=== PATIENT | male | born 1965 | race Caucasian/White ===

== ENCOUNTER 2021-07-28 14:36 | Outpatient (REF) | payer MEDICARE, MEDICAID, SELFPAY ==
--- NOTE | ~2021-07-28 | US_ITS ---
EXAMINATION: US PELVIS LIMITED (BLADDER) CLINICAL INFORMATION: Frequent voiding. COMPARISON: CT abdomen and pelvis 01/30/2020 TECHNIQUE: Real-time imaging of the bladder. FINDINGS: BLADDER: There is mild diffuse bladder wall thickening. No stone or mass is seen. Bilateral ureteral jets are demonstrated. Prevoid bladder volume is 161 mL. Postvoid bladder volume is 17.5 mL. US/US bladder IMPRESSION: Mild diffuse bladder wall thickening.
== END 2021-07-28 14:37 | disposition home or self-care (01) ==
LOC: HO.HMGCX 14:36
PROVIDERS: PCP Internal Medicine; Visit Provider Internal Medicine
DX: R35.0 Frequency of micturition (principal)
CPT/HCPCS: 76857

== ENCOUNTER 2021-07-29 13:07 | Outpatient (REF) | payer MEDICARE, MEDICAID, SELFPAY ==
--- NOTE | ~2021-07-29 | XR_ITS ---
EXAMINATION: BILATERAL KNEE X-RAY CLINICAL INFORMATION: Pain COMPARISON: Previous left knee x-ray April 2018 TECHNIQUE: 4 views each knee FINDINGS: Bone alignment is normal. No fracture or dislocation is seen. There is arthritis at the medial femoral tibial and patellofemoral joints with joint space narrowing and osteophyte formation, right greater than left. There are osteophytes at the quadriceps tendon insertion and patellar tendon origins bilaterally. There is a moderate right joint effusion. There is evidence of atherosclerotic disease. XR/XR knee LT 4V IMPRESSION: Bilateral arthritis, right greater than left. Right joint effusion.
--- NOTE | ~2021-07-29 | XR_ITS ---
EXAMINATION: BILATERAL KNEE X-RAY CLINICAL INFORMATION: Pain COMPARISON: Previous left knee x-ray April 2018 TECHNIQUE: 4 views each knee FINDINGS: Bone alignment is normal. No fracture or dislocation is seen. There is arthritis at the medial femoral tibial and patellofemoral joints with joint space narrowing and osteophyte formation, right greater than left. There are osteophytes at the quadriceps tendon insertion and patellar tendon origins bilaterally. There is a moderate right joint effusion. There is evidence of atherosclerotic disease. XR/XR knee RT 4V IMPRESSION: Bilateral arthritis, right greater than left. Right joint effusion.
== END 2021-07-29 13:08 | disposition home or self-care (01) ==
LOC: HO.HMGCX 13:07
PROVIDERS: PCP Internal Medicine; Visit Provider Internal Medicine
DX: M25.562 Pain in left knee (principal); M25.561 Pain in right knee; M17.0 Bilateral primary osteoarthritis of knee; M25.461 Effusion, right knee
CPT/HCPCS: 73564

== ENCOUNTER 2021-08-31 10:05 | Outpatient (REF) | payer MEDICARE, MEDICAID, SELFPAY ==
[2021-08-31 18:42] LABS: Fentanyl, urine POSITIVE (Not Detect)
== END 2021-08-31 10:06 | disposition home or self-care (01) ==
LOC: HO.LNP 10:05
PROVIDERS: Visit Provider Internal Medicine
DX: F11.20 Opioid dependence, uncomplicated (principal); Z79.899 Other long term (current) drug therapy
CPT/HCPCS: 80305; 80307; 99202

== ENCOUNTER 2022-01-29 12:50 | Emergency (ER) | payer MEDICARE, MEDICAID, SELFPAY ==
--- NOTE | ~2022-01-29 | CT_ITS ---
EXAMINATION: CT ABDOMEN AND PELVIS WITHOUT CONTRAST CLINICAL INFORMATION: Abdominal pain COMPARISON: 01/30/2020 TECHNIQUE: Multidetector volumetric imaging was performed from the lung bases through the pubic symphysis. Sagittal and coronal reformatted images were obtained on the technologist workstation. This CT examination was performed using dose optimization techniques as appropriate, variously including the following: *Automated exposure control *Adjustment of mA and/or kV according to patient size (this includes techniques or standardized protocols for targeted exams where dose is matched to indication/reason for exam; i.e. extremities or head) *Use of iterative reconstruction technique DLP 954 FINDINGS: The lack of intravenous contrast limits evaluation of the solid visceral organs including the liver, spleen, pancreas, and kidneys. LUNG BASES: The visualized lung bases are unremarkable. LIVER, GALLBLADDER, AND BILIARY TREE: Limited non-contrast evaluation is normal. No gross focal hepatic lesion. Normal liver size and contour. No gross biliary ductal dilation. Dependent gallstones in an otherwise normal gallbladder. PANCREAS: Diffuse atrophy of the pancreas. No mass or peripancreatic inflammatory changes. SPLEEN: Limited non-contrast evaluation is normal. ADRENAL GLANDS: Normal; no adrenal mass. KIDNEYS AND URETERS: There is a 1.2 cm hyperdense lesion in the medial cortex of the upper pole the left kidney, density 45 Hounsfield units. No calculi or hydronephrosis. GASTROINTESTINAL TRACT: There is subtle fat stranding of the central mesentery. ABDOMINAL WALL: There is some stranding in the right lower quadrant subcutaneous fat typically seen in the setting of subcutaneous injections. LYMPH NODES: No pathologically enlarged lymph nodes in the abdomen or pelvis. VASCULAR: Normal caliber abdominal aorta. BLADDER: Unremarkable. PELVIC VISCERA: Metallic structures in the region of the perineum could represent brachytherapy seeds. Prostate not well seen either diminutive or surgically absent. OSSEOUS STRUCTURES: Severe degenerative arthrosis of the bilateral hips and sacroiliac joints. Prior posterior spinal decompression at L5-S1 with posterolateral bone graft material. CT/CT abdomen pelvis wo con IMPRESSION: There is subtle fat stranding in the central mesentery. Mesenteric adenitis could give this appearance. There is a 1.2 cm hyperdense lesion of the upper pole the left kidney. This is new/increased in conspicuity from the prior study 01/30/2020. Although it could represent a hyperdense cyst, density is indeterminate. Recommend nonemergent renal protocol CT or MRI for definitive evaluation. Cholelithiasis but no evidence of acute cholecystitis.
[2022-01-29 12:58] VITALS: BP 194/93; PULSE 113; RESP 18; TEMP 36.6; O2SAT 94; BMI 38.3
[2022-01-29 14:51] LABS: MANUAL DIFF FLAG NO
[2022-01-29 14:53] LABS: Basophils Percent Auto 0.3 % (0-2); Eosinophils Absolute Auto 0.1 X10*3/uL (0.0-0.4); Eosinophils Percent Auto 0.6 % (0-4); Hematocrit 39.8 % (42.0-52.0); Hemoglobin 12.4 g/dl (14.0-18.0); Imm Gran Abs Auto 0.05 X10*3/uL (0.00-0.03); Imm Gran Pct Auto 0.4 % (0.0-0.4); Lymphocytes Absolute Auto 1.5 X10*3/uL (1.2-4.9); Lymphocytes Percent Auto 12.2 % (20-40); Mean Corpuscular HGB Conc 31.2 g/dl (31.0-36.0); Mean Corpuscular Hemoglobin 25.9 pg (27.0-33.0); Mean Corpuscular Volume 83.1 fL (80.0-98.0); Mean Platelet Volume 11.9 fL (9.4-12.4); Monocytes Absolute Auto 0.7 X10*3/uL (0.1-1.2); Monocytes Percent Auto 5.6 % (2-11); Neutrophils Absolute Auto 9.6 x10*3/uL (2.0-8.3); Neutrophils Percent Auto 80.9 % (45-73); Platelet Count 188 X10*3/uL (160-400); Red Blood Count 4.79 X10*6/uL (4.60-5.80); Red Cell Distribution Width 14.5 % (11.0-16.0); White Blood Count 11.9 X10*3/uL (4.8-10.8)
[2022-01-29 14:56] LABS: Appearance Urine CLEAR; Color Urine YELLOW; Glucose Urine UA >=1000 MG/DL (NEG); Leukocyte Esterase Urine NEG (NEG); Nitrite Urine NEG (NEG); Specific Gravity - Urine <= 1.005 (1.005-1.025); UACC Culture Trigger NO; Urine Blood TRACE (NEG); Urine Ketones NEG (NEG); Urine Protein 1+ MG/DL (NEG-TRACE)
[2022-01-29 15:08] LABS: UACC CULT YES; WBC Urine 30-49 /HPF (0-4)
[2022-01-29 15:09] LABS: Bacteria Urine TRACE /LPF
[2022-01-29 15:14] LABS: Alanine Aminotransferase 13 U/L (0-40); Albumin Level 3.8 g/dL (3.5-5.0); Alkaline Phosphatase 110 U/L (39-117); Anion Gap 12 (12-20); Aspartate Amino Transferase 11 U/L (5-37); Bilirubin Direct 0.2 mg/dL (0.0-0.5); Bilirubin Total 0.4 mg/dL (0.0-1.0); Blood Urea Nitrogen 12 mg/dL (9-16); Calcium 9.1 mg/dL (8.4-10.2); Carbon Dioxide 30 mmol/L (22-29); Chloride 92 mmol/L (96-108); Creatinine Clr Calc Pharmacy 83.8; Estimated Glomerular Filt Rate > 60; Glucose Random 507 mg/dL (60-115); Lipase 5 U/L (8-78); Potassium 4.6 mmol/L (3.3-5.1); Sodium 129 mmol/L (135-145); Total Protein 7.5 g/dL (6.5-8.0)
--- NOTE | 2022-01-29 15:38 | ED.GENADULT ---
HPI - General Adult General Chief complaint: Abdominal Pain Stated complaint: abd pain Time Seen by Provider: 01/29/22 15:37 Source: patient Mode of arrival: ambulatory Limitations: no limitations History of Present Illness HPI narrative: 56-year-old male with a past medical history of insulin-dependent diabetes, hypertension, hyperlipidemia, prostate cancer, and opioid use disorder, presents for 3 days of abdominal pain. A 9 patient also states he has dysuria. Patient did not take his insulin today. No fevers. No back pain, no flank pain. States the pain in his lower abdomen is 10/10 pain. No penile discharge, penile lesions, testicular pain. Patient also reports a painful rash in his perineum. Patient is nauseous. Denies blurry vision, headache, increased hunger, endorses polydipsia at night Related Data Previous Rx's Medication Instructions Recorded buprenorphine 8 mg-naloxone 2 mg 3 film sublingual DAILY 7 days #21 08/31/21 sublingual film (Suboxone) ea clonidine HCl 0.1 mg tablet 0.1 mg PO TID 7 days #21 tabs 08/31/21 hydroxyzine pamoate 25 mg capsule 25 mg PO TID PRN itching #21 caps 08/31/21 (Vistaril) naloxone 4 mg/actuation nasal 4 mg intranasal Q3M PRN opioid 08/31/21 spray (Narcan) overdose 30 days #2 ea cephalexin 500 mg capsule 500 mg PO QID 7 days #28 caps 01/29/22 clotrimazole 1 % topical cream 1 appl topical BID apply to rash 01/29/22 in groin 2 weeks #45 grams ibuprofen 600 mg tablet 600 mg PO TID 30 days #90 tabs 01/29/22 Allergies Allergy/AdvReac Type Severity Reaction Status Date / Time No Known Allergies Allergy Unverified 04/24/20 16:07 [No Known Allergies*] Review of Systems Constitutional: Constitutional: Denies body ache(s), Denies chills, Reports fatigue, Denies fever(s), Denies headache(s), Denies malaise and Denies weakness Eyes: Eyes: Denies blurry vision and Denies diplopia ENT: Denies vertigo, Denies dizziness, Denies otalgia, Denies headache(s), Denies mouth pain, Denies post nasal drip, Denies sinus pain and Denies sore throat Cardiovascular: Cardiovascular: Denies chest pain, Denies syncope, Denies leg edema, Denies lightheadedness, Denies Loss of Consciousness, Denies palpitations and Denies dyspnea Respiratory: Respiratory: Denies chest congestion, Denies cough and Denies dyspnea Gastrointestinal: Gastrointestinal: Reports abdominal pain, Denies melena, Denies hematochezia, Denies change in stool character, Denies coffee ground emesis, Denies constipation, Denies diarrhea, Reports nausea and Denies vomiting Genitourinary: Genitourinary: Reports dysuria, Denies flank pain, Denies scrotal swelling, Denies testicular mass, Denies testicular pain, Reports urinary frequency and Reports urinary urgency Musculoskeletal: Musculoskeletal: Reports no additional musculoskeletal complaints and Denies back pain Neurologic: Denies confusion, Denies vertigo, Denies dizziness, Denies syncope, Denies headache(s) and Denies weakness Psychiatric: Psychiatric: Denies anxiety, Denies confusion and Denies depression Endocrine: Endocrine: Reports fatigue and Denies palpitations [facility] Past Medical History [facility] Narrative: Insulin-dependent diabetic Social History Social History Advance Directives: No Advance Directives Information Provided: No Physical Exam ED Vital Signs: Vital Signs - 24 hr 01/29/22 12:58 01/29/22 16:00 01/29/22 17:54 Temperature 98 F 98.7 F 98.7 F Pulse Rate 113 H 88 91 Respiratory Rate 18 16 16 Blood Pressure 194/93 H 175/85 H 128/82 Pulse Oximetry 94 98 98 Oxygen Delivery Method Room Air Room Air Room Air BMI result Body Mass Index 38.3 Const General: no acute distress, alert and awake; No confusion Nutritional Appearance: obese morbidly obese Orientation/consciousness: patient oriented x3 and No confusion Limitations: no limitations [facility] Head: Yes normal to inspection, Yes normocephalic and Yes atraumatic Ears: hearing grossly normal bilaterally, external ears normal, TM's normal bilaterally and EAC's normal General nose exam: Normal external nose present Face and sinus: Yes normal facial exam and Yes sinuses nontender Mouth: Normal oral and palatal mucosa present Throat: Yes posterior oropharynx normal Eyes Conjunctivae: conjunctivae normal Pupils: Equal, round and reactive pupils present EOM: EOMs intact bilaterally Neck Neck: Yes full ROM, Yes no lymphadenopathy and Yes supple Resp Effort & Inspection: normal respiratory effort and able to speak in complete sentences Auscultation: clear to auscultation bilaterally, no crackles, no rales, no rhonchi and no wheezes Cardio Rate: regular rate Rhythm: regular rhythm Heart sounds: S1 normal heart sound present and S2 normal heart sound present GI Inspection: Yes Abdominal panniculus present, Yes obesity and Yes striae Palpation (GI): Soft to palpation, Tenderness to palpation present (GI) (diffusely), no guarding and not rigid Percussion: Yes normal to percussion Auscultation: normal bowel sounds General: Yes no CVA tenderness Penis: normal penis and circumcised Meatus: meatus normal and no meatla discharge Scrotum: scrotum normal Testes: Testes normal Male genitals images: 1. Red rash with satellite lesions Back/Spine/Pelvis Back: no CVA tenderness Skin Other: Erythematous rash with satellite lesions and central clearing in patient's posterior scrotum and perineal area Rashes: rashes noted Neuro General: patient oriented x3 and No confusion Cranial nerves: Yes Equal, round and reactive pupils present Extrem General: Yes normal to inspection and Yes full ROM Psych Appearance: grossly normal Affect: normal affect Attitude: cooperative Thought process: Normal thought process present Course Course Course Narrative: 56-year-old male presents with 3 days of abdominal pain, dysuria and urinary frequency, and rash in his perineum. Patient did not take his insulin today On exam, patient has a erythematous rash in his perineal area with satellite lesions extending into his inguinal creases. Looks like candidiasis. Patient has tenderness and guarding across his entire abdomen. Afebrile. Patient intitially tachycardic, HR and BP normalized during his stay A will get urine, labs, lipase, will rule out DKA with VBG, acetone, will rule out STEMI with EKG, will get CT abdomen Reevaluation(s) Reevaluation #1: Llabs are remarkable for an elevated white blood cell count of 11.9, blood sugar of 507, a sodium of 129 that is most likely pseudohyponatremia. EKG is unremarkable No anion gap, acetone is negative, patient has no urine ketones, normal venous blood gas. This is not DKA 30-49 white blood cells in urine with trace blood and trace bacteria with glucosuria. CT shows possible mesenteric adenitis, which would explain patient's abdominal pain. Gave insulin, morphine, Zofran, fluids. On reexamination, patient is feeling better. Blood sugar is still high at 325. Will give another liter NS, repeat BMP shows sodium is now 131, patient's corrected sodium would be 135 Will have patient follow-up with his primary care provider, for his, mesenteric ischemia, and candidiasis UTI follow up with Urology Signed patient out to Michelle Christopher NP, pending 1 more liter fluid and repeat POC blood glucose., CT/CT abdomen pelvis wo con IMPRESSION: There is subtle fat stranding in the central mesentery. Mesenteric adenitis could give this appearance. There is a 1.2 cm hyperdense lesion of the upper pole the left kidney. This is new/increased in conspicuity from the prior study 01/30/2020. Although it could represent a hyperdense cyst, density is indeterminate. Recommend nonemergent renal protocol CT or MRI for definitive evaluation. ? ? Cholelithiasis but no evidence of acute cholecystitis. Medical Decision Making Lab Data Result diagrams: 01/29/22 14:31 01/29/22 16:37 Labs: Lab Results 01/29/22 01/29/22 01/29/22 Range/Units 14:31 14:31 14:31 WBC 11.9 H (4.8-10.8) X10*3/uL RBC 4.79 (4.60-5.80) X10*6/uL Hgb 12.4 L (14.0-18.0) g/dl Hct 39.8 L (42.0-52.0) % MCV 83.1 (80.0-98.0) fL MCH 25.9 L (27.0-33.0) pg MCHC 31.2 (31.0-36.0) g/dl RDW 14.5 (11.0-16.0) % Plt Count 188 (160-400) X10*3/uL MPV 11.9 (9.4-12.4) fL Immature Gran % (Auto) 0.4 (0.0-0.4) % Neut % (Auto) 80.9 H (45-73) % Lymph % (Auto) 12.2 L (20-40) % Summers % (Auto) 5.6 (2-11) % Eos % (Auto) 0.6 (0-4) % Baso % (Auto) 0.3 (0-2) % Lymph # (Auto) 1.5 (1.2-4.9) X10*3/uL Summers # (Auto) 0.7 (0.1-1.2) X10*3/uL Eos # (Auto) 0.1 (0.0-0.4) X10*3/uL Baso # (Auto) 0.0 (0.0-0.2) X10*3/uL Abs Immat Gran (auto) 0.05 H (0.00-0.03) X10*3/uL Absolute Neuts (auto) 9.6 H (2.0-8.3) x10*3/uL Absolute Nucleated RBC 0.000 (0.0-0.012) X10*3/uL Nucleated RBC % (auto) 0.0 (0.0-0.2) /100WBC VBG pH (7.32-7.43) VBG pCO2 mmHg VBG pO2 mmHg VBG HCO3 (22-26) mmol/L VBG O2 Saturation % VBG Base Excess mmol/L Sodium 129 L (135-145) mmol/L Potassium 4.6 (3.3-5.1) mmol/L Chloride 92 L (96-108) mmol/L Carbon Dioxide 30 H (22-29) mmol/L Anion Gap 12 (12-20) BUN 12 (9-16) mg/dL Creatinine 1.17 (0.5-1.4) mg/dL Estim Creat Clear Calc 83.8 Estimated GFR > 60 POC Glucose (60-115) mg/dL Random Glucose 507 H* (60-115) mg/dL Calcium 9.1 (8.4-10.2) mg/dL Total Bilirubin 0.4 (0.0-1.0) mg/dL Direct Bilirubin 0.2 (0.0-0.5) mg/dL AST 11 (5-37) U/L ALT 13 (0-40) U/L Alkaline Phosphatase 110 (39-117) U/L Total Protein 7.5 (6.5-8.0) g/dL Albumin 3.8 (3.5-5.0) g/dL Lipase 5 L (8-78) U/L Urine Color YELLOW Urine Appearance CLEAR Urine pH 7.0 (5.0-8.0) Ur Specific [place] <= 1.005 (1.005-1.025) Urine Protein 1+ H (NEG-TRACE) MG/DL Urine Glucose (UA) >=1000 H (NEG) MG/DL Urine Ketones NEG (NEG) MG/DL Urine Blood TRACE (NEG) Urine Nitrite NEG (NEG) Ur Leukocyte Esterase NEG (NEG) Urine RBC 1-4 (0) /HPF Urine WBC 30-49 H (0-4) /HPF Ur Squamous Epith Cells NONE /LPF Urine Bacteria TRACE /LPF Urine Yeast TRACE /HPF Acetone, Qual (Negative) 01/29/22 01/29/22 01/29/22 Range/Units 16:24 16:37 16:37 WBC (4.8-10.8) X10*3/uL RBC (4.60-5.80) X10*6/uL Hgb (14.0-18.0) g/dl Hct (42.0-52.0) % MCV (80.0-98.0) fL MCH (27.0-33.0) pg MCHC (31.0-36.0) g/dl RDW (11.0-16.0) % Plt Count (160-400) X10*3/uL MPV (9.4-12.4) fL Immature Gran % (Auto) (0.0-0.4) % Neut % (Auto) (45-73) % Lymph % (Auto) (20-40) % Summers % (Auto) (2-11) % Eos % (Auto) (0-4) % Baso % (Auto) (0-2) % Lymph # (Auto) (1.2-4.9) X10*3/uL Summers # (Auto) (0.1-1.2) X10*3/uL Eos # (Auto) (0.0-0.4) X10*3/uL Baso # (Auto) (0.0-0.2) X10*3/uL Abs Immat Gran (auto) (0.00-0.03) X10*3/uL Absolute Neuts (auto) (2.0-8.3) x10*3/uL Absolute Nucleated RBC (0.0-0.012) X10*3/uL Nucleated RBC % (auto) (0.0-0.2) /100WBC VBG pH 7.36 (7.32-7.43) VBG pCO2 55 mmHg VBG pO2 37 mmHg VBG HCO3 31 H (22-26) mmol/L VBG O2 Saturation 55.0 % VBG Base Excess 4.9 mmol/L Sodium 131 L (135-145) mmol/L Potassium 4.6 (3.3-5.1) mmol/L Chloride 92 L (96-108) mmol/L Carbon Dioxide 31 H (22-29) mmol/L Anion Gap 13 (12-20) BUN 11 (9-16) mg/dL Creatinine 1.28 (0.5-1.4) mg/dL Estim Creat Clear Calc 76.6 Estimated GFR 58 POC Glucose (60-115) mg/dL Random Glucose 494 H* (60-115) mg/dL Calcium 9.3 (8.4-10.2) mg/dL Total Bilirubin (0.0-1.0) mg/dL Direct Bilirubin (0.0-0.5) mg/dL AST (5-37) U/L ALT (0-40) U/L Alkaline Phosphatase (39-117) U/L Total Protein (6.5-8.0) g/dL Albumin (3.5-5.0) g/dL Lipase (8-78) U/L Urine Color Urine Appearance Urine pH (5.0-8.0) Ur Specific [place] (1.005-1.025) Urine Protein (NEG-TRACE) MG/DL Urine Glucose (UA) (NEG) MG/DL Urine Ketones (NEG) MG/DL Urine Blood (NEG) Urine Nitrite (NEG) Ur Leukocyte Esterase (NEG) Urine RBC (0) /HPF Urine WBC (0-4) /HPF Ur Squamous Epith Cells /LPF Urine Bacteria /LPF Urine Yeast /HPF Acetone, Qual Negative (Negative) 01/29/22 Range/Units 17:53 WBC (4.8-10.8) X10*3/uL RBC (4.60-5.80) X10*6/uL Hgb (14.0-18.0) g/dl Hct (42.0-52.0) % MCV (80.0-98.0) fL MCH (27.0-33.0) pg MCHC (31.0-36.0) g/dl RDW (11.0-16.0) % Plt Count (160-400) X10*3/uL MPV (9.4-12.4) fL Immature Gran % (Auto) (0.0-0.4) % Neut % (Auto) (45-73) % Lymph % (Auto) (20-40) % Summers % (Auto) (2-11) % Eos % (Auto) (0-4) % Baso % (Auto) (0-2) % Lymph # (Auto) (1.2-4.9) X10*3/uL Summers # (Auto) (0.1-1.2) X10*3/uL Eos # (Auto) (0.0-0.4) X10*3/uL Baso # (Auto) (0.0-0.2) X10*3/uL Abs Immat Gran (auto) (0.00-0.03) X10*3/uL Absolute Neuts (auto) (2.0-8.3) x10*3/uL Absolute Nucleated RBC (0.0-0.012) X10*3/uL Nucleated RBC % (auto) (0.0-0.2) /100WBC VBG pH (7.32-7.43) VBG pCO2 mmHg VBG pO2 mmHg VBG HCO3 (22-26) mmol/L VBG O2 Saturation % VBG Base Excess mmol/L Sodium (135-145) mmol/L Potassium (3.3-5.1) mmol/L Chloride (96-108) mmol/L Carbon Dioxide (22-29) mmol/L Anion Gap (12-20) BUN (9-16) mg/dL Creatinine (0.5-1.4) mg/dL Estim Creat Clear Calc Estimated GFR POC Glucose 325 H (60-115) mg/dL Random Glucose (60-115) mg/dL Calcium (8.4-10.2) mg/dL Total Bilirubin (0.0-1.0) mg/dL Direct Bilirubin (0.0-0.5) mg/dL AST (5-37) U/L ALT (0-40) U/L Alkaline Phosphatase (39-117) U/L Total Protein (6.5-8.0) g/dL Albumin (3.5-5.0) g/dL Lipase (8-78) U/L Urine Color Urine Appearance Urine pH (5.0-8.0) Ur Specific [place] (1.005-1.025) Urine Protein (NEG-TRACE) MG/DL Urine Glucose (UA) (NEG) MG/DL Urine Ketones (NEG) MG/DL Urine Blood (NEG) Urine Nitrite (NEG) Ur Leukocyte Esterase (NEG) Urine RBC (0) /HPF Urine WBC (0-4) /HPF Ur Squamous Epith Cells /LPF Urine Bacteria /LPF Urine Yeast /HPF Acetone, Qual (Negative) ECG Data Interpretation: Sinus at a rate of 87, [place] interval 150, QRS 82, QTC 476, normal axis, no ST depression or elevation, T-wave changes Discharge Plan Discharge Clinical Impression: Acute hyperglycemia, Loretta infection of genital region, Acute mesenteric ischemia, Acute UTI Patient Disposition: Home, Self-Care Instructions: Urinary Tract Infection in Men (ED), Mesenteric Adenitis (ED), Skin Yeast Infection (ED) Additional Instructions: Please call Urology, I have referred you to them, but I want you to call them if you do not hear from them by Tuesday afternoon at the following number: [phone] You have a urinary tract infection, I have prescribed antibiotics to your pharmacy. You also have inflamed lymph nodes in your abdomen, I have prescribed ibuprofen for this. Please call your primary care provider for follow-up appointment to evaluate the resolution of your symptoms In addition, I have prescribed a cream for the rash below your scrotum. Please apply it twice a day. Also follow-up with your primary care provider for this issue Please take your insulin daily as prescribed, please drink plenty of fluids, please return to emergency room if you have chest pain, shortness of breath, worsening abdominal pain, or any other new or concerning symptoms Prescriptions: New clotrimazole 1 % cream 1 appl topical BID 14 Days Qty: 45 0RF cephalexin 500 mg capsule 500 mg PO QID 7 Days Qty: 28 0RF ibuprofen 600 mg tablet 600 mg PO TID 30 Days Qty: 90 0RF No Action buprenorphine-naloxone [Suboxone] 8-2 mg film 3 film sublingual DAILY 7 Days Qty: 21 0RF Rx Instructions: place 1 strip/tab under (each) side of tongue naloxone [Narcan] 4 mg/actuation spray,non-aerosol 4 mg intranasal Q3M PRN (Reason: opioid overdose) 30 Days Qty: 2 0RF Rx Instructions: spray 1 dose into ONE nostril; alternate nostrils w each dose until help arrives hydroxyzine pamoate [Vistaril] 25 mg capsule 25 mg PO TID PRN (Reason: itching) Qty: 21 1RF clonidine HCl 0.1 mg tablet 0.1 mg PO TID 7 Days Qty: 21 1RF Referrals: Johnny Chung MD [Physician] -
[2022-01-29 16:00] VITALS: BP 175/85; PULSE 88; RESP 16; TEMP 37.1; O2SAT 98
--- NOTE | 2022-01-29 16:08 | ECG_ITS ---
Test Reason : abd pain Blood Pressure : / mmHG Vent. Rate : 087 BPM Atrial Rate : 087 BPM P-R Int : 158 ms QRS Dur : 082 ms QT Int : 396 ms P-R-T Axes : 042 075 039 degrees QTc Int : 476 ms Normal sinus rhythm Normal ECG When compared with ECG of 30-JAN-2020 02:43, No significant change was found Referred By: Lani Flowers Electronically Signed By:AYAN WAGNER MD
[2022-01-29] MEDS: Insulin Regular, Human 100 UNIT/ML 3 ML VIAL 10 UNIT IVPUSH (16:24)
[2022-01-29] MEDS: 0.9 % Sodium Chloride 1,000 ML 999 ML IV ×2 (16:25→18:27)
[2022-01-29] MEDS: Morphine Sulfate 4 MG/ML CARTRIDGE IVPUSH (16:27)
[2022-01-29] MEDS: ondansetron HCL 4 MG/2 ML VIAL IVPUSH (16:27)
[2022-01-29 16:40] LABS: Venous Blood Gas Refer to POC result
[2022-01-29 16:42] LABS: VBG Base Excess 4.9 mmol/L; VBG HCO3 31 mmol/L (22-26); VBG pCO2 55 mmHg; VBG pH 7.36 (7.32-7.43); VBG pO2 37 mmHg
[2022-01-29 16:50] LABS: Acetone, serum QL Negative (Negative)
[2022-01-29 17:54] VITALS: BP 128/82; PULSE 91; RESP 16; TEMP 37.1; O2SAT 98
[2022-01-29 18:01] LABS: Glucose, Whole Blood 325 mg/dL (60-115)
[2022-01-29 18:05] LABS: Anion Gap 13 (12-20); Blood Urea Nitrogen 11 mg/dL (9-16); Calcium 9.3 mg/dL (8.4-10.2); Carbon Dioxide 31 mmol/L (22-29); Chloride 92 mmol/L (96-108); Creatinine Clr Calc Pharmacy 76.6; Estimated Glomerular Filt Rate 58; Glucose Random 494 mg/dL (60-115); Potassium 4.6 mmol/L (3.3-5.1); Sodium 131 mmol/L (135-145)
== END 2022-01-29 20:05 | disposition home or self-care (01) ==
PROVIDERS: Physician Assistant; Emergency Provider Emergency Medicine Emergency Medical Services; PCP Internal Medicine
DX: E11.65 Type 2 diabetes mellitus with hyperglycemia (principal); N39.0 Urinary tract infection, site not specified; K55.059 Acute (reversible) ischemia of intestine, part and extent unspecified; R10.9 Unspecified abdominal pain; R11.0 Nausea; R21 Rash and other nonspecific skin eruption; I10 Essential (primary) hypertension; Z79.4 Long term (current) use of insulin; Z79.899 Other long term (current) drug therapy
CPT/HCPCS: 36415; 74176; 80048; 80076; 81001; 82009; 82803; 82947; 83690; 85025; 87086; 93005; 96361; 96374; 96375; 99284; J2270; J2405

== ENCOUNTER 2022-02-01 11:21 | Emergency (ER) | payer MEDICARE, MEDICAID, SELFPAY ==
--- NOTE | 2022-02-01 | ECG_ITS ---
Test Reason : dizzy Blood Pressure : / mmHG Vent. Rate : 092 BPM Atrial Rate : 092 BPM P-R Int : 152 ms QRS Dur : 074 ms QT Int : 358 ms P-R-T Axes : 019 064 033 degrees QTc Int : 442 ms Normal sinus rhythm Normal ECG When compared with ECG of 29-JAN-2022 16:21, No significant change was found Referred By: Generic ED Physician Electronically Signed By:MORA REESE
[2022-02-01 12:07] VITALS: BP 174/91; PULSE 94; RESP 18; TEMP 36.8; O2SAT 99; BMI 36.8
--- NOTE | 2022-02-01 12:23 | PC.NURSE ---
Pt approached this RN to report: I forgot to tell you before, but I go to the Methadone clinic in [place] .
[2022-02-01] MEDS: Ondansetron ODT 4 MG TAB.RAPDIS TRANSLINGU (19:32)
[2022-02-01 19:52] LABS: MANUAL DIFF FLAG NO
[2022-02-01 19:57] LABS: Basophils Percent Auto 0.2 % (0-2); Eosinophils Absolute Auto 0.1 X10*3/uL (0.0-0.4); Eosinophils Percent Auto 0.4 % (0-4); Hematocrit 44.6 % (42.0-52.0); Imm Gran Abs Auto 0.03 X10*3/uL (0.00-0.03); Imm Gran Pct Auto 0.2 % (0.0-0.4); Lymphocytes Absolute Auto 1.7 X10*3/uL (1.2-4.9); Lymphocytes Percent Auto 13.3 % (20-40); Mean Corpuscular HGB Conc 31.4 g/dl (31.0-36.0); Mean Corpuscular Volume 82.7 fL (80.0-98.0); Mean Platelet Volume 11.5 fL (9.4-12.4); Monocytes Absolute Auto 0.7 X10*3/uL (0.1-1.2); Monocytes Percent Auto 5.5 % (2-11); Neutrophils Percent Auto 80.4 % (45-73); Platelet Count 223 X10*3/uL (160-400); Red Blood Count 5.39 X10*6/uL (4.60-5.80); Red Cell Distribution Width 14.7 % (11.0-16.0); White Blood Count 12.5 X10*3/uL (4.8-10.8)
--- NOTE | 2022-02-01 19:59 | PC.NURSE ---
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 Pt reports that he takes Methadone 65mg at 11am daily. Pt vomiting, was given Zofran. Reports the pain and nausea and dizziness are worse! cnc lathe machine operator (Debra Strickland) aware.
[2022-02-01 20:12] LABS: Alanine Aminotransferase 11 U/L (0-40); Alkaline Phosphatase 105 U/L (39-117); Anion Gap 14 (12-20); Aspartate Amino Transferase 14 U/L (5-37); Bilirubin Total 0.4 mg/dL (0.0-1.0); Blood Urea Nitrogen 7 mg/dL (9-16); Calcium 9.3 mg/dL (8.4-10.2); Carbon Dioxide 28 mmol/L (22-29); Chloride 99 mmol/L (96-108); Creatinine Clr Calc Pharmacy 92.3; Estimated Glomerular Filt Rate > 60; Glucose Random 231 mg/dL (60-115); Potassium 4.3 mmol/L (3.3-5.1); Sodium 137 mmol/L (135-145); Total Protein 8.1 g/dL (6.5-8.0)
[2022-02-01 20:18] LABS: Troponin-I High Sensitivity < 3.5 ng/L (<3.5-35.0)
== END 2022-02-01 21:00 | disposition left against medical advice (07) ==
PROVIDERS: Emergency Provider Emergency Medicine; PCP Internal Medicine
DX: R42 Dizziness and giddiness (principal); R51.9 Headache, unspecified; Z79.899 Other long term (current) drug therapy
CPT/HCPCS: 36415; 80053; 84484; 85025; 93005; 99281; 99283

== ENCOUNTER 2022-02-03 12:43 | Emergency (ER) | payer MEDICARE, MEDICAID, SELFPAY ==
[2022-02-03 13:25] VITALS: BP 150/93; PULSE 89; RESP 20; TEMP 36.3; O2SAT 98; BMI 36.8
[2022-02-03 16:10] LABS: MANUAL DIFF FLAG NO
[2022-02-03 16:15] LABS: Basophils Percent Auto 0.2 % (0-2); Eosinophils Percent Auto 0.4 % (0-4); Hematocrit 39.6 % (42.0-52.0); Hemoglobin 12.6 g/dl (14.0-18.0); Imm Gran Abs Auto 0.03 X10*3/uL (0.00-0.03); Imm Gran Pct Auto 0.3 % (0.0-0.4); Lymphocytes Percent Auto 18.7 % (20-40); Mean Corpuscular HGB Conc 31.8 g/dl (31.0-36.0); Mean Corpuscular Hemoglobin 26.3 pg (27.0-33.0); Mean Corpuscular Volume 82.7 fL (80.0-98.0); Monocytes Absolute Auto 0.8 X10*3/uL (0.1-1.2); Monocytes Percent Auto 7.2 % (2-11); Neutrophils Absolute Auto 7.8 x10*3/uL (2.0-8.3); Neutrophils Percent Auto 73.2 % (45-73); Platelet Count 245 X10*3/uL (160-400); Red Blood Count 4.79 X10*6/uL (4.60-5.80); Red Cell Distribution Width 14.6 % (11.0-16.0); White Blood Count 10.6 X10*3/uL (4.8-10.8)
[2022-02-03 16:49] LABS: Alanine Aminotransferase 9 U/L (0-40); Albumin Level 3.9 g/dL (3.5-5.0); Alkaline Phosphatase 96 U/L (39-117); Anion Gap 12 (12-20); Aspartate Amino Transferase 13 U/L (5-37); Bilirubin Total 0.5 mg/dL (0.0-1.0); Blood Urea Nitrogen 13 mg/dL (9-16); Calcium 9.2 mg/dL (8.4-10.2); Carbon Dioxide 30 mmol/L (22-29); Chloride 96 mmol/L (96-108); Creatinine Clr Calc Pharmacy 86.4; Estimated Glomerular Filt Rate > 60; Glucose Random 298 mg/dL (60-115); Lipase < 4 U/L (8-78); Potassium 5.1 mmol/L (3.3-5.1); Sodium 133 mmol/L (135-145); Total Protein 7.5 g/dL (6.5-8.0)
[2022-02-03 22:00] VITALS: BP 142/89; PULSE 101; RESP 15; TEMP 36.9; O2SAT 98
--- NOTE | 2022-02-03 22:27 | ED_ITS ---
HPI - Abdominal Pain General Chief Complaint: Abdominal Pain Stated Complaint: catscan, abd pain Source: patient Mode of arrival: ambulatory Limitations: no limitations History of Present Illness HPI narrative: 56-year-old male presents with abdominal pain, states that he feels like he is a football in his abdomen. Has had this feeling for approximately 2 weeks. He is requesting a CT scan of his abdomen. He does not report any fevers, chills, chest pain or pressure, palpitations, shortness of breath, shortness breath on exertion, dizziness, lightheadedness, or weakness. MD elicited complaint: abdominal pain Pertinent past history: past UTI Onset (ago): week(s) (2) Pain Consistency: constant Location: diffuse Severity: moderate Quality: aching and fullness Radiation: none Migration to: no migration Exacerbating factors: eating and movement Relieving factors: nothing Associated symptoms: denies other symptoms Related Data Previous Rx's Medication Instructions Recorded buprenorphine 8 mg-naloxone 2 mg 3 film sublingual DAILY 7 days #21 08/31/21 sublingual film (Suboxone) ea clonidine HCl 0.1 mg tablet 0.1 mg PO TID 7 days #21 tabs 08/31/21 hydroxyzine pamoate 25 mg capsule 25 mg PO TID PRN itching #21 caps 08/31/21 (Vistaril) naloxone 4 mg/actuation nasal 4 mg intranasal Q3M PRN opioid 08/31/21 spray (Narcan) overdose 30 days #2 ea cephalexin 500 mg capsule 500 mg PO QID 7 days #28 caps 01/29/22 clotrimazole 1 % topical cream 1 appl topical BID apply to rash 01/29/22 in groin 2 weeks #45 grams ibuprofen 600 mg tablet 600 mg PO TID 30 days #90 tabs 01/29/22 cefuroxime axetil 500 mg tablet 500 mg PO Q12H 7 days #14 tabs 02/03/22 Allergies Allergy/AdvReac Type Severity Reaction Status Date / Time No Known Allergies Allergy Verified 02/01/22 12:12 [No Known Allergies*] Review of Systems Review of Systems Constitutional: No Fever, No Chills ENT/Mouth: No Ear Pain, No Hoarseness, No sore throat Eyes: No Eye Pain, No Swelling, No Redness, No Foreign Body Cardiovascular: No Chest Pain, No SOB Respiratory: No Cough, No Dyspnea Gastrointestinal: Positive Nausea, positive Vomiting, No Diarrhea, positive abdominal Pain Genitourinary: No Dysuria, No Hematuria Musculoskeletal: No joint pain, No Myalgias, No Joint Swelling Skin: No Skin lacerations, No rash Neuro: No Weakness, No Numbness, No Paresthesias, No Loss of Consciousness, No Dizziness, No Headache Psych: No Anxiety/Panic, No Depression Heme/Lymph: no easy bruising, no Lymphadenopathy Endocrine: No Polyuria, No Polydipsia Yes all other systems are reviewed and are negative [facility] Past Medical History Attestation statement: The following information was validated with the patient. Source: old records reviewed Medical History Opioid use disorder Social History Social History Advance Directives: No Physical Exam ED Vital Signs: Vital Signs - 24 hr 02/03/22 13:25 02/03/22 22:00 Temperature 97.3 F 98.4 F Pulse Rate 89 101 H Respiratory Rate 20 15 Blood Pressure 150/93 H 142/89 H Pulse Oximetry 98 98 Oxygen Delivery Method Room Air Room Air BMI result Body Mass Index 36.8 Appearance: Alert. Oriented X3. No acute distress. Eyes: Pupils equal, round and reactive to light. Sclera nonicteric. ENT: Pharynx normal. Neck: Normal inspection. Neck supple. CVS: Normal heart rate and rhythm. Pulses normal. Respiratory: No respiratory distress. Breath sounds normal. Abdomen: Soft , morbidly obese, diffusely tender without rigidity or distention or rebound. Skin: Skin warm and dry. Normal skin color. Normal skin turgor. Extremities: No lower extremity edema. Gait well-balanced well coordinated. Neuro: No motor deficit. No sensory deficit. Cranial nerves 2-12 intact. Course Course Course Narrative: 56-year-old male presents to the emergency department requesting a CT scan of his abdomen and pelvis. States that he has had abdominal pain for approximately 2 weeks, and was referred to the emergency department by his primary care physician. His primary care physician could not see him today. Upon investigation of medical records, it was noted that he was evaluated on 01/29 and 01/31, with a CT scan of abdomen pelvis that showed mesenteric adenitis and was treated for UTI. He states that he is not taking any of his medications. He is looking for pain management. He does have a history of opioid abuse and is on buprenorphine. His CT scan was reviewed from 01/31 with some mild stranding consistent with possible mesenteric adenitis. His lab values are unremarkable, his white count has improved since his last visit on 01/31. I did offer to repeat CT scan of abdomen and pelvis per patient request, however he said that he is not interested because he was not offered pain management. At this time I do not feel narcotics are reasonable solution for this problem, and patient respectfully declined CT scan. Will treat with cefuroxime as it is twice a day versus Keflex which is 4 times per day. I feel that cefuroxime may improve his medication compliance. He does understand that he must stop taking the Keflex while taking the cefuroxime. RN also had multiple discussions with this patient, patient did verbalize understanding and agrees with plan. CT scan and fluids discontinued. MDM - Abdominal Pain Differential Diagnosis Differential diagnosis: Likely abdominal pain, acute appendicitis, calculus of kidney and constipation Medical Records Attestation: I reviewed the patient's medical records. Lab Data Attestation: I reviewed the patient's lab results. Result diagrams: 02/03/22 16:07 02/03/22 16:07 Labs: Lab Results 02/03/22 02/03/22 02/03/22 Range/Units 16:07 16:07 22:31 WBC 10.6 (4.8-10.8) X10*3/uL RBC 4.79 (4.60-5.80) X10*6/uL Hgb 12.6 L (14.0-18.0) g/dl Hct 39.6 L (42.0-52.0) % MCV 82.7 (80.0-98.0) fL MCH 26.3 L (27.0-33.0) pg MCHC 31.8 (31.0-36.0) g/dl RDW 14.6 (11.0-16.0) % Plt Count 245 (160-400) X10*3/uL MPV 11.0 (9.4-12.4) fL Immature Gran % (Auto) 0.3 (0.0-0.4) % Neut % (Auto) 73.2 H (45-73) % Lymph % (Auto) 18.7 L (20-40) % [place] % (Auto) 7.2 (2-11) % Eos % (Auto) 0.4 (0-4) % Baso % (Auto) 0.2 (0-2) % Lymph # (Auto) 2.0 (1.2-4.9) X10*3/uL [place] # (Auto) 0.8 (0.1-1.2) X10*3/uL Eos # (Auto) 0.0 (0.0-0.4) X10*3/uL Baso # (Auto) 0.0 (0.0-0.2) X10*3/uL Abs Immat Gran (auto) 0.03 (0.00-0.03) X10*3/uL Absolute Neuts (auto) 7.8 (2.0-8.3) x10*3/uL Absolute Nucleated RBC 0.000 (0.0-0.012) X10*3/uL Nucleated RBC % (auto) 0.0 (0.0-0.2) /100WBC Sodium 133 L (135-145) mmol/L Potassium 5.1 (3.3-5.1) mmol/L Chloride 96 (96-108) mmol/L Carbon Dioxide 30 H (22-29) mmol/L Anion Gap 12 (12-20) BUN 13 D (9-16) mg/dL Creatinine 1.11 (0.5-1.4) mg/dL Estim Creat Clear Calc 86.4 Estimated GFR > 60 Random Glucose 298 H (60-115) mg/dL Calcium 9.2 (8.4-10.2) mg/dL Total Bilirubin 0.5 (0.0-1.0) mg/dL AST 13 (5-37) U/L ALT 9 (0-40) U/L Alkaline Phosphatase 96 (39-117) U/L Total Protein 7.5 (6.5-8.0) g/dL Albumin 3.9 (3.5-5.0) g/dL Lipase < 4 L (8-78) U/L Urine Color YELLOW Urine Appearance CLEAR Urine pH 5.5 (5.0-8.0) Ur Specific [place] >= 1.030 H (1.005-1.025) Urine Protein 2+ H (NEG-TRACE) MG/DL Urine Glucose (UA) 500 H (NEG) MG/DL Urine Ketones 15 (NEG) MG/DL Urine Blood TRACE (NEG) Urine Nitrite NEG (NEG) Ur Leukocyte Esterase NEG (NEG) Urine RBC 0-2 (0) /HPF Urine WBC 0-2 (0-4) /HPF Ur Squamous Epith Cells 2+ /LPF Calcium Phosphate Cryst 1+ /LPF Urine Bacteria TRACE /LPF Granular Casts 0-2 /LPF Urine Mucus 2+ /LPF Urine Sperm NOTED Discharge Plan Discharge Clinical Impression: Acute mesenteric adenitis, Abdominal pain Patient Disposition: Home, Self-Care Instructions: Abdominal Pain (ED), Mesenteric Adenitis (ED) Additional Instructions: You were evaluated for abdominal pain. CT scan that was completed on 01/31/2022 indicates mesenteric adenitis. Your lab values are unremarkable. We are treating you with cefuroxime 500 mg twice a day for the next 7 days. Please take this antibiotic as directed. Follow-up with primary care provider as needed. Drink plenty of fluids. Thank you for choosing this emergency department for evaluation. Please follow-up with primary care physician as needed. Return to the emergency department for any new, concerning, or worsening symptoms. Prescriptions: New cefuroxime axetil 500 mg tablet 500 mg PO Q12H 7 Days Qty: 14 0RF No Action clotrimazole 1 % cream 1 appl topical BID 14 Days Qty: 45 0RF cephalexin 500 mg capsule 500 mg PO QID 7 Days Qty: 28 0RF ibuprofen 600 mg tablet 600 mg PO TID 30 Days Qty: 90 0RF buprenorphine-naloxone [Suboxone] 8-2 mg film 3 film sublingual DAILY 7 Days Qty: 21 0RF Rx Instructions: place 1 strip/tab under (each) side of tongue naloxone [Narcan] 4 mg/actuation spray,non-aerosol 4 mg intranasal Q3M PRN (Reason: opioid overdose) 30 Days Qty: 2 0RF Rx Instructions: spray 1 dose into ONE nostril; alternate nostrils w each dose until help arrives hydroxyzine pamoate [Vistaril] 25 mg capsule 25 mg PO TID PRN (Reason: itching) Qty: 21 1RF clonidine HCl 0.1 mg tablet 0.1 mg PO TID 7 Days Qty: 21 1RF Interventions: ED Discharge Assessment Last Done: 02/03/22 23:15 Discharge Date/Time: 02/03/22 23:15
[2022-02-03 22:43] LABS: Appearance Urine CLEAR; Color Urine YELLOW; Glucose Urine UA 500 MG/DL (NEG); Leukocyte Esterase Urine NEG (NEG); Nitrite Urine NEG (NEG); PH 5.5 (5.0-8.0); Specific Gravity - Urine >= 1.030 (1.005-1.025); UACC Culture Trigger NO; Urine Blood TRACE (NEG); Urine Ketones 15 MG/DL (NEG); Urine Protein 2+ MG/DL (NEG-TRACE)
[2022-02-03 23:44] LABS: Bacteria Urine TRACE /LPF; Calcium Phosphate Crystals Ur 1+ /LPF; Granular Casts Urine 0-2 /LPF; Mucus Urine 2+ /LPF; RBC Urine 0-2 /HPF (0); Sperm Urine NOTED; Squamous Epithelial Cell Urine 2+ /LPF; WBC Urine 0-2 /HPF (0-4)
== END 2022-02-03 23:15 | disposition home or self-care (01) ==
PROVIDERS: Emergency Provider Internal Medicine; PCP Internal Medicine
DX: R10.9 Unspecified abdominal pain (principal); R59.0 Localized enlarged lymph nodes; F11.20 Opioid dependence, uncomplicated
CPT/HCPCS: 36415; 80053; 81001; 81003; 83690; 85025; 96360; 99284

== ENCOUNTER 2022-04-04 16:41 | Inpatient (IN) | payer MEDICARE, MEDICAID, SELFPAY ==
--- NOTE | ~2022-04-04 | US_ITS ---
EXAMINATION: US Arterial Duplex Le Bi CLINICAL INFORMATION: Bilateral low extremity swelling. Left toe necrosis. COMPARISON: None TECHNIQUE: Color and spectral Doppler assessment was obtained through the arteries of both lower extremities. FINDINGS: RIGHT Peak systolic velocities (centimeters per second): MORTGAGE PROCESSOR: 126.0 cm/s Proximal profunda femoral artery: 115 Proximal SFA: 120 Mid SFA: 112 Distal SFA: 111 Popliteal artery: 106 FRAME STYLIST: 165 Waveforms: MORTGAGE PROCESSOR: Triphasic Proximal profunda femoral artery: Biphasic Proximal SFA: Triphasic Mid SFA: Triphasic Distal SFA: Triphasic Popliteal artery: Triphasic FRAME STYLIST: Triphasic Above findings indicate mild stenoses at the common femoral artery and posterior tibial artery LEFT Peak systolic velocities (centimeters per second): MORTGAGE PROCESSOR: 148 cm/s Proximal profunda femoral artery: 77 Proximal SFA: 168 Mid SFA: 184 Distal SFA: 138 Popliteal artery: 104 FRAME STYLIST: 162 Waveforms: MORTGAGE PROCESSOR: Triphasic Proximal profunda femoral artery: Biphasic Proximal SFA: Triphasic Mid SFA: Triphasic Distal SFA: Monophasic Popliteal artery: Triphasic FRAME STYLIST: Monophasic Above findings demonstrate mild stenoses at the common femoral artery, proximal superficial femoral artery, mid superficial femoral artery, distal superficial femoral artery, and posterior tibial artery. US/US arterial duplex LE BI IMPRESSION: Patency of the bilateral lower extremity arterial systems from the level of the common femoral arteries through the posterior tibial arteries with mild multifocal stenoses, left side greater than right.
--- NOTE | ~2022-04-04 | US_ITS ---
EXAMINATION: US VENOUS ULTRASOUND WITH DOPPLER LOWER EXTREMITY, BILATERAL CLINICAL INFORMATION: Right left leg pain and swelling. Left toe necrosis. Question DVT. COMPARISON: Bilateral lower extremity venous ultrasound 12/22/2018 TECHNIQUE: Ultrasound of the deep veins is performed from the hip to the calf with compression sonography and color and pulse Doppler assessment. Spectral analysis with color-flow imaging is performed. FINDINGS: RIGHT: There is normal venous compression and respiratory variation and augmented flow. The visualized common femoral vein, superficial femoral vein, profunda femoral vein, popliteal vein, and the trifurcation region shows no evidence of deep venous thrombosis. Small 4.8 x 0.9 x 2.3 cm Bakers cyst. LEFT: There is normal venous compression and respiratory variation and augmented flow. The visualized common femoral vein, superficial femoral vein, profunda femoral vein, popliteal vein, and the trifurcation region shows no evidence of deep venous thrombosis. There is no significant popliteal fossa cyst. 3 prominent left inguinal lymph nodes are identified, measuring 2.9 x 1.2 x 1.5 cm, 3.4 x 1.4 x 2.8 cm, and 1 x 1.1 x 1.1 cm. Lymph nodes demonstrate normal fatty da and are presumably reactive. If the patient's symptoms persist, followup ultrasound in 5 days 7 days might be of value to exclude proximal propagation from a non-visualized calf vein. US/US venous duplex LE IMPRESSION: 1. No DVT demonstrated in the bilateral lower extremities. 2. Prominent presumably reactive left inguinal lymph nodes. 3. Small right Coates's cyst.
--- NOTE | ~2022-04-04 | XR_ITS ---
EXAMINATION: XR CHEST CLINICAL INFORMATION: Lower extremity swelling with fourth and fifth toe necrosis. Preop COMPARISON: Chest x-ray 03/20/2019 TECHNIQUE: 2 views of the chest were obtained. FINDINGS: The lungs are clear. No airspace consolidation, pleural effusion, or pneumothorax. The cardiomediastinal silhouette is within normal limits. No acute osseous injury. XR/XR chest 2V IMPRESSION: Unremarkable examination.
--- NOTE | ~2022-04-04 | IR_ITS ---
PROCEDURE: IR INSERTION OF TUNNEL CATHETER CLINICAL INFORMATION: Kim for IV antibiotics. Renal dysfunction. COMPARISON: None. TECHNIQUE: Following explaining fluoroscopy and ultrasound-guided placement of Kim catheter with a left-sided approach, procedure, benefits and risks, a written consent was obtained. Patient was placed supine on fluoroscopy table in angiography suite and preliminary ultrasound imaging of the right and left neck was obtained. An optimal site was selected along the left neck and marked. The marked site was cleaned and draped in the usual sterile manner. 1% lidocaine was injected at the puncture site. Under sterile ultrasound guidance, a single wall needle was advanced and the left internal jugular vein was punctured. After obtaining venous return, a thin guidewire was advanced and placed in the SVC and needle withdrawn. A 5 Czech dilator with sheath was advanced over the guidewire and anchored to the drape with hemostats. Approximately 1 gauze length away from the left neck incision and the anterior chest wall, 1% lidocaine was injected. Sensorcaine with epinephrine was then injected along the subcutaneous tract from the left neck incision to the left anterior chest wall incision. Permacath attached to a blind tunneler was advanced from the left anterior chest wall to the left neck incision. The tunneler was then pulled from the left neck incision with the catheter. The catheter was initially flushed with saline. The existent left neck wire and the dilator were removed and a longer 0.035 J-wire was advanced through the sheath into the IVC under fluoroscopy guidance. A 5 Czech peel-away sheath with dilator was advanced over the guidewire. The guidewire and the dilator were removed. The Kim catheter was then advanced through the peel-away sheath into the SVC under fluoroscopy. The peel-away sheath was removed as the catheter was advanced. The tip of the catheter lies at the atriocaval junction. The PICC catheter was flushed with heparinized saline. Simple dressing was placed over the left anterior neck and the anterior chest wall incision sites. Patient tolerated the procedure extremely well. All elements of maximal sterile barrier technique followed including use of cap, mask, sterile gown, sterile gloves, a sterile full body drape and hand hygiene. Also followed skin preparation with 2% chlorhexidine for cutaneous antisepsis, and sterile ultrasound preparation with sterile gel and probe cover when applicable. Conscious sedation was utilized during the exam and patient monitored by IR nursing and the radiologist for 25 minutes. FINDINGS: On preliminary ultrasound imaging, there is widely patent jugular veins with the left jugular vein appearing slightly larger. A 42 cm long single-lumen 5 Czech Kim catheter was placed under ultrasound fluoroscopy guidance without immediate complications. IR/IR cvc insert central tunnel IMPRESSION: Successful insertion of 5 Czech tunneled Kim catheter under fluoroscopy and ultrasound. Fluoroscopy time: 0.9 minutes. Dose area product: 616 cGy-cm2.
--- NOTE | ~2022-04-04 | CT_ITS ---
EXAMINATION: CT FOOT WITHOUT CONTRAST, LEFT CLINICAL INFORMATION: Left/5th toe necrosis. COMPARISON: None TECHNIQUE: Multidetector volumetric imaging was obtained through the left foot without contrast material. Multiplanar reformatted images in coronal and sagittal orientations were submitted. This CT examination was performed using dose optimization techniques as appropriate, variously including the following: *Automated exposure control. *Adjustment of mA and/or kV according to patient size (this includes techniques or standardized protocols for targeted exams where dose is matched to indication/reason for exam; i.e. extremities or head). *Use of iterative reconstruction technique. DLP: 187 mGy-cm FINDINGS: There is gas throughout the subacromial soft tissues at the 4th toe in addition to intraosseous gas occupying the medullary canal at the middle phalanx and the base of the proximal phalanx. There is a transverse fracture through the proximal phalangeal head at the PIP joints with intra-articular extension. The dorsal cortex of the proximal phalangeal head appears eroded in this region. There is overlying soft tissue swelling and attenuation which may correspond to a wound or phlegmon. The gas extends proximally in the soft tissues around the extensor tendons of the 4th toe and in the plantar soft tissues around the plantar interosseous muscles and lumbricals to the level of the midfoot (TMT joints). No subcutaneous gas within the ankle and hindfoot. No discrete fluid collections are identified. There is diffuse atrophy and fatty replacement of the intrinsic foot musculature. Soft tissues are diffusely swollen and edematous throughout the foot and ankle. Aside from the 4th toe, the phalanges are unremarkable. No additional fractures are identified. There is mild multifocal osteoarthritis in the midfoot with non-uniform joint space narrowing and marginal osteophytes. More [id number] osteoarthritis in the talonavicular joint with cortical irregularity. Additional moderate osteoarthritis at the subtalar joint and [id number] osteoarthritis in the talocrural joint. 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 Large enthesopathic spurs are present at the Achilles tendon insertion and plantar fascial origin on the calcaneus. Calcific atherosclerosis. CT/CT foot LT wo con IMPRESSION: 1. Gas within the soft tissues of the 4th toe and within the medullary spaces of the proximal and middle phalanges, concerning for infection and/or necrosis. There is a superimposed fracture of the proximal phalanx at its distal margin. Focal osseous erosion of the proximal phalanx along its dorsal margin near the PIP joint raises the possibility of osteomyelitis. 2. No appreciable fluid collections on these images. Gas extends proximally along the extensor tendon to the level of the mid metatarsals and the flexor musculature to the level of the tarsometatarsal joints.
[2022-04-04 16:54] VITALS: BP 147/60; BP 176/90; PULSE 96; RESP 20; TEMP 37.1; O2SAT 95; O2SAT 96; BMI 35.2
[2022-04-04 17:03] LABS: Glucose, Whole Blood 267 mg/dL (60-115)
[2022-04-04 18:01] LABS: Basophils Percent Auto 0.2 % (0-2); Eosinophils Percent Auto 0.1 % (0-4); Hematocrit 28.3 % (42.0-52.0); Imm Gran Pct Auto 0.5 % (0.0-0.4); Lymphocytes Absolute Auto 0.8 X10*3/uL (1.2-4.9); Lymphocytes Percent Auto 4.3 % (20-40); Mean Corpuscular HGB Conc 31.8 g/dl (31.0-36.0); Mean Corpuscular Hemoglobin 26.3 pg (27.0-33.0); Mean Corpuscular Volume 82.7 fL (80.0-98.0); Mean Platelet Volume 10.1 fL (9.4-12.4); Monocytes Absolute Auto 0.9 X10*3/uL (0.1-1.2); Monocytes Percent Auto 4.8 % (2-11); Neutrophils Absolute Auto 16.8 x10*3/uL (2.0-8.3); Neutrophils Percent Auto 90.1 % (45-73); Platelet Count 306 X10*3/uL (160-400); Red Blood Count 3.42 X10*6/uL (4.60-5.80); Red Cell Distribution Width 13.8 % (11.0-16.0); SCAN SMEAR FLAG 1; White Blood Count 18.6 X10*3/uL (4.8-10.8)
--- NOTE | 2022-04-04 18:06 | ED_ITS ---
HPI - Extremity Problem General Chief complaint: Wound/Laceration Stated complaint: necrotic toe Time Seen by Provider: 04/04/22 17:06 Source: patient Mode of arrival: ambulatory Limitations: no limitations History of Present Illness HPI Narrative: 56-year-old male with a past medical history of insulin-dependent diabetes, hypertension, hyperlipidemia, prostate cancer in opioid use disorder presenting to the ED with complaints of 3 days of left 4th toe necrotic with foul odor with purulent discharge and erythema surrounding the rest of the foot going up to the leg and bilateral lower extremity edema. He denies any fevers, chills, dizziness, headaches, neck pain/stiffness, trouble swallowing or breathing, c hest pain or shortness of breath, dyspnea on exertion, orthopnea, palpitations, paresthesias, recent falls or trauma, nausea/vomiting/diarrhea constipation, black or bloody stools, recent travel or sick contacts, calf tenderness or any other complaints concerns or injuries at this time. MD Complaint: other (left Fourth toe necrotic/foul odor with lower extremity swelling bilaterally) Onset (ago): day(s) (3) Pain Consistency: constant Location: left and toe (Fourth toe) Severity scale (1-10): >10 Quality: aching and constant Radiation: proximal Relieving factors: nothing Exacerbating factors: range of motion, weight bearing, walking and palpation Associated symptoms: denies other symptoms Related Data Previous Rx's Medication Instructions Recorded buprenorphine 8 mg-naloxone 2 mg 3 film sublingual DAILY 7 days #21 08/31/21 sublingual film (Suboxone) ea clonidine HCl 0.1 mg tablet 0.1 mg PO TID 7 days #21 tabs 08/31/21 hydroxyzine pamoate 25 mg capsule 25 mg PO TID PRN itching #21 caps 08/31/21 (Vistaril) naloxone 4 mg/actuation nasal 4 mg intranasal Q3M PRN opioid 08/31/21 spray (Narcan) overdose 30 days #2 ea cephalexin 500 mg capsule 500 mg PO QID 7 days #28 caps 01/29/22 clotrimazole 1 % topical cream 1 appl topical BID apply to rash 01/29/22 in groin 2 weeks #45 grams ibuprofen 600 mg tablet 600 mg PO TID 30 days #90 tabs 01/29/22 cefuroxime axetil 500 mg tablet 500 mg PO Q12H 7 days #14 tabs 02/03/22 Allergies Allergy/AdvReac Type Severity Reaction Status Date / Time No Known Allergies Allergy Verified 02/01/22 12:12 [No Known Allergies*] Review of Systems Review of Systems: Constitutional : No Weight loss, No Fever, No Chills, No Night Sweats, No Fatigue, No Malaise ENT/Mouth : No Hearing loss, No Ear Pain, No Nasal Congestion, No Sinus Pain, No Hoarseness, No sore throat, No Rhinorrhea, No Swallowing Difficulty Eyes: No Eye Pain, No Swelling, No Redness, No Foreign Body, No Discharge, No Vision Changes Cardiovascular : No Chest Pain, No SOB, No Dyspnea on Exertion, No Orthopnea, + bilateral lower extremity Edema, No Palpitations Respiratory : No Cough, No Sputum, No Wheezing, No Smoke Exposure, No Dyspnea Gastrointestinal : No Nausea, No Vomiting, No Diarrhea, No Constipation, No abdominal Pain, No Hematochezia, No Melena Genitourinary : no irregular bleeding, No Dysuria, No Urinary Frequency, No Hematuria, No Urinary Incontinence, No Urgency, No Flank Pain, No Urinary Flow Changes, No Hesitancy Musculoskeletal : + left foot/leg/toe pains, No Myalgias, No Joint Swelling Skin : + necrotic told to left 4th toe, erythema to left foot going up the left leg, no additional skin lesions/rashes/necrosis noted Neuro : No Weakness, No Numbness, No Paresthesias, No Loss of Consciousness, No Dizziness, No Headache Psych : No Anxiety/Panic, No Depression, No SI/HI/AH/VH, No Social Issues, Heme/Lymph: No Bruising, No Bleeding,No Lymphadenopathy Endocrine : No Polyuria, No Polydipsia, No Temperature Intolerance Yes all other systems are reviewed and are negative [facility] Past Medical History Attestation statement: The following information was validated with the patient. Source: old records reviewed and nursing notes reviewed Medical History Diabetes Opioid use disorder Social History Social History Patient Tobacco Use Status: Never used Tobacco Use of substances other than those prescribed or required for medical reasons: No Advance Directives: No Advance Directives Information Provided: Yes Physical Exam Vital Signs: Vital Signs: Last Vital Signs Temp 98.6 F 04/04/22 20:07 Pulse 80 04/04/22 20:07 Resp 18 04/04/22 20:07 BP 123/71 04/04/22 20:07 Pulse Ox 95 04/04/22 20:07 O2 Del Method 04/04/22 18:36 BMI result Body Mass Index 35.2 vital signs have been reviewed as normal and appeared to be correct. Blood pressure 147/60. Heart rate normal. Respiration rate normal. Temperature normal. Oxygen saturation normal. Appearance: Alert. Oriented X3. No acute distress. Head: Normal external exam. Normocephalic. Atraumatic. Eyes: PERRLA. EOMI. Conjunctiva and sclera normal. Eyelids normal. ENT: Pharynx normal. Uvula midline. Moist mucous membranes. No lesions/ulcerations or masses noted on the tongue. Normal voice. No trismus noted. No drooling noted. No muffled voice noted. Neck: Normal inspection. Neck supple. FROM. No adenopathy. Thyroid Normal. No meningeal signs. No neck mass noted. CVS: Normal heart rate and rhythm. Heart sound normal. Pulses normal throughout. No murmurs/rales/gallops. Respiratory: No respiratory distress. Painless inspiration. Breath sounds normal. No wheezes/rales/rhonchi noted. No accessory muscle usage noted or decreased air movement noted. Abdomen: Soft and nontender. Nondistended. No guarding. No rigidity. Bowel sounds normal in all 4 quadrants. No distention noted. No organomegaly noted. No visible injury noted. Back: Full range of motion noted. Nontender. Skin: Skin warm and dry. Normal skin color. Normal skin turgor. No rashes/l esions/lacerations noted. Extremities: Patient bilateral lower extremity edema. To left foot patient has moderate erythema and to the left 4th toe the toe is completely necrotic extending proximally up the foot. On the sole of the foot the 5th toe appears necrotic. The sole of the foot at the metatarsal aspect patient has purulent discharge/abscess underlying the 2nd/3rd/4th and 5th toes. No calf tenderness noted bilaterally. Otherwise all other extremities exhibit normal range of motion nontender. Neuro: Oriented X 3. No motor deficit. No sensory deficit. Reflexes normal. Normal steady gait. No focal neuro deficits noted. CN's II-XII intact bilaterally? Vascular: + radial pulses/+ 2 distal pedal pulses/+2 dorsalis pedis b/l. Normal cap refill. No cyanosis noted to upper extremity nails and lower extremity toes nails. Course Course Course Narrative: 17:15pm - 56-year-old male with a past medical history of insulin-dependent diabetes, hypertension, hyperlipidemia, prostate cancer in opioid use disorder presenting to the ED with complaints of 3 days of left 4th toe necrotic with foul odor with purulent discharge and erythema surrounding the rest of the foot going up to the leg and bilateral lower extremity edema. On exam patient has necrotic 4th left toe and on the sole of the foot it appears to be extending into the 5th toe with purulent drainage underlying the 2nd/3nd/4th and 5th metatarsals. Plan: Will obtain labs, blood cultures, lactic acid, CT scan of left foot, chest x-ray, EKG. Start IV fluids, IV Zosyn and vancomycin and re-evaluate. Reevaluation(s) Reevaluation #1: - labs reviewed patient an elevated white blood cell count 93244. - Anemia with an H&H of 9.0/28.3 this is new when compared to prior. Although patient denies any bleeding. - ESR 114. - chloride 94 - carbon dioxide 30 - calcium 7.9 - alkaline phosphate 184 - CRP 29.90 - albumin 2.9 - Random glucose 267. - Lactic acid 1.2. - otherwise all other labs are within normal limits - chest x-ray within normal limits no acute processes noted. - CT scan of left foot revealed Gas within the soft tissues of the 4th toe and within the medullary spaces of the proximal and middle phalanges, concerning for infection and/or necrosis. There is a superimposed fracture of the proximal phalanx at its distal margin. Focal osseous erosion of the proximal phalanx along its dorsal margin near the PIP joint raises the possibility of osteomyelitis. - venous duplex ultrasound of left lower extremity negative for DVT although revealed left inguinal lymph nodes that are prominent and all small right Coates cyst. - therefore at this time Dr. Simmons will be admitting for surgery tonight patient understands agrees with this plan. - arterial ultrasound of left lower extremity still pending Dr. Simmons to follow this ultrasound. ? Time: 21:04 [facility] - Extremity (Nontraumatic) Medical Records Attestation: I reviewed the patient's medical records. Lab Data Attestation: I reviewed the patient's lab results. Result diagrams: 04/04/22 17:52 04/04/22 17:53 Labs: Lab Results 04/04/22 04/04/22 04/04/22 Range/Units 16:59 17:51 17:52 WBC 18.6 H (4.8-10.8) X10*3/uL RBC 3.42 L D (4.60-5.80) X10*6/uL Hgb 9.0 L D (14.0-18.0) g/dl Hct 28.3 L D (42.0-52.0) % MCV 82.7 (80.0-98.0) fL MCH 26.3 L (27.0-33.0) pg MCHC 31.8 (31.0-36.0) g/dl RDW 13.8 (11.0-16.0) % Plt Count 306 (160-400) X10*3/uL MPV 10.1 (9.4-12.4) fL Immature Gran % (Auto) 0.5 H (0.0-0.4) % Neut % (Auto) 90.1 H (45-73) % Lymph % (Auto) 4.3 L (20-40) % [place] % (Auto) 4.8 (2-11) % Eos % (Auto) 0.1 (0-4) % Baso % (Auto) 0.2 (0-2) % Lymph # (Auto) 0.8 L (1.2-4.9) X10*3/uL [place] # (Auto) 0.9 (0.1-1.2) X10*3/uL Eos # (Auto) 0.0 (0.0-0.4) X10*3/uL Baso # (Auto) 0.0 (0.0-0.2) X10*3/uL Abs Immat Gran (auto) 0.10 H (0.00-0.03) X10*3/uL Absolute Neuts (auto) 16.8 H (2.0-8.3) x10*3/uL Absolute Nucleated RBC 0.000 (0.0-0.012) X10*3/uL Nucleated RBC % (auto) 0.0 (0.0-0.2) /100WBC Smear Tech's Comments VERIFIED ESR (0-15) MM/HR PT (10.0-13.1) SEC INR (0.9-1.1) APTT (26.0-36.4) SEC Sodium (135-145) mmol/L Potassium (3.3-5.1) mmol/L Chloride (96-108) mmol/L Carbon Dioxide (22-29) mmol/L Anion Gap (12-20) BUN (9-16) mg/dL Creatinine (0.5-1.4) mg/dL Estim Creat Clear Calc Estimated GFR POC Glucose 267 H (60-115) mg/dL Random Glucose (60-115) mg/dL Lactic Acid 1.2 (0.5-2.0) mmol/L Calcium (8.4-10.2) mg/dL Magnesium (1.6-2.6) mg/dL Total Bilirubin (0.0-1.0) mg/dL AST (5-37) U/L ALT (0-40) U/L Alkaline Phosphatase (39-117) U/L Troponin I High Sens (<3.5-35.0) ng/L C-Reactive Protein (< or = 0.50) mg/dL B-Natriuretic Peptide (<100) pg/mL Total Protein (6.5-8.0) g/dL Albumin (3.5-5.0) g/dL COVID-19 (JOSE DAVID) (Negative) COVID-19 Clin Com 04/04/22 04/04/22 04/04/22 Range/Units 17:52 17:53 17:53 WBC (4.8-10.8) X10*3/uL RBC (4.60-5.80) X10*6/uL Hgb (14.0-18.0) g/dl Hct (42.0-52.0) % MCV (80.0-98.0) fL MCH (27.0-33.0) pg MCHC (31.0-36.0) g/dl RDW (11.0-16.0) % Plt Count (160-400) X10*3/uL MPV (9.4-12.4) fL Immature Gran % (Auto) (0.0-0.4) % Neut % (Auto) (45-73) % Lymph % (Auto) (20-40) % [place] % (Auto) (2-11) % Eos % (Auto) (0-4) % Baso % (Auto) (0-2) % Lymph # (Auto) (1.2-4.9) X10*3/uL [place] # (Auto) (0.1-1.2) X10*3/uL Eos # (Auto) (0.0-0.4) X10*3/uL Baso # (Auto) (0.0-0.2) X10*3/uL Abs Immat Gran (auto) (0.00-0.03) X10*3/uL Absolute Neuts (auto) (2.0-8.3) x10*3/uL Absolute Nucleated RBC (0.0-0.012) X10*3/uL Nucleated RBC % (auto) (0.0-0.2) /100WBC Smear Tech's Comments ESR 114 H (0-15) MM/HR PT 15.6 H (10.0-13.1) SEC INR 1.3 H (0.9-1.1) APTT 29.8 (26.0-36.4) SEC Sodium 135 (135-145) mmol/L Potassium 3.7 D (3.3-5.1) mmol/L Chloride 94 L (96-108) mmol/L Carbon Dioxide 30 H (22-29) mmol/L Anion Gap 15 (12-20) BUN 11 (9-16) mg/dL Creatinine 0.96 (0.5-1.4) mg/dL Estim Creat Clear Calc 97.8 Estimated GFR > 60 POC Glucose (60-115) mg/dL Random Glucose 282 H (60-115) mg/dL Lactic Acid (0.5-2.0) mmol/L Calcium 7.9 L D (8.4-10.2) mg/dL Magnesium 1.9 (1.6-2.6) mg/dL Total Bilirubin 0.3 (0.0-1.0) mg/dL AST 24 D (5-37) U/L ALT 23 (0-40) U/L Alkaline Phosphatase 184 H D (39-117) U/L Troponin I High Sens (<3.5-35.0) ng/L C-Reactive Protein 29.90 H (< or = 0.50) mg/dL B-Natriuretic Peptide (<100) pg/mL Total Protein 6.5 (6.5-8.0) g/dL Albumin 2.9 L D (3.5-5.0) g/dL COVID-19 (JOSE DAVID) (Negative) COVID-19 Clin Com 04/04/22 04/04/22 Range/Units 17:53 17:53 WBC (4.8-10.8) X10*3/uL RBC (4.60-5.80) X10*6/uL Hgb (14.0-18.0) g/dl Hct (42.0-52.0) % MCV (80.0-98.0) fL MCH (27.0-33.0) pg MCHC (31.0-36.0) g/dl RDW (11.0-16.0) % Plt Count (160-400) X10*3/uL MPV (9.4-12.4) fL Immature Gran % (Auto) (0.0-0.4) % Neut % (Auto) (45-73) % Lymph % (Auto) (20-40) % [place] % (Auto) (2-11) % Eos % (Auto) (0-4) % Baso % (Auto) (0-2) % Lymph # (Auto) (1.2-4.9) X10*3/uL [place] # (Auto) (0.1-1.2) X10*3/uL Eos # (Auto) (0.0-0.4) X10*3/uL Baso # (Auto) (0.0-0.2) X10*3/uL Abs Immat Gran (auto) (0.00-0.03) X10*3/uL Absolute Neuts (auto) (2.0-8.3) x10*3/uL Absolute Nucleated RBC (0.0-0.012) X10*3/uL Nucleated RBC % (auto) (0.0-0.2) /100WBC Smear Tech's Comments ESR (0-15) MM/HR PT (10.0-13.1) SEC INR (0.9-1.1) APTT (26.0-36.4) SEC Sodium (135-145) mmol/L Potassium (3.3-5.1) mmol/L Chloride (96-108) mmol/L Carbon Dioxide (22-29) mmol/L Anion Gap (12-20) BUN (9-16) mg/dL Creatinine (0.5-1.4) mg/dL Estim Creat Clear Calc Estimated GFR POC Glucose (60-115) mg/dL Random Glucose (60-115) mg/dL Lactic Acid (0.5-2.0) mmol/L Calcium (8.4-10.2) mg/dL Magnesium (1.6-2.6) mg/dL Total Bilirubin (0.0-1.0) mg/dL AST (5-37) U/L ALT (0-40) U/L Alkaline Phosphatase (39-117) U/L Troponin I High Sens 11.9 D (<3.5-35.0) ng/L C-Reactive Protein (< or = 0.50) mg/dL B-Natriuretic Peptide 66 (<100) pg/mL Total Protein (6.5-8.0) g/dL Albumin (3.5-5.0) g/dL COVID-19 (JOSE DAVID) Negative (Negative) COVID-19 Clin Com See Note Imaging Data Chest x-ray: Attestation: I personally reviewed and interpreted this imaging study as follows: Radiologist's impression: FINDINGS: The lungs are clear. No airspace consolidation, pleural effusion, or pneumothorax. The cardiomediastinal silhouette is within normal limits. No acute osseous injury. XR/XR chest 2V IMPRESSION: Unremarkable examination. CT scan of left foot: Attestation: I personally reviewed and interpreted this imaging study as follows: Radiologist's impression: FINDINGS: There is gas throughout the subacromial soft tissues at the 4th toe in addition to intraosseous gas occupying the medullary canal at the middle phalanx and the base of the proximal phalanx. There is a transverse fracture through the proximal phalangeal head at the PIP joints with intra-articular extension. The dorsal cortex of the proximal phalangeal head appears eroded in this region. There is overlying soft tissue swelling and attenuation which may correspond to a wound or phlegmon. The gas extends proximally in the soft tissues around the extensor tendons of the 4th toe and in the plantar soft tissues around the plantar interosseous muscles and lumbricals to the level of the midfoot (TMT joints). No subcutaneous gas within the ankle and hindfoot. No discrete fluid collections are identified. There is diffuse atrophy and fatty replacement of the intrinsic foot musculature. Soft tissues are diffusely swollen and edematous throughout the foot and ankle. Aside from the 4th toe, the phalanges are unremarkable. No additional fractures are identified. There is mild multifocal osteoarthritis in the midfoot with non-uniform joint space narrowing and marginal osteophytes. More upyb-[id number] osteoarthritis in the talonavicular joint with cortical irregularity. Additional moderate osteoarthritis at the subtalar joint and dzzn-ss-[id number] osteoarthritis in the talocrural joint. 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 Large enthesopathic spurs are present at the Achilles tendon insertion and plantar fascial origin on the calcaneus. Calcific atherosclerosis. CT/CT foot LT wo con IMPRESSION: 1. Gas within the soft tissues of the 4th toe and within the medullary spaces of the proximal and middle phalanges, concerning for infection and/or necrosis. There is a superimposed fracture of the proximal phalanx at its distal margin. Focal osseous erosion of the proximal phalanx along its dorsal margin near the PIP joint raises the possibility of osteomyelitis. ? 2. No appreciable fluid collections on these images. Gas extends proximally along the extensor tendon to the level of the mid metatarsals and the flexor musculature to the level of the tarsometatarsal joints. Venous duplex ultrasound of bilateral lower extremity: Attestation: I personally reviewed and interpreted this imaging study as follows: Radiologist's impression: FINDINGS: RIGHT: There is normal venous compression and respiratory variation and augmented flow. The visualized common femoral vein, superficial femoral vein, profunda femoral vein, popliteal vein, and the trifurcation region shows no evidence of deep venous thrombosis. ? Small 4.8 x 0.9 x 2.3 cm Bakers cyst. LEFT: There is normal venous compression and respiratory variation and augmented flow. The visualized common femoral vein, superficial femoral vein, profunda femoral vein, popliteal vein, and the trifurcation region shows no evidence of deep venous thrombosis. ? There is no significant popliteal fossa cyst. 3 prominent left inguinal lymph nodes are identified, measuring 2.9 x 1.2 x 1.5 cm, 3.4 x 1.4 x 2.8 cm, and 1 x 1.1 x 1.1 cm. Lymph nodes demonstrate normal fatty da and are presumably reactive. If the patient's symptoms persist, followup ultrasound in 5 days 7 days might be of value to exclude proximal propagation from a non-visualized calf vein. US/US venous duplex LE IMPRESSION: 1.? No DVT demonstrated in the bilateral lower extremities. 2.? Prominent presumably reactive left inguinal lymph nodes. 3.? Small right Coates's cyst. Critical Care Time Critical Care Time Critical Care Time: Yes Total Critical Care Time: 60 Attestation: I personally attest to this time spent taking care of the patient Discharge Plan Discharge Clinical Impression: Toe necrosis, Osteomyelitis Patient Disposition: Admitted As Inpatient
[2022-04-04 18:09] LABS: INTERNATIONAL NORM RATIO 1.3 (0.9-1.1); Prothrombin Time 15.6 SEC (10.0-13.1)
[2022-04-04 18:12] LABS: Partial Thromboplastin Time 29.8 SEC (26.0-36.4)
[2022-04-04 18:12] LABS: MANUAL DIFF FLAG SCAN
[2022-04-04 18:15] LABS: Lactic Acid 1.2 mmol/L (0.5-2.0)
[2022-04-04 18:18] LABS: Alanine Aminotransferase 23 U/L (0-40); Albumin Level 2.9 g/dL (3.5-5.0); Alkaline Phosphatase 184 U/L (39-117); Anion Gap 15 (12-20); Aspartate Amino Transferase 24 U/L (5-37); Bilirubin Total 0.3 mg/dL (0.0-1.0); Blood Urea Nitrogen 11 mg/dL (9-16); Calcium 7.9 mg/dL (8.4-10.2); Carbon Dioxide 30 mmol/L (22-29); Chloride 94 mmol/L (96-108); Creatinine Clr Calc Pharmacy 97.8; Estimated Glomerular Filt Rate > 60; Glucose Random 282 mg/dL (60-115); Magnesium 1.9 mg/dL (1.6-2.6); Potassium 3.7 mmol/L (3.3-5.1); Sodium 135 mmol/L (135-145); Total Protein 6.5 g/dL (6.5-8.0)
[2022-04-04 18:22] LABS: COVID-19 Test Negative (Negative); IDNOW Serial# 16C4AD1C
[2022-04-04 18:25] LABS: B Type Natriuretic Peptide 66 pg/mL (<100); Troponin-I High Sensitivity 11.9 ng/L (<3.5-35.0)
[2022-04-04] MEDS: Piperacillin Sodium/Tazobactam 2.25 GM in 0.9 % Sodium Chloride 50 ML IV (18:29)
[2022-04-04] MEDS: 0.9 % Sodium Chloride 1,983 ML 1983 ML IV (18:30)
[2022-04-04 18:34] LABS: Erythrocyte Sedimentation Rate 114 MM/HR (0-15)
[2022-04-04 18:35] LABS: SLIDE REVIEW VERIFIED
[2022-04-04 18:36] VITALS: BP 148/67; PULSE 91; RESP 18; O2SAT 97
[2022-04-04 20:07] VITALS: BP 123/71; PULSE 80; RESP 18; TEMP 37; O2SAT 95
--- NOTE | 2022-04-04 20:53 | P.HPGS_ITS ---
History of Present Illness History of Present Illness Date of Service: 04/04/22 Chief complaint: infection Narrative: Ulysses Acevedo is a 56 year old male who is diabetic who noticed yesterday his left toe was sick and it was worse today so he came into the ER. He denies any trauma to the area but has no sensation in the foot. He says his diabetes is usually well controlled. he says he does have pain in the left foot and it feels better hanging off the bed. he does not work. he has not had a wound on his foot before. Review of Systems Review of Systems: Yes all other systems are reviewed and are negative Constitutional: Constitutional: Reports as per [facility] Past Medical History Medical History Diabetes Opioid use disorder Social History Social History Patient Tobacco Use Status: Never used Tobacco Use of substances other than those prescribed or required for medical reasons: No Advance Directives: No Advance Directives Information Provided: Yes Travel History Ebola Risk: Travel/Contact With Anyone From Affected Area/s: No Has Patient Experienced Ebola Symptoms: No I have personally reviewed the patient's Ebola risk: No Recent Travel in [facility] Within the Last 8 Weeks: No Meds Allergies Allergy/AdvReac Type Severity Reaction Status Date / Time No Known Allergies Allergy Verified 02/01/22 12:12 [No Known Allergies*] Active Medications: Current Medications Pharmacy Consult (Consult Rx Perform Med Rec) 1 each MISCELLANE ONCE PRN PRN Reason: Consult order Physical Exam Vital Signs: Vital Signs: Last Vital Signs Temp 98.6 F 04/04/22 20:07 Pulse 80 04/04/22 20:07 Resp 18 04/04/22 20:07 BP 123/71 04/04/22 20:07 Pulse Ox 95 04/04/22 20:07 O2 Del Method 04/04/22 18:36 BMI result Body Mass Index 35.2 Const: General: cooperative and acute distress mild Orientation/consciousness: oriented to person, oriented to place and oriented to time HEENT: Head: Yes normal to inspection Resp: Auscultation: clear to auscultation bilaterally Cardio: Rate: regular rate Rhythm: regular rhythm Neuro: General: oriented to person, oriented to place and oriented to time Extrem: Other: right foot within normal limits - stron palpable Dp pulse, no sig swelling left foot and lower leg with swelling nd erythema - the 4th toe is gangrenous and with black dry color, the dorsal aspect of the foot is edematous no palpable DP , the plantar aspect shows erythema and discoloration along the metatarsal heads of 3-5 and boggy tissue, nontender but he has no sensation, he has bad odor coming from the foot Psych: Appearance: grossly normal Affect: normal affect Attitude: cooperative Thought process: Normal thought process present Results Results Labs: Short CBC 04/04/22 Range/Units 17:52 WBC 18.6 H (4.8-10.8) X10*3/uL Hgb 9.0 L D (14.0-18.0) g/dl Hct 28.3 L D (42.0-52.0) % Plt Count 306 (160-400) X10*3/uL BMP 04/04/22 17:53 Sodium 135 Potassium 3.7 D Chloride 94 L Carbon Dioxide 30 H BUN 11 Creatinine 0.96 Calcium 7.9 L D Liver Function 04/04/22 Range/Units 17:53 Total Bilirubin 0.3 (0.0-1.0) mg/dL AST 24 D (5-37) U/L ALT 23 (0-40) U/L Alkaline Phosphatase 184 H D (39-117) U/L Albumin 2.9 L D (3.5-5.0) g/dL Assessment and Plan (1) Diabetic infection of left foot: Status: Acute Plan 56 year old male with diabetic foot infection with CT scan showing gangrenous tissue of 4th toe and gas in plantar midfoot, wbc elevated t 18 - plan to take to the OR and do toe amp nd foot debridement. culture, iv antibx, glucose control, will need to review his arterial study on the left side as there is concern for compromise here too tonight we are dealing with the emergent gas gangrene infection pt understands and agrees with the above plan and wishes to proceed with amputa tion Quality Stroke Does the patient have a stroke diagnosis?: No VTE Prior VTE?: No VTE Risk Level:: Surgical - moderate VTE Device Contraindication: Treatment Not Indicated VTE Drug Contraindication: N/A - Med Ordered Procedures Date of Service Date of Service: 04/04/22
--- NOTE | 2022-04-04 20:57 | HO.ANESPROP2 ---
HPI - Anesthesia Eval Consult details Narrative: 4th toe gangrene PMFSH Active Problems Active Problems: All Active Problems (Updated 04/04/22 @ 18:46 by STACY Ross) Toe necrosis (Acute) Osteomyelitis (Acute) Opioid use disorder (Acute) Past Medical History Medical History Diabetes Opioid use disorder Family History Family history of problems with anesthesia: No Surgical History History of Problems with Anesthesia: No Social History Social History Patient Tobacco Use Status: Never used Tobacco Use of substances other than those prescribed or required for medical reasons: No Advance Directives: No Advance Directives Information Provided: Yes Meds Allergies Allergy/AdvReac Type Severity Reaction Status Date / Time No Known Allergies Allergy Verified 02/01/22 12:12 [No Known Allergies*] Active Medications: Current Medications Pharmacy Consult (Consult Rx Perform Med Rec) 1 each MISCELLANE ONCE PRN PRN Reason: Consult order Exam Exam Date and Time: April 04, 20222056 Height,Weight and Vital Signs: Height 5 ft 7 in Weight 102.058 kg Last Vital Signs Temp 98.6 F 04/04/22 20:07 Pulse 80 04/04/22 20:07 Resp 18 04/04/22 20:07 BP 123/71 04/04/22 20:07 Pulse Ox 95 04/04/22 20:07 O2 Del Method 04/04/22 18:36 Pertinent Lab Results Pertinent Lab Results: Laboratory Tests 04/04/22 04/04/22 04/04/22 16:59 17:51 17:52 WBC 18.6 H RBC 3.42 L D Hgb 9.0 L D Hct 28.3 L D MCV 82.7 MCH 26.3 L MCHC 31.8 RDW 13.8 Plt Count 306 MPV 10.1 Immature Gran % (Auto) 0.5 H Neut % (Auto) 90.1 H Lymph % (Auto) 4.3 L [place] % (Auto) 4.8 Eos % (Auto) 0.1 Baso % (Auto) 0.2 Lymph # (Auto) 0.8 L [place] # (Auto) 0.9 Eos # (Auto) 0.0 Baso # (Auto) 0.0 Abs Immat Gran (auto) 0.10 H Absolute Neuts (auto) 16.8 H Absolute Nucleated RBC 0.000 Nucleated RBC % (auto) 0.0 Smear Tech's Comments VERIFIED ESR PT INR APTT Sodium Potassium Chloride Carbon Dioxide Anion Gap BUN Creatinine Estim Creat Clear Calc Estimated GFR POC Glucose 267 H Random Glucose Lactic Acid 1.2 Calcium Magnesium Total Bilirubin AST ALT Alkaline Phosphatase Troponin I High Sens C-Reactive Protein B-Natriuretic Peptide Total Protein Albumin COVID-19 (JOSE DAVID) COVID-19 Clin Com 04/04/22 04/04/22 04/04/22 17:52 17:53 17:53 WBC RBC Hgb Hct MCV MCH MCHC RDW Plt Count MPV Immature Gran % (Auto) Neut % (Auto) Lymph % (Auto) [place] % (Auto) Eos % (Auto) Baso % (Auto) Lymph # (Auto) [place] # (Auto) Eos # (Auto) Baso # (Auto) Abs Immat Gran (auto) Absolute Neuts (auto) Absolute Nucleated RBC Nucleated RBC % (auto) Smear Tech's Comments ESR 114 H PT 15.6 H INR 1.3 H APTT 29.8 Sodium 135 Potassium 3.7 D Chloride 94 L Carbon Dioxide 30 H Anion Gap 15 BUN 11 Creatinine 0.96 Estim Creat Clear Calc 97.8 Estimated GFR > 60 POC Glucose Random Glucose 282 H Lactic Acid Calcium 7.9 L D Magnesium 1.9 Total Bilirubin 0.3 AST 24 D ALT 23 Alkaline Phosphatase 184 H D Troponin I High Sens C-Reactive Protein 29.90 H B-Natriuretic Peptide Total Protein 6.5 Albumin 2.9 L D COVID-19 (JOSE DAVID) COVID-19 Clin Com 04/04/22 04/04/22 17:53 17:53 WBC RBC Hgb Hct MCV MCH MCHC RDW Plt Count MPV Immature Gran % (Auto) Neut % (Auto) Lymph % (Auto) [place] % (Auto) Eos % (Auto) Baso % (Auto) Lymph # (Auto) [place] # (Auto) Eos # (Auto) Baso # (Auto) Abs Immat Gran (auto) Absolute Neuts (auto) Absolute Nucleated RBC Nucleated RBC % (auto) Smear Tech's Comments ESR PT INR APTT Sodium Potassium Chloride Carbon Dioxide Anion Gap BUN Creatinine Estim Creat Clear Calc Estimated GFR POC Glucose Random Glucose Lactic Acid Calcium Magnesium Total Bilirubin AST ALT Alkaline Phosphatase Troponin I High Sens 11.9 D C-Reactive Protein B-Natriuretic Peptide 66 Total Protein Albumin COVID-19 (JOSE DAVID) Negative COVID-19 Clin Com See Note Airway Mallampati Class: II TM Dist: >3cm Neck ROM: Full Loose/Missing/Broken Teeth: No Heart: RRR Lungs: CTA Assessment and Plan Assessment Anesthesia Assessment: Anesthesia Plan Discussed and Chart Reviewed Final Anesthetic Review Family History of Problems with Anesthesia: No History of Problems with Anesthesia: No NPO: Yes ASA Class: III and Emergency Final Preanesthetic Review: No Changes in Pt Med Stat, Meds/Allgs Chart Reviewed, Consent Obtained/Reviewed and Anes Risks/Benef Reviewed Patient Risk: Intermediate Procedure Risk: Low Anesthetic Plan Anesthetic Plan: MAC: Disposition: Standard PACU
[2022-04-04 22:25] VITALS: BP 95/56; PULSE 82; RESP 15; TEMP 36.6; O2SAT 100
[2022-04-04 22:40] VITALS: BP 137/66; PULSE 80; RESP 16; TEMP 36.9; O2SAT 95
--- NOTE | 2022-04-04 22:41 | P.OP_ITS ---
Operative Note Operative Note Date of Service: 04/04/22 Narrative: pre op- left diabetic foot infection with 4th toe postop- same procedure - ampuation of left 4th toe and debridement of plantar foot infection surgeon- sarah [facility] pt presented with elevated wbc and foot smelling with 4th left toe and plantar foot infection. now to OR pt came to OR and was sedated. left foot prepped and draped in standard fashion - the left 4th toe was ampuated with scalpel down to metatarsal bone and bone cutter used to cut the bone. went to viable helathy tissue. an area adjacent did track to plantar area. the plantar area was discolored and swollen and purplish so an area here along the 4th metarsal was opened up - some murky fluid released but not much of anything. no further tracking. the area was irrigated and a marge drain left along the track from the toe to the plantar area. the open toe area packed with betadine saline gazue and kerlex roll and MOAN. cx was taken of the toe and plantar area and sent. toe sent for pathology. pt tolerated the procedure well and instrument count and sharps correct at the end of the case pt returned stable to PACU
[2022-04-04 23:55] VITALS: BP 142/71; PULSE 76; RESP 18; TEMP 36.6; O2SAT 95
[2022-04-05] VITALS (7 sets, daily range): BP systolic 136–188; BP diastolic 58–90; PULSE 82–101; RESP 17–18; TEMP 36.3–37.4; O2SAT 95–97
[2022-04-05] MEDS: Enoxaparin Sodium 40 MG/0.4 ML SYRINGE SUBCUT ×2 (00:08→22:16)
[2022-04-05] MEDS: Piperacillin Sodium/Tazobactam 3.375 GM in 0.9 % Sodium Chloride 50 ML IV ×5 (00:09→23:33)
[2022-04-05] MEDS: 0.9 % Sodium Chloride Flush 3 ML SYRINGE IVFLUSH ×3 (00:09→15:31)
[2022-04-05] MEDS: oxyCODONE HCl Immed Release 5 MG TABLET 10 MG PO (02:20)
[2022-04-05] MEDS: ondansetron HCL 4 MG/2 ML VIAL IVPUSH ×2 (04:59→19:13)
[2022-04-05 05:01] LABS: Glucose, Whole Blood 171 mg/dL (60-115)
[2022-04-05 05:51] LABS: MANUAL DIFF FLAG NO
[2022-04-05 06:02] LABS: Basophils Percent Auto 0.2 % (0-2); Eosinophils Percent Auto 0.1 % (0-4); Hematocrit 27.6 % (42.0-52.0); Hemoglobin 8.7 g/dl (14.0-18.0); Imm Gran Abs Auto 0.14 X10*3/uL (0.00-0.03); Imm Gran Pct Auto 0.7 % (0.0-0.4); Lymphocytes Absolute Auto 0.9 X10*3/uL (1.2-4.9); Lymphocytes Percent Auto 4.5 % (20-40); Mean Corpuscular HGB Conc 31.5 g/dl (31.0-36.0); Mean Corpuscular Hemoglobin 26.5 pg (27.0-33.0); Mean Corpuscular Volume 84.1 fL (80.0-98.0); Mean Platelet Volume 10.8 fL (9.4-12.4); Monocytes Absolute Auto 1.1 X10*3/uL (0.1-1.2); Monocytes Percent Auto 5.9 % (2-11); Neutrophils Absolute Auto 16.8 x10*3/uL (2.0-8.3); Neutrophils Percent Auto 88.6 % (45-73); Platelet Count 309 X10*3/uL (160-400); Red Blood Count 3.28 X10*6/uL (4.60-5.80); White Blood Count 18.9 X10*3/uL (4.8-10.8)
[2022-04-05 06:09] LABS: Estimated Average Glucose 338 mg/dL; Hemoglobin A1c % 13.4 %
[2022-04-05 06:22] LABS: Anion Gap 15 (12-20); Blood Urea Nitrogen 12 mg/dL (9-16); Calcium 7.8 mg/dL (8.4-10.2); Carbon Dioxide 28 mmol/L (22-29); Chloride 99 mmol/L (96-108); Creatinine Clr Calc Pharmacy 74.5; Estimated Glomerular Filt Rate 59; Glucose Random 176 mg/dL (60-115); Potassium 3.8 mmol/L (3.3-5.1); Sodium 138 mmol/L (135-145)
[2022-04-05 07:26] LABS: Glucose, Whole Blood 227 mg/dL (60-115)
--- NOTE | 2022-04-05 08:24 | PHA.MEDREC ---
Pharmacy Consult ? Medication Reconciliation Pharmacy has completed the medication reconciliation. Patient is a poor historian. Does not know the names of his medications. Utilized claim history to complete med rec. Patient seemed confused or is not adherent to his medications, reported he Lantus is a sliding scale and the Novolog is his long acting that is 20-30 units. I entered the medication list based on long acting and short acting instead of how he reported it. Corinne Ramírez, MartinezD
[2022-04-05] MEDS: Insulin Lispro 100 UNIT/ML 3 ML VIAL SUBCUT ×4 (08:25→22:16)
--- NOTE | 2022-04-05 08:47 | HE.PHANOTE ---
Methadone Verification Pharmacy has received patient's methadone verification form from Umm Byers. Patient last received methadone 65 mg on 04/04/22 at [facility]. Dose confirmed with ASHELY Marie. Corinne Ramírez, MartinezD
--- NOTE | 2022-04-05 09:12 | HO.POSTANES ---
Post Anesthesia Evaluation Post Anesthesia Evaluation Vital Signs: Vital Signs Temp Pulse Resp BP Pulse Ox O2 Del Method O2 Flow Rate 04/05/22 07:11 98.1 F 83 18 136/64 97 Room Air 04/05/22 05:09 159/81 H 04/05/22 03:43 98.4 F 98 18 188/90 H 95 Room Air 04/04/22 23:55 98 F 76 18 142/71 H 95 Room Air 04/04/22 22:40 98.4 F 80 16 137/66 95 Room Air 04/04/22 22:25 97.8 F 82 15 95/56 L 100 Simple Mask 8 Anesthesia: Monitored Mental Status: Awake Pain Control: Satisfactory Nausea/Vomiting: None Hydration: Adequate Anesthesia-Related Issues: No Anes. Related Issues
--- NOTE | 2022-04-05 09:12 | MHC.CM.PN ---
IMM ADDRESSED, ORIGINAL TO PATIENT/YELLOW TO CHART PATIENT LIVES WITH HIS SPOUSE. WHO IS NOW INPATIENT AT [facility] NO HCP/WILL COMPLETE ONE USES CPAP MACHINE, CANE, WALKER, AND HAS DM EQUIPMENT DENIES HOME SERVICES [employer];D [employer] AND [employer] PCP: SHYLA COLIN [facility]HB[facility] TO TRANSPORT D/C PLAN: HOME SELF-CARE vs HOME WITH NEW [facility]
[2022-04-05] MEDS: methADONE HCl 20 MG/2 ML ORAL.CONC 65 MG PO (09:30)
--- NOTE | 2022-04-05 10:22 | PHA.PROG ---
Addendum entered by Natacha Chavez RPh 04/05/22 10:25: creatinine entered with wrong date originally; new predicted AUC will be 528 mg/L per the 750mg Q12H order Original Note: Admission Date/Time: April 04, 2022 18:50 Indication:kins Weight in k.058 kg Adjusted body weight in Kg: [place] body weight in Kg: Obesity Dosing Indication % IBW: Serum Creatinine - Last 168 Hours 04/04/22 04/05/22 17:53 05:03 Creatinine 0.96 1.26 Estimated CrCl and GFR - Last 168 Hours 04/04/22 04/05/22 17:53 05:03 Estim Creat Clear Calc 97.8 74.5 Estimated GFR > 60 59 Vancomycin Loading Dose: 2000mg Current Vancomycin Dosing Regimen: 750mg Q12 Vancomycin Monitoring using AUC goal of 400 - 600 range with trough as surrogate marker 410mg/L Date and Time for next Vancomycin Level to be drawn: 04/06/22 @0900 Pharmacist Comments on Vancomycin Plan: Using obese model. Pt's creatinine jumped up from yesterday, putting in the 750mg Q12 with trough to be drawn before 4th dose. Will continue to monitor and reassess Vancomycin dosing will take advantage of [employer] as a clinical decision support tool that uses Bayesian modeling to calculate individual patient's pharmacokinetic parameters and forecast the patient's drug concentration time course with the target goal AUC 24 range of 400 - 600 mg/L/hr.
[2022-04-05] MEDS: Insulin Glargine,Hum.rec.anlog 100 UNIT/ML 10 ML VIAL 15 UNIT SUBCUT (10:26)
[2022-04-05] MEDS: Lactated Ringers 1,000 ML 100 ML IVCONT ×2 (10:26→22:18)
--- NOTE | 2022-04-05 10:45 | HO.PM.IMCN ---
History of Present Illness Data of Consult Service Date: 04/05/22 Primary Care Provider: Twan Nunez MD HPI Reason for consult: DM / Med mgmt This is a 56 year old male with a PMH of insulin dependant DM and diabetic nephropathy, HTN, HLD, chronic methadone therapy who presented to [facility] on the evening of 04/04 with complaints of L foot drainage a nd discoloration. He was diagnosed with gas ganerene and was taken to the operative room emergently where he had amputation of the L 4th toe and debridement of the plantar foot infection. He has been treatment with vancomcyin/zoysn. Medical consult requested for DM and med mgmt. Pt seen and examined. He reports feeling better this AM compared to the last several days. Review of Systems Review of Systems: Negative except HPI/interval history. [facility] Medical History Diabetes Opioid use disorder Social History Household Members: Unknown / Unable to assess Housing: Unknown / Unable to assess Patient Tobacco Use Status: Never used Tobacco service: No Current occupational status: disabled Ebola Risk: Travel/Contact With Anyone From Affected Area/s: No Has Patient Experienced Ebola Symptoms: No Meds Allergies Allergy/AdvReac Type Severity Reaction Status Date / Time No Known Allergies Allergy Verified 02/01/22 12:12 [No Known Allergies*] Active Medications: Current Medications Acetaminophen (Acetaminophen 325 Mg Tablet) 650 mg PO Q6H PRN PRN Reason: Pain, Moderate (Pain Scale 4-6 Atorvastatin Calcium (Atorvastatin Calcium 10 Mg Tablet) 10 mg PO DAILY [facility] Dextrose (Dextrose 50 % 25 Gm/50 Ml Syringe) 25 gm IVPUSH Q15M PRN; Protocol PRN Reason: per Hypoglycemia Standing Ord. Enoxaparin Sodium (Enoxaparin Sodium 40 Mg/0.4 Ml Syringe) 40 mg SUBCUT Q24H [facility] Last Admin: 04/05/22 00:08 Dose: 40 mg Fentanyl (Fentanyl Citrate/Pf 100 Mcg/2 Ml Vial) 50 mcg IVPUSH Q5M PRN; Protocol PRN Reason: Pain, Severe (Pain Scale 7-10) Glucose (Glucose Gel 15 Gm Gel..Gram.) 15 gm PO Q15M PRN; Protocol PRN Reason: per Hypoglycemia Standing Ord. Hydromorphone HCl (Hydromorphone Hcl 0.5 Mg/0.5 Ml Syringe) 0.5 mg IVPUSH Q5M PRN; Protocol PRN Reason: Pain, Severe (Pain Scale 7-10) Hydroxyzine HCl (Hydroxyzine Hcl 25 Mg Tablet) 25 mg PO TID PRN PRN Reason: itching Promethazine HCl 12.5 mg/ (Sodium Chloride) 50.5 mls @ 202 mls/hr IV ONCE PRN PRN Reason: Nausea and Vomiting Piperacillin Sod/Tazobactam (Sod 3.375 gm/ Sodium Chloride) 50 mls @ 100 mls/hr IV Q6H [facility] Last Infusion: 04/05/22 05:57 Dose: Infused Lactated Ringer's (Lr) 1,000 mls @ 100 mls/hr IVCONT .Q10H [facility] Stop: 04/06/22 06:14 Last Admin: 04/05/22 10:26 Dose: 100 mls/hr Vancomycin HCl 750 mg/ Sodium (Chloride) 265 mls @ 265 mls/hr IV Q12H [facility] Insulin Glargine (Insulin Glargine,Hum.Rec.Anlog 100 Unit/Ml 10 Ml Vial) 15 unit SUBCUT DAILY [facility] Last Admin: 04/05/22 10:26 Dose: 15 unit Insulin Human Lispro (Insulin Lispro 100 Unit/Ml 3 Ml Vial) 0 unit SUBCUT QIDACHS [facility]; Protocol Stop: 04/05/22 22:37 Last Admin: 04/05/22 08:25 Dose: 4 unit Methadone HCl (Methadone Hcl 20 Mg/2 Ml Oral.Conc) 65 mg PO DAILY [facility] Last Admin: 04/05/22 09:30 Dose: 65 mg Omeprazole (Omeprazole 20 Mg Capsule.Dr) 20 mg PO DAILY@0630 [facility] Ondansetron HCl (Ondansetron Hcl 4 Mg/2 Ml Vial) 4 mg IVPUSH Q8H PRN PRN Reason: Nausea and Vomiting Last Admin: 04/05/22 04:59 Dose: 4 mg Pharmacy Consult (Consult Rx Perform Med Rec) 1 each MISCELLANE ONCE PRN PRN Reason: Consult order Pharmacy Consult (Consult Rx Vancomycin Dosing) 1 each MISCELLANE DAILY PRN PRN Reason: Consult order Sodium Chloride (0.9 % Sodium Chloride Flush 3 Ml Syringe) 3 ml IVFLUSH QSHIFT [facility] Last Admin: 04/05/22 08:25 Dose: 3 ml Home Medications Medication Instructions Recorded Confirmed Last Taken Type atorvastatin 10 mg tablet 1 tab PO DAILY 04/05/22 04/05/22 Unknown History insulin aspart U-100 100 unit/mL 0 sliding scale dose subcut QIDACHS 04/05/22 04/05/22 Unknown History (3 mL) subcutaneous pen (Novolog Flexpen U-100 Insulin aspart) insulin glargine 100 unit/mL (3 20 - 30 unit subcut DAILY 04/05/22 04/05/22 Unknown History mL) subcutaneous pen (Lantus Solostar U-100 Insulin) lisinopril 20 mg tablet 20 mg PO DAILY 04/05/22 04/05/22 Unknown History metformin 1,000 mg tablet 1,000 mg PO BID 04/05/22 04/05/22 Unknown History methadone 10 mg/5 mL oral solution 65 mg PO DAILY 04/05/22 04/05/22 04/04/22 History omeprazole 20 mg capsule,delayed 20 mg PO DAILY 04/05/22 04/05/22 Unknown History release Physical Exam Vital Signs and Narrative: Vital Signs: Last Vital Signs Temp 98.1 F 04/05/22 07:11 Pulse 83 04/05/22 07:11 Resp 18 04/05/22 07:11 BP 136/64 04/05/22 07:11 Pulse Ox 97 04/05/22 07:11 O2 Del Method 04/05/22 07:11 O2 Flow Rate 8 04/04/22 22:25 BMI result Body Mass Index 35.2 Const: Other: General - no acute distress, appears comfortable Cardiovascular - regular rate and rhythm, S1-S2 Lungs - normal respiratory effort, clear to auscultation bilaterally, no wheezing Abdomen - soft, nontender, no rebound or guarding Extremities - LLE in dressing / mona wrap Neuro - awake and alert, no focal deficits Results Labs CBC and Chem 7: 04/05/22 05:03 04/05/22 05:03 Labs: Laboratory Results - last 24 hr 04/04/22 04/04/22 04/04/22 16:59 17:51 17:52 MCV 82.7 MCH 26.3 L MCHC 31.8 RDW 13.8 Plt Count 306 MPV 10.1 Immature Gran % (Auto) 0.5 H Neut % (Auto) 90.1 H Lymph % (Auto) 4.3 L Rankin % (Auto) 4.8 Eos % (Auto) 0.1 Baso % (Auto) 0.2 Lymph # (Auto) 0.8 L Rankin # (Auto) 0.9 Eos # (Auto) 0.0 Baso # (Auto) 0.0 Abs Immat Gran (auto) 0.10 H Absolute Neuts (auto) 16.8 H Absolute Nucleated RBC 0.000 Nucleated RBC % (auto) 0.0 Smear Tech's Comments VERIFIED ESR PT INR APTT Anion Gap Estim Creat Clear Calc Estimated GFR POC Glucose 267 H Random Glucose Estimat Average Glucose Hemoglobin A1c % Lactic Acid 1.2 Calcium Magnesium Total Bilirubin AST ALT Alkaline Phosphatase C-Reactive Protein B-Natriuretic Peptide Total Protein Albumin COVID-19 (JOSE DAVID) COVID-19 Stance 04/04/22 04/04/22 04/04/22 17:52 17:53 17:53 MCV MCH MCHC RDW Plt Count MPV Immature Gran % (Auto) Neut % (Auto) Lymph % (Auto) Rankin % (Auto) Eos % (Auto) Baso % (Auto) Lymph # (Auto) Rankin # (Auto) Eos # (Auto) Baso # (Auto) Abs Immat Gran (auto) Absolute Neuts (auto) Absolute Nucleated RBC Nucleated RBC % (auto) Smear Tech's Comments ESR 114 H PT 15.6 H INR 1.3 H APTT 29.8 Anion Gap 15 Estim Creat Clear Calc 97.8 Estimated GFR > 60 POC Glucose Random Glucose 282 H Estimat Average Glucose Hemoglobin A1c % Lactic Acid Calcium 7.9 L D Magnesium 1.9 Total Bilirubin 0.3 AST 24 D ALT 23 Alkaline Phosphatase 184 H D C-Reactive Protein 29.90 H B-Natriuretic Peptide Total Protein 6.5 Albumin 2.9 L D COVID-19 (JOSE DAVID) COVID-19 Stance 04/04/22 04/04/22 04/05/22 17:53 17:53 04:57 MCV MCH MCHC RDW Plt Count MPV Immature Gran % (Auto) Neut % (Auto) Lymph % (Auto) Rankin % (Auto) Eos % (Auto) Baso % (Auto) Lymph # (Auto) Rankin # (Auto) Eos # (Auto) Baso # (Auto) Abs Immat Gran (auto) Absolute Neuts (auto) Absolute Nucleated RBC Nucleated RBC % (auto) Smear Tech's Comments ESR PT INR APTT Anion Gap Estim Creat Clear Calc Estimated GFR POC Glucose 171 H Random Glucose Estimat Average Glucose Hemoglobin A1c % Lactic Acid Calcium Magnesium Total Bilirubin AST ALT Alkaline Phosphatase C-Reactive Protein B-Natriuretic Peptide 66 Total Protein Albumin COVID-19 (JOSE DAVID) Negative COVID-19 Clin Com See Note 04/05/22 04/05/22 04/05/22 05:03 05:03 05:03 MCV 84.1 MCH 26.5 L MCHC 31.5 RDW 14.0 Plt Count 309 MPV 10.8 Immature Gran % (Auto) 0.7 H Neut % (Auto) 88.6 H Lymph % (Auto) 4.5 L Rankin % (Auto) 5.9 Eos % (Auto) 0.1 Baso % (Auto) 0.2 Lymph # (Auto) 0.9 L Rankin # (Auto) 1.1 Eos # (Auto) 0.0 Baso # (Auto) 0.0 Abs Immat Gran (auto) 0.14 H Absolute Neuts (auto) 16.8 H Absolute Nucleated RBC 0.000 Nucleated RBC % (auto) 0.0 Smear Tech's Comments ESR PT INR APTT Anion Gap 15 Estim Creat Clear Calc 74.5 Estimated GFR 59 POC Glucose Random Glucose 176 H D Estimat Average Glucose 338 Hemoglobin A1c % 13.4 Lactic Acid Calcium 7.8 L Magnesium Total Bilirubin AST ALT Alkaline Phosphatase C-Reactive Protein B-Natriuretic Peptide Total Protein Albumin COVID-19 (JOSE DAVID) COVID-19 Clin Com 04/05/22 07:13 MCV MCH MCHC RDW Plt Count MPV Immature Gran % (Auto) Neut % (Auto) Lymph % (Auto) Rankin % (Auto) Eos % (Auto) Baso % (Auto) Lymph # (Auto) Rankin # (Auto) Eos # (Auto) Baso # (Auto) Abs Immat Gran (auto) Absolute Neuts (auto) Absolute Nucleated RBC Nucleated RBC % (auto) Smear Tech's Comments ESR PT INR APTT Anion Gap Estim Creat Clear Calc Estimated GFR POC Glucose 227 H Random Glucose Estimat Average Glucose Hemoglobin A1c % Lactic Acid Calcium Magnesium Total Bilirubin AST ALT Alkaline Phosphatase C-Reactive Protein B-Natriuretic Peptide Total Protein Albumin COVID-19 (JOSE DAVID) COVID-19 Clin Com Imaging Radiologist's Impressions: Impressions Chest X-Ray 04/04/22 17:21 IMPRESSION: Unremarkable examination. Foot CT 04/04/22 17:48 IMPRESSION: 1. Gas within the soft tissues of the 4th toe and within the medullary spaces of the proximal and middle phalanges, concerning for infection and/or necrosis. There is a superimposed fracture of the proximal phalanx at its distal margin. Focal osseous erosion of the proximal phalanx along its dorsal margin near the PIP joint raises the possibility of osteomyelitis. 2. No appreciable fluid collections on these images. Gas extends proximally along the extensor tendon to the level of the mid metatarsals and the flexor musculature to the level of the tarsometatarsal joints. Duplex Scan Lower Extremity Artery 04/04/22 18:30 IMPRESSION: Patency of the bilateral lower extremity arterial systems from the level of the common femoral arteries through the posterior tibial arteries with mild multifocal stenoses, left side greater than right. Venous Duplex 04/04/22 18:30 IMPRESSION: 1. No DVT demonstrated in the bilateral lower extremities. 2. Prominent presumably reactive left inguinal lymph nodes. 3. Small right Coates's cyst. Assessment and Plan (1) Diabetic infection of left foot: Status: Acute Plan 56 year old male with a PMH of insulin dependant DM who is admitted under to the general surgical services for diabetic foot infection. Medical consult requested for mgmt of DM + med mgmt. 1. Diabetic foot infection / gas gangrene - Left s/p amp 4th toe + debridement Now on zosyn; will add vancomcyin (pharmacy to guide dosing) follow culture data Will consult ID as he may need fdc IV antibiotics. 2. AMY, stage 1 SCr was 0.9 yesterday, 1.26 this AM likely due to #1 Hold MONA, renally dose meds will given 2L LR @ 100 cc/hr; repeat chem tomorrow 3. Acute anemia likely due to acute illness, no evidence of thao bleeding at this time check iron/folate/b12 monitor 4. DM basal+ bolus ADA diet 5. HTN normotensive off meds today, hold mona in light of #2 6. Chronic opiate dependence continue methadone Will follow with you.
[2022-04-05] MEDS: vancomycin HCL 750 MG in 0.9 % Sodium Chloride 250 ML 265 MG IV ×2 (11:05→22:17)
[2022-04-05 11:27] LABS: Glucose, Whole Blood 310 mg/dL (60-115)
[2022-04-05 12:08] LABS: Iron 12 mcg/dL (45-160); Percent Iron Saturation 8 % (15-50); Total Iron Binding Capacity 159 mcg/dL (228-428); Unsaturated Iron Binding 147 ug/dL
[2022-04-05 12:23] LABS: Ferritin 583 ng/mL (20-250)
[2022-04-05 12:39] LABS: Folate 18.4 ng/mL (> or = 4.0); Vitamin B12 780 pg/mL (200-900)
--- NOTE | 2022-04-05 13:09 | W.PM.IDCN ---
History of Present Illness Data of Consult Service Date: 04/05/22 Requesting physician: Loida Simmons Primary Care Provider: Twan Nunez MD [facility] Reason for consult: diabetic foot infection He presents to hospital with three days left foot discomfort and discoloration with foul odor which cam on suddenly. He had no injury He has erosion on scan mid proximal phalanges on presentation to ER and gas. He has no fever or chills. He has had amputation left fourth toe and plantar debridement per Dr Bloom. Review of Systems Review of Systems: Yes all other systems are reviewed and are negative [facility] Past Medical History Medical History Diabetes Opioid use disorder Family History Family history: reviewed and not pertinent Social History Social History Household Members: Unknown / Unable to assess Housing: Unknown / Unable to assess Patient Tobacco Use Status: Never used Tobacco service: No Current occupational status: disabled Travel History Ebola Risk: Travel/Contact With Anyone From Affected Area/s: No Has Patient Experienced Ebola Symptoms: No Meds Allergies Allergy/AdvReac Type Severity Reaction Status Date / Time No Known Allergies Allergy Verified 02/01/22 12:12 [No Known Allergies*] Active Medications: Current Medications Acetaminophen (Acetaminophen 325 Mg Tablet) 650 mg PO Q6H PRN PRN Reason: Pain, Moderate (Pain Scale 4-6 Atorvastatin Calcium (Atorvastatin Calcium 10 Mg Tablet) 10 mg PO DAILY [facility] Dextrose (Dextrose 50 % 25 Gm/50 Ml Syringe) 25 gm IVPUSH Q15M PRN; Protocol PRN Reason: per Hypoglycemia Standing Ord. Enoxaparin Sodium (Enoxaparin Sodium 40 Mg/0.4 Ml Syringe) 40 mg SUBCUT Q24H [facility] Last Admin: 04/05/22 00:08 Dose: 40 mg Fentanyl (Fentanyl Citrate/Pf 100 Mcg/2 Ml Vial) 50 mcg IVPUSH Q5M PRN; Protocol PRN Reason: Pain, Severe (Pain Scale 7-10) Glucose (Glucose Gel 15 Gm Gel..Gram.) 15 gm PO Q15M PRN; Protocol PRN Reason: per Hypoglycemia Standing Ord. Hydromorphone HCl (Hydromorphone Hcl 0.5 Mg/0.5 Ml Syringe) 0.5 mg IVPUSH Q5M PRN; Protocol PRN Reason: Pain, Severe (Pain Scale 7-10) Hydroxyzine HCl (Hydroxyzine Hcl 25 Mg Tablet) 25 mg PO TID PRN PRN Reason: itching Promethazine HCl 12.5 mg/ (Sodium Chloride) 50.5 mls @ 202 mls/hr IV ONCE PRN PRN Reason: Nausea and Vomiting Piperacillin Sod/Tazobactam (Sod 3.375 gm/ Sodium Chloride) 50 mls @ 100 mls/hr IV Q6H [facility] Last Infusion: 04/05/22 05:57 Dose: Infused Lactated Ringer's (Lr) 1,000 mls @ 100 mls/hr IVCONT .Q10H [facility] Stop: 04/06/22 06:14 Last Admin: 04/05/22 10:26 Dose: 100 mls/hr Vancomycin HCl 750 mg/ Sodium (Chloride) 265 mls @ 265 mls/hr IV Q12H [facility] Last Admin: 04/05/22 11:05 Dose: 265 mls/hr Insulin Glargine (Insulin Glargine,Hum.Rec.Anlog 100 Unit/Ml 10 Ml Vial) 15 unit SUBCUT DAILY [facility] Last Admin: 04/05/22 10:26 Dose: 15 unit Insulin Human Lispro (Insulin Lispro 100 Unit/Ml 3 Ml Vial) 0 unit SUBCUT QIDACHS [facility]; Protocol Stop: 04/05/22 22:37 Last Admin: 04/05/22 11:47 Dose: 8 unit Methadone HCl (Methadone Hcl 20 Mg/2 Ml Oral.Conc) 65 mg PO DAILY [facility] Last Admin: 04/05/22 09:30 Dose: 65 mg Omeprazole (Omeprazole 20 Mg Capsule.Dr) 20 mg PO DAILY@0630 [facility] Ondansetron HCl (Ondansetron Hcl 4 Mg/2 Ml Vial) 4 mg IVPUSH Q8H PRN PRN Reason: Nausea and Vomiting Last Admin: 04/05/22 04:59 Dose: 4 mg Pharmacy Consult (Consult Rx Perform Med Rec) 1 each MISCELLANE ONCE PRN PRN Reason: Consult order Pharmacy Consult (Consult Rx Vancomycin Dosing) 1 each MISCELLANE DAILY PRN PRN Reason: Consult order Sodium Chloride (0.9 % Sodium Chloride Flush 3 Ml Syringe) 3 ml IVFLUSH QSHIFT [facility] Last Admin: 04/05/22 08:25 Dose: 3 ml Home Medications Medication Instructions Recorded Confirmed Last Taken Type atorvastatin 10 mg tablet 1 tab PO DAILY 04/05/22 04/05/22 Unknown History insulin aspart U-100 100 unit/mL 0 sliding scale dose subcut QIDACHS 04/05/22 04/05/22 Unknown History (3 mL) subcutaneous pen (Novolog Flexpen U-100 Insulin aspart) insulin glargine 100 unit/mL (3 20 - 30 unit subcut DAILY 04/05/22 04/05/22 Unknown History mL) subcutaneous pen (Lantus Solostar U-100 Insulin) lisinopril 20 mg tablet 20 mg PO DAILY 04/05/22 04/05/22 Unknown History metformin 1,000 mg tablet 1,000 mg PO BID 04/05/22 04/05/22 Unknown History methadone 10 mg/5 mL oral solution 65 mg PO DAILY 04/05/22 04/05/22 04/04/22 History omeprazole 20 mg capsule,delayed 20 mg PO DAILY 04/05/22 04/05/22 Unknown History release Physical Exam Vital Signs: Vital Signs: Last Vital Signs Temp 97.9 F 04/05/22 11:12 Pulse 82 04/05/22 11:12 Resp 18 04/05/22 11:12 BP 157/74 H 04/05/22 11:12 Pulse Ox 96 04/05/22 11:12 O2 Del Method 04/05/22 11:12 O2 Flow Rate 8 04/04/22 22:25 BMI result Body Mass Index 35.2 Const: General: cooperative HEENT: Head: Yes normal to inspection Face and sinus: Yes normal facial exam Mouth: Normal oral and palatal mucosa present Teeth and gingiva: dentition normal Eyes: General: appearance normal, both eyes and all related structures Pupils: Equal, round and reactive pupils present Resp: Effort & Inspection: normal respiratory effort Cardio: Rate: regular rate Rhythm: regular rhythm GI: Palpation (GI): Soft to palpation and nontender : General: Yes no CVA tenderness Back/Spine/Pelvis: Back: no CVA tenderness Skin: General skin exam: no rashes or lesions noted Neuro: General: moves all extremities Cranial nerves: Yes Equal, round and reactive pupils present Extrem: Other: wrapped left foot Psych: Appearance: grossly normal Results Labs CBC & Chem 7: 04/05/22 05:03 04/05/22 05:03 Labs: Short CBC 04/04/22 04/05/22 Range/Units 17:52 05:03 WBC 18.6 H 18.9 H (4.8-10.8) X10*3/uL Hgb 9.0 L D 8.7 L (14.0-18.0) g/dl Hct 28.3 L D 27.6 L (42.0-52.0) % Plt Count 306 309 (160-400) X10*3/uL BMP 04/04/22 04/05/22 17:53 05:03 Sodium 135 138 Potassium 3.7 D 3.8 Chloride 94 L 99 Carbon Dioxide 30 H 28 BUN 11 12 Creatinine 0.96 1.26 Calcium 7.9 L D 7.8 L Liver Function 04/04/22 Range/Units 17:53 Total Bilirubin 0.3 (0.0-1.0) mg/dL AST 24 D (5-37) U/L ALT 23 (0-40) U/L Alkaline Phosphatase 184 H D (39-117) U/L Albumin 2.9 L D (3.5-5.0) g/dL Microbiology Microbiology Results: Microbiology 04/04/22 Unknown Foot Left Gram Stain - Final Assessment and Plan (1) Diabetic infection of left foot: Status: Acute He has had necrotic lef fourth toe with gas which was amputated. He has also likely areas on left foot which have active osteomyelitis but are not obvious. He has also had pathologic fracture on toe. He has possible gram negative and gram positive with some anerobes. He has no MRSA or VRE seen. (2) Toe necrosis: Status: Acute (3) Osteomyelitis: Status: Acute (4) Opioid use disorder: Status: Acute Plan Would treat with IV antibiotics (Ertapenem which covers gram negative,most gram positive and anerobes) for six weeks. Follow in office ,please make appt [phone] Infectious Disease office
--- NOTE | 2022-04-05 13:49 | P.CDIC_ITS ---
CDI Concurrent Query Documentation Clarification: PHYSICIAN'S DOCUMENTATION REQUEST Date of Query: 04/05/22 8039 Patient Name: Ulysses Acevedo Admit Date: 04/04/22 Dear Doctor, A review of the medical record indicates additional documentation may be needed. Please review below and update the documentation accordingly. Clinical Indicators: Documentation on 04/05/22 indicates Osteomyelitis. Risk Factors/Clinical Indicators/Treatments Per ID note 04/05/22: Diabetic infection of left foot: He has had necrotic left fourth toe with gas which was amputated. He has also likely areas on left foot which have active osteomyelitis but are not obvious. Based on the above, please clarify in the Progress Notes further specificity regarding the type of Osteomyelitis. Also include specific site with laterality and known or suspected infectious agent: * Acute osteomyelitis * Acute hematogenous osteomyelitis * Subacute osteomyelitis * Chronic osteomyelitis * Chronic hemotogenous osteomyelitis * Chronic multifocal osteomyelitis * Chronic osteomyelitis with draining sinus * Other (please specify) * Unable to determine Use of terms such as suspected, likely, concern for, or probable (associated with a specific diagnosis that is being evaluated, monitored, or treated as if it exists) are acceptable and can be coded in the inpatient setting, when documented at the time of discharge. Thank you, Deborah Lord RN Extension: [phone] Please use your independent medical judgment in providing your response. THIS QUERY IS PART OF THE PERMANENT MEDICAL RECORD
--- NOTE | 2022-04-05 14:30 | P.PNGS_ITS ---
Subjective Subjective Date of Service: 04/05/22 Interval history: Pod 1 following amputation of the 4th toe and drainage of an abscess left foot. He feels improved with less dizziness today. He denies any significant pain in the foot at this time. Physical Exam Vital Signs: Vital Signs: Last Vital Signs Temp 97.9 F 04/05/22 11:12 Pulse 82 04/05/22 11:12 Resp 18 04/05/22 11:12 BP 157/74 H 04/05/22 11:12 Pulse Ox 96 04/05/22 11:12 O2 Del Method 04/05/22 11:12 O2 Flow Rate 8 04/04/22 22:25 BMI result Body Mass Index 35.2 Const: General: comfortable and no acute distress Nutritional Appearance: well nourished Orientation/consciousness: patient oriented x3 HEENT: Head: Yes normocephalic and Yes atraumatic Ears: hearing grossly normal bilaterally Resp: Effort & Inspection: normal respiratory effort, no audible wheezes, no cough and no respiratory distress Skin: General skin exam: no rashes or lesions noted Neuro: General: patient oriented x3 Extrem: Other: Dressings changed to the left foot. Open wound noted with the drain in place. Swelling of the 2nd and 3rd toe is noted well as 5th toe. Erythema a extends to the dorsum of the foot. No purulence drainage or necrotic skin is identified. Sterile dressings Ankle/foot/toe images: 1. Fourth toe amputation, open wound Objective Data Active Medications Acetaminophen (Acetaminophen 325 Mg Tablet) 650 mg PO Q6H PRN PRN Reason: Pain, Moderate (Pain Scale 4-6 Atorvastatin Calcium (Atorvastatin Calcium 10 Mg Tablet) 10 mg PO DAILY [facility] Dextrose (Dextrose 50 % 25 Gm/50 Ml Syringe) 25 gm IVPUSH Q15M PRN; Protocol PRN Reason: per Hypoglycemia Standing Ord. Enoxaparin Sodium (Enoxaparin Sodium 40 Mg/0.4 Ml Syringe) 40 mg SUBCUT Q24H [facility] Last Admin: 04/05/22 00:08 Dose: 40 mg Documented By: RICHARD Comments: new admit Fentanyl (Fentanyl Citrate/Pf 100 Mcg/2 Ml Vial) 50 mcg IVPUSH Q5M PRN; Protocol PRN Reason: Pain, Severe (Pain Scale 7-10) Glucose (Glucose Gel 15 Gm Gel..Gram.) 15 gm PO Q15M PRN; Protocol PRN Reason: per Hypoglycemia Standing Ord. Hydromorphone HCl (Hydromorphone Hcl 0.5 Mg/0.5 Ml Syringe) 0.5 mg IVPUSH Q5M PRN; Protocol PRN Reason: Pain, Severe (Pain Scale 7-10) Hydroxyzine HCl (Hydroxyzine Hcl 25 Mg Tablet) 25 mg PO TID PRN PRN Reason: itching Promethazine HCl 12.5 mg/ (Sodium Chloride) 50.5 mls @ 202 mls/hr IV ONCE PRN PRN Reason: Nausea and Vomiting Piperacillin Sod/Tazobactam (Sod 3.375 gm/ Sodium Chloride) 50 mls @ 100 mls/hr IV Q6H [facility] Last Admin: 04/05/22 13:48 Dose: 100 mls/hr Documented By: ABHAY Lactated Ringer's (Lr) 1,000 mls @ 100 mls/hr IVCONT .Q10H [facility] Stop: 04/06/22 06:14 Last Admin: 04/05/22 10:26 Dose: 100 mls/hr Documented By: ABHAY Vancomycin HCl 750 mg/ Sodium (Chloride) 265 mls @ 265 mls/hr IV Q12H [facility] Last Infusion: 04/05/22 13:38 Dose: 0 mls/hr Documented By: ABHAY Insulin Glargine (Insulin Glargine,Hum.Rec.Anlog 100 Unit/Ml 10 Ml Vial) 15 unit SUBCUT DAILY [facility] Last Admin: 04/05/22 10:26 Dose: 15 unit Documented By: ABHAY Insulin Human Lispro (Insulin Lispro 100 Unit/Ml 3 Ml Vial) 0 unit SUBCUT QIDACHS [facility]; Protocol Stop: 04/05/22 22:37 Last Admin: 04/05/22 11:47 Dose: 8 unit Documented By: ABHAY Methadone HCl (Methadone Hcl 20 Mg/2 Ml Oral.Conc) 65 mg PO DAILY [facility] Last Admin: 04/05/22 09:30 Dose: 65 mg Documented By: ABHAY Omeprazole (Omeprazole 20 Mg Capsule.Dr) 20 mg PO DAILY@0630 [facility] Ondansetron HCl (Ondansetron Hcl 4 Mg/2 Ml Vial) 4 mg IVPUSH Q8H PRN PRN Reason: Nausea and Vomiting Last Admin: 04/05/22 04:59 Dose: 4 mg Documented By: RICHARD Pharmacy Consult (Consult Rx Perform Med Rec) 1 each MISCELLANE ONCE PRN PRN Reason: Consult order Pharmacy Consult (Consult Rx Vancomycin Dosing) 1 each MISCELLANE DAILY PRN PRN Reason: Consult order Sodium Chloride (0.9 % Sodium Chloride Flush 3 Ml Syringe) 3 ml IVFLUSH QSHIFT [facility] Last Admin: 04/05/22 08:25 Dose: 3 ml Documented By: ABHAY Labs CBC & Chem 7: 04/05/22 05:03 04/05/22 05:03 Labs: Laboratory Results - last 24 hr 04/04/22 04/04/22 04/04/22 16:59 17:51 17:52 MCV 82.7 MCH 26.3 L MCHC 31.8 RDW 13.8 Plt Count 306 MPV 10.1 Immature Gran % (Auto) 0.5 H Neut % (Auto) 90.1 H Lymph % (Auto) 4.3 L [place] % (Auto) 4.8 Eos % (Auto) 0.1 Baso % (Auto) 0.2 Lymph # (Auto) 0.8 L [place] # (Auto) 0.9 Eos # (Auto) 0.0 Baso # (Auto) 0.0 Abs Immat Gran (auto) 0.10 H Absolute Neuts (auto) 16.8 H Absolute Nucleated RBC 0.000 Nucleated RBC % (auto) 0.0 Smear Tech's Comments VERIFIED ESR PT INR APTT Anion Gap Estim Creat Clear Calc Estimated GFR POC Glucose 267 H Random Glucose Estimat Average Glucose Hemoglobin A1c % Lactic Acid 1.2 Calcium Magnesium Iron TIBC % Saturation Unsat Iron Binding Ferritin Total Bilirubin AST ALT Alkaline Phosphatase C-Reactive Protein B-Natriuretic Peptide Total Protein Albumin Vitamin B12 Folate COVID-19 (JOSE DAVID) COVID-19 Clin Com 04/04/22 04/04/22 04/04/22 17:52 17:53 17:53 MCV MCH MCHC RDW Plt Count MPV Immature Gran % (Auto) Neut % (Auto) Lymph % (Auto) [place] % (Auto) Eos % (Auto) Baso % (Auto) Lymph # (Auto) [place] # (Auto) Eos # (Auto) Baso # (Auto) Abs Immat Gran (auto) Absolute Neuts (auto) Absolute Nucleated RBC Nucleated RBC % (auto) Smear Tech's Comments ESR 114 H PT 15.6 H INR 1.3 H APTT 29.8 Anion Gap 15 Estim Creat Clear Calc 97.8 Estimated GFR > 60 POC Glucose Random Glucose 282 H Estimat Average Glucose Hemoglobin A1c % Lactic Acid Calcium 7.9 L D Magnesium 1.9 Iron TIBC % Saturation Unsat Iron Binding Ferritin Total Bilirubin 0.3 AST 24 D ALT 23 Alkaline Phosphatase 184 H D C-Reactive Protein 29.90 H B-Natriuretic Peptide Total Protein 6.5 Albumin 2.9 L D Vitamin B12 Folate COVID-19 (JOSE DAVID) COVID-19 Clin Com 04/04/22 04/04/22 04/05/22 17:53 17:53 04:57 MCV MCH MCHC RDW Plt Count MPV Immature Gran % (Auto) Neut % (Auto) Lymph % (Auto) [place] % (Auto) Eos % (Auto) Baso % (Auto) Lymph # (Auto) [place] # (Auto) Eos # (Auto) Baso # (Auto) Abs Immat Gran (auto) Absolute Neuts (auto) Absolute Nucleated RBC Nucleated RBC % (auto) Smear Tech's Comments ESR PT INR APTT Anion Gap Estim Creat Clear Calc Estimated GFR POC Glucose 171 H Random Glucose Estimat Average Glucose Hemoglobin A1c % Lactic Acid Calcium Magnesium Iron TIBC % Saturation Unsat Iron Binding Ferritin Total Bilirubin AST ALT Alkaline Phosphatase C-Reactive Protein B-Natriuretic Peptide 66 Total Protein Albumin Vitamin B12 Folate COVID-19 (JOSE DAVID) Negative COVID-19 Clin Com See Note 04/05/22 04/05/22 04/05/22 05:03 05:03 05:03 MCV 84.1 MCH 26.5 L MCHC 31.5 RDW 14.0 Plt Count 309 MPV 10.8 Immature Gran % (Auto) 0.7 H Neut % (Auto) 88.6 H Lymph % (Auto) 4.5 L [place] % (Auto) 5.9 Eos % (Auto) 0.1 Baso % (Auto) 0.2 Lymph # (Auto) 0.9 L [place] # (Auto) 1.1 Eos # (Auto) 0.0 Baso # (Auto) 0.0 Abs Immat Gran (auto) 0.14 H Absolute Neuts (auto) 16.8 H Absolute Nucleated RBC 0.000 Nucleated RBC % (auto) 0.0 Smear Tech's Comments ESR PT INR APTT Anion Gap 15 Estim Creat Clear Calc 74.5 Estimated GFR 59 POC Glucose Random Glucose 176 H D Estimat Average Glucose 338 Hemoglobin A1c % 13.4 Lactic Acid Calcium 7.8 L Magnesium Iron TIBC % Saturation Unsat Iron Binding Ferritin Total Bilirubin AST ALT Alkaline Phosphatase C-Reactive Protein B-Natriuretic Peptide Total Protein Albumin Vitamin B12 Folate COVID-19 (JOSE DAVID) COVID-19 Clin Com 04/05/22 04/05/22 04/05/22 07:13 11:14 11:14 MCV MCH MCHC RDW Plt Count MPV Immature Gran % (Auto) Neut % (Auto) Lymph % (Auto) [place] % (Auto) Eos % (Auto) Baso % (Auto) Lymph # (Auto) [place] # (Auto) Eos # (Auto) Baso # (Auto) Abs Immat Gran (auto) Absolute Neuts (auto) Absolute Nucleated RBC Nucleated RBC % (auto) Smear Tech's Comments ESR PT INR APTT Anion Gap Estim Creat Clear Calc Estimated GFR POC Glucose 227 H Random Glucose Estimat Average Glucose Hemoglobin A1c % Lactic Acid Calcium Magnesium Iron 12 L TIBC 159 L % Saturation 8 L Unsat Iron Binding 147 Ferritin 583 H Total Bilirubin AST ALT Alkaline Phosphatase C-Reactive Protein B-Natriuretic Peptide Total Protein Albumin Vitamin B12 780 Folate 18.4 COVID-19 (JOSE DAVID) COVID-19 Clin Com 04/05/22 11:23 MCV MCH MCHC RDW Plt Count MPV Immature Gran % (Auto) Neut % (Auto) Lymph % (Auto) [place] % (Auto) Eos % (Auto) Baso % (Auto) Lymph # (Auto) [place] # (Auto) Eos # (Auto) Baso # (Auto) Abs Immat Gran (auto) Absolute Neuts (auto) Absolute Nucleated RBC Nucleated RBC % (auto) Smear Tech's Comments ESR PT INR APTT Anion Gap Estim Creat Clear Calc Estimated GFR POC Glucose 310 H Random Glucose Estimat Average Glucose Hemoglobin A1c % Lactic Acid Calcium Magnesium Iron TIBC % Saturation Unsat Iron Binding Ferritin Total Bilirubin AST ALT Alkaline Phosphatase C-Reactive Protein B-Natriuretic Peptide Total Protein Albumin Vitamin B12 Folate COVID-19 (JOSE DAVID) COVID-19 Clin Com Microbiology Microbiology Results: Microbiology 04/04/22 Unknown Gram Stain - Final Foot Left Procedures Date of Service Date of Service: 04/05/22 Progress Note: A&P Assessment and plan (1) Diabetic infection of left foot: Status: Acute (2) Toe necrosis: Status: Acute (3) Osteomyelitis: Status: Acute Plan 56-year-old male patient with long history of diabetes presenting with a necrotic 4th toe and cellulitis of the left foot, S/P amputation of the 4th toe pod 1. Plan to continue IV antibiotics and local wound care. Will consult vascular surgery. Time Spent With Patient Time: Total time spent is greater than 50% in coordination of care (as documented) at patient's floor/unit and/or counseling patient: Quality Stroke Does the patient have a stroke diagnosis?: No VTE Prior VTE?: No VTE Risk Level:: Surgical - moderate VTE Device Contraindication: N/A - Device Ordered VTE Drug Contraindication: N/A - Med Ordered
[2022-04-05] MEDS: HYDROmorphone HCl 0.5 MG/0.5 ML SYRINGE IVPUSH (15:31)
[2022-04-05 16:40] LABS: Glucose, Whole Blood 316 mg/dL (60-115)
[2022-04-05 20:17] LABS: Glucose, Whole Blood 243 mg/dL (60-115)
[2022-04-05] MEDS: Metoclopramide HCl 10 MG/2 ML VIAL 5 MG IVPUSH (22:43)
[2022-04-06 04:00] VITALS: BP 132/68; PULSE 75; RESP 18; TEMP 36.4; O2SAT 97
[2022-04-06] MEDS: Piperacillin Sodium/Tazobactam 3.375 GM in 0.9 % Sodium Chloride 50 ML IV (05:56)
[2022-04-06] MEDS: Omeprazole 20 MG CAPSULE.DR PO (05:56)
--- NOTE | 2022-04-06 06:41 | PM.EVENT ---
Event Note Date of Service: 04/11/22 Event Note: Urine retention: Patient had 600 cc of urine on the bladder scan. Placed a Castano catheter Sent urinalysis urology consult
[2022-04-06 06:44] LABS: Creatinine Clr Calc Pharmacy 34.1; Estimated Glomerular Filt Rate 24
[2022-04-06 06:58] LABS: Appearance Urine Turbid; Color Urine Yellow; Glucose Urine UA 250 mg/dL (Negative); Leukocyte Esterase Urine Negative (Negative); Nitrite Urine Negative (Negative); PH 5.5 (5.0-8.0); Urine Blood Negative (Negative); Urine Ketones Negative (Negative); Urine Protein 30 (1+) mg/dL (Neg-Trace)
[2022-04-06 07:10] LABS: Bacteria Urine None Seen (None Seen); Hyaline Casts Urine 0-2 /LPF (0-2); RBC Urine 0-2 /HPF (0-2); Squamous Epithelial Cell Urine 0-2 /HPF (0-2); WBC Urine 0-5 /HPF (0-5)
[2022-04-06 07:34] VITALS: BP 160/80; PULSE 70; RESP 16; TEMP 36.3; O2SAT 99
[2022-04-06 07:36] LABS: Glucose, Whole Blood 240 mg/dL (60-115)
[2022-04-06] MEDS: Insulin Glargine,Hum.rec.anlog 100 UNIT/ML 10 ML VIAL 15 UNIT SUBCUT (08:12)
[2022-04-06] MEDS: methADONE HCl 20 MG/2 ML ORAL.CONC 65 MG PO (08:12)
[2022-04-06] MEDS: Atorvastatin Calcium 10 MG TABLET PO (08:12)
[2022-04-06] MEDS: 0.9 % Sodium Chloride Flush 3 ML SYRINGE IVFLUSH (08:13)
[2022-04-06 09:24] LABS: Vancomycin Trough 23.6 mcg/mL (10.0-20.0)
[2022-04-06] MEDS: 0.9 % Sodium Chloride 1,000 ML 80 ML IVCONT (11:15)
[2022-04-06 11:28] LABS: Glucose, Whole Blood 279 mg/dL (60-115)
[2022-04-06 11:29] VITALS: BP 157/80; PULSE 82; RESP 16; TEMP 36.2; O2SAT 98
--- NOTE | 2022-04-06 11:35 | PM.CNGS ---
History of Present Illness Consult details Consult date: 04/06/22 Reason for consult: wound care Narrative: Pleasant 56-year-old gentleman who presented to the hospital with a diabetic foot infection. Underwent subsequent toe amputation. He is actually well known to me as I have taken care of his in the past. He had been seen by General surgery and underwent surgery over the weekend. He reports he is doing fairly well from the toe amputation. He is concerned about the overall status of his leg. He now presents to us for follow-up. Review of Systems Review of Systems: Yes all other systems are reviewed and are negative Constitutional: Constitutional: Reports no additional constitutional complaints ENT: Reports Normal hearing present Cardiovascular: Cardiovascular: Denies chest pain, Denies chest pain at rest, Denies chest pain with activity and Denies pedal edema Respiratory: Respiratory: Denies cough Gastrointestinal: Gastrointestinal: Denies abdominal pain Musculoskeletal: Musculoskeletal: Denies abnormal gait, Denies muscle cramps and Denies radiating pain into limb Integumentary/Breasts: Skin/Breast: Denies skin ulcer and Denies wounds Neurologic: Reports Normal hearing present and Denies abnormal gait Psychiatric: Psychiatric: Reports no additional psychiatric complaints [facility] Past Medical History Medical History Diabetes Opioid use disorder Family History Family history: reviewed and not pertinent Social History Social History Household Members: Unknown / Unable to assess Housing: Unknown / Unable to assess Patient Tobacco Use Status: Never used Tobacco service: No Current occupational status: disabled Travel History Ebola Risk: Travel/Contact With Anyone From Affected Area/s: No Has Patient Experienced Ebola Symptoms: No Meds Allergies Allergy/AdvReac Type Severity Reaction Status Date / Time No Known Allergies Allergy Verified 02/01/22 12:12 [No Known Allergies*] Active Medications: Current Medications Acetaminophen (Acetaminophen 325 Mg Tablet) 650 mg PO Q6H PRN PRN Reason: Pain, Moderate (Pain Scale 4-6 Atorvastatin Calcium (Atorvastatin Calcium 10 Mg Tablet) 10 mg PO DAILY [facility] Last Admin: 04/06/22 08:12 Dose: 10 mg Dextrose (Dextrose 50 % 25 Gm/50 Ml Syringe) 25 gm IVPUSH Q15M PRN; Protocol PRN Reason: per Hypoglycemia Standing Ord. Enoxaparin Sodium (Enoxaparin Sodium 40 Mg/0.4 Ml Syringe) 40 mg SUBCUT Q24H [facility] Last Admin: 04/05/22 22:16 Dose: 40 mg Glucose (Glucose Gel 15 Gm Gel..Gram.) 15 gm PO Q15M PRN; Protocol PRN Reason: per Hypoglycemia Standing Ord. Hydromorphone HCl (Hydromorphone Hcl 0.5 Mg/0.5 Ml Syringe) 0.5 mg IVPUSH Q3H PRN; Protocol PRN Reason: Pain, Severe (Pain Scale 7-10) Last Admin: 04/05/22 15:31 Dose: 0.5 mg Hydroxyzine HCl (Hydroxyzine Hcl 25 Mg Tablet) 25 mg PO TID PRN PRN Reason: itching Meropenem 1 gm/ Sodium (Chloride) 100 mls @ 200 mls/hr IV Q12H [facility] Stop: 05/17/22 21:29 Last Infusion: 04/06/22 10:48 Dose: Infused Sodium Chloride (Ns) 1,000 mls @ 80 mls/hr IVCONT .[id number] [facility] Stop: 04/06/22 23:29 Last Admin: 04/06/22 11:15 Dose: 80 mls/hr Insulin Glargine (Insulin Glargine,Hum.Rec.Anlog 100 Unit/Ml 10 Ml Vial) 15 unit SUBCUT DAILY [facility] Last Admin: 04/06/22 08:12 Dose: 15 unit Methadone HCl (Methadone Hcl 20 Mg/2 Ml Oral.Conc) 65 mg PO DAILY [facility] Last Admin: 04/06/22 08:12 Dose: 65 mg Omeprazole (Omeprazole 20 Mg Capsule.Dr) 20 mg PO DAILY@0630 [facility] Last Admin: 04/06/22 05:56 Dose: 20 mg Ondansetron HCl (Ondansetron Hcl 4 Mg/2 Ml Vial) 4 mg IVPUSH Q8H PRN PRN Reason: Nausea and Vomiting Last Admin: 04/05/22 19:13 Dose: 4 mg Oxycodone HCl (Oxycodone Hcl Immed Release 5 Mg Tablet) 5 mg PO Q6H PRN PRN Reason: Pain, Moderate (Pain Scale 4-6 Pharmacy Consult (Consult Rx Perform Med Rec) 1 each MISCELLANE ONCE PRN PRN Reason: Consult order Pharmacy Consult (Consult Rx Vancomycin Dosing) 1 each MISCELLANE DAILY PRN PRN Reason: Consult order Sodium Chloride (0.9 % Sodium Chloride Flush 3 Ml Syringe) [facility] Last Admin: 04/06/22 08:13 Dose: 3 ml Home Medications Medication Instructions Recorded Confirmed Last Taken Type atorvastatin 10 mg tablet 1 tab PO DAILY 04/05/22 04/05/22 Unknown History insulin aspart U-100 100 unit/mL 0 sliding scale dose subcut QIDACHS 04/05/22 04/05/22 Unknown History (3 mL) subcutaneous pen (Novolog Flexpen U-100 Insulin aspart) insulin glargine 100 unit/mL (3 20 - 30 unit subcut DAILY 04/05/22 04/05/22 Unknown History mL) subcutaneous pen (Lantus Solostar U-100 Insulin) lisinopril 20 mg tablet 20 mg PO DAILY 04/05/22 04/05/22 Unknown History metformin 1,000 mg tablet 1,000 mg PO BID 04/05/22 04/05/22 Unknown History methadone 10 mg/5 mL oral solution 65 mg PO DAILY 04/05/22 04/05/22 04/04/22 History omeprazole 20 mg capsule,delayed 20 mg PO DAILY 04/05/22 04/05/22 Unknown History release Physical Exam Vital Signs: Vital Signs: Last Vital Signs Temp 97.1 F 04/06/22 11:29 Pulse 82 04/06/22 11:29 Resp 16 04/06/22 11:29 BP 157/80 H 04/06/22 11:29 Pulse Ox 98 04/06/22 11:29 O2 Del Method 04/06/22 11:29 O2 Flow Rate 8 04/04/22 22:25 BMI result Body Mass Index 35.2 Const: General: cooperative, healthy appearing and comfortable Orientation/consciousness: oriented to person, oriented to place and oriented to time HEENT: Head: Yes normal to inspection Neck: Neck: Yes normal visual inspection Carotids: no bruits Chest: Chest palpation & inspection: normal inspection of the chest Resp: Effort & Inspection: normal respiratory effort and able to speak in complete sentences Auscultation: clear to auscultation bilaterally, no crackles, no rales, no rhonchi and no wheezes Cardio: Rate: regular rate Rhythm: regular rhythm Heart sounds: S1 normal heart sound present and S2 normal heart sound present Bruits: no carotid bruits Peripheral pulses: dorsalis pedis present ( Bilateral DP signals) GI: Inspection: Yes normal to inspection Skin: Wounds: no wounds Hair: normal Neuro: General: oriented to person, oriented to place and oriented to time Cranial nerves: Yes CN's II-XII intact bilaterally and Yes Normal hearing present Cognition (Neuro): normal cognition Motor exam (neuro): 5/5 motor strength present throughout Extrem: Other: venous exam: No significant superficial varicosities or spider telangiectasias, minimal edema General: No clubbing, No cyanosis and No edema Psych: Appearance: grossly normal Mental Status: mental status grossly normal Speech and movement: Normal speech and movement present Results Labs Result diagrams: 04/05/22 05:03 04/06/22 05:22 Labs: Abnormal lab results 04/05/22 04/05/22 04/05/22 Range/Units 11:14 15:43 20:05 Creatinine (0.5-1.4) mg/dL POC Glucose 316 H 243 H (60-115) mg/dL Iron 12 L (45-160) mcg/dL TIBC 159 L (228-428) mcg/dL % Saturation 8 L (15-50) % Ferritin 583 H (20-250) ng/mL Urine Protein (Neg-Trace) mg/dL Urine Glucose (UA) (Negative) mg/dL Vancomycin Trough (10.0-20.0) mcg/mL 04/06/22 04/06/22 04/06/22 Range/Units 05:22 06:30 07:28 Creatinine 2.75 H (0.5-1.4) mg/dL POC Glucose 240 H (60-115) mg/dL Iron (45-160) mcg/dL TIBC (228-428) mcg/dL % Saturation (15-50) % Ferritin (20-250) ng/mL Urine Protein 30 (1+) H (Neg-Trace) mg/dL Urine Glucose (UA) 250 H (Negative) mg/dL Vancomycin Trough (10.0-20.0) mcg/mL 04/06/22 04/06/22 Range/Units 08:45 11:08 Creatinine (0.5-1.4) mg/dL POC Glucose 279 H (60-115) mg/dL Iron (45-160) mcg/dL TIBC (228-428) mcg/dL % Saturation (15-50) % Ferritin (20-250) ng/mL Urine Protein (Neg-Trace) mg/dL Urine Glucose (UA) (Negative) mg/dL Vancomycin Trough 23.6 H (10.0-20.0) mcg/mL BMP 04/06/22 05:22 Creatinine 2.75 H Urine 04/06/22 Range/Units 06:30 Urine Color Yellow Urine Appearance Turbid Urine pH 5.5 (5.0-8.0) Ur Specific [place] 1.010 (1.005-1.025) Urine Protein 30 (1+) H (Neg-Trace) mg/dL Urine Glucose (UA) 250 H (Negative) mg/dL All other labs normal. Assessment and Plan (1) PAD (peripheral artery disease): Status: Acute Plan in short patient has undergone left 4th toe amputation. He does have an element of peripheral vascular disease as he is a long-standing diabetic. I did review the noninvasive arterial testing which does demonstrate multifocal multilevel disease. We will continue to monitor the status of his foot. He may benefit from endovascular intervention to try to improve the blood flow. We will watch him over the next day or so in the hopes that his white count does decrease a little bit. We will continue to monitor his status with you. Thank you for allowing us to assist in his care. If there are any questions or concerns please do not hesitate to contact us. Procedures Date of Service Date of Service: 04/06/22
--- NOTE | 2022-04-06 11:37 | HO.PM.IMPN ---
Subjective Subjective Date of Service: 04/06/22 Interval History: Complaining of pain at site of Castano catheter, events from last night noted, patient had difficulty voiding a bladder scan showed 600 cc of urine therefore Castano catheter placed overnight has clear yellow urine in Castano bag, patient denies left foot pain, denies fever chills, has been tolerating diet no other acute issues. Review of Systems [employer] no headache no dizziness CVS no chest pain, no palpitation GI no nausea, no vomiting, no diarrhea Review of Systems: Yes all other systems are reviewed and are negative Physical Exam Vital Signs: Vital Signs: Last Vital Signs Temp 97.1 F 04/06/22 11:29 Pulse 82 04/06/22 11:29 Resp 16 04/06/22 11:29 BP 157/80 H 04/06/22 11:29 Pulse Ox 98 04/06/22 11:29 O2 Del Method 04/06/22 11:29 O2 Flow Rate 8 04/04/22 22:25 BMI result Body Mass Index 35.2 Const: Other: General -awake alert x3, no acute distress Neck no JVD Cardiovascular - regular rate and rhythm, S1-S2 Lungs - normal respiratory effort, clear to auscultation bilaterally, no wheezing Abdomen - soft, nontender, bowel sounds audible no rebound or guarding Extremities -bilateral nonpitting edema, LLE in dressing / jeramie wrap Neuro - awake and alert, decreased sensation lower extremities left greater than right Psych appropriate affect Castano clear urine Objective Data Active Medications Acetaminophen (Acetaminophen 325 Mg Tablet) 650 mg PO Q6H PRN PRN Reason: Pain, Moderate (Pain Scale 4-6 Atorvastatin Calcium (Atorvastatin Calcium 10 Mg Tablet) 10 mg PO DAILY [facility] Last Admin: 04/06/22 08:12 Dose: 10 mg Documented By: ARNULFO Dextrose (Dextrose 50 % 25 Gm/50 Ml Syringe) 25 gm IVPUSH Q15M PRN; Protocol PRN Reason: per Hypoglycemia Standing Ord. Enoxaparin Sodium (Enoxaparin Sodium 40 Mg/0.4 Ml Syringe) 40 mg SUBCUT Q24H [facility] Last Admin: 04/05/22 22:16 Dose: 40 mg Documented By: RICHARD Glucose (Glucose Gel 15 Gm Gel..Gram.) 15 gm PO Q15M PRN; Protocol PRN Reason: per Hypoglycemia Standing Ord. Hydromorphone HCl (Hydromorphone Hcl 0.5 Mg/0.5 Ml Syringe) 0.5 mg IVPUSH Q3H PRN; Protocol PRN Reason: Pain, Severe (Pain Scale 7-10) Last Admin: 04/05/22 15:31 Dose: 0.5 mg Documented By: ABHAY Hydroxyzine HCl (Hydroxyzine Hcl 25 Mg Tablet) 25 mg PO TID PRN PRN Reason: itching Meropenem 1 gm/ Sodium (Chloride) 100 mls @ 200 mls/hr IV Q12H [facility] Stop: 05/17/22 21:29 Last Infusion: 04/06/22 10:48 Dose: 0 mls/hr Documented By: ARNULFO Sodium Chloride (Ns) 1,000 mls @ 80 mls/hr IVCONT .[id number] [facility] Stop: 04/06/22 23:29 Last Admin: 04/06/22 11:15 Dose: 80 mls/hr Documented By: ARNULFO Insulin Glargine (Insulin Glargine,Hum.Rec.Anlog 100 Unit/Ml 10 Ml Vial) 15 unit SUBCUT DAILY [facility] Last Admin: 04/06/22 08:12 Dose: 15 unit Documented By: ARNULFO Methadone HCl (Methadone Hcl 20 Mg/2 Ml Oral.Conc) 65 mg PO DAILY [facility] Last Admin: 04/06/22 08:12 Dose: 65 mg Documented By: ARNULFO Omeprazole (Omeprazole 20 Mg Capsule.Dr) 20 mg PO DAILY@0630 [facility] Last Admin: 04/06/22 05:56 Dose: 20 mg Documented By: RICHARD Ondansetron HCl (Ondansetron Hcl 4 Mg/2 Ml Vial) 4 mg IVPUSH Q8H PRN PRN Reason: Nausea and Vomiting Last Admin: 04/05/22 19:13 Dose: 4 mg Documented By: RICHARD Oxycodone HCl (Oxycodone Hcl Immed Release 5 Mg Tablet) 5 mg PO Q6H PRN PRN Reason: Pain, Moderate (Pain Scale 4-6 Pharmacy Consult (Consult Rx Perform Med Rec) 1 each MISCELLANE ONCE PRN PRN Reason: Consult order Pharmacy Consult (Consult Rx Vancomycin Dosing) 1 each MISCELLANE DAILY PRN PRN Reason: Consult order Sodium Chloride (0.9 % Sodium Chloride Flush 3 Ml Syringe) 3 ml IVFLUSH QSHIFT [facility] Last Admin: 04/06/22 08:13 Dose: 3 ml Documented By: ARNULFO Labs CBC & Chem 7: 04/05/22 05:03 04/06/22 05:22 Labs: Laboratory Results - last 24 hr 04/05/22 04/05/22 04/05/22 11:14 11:14 15:43 Estim Creat Clear Calc Estimated GFR POC Glucose 316 H Iron 12 L TIBC 159 L % Saturation 8 L Unsat Iron Binding 147 Ferritin 583 H Vitamin B12 780 Folate 18.4 Urine Color Urine Appearance Urine pH Ur Specific [place] Urine Protein Urine Glucose (UA) Urine Ketones Urine Blood Urine Nitrite Ur Leukocyte Esterase Urine RBC Urine WBC Ur Squamous Epith Cells Urine Bacteria Hyaline Casts Vancomycin Trough 04/05/22 04/06/22 04/06/22 20:05 05:22 06:30 Estim Creat Clear Calc 34.1 Estimated GFR 24 POC Glucose 243 H Iron TIBC % Saturation Unsat Iron Binding Ferritin Vitamin B12 Folate Urine Color Yellow Urine Appearance Turbid Urine pH 5.5 Ur Specific [place] 1.010 Urine Protein 30 (1+) H Urine Glucose (UA) 250 H Urine Ketones Negative Urine Blood Negative Urine Nitrite Negative Ur Leukocyte Esterase Negative Urine RBC 0-2 Urine WBC 0-5 Ur Squamous Epith Cells 0-2 Urine Bacteria None Seen Hyaline Casts 0-2 Vancomycin Trough 04/06/22 04/06/22 04/06/22 07:28 08:45 11:08 Estim Creat Clear Calc Estimated GFR POC Glucose 240 H 279 H Iron TIBC % Saturation Unsat Iron Binding Ferritin Vitamin B12 Folate Urine Color Urine Appearance Urine pH Ur Specific [place] Urine Protein Urine Glucose (UA) Urine Ketones Urine Blood Urine Nitrite Ur Leukocyte Esterase Urine RBC Urine WBC Ur Squamous Epith Cells Urine Bacteria Hyaline Casts Vancomycin Trough 23.6 H Microbiology Microbiology Results: Microbiology 04/04/22 Unknown Gram Stain - Final Foot Left Routine Culture - Preliminary Strep agalactiae (Grp B) 04/04/22 18:15 Blood Culture - Preliminary Blood - Venous No growth after 24 hours. 04/04/22 17:53 Blood Culture - Preliminary Blood - Venous No growth after 24 hours. Assessment and Plan (1) PAD (peripheral artery disease): Status: Acute (2) Diabetic infection of left foot: Status: Acute (3) Toe necrosis: Status: Acute (4) Osteomyelitis: Status: Acute (5) Opioid use disorder: Status: Acute Plan 56 year old male with a PMH of insulin dependant DM who is admitted under to the general surgical services for diabetic foot infection. Medical consult requested for mgmt of DM + med mgmt. 1. Left foot Diabetic infection / gas gangrene No foot pain likely due to diabetic neuropathy s/p amp 4th toe + debridement On IV zosyn and vancomcyin blood cultures x2 negative, wound culture grew group B strep agalactiae Seen by ID she recommend IV ertapenem for 6 weeks Since renal function worsen will DC IV vancomycin transitioned to IV meropenem renally dose 2. AMY, SCr was 0.9 bumped to 1.26 and today further worsened to 2.7 likely due to urinary retention, history of prior urinary retention will add Flomax Continue Castano catheter, give all meds renally dose Hold JERAMIE, IV fluid x1 L and repeat labs if no improvement will consider Nephro consult 3. Acute anemia likely due to acute illness, no evidence of thao bleeding at this time Normal B12 folate and iron , monitor CBC 4. DM Elevated blood sugars continue basal+ bolus ADA diet 5. HTN Elevated blood pressure,off meds , Jeramie on hold due to AMY will place on Norvasc 6. Chronic opiate dependence continue methadone DVT prophylaxis with Lovenox Code status full code Disposition as per General surgery Quality Stroke Does the patient have a stroke diagnosis?: No VTE Prior VTE?: No VTE Risk Level:: Surgical - moderate VTE Device Contraindication: N/A - Device Ordered VTE Drug Contraindication: N/A - Med Ordered
[2022-04-06] MEDS: Tamsulosin HCL 0.4 MG CAPSULE PO (12:32)
[2022-04-06] MEDS: amLODIPine Besylate 5 MG TABLET PO (12:32)
[2022-04-06] MEDS: Lactulose 20 GM/30 ML SOLUTION PO (15:13)
--- NOTE | 2022-04-06 15:56 | P.PNGS_ITS ---
Subjective Subjective Date of Service: 04/06/22 Interval history: Patient feels tired today, has some soreness in the foot. Physical Exam 2 Vital Signs: Vital Signs: Last Vital Signs Temp 97.1 F 04/06/22 11:29 Pulse 82 04/06/22 11:29 Resp 16 04/06/22 11:29 BP 157/80 H 04/06/22 11:29 Pulse Ox 98 04/06/22 11:29 O2 Del Method 04/06/22 11:29 O2 Flow Rate 8 04/04/22 22:25 BMI result Body Mass Index 35.2 Const: General: no acute distress Nutritional Appearance: well nourished Orientation/consciousness: patient oriented x3 Limitations: no limitations Skin: General skin exam: no rashes or lesions noted Neuro: General: patient oriented x3 Extrem: Other: Dressing change to left foot. Dusky changes noted at the plantar surface. Drain remains intact in the draining some purulent discharge. Continued edema noted in the calf. Clean dressings applied. Objective Data Active Medications Acetaminophen (Acetaminophen 325 Mg Tablet) 650 mg PO Q6H PRN PRN Reason: Pain, Moderate (Pain Scale 4-6 Amlodipine Besylate (Amlodipine Besylate 5 Mg Tablet) 5 mg PO DAILY [facility]; Protocol Last Admin: 04/06/22 12:32 Dose: 5 mg Documented By: ARNULFO Atorvastatin Calcium (Atorvastatin Calcium 10 Mg Tablet) 10 mg PO DAILY [facility] Last Admin: 04/06/22 08:12 Dose: 10 mg Documented By: ARNULFO Dextrose (Dextrose 50 % 25 Gm/50 Ml Syringe) 25 gm IVPUSH Q15M PRN; Protocol PRN Reason: per Hypoglycemia Standing Ord. Dextrose (Dextrose 50 % 25 Gm/50 Ml Syringe) 25 gm IVPUSH Q15M PRN; Protocol PRN Reason: per Hypoglycemia Standing Ord. Enoxaparin Sodium (Enoxaparin Sodium 40 Mg/0.4 Ml Syringe) 40 mg SUBCUT Q24H [facility] Last Admin: 04/05/22 22:16 Dose: 40 mg Documented By: RICHARD Glucose (Glucose Gel 15 Gm Gel..Gram.) 15 gm PO Q15M PRN; Protocol PRN Reason: per Hypoglycemia Standing Ord. Glucose (Glucose Gel 15 Gm Gel..Gram.) 15 gm PO Q15M PRN; Protocol PRN Reason: per Hypoglycemia Standing Ord. Hydromorphone HCl (Hydromorphone Hcl 0.5 Mg/0.5 Ml Syringe) 0.5 mg IVPUSH Q3H PRN; Protocol PRN Reason: Pain, Severe (Pain Scale 7-10) Last Admin: 04/05/22 15:31 Dose: 0.5 mg Documented By: ABHAY Hydroxyzine HCl (Hydroxyzine Hcl 25 Mg Tablet) 25 mg PO TID PRN PRN Reason: itching Meropenem 1 gm/ Sodium (Chloride) 100 mls @ 200 mls/hr IV Q12H [facility] Stop: 05/17/22 21:29 Last Infusion: 04/06/22 10:48 Dose: 0 mls/hr Documented By: ARNULFO Sodium Chloride (Ns) 1,000 mls @ 80 mls/hr IVCONT .[id number] [facility] Stop: 04/06/22 23:29 Last Admin: 04/06/22 11:15 Dose: 80 mls/hr Documented By: ARNULFO Insulin Glargine (Insulin Glargine,Hum.Rec.Anlog 100 Unit/Ml 10 Ml Vial) 15 unit SUBCUT DAILY [facility] Last Admin: 04/06/22 08:12 Dose: 15 unit Documented By: ARNULFO Insulin Human Lispro (Insulin Lispro 100 Unit/Ml 3 Ml Vial) 0 unit SUBCUT QIDACHS [facility]; Protocol Methadone HCl (Methadone Hcl 20 Mg/2 Ml Oral.Conc) 65 mg PO DAILY [facility] Last Admin: 04/06/22 08:12 Dose: 65 mg Documented By: ARNULFO Omeprazole (Omeprazole 20 Mg Capsule.Dr) 20 mg PO DAILY@0630 [facility] Last Admin: 04/06/22 05:56 Dose: 20 mg Documented By: RICHARD Ondansetron HCl (Ondansetron Hcl 4 Mg/2 Ml Vial) 4 mg IVPUSH Q8H PRN PRN Reason: Nausea and Vomiting Last Admin: 04/05/22 19:13 Dose: 4 mg Documented By: RICHARD Oxycodone HCl (Oxycodone Hcl Immed Release 5 Mg Tablet) 5 mg PO Q6H PRN PRN Reason: Pain, Moderate (Pain Scale 4-6 Pharmacy Consult (Consult Rx Perform Med Rec) 1 each MISCELLANE ONCE PRN PRN Reason: Consult order Pharmacy Consult (Consult Rx Vancomycin Dosing) 1 each MISCELLANE DAILY PRN PRN Reason: Consult order Sodium Chloride (0.9 % Sodium Chloride Flush 3 Ml Syringe) 3 ml IVFLUSH QSHIFT [facility] Last Admin: 04/06/22 15:15 Dose: Not Given Documented By: ARNULFO Non-Admin Reason: IV Running Tamsulosin HCl (Tamsulosin Hcl 0.4 Mg Capsule) 0.4 mg PO DAILY [facility] Last Admin: 04/06/22 12:32 Dose: 0.4 mg Documented By: ARNULFO Labs CBC & Chem 7: 04/05/22 05:03 04/06/22 05:22 Labs: Laboratory Results - last 24 hr 04/05/22 04/05/22 04/06/22 15:43 20:05 05:22 Estim Creat Clear Calc 34.1 Estimated GFR 24 POC Glucose 316 H 243 H Urine Color Urine Appearance Urine pH Ur Specific [place] Urine Protein Urine Glucose (UA) Urine Ketones Urine Blood Urine Nitrite Ur Leukocyte Esterase Urine RBC Urine WBC Ur Squamous Epith Cells Urine Bacteria Hyaline Casts Vancomycin Trough 04/06/22 04/06/22 04/06/22 06:30 07:28 08:45 Estim Creat Clear Calc Estimated GFR POC Glucose 240 H Urine Color Yellow Urine Appearance Turbid Urine pH 5.5 Ur Specific [place] 1.010 Urine Protein 30 (1+) H Urine Glucose (UA) 250 H Urine Ketones Negative Urine Blood Negative Urine Nitrite Negative Ur Leukocyte Esterase Negative Urine RBC 0-2 Urine WBC 0-5 Ur Squamous Epith Cells 0-2 Urine Bacteria None Seen Hyaline Casts 0-2 Vancomycin Trough 23.6 H 04/06/22 11:08 Estim Creat Clear Calc Estimated GFR POC Glucose 279 H Urine Color Urine Appearance Urine pH Ur Specific [place] Urine Protein Urine Glucose (UA) Urine Ketones Urine Blood Urine Nitrite Ur Leukocyte Esterase Urine RBC Urine WBC Ur Squamous Epith Cells Urine Bacteria Hyaline Casts Vancomycin Trough Microbiology Microbiology Results: Microbiology 04/04/22 Unknown Gram Stain - Final Foot Left Routine Culture - Preliminary Strep agalactiae (Grp B) 04/04/22 18:15 Blood Culture - Preliminary Blood - Venous No growth after 24 hours. 04/04/22 17:53 Blood Culture - Preliminary Blood - Venous No growth after 24 hours. Procedures Date of Service Date of Service: 04/06/22 Progress Note: A&P Assessment and plan (1) Diabetic infection of left foot: Status: Acute (2) Toe necrosis: Status: Acute (3) Osteomyelitis: Status: Acute Plan 56-year-old male patient with associated acute osteomyelitis with gangrene of the left 4th toe. Patient evaluated by Infectious Disease and recommended Invanze for 6 weeks. Patient will need PICC line placement in preparation for this. Continue to monitor wounds for possible need for additional debridement. Time Spent With Patient Time: Total time spent is greater than 50% in coordination of care (as documented) at patient's floor/unit and/or counseling patient: Quality Stroke Does the patient have a stroke diagnosis?: No VTE Prior VTE?: No VTE Risk Level:: Surgical - moderate VTE Device Contraindication: N/A - Device Ordered VTE Drug Contraindication: N/A - Med Ordered
[2022-04-06 16:07] VITALS: BP 179/83; PULSE 80; RESP 19; TEMP 36.4; O2SAT 96
[2022-04-06 16:29] LABS: Glucose, Whole Blood 362 mg/dL (60-115)
[2022-04-06] MEDS: Insulin Lispro 100 UNIT/ML 3 ML VIAL SUBCUT ×2 (16:37→20:02)
[2022-04-06 19:16] VITALS: BP 137/75; PULSE 78; RESP 18; TEMP 37.1; O2SAT 95
[2022-04-06 19:53] LABS: Glucose, Whole Blood 336 mg/dL (60-115)
[2022-04-06] MEDS: oxyCODONE HCl Immed Release 5 MG TABLET PO (23:34)
[2022-04-06] MEDS: Enoxaparin Sodium 40 MG/0.4 ML SYRINGE SUBCUT (23:35)
[2022-04-07] VITALS: BP 128/69; PULSE 69; RESP 17; TEMP 36.3; O2SAT 96
[2022-04-07 04:00] VITALS: BP 187/82; PULSE 71; RESP 17; TEMP 36.1; O2SAT 95
[2022-04-07] MEDS: Omeprazole 20 MG CAPSULE.DR PO (04:49)
[2022-04-07 06:43] LABS: Hematocrit 25.9 % (42.0-52.0); Hemoglobin 8.3 g/dl (14.0-18.0); Mean Corpuscular Hemoglobin 26.5 pg (27.0-33.0); Mean Corpuscular Volume 82.7 fL (80.0-98.0); Mean Platelet Volume 10.7 fL (9.4-12.4); Platelet Count 371 X10*3/uL (160-400); Red Blood Count 3.13 X10*6/uL (4.60-5.80); Red Cell Distribution Width 14.3 % (11.0-16.0); White Blood Count 20.5 X10*3/uL (4.8-10.8)
[2022-04-07 06:48] LABS: Anion Gap 16 (12-20); Blood Urea Nitrogen 34 mg/dL (9-16); Calcium 7.5 mg/dL (8.4-10.2); Carbon Dioxide 25 mmol/L (22-29); Chloride 98 mmol/L (96-108); Creatinine Clr Calc Pharmacy 27.6; Estimated Glomerular Filt Rate 19; Glucose Random 293 mg/dL (60-115); Potassium 4.2 mmol/L (3.3-5.1); Sodium 135 mmol/L (135-145)
[2022-04-07 07:08] VITALS: BP 157/77; PULSE 71; RESP 16; TEMP 36.9; O2SAT 98
[2022-04-07 07:20] LABS: Glucose, Whole Blood 266 mg/dL (60-115)
[2022-04-07] MEDS: amLODIPine Besylate 5 MG TABLET PO (09:15)
[2022-04-07] MEDS: methADONE HCl 20 MG/2 ML ORAL.CONC 65 MG PO (09:15)
[2022-04-07] MEDS: Atorvastatin Calcium 10 MG TABLET PO (09:15)
[2022-04-07] MEDS: Tamsulosin HCL 0.4 MG CAPSULE PO (09:15)
[2022-04-07] MEDS: Insulin Lispro 100 UNIT/ML 3 ML VIAL SUBCUT ×4 (09:17→19:54)
[2022-04-07] MEDS: Insulin Glargine,Hum.rec.anlog 100 UNIT/ML 10 ML VIAL 15 UNIT SUBCUT (09:18)
[2022-04-07] MEDS: 0.9 % Sodium Chloride 1,000 ML 100 ML IVCONT ×2 (09:28→18:17)
--- NOTE | 2022-04-07 11:10 | P.CONNP_ITS ---
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 He was diagnosed with gas ganerene and was taken to the operative room emergently where he had amputation of the L 4th toe and debridement of the plantar foot infection. He was treated with vancomcyin/zoysn. His serum creatinine has been going up. Nephrology has been consulted to assist in his clinical care Review of Systems Review of Systems Yes all other systems are reviewed and are negative PMFSH Past Medical History Medical History Diabetes Opioid use disorder Family History Family history: reviewed and not pertinent Social History Social History Household Members: Unknown / Unable to assess Housing: Unknown / Unable to assess Patient Tobacco Use Status: Never used Tobacco service: No Current occupational status: disabled Travel History Ebola Risk: Travel/Contact With Anyone From Affected Area/s: No Has Patient Experienced Ebola Symptoms: No Meds Allergies Allergy/AdvReac Type Severity Reaction Status Date / Time No Known Allergies Allergy Verified 02/01/22 12:12 [No Known Allergies*] Active Medications: Current Medications Acetaminophen (Acetaminophen 325 Mg Tablet) 650 mg PO Q6H PRN PRN Reason: Pain, Moderate (Pain Scale 4-6 Amlodipine Besylate (Amlodipine Besylate 5 Mg Tablet) 5 mg PO DAILY [facility]; Protocol Last Admin: 04/07/22 09:15 Dose: 5 mg Atorvastatin Calcium (Atorvastatin Calcium 10 Mg Tablet) 10 mg PO DAILY [facility] Last Admin: 04/07/22 09:15 Dose: 10 mg Dextrose (Dextrose 50 % 25 Gm/50 Ml Syringe) 25 gm IVPUSH Q15M PRN; Protocol PRN Reason: per Hypoglycemia Standing Ord. Dextrose (Dextrose 50 % 25 Gm/50 Ml Syringe) 25 gm IVPUSH Q15M PRN; Protocol PRN Reason: per Hypoglycemia Standing Ord. Enoxaparin Sodium (Enoxaparin Sodium 40 Mg/0.4 Ml Syringe) 40 mg SUBCUT Q24H [facility] Last Admin: 04/06/22 23:35 Dose: 40 mg Glucose (Glucose Gel 15 Gm Gel..Gram.) 15 gm PO Q15M PRN; Protocol PRN Reason: per Hypoglycemia Standing Ord. Glucose (Glucose Gel 15 Gm Gel..Gram.) 15 gm PO Q15M PRN; Protocol PRN Reason: per Hypoglycemia Standing Ord. Hydromorphone HCl (Hydromorphone Hcl 0.5 Mg/0.5 Ml Syringe) 0.5 mg IVPUSH Q3H PRN; Protocol PRN Reason: Pain, Severe (Pain Scale 7-10) Last Admin: 04/05/22 15:31 Dose: 0.5 mg Hydroxyzine HCl (Hydroxyzine Hcl 25 Mg Tablet) 25 mg PO TID PRN PRN Reason: itching Meropenem 1 gm/ Sodium (Chloride) 100 mls @ 200 mls/hr IV Q12H [facility] Stop: 05/17/22 21:29 Last Infusion: 04/07/22 10:44 Dose: Infused Sodium Chloride (Ns) 1,000 mls @ 100 mls/hr IVCONT .Q10H [facility] Last Admin: 04/07/22 09:28 Dose: 100 mls/hr Insulin Glargine (Insulin Glargine,Hum.Rec.Anlog 100 Unit/Ml 10 Ml Vial) 15 unit SUBCUT DAILY [facility] Last Admin: 04/07/22 09:18 Dose: 15 unit Insulin Human Lispro (Insulin Lispro 100 Unit/Ml 3 Ml Vial) 0 unit SUBCUT QIDACHS [facility]; Protocol Last Admin: 04/07/22 09:17 Dose: 6 unit Methadone HCl (Methadone Hcl 20 Mg/2 Ml Oral.Conc) 65 mg PO DAILY [facility] Last Admin: 04/07/22 09:15 Dose: 65 mg Omeprazole (Omeprazole 20 Mg Capsule.Dr) 20 mg PO DAILY@0630 [facility] Last Admin: 04/07/22 04:49 Dose: 20 mg Ondansetron HCl (Ondansetron Hcl 4 Mg/2 Ml Vial) 4 mg IVPUSH Q8H PRN PRN Reason: Nausea and Vomiting Last Admin: 04/05/22 19:13 Dose: 4 mg Oxycodone HCl (Oxycodone Hcl Immed Release 5 Mg Tablet) 5 mg PO Q6H PRN PRN Reason: Pain, Moderate (Pain Scale 4-6 Last Admin: 04/06/22 23:34 Dose: 5 mg Pharmacy Consult (Consult Rx Perform Med Rec) 1 each MISCELLANE ONCE PRN PRN Reason: Consult order Pharmacy Consult (Consult Rx Vancomycin Dosing) 1 each MISCELLANE DAILY PRN PRN Reason: Consult order Sodium Chloride (0.9 % Sodium Chloride Flush 3 Ml Syringe) 3 ml IVFLUSH QSHIFT [facility] Last Admin: 04/07/22 09:18 Dose: Not Given Tamsulosin HCl (Tamsulosin Hcl 0.4 Mg Capsule) 0.4 mg PO DAILY [facility] Last Admin: 04/07/22 09:15 Dose: 0.4 mg Home Medications Medication Instructions Recorded Confirmed Last Taken Type atorvastatin 10 mg tablet 1 tab PO DAILY 04/05/22 04/05/22 Unknown History insulin aspart U-100 100 unit/mL 0 sliding scale dose subcut QIDACHS 04/05/22 04/05/22 Unknown History (3 mL) subcutaneous pen (Novolog Flexpen U-100 Insulin aspart) insulin glargine 100 unit/mL (3 20 - 30 unit subcut DAILY 04/05/22 04/05/22 Unknown History mL) subcutaneous pen (Lantus Solostar U-100 Insulin) lisinopril 20 mg tablet 20 mg PO DAILY 04/05/22 04/05/22 Unknown History metformin 1,000 mg tablet 1,000 mg PO BID 04/05/22 04/05/22 Unknown History methadone 10 mg/5 mL oral solution 65 mg PO DAILY 04/05/22 04/05/22 04/04/22 History omeprazole 20 mg capsule,delayed 20 mg PO DAILY 04/05/22 04/05/22 Unknown History release Physical Exam Vital Signs: Last Vital Signs Temp 98.4 F 04/07/22 07:08 Pulse 71 04/07/22 07:08 Resp 16 04/07/22 07:08 BP 157/77 H 04/07/22 07:08 Pulse Ox 98 04/07/22 07:08 O2 Del Method 04/07/22 07:08 O2 Flow Rate 8 04/04/22 22:25 BMI result Body Mass Index 35.2 Const General: no acute distress Orientation/consciousness: patient oriented x3 HEENT Head: Yes normocephalic Mouth: Normal oral and palatal mucosa present Eyes EOM: EOMs intact bilaterally Neck Neck: Yes supple Resp Auscultation: diminished lung sounds Cardio Rate: regular rate GI Palpation (GI): Soft to palpation Neuro General: patient oriented x3 and moves all extremities Results Lab Results Result Diagrams: 04/07/22 05:10 04/07/22 05:10 Lab results: Chemistry 04/04/22 04/05/22 04/06/22 17:53 05:03 05:22 Sodium 135 138 Potassium 3.7 D 3.8 Carbon Dioxide 30 H 28 BUN 11 12 Creatinine 0.96 1.26 2.75 H Calcium 7.9 L D 7.8 L 04/07/22 05:10 Sodium 135 Potassium 4.2 Carbon Dioxide 25 BUN 34 H D Creatinine 3.40 H Calcium 7.5 L Hematology 04/04/22 04/05/22 04/07/22 17:52 05:03 05:10 WBC 18.6 H 18.9 H 20.5 H Hgb 9.0 L D 8.7 L 8.3 L Plt Count 306 309 371 Urinalysis 04/06/22 06:30 Urine Color Yellow Urine Appearance Turbid Urine pH 5.5 Ur Specific [place] 1.010 Urine Protein 30 (1+) H Urine Glucose (UA) 250 H Urine Ketones Negative Urine Blood Negative Urine Nitrite Negative Ur Leukocyte Esterase Negative Urine RBC 0-2 Urine WBC 0-5 Ur Squamous Epith Cells 0-2 Hyaline Casts 0-2 Assessment and Plan (1) Acute kidney injury: Status: Acute Plan Acute Kidney Injury likely due to tubular injury (multifactorial- septic ATN & had been receiving Vanco) No significant RBC in the urine to suspect GN Had been on Vanco/Zosyn- already change to Meropenem Was on ACEI at home which is on hold Has a Castano catheter with good urine output No indication for renal replacement Labs AM. Shall closely follow up Procedures Date of Service Date of Service: 04/07/22
[2022-04-07 11:28] LABS: Glucose, Whole Blood 326 mg/dL (60-115)
--- NOTE | 2022-04-07 11:48 | HO.PM.IMPN ---
Subjective Subjective Date of Service: 04/08/22 Interval History: Patient offers no acute complaints, no headache, no dizziness, tolerating diet, no acute issues overnight, noted to have worsening WBC and renal function, patient denies fevers, denies pain. Review of Systems [employer] no headache no dizziness CVS no chest pain, no palpitation GI no nausea, no vomiting Review of Systems: Yes all other systems are reviewed and are negative Physical Exam Vital Signs: Vital Signs: Last Vital Signs Temp 98.4 F 04/07/22 07:08 Pulse 71 04/07/22 07:08 Resp 16 04/07/22 07:08 BP 157/77 H 04/07/22 07:08 Pulse Ox 98 04/07/22 07:08 O2 Del Method 04/07/22 07:08 O2 Flow Rate 8 04/04/22 22:25 BMI result Body Mass Index 35.2 Const: Other: General -awake gallito rt x3, no acute di stress Neck no JVD Cardiovascular - regular rate and r hythm, S1-S2 Lungs - normal respirat ory effort, clear to auscultation bi laterally, no whee zing Abdomen - sof t, nontender, wayne l sounds audible n o rebound or guard ing Extremities -b ilateral nonpittin g edema, LLE in dr fatima / jeramie wrap Neuro - awake and alert, decreased s ensation lower ext remities left grea ter than right Psy ch appropriate aff ect Castano clear ur ine Objective Data Active Medications Acetaminophen (Acetaminophen 325 Mg Tablet) 650 mg PO Q6H PRN PRN Reason: Pain, Moderate (Pain Scale 4-6 Amlodipine Besylate (Amlodipine Besylate 5 Mg Tablet) 5 mg PO DAILY [facility]; Protocol Last Admin: 04/07/22 09:15 Dose: 5 mg Documented By: ALICIA Atorvastatin Calcium (Atorvastatin Calcium 10 Mg Tablet) 10 mg PO DAILY [facility] Last Admin: 04/07/22 09:15 Dose: 10 mg Documented By: ALICIA Dextrose (Dextrose 50 % 25 Gm/50 Ml Syringe) 25 gm IVPUSH Q15M PRN; Protocol PRN Reason: per Hypoglycemia Standing Ord. Dextrose (Dextrose 50 % 25 Gm/50 Ml Syringe) 25 gm IVPUSH Q15M PRN; Protocol PRN Reason: per Hypoglycemia Standing Ord. Enoxaparin Sodium (Enoxaparin Sodium 40 Mg/0.4 Ml Syringe) 40 mg SUBCUT Q24H [facility] Last Admin: 04/06/22 23:35 Dose: 40 mg Documented By: TANO Glucose (Glucose Gel 15 Gm Gel..Gram.) 15 gm PO Q15M PRN; Protocol PRN Reason: per Hypoglycemia Standing Ord. Glucose (Glucose Gel 15 Gm Gel..Gram.) 15 gm PO Q15M PRN; Protocol PRN Reason: per Hypoglycemia Standing Ord. Hydromorphone HCl (Hydromorphone Hcl 0.5 Mg/0.5 Ml Syringe) 0.5 mg IVPUSH Q3H PRN; Protocol PRN Reason: Pain, Severe (Pain Scale 7-10) Last Admin: 04/05/22 15:31 Dose: 0.5 mg Documented By: ABHAY Hydroxyzine HCl (Hydroxyzine Hcl 25 Mg Tablet) 25 mg PO TID PRN PRN Reason: itching Meropenem 1 gm/ Sodium (Chloride) 100 mls @ 200 mls/hr IV Q12H [facility] Stop: 05/17/22 21:29 Last Infusion: 04/07/22 10:44 Dose: 0 mls/hr Documented By: ALICIA Sodium Chloride (Ns) 1,000 mls @ 100 mls/hr IVCONT .Q10H [facility] Last Admin: 04/07/22 09:28 Dose: 100 mls/hr Documented By: ALICIA Insulin Glargine (Insulin Glargine,Hum.Rec.Anlog 100 Unit/Ml 10 Ml Vial) 15 unit SUBCUT DAILY [facility] Last Admin: 04/07/22 09:18 Dose: 15 unit Documented By: ALICIA Insulin Human Lispro (Insulin Lispro 100 Unit/Ml 3 Ml Vial) 0 unit SUBCUT QIDACHS [facility]; Protocol Last Admin: 04/07/22 09:17 Dose: 6 unit Documented By: ALICIA Methadone HCl (Methadone Hcl 20 Mg/2 Ml Oral.Conc) 65 mg PO DAILY [facility] Last Admin: 04/07/22 09:15 Dose: 65 mg Documented By: ALICIA Omeprazole (Omeprazole 20 Mg Capsule.Dr) 20 mg PO DAILY@0630 [facility] Last Admin: 04/07/22 04:49 Dose: 20 mg Documented By: TANO Ondansetron HCl (Ondansetron Hcl 4 Mg/2 Ml Vial) 4 mg IVPUSH Q8H PRN PRN Reason: Nausea and Vomiting Last Admin: 04/05/22 19:13 Dose: 4 mg Documented By: RICHARD Oxycodone HCl (Oxycodone Hcl Immed Release 5 Mg Tablet) 5 mg PO Q6H PRN PRN Reason: Pain, Moderate (Pain Scale 4-6 Last Admin: 04/06/22 23:34 Dose: 5 mg Documented By: TANO Pharmacy Consult (Consult Rx Perform Med Rec) 1 each MISCELLANE ONCE PRN PRN Reason: Consult order Pharmacy Consult (Consult Rx Vancomycin Dosing) 1 each MISCELLANE DAILY PRN PRN Reason: Consult order Sodium Chloride (0.9 % Sodium Chloride Flush 3 Ml Sy[facility]) [facility] Admin: 04/07/22 09:18 Dose: Not Given Documented By: ALICIA Non-Admin Reason: IV Running Tamsulosin HCl (Tamsulosin Hcl 0.4 Mg Capsule) 0.4 mg PO DAILY [facility] Last Admin: 04/07/22 09:15 Dose: 0.4 mg Documented By: ALICIA Labs CBC & Chem 7: 04/08/22 06:12 04/08/22 06:12 Labs: Laboratory Results - last 24 hr 04/06/22 04/06/22 04/07/22 16:10 19:20 05:10 MCV MCH MCHC RDW Plt Count MPV Absolute Nucleated RBC Nucleated RBC % (auto) Anion Gap 16 Estim Creat Clear Calc 27.6 Estimated GFR 19 POC Glucose 362 H* 336 H Random Glucose 293 H D Calcium 7.5 L 04/07/22 04/07/22 04/07/22 05:10 07:07 11:13 MCV 82.7 MCH 26.5 L MCHC 32.0 RDW 14.3 Plt Count 371 MPV 10.7 Absolute Nucleated RBC 0.000 Nucleated RBC % (auto) 0.0 Anion Gap Estim Creat Clear Calc Estimated GFR POC Glucose 266 H 326 H Random Glucose Calcium Microbiology Microbiology Results: Microbiology 04/04/22 Unknown Gram Stain - Final Foot Left Routine Culture - Preliminary Strep agalactiae (Grp B) Staphylococcus species 04/04/22 18:15 Blood Culture - Preliminary Blood - Venous No growth after 48 hours. 04/04/22 17:53 Blood Culture - Preliminary Blood - Venous No growth after 48 hours. Assessment and Plan (1) PAD (peripheral artery disease): Status: Acute (2) Diabetic infection of left foot: Status: Acute (3) Toe necrosis: Status: Acute (4) Osteomyelitis: Status: Acute (5) Opioid use disorder: Status: Acute Plan 56 year old male with a PMH of insulin dependant DM who is admitted under to the general surgical services for diabetic foot infection. Medical consult requested for mgmt of DM + med mgmt. 1. Left foot Diabetic infection / gas gangrene No foot pain likely due to diabetic neuropathy s/p amp 4th toe + debridement pod #3 On IV meropenem, day 2 status post zosyn and vancomcyin x1 day , blood cultures x2 negative, wound culture grew group B strep agalactiae and Staph aureus Seen by ID she recommend IV ertapenem for 6 weeks,Patient noted to have worsening WBC, no fevers will discuss antibiotic management with ID Being followed closely by Dr. Edwards and Dr. Brown for peripheral vascular disease will need left leg endovascular peripheral angiogram with possible angioplasty, stent and or atherectomy, will wait for renal function to improve 2. AMY, SCr was 0.9 on admission gradually bumped to 3.4 today case discussed with Nephrology likely ATN urinary retention also playing a role, continue Castano catheter, flomax, all meds renally dose Hold JERAMIE, continue IV fluid Follow BMP 3. Acute anemia Hematocrit dropped likely dilutional and due to acute illness, no evidence of thao bleeding at this time Normal B12 folate and iron , monitor CBC, hold transfusion 4. DM Elevated blood sugars continue basal+ bolus ADA diet 5. HTN Elevated blood pressure,off meds , Jeramie on hold due to AMY will increase dose of Norvasc to 10 mg 6. Chronic opiate dependence continue methadone DVT prophylaxis with Lovenox Code status full code Disposition as per General surgery Quality Stroke Does the patient have a stroke diagnosis?: No VTE Prior VTE?: No VTE Risk Level:: Surgical - moderate VTE Device Contraindication: N/A - Device Ordered VTE Drug Contraindication: N/A - Med Ordered
[2022-04-07 12:00] VITALS: BP 143/67; PULSE 83; RESP 17; TEMP 36.4; O2SAT 98
--- NOTE | 2022-04-07 12:51 | P.PNVS_ITS ---
Subjective Subjective Date of Service: 04/07/22 Patient reports: no new complaints Interval history: Patient seen and examined. No significant events overnight. Appears to be doing relatively well. He continues to have this nonhealing ulcer of the left leg. I did review his noninvasive testing. Of note his white count continues to increase as well. Concerned about this left lower extremity. Physical Exam Vital Signs: Vital Signs: Last Vital Signs Temp 97.5 F 04/07/22 12:00 Pulse 83 04/07/22 12:00 Resp 17 04/07/22 12:00 BP 143/67 H 04/07/22 12:00 Pulse Ox 98 04/07/22 12:00 O2 Del Method 04/07/22 12:00 O2 Flow Rate 8 04/04/22 22:25 BMI result Body Mass Index 35.2 Const: General: cooperative, healthy appearing and no acute distress Orientation/consciousness: oriented to person, oriented to place and oriented to time HEENT: Head: Yes normal to inspection Neck: Carotids: no bruits Chest: Chest palpation & inspection: normal inspection of the chest Resp: Effort & Inspection: normal respiratory effort and able to speak in complete sentences Auscultation: clear to auscultation bilaterally Cardio: Rate: regular rate Heart sounds: S1 normal heart sound present and S2 normal heart sound present GI: Inspection: Yes normal to inspection Skin: Other: Nonhealing left leg ulcer General skin exam: no rashes or lesions noted W ounds: no wounds Neuro: General: oriented to person, oriented to place, oriented to time and CN's II-XI intact bilaterally Extrem: General: Yes normal to inspection, Yes full ROM and Yes no clubbing, cyanosis or edema Psych: Appearance: grossly normal and well kempt Speech and movement: Normal speech and movement present Affect: normal affect Progress Note: A&P Assessment and plan (1) PAD (peripheral artery disease): Status: Acute Assessment and Plan: Patient notes nonhealing left leg ulcer. I have discussed the pathophysiology of peripheral vascular disease with the patient. I have also discussed risk factor modification. I have reviewed the patient's arterial testing which reveals SFA disease. the patient would benefit from a left leg endovascular peripheral angiogram with possible angioplasty, stent, and/or atherectomy. This has been discussed in detail with the patient along with risks, benefits, and complications. This includes but is not limited to bleeding, infection, heart attack, need for emergent surgical repair, limb ischemia, blood vessel damage, bleeding, puncture, kidney injury, bruising, allergic reaction, and skin reaction. The patient demonstrates a clear under standing. We will schedule for the next appropriate time. Thank you for allowing us to assist in this patient's care. Time Spent With Patient Time: Total time spent is greater than 50% in coordination of care (as documented) at patient's floor/unit and/or counseling patient: Procedures Date of Service Date of Service: 04/07/22 Quality Stroke Does the patient have a stroke diagnosis?: No VTE Prior VTE?: No VTE Risk Level:: Surgical - moderate VTE Device Contraindication: N/A - Device Ordered VTE Drug Contraindication: N/A - Med Ordered
[2022-04-07 12:55] VITALS: BP 143/67; PULSE 83; RESP 17; TEMP 36.4; O2SAT 98
--- NOTE | 2022-04-07 13:06 | PM.IDPN ---
Subjective Subjective Date of Service: 04/07/22 Critical Care Time (minutes): 15 Comment: HE has no concerns,no diarrhea Objective Data Labs CBC & Chem 7: 04/07/22 05:10 04/07/22 05:10 Labs: Laboratory Results - last 24 hr 04/06/22 04/06/22 04/07/22 16:10 19:20 05:10 WBC RBC Hgb Hct MCV MCH MCHC RDW Plt Count MPV Absolute Nucleated RBC Nucleated RBC % (auto) Sodium 135 Potassium 4.2 Chloride 98 Carbon Dioxide 25 Anion Gap 16 BUN 34 H D Creatinine 3.40 H Estim Creat Clear Calc 27.6 Estimated GFR 19 POC Glucose 362 H* 336 H Random Glucose 293 H D Calcium 7.5 L 04/07/22 04/07/22 04/07/22 05:10 07:07 11:13 WBC 20.5 H RBC 3.13 L Hgb 8.3 L Hct 25.9 L MCV 82.7 MCH 26.5 L MCHC 32.0 RDW 14.3 Plt Count 371 MPV 10.7 Absolute Nucleated RBC 0.000 Nucleated RBC % (auto) 0.0 Sodium Potassium Chloride Carbon Dioxide Anion Gap BUN Creatinine Estim Creat Clear Calc Estimated GFR POC Glucose 266 H 326 H Random Glucose Calcium Microbiology Microbiology Results: Microbiology 04/04/22 Unknown Foot Left Gram Stain - Final 04/04/22 Unknown Foot Left Routine Culture - Preliminary Strep agalactiae (Grp B) Staphylococcus species 04/04/22 18:15 Blood - Venous Blood Culture - Preliminary No growth after 48 hours. 04/04/22 17:53 Blood - Venous Blood Culture - Preliminary No growth after 48 hours. Physical Exam Vital Signs: Vital Signs: Last Vital Signs Temp 97.5 F 04/07/22 12:00 Pulse 83 04/07/22 12:00 Resp 17 04/07/22 12:00 BP 143/67 H 04/07/22 12:00 Pulse Ox 98 04/07/22 12:00 O2 Del Method 04/07/22 12:00 O2 Flow Rate 8 04/04/22 22:25 BMI result Body Mass Index 35.2 Const: General: cooperative Resp: Effort & Inspection: normal respiratory effort Cardio: Rate: regular rate Rhythm: regular rhythm GI: Palpation (GI): Soft to palpation and nontender Extrem: Other: necrotic feet Assessment and Plan Assessment and plan (1) Diabetic infection of left foot: Problem details: There is increasing leukocytosis although patient not complaining There is concern over diabetic foot infection worsening especially since there is gas initially and I'm not sure what staph species are Status: Acute Assessment and Plan: Would change back to piperacillin/tazobactam and Daptomycin for now Would have Dr Ortiz recheck feet as may need further debridement or amputation Time Spent With Patient Time: Total time spent is greater than 50% in coordination of care (as documented) at patient's floor/unit and/or counseling patient:
--- NOTE | 2022-04-07 14:08 | P.PNGS_ITS ---
Subjective Subjective Date of Service: 04/07/22 Interval history: Patient with no new complaints. Denies any foot pain. Physical Exam Vital Signs: Vital Signs: Last Vital Signs Temp 97.5 F 04/07/22 12:00 Pulse 83 04/07/22 12:00 Resp 17 04/07/22 12:00 BP 143/67 H 04/07/22 12:00 Pulse Ox 98 04/07/22 12:00 O2 Del Method 04/07/22 12:00 O2 Flow Rate 8 04/04/22 22:25 BMI result Body Mass Index 35.2 Const: General: cooperative and no acute distress Nutritional Appearance: well nourished Orientation/consciousness: patient oriented x3 Limitations: no limitations HEENT: Head: Yes normocephalic and Yes atraumatic Resp: Effort & Inspection: normal respiratory effort, no audible wheezes, no cough and no respiratory distress Skin: Other: Warm, dry, no rash Neuro: General: patient oriented x3 Extrem: Other: Dressings changed to left foot. Overall appears much improved with decreased erythema in the forefoot. The wounds show evidence of new granulation tissue with no new necrotic tissue. Drain was removed and wounds packed with silver calcium alginate followed by fluffed gauze, Kerlix and Jeramie bandage. No palpable fluctuance appreciated. Erythema in the calf appears improved although edema remains. Objective Data Active Medications Acetaminophen (Acetaminophen 325 Mg Tablet) 650 mg PO Q6H PRN PRN Reason: Pain, Moderate (Pain Scale 4-6 Amlodipine Besylate (Amlodipine Besylate 10 Mg Tablet) 10 mg PO DAILY [facility]; Protocol Atorvastatin Calcium (Atorvastatin Calcium 10 Mg Tablet) 10 mg PO DAILY [facility] Last Admin: 04/07/22 09:15 Dose: 10 mg Documented By: ALICIA Dextrose (Dextrose 50 % 25 Gm/50 Ml Syringe) 25 gm IVPUSH Q15M PRN; Protocol PRN Reason: per Hypoglycemia Standing Ord. Dextrose (Dextrose 50 % 25 Gm/50 Ml Syringe) 25 gm IVPUSH Q15M PRN; Protocol PRN Reason: per Hypoglycemia Standing Ord. Enoxaparin Sodium (Enoxaparin Sodium 40 Mg/0.4 Ml Syringe) 40 mg SUBCUT Q24H [facility] Last Admin: 04/06/22 23:35 Dose: 40 mg Documented By: TANO Glucose (Glucose Gel 15 Gm Gel..Gram.) 15 gm PO Q15M PRN; Protocol PRN Reason: per Hypoglycemia Standing Ord. Glucose (Glucose Gel 15 Gm Gel..Gram.) 15 gm PO Q15M PRN; Protocol PRN Reason: per Hypoglycemia Standing Ord. Hydromorphone HCl (Hydromorphone Hcl 0.5 Mg/0.5 Ml Syringe) 0.5 mg IVPUSH Q3H PRN; Protocol PRN Reason: Pain, Severe (Pain Scale 7-10) Last Admin: 04/05/22 15:31 Dose: 0.5 mg Documented By: ABHAY Hydroxyzine HCl (Hydroxyzine Hcl 25 Mg Tablet) 25 mg PO TID PRN PRN Reason: itching Sodium Chloride (Ns) 1,000 mls @ 100 mls/hr IVCONT .Q10H [facility] Last Admin: 04/07/22 09:28 Dose: 100 mls/hr Documented By: ALICIA Sodium Chloride (Ns) 1,000 mls @ 100 mls/hr IVCONT .Q10H [facility] Piperacillin Sod/Tazobactam (Sod 2.25 gm/ Sodium Chloride) 50 mls @ 100 mls/hr IV Q6H [facility] Daptomycin 700 mg/ Sodium (Chloride) 64 mls @ 128 mls/hr IV Q48H [facility] Insulin Glargine (Insulin Glargine,Hum.Rec.Anlog 100 Unit/Ml 10 Ml Vial) 15 unit SUBCUT DAILY [facility] Last Admin: 04/07/22 09:18 Dose: 15 unit Documented By: ALICIA Insulin Human Lispro (Insulin Lispro 100 Unit/Ml 3 Ml Vial) 0 unit SUBCUT QIDACHS [facility]; Protocol Last Admin: 04/07/22 11:53 Dose: 8 unit Documented By: ALICIA Methadone HCl (Methadone Hcl 20 Mg/2 Ml Oral.Conc) 65 mg PO DAILY [facility] Last Admin: 04/07/22 09:15 Dose: 65 mg Documented By: ALICIA Omeprazole (Omeprazole 20 Mg Capsule.Dr) 20 mg PO DAILY@0630 [facility] Last Admin: 04/07/22 04:49 Dose: 20 mg Documented By: TANO Ondansetron HCl (Ondansetron Hcl 4 Mg/2 Ml Vial) 4 mg IVPUSH Q8H PRN PRN Reason: Nausea and Vomiting Last Admin: 04/05/22 19:13 Dose: 4 mg Documented By: RICHARD Oxycodone HCl (Oxycodone Hcl Immed Release 5 Mg Tablet) 5 mg PO Q6H PRN PRN Reason: Pain, Moderate (Pain Scale 4-6 Last Admin: 04/06/22 23:34 Dose: 5 mg Documented By: TANO Pharmacy Consult (Consult Rx Perform Med Rec) 1 each MISCELLANE ONCE PRN PRN Reason: Consult order Pharmacy Consult (Consult Rx Vancomycin Dosing) 1 each MISCELLANE DAILY PRN PRN Reason: Consult order Sodium Chloride (0.9 % Sodium Chloride Flush 3 Ml Syringe) 3 ml IVFLUSH QSHIFT [facility] Last Admin: 04/07/22 09:18 Dose: Not Given Documented By: ALICIA Non-Admin Reason: IV Running Tamsulosin HCl (Tamsulosin Hcl 0.4 Mg Capsule) 0.4 mg PO DAILY [facility] Last Admin: 04/07/22 09:15 Dose: 0.4 mg Documented By: ALICIA Labs CBC & Chem 7: 04/07/22 05:10 04/07/22 05:10 Labs: Laboratory Results - last 24 hr 04/06/22 04/06/22 04/07/22 16:10 19:20 05:10 MCV MCH MCHC RDW Plt Count MPV Absolute Nucleated RBC Nucleated RBC % (auto) Anion Gap 16 Estim Creat Clear Calc 27.6 Estimated GFR 19 POC Glucose 362 H* 336 H Random Glucose 293 H D Calcium 7.5 L 04/07/22 04/07/22 04/07/22 05:10 07:07 11:13 MCV 82.7 MCH 26.5 L MCHC 32.0 RDW 14.3 Plt Count 371 MPV 10.7 Absolute Nucleated RBC 0.000 Nucleated RBC % (auto) 0.0 Anion Gap Estim Creat Clear Calc Estimated GFR POC Glucose 266 H 326 H Random Glucose Calcium Microbiology Microbiology Results: Microbiology 04/04/22 Unknown Gram Stain - Final Foot Left Routine Culture - Preliminary Strep agalactiae (Grp B) Staphylococcus species 04/04/22 18:15 Blood Culture - Preliminary Blood - Venous No growth after 48 hours. 04/04/22 17:53 Blood Culture - Preliminary Blood - Venous No growth after 48 hours. Procedures Date of Service Date of Service: 04/07/22 Progress Note: A&P Assessment and plan (1) Diabetic infection of left foot: Status: Acute Plan Pod 3 following amputation of the necrotic 4th toe left foot. Dressings changed today and evidence of improvement with current management. The drain was removed and silver alginate applied. No evidence necrotic tissue or underlying abscess to explain the elevated WBC. Overall the foot appears much improved with decreased erythema throughout the foot. Antibiotics per Infectious Disease. Will continue to monitor for possible further debridement. Time Spent With Patient Time: Total time spent is greater than 50% in coordination of care (as documented) at patient's floor/unit and/or counseling patient: Quality Stroke Does the patient have a stroke diagnosis?: No VTE Prior VTE?: No VTE Risk Level:: Surgical - moderate VTE Device Contraindication: N/A - Device Ordered VTE Drug Contraindication: N/A - Med Ordered
--- NOTE | 2022-04-07 14:16 | MHC.CM.PN ---
PER ROUNDS DISCUSSION, PATIENT IS NOT YET MEDICALLY CLEARED FOR DISCHARGE TODAY R/T INCREASING LEUKOCYTOSIS; ? OF WORSENING DIABETIC FOOT INFECTION; POSSIBLE AMPUTATION. D/C PLAN HOME WITH NEW [facility] vs STR. CM WILL CONTINUE TO FOLLOW FOR DISCHARGE NEEDS.
[2022-04-07] MEDS: Piperacillin Sodium/Tazobactam 2.25 GM in 0.9 % Sodium Chloride 50 ML IV ×2 (14:23→19:54)
[2022-04-07] MEDS: DAPTOmycin 700 MG in 0.9 % Sodium Chloride 50 ML 128 MG IV (15:23)
[2022-04-07 16:11] LABS: Glucose, Whole Blood 345 mg/dL (60-115)
[2022-04-07 19:36] LABS: Glucose, Whole Blood 256 mg/dL (60-115)
[2022-04-07] MEDS: oxyCODONE HCl Immed Release 5 MG TABLET PO (19:58)
[2022-04-07] MEDS: HYDROmorphone HCl 0.5 MG/0.5 ML SYRINGE IVPUSH (21:12)
[2022-04-07] MEDS: Enoxaparin Sodium 40 MG/0.4 ML SYRINGE SUBCUT (21:12)
[2022-04-07 23:14] VITALS: BP 158/78; PULSE 77; RESP 18; TEMP 36.6; O2SAT 95
[2022-04-08] MEDS: Acetaminophen 325 MG TABLET 650 MG PO (01:15)
[2022-04-08] MEDS: Piperacillin Sodium/Tazobactam 2.25 GM in 0.9 % Sodium Chloride 50 ML IV (01:17)
[2022-04-08] MEDS: 0.9 % Sodium Chloride 1,000 ML 100 ML IVCONT ×2 (01:18→16:51)
[2022-04-08 03:51] VITALS: BP 179/83; PULSE 100; RESP 20; TEMP 36.2; O2SAT 95
[2022-04-08 06:56] LABS: Hematocrit 27.1 % (42.0-52.0); Hemoglobin 8.7 g/dl (14.0-18.0); Mean Corpuscular HGB Conc 32.1 g/dl (31.0-36.0); Mean Corpuscular Hemoglobin 26.4 pg (27.0-33.0); Mean Corpuscular Volume 82.1 fL (80.0-98.0); Mean Platelet Volume 10.3 fL (9.4-12.4); Platelet Count 419 X10*3/uL (160-400); Red Cell Distribution Width 14.2 % (11.0-16.0); White Blood Count 18.4 X10*3/uL (4.8-10.8)
[2022-04-08 07:14] VITALS: BP 170/78; PULSE 72; RESP 14; TEMP 36.4; O2SAT 97
[2022-04-08 07:17] LABS: Anion Gap 15 (12-20); Blood Urea Nitrogen 38 mg/dL (9-16); Calcium 7.4 mg/dL (8.4-10.2); Carbon Dioxide 25 mmol/L (22-29); Chloride 100 mmol/L (96-108); Creatinine Clr Calc Pharmacy 25.1; Estimated Glomerular Filt Rate 17; Glucose Random 260 mg/dL (60-115); Potassium 4.2 mmol/L (3.3-5.1); Sodium 136 mmol/L (135-145)
[2022-04-08 07:43] LABS: Glucose, Whole Blood 253 mg/dL (60-115)
[2022-04-08] MEDS: Insulin Lispro 100 UNIT/ML 3 ML VIAL SUBCUT ×4 (08:13→19:54)
[2022-04-08] MEDS: Insulin Glargine,Hum.rec.anlog 100 UNIT/ML 10 ML VIAL 15 UNIT SUBCUT (08:13)
[2022-04-08] MEDS: methADONE HCl 20 MG/2 ML ORAL.CONC 65 MG PO (08:14)
[2022-04-08] MEDS: amLODIPine Besylate 10 MG TABLET PO (08:17)
--- NOTE | 2022-04-08 08:27 | P.PNGS_ITS ---
Subjective Subjective Date of Service: 04/08/22 Interval history: patient is NPO awaiting vascular procedure. He reports being very hungry. Denies significant foot pain at this time. Physical Exam Vital Signs: Vital Signs: Last Vital Signs Temp 97.6 F 04/08/22 07:14 Pulse 72 04/08/22 07:14 Resp 14 04/08/22 07:14 BP 170/78 H 04/08/22 07:14 Pulse Ox 97 04/08/22 07:14 O2 Del Method 04/08/22 07:14 O2 Flow Rate 8 04/04/22 22:25 BMI result Body Mass Index 35.2 Const: General: cooperative and no acute distress Nutritional Appearance: well nourished Orientation/consciousness: patient oriented x3 Limitations: no limitations HEENT: Head: Yes normocephalic and Yes atraumatic Resp: Effort & Inspection: normal respiratory effort, no audible wheezes, no cough and no respiratory distress Skin: Other: Warm, dry, no rash Neuro: General: patient oriented x3 Extrem: Other: Dressings changed to left foot. Overall Wounds continue to improve with decreased erythema in the toes and decreased edema overall. The wounds show evidence of new granulation tissue with no new necrotic tissue. Wounds redress ed with silver alginate and dry sterile dressings. Objective Data Active Medications Acetaminophen (Acetaminophen 325 Mg Tablet) 650 mg PO Q6H PRN PRN Reason: Pain, Moderate (Pain Scale 4-6 Last Admin: 04/08/22 01:15 Dose: 650 mg Documented By: TANO Amlodipine Besylate (Amlodipine Besylate 10 Mg Tablet) 10 mg PO DAILY [facility]; Protocol Last Admin: 04/08/22 08:17 Dose: 10 mg Documented By: EMY Atorvastatin Calcium (Atorvastatin Calcium 10 Mg Tablet) 10 mg PO DAILY [facility] Last Admin: 04/07/22 09:15 Dose: 10 mg Documented By: ALICIA Dextrose (Dextrose 50 % 25 Gm/50 Ml Syringe) 25 gm IVPUSH Q15M PRN; Protocol PRN Reason: per Hypoglycemia Standing Ord. Dextrose (Dextrose 50 % 25 Gm/50 Ml Syringe) 25 gm IVPUSH Q15M PRN; Protocol PRN Reason: per Hypoglycemia Standing Ord. Enoxaparin Sodium (Enoxaparin Sodium 40 Mg/0.4 Ml Syringe) 40 mg SUBCUT Q24H [facility] Last Admin: 04/07/22 21:12 Dose: 40 mg Documented By: TANO Glucose (Glucose Gel 15 Gm Gel..Gram.) 15 gm PO Q15M PRN; Protocol PRN Reason: per Hypoglycemia Standing Ord. Glucose (Glucose Gel 15 Gm Gel..Gram.) 15 gm PO Q15M PRN; Protocol PRN Reason: per Hypoglycemia Standing Ord. Hydromorphone HCl (Hydromorphone Hcl 0.5 Mg/0.5 Ml Syringe) 0.5 mg IVPUSH Q3H PRN; Protocol PRN Reason: Pain, Severe (Pain Scale 7-10) Last Admin: 04/07/22 21:12 Dose: 0.5 mg Documented By: TANO Hydroxyzine HCl (Hydroxyzine Hcl 25 Mg Tablet) 25 mg PO TID PRN PRN Reason: itching Sodium Chloride (Ns) 1,000 mls @ 100 mls/hr IVCONT .Q10H [facility] Daptomycin 700 mg/ Sodium (Chloride) 64 mls @ 128 mls/hr IV Q48H [facility] Last Infusion: 04/07/22 16:30 Dose: 128 mls/hr Documented By: ALICIA Insulin Glargine (Insulin Glargine,Hum.Rec.Anlog 100 Unit/Ml 10 Ml Vial) 15 unit SUBCUT DAILY [facility] Last Admin: 04/08/22 08:13 Dose: 15 unit Documented By: EMY Insulin Human Lispro (Insulin Lispro 100 Unit/Ml 3 Ml Vial) 0 unit SUBCUT QIDACHS [facility]; Protocol Last Admin: 04/08/22 08:13 Dose: 6 unit Documented By: EMY Methadone HCl (Methadone Hcl 20 Mg/2 Ml Oral.Conc) 65 mg PO DAILY [facility] Last Admin: 04/08/22 08:14 Dose: 65 mg Documented By: EMY Omeprazole (Omeprazole 20 Mg Capsule.Dr) 20 mg PO DAILY@0630 [facility] Last Admin: 04/08/22 06:25 Dose: Not Given Documented By: TANO Non-Admin Reason: NPO Ondansetron HCl (Ondansetron Hcl 4 Mg/2 Ml Vial) 4 mg IVPUSH Q8H PRN PRN Reason: Nausea and Vomiting Last Admin: 04/05/22 19:13 Dose: 4 mg Documented By: RICHARD Oxycodone HCl (Oxycodone Hcl Immed Release 5 Mg Tablet) 5 mg PO Q6H PRN PRN Reason: Pain, Moderate (Pain Scale 4-6 Last Admin: 04/07/22 19:58 Dose: 5 mg Documented By: TANO Pharmacy Consult (Consult Rx Perform Med Rec) 1 each MISCELLANE ONCE PRN PRN Reason: Consult order Pharmacy Consult (Consult Rx Vancomycin Dosing) 1 each MISCELLANE DAILY PRN PRN Reason: Consult order Sodium Chloride (0.9 % Sodium Chloride Flush 3 Ml Syringe) 3 ml IVFLUSH QSHIFT [facility] Last Admin: 04/08/22 08:26 Dose: Not Given Documented By: EMY Non-Admin Reason: IV Running Tamsulosin HCl (Tamsulosin Hcl 0.4 Mg Capsule) 0.4 mg PO DAILY [facility] Last Admin: 04/07/22 09:15 Dose: 0.4 mg Documented By: ALICIA Labs CBC & Chem 7: 04/08/22 06:12 04/08/22 06:12 Labs: Laboratory Results - last 24 hr 04/07/22 04/07/22 04/07/22 11:13 15:21 19:30 MCV MCH MCHC RDW Plt Count MPV Absolute Nucleated RBC Nucleated RBC % (auto) Anion Gap Estim Creat Clear Calc Estimated GFR POC Glucose 326 H 345 H 256 H Random Glucose Calcium 04/08/22 04/08/22 04/08/22 06:12 06:12 07:34 MCV 82.1 MCH 26.4 L MCHC 32.1 RDW 14.2 Plt Count 419 H MPV 10.3 Absolute Nucleated RBC 0.000 Nucleated RBC % (auto) 0.0 Anion Gap 15 Estim Creat Clear Calc 25.1 Estimated GFR 17 POC Glucose 253 H Random Glucose 260 H Calcium 7.4 L Microbiology Microbiology Results: Microbiology 04/04/22 Unknown Gram Stain - Final Foot Left Routine Culture - Final Strep agalactiae (Grp B) Methicillin Res Staph Aureus Procedures Date of Service Date of Service: 04/08/22 Progress Note: A&P Assessment and plan (1) Acute kidney injury: Status: Acute (2) PAD (peripheral artery disease): Status: Acute (3) Toe necrosis: Status: Acute Plan 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 Overall the wounds appear much improved with decreased erythema and edema. Patient is awaiting arteriogram today. Antibiotics per Infectious Disease. Time Spent With Patient Time: Total time spent is greater than 50% in coordination of care (as documented) at patient's floor/unit and/or counseling patient: Quality Stroke Does the patient have a stroke diagnosis?: No VTE Prior VTE?: No VTE Risk Level:: Surgical - moderate VTE Device Contraindication: N/A - Device Ordered VTE Drug Contraindication: N/A - Med Ordered
--- NOTE | 2022-04-08 08:40 | PM.UROCN ---
History of Present Illness Consult details Consult date: 04/06/22 Narrative: Consulting complained urinary retention Ulysses is well known to Urology Presents to hospital with question of necrotic toe Poorly controlled diabetic Treated for prostate cancer with prior radiation and hormone therapy Found to have urinary retention with Castano catheter placement Presenting creatinine 0.9. Currently elevated to 3.8 suggestive of significant renal impingement Catheter draining well Recommend changing to catheter cap for ease of management to encourage ambulation Will start alpha-melissa and can perform voiding trial after 5-7 days Review of Systems Constitutional: Constitutional: Reports as per HPI and Reports no additional constitutional complaints Cardiovascular: Cardiovascular: Reports as per HPI and Reports no additional cardiovascular complaints Respiratory: Respiratory: Reports as per HPI and Reports no additional respiratory complaints Gastrointestinal: Gastrointestinal: Reports as per HPI and Reports no additional gastrointestinal complaints Genitourinary: Genitourinary: Reports as per HPI Musculoskeletal: Musculoskeletal: Reports no additional musculoskeletal complaints and Reports as per HPI Neurologic: Reports system reviewed and no additional complaints, except as documented and Reports as per HPI PMFSH Past Medical History Medical History Diabetes Opioid use disorder Family History Family history: reviewed and not pertinent Social History Social History Household Members: Unknown / Unable to assess Housing: Unknown / Unable to assess Patient Tobacco Use Status: Never used Tobacco service: No Current occupational status: disabled Travel History Ebola Risk: Travel/Contact With Anyone From Affected Area/s: No Has Patient Experienced Ebola Symptoms: No Meds Allergies Allergy/AdvReac Type Severity Reaction Status Date / Time No Known Allergies Allergy Verified 02/01/22 12:12 [No Known Allergies*] Active Medications: Current Medications Acetaminophen (Acetaminophen 325 Mg Tablet) 650 mg PO Q6H PRN PRN Reason: Pain, Moderate (Pain Scale 4-6 Last Admin: 04/08/22 01:15 Dose: 650 mg Amlodipine Besylate (Amlodipine Besylate 10 Mg Tablet) 10 mg PO DAILY [facility]; Protocol Last Admin: 04/08/22 08:17 Dose: 10 mg Atorvastatin Calcium (Atorvastatin Calcium 10 Mg Tablet) 10 mg PO DAILY [facility] Last Admin: 04/07/22 09:15 Dose: 10 mg Dextrose (Dextrose 50 % 25 Gm/50 Ml Syringe) 25 gm IVPUSH Q15M PRN; Protocol PRN Reason: per Hypoglycemia Standing Ord. Dextrose (Dextrose 50 % 25 Gm/50 Ml Syringe) 25 gm IVPUSH Q15M PRN; Protocol PRN Reason: per Hypoglycemia Standing Ord. Enoxaparin Sodium (Enoxaparin Sodium 40 Mg/0.4 Ml Syringe) 40 mg SUBCUT Q24H [facility] Last Admin: 04/07/22 21:12 Dose: 40 mg Glucose (Glucose Gel 15 Gm Gel..Gram.) 15 gm PO Q15M PRN; Protocol PRN Reason: per Hypoglycemia Standing Ord. Glucose (Glucose Gel 15 Gm Gel..Gram.) 15 gm PO Q15M PRN; Protocol PRN Reason: per Hypoglycemia Standing Ord. Hydromorphone HCl (Hydromorphone Hcl 0.5 Mg/0.5 Ml Syringe) 0.5 mg IVPUSH Q3H PRN; Protocol PRN Reason: Pain, Severe (Pain Scale 7-10) Last Admin: 04/07/22 21:12 Dose: 0.5 mg Hydroxyzine HCl (Hydroxyzine Hcl 25 Mg Tablet) 25 mg PO TID PRN PRN Reason: itching Sodium Chloride (Ns) 1,000 mls @ 100 mls/hr IVCONT .Q10H [facility] Daptomycin 700 mg/ Sodium (Chloride) 64 mls @ 128 mls/hr IV Q48H [facility] Last Infusion: 04/07/22 16:30 Dose: Infused Insulin Glargine (Insulin Glargine,Hum.Rec.Anlog 100 Unit/Ml 10 Ml Vial) 15 unit SUBCUT DAILY [facility] Last Admin: 04/08/22 08:13 Dose: 15 unit Insulin Human Lispro (Insulin Lispro 100 Unit/Ml 3 Ml Vial) 0 unit SUBCUT QIDACHS [facility]; Protocol Last Admin: 04/08/22 08:13 Dose: 6 unit Methadone HCl (Methadone Hcl 20 Mg/2 Ml Oral.Conc) 65 mg PO DAILY [facility] Last Admin: 04/08/22 08:14 Dose: 65 mg Omeprazole (Omeprazole 20 Mg Capsule.Dr) 20 mg PO DAILY@0630 [facility] Last Admin: 04/08/22 06:25 Dose: Not Given Ondansetron HCl (Ondansetron Hcl 4 Mg/2 Ml Vial) 4 mg IVPUSH Q8H PRN PRN Reason: Nausea and Vomiting Last Admin: 04/05/22 19:13 Dose: 4 mg Oxycodone HCl (Oxycodone Hcl Immed Release 5 Mg Tablet) 5 mg PO Q6H PRN PRN Reason: Pain, Moderate (Pain Scale 4-6 Last Admin: 04/07/22 19:58 Dose: 5 mg Pharmacy Consult (Consult Rx Perform Med Rec) 1 each MISCELLANE ONCE PRN PRN Reason: Consult order Pharmacy Consult (Consult Rx Vancomycin Dosing) 1 each MISCELLANE DAILY PRN PRN Reason: Consult order Sodium Chloride (0.9 % Sodium Chloride Flush 3 Ml Syringe) 3 ml IVFLUSH QSHIFT [facility] Last Admin: 04/08/22 08:26 Dose: Not Given Tamsulosin HCl (Tamsulosin Hcl 0.4 Mg Capsule) 0.4 mg PO DAILY [facility] Last Admin: 04/07/22 09:15 Dose: 0.4 mg Home Medications Medication Instructions Recorded Confirmed Last Taken Type atorvastatin 10 mg tablet 1 tab PO DAILY 04/05/22 04/05/22 Unknown History insulin aspart U-100 100 unit/mL 0 sliding scale dose subcut QIDACHS 04/05/22 04/05/22 Unknown History (3 mL) subcutaneous pen (Novolog Flexpen U-100 Insulin aspart) insulin glargine 100 unit/mL (3 20 - 30 unit subcut DAILY 04/05/22 04/05/22 Unknown History mL) subcutaneous pen (Lantus Solostar U-100 Insulin) lisinopril 20 mg tablet 20 mg PO DAILY 04/05/22 04/05/22 Unknown History metformin 1,000 mg tablet 1,000 mg PO BID 04/05/22 04/05/22 Unknown History methadone 10 mg/5 mL oral solution 65 mg PO DAILY 04/05/22 04/05/22 04/04/22 History omeprazole 20 mg capsule,delayed 20 mg PO DAILY 04/05/22 04/05/22 Unknown History release Physical Exam Vital Signs: Vital Signs: Last Vital Signs Temp 97.6 F 04/08/22 07:14 Pulse 72 04/08/22 07:14 Resp 14 04/08/22 07:14 BP 170/78 H 04/08/22 07:14 Pulse Ox 97 04/08/22 07:14 O2 Del Method 04/08/22 07:14 O2 Flow Rate 8 04/04/22 22:25 BMI result Body Mass Index 35.2 Const: General: cooperative, healthy appearing, comfortable and no acute distress Orientation/consciousness: patient oriented x3 HEENT: Face and sinus: Yes normal facial exam Mouth: moist mucous membranes Neck: Neck: Yes normal visual inspection, Yes full ROM and Yes trachea midline Chest: Chest palpation & inspection: normal inspection of the chest Resp: Effort & Inspection: normal respiratory effort, able to speak in complete sentences and no respiratory distress GI: Inspection: Yes normal to inspection Back/Spine/Pelvis: Cervical Spine: normal cervical lordosis Thoracic/Lumbar Spine: thoracic and lumbar spine normal to inspection Skin: General skin exam: no rashes or lesions noted Neuro: General: patient oriented x3, tone normal and moves all extremities Extrem: General: Yes normal to inspection and Yes capillary refill normal Results Labs Result diagrams: 04/08/22 06:12 04/08/22 06:12 Labs: Abnormal lab results 04/07/22 04/07/22 04/07/22 Range/Units 11:13 15:21 19:30 WBC (4.8-10.8) X10*3/uL RBC (4.60-5.80) X10*6/uL Hgb (14.0-18.0) g/dl Hct (42.0-52.0) % MCH (27.0-33.0) pg Plt Count (160-400) X10*3/uL BUN (9-16) mg/dL Creatinine (0.5-1.4) mg/dL POC Glucose 326 H 345 H 256 H (60-115) mg/dL Random Glucose (60-115) mg/dL Calcium (8.4-10.2) mg/dL 04/08/22 04/08/22 04/08/22 Range/Units 06:12 06:12 07:34 WBC 18.4 H (4.8-10.8) X10*3/uL RBC 3.30 L (4.60-5.80) X10*6/uL Hgb 8.7 L (14.0-18.0) g/dl Hct 27.1 L (42.0-52.0) % MCH 26.4 L (27.0-33.0) pg Plt Count 419 H (160-400) X10*3/uL BUN 38 H (9-16) mg/dL Creatinine 3.73 H (0.5-1.4) mg/dL POC Glucose 253 H (60-115) mg/dL Random Glucose 260 H (60-115) mg/dL Calcium 7.4 L (8.4-10.2) mg/dL Short CBC 04/08/22 Range/Units 06:12 WBC 18.4 H (4.8-10.8) X10*3/uL Hgb 8.7 L (14.0-18.0) g/dl Hct 27.1 L (42.0-52.0) % Plt Count 419 H (160-400) X10*3/uL BMP 04/08/22 06:12 Sodium 136 Potassium 4.2 Chloride 100 Carbon Dioxide 25 BUN 38 H Creatinine 3.73 H Calcium 7.4 L Urine 04/06/22 Range/Units 06:30 Urine Color Yellow Urine Appearance Turbid Urine pH 5.5 (5.0-8.0) Ur Specific Effort 1.010 (1.005-1.025) Urine Protein 30 (1+) H (Neg-Trace) mg/dL Urine Glucose (UA) 250 H (Negative) mg/dL All other labs normal. Assessment and Plan (1) Urinary retention with incomplete bladder emptying: Status: Acute Plan Alpha-melissa Castano cap Voiding trial next Tuesday if still in hospital Procedures Date of Service Date of Service: 04/06/22
[2022-04-08 11:07] VITALS: BP 164/77; PULSE 79; RESP 17; TEMP 36.5; O2SAT 96
--- NOTE | 2022-04-08 11:10 | HO.VASCPN ---
Subjective Subjective Date of Service: 04/08/22 Patient reports: no new complaints Interval history: Patient seen and examined. Events over the last 24 hours noted. He was actually scheduled for angiogram today. Renal function has continued to deteriorate. He has been doing well in terms his left lower extremity wound. Now for routine follow-up. Physical Exam Vital Signs: Vital Signs: Last Vital Signs Temp 97.6 F 04/08/22 07:14 Pulse 72 04/08/22 07:14 Resp 14 04/08/22 07:14 BP 170/78 H 04/08/22 07:14 Pulse Ox 97 04/08/22 07:14 O2 Del Method 04/08/22 07:14 O2 Flow Rate 8 04/04/22 22:25 BMI result Body Mass Index 35.2 Const: General: cooperative, healthy appearing and no acute distress Orientation/consciousness: oriented to person, oriented to place and oriented to time HEENT: Head: Yes normal to inspection Neck: Carotids: no bruits Chest: Chest palpation & inspection: normal inspection of the chest Resp: Effort & Inspection: normal respiratory effort and able to speak in complete sentences Auscultation: clear to auscultation bilaterally Cardio: Rate: regular rate Heart sounds: S1 normal heart sound present and S2 normal heart sound present GI: Inspection: Yes normal to inspection Skin: General skin exam: no rashes or lesions noted Wounds: wounds noted (Left leg dressing clean dry intact) Neuro: General: oriented to person, oriented to place, oriented to time and CN's II-XI intact bilaterally Extrem: General: Yes normal to inspection, Yes full ROM and Yes no clubbing, cyanosis or edema Psych: Appearance: grossly normal and well kempt Speech and movement: Normal speech and movement present Affect: normal affect Progress Note: A&P Assessment and plan (1) PAD (peripheral artery disease): Status: Acute Plan In short patient has a nonhealing left lower extremity ulcer. He does have an element of peripheral vascular disease and would benefit from left leg endovascular intervention. Would like his renal function to improve prior to any intervention. He was at a GFR of greater than 60 just 4 days ago. Would like that to recover back to baseline prior to any intervention. We will continue to follow along with you. Thank you for allowing us to assist in his care. Time Spent With Patient Time: Total time spent is greater than 50% in coordination of care (as documented) at patient's floor/unit and/or counseling patient: Procedures Date of Service Date of Service: 04/08/22 Quality Stroke Does the patient have a stroke diagnosis?: No VTE Prior VTE?: No VTE Risk Level:: Surgical - moderate VTE Device Contraindication: N/A - Device Ordered VTE Drug Contraindication: N/A - Med Ordered
[2022-04-08 11:12] LABS: Glucose, Whole Blood 237 mg/dL (60-115)
--- NOTE | 2022-04-08 11:22 | PM.PNNEP ---
Subjective Subjective Date of Service: 04/08/22 Interval history: Events noted. All recent data reviewed. Serum creatinine not plateaued. Urology seen patient Physical Exam Vital Signs: Vital Signs: Last Vital Signs Temp 97.7 F 04/08/22 11:07 Pulse 79 04/08/22 11:07 Resp 17 04/08/22 11:07 BP 164/77 H 04/08/22 11:07 Pulse Ox 96 04/08/22 11:07 O2 Del Method 04/08/22 11:07 O2 Flow Rate 8 04/04/22 22:25 BMI result Body Mass Index 35.2 Const: General: no acute distress Orientation/consciousness: patient oriented x3 Eyes: EOM: EOMs intact bilaterally Neck: Neck: Yes supple Resp: Auscultation: diminished lung sounds Cardio: Rate: regular rate GI: Palpation (GI): Soft to palpation Neuro: General: patient oriented x3 and moves all extremities Objective Data Labs CBC & Chem 7: 04/08/22 06:12 04/08/22 06:12 Labs: Laboratory Results - last 24 hr 04/07/22 04/07/22 04/07/22 11:13 15:21 19:30 WBC RBC Hgb Hct MCV MCH MCHC RDW Plt Count MPV Absolute Nucleated RBC Nucleated RBC % (auto) Sodium Potassium Chloride Carbon Dioxide Anion Gap BUN Creatinine Estim Creat Clear Calc Estimated GFR POC Glucose 326 H 345 H 256 H Random Glucose Calcium 04/08/22 04/08/22 04/08/22 06:12 06:12 07:34 WBC 18.4 H RBC 3.30 L Hgb 8.7 L Hct 27.1 L MCV 82.1 MCH 26.4 L MCHC 32.1 RDW 14.2 Plt Count 419 H MPV 10.3 Absolute Nucleated RBC 0.000 Nucleated RBC % (auto) 0.0 Sodium 136 Potassium 4.2 Chloride 100 Carbon Dioxide 25 Anion Gap 15 BUN 38 H Creatinine 3.73 H Estim Creat Clear Calc 25.1 Estimated GFR 17 POC Glucose 253 H Random Glucose 260 H Calcium 7.4 L 04/08/22 11:03 WBC RBC Hgb Hct MCV MCH MCHC RDW Plt Count MPV Absolute Nucleated RBC Nucleated RBC % (auto) Sodium Potassium Chloride Carbon Dioxide Anion Gap BUN Creatinine Estim Creat Clear Calc Estimated GFR POC Glucose 237 H Random Glucose Calcium Microbiology Microbiology Results: Microbiology 04/04/22 Unknown Foot Left Gram Stain - Final 04/04/22 Unknown Foot Left Routine Culture - Final Strep agalactiae (Grp B) Methicillin Res Staph Aureus 04/04/22 18:15 Blood - Venous Blood Culture - Preliminary No growth after 48 hours. 04/04/22 17:53 Blood - Venous Blood Culture - Preliminary No growth after 48 hours. Procedures Date of Service Date of Service: 04/08/22 Assessment & Plan Assessment and plan (1) Acute kidney injury: Status: Acute Assessment and Plan: Acute Kidney Injury likely due to tubular injury (multifactorial- septic ATN & had been receiving Vanco) No significant RBC in the urine to suspect GN Had been on Vanco/Zosyn- already changed to Meropenem Was on ACEI at home which is on hold Has a Castano catheter with good urine output No indication for renal replacement Labs AM. Shall closely follow up Time Spent With Patient Time: Total time spent is greater than 50% in coordination of care (as documented) at patient's floor/unit and/or counseling patient: Progress Note: Quality Stroke Does the patient have a stroke diagnosis?: No
[2022-04-08 15:51] VITALS: BP 176/79; PULSE 85; RESP 17; TEMP 37.2; O2SAT 97
--- NOTE | 2022-04-08 16:15 | P.PNIM_ITS ---
Subjective Subjective Date of Service: 04/09/22 Interval History: Patient npo for angiogram today however renal function worsened therefore procedure canceled, patient feeling hungry requesting for food, otherwise denies nausea vomiting no abdominal pain complain of some back discomfort, no fevers no chills. Review of Systems [employer] no headache no dizziness CVS no chest pain, no palpitation Respiratory no cough, no shortness of breath Review of Systems: Yes all other systems are reviewed and are negative Physical Exam Vital Signs: Vital Signs: Last Vital Signs Temp 99.0 F 04/08/22 15:51 Pulse 85 04/08/22 15:51 Resp 17 04/08/22 15:51 BP 176/79 H 04/08/22 15:51 Pulse Ox 97 04/08/22 15:51 O2 Del Method 04/08/22 15:51 O2 Flow Rate 8 04/04/22 22:25 BMI result Body Mass Index 35.2 Const: Other: General -awake alert x3, no acute distress Neck no JVD Cardiovascular - regular rate and rhythm, S1-S2 Lungs - normal respiratory effort, clear to auscultation bilaterally, no wheezing Abdomen - soft, nontender, bowel sounds audible no rebound or guarding Extremities -bilateral nonpitting edema, left greater than right, LLE in dressing / jeramie wrap Neuro - awake and alert, decreased sensation lower extremities left greater than right Psych appropriate affect Castano clear urine Objective Data Active Medications Acetaminophen (Acetaminophen 325 Mg Tablet) 650 mg PO Q6H PRN PRN Reason: Pain, Moderate (Pain Scale 4-6 Last Admin: 04/08/22 01:15 Dose: 650 mg Documented By: TANO Amlodipine Besylate (Amlodipine Besylate 10 Mg Tablet) 10 mg PO DAILY COUNTS INCLUDE 234 BEDS AT THE [facility]; Protocol Last Admin: 04/08/22 08:17 Dose: 10 mg Documented By: EMY Atorvastatin Calcium (Atorvastatin Calcium 10 Mg Tablet) 10 mg PO DAILY COUNTS INCLUDE 234 BEDS AT THE [facility] Last Admin: 04/08/22 09:37 Dose: Not Given Documented By: EMY Non-Admin Reason: NPO Dextrose (Dextrose 50 % 25 Gm/50 Ml Syringe) 25 gm IVPUSH Q15M PRN; Protocol PRN Reason: per Hypoglycemia Standing Ord. Dextrose (Dextrose 50 % 25 Gm/50 Ml Syringe) 25 gm IVPUSH Q15M PRN; Protocol PRN Reason: per Hypoglycemia Standing Ord. Enoxaparin Sodium (Enoxaparin Sodium 40 Mg/0.4 Ml Syringe) 40 mg SUBCUT Q24H COUNTS INCLUDE 234 BEDS AT THE [facility] Last Admin: 04/07/22 21:12 Dose: 40 mg Documented By: TANO Glucose (Glucose Gel 15 Gm Gel..Gram.) 15 gm PO Q15M PRN; Protocol PRN Reason: per Hypoglycemia Standing Ord. Glucose (Glucose Gel 15 Gm Gel..Gram.) 15 gm PO Q15M PRN; Protocol PRN Reason: per Hypoglycemia Standing Ord. Hydromorphone HCl (Hydromorphone Hcl 0.5 Mg/0.5 Ml Syringe) 0.5 mg IVPUSH Q3H PRN; Protocol PRN Reason: Pain, Severe (Pain Scale 7-10) Last Admin: 04/07/22 21:12 Dose: 0.5 mg Documented By: TANO Hydroxyzine HCl (Hydroxyzine Hcl 25 Mg Tablet) 25 mg PO TID PRN PRN Reason: itching Sodium Chloride (Ns) 1,000 mls @ 100 mls/hr IVCONT .Q10H COUNTS INCLUDE 234 BEDS AT THE [facility] Last Admin: 04/08/22 09:20 Dose: Not Given Documented By: EMY Non-Admin Reason: IV Running Daptomycin 700 mg/ Sodium (Chloride) 64 mls @ 128 mls/hr IV Q48H COUNTS INCLUDE 234 BEDS AT THE [facility] Last Infusion: 04/07/22 16:30 Dose: 128 mls/hr Documented By: ALICIA Insulin Glargine (Insulin Glargine,Hum.Rec.Anlog 100 Unit/Ml 10 Ml Vial) 15 unit SUBCUT DAILY COUNTS INCLUDE 234 BEDS AT THE [facility] Last Admin: 04/08/22 08:13 Dose: 15 unit Documented By: EMY Insulin Human Lispro (Insulin Lispro 100 Unit/Ml 3 Ml Vial) 0 unit SUBCUT QIDACHS COUNTS INCLUDE 234 BEDS AT THE [facility]; Protocol Last Admin: 04/08/22 11:43 Dose: 4 unit Documented By: EMY Methadone HCl (Methadone Hcl 20 Mg/2 Ml Oral.Conc) 65 mg PO DAILY COUNTS INCLUDE 234 BEDS AT THE [facility] Last Admin: 04/08/22 08:14 Dose: 65 mg Documented By: EMY Omeprazole (Omeprazole 20 Mg Capsule.Dr) 20 mg PO DAILY@0630 COUNTS INCLUDE 234 BEDS AT THE [facility] Last Admin: 04/08/22 06:25 Dose: Not Given Documented By: TANO Non-Admin Reason: NPO Ondansetron HCl (Ondansetron Hcl 4 Mg/2 Ml Vial) 4 mg IVPUSH Q8H PRN PRN Reason: Nausea and Vomiting Last Admin: 04/05/22 19:13 Dose: 4 mg Documented By: RICHARD Oxycodone HCl (Oxycodone Hcl Immed Release 5 Mg Tablet) 5 mg PO Q6H PRN PRN Reason: Pain, Moderate (Pain Scale 4-6 Last Admin: 04/07/22 19:58 Dose: 5 mg Documented By: TANO Pharmacy Consult (Consult Rx Perform Med Rec) 1 each MISCELLANE ONCE PRN PRN Reason: Consult order Pharmacy Consult (Consult Rx Vancomycin Dosing) 1 each MISCELLANE DAILY PRN PRN Reason: Consult order Sodium Chloride (0.9 % Sodium Chloride Flush 3 Ml Syringe) 3 ml IVFLUSH QSHIFT COUNTS INCLUDE 234 BEDS AT THE [facility] Last Admin: 04/08/22 08:26 Dose: Not Given Documented By: EMY Non-Admin Reason: IV Running Tamsulosin HCl (Tamsulosin Hcl 0.4 Mg Capsule) 0.4 mg PO DAILY COUNTS INCLUDE 234 BEDS AT THE [facility] Last Admin: 04/08/22 09:38 Dose: Not Given Documented By: EMY Non-Admin Reason: NPO Labs CBC & Chem 7: 04/09/22 05:11 04/09/22 05:11 Labs: Laboratory Results - last 24 hr 04/07/22 04/08/22 04/08/22 19:30 06:12 06:12 MCV 82.1 MCH 26.4 L MCHC 32.1 RDW 14.2 Plt Count 419 H MPV 10.3 Absolute Nucleated RBC 0.000 Nucleated RBC % (auto) 0.0 Anion Gap 15 Estim Creat Clear Calc 25.1 Estimated GFR 17 POC Glucose 256 H Random Glucose 260 H Calcium 7.4 L 04/08/22 04/08/22 07:34 11:03 MCV MCH MCHC RDW Plt Count MPV Absolute Nucleated RBC Nucleated RBC % (auto) Anion Gap Estim Creat Clear Calc Estimated GFR POC Glucose 253 H 237 H Random Glucose Calcium Microbiology Microbiology Results: Microbiology 04/04/22 Unknown Gram Stain - Final Foot Left Routine Culture - Final Strep agalactiae (Grp B) Methicillin Res Staph Aureus Assessment and Plan (1) PAD (peripheral artery disease): Status: Acute (2) Diabetic infection of left foot: Status: Acute (3) Toe necrosis: Status: Acute (4) Osteomyelitis: Status: Acute (5) Opioid use disorder: Status: Acute Plan 56 year old male with a PMH of insulin dependant DM who is admitted under to the general surgical services for diabetic foot infection. Medical consult requested for mgmt of DM + med mgmt. 1. Left foot Diabetic infection / gas gangrene No foot pain likely due to diabetic neuropathy s/p amp 4th toe + debridement pod #3 status post zosyn and vancomcyin x1 day , now home on IV daptomycin, blood cultures x2 negative, wound culture grew group B strep agalactiae and Staph aureus WBC trending down, no fevers, ID recommend 6 weeks of IV antibiotic Being followed closely by Dr. Edwards and Dr. Brown for peripheral vascular disease will need left leg endovascular peripheral angiogram with possible angioplasty, stent and or atherectomy, will wait for renal function to improve Each take patient under medical service due to multiple medical issues. 2. AMY, SCr was 0.9 on admission gradually bumped to 3.7 today case discussed with Nephrology likely ATN urinary retention also playing a role, continue Castano catheter, flomax, all meds renally dose Hold JERAMIE, continue IV fluid Follow BMP 3. Acute anemia Hematocrit dropped likely dilutional and due to acute illness, no evidence of thao bleeding at this time Normal B12 folate and iron , monitor CBC, hold transfusion 4. DM Elevated blood sugars continue basal+ bolus ADA diet 5. HTN Elevated blood pressure,off meds , Jeramie on hold due to AMY , on Norvasc 10 mg, will discuss with Renal regarding antihypertensive 6. Chronic opiate dependence continue methadone DVT prophylaxis with Lovenox Code status full code Disposition patient will need continued inpatient hospitalization due to acute r enal failure, left infection requiring IV antibiotic and possible vascular intervention. Quality Stroke Does the patient have a stroke diagnosis?: No VTE Prior VTE?: No VTE Risk Level:: Surgical - moderate VTE Device Contraindication: N/A - Device Ordered VTE Drug Contraindication: N/A - Med Ordered
[2022-04-08 16:49] LABS: Glucose, Whole Blood 309 mg/dL (60-115)
[2022-04-08] MEDS: HYDROmorphone HCl 0.5 MG/0.5 ML SYRINGE IVPUSH (17:06)
[2022-04-08 18:46] VITALS: BP 146/61; PULSE 82; RESP 17; TEMP 37.9; O2SAT 97
[2022-04-08 20:00] LABS: Glucose, Whole Blood 281 mg/dL (60-115)
[2022-04-08 23:14] VITALS: BP 166/73; PULSE 71; RESP 16; TEMP 36.5; O2SAT 95
[2022-04-08] MEDS: Enoxaparin Sodium 40 MG/0.4 ML SYRINGE SUBCUT (23:55)
[2022-04-09] VITALS (7 sets, daily range): BP systolic 146–177; BP diastolic 70–79; PULSE 72–84; RESP 15–18; TEMP 36.2–36.6; O2SAT 96–97
[2022-04-09] MEDS: HYDROmorphone HCl 0.5 MG/0.5 ML SYRINGE IVPUSH ×2 (03:25)
[2022-04-09] MEDS: 0.9 % Sodium Chloride 1,000 ML 80 ML IVCONT (05:10)
[2022-04-09] MEDS: Omeprazole 20 MG CAPSULE.DR PO (05:36)
[2022-04-09 06:14] LABS: Hematocrit 26.9 % (42.0-52.0); Hemoglobin 8.5 g/dl (14.0-18.0); Mean Corpuscular HGB Conc 31.6 g/dl (31.0-36.0); Mean Corpuscular Volume 82.3 fL (80.0-98.0); Mean Platelet Volume 10.2 fL (9.4-12.4); Platelet Count 408 X10*3/uL (160-400); Red Blood Count 3.27 X10*6/uL (4.60-5.80); Red Cell Distribution Width 14.1 % (11.0-16.0); White Blood Count 15.5 X10*3/uL (4.8-10.8)
[2022-04-09 06:46] LABS: Anion Gap 14 (12-20); Blood Urea Nitrogen 40 mg/dL (9-16); Calcium 7.5 mg/dL (8.4-10.2); Carbon Dioxide 25 mmol/L (22-29); Chloride 102 mmol/L (96-108); Estimated Glomerular Filt Rate 17; Glucose Random 241 mg/dL (60-115); Potassium 4.2 mmol/L (3.3-5.1); Sodium 137 mmol/L (135-145)
[2022-04-09 07:34] LABS: Glucose, Whole Blood 228 mg/dL (60-115)
[2022-04-09] MEDS: Insulin Lispro 100 UNIT/ML 3 ML VIAL SUBCUT ×4 (07:57→20:56)
[2022-04-09] MEDS: Insulin Glargine,Hum.rec.anlog 100 UNIT/ML 10 ML VIAL 15 UNIT SUBCUT (07:57)
[2022-04-09] MEDS: methADONE HCl 20 MG/2 ML ORAL.CONC 65 MG PO (07:58)
[2022-04-09] MEDS: Tamsulosin HCL 0.4 MG CAPSULE PO (07:59)
[2022-04-09] MEDS: Atorvastatin Calcium 10 MG TABLET PO (08:00)
[2022-04-09] MEDS: amLODIPine Besylate 10 MG TABLET PO (08:00)
--- NOTE | 2022-04-09 08:47 | PM.PNGS ---
Subjective Subjective Date of Service: 04/09/22 Interval history: The patient feels tired today with some pain in the left foot. Physical Exam Vital Signs: Vital Signs: Last Vital Signs Temp 97.2 F 04/09/22 07:34 Pulse 74 04/09/22 07:34 Resp 15 04/09/22 07:34 BP 168/75 H 04/09/22 07:34 Pulse Ox 97 04/09/22 07:34 O2 Del Method 04/09/22 07:34 O2 Flow Rate 8 04/04/22 22:25 BMI result Body Mass Index 35.2 Const: General: cooperative and no acute distress Nutritional Appearance: well nourished Orientation/consciousness: patient oriented x3 Limitations: no limitations HEENT: Head: Yes normocephalic and Yes atraumatic Resp: Effort & Inspection: normal respiratory effort, no audible wheezes, no cough and no respiratory distress Skin: Other: Warm, dry, no rash Neuro: General: patient oriented x3 Extrem: Other: Dressings changed to left foot. Small patch of necrotic skin noted in the plantar surface below the 3rd and 4th toe on the left foot. Foot with marked decrease in edema and erythema. Also marked decrease in erythema and edema in the calf. Necrotic patch of skin measuring approximately 2 x 4 cm extending into subcutaneous tissue was excised using a scissors the bedside. Excision and extended down to viable tissue in the subcutaneous space. Wound was then packed with silver alginate followed by fluffed gauze, Kerlix, and Jeramie bandage. Patient tolerated the excision well. Objective Data Active Medications Acetaminophen (Acetaminophen 325 Mg Tablet) 650 mg PO Q6H PRN PRN Reason: Pain, Moderate (Pain Scale 4-6 Last Admin: 04/08/22 01:15 Dose: 650 mg Documented By: TANO Amlodipine Besylate (Amlodipine Besylate 10 Mg Tablet) 10 mg PO DAILY [facility]; Protocol Last Admin: 04/09/22 08:00 Dose: 10 mg Documented By: EMY Atorvastatin Calcium (Atorvastatin Calcium 10 Mg Tablet) 10 mg PO DAILY [facility] Last Admin: 04/09/22 08:00 Dose: 10 mg Documented By: EMY Dextrose (Dextrose 50 % 25 Gm/50 Ml Syringe) 25 gm IVPUSH Q15M PRN; Protocol PRN Reason: per Hypoglycemia Standing Ord. Dextrose (Dextrose 50 % 25 Gm/50 Ml Syringe) 25 gm IVPUSH Q15M PRN; Protocol PRN Reason: per Hypoglycemia Standing Ord. Enoxaparin Sodium (Enoxaparin Sodium 40 Mg/0.4 Ml Syringe) 40 mg SUBCUT Q24H [facility] Last Admin: 04/08/22 23:55 Dose: 40 mg Documented By: MARCELL Glucose (Glucose Gel 15 Gm Gel..Gram.) 15 gm PO Q15M PRN; Protocol PRN Reason: per Hypoglycemia Standing Ord. Glucose (Glucose Gel 15 Gm Gel..Gram.) 15 gm PO Q15M PRN; Protocol PRN Reason: per Hypoglycemia Standing Ord. Hydromorphone HCl (Hydromorphone Hcl 0.5 Mg/0.5 Ml Syringe) 0.5 mg IVPUSH Q3H PRN; Protocol PRN Reason: Pain, Severe (Pain Scale 7-10) Last Admin: 04/09/22 03:25 Dose: 0.5 mg Documented By: MARCELL Hydroxyzine HCl (Hydroxyzine Hcl 25 Mg Tablet) 25 mg PO TID PRN PRN Reason: itching Sodium Chloride (Ns) 1,000 mls @ 80 mls/hr IVCONT .[id number] [facility] Last Admin: 04/09/22 05:10 Dose: 80 mls/hr Documented By: MARCELL Daptomycin 700 mg/ Sodium (Chloride) 64 mls @ 128 mls/hr IV Q48H [facility] Last Infusion: 04/07/22 16:30 Dose: 128 mls/hr Documented By: ALICIA Insulin Glargine (Insulin Glargine,Hum.Rec.Anlog 100 Unit/Ml 10 Ml Vial) 15 unit SUBCUT DAILY [facility] Last Admin: 04/09/22 07:57 Dose: 15 unit Documented By: EMY Insulin Human Lispro (Insulin Lispro 100 Unit/Ml 3 Ml Vial) 0 unit SUBCUT QIDACHS [facility]; Protocol Last Admin: 04/09/22 07:57 Dose: 4 unit Documented By: EMY Methadone HCl (Methadone Hcl 20 Mg/2 Ml Oral.Conc) 65 mg PO DAILY [facility] Last Admin: 04/09/22 07:58 Dose: 65 mg Documented By: EMY Omeprazole (Omeprazole 20 Mg Capsule.Dr) 20 mg PO DAILY@0630 [facility] Last Admin: 04/09/22 05:36 Dose: 20 mg Documented By: MARCELL Ondansetron HCl (Ondansetron Hcl 4 Mg/2 Ml Vial) 4 mg IVPUSH Q8H PRN PRN Reason: Nausea and Vomiting Last Admin: 04/05/22 19:13 Dose: 4 mg Documented By: RICHARD Oxycodone HCl (Oxycodone Hcl Immed Release 5 Mg Tablet) 5 mg PO Q6H PRN PRN Reason: Pain, Moderate (Pain Scale 4-6 Last Admin: 04/07/22 19:58 Dose: 5 mg Documented By: TANO Pharmacy Consult (Consult Rx Perform Med Rec) 1 each MISCELLANE ONCE PRN PRN Reason: Consult order Pharmacy Consult (Consult Rx Vancomycin Dosing) 1 each MISCELLANE DAILY PRN PRN Reason: Consult order Sodium Chloride (0.9 % Sodium Chloride Flush 3 Ml Syringe) 3 ml IVFLUSH QSHIFT [facility] Last Admin: 04/08/22 23:55 Dose: Not Given Documented By: MARCELL Non-Admin Reason: IV Running Tamsulosin HCl (Tamsulosin Hcl 0.4 Mg Capsule) 0.4 mg PO DAILY [facility] Last Admin: 04/09/22 07:59 Dose: 0.4 mg Documented By: EMY Labs CBC & Chem 7: 04/09/22 05:11 04/09/22 05:11 Labs: Laboratory Results - last 24 hr 04/08/22 04/08/22 04/08/22 11:03 16:03 19:48 MCV MCH MCHC RDW Plt Count MPV Absolute Nucleated RBC Nucleated RBC % (auto) Anion Gap Estim Creat Clear Calc Estimated GFR POC Glucose 237 H 309 H 281 H Random Glucose Calcium 04/09/22 04/09/22 04/09/22 05:11 05:11 07:17 MCV 82.3 MCH 26.0 L MCHC 31.6 RDW 14.1 Plt Count 408 H MPV 10.2 Absolute Nucleated RBC 0.000 Nucleated RBC % (auto) 0.0 Anion Gap 14 Estim Creat Clear Calc 25.0 Estimated GFR 17 POC Glucose 228 H Random Glucose 241 H Calcium 7.5 L Microbiology Microbiology Results: Microbiology 04/04/22 Unknown Gram Stain - Final Foot Left Routine Culture - Final Strep agalactiae (Grp B) Methicillin Res Staph Aureus Procedures Date of Service Date of Service: 04/09/22 Progress Note: A&P Assessment and plan (1) Diabetic infection of left foot: Status: Acute (2) Toe necrosis: Status: Acute Plan Overall the arrhythmia my and edema is much improved in the left foot. Necrotic tissue excised with the scissors down to viable tissue. Will continue with silver alginate dressings on a daily basis. WBC is improving with current antibiotics. Time Spent With Patient Time: Total time spent is greater than 50% in coordination of care (as documented) at patient's floor/unit and/or counseling patient: Quality Stroke Does the patient have a stroke diagnosis?: No VTE Prior VTE?: No VTE Risk Level:: Surgical - moderate VTE Device Contraindication: N/A - Device Ordered VTE Drug Contraindication: N/A - Med Ordered
--- NOTE | 2022-04-09 10:07 | HO.PM.IMPN ---
Subjective Subjective Date of Service: 04/09/22 Interval History: Being followed for left foot gangrene patient complaining of neck and back pain, also felt nauseous and vomited x1 this morning had a regular bowel movement today, denies fever chills, denies pain in foot, no drainage from left foot dressing Review of Systems [employer] no headache no dizziness CVS no chest pain, no palpitation Castano with clear urine Review of Systems: Yes all other systems are reviewed and are negative Physical Exam Vital Signs: Vital Signs: Last Vital Signs Temp 97.2 F 04/09/22 07:34 Pulse 74 04/09/22 07:34 Resp 15 04/09/22 07:34 BP 168/75 H 04/09/22 07:34 Pulse Ox 97 04/09/22 07:34 O2 Del Method 04/09/22 07:34 O2 Flow Rate 8 04/04/22 22:25 BMI result Body Mass Index 35.2 Const: Other: General -awake alert x3, no acute distress Neck no JVD Cardiovascular - regular rate and rhythm, S1-S2 Lungs - normal respiratory effort, clear to auscultation bilaterally, no wheezing Abdomen - soft, nontender, bowel sounds audible no rebound or guarding Extremities -left leg edema, LLE in dressing / jeramie wrap Neuro - awake and alert, decreased sensation lower extremities left greater than right Psych appropriate affect Castano clear urine Objective Data Active Medications Acetaminophen (Acetaminophen 325 Mg Tablet) 650 mg PO Q6H PRN PRN Reason: Pain, Moderate (Pain Scale 4-6 Last Admin: 04/08/22 01:15 Dose: 650 mg Documented By: TANO Amlodipine Besylate (Amlodipine Besylate 10 Mg Tablet) 10 mg PO DAILY [facility]; Protocol Last Admin: 04/09/22 08:00 Dose: 10 mg Documented By: EMY Atorvastatin Calcium (Atorvastatin Calcium 10 Mg Tablet) 10 mg PO DAILY [facility] Last Admin: 04/09/22 08:00 Dose: 10 mg Documented By: EMY Dextrose (Dextrose 50 % 25 Gm/50 Ml Syringe) 25 gm IVPUSH Q15M PRN; Protocol PRN Reason: per Hypoglycemia Standing Ord. Dextrose (Dextrose 50 % 25 Gm/50 Ml Syringe) 25 gm IVPUSH Q15M PRN; Protocol PRN Reason: per Hypoglycemia Standing Ord. Enoxaparin Sodium (Enoxaparin Sodium 40 Mg/0.4 Ml Syringe) 40 mg SUBCUT Q24H [facility] Last Admin: 04/08/22 23:55 Dose: 40 mg Documented By: MARCELL Glucose (Glucose Gel 15 Gm Gel..Gram.) 15 gm PO Q15M PRN; Protocol PRN Reason: per Hypoglycemia Standing Ord. Glucose (Glucose Gel 15 Gm Gel..Gram.) 15 gm PO Q15M PRN; Protocol PRN Reason: per Hypoglycemia Standing Ord. Hydromorphone HCl (Hydromorphone Hcl 0.5 Mg/0.5 Ml Syringe) 0.5 mg IVPUSH Q3H PRN; Protocol PRN Reason: Pain, Severe (Pain Scale 7-10) Last Admin: 04/09/22 03:25 Dose: 0.5 mg Documented By: MARCELL Hydroxyzine HCl (Hydroxyzine Hcl 25 Mg Tablet) 25 mg PO TID PRN PRN Reason: itching Daptomycin 700 mg/ Sodium (Chloride) 64 mls @ 128 mls/hr IV Q48H [facility] Stop: 06/28/22 15:29 Last Infusion: 04/07/22 16:30 Dose: 128 mls/hr Documented By: ALICIA Insulin Glargine (Insulin Glargine,Hum.Rec.Anlog 100 Unit/Ml 10 Ml Vial) 15 unit SUBCUT DAILY [facility] Last Admin: 04/09/22 07:57 Dose: 15 unit Documented By: EMY Insulin Human Lispro (Insulin Lispro 100 Unit/Ml 3 Ml Vial) 0 unit SUBCUT QIDACHS [facility]; Protocol Last Admin: 04/09/22 07:57 Dose: 4 unit Documented By: EMY Methadone HCl (Methadone Hcl 20 Mg/2 Ml Oral.Conc) 65 mg PO DAILY [facility] Last Admin: 04/09/22 07:58 Dose: 65 mg Documented By: EMY Omeprazole (Omeprazole 20 Mg Capsule.Dr) 20 mg PO DAILY@0630 [facility] Last Admin: 04/09/22 05:36 Dose: 20 mg Documented By: MARCELL Ondansetron HCl (Ondansetron Hcl 4 Mg/2 Ml Vial) 4 mg IVPUSH Q8H PRN PRN Reason: Nausea and Vomiting Last Admin: 04/05/22 19:13 Dose: 4 mg Documented By: RICHARD Oxycodone HCl (Oxycodone Hcl Immed Release 5 Mg Tablet) 5 mg PO Q6H PRN PRN Reason: Pain, Moderate (Pain Scale 4-6 Last Admin: 04/07/22 19:58 Dose: 5 mg Documented By: TANO Pharmacy Consult (Consult Rx Perform Med Rec) 1 each MISCELLANE ONCE PRN PRN Reason: Consult order Pharmacy Consult (Consult Rx Vancomycin Dosing) 1 each MISCELLANE DAILY PRN PRN Reason: Consult order Sodium Chloride (0.9 % Sodium Chloride Flush 3 Ml Syringe) 3 ml IVFLUSH QSHIFT [facility] Last Admin: 04/09/22 09:20 Dose: Not Given Documented By: BEATRIZ Non-Admin Reason: IV Running Tamsulosin HCl (Tamsulosin Hcl 0.4 Mg Capsule) 0.4 mg PO DAILY [facility] Last Admin: 04/09/22 07:59 Dose: 0.4 mg Documented By: EMY Labs CBC & Chem 7: 04/09/22 05:11 04/09/22 05:11 Labs: Laboratory Results - last 24 hr 04/08/22 04/08/22 04/08/22 11:03 16:03 19:48 MCV MCH MCHC RDW Plt Count MPV Absolute Nucleated RBC Nucleated RBC % (auto) Anion Gap Estim Creat Clear Calc Estimated GFR POC Glucose 237 H 309 H 281 H Random Glucose Calcium 04/09/22 04/09/22 04/09/22 05:11 05:11 07:17 MCV 82.3 MCH 26.0 L MCHC 31.6 RDW 14.1 Plt Count 408 H MPV 10.2 Absolute Nucleated RBC 0.000 Nucleated RBC % (auto) 0.0 Anion Gap 14 Estim Creat Clear Calc 25.0 Estimated GFR 17 POC Glucose 228 H Random Glucose 241 H Calcium 7.5 L Microbiology Microbiology Results: Microbiology 04/04/22 Unknown Gram Stain - Final Foot Left Routine Culture - Final Strep agalactiae (Grp B) Methicillin Res Staph Aureus Assessment and Plan (1) PAD (peripheral artery disease): Status: Acute (2) Diabetic infection of left foot: Status: Acute (3) Toe necrosis: Status: Acute (4) Osteomyelitis: Status: Acute (5) Opioid use disorder: Status: Acute Plan 56 year old male with a PMH of insulin dependant DM who is admitted under to the general surgical services for diabetic foot infection. Medical consult requested for mgmt of DM + med mgmt. 1. Left foot Diabetic infection / gas gangrene /amputation of left 4th toe on 04/04 No foot pain likely due to diabetic neuropathy s/p amp 4th toe + debridement pod #5 status post zosyn and vancomcyin x1 day , now on IV daptomycin started on 04/07, blood cultures x2 negative, wound culture grew group B strep agalactiae and Staph aureus WBC trending down, no fevers, ID recommend 6 weeks of IV antibiotic Being followed closely by Dr. Edwards wound is healing well continue silver alginate dressing Being followed by Dr. Brown for peripheral vascular disease will need left leg endovascular peripheral angiogram with possible angioplasty, stent and or atherectomy, will wait for renal function to improve Had 1 episode of vomiting this morning will follow recommend out of bed to chair as tolerated Continue oxycodone for pain and DC IV Dilaudid 2. AMY, SCr was 0.9 on admission gradually bumped to 3.7 creatinine remains stable today, likely ATN urinary retention also playing a role, continue Castano catheter, flomax, all meds renally dose Hold JERAMIE,dc IV fluid Follow BMP 3. Acute anemia Hematocrit dropped likely dilutional and due to acute illness, no evidence of thao bleeding at this time Normal B12 folate and iron , monitor CBC, hold transfusion 4. DM Elevated blood sugars continue basal+ bolus, adjust dose of sliding scale ADA diet 5. HTN Elevated blood pressure, Jeramie on hold due to AMY , on Norvasc 10 mg, DC IV fluid follow BP and will discuss with Renal regarding BP management 6. Chronic opiate dependence continue methadone DVT prophylaxis with Lovenox Code status full code Disposition patient will need continued inpatient hospitalization due to acute renal failure, left infection requiring IV antibiotic and possible vascular intervention. Quality Stroke Does the patient have a stroke diagnosis?: No VTE Prior VTE?: No VTE Risk Level:: Surgical - moderate VTE Device Contraindication: N/A - Device Ordered VTE Drug Contraindication: N/A - Med Ordered
[2022-04-09 11:29] LABS: Glucose, Whole Blood 269 mg/dL (60-115)
--- NOTE | 2022-04-09 12:17 | HO.VASCPN ---
Subjective Subjective Date of Service: 04/09/22 Patient reports: no new complaints and feels better Interval history: Pleasant 56-year-old gentleman known with history of amputation nonhealing wound presents for follow-up with peripheral vascular disease. He was actually canceled for procedure yesterday due to worsening renal function. We have protected his right arm although he does have a E IV in the right antecubital fossa. He now presents for routine hospital follow-up. Physical Exam Vital Signs: Vital Signs: Last Vital Signs Temp 97.1 F 04/09/22 11:03 Pulse 79 04/09/22 11:03 Resp 18 04/09/22 11:03 BP 146/70 H 04/09/22 11:03 Pulse Ox 97 04/09/22 11:03 O2 Del Method 04/09/22 11:03 O2 Flow Rate 8 04/04/22 22:25 BMI result Body Mass Index 35.2 Const: General: cooperative, healthy appearing and no acute distress Orientation/consciousness: oriented to person, oriented to place and oriented to time HEENT: Head: Yes normal to inspection Neck: Carotids: no bruits Chest: Chest palpation & inspection: normal inspection of the chest Resp: Effort & Inspection: normal respiratory effort and able to speak in complete sentences Auscultation: clear to auscultation bilaterally Cardio: Rate: regular rate Heart sounds: S1 normal heart sound present and S2 normal heart sound present GI: Inspection: Yes normal to inspection Skin: Other: left leg dressing clean dry intact General skin exam: no rashes or lesions noted Neuro: General: oriented to person, oriented to place, oriented to time and CN's II-XI intact bilaterally Extrem: General: Yes normal to inspection, Yes full ROM and Yes no clubbing, cyanosis or edema Psych: Appearance: grossly normal and well kempt Speech and movement: Normal speech and movement present Affect: normal affect Progress Note: A&P Assessment and plan (1) PAD (peripheral artery disease): Status: Acute Assessment and Plan: in short patient has peripheral vascular disease. He would benefit from an endovascular intervention. Would like his renal function to come back to baseline. He was originally had a GFR of 60. We will see how he progresses through the weekend and hopefully can get him on the schedule for next week sometime. We will continue to monitor his status with you. Thank you for allowing us to assist in his care. If there are any questions or concerns please do not hesitate to contact us. Time Spent With Patient Time: Total time spent is greater than 50% in coordination of care (as documented) at patient's floor/unit and/or counseling patient: Procedures Date of Service Date of Service: 04/09/22 Quality Stroke Does the patient have a stroke diagnosis?: No VTE Prior VTE?: No VTE Risk Level:: Surgical - moderate VTE Device Contraindication: N/A - Device Ordered VTE Drug Contraindication: N/A - Med Ordered
--- NOTE | 2022-04-09 14:15 | PM.IDPN ---
Subjective Subjective Date of Service: 04/09/22 Critical Care Time (minutes): 15 Comment: he feels better Objective Data Labs CBC & Chem 7: 04/09/22 05:11 04/09/22 05:11 Labs: Laboratory Results - last 24 hr 04/08/22 04/08/22 04/09/22 16:03 19:48 05:11 WBC 15.5 H RBC 3.27 L Hgb 8.5 L Hct 26.9 L MCV 82.3 MCH 26.0 L MCHC 31.6 RDW 14.1 Plt Count 408 H MPV 10.2 Absolute Nucleated RBC 0.000 Nucleated RBC % (auto) 0.0 Sodium Potassium Chloride Carbon Dioxide Anion Gap BUN Creatinine Estim Creat Clear Calc Estimated GFR POC Glucose 309 H 281 H Random Glucose Calcium 04/09/22 04/09/22 04/09/22 05:11 07:17 11:07 WBC RBC Hgb Hct MCV MCH MCHC RDW Plt Count MPV Absolute Nucleated RBC Nucleated RBC % (auto) Sodium 137 Potassium 4.2 Chloride 102 Carbon Dioxide 25 Anion Gap 14 BUN 40 H Creatinine 3.75 H Estim Creat Clear Calc 25.0 Estimated GFR 17 POC Glucose 228 H 269 H Random Glucose 241 H Calcium 7.5 L Microbiology Microbiology Results: Microbiology 04/04/22 Unknown Foot Left Gram Stain - Final 04/04/22 Unknown Foot Left Routine Culture - Final Strep agalactiae (Grp B) Methicillin Res Staph Aureus 04/04/22 18:15 Blood - Venous Blood Culture - Preliminary No growth after 48 hours. 04/04/22 17:53 Blood - Venous Blood Culture - Preliminary No growth after 48 hours. Physical Exam Vital Signs: Vital Signs: Last Vital Signs Temp 97.1 F 04/09/22 11:03 Pulse 79 04/09/22 11:03 Resp 18 04/09/22 11:03 BP 146/70 H 04/09/22 11:03 Pulse Ox 97 04/09/22 11:03 O2 Del Method 04/09/22 11:03 O2 Flow Rate 8 04/04/22 22:25 BMI result Body Mass Index 35.2 Const: General: cooperative Resp: Effort & Inspection: normal respiratory effort Cardio: Rate: regular rate Rhythm: regular rhythm GI: Inspection: Yes normal to inspection Extrem: Other: healing left foot Assessment and Plan Assessment and plan (1) Diabetic infection of left foot: Problem details: He has MRSA and Group B strep Status: Acute Assessment and Plan: 6 weeks IV Daptomycin done on May 12 Would see in office [phone]> Time Spent With Patient Time: Total time spent is greater than 50% in coordination of care (as documented) at patient's floor/unit and/or counseling patient:
--- NOTE | 2022-04-09 15:42 | PM.PNNEP ---
Subjective Subjective Date of Service: 04/09/22 Interval history: Events noted. Feels better. Serum creatinine plateaued. Physical Exam Vital Signs: Vital Signs: Last Vital Signs Temp 97.9 F 04/09/22 15:19 Pulse 84 04/09/22 15:19 Resp 16 04/09/22 15:19 BP 165/73 H 04/09/22 15:19 Pulse Ox 97 04/09/22 15:19 O2 Del Method 04/09/22 15:19 O2 Flow Rate 8 04/04/22 22:25 BMI result Body Mass Index 35.2 Const: Orientation/consciousness: patient oriented x3 Eyes: EOM: EOMs intact bilaterally Neck: Neck: Yes supple Resp: Auscultation: diminished lung sounds Cardio: Rate: regular rate GI: Palpation (GI): Soft to palpation Neuro: General: patient oriented x3 Objective Data Labs CBC & Chem 7: 04/09/22 05:11 04/09/22 05:11 Labs: Laboratory Results - last 24 hr 04/08/22 04/08/22 04/09/22 16:03 19:48 05:11 WBC 15.5 H RBC 3.27 L Hgb 8.5 L Hct 26.9 L MCV 82.3 MCH 26.0 L MCHC 31.6 RDW 14.1 Plt Count 408 H MPV 10.2 Absolute Nucleated RBC 0.000 Nucleated RBC % (auto) 0.0 Sodium Potassium Chloride Carbon Dioxide Anion Gap BUN Creatinine Estim Creat Clear Calc Estimated GFR POC Glucose 309 H 281 H Random Glucose Calcium 04/09/22 04/09/22 04/09/22 05:11 07:17 11:07 WBC RBC Hgb Hct MCV MCH MCHC RDW Plt Count MPV Absolute Nucleated RBC Nucleated RBC % (auto) Sodium 137 Potassium 4.2 Chloride 102 Carbon Dioxide 25 Anion Gap 14 BUN 40 H Creatinine 3.75 H Estim Creat Clear Calc 25.0 Estimated GFR 17 POC Glucose 228 H 269 H Random Glucose 241 H Calcium 7.5 L Microbiology Microbiology Results: Microbiology 04/04/22 Unknown Foot Left Gram Stain - Final 04/04/22 Unknown Foot Left Routine Culture - Final Strep agalactiae (Grp B) Methicillin Res Staph Aureus 04/04/22 18:15 Blood - Venous Blood Culture - Preliminary No growth after 48 hours. 04/04/22 17:53 Blood - Venous Blood Culture - Preliminary No growth after 48 hours. Procedures Date of Service Date of Service: 04/09/22 Assessment & Plan Assessment and plan (1) Acute kidney injury: Status: Acute Assessment and Plan: Acute Kidney Injury likely due to tubular injury (multifactorial- septic ATN & had been receiving Vanco) No significant RBC in the urine to suspect GN Had been on Vanco/Zosyn- already changed Was on ACEI at home which is on hold Had a Castano catheter with good urine output No indication for renal replacement Labs AM. Shall closely follow up Time Spent With Patient Time: Total time spent is greater than 50% in coordination of care (as documented) at patient's floor/unit and/or counseling patient: Progress Note: Quality Stroke Does the patient have a stroke diagnosis?: No
[2022-04-09 15:50] LABS: Glucose, Whole Blood 282 mg/dL (60-115)
[2022-04-09] MEDS: DAPTOmycin 700 MG in 0.9 % Sodium Chloride 50 ML 128 MG IV (15:57)
[2022-04-09 20:41] LABS: Glucose, Whole Blood 365 mg/dL (60-115)
[2022-04-09] MEDS: oxyCODONE HCl Immed Release 5 MG TABLET PO (21:42)
[2022-04-09] MEDS: Enoxaparin Sodium 40 MG/0.4 ML SYRINGE SUBCUT (22:34)
[2022-04-10] MEDS: 0.9 % Sodium Chloride Flush 3 ML SYRINGE IVFLUSH ×4 (03:38→22:49)
[2022-04-10 04:00] VITALS: BP 160/62; PULSE 76; RESP 18; TEMP 36.8; O2SAT 97
[2022-04-10] MEDS: Omeprazole 20 MG CAPSULE.DR PO (05:27)
[2022-04-10 06:16] LABS: Hematocrit 27.1 % (42.0-52.0); Hemoglobin 8.5 g/dl (14.0-18.0); Mean Corpuscular HGB Conc 31.4 g/dl (31.0-36.0); Mean Corpuscular Hemoglobin 25.8 pg (27.0-33.0); Mean Corpuscular Volume 82.4 fL (80.0-98.0); Mean Platelet Volume 10.1 fL (9.4-12.4); Platelet Count 405 X10*3/uL (160-400); Red Blood Count 3.29 X10*6/uL (4.60-5.80); Red Cell Distribution Width 14.1 % (11.0-16.0); White Blood Count 15.5 X10*3/uL (4.8-10.8)
[2022-04-10 06:34] LABS: Anion Gap 16 (12-20); Blood Urea Nitrogen 43 mg/dL (9-16); Calcium 7.6 mg/dL (8.4-10.2); Carbon Dioxide 25 mmol/L (22-29); Chloride 99 mmol/L (96-108); Creatinine Clr Calc Pharmacy 24.7; Estimated Glomerular Filt Rate 17; Potassium 4.8 mmol/L (3.3-5.1); Sodium 135 mmol/L (135-145)
[2022-04-10 07:46] LABS: Glucose Random 440 mg/dL (60-115)
[2022-04-10 08:00] VITALS: BP 176/82; PULSE 83; RESP 18; TEMP 36.6; O2SAT 97
[2022-04-10 08:30] LABS: Glucose, Whole Blood 360 mg/dL (60-115)
[2022-04-10] MEDS: NIFEdipine ER 30 MG TAB.ER.24 60 MG PO (08:42)
[2022-04-10] MEDS: Tamsulosin HCL 0.4 MG CAPSULE PO (08:42)
[2022-04-10] MEDS: Atorvastatin Calcium 10 MG TABLET PO (08:42)
[2022-04-10] MEDS: methADONE HCl 20 MG/2 ML ORAL.CONC 65 MG PO (08:42)
[2022-04-10] MEDS: Insulin Lispro 100 UNIT/ML 3 ML VIAL SUBCUT ×4 (08:43→19:58)
[2022-04-10] MEDS: Insulin Glargine,Hum.rec.anlog 100 UNIT/ML 10 ML VIAL 25 UNIT SUBCUT (08:43)
--- NOTE | 2022-04-10 08:49 | P.PNGS_ITS ---
Subjective Subjective Date of Service: 04/10/22 Interval history: no new complaints denies pain on left foot says he wished he can get discharged soon Physical Exam Vital Signs: Vital Signs: Last Vital Signs Temp 97.9 F 04/10/22 08:00 Pulse 83 04/10/22 08:00 Resp 18 04/10/22 08:00 BP 176/82 H 04/10/22 08:00 Pulse Ox 97 04/10/22 08:00 O2 Del Method 04/10/22 08:00 O2 Flow Rate 8 04/04/22 22:25 BMI result Body Mass Index 35.2 Const: General: comfortable and no acute distress Resp: Effort & Inspection: normal respiratory effort Cardio: Rate: regular rate Extrem: Other: amputation site on 4th toe left open, small patchy superficial necotic rim, dry, no pus Objective Data Active Medications Acetaminophen (Acetaminophen 325 Mg Tablet) 650 mg PO Q6H PRN PRN Reason: Pain, Moderate (Pain Scale 4-6 Last Admin: 04/08/22 01:15 Dose: 650 mg Documented By: TANO Atorvastatin Calcium (Atorvastatin Calcium 10 Mg Tablet) 10 mg PO DAILY [facility] Last Admin: 04/09/22 08:00 Dose: 10 mg Documented By: DYLLANORRDangelo Dextrose (Dextrose 50 % 25 Gm/50 Ml Syringe) 25 gm IVPUSH Q15M PRN; Protocol PRN Reason: per Hypoglycemia Standing Ord. Dextrose (Dextrose 50 % 25 Gm/50 Ml Syringe) 25 gm IVPUSH Q15M PRN; Protocol PRN Reason: per Hypoglycemia Standing Ord. Enoxaparin Sodium (Enoxaparin Sodium 40 Mg/0.4 Ml Syringe) 40 mg SUBCUT Q24H [facility] Last Admin: 04/09/22 22:34 Dose: 40 mg Documented By: BRAYDEN Glucose (Glucose Gel 15 Gm Gel..Gram.) 15 gm PO Q15M PRN; Protocol PRN Reason: per Hypoglycemia Standing Ord. Glucose (Glucose Gel 15 Gm Gel..Gram.) 15 gm PO Q15M PRN; Protocol PRN Reason: per Hypoglycemia Standing Ord. Hydroxyzine HCl (Hydroxyzine Hcl 25 Mg Tablet) 25 mg PO TID PRN PRN Reason: itching Daptomycin 700 mg/ Sodium (Chloride) 64 mls @ 128 mls/hr IV Q48H [facility] Stop: 06/28/22 15:29 Last Infusion: 04/09/22 16:34 Dose: 0 mls/hr Documented By: EMY Insulin Glargine (Insulin Glargine,Hum.Rec.Anlog 100 Unit/Ml 10 Ml Vial) 25 unit SUBCUT DAILY [facility] Insulin Human Lispro (Insulin Lispro 100 Unit/Ml 3 Ml Vial) 0 unit SUBCUT QIDACHS [facility]; Protocol Last Admin: 04/09/22 20:56 Dose: 10 unit Documented By: BRAYDEN Methadone HCl (Methadone Hcl 20 Mg/2 Ml Oral.Conc) 65 mg PO DAILY [facility] Last Admin: 04/09/22 07:58 Dose: 65 mg Documented By: EMY Nifedipine (Nifedipine Er 30 Mg Tab.Er.24) 60 mg PO DAILY [facility]; Protocol Omeprazole (Omeprazole 20 Mg Capsule.Dr) 20 mg PO DAILY@0630 [facility] Last Admin: 04/10/22 05:27 Dose: 20 mg Documented By: BRAYDEN Ondansetron HCl (Ondansetron Hcl 4 Mg/2 Ml Vial) 4 mg IVPUSH Q8H PRN PRN Reason: Nausea and Vomiting Last Admin: 04/05/22 19:13 Dose: 4 mg Documented By: RICHARD Oxycodone HCl (Oxycodone Hcl Immed Release 5 Mg Tablet) 5 mg PO Q6H PRN PRN Reason: Pain, Moderate (Pain Scale 4-6 Last Admin: 04/09/22 21:42 Dose: 5 mg Documented By: BRAYDEN Pharmacy Consult (Consult Rx Perform Med Rec) 1 each MISCELLANE ONCE PRN PRN Reason: Consult order Pharmacy Consult (Consult Rx Vancomycin Dosing) 1 each MISCELLANE DAILY PRN PRN Reason: Consult order Sodium Chloride (0.9 % Sodium Chloride Flush 3 Ml Syringe) 3 ml IVFLUSH QSHIFT [facility] Last Admin: 04/10/22 03:38 Dose: 3 ml Documented By: BRAYDEN Tamsulosin HCl (Tamsulosin Hcl 0.4 Mg Capsule) 0.4 mg PO DAILY [facility] Last Admin: 04/09/22 07:59 Dose: 0.4 mg Documented By: EMY Labs CBC & Chem 7: 04/10/22 05:23 04/10/22 05:23 Labs: Laboratory Results - last 24 hr 04/09/22 04/09/22 04/09/22 11:07 15:17 20:37 MCV MCH MCHC RDW Plt Count MPV Absolute Nucleated RBC Nucleated RBC % (auto) Anion Gap Estim Creat Clear Calc Estimated GFR POC Glucose 269 H 282 H 365 H* Random Glucose Calcium 04/10/22 04/10/22 04/10/22 05:23 05:23 08:23 MCV 82.4 MCH 25.8 L MCHC 31.4 RDW 14.1 Plt Count 405 H MPV 10.1 Absolute Nucleated RBC 0.000 Nucleated RBC % (auto) 0.0 Anion Gap 16 Estim Creat Clear Calc 24.7 Estimated GFR 17 POC Glucose 360 H* Random Glucose 440 H* Calcium 7.6 L Microbiology Microbiology Results: Microbiology 04/04/22 18:15 Blood Culture - Final Blood - Venous No growth after 5 days. 04/04/22 17:53 Blood Culture - Final Blood - Venous No growth after 5 days. Procedures Date of Service Date of Service: 04/10/22 Progress Note: A&P Assessment and plan (1) Diabetic infection of left foot: Status: Acute Assessment and Plan: s/p toe amp open wound on amputation site dressings changed - silver alginate placed,wrapped with fluffy gauze and Catarina roll continue same wound care Time Spent With Patient Time: Total time spent is greater than 50% in coordination of care (as documented) at patient's floor/unit and/or counseling patient: Quality Stroke Does the patient have a stroke diagnosis?: No VTE Prior VTE?: No VTE Risk Level:: Surgical - moderate VTE Device Contraindication: N/A - Device Ordered VTE Drug Contraindication: N/A - Med Ordered
--- NOTE | 2022-04-10 10:24 | P.PNIM_ITS ---
Subjective Subjective Date of Service: 04/10/22 Review of Systems Review of Systems: Yes all other systems are reviewed and are negative Physical Exam Vital Signs: Vital Signs: Last Vital Signs Temp 97.9 F 04/10/22 08:00 Pulse 83 04/10/22 08:00 Resp 18 04/10/22 08:00 BP 176/82 H 04/10/22 08:00 Pulse Ox 97 04/10/22 08:00 O2 Del Method 04/10/22 08:00 O2 Flow Rate 8 04/04/22 22:25 BMI result Body Mass Index 35.2 Const: Other: General -awake alert x3, no acute distress Neck no JVD Cardiovascular - regular rate and rhythm, Lungs - normal respiratory effort, clear to auscultation bilaterally, no wheezing Abdomen - soft, nontender, bowel sounds audible no rebound or guarding Extremities -left leg edema, LLE in dressing / jeramie wrap Neuro - awake and alert, decreased sensation lower extremities Psych appropriate affect Castano clear urine Objective Data Active Medications Acetaminophen (Acetaminophen 325 Mg Tablet) 650 mg PO Q6H PRN PRN Reason: Pain, Moderate (Pain Scale 4-6 Last Admin: 04/08/22 01:15 Dose: 650 mg Documented By: TANO Atorvastatin Calcium (Atorvastatin Calcium 10 Mg Tablet) 10 mg PO DAILY [facility] Last Admin: 04/10/22 08:42 Dose: 10 mg Documented By: ARNULFO Dextrose (Dextrose 50 % 25 Gm/50 Ml Syringe) 25 gm IVPUSH Q15M PRN; Protocol PRN Reason: per Hypoglycemia Standing Ord. Dextrose (Dextrose 50 % 25 Gm/50 Ml Syringe) 25 gm IVPUSH Q15M PRN; Protocol PRN Reason: per Hypoglycemia Standing Ord. Enoxaparin Sodium (Enoxaparin Sodium 40 Mg/0.4 Ml Syringe) 40 mg SUBCUT Q24H [facility] Last Admin: 04/09/22 22:34 Dose: 40 mg Documented By: BRAYDEN Glucose (Glucose Gel 15 Gm Gel..Gram.) 15 gm PO Q15M PRN; Protocol PRN Reason: per Hypoglycemia Standing Ord. Glucose (Glucose Gel 15 Gm Gel..Gram.) 15 gm PO Q15M PRN; Protocol PRN Reason: per Hypoglycemia Standing Ord. Hydroxyzine HCl (Hydroxyzine Hcl 25 Mg Tablet) 25 mg PO TID PRN PRN Reason: itching Daptomycin 700 mg/ Sodium (Chloride) 64 mls @ 128 mls/hr IV Q48H [facility] Stop: 06/28/22 15:29 Last Infusion: 04/09/22 16:34 Dose: 0 mls/hr Documented By: EMY Insulin Glargine (Insulin Glargine,Hum.Rec.Anlog 100 Unit/Ml 10 Ml Vial) 25 unit SUBCUT DAILY [facility] Last Admin: 04/10/22 08:43 Dose: 25 unit Documented By: ARNULFO Insulin Human Lispro (Insulin Lispro 100 Unit/Ml 3 Ml Vial) 0 unit SUBCUT QIDACHS [facility]; Protocol Last Admin: 04/10/22 08:43 Dose: 12 unit Documented By: ARNULFO Methadone HCl (Methadone Hcl 20 Mg/2 Ml Oral.Conc) 65 mg PO DAILY [facility] Last Admin: 04/10/22 08:42 Dose: 65 mg Documented By: ARNULFO Nifedipine (Nifedipine Er 30 Mg Tab.Er.24) 60 mg PO DAILY [facility]; Protocol Last Admin: 04/10/22 08:42 Dose: 60 mg Documented By: ARNULFO Omeprazole (Omeprazole 20 Mg Capsule.Dr) 20 mg PO DAILY@0630 [facility] Last Admin: 04/10/22 05:27 Dose: 20 mg Documented By: BRAYDEN Ondansetron HCl (Ondansetron Hcl 4 Mg/2 Ml Vial) 4 mg IVPUSH Q8H PRN PRN Reason: Nausea and Vomiting Last Admin: 04/05/22 19:13 Dose: 4 mg Documented By: RICHARD Oxycodone HCl (Oxycodone Hcl Immed Release 5 Mg Tablet) 5 mg PO Q6H PRN PRN Reason: Pain, Moderate (Pain Scale 4-6 Last Admin: 04/09/22 21:42 Dose: 5 mg Documented By: BRAYDEN Pharmacy Consult (Consult Rx Perform Med Rec) 1 each MISCELLANE ONCE PRN PRN Reason: Consult order Pharmacy Consult (Consult Rx Vancomycin Dosing) 1 each MISCELLANE DAILY PRN PRN Reason: Consult order Sodium Chloride (0.9 % Sodium Chloride Flush 3 Ml Syringe) 3 ml IVFLUSH QSHIFT [facility] Last Admin: 04/10/22 08:43 Dose: 3 ml Documented By: ARNULFO Tamsulosin HCl (Tamsulosin Hcl 0.4 Mg Capsule) 0.4 mg PO DAILY [facility] Last Admin: 04/10/22 08:42 Dose: 0.4 mg Documented By: ARNULFO Labs CBC & Chem 7: 04/10/22 05:23 04/10/22 05:23 Labs: Laboratory Results - last 24 hr 04/09/22 04/09/22 04/09/22 11:07 15:17 20:37 MCV MCH MCHC RDW Plt Count MPV Absolute Nucleated RBC Nucleated RBC % (auto) Anion Gap Estim Creat Clear Calc Estimated GFR POC Glucose 269 H 282 H 365 H* Random Glucose Calcium 04/10/22 04/10/22 04/10/22 05:23 05:23 08:23 MCV 82.4 MCH 25.8 L MCHC 31.4 RDW 14.1 Plt Count 405 H MPV 10.1 Absolute Nucleated RBC 0.000 Nucleated RBC % (auto) 0.0 Anion Gap 16 Estim Creat Clear Calc 24.7 Estimated GFR 17 POC Glucose 360 H* Random Glucose 440 H* Calcium 7.6 L Microbiology Microbiology Results: Microbiology 04/04/22 18:15 Blood Culture - Final Blood - Venous No growth after 5 days. 04/04/22 17:53 Blood Culture - Final Blood - Venous No growth after 5 days. Assessment and Plan (1) PAD (peripheral artery disease): Status: Acute (2) Diabetic infection of left foot: Status: Acute (3) Toe necrosis: Status: Acute (4) Osteomyelitis: Status: Acute (5) Opioid use disorder: Status: Acute Plan 56 year old male with a PMH of insulin dependant DM who is admitted under to the general surgical services for diabetic foot infection. Medical consult requested for mgmt of DM + med mgmt. 1. 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 Brown for peripheral vascular disease will need left leg endovascular peripheral angiogram with possible angioplasty, stent and or atherectomy, waiting for renal function to improve Continue oxycodone for pain PICC line not place due to acute renal failure, will re-attempt if renal function improves prior to discharge 2. AMY, SCr was 0.9 on admission gradually bumped to 3.8 creatinine stable times couple days , likely ATN urinary retention also playing a role, continue Castano catheter, flomax, all meds renally dose s/p IV fluid , Jeramie discontinued Follow BMP 3. Acute anemia Hematocrit dropped likely dilutional and due to acute illness, no evidence of thao bleeding at this time Normal B12 folate and iron , monitor CBC, hold transfusion 4. DM Elevated blood sugars continue basal+ bolus, adjust dose of sliding scale and increase dose of Lantus to 25 ADA diet 5. HTN Elevated blood pressure, Jeramie on hold due to AMY , DC Norvasc [address] on nifedipine 60 mg, titrate nifedipine if blood pressure remains elevated 6. Chronic opiate dependence continue methadone DVT prophylaxis with Lovenox Code status full code Disposition patient will need continued inpatient hospitalization due to acute renal failure, left foot infection requiring IV antibiotic and possible vascular intervention. Quality Stroke Does the patient have a stroke diagnosis?: No VTE Prior VTE?: No VTE Risk Level:: Surgical - moderate VTE Device Contraindication: N/A - Device Ordered VTE Drug Contraindication: N/A - Med Ordered
[2022-04-10 11:20] VITALS: BP 177/79; PULSE 75; RESP 20; TEMP 36.8; O2SAT 97
[2022-04-10 11:29] LABS: Glucose, Whole Blood 355 mg/dL (60-115)
--- NOTE | 2022-04-10 11:49 | HE.PHANOTE ---
Patient CrCl is 24.7 today. Recommended to decrease lovenox dose to [address] Pace agreed and dose was adjusted. Corinne Ramírez, PharmD
[2022-04-10 15:34] VITALS: BP 159/72; PULSE 79; RESP 20; TEMP 36.2; O2SAT 96
--- NOTE | 2022-04-10 15:40 | PM.PNNEP ---
Subjective Subjective Date of Service: 04/10/22 Interval history: Events noted. Feels better. Serum creatinine plateaued. Physical Exam Vital Signs: Vital Signs: Last Vital Signs Temp 97.1 F 04/10/22 15:34 Pulse 79 04/10/22 15:34 Resp 20 04/10/22 15:34 BP 159/72 H 04/10/22 15:34 Pulse Ox 96 04/10/22 15:34 O2 Del Method 04/10/22 15:34 O2 Flow Rate 8 04/04/22 22:25 BMI result Body Mass Index 35.2 Const: General: no acute distress Orientation/consciousness: patient oriented x3 Eyes: EOM: EOMs intact bilaterally Neck: Neck: Yes supple Resp: Auscultation: diminished lung sounds Cardio: Rate: regular rate GI: Palpation (GI): Soft to palpation Neuro: General: patient oriented x3 Objective Data Labs CBC & Chem 7: 04/10/22 05:23 04/10/22 05:23 Labs: Laboratory Results - last 24 hr 04/09/22 04/09/22 04/10/22 15:17 20:37 05:23 WBC 15.5 H RBC 3.29 L Hgb 8.5 L Hct 27.1 L MCV 82.4 MCH 25.8 L MCHC 31.4 RDW 14.1 Plt Count 405 H MPV 10.1 Absolute Nucleated RBC 0.000 Nucleated RBC % (auto) 0.0 Sodium Potassium Chloride Carbon Dioxide Anion Gap BUN Creatinine Estim Creat Clear Calc Estimated GFR POC Glucose 282 H 365 H* Random Glucose Calcium 04/10/22 04/10/22 04/10/22 05:23 08:23 11:22 WBC RBC Hgb Hct MCV MCH MCHC RDW Plt Count MPV Absolute Nucleated RBC Nucleated RBC % (auto) Sodium 135 Potassium 4.8 Chloride 99 Carbon Dioxide 25 Anion Gap 16 BUN 43 H Creatinine 3.80 H Estim Creat Clear Calc 24.7 Estimated GFR 17 POC Glucose 360 H* 355 H* Random Glucose 440 H* Calcium 7.6 L Microbiology Microbiology Results: Microbiology 04/04/22 18:15 Blood - Venous Blood Culture - Final No growth after 5 days. 04/04/22 17:53 Blood - Venous Blood Culture - Final No growth after 5 days. 04/04/22 Unknown Foot Left Gram Stain - Final 04/04/22 Unknown Foot Left Routine Culture - Final Strep agalactiae (Grp B) Methicillin Res Staph Aureus Procedures Date of Service Date of Service: 04/10/22 Assessment & Plan Assessment and plan (1) Acute kidney injury: Status: Acute Assessment and Plan: Acute Kidney Injury likely due to tubular injury (multifactorial- septic ATN & had been receiving Vanco) No significant RBC in the urine to suspect GN Was on ACEI at home which is on hold Had a Castano catheter with good urine output No indication for renal replacement Labs AM. Shall closely follow up Time Spent With Patient Time: Total time spent is greater than 50% in coordination of care (as documented) at patient's floor/unit and/or counseling patient: Progress Note: Quality Stroke Does the patient have a stroke diagnosis?: No
[2022-04-10 15:42] LABS: Glucose, Whole Blood 252 mg/dL (60-115)
[2022-04-10 19:35] VITALS: BP 126/63; PULSE 82; RESP 20; TEMP 36.2; O2SAT 93
[2022-04-10 19:48] LABS: Glucose, Whole Blood 364 mg/dL (60-115)
[2022-04-10] MEDS: Enoxaparin Sodium 30 MG/0.3 ML SYRINGE SUBCUT (22:49)
[2022-04-10] MEDS: oxyCODONE HCl Immed Release 5 MG TABLET PO (23:24)
[2022-04-11] VITALS: BP 127/64; PULSE 83; RESP 17; TEMP 37.2; O2SAT 94
[2022-04-11 03:58] VITALS: BP 128/60; PULSE 85; RESP 17; TEMP 36.4; O2SAT 94
[2022-04-11] MEDS: Omeprazole 20 MG CAPSULE.DR PO (05:38)
[2022-04-11 07:02] LABS: Hemoglobin 8.6 g/dl (14.0-18.0); Mean Corpuscular HGB Conc 31.9 g/dl (31.0-36.0); Mean Corpuscular Volume 81.6 fL (80.0-98.0); Mean Platelet Volume 10.1 fL (9.4-12.4); Platelet Count 452 X10*3/uL (160-400); Red Blood Count 3.31 X10*6/uL (4.60-5.80); Red Cell Distribution Width 14.1 % (11.0-16.0); White Blood Count 16.6 X10*3/uL (4.8-10.8)
[2022-04-11 07:29] LABS: Anion Gap 18 (12-20); Blood Urea Nitrogen 49 mg/dL (9-16); Calcium 7.8 mg/dL (8.4-10.2); Carbon Dioxide 23 mmol/L (22-29); Chloride 98 mmol/L (96-108); Creatinine Clr Calc Pharmacy 24.5; Estimated Glomerular Filt Rate 16; Glucose Random 335 mg/dL (60-115); Potassium 4.9 mmol/L (3.3-5.1); Sodium 134 mmol/L (135-145)
[2022-04-11 07:43] VITALS: BP 145/70; PULSE 84; RESP 18; TEMP 36.6; O2SAT 95
[2022-04-11 07:56] LABS: Glucose, Whole Blood 290 mg/dL (60-115)
[2022-04-11] MEDS: methADONE HCl 20 MG/2 ML ORAL.CONC 65 MG PO (08:05)
[2022-04-11] MEDS: Insulin Glargine,Hum.rec.anlog 100 UNIT/ML 10 ML VIAL 25 UNIT SUBCUT (08:09)
[2022-04-11] MEDS: Tamsulosin HCL 0.4 MG CAPSULE PO (08:09)
[2022-04-11] MEDS: Insulin Lispro 100 UNIT/ML 3 ML VIAL SUBCUT ×4 (08:09→21:34)
[2022-04-11] MEDS: NIFEdipine ER 30 MG TAB.ER.24 60 MG PO (08:10)
[2022-04-11] MEDS: Atorvastatin Calcium 10 MG TABLET PO (08:10)
[2022-04-11] MEDS: 0.9 % Sodium Chloride Flush 3 ML SYRINGE IVFLUSH ×3 (08:10→21:35)
[2022-04-11 08:15] LABS: Glucose, Whole Blood 308 mg/dL (60-115)
[2022-04-11] MEDS: Acetaminophen 325 MG TABLET 650 MG PO ×2 (09:47→21:46)
[2022-04-11 10:55] VITALS: BP 134/61; PULSE 86; RESP 18; TEMP 36.3; O2SAT 97
--- NOTE | 2022-04-11 11:06 | P.PNIM_ITS ---
Subjective Subjective Date of Service: 04/11/22 Interval History: no acute issues overnight. Pain control adequate Review of Systems denies chest pain Denies shortness of breath Denies nausea vomiting diarrhea Denies fever chills Physical Exam Vital Signs: Vital Signs: Last Vital Signs Temp 97.4 F 04/11/22 10:55 Pulse 86 04/11/22 10:55 Resp 18 04/11/22 10:55 BP 134/61 04/11/22 10:55 Pulse Ox 97 04/11/22 10:55 O2 Del Method 04/11/22 10:55 O2 Flow Rate 8 04/04/22 22:25 BMI result Body Mass Index 35.2 Const: Other: and no acute distress Resp: Other: clear to auscultation bilaterally no rales rhonchi or wheezes Cardio: Other: no S4; positive S1-S2; no S3 murmurs rubs or gallops GI: Other: soft nontender nondistended with normoactive bowel sounds Extrem: Other: mild left lower extremities edema; wrapped in [place]amie wrap Objective Data Active Medications Acetaminophen (Acetaminophen 325 Mg Tablet) 650 mg PO Q6H PRN PRN Reason: Pain, Moderate (Pain Scale 4-6 Last Admin: 04/11/22 09:47 Dose: 650 mg Documented By: RAGHU Atorvastatin Calcium (Atorvastatin Calcium 10 Mg Tablet) 10 mg PO DAILY [facility] Last Admin: 04/11/22 08:10 Dose: 10 mg Documented By: NARAYAN Dextrose (Dextrose 50 % 25 Gm/50 Ml Syringe) 25 gm IVPUSH Q15M PRN; Protocol PRN Reason: per Hypoglycemia Standing Ord. Dextrose (Dextrose 50 % 25 Gm/50 Ml Syringe) 25 gm IVPUSH Q15M PRN; Protocol PRN Reason: per Hypoglycemia Standing Ord. Enoxaparin Sodium (Enoxaparin Sodium 30 Mg/0.3 Ml Syringe) 30 mg SUBCUT Q24H [facility] Last Admin: 04/10/22 22:49 Dose: 30 mg Documented By: EDIL Glucose (Glucose Gel 15 Gm Gel..Gram.) 15 gm PO Q15M PRN; Protocol PRN Reason: per Hypoglycemia Standing Ord. Glucose (Glucose Gel 15 Gm Gel..Gram.) 15 gm PO Q15M PRN; Protocol PRN Reason: per Hypoglycemia Standing Ord. Hydroxyzine HCl (Hydroxyzine Hcl 25 Mg Tablet) 25 mg PO TID PRN PRN Reason: itching Daptomycin 700 mg/ Sodium (Chloride) 64 mls @ 128 mls/hr IV Q48H [facility] Stop: 06/28/22 15:29 Last Infusion: 04/09/22 16:34 Dose: 0 mls/hr Documented By: DYLLANORRZ Insulin Glargine (Insulin Glargine,Hum.Rec.Anlog 100 Unit/Ml 10 Ml Vial) 25 unit SUBCUT DAILY [facility] Last Admin: 04/11/22 08:09 Dose: 25 unit Documented By: NARAYAN Insulin Human Lispro (Insulin Lispro 100 Unit/Ml 3 Ml Vial) 0 unit SUBCUT QIDACHS [facility]; Protocol Last Admin: 04/11/22 08:09 Dose: 10 unit Documented By: NARAYAN Methadone HCl (Methadone Hcl 20 Mg/2 Ml Oral.Conc) 65 mg PO DAILY [facility] Last Admin: 04/11/22 08:05 Dose: 65 mg Documented By: NARAYAN Nifedipine (Nifedipine Er 30 Mg Tab.Er.24) 60 mg PO DAILY [facility]; Protocol Last Admin: 04/11/22 08:10 Dose: 60 mg Documented By: NARAYAN Omeprazole (Omeprazole 20 Mg Capsule.Dr) 20 mg PO DAILY@0630 [facility] Last Admin: 04/11/22 05:38 Dose: 20 mg Documented By: SHABBIRRISYoana Ondansetron HCl (Ondansetron Hcl 4 Mg/2 Ml Vial) 4 mg IVPUSH Q8H PRN PRN Reason: Nausea and Vomiting Last Admin: 04/05/22 19:13 Dose: 4 mg Documented By: RICHARD Pharmacy Consult (Consult Rx Perform Med Rec) 1 each MISCELLANE ONCE PRN PRN Reason: Consult order Pharmacy Consult (Consult Rx Vancomycin Dosing) 1 each MISCELLANE DAILY PRN PRN Reason: Consult order Sodium Chloride (0.9 % Sodium Chloride Flush 3 Ml Syringe) 3 ml IVFLUSH QSHIFT [facility] Last Admin: 04/11/22 08:10 Dose: 3 ml Documented By: NARAYAN Tamsulosin HCl (Tamsulosin Hcl 0.4 Mg Capsule) 0.4 mg PO DAILY [facility] Last Admin: 04/11/22 08:09 Dose: 0.4 mg Documented By: NARAYAN Labs CBC & Chem 7: 04/11/22 05:32 04/11/22 05:32 Labs: Laboratory Results - last 24 hr 04/10/22 04/10/22 04/10/22 11:22 15:37 19:38 MCV MCH MCHC RDW Plt Count MPV Absolute Nucleated RBC Nucleated RBC % (auto) Anion Gap Estim Creat Clear Calc Estimated GFR POC Glucose 355 H* 252 H 364 H* Random Glucose Calcium 04/11/22 04/11/22 04/11/22 05:32 05:32 07:41 MCV 81.6 MCH 26.0 L MCHC 31.9 RDW 14.1 Plt Count 452 H MPV 10.1 Absolute Nucleated RBC 0.000 Nucleated RBC % (auto) 0.0 Anion Gap 18 Estim Creat Clear Calc 24.5 Estimated GFR 16 POC Glucose 290 H Random Glucose 335 H Calcium 7.8 L 04/11/22 07:50 MCV MCH MCHC RDW Plt Count MPV Absolute Nucleated RBC Nucleated RBC % (auto) Anion Gap Estim Creat Clear Calc Estimated GFR POC Glucose 308 H Random Glucose Calcium Assessment and Plan (1) Diabetic infection of left foot: Status: Acute (2) Acute kidney injury: Status: Acute (3) Osteomyelitis: Status: Acute (4) Diabetes type 2, controlled: Status: Acute Plan 56 year old male with a PMH of insulin dependant DM who is admitted under to the general surgical services for diabetic foot infection. Medical consult requested for mgmt of DM + med mgmt. 1. 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 ID recommends 6 weeks total -PICC when cleared by renal -vascular imaging as per Dr. Meyer 2. AMY, - creatinine plateaued -follow renals/divalents -discuss PICC with renal 3. Acute anemia - counts stabilized - continue to follow 4. DM II - will add 10 units Lantus at HS - lispro correctional scale - adjust therapies as indicated 5. HTN - acceptable control on nifedipine - adjust as indicated 6. Chronic opiate dependence -continue methadone DVT prophylaxis with Lovenox Code status full code Disposition patient will need continued inpatient hospitalization due to acute renal failure, left foot infection requiring IV antibiotic and possible vascular intervention. Quality Stroke Does the patient have a stroke diagnosis?: No VTE Prior VTE?: No VTE Risk Level:: Surgical - moderate VTE Device Contraindication: N/A - Device Ordered VTE Drug Contraindication: N/A - Med Ordered
[2022-04-11 11:16] LABS: Glucose, Whole Blood 351 mg/dL (60-115)
[2022-04-11 11:16] LABS: Glucose, Whole Blood 374 mg/dL (60-115)
--- NOTE | 2022-04-11 13:20 | PM.PNGS ---
Subjective Subjective Date of Service: 04/11/22 Interval history: no new complaints says he feels well Physical Exam Vital Signs: Vital Signs: Last Vital Signs Temp 97.4 F 04/11/22 10:55 Pulse 86 04/11/22 10:55 Resp 18 04/11/22 10:55 BP 134/61 04/11/22 10:55 Pulse Ox 97 04/11/22 10:55 O2 Del Method 04/11/22 10:55 O2 Flow Rate 8 04/04/22 22:25 BMI result Body Mass Index 35.2 Const: General: comfortable and no acute distress Resp: Effort & Inspection: normal respiratory effort Cardio: Rhythm: regular rhythm Extrem: Other: open wound on 4th toe amp site, clean, some fibrinous exudates, dry rim of nonviable skin on some areas, no pus Objective Data Active Medications Acetaminophen (Acetaminophen 325 Mg Tablet) 650 mg PO Q6H PRN PRN Reason: Pain, Moderate (Pain Scale 4-6 Last Admin: 04/11/22 09:47 Dose: 650 mg Documented By: RAGHU Atorvastatin Calcium (Atorvastatin Calcium 10 Mg Tablet) 10 mg PO DAILY [facility] Last Admin: 04/11/22 08:10 Dose: 10 mg Documented By: GRETCHENENOTEJA Dextrose (Dextrose 50 % 25 Gm/50 Ml Syringe) 25 gm IVPUSH Q15M PRN; Protocol PRN Reason: per Hypoglycemia Standing Ord. Dextrose (Dextrose 50 % 25 Gm/50 Ml Syringe) 25 gm IVPUSH Q15M PRN; Protocol PRN Reason: per Hypoglycemia Standing Ord. Enoxaparin Sodium (Enoxaparin Sodium 30 Mg/0.3 Ml Syringe) 30 mg SUBCUT Q24H [facility] Last Admin: 04/10/22 22:49 Dose: 30 mg Documented By: SHABBIRRISYoana Glucose (Glucose Gel 15 Gm Gel..Gram.) 15 gm PO Q15M PRN; Protocol PRN Reason: per Hypoglycemia Standing Ord. Glucose (Glucose Gel 15 Gm Gel..Gram.) 15 gm PO Q15M PRN; Protocol PRN Reason: per Hypoglycemia Standing Ord. Hydroxyzine HCl (Hydroxyzine Hcl 25 Mg Tablet) 25 mg PO TID PRN PRN Reason: itching Daptomycin 700 mg/ Sodium (Chloride) 64 mls @ 128 mls/hr IV Q48H [facility] Stop: 06/28/22 15:29 Last Infusion: 04/09/22 16:34 Dose: 0 mls/hr Documented By: EMY Insulin Glargine (Insulin Glargine,Hum.Rec.Anlog 100 Unit/Ml 10 Ml Vial) 25 unit SUBCUT DAILY [facility] Last Admin: 04/11/22 08:09 Dose: 25 unit Documented By: NARAYAN Insulin Human Lispro (Insulin Lispro 100 Unit/Ml 3 Ml Vial) 0 unit SUBCUT QIDACHS [facility]; Protocol Last Admin: 04/11/22 12:27 Dose: 17 unit Documented By: RAGHU Methadone HCl (Methadone Hcl 20 Mg/2 Ml Oral.Conc) 65 mg PO DAILY [facility] Last Admin: 04/11/22 08:05 Dose: 65 mg Documented By: NARAYAN Nifedipine (Nifedipine Er 30 Mg Tab.Er.24) 60 mg PO DAILY [facility]; Protocol Last Admin: 04/11/22 08:10 Dose: 60 mg Documented By: NARAYAN Omeprazole (Omeprazole 20 Mg Capsule.Dr) 20 mg PO DAILY@0630 [facility] Last Admin: 04/11/22 05:38 Dose: 20 mg Documented By: SHABBIRRISYoana Ondansetron HCl (Ondansetron Hcl 4 Mg/2 Ml Vial) 4 mg IVPUSH Q8H PRN PRN Reason: Nausea and Vomiting Last Admin: 04/05/22 19:13 Dose: 4 mg Documented By: RICHARD Pharmacy Consult (Consult Rx Perform Med Rec) 1 each MISCELLANE ONCE PRN PRN Reason: Consult order Pharmacy Consult (Consult Rx Vancomycin Dosing) 1 each MISCELLANE DAILY PRN PRN Reason: Consult order Sodium Chloride (0.9 % Sodium Chloride Flush 3 Ml Syringe) 3 ml IVFLUSH QSHIFT [facility] Last Admin: 04/11/22 08:10 Dose: 3 ml Documented By: NARAYAN Tamsulosin HCl (Tamsulosin Hcl 0.4 Mg Capsule) 0.4 mg PO DAILY [facility] Last Admin: 04/11/22 08:09 Dose: 0.4 mg Documented By: NARAYAN Labs CBC & Chem 7: 04/11/22 05:32 04/11/22 05:32 Labs: Laboratory Results - last 24 hr 04/10/22 04/10/22 04/11/22 15:37 19:38 05:32 MCV 81.6 MCH 26.0 L MCHC 31.9 RDW 14.1 Plt Count 452 H MPV 10.1 Absolute Nucleated RBC 0.000 Nucleated RBC % (auto) 0.0 Anion Gap Estim Creat Clear Calc Estimated GFR POC Glucose 252 H 364 H* Random Glucose Calcium 04/11/22 04/11/22 04/11/22 05:32 07:41 07:50 MCV MCH MCHC RDW Plt Count MPV Absolute Nucleated RBC Nucleated RBC % (auto) Anion Gap 18 Estim Creat Clear Calc 24.5 Estimated GFR 16 POC Glucose 290 H 308 H Random Glucose 335 H Calcium 7.8 L 04/11/22 04/11/22 10:53 11:02 MCV MCH MCHC RDW Plt Count MPV Absolute Nucleated RBC Nucleated RBC % (auto) Anion Gap Estim Creat Clear Calc Estimated GFR POC Glucose 351 H* 374 H* Random Glucose Calcium Procedures Date of Service Date of Service: 04/11/22 Progress Note: A&P Assessment and plan (1) Osteomyelitis: Status: Acute Assessment and Plan: s/p toe amp, 4th toe, left dressings changed alginate dressings applied foot wrapped in Catarina roll continue wound care Time Spent With Patient Time: Total time spent is greater than 50% in coordination of care (as documented) at patient's floor/unit and/or counseling patient: Quality Stroke Does the patient have a stroke diagnosis?: No VTE Prior VTE?: No VTE Risk Level:: Surgical - moderate VTE Device Contraindication: N/A - Device Ordered VTE Drug Contraindication: N/A - Med Ordered
[2022-04-11] MEDS: DAPTOmycin 700 MG in 0.9 % Sodium Chloride 50 ML 128 MG IV (14:47)
--- NOTE | 2022-04-11 14:48 | PM.PNNEP ---
Subjective Subjective Date of Service: 04/11/22 Interval history: no acute issues overnight. serum creatinine plateauing Physical Exam Vital Signs: Vital Signs: Last Vital Signs Temp 97.4 F 04/11/22 10:55 Pulse 86 04/11/22 10:55 Resp 18 04/11/22 10:55 BP 134/61 04/11/22 10:55 Pulse Ox 97 04/11/22 10:55 O2 Del Method 04/11/22 10:55 O2 Flow Rate 8 04/04/22 22:25 BMI result Body Mass Index 35.2 Const: General: comfortable Orientation/consciousness: patient oriented x3 Eyes: EOM: EOMs intact bilaterally Neck: Neck: Yes supple Resp: Auscultation: diminished lung sounds Cardio: Rate: regular rate GI: Palpation (GI): Soft to palpation Neuro: General: patient oriented x3 and moves all extremities Objective Data Labs CBC & Chem 7: 04/11/22 05:32 04/11/22 05:32 Labs: Laboratory Results - last 24 hr 04/10/22 04/10/22 04/11/22 15:37 19:38 05:32 WBC 16.6 H RBC 3.31 L Hgb 8.6 L Hct 27.0 L MCV 81.6 MCH 26.0 L MCHC 31.9 RDW 14.1 Plt Count 452 H MPV 10.1 Absolute Nucleated RBC 0.000 Nucleated RBC % (auto) 0.0 Sodium Potassium Chloride Carbon Dioxide Anion Gap BUN Creatinine Estim Creat Clear Calc Estimated GFR POC Glucose 252 H 364 H* Random Glucose Calcium 04/11/22 04/11/22 04/11/22 05:32 07:41 07:50 WBC RBC Hgb Hct MCV MCH MCHC RDW Plt Count MPV Absolute Nucleated RBC Nucleated RBC % (auto) Sodium 134 L Potassium 4.9 Chloride 98 Carbon Dioxide 23 Anion Gap 18 BUN 49 H Creatinine 3.83 H Estim Creat Clear Calc 24.5 Estimated GFR 16 POC Glucose 290 H 308 H Random Glucose 335 H Calcium 7.8 L 04/11/22 04/11/22 10:53 11:02 WBC RBC Hgb Hct MCV MCH MCHC RDW Plt Count MPV Absolute Nucleated RBC Nucleated RBC % (auto) Sodium Potassium Chloride Carbon Dioxide Anion Gap BUN Creatinine Estim Creat Clear Calc Estimated GFR POC Glucose 351 H* 374 H* Random Glucose Calcium Microbiology Microbiology Results: Microbiology 04/04/22 18:15 Blood - Venous Blood Culture - Final No growth after 5 days. 04/04/22 17:53 Blood - Venous Blood Culture - Final No growth after 5 days. 04/04/22 Unknown Foot Left Gram Stain - Final 04/04/22 Unknown Foot Left Routine Culture - Final Strep agalactiae (Grp B) Methicillin Res Staph Aureus Procedures Date of Service Date of Service: 04/11/22 Assessment & Plan Assessment and plan (1) Acute kidney injury: Status: Acute Assessment and Plan: Acute Kidney Injury likely due to tubular injury (multifactorial- septic ATN & had been receiving Vanco) No significant RBC in the urine to suspect GN Was on ACEI at home which is on hold Had a Castano catheter with good urine output No indication for renal replacement Can have a PICC line from a renal perspective Labs AM. Shall closely follow up Time Spent With Patient Time: Total time spent is greater than 50% in coordination of care (as documented) at patient's floor/unit and/or counseling patient: Progress Note: Quality Stroke Does the patient have a stroke diagnosis?: No
[2022-04-11 15:11] VITALS: BP 134/63; PULSE 86; RESP 19; TEMP 36.3; O2SAT 96
[2022-04-11 15:36] LABS: Glucose, Whole Blood 307 mg/dL (60-115)
[2022-04-11 19:16] VITALS: BP 143/67; PULSE 86; RESP 17; TEMP 36.5; O2SAT 97
[2022-04-11 19:45] LABS: Glucose, Whole Blood 349 mg/dL (60-115)
[2022-04-11] MEDS: Enoxaparin Sodium 30 MG/0.3 ML SYRINGE SUBCUT (21:34)
[2022-04-12] VITALS (7 sets, daily range): BP systolic 131–154; BP diastolic 63–86; PULSE 69–99; RESP 18–20; TEMP 36.2–36.8; O2SAT 95–103
[2022-04-12] MEDS: Omeprazole 20 MG CAPSULE.DR PO (06:13)
[2022-04-12] MEDS: Acetaminophen 325 MG TABLET 650 MG PO ×3 (06:13→21:05)
[2022-04-12 06:22] LABS: Basophils Percent Auto 0.3 % (0-2); Eosinophils Absolute Auto 0.3 X10*3/uL (0.0-0.4); Eosinophils Percent Auto 1.8 % (0-4); Hemoglobin 8.5 g/dl (14.0-18.0); Imm Gran Abs Auto 0.11 X10*3/uL (0.00-0.03); Imm Gran Pct Auto 0.8 % (0.0-0.4); Lymphocytes Absolute Auto 1.6 X10*3/uL (1.2-4.9); Lymphocytes Percent Auto 11.3 % (20-40); MANUAL DIFF FLAG NO; Mean Corpuscular HGB Conc 31.5 g/dl (31.0-36.0); Mean Corpuscular Hemoglobin 25.7 pg (27.0-33.0); Mean Corpuscular Volume 81.6 fL (80.0-98.0); Mean Platelet Volume 9.7 fL (9.4-12.4); Monocytes Absolute Auto 0.8 X10*3/uL (0.1-1.2); Monocytes Percent Auto 5.8 % (2-11); Neutrophils Absolute Auto 11.5 x10*3/uL (2.0-8.3); Platelet Count 407 X10*3/uL (160-400); Red Blood Count 3.31 X10*6/uL (4.60-5.80); Red Cell Distribution Width 14.2 % (11.0-16.0); White Blood Count 14.3 X10*3/uL (4.8-10.8)
[2022-04-12 07:10] LABS: Alanine Aminotransferase 11 U/L (0-40); Albumin Level 2.6 g/dL (3.5-5.0); Alkaline Phosphatase 113 U/L (39-117); Anion Gap 16 (12-20); Aspartate Amino Transferase 11 U/L (5-37); Bilirubin Total < 0.2 mg/dL (0.0-1.0); Blood Urea Nitrogen 55 mg/dL (9-16); Calcium 7.8 mg/dL (8.4-10.2); Carbon Dioxide 24 mmol/L (22-29); Chloride 99 mmol/L (96-108); Creatinine Clr Calc Pharmacy 24.8; Estimated Glomerular Filt Rate 17; Glucose Fasting 237 mg/dL (60-99); Potassium 4.4 mmol/L (3.3-5.1); Sodium 135 mmol/L (135-145); Total Protein 6.3 g/dL (6.5-8.0)
[2022-04-12 07:50] LABS: Glucose, Whole Blood 216 mg/dL (60-115)
[2022-04-12] MEDS: Tamsulosin HCL 0.4 MG CAPSULE PO (08:01)
[2022-04-12] MEDS: methADONE HCl 20 MG/2 ML ORAL.CONC 65 MG PO (08:01)
[2022-04-12] MEDS: NIFEdipine ER 30 MG TAB.ER.24 60 MG PO (08:01)
[2022-04-12] MEDS: Atorvastatin Calcium 10 MG TABLET PO (08:01)
[2022-04-12] MEDS: Insulin Lispro 100 UNIT/ML 3 ML VIAL SUBCUT ×4 (08:02→21:06)
[2022-04-12] MEDS: 0.9 % Sodium Chloride Flush 3 ML SYRINGE IVFLUSH ×3 (08:02→21:05)
[2022-04-12] MEDS: Insulin Glargine,Hum.rec.anlog 100 UNIT/ML 10 ML VIAL 25 UNIT SUBCUT (08:05)
--- NOTE | 2022-04-12 08:18 | HO.VASCPN ---
Subjective Subjective Date of Service: 04/12/22 Patient reports: no new complaints and feels better Interval history: patient seen and examined. No significant events over the past weekend. Reports he is doing fairly well. Leg seems to be doing better. White count trending down. Now for follow-up. Physical Exam Vital Signs: Vital Signs: Last Vital Signs Temp 97.5 F 04/12/22 07:33 Pulse 92 04/12/22 07:33 Resp 18 04/12/22 07:33 BP 142/73 H 04/12/22 07:33 Pulse Ox 97 04/12/22 07:33 O2 Del Method 04/12/22 07:33 O2 Flow Rate 8 04/04/22 22:25 BMI result Body Mass Index 35.2 Const: General: cooperative, healthy appearing and no acute distress Orientation/consciousness: oriented to person, oriented to place and oriented to time HEENT: Head: Yes normal to inspection Neck: Carotids: no bruits Chest: Chest palpation & inspection: normal inspection of the chest Resp: Effort & Inspection: normal respiratory effort and able to speak in complete sentences Auscultation: clear to auscultation bilaterally Cardio: Rate: regular rate Heart sounds: S1 normal heart sound present and S2 normal heart sound present GI: Inspection: Yes normal to inspection Skin: General skin exam: no rashes or lesions noted Wounds: wounds noted ( Dressing clean dry intact) Neuro: General: oriented to person, oriented to place, oriented to time and CN's II-XI intact bilaterally Extrem: General: Yes normal to inspection, Yes full ROM and Yes no clubbing, cyanosis or edema Psych: Appearance: grossly normal and well kempt Speech and movement: Normal speech and movement present Affect: normal affect Progress Note: A&P Assessment and plan (1) PAD (peripheral artery disease): Status: Acute Assessment and Plan: patient continues to have an element of peripheral vascular disease. At some point he will require endovascular intervention. Unfortunately his renal function has not improved throughout the weekend. Appears to have reached a plateau at a GFR of 17. Would continue with management per Nephrology. Most likely will have to schedule him as an outpatient for endovascular intervention once his kidney function returns to a normal GFR of 60 which she presented to the hospital with. we will be happy to follow him as an outpatient. Thank you for allowing us to assist in his care. If there are any questions or concerns please do not hesitate to contact us. Time Spent With Patient Time: Total time spent is greater than 50% in coordination of care (as documented) at patient's floor/unit and/or counseling patient: Procedures Date of Service Date of Service: 04/12/22 Quality Stroke Does the patient have a stroke diagnosis?: No VTE Prior VTE?: No VTE Risk Level:: Surgical - moderate VTE Device Contraindication: N/A - Device Ordered VTE Drug Contraindication: N/A - Med Ordered
--- NOTE | 2022-04-12 09:22 | P.PNGS_ITS ---
Subjective Subjective Date of Service: 04/12/22 Interval history: no new complaints denies pain Physical Exam Vital Signs: Vital Signs: Last Vital Signs Temp 97.5 F 04/12/22 07:33 Pulse 92 04/12/22 07:33 Resp 18 04/12/22 07:33 BP 142/73 H 04/12/22 07:33 Pulse Ox 97 04/12/22 07:33 O2 Del Method 04/12/22 07:33 O2 Flow Rate 8 04/04/22 22:25 BMI result Body Mass Index 35.2 Const: General: comfortable and no acute distress Resp: Effort & Inspection: normal respiratory effort Cardio: Rate: regular rate GI: Palpation (GI): Soft to palpation Extrem: Other: open wound amputation site on left 4th toe, with fibrinous debris, rim of nonviable skin Objective Data Active Medications Acetaminophen (Acetaminophen 325 Mg Tablet) 650 mg PO Q6H PRN PRN Reason: Pain, Moderate (Pain Scale 4-6 Last Admin: 04/12/22 06:13 Dose: 650 mg Documented By: CANELO Atorvastatin Calcium (Atorvastatin Calcium 10 Mg Tablet) 10 mg PO DAILY [facility] Last Admin: 04/12/22 08:01 Dose: 10 mg Documented By: SACHIN Dextrose (Dextrose 50 % 25 Gm/50 Ml Syringe) 25 gm IVPUSH Q15M PRN; Protocol PRN Reason: per Hypoglycemia Standing Ord. Dextrose (Dextrose 50 % 25 Gm/50 Ml Syringe) 25 gm IVPUSH Q15M PRN; Protocol PRN Reason: per Hypoglycemia Standing Ord. Enoxaparin Sodium (Enoxaparin Sodium 30 Mg/0.3 Ml Syringe) 30 mg SUBCUT Q24H [facility] Last Admin: 04/11/22 21:34 Dose: 30 mg Documented By: CANELO Glucose (Glucose Gel 15 Gm Gel..Gram.) 15 gm PO Q15M PRN; Protocol PRN Reason: per Hypoglycemia Standing Ord. Glucose (Glucose Gel 15 Gm Gel..Gram.) 15 gm PO Q15M PRN; Protocol PRN Reason: per Hypoglycemia Standing Ord. Hydroxyzine HCl (Hydroxyzine Hcl 25 Mg Tablet) 25 mg PO TID PRN PRN Reason: itching Daptomycin 700 mg/ Sodium (Chloride) 64 mls @ 128 mls/hr IV Q48H [facility] Stop: 06/28/22 15:29 Last Infusion: 04/11/22 15:31 Dose: 0 mls/hr Documented By: GRETCHENENOTEJA Insulin Glargine (Insulin Glargine,Hum.Rec.Anlog 100 Unit/Ml 10 Ml Vial) 25 unit SUBCUT DAILY [facility] Last Admin: 04/12/22 08:05 Dose: 25 unit Documented By: SACHIN Insulin Human Lispro (Insulin Lispro 100 Unit/Ml 3 Ml Vial) 0 unit SUBCUT QIDACHS [facility]; Protocol Last Admin: 04/12/22 08:02 Dose: 6 unit Documented By: SACHIN Methadone HCl (Methadone Hcl 20 Mg/2 Ml Oral.Conc) 65 mg PO DAILY [facility] Last Admin: 04/12/22 08:01 Dose: 65 mg Documented By: SACHIN Nifedipine (Nifedipine Er 30 Mg Tab.Er.24) 60 mg PO DAILY [facility]; Protocol Last Admin: 04/12/22 08:01 Dose: 60 mg Documented By: SACHIN Omeprazole (Omeprazole 20 Mg Capsule.Dr) 20 mg PO DAILY@0630 [facility] Last Admin: 04/12/22 06:13 Dose: 20 mg Documented By: CANELO Ondansetron HCl (Ondansetron Hcl 4 Mg/2 Ml Vial) 4 mg IVPUSH Q8H PRN PRN Reason: Nausea and Vomiting Last Admin: 04/05/22 19:13 Dose: 4 mg Documented By: RICHARD Pharmacy Consult (Consult Rx Perform Med Rec) 1 each MISCELLANE ONCE PRN PRN Reason: Consult order Pharmacy Consult (Consult Rx Vancomycin Dosing) 1 each MISCELLANE DAILY PRN PRN Reason: Consult order Sodium Chloride (0.9 % Sodium Chloride Flush 3 Ml Syringe) 3 ml IVFLUSH QSHIFT [facility] Last Admin: 04/12/22 08:02 Dose: 3 ml Documented By: SACHIN Tamsulosin HCl (Tamsulosin Hcl 0.4 Mg Capsule) 0.4 mg PO DAILY [facility] Last Admin: 04/12/22 08:01 Dose: 0.4 mg Documented By: SACHIN Labs CBC & Chem 7: 04/12/22 06:12 04/12/22 06:12 Labs: Laboratory Results - last 24 hr 09/11/2704/11/22 04/11/22 10:53 11:02 15:14 MCV MCH MCHC RDW Plt Count MPV Immature Gran % (Auto) Neut % (Auto) Lymph % (Auto) [place] % (Auto) Eos % (Auto) Baso % (Auto) Lymph # (Auto) [place] # (Auto) Eos # (Auto) Baso # (Auto) Abs Immat Gran (auto) Absolute Neuts (auto) Absolute Nucleated RBC Nucleated RBC % (auto) Anion Gap Estim Creat Clear Calc Estimated GFR POC Glucose 351 H* 374 H* 307 H Fasting Glucose Calcium Total Bilirubin AST ALT Alkaline Phosphatase Total Protein Albumin 04/11/22 04/12/22 04/12/22 19:20 06:12 06:12 MCV 81.6 MCH 25.7 L MCHC 31.5 RDW 14.2 Plt Count 407 H MPV 9.7 Immature Gran % (Auto) 0.8 H Neut % (Auto) 80.0 H Lymph % (Auto) 11.3 L [place] % (Auto) 5.8 Eos % (Auto) 1.8 Baso % (Auto) 0.3 Lymph # (Auto) 1.6 [place] # (Auto) 0.8 Eos # (Auto) 0.3 Baso # (Auto) 0.0 Abs Immat Gran (auto) 0.11 H Absolute Neuts (auto) 11.5 H Absolute Nucleated RBC 0.000 Nucleated RBC % (auto) 0.0 Anion Gap 16 Estim Creat Clear Calc 24.8 Estimated GFR 17 POC Glucose 349 H Fasting Glucose 237 H Calcium 7.8 L Total Bilirubin < 0.2 AST 11 D ALT 11 Alkaline Phosphatase 113 D Total Protein 6.3 L Albumin 2.6 L 04/12/22 07:37 MCV MCH MCHC RDW Plt Count MPV Immature Gran % (Auto) Neut % (Auto) Lymph % (Auto) [place] % (Auto) Eos % (Auto) Baso % (Auto) Lymph # (Auto) [place] # (Auto) Eos # (Auto) Baso # (Auto) Abs Immat Gran (auto) Absolute Neuts (auto) Absolute Nucleated RBC Nucleated RBC % (auto) Anion Gap Estim Creat Clear Calc Estimated GFR POC Glucose 216 H Fasting Glucose Calcium Total Bilirubin AST ALT Alkaline Phosphatase Total Protein Albumin Procedures Date of Service Date of Service: 04/12/22 Progress Note: A&P Assessment and plan (1) Osteomyelitis: Status: Acute Assessment and Plan: s/p toe amp with open wound I repeat sharp excisional debridement at bedside using fine scissors to remove nonviable tissue I applied alginate dressings wrapped foot in Catarina roll pt with arterial disease unlikely to heal without reconstituting good flow to foot seen by [facility] Surgery- endovascular intervention planned concern for renal insufficiency Time Spent With Patient Time: Total time spent is greater than 50% in coordination of care (as documented) at patient's floor/unit and/or counseling patient: Quality Stroke Does the patient have a stroke diagnosis?: No VTE Prior VTE?: No VTE Risk Level:: Surgical - moderate VTE Device Contraindication: N/A - Device Ordered VTE Drug Contraindication: N/A - Med Ordered
--- NOTE | 2022-04-12 11:20 | HO.PM.IMPN ---
Subjective Subjective Date of Service: 04/12/22 Interval History: no acute issues overnight Review of Systems denies chest pain Denies shortness of breath Denies nausea vomiting diarrhea Denies fever chills Physical Exam Vital Signs: Vital Signs: Last Vital Signs Temp 97.1 F 04/12/22 11:10 Pulse 88 04/12/22 11:10 Resp 18 04/12/22 11:10 BP 154/68 H 04/12/22 11:10 Pulse Ox 98 04/12/22 11:10 O2 Del Method 04/12/22 11:10 O2 Flow Rate 8 04/04/22 22:25 BMI result Body Mass Index 35.2 Const: Other: and no acute distress Resp: Other: clear to auscultation bilaterally no rales rhonchi or wheezes Cardio: Other: no S4; positive S1-S2; no S3 murmurs rubs or gallops GI: Other: soft nontender nondistended with normoactive bowel sounds Extrem: Other: mild left lower extremities edema; wrapped in Jeramie wrap Objective Data Active Medications Acetaminophen (Acetaminophen 325 Mg Tablet) 650 mg PO Q6H PRN PRN Reason: Pain, Moderate (Pain Scale 4-6 Last Admin: 04/12/22 06:13 Dose: 650 mg Documented By: CANELO Atorvastatin Calcium (Atorvastatin Calcium 10 Mg Tablet) 10 mg PO DAILY [facility] Last Admin: 04/12/22 08:01 Dose: 10 mg Documented By: SACHIN Dextrose (Dextrose 50 % 25 Gm/50 Ml Syringe) 25 gm IVPUSH Q15M PRN; Protocol PRN Reason: per Hypoglycemia Standing Ord. Dextrose (Dextrose 50 % 25 Gm/50 Ml Syringe) 25 gm IVPUSH Q15M PRN; Protocol PRN Reason: per Hypoglycemia Standing Ord. Enoxaparin Sodium (Enoxaparin Sodium 30 Mg/0.3 Ml Syringe) 30 mg SUBCUT Q24H [facility] Last Admin: 04/11/22 21:34 Dose: 30 mg Documented By: CANELO Glucose (Glucose Gel 15 Gm Gel..Gram.) 15 gm PO Q15M PRN; Protocol PRN Reason: per Hypoglycemia Standing Ord. Glucose (Glucose Gel 15 Gm Gel..Gram.) 15 gm PO Q15M PRN; Protocol PRN Reason: per Hypoglycemia Standing Ord. Hydroxyzine HCl (Hydroxyzine Hcl 25 Mg Tablet) 25 mg PO TID PRN PRN Reason: itching Daptomycin 700 mg/ Sodium (Chloride) 64 mls @ 128 mls/hr IV Q48H [facility] Stop: 06/28/22 15:29 Last Infusion: 04/11/22 15:31 Dose: 0 mls/hr Documented By: NARAYAN Insulin Glargine (Insulin Glargine,Hum.Rec.Anlog 100 Unit/Ml 10 Ml Vial) 25 unit SUBCUT DAILY [facility] Last Admin: 04/12/22 08:05 Dose: 25 unit Documented By: SACHIN Insulin Human Lispro (Insulin Lispro 100 Unit/Ml 3 Ml Vial) 0 unit SUBCUT QIDACHS [facility]; Protocol Last Admin: 04/12/22 08:02 Dose: 6 unit Documented By: SACHIN Methadone HCl (Methadone Hcl 20 Mg/2 Ml Oral.Conc) 65 mg PO DAILY [facility] Last Admin: 04/12/22 08:01 Dose: 65 mg Documented By: SACHIN Nifedipine (Nifedipine Er 30 Mg Tab.Er.24) 60 mg PO DAILY [facility]; Protocol Last Admin: 04/12/22 08:01 Dose: 60 mg Documented By: SACHIN Omeprazole (Omeprazole 20 Mg Capsule.Dr) 20 mg PO DAILY@0630 [facility] Last Admin: 04/12/22 06:13 Dose: 20 mg Documented By: CANELO Ondansetron HCl (Ondansetron Hcl 4 Mg/2 Ml Vial) 4 mg IVPUSH Q8H PRN PRN Reason: Nausea and Vomiting Last Admin: 04/05/22 19:13 Dose: 4 mg Documented By: RICHARD Pharmacy Consult (Consult Rx Perform Med Rec) 1 each MISCELLANE ONCE PRN PRN Reason: Consult order Pharmacy Consult (Consult Rx Vancomycin Dosing) 1 each MISCELLANE DAILY PRN PRN Reason: Consult order Sodium Chloride (0.9 % Sodium Chloride Flush 3 Ml Syringe) 3 ml IVFLUSH QSHIFT [facility] Last Admin: 04/12/22 08:02 Dose: 3 ml Documented By: SACHIN Tamsulosin HCl (Tamsulosin Hcl 0.4 Mg Capsule) 0.4 mg PO DAILY [facility] Last Admin: 04/12/22 08:01 Dose: 0.4 mg Documented By: SACHIN Labs CBC & Chem 7: 04/12/22 06:12 04/12/22 06:12 Labs: Laboratory Results - last 24 hr 04/11/22 04/11/22 04/12/22 15:14 19:20 06:12 MCV 81.6 MCH 25.7 L MCHC 31.5 RDW 14.2 Plt Count 407 H MPV 9.7 Immature Gran % (Auto) 0.8 H Neut % (Auto) 80.0 H Lymph % (Auto) 11.3 L [place] % (Auto) 5.8 Eos % (Auto) 1.8 Baso % (Auto) 0.3 Lymph # (Auto) 1.6 [place] # (Auto) 0.8 Eos # (Auto) 0.3 Baso # (Auto) 0.0 Abs Immat Gran (auto) 0.11 H Absolute Neuts (auto) 11.5 H Absolute Nucleated RBC 0.000 Nucleated RBC % (auto) 0.0 Anion Gap Estim Creat Clear Calc Estimated GFR POC Glucose 307 H 349 H Fasting Glucose Calcium Total Bilirubin AST ALT Alkaline Phosphatase Total Protein Albumin 04/12/22 04/12/22 06:12 07:37 MCV MCH MCHC RDW Plt Count MPV Immature Gran % (Auto) Neut % (Auto) Lymph % (Auto) [place] % (Auto) Eos % (Auto) Baso % (Auto) Lymph # (Auto) [place] # (Auto) Eos # (Auto) Baso # (Auto) Abs Immat Gran (auto) Absolute Neuts (auto) Absolute Nucleated RBC Nucleated RBC % (auto) Anion Gap 16 Estim Creat Clear Calc 24.8 Estimated GFR 17 POC Glucose 216 H Fasting Glucose 237 H Calcium 7.8 L Total Bilirubin < 0.2 AST 11 D ALT 11 Alkaline Phosphatase 113 D Total Protein 6.3 L Albumin 2.6 L Assessment and Plan (1) Diabetic infection of left foot: Status: Acute (2) Acute kidney injury: Status: Acute (3) Osteomyelitis: Status: Acute (4) Diabetes type 2, controlled: Status: Acute Plan 56 year old male with a PMH of insulin dependant DM who is admitted under to the general surgical services for diabetic foot infection. Medical consult requested for mgmt of DM + med mgmt. 1. 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 ID recommends 6 weeks total -PICC when cleared by renal -vascular imaging as per Dr. Meyer 2. AMY, - creatinine plateaued -follow renals/divalents - PICC line tomorrowl 3. Acute anemia - counts stabilized - continue to follow 4. DM II - will add 10 units Lantus at HS - lispro correctional scale - adjust therapies as indicated 5. HTN - acceptable control on nifedipine - adjust as indicated 6. Chronic opiate dependence -continue methadone DVT prophylaxis with Lovenox Code status full code Disposition patient will need continued inpatient hospitalization due to acute renal failure, left foot infection requiring IV antibiotic and possible vascular intervention. Quality Stroke Does the patient have a stroke diagnosis?: No VTE Prior VTE?: No VTE Risk Level:: Surgical - moderate VTE Device Contraindication: N/A - Device Ordered VTE Drug Contraindication: N/A - Med Ordered
[2022-04-12 11:33] LABS: Glucose, Whole Blood 261 mg/dL (60-115)
[2022-04-12 15:40] LABS: Glucose, Whole Blood 269 mg/dL (60-115)
--- NOTE | 2022-04-12 18:14 | P.PNNP_ITS ---
Subjective Subjective Date of Service: 04/12/22 Interval history: no acute issues overnight. All recent data reviewed Physical Exam Vital Signs: Vital Signs: Last Vital Signs Temp 97.1 F 04/12/22 14:54 Pulse 69 04/12/22 14:54 Resp 20 04/12/22 14:54 BP 147/73 H 04/12/22 14:54 Pulse Ox 103 H 04/12/22 14:54 O2 Del Method 04/12/22 14:54 O2 Flow Rate 8 04/04/22 22:25 BMI result Body Mass Index 35.2 Const: General: no acute distress Orientation/consciousness: patient oriented x3 Eyes: EOM: EOMs intact bilaterally Neck: Neck: Yes supple Resp: Auscultation: diminished lung sounds Cardio: Rate: regular rate GI: Palpation (GI): Soft to palpation Neuro: General: patient oriented x3 Objective Data Labs CBC & Chem 7: 04/12/22 06:12 04/12/22 06:12 Labs: Laboratory Results - last 24 hr 04/11/22 04/12/22 04/12/22 19:20 06:12 06:12 WBC 14.3 H RBC 3.31 L Hgb 8.5 L Hct 27.0 L MCV 81.6 MCH 25.7 L MCHC 31.5 RDW 14.2 Plt Count 407 H MPV 9.7 Immature Gran % (Auto) 0.8 H Neut % (Auto) 80.0 H Lymph % (Auto) 11.3 L [place] % (Auto) 5.8 Eos % (Auto) 1.8 Baso % (Auto) 0.3 Lymph # (Auto) 1.6 [place] # (Auto) 0.8 Eos # (Auto) 0.3 Baso # (Auto) 0.0 Abs Immat Gran (auto) 0.11 H Absolute Neuts (auto) 11.5 H Absolute Nucleated RBC 0.000 Nucleated RBC % (auto) 0.0 Sodium 135 Potassium 4.4 Chloride 99 Carbon Dioxide 24 Anion Gap 16 BUN 55 H Creatinine 3.78 H Estim Creat Clear Calc 24.8 Estimated GFR 17 POC Glucose 349 H Fasting Glucose 237 H Calcium 7.8 L Total Bilirubin < 0.2 AST 11 D ALT 11 Alkaline Phosphatase 113 D Total Protein 6.3 L Albumin 2.6 L 04/12/22 04/12/22 04/12/22 07:37 11:13 15:12 WBC RBC Hgb Hct MCV MCH MCHC RDW Plt Count MPV Immature Gran % (Auto) Neut % (Auto) Lymph % (Auto) [place] % (Auto) Eos % (Auto) Baso % (Auto) Lymph # (Auto) [place] # (Auto) Eos # (Auto) Baso # (Auto) Abs Immat Gran (auto) Absolute Neuts (auto) Absolute Nucleated RBC Nucleated RBC % (auto) Sodium Potassium Chloride Carbon Dioxide Anion Gap BUN Creatinine Estim Creat Clear Calc Estimated GFR POC Glucose 216 H 261 H 269 H Fasting Glucose Calcium Total Bilirubin AST ALT Alkaline Phosphatase Total Protein Albumin Microbiology Microbiology Results: Microbiology 04/04/22 18:15 Blood - Venous Blood Culture - Final No growth after 5 days. 04/04/22 17:53 Blood - Venous Blood Culture - Final No growth after 5 days. 04/04/22 Unknown Foot Left Gram Stain - Final 04/04/22 Unknown Foot Left Routine Culture - Final Strep agalactiae (Grp B) Methicillin Res Staph Aureus Procedures Date of Service Date of Service: 04/12/22 Assessment & Plan Assessment and plan (1) Acute kidney injury: Status: Acute Assessment and Plan: Acute Kidney Injury likely due to tubular injury (multifactorial- septic ATN & had been receiving Vanco) No significant RBC in the urine to suspect GN Was on ACEI at home which is on hold Had a Castano catheter with good urine output No indication for renal replacement Can have a PICC line from a renal perspective Labs AM. Shall closely follow up Time Spent With Patient Time: Total time spent is greater than 50% in coordination of care (as documented) at patient's floor/unit and/or counseling patient: Progress Note: Quality Stroke Does the patient have a stroke diagnosis?: No
[2022-04-12 19:26] LABS: Glucose, Whole Blood 341 mg/dL (60-115)
[2022-04-12] MEDS: Enoxaparin Sodium 30 MG/0.3 ML SYRINGE SUBCUT (21:06)
[2022-04-13 03:20] VITALS: BP 130/61; PULSE 84; RESP 18; TEMP 36.5; O2SAT 96
[2022-04-13] MEDS: Omeprazole 20 MG CAPSULE.DR PO (06:06)
[2022-04-13] MEDS: Acetaminophen 325 MG TABLET 650 MG PO ×3 (06:06→18:22)
[2022-04-13 06:10] LABS: MANUAL DIFF FLAG NO
[2022-04-13 06:30] LABS: Basophils Percent Auto 0.2 % (0-2); Eosinophils Absolute Auto 0.2 X10*3/uL (0.0-0.4); Eosinophils Percent Auto 1.7 % (0-4); Hematocrit 26.2 % (42.0-52.0); Hemoglobin 8.3 g/dl (14.0-18.0); Imm Gran Abs Auto 0.09 X10*3/uL (0.00-0.03); Imm Gran Pct Auto 0.7 % (0.0-0.4); Lymphocytes Absolute Auto 1.2 X10*3/uL (1.2-4.9); Lymphocytes Percent Auto 9.4 % (20-40); Mean Corpuscular HGB Conc 31.7 g/dl (31.0-36.0); Mean Corpuscular Hemoglobin 25.9 pg (27.0-33.0); Mean Corpuscular Volume 81.9 fL (80.0-98.0); Mean Platelet Volume 10.1 fL (9.4-12.4); Monocytes Absolute Auto 0.7 X10*3/uL (0.1-1.2); Monocytes Percent Auto 5.6 % (2-11); Neutrophils Absolute Auto 10.5 x10*3/uL (2.0-8.3); Neutrophils Percent Auto 82.4 % (45-73); Platelet Count 404 X10*3/uL (160-400); Red Cell Distribution Width 14.3 % (11.0-16.0); White Blood Count 12.7 X10*3/uL (4.8-10.8)
[2022-04-13 06:45] LABS: Alanine Aminotransferase 10 U/L (0-40); Albumin Level 2.5 g/dL (3.5-5.0); Alkaline Phosphatase 103 U/L (39-117); Anion Gap 14 (12-20); Aspartate Amino Transferase 11 U/L (5-37); Bilirubin Total 0.2 mg/dL (0.0-1.0); Blood Urea Nitrogen 55 mg/dL (9-16); Calcium 7.8 mg/dL (8.4-10.2); Carbon Dioxide 26 mmol/L (22-29); Chloride 100 mmol/L (96-108); Creatinine Clr Calc Pharmacy 23.9; Estimated Glomerular Filt Rate 16; Glucose Fasting 287 mg/dL (60-99); Potassium 5.2 mmol/L (3.3-5.1); Sodium 135 mmol/L (135-145)
[2022-04-13 07:10] VITALS: BP 127/63; PULSE 82; RESP 18; TEMP 36.4; O2SAT 97
[2022-04-13 07:32] LABS: Glucose, Whole Blood 238 mg/dL (60-115)
[2022-04-13] MEDS: Insulin Lispro 100 UNIT/ML 3 ML VIAL SUBCUT ×4 (07:53→21:15)
[2022-04-13] MEDS: Insulin Glargine,Hum.rec.anlog 100 UNIT/ML 10 ML VIAL 25 UNIT SUBCUT (07:53)
[2022-04-13] MEDS: 0.9 % Sodium Chloride Flush 3 ML SYRINGE IVFLUSH ×3 (07:53→21:16)
[2022-04-13] MEDS: Atorvastatin Calcium 10 MG TABLET PO (07:54)
[2022-04-13] MEDS: methADONE HCl 20 MG/2 ML ORAL.CONC 65 MG PO (07:54)
[2022-04-13] MEDS: Tamsulosin HCL 0.4 MG CAPSULE PO (07:54)
[2022-04-13] MEDS: NIFEdipine ER 30 MG TAB.ER.24 60 MG PO (07:54)
--- NOTE | 2022-04-13 09:37 | MHC.CLN ---
NUTRITION CONSULT FOR SKIN INTEGRITY. REDNESS TO MEDIAL COCCYX, STAGE I. LEFT FOOT SURGICAL WOUND. APPEARS TO BE EATING WELL. DIET=DIABETIC 2200 KCAL. GLUCERNA BID PROVIDES ADDITIONAL 474 KCALS, 20 G PROTEIN. NO NEW NUTRITION INTERVENTIONS AT THIS TIME.
--- NOTE | 2022-04-13 10:29 | PM.PNNEP ---
Subjective Subjective Date of Service: 04/13/22 Interval history: no acute issues overnight. All recent data reviewed Physical Exam Vital Signs: Vital Signs: Last Vital Signs Temp 97.6 F 04/13/22 07:10 Pulse 82 04/13/22 07:10 Resp 18 04/13/22 07:10 BP 127/63 04/13/22 07:10 Pulse Ox 97 04/13/22 07:10 O2 Del Method 04/13/22 07:10 O2 Flow Rate 8 04/04/22 22:25 BMI result Body Mass Index 35.2 Const: General: no acute distress Orientation/consciousness: patient oriented x3 Eyes: EOM: EOMs intact bilaterally Neck: Neck: Yes supple Resp: Auscultation: diminished lung sounds Cardio: Rate: regular rate GI: Palpation (GI): Soft to palpation Neuro: General: patient oriented x3 Objective Data Labs CBC & Chem 7: 04/13/22 05:23 04/13/22 05:23 Labs: Laboratory Results - last 24 hr 04/12/22 04/12/22 04/12/22 11:13 15:12 19:01 WBC RBC Hgb Hct MCV MCH MCHC RDW Plt Count MPV Immature Gran % (Auto) Neut % (Auto) Lymph % (Auto) [place] % (Auto) Eos % (Auto) Baso % (Auto) Lymph # (Auto) [place] # (Auto) Eos # (Auto) Baso # (Auto) Abs Immat Gran (auto) Absolute Neuts (auto) Absolute Nucleated RBC Nucleated RBC % (auto) Sodium Potassium Chloride Carbon Dioxide Anion Gap BUN Creatinine Estim Creat Clear Calc Estimated GFR POC Glucose 261 H 269 H 341 H Fasting Glucose Calcium Total Bilirubin AST ALT Alkaline Phosphatase Total Protein Albumin 04/13/22 04/13/22 04/13/22 05:23 05:23 07:14 WBC 12.7 H RBC 3.20 L Hgb 8.3 L Hct 26.2 L MCV 81.9 MCH 25.9 L MCHC 31.7 RDW 14.3 Plt Count 404 H MPV 10.1 Immature Gran % (Auto) 0.7 H Neut % (Auto) 82.4 H Lymph % (Auto) 9.4 L [place] % (Auto) 5.6 Eos % (Auto) 1.7 Baso % (Auto) 0.2 Lymph # (Auto) 1.2 [place] # (Auto) 0.7 Eos # (Auto) 0.2 Baso # (Auto) 0.0 Abs Immat Gran (auto) 0.09 H Absolute Neuts (auto) 10.5 H Absolute Nucleated RBC 0.000 Nucleated RBC % (auto) 0.0 Sodium 135 Potassium 5.2 H Chloride 100 Carbon Dioxide 26 Anion Gap 14 BUN 55 H Creatinine 3.92 H Estim Creat Clear Calc 23.9 Estimated GFR 16 POC Glucose 238 H Fasting Glucose 287 H Calcium 7.8 L Total Bilirubin 0.2 AST 11 ALT 10 Alkaline Phosphatase 103 Total Protein 6.0 L Albumin 2.5 L Microbiology Microbiology Results: Microbiology 04/04/22 18:15 Blood - Venous Blood Culture - Final No growth after 5 days. 04/04/22 17:53 Blood - Venous Blood Culture - Final No growth after 5 days. 04/04/22 Unknown Foot Left Gram Stain - Final 04/04/22 Unknown Foot Left Routine Culture - Final Strep agalactiae (Grp B) Methicillin Res Staph Aureus Procedures Date of Service Date of Service: 04/13/22 Assessment & Plan Assessment and plan (1) Acute kidney injury: Status: Acute Assessment and Plan: Acute Kidney Injury likely due to tubular injury (multifactorial- septic ATN & had been receiving Vanco) No significant RBC in the urine to suspect GN Was on ACEI at home which is on hold Had a Castano catheter with good urine output No indication for renal replacement Can have a PICC line from a renal perspective Labs AM. Shall closely follow up Time Spent With Patient Time: Total time spent is greater than 50% in coordination of care (as documented) at patient's floor/unit and/or counseling patient: Progress Note: Quality Stroke Does the patient have a stroke diagnosis?: No
[2022-04-13 11:01] VITALS: BP 151/71; PULSE 87; RESP 18; TEMP 36.2; O2SAT 97
[2022-04-13 11:20] LABS: Glucose, Whole Blood 248 mg/dL (60-115)
--- NOTE | 2022-04-13 12:06 | MHC.CM.PN ---
[place] [facility] Patient provided information on Rent Arrears Programs as he is behind on his rent. Also, [employer] phone number provided.
[2022-04-13] MEDS: DAPTOmycin 700 MG in 0.9 % Sodium Chloride 50 ML 128 MG IV (15:14)
--- NOTE | 2022-04-13 15:50 | HO.PM.IMPN ---
Subjective Subjective Date of Service: 04/13/22 Interval History: no acute issues overnight Review of Systems denies chest pain Denies shortness of breath Denies nausea vomiting diarrhea Denies fever chills Physical Exam Vital Signs: Vital Signs: Last Vital Signs Temp 97.1 F 04/13/22 11:01 Pulse 87 04/13/22 11:01 Resp 18 04/13/22 11:01 BP 151/71 H 04/13/22 11:01 Pulse Ox 97 04/13/22 11:01 O2 Del Method 04/13/22 11:01 O2 Flow Rate 8 04/04/22 22:25 BMI result Body Mass Index 35.2 Const: Other: and no acute distress Resp: Other: clear to auscultation bilaterally no rales rhonchi or wheezes Cardio: Other: no S4; positive S1-S2; no S3 murmurs rubs or gallops GI: Other: soft nontender nondistended with normoactive bowel sounds Extrem: Other: mild left lower extremities edema; wrapped in Jeramie wrap Objective Data Active Medications Acetaminophen (Acetaminophen 325 Mg Tablet) 650 mg PO Q6H PRN PRN Reason: Pain, Moderate (Pain Scale 4-6 Last Admin: 04/13/22 12:14 Dose: 650 mg Documented By: SACHIN Atorvastatin Calcium (Atorvastatin Calcium 10 Mg Tablet) 10 mg PO DAILY [facility] Last Admin: 04/13/22 07:54 Dose: 10 mg Documented By: SACHIN Dextrose (Dextrose 50 % 25 Gm/50 Ml Syringe) 25 gm IVPUSH Q15M PRN; Protocol PRN Reason: per Hypoglycemia Standing Ord. Dextrose (Dextrose 50 % 25 Gm/50 Ml Syringe) 25 gm IVPUSH Q15M PRN; Protocol PRN Reason: per Hypoglycemia Standing Ord. Enoxaparin Sodium (Enoxaparin Sodium 30 Mg/0.3 Ml Syringe) 30 mg SUBCUT Q24H [facility] Last Admin: 04/12/22 21:06 Dose: 30 mg Documented By: CANELO Glucose (Glucose Gel 15 Gm Gel..Gram.) 15 gm PO Q15M PRN; Protocol PRN Reason: per Hypoglycemia Standing Ord. Glucose (Glucose Gel 15 Gm Gel..Gram.) 15 gm PO Q15M PRN; Protocol PRN Reason: per Hypoglycemia Standing Ord. Hydroxyzine HCl (Hydroxyzine Hcl 25 Mg Tablet) 25 mg PO TID PRN PRN Reason: itching Daptomycin 700 mg/ Sodium (Chloride) 64 mls @ 128 mls/hr IV Q48H [facility] Stop: 06/28/22 15:29 Last Admin: 04/13/22 15:14 Dose: 128 mls/hr Documented By: SACHIN Insulin Glargine (Insulin Glargine,Hum.Rec.Anlog 100 Unit/Ml 10 Ml Vial) 25 unit SUBCUT DAILY [facility] Last Admin: 04/13/22 07:53 Dose: 25 unit Documented By: SACHIN Insulin Human Lispro (Insulin Lispro 100 Unit/Ml 3 Ml Vial) 0 unit SUBCUT QIDACHS [facility]; Protocol Last Admin: 04/13/22 12:14 Dose: 6 unit Documented By: SACHIN Methadone HCl (Methadone Hcl 20 Mg/2 Ml Oral.Conc) 65 mg PO DAILY [facility] Last Admin: 04/13/22 07:54 Dose: 65 mg Documented By: SACHIN Nifedipine (Nifedipine Er 30 Mg Tab.Er.24) 60 mg PO DAILY [facility]; Protocol Last Admin: 04/13/22 07:54 Dose: 60 mg Documented By: SACHIN Omeprazole (Omeprazole 20 Mg Capsule.Dr) 20 mg PO DAILY@0630 [facility] Last Admin: 04/13/22 06:06 Dose: 20 mg Documented By: CANELO Ondansetron HCl (Ondansetron Hcl 4 Mg/2 Ml Vial) 4 mg IVPUSH Q8H PRN PRN Reason: Nausea and Vomiting Last Admin: 04/05/22 19:13 Dose: 4 mg Documented By: RICHARD Pharmacy Consult (Consult Rx Perform Med Rec) 1 each MISCELLANE ONCE PRN PRN Reason: Consult order Pharmacy Consult (Consult Rx Vancomycin Dosing) 1 each MISCELLANE DAILY PRN PRN Reason: Consult order Sodium Chloride (0.9 % Sodium Chloride Flush 3 Ml Syringe) 3 ml IVFLUSH QSHIFT [facility] Last Admin: 04/13/22 07:53 Dose: 3 ml Documented By: SACHIN Tamsulosin HCl (Tamsulosin Hcl 0.4 Mg Capsule) 0.4 mg PO DAILY [facility] Last Admin: 04/13/22 07:54 Dose: 0.4 mg Documented By: SACHIN Labs CBC & Chem 7: 04/13/22 05:23 04/13/22 05:23 Labs: Laboratory Results - last 24 hr 04/12/22 04/13/22 04/13/22 19:01 05:23 05:23 MCV 81.9 MCH 25.9 L MCHC 31.7 RDW 14.3 Plt Count 404 H MPV 10.1 Immature Gran % (Auto) 0.7 H Neut % (Auto) 82.4 H Lymph % (Auto) 9.4 L [place] % (Auto) 5.6 Eos % (Auto) 1.7 Baso % (Auto) 0.2 Lymph # (Auto) 1.2 [place] # (Auto) 0.7 Eos # (Auto) 0.2 Baso # (Auto) 0.0 Abs Immat Gran (auto) 0.09 H Absolute Neuts (auto) 10.5 H Absolute Nucleated RBC 0.000 Nucleated RBC % (auto) 0.0 Anion Gap 14 Estim Creat Clear Calc 23.9 Estimated GFR 16 POC Glucose 341 H Fasting Glucose 287 H Calcium 7.8 L Total Bilirubin 0.2 AST 11 ALT 10 Alkaline Phosphatase 103 Total Protein 6.0 L Albumin 2.5 L 04/13/22 04/13/22 07:14 11:05 MCV MCH MCHC RDW Plt Count MPV Immature Gran % (Auto) Neut % (Auto) Lymph % (Auto) [place] % (Auto) Eos % (Auto) Baso % (Auto) Lymph # (Auto) [place] # (Auto) Eos # (Auto) Baso # (Auto) Abs Immat Gran (auto) Absolute Neuts (auto) Absolute Nucleated RBC Nucleated RBC % (auto) Anion Gap Estim Creat Clear Calc Estimated GFR POC Glucose 238 H 248 H Fasting Glucose Calcium Total Bilirubin AST ALT Alkaline Phosphatase Total Protein Albumin Assessment and Plan (1) Diabetic infection of left foot: Status: Acute (2) Acute kidney injury: Status: Acute (3) Osteomyelitis: Status: Acute (4) Diabetes type 2, controlled: Status: Acute Plan 56 year old male with a PMH of insulin dependant DM who is admitted under to the general surgical services for diabetic foot infection. Medical consult requested for mgmt of DM + med mgmt. 1. 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 ID recommends 6 weeks total -PICC in am -vascular imaging as per Dr. Meyer 2. AMY, - creatinine plateaued -follow renals/divalents - PICC line tomorrowl 3. Acute anemia - counts stabilized - continue to follow 4. DM II - will add 10 units Lantus at HS - lispro correctional scale - adjust therapies as indicated 5. HTN - acceptable control on nifedipine - adjust as indicated 6. Chronic opiate dependence -continue methadone DVT prophylaxis with Lovenox Code status full code Disposition patient will need continued inpatient hospitalization due to acute renal failure, left foot infection requiring IV antibiotic and possible vascular intervention. Quality Stroke Does the patient have a stroke diagnosis?: No VTE Prior VTE?: No VTE Risk Level:: Surgical - moderate VTE Device Contraindication: N/A - Device Ordered VTE Drug Contraindication: N/A - Med Ordered
[2022-04-13 15:54] VITALS: BP 148/70; PULSE 96; RESP 16; TEMP 36.7; O2SAT 98
[2022-04-13 16:14] LABS: Glucose, Whole Blood 297 mg/dL (60-115)
--- NOTE | 2022-04-13 16:35 | MHC.CM.PN ---
CM ASSISTED PATIENT [facility] NOTICE TO QUIT DOCUMENT.
[2022-04-13 20:15] VITALS: BP 143/71; PULSE 95; RESP 17; TEMP 36.9; O2SAT 96
[2022-04-13 20:38] LABS: Glucose, Whole Blood 289 mg/dL (60-115)
[2022-04-13] MEDS: Enoxaparin Sodium 30 MG/0.3 ML SYRINGE SUBCUT (23:03)
[2022-04-13 23:23] VITALS: BP 138/65; PULSE 86; RESP 18; TEMP 37.2; O2SAT 97
[2022-04-14] MEDS: Acetaminophen 325 MG TABLET 650 MG PO (03:04)
[2022-04-14 03:17] VITALS: BP 146/69; PULSE 84; RESP 18; TEMP 36.6; O2SAT 96
[2022-04-14] MEDS: Omeprazole 20 MG CAPSULE.DR PO (06:08)
[2022-04-14 06:21] LABS: MANUAL DIFF FLAG NO
[2022-04-14 06:32] LABS: Basophils Percent Auto 0.3 % (0-2); Eosinophils Absolute Auto 0.2 X10*3/uL (0.0-0.4); Eosinophils Percent Auto 1.4 % (0-4); Hemoglobin 8.7 g/dl (14.0-18.0); Imm Gran Abs Auto 0.12 X10*3/uL (0.00-0.03); Imm Gran Pct Auto 0.9 % (0.0-0.4); Lymphocytes Absolute Auto 1.2 X10*3/uL (1.2-4.9); Lymphocytes Percent Auto 8.8 % (20-40); Mean Corpuscular HGB Conc 31.1 g/dl (31.0-36.0); Mean Corpuscular Hemoglobin 25.6 pg (27.0-33.0); Mean Corpuscular Volume 82.4 fL (80.0-98.0); Mean Platelet Volume 10.1 fL (9.4-12.4); Monocytes Absolute Auto 0.8 X10*3/uL (0.1-1.2); Monocytes Percent Auto 5.9 % (2-11); Neutrophils Absolute Auto 11.5 x10*3/uL (2.0-8.3); Neutrophils Percent Auto 82.7 % (45-73); Platelet Count 428 X10*3/uL (160-400); Red Cell Distribution Width 14.6 % (11.0-16.0); White Blood Count 13.9 X10*3/uL (4.8-10.8)
[2022-04-14 07:28] LABS: Alanine Aminotransferase 9 U/L (0-40); Albumin Level 2.7 g/dL (3.5-5.0); Alkaline Phosphatase 109 U/L (39-117); Anion Gap 18 (12-20); Aspartate Amino Transferase 11 U/L (5-37); Bilirubin Total < 0.2 mg/dL (0.0-1.0); Blood Urea Nitrogen 54 mg/dL (9-16); Calcium 8.1 mg/dL (8.4-10.2); Carbon Dioxide 24 mmol/L (22-29); Chloride 101 mmol/L (96-108); Creatinine Clr Calc Pharmacy 22.6; Estimated Glomerular Filt Rate 15; Glucose Fasting 210 mg/dL (60-99); Potassium 5.3 mmol/L (3.3-5.1); Sodium 138 mmol/L (135-145); Total Protein 6.7 g/dL (6.5-8.0)
[2022-04-14 07:34] VITALS: BP 135/72; PULSE 85; RESP 18; TEMP 36.3; O2SAT 98
[2022-04-14 07:52] LABS: Glucose, Whole Blood 176 mg/dL (60-115)
[2022-04-14] MEDS: Insulin Lispro 100 UNIT/ML 3 ML VIAL SUBCUT ×4 (08:16→20:29)
[2022-04-14] MEDS: Insulin Glargine,Hum.rec.anlog 100 UNIT/ML 10 ML VIAL 25 UNIT SUBCUT (08:17)
[2022-04-14] MEDS: methADONE HCl 20 MG/2 ML ORAL.CONC 65 MG PO (08:18)
[2022-04-14] MEDS: 0.9 % Sodium Chloride Flush 3 ML SYRINGE IVFLUSH ×3 (08:18→20:26)
[2022-04-14] MEDS: NIFEdipine ER 30 MG TAB.ER.24 60 MG PO (08:18)
[2022-04-14] MEDS: Tamsulosin HCL 0.4 MG CAPSULE PO (08:18)
[2022-04-14] MEDS: Atorvastatin Calcium 10 MG TABLET PO (08:18)
--- NOTE | 2022-04-14 09:37 | P.PNGS_ITS ---
Subjective Subjective Date of Service: 04/14/22 Interval history: Patient is anxious for discharge to home, does not want penitentiary/rehab. Denies significant foot pain at this time. Physical Exam Vital Signs: Vital Signs: Last Vital Signs Temp 97.4 F 04/14/22 07:34 Pulse 85 04/14/22 07:34 Resp 18 04/14/22 07:34 BP 135/72 04/14/22 07:34 Pulse Ox 98 04/14/22 07:34 O2 Del Method 04/14/22 07:34 O2 Flow Rate 8 04/04/22 22:25 BMI result Body Mass Index 35.2 Const: General: tired appearing Nutritional Appearance: well nourished Orientation/consciousness: patient oriented x3 Limitations: ambulation with walker Resp: Effort & Inspection: normal respiratory effort, no audible wheezes, no cough and no respiratory distress Skin: Other: Warm, dry, no rash Neuro: General: patient oriented x3 Extrem: Other: Dressings changed to the left foot. New blister noted over the webspace of the great toe and 2nd toe but no necrotic skin appreciated. No surrounding erythema. The base of the 4th toe is dry with minimal discharge. No erythema or new necrotic skin identified. Clean dressings applied. Jeramie bandage left off, only applied fluffed gauze and Kerlix. Ankle/foot/toe images: 1. New blister over 1st and 2nd toe webspace Objective Data Active Medications Acetaminophen (Acetaminophen 325 Mg Tablet) 650 mg PO Q6H PRN PRN Reason: Pain, Moderate (Pain Scale 4-6 Last Admin: 04/14/22 03:04 Dose: 650 mg Documented By: GAMALIEL Atorvastatin Calcium (Atorvastatin Calcium 10 Mg Tablet) 10 mg PO DAILY [facility] Last Admin: 04/14/22 08:18 Dose: 10 mg Documented By: BEREKET Dextrose (Dextrose 50 % 25 Gm/50 Ml Syringe) 25 gm IVPUSH Q15M PRN; Protocol PRN Reason: per Hypoglycemia Standing Ord. Dextrose (Dextrose 50 % 25 Gm/50 Ml Syringe) 25 gm IVPUSH Q15M PRN; Protocol PRN Reason: per Hypoglycemia Standing Ord. Enoxaparin Sodium (Enoxaparin Sodium 30 Mg/0.3 Ml Syringe) 30 mg SUBCUT Q24H [facility] Last Admin: 04/13/22 23:03 Dose: 30 mg Documented By: LESIA Glucose (Glucose Gel 15 Gm Gel..Gram.) 15 gm PO Q15M PRN; Protocol PRN Reason: per Hypoglycemia Standing Ord. Glucose (Glucose Gel 15 Gm Gel..Gram.) 15 gm PO Q15M PRN; Protocol PRN Reason: per Hypoglycemia Standing Ord. Hydroxyzine HCl (Hydroxyzine Hcl 25 Mg Tablet) 25 mg PO TID PRN PRN Reason: itching Daptomycin 700 mg/ Sodium (Chloride) 64 mls @ 128 mls/hr IV Q48H [facility] Stop: 06/28/22 15:29 Last Infusion: 04/13/22 15:52 Dose: 0 mls/hr Documented By: SACHIN Insulin Glargine (Insulin Glargine,Hum.Rec.Anlog 100 Unit/Ml 10 Ml Vial) 25 unit SUBCUT DAILY [facility] Last Admin: 04/14/22 08:17 Dose: 25 unit Documented By: BEREKET Insulin Human Lispro (Insulin Lispro 100 Unit/Ml 3 Ml Vial) 0 unit SUBCUT QIDACHS [facility]; Protocol Last Admin: 04/14/22 08:16 Dose: 4 unit Documented By: BEREKET Methadone HCl (Methadone Hcl 20 Mg/2 Ml Oral.Conc) 65 mg PO DAILY [facility] Last Admin: 04/14/22 08:18 Dose: 65 mg Documented By: BEREKET Nifedipine (Nifedipine Er 30 Mg Tab.Er.24) 60 mg PO DAILY [facility]; Protocol Last Admin: 04/14/22 08:18 Dose: 60 mg Documented By: BEREKET Omeprazole (Omeprazole 20 Mg Capsule.Dr) 20 mg PO DAILY@0630 [facility] Last Admin: 04/14/22 06:08 Dose: 20 mg Documented By: GAMALIEL Ondansetron HCl (Ondansetron Hcl 4 Mg/2 Ml Vial) 4 mg IVPUSH Q8H PRN PRN Reason: Nausea and Vomiting Last Admin: 04/05/22 19:13 Dose: 4 mg Documented By: RICHARD Pharmacy Consult (Consult Rx Perform Med Rec) 1 each MISCELLANE ONCE PRN PRN Reason: Consult order Pharmacy Consult (Consult Rx Vancomycin Dosing) 1 each MISCELLANE DAILY PRN PRN Reason: Consult order Sodium Chloride (0.9 % Sodium Chloride Flush 3 Ml Syringe) 3 ml IVFLUSH QSHIFT [facility] Last Admin: 04/14/22 08:18 Dose: 3 ml Documented By: BEREKET Tamsulosin HCl (Tamsulosin Hcl 0.4 Mg Capsule) 0.4 mg PO DAILY [facility] Last Admin: 04/14/22 08:18 Dose: 0.4 mg Documented By: BEREKET Labs CBC & Chem 7: 04/14/22 05:29 04/14/22 05:29 Labs: Laboratory Results - last 24 hr 04/13/22 04/13/22 04/13/22 11:05 15:57 20:18 MCV MCH MCHC RDW Plt Count MPV Immature Gran % (Auto) Neut % (Auto) Lymph % (Auto) [place] % (Auto) Eos % (Auto) Baso % (Auto) Lymph # (Auto) [place] # (Auto) Eos # (Auto) Baso # (Auto) Abs Immat Gran (auto) Absolute Neuts (auto) Absolute Nucleated RBC Nucleated RBC % (auto) Anion Gap Estim Creat Clear Calc Estimated GFR POC Glucose 248 H 297 H 289 H Fasting Glucose Calcium Total Bilirubin AST ALT Alkaline Phosphatase Total Protein Albumin 04/14/22 04/14/22 04/14/22 05:29 05:29 07:38 MCV 82.4 MCH 25.6 L MCHC 31.1 RDW 14.6 Plt Count 428 H MPV 10.1 Immature Gran % (Auto) 0.9 H Neut % (Auto) 82.7 H Lymph % (Auto) 8.8 L [place] % (Auto) 5.9 Eos % (Auto) 1.4 Baso % (Auto) 0.3 Lymph # (Auto) 1.2 [place] # (Auto) 0.8 Eos # (Auto) 0.2 Baso # (Auto) 0.0 Abs Immat Gran (auto) 0.12 H Absolute Neuts (auto) 11.5 H Absolute Nucleated RBC 0.000 Nucleated RBC % (auto) 0.0 Anion Gap 18 Estim Creat Clear Calc 22.6 Estimated GFR 15 POC Glucose 176 H Fasting Glucose 210 H Calcium 8.1 L Total Bilirubin < 0.2 AST 11 ALT 9 Alkaline Phosphatase 109 Total Protein 6.7 Albumin 2.7 L Procedures Date of Service Date of Service: 04/14/22 Progress Note: A&P Assessment and plan (1) Diabetic infection of left foot: Status: Acute (2) Toe necrosis: Status: Acute (3) Osteomyelitis: Status: Acute Plan Dressings changed to the left foot and overall the erythema is much improved over the leg and foot. Not much healing noted at the base of the 4th toe however. There is also a new blister over the webspace of the 1st and 2nd toes. Will stop using Jeramie bandage and use only fluffed gauze and Kerlix. Acute kidney injury remains a problem, unable to undergo vascular procedure at this time. Will continue to monitor wounds. Time Spent With Patient Time: Total time spent is greater than 50% in coordination of care (as documented) at patient's floor/unit and/or counseling patient: Quality Stroke Does the patient have a stroke diagnosis?: No VTE Prior VTE?: No VTE Risk Level:: Surgical - moderate VTE Device Contraindication: N/A - Device Ordered VTE Drug Contraindication: N/A - Med Ordered
[2022-04-14 11:17] VITALS: BP 179/81; PULSE 101; RESP 18; TEMP 36.6; O2SAT 97
--- NOTE | 2022-04-14 11:24 | P.PNNP_ITS ---
Subjective Subjective Date of Service: 04/15/22 Interval history: No acute issues overnight; Events noted; All recent data reviewed Physical Exam Vital Signs: Vital Signs: Last Vital Signs Temp 97.9 F 04/14/22 11:17 Pulse 101 H 04/14/22 11:17 Resp 18 04/14/22 11:17 BP 179/81 H 04/14/22 11:17 Pulse Ox 97 04/14/22 11:17 O2 Del Method 04/14/22 11:17 O2 Flow Rate 8 04/04/22 22:25 BMI result Body Mass Index 35.2 Const: General: no acute distress Orientation/consciousness: patient oriented x3 HEENT: Head: Yes normocephalic Eyes: EOM: EOMs intact bilaterally Resp: Auscultation: diminished lung sounds Cardio: Rate: regular rate GI: Palpation (GI): Soft to palpation Neuro: General: patient oriented x3 Objective Data Labs CBC & Chem 7: 04/15/22 06:34 04/15/22 06:34 Labs: Laboratory Results - last 24 hr 04/13/22 04/13/22 04/14/22 15:57 20:18 05:29 WBC 13.9 H RBC 3.40 L Hgb 8.7 L Hct 28.0 L MCV 82.4 MCH 25.6 L MCHC 31.1 RDW 14.6 Plt Count 428 H MPV 10.1 Immature Gran % (Auto) 0.9 H Neut % (Auto) 82.7 H Lymph % (Auto) 8.8 L [place] % (Auto) 5.9 Eos % (Auto) 1.4 Baso % (Auto) 0.3 Lymph # (Auto) 1.2 [place] # (Auto) 0.8 Eos # (Auto) 0.2 Baso # (Auto) 0.0 Abs Immat Gran (auto) 0.12 H Absolute Neuts (auto) 11.5 H Absolute Nucleated RBC 0.000 Nucleated RBC % (auto) 0.0 Sodium Potassium Chloride Carbon Dioxide Anion Gap BUN Creatinine Estim Creat Clear Calc Estimated GFR POC Glucose 297 H 289 H Fasting Glucose Calcium Total Bilirubin AST ALT Alkaline Phosphatase Total Protein Albumin 04/14/22 04/14/22 05:29 07:38 WBC RBC Hgb Hct MCV MCH MCHC RDW Plt Count MPV Immature Gran % (Auto) Neut % (Auto) Lymph % (Auto) [place] % (Auto) Eos % (Auto) Baso % (Auto) Lymph # (Auto) [place] # (Auto) Eos # (Auto) Baso # (Auto) Abs Immat Gran (auto) Absolute Neuts (auto) Absolute Nucleated RBC Nucleated RBC % (auto) Sodium 138 Potassium 5.3 H Chloride 101 Carbon Dioxide 24 Anion Gap 18 BUN 54 H Creatinine 4.14 H* Estim Creat Clear Calc 22.6 Estimated GFR 15 POC Glucose 176 H Fasting Glucose 210 H Calcium 8.1 L Total Bilirubin < 0.2 AST 11 ALT 9 Alkaline Phosphatase 109 Total Protein 6.7 Albumin 2.7 L Microbiology Microbiology Results: Microbiology 04/04/22 18:15 Blood - Venous Blood Culture - Final No growth after 5 days. 04/04/22 17:53 Blood - Venous Blood Culture - Final No growth after 5 days. 04/04/22 Unknown Foot Left Gram Stain - Final 04/04/22 Unknown Foot Left Routine Culture - Final Strep agalactiae (Grp B) Methicillin Res Staph Aureus Procedures Date of Service Date of Service: 04/14/22 Assessment & Plan Assessment and plan (1) Acute kidney injury: Status: Acute Assessment and Plan: Acute Kidney Injury likely due to tubular injury (multifactorial- septic ATN & had been receiving Vanco) No significant RBC in the urine to suspect GN Was on ACEI at home which is on hold Had a Castano catheter with good urine output No indication for renal replacement today BP needs better control- Start Carvedilol 12.5 mg bid if BP remains high Renal biopsy tomorrow if possible Labs AM. Shall closely follow up Time Spent With Patient Time: Total time spent is greater than 50% in coordination of care (as documented) at patient's floor/unit and/or counseling patient: Progress Note: Quality Stroke Does the patient have a stroke diagnosis?: No
[2022-04-14 11:36] LABS: Glucose, Whole Blood 236 mg/dL (60-115)
--- NOTE | 2022-04-14 13:01 | P.PNIM_ITS ---
Subjective Subjective Date of Service: 04/14/22 Interval History: no acute issues overnight. Pain control adequate Review of Systems denies chest pain Denies shortness of breath Denies nausea vomiting diarrhea Denies fever chills Physical Exam Vital Signs: Vital Signs: Last Vital Signs Temp 97.9 F 04/14/22 11:17 Pulse 101 H 04/14/22 11:17 Resp 18 04/14/22 11:17 BP 179/81 H 04/14/22 11:17 Pulse Ox 97 04/14/22 11:17 O2 Del Method 04/14/22 11:17 O2 Flow Rate 8 04/04/22 22:25 BMI result Body Mass Index 35.2 Const: Other: and no acute distress Resp: Other: clear to auscultation bilaterally no rales rhonchi or wheezes Cardio: Other: no S4; positive S1-S2; no S3 murmurs rubs or gallops GI: Other: soft nontender nondistended with normoactive bowel sounds Extrem: Other: mild left lower extremities edema; wrapped in Jeramie wrap Objective Data Active Medications Acetaminophen (Acetaminophen 325 Mg Tablet) 650 mg PO Q6H PRN PRN Reason: Pain, Moderate (Pain Scale 4-6 Last Admin: 04/14/22 03:04 Dose: 650 mg Documented By: GAMALIEL Atorvastatin Calcium (Atorvastatin Calcium 10 Mg Tablet) 10 mg PO DAILY [facility] Last Admin: 04/14/22 08:18 Dose: 10 mg Documented By: BEREKET Carvedilol (Carvedilol 12.5 Mg Tablet) 12.5 mg PO BID [facility]; Protocol Dextrose (Dextrose 50 % 25 Gm/50 Ml Syringe) 25 gm IVPUSH Q15M PRN; Protocol PRN Reason: per Hypoglycemia Standing Ord. Dextrose (Dextrose 50 % 25 Gm/50 Ml Syringe) 25 gm IVPUSH Q15M PRN; Protocol PRN Reason: per Hypoglycemia Standing Ord. Glucose (Glucose Gel 15 Gm Gel..Gram.) 15 gm PO Q15M PRN; Protocol PRN Reason: per Hypoglycemia Standing Ord. Glucose (Glucose Gel 15 Gm Gel..Gram.) 15 gm PO Q15M PRN; Protocol PRN Reason: per Hypoglycemia Standing Ord. Hydroxyzine HCl (Hydroxyzine Hcl 25 Mg Tablet) 25 mg PO TID PRN PRN Reason: itching Daptomycin 700 mg/ Sodium (Chloride) 64 mls @ 128 mls/hr IV Q48H [facility] Stop: 06/28/22 15:29 Last Infusion: 04/13/22 15:52 Dose: 0 mls/hr Documented By: SACHIN Insulin Glargine (Insulin Glargine,Hum.Rec.Anlog 100 Unit/Ml 10 Ml Vial) 25 unit SUBCUT DAILY [facility] Last Admin: 04/14/22 08:17 Dose: 25 unit Documented By: BEREKET Insulin Human Lispro (Insulin Lispro 100 Unit/Ml 3 Ml Vial) 0 unit SUBCUT QIDACHS [facility]; Protocol Last Admin: 04/14/22 11:49 Dose: 6 unit Documented By: BEREKET Methadone HCl (Methadone Hcl 20 Mg/2 Ml Oral.Conc) 65 mg PO DAILY [facility] Last Admin: 04/14/22 08:18 Dose: 65 mg Documented By: BEREKET Nifedipine (Nifedipine Er 30 Mg Tab.Er.24) 60 mg PO DAILY [facility]; Protocol Last Admin: 04/14/22 08:18 Dose: 60 mg Documented By: BEREKET Omeprazole (Omeprazole 20 Mg Capsule.Dr) 20 mg PO DAILY@0630 [facility] Last Admin: 04/14/22 06:08 Dose: 20 mg Documented By: GAMALIEL Ondansetron HCl (Ondansetron Hcl 4 Mg/2 Ml Vial) 4 mg IVPUSH Q8H PRN PRN Reason: Nausea and Vomiting Last Admin: 04/05/22 19:13 Dose: 4 mg Documented By: RICHARD Pharmacy Consult (Consult Rx Perform Med Rec) 1 each MISCELLANE ONCE PRN PRN Reason: Consult order Pharmacy Consult (Consult Rx Vancomycin Dosing) 1 each MISCELLANE DAILY PRN PRN Reason: Consult order Sodium Chloride (0.9 % Sodium Chloride Flush 3 Ml Syringe) 3 ml IVFLUSH QSHIFT [facility] Last Admin: 04/14/22 08:18 Dose: 3 ml Documented By: BEREKET Tamsulosin HCl (Tamsulosin Hcl 0.4 Mg Capsule) 0.4 mg PO DAILY [facility] Last Admin: 04/14/22 08:18 Dose: 0.4 mg Documented By: BEREKET Labs CBC & Chem 7: 04/14/22 05:29 04/14/22 05:29 Labs: Laboratory Results - last 24 hr 04/13/22 04/13/22 04/14/22 15:57 20:18 05:29 MCV 82.4 MCH 25.6 L MCHC 31.1 RDW 14.6 Plt Count 428 H MPV 10.1 Immature Gran % (Auto) 0.9 H Neut % (Auto) 82.7 H Lymph % (Auto) 8.8 L [place] % (Auto) 5.9 Eos % (Auto) 1.4 Baso % (Auto) 0.3 Lymph # (Auto) 1.2 [place] # (Auto) 0.8 Eos # (Auto) 0.2 Baso # (Auto) 0.0 Abs Immat Gran (auto) 0.12 H Absolute Neuts (auto) 11.5 H Absolute Nucleated RBC 0.000 Nucleated RBC % (auto) 0.0 Anion Gap Estim Creat Clear Calc Estimated GFR POC Glucose 297 H 289 H Fasting Glucose Calcium Total Bilirubin AST ALT Alkaline Phosphatase Total Protein Albumin 04/14/22 04/14/22 04/14/22 05:29 07:38 11:21 MCV MCH MCHC RDW Plt Count MPV Immature Gran % (Auto) Neut % (Auto) Lymph % (Auto) [place] % (Auto) Eos % (Auto) Baso % (Auto) Lymph # (Auto) [place] # (Auto) Eos # (Auto) Baso # (Auto) Abs Immat Gran (auto) Absolute Neuts (auto) Absolute Nucleated RBC Nucleated RBC % (auto) Anion Gap 18 Estim Creat Clear Calc 22.6 Estimated GFR 15 POC Glucose 176 H 236 H Fasting Glucose 210 H Calcium 8.1 L Total Bilirubin < 0.2 AST 11 ALT 9 Alkaline Phosphatase 109 Total Protein 6.7 Albumin 2.7 L Assessment and Plan (1) Diabetic infection of left foot: Status: Acute (2) Acute kidney injury: Status: Acute (3) Osteomyelitis: Status: Acute (4) Diabetes type 2, controlled: Status: Acute Plan 56 year old male with a PMH of insulin dependant DM who is admitted under to the general surgical services for diabetic foot infection. Medical consult requested for mgmt of DM + med mgmt. 1. 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 ID recommends 6 weeks total - per Renal; midline sufficient for now -vascular imaging as per Dr. Meyer 2. AMY, - creatinine slowly rising. - Biopsy in a.m.. Lovenox DC'd -follow renals/divalents l 3. Acute anemia - counts stabilized - continue to follow 4. DM II - increase am Lantus to 30units - lispro correctional scale - adjust therapies as indicated 5. HTN - poorly controlled - add Coreg 12.5 b.i.d. - adjust as indicated 6. Chronic opiate dependence -continue methadone DVT prophylaxis with Lovenox Code status full code Disposition patient will need continued inpatient hospitalization due to acute renal failure, left foot infection requiring IV antibiotic and possible vascular intervention. Quality Stroke Does the patient have a stroke diagnosis?: No VTE Prior VTE?: No VTE Risk Level:: Surgical - moderate VTE Device Contraindication: N/A - Device Ordered VTE Drug Contraindication: N/A - Med Ordered
[2022-04-14] MEDS: carvediloL 12.5 MG TABLET PO (13:09)
--- NOTE | 2022-04-14 13:19 | P.CDIC_ITS ---
CDI Concurrent Query Documentation Clarification: PHYSICIAN'S DOCUMENTATION REQUEST Date of Query: 04/14/22 1327 Patient Name: Ulysses Acevedo Admit Date: 04/04/22 Dear Doctor, A review of the medical record indicates additional documentation may be needed. Please review below and update the documentation accordingly. Clinical Indicators: Risk Factors/Clinical Indicators/Treatments BS 04/12/22: 341 BS 04/13/22: 238, 248, 297, 289 BS 04/14/22: 176, 236 Per MD progress note 04/14/22: DM II - increase am Lantus to 30units - lispro correctional scale - adjust therapies as indicated Please clarify the following regarding Diabetes Mellitus (DM): Complications of DM: * Hyperglycemia * Other complication ? please specify * Unable to determine Use of terms such as suspected, likely, concern for, or probable (associated with a specific diagnosis that is being evaluated, monitored, or treated as if it exists) are acceptable and can be coded in the inpatient setting, when documented at the time of discharge. Thank you, Deborah Lord RN Extension: [phone] Please use your independent medical judgment in providing your response. THIS QUERY IS PART OF THE PERMANENT MEDICAL RECORD Provider Response: Other Other Diagnosis: diabetes with other complications
--- NOTE | 2022-04-14 16:00 | MHC.CM.PN ---
PER ROUNDS DISCUSSION, PATIENT IS NOT YET MEDICALLY CLEARED FOR DISCHARGE TODAY, MAY BE INPATIENT THROUGH WEEKEND R/T ACUTE RENAL FAILURE-MAY REQUIRE BIOPSY; LEFT FOOT INFECTION REQUIRING IV ANTIBIOTICS AND POSSIBLE VASCULAR INTERVENTION. D/C PLAN CONTINUES TO BE HOME WITH NEW VNA vs STR. CM WILL CONTINUE TO FOLLOW FOR DISCHARGE NEEDS.
[2022-04-14 16:40] VITALS: BP 147/70; PULSE 98; RESP 15; TEMP 36.8; O2SAT 98
[2022-04-14 16:49] LABS: Glucose, Whole Blood 250 mg/dL (60-115)
[2022-04-14 19:58] LABS: Glucose, Whole Blood 276 mg/dL (60-115)
[2022-04-14 20:00] VITALS: BP 133/61; PULSE 87; RESP 15; TEMP 36.9; O2SAT 93
[2022-04-14] MEDS: oxyCODONE HCl Immed Release 5 MG TABLET PO (21:06)
[2022-04-14 23:45] VITALS: BP 123/66; PULSE 84; RESP 16; TEMP 36.9; O2SAT 96
[2022-04-15 03:57] VITALS: BP 134/63; PULSE 86; RESP 16; TEMP 36.4; O2SAT 94
[2022-04-15] MEDS: Omeprazole 20 MG CAPSULE.DR PO (05:46)
[2022-04-15 06:48] LABS: MANUAL DIFF FLAG NO
[2022-04-15 06:54] LABS: Basophils Percent Auto 0.2 % (0-2); Eosinophils Absolute Auto 0.2 X10*3/uL (0.0-0.4); Eosinophils Percent Auto 1.2 % (0-4); Hemoglobin 8.3 g/dl (14.0-18.0); Imm Gran Pct Auto 0.6 % (0.0-0.4); Lymphocytes Absolute Auto 1.4 X10*3/uL (1.2-4.9); Lymphocytes Percent Auto 8.8 % (20-40); Mean Corpuscular HGB Conc 30.7 g/dl (31.0-36.0); Mean Corpuscular Hemoglobin 25.3 pg (27.0-33.0); Mean Corpuscular Volume 82.3 fL (80.0-98.0); Mean Platelet Volume 9.9 fL (9.4-12.4); Monocytes Percent Auto 5.8 % (2-11); Neutrophils Absolute Auto 13.6 x10*3/uL (2.0-8.3); Neutrophils Percent Auto 83.4 % (45-73); Platelet Count 392 X10*3/uL (160-400); Red Blood Count 3.28 X10*6/uL (4.60-5.80); Red Cell Distribution Width 14.5 % (11.0-16.0); White Blood Count 16.3 X10*3/uL (4.8-10.8)
[2022-04-15 07:05] LABS: INTERNATIONAL NORM RATIO 1.1 (0.9-1.1); Prothrombin Time 12.2 SEC (10.0-13.1)
[2022-04-15 07:11] VITALS: BP 158/73; PULSE 90; RESP 18; TEMP 36.3; O2SAT 97
[2022-04-15 07:21] LABS: Alanine Aminotransferase 12 U/L (0-40); Albumin Level 2.8 g/dL (3.5-5.0); Alkaline Phosphatase 127 U/L (39-117); Anion Gap 17 (12-20); Aspartate Amino Transferase 15 U/L (5-37); Bilirubin Total < 0.2 mg/dL (0.0-1.0); Blood Urea Nitrogen 57 mg/dL (9-16); Calcium 8.3 mg/dL (8.4-10.2); Carbon Dioxide 26 mmol/L (22-29); Chloride 101 mmol/L (96-108); Estimated Glomerular Filt Rate 15; Glucose Fasting 200 mg/dL (60-99); Potassium 5.6 mmol/L (3.3-5.1); Sodium 138 mmol/L (135-145); Total Protein 6.9 g/dL (6.5-8.0)
[2022-04-15 07:30] LABS: Glucose, Whole Blood 186 mg/dL (60-115)
[2022-04-15] MEDS: Insulin Lispro 100 UNIT/ML 3 ML VIAL SUBCUT ×3 (08:17→17:01)
[2022-04-15] MEDS: Insulin Glargine,Hum.rec.anlog 100 UNIT/ML 10 ML VIAL 30 UNIT SUBCUT (08:17)
[2022-04-15] MEDS: 0.9 % Sodium Chloride Flush 3 ML SYRINGE IVFLUSH ×3 (08:17→19:47)
[2022-04-15] MEDS: methADONE HCl 20 MG/2 ML ORAL.CONC 65 MG PO (08:17)
[2022-04-15] MEDS: Atorvastatin Calcium 10 MG TABLET PO (08:18)
[2022-04-15] MEDS: Tamsulosin HCL 0.4 MG CAPSULE PO (08:18)
[2022-04-15] MEDS: oxyCODONE HCl Immed Release 5 MG TABLET PO (08:18)
[2022-04-15] MEDS: carvediloL 12.5 MG TABLET PO (08:18)
[2022-04-15] MEDS: NIFEdipine ER 30 MG TAB.ER.24 60 MG PO (08:18)
[2022-04-15] MEDS: ondansetron HCL 4 MG/2 ML VIAL IVPUSH ×2 (08:23→19:47)
[2022-04-15 09:02] LABS: HBS Num1 9.74 mIU/mL (0-7.99); HBc Num1 0.12 S/CO (0.00-0.79); HBsAGNum1 0.21 S/CO (0.00-0.99); Hepatitis B Core Antibody Nonreactive (Nonreactive); Hepatitis B Surface Antigen Negative (Negative); ~HepC Num1 0.17 S/CO (0.00-0.79); ~Hepatitis C Antibody Nonreactive (Nonreactive)
[2022-04-15 10:31] LABS: HBS Num2 7.84 mIU/mL (0-7.99); HBS Num3 8.05 mIU/mL (0-7.99); ~Hepatitis B Surface Antibody GRAYZONE (Nonreactive)
--- NOTE | 2022-04-15 10:46 | P.PNNP_ITS ---
Subjective Subjective Date of Service: 04/15/22 Interval history: Seen AM. Pending renal biopsy. Investigations in progress. NO uremic symptoms Physical Exam Vital Signs: Vital Signs: Last Vital Signs Temp 97.4 F 04/15/22 07:11 Pulse 90 04/15/22 07:11 Resp 18 04/15/22 07:11 BP 158/73 H 04/15/22 07:11 Pulse Ox 97 04/15/22 07:11 O2 Del Method 04/15/22 07:11 O2 Flow Rate 8 04/04/22 22:25 BMI result Body Mass Index 35.2 Const: General: no acute distress Orientation/consciousness: patient oriented x3 Eyes: EOM: EOMs intact bilaterally Neck: Neck: Yes supple Resp: Auscultation: diminished lung sounds Cardio: Rate: regular rate GI: Palpation (GI): Soft to palpation Neuro: General: patient oriented x3 Objective Data Labs CBC & Chem 7: 04/15/22 06:34 04/15/22 06:34 Labs: Laboratory Results - last 24 hr 04/14/22 04/14/22 04/14/22 11:21 16:44 19:52 WBC RBC Hgb Hct MCV MCH MCHC RDW Plt Count MPV Immature Gran % (Auto) Neut % (Auto) Lymph % (Auto) [place] % (Auto) Eos % (Auto) Baso % (Auto) Lymph # (Auto) [place] # (Auto) Eos # (Auto) Baso # (Auto) Abs Immat Gran (auto) Absolute Neuts (auto) Absolute Nucleated RBC Nucleated RBC % (auto) PT INR Sodium Potassium Chloride Carbon Dioxide Anion Gap BUN Creatinine Estim Creat Clear Calc Estimated GFR POC Glucose 236 H 250 H 276 H Fasting Glucose Calcium Total Bilirubin AST ALT Alkaline Phosphatase Total Protein Albumin Hep Bs Antigen Hep Bs Antibody Hep B Core Total Ab Hepatitis C Ab (EIA) 04/15/22 04/15/22 04/15/22 06:34 06:34 06:34 WBC 16.3 H RBC 3.28 L Hgb 8.3 L Hct 27.0 L MCV 82.3 MCH 25.3 L MCHC 30.7 L RDW 14.5 Plt Count 392 MPV 9.9 Immature Gran % (Auto) 0.6 H Neut % (Auto) 83.4 H Lymph % (Auto) 8.8 L [place] % (Auto) 5.8 Eos % (Auto) 1.2 Baso % (Auto) 0.2 Lymph # (Auto) 1.4 [place] # (Auto) 1.0 Eos # (Auto) 0.2 Baso # (Auto) 0.0 Abs Immat Gran (auto) 0.10 H Absolute Neuts (auto) 13.6 H Absolute Nucleated RBC 0.000 Nucleated RBC % (auto) 0.0 PT 12.2 INR 1.1 Sodium 138 Potassium 5.6 H Chloride 101 Carbon Dioxide 26 Anion Gap 17 BUN 57 H Creatinine 4.26 H* Estim Creat Clear Calc 22.0 Estimated GFR 15 POC Glucose Fasting Glucose 200 H Calcium 8.3 L Total Bilirubin < 0.2 AST 15 ALT 12 Alkaline Phosphatase 127 H Total Protein 6.9 Albumin 2.8 L Hep Bs Antigen Hep Bs Antibody Hep B Core Total Ab Hepatitis C Ab (EIA) 04/15/22 04/15/22 06:35 07:16 WBC RBC Hgb Hct MCV MCH MCHC RDW Plt Count MPV Immature Gran % (Auto) Neut % (Auto) Lymph % (Auto) [place] % (Auto) Eos % (Auto) Baso % (Auto) Lymph # (Auto) [place] # (Auto) Eos # (Auto) Baso # (Auto) Abs Immat Gran (auto) Absolute Neuts (auto) Absolute Nucleated RBC Nucleated RBC % (auto) PT INR Sodium Potassium Chloride Carbon Dioxide Anion Gap BUN Creatinine Estim Creat Clear Calc Estimated GFR POC Glucose 186 H Fasting Glucose Calcium Total Bilirubin AST ALT Alkaline Phosphatase Total Protein Albumin Hep Bs Antigen Negative Hep Bs Antibody GRAYZONE Hep B Core Total Ab Nonreactive Hepatitis C Ab (EIA) Nonreactive Microbiology Microbiology Results: Microbiology 04/04/22 18:15 Blood - Venous Blood Culture - Final No growth after 5 days. 04/04/22 17:53 Blood - Venous Blood Culture - Final No growth after 5 days. 04/04/22 Unknown Foot Left Gram Stain - Final 04/04/22 Unknown Foot Left Routine Culture - Final Strep agalactiae (Grp B) Methicillin Res Staph Aureus Procedures Date of Service Date of Service: 04/15/22 Assessment & Plan Assessment and plan (1) Acute kidney injury: Status: Acute Assessment and Plan: Acute Kidney Injury likely due to tubular injury (multifactorial- septic ATN & had been receiving Vanco) No significant RBC in the urine to suspect GN Was on ACEI at home which is on hold Had a Castano catheter with good urine output No indication for renal replacement today BP needs better control- Increase Carvedilol to 25 mg bid if BP remains high Renal biopsy ordered; pending Rest of the work up in progress Labs AM. Shall closely follow up Time Spent With Patient Time: Total time spent is greater than 50% in coordination of care (as documented) at patient's floor/unit and/or counseling patient: Progress Note: Quality Stroke Does the patient have a stroke diagnosis?: No
[2022-04-15 11:07] VITALS: BP 151/72; PULSE 82; RESP 18; TEMP 36.6; O2SAT 98
[2022-04-15 11:36] LABS: Glucose, Whole Blood 224 mg/dL (60-115)
--- NOTE | 2022-04-15 11:49 | HO.PM.IMPN ---
Subjective Subjective Date of Service: 04/15/22 Interval History: No acute issues overnight. Intermittent foot pain persists Review of Systems denies chest pain Denies shortness of breath Denies nausea vomiting diarrhea Denies fever chills Physical Exam Vital Signs: Vital Signs: Last Vital Signs Temp 97.9 F 04/15/22 11:07 Pulse 82 04/15/22 11:07 Resp 18 04/15/22 11:07 BP 151/72 H 04/15/22 11:07 Pulse Ox 98 04/15/22 11:07 O2 Del Method 04/15/22 11:07 O2 Flow Rate 8 04/04/22 22:25 BMI result Body Mass Index 35.2 Const: Other: and no acute distress Resp: Other: clear to auscultation bilaterally no rales rhonchi or wheezes Cardio: Other: no S4; positive S1-S2; no S3 murmurs rubs or gallops GI: Other: soft nontender nondistended with normoactive bowel sounds Extrem: Other: mild left lower extremities edema; wrapped in Jeramie wrap Objective Data Active Medications Acetaminophen (Acetaminophen 325 Mg Tablet) 650 mg PO Q6H PRN PRN Reason: Pain, Moderate (Pain Scale 4-6 Last Admin: 04/14/22 03:04 Dose: 650 mg Documented By: GAMALIEL Atorvastatin Calcium (Atorvastatin Calcium 10 Mg Tablet) 10 mg PO DAILY COUNTS INCLUDE 234 BEDS AT THE [facility] Last Admin: 04/15/22 08:18 Dose: 10 mg Documented By: SACHIN Carvedilol (Carvedilol 12.5 Mg Tablet) 12.5 mg PO BID COUNTS INCLUDE 234 BEDS AT THE [facility]; Protocol Last Admin: 04/15/22 08:18 Dose: 12.5 mg Documented By: SACHIN Dextrose (Dextrose 50 % 25 Gm/50 Ml Syringe) 25 gm IVPUSH Q15M PRN; Protocol PRN Reason: per Hypoglycemia Standing Ord. Dextrose (Dextrose 50 % 25 Gm/50 Ml Syringe) 25 gm IVPUSH Q15M PRN; Protocol PRN Reason: per Hypoglycemia Standing Ord. Glucose (Glucose Gel 15 Gm Gel..Gram.) 15 gm PO Q15M PRN; Protocol PRN Reason: per Hypoglycemia Standing Ord. Glucose (Glucose Gel 15 Gm Gel..Gram.) 15 gm PO Q15M PRN; Protocol PRN Reason: per Hypoglycemia Standing Ord. Hydroxyzine HCl (Hydroxyzine Hcl 25 Mg Tablet) 25 mg PO TID PRN PRN Reason: itching Daptomycin 700 mg/ Sodium (Chloride) 64 mls @ 128 mls/hr IV Q48H COUNTS INCLUDE 234 BEDS AT THE [facility] Stop: 06/28/22 15:29 Last Infusion: 04/13/22 15:52 Dose: 0 mls/hr Documented By: SACHIN Insulin Glargine (Insulin Glargine,Hum.Rec.Anlog 100 Unit/Ml 10 Ml Vial) 30 unit SUBCUT DAILY COUNTS INCLUDE 234 BEDS AT THE [facility] Last Admin: 04/15/22 08:17 Dose: 30 unit Documented By: SACHIN Insulin Human Lispro (Insulin Lispro 100 Unit/Ml 3 Ml Vial) 0 unit SUBCUT QIDACHS COUNTS INCLUDE 234 BEDS AT THE [facility]; Protocol Last Admin: 04/15/22 08:17 Dose: 4 unit Documented By: SACHIN Methadone HCl (Methadone Hcl 20 Mg/2 Ml Oral.Conc) 65 mg PO DAILY COUNTS INCLUDE 234 BEDS AT THE [facility] Last Admin: 04/15/22 08:17 Dose: 65 mg Documented By: SACHIN Nifedipine (Nifedipine Er 30 Mg Tab.Er.24) 60 mg PO DAILY COUNTS INCLUDE 234 BEDS AT THE [facility]; Protocol Last Admin: 04/15/22 08:18 Dose: 60 mg Documented By: SACHIN Omeprazole (Omeprazole 20 Mg Capsule.) 20 mg PO DAILY@0630 COUNTS INCLUDE 234 BEDS AT THE [facility] Last Admin: 04/15/22 05:46 Dose: 20 mg Documented By: ODRISM Ondansetron HCl (Ondansetron Hcl 4 Mg/2 Ml Vial) 4 mg IVPUSH Q8H PRN PRN Reason: Nausea and Vomiting Last Admin: 04/15/22 08:23 Dose: 4 mg Documented By: SACHIN Pharmacy Consult (Consult Rx Perform Med Rec) 1 each MISCELLANE ONCE PRN PRN Reason: Consult order Sodium Chloride (0.9 % Sodium Chloride Flush 3 Ml Syringe) 3 ml IVFLUSH QSHIFT COUNTS INCLUDE 234 BEDS AT THE [facility] Last Admin: 04/15/22 08:17 Dose: 3 ml Documented By: SACHIN Tamsulosin HCl (Tamsulosin Hcl 0.4 Mg Capsule) 0.4 mg PO DAILY COUNTS INCLUDE 234 BEDS AT THE [facility] Last Admin: 04/15/22 08:18 Dose: 0.4 mg Documented By: SACHIN Labs CBC & Chem 7: 04/15/22 06:34 04/15/22 06:34 Labs: Laboratory Results - last 24 hr 04/14/22 04/14/22 04/15/22 16:44 19:52 06:34 MCV 82.3 MCH 25.3 L MCHC 30.7 L RDW 14.5 Plt Count 392 MPV 9.9 Immature Gran % (Auto) 0.6 H Neut % (Auto) 83.4 H Lymph % (Auto) 8.8 L [place] % (Auto) 5.8 Eos % (Auto) 1.2 Baso % (Auto) 0.2 Lymph # (Auto) 1.4 [place] # (Auto) 1.0 Eos # (Auto) 0.2 Baso # (Auto) 0.0 Abs Immat Gran (auto) 0.10 H Absolute Neuts (auto) 13.6 H Absolute Nucleated RBC 0.000 Nucleated RBC % (auto) 0.0 PT INR Anion Gap Estim Creat Clear Calc Estimated GFR POC Glucose 250 H 276 H Fasting Glucose Calcium Total Bilirubin AST ALT Alkaline Phosphatase Total Protein Albumin Hep Bs Antigen Hep Bs Antibody Hep B Core Total Ab Hepatitis C Ab (EIA) 04/15/22 04/15/22 04/15/22 06:34 06:34 06:35 MCV MCH MCHC RDW Plt Count MPV Immature Gran % (Auto) Neut % (Auto) Lymph % (Auto) [place] % (Auto) Eos % (Auto) Baso % (Auto) Lymph # (Auto) [place] # (Auto) Eos # (Auto) Baso # (Auto) Abs Immat Gran (auto) Absolute Neuts (auto) Absolute Nucleated RBC Nucleated RBC % (auto) PT 12.2 INR 1.1 Anion Gap 17 Estim Creat Clear Calc 22.0 Estimated GFR 15 POC Glucose Fasting Glucose 200 H Calcium 8.3 L Total Bilirubin < 0.2 AST 15 ALT 12 Alkaline Phosphatase 127 H Total Protein 6.9 Albumin 2.8 L Hep Bs Antigen Negative Hep Bs Antibody GRAYZONE Hep B Core Total Ab Nonreactive Hepatitis C Ab (EIA) Nonreactive 04/15/22 04/15/22 07:16 11:10 MCV MCH MCHC RDW Plt Count MPV Immature Gran % (Auto) Neut % (Auto) Lymph % (Auto) [place] % (Auto) Eos % (Auto) Baso % (Auto) Lymph # (Auto) [place] # (Auto) Eos # (Auto) Baso # (Auto) Abs Immat Gran (auto) Absolute Neuts (auto) Absolute Nucleated RBC Nucleated RBC % (auto) PT INR Anion Gap Estim Creat Clear Calc Estimated GFR POC Glucose 186 H 224 H Fasting Glucose Calcium Total Bilirubin AST ALT Alkaline Phosphatase Total Protein Albumin Hep Bs Antigen Hep Bs Antibody Hep B Core Total Ab Hepatitis C Ab (EIA) Assessment and Plan (1) Diabetic infection of left foot: Status: Acute (2) Acute kidney injury: Status: Acute (3) Osteomyelitis: Status: Acute (4) Diabetes type 2, controlled: Status: Acute Plan 56 year old male with a PMH of insulin dependant DM who is admitted under to the general surgical services for diabetic foot infection. Medical consult requested for mgmt of DM + med mgmt. 1. 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 ID recommends 6 weeks total - per Renal; midline sufficient for now -vascular imaging as per Dr. Meyer 2. AMY, -creatinine slowly rising. -Biopsy in a.m.. Lovenox DC'd -follow renals/divalents l 3. Acute anemia - counts stabilized - continue to follow 4. DM II - increase am Lantus to 40units - lispro correctional scale - adjust therapies as indicated 5. HTN - poorly controlled - add Coreg 25 b.i.d. - adjust as indicated 6. Chronic opiate dependence -continue methadone DVT prophylaxis with Lovenox Code status full code Disposition patient will need continued inpatient hospitalization due to acute renal failure, left foot infection requiring IV antibiotic and possible vascular intervention. Quality Stroke Does the patient have a stroke diagnosis?: No VTE Prior VTE?: No VTE Risk Level:: Surgical - moderate VTE Device Contraindication: N/A - Device Ordered VTE Drug Contraindication: N/A - Med Ordered
[2022-04-15] MEDS: Acetaminophen 325 MG TABLET 650 MG PO (11:59)
[2022-04-15] MEDS: DAPTOmycin 700 MG in 0.9 % Sodium Chloride 50 ML 128 MG IV (15:32)
[2022-04-15 16:00] VITALS: BP 159/73; PULSE 87; RESP 14; TEMP 36.8; O2SAT 97
[2022-04-15 16:06] LABS: Glucose, Whole Blood 180 mg/dL (60-115)
[2022-04-15 19:50] LABS: Glucose, Whole Blood 105 mg/dL (60-115)
[2022-04-15 19:59] VITALS: BP 153/79; PULSE 94; RESP 18; TEMP 36.8; O2SAT 98
[2022-04-15] MEDS: carvediloL 25 MG TABLET PO (20:35)
[2022-04-16] VITALS (7 sets, daily range): BP systolic 129–164; BP diastolic 60–90; PULSE 80–86; RESP 16–18; TEMP 35.5–36.6; O2SAT 96–98
[2022-04-16] MEDS: oxyCODONE HCl Immed Release 5 MG TABLET PO (04:04)
[2022-04-16] MEDS: ondansetron HCL 4 MG/2 ML VIAL IVPUSH ×2 (04:10→16:49)
[2022-04-16] MEDS: Omeprazole 20 MG CAPSULE.DR PO (05:31)
[2022-04-16 06:20] LABS: MANUAL DIFF FLAG NO
[2022-04-16 06:37] LABS: Basophils Absolute Auto 0.1 X10*3/uL (0.0-0.2); Basophils Percent Auto 0.3 % (0-2); Eosinophils Absolute Auto 0.1 X10*3/uL (0.0-0.4); Eosinophils Percent Auto 0.8 % (0-4); Hematocrit 27.8 % (42.0-52.0); Hemoglobin 8.7 g/dl (14.0-18.0); Imm Gran Abs Auto 0.12 X10*3/uL (0.00-0.03); Imm Gran Pct Auto 0.7 % (0.0-0.4); Lymphocytes Absolute Auto 1.6 X10*3/uL (1.2-4.9); Lymphocytes Percent Auto 9.9 % (20-40); Mean Corpuscular HGB Conc 31.3 g/dl (31.0-36.0); Mean Corpuscular Hemoglobin 25.9 pg (27.0-33.0); Mean Corpuscular Volume 82.7 fL (80.0-98.0); Mean Platelet Volume 10.3 fL (9.4-12.4); Monocytes Absolute Auto 0.8 X10*3/uL (0.1-1.2); Monocytes Percent Auto 5.1 % (2-11); Neutrophils Absolute Auto 13.4 x10*3/uL (2.0-8.3); Neutrophils Percent Auto 83.2 % (45-73); Platelet Count 399 X10*3/uL (160-400); Red Blood Count 3.36 X10*6/uL (4.60-5.80); Red Cell Distribution Width 14.6 % (11.0-16.0); White Blood Count 16.1 X10*3/uL (4.8-10.8)
[2022-04-16 07:21] LABS: Alanine Aminotransferase 13 U/L (0-40); Albumin Level 2.9 g/dL (3.5-5.0); Alkaline Phosphatase 120 U/L (39-117); Anion Gap 17 (12-20); Aspartate Amino Transferase 14 U/L (5-37); Bilirubin Total 0.2 mg/dL (0.0-1.0); Blood Urea Nitrogen 54 mg/dL (9-16); Calcium 8.6 mg/dL (8.4-10.2); Carbon Dioxide 28 mmol/L (22-29); Chloride 102 mmol/L (96-108); Estimated Glomerular Filt Rate 15; Glucose Fasting 90 mg/dL (60-99); Sodium 141 mmol/L (135-145); Total Protein 7.1 g/dL (6.5-8.0)
[2022-04-16 07:29] LABS: Glucose, Whole Blood 97 mg/dL (60-115)
[2022-04-16 07:32] LABS: Hepatitis A Antibody IgM 0.31 Index (0-0.79); ~Hepatitis A Antibody IgM Nonreactive (Nonreactive)
[2022-04-16] MEDS: carvediloL 25 MG TABLET PO ×2 (09:08→20:09)
[2022-04-16] MEDS: Sodium Zirconium Cyclosilicate 10 GM POWD.PACK PO (09:08)
[2022-04-16] MEDS: methADONE HCl 20 MG/2 ML ORAL.CONC 65 MG PO (09:08)
[2022-04-16] MEDS: Tamsulosin HCL 0.4 MG CAPSULE PO (09:08)
[2022-04-16] MEDS: NIFEdipine ER 30 MG TAB.ER.24 60 MG PO (09:08)
[2022-04-16] MEDS: Atorvastatin Calcium 10 MG TABLET PO (09:08)
[2022-04-16] MEDS: 0.9 % Sodium Chloride Flush 3 ML SYRINGE IVFLUSH ×3 (09:09→20:11)
[2022-04-16 11:31] LABS: Glucose, Whole Blood 136 mg/dL (60-115)
[2022-04-16 12:17] LABS: Complement C3 175 mg/dL (82-185)
--- NOTE | 2022-04-16 13:39 | HO.PM.IMPN ---
Subjective Subjective Date of Service: 04/16/22 Interval History: No acute issues overnight. Refused midline and renal biopsy Review of Systems denies chest pain Denies shortness of breath Denies nausea vomiting diarrhea Denies fever chills Physical Exam Vital Signs: Vital Signs: Last Vital Signs Temp 97.8 F 04/16/22 11:10 Pulse 80 04/16/22 11:10 Resp 18 04/16/22 11:10 BP 145/78 H 04/16/22 11:10 Pulse Ox 97 04/16/22 11:10 O2 Del Method 04/16/22 11:10 O2 Flow Rate 8 04/04/22 22:25 BMI result Body Mass Index 35.2 Const: Other: and no acute distress Resp: Other: clear to auscultation bilaterally no rales rhonchi or wheezes Cardio: Other: no S4; positive S1-S2; no S3 murmurs rubs or gallops GI: Other: soft nontender nondistended with normoactive bowel sounds Extrem: Other: mild left lower extremities edema; wrapped in Jeramie wrap Objective Data Active Medications Acetaminophen (Acetaminophen 325 Mg Tablet) 650 mg PO Q6H PRN PRN Reason: Pain, Moderate (Pain Scale 4-6 Last Admin: 04/15/22 11:59 Dose: 650 mg Documented By: SACHIN Atorvastatin Calcium (Atorvastatin Calcium 10 Mg Tablet) 10 mg PO DAILY [facility] Last Admin: 04/16/22 09:08 Dose: 10 mg Documented By: LAYTON Carvedilol (Carvedilol 25 Mg Tablet) 25 mg PO BID [facility]; Protocol Last Admin: 04/16/22 09:08 Dose: 25 mg Documented By: LAYTON Dextrose (Dextrose 50 % 25 Gm/50 Ml Syringe) 25 gm IVPUSH Q15M PRN; Protocol PRN Reason: per Hypoglycemia Standing Ord. Dextrose (Dextrose 50 % 25 Gm/50 Ml Syringe) 25 gm IVPUSH Q15M PRN; Protocol PRN Reason: per Hypoglycemia Standing Ord. Glucose (Glucose Gel 15 Gm Gel..Gram.) 15 gm PO Q15M PRN; Protocol PRN Reason: per Hypoglycemia Standing Ord. Glucose (Glucose Gel 15 Gm Gel..Gram.) 15 gm PO Q15M PRN; Protocol PRN Reason: per Hypoglycemia Standing Ord. Hydroxyzine HCl (Hydroxyzine Hcl 25 Mg Tablet) 25 mg PO TID PRN PRN Reason: itching Daptomycin 700 mg/ Sodium (Chloride) 64 mls @ 128 mls/hr IV Q48H [facility] Stop: 06/28/22 15:29 Last Infusion: 04/15/22 17:02 Dose: 0 mls/hr Documented By: SACHIN Insulin Glargine (Insulin Glargine,Hum.Rec.Anlog 100 Unit/Ml 10 Ml Vial) 40 unit SUBCUT DAILY [facility] Last Admin: 04/16/22 09:13 Dose: Not Given Documented By: LAYTON Non-Admin Reason: Physician Held Med Comments: poc 97 Insulin Human Lispro (Insulin Lispro 100 Unit/Ml 3 Ml Vial) 0 unit SUBCUT QIDACHS [facility]; Protocol Last Admin: 04/16/22 11:34 Dose: Not Given Documented By: LAYTON Non-Admin Reason: No Insulin Coverage Methadone HCl (Methadone Hcl 20 Mg/2 Ml Oral.Conc) 65 mg PO DAILY [facility] Last Admin: 04/16/22 09:08 Dose: 65 mg Documented By: LAYTON Nifedipine (Nifedipine Er 30 Mg Tab.Er.24) 60 mg PO DAILY [facility]; Protocol Last Admin: 04/16/22 09:08 Dose: 60 mg Documented By: LAYTON Omeprazole (Omeprazole 20 Mg Capsule.Dr) 20 mg PO DAILY@0630 [facility] Last Admin: 04/16/22 05:31 Dose: 20 mg Documented By: EDIL Ondansetron HCl (Ondansetron Hcl 4 Mg/2 Ml Vial) 4 mg IVPUSH Q8H PRN PRN Reason: Nausea and Vomiting Last Admin: 04/16/22 04:10 Dose: 4 mg Documented By: EDIL Pharmacy Consult (Consult Rx Perform Med Rec) 1 each MISCELLANE ONCE PRN PRN Reason: Consult order Sodium Chloride (0.9 % Sodium Chloride Flush 3 Ml Syringe) 3 ml IVFLUSH QSHIFT [facility] Last Admin: 04/16/22 09:09 Dose: 3 ml Documented By: LAYTON Tamsulosin HCl (Tamsulosin Hcl 0.4 Mg Capsule) 0.4 mg PO DAILY [facility] Last Admin: 04/16/22 09:08 Dose: 0.4 mg Documented By: LAYTON Labs CBC & Chem 7: 04/16/22 05:28 04/16/22 05:28 Labs: Laboratory Results - last 24 hr 04/15/22 04/15/22 04/15/22 06:34 06:35 15:59 MCV MCH MCHC RDW Plt Count MPV Immature Gran % (Auto) Neut % (Auto) Lymph % (Auto) [place] % (Auto) Eos % (Auto) Baso % (Auto) Lymph # (Auto) [place] # (Auto) Eos # (Auto) Baso # (Auto) Abs Immat Gran (auto) Absolute Neuts (auto) Absolute Nucleated RBC Nucleated RBC % (auto) Anion Gap Estim Creat Clear Calc Estimated GFR POC Glucose 180 H Fasting Glucose Calcium Total Bilirubin AST ALT Alkaline Phosphatase Total Protein Albumin Complement C3 175 Complement C4 50 Hepatitis A IgM Ab Nonreactive 04/15/22 04/16/22 04/16/22 19:26 05:28 05:28 MCV 82.7 MCH 25.9 L MCHC 31.3 RDW 14.6 Plt Count 399 MPV 10.3 Immature Gran % (Auto) 0.7 H Neut % (Auto) 83.2 H Lymph % (Auto) 9.9 L [place] % (Auto) 5.1 Eos % (Auto) 0.8 Baso % (Auto) 0.3 Lymph # (Auto) 1.6 [place] # (Auto) 0.8 Eos # (Auto) 0.1 Baso # (Auto) 0.1 Abs Immat Gran (auto) 0.12 H Absolute Neuts (auto) 13.4 H Absolute Nucleated RBC 0.000 Nucleated RBC % (auto) 0.0 Anion Gap 17 Estim Creat Clear Calc 23.0 Estimated GFR 15 POC Glucose 105 Fasting Glucose 90 D Calcium 8.6 Total Bilirubin 0.2 AST 14 ALT 13 Alkaline Phosphatase 120 H Total Protein 7.1 Albumin 2.9 L Complement C3 Complement C4 Hepatitis A IgM Ab 04/16/22 04/16/22 06:56 11:13 MCV MCH MCHC RDW Plt Count MPV Immature Gran % (Auto) Neut % (Auto) Lymph % (Auto) [place] % (Auto) Eos % (Auto) Baso % (Auto) Lymph # (Auto) [place] # (Auto) Eos # (Auto) Baso # (Auto) Abs Immat Gran (auto) Absolute Neuts (auto) Absolute Nucleated RBC Nucleated RBC % (auto) Anion Gap Estim Creat Clear Calc Estimated GFR POC Glucose 97 136 H Fasting Glucose Calcium Total Bilirubin AST ALT Alkaline Phosphatase Total Protein Albumin Complement C3 Complement C4 Hepatitis A IgM Ab Assessment and Plan (1) Diabetic infection of left foot: Status: Acute (2) Acute kidney injury: Status: Acute (3) Osteomyelitis: Status: Acute (4) Diabetes type 2, controlled: Status: Acute Plan 56 year old male with a PMH of insulin dependant DM who is admitted under to the general surgical services for diabetic foot infection. Medical consult requested for mgmt of DM + med mgmt. 1. 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 ID recommends 6 weeks total - will hold on line placement pending renal input 2. AMY, -creatinine slowly rising. -refused biopsy will restart heparin -follow renals/divalents l 3. Acute anemia - counts stabilized - continue to follow 4. DM II - increase am Lantus to 40units - lispro correctional scale - adjust therapies as indicated 5. HTN - poorly controlled - add Coreg 25 b.i.d. - adjust as indicated 6. Chronic opiate dependence -continue methadone DVT prophylaxis with Lovenox Code status full code Disposition patient will need continued inpatient hospitalization due to acute renal failure, left foot infection requiring IV antibiotic and possible vascular intervention. Quality Stroke Does the patient have a stroke diagnosis?: No VTE Prior VTE?: No VTE Risk Level:: Surgical - moderate VTE Device Contraindication: N/A - Device Ordered VTE Drug Contraindication: N/A - Med Ordered
--- NOTE | 2022-04-16 13:47 | PC.NURSE ---
Pt initially agreed to have midline placed. However, when transport came to bring patient down to IR, patient refused to go down. Stating it is his time to eat and w need to work around his schedule. Dr. Hood made aware. IR aware.
--- NOTE | 2022-04-16 15:51 | P.PNNP_ITS ---
Subjective Subjective Date of Service: 04/16/22 Interval history: No acute issues overnight. Apparently refused renal biopsy Physical Exam Vital Signs: Vital Signs: Last Vital Signs Temp 96 F L 04/16/22 14:54 Pulse 82 04/16/22 14:54 Resp 18 04/16/22 14:54 BP 141/71 H 04/16/22 14:54 Pulse Ox 96 04/16/22 14:54 O2 Del Method 04/16/22 14:54 O2 Flow Rate 8 04/04/22 22:25 BMI result Body Mass Index 35.2 Const: Other: and no acute distress General: cooperative, healthy appearing, comfortable, no acute distress, acute distress mild and tired appearing Nutritional Appearance: well nourished Orientation/consciousness: oriented to person, oriented to place, oriented to time and patient oriented x3 Limitations: no limitations and ambulation with walker HEENT: Head: Yes normal to inspection, Yes normocephalic and Yes atraumatic Ears: hearing grossly normal bilaterally Face and sinus: Yes normal facial exam Mouth: Normal oral and palatal mucosa present and moist mucous membranes Teeth and gingiva: dentition normal Eyes: General: appearance normal, both eyes and all related structures Pupils: Equal, round and reactive pupils present EOM: EOMs intact bilaterally Neck: Neck: Yes normal visual inspection, Yes full ROM, Yes trachea midline and Yes supple Carotids: no bruits Chest: Chest palpation & inspection: normal inspection of the chest Resp: Other: clear to auscultation bilaterally no rales rhonchi or wheezes Effort & Inspection: normal respiratory effort, able to speak in complete sentences, no audible wheezes, no cough and no respiratory distress Auscultation: clear to auscultation bilaterally, no crackles, no rales, no rhonchi, no wheezes and diminished lung sounds Cardio: Other: no S4; positive S1-S2; no S3 murmurs rubs or gallops Rate: regular rate Rhythm: regular rhythm Heart sounds: S1 normal heart sound present and S2 normal heart sound present Bruits: no carotid bruits Peripheral pulses: dorsalis pedis present ( Bilateral DP signals) GI: Other: soft nontender -somewhat distended, with normoactive bowel sounds Inspection: Yes normal to inspection Palpation (GI): Soft to palpation and nontender : General: Yes no CVA tenderness Back/Spine/Pelvis: Back: no CVA tenderness Cervical Spine: normal cervical lordosis Thoracic/Lumbar Spine: thoracic and lumbar spine normal to inspe ction Skin: Other: Warm, dry, no rash General skin exam: no rashes or lesions noted Wounds: no wounds and wounds noted ( Dressing clean dry intact) Hair: normal Neuro: General: oriented to person, oriented to place, oriented to time, patient oriented x3, tone normal, moves all extremities and CN's II-XI intact bilaterally Cranial nerves: Yes CN's II-XII intact bilaterally, Yes Equal, round and reactive pupils present and Yes Normal hearing present Cognition (Neuro): normal cognition Motor exam (neuro): 5/5 motor strength present throughout Extrem: Other: 2 plus left lower extremities edema; wrapped in Jeramie wrap General: Yes normal to inspection, Yes full ROM, Yes capillary refill normal, Yes no clubbing, cyanosis or edema, No clubbing, No cyanosis and No edema Psych: Appearance: grossly normal and well kempt Mental Status: mental status grossly normal Speech and movement: Normal speech and movement present Affect: normal affect Attitude: cooperative Thought process: Normal thought process present Objective Data Labs CBC & Chem 7: 04/16/22 05:28 04/16/22 05:28 Labs: Laboratory Results - last 24 hr 04/15/22 04/15/22 04/15/22 06:34 06:35 15:59 WBC RBC Hgb Hct MCV MCH MCHC RDW Plt Count MPV Immature Gran % (Auto) Neut % (Auto) Lymph % (Auto) [place] % (Auto) Eos % (Auto) Baso % (Auto) Lymph # (Auto) [place] # (Auto) Eos # (Auto) Baso # (Auto) Abs Immat Gran (auto) Absolute Neuts (auto) Absolute Nucleated RBC Nucleated RBC % (auto) Sodium Potassium Chloride Carbon Dioxide Anion Gap BUN Creatinine Estim Creat Clear Calc Estimated GFR POC Glucose 180 H Fasting Glucose Calcium Total Bilirubin AST ALT Alkaline Phosphatase Total Protein Albumin Complement C3 175 Complement C4 50 Hepatitis A IgM Ab Nonreactive 04/15/22 04/16/22 04/16/22 19:26 05:28 05:28 WBC 16.1 H RBC 3.36 L Hgb 8.7 L Hct 27.8 L MCV 82.7 MCH 25.9 L MCHC 31.3 RDW 14.6 Plt Count 399 MPV 10.3 Immature Gran % (Auto) 0.7 H Neut % (Auto) 83.2 H Lymph % (Auto) 9.9 L [place] % (Auto) 5.1 Eos % (Auto) 0.8 Baso % (Auto) 0.3 Lymph # (Auto) 1.6 [place] # (Auto) 0.8 Eos # (Auto) 0.1 Baso # (Auto) 0.1 Abs Immat Gran (auto) 0.12 H Absolute Neuts (auto) 13.4 H Absolute Nucleated RBC 0.000 Nucleated RBC % (auto) 0.0 Sodium 141 Potassium 6.0 H* Chloride 102 Carbon Dioxide 28 Anion Gap 17 BUN 54 H Creatinine 4.08 H* Estim Creat Clear Calc 23.0 Estimated GFR 15 POC Glucose 105 Fasting Glucose 90 D Calcium 8.6 Total Bilirubin 0.2 AST 14 ALT 13 Alkaline Phosphatase 120 H Total Protein 7.1 Albumin 2.9 L Complement C3 Complement C4 Hepatitis A IgM Ab 04/16/22 04/16/22 06:56 11:13 WBC RBC Hgb Hct MCV MCH MCHC RDW Plt Count MPV Immature Gran % (Auto) Neut % (Auto) Lymph % (Auto) [place] % (Auto) Eos % (Auto) Baso % (Auto) Lymph # (Auto) [place] # (Auto) Eos # (Auto) Baso # (Auto) Abs Immat Gran (auto) Absolute Neuts (auto) Absolute Nucleated RBC Nucleated RBC % (auto) Sodium Potassium Chloride Carbon Dioxide Anion Gap BUN Creatinine Estim Creat Clear Calc Estimated GFR POC Glucose 97 136 H Fasting Glucose Calcium Total Bilirubin AST ALT Alkaline Phosphatase Total Protein Albumin Complement C3 Complement C4 Hepatitis A IgM Ab Microbiology Microbiology Results: Microbiology 04/04/22 18:15 Blood - Venous Blood Culture - Final No growth after 5 days. 04/04/22 17:53 Blood - Venous Blood Culture - Final No growth after 5 days. 04/04/22 Unknown Foot Left Gram Stain - Final 04/04/22 Unknown Foot Left Routine Culture - Final Strep agalactiae (Grp B) Methicillin Res Staph Aureus Procedures Date of Service Date of Service: 04/16/22 Assessment & Plan Assessment and plan (1) Diabetic infection of left foot: Status: Acute (2) Acute kidney injury: Status: Acute Assessment and Plan: Acute Kidney Injury likely due to tubular injury (multifactorial- septic ATN & had been receiving Vanco) No significant RBC in the urine to suspect GN; some pyuria: IgA dominant postinfectious GN possible-complements normal; await IgA level Was on ACEI at home which is on hold Had a Castano catheter with good urine output No indication for renal replacement today BP needs better control- Increase Carvedilol to 25 mg bid if BP remains high Renal biopsy ordered; pt refused (3) Osteomyelitis: Status: Acute (4) Hyperkalemia: Status: Acute Assessment and Plan: Potassium 6 today; would dose kayexalate or lokelma now and repeat in 6 hrs level Low K diet Plan 56 year old male with a PMH of insulin dependant DM who is admitted under to the general surgical services for diabetic foot infection. Medical consult requested for mgmt of DM + med mgmt. 1. 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 ID recommends 6 weeks total - will hold on line placement pending renal input 2. AMY, -creatinine slowly rising. -refused biopsy will restart heparin -follow renals/divalents l 3. Acute anemia - counts stabilized - continue to follow 4. DM II - increase am Lantus to 40units - lispro correctional scale - adjust therapies as indicated 5. HTN - poorly controlled - add Coreg 25 b.i.d. - adjust as indicated 6. Chronic opiate dependence -continue methadone DVT prophylaxis with Lovenox Code status full code Disposition patient will need continued inpatient hospitalization due to acute renal failure, left foot infection requiring IV antibiotic and possible vascular intervention. Time Spent With Patient Time: Total time spent is greater than 50% in coordination of care (as documented) at patient's floor/unit and/or counseling patient: Progress Note: Quality Stroke Does the patient have a stroke diagnosis?: No
[2022-04-16] MEDS: Heparin Sodium,Porcine 5,000 UNIT/ML VIAL 5000 UNIT SUBCUT (16:50)
[2022-04-16 16:55] LABS: Glucose, Whole Blood 138 mg/dL (60-115)
[2022-04-16 19:27] LABS: Glucose, Whole Blood 226 mg/dL (60-115)
[2022-04-16] MEDS: Insulin Lispro 100 UNIT/ML 3 ML VIAL SUBCUT (20:09)
[2022-04-16] MEDS: Acetaminophen 325 MG TABLET 650 MG PO (20:12)
[2022-04-17 03:11] VITALS: BP 132/65; PULSE 83; RESP 16; TEMP 36.4; O2SAT 96
[2022-04-17] MEDS: Heparin Sodium,Porcine 5,000 UNIT/ML VIAL 5000 UNIT SUBCUT ×2 (06:00→16:42)
[2022-04-17] MEDS: Omeprazole 20 MG CAPSULE.DR PO (06:00)
[2022-04-17] MEDS: Acetaminophen 325 MG TABLET 650 MG PO ×2 (06:01→20:40)
[2022-04-17 07:10] LABS: MANUAL DIFF FLAG NO
[2022-04-17 07:18] LABS: Basophils Absolute Auto 0.1 X10*3/uL (0.0-0.2); Basophils Percent Auto 0.4 % (0-2); Eosinophils Absolute Auto 0.2 X10*3/uL (0.0-0.4); Eosinophils Percent Auto 1.3 % (0-4); Hematocrit 24.6 % (42.0-52.0); Hemoglobin 7.6 g/dl (14.0-18.0); Imm Gran Abs Auto 0.05 X10*3/uL (0.00-0.03); Imm Gran Pct Auto 0.4 % (0.0-0.4); Lymphocytes Absolute Auto 1.6 X10*3/uL (1.2-4.9); Lymphocytes Percent Auto 13.7 % (20-40); Mean Corpuscular HGB Conc 30.9 g/dl (31.0-36.0); Mean Corpuscular Hemoglobin 25.5 pg (27.0-33.0); Mean Corpuscular Volume 82.6 fL (80.0-98.0); Mean Platelet Volume 10.4 fL (9.4-12.4); Monocytes Absolute Auto 0.9 X10*3/uL (0.1-1.2); Monocytes Percent Auto 7.3 % (2-11); Neutrophils Percent Auto 76.9 % (45-73); Platelet Count 338 X10*3/uL (160-400); Red Blood Count 2.98 X10*6/uL (4.60-5.80); Red Cell Distribution Width 14.4 % (11.0-16.0); White Blood Count 11.7 X10*3/uL (4.8-10.8)
[2022-04-17 07:29] LABS: Glucose, Whole Blood 239 mg/dL (60-115)
[2022-04-17 07:50] VITALS: BP 153/74; PULSE 79; RESP 15; TEMP 36.4; O2SAT 97
[2022-04-17] MEDS: 0.9 % Sodium Chloride Flush 3 ML SYRINGE IVFLUSH ×3 (07:55→22:45)
[2022-04-17] MEDS: Atorvastatin Calcium 10 MG TABLET PO (07:55)
[2022-04-17] MEDS: carvediloL 25 MG TABLET PO ×2 (07:55→20:40)
[2022-04-17] MEDS: NIFEdipine ER 30 MG TAB.ER.24 60 MG PO (07:55)
[2022-04-17] MEDS: Insulin Glargine,Hum.rec.anlog 100 UNIT/ML 10 ML VIAL 40 UNIT SUBCUT (07:56)
[2022-04-17] MEDS: Insulin Lispro 100 UNIT/ML 3 ML VIAL SUBCUT ×4 (07:56→20:41)
[2022-04-17] MEDS: methADONE HCl 20 MG/2 ML ORAL.CONC 65 MG PO (07:56)
[2022-04-17] MEDS: Tamsulosin HCL 0.4 MG CAPSULE PO (07:56)
[2022-04-17 09:00] LABS: Alanine Aminotransferase 14 U/L (0-40); Albumin Level 2.8 g/dL (3.5-5.0); Alkaline Phosphatase 108 U/L (39-117); Anion Gap 17 (12-20); Aspartate Amino Transferase 13 U/L (5-37); Bilirubin Total < 0.2 mg/dL (0.0-1.0); Blood Urea Nitrogen 59 mg/dL (9-16); Calcium 8.2 mg/dL (8.4-10.2); Carbon Dioxide 25 mmol/L (22-29); Chloride 101 mmol/L (96-108); Estimated Glomerular Filt Rate 15; Glucose Fasting 290 mg/dL (60-99); Potassium 5.2 mmol/L (3.3-5.1); Sodium 138 mmol/L (135-145); Total Protein 6.8 g/dL (6.5-8.0)
[2022-04-17 11:11] VITALS: BP 149/79; PULSE 80; RESP 15; TEMP 36.3; O2SAT 98
[2022-04-17 11:25] LABS: Glucose, Whole Blood 216 mg/dL (60-115)
[2022-04-17 14:37] LABS: Immunoglobulin A 433 mg/dL (47-310)
[2022-04-17] MEDS: Sodium Zirconium Cyclosilicate 10 GM POWD.PACK PO (15:09)
[2022-04-17] MEDS: DAPTOmycin 700 MG in 0.9 % Sodium Chloride 50 ML 128 MG IV (15:09)
--- NOTE | 2022-04-17 15:15 | HO.PM.IMPN ---
Subjective Subjective Date of Service: 04/17/22 Interval History: This history was taken in Romanian from the patient. Continues to refuse renal biopsy No fever and denies foot pain Review of Systems Review of Systems: Yes all other systems are reviewed and are negative Physical Exam Vital Signs: Vital Signs: Last Vital Signs Temp 97.3 F 04/17/22 11:11 Pulse 80 04/17/22 11:11 Resp 15 04/17/22 11:11 BP 149/79 H 04/17/22 11:11 Pulse Ox 98 04/17/22 11:11 O2 Del Method 04/17/22 11:11 O2 Flow Rate 8 04/04/22 22:25 BMI result Body Mass Index 35.2 Gen: in no acute distress HEENT: sclera anicteric, moist mucus membranes Neck: supple Lungs: clear to auscultation bilaterally Heart: regular rate and rhythm, no murmurs Abd: soft, non-tender, non-distended Ext: no edema, L foot with dry surgical dressing Skin: warm/well-perfused Neuro: alert and oriented x3, no focal findings Psych: appropriate affect Objective Data Active Medications Acetaminophen (Acetaminophen 325 Mg Tablet) 650 mg PO Q6H PRN PRN Reason: Pain, Moderate (Pain Scale 4-6 Last Admin: 04/17/22 06:01 Dose: 650 mg Documented By: CANELO Atorvastatin Calcium (Atorvastatin Calcium 10 Mg Tablet) 10 mg PO DAILY [facility] Last Admin: 04/17/22 07:55 Dose: 10 mg Documented By: ALOK Carvedilol (Carvedilol 25 Mg Tablet) 25 mg PO BID [facility]; Protocol Last Admin: 04/17/22 07:55 Dose: 25 mg Documented By: ALOK Dextrose (Dextrose 50 % 25 Gm/50 Ml Syringe) 25 gm IVPUSH Q15M PRN; Protocol PRN Reason: per Hypoglycemia Standing Ord. Dextrose (Dextrose 50 % 25 Gm/50 Ml Syringe) 25 gm IVPUSH Q15M PRN; Protocol PRN Reason: per Hypoglycemia Standing Ord. Glucose (Glucose Gel 15 Gm Gel..Gram.) 15 gm PO Q15M PRN; Protocol PRN Reason: per Hypoglycemia Standing Ord. Glucose (Glucose Gel 15 Gm Gel..Gram.) 15 gm PO Q15M PRN; Protocol PRN Reason: per Hypoglycemia Standing Ord. Heparin Sodium (Porcine) (Heparin Sodium,Porcine 5,000 Unit/Ml Vial) 5,000 unit SUBCUT Q12H [facility] Last Admin: 04/17/22 06:00 Dose: 5,000 unit Documented By: CANELO Hydroxyzine HCl (Hydroxyzine Hcl 25 Mg Tablet) 25 mg PO TID PRN PRN Reason: itching Daptomycin 700 mg/ Sodium (Chloride) 64 mls @ 128 mls/hr IV Q48H [facility] Stop: 06/28/22 15:29 Last Admin: 04/17/22 15:09 Dose: 128 mls/hr Documented By: ALOK Insulin Glargine (Insulin Glargine,Hum.Rec.Anlog 100 Unit/Ml 10 Ml Vial) 40 unit SUBCUT DAILY [facility] Last Admin: 04/17/22 07:56 Dose: 40 unit Documented By: ALOK Insulin Human Lispro (Insulin Lispro 100 Unit/Ml 3 Ml Vial) 0 unit SUBCUT QIDACHS [facility]; Protocol Last Admin: 04/17/22 11:38 Dose: 6 unit Documented By: ALOK Methadone HCl (Methadone Hcl 20 Mg/2 Ml Oral.Conc) 65 mg PO DAILY [facility] Last Admin: 04/17/22 07:56 Dose: 65 mg Documented By: ALOK Nifedipine (Nifedipine Er 30 Mg Tab.Er.24) 60 mg PO DAILY [facility]; Protocol Last Admin: 04/17/22 07:55 Dose: 60 mg Documented By: ALOK Omeprazole (Omeprazole 20 Mg Capsule.Dr) 20 mg PO DAILY@0630 [facility] Last Admin: 04/17/22 06:00 Dose: 20 mg Documented By: CANELO Ondansetron HCl (Ondansetron Hcl 4 Mg/2 Ml Vial) 4 mg IVPUSH Q8H PRN PRN Reason: Nausea and Vomiting Last Admin: 04/16/22 16:49 Dose: 4 mg Documented By: ARNULFO Pharmacy Consult (Consult Rx Perform Med Rec) 1 each MISCELLANE ONCE PRN PRN Reason: Consult order Sodium Chloride (0.9 % Sodium Chloride Flush 3 Ml Syringe) 3 ml IVFLUSH QSHIFT [facility] Last Admin: 04/17/22 07:55 Dose: 3 ml Documented By: ALOK Tamsulosin HCl (Tamsulosin Hcl 0.4 Mg Capsule) 0.4 mg PO DAILY [facility] Last Admin: 04/17/22 07:56 Dose: 0.4 mg Documented By: ALOK Labs CBC & Chem 7: 04/17/22 05:39 04/17/22 05:39 Labs: Laboratory Results - last 24 hr 04/15/22 04/16/22 04/16/22 06:34 16:48 19:19 MCV MCH MCHC RDW Plt Count MPV Immature Gran % (Auto) Neut % (Auto) Lymph % (Auto) [place] % (Auto) Eos % (Auto) Baso % (Auto) Lymph # (Auto) [place] # (Auto) Eos # (Auto) Baso # (Auto) Abs Immat Gran (auto) Absolute Neuts (auto) Absolute Nucleated RBC Nucleated RBC % (auto) Anion Gap Estim Creat Clear Calc Estimated GFR POC Glucose 138 H 226 H Fasting Glucose Calcium Total Bilirubin AST ALT Alkaline Phosphatase Total Protein Albumin IgA 433 H 04/17/22 04/17/22 04/17/22 05:39 05:39 07:20 MCV 82.6 MCH 25.5 L MCHC 30.9 L RDW 14.4 Plt Count 338 MPV 10.4 Immature Gran % (Auto) 0.4 Neut % (Auto) 76.9 H Lymph % (Auto) 13.7 L [place] % (Auto) 7.3 Eos % (Auto) 1.3 Baso % (Auto) 0.4 Lymph # (Auto) 1.6 [place] # (Auto) 0.9 Eos # (Auto) 0.2 Baso # (Auto) 0.1 Abs Immat Gran (auto) 0.05 H Absolute Neuts (auto) 9.0 H Absolute Nucleated RBC 0.000 Nucleated RBC % (auto) 0.0 Anion Gap 17 Estim Creat Clear Calc 22.0 Estimated GFR 15 POC Glucose 239 H Fasting Glucose 290 H D Calcium 8.2 L Total Bilirubin < 0.2 AST 13 ALT 14 Alkaline Phosphatase 108 Total Protein 6.8 Albumin 2.8 L IgA 04/17/22 11:17 MCV MCH MCHC RDW Plt Count MPV Immature Gran % (Auto) Neut % (Auto) Lymph % (Auto) [place] % (Auto) Eos % (Auto) Baso % (Auto) Lymph # (Auto) [place] # (Auto) Eos # (Auto) Baso # (Auto) Abs Immat Gran (auto) Absolute Neuts (auto) Absolute Nucleated RBC Nucleated RBC % (auto) Anion Gap Estim Creat Clear Calc Estimated GFR POC Glucose 216 H Fasting Glucose Calcium Total Bilirubin AST ALT Alkaline Phosphatase Total Protein Albumin IgA Assessment and Plan (1) Diabetic infection of left foot: Status: Acute (2) Acute kidney injury: Status: Acute (3) Osteomyelitis: Status: Acute (4) Diabetes type 2, controlled: Status: Acute Plan hospital d#14 56yo M with DM2 admitted for DM foot infection with gas gangrene, s/p amputation of L 4th toe and debridement 04/04/22 # DM foot infection/MRSA infection - daptomycin d#, holding on line placement pending possible need for HD - outpt endovascular intervention once renal function recovers to GFR of 60+ # AMY - refused biopsy, Nephrology following, 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
[2022-04-17 15:54] VITALS: BP 153/73; PULSE 85; RESP 15; TEMP 36.4; O2SAT 96
[2022-04-17 16:38] LABS: Glucose, Whole Blood 177 mg/dL (60-115)
[2022-04-17 19:30] VITALS: BP 150/76; PULSE 94; RESP 16; TEMP 36.7; O2SAT 98
[2022-04-17 19:45] LABS: Glucose, Whole Blood 240 mg/dL (60-115)
[2022-04-18] VITALS: BP 143/63; PULSE 86; RESP 18; TEMP 36.6; O2SAT 97
[2022-04-18 03:56] VITALS: BP 156/72; PULSE 85; RESP 17; TEMP 36.9; O2SAT 98
[2022-04-18 05:49] LABS: Hematocrit 24.1 % (42.0-52.0); Hemoglobin 7.6 g/dl (14.0-18.0); Mean Corpuscular HGB Conc 31.5 g/dl (31.0-36.0); Mean Corpuscular Hemoglobin 26.3 pg (27.0-33.0); Mean Corpuscular Volume 83.4 fL (80.0-98.0); Mean Platelet Volume 10.2 fL (9.4-12.4); Platelet Count 301 X10*3/uL (160-400); Red Blood Count 2.89 X10*6/uL (4.60-5.80); Red Cell Distribution Width 14.4 % (11.0-16.0)
[2022-04-18] MEDS: Omeprazole 20 MG CAPSULE.DR PO (05:51)
[2022-04-18] MEDS: Heparin Sodium,Porcine 5,000 UNIT/ML VIAL 5000 UNIT SUBCUT ×2 (05:51→16:57)
[2022-04-18 06:09] LABS: Anion Gap 16 (12-20); Blood Urea Nitrogen 58 mg/dL (9-16); Calcium 8.2 mg/dL (8.4-10.2); Carbon Dioxide 26 mmol/L (22-29); Chloride 102 mmol/L (96-108); Creatinine Clr Calc Pharmacy 24.1; Estimated Glomerular Filt Rate 16; Glucose Random 273 mg/dL (60-115); Potassium 4.7 mmol/L (3.3-5.1); Sodium 139 mmol/L (135-145)
[2022-04-18 07:15] VITALS: BP 140/74; PULSE 86; RESP 18; TEMP 36.4; O2SAT 96
[2022-04-18 07:28] LABS: Glucose, Whole Blood 220 mg/dL (60-115)
[2022-04-18] MEDS: 0.9 % Sodium Chloride Flush 3 ML SYRINGE IVFLUSH ×3 (07:41→21:06)
[2022-04-18] MEDS: Insulin Lispro 100 UNIT/ML 3 ML VIAL SUBCUT ×4 (07:41→21:01)
[2022-04-18] MEDS: NIFEdipine ER 30 MG TAB.ER.24 60 MG PO (07:41)
[2022-04-18] MEDS: Atorvastatin Calcium 10 MG TABLET PO (07:42)
[2022-04-18] MEDS: methADONE HCl 20 MG/2 ML ORAL.CONC 65 MG PO (07:42)
[2022-04-18] MEDS: carvediloL 25 MG TABLET PO ×2 (07:42→21:00)
[2022-04-18] MEDS: Insulin Glargine,Hum.rec.anlog 100 UNIT/ML 10 ML VIAL 40 UNIT SUBCUT (07:42)
[2022-04-18] MEDS: Tamsulosin HCL 0.4 MG CAPSULE PO (07:42)
[2022-04-18] MEDS: Acetaminophen 325 MG TABLET 650 MG PO ×2 (07:48→21:00)
[2022-04-18] MEDS: ondansetron HCL 4 MG/2 ML VIAL IVPUSH (07:51)
--- NOTE | 2022-04-18 10:30 | HO.PM.IMPN ---
Subjective Subjective Date of Service: 04/18/22 Interval History: denies fever SCr down to 3.89 from 4.25 minimal foot pain Review of Systems Review of Systems: Yes all other systems are reviewed and are negative Physical Exam Vital Signs: Vital Signs: Last Vital Signs Temp 97.5 F 04/18/22 07:15 Pulse 86 04/18/22 07:15 Resp 18 04/18/22 07:15 BP 140/74 H 04/18/22 07:15 Pulse Ox 96 04/18/22 07:15 O2 Del Method 04/18/22 07:15 O2 Flow Rate 8 04/04/22 22:25 BMI result Body Mass Index 35.2 Gen: in no acute distress HEENT: sclera anicteric, moist mucus membranes Neck: supple Lungs: clear to auscultation bilaterally Heart: regular rate and rhythm, no murmurs Abd: soft, non-tender, non-distended Ext: no edema, L foot with dry surgical dressing Skin: warm/well-perfused Neuro: alert and oriented x3, no focal findings Psych: appropriate affect Objective Data Active Medications Acetaminophen (Acetaminophen 325 Mg Tablet) 650 mg PO Q6H PRN PRN Reason: Pain, Moderate (Pain Scale 4-6 Last Admin: 04/18/22 07:48 Dose: 650 mg Documented By: ALOK Atorvastatin Calcium (Atorvastatin Calcium 10 Mg Tablet) 10 mg PO DAILY [facility] Last Admin: 04/18/22 07:42 Dose: 10 mg Documented By: ALOK Carvedilol (Carvedilol 25 Mg Tablet) 25 mg PO BID [facility]; Protocol Last Admin: 04/18/22 07:42 Dose: 25 mg Documented By: ALOK Dextrose (Dextrose 50 % 25 Gm/50 Ml Syringe) 25 gm IVPUSH Q15M PRN; Protocol PRN Reason: per Hypoglycemia Standing Ord. Dextrose (Dextrose 50 % 25 Gm/50 Ml Syringe) 25 gm IVPUSH Q15M PRN; Protocol PRN Reason: per Hypoglycemia Standing Ord. Ferrous Sulfate (Ferrous Sulfate 324 Mg Tablet.Dr) 324 mg PO DAILY [facility] Glucose (Glucose Gel 15 Gm Gel..Gram.) 15 gm PO Q15M PRN; Protocol PRN Reason: per Hypoglycemia Standing Ord. Glucose (Glucose Gel 15 Gm Gel..Gram.) 15 gm PO Q15M PRN; Protocol PRN Reason: per Hypoglycemia Standing Ord. Heparin Sodium (Porcine) (Heparin Sodium,Porcine 5,000 Unit/Ml Vial) 5,000 unit SUBCUT Q12H [facility] Last Admin: 04/18/22 05:51 Dose: 5,000 unit Documented By: CANELO Hydroxyzine HCl (Hydroxyzine Hcl 25 Mg Tablet) 25 mg PO TID PRN PRN Reason: itching Daptomycin 700 mg/ Sodium (Chloride) 64 mls @ 128 mls/hr IV Q48H [facility] Stop: 06/28/22 15:29 Last Infusion: 04/17/22 15:54 Dose: 0 mls/hr Documented By: ALOK Insulin Glargine (Insulin Glargine,Hum.Rec.Anlog 100 Unit/Ml 10 Ml Vial) 40 unit SUBCUT DAILY [facility] Last Admin: 04/18/22 07:42 Dose: 40 unit Documented By: ALOK Insulin Human Lispro (Insulin Lispro 100 Unit/Ml 3 Ml Vial) 0 unit SUBCUT QIDACHS [facility]; Protocol Last Admin: 04/18/22 07:41 Dose: 6 unit Documented By: ALOK Methadone HCl (Methadone Hcl 20 Mg/2 Ml Oral.Conc) 65 mg PO DAILY [facility] Last Admin: 04/18/22 07:42 Dose: 65 mg Documented By: ALOK Nifedipine (Nifedipine Er 30 Mg Tab.Er.24) 60 mg PO DAILY [facility]; Protocol Last Admin: 04/18/22 07:41 Dose: 60 mg Documented By: ALOK Omeprazole (Omeprazole 20 Mg Capsule.Dr) 20 mg PO DAILY@0630 [facility] Last Admin: 04/18/22 05:51 Dose: 20 mg Documented By: CANELO Ondansetron HCl (Ondansetron Hcl 4 Mg/2 Ml Vial) 4 mg IVPUSH Q8H PRN PRN Reason: Nausea and Vomiting Last Admin: 04/18/22 07:51 Dose: 4 mg Documented By: ALOK Pharmacy Consult (Consult Rx Perform Med Rec) 1 each MISCELLANE ONCE PRN PRN Reason: Consult order Sodium Chloride (0.9 % Sodium Chloride Flush 3 Ml Syringe) 3 ml IVFLUSH QSHIFT [facility] Last Admin: 04/18/22 07:41 Dose: 3 ml Documented By: ALOK Tamsulosin HCl (Tamsulosin Hcl 0.4 Mg Capsule) 0.4 mg PO DAILY [facility] Last Admin: 04/18/22 07:42 Dose: 0.4 mg Documented By: ALOK Labs CBC & Chem 7: 04/18/22 05:26 04/18/22 05:26 Labs: Laboratory Results - last 24 hr 04/15/22 04/17/22 04/17/22 06:34 11:17 15:56 MCV MCH MCHC RDW Plt Count MPV Absolute Nucleated RBC Nucleated RBC % (auto) Anion Gap Estim Creat Clear Calc Estimated GFR POC Glucose 216 H 177 H Random Glucose Calcium IgA 433 H 04/17/22 04/18/22 04/18/22 19:32 05:26 05:26 MCV 83.4 MCH 26.3 L MCHC 31.5 RDW 14.4 Plt Count 301 MPV 10.2 Absolute Nucleated RBC 0.000 Nucleated RBC % (auto) 0.0 Anion Gap 16 Estim Creat Clear Calc 24.1 Estimated GFR 16 POC Glucose 240 H Random Glucose 273 H Calcium 8.2 L IgA 04/18/22 07:17 MCV MCH MCHC RDW Plt Count MPV Absolute Nucleated RBC Nucleated RBC % (auto) Anion Gap Estim Creat Clear Calc Estimated GFR POC Glucose 220 H Random Glucose Calcium IgA Assessment and Plan (1) Diabetic infection of left foot: Status: Acute (2) Acute kidney injury: Status: Acute (3) Osteomyelitis: Status: Acute (4) Diabetes type 2, controlled: Status: Acute Plan hospital d#15 56yo M with DM2 admitted for DM foot infection with gas gangrene, s/p amputation of L 4th toe and debridement 04/04/22 # DM foot osteomyelitis/MRSA infection - daptomycin d#, holding on line placement pending possible need for HD - wound care per Dr Edwards: silver alginate dressing to wound followed by fluffed gauze and Kerlix, daily - outpt endovascular intervention once renal function recovers to GFR of 60+ per Dr Brown # AMY - refused biopsy, Nephrology following, 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 vs septic ATN; serologies pending [complements normal, IgA elevated]; continue to monitor BMP which has peaked and hopefully will continue to trend down # hyperK - resolved # HTN - continue carvedilol + nifedipine # anemia, mixed ACD/VICTORIA - monitor Hb, start Fe supplementation # DM2 - basal/bolus insulin # opioid dependence - continue methadone # VTE ppx: LMWH In my clinical judgment, the patient requires continued hospitalization for the following reasons: AMY, IV ABX Quality Stroke Does the patient have a stroke diagnosis?: No VTE Prior VTE?: No VTE Risk Level:: Surgical - moderate VTE Device Contraindication: N/A - Device Ordered VTE Drug Contraindication: N/A - Med Ordered
--- NOTE | 2022-04-18 10:58 | P.PNNP_ITS ---
Subjective Subjective Date of Service: 04/18/22 Interval history: denies fever SCr down to 3.89 from 4.25 minimal foot pain Physical Exam 2 Vital Signs: Vital Signs: Last Vital Signs Temp 97.5 F 04/18/22 07:15 Pulse 86 04/18/22 07:15 Resp 18 04/18/22 07:15 BP 140/74 H 04/18/22 07:15 Pulse Ox 96 04/18/22 07:15 O2 Del Method 04/18/22 07:15 O2 Flow Rate 8 04/04/22 22:25 BMI result Body Mass Index 35.2 Const: Other: and no acute distress General: cooperative, healthy appearing, comfortable, no acute distress, acute distress mild and tired appearing Nutritional Appearance: well nourished Orientation/consciousness: oriented to person, oriented to place, oriented to time and patient oriented x3 Limitations: no limitations and ambulation with walker HEENT: Head: Yes normal to inspection, Yes normocephalic and Yes atraumatic Ears: hearing grossly normal bilaterally Face and sinus: Yes normal facial exam Mouth: Normal oral and palatal mucosa present and moist mucous membranes Teeth and gingiva: dentition normal Eyes: General: appearance normal, both eyes and all related structures Pupils: Equal, round and reactive pupils present EOM: EOMs intact bilaterally Neck: Neck: Yes normal visual inspection, Yes full ROM, Yes trachea midline and Yes supple Carotids: no bruits Chest: Chest palpation & inspection: normal inspection of the chest Resp: Other: clear to auscultation bilaterally no rales rhonchi or wheezes Effort & Inspection: normal respiratory effort, able to speak in complete sentences, no audible wheezes, no cough and no respiratory distress Auscultation: clear to auscultation bilaterally, no crackles, no rales, no rhonchi, no wheezes and diminished lung sounds Cardio: Other: no S4; positive S1-S2; no S3 murmurs rubs or gallops Rate: regular rate Rhythm: regular rhythm Heart sounds: S1 normal heart sound present and S2 normal heart sound present Bruits: no carotid bruits Peripheral pulses: dorsalis pedis present ( Bilateral DP signals) GI: Other: soft nontender -somewhat distended, with normoactive bowel sounds Inspection: Yes normal to inspection Palpation (GI): Soft to palpation and nontender : General: Yes no CVA tenderness Back/Spine/Pelvis: Back: no CVA tenderness Cervical Spine: normal cervical lordosis Thoracic/Lumbar Spine: thoracic and lumbar spine normal to inspecti on Skin: Other: Warm, dry, no rash General skin exam: no rashes or lesions noted Wounds: no wounds and wounds noted ( Dressing clean dry intact) Hair: normal Neuro: General: oriented to person, oriented to place, oriented to time, patient oriented x3, tone normal, moves all extremities and CN's II-XI intact bilaterally Cranial nerves: Yes CN's II-XII intact bilaterally, Yes Equal, round and reactive pupils present and Yes Normal hearing present Cognition (Neuro): normal cognition Motor exam (neuro): 5/5 motor strength present throughout Extrem: Other: 2 plus left lower extremities edema; wrapped in [place] wrap General: Yes normal to inspection, Yes full ROM, Yes capillary refill normal, Yes no clubbing, cyanosis or edema, No clubbing, No cyanosis and No edema Psych: Appearance: grossly normal and well kempt Mental Status: mental status grossly normal Speech and movement: Normal speech and movement present Affect: normal affect Attitude: cooperative Thought process: Normal thought process present Objective Data Labs CBC & Chem 7: 04/18/22 05:26 04/18/22 05:26 Labs: Laboratory Results - last 24 hr 04/15/22 04/17/22 04/17/22 06:34 11:17 15:56 WBC RBC Hgb Hct MCV MCH MCHC RDW Plt Count MPV Absolute Nucleated RBC Nucleated RBC % (auto) Sodium Potassium Chloride Carbon Dioxide Anion Gap BUN Creatinine Estim Creat Clear Calc Estimated GFR POC Glucose 216 H 177 H Random Glucose Calcium IgA 433 H 04/17/22 04/18/22 04/18/22 19:32 05:26 05:26 WBC 12.0 H RBC 2.89 L Hgb 7.6 L Hct 24.1 L MCV 83.4 MCH 26.3 L MCHC 31.5 RDW 14.4 Plt Count 301 MPV 10.2 Absolute Nucleated RBC 0.000 Nucleated RBC % (auto) 0.0 Sodium 139 Potassium 4.7 Chloride 102 Carbon Dioxide 26 Anion Gap 16 BUN 58 H Creatinine 3.89 H Estim Creat Clear Calc 24.1 Estimated GFR 16 POC Glucose 240 H Random Glucose 273 H Calcium 8.2 L IgA 04/18/22 07:17 WBC RBC Hgb Hct MCV MCH MCHC RDW Plt Count MPV Absolute Nucleated RBC Nucleated RBC % (auto) Sodium Potassium Chloride Carbon Dioxide Anion Gap BUN Creatinine Estim Creat Clear Calc Estimated GFR POC Glucose 220 H Random Glucose Calcium IgA Microbiology Microbiology Results: Microbiology 04/04/22 18:15 Blood - Venous Blood Culture - Final No growth after 5 days. 04/04/22 17:53 Blood - Venous Blood Culture - Final No growth after 5 days. 04/04/22 Unknown Foot Left Gram Stain - Final 04/04/22 Unknown Foot Left Routine Culture - Final Strep agalactiae (Grp B) Methicillin Res Staph Aureus Procedures Date of Service Date of Service: 04/18/22 Assessment & Plan Assessment and plan (1) Diabetic infection of left foot: Status: Acute (2) Acute kidney injury: Status: Acute Assessment and Plan: Acute Kidney Injury likely due to tubular injury (multifactorial- septic ATN & had been receiving Vanco) No significant RBC in the urine to suspect GN; some pyuria: IgA dominant postinfectious GN possible-complements normal; IgA level slightly elevated Was on ACEI at home which is on hold Had a Castano catheter with good urine output No indication for renal replacement today Renal biopsy ordered; pt refused Potassium better today (3) Osteomyelitis: Status: Acute (4) Anemia: Status: Acute Plan Check iron stores Low K diet Hold off biopsy Should continue to improve Keep BP 130 systolic Time Spent With Patient Time: Total time spent is greater than 50% in coordination of care (as documented) at patient's floor/unit and/or counseling patient: Progress Note: Quality Stroke Does the patient have a stroke diagnosis?: No
[2022-04-18 11:14] VITALS: BP 143/74; PULSE 75; RESP 18; TEMP 36.3; O2SAT 99
[2022-04-18 11:34] LABS: Glucose, Whole Blood 225 mg/dL (60-115)
[2022-04-18] MEDS: Ferrous Sulfate 324 MG TABLET.DR PO (11:48)
[2022-04-18 16:00] VITALS: BP 139/74; PULSE 83; RESP 20; TEMP 36.4; O2SAT 99
[2022-04-18 16:33] LABS: Glucose, Whole Blood 213 mg/dL (60-115)
[2022-04-18 19:55] VITALS: BP 180/92; PULSE 93; RESP 17; TEMP 36.6; O2SAT 98
[2022-04-18 20:01] LABS: Glucose, Whole Blood 162 mg/dL (60-115)
[2022-04-18] MEDS: hydrOXYzine HCL 25 MG TABLET PO (21:00)
[2022-04-19] VITALS (7 sets, daily range): BP systolic 125–150; BP diastolic 61–80; PULSE 74–95; RESP 16–20; TEMP 36.6–37; O2SAT 92–99
[2022-04-19 06:12] LABS: Hematocrit 25.1 % (42.0-52.0); Hemoglobin 7.9 g/dl (14.0-18.0); Mean Corpuscular HGB Conc 31.5 g/dl (31.0-36.0); Mean Corpuscular Hemoglobin 25.7 pg (27.0-33.0); Mean Corpuscular Volume 81.8 fL (80.0-98.0); Mean Platelet Volume 10.2 fL (9.4-12.4); Platelet Count 287 X10*3/uL (160-400); Red Blood Count 3.07 X10*6/uL (4.60-5.80); Red Cell Distribution Width 14.4 % (11.0-16.0); White Blood Count 10.8 X10*3/uL (4.8-10.8)
[2022-04-19] MEDS: Heparin Sodium,Porcine 5,000 UNIT/ML VIAL 5000 UNIT SUBCUT ×2 (06:14→17:23)
[2022-04-19] MEDS: ondansetron HCL 4 MG/2 ML VIAL IVPUSH (06:19)
[2022-04-19 06:36] LABS: Anion Gap 16 (12-20); Blood Urea Nitrogen 58 mg/dL (9-16); C Reactive Protein 7.04 mg/dL (< or = 0.50); Calcium 8.4 mg/dL (8.4-10.2); Carbon Dioxide 26 mmol/L (22-29); Chloride 104 mmol/L (96-108); Creatinine Clr Calc Pharmacy 25.7; Estimated Glomerular Filt Rate 17; Glucose Random 78 mg/dL (60-115); Potassium 4.6 mmol/L (3.3-5.1); Sodium 141 mmol/L (135-145)
[2022-04-19 06:47] LABS: Erythrocyte Sedimentation Rate 115 MM/HR (0-15)
[2022-04-19 07:11] LABS: Glucose, Whole Blood 77 mg/dL (60-115)
[2022-04-19] MEDS: carvediloL 25 MG TABLET PO ×2 (08:22→21:36)
[2022-04-19] MEDS: Ferrous Sulfate 324 MG TABLET.DR PO (08:22)
[2022-04-19] MEDS: Tamsulosin HCL 0.4 MG CAPSULE PO (08:23)
[2022-04-19] MEDS: NIFEdipine ER 30 MG TAB.ER.24 90 MG PO (08:23)
[2022-04-19] MEDS: 0.9 % Sodium Chloride Flush 3 ML SYRINGE IVFLUSH ×3 (08:23→23:38)
[2022-04-19] MEDS: methADONE HCl 20 MG/2 ML ORAL.CONC 65 MG PO (08:24)
--- NOTE | 2022-04-19 10:03 | HO.PM.IMPN ---
Subjective Subjective Date of Service: 04/19/22 Interval History: foot pain controlled no fever SCr down from 3.89 to 3.64 Review of Systems Review of Systems: Yes all other systems are reviewed and are negative Physical Exam Vital Signs: Vital Signs: Last Vital Signs Temp 98 F 04/19/22 07:03 Pulse 83 04/19/22 07:03 Resp 18 04/19/22 07:03 BP 150/74 H 04/19/22 07:03 Pulse Ox 92 04/19/22 07:03 O2 Del Method 04/19/22 07:03 O2 Flow Rate 8 04/04/22 22:25 BMI result Body Mass Index 35.2 Gen: in no acute distress HEENT: sclera anicteric, moist mucus membranes Neck: supple Lungs: clear to auscultation bilaterally Heart: regular rate and rhythm, no murmurs Abd: soft, non-tender, non-distended Ext: no edema, L foot with dry surgical dressing Skin: warm/well-perfused Neuro: alert and oriented x3, no focal findings Psych: appropriate affect ? Objective Data Active Medications Acetaminophen (Acetaminophen 325 Mg Tablet) 650 mg PO Q6H PRN PRN Reason: Pain, Moderate (Pain Scale 4-6 Last Admin: 04/18/22 21:00 Dose: 650 mg Documented By: CANELO Carvedilol (Carvedilol 25 Mg Tablet) 25 mg PO BID [facility]; Protocol Last Admin: 04/19/22 08:22 Dose: 25 mg Documented By: ROCÍO Dextrose (Dextrose 50 % 25 Gm/50 Ml Syringe) 25 gm IVPUSH Q15M PRN; Protocol PRN Reason: per Hypoglycemia Standing Ord. Dextrose (Dextrose 50 % 25 Gm/50 Ml Syringe) 25 gm IVPUSH Q15M PRN; Protocol PRN Reason: per Hypoglycemia Standing Ord. Ferrous Sulfate (Ferrous Sulfate 324 Mg Tablet.Dr) 324 mg PO DAILY [facility] Last Admin: 04/19/22 08:22 Dose: 324 mg Documented By: ROCÍO Glucose (Glucose Gel 15 Gm Gel..Gram.) 15 gm PO Q15M PRN; Protocol PRN Reason: per Hypoglycemia Standing Ord. Glucose (Glucose Gel 15 Gm Gel..Gram.) 15 gm PO Q15M PRN; Protocol PRN Reason: per Hypoglycemia Standing Ord. Heparin Sodium (Porcine) (Heparin Sodium,Porcine 5,000 Unit/Ml Vial) 5,000 unit SUBCUT Q12H [facility] Last Admin: 04/19/22 06:14 Dose: 5,000 unit Documented By: CANELO Hydroxyzine HCl (Hydroxyzine Hcl 25 Mg Tablet) 25 mg PO TID PRN PRN Reason: itching Last Admin: 04/18/22 21:00 Dose: 25 mg Documented By: CANELO Daptomycin 700 mg/ Sodium (Chloride) 64 mls @ 128 mls/hr IV Q48H [facility] Stop: 06/28/22 15:29 Last Infusion: 04/17/22 15:54 Dose: 0 mls/hr Documented By: ALOK Insulin Glargine (Insulin Glargine,Hum.Rec.Anlog 100 Unit/Ml 10 Ml Vial) 40 unit SUBCUT DAILY [facility] Last Admin: 04/19/22 08:23 Dose: Not Given Documented By: ROCÍO Non-Admin Reason: low blood sugar Insulin Human Lispro (Insulin Lispro 100 Unit/Ml 3 Ml Vial) 0 unit SUBCUT QIDACHS [facility]; Protocol Last Admin: 04/19/22 07:24 Dose: Not Given Documented By: ROCÍO Non-Admin Reason: No Insulin Coverage Methadone HCl (Methadone Hcl 20 Mg/2 Ml Oral.Conc) 65 mg PO DAILY [facility] Last Admin: 04/19/22 08:24 Dose: 65 mg Documented By: ROCÍO Nifedipine (Nifedipine Er 30 Mg Tab.Er.24) 90 mg PO DAILY [facility]; Protocol Last Admin: 04/19/22 08:23 Dose: 90 mg Documented By: ROCÍO Omeprazole (Omeprazole 20 Mg Capsule.Dr) 20 mg PO DAILY@0630 [facility] Last Admin: 04/19/22 06:16 Dose: Not Given Documented By: CANELO Non-Admin Reason: Nausea Ondansetron HCl (Ondansetron Hcl 4 Mg/2 Ml Vial) 4 mg IVPUSH Q8H PRN PRN Reason: Nausea and Vomiting Last Admin: 04/19/22 06:19 Dose: 4 mg Documented By: CANELO Pharmacy Consult (Consult Rx Perform Med Rec) 1 each MISCELLANE ONCE PRN PRN Reason: Consult order Sodium Chloride (0.9 % Sodium Chloride Flush 3 Ml Syringe) 3 ml IVFLUSH QSHIFT [facility] Last Admin: 04/19/22 08:23 Dose: 3 ml Documented By: ROCÍO Tamsulosin HCl (Tamsulosin Hcl 0.4 Mg Capsule) 0.4 mg PO DAILY [facility] Last Admin: 04/19/22 08:23 Dose: 0.4 mg Documented By: ROCÍO Labs CBC & Chem 7: 04/19/22 05:31 04/19/22 05:31 Labs: Laboratory Results - last 24 hr 04/18/22 04/18/22 04/18/22 11:17 16:13 19:57 MCV MCH MCHC RDW Plt Count MPV Absolute Nucleated RBC Nucleated RBC % (auto) ESR Anion Gap Estim Creat Clear Calc Estimated GFR POC Glucose 225 H 213 H 162 H Random Glucose Calcium C-Reactive Protein 04/19/22 04/19/22 04/19/22 05:31 05:31 05:31 MCV 81.8 MCH 25.7 L MCHC 31.5 RDW 14.4 Plt Count 287 MPV 10.2 Absolute Nucleated RBC 0.000 Nucleated RBC % (auto) 0.0 ESR 115 H Anion Gap 16 Estim Creat Clear Calc 25.7 Estimated GFR 17 POC Glucose Random Glucose 78 D Calcium 8.4 C-Reactive Protein 7.04 H 04/19/22 07:03 MCV MCH MCHC RDW Plt Count MPV Absolute Nucleated RBC Nucleated RBC % (auto) ESR Anion Gap Estim Creat Clear Calc Estimated GFR POC Glucose 77 Random Glucose Calcium C-Reactive Protein Assessment and Plan (1) Diabetic infection of left foot: Status: Acute (2) Acute kidney injury: Status: Acute (3) Osteomyelitis: Status: Acute (4) Diabetes type 2, controlled: Status: Acute Plan hospital d#16 56yo M with DM2 admitted for DM foot infection with gas gangrene, s/p amputation of L 4th toe and debridement 04/04/22 # DM foot osteomyelitis/MRSA infection - daptomycin d#, place midline if OK with nephrology - wound care per Dr Edwards: silver alginate dressing to wound followed by fluffed gauze and Kerlix, daily # PAD - hold statin while on daptomycin - outpt endovascular intervention once renal function recovers to GFR of 60+ per Dr Brown # AMY - refused biopsy, Nephrology following, 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 vs septic ATN; serologies pending [complements normal, IgA elevated]; continue to monitor BMP which has peaked and continues to slowly come down; increase nifedipine for better BP control # hyperK - resolved # HTN - continue carvedilol, increase dose of nifedipine for better control # anemia, mixed ACD/VICTORIA - monitor Hb, started Fe supplementation # DM2 - basal/bolus insulin # opioid dependence - continue methadone # VTE ppx: LMWH In my clinical judgment, the patient requires continued hospitalization for the following reasons: AMY, IV ABX Quality Stroke Does the patient have a stroke diagnosis?: No VTE Prior VTE?: No VTE Risk Level:: Surgical - moderate VTE Device Contraindication: N/A - Device Ordered VTE Drug Contraindication: N/A - Med Ordered
[2022-04-19 11:28] LABS: Glucose, Whole Blood 186 mg/dL (60-115)
[2022-04-19] MEDS: Insulin Lispro 100 UNIT/ML 3 ML VIAL SUBCUT ×3 (12:03→21:35)
--- NOTE | 2022-04-19 12:38 | P.PNNP_ITS ---
Subjective Subjective Date of Service: 04/19/22 Interval history: Seen and examoned, evemts ntoed Physical Exam Vital Signs: Vital Signs: Last Vital Signs Temp 98 F 04/19/22 11:12 Pulse 74 04/19/22 11:12 Resp 16 04/19/22 11:12 BP 147/80 H 04/19/22 11:12 Pulse Ox 99 04/19/22 11:12 O2 Del Method 04/19/22 11:12 O2 Flow Rate 8 04/04/22 22:25 BMI result Body Mass Index 35.2 Const: Other: and no acute distress General: cooperative, healthy appearing, comfortable, no acute distress, acute distress mild and tired appearing Nutritional Appearance: well nourished Orientation/consciousness: oriented to person, oriented to place, oriented to time and patient oriented x3 Limitations: no limitations and ambulation with walker HEENT: Head: Yes normal to inspection, Yes normocephalic and Yes atraumatic Ears: hearing grossly normal bilaterally Face and sinus: Yes normal facial exam Mouth: Normal oral and palatal mucosa present and moist mucous membranes Teeth and gingiva: dentition normal Eyes: General: appearance normal, both eyes and all related structures Pupils: Equal, round and reactive pupils present EOM: EOMs intact bilaterally Neck: Neck: Yes normal visual inspection, Yes full ROM, Yes trachea midline and Yes supple Carotids: no bruits Chest: Chest palpation & inspection: normal inspection of the chest Resp: Other: clear to auscultation bilaterally no rales rhonchi or wheezes Effort & Inspection: normal respiratory effort, able to speak in complete sentences, no audible wheezes, no cough and no respiratory distress Auscultation: clear to auscultation bilaterally, no crackles, no rales, no rhonchi, no wheezes and diminished lung sounds Cardio: Other: no S4; positive S1-S2; no S3 murmurs rubs or gallops Rate: regular rate Rhythm: regular rhythm Heart sounds: S1 normal heart sound present and S2 normal heart sound present Bruits: no carotid bruits Peripheral pulses: dorsalis pedis present ( Bilateral DP signals) GI: Other: soft nontender -somewhat distended, with normoactive bowel sounds Inspection: Yes normal to inspection Palpation (GI): Soft to palpation and nontender : General: Yes no CVA tenderness Back/Spine/Pelvis: Back: no CVA tenderness Cervical Spine: normal cervical lordosis Thoracic/Lumbar Spine: thoracic and lumbar spine normal to inspection Skin: Other: Warm, dry, no rash General skin exam: no rashes or lesions noted Wounds: no wounds and wounds noted ( Dressing clean dry intact) Hair: normal Neuro: General: oriented to person, oriented to place, oriented to time, patient oriented x3, tone normal, moves all extremities and CN's II-XI intact bilaterally Cranial nerves: Yes CN's II-XII intact bilaterally, Yes Equal, ro und and reactive pupils present and Yes Normal hearing present Cognition (Neuro): normal cognition Motor exam (neuro): 5/5 motor strength present throughout Extrem: Other: 2 plus left lower extremities edema; wrapped in Jeramie wrap General: Yes normal to inspection, Yes full ROM, Yes capillary refill normal, Yes no clubbing, cyanosis or edema, No clubbing, No cyanosis and No edema Psych: Appearance: grossly normal and well kempt Mental Status: mental status grossly normal Speech and movement: Normal speech and movement present Affect: normal affect Attitude: cooperative Thought process: Normal thought process present Objective Data Labs CBC & Chem 7: 04/19/22 05:31 04/19/22 05:31 Labs: Laboratory Results - last 24 hr 04/18/22 04/18/22 04/19/22 16:13 19:57 05:31 WBC 10.8 RBC 3.07 L Hgb 7.9 L Hct 25.1 L MCV 81.8 MCH 25.7 L MCHC 31.5 RDW 14.4 Plt Count 287 MPV 10.2 Absolute Nucleated RBC 0.000 Nucleated RBC % (auto) 0.0 ESR Sodium Potassium Chloride Carbon Dioxide Anion Gap BUN Creatinine Estim Creat Clear Calc Estimated GFR POC Glucose 213 H 162 H Random Glucose Calcium C-Reactive Protein 04/19/22 04/19/22 04/19/22 05:31 05:31 07:03 WBC RBC Hgb Hct MCV MCH MCHC RDW Plt Count MPV Absolute Nucleated RBC Nucleated RBC % (auto) ESR 115 H Sodium 141 Potassium 4.6 Chloride 104 Carbon Dioxide 26 Anion Gap 16 BUN 58 H Creatinine 3.64 H Estim Creat Clear Calc 25.7 Estimated GFR 17 POC Glucose 77 Random Glucose 78 D Calcium 8.4 C-Reactive Protein 7.04 H 04/19/22 11:14 WBC RBC Hgb Hct MCV MCH MCHC RDW Plt Count MPV Absolute Nucleated RBC Nucleated RBC % (auto) ESR Sodium Potassium Chloride Carbon Dioxide Anion Gap BUN Creatinine Estim Creat Clear Calc Estimated GFR POC Glucose 186 H Random Glucose Calcium C-Reactive Protein Microbiology Microbiology Results: Microbiology 04/04/22 18:15 Blood - Venous Blood Culture - Final No growth after 5 days. 04/04/22 17:53 Blood - Venous Blood Culture - Final No growth after 5 days. 04/04/22 Unknown Foot Left Gram Stain - Final 04/04/22 Unknown Foot Left Routine Culture - Final Strep agalactiae (Grp B) Methicillin Res Staph Aureus Procedures Date of Service Date of Service: 04/19/22 Assessment & Plan Assessment and plan (1) Diabetic infection of left foot: Status: Acute (2) Acute kidney injury: Status: Acute Assessment and Plan: 1. Non-Oliguric AMY: DDx: ABx assoc ATN vs PIGN ( Infectius assoc GN) and the only kishore to distinguish is to do a kidny Bx and I expalined to hm it would impact [place] we would look to give him steroids if it was a PIGN pattern of injury He is adamat refusing Bx and therefore will not give empiric steroids SCr grad dedcr is a good sign ( peak Scr 4.3--> 3.6); Sero thus far are neg/n ormal BSL SCr 1.0 on adm 2. Anemia 3. Osteo: off vanc; on dapto REC: cont to trqack renal func; avoid NToxins; will olook to start epo if Hb checo further (3) Osteomyelitis: Status: Acute (4) Anemia: Status: Acute Plan Check iron stores Low K diet Hold off biopsy Should continue to improve Keep BP 130 systolic Time Spent With Patient Time: Total time spent is greater than 50% in coordination of care (as documented) at patient's floor/unit and/or counseling patient: Progress Note: Quality Stroke Does the patient have a stroke diagnosis?: No
--- NOTE | 2022-04-19 13:09 | MHC.CM.PN ---
PER ROUNDS DISCUSSION, PATIENT IS NOT YET MEDICALLY CLEARED FOR DISCHARGE TODAY R/T AMY, NEED FOR IV ANTIBIOTICS, CONTINUE TO TRACK RENAL FUNCTION, AND POTENTIAL BONE INTERVENTION. D/C IS HOME WITH NEW [facility] PATIENT HAS ADAMANTLY DECLINED STR. CM WILL CONTINUE TO FOLLOW FOR DISCHARGE NEEDS.
[2022-04-19] MEDS: DAPTOmycin 700 MG in 0.9 % Sodium Chloride 50 ML 128 MG IV (15:54)
--- NOTE | 2022-04-19 16:40 | PM.PNGS ---
Subjective Subjective Date of Service: 04/19/22 Interval history: Upset about his who is having problems in her rehab center; wants her out of the rehab center as soon as possible. He is concerned about his foot as well. Physical Exam Vital Signs: Vital Signs: Last Vital Signs Temp 98.0 F 04/19/22 15:44 Pulse 87 04/19/22 15:44 Resp 16 04/19/22 15:44 BP 138/65 04/19/22 15:44 Pulse Ox 98 04/19/22 15:44 O2 Del Method 04/19/22 15:44 O2 Flow Rate 8 04/04/22 22:25 BMI result Body Mass Index 35.2 Const: General: anxious and tired appearing Nutritional Appearance: well nourished Orientation/consciousness: patient oriented x3 Resp: Effort & Inspection: normal respiratory effort Skin: Other: dry and scaly Neuro: General: patient oriented x3 Extrem: Other: dressings changed to the left foot. Not much progress noted in the wound healing. White area in the webspace between the 1-2 toes with desquamated skin, excised with a scissors. No open wound noted. Calcium alginate applied to the web space and amputation site. No erythema or fluctuance noted. DSD applied. Ankle/foot/toe images: 1. 2. Objective Data Active Medications Acetaminophen (Acetaminophen 325 Mg Tablet) 650 mg PO Q6H PRN PRN Reason: Pain, Moderate (Pain Scale 4-6 Last Admin: 04/18/22 21:00 Dose: 650 mg Documented By: CANELO Carvedilol (Carvedilol 25 Mg Tablet) 25 mg PO BID [facility]; Protocol Last Admin: 04/19/22 08:22 Dose: 25 mg Documented By: ROCÍO Dextrose (Dextrose 50 % 25 Gm/50 Ml Syringe) 25 gm IVPUSH Q15M PRN; Protocol PRN Reason: per Hypoglycemia Standing Ord. Dextrose (Dextrose 50 % 25 Gm/50 Ml Syringe) 25 gm IVPUSH Q15M PRN; Protocol PRN Reason: per Hypoglycemia Standing Ord. Ferrous Sulfate (Ferrous Sulfate 324 Mg Tablet.) 324 mg PO DAILY [facility] Last Admin: 04/19/22 08:22 Dose: 324 mg Documented By: ROCÍO Glucose (Glucose Gel 15 Gm Gel..Gram.) 15 gm PO Q15M PRN; Protocol PRN Reason: per Hypoglycemia Standing Ord. Glucose (Glucose Gel 15 Gm Gel..Gram.) 15 gm PO Q15M PRN; Protocol PRN Reason: per Hypoglycemia Standing Ord. Heparin Sodium (Porcine) (Heparin Sodium,Porcine 5,000 Unit/Ml Vial) 5,000 unit SUBCUT Q12H [facility] Last Admin: 04/19/22 06:14 Dose: 5,000 unit Documented By: CANELO Hydroxyzine HCl (Hydroxyzine Hcl 25 Mg Tablet) 25 mg PO TID PRN PRN Reason: itching Last Admin: 04/18/22 21:00 Dose: 25 mg Documented By: CANELO Daptomycin 700 mg/ Sodium (Chloride) 64 mls @ 128 mls/hr IV Q48H [facility] Stop: 06/28/22 15:29 Last Infusion: 04/19/22 16:30 Dose: 0 mls/hr Documented By: ROCÍO Insulin Glargine (Insulin Glargine,Hum.Rec.Anlog 100 Unit/Ml 10 Ml Vial) 40 unit SUBCUT DAILY [facility] Last Admin: 04/19/22 08:23 Dose: Not Given Documented By: ROCÍO Non-Admin Reason: low blood sugar Insulin Human Lispro (Insulin Lispro 100 Unit/Ml 3 Ml Vial) 0 unit SUBCUT QIDACHS [facility]; Protocol Last Admin: 04/19/22 12:03 Dose: 4 unit Documented By: ROCÍO Methadone HCl (Methadone Hcl 20 Mg/2 Ml Oral.Conc) 65 mg PO DAILY [facility] Last Admin: 04/19/22 08:24 Dose: 65 mg Documented By: ROCÍO Nifedipine (Nifedipine Er 30 Mg Tab.Er.24) 90 mg PO DAILY [facility]; Protocol Last Admin: 04/19/22 08:23 Dose: 90 mg Documented By: ROCÍO Omeprazole (Omeprazole 20 Mg Capsule.Dr) 20 mg PO DAILY@0630 [facility] Last Admin: 04/19/22 06:16 Dose: Not Given Documented By: CANELO Non-Admin Reason: Nausea Ondansetron HCl (Ondansetron Hcl 4 Mg/2 Ml Vial) 4 mg IVPUSH Q8H PRN PRN Reason: Nausea and Vomiting Last Admin: 04/19/22 06:19 Dose: 4 mg Documented By: CANELO Pharmacy Consult (Consult Rx Perform Med Rec) 1 each MISCELLANE ONCE PRN PRN Reason: Consult order Sodium Chloride (0.9 % Sodium Chloride Flush 3 Ml Syringe) 3 ml IVFLUSH QSHIFT [facility] Last Admin: 04/19/22 15:54 Dose: 3 ml Documented By: ROCÍO Tamsulosin HCl (Tamsulosin Hcl 0.4 Mg Capsule) 0.4 mg PO DAILY [facility] Last Admin: 04/19/22 08:23 Dose: 0.4 mg Documented By: ROCÍO Labs CBC & Chem 7: 04/19/22 05:31 04/19/22 05:31 Labs: Laboratory Results - last 24 hr 04/18/22 04/19/22 04/19/22 19:57 05:31 05:31 MCV 81.8 MCH 25.7 L MCHC 31.5 RDW 14.4 Plt Count 287 MPV 10.2 Absolute Nucleated RBC 0.000 Nucleated RBC % (auto) 0.0 ESR 115 H Anion Gap Estim Creat Clear Calc Estimated GFR POC Glucose 162 H Random Glucose Calcium C-Reactive Protein 04/19/22 04/19/22 04/19/22 05:31 07:03 11:14 MCV MCH MCHC RDW Plt Count MPV Absolute Nucleated RBC Nucleated RBC % (auto) ESR Anion Gap 16 Estim Creat Clear Calc 25.7 Estimated GFR 17 POC Glucose 77 186 H Random Glucose 78 D Calcium 8.4 C-Reactive Protein 7.04 H Procedures Date of Service Date of Service: 04/19/22 Progress Note: A&P Assessment and plan (1) Diabetic infection of left foot: Status: Acute Plan Not much improvement of the left foot wounds. Unable to obtain arteriograms due to continued kidney disease. Continue local care and antibiotics. Will add skin moisturizer. Time Spent With Patient Time: Total time spent is greater than 50% in coordination of care (as documented) at patient's floor/unit and/or counseling patient: Quality Stroke Does the patient have a stroke diagnosis?: No VTE Prior VTE?: No VTE Risk Level:: Surgical - moderate VTE Device Contraindication: N/A - Device Ordered VTE Drug Contraindication: N/A - Med Ordered
[2022-04-19 16:50] LABS: Glucose, Whole Blood 269 mg/dL (60-115)
[2022-04-19 20:48] LABS: Glucose, Whole Blood 286 mg/dL (60-115)
[2022-04-19] MEDS: hydrOXYzine HCL 25 MG TABLET PO (21:36)
[2022-04-19] MEDS: oxyCODONE HCl Immed Release 5 MG TABLET PO (23:38)
[2022-04-20] VITALS (10 sets, daily range): BP systolic 128–176; BP diastolic 38–83; PULSE 18–86; RESP 17–20; TEMP 36.1–36.6; O2SAT 95–99
[2022-04-20] MEDS: Heparin Sodium,Porcine 5,000 UNIT/ML VIAL 5000 UNIT SUBCUT (06:08)
[2022-04-20] MEDS: Omeprazole 20 MG CAPSULE.DR PO (06:08)
[2022-04-20 06:12] LABS: Anion Gap 14 (12-20); Blood Urea Nitrogen 56 mg/dL (9-16); Calcium 8.3 mg/dL (8.4-10.2); Carbon Dioxide 27 mmol/L (22-29); Chloride 102 mmol/L (96-108); Creatinine Clr Calc Pharmacy 25.8; Estimated Glomerular Filt Rate 17; Glucose Random 183 mg/dL (60-115); Potassium 5.1 mmol/L (3.3-5.1); Sodium 138 mmol/L (135-145)
[2022-04-20 08:00] LABS: Glucose, Whole Blood 142 mg/dL (60-115)
[2022-04-20] MEDS: carvediloL 25 MG TABLET PO ×2 (09:14→21:14)
[2022-04-20] MEDS: Ferrous Sulfate 324 MG TABLET.DR PO (09:15)
[2022-04-20] MEDS: methADONE HCl 20 MG/2 ML ORAL.CONC 65 MG PO (09:15)
[2022-04-20] MEDS: Tamsulosin HCL 0.4 MG CAPSULE PO (09:15)
[2022-04-20] MEDS: 0.9 % Sodium Chloride Flush 3 ML SYRINGE IVFLUSH (09:15)
[2022-04-20] MEDS: NIFEdipine ER 30 MG TAB.ER.24 90 MG PO (09:15)
[2022-04-20] MEDS: Insulin Glargine,Hum.rec.anlog 100 UNIT/ML 10 ML VIAL 40 UNIT SUBCUT (09:16)
--- NOTE | 2022-04-20 10:29 | HO.PM.IMPN ---
Subjective Subjective Date of Service: 04/20/22 Interval History: NPO for Kim today no fever foot pain controlled SCr stable at 3.6 Review of Systems Review of Systems: Yes all other systems are reviewed and are negative Physical Exam Vital Signs: Vital Signs: Last Vital Signs Temp 97.6 F 04/20/22 07:45 Pulse 18 L 04/20/22 07:45 Resp 18 04/20/22 07:45 BP 128/61 04/20/22 07:45 Pulse Ox 97 04/20/22 07:45 O2 Del Method 04/20/22 07:45 O2 Flow Rate 8 04/04/22 22:25 BMI result Body Mass Index 35.2 Gen: in no acute distress HEENT: sclera anicteric, moist mucus membranes Neck: supple Lungs: clear to auscultation bilaterally Heart: regular rate and rhythm, no murmurs Abd: soft, non-tender, non-distended Ext: no edema, L foot with dry surgical dressing Skin: warm/well-perfused Neuro: alert and oriented x3, no focal findings Psych: appropriate affect ? Objective Data Active Medications Acetaminophen (Acetaminophen 325 Mg Tablet) 650 mg PO Q6H PRN PRN Reason: Pain, Moderate (Pain Scale 4-6 Last Admin: 04/18/22 21:00 Dose: 650 mg Carvedilol (Carvedilol 25 Mg Tablet) 25 mg PO BID [facility]; Protocol Last Admin: 04/20/22 09:14 Dose: 25 mg Documented By: SHELTON Dextrose (Dextrose 50 % 25 Gm/50 Ml Syringe) 25 gm IVPUSH Q15M PRN; Protocol PRN Reason: per Hypoglycemia Standing Ord. Dextrose (Dextrose 50 % 25 Gm/50 Ml Syringe) 25 gm IVPUSH Q15M PRN; Protocol PRN Reason: per Hypoglycemia Standing Ord. Ferrous Sulfate (Ferrous Sulfate 324 Mg Tablet.) 324 mg PO DAILY [facility] Last Admin: 04/20/22 09:15 Dose: 324 mg Documented By: SHELTON Glucose (Glucose Gel 15 Gm Gel..Gram.) 15 gm PO Q15M PRN; Protocol PRN Reason: per Hypoglycemia Standing Ord. Glucose (Glucose Gel 15 Gm Gel..Gram.) 15 gm PO Q15M PRN; Protocol PRN Reason: per Hypoglycemia Standing Ord. Heparin Sodium (Porcine) (Heparin Sodium,Porcine 5,000 Unit/Ml Vial) 5,000 unit SUBCUT Q12H [facility] Last Admin: 04/20/22 06:08 Dose: 5,000 unit Documented By: MARCELL Hydroxyzine HCl (Hydroxyzine Hcl 25 Mg Tablet) 25 mg PO TID PRN PRN Reason: itching Last Admin: 04/19/22 21:36 Dose: 25 mg Documented By: JAYLAN Daptomycin 700 mg/ Sodium (Chloride) 64 mls @ 128 mls/hr IV Q48H [facility] Stop: 06/28/22 15:29 Last Infusion: 04/19/22 16:30 Dose: 0 mls/hr Documented By: ROCÍO Insulin Glargine (Insulin Glargine,Hum.Rec.Anlog 100 Unit/Ml 10 Ml Vial) 40 unit SUBCUT DAILY [facility] Last Admin: 04/20/22 09:16 Dose: 40 unit Documented By: SHELTON Insulin Human Lispro (Insulin Lispro 100 Unit/Ml 3 Ml Vial) 0 unit SUBCUT QIDACHS [facility]; Protocol Last Admin: 04/20/22 07:53 Dose: Not Given Documented By: SHELTON Non-Admin Reason: No Insulin Coverage Methadone HCl (Methadone Hcl 20 Mg/2 Ml Oral.Conc) 65 mg PO DAILY [facility] Last Admin: 04/20/22 09:15 Dose: 65 mg Documented By: SHELTON Multi-Ingred Cream/Lotion/Oil/Oint (Mineral Oil/Petrolatum,White 106 Gm Tube) 1 appl TOPICAL DAILY [facility]; Protocol Nifedipine (Nifedipine Er 30 Mg Tab.Er.24) 90 mg PO DAILY [facility]; Protocol Last Admin: 04/20/22 09:15 Dose: 90 mg Documented By: SHELTON Omeprazole (Omeprazole 20 Mg Capsule.Dr) 20 mg PO DAILY@0630 [facility] Last Admin: 04/20/22 06:08 Dose: 20 mg Documented By: MARCELL Ondansetron HCl (Ondansetron Hcl 4 Mg/2 Ml Vial) 4 mg IVPUSH Q8H PRN PRN Reason: Nausea and Vomiting Last Admin: 04/19/22 06:19 Dose: 4 mg Documented By: CANELO Pharmacy Consult (Consult Rx Perform Med Rec) 1 each MISCELLANE ONCE PRN PRN Reason: Consult order Sodium Chloride (0.9 % Sodium Chloride Flush 3 Ml Syringe) 3 ml IVFLUSH QSHIFT [facility] Last Admin: 04/20/22 09:15 Dose: 3 ml Documented By: SHELTON Tamsulosin HCl (Tamsulosin Hcl 0.4 Mg Capsule) 0.4 mg PO DAILY [facility] Last Admin: 04/20/22 09:15 Dose: 0.4 mg Documented By: SHELTON Labs CBC & Chem 7: 04/19/22 05:31 04/20/22 05:38 Labs: Laboratory Results - last 24 hr 04/19/22 04/19/22 04/19/22 11:14 16:35 20:39 Anion Gap Estim Creat Clear Calc Estimated GFR POC Glucose 186 H 269 H 286 H Random Glucose Calcium 04/20/22 04/20/22 05:38 07:44 Anion Gap 14 Estim Creat Clear Calc 25.8 Estimated GFR 17 POC Glucose 142 H Random Glucose 183 H D Calcium 8.3 L Assessment and Plan (1) Diabetic infection of left foot: Status: Acute (2) Acute kidney injury: Status: Acute (3) Osteomyelitis: Status: Acute (4) Diabetes type 2, controlled: Status: Acute Plan hospital d#17 56yo M with DM2 admitted for DM foot infection with gas gangrene, s/p amputation of 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 toe and debridement 04/04/22 # DM foot osteomyelitis/MRSA infection - daptomycin d#, Kim catheter today for home administration eventually - wound care per Dr Edwards: silver alginate dressing to wound followed by fluffed gauze and Kerlix, daily # PAD - hold statin while on daptomycin - outpt endovascular intervention once renal function recovers to GFR of 60+ per Dr Brown # AMY - refused biopsy, Nephrology following, 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 vs septic ATN; serologies pending [complements normal, IgA elevated]; continue to monitor BMP which has peaked and continues to slowly come down; increased nifedipine for better BP control # hyperK - resolved # HTN - continue carvedilol, increase dose of nifedipine for better control # anemia, mixed ACD/VICTORIA - monitor Hb, started Fe supplementation # DM2 - basal/bolus insulin # opioid dependence - continue methadone # VTE ppx: LMWH In my clinical judgment, the patient requires continued hospitalization for the following reasons: AMY, IV ABX Quality Stroke Does the patient have a stroke diagnosis?: No VTE Prior VTE?: No VTE Risk Level:: Surgical - moderate VTE Device Contraindication: N/A - Device Ordered VTE Drug Contraindication: N/A - Med Ordered
--- NOTE | 2022-04-20 10:35 | P.PNNP_ITS ---
Subjective Subjective Date of Service: 04/20/22 Interval history: Seen and examiend, events noted Physical Exam Vital Signs: Vital Signs: Last Vital Signs Temp 97.6 F 04/20/22 07:45 Pulse 18 L 04/20/22 07:45 Resp 18 04/20/22 07:45 BP 128/61 04/20/22 07:45 Pulse Ox 97 04/20/22 07:45 O2 Del Method 04/20/22 07:45 O2 Flow Rate 8 04/04/22 22:25 BMI result Body Mass Index 35.2 Const: Other: and no acute distress General: cooperative, healthy appearing, comfortable, no acute distress, acute distress mild and tired appearing Nutritional Appearance: well nourished Orientation/consciousness: oriented to person, oriented to place, oriented to time and patient oriented x3 Limitations: no limitations and ambulation with walker HEENT: Head: Yes normal to inspection, Yes normocephalic and Yes atraumatic Ears: hearing grossly normal bilaterally Face and sinus: Yes normal facial exam Mouth: Normal oral and palatal mucosa present and moist mucous membranes Teeth and gingiva: dentition normal Eyes: General: appearance normal, both eyes and all related structures Pupils: Equal, round and reactive pupils present EOM: EOMs intact bilaterally Neck: Neck: Yes normal visual inspection, Yes full ROM, Yes trachea midline and Yes supple Carotids: no bruits Chest: Chest palpation & inspection: normal inspection of the chest Resp: Other: clear to auscultation bilaterally no rales rhonchi or wheezes Effort & Inspection: normal respiratory effort, able to speak in complete sentences, no audible wheezes, no cough and no respiratory distress Auscultation: clear to auscultation bilaterally, no crackles, no rales, no rhonchi, no wheezes and diminished lung sounds Cardio: Other: no S4; positive S1-S2; no S3 murmurs rubs or gallops Rate: regular rate Rhythm: regular rhythm Heart sounds: S1 normal heart sound present and S2 normal heart sound present Bruits: no carotid bruits Peripheral pulses: dorsalis pedis present ( Bilateral DP signals) GI: Other: soft nontender -somewhat distended, with normoactive bowel sounds Inspection: Yes normal to inspection Palpation (GI): Soft to palpation and nontender : General: Yes no CVA tenderness Back/Spine/Pelvis: Back: no CVA tenderness Cervical Spine: normal cervical lordosis Thoracic/Lumbar Spine: thoracic and lumbar spine normal to inspection Skin: Other: Warm, dry, no rash General skin exam: no rashes or lesions noted Wounds: no wounds and wounds noted ( Dressing clean dry intact) Hair: normal Neuro: General: oriented to person, oriented to place, oriented to time, patient oriented x3, tone normal, moves all extremities and CN's II-XI intact bilaterally Cranial nerves: Yes CN's II-XII intact bilaterally, Yes Equal, ro und and reactive pupils present and Yes Normal hearing present Cognition (Neuro): normal cognition Motor exam (neuro): 5/5 motor strength present throughout Extrem: Other: 2 plus left lower extremities edema; wrapped in Jeramie wrap General: Yes normal to inspection, Yes full ROM, Yes capillary refill normal, Yes no clubbing, cyanosis or edema, No clubbing, No cyanosis and No edema Psych: Appearance: grossly normal and well kempt Mental Status: mental status grossly normal Speech and movement: Normal speech and movement present Affect: normal affect Attitude: cooperative Thought process: Normal thought process present Objective Data Labs CBC & Chem 7: 04/19/22 05:31 04/20/22 05:38 Labs: Laboratory Results - last 24 hr 04/19/22 04/19/22 04/19/22 11:14 16:35 20:39 Sodium Potassium Chloride Carbon Dioxide Anion Gap BUN Creatinine Estim Creat Clear Calc Estimated GFR POC Glucose 186 H 269 H 286 H Random Glucose Calcium 04/20/22 04/20/22 05:38 07:44 Sodium 138 Potassium 5.1 Chloride 102 Carbon Dioxide 27 Anion Gap 14 BUN 56 H Creatinine 3.63 H Estim Creat Clear Calc 25.8 Estimated GFR 17 POC Glucose 142 H Random Glucose 183 H D Calcium 8.3 L Microbiology Microbiology Results: Microbiology 04/04/22 18:15 Blood - Venous Blood Culture - Final No growth after 5 days. 04/04/22 17:53 Blood - Venous Blood Culture - Final No growth after 5 days. 04/04/22 Unknown Foot Left Gram Stain - Final 04/04/22 Unknown Foot Left Routine Culture - Final Strep agalactiae (Grp B) Methicillin Res Staph Aureus Procedures Date of Service Date of Service: 04/20/22 Assessment & Plan Assessment and plan (1) Diabetic infection of left foot: Status: Acute (2) Acute kidney injury: Status: Acute Assessment and Plan: 1. Non-Oliguric AMY: DDx: ABx assoc ATN vs PIGN ( Infectius assoc GN) and the only kishore to distinguish is to do a kidny Bx and I expalined to hm it would impact Tx as we would look to give him steroids if it was a PIGN pattern of injury He is adamat refusing Bx and therefore will not give empiric steroids SCr grad decr is a good sign ( peak Scr 4.3--> 3.6)--today is pending; Sero thus far are neg/normal BSL SCr 1.0 on adm 2. Anemia 3. Osteo: off vanc; on dapto REC: cont to trqack renal func; avoid NToxins; will start epo; he willneed close outp t f/u avoid Pic line--needs lenz instaed goen AMY and ques of signif CKD (3) Osteomyelitis: Status: Acute (4) Anemia: Status: Acute Plan Check iron stores Low K diet Hold off biopsy Should continue to improve Keep BP 130 systolic Time Spent With Patient Time: Total time spent is greater than 50% in coordination of care (as documented) at patient's floor/unit and/or counseling patient: Progress Note: Quality Stroke Does the patient have a stroke diagnosis?: No
[2022-04-20 11:24] LABS: Glucose, Whole Blood 145 mg/dL (60-115)
[2022-04-20 12:52] LABS: Myeloperoxidase Antibody <1.0 AI; Proteinase 3 PR3 Antibodies <1.0 AI
[2022-04-20 14:20] LABS: Glucose, Whole Blood 172 mg/dL (60-115)
--- NOTE | 2022-04-20 14:36 | PC.NURSE ---
report given to michelle osorio rn at this time.
[2022-04-20] MEDS: Lidocaine HCl 2 % 20 ML VIAL 5 ML SUBCUT (17:28)
[2022-04-20 18:08] LABS: Glucose, Whole Blood 104 mg/dL (60-115)
[2022-04-20 21:01] LABS: Glucose, Whole Blood 148 mg/dL (60-115)
[2022-04-21] MEDS: 0.9 % Sodium Chloride Flush 3 ML SYRINGE IVFLUSH ×3 (00:11→15:57)
[2022-04-21 04:00] VITALS: BP 157/73; PULSE 83; RESP 17; TEMP 36.3; O2SAT 98
[2022-04-21] MEDS: Omeprazole 20 MG CAPSULE.DR PO (05:47)
[2022-04-21] MEDS: Heparin Sodium,Porcine 5,000 UNIT/ML VIAL 5000 UNIT SUBCUT ×2 (05:48→17:22)
[2022-04-21 06:55] LABS: Anion Gap 17 (12-20); Blood Urea Nitrogen 54 mg/dL (9-16); Calcium 9.1 mg/dL (8.4-10.2); Carbon Dioxide 26 mmol/L (22-29); Chloride 101 mmol/L (96-108); Creatinine Clr Calc Pharmacy 25.7; Estimated Glomerular Filt Rate 17; Glucose Random 214 mg/dL (60-115); Potassium 5.6 mmol/L (3.3-5.1); Sodium 138 mmol/L (135-145)
[2022-04-21 07:20] LABS: Glucose, Whole Blood 233 mg/dL (60-115)
[2022-04-21 07:50] VITALS: BP 139/67; PULSE 83; RESP 18; TEMP 36.8; O2SAT 94
[2022-04-21] MEDS: Insulin Glargine,Hum.rec.anlog 100 UNIT/ML 10 ML VIAL 40 UNIT SUBCUT (07:52)
[2022-04-21] MEDS: Tamsulosin HCL 0.4 MG CAPSULE PO (07:52)
[2022-04-21] MEDS: NIFEdipine ER 30 MG TAB.ER.24 90 MG PO (07:52)
[2022-04-21] MEDS: Insulin Lispro 100 UNIT/ML 3 ML VIAL SUBCUT ×3 (07:52→21:28)
[2022-04-21] MEDS: Ferrous Sulfate 324 MG TABLET.DR PO (07:52)
[2022-04-21] MEDS: carvediloL 25 MG TABLET PO ×2 (07:52→21:27)
[2022-04-21] MEDS: methADONE HCl 20 MG/2 ML ORAL.CONC 65 MG PO (07:53)
[2022-04-21] MEDS: Sodium Zirconium Cyclosilicate 10 GM POWD.PACK PO (09:40)
--- NOTE | 2022-04-21 09:47 | HO.PM.IMPN ---
Subjective Subjective Date of Service: 04/21/22 Interval History: Hickmann placed yesterday without complications foot pain controlled no fever/chills SCr stable at 3.65 Review of Systems Review of Systems: Yes all other systems are reviewed and are negative Physical Exam Vital Signs: Vital Signs: Last Vital Signs Temp 98.2 F 04/21/22 07:50 Pulse 83 04/21/22 07:50 Resp 18 04/21/22 07:50 BP 139/67 04/21/22 07:50 Pulse Ox 94 04/21/22 07:50 O2 Del Method 04/21/22 07:50 O2 Flow Rate 8 04/04/22 22:25 BMI result Body Mass Index 35.2 Gen: in no acute distress HEENT: sclera anicteric, moist mucus membranes Neck: supple Lungs: clear to auscultation bilaterally Heart: regular rate and rhythm, no murmurs Abd: soft, non-tender, non-distended Ext: no edema, L foot with dry surgical dressing Skin: warm/well-perfused Neuro: alert and oriented x3, no focal findings Psych: appropriate affect Objective Data Active Medications Acetaminophen (Acetaminophen 325 Mg Tablet) 650 mg PO Q6H PRN PRN Reason: Pain, Moderate (Pain Scale 4-6 Last Admin: 04/18/22 21:00 Dose: 650 mg Carvedilol (Carvedilol 25 Mg Tablet) 25 mg PO BID [facility]; Protocol Last Admin: 04/21/22 07:52 Dose: 25 mg Documented By: BRAD Dextrose (Dextrose 50 % 25 Gm/50 Ml Syringe) 25 gm IVPUSH Q15M PRN; Protocol PRN Reason: per Hypoglycemia Standing Ord. Dextrose (Dextrose 50 % 25 Gm/50 Ml Syringe) 25 gm IVPUSH Q15M PRN; Protocol PRN Reason: per Hypoglycemia Standing Ord. Ferrous Sulfate (Ferrous Sulfate 324 Mg Tablet.) 324 mg PO DAILY [facility] Last Admin: 04/21/22 07:52 Dose: 324 mg Documented By: BRAD Glucose (Glucose Gel 15 Gm Gel..Gram.) 15 gm PO Q15M PRN; Protocol PRN Reason: per Hypoglycemia Standing Ord. Glucose (Glucose Gel 15 Gm Gel..Gram.) 15 gm PO Q15M PRN; Protocol PRN Reason: per Hypoglycemia Standing Ord. Heparin Sodium (Porcine) (Heparin Sodium,Porcine 5,000 Unit/Ml Vial) 5,000 unit SUBCUT Q12H [facility] Last Admin: 04/21/22 05:48 Dose: 5,000 unit Documented By: MARCELL Hydroxyzine HCl (Hydroxyzine Hcl 25 Mg Tablet) 25 mg PO TID PRN PRN Reason: itching Last Admin: 04/19/22 21:36 Dose: 25 mg Documented By: JAYLAN Daptomycin 700 mg/ Sodium (Chloride) 64 mls @ 128 mls/hr IV Q48H [facility] Stop: 06/28/22 15:29 Last Infusion: 04/19/22 16:30 Dose: 0 mls/hr Documented By: ROCÍO Insulin Glargine (Insulin Glargine,Hum.Rec.Anlog 100 Unit/Ml 10 Ml Vial) 40 unit SUBCUT DAILY [facility] Last Admin: 04/21/22 07:52 Dose: 40 unit Documented By: BRAD Insulin Human Lispro (Insulin Lispro 100 Unit/Ml 3 Ml Vial) 0 unit SUBCUT QIDACHS [facility]; Protocol Last Admin: 04/21/22 07:52 Dose: 6 unit Documented By: BRAD Methadone HCl (Methadone Hcl 20 Mg/2 Ml Oral.Conc) 65 mg PO DAILY [facility] Last Admin: 04/21/22 07:53 Dose: 65 mg Documented By: BRAD Multi-Ingred Cream/Lotion/Oil/Oint (Mineral Oil/Petrolatum,White 106 Gm Tube) 1 appl TOPICAL DAILY [facility]; Protocol Last Admin: 04/21/22 07:54 Dose: Not Given Documented By: BRAD Non-Admin Reason: Patient Refused Nifedipine (Nifedipine Er 30 Mg Tab.Er.24) 90 mg PO DAILY [facility]; Protocol Last Admin: 04/21/22 07:52 Dose: 90 mg Documented By: BRAD Omeprazole (Omeprazole 20 Mg Capsule.) 20 mg PO DAILY@0630 [facility] Last Admin: 04/21/22 05:47 Dose: 20 mg Documented By: MARCELL Ondansetron HCl (Ondansetron Hcl 4 Mg/2 Ml Vial) 4 mg IVPUSH Q8H PRN PRN Reason: Nausea and Vomiting Last Admin: 04/19/22 06:19 Dose: 4 mg Documented By: CANELO Pharmacy Consult (Consult Rx Perform Med Rec) 1 each MISCELLANE ONCE PRN PRN Reason: Consult order Sodium Chloride (0.9 % Sodium Chloride Flush 3 Ml Syringe) 3 ml IVFLUSH QSHIFT [facility] Last Admin: 04/21/22 07:53 Dose: 3 ml Documented By: BRAD Tamsulosin HCl (Tamsulosin Hcl 0.4 Mg Capsule) 0.4 mg PO DAILY [facility] Last Admin: 04/21/22 07:52 Dose: 0.4 mg Documented By: BRAD Labs CBC & Chem 7: 04/19/22 05:31 04/21/22 06:06 Labs: Laboratory Results - last 24 hr 04/15/22 04/20/22 04/20/22 06:34 11:17 14:15 Anion Gap Estim Creat Clear Calc Estimated GFR POC Glucose 145 H 172 H Random Glucose Calcium Proteinase 3 (PR3) Ab <1.0 Myeloperoxidase Ab <1.0 04/20/22 04/20/22 04/21/22 18:00 20:57 06:06 Anion Gap 17 Estim Creat Clear Calc 25.7 Estimated GFR 17 POC Glucose 104 148 H Random Glucose 214 H Calcium 9.1 D Proteinase 3 (PR3) Ab Myeloperoxidase Ab 04/21/22 06:56 Anion Gap Estim Creat Clear Calc Estimated GFR POC Glucose 233 H Random Glucose Calcium Proteinase 3 (PR3) Ab Myeloperoxidase Ab Assessment and Plan (1) Diabetic infection of left foot: Status: Acute (2) Acute kidney injury: Status: Acute (3) Osteomyelitis: Status: Acute (4) Diabetes type 2, controlled: Status: Acute Plan hospital d#18 56yo M with DM2 admitted for DM foot infection with gas gangrene, s/p amputation of L 4th toe and debridement 04/04/22 # DM foot osteomyelitis/MRSA infection - daptomycin d#, Kim catheter placed 04/20/22 in anticipation of home ABX administration and possible need for HD someday - wound care per Dr Edwards: silver alginate dressing to wound followed by fluffed gauze and Kerlix, daily; needs surgery clinic f/u # PAD - hold statin while on daptomycin - outpt endovascular intervention once renal function recovers to GFR of 60+ per Dr Brown # AMY - refused biopsy, Nephrology following, 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 vs septic ATN; serologies done [complements normal, IgA elevated, ANCA negative, cryoglobulin pending]; continue to monitor BMP which has peaked and continues to slowly come down; increased nifedipine for better BP control # hyperK - give 1 dose SZC and recheck BMP in AM # HTN - continue carvedilol, increased nifedipine for better control # anemia, mixed ACD/VICTORIA - monitor Hb, started Fe supplementation # DM2 - basal/bolus insulin # opioid dependence - continue methadone # VTE ppx: LMWH # dispo: anticipate home with VNA once services can be arranged In my clinical judgment, the patient requires continued hospitalization for the following reasons: AMY, IV ABX Quality Stroke Does the patient have a stroke diagnosis?: No VTE Prior VTE?: No VTE Risk Level:: Surgical - moderate VTE Device Contraindication: N/A - Device Ordered VTE Drug Contraindication: N/A - Med Ordered
--- NOTE | 2022-04-21 09:50 | W.MHC.F2F ---
Service Date Service Date: 04/21/22 Encounter Date of encounter: 04/21/22 Reasons for Services Signs and symptoms assessed: left diabetic foot osteomyelitis/gas gangrene Reason for shelter: wound care, administration of IV, SQ, or IM injection and central line care Reason for physical therapy: home safety and mobility, therapeutic exercises, restore joint function, gait/transfer training, assess need for DME, ADL training and energy conservation MD Overseeing Care: Twan Nunez Homebound: Leaving the home is medically contraindicated at this time without the asist of a device and/or another person due th the listed conditions above and below. Reason homebound: immunosuppression / infection risk Homebound supporting statement: needs IV daptomycin for definitive treatment of infection needs daily wound care for surgical wound Certification: Based on the above findings, I certify that this patient is confined to the home and needs intermittent shelter care, physical therapy and/or speech therapy, or continues to need occupational therapy. The patient is under my care, and I have initiated the establishment of the plan of care. The patient will be followed by a physician who will periodically review the plan of care.
[2022-04-21 11:07] LABS: Glucose, Whole Blood 200 mg/dL (60-115)
--- NOTE | 2022-04-21 11:10 | P.PNNP_ITS ---
Subjective Subjective Date of Service: 04/21/22 Interval history: Seen and examined, events noted Physical Exam Vital Signs: Vital Signs: Last Vital Signs Temp 98.2 F 04/21/22 07:50 Pulse 83 04/21/22 07:50 Resp 18 04/21/22 07:50 BP 139/67 04/21/22 07:50 Pulse Ox 94 04/21/22 07:50 O2 Del Method 04/21/22 07:50 O2 Flow Rate 8 04/04/22 22:25 BMI result Body Mass Index 35.2 Const: Other: and no acute distress General: cooperative, healthy appearing, comfortable, no acute distress, acute distress mild and tired appearing Nutritional Appearance: well nourished Orientation/consciousness: oriented to person, oriented to place, oriented to time and patient oriented x3 Limitations: no limitations and ambulation with walker HEENT: Head: Yes normal to inspection, Yes normocephalic and Yes atraumatic Ears: hearing grossly normal bilaterally Face and sinus: Yes normal facial exam Mouth: Normal oral and palatal mucosa present and moist mucous membranes Teeth and gingiva: dentition normal Eyes: General: appearance normal, both eyes and all related structures Pupils: Equal, round and reactive pupils present EOM: EOMs intact bilaterally Neck: Neck: Yes normal visual inspection, Yes full ROM, Yes trachea midline and Yes supple Carotids: no bruits Chest: Chest palpation & inspection: normal inspection of the chest Resp: Other: clear to auscultation bilaterally no rales rhonchi or wheezes Effort & Inspection: normal respiratory effort, able to speak in complete sentences, no audible wheezes, no cough and no respiratory distress Auscultation: clear to auscultation bilaterally, no crackles, no rales, no rhonchi, no wheezes and diminished lung sounds Cardio: Other: no S4; positive S1-S2; no S3 murmurs rubs or gallops Rate: regular rate Rhythm: regular rhythm Heart sounds: S1 normal heart sound present and S2 normal heart sound present Bruits: no carotid bruits Peripheral pulses: dorsalis pedis present ( Bilateral DP signals) GI: Other: soft nontender -somewhat distended, with normoactive bowel sounds Inspection: Yes normal to inspection Palpation (GI): Soft to palpation and nontender : General: Yes no CVA tenderness Back/Spine/Pelvis: Back: no CVA tenderness Cervical Spine: normal cervical lordosis Thoracic/Lumbar Spine: thoracic and lumbar spine normal to inspection Skin: Other: Warm, dry, no rash General skin exam: no rashes or lesions noted Wounds: no wounds and wounds noted ( Dressing clean dry intact) Hair: normal Neuro: General: oriented to person, oriented to place, oriented to time, patient oriented x3, tone normal, moves all extremities and CN's II-XI intact bilaterally Cranial nerves: Yes CN's II-XII intact bilaterally, Yes Equal, ro und and reactive pupils present and Yes Normal hearing present Cognition (Neuro): normal cognition Motor exam (neuro): 5/5 motor strength present throughout Extrem: Other: 2 plus left lower extremities edema; wrapped in Jeramie wrap General: Yes normal to inspection, Yes full ROM, Yes capillary refill normal, Yes no clubbing, cyanosis or edema, No clubbing, No cyanosis and No edema Psych: Appearance: grossly normal and well kempt Mental Status: mental status grossly normal Speech and movement: Normal speech and movement present Affect: normal affect Attitude: cooperative Thought process: Normal thought process present Objective Data Labs CBC & Chem 7: 04/19/22 05:31 04/21/22 06:06 Labs: Laboratory Results - last 24 hr 04/15/22 04/20/22 04/20/22 06:34 11:17 14:15 Sodium Potassium Chloride Carbon Dioxide Anion Gap BUN Creatinine Estim Creat Clear Calc Estimated GFR POC Glucose 145 H 172 H Random Glucose Calcium Proteinase 3 (PR3) Ab <1.0 Myeloperoxidase Ab <1.0 04/20/22 04/20/22 04/21/22 18:00 20:57 06:06 Sodium 138 Potassium 5.6 H Chloride 101 Carbon Dioxide 26 Anion Gap 17 BUN 54 H Creatinine 3.65 H Estim Creat Clear Calc 25.7 Estimated GFR 17 POC Glucose 104 148 H Random Glucose 214 H Calcium 9.1 D Proteinase 3 (PR3) Ab Myeloperoxidase Ab 04/21/22 04/21/22 06:56 10:57 Sodium Potassium Chloride Carbon Dioxide Anion Gap BUN Creatinine Estim Creat Clear Calc Estimated GFR POC Glucose 233 H 200 H Random Glucose Calcium Proteinase 3 (PR3) Ab Myeloperoxidase Ab Microbiology Microbiology Results: Microbiology 04/04/22 18:15 Blood - Venous Blood Culture - Final No growth after 5 days. 04/04/22 17:53 Blood - Venous Blood Culture - Final No growth after 5 days. 04/04/22 Unknown Foot Left Gram Stain - Final 04/04/22 Unknown Foot Left Routine Culture - Final Strep agalactiae (Grp B) Methicillin Res Staph Aureus Procedures Date of Service Date of Service: 04/21/22 Assessment & Plan Assessment and plan (1) Diabetic infection of left foot: Status: Acute (2) Acute kidney injury: Status: Acute Assessment and Plan: 1. Non-Oliguric AMY: DDx: ABx assoc ATN vs PIGN ( Infectius assoc GN) and the only way to distinguish is to do a kidny Bx and I expalined to hm it would impact Tx as we would look to give him steroids if it was a PIGN pattern of injury He is adamat refusing Bx and therefore will not give empiric steroids SCr grad decr is a good sign ( peak Scr 4.3--> 3.6)-- Sero thus far are neg/no rmal BSL SCr 1.0 on adm 2. Anemia 3. Osteo: off vanc; on dapto 4. HyperK: REC: lokelma today and low K diet; cont to track renal func; avoid NToxins; will start epo; he will need close outp t f/u avoid Pic line--lenz place (3) Osteomyelitis: Status: Acute (4) Anemia: Status: Acute Plan Check iron stores Low K diet Hold off biopsy Should continue to improve Keep BP 130 systolic Time Spent With Patient Time: Total time spent is greater than 50% in coordination of care (as documented) at patient's floor/unit and/or counseling patient: Progress Note: Quality Stroke Does the patient have a stroke diagnosis?: No
[2022-04-21 11:49] VITALS: BP 124/63; PULSE 80; RESP 18; TEMP 36.2; O2SAT 99
--- NOTE | 2022-04-21 14:29 | MHC.CM.PN ---
Addendum entered by Brittany Lemus 04/22/22 11:46: Confirmed plan with patient this AM and RN also at bedside. Original Note: Plan for pt to d/c 04/22 w/ [facility] for IV infusion and [facility] for wound care. Pt's son to transport @ d/c IMM completed IV abts orders signed by and [place] to [facility] [place] 04[place]23 [facility] to do teach w/ pt and family @ 3pm bedside 04/21
[2022-04-21] MEDS: DAPTOmycin 700 MG in 0.9 % Sodium Chloride 50 ML 128 MG IV (15:56)
[2022-04-21 16:00] VITALS: BP 136/79; PULSE 85; RESP 17; TEMP 36.6; O2SAT 98
[2022-04-21 16:32] LABS: Glucose, Whole Blood 113 mg/dL (60-115)
[2022-04-21] MEDS: Heparin Sodium,Porcine Flush 50 UNITS, 0.9 % Sodium Chloride Flush 5 ML IVFLUSH (17:24)
[2022-04-21 19:11] VITALS: BP 120/61; PULSE 87; RESP 18; TEMP 36.3; O2SAT 98
[2022-04-21 20:10] LABS: Glucose, Whole Blood 187 mg/dL (60-115)
[2022-04-21] MEDS: Acetaminophen 325 MG TABLET 650 MG PO (21:28)
--- NOTE | 2022-04-21 22:31 | PC.NURSE ---
Patient is moaning and crying , stated that he has throbbing pain to his left leg from the toes up to his upper leg.medicated with Tylenol 650 mg po ,pt reported to relief. Message was sent to DR Rust regarding the pt pain .
[2022-04-21 23:24] VITALS: BP 123/60; PULSE 79; RESP 18; TEMP 36.2; O2SAT 96
[2022-04-22 03:44] VITALS: BP 110/55; PULSE 71; RESP 16; TEMP 36.6; O2SAT 97
[2022-04-22] MEDS: Heparin Sodium,Porcine 5,000 UNIT/ML VIAL 5000 UNIT SUBCUT (05:57)
[2022-04-22] MEDS: Omeprazole 20 MG CAPSULE.DR PO (05:57)
[2022-04-22 07:10] LABS: Anion Gap 15 (12-20); Blood Urea Nitrogen 54 mg/dL (9-16); Calcium 8.7 mg/dL (8.4-10.2); Carbon Dioxide 26 mmol/L (22-29); Chloride 104 mmol/L (96-108); Creatinine Clr Calc Pharmacy 25.5; Estimated Glomerular Filt Rate 17; Glucose Random 97 mg/dL (60-115); Potassium 5.1 mmol/L (3.3-5.1); Sodium 140 mmol/L (135-145)
[2022-04-22 07:20] LABS: Glucose, Whole Blood 75 mg/dL (60-115)
[2022-04-22 07:31] VITALS: BP 135/64; PULSE 76; RESP 20; TEMP 36.6; O2SAT 98
[2022-04-22] MEDS: methADONE HCl 20 MG/2 ML ORAL.CONC 65 MG PO (08:55)
[2022-04-22] MEDS: NIFEdipine ER 30 MG TAB.ER.24 90 MG PO (08:56)
[2022-04-22] MEDS: Tamsulosin HCL 0.4 MG CAPSULE PO (08:56)
[2022-04-22] MEDS: Ferrous Sulfate 324 MG TABLET.DR PO (08:56)
[2022-04-22] MEDS: carvediloL 25 MG TABLET PO (08:56)
[2022-04-22] MEDS: Insulin Glargine,Hum.rec.anlog 100 UNIT/ML 10 ML VIAL 40 UNIT SUBCUT (08:57)
[2022-04-22] MEDS: Heparin Sodium,Porcine Flush 50 UNITS, 0.9 % Sodium Chloride Flush 5 ML IVFLUSH (08:58)
--- NOTE | 2022-04-22 10:44 | P.PNNP_ITS ---
Subjective Subjective Date of Service: 04/22/22 Interval history: Seen and examined, events noted Physical Exam Vital Signs: Vital Signs: Last Vital Signs Temp 97.8 F 04/22/22 07:31 Pulse 76 04/22/22 07:31 Resp 20 04/22/22 07:31 BP 135/64 04/22/22 07:31 Pulse Ox 98 04/22/22 07:31 O2 Del Method 04/22/22 07:31 O2 Flow Rate 8 04/04/22 22:25 BMI result Body Mass Index 35.2 Const: Other: and no acute distress General: cooperative, healthy appearing, comfortable, no acute distress, acute distress mild and tired appearing Nutritional Appearance: well nourished Orientation/consciousness: oriented to person, oriented to place, oriented to time and patient oriented x3 Limitations: no limitations and ambulation with walker HEENT: Head: Yes normal to inspection, Yes normocephalic and Yes atraumatic Ears: hearing grossly normal bilaterally Face and sinus: Yes normal facial exam Mouth: Normal oral and palatal mucosa present and moist mucous membranes Teeth and gingiva: dentition normal Eyes: General: appearance normal, both eyes and all related structures Pupils: Equal, round and reactive pupils present EOM: EOMs intact bilaterally Neck: Neck: Yes normal visual inspection, Yes full ROM, Yes trachea midline and Yes supple Carotids: no bruits Chest: Chest palpation & inspection: normal inspection of the chest Resp: Other: clear to auscultation bilaterally no rales rhonchi or wheezes Effort & Inspection: normal respiratory effort, able to speak in complete sentences, no audible wheezes, no cough and no respiratory distress Auscultation: clear to auscultation bilaterally, no crackles, no rales, no rhonchi, no wheezes and diminished lung sounds Cardio: Other: no S4; positive S1-S2; no S3 murmurs rubs or gallops Rate: regular rate Rhythm: regular rhythm Heart sounds: S1 normal heart sound present and S2 normal heart sound present Bruits: no carotid bruits Peripheral pulses: dorsalis pedis present ( Bilateral DP signals) GI: Other: soft nontender -somewhat distended, with normoactive bowel sounds Inspection: Yes normal to inspection Palpation (GI): Soft to palpation and nontender : General: Yes no CVA tenderness Back/Spine/Pelvis: Back: no CVA tenderness Cervical Spine: normal cervical lordosis Thoracic/Lumbar Spine: thoracic and lumbar spine normal to inspection Skin: Other: Warm, dry, no rash General skin exam: no rashes or lesions noted Wounds: no wounds and wounds noted ( Dressing clean dry intact) Hair: normal Neuro: General: oriented to person, oriented to place, oriented to time, patient oriented x3, tone normal, moves all extremities and CN's II-XI intact bilaterally Cranial nerves: Yes CN's II-XII intact bilaterally, Yes Equal, ro und and reactive pupils present and Yes Normal hearing present Cognition (Neuro): normal cognition Motor exam (neuro): 5/5 motor strength present throughout Extrem: Other: 2 plus left lower extremities edema; wrapped in Jeramie wrap General: Yes normal to inspection, Yes full ROM, Yes capillary refill normal, Yes no clubbing, cyanosis or edema, No clubbing, No cyanosis and No edema Psych: Appearance: grossly normal and well kempt Mental Status: mental status grossly normal Speech and movement: Normal speech and movement present Affect: normal affect Attitude: cooperative Thought process: Normal thought process present Objective Data Labs CBC & Chem 7: 04/19/22 05:31 04/22/22 06:02 Labs: Laboratory Results - last 24 hr 04/21/22 04/21/22 04/21/22 10:57 16:05 20:05 Sodium Potassium Chloride Carbon Dioxide Anion Gap BUN Creatinine Estim Creat Clear Calc Estimated GFR POC Glucose 200 H 113 187 H Random Glucose Calcium 04/22/22 04/22/22 06:02 07:17 Sodium 140 Potassium 5.1 Chloride 104 Carbon Dioxide 26 Anion Gap 15 BUN 54 H Creatinine 3.67 H Estim Creat Clear Calc 25.5 Estimated GFR 17 POC Glucose 75 Random Glucose 97 D Calcium 8.7 Microbiology Microbiology Results: Microbiology 04/04/22 18:15 Blood - Venous Blood Culture - Final No growth after 5 days. 04/04/22 17:53 Blood - Venous Blood Culture - Final No growth after 5 days. 04/04/22 Unknown Foot Left Gram Stain - Final 04/04/22 Unknown Foot Left Routine Culture - Final Strep agalactiae (Grp B) Methicillin Res Staph Aureus Procedures Date of Service Date of Service: 04/22/22 Assessment & Plan Assessment and plan (1) Diabetic infection of left foot: Status: Acute (2) Acute kidney injury: Status: Acute Assessment and Plan: 1. Non-Oliguric AMY: DDx: ABx assoc ATN vs PIGN ( Infectius assoc GN) and the only way to distinguish is to do a kidny Bx and I expalined to hm it would impact Tx as we would look to give him steroids if it was a PIGN pattern of injury He is adamat refusing Bx and therefore will not give empiric steroids SCr grad decr is a good sign ( peak Scr 4.3--> 3.6)-- Sero thus far are neg/normal BSL SCr 1.0 on adm 2. Anemia 3. Osteo: off vanc; on dapto 4. HyperK: controlled REC: ; cont to track renal func whih can be done as oupt; avoid NToxins; will start epo; he will need close outp t f/u avoid Pic line--lenz placed (3) Osteomyelitis: Status: Acute (4) Anemia: Status: Acute Plan Check iron stores Low K diet Hold off biopsy Should continue to improve Keep BP 130 systolic Time Spent With Patient Time: Total time spent is greater than 50% in coordination of care (as documented) at patient's floor/unit and/or counseling patient: Progress Note: Quality Stroke Does the patient have a stroke diagnosis?: No
[2022-04-22 11:04] LABS: Glucose, Whole Blood 161 mg/dL (60-115)
--- NOTE | 2022-04-22 11:39 | PM.DS ---
DS: Providers Provider Date of Service: 04/22/22 Date of admission: 04/04/22 18:50 Date of discharge: 04/22/22 Primary care physician: Twan Nunez MD Consults: 04/05/22 09:04 Consult to Hospitalist Routine Consulting Provider: Hospitalist Reason For Exam: Diabetes, med management 04/05/22 10:56 Consult to Infectious Diseases Routine Consulting Provider: Namrata De León Reason for consultation: diabetic foot infection 04/05/22 14:37 Consult to Vascular Surgery Routine Consulting Provider: Guy Brown Reason for consultation: Diabetic gangrene left foot, s/p 4th toe amputation 04/06/22 06:40 Consult to Urology Routine Consulting Provider: Johnny Chung Reason for consultation: urine retension 04/07/22 07:13 Consult to Nephrology Routine Consulting Provider: Twan Marley Reason for consultation: shauna Has provider been notified: No DS: Diagnosis Discharge Diagnosis (1) Diabetic infection of left foot: Status: Acute (2) Acute kidney injury: Status: Acute (3) Osteomyelitis: Status: Acute (4) Anemia: Status: Acute DS: Summary Hospital Course Hospital Course: This is a 56 year old male with a PMH of insulin dependant DM and diabetic nephropathy, HTN, HLD, chronic methadone therapy who presented to [facility] on the evening of 04/04 with complaints of L foot drainage a nd discoloration. He was diagnosed with gas ganerene and was taken to the operative room emergently where he had amputation of the L 4th toe and debridement of the plantar foot infection. He has been treatment with vancomcyin/zoysn. Hospital Course Seen in consultation by Nephrology for a creatinine that peaked at 4.25. Over time creatinine has come down to new baseline of 3.6-3.8. Nephrology requested kidney biopsy however patient adamantly refuses. On 04/20/22 patient underwent successful insertion of a 5 K[place]z tunneled Kim catheter under fluoroscopy. He was also seen in consultation by Infectious Disease who recommended 42 days of daptomycin. D with discharge to home with [facility] follow-up to assist family in administration. He should follow-up with his PCP in 2 weeks Time Spent with Patient Time attestation: Total time spent providing and/or coordinating discharge services: Discharge coordination time: Greater than 30 minutes Quality: Safe Use of Opioids Does Pt have an Active Cancer Diagnosis on the Problem List?: No Quality: Stroke Does the patient have a stroke diagnosis?: No Physical Exam Vital Signs: Vital Signs: Last Vital Signs Temp 97.8 F 04/22/22 07:31 Pulse 76 04/22/22 07:31 Resp 20 04/22/22 07:31 BP 135/64 04/22/22 07:31 Pulse Ox 98 04/22/22 07:31 O2 Del Method 04/22/22 07:31 O2 Flow Rate 8 04/04/22 22:25 BMI result Body Mass Index 35.2 Const: Other: and no acute distress Resp: Other: clear to auscultation bilaterally no rales rhonchi or wheezes Cardio: Other: no S4; positive S1-S2; no S3 murmurs rubs or gallops GI: Other: soft nontender nondistended with normoactive bowel sounds Extrem: Other: mild left lower extremities edema; wrapped in Jeramie wrap DS: Data Data Completed and Pending Completed studies during hospitalization [Text1]: Pending at discharge 04/04/22 22:25 Surgical [PTH] Routine Labs on day of discharge: Laboratory Results - last 24 hr 04/21/22 04/21/22 04/22/22 16:05 20:05 06:02 Sodium 140 Potassium 5.1 Chloride 104 Carbon Dioxide 26 Anion Gap 15 BUN 54 H Creatinine 3.67 H Estim Creat Clear Calc 25.5 Estimated GFR 17 POC Glucose 113 187 H Random Glucose 97 D Calcium 8.7 04/22/22 04/22/22 07:17 11:00 Sodium Potassium Chloride Carbon Dioxide Anion Gap BUN Creatinine Estim Creat Clear Calc Estimated GFR POC Glucose 75 161 H Random Glucose Calcium Discharge Plan Discharge Patient Disposition: Home Health Service Discharge Diagnosis: Left diabetic foot osteomyelitis. Status post amputation of left 3rd toe Referrals: Twan Nunez MD [Primary Care Provider] - 1 Week Discharge Medications: New tamsulosin 0.4 mg Capsule 0.4 mg PO DAILY Qty: 30 0RF ferrous sulfate 324 mg (65 mg iron) Tablet,Delayed Release (Dr/Ec) 324 mg PO DAILY Qty: 30 0RF nifedipine 30 mg Tablet Extended Release 24hr 90 mg PO DAILY Qty: 30 0RF Protocol: Hold for SBP< HOLD for SBP < : 90 carvedilol 25 mg Tablet 25 mg PO BID Qty: 60 0RF Protocol: Hold for SBP/HR < HOLD for SBP < : 90 HOLD for HR < : 60 insulin glargine [Lantus U-100 Insulin] 100 unit/mL Solution 40 unit subcut DAILY Qty: 10 0RF oxycodone 10 mg tablet 10 mg PO Q8H MDD 30 PRN (Reason: pain (scale score 7-10)) Qty: 20 0RF Rx Instructions: Partial Fill upon patient request. Continued atorvastatin 10 mg tablet 1 tab PO DAILY lisinopril 20 mg tablet 20 mg PO DAILY omeprazole 20 mg capsule,delayed release(DR/EC) 20 mg PO DAILY insulin aspart U-100 [Novolog Flexpen U-100 Insulin] 100 unit/mL (3 mL) insulin pen 0 sliding scale dose SUBCUT QIDACHS Protocol: Insulin Correction Scale Less than or equal to 110 ---- Give (units): 0 111 to 150 Give (units): 0 151 to 200 Give (units): 2 201 to 250 Give (units): 4 251 to 300 Give (units): 6 301 to 350 Give (units): 8 Greater than 350 Give (units): 10 Call MD if Blood Glucose > : 350 insulin glargine [Lantus Solostar U-100 Insulin] 100 unit/mL (3 mL) insulin pen 20 - 30 unit subcut DAILY methadone 10 mg/5 mL Solution 65 mg PO DAILY hydroxyzine pamoate [Vistaril] 25 mg capsule 25 mg PO TID PRN (Reason: itching) Qty: 21 1RF Discontinued metformin 1,000 mg tablet 1,000 mg PO BID Discharge Orders: Discharge Order (Routine); Ordered 04/22/22 Ordered By: Da Hood Diet: Advance to usual diet Activity on Discharge: As tolerated Stand Alone Forms: Patient Portal Discharge page Care Plan Goals: Complete course of daptomycin as ordered Health Concerns: Continue all outpatient therapies; follow-up with her PCP in 2 weeks Plan of Treatment: Utilize oxycodone at bedtime for breakthrough pain Assessment: See discharge summary
[2022-04-22 11:51] VITALS: BP 129/61; PULSE 80; RESP 20; TEMP 36.6; O2SAT 97
[2022-04-22] MEDS: Insulin Lispro 100 UNIT/ML 3 ML VIAL SUBCUT (12:20)
--- NOTE | 2022-04-22 14:57 | MHC.CM.PN ---
LAST DOSE LETTER PROVIDED
[2022-04-23 16:36] LABS: Cryoglobulin, Qual NONE DETECTED ((NDT))
== END 2022-04-22 14:45 | disposition home health service (06) | DRG 255 ==
LOC: HO.ED 18:46 → HO.EDOVER 19:28 → HO.S3 23:25
PROVIDERS: Family Medicine; Hospitalist; Internal Medicine Nephrology; Physician Assistant Medical; Radiology Diagnostic Radiology; Surgery; Admitting Provider Surgery; Emergency Provider Internal Medicine; PCP Internal Medicine; Visit Provider Hospitalist
PROC: 0Y6W0Z0 Detachment at Left 4th Toe, Complete, Open Approach (ICD-10-PCS; principal; 2022-04-04 21:00)
PROC: 0JH63XZ Insertion of Tunneled Vascular Access Device into Chest Subcutaneous Tissue and Fascia, Percutaneous Approach (ICD-10-PCS; principal; 2022-04-20 14:10)
DX: E11.52 Type 2 diabetes mellitus with diabetic peripheral angiopathy with gangrene (principal); A48.0 Gas gangrene; N17.0 Acute kidney failure with tubular necrosis; F11.20 Opioid dependence, uncomplicated; L97.929 Non-pressure chronic ulcer of unspecified part of left lower leg with unspecified severity; M86.172 Other acute osteomyelitis, left ankle and foot; E78.5 Hyperlipidemia, unspecified; D63.8 Anemia in other chronic diseases classified elsewhere; R33.9 Retention of urine, unspecified; E87.5 Hyperkalemia; E11.21 Type 2 diabetes mellitus with diabetic nephropathy; B95.62 Methicillin resistant Staphylococcus aureus infection as the cause of diseases classified elsewhere; B95.1 Streptococcus, group B, as the cause of diseases classified elsewhere; E11.40 Type 2 diabetes mellitus with diabetic neuropathy, unspecified; I10 Essential (primary) hypertension; D50.9 Iron deficiency anemia, unspecified; Z20.822 Contact with and (suspected) exposure to COVID-19; Z79.4 Long term (current) use of insulin; Z79.899 Other long term (current) drug therapy; E11.69 Type 2 diabetes mellitus with other specified complication; E11.622 Type 2 diabetes mellitus with other skin ulcer
CPT/HCPCS: 36415; 36558; 71046; 73700; 80048; 80053; 80202; 81001; 82550; 82565; 82595; 82607; 82728; 82746; 82784; 82947; 83036; 83540; 83605; 83735; 83880; 84484; 85025; 85027; 85610; 85652; 85730; 86021; 86140; 86160; 86704; 86706; 86709; 86803; 87040; 87071; 87077; 87147; 87186; 87205; 87340; 87635; 88305; 88311; 93925; 93970; 99153; 99284; C1751; C1758; C1769; J0878; J1170; J1642; J1650; J2185; J2405; J2543; J2765; J3370

== ENCOUNTER 2022-05-12 17:07 | Inpatient (IN) | payer MEDICARE, MEDICAID, SELFPAY ==
--- NOTE | ~2022-05-12 | XR_ITS ---
EXAMINATION: XR FOOT, LEFT CLINICAL INFORMATION: Left foot infection COMPARISON: Left foot CT 04/04/2022 TECHNIQUE: AP, lateral, and oblique views of the left foot. FINDINGS: Extensive aggressive bone destruction involving the fourth and fifth phalanges, head and neck of the third and fourth metatarsals and base of the third proximal phalanx to a lesser degree consistent with osteomyelitis. There is extensive soft tissue gas in the forefoot consistent with gas-forming infection. Diffuse soft tissue swelling. Mild degenerative changes at the first MTP joint, great toe IP joint and midfoot. Large calcaneal spurs and extensive vascular calcifications XR/XR foot LT min 3V IMPRESSION: 1. Extensive osteomyelitis involving the distal third and fourth metatarsals and the third through fifth toes. 2. Tracking soft tissue gas consistent with gas-forming infection. 3. Extensive soft tissue swelling.
--- NOTE | ~2022-05-12 | US_ITS ---
EXAMINATION: US RETROPERITONEAL LIMITED (RENAL ONLY) CLINICAL INFORMATION: 8 TI. COMPARISON: None TECHNIQUE: Routine grayscale imaging of kidneys is performed. FINDINGS: RIGHT KIDNEY: 14.0 x 5.7 x 6.8 cm (SAG x AP x TRV). The kidney is normal in size, contour, and echogenicity. Renal cortical thickness is normal. No calculi or focal parenchymal lesions. No hydronephrosis. LEFT KIDNEY: 13.7 x 5.9 x 5.9 cm (SAG x AP x TRV). The kidney is normal in size, contour, and echogenicity. Renal cortical thickness is normal. No calculi or focal parenchymal lesions. No hydronephrosis. There is no lesion seen in the upper pole to correspond to the hypodense lesion on CT 01/29/2022 US/US renal BI IMPRESSION: Unremarkable renal ultrasound. Hypodense lesion seen in the upper pole right kidney is too small and may represent a hemorrhagic or proteinaceous cyst. It is not visualized by today ultrasound.
--- NOTE | ~2022-05-12 | IR_ITS ---
EXAMINATION: IR REMOVAL OF BONE CATHETER CLINICAL INFORMATION: Bone catheter not required as the antibiotic treatment is done. COMPARISON: None. IR/IR cvc remov tunnel wo prt/flange machine operator TECHNIQUE/FINDINGS/IMPRESSION: Patient was sitting in a wheelchair. The area of Bone catheter was exposed along the right upper chest. The dressing was removed. The area around the Bone catheter was cleaned in a sterile fashion. With sterile gloves on, the catheter was gently pulled. The cuff of the catheter came out easily. The area was then cleaned and a sterile dressing applied postprocedure. The catheter measured the same size as when it was inserted, 42 cm long.
[2022-05-12 17:16] VITALS: BP 118/76; PULSE 120; O2SAT 95
[2022-05-12 17:27] VITALS: BP 118/78; BP 161/73; PULSE 110; PULSE 118; RESP 18; TEMP 37.6; O2SAT 94; O2SAT 96; BMI 36.0
--- NOTE | 2022-05-12 17:46 | ECG_ITS ---
Test Reason : HYPERGLYCEMIA Blood Pressure : / mmHG Vent. Rate : 116 BPM Atrial Rate : 116 BPM P-R Int : 148 ms QRS Dur : 076 ms QT Int : 326 ms P-R-T Axes : 032 090 031 degrees QTc Int : 453 ms Sinus tachycardia Rightward axis Borderline ECG When compared with ECG of 01-FEB-2022 12:07, Heart rate has increased QRS axis Shifted right Referred By: Osvaldo Martinez Electronically Signed By:RAMIREZ EM
[2022-05-12 17:47] VITALS: BP 131/70; PULSE 116; RESP 15; O2SAT 99
[2022-05-12 17:50] LABS: Glucose, Whole Blood > 600 mg/dL (60-115)
[2022-05-12 17:50] LABS: Glucose, Whole Blood > 600 mg/dL (60-115)
--- NOTE | 2022-05-12 17:59 | ED.GENADULT ---
HPI - General Adult General Chief complaint: General Medical Stated complaint: HYPERGLYCEMIA Time Seen by Provider: 05/12/22 17:45 Source: patient, RN notes reviewed and old records reviewed Mode of arrival: wheelchair Limitations: other History of Present Illness HPI narrative: 56-year-old male noncompliant diabetic arrives the emergency department very unhappy and unpleasant keeps yelling about his . Patient has multiple visits and admissions to the hospital for chronic left diabetic foot infections he states that 3 weeks ago he had surgery on his left foot. ICC artery from the end of March he states his also had surgery patient comes in with a blood sugar over 600 he is unable to tell me he has never had diabetic ketoacidosis. Related Data Home Medications Medication Instructions Recorded Confirmed atorvastatin 10 mg tablet 1 tab PO DAILY 04/05/22 04/05/22 insulin aspart U-100 100 unit/mL 0 sliding scale dose subcut QIDACHS 04/05/22 04/05/22 (3 mL) subcutaneous pen (Novolog Flexpen U-100 Insulin aspart) insulin glargine 100 unit/mL (3 20 - 30 unit subcut DAILY 04/05/22 04/05/22 mL) subcutaneous pen (Lantus Solostar U-100 Insulin) lisinopril 20 mg tablet 20 mg PO DAILY 04/05/22 04/05/22 methadone 10 mg/5 mL oral solution 65 mg PO DAILY 04/05/22 04/05/22 omeprazole 20 mg capsule,delayed 20 mg PO DAILY 04/05/22 04/05/22 release daptomycin 500 mg intravenous mg IV 05/12/22 solution Previous Rx's Medication Instructions Recorded hydroxyzine pamoate 25 mg capsule 25 mg PO TID PRN itching #21 caps 08/31/21 (Vistaril) carvedilol 25 mg tablet 25 mg PO BID #60 tabs 04/22/22 ferrous sulfate 324 mg (65 mg 324 mg PO DAILY #30 tabs 04/22/22 iron) tablet,delayed release nifedipine 30 mg tablet,extended 90 mg PO DAILY #30 tabs 04/22/22 release 24 hr tamsulosin 0.4 mg capsule 0.4 mg PO DAILY #30 caps 04/22/22 Allergies Allergy/AdvReac Type Severity Reaction Status Date / Time No Known Allergies Allergy Verified 02/01/22 12:12 [No Known Allergies*] Review of Systems Review of Systems: Yes Unobtainable due to mental condition and Unobtainable due to mental status PMFSH Past Medical History Medical History Diabetes Opioid use disorder Social History Social History Household Members: Unknown / Unable to assess Housing: Unknown / Unable to assess Patient Tobacco Use Status: Never used Tobacco Advance Directives: No Advance Directives Information Provided: No service: No Current occupational status: disabled Physical Exam ED Vital Signs: Vital Signs - 24 hr 05/12/22 17:27 05/12/22 17:47 Temperature 99.7 F Pulse Rate 118 H 116 H Respiratory Rate 18 15 Blood Pressure 161/73 H 131/70 Pulse Oximetry 94 99 Oxygen Delivery Method Room Air Nasal Cannula Oxygen Flow Rate 2 BMI result Body Mass Index 36.0 Neurological exam: CN II- XII tested. Patient is alert and oriented to person place and time. Patient has no dysphagia or dysarthia, denies good vision in all four vision zelaya no nystagmus on exam, good strength to upper and lower extremities with normal reflexes to brachioradialis, wrist, patella and achilles.? Negative romberg, good finger to nose and heel to irwin.?? General: Well-appearing well-nourished in no signs of distress HEENT: Normocephalic atraumatic? Neck: No signs of JVD, no masses no tenderness or lymphadenopathy Cardiovascular: Regular rate and rhythm Respiratory: Clear to auscultation bilaterally Abdomen: Soft nontender no masses Extremities left foot malodorous stained dressing in place: Normal pedal pulses edematous red foot Skin: Dry warm no rashes Back: No tenderness full ROM Medical Decision Making MDM Narrative Medical decision making narrative: Concerned this patient is very sick with DKA and likely a left foot infection also patient for x-ray and get labs I need to get his potassium back before starting an insulin drip on this patient he is not taking his insulin for several weeks 1838 lab showed elevated white blood cell count as well as signs on the x-ray of osteomyelitis which the patient has had the past also the patient on vancomycin zosyn. I spoke with Dr. Santana who agreed the patient could nicolas admitted to medicine or ICU pending labs and will be followed as a consult. 1920 XR read by radiology agrees with osteomyelitis and patient with no DKA no acetone in blood with a anion gap of 16 will be safe for admission to the floor. I paged dr. Figueroa who agrees with the admission. Medical Records Medical records reviewed: Yes I reviewed the patient's medical records. Lab Data Lab results reviewed: Yes I reviewed the patient's lab results. Result diagrams: 05/12/22 18:08 05/12/22 18:08 Labs: Lab Results 05/12/22 05/12/22 05/12/22 Range/Units 17:39 17:45 18:08 WBC 16.4 H (4.8-10.8) X10*3/uL RBC 3.04 L (4.60-5.80) X10*6/uL Hgb 7.7 L (14.0-18.0) g/dl Hct 24.7 L (42.0-52.0) % MCV 81.3 (80.0-98.0) fL MCH 25.3 L (27.0-33.0) pg MCHC 31.2 (31.0-36.0) g/dl RDW 15.0 (11.0-16.0) % Plt Count 186 D (160-400) X10*3/uL MPV 11.1 (9.4-12.4) fL Immature Gran % (Auto) 0.6 H (0.0-0.4) % Neut % (Auto) 88.1 H (45-73) % Lymph % (Auto) 4.6 L (20-40) % [place] % (Auto) 6.4 (2-11) % Eos % (Auto) 0.1 (0-4) % Baso % (Auto) 0.2 (0-2) % Lymph # (Auto) 0.8 L (1.2-4.9) X10*3/uL [place] # (Auto) 1.1 (0.1-1.2) X10*3/uL Eos # (Auto) 0.0 (0.0-0.4) X10*3/uL Baso # (Auto) 0.0 (0.0-0.2) X10*3/uL Abs Immat Gran (auto) 0.09 H (0.00-0.03) X10*3/uL Absolute Neuts (auto) 14.4 H (2.0-8.3) x10*3/uL Absolute Nucleated RBC 0.000 (0.0-0.012) X10*3/uL Nucleated RBC % (auto) 0.0 (0.0-0.2) /100WBC Sodium (135-145) mmol/L Potassium (3.3-5.1) mmol/L Chloride (96-108) mmol/L Carbon Dioxide (22-29) mmol/L Anion Gap (12-20) BUN (9-16) mg/dL Creatinine (0.5-1.4) mg/dL Estim Creat Clear Calc Estimated GFR POC Glucose > 600 H* > 600 H* (60-115) mg/dL Random Glucose (60-115) mg/dL Lactic Acid (0.5-2.0) mmol/L Calcium (8.4-10.2) mg/dL Total Bilirubin (0.0-1.0) mg/dL Direct Bilirubin (0.0-0.5) mg/dL AST (5-37) U/L ALT (0-40) U/L Alkaline Phosphatase (39-117) U/L Total Protein (6.5-8.0) g/dL Albumin (3.5-5.0) g/dL Lipase (8-78) U/L Ethyl Alcohol mg/dL Acetone, Qual (Negative) COVID-19 (JOSE DAVID) (Negative) COVID-19 Clin Com 05/12/22 05/12/22 05/12/22 Range/Units 18:08 18:08 18:08 WBC (4.8-10.8) X10*3/uL RBC (4.60-5.80) X10*6/uL Hgb (14.0-18.0) g/dl Hct (42.0-52.0) % MCV (80.0-98.0) fL MCH (27.0-33.0) pg MCHC (31.0-36.0) g/dl RDW (11.0-16.0) % Plt Count (160-400) X10*3/uL MPV (9.4-12.4) fL Immature Gran % (Auto) (0.0-0.4) % Neut % (Auto) (45-73) % Lymph % (Auto) (20-40) % [place] % (Auto) (2-11) % Eos % (Auto) (0-4) % Baso % (Auto) (0-2) % Lymph # (Auto) (1.2-4.9) X10*3/uL [place] # (Auto) (0.1-1.2) X10*3/uL Eos # (Auto) (0.0-0.4) X10*3/uL Baso # (Auto) (0.0-0.2) X10*3/uL Abs Immat Gran (auto) (0.00-0.03) X10*3/uL Absolute Neuts (auto) (2.0-8.3) x10*3/uL Absolute Nucleated RBC (0.0-0.012) X10*3/uL Nucleated RBC % (auto) (0.0-0.2) /100WBC Sodium 132 L (135-145) mmol/L Potassium 4.5 (3.3-5.1) mmol/L Chloride 94 L (96-108) mmol/L Carbon Dioxide 27 (22-29) mmol/L Anion Gap 16 (12-20) BUN 32 H (9-16) mg/dL Creatinine 2.13 H (0.5-1.4) mg/dL Estim Creat Clear Calc 44.5 Estimated GFR 32 POC Glucose (60-115) mg/dL Random Glucose 775 H* (60-115) mg/dL Lactic Acid (0.5-2.0) mmol/L Calcium 8.7 (8.4-10.2) mg/dL Total Bilirubin 0.4 (0.0-1.0) mg/dL Direct Bilirubin 0.2 (0.0-0.5) mg/dL AST 11 (5-37) U/L ALT 15 (0-40) U/L Alkaline Phosphatase 116 (39-117) U/L Total Protein 7.8 (6.5-8.0) g/dL Albumin 3.3 L (3.5-5.0) g/dL Lipase 9 (8-78) U/L Ethyl Alcohol < 10 mg/dL Acetone, Qual Negative (Negative) COVID-19 (JOSE DAVID) Negative (Negative) COVID-19 Clin Com See Note 05/12/22 Range/Units 18:24 WBC (4.8-10.8) X10*3/uL RBC (4.60-5.80) X10*6/uL Hgb (14.0-18.0) g/dl Hct (42.0-52.0) % MCV (80.0-98.0) fL MCH (27.0-33.0) pg MCHC (31.0-36.0) g/dl RDW (11.0-16.0) % Plt Count (160-400) X10*3/uL MPV (9.4-12.4) fL Immature Gran % (Auto) (0.0-0.4) % Neut % (Auto) (45-73) % Lymph % (Auto) (20-40) % [place] % (Auto) (2-11) % Eos % (Auto) (0-4) % Baso % (Auto) (0-2) % Lymph # (Auto) (1.2-4.9) X10*3/uL [place] # (Auto) (0.1-1.2) X10*3/uL Eos # (Auto) (0.0-0.4) X10*3/uL Baso # (Auto) (0.0-0.2) X10*3/uL Abs Immat Gran (auto) (0.00-0.03) X10*3/uL Absolute Neuts (auto) (2.0-8.3) x10*3/uL Absolute Nucleated RBC (0.0-0.012) X10*3/uL Nucleated RBC % (auto) (0.0-0.2) /100WBC Sodium (135-145) mmol/L Potassium (3.3-5.1) mmol/L Chloride (96-108) mmol/L Carbon Dioxide (22-29) mmol/L Anion Gap (12-20) BUN (9-16) mg/dL Creatinine (0.5-1.4) mg/dL Estim Creat Clear Calc Estimated GFR POC Glucose (60-115) mg/dL Random Glucose (60-115) mg/dL Lactic Acid 1.0 (0.5-2.0) mmol/L Calcium (8.4-10.2) mg/dL Total Bilirubin (0.0-1.0) mg/dL Direct Bilirubin (0.0-0.5) mg/dL AST (5-37) U/L ALT (0-40) U/L Alkaline Phosphatase (39-117) U/L Total Protein (6.5-8.0) g/dL Albumin (3.5-5.0) g/dL Lipase (8-78) U/L Ethyl Alcohol mg/dL Acetone, Qual (Negative) COVID-19 (JOSE DAVID) (Negative) COVID-19 Clin Com ECG Data Attestation: I personally reviewed and interpreted this ECG as follows: Prior ECG tracings: available for review Interpretation: Rate 116 sinus tachycardia no signs of ischemia Critical Care Time Critical Care Time Critical Care Time: Yes Total Critical Care Time: 45 Attestation: Elevated blood sugar with concerns for DKA patient was found have normal labs and no signs of DKA but does have pretty advanced osteomyelitis requiring IV antibiotics and admission concerned the patient has been noncompliant with his outpatient antibiotics and insulin regime Discharge Plan Discharge Clinical Impression: Osteomyelitis, Diabetic infection of left foot, PAD (peripheral artery disease), Acute kidney injury, Anemia Patient Disposition: Admitted As Inpatient Prescriptions: No Action atorvastatin 10 mg tablet 1 tab PO DAILY lisinopril 20 mg tablet 20 mg PO DAILY omeprazole 20 mg capsule,delayed release(DR/EC) 20 mg PO DAILY insulin aspart U-100 [Novolog Flexpen U-100 Insulin] 100 unit/mL (3 mL) insulin pen 0 sliding scale dose SUBCUT QIDACHS Protocol: Insulin Correction Scale Less than or equal to 110 ---- Give (units): 0 111 to 150 Give (units): 0 151 to 200 Give (units): 2 201 to 250 Give (units): 4 251 to 300 Give (units): 6 301 to 350 Give (units): 8 Greater than 350 Give (units): 10 Call MD if Blood Glucose > : 350 insulin glargine [Lantus Solostar U-100 Insulin] 100 unit/mL (3 mL) insulin pen 20 - 30 unit subcut DAILY methadone 10 mg/5 mL Solution 65 mg PO DAILY tamsulosin 0.4 mg Capsule 0.4 mg PO DAILY Qty: 30 0RF ferrous sulfate 324 mg (65 mg iron) Tablet,Delayed Release (Dr/Ec) 324 mg PO DAILY Qty: 30 0RF nifedipine 30 mg Tablet Extended Release 24hr 90 mg PO DAILY Qty: 30 0RF Protocol: Hold for SBP< HOLD for SBP < : 90 carvedilol 25 mg Tablet 25 mg PO BID Qty: 60 0RF Protocol: Hold for SBP/HR < HOLD for SBP < : 90 HOLD for HR < : 60 daptomycin 500 mg recon soln IV hydroxyzine pamoate [Vistaril] 25 mg capsule 25 mg PO TID PRN (Reason: itching) Qty: 21 1RF
[2022-05-12 18:12] LABS: MANUAL DIFF FLAG NO
[2022-05-12 18:14] LABS: Basophils Percent Auto 0.2 % (0-2); Eosinophils Percent Auto 0.1 % (0-4); Hematocrit 24.7 % (42.0-52.0); Hemoglobin 7.7 g/dl (14.0-18.0); Imm Gran Abs Auto 0.09 X10*3/uL (0.00-0.03); Imm Gran Pct Auto 0.6 % (0.0-0.4); Lymphocytes Absolute Auto 0.8 X10*3/uL (1.2-4.9); Lymphocytes Percent Auto 4.6 % (20-40); Mean Corpuscular HGB Conc 31.2 g/dl (31.0-36.0); Mean Corpuscular Hemoglobin 25.3 pg (27.0-33.0); Mean Corpuscular Volume 81.3 fL (80.0-98.0); Mean Platelet Volume 11.1 fL (9.4-12.4); Monocytes Absolute Auto 1.1 X10*3/uL (0.1-1.2); Monocytes Percent Auto 6.4 % (2-11); Neutrophils Absolute Auto 14.4 x10*3/uL (2.0-8.3); Neutrophils Percent Auto 88.1 % (45-73); Platelet Count 186 X10*3/uL (160-400); Red Blood Count 3.04 X10*6/uL (4.60-5.80); White Blood Count 16.4 X10*3/uL (4.8-10.8)
[2022-05-12 18:26] LABS: Acetone, serum QL Negative (Negative)
[2022-05-12] MEDS: 0.9 % Sodium Chloride 1,000 ML 999 ML IV ×2 (18:36→22:26)
[2022-05-12 18:38] LABS: Alanine Aminotransferase 15 U/L (0-40); Albumin Level 3.3 g/dL (3.5-5.0); Alkaline Phosphatase 116 U/L (39-117); Anion Gap 16 (12-20); Aspartate Amino Transferase 11 U/L (5-37); Bilirubin Direct 0.2 mg/dL (0.0-0.5); Bilirubin Total 0.4 mg/dL (0.0-1.0); Blood Urea Nitrogen 32 mg/dL (9-16); COVID-19 Test Negative (Negative); Calcium 8.7 mg/dL (8.4-10.2); Carbon Dioxide 27 mmol/L (22-29); Chloride 94 mmol/L (96-108); Creatinine Clr Calc Pharmacy 44.5; Estimated Glomerular Filt Rate 32; Ethanol < 10 mg/dL; IDNOW Serial# 55D5AD1C; Lipase 9 U/L (8-78); Potassium 4.5 mmol/L (3.3-5.1); Sodium 132 mmol/L (135-145); Total Protein 7.8 g/dL (6.5-8.0)
[2022-05-12 18:43] LABS: Glucose Random 775 mg/dL (60-115)
[2022-05-12] MEDS: Piperacillin Sodium/Tazobactam 4.5 GM in 0.9 % Sodium Chloride 100 ML IV (18:48)
[2022-05-12 19:45] VITALS: BP 138/60; PULSE 109; RESP 15; TEMP 36.8; O2SAT 98
--- NOTE | 2022-05-12 19:49 | PHA.MEDREC ---
Pharmacy Consult ? Medication Reconciliation Pharmacy has completed the medication reconciliation. Patient is a very poor historian. Does not really know what he takes or when, just that he takes them . He has a nurse coming once a day that only help o help with the antibiotic. He did get that today. He says he did not get his methadone today, and got it yesterday from some place in [place]. I spoke to the patient's who is at rehab. She states he is 100% adherent to his meds and was able to go over some of his meds. She states nothing was changed from his discharge 2 weeks ago. Louis
[2022-05-12 19:53] LABS: C Reactive Protein 23.81 mg/dL (< or = 0.50)
--- NOTE | 2022-05-12 21:27 | PC.NURSE ---
Pt.'s 2100 POC taken by [facility] and was reading as TOO HIGH on POC machine (not reading an actual numerical value). Notified Hiro Crane MD of this POC results. Provider is aware, and this RN is currently awaiting new orders at this time.
[2022-05-12 21:37] LABS: Glucose, Whole Blood 599 mg/dL (60-115)
[2022-05-12 21:37] LABS: Glucose, Whole Blood > 600 mg/dL (60-115)
[2022-05-12 21:38] LABS: Erythrocyte Sedimentation Rate 124 MM/HR (0-15)
--- NOTE | 2022-05-12 21:38 | P.HPHOSP_ITS ---
History of Present Illness Date of Service: 05/12/22 Chief Complaint: foot wound Patient is very grumpy, does not on a communicate or talk to me, history is therefore is obtained mostly from ED physician This is a 56-year-old male with past medical history of diabetes and opioid use disorder, presents the hospital with complaints of left foot ulcer. Unclear for how many days, but patient apparently had a surgical intervention on the same wound in April and was discharged from the hospital on 04/22 after receiving treatment for AMY as well as the wound on his left foot, a recommendation was to continue daptomycin for 42 days per Infectious Disease. Patient returns stating worsening wound, draining, malodorous, and painful. Pain is 10/10. Home unable to obtain review of system is patient is not forthcoming with any answers On arrival to the ED patient hemodynamically stable with no significant abnormal vitals Labs are significant for WBC count of 16.4, hemoglobin of 7.7, hematocrit of 24.7, ESR of 124 (115 on previous admission), sodium of 132, creatinine of 2.13 which is around his baseline, glucose of 775, CRP of 23( 7 previously), X-ray of the foot shows acute osteomyelitis with extensive osteomyelitis involving the 3rd distal and 4th metatarsals on the 3rd through 5th toes. Tracking soft tissue gas consistent with gas-forming infection Patient started on IV antibiotics and will be admitted for further management Review of Systems Review of Systems: Yes Unobtainable due to mental status PMFSH Medical History (Updated 05/13/22 @ 06:27 by Brandi Crane MD) Chronic anemia CKD (chronic kidney disease) Diabetes Diabetic infection of left foot Opioid use disorder Osteomyelitis PAD (peripheral artery disease) Pertinent family history: Patient not given history Social History Household Members: Unknown / Unable to assess Housing: Unknown / Unable to assess Patient Tobacco Use Status: Never used Tobacco Advance Directives: No Advance Directives Information Provided: No service: No Current occupational status: disabled Meds Allergies Allergy/AdvReac Type Severity Reaction Status Date / Time No Known Allergies Allergy Verified 02/01/22 12:12 [No Known Allergies*] Active Medications: Current Medications Acetaminophen (Acetaminophen 325 Mg Tablet) 650 mg PO Q6H PRN PRN Reason: Pain, Mild (Pain Scale 1-3) Dextrose (Dextrose 50 % 25 Gm/50 Ml Syringe) 25 gm IVPUSH Q15M PRN; Protocol PRN Reason: per Hypoglycemia Standing Ord. Docusate Sodium (Docusate Sodium 100 Mg Capsule) 100 mg PO DAILY PRN PRN Reason: Constipation Enoxaparin Sodium (Enoxaparin Sodium 40 Mg/0.4 Ml Syringe) 40 mg SUBCUT Q24H [facility] Glucose (Glucose Gel 15 Gm Gel..Gram.) 15 gm PO Q15M PRN; Protocol PRN Reason: per Hypoglycemia Standing Ord. Insulin Human Lispro (Insulin Lispro 100 Unit/Ml 3 Ml Vial) 0 unit SUBCUT QIDACHS [facility]; Protocol Ondansetron HCl (Ondansetron Hcl 4 Mg/2 Ml Vial) 4 mg IVPUSH Q8H PRN PRN Reason: Nausea and Vomiting Oxycodone HCl (Oxycodone Hcl Immed Release 5 Mg Tablet) 5 mg PO Q6H PRN PRN Reason: Pain, Severe (Pain Scale 7-10) Pharmacy Consult (Consult Rx Perform Med Rec) 1 each MISCELLANE ONCE PRN PRN Reason: Consult order Sodium Chloride (0.9 % Sodium Chloride Flush 3 Ml Syringe) 3 ml IVFLUSH QSHIFT [facility] Home Medications Medication Instructions Recorded Confirmed Last Taken Type atorvastatin 10 mg tablet 1 tab PO DAILY 04/05/22 05/12/22 Unknown History insulin aspart U-100 100 unit/mL 0 sliding scale dose subcut QIDACHS 04/05/22 05/12/22 Unknown History (3 mL) subcutaneous pen (Novolog Flexpen U-100 Insulin aspart) insulin glargine 100 unit/mL (3 20 - 30 unit subcut DAILY 04/05/22 05/12/22 Unknown History mL) subcutaneous pen (Lantus Solostar U-100 Insulin) lisinopril 20 mg tablet 20 mg PO DAILY 04/05/22 05/12/22 Unknown History methadone 10 mg/5 mL oral solution 65 mg PO DAILY 04/05/22 04/05/22 04/04/22 History omeprazole 20 mg capsule,delayed 20 mg PO DAILY 04/05/22 05/12/22 Unknown History release daptomycin 500 mg intravenous 500 mg IV DAILY 05/12/22 05/12/22 History solution Physical Exam Vital Signs and Narrative: Vital Signs: Last Vital Signs Temp 98.3 F 05/12/22 19:45 Pulse 109 H 05/12/22 19:45 Resp 15 05/12/22 19:45 BP 138/60 05/12/22 19:45 Pulse Ox 98 05/12/22 19:45 O2 Del Method 05/12/22 19:45 O2 Flow Rate 2 05/12/22 17:47 BMI result Body Mass Index 36.0 Const: General: cooperative and no acute distress Orientation/consciousness: patient oriented x3 Eyes: General: appearance normal, both eyes and all related structures Pupils: Equal, round and reactive pupils present Resp: Effort & Inspection: normal respiratory effort Auscultation: clear to auscultation bilaterally Cardio: Rate: regular rate Rhythm: regular rhythm GI: Palpation (GI): Soft to palpation Auscultation: normal bowel sounds Skin: General skin exam: no rashes or lesions noted Neuro: General: patient oriented x3 Cranial nerves: Yes Equal, round and reactive pupils present Cognition (Neuro): normal cognition Extrem: Other: Left foot with open wound to the 5th 4th metatarsal, clear drainage, malodorous Results Labs CBC and Chem 7: 05/12/22 18:08 05/12/22 18:08 Labs: Laboratory Results - last 24 hr 05/12/22 05/12/22 05/12/22 17:39 17:45 18:08 MCV 81.3 MCH 25.3 L MCHC 31.2 RDW 15.0 Plt Count 186 D MPV 11.1 Immature Gran % (Auto) 0.6 H Neut % (Auto) 88.1 H Lymph % (Auto) 4.6 L [place] % (Auto) 6.4 Eos % (Auto) 0.1 Baso % (Auto) 0.2 Lymph # (Auto) 0.8 L [place] # (Auto) 1.1 Eos # (Auto) 0.0 Baso # (Auto) 0.0 Abs Immat Gran (auto) 0.09 H Absolute Neuts (auto) 14.4 H Absolute Nucleated RBC 0.000 Nucleated RBC % (auto) 0.0 Anion Gap Estim Creat Clear Calc Estimated GFR POC Glucose > 600 H* > 600 H* Random Glucose Lactic Acid Calcium Total Bilirubin Direct Bilirubin AST ALT Alkaline Phosphatase C-Reactive Protein Total Protein Albumin Lipase Ethyl Alcohol Acetone, Qual COVID-19 (JOSE DAVID) COVID-19 Clin Com 05/12/22 05/12/22 05/12/22 18:08 18:08 18:08 MCV MCH MCHC RDW Plt Count MPV Immature Gran % (Auto) Neut % (Auto) Lymph % (Auto) [place] % (Auto) Eos % (Auto) Baso % (Auto) Lymph # (Auto) [place] # (Auto) Eos # (Auto) Baso # (Auto) Abs Immat Gran (auto) Absolute Neuts (auto) Absolute Nucleated RBC Nucleated RBC % (auto) Anion Gap 16 Estim Creat Clear Calc 44.5 Estimated GFR 32 POC Glucose Random Glucose 775 H* Lactic Acid Calcium 8.7 Total Bilirubin 0.4 Direct Bilirubin 0.2 AST 11 ALT 15 Alkaline Phosphatase 116 C-Reactive Protein 23.81 H Total Protein 7.8 Albumin 3.3 L Lipase 9 Ethyl Alcohol < 10 Acetone, Qual Negative COVID-19 (JOSE DAVID) Negative COVID-19 Clin Com See Note 05/12/22 05/12/22 05/12/22 18:24 21:16 21:30 MCV MCH MCHC RDW Plt Count MPV Immature Gran % (Auto) Neut % (Auto) Lymph % (Auto) [place] % (Auto) Eos % (Auto) Baso % (Auto) Lymph # (Auto) [place] # (Auto) Eos # (Auto) Baso # (Auto) Abs Immat Gran (auto) Absolute Neuts (auto) Absolute Nucleated RBC Nucleated RBC % (auto) Anion Gap Estim Creat Clear Calc Estimated GFR POC Glucose > 600 H* 599 H* Random Glucose Lactic Acid 1.0 Calcium Total Bilirubin Direct Bilirubin AST ALT Alkaline Phosphatase C-Reactive Protein Total Protein Albumin Lipase Ethyl Alcohol Acetone, Qual COVID-19 (JOSE DAVID) COVID-19 Clin Com Imaging Radiologist's Impressions: Impressions Foot X-Ray 05/12/22 18:14 IMPRESSION: 1. Extensive osteomyelitis involving the distal third and fourth metatarsals and the third through fifth toes. 2. Tracking soft tissue gas consistent with gas-forming infection. 3. Extensive soft tissue swelling. Assessment and Plan (1) Osteomyelitis: Status: Acute (2) Diabetic infection of left foot: Status: Acute (3) Normocytic anemia: Status: Acute (4) Hyperglycemia due to diabetes mellitus: Status: Acute Plan 56-year-old male with past medical history of diabetes presents to the hospital with worsening diabetic foot wound. # diabetic foot wound/osteomyelitis - has increasing ESR, as well as CRP - evidence of osteomyelitis on x-ray - was seen by infectious disease on 04/22 on his previous admission, was recommended to continue daptomycin for 42 days - failed outpatient therapy, will start him on vancomycin and Zosyn given the evidence of gas-forming infection - infectious disease consulted - general surgery consult # hyperglycemia - not in DKA or HHS - continue low-dose sliding scale insulin - will treat with lispro as well as regular insulin as needed for elevated glucose - continue home Lantus - diabetic diet # normocytic anemia - appears chronic - no evidence of acute bleed - follow CBC - may need further workup if he continues to drop in his hemoglobin # peripheral vascular disease - continue statin # hypertension - stable - continue antihypertensives # history of opioid use - continue methadone DVT prophylaxis: Heparin subQ Pt will require a minimum 2 night hospital stay for IV antibiotics Quality Stroke Does the patient have a stroke diagnosis?: No VTE Prior VTE?: No VTE Risk Level:: Medical - moderate - high VTE Device Contraindication: Treatment Not Indicated VTE Drug Contraindication: N/A - Med Ordered
--- NOTE | 2022-05-12 21:39 | PC.NURSE ---
Per Hiro Crane MD - administer insulin per sliding scale then she is ordering an additional 20U of Lispro to be given at the same time, then recheck POC in one hour
--- NOTE | 2022-05-12 21:45 | PC.NURSE ---
Per MD [facility] ED provider, give 30 Lantus and 14 Humalog. This RN informed Hiro Crane, and per Royce, don't give Humalog but administer the Lantus. This RN will ask providers to confirm with one another which insulins this RN should administer
--- NOTE | 2022-05-12 21:50 | PC.NURSE ---
Per Hiro Crane MD, she is cancelling ED provider's orders and asks this RN to follow her insulin orders only. Will administer insulin her hospitalist's orders as ordered
[2022-05-12] MEDS: Enoxaparin Sodium 40 MG/0.4 ML SYRINGE SUBCUT (22:09)
[2022-05-12] MEDS: Insulin Glargine,Hum.rec.anlog 100 UNIT/ML 10 ML VIAL 30 UNIT SUBCUT (22:09)
[2022-05-12] MEDS: Insulin Lispro 100 UNIT/ML 3 ML VIAL SUBCUT (22:10)
[2022-05-12] MEDS: Insulin Lispro 100 UNIT/ML 3 ML VIAL 15 UNIT SUBCUT (22:10)
[2022-05-12 23:05] LABS: Glucose, Whole Blood 560 mg/dL (60-115)
--- NOTE | 2022-05-12 23:11 | PC.NURSE ---
Notified Hiro Crane MD that pt.'s repeat POC = 501. Provider responded and is aware, states she is putting in new orders. This RN is awaiting new orders at this time.
[2022-05-12 23:29] VITALS: BP 132/69; PULSE 91; RESP 14; O2SAT 98
[2022-05-12 23:31] LABS: Glucose, Whole Blood 501 mg/dL (60-115)
[2022-05-13] VITALS (7 sets, daily range): BP systolic 94–148; BP diastolic 51–76; PULSE 76–90; RESP 12–16; TEMP 36.6–36.9; O2SAT 92–99
--- NOTE | 2022-05-13 00:19 | PC.NURSE ---
Notified Hiro Crane MD that pt.'s repeat POC - 453. Awaiting response and new orders at this time
[2022-05-13 00:20] LABS: Glucose, Whole Blood 453 mg/dL (60-115)
--- NOTE | 2022-05-13 00:26 | PC.NURSE ---
New orders are in for insulin
[2022-05-13] MEDS: Piperacillin Sodium/Tazobactam 3.375 GM in 0.9 % Sodium Chloride 50 ML IV ×4 (00:34→21:44)
[2022-05-13] MEDS: 0.9 % Sodium Chloride Flush 3 ML SYRINGE IVFLUSH ×2 (00:34→07:59)
[2022-05-13] MEDS: Insulin Lispro 100 UNIT/ML 3 ML VIAL 10 UNIT SUBCUT (01:20)
[2022-05-13] MEDS: Insulin Regular, Human 100 UNIT/ML 3 ML VIAL 10 UNIT IVPUSH (01:20)
[2022-05-13 01:51] LABS: Glucose, Whole Blood 253 mg/dL (60-115)
--- NOTE | 2022-05-13 01:54 | PC.NURSE ---
Repeat POC taken by marketing graphics specialist was 253. Hospitalist notified
[2022-05-13] MEDS: oxyCODONE HCl Immed Release 5 MG TABLET PO (03:14)
--- NOTE | 2022-05-13 03:29 | PC.NURSE ---
Administered PRN Oxycodone 5mg to pt. He is screaming and writhing in pain. Contacted hospitalist for dose of stronger pain med. Awaiting order at this time.
--- NOTE | 2022-05-13 03:32 | PC.NURSE ---
molecular spectroscopist informed this RN that pt.'s POC is now 80. Giving pt. a few sips of juice and hospitalist notified. Awaiting response and new orders at this time. Will recheck POC in 15 minutes
[2022-05-13 03:34] LABS: Glucose, Whole Blood 80 mg/dL (60-115)
--- NOTE | 2022-05-13 03:55 | PC.NURSE ---
Per Hiro Crane MD, give D50
[2022-05-13] MEDS: Morphine Sulfate 4 MG/ML CARTRIDGE IVPUSH (04:11)
[2022-05-13] MEDS: Dextrose 50 % 25 GM/50 ML SYRINGE IVPUSH (04:12)
--- NOTE | 2022-05-13 04:41 | PC.NURSE ---
pt cleaned, linens changed. pillows placed underneath pt for comfort. resting comfortably at this time.
[2022-05-13 05:05] LABS: Glucose, Whole Blood 147 mg/dL (60-115)
--- NOTE | 2022-05-13 05:12 | PC.NURSE ---
Addendum entered by Padma Cali RN 05/13/22 05:13: Repeat* - typo Original Note: Repear POC is 147 s/p one dose of D50. Will continue to monitor POCs closely
[2022-05-13 06:00] LABS: Glucose, Whole Blood 133 mg/dL (60-115)
[2022-05-13 06:19] LABS: MANUAL DIFF FLAG NO
[2022-05-13 06:40] LABS: Basophils Percent Auto 0.3 % (0-2); Eosinophils Absolute Auto 0.1 X10*3/uL (0.0-0.4); Eosinophils Percent Auto 0.6 % (0-4); Hematocrit 22.8 % (42.0-52.0); Hemoglobin 7.1 g/dl (14.0-18.0); Imm Gran Abs Auto 0.07 X10*3/uL (0.00-0.03); Imm Gran Pct Auto 0.5 % (0.0-0.4); Lymphocytes Absolute Auto 1.8 X10*3/uL (1.2-4.9); Lymphocytes Percent Auto 11.6 % (20-40); Mean Corpuscular HGB Conc 31.1 g/dl (31.0-36.0); Mean Corpuscular Hemoglobin 25.4 pg (27.0-33.0); Mean Corpuscular Volume 81.7 fL (80.0-98.0); Mean Platelet Volume 10.9 fL (9.4-12.4); Monocytes Absolute Auto 0.9 X10*3/uL (0.1-1.2); Monocytes Percent Auto 5.9 % (2-11); Neutrophils Absolute Auto 12.5 x10*3/uL (2.0-8.3); Neutrophils Percent Auto 81.1 % (45-73); Platelet Count 189 X10*3/uL (160-400); Red Blood Count 2.79 X10*6/uL (4.60-5.80); Red Cell Distribution Width 15.1 % (11.0-16.0); White Blood Count 15.4 X10*3/uL (4.8-10.8)
[2022-05-13 07:05] LABS: Anion Gap 12 (12-20); Blood Urea Nitrogen 27 mg/dL (9-16); Calcium 8.8 mg/dL (8.4-10.2); Carbon Dioxide 30 mmol/L (22-29); Chloride 104 mmol/L (96-108); Creatinine Clr Calc Pharmacy 55.5; Estimated Glomerular Filt Rate 42; Glucose Random 104 mg/dL (60-115); Potassium 3.8 mmol/L (3.3-5.1); Sodium 142 mmol/L (135-145)
[2022-05-13 07:10] LABS: Glucose, Whole Blood 88 mg/dL (60-115)
[2022-05-13] MEDS: Omeprazole 20 MG CAPSULE.DR PO (08:01)
[2022-05-13] MEDS: Heparin Sodium,Porcine 5,000 UNIT/ML VIAL 5000 UNIT SUBCUT ×2 (08:01→21:46)
[2022-05-13] MEDS: lisinopriL 20 MG TABLET PO (08:01)
[2022-05-13] MEDS: Atorvastatin Calcium 10 MG TABLET PO (08:01)
[2022-05-13] MEDS: carvediloL 25 MG TABLET PO ×2 (08:02→21:49)
[2022-05-13] MEDS: Tamsulosin HCL 0.4 MG CAPSULE PO (08:02)
[2022-05-13] MEDS: Ferrous Sulfate 324 MG TABLET.DR PO (08:02)
[2022-05-13] MEDS: ondansetron HCL 4 MG/2 ML VIAL IVPUSH (08:32)
--- NOTE | 2022-05-13 08:37 | P.CONGS_ITS ---
History of Present Illness Consult details Consult date: 05/13/22 Requesting physician: Brandi Crane Narrative: 56-year-old male patient with history of diabetes and opiate abuse history currently on methadone, previously evaluated for gangrene involving the 4th toe left foot. He underwent amputation of the 4th toe with drainage of an abscess on 04/04/[address] Simmons. Noninvasive vascular studies revealed multiple levels of stenosis in the bilateral legs. Patient was unable to undergo further vascular procedures due to renal disease. Patient was discharged with IV antibiotics but returns today with increased foot pain, nausea and vomiting. He reports nausea and vomiting is related to not getting his methadone today. In the emergency department he was noted to be hyperglycemic and agitated. The left foot revealed a malodorous foot wound. X-rays of the foot revealed osteomyelitis involving the 3rd 4th and 5th toes and metatarsals. Review of Systems Review of Systems: Yes Unobtainable due to mental condition PMFSH Past Medical History Medical History Chronic anemia CKD (chronic kidney disease) Diabetes Diabetic infection of left foot Opioid use disorder Osteomyelitis PAD (peripheral artery disease) Social History Social History Household Members: Unknown / Unable to assess Housing: Unknown / Unable to assess Patient Tobacco Use Status: Never used Tobacco Advance Directives: No Advance Directives Information Provided: No service: No Current occupational status: disabled Meds Allergies Allergy/AdvReac Type Severity Reaction Status Date / Time No Known Allergies Allergy Verified 02/01/22 12:12 [No Known Allergies*] Active Medications: Current Medications Acetaminophen (Acetaminophen 325 Mg Tablet) 650 mg PO Q6H PRN PRN Reason: Pain, Mild (Pain Scale 1-3) Atorvastatin Calcium (Atorvastatin Calcium 10 Mg Tablet) 10 mg PO DAILY MARIA ELENA Last Admin: 05/13/22 08:01 Dose: 10 mg Carvedilol (Carvedilol 25 Mg Tablet) 25 mg PO BID MARIA ELENA; Protocol Last Admin: 05/13/22 08:02 Dose: 25 mg Dextrose (Dextrose 50 % 25 Gm/50 Ml Syringe) 25 gm IVPUSH Q15M PRN; Protocol PRN Reason: per Hypoglycemia Standing Ord. Last Admin: 05/13/22 04:12 Dose: 25 gm Docusate Sodium (Docusate Sodium 100 Mg Capsule) 100 mg PO DAILY PRN PRN Reason: Constipation Ferrous Sulfate (Ferrous Sulfate 324 Mg Tablet.) 324 mg PO DAILY [facility] Last Admin: 05/13/22 08:02 Dose: 324 mg Glucose (Glucose Gel 15 Gm Gel..Gram.) 15 gm PO Q15M PRN; Protocol PRN Reason: per Hypoglycemia Standing Ord. Heparin Sodium (Porcine) (Heparin Sodium,Porcine 5,000 Unit/Ml Vial) 5,000 unit SUBCUT Q12H [facility] Last Admin: 05/13/22 08:01 Dose: 5,000 unit Hydroxyzine HCl (Hydroxyzine Hcl 25 Mg Tablet) 25 mg PO TID PRN PRN Reason: itching Piperacillin Sod/Tazobactam (Sod 3.375 gm/ Sodium Chloride) 50 mls @ 100 mls/hr IV Q6H [facility] Last Admin: 05/13/22 08:00 Dose: 100 mls/hr Vancomycin HCl 1,000 mg/ (Sodium Chloride) 270 mls @ 270 mls/hr IV Q24H [facility] Insulin Glargine (Insulin Glargine,Hum.Rec.Anlog 100 Unit/Ml 10 Ml Vial) 20 unit SUBCUT DAILY [facility] Last Admin: 05/13/22 08:37 Dose: Not Given Insulin Human Lispro (Insulin Lispro 100 Unit/Ml 3 Ml Vial) 0 unit SUBCUT QIDACHS [facility]; Protocol Last Admin: 05/13/22 07:25 Dose: Not Given Lisinopril (Lisinopril 20 Mg Tablet) 20 mg PO DAILY [facility]; Protocol Last Admin: 05/13/22 08:01 Dose: 20 mg Morphine Sulfate (Morphine Sulfate 4 Mg/Ml Cartridge) 4 mg IVPUSH Q4H PRN; Protocol PRN Reason: Pain, Severe (Pain Scale 7-10) Last Admin: 05/13/22 04:11 Dose: 4 mg Nifedipine (Nifedipine Er 30 Mg Tab.Er.24) 90 mg PO DAILY [facility]; Protocol Omeprazole (Omeprazole 20 Mg Capsule.) 20 mg PO DAILY@0630 [facility] Last Admin: 05/13/22 08:01 Dose: 20 mg Ondansetron HCl (Ondansetron Hcl 4 Mg/2 Ml Vial) 4 mg IVPUSH Q8H PRN PRN Reason: Nausea and Vomiting Last Admin: 05/13/22 08:32 Dose: 4 mg Oxycodone HCl (Oxycodone Hcl Immed Release 5 Mg Tablet) 5 mg PO Q6H PRN PRN Reason: Pain, Severe (Pain Scale 7-10) Last Admin: 05/13/22 03:14 Dose: 5 mg Pharmacy Consult (Consult Rx Perform Med Rec) 1 each MISCELLANE ONCE PRN PRN Reason: Consult order Pharmacy Consult (Consult Rx Vancomycin Dosing) 1 each MISCELLANE DAILY PRN PRN Reason: Consult order Sodium Chloride (0.9 % Sodium Chloride Flush 3 Ml Syringe) 3 ml IVFLUSH QSHIFT [facility] Last Admin: 05/13/22 07:59 Dose: 3 ml Tamsulosin HCl (Tamsulosin Hcl 0.4 Mg Capsule) 0.4 mg PO DAILY [facility] Last Admin: 05/13/22 08:02 Dose: 0.4 mg Home Medications Medication Instructions Recorded Confirmed Last Taken Type atorvastatin 10 mg tablet 1 tab PO DAILY 04/05/22 05/12/22 Unknown History insulin aspart U-100 100 unit/mL 0 sliding scale dose subcut QIDACHS 04/05/22 05/12/22 Unknown History (3 mL) subcutaneous pen (Novolog Flexpen U-100 Insulin aspart) insulin glargine 100 unit/mL (3 20 - 30 unit subcut DAILY 04/05/22 05/12/22 Unknown History mL) subcutaneous pen (Lantus Solostar U-100 Insulin) lisinopril 20 mg tablet 20 mg PO DAILY 04/05/22 05/12/22 Unknown History methadone 10 mg/5 mL oral solution 65 mg PO DAILY 04/05/22 04/05/22 04/04/22 History omeprazole 20 mg capsule,delayed 20 mg PO DAILY 04/05/22 05/12/22 Unknown History release daptomycin 500 mg intravenous 500 mg IV DAILY 05/12/22 05/12/22 History solution Physical Exam Vital Signs: Vital Signs: Last Vital Signs Temp 98.3 F 05/12/22 19:45 Pulse 82 05/13/22 06:48 Resp 12 05/13/22 06:48 BP 148/67 H 05/13/22 08:02 Pulse Ox 92 05/13/22 06:48 O2 Del Method 05/13/22 06:48 O2 Flow Rate 2 05/13/22 05:02 BMI result Body Mass Index 36.0 Const: General: ill appearing, poor hygiene and tired appearing Nutritional Appearance: well nourished HEENT: Head: Yes normocephalic and Yes atraumatic Resp: Effort & Inspection: normal respiratory effort, no audible wheezes, no cough and respiratory distress GI: Inspection: Yes normal to inspection Skin: General skin exam: erythema (Left foot) Results Labs Result diagrams: 05/13/22 06:00 05/13/22 06:00 Labs: Abnormal lab results 05/12/22 05/12/22 05/12/22 Range/Units 17:39 17:45 18:08 WBC 16.4 H (4.8-10.8) X10*3/uL RBC 3.04 L (4.60-5.80) X10*6/uL Hgb 7.7 L (14.0-18.0) g/dl Hct 24.7 L (42.0-52.0) % MCH 25.3 L (27.0-33.0) pg Immature Gran % (Auto) 0.6 H (0.0-0.4) % Neut % (Auto) 88.1 H (45-73) % Lymph % (Auto) 4.6 L (20-40) % Lymph # (Auto) 0.8 L (1.2-4.9) X10*3/uL Abs Immat Gran (auto) 0.09 H (0.00-0.03) X10*3/uL Absolute Neuts (auto) 14.4 H (2.0-8.3) x10*3/uL ESR (0-15) MM/HR Sodium (135-145) mmol/L Chloride (96-108) mmol/L Carbon Dioxide (22-29) mmol/L BUN (9-16) mg/dL Creatinine (0.5-1.4) mg/dL POC Glucose > 600 H* > 600 H* (60-115) mg/dL Random Glucose (60-115) mg/dL C-Reactive Protein (< or = 0.50) mg/dL Albumin (3.5-5.0) g/dL 05/12/22 05/12/22 05/12/22 Range/Units 18:08 20:35 21:16 WBC (4.8-10.8) X10*3/uL RBC (4.60-5.80) X10*6/uL Hgb (14.0-18.0) g/dl Hct (42.0-52.0) % MCH (27.0-33.0) pg Immature Gran % (Auto) (0.0-0.4) % Neut % (Auto) (45-73) % Lymph % (Auto) (20-40) % Lymph # (Auto) (1.2-4.9) X10*3/uL Abs Immat Gran (auto) (0.00-0.03) X10*3/uL Absolute Neuts (auto) (2.0-8.3) x10*3/uL ESR 124 H (0-15) MM/HR Sodium 132 L (135-145) mmol/L Chloride 94 L (96-108) mmol/L Carbon Dioxide (22-29) mmol/L BUN 32 H (9-16) mg/dL Creatinine 2.13 H (0.5-1.4) mg/dL POC Glucose > 600 H* (60-115) mg/dL Random Glucose 775 H* (60-115) mg/dL C-Reactive Protein 23.81 H (< or = 0.50) mg/dL Albumin 3.3 L (3.5-5.0) g/dL 05/12/22 05/12/22 05/12/22 Range/Units 21:30 23:01 23:25 WBC (4.8-10.8) X10*3/uL RBC (4.60-5.80) X10*6/uL Hgb (14.0-18.0) g/dl Hct (42.0-52.0) % MCH (27.0-33.0) pg Immature Gran % (Auto) (0.0-0.4) % Neut % (Auto) (45-73) % Lymph % (Auto) (20-40) % Lymph # (Auto) (1.2-4.9) X10*3/uL Abs Immat Gran (auto) (0.00-0.03) X10*3/uL Absolute Neuts (auto) (2.0-8.3) x10*3/uL ESR (0-15) MM/HR Sodium (135-145) mmol/L Chloride (96-108) mmol/L Carbon Dioxide (22-29) mmol/L BUN (9-16) mg/dL Creatinine (0.5-1.4) mg/dL POC Glucose 599 H* 560 H* 501 H* (60-115) mg/dL Random Glucose (60-115) mg/dL C-Reactive Protein (< or = 0.50) mg/dL Albumin (3.5-5.0) g/dL 05/13/22 05/13/22 05/13/22 Range/Units 00:17 01:47 05:00 WBC (4.8-10.8) X10*3/uL RBC (4.60-5.80) X10*6/uL Hgb (14.0-18.0) g/dl Hct (42.0-52.0) % MCH (27.0-33.0) pg Immature Gran % (Auto) (0.0-0.4) % Neut % (Auto) (45-73) % Lymph % (Auto) (20-40) % Lymph # (Auto) (1.2-4.9) X10*3/uL Abs Immat Gran (auto) (0.00-0.03) X10*3/uL Absolute Neuts (auto) (2.0-8.3) x10*3/uL ESR (0-15) MM/HR Sodium (135-145) mmol/L Chloride (96-108) mmol/L Carbon Dioxide (22-29) mmol/L BUN (9-16) mg/dL Creatinine (0.5-1.4) mg/dL POC Glucose 453 H* 253 H 147 H (60-115) mg/dL Random Glucose (60-115) mg/dL C-Reactive Protein (< or = 0.50) mg/dL Albumin (3.5-5.0) g/dL 05/13/22 05/13/22 05/13/22 Range/Units 05:57 06:00 06:00 WBC 15.4 H (4.8-10.8) X10*3/uL RBC 2.79 L (4.60-5.80) X10*6/uL Hgb 7.1 L (14.0-18.0) g/dl Hct 22.8 L (42.0-52.0) % MCH 25.4 L (27.0-33.0) pg Immature Gran % (Auto) 0.5 H (0.0-0.4) % Neut % (Auto) 81.1 H (45-73) % Lymph % (Auto) 11.6 L (20-40) % Lymph # (Auto) (1.2-4.9) X10*3/uL Abs Immat Gran (auto) 0.07 H (0.00-0.03) X10*3/uL Absolute Neuts (auto) 12.5 H (2.0-8.3) x10*3/uL ESR (0-15) MM/HR Sodium (135-145) mmol/L Chloride (96-108) mmol/L Carbon Dioxide 30 H (22-29) mmol/L BUN 27 H (9-16) mg/dL Creatinine 1.71 H (0.5-1.4) mg/dL POC Glucose 133 H (60-115) mg/dL Random Glucose (60-115) mg/dL C-Reactive Protein (< or = 0.50) mg/dL Albumin (3.5-5.0) g/dL Short CBC 05/12/22 05/13/22 Range/Units 18:08 06:00 WBC 16.4 H 15.4 H (4.8-10.8) X10*3/uL Hgb 7.7 L 7.1 L (14.0-18.0) g/dl Hct 24.7 L 22.8 L (42.0-52.0) % Plt Count 186 D 189 (160-400) X10*3/uL BMP 05/12/22 05/13/22 18:08 06:00 Sodium 132 L 142 Potassium 4.5 3.8 Chloride 94 L 104 Carbon Dioxide 27 30 H BUN 32 H 27 H Creatinine 2.13 H 1.71 H Calcium 8.7 8.8 Liver Function 05/12/22 Range/Units 18:08 Total Bilirubin 0.4 (0.0-1.0) mg/dL Direct Bilirubin 0.2 (0.0-0.5) mg/dL AST 11 (5-37) U/L ALT 15 (0-40) U/L Alkaline Phosphatase 116 (39-117) U/L Albumin 3.3 L (3.5-5.0) g/dL All other labs normal. Assessment and Plan (1) Osteomyelitis: Status: Acute (2) Hyperglycemia due to diabetes mellitus: Status: Acute (3) Diabetic infection of left foot: Status: Acute Plan Worsening of the left foot diabetic foot ulcers with osteomyelitis involving multiple digits which may require transmetatarsal amputation. Recommend consultation of vascular surgery further possible options to improve vascular flow. Procedures Date of Service Date of Service: 05/13/22
--- NOTE | 2022-05-13 08:45 | PC.NURSE ---
Dr. Montelongo held Lantus. Patient also refusing to eat due to not having methadone
[2022-05-13] MEDS: NIFEdipine ER 30 MG TAB.ER.24 90 MG PO (08:48)
--- NOTE | 2022-05-13 08:48 | HE.PHANOTE ---
Vancomycin Dosing Addendum Patient renal function is improving. Continue current regiment vancomcyin 1000 mg Q24H. Expected AUC 477 with a trough of 13.3. Next level is schedule 05/14 @ 1900. Pharmacy will continue to monitor renal function daily. Corinne Ramírez, PharmD
--- NOTE | 2022-05-13 09:14 | PC.NURSE ---
Patient asking for methadone from this RN. Verification form done with nurse from patients methadone clinic at [facility]
--- NOTE | 2022-05-13 09:29 | HE.PHANOTE ---
Methadone Verification Form Pharmacy has recieve the methadone verification from Silvino Pritchard Patient last recieved methadone 55 mg on 05/12/22 @ 1207 at [facility] Confirmed with ASHELY Watters at the clinic. Corinne Ramírez, MartinezD
--- NOTE | 2022-05-13 11:22 | HO.PM.IMPN ---
Subjective Subjective Date of Service: 05/13/22 Interval History: seen inf f/u for diabetic foot ulcer/osteomyltis interval history: pain, no fever or chills Review of Systems no fever or chills pain in the foot Physical Exam Vital Signs: Vital Signs: Last Vital Signs Temp 98.3 F 05/12/22 19:45 Pulse 82 05/13/22 06:48 Resp 12 05/13/22 06:48 BP 148/67 H 05/13/22 08:02 Pulse Ox 92 05/13/22 06:48 O2 Del Method 05/13/22 06:48 O2 Flow Rate 2 05/13/22 05:02 BMI result Body Mass Index 36.0 Const: General: cooperative, no acute distress, ill appearing, poor hygiene and tired appearing Nutritional Appearance: well nourished Orientation/consciousness: patient oriented x3 Resp: Effort & Inspection: normal respiratory effort, no audible wheezes, no cough and respiratory distress Auscultation: clear to auscultation bilaterally Cardio: Rate: regular rate Rhythm: regular rhythm GI: Inspection: Yes normal to inspection Palpation (GI): Soft to palpation Auscultation: normal bowel sounds Skin: General skin exam: no rashes or lesions noted and erythema (Left foot) Neuro: General: patient oriented x3 Cognition (Neuro): normal cognition Extrem: Other: Left foot with open wound to the 5th 4th metatarsal, clear drainage, malodorous Objective Data Active Medications Acetaminophen (Acetaminophen 325 Mg Tablet) 650 mg PO Q6H PRN PRN Reason: Pain, Mild (Pain Scale 1-3) Atorvastatin Calcium (Atorvastatin Calcium 10 Mg Tablet) 10 mg PO DAILY [facility] Last Admin: 05/13/22 08:01 Dose: 10 mg Documented By: MARIAH Carvedilol (Carvedilol 25 Mg Tablet) 25 mg PO BID [facility]; Protocol Last Admin: 05/13/22 08:02 Dose: 25 mg Documented By: MARIAH Dextrose (Dextrose 50 % 25 Gm/50 Ml Syringe) 25 gm IVPUSH Q15M PRN; Protocol PRN Reason: per Hypoglycemia Standing Ord. Last Admin: 05/13/22 04:12 Dose: 25 gm Documented By: EDY Docusate Sodium (Docusate Sodium 100 Mg Capsule) 100 mg PO DAILY PRN PRN Reason: Constipation Ferrous Sulfate (Ferrous Sulfate 324 Mg Tablet.Dr) 324 mg PO DAILY [facility] Last Admin: 05/13/22 08:02 Dose: 324 mg Documented By: MARIAH Glucose (Glucose Gel 15 Gm Gel..Gram.) 15 gm PO Q15M PRN; Protocol PRN Reason: per Hypoglycemia Standing Ord. Heparin Sodium (Porcine) (Heparin Sodium,Porcine 5,000 Unit/Ml Vial) 5,000 unit SUBCUT Q12H [facility] Last Admin: 05/13/22 08:01 Dose: 5,000 unit Documented By: MARIAH Hydroxyzine HCl (Hydroxyzine Hcl 25 Mg Tablet) 25 mg PO TID PRN PRN Reason: itching Piperacillin Sod/Tazobactam (Sod 3.375 gm/ Sodium Chloride) 50 mls @ 100 mls/hr IV Q6H [facility] Last Admin: 05/13/22 08:00 Dose: 100 mls/hr Documented By: MARIAH Vancomycin HCl 1,000 mg/ (Sodium Chloride) 270 mls @ 270 mls/hr IV Q24H [facility] Insulin Glargine (Insulin Glargine,Hum.Rec.Anlog 100 Unit/Ml 10 Ml Vial) 20 unit SUBCUT DAILY [facility] Last Admin: 05/13/22 08:37 Dose: Not Given Documented By: MARIAH Non-Admin Reason: NPO Insulin Human Lispro (Insulin Lispro 100 Unit/Ml 3 Ml Vial) 0 unit SUBCUT QIDACHS [facility]; Protocol Last Admin: 05/13/22 07:25 Dose: Not Given Documented By: MARIAH Non-Admin Reason: No Insulin Coverage Lisinopril (Lisinopril 20 Mg Tablet) 20 mg PO DAILY [facility]; Protocol Last Admin: 05/13/22 08:01 Dose: 20 mg Documented By: MARIAH Comments: 148/67 Morphine Sulfate (Morphine Sulfate 4 Mg/Ml Cartridge) 4 mg IVPUSH Q4H PRN; Protocol PRN Reason: Pain, Severe (Pain Scale 7-10) Last Admin: 05/13/22 04:11 Dose: 4 mg Documented By: EDY Nifedipine (Nifedipine Er 30 Mg Tab.Er.24) 90 mg PO DAILY [facility]; Protocol Last Admin: 05/13/22 08:48 Dose: 90 mg Documented By: MARIAH Omeprazole (Omeprazole 20 Mg Capsule.Dr) 20 mg PO DAILY@0630 [facility] Last Admin: 05/13/22 08:01 Dose: 20 mg Documented By: MARIAH Ondansetron HCl (Ondansetron Hcl 4 Mg/2 Ml Vial) 4 mg IVPUSH Q8H PRN PRN Reason: Nausea and Vomiting Last Admin: 05/13/22 08:32 Dose: 4 mg Documented By: VENKATESH Oxycodone HCl (Oxycodone Hcl Immed Release 5 Mg Tablet) 5 mg PO Q6H PRN PRN Reason: Pain, Severe (Pain Scale 7-10) Last Admin: 05/13/22 03:14 Dose: 5 mg Documented By: EDY Pharmacy Consult (Consult Rx Perform Med Rec) 1 each MISCELLANE ONCE PRN PRN Reason: Consult order Pharmacy Consult (Consult Rx Vancomycin Dosing) 1 each MISCELLANE DAILY PRN PRN Reason: Consult order Sodium Chloride (0.9 % Sodium Chloride Flush 3 Ml Syringe) [facility] Last Admin: 05/13/22 07:59 Dose: 3 ml Documented By: MARIAH Tamsulosin HCl (Tamsulosin Hcl 0.4 Mg Capsule) 0.4 mg PO DAILY [facility] Last Admin: 05/13/22 08:02 Dose: 0.4 mg Documented By: MARIAH Labs CBC & Chem 7: 05/13/22 06:00 05/13/22 06:00 Labs: Laboratory Results - last 24 hr 05/12/22 05/12/22 05/12/22 17:39 17:45 18:08 MCV 81.3 MCH 25.3 L MCHC 31.2 RDW 15.0 Plt Count 186 D MPV 11.1 Immature Gran % (Auto) 0.6 H Neut % (Auto) 88.1 H Lymph % (Auto) 4.6 L [place] % (Auto) 6.4 Eos % (Auto) 0.1 Baso % (Auto) 0.2 Lymph # (Auto) 0.8 L [place] # (Auto) 1.1 Eos # (Auto) 0.0 Baso # (Auto) 0.0 Abs Immat Gran (auto) 0.09 H Absolute Neuts (auto) 14.4 H Absolute Nucleated RBC 0.000 Nucleated RBC % (auto) 0.0 ESR Anion Gap Estim Creat Clear Calc Estimated GFR POC Glucose > 600 H* > 600 H* Random Glucose Lactic Acid Calcium Total Bilirubin Direct Bilirubin AST ALT Alkaline Phosphatase C-Reactive Protein Total Protein Albumin Lipase Ethyl Alcohol Acetone, Qual COVID-19 (JOSE DAVID) COVID-19 [employer] 05/12/22 05/12/22 05/12/22 18:08 18:08 18:08 MCV MCH MCHC RDW Plt Count MPV Immature Gran % (Auto) Neut % (Auto) Lymph % (Auto) [place] % (Auto) Eos % (Auto) Baso % (Auto) Lymph # (Auto) [place] # (Auto) Eos # (Auto) Baso # (Auto) Abs Immat Gran (auto) Absolute Neuts (auto) Absolute Nucleated RBC Nucleated RBC % (auto) ESR Anion Gap 16 Estim Creat Clear Calc 44.5 Estimated GFR 32 POC Glucose Random Glucose 775 H* Lactic Acid Calcium 8.7 Total Bilirubin 0.4 Direct Bilirubin 0.2 AST 11 ALT 15 Alkaline Phosphatase 116 C-Reactive Protein 23.81 H Total Protein 7.8 Albumin 3.3 L Lipase 9 Ethyl Alcohol < 10 Acetone, Qual Negative COVID-19 (JOSE DAVID) Negative [employer] See Note 05/12/22 05/12/22 05/12/22 18:24 20:35 21:16 MCV MCH MCHC RDW Plt Count MPV Immature Gran % (Auto) Neut % (Auto) Lymph % (Auto) [place] % (Auto) Eos % (Auto) Baso % (Auto) Lymph # (Auto) [place] # (Auto) Eos # (Auto) Baso # (Auto) Abs Immat Gran (auto) Absolute Neuts (auto) Absolute Nucleated RBC Nucleated RBC % (auto) ESR 124 H Anion Gap Estim Creat Clear Calc Estimated GFR POC Glucose > 600 H* Random Glucose Lactic Acid 1.0 Calcium Total Bilirubin Direct Bilirubin AST ALT Alkaline Phosphatase C-Reactive Protein Total Protein Albumin Lipase Ethyl Alcohol Acetone, Qual COVID-19 (JOSE DAVID) COVID-19 [employer] 05/12/22 05/12/22 05/12/22 21:30 23:01 23:25 MCV MCH MCHC RDW Plt Count MPV Immature Gran % (Auto) Neut % (Auto) Lymph % (Auto) [place] % (Auto) Eos % (Auto) Baso % (Auto) Lymph # (Auto) [place] # (Auto) Eos # (Auto) Baso # (Auto) Abs Immat Gran (auto) Absolute Neuts (auto) Absolute Nucleated RBC Nucleated RBC % (auto) ESR Anion Gap Estim Creat Clear Calc Estimated GFR POC Glucose 599 H* 560 H* 501 H* Random Glucose Lactic Acid Calcium Total Bilirubin Direct Bilirubin AST ALT Alkaline Phosphatase C-Reactive Protein Total Protein Albumin Lipase Ethyl Alcohol Acetone, Qual COVID-19 (JOSE DAVID) COVID-19 [employer] 05/13/22 05/13/22 05/13/22 00:17 01:47 03:29 MCV MCH MCHC RDW Plt Count MPV Immature Gran % (Auto) Neut % (Auto) Lymph % (Auto) [place] % (Auto) Eos % (Auto) Baso % (Auto) Lymph # (Auto) [place] # (Auto) Eos # (Auto) Baso # (Auto) Abs Immat Gran (auto) Absolute Neuts (auto) Absolute Nucleated RBC Nucleated RBC % (auto) ESR Anion Gap Estim Creat Clear Calc Estimated GFR POC Glucose 453 H* 253 H 80 Random Glucose Lactic Acid Calcium Total Bilirubin Direct Bilirubin AST ALT Alkaline Phosphatase C-Reactive Protein Total Protein Albumin Lipase Ethyl Alcohol Acetone, Qual COVID-19 (JOSE DAVID) [employer] 05/13/22 05/13/22 05/13/22 05:00 05:57 06:00 MCV 81.7 MCH 25.4 L MCHC 31.1 RDW 15.1 Plt Count 189 MPV 10.9 Immature Gran % (Auto) 0.5 H Neut % (Auto) 81.1 H Lymph % (Auto) 11.6 L [place] % (Auto) 5.9 Eos % (Auto) 0.6 Baso % (Auto) 0.3 Lymph # (Auto) 1.8 [place] # (Auto) 0.9 Eos # (Auto) 0.1 Baso # (Auto) 0.0 Abs Immat Gran (auto) 0.07 H Absolute Neuts (auto) 12.5 H Absolute Nucleated RBC 0.000 Nucleated RBC % (auto) 0.0 ESR Anion Gap Estim Creat Clear Calc Estimated GFR POC Glucose 147 H 133 H Random Glucose Lactic Acid Calcium Total Bilirubin Direct Bilirubin AST ALT Alkaline Phosphatase C-Reactive Protein Total Protein Albumin Lipase Ethyl Alcohol Acetone, Qual COVID-19 (JOSE DAVID) [employer] 05/13/22 05/13/22 06:00 06:52 MCV MCH MCHC RDW Plt Count MPV Immature Gran % (Auto) Neut % (Auto) Lymph % (Auto) [place] % (Auto) Eos % (Auto) Baso % (Auto) Lymph # (Auto) [place] # (Auto) Eos # (Auto) Baso # (Auto) Abs Immat Gran (auto) Absolute Neuts (auto) Absolute Nucleated RBC Nucleated RBC % (auto) ESR Anion Gap 12 Estim Creat Clear Calc 55.5 Estimated GFR 42 POC Glucose 88 Random Glucose 104 D Lactic Acid Calcium 8.8 Total Bilirubin Direct Bilirubin AST ALT Alkaline Phosphatase C-Reactive Protein Total Protein Albumin Lipase Ethyl Alcohol Acetone, Qual COVID-19 (JOSE DAVID) COVID-19 Clin Com Assessment and Plan (1) Diabetic infection of left foot: Status: Acute (2) Osteomyelitis: Status: Acute (3) Diabetes type 2, controlled: Status: Acute Plan 56-year-old male with past medical history of diabetes presents to the hospital with worsening diabetic foot wound. # diabetic foot wound/osteomyelitis - has increasing ESR, as well as CRP - evidence of osteomyelitis on x-ray - was seen by infectious disease on 04/22 on his previous admission, was recommended to continue daptomycin for 42 days - failed outpatient therapy, will start him on vancomycin and Zosyn given the evidence of gas-forming infection - infectious disease consulted - general surgery consult -Vascular surgery consult, he likely needs amputation # hyperglycemia - not in DKA or HHS - continue low-dose sliding scale insulin - will treat with lispro as well as regular insulin as needed for elevated glucose - continue home Lantus - diabetic diet # normocytic anemia - appears chronic - no evidence of acute bleed - follow CBC - may need further workup if he continues to drop in his hemoglobin # peripheral vascular disease - continue statin # hypertension - stable - continue antihypertensives # history of opioid use - continue methadone DVT prophylaxis:? Heparin subQ In my clinical judgment, the patient requires continued hospitalization for the following reasons: Osteomylitis that has failed outpatient antibiootics and may need amputation Quality Stroke Does the patient have a stroke diagnosis?: No VTE Prior VTE?: No VTE Risk Level:: Medical - moderate - high VTE Device Contraindication: Treatment Not Indicated VTE Drug Contraindication: N/A - Med Ordered
--- NOTE | 2022-05-13 12:22 | MHC.CM.PN ---
IMM DELIVERED CM MET WITH PATIENT IN ED OVERFLOW, LIVES WITH SPOUSE IN AN APARTMENT. NO SERVICES OR DME. PT STATES HE HAS COPY OF HCP AT HOME, WILL HAVE SPOUSE BRING IN. COVID VAX X 3 WITH [facility]. PT OPEN TO [facility] REFERRALS IF NEEDED ON DC. PCP DR. COLIN SON WILL TRANSPORT HOME ON DC
--- NOTE | 2022-05-13 12:52 | PM.CNGS ---
History of Present Illness Consult details Consult date: 05/13/22 Reason for consult: wound care Narrative: very complex 56-year-old gentleman presents to the hospital for nonhealing ulcers of the left foot. He had been admitted recently in the past for this diabetic foot infection and underwent toe amputations. He was scheduled for outpatient follow-up regarding an angiogram. Also of note position he developed significant renal insufficiency. He now presents for Hospital evaluation. Review of Systems Review of Systems: Yes all other systems are reviewed and are negative Constitutional: Constitutional: Reports no additional constitutional complaints ENT: Reports Normal hearing present Cardiovascular: Cardiovascular: Denies chest pain, Denies chest pain at rest, Denies chest pain with activity and Denies pedal edema Respiratory: Respiratory: Denies cough Gastrointestinal: Gastrointestinal: Denies abdominal pain Musculoskeletal: Musculoskeletal: Denies abnormal gait, Denies muscle cramps and Denies radiating pain into limb Integumentary/Breasts: Skin/Breast: Denies skin ulcer and Denies wounds Neurologic: Reports Normal hearing present and Denies abnormal gait Psychiatric: Psychiatric: Reports no additional psychiatric complaints [facility] Past Medical History Medical History Chronic anemia CKD (chronic kidney disease) Diabetes Diabetic infection of left foot Opioid use disorder Osteomyelitis PAD (peripheral artery disease) Social History Social History Household Members: Unknown / Unable to assess Housing: Unknown / Unable to assess Patient Tobacco Use Status: Never used Tobacco Advance Directives: No Advance Directives Information Provided: No service: No Current occupational status: disabled Meds Allergies Allergy/AdvReac Type Severity Reaction Status Date / Time No Known Allergies Allergy Verified 02/01/22 12:12 [No Known Allergies*] Active Medications: Current Medications Acetaminophen (Acetaminophen 325 Mg Tablet) 650 mg PO Q6H PRN PRN Reason: Pain, Mild (Pain Scale 1-3) Atorvastatin Calcium (Atorvastatin Calcium 10 Mg Tablet) 10 mg PO DAILY [facility] [place] Last Admin: 05/13/22 08:01 Dose: 10 mg Carvedilol (Carvedilol 25 Mg Tablet) 25 mg PO BID MARIA ELENA; Protocol Last Admin: 05/13/22 08:02 Dose: 25 mg Dextrose (Dextrose 50 % 25 Gm/50 Ml Syringe) 25 gm IVPUSH Q15M PRN; Protocol PRN Reason: per Hypoglycemia Standing Ord. Last Admin: 05/13/22 04:12 Dose: 25 gm Docusate Sodium (Docusate Sodium 100 Mg Capsule) 100 mg PO DAILY PRN PRN Reason: Constipation Ferrous Sulfate (Ferrous Sulfate 324 Mg Tablet.) 324 mg PO DAILY [facility] [place] Last Admin: 05/13/22 08:02 Dose: 324 mg Glucose (Glucose Gel 15 Gm Gel..Gram.) 15 gm PO Q15M PRN; Protocol PRN Reason: per Hypoglycemia Standing Ord. Heparin Sodium (Porcine) (Heparin Sodium,Porcine 5,000 Unit/Ml Vial) 5,000 unit SUBCUT Q12H [facility] [place] Last Admin: 05/13/22 08:01 Dose: 5,000 unit Hydroxyzine HCl (Hydroxyzine Hcl 25 Mg Tablet) 25 mg PO TID PRN PRN Reason: itching Piperacillin Sod/Tazobactam (Sod 3.375 gm/ Sodium Chloride) 50 mls @ 100 mls/hr IV Q6H [facility] Last Admin: 05/13/22 08:00 Dose: 100 mls/hr Vancomycin HCl 1,000 mg/ (Sodium Chloride) 270 mls @ 270 mls/hr IV Q24H [facility] Insulin Glargine (Insulin Glargine,Hum.Rec.Anlog 100 Unit/Ml 10 Ml Vial) 20 unit SUBCUT DAILY [facility] [place] Last Admin: 05/13/22 08:37 Dose: Not Given Insulin Human Lispro (Insulin Lispro 100 Unit/Ml 3 Ml Vial) 0 unit SUBCUT QIDACHS [facility] [place]; Protocol Last Admin: 05/13/22 07:25 Dose: Not Given Lisinopril (Lisinopril 20 Mg Tablet) 20 mg PO DAILY [facility]; Protocol Last Admin: 05/13/22 08:01 Dose: 20 mg Methadone HCl (Methadone Hcl 20 Mg/2 Ml Oral.Conc) 55 mg PO DAILY [facility] [place] Morphine Sulfate (Morphine Sulfate 4 Mg/Ml Cartridge) 4 mg IVPUSH Q4H PRN; Protocol PRN Reason: Pain, Severe (Pain Scale 7-10) Last Admin: 05/13/22 04:11 Dose: 4 mg Nifedipine (Nifedipine Er 30 Mg Tab.Er.24) 90 mg PO DAILY [facility] [place] [place]; Protocol Last Admin: 05/13/22 08:48 Dose: 90 mg Omeprazole (Omeprazole 20 Mg Capsule.) 20 mg PO DAILY@0630 [facility] Last Admin: 05/13/22 08:01 Dose: 20 mg Ondansetron HCl (Ondansetron Hcl 4 Mg/2 Ml Vial) 4 mg IVPUSH Q8H PRN PRN Reason: Nausea and Vomiting Last Admin: 05/13/22 08:32 Dose: 4 mg Oxycodone HCl (Oxycodone Hcl Immed Release 5 Mg Tablet) 5 mg PO Q6H PRN PRN Reason: Pain, Severe (Pain Scale 7-10) Last Admin: 05/13/22 03:14 Dose: 5 mg Pharmacy Consult (Consult Rx Perform Med Rec) 1 each MISCELLANE ONCE PRN PRN Reason: Consult order Pharmacy Consult (Consult Rx Vancomycin Dosing) 1 each MISCELLANE DAILY PRN PRN Reason: Consult order Sodium Chloride (0.9 % Sodium Chloride Flush 3 Ml Syringe) 3 ml IVFLUSH QSHIFT [facility] [place] Last Admin: 05/13/22 07:59 Dose: 3 ml Tamsulosin HCl (Tamsulosin Hcl 0.4 Mg Capsule) 0.4 mg PO DAILY [facility] [place] Last Admin: 05/13/22 08:02 Dose: 0.4 mg Home Medications Medication Instructions Recorded Confirmed Last Taken Type atorvastatin 10 mg tablet 1 tab PO DAILY 04/05/22 05/12/22 Unknown History insulin aspart U-100 100 unit/mL 0 sliding scale dose subcut QIDACHS 04/05/22 05/12/22 Unknown History (3 mL) subcutaneous pen (Novolog Flexpen U-100 Insulin aspart) insulin glargine 100 unit/mL (3 20 - 30 unit subcut DAILY 04/05/22 05/12/22 Unknown History mL) subcutaneous pen (Lantus Solostar U-100 Insulin) lisinopril 20 mg tablet 20 mg PO DAILY 04/05/22 05/12/22 Unknown History methadone 10 mg/5 mL oral solution 55 mg PO DAILY 04/05/22 05/13/22 05/12/22 History omeprazole 20 mg capsule,delayed 20 mg PO DAILY 04/05/22 05/12/22 Unknown History release daptomycin 500 mg intravenous 500 mg IV DAILY 05/12/22 05/12/22 History solution Physical Exam Vital Signs: Vital Signs: Last Vital Signs Temp 98.3 F 05/12/22 19:45 Pulse 82 05/13/22 06:48 Resp 12 05/13/22 06:48 BP 148/67 H 05/13/22 08:02 Pulse Ox 92 05/13/22 06:48 O2 Del Method 05/13/22 06:48 O2 Flow Rate 2 05/13/22 05:02 BMI result Body Mass Index 36.0 Const: General: cooperative, healthy appearing and comfortable Orientation/consciousness: oriented to person, oriented to place and oriented to time HEENT: Head: Yes normal to inspection Neck: Neck: Yes normal visual inspection Carotids: no bruits Chest: Chest palpation & inspection: normal inspection of the chest Resp: Effort & Inspection: normal respiratory effort and able to speak in complete sentences Auscultation: clear to auscultation bilaterally, no crackles, no rales, no rhonchi and no wheezes Cardio: Rate: regular rate Rhythm: regular rhythm Heart sounds: S1 normal heart sound present and S2 normal heart sound present Bruits: no carotid bruits Peripheral pulses: dorsalis pedis present ( Bilateral DP signals) GI: Inspection: Yes normal to inspection Skin: Wounds: amputation site ( left foot amp purulent drainage penetrating down to bone) Hair: normal Neuro: General: oriented to person, oriented to place and oriented to time Cranial nerves: Yes CN's II-XII intact bilaterally and Yes Normal hearing present Cognition (Neuro): normal cognition Motor exam (neuro): 5/5 motor strength present throughout Extrem: Other: venous exam: No significant superficial varicosities or spider telangiectasias, minimal edema General: No clubbing, No cyanosis and No edema Psych: Appearance: grossly normal Mental Status: mental status grossly normal Speech and movement: Normal speech and movement present Results Labs Result diagrams: 05/13/22 06:00 05/13/22 06:00 Labs: Abnormal lab results 05/12/22 05/12/22 05/12/22 Range/Units 17:39 17:45 18:08 WBC 16.4 H (4.8-10.8) X10*3/uL RBC 3.04 L (4.60-5.80) X10*6/uL Hgb 7.7 L (14.0-18.0) g/dl Hct 24.7 L (42.0-52.0) % MCH 25.3 L (27.0-33.0) pg Immature Gran % (Auto) 0.6 H (0.0-0.4) % Neut % (Auto) 88.1 H (45-73) % Lymph % (Auto) 4.6 L (20-40) % Lymph # (Auto) 0.8 L (1.2-4.9) X10*3/uL Abs Immat Gran (auto) 0.09 H (0.00-0.03) X10*3/uL Absolute Neuts (auto) 14.4 H (2.0-8.3) x10*3/uL ESR (0-15) MM/HR Sodium (135-145) mmol/L Chloride (96-108) mmol/L Carbon Dioxide (22-29) mmol/L BUN (9-16) mg/dL Creatinine (0.5-1.4) mg/dL POC Glucose > 600 H* > 600 H* (60-115) mg/dL Random Glucose (60-115) mg/dL C-Reactive Protein (< or = 0.50) mg/dL Albumin (3.5-5.0) g/dL 05/12/22 05/12/22 05/12/22 Range/Units 18:08 20:35 21:16 WBC (4.8-10.8) X10*3/uL RBC (4.60-5.80) X10*6/uL Hgb (14.0-18.0) g/dl Hct (42.0-52.0) % MCH (27.0-33.0) pg Immature Gran % (Auto) (0.0-0.4) % Neut % (Auto) (45-73) % Lymph % (Auto) (20-40) % Lymph # (Auto) (1.2-4.9) X10*3/uL Abs Immat Gran (auto) (0.00-0.03) X10*3/uL Absolute Neuts (auto) (2.0-8.3) x10*3/uL ESR 124 H (0-15) MM/HR Sodium 132 L (135-145) mmol/L Chloride 94 L (96-108) mmol/L Carbon Dioxide (22-29) mmol/L BUN 32 H (9-16) mg/dL Creatinine 2.13 H (0.5-1.4) mg/dL POC Glucose > 600 H* (60-115) mg/dL Random Glucose 775 H* (60-115) mg/dL C-Reactive Protein 23.81 H (< or = 0.50) mg/dL Albumin 3.3 L (3.5-5.0) g/dL 05/12/22 05/12/22 05/12/22 Range/Units 21:30 23:01 23:25 WBC (4.8-10.8) X10*3/uL RBC (4.60-5.80) X10*6/uL Hgb (14.0-18.0) g/dl Hct (42.0-52.0) % MCH (27.0-33.0) pg Immature Gran % (Auto) (0.0-0.4) % Neut % (Auto) (45-73) % Lymph % (Auto) (20-40) % Lymph # (Auto) (1.2-4.9) X10*3/uL Abs Immat Gran (auto) (0.00-0.03) X10*3/uL Absolute Neuts (auto) (2.0-8.3) x10*3/uL ESR (0-15) MM/HR Sodium (135-145) mmol/L Chloride (96-108) mmol/L Carbon Dioxide (22-29) mmol/L BUN (9-16) mg/dL Creatinine (0.5-1.4) mg/dL POC Glucose 599 H* 560 H* 501 H* (60-115) mg/dL Random Glucose (60-115) mg/dL C-Reactive Protein (< or = 0.50) mg/dL Albumin (3.5-5.0) g/dL 05/13/22 05/13/22 05/13/22 Range/Units 00:17 01:47 05:00 WBC (4.8-10.8) X10*3/uL RBC (4.60-5.80) X10*6/uL Hgb (14.0-18.0) g/dl Hct (42.0-52.0) % MCH (27.0-33.0) pg Immature Gran % (Auto) (0.0-0.4) % Neut % (Auto) (45-73) % Lymph % (Auto) (20-40) % Lymph # (Auto) (1.2-4.9) X10*3/uL Abs Immat Gran (auto) (0.00-0.03) X10*3/uL Absolute Neuts (auto) (2.0-8.3) x10*3/uL ESR (0-15) MM/HR Sodium (135-145) mmol/L Chloride (96-108) mmol/L Carbon Dioxide (22-29) mmol/L BUN (9-16) mg/dL Creatinine (0.5-1.4) mg/dL POC Glucose 453 H* 253 H 147 H (60-115) mg/dL Random Glucose (60-115) mg/dL C-Reactive Protein (< or = 0.50) mg/dL Albumin (3.5-5.0) g/dL 05/13/22 05/13/22 05/13/22 Range/Units 05:57 06:00 06:00 WBC 15.4 H (4.8-10.8) X10*3/uL RBC 2.79 L (4.60-5.80) X10*6/uL Hgb 7.1 L (14.0-18.0) g/dl Hct 22.8 L (42.0-52.0) % MCH 25.4 L (27.0-33.0) pg Immature Gran % (Auto) 0.5 H (0.0-0.4) % Neut % (Auto) 81.1 H (45-73) % Lymph % (Auto) 11.6 L (20-40) % Lymph # (Auto) (1.2-4.9) X10*3/uL Abs Immat Gran (auto) 0.07 H (0.00-0.03) X10*3/uL Absolute Neuts (auto) 12.5 H (2.0-8.3) x10*3/uL ESR (0-15) MM/HR Sodium (135-145) mmol/L Chloride (96-108) mmol/L Carbon Dioxide 30 H (22-29) mmol/L BUN 27 H (9-16) mg/dL Creatinine 1.71 H (0.5-1.4) mg/dL POC Glucose 133 H (60-115) mg/dL Random Glucose (60-115) mg/dL C-Reactive Protein (< or = 0.50) mg/dL Albumin (3.5-5.0) g/dL Short CBC 05/12/22 05/13/22 Range/Units 18:08 06:00 WBC 16.4 H 15.4 H (4.8-10.8) X10*3/uL Hgb 7.7 L 7.1 L (14.0-18.0) g/dl Hct 24.7 L 22.8 L (42.0-52.0) % Plt Count 186 D 189 (160-400) X10*3/uL BMP 05/12/22 05/13/22 18:08 06:00 Sodium 132 L 142 Potassium 4.5 3.8 Chloride 94 L 104 Carbon Dioxide 27 30 H BUN 32 H 27 H Creatinine 2.13 H 1.71 H Calcium 8.7 8.8 Liver Function 05/12/22 Range/Units 18:08 Total Bilirubin 0.4 (0.0-1.0) mg/dL Direct Bilirubin 0.2 (0.0-0.5) mg/dL AST 11 (5-37) U/L ALT 15 (0-40) U/L Alkaline Phosphatase 116 (39-117) U/L Albumin 3.3 L (3.5-5.0) g/dL All other labs normal. Assessment and Plan (1) PAD (peripheral artery disease): Status: Acute in short patient has PA D as seen by previous ultrasound. The patient will require endovascular intervention. Unfortunately angio suite is down. The hopes that it may be up within the next day or 2. Should this not happen the patient may require transfer to another institution. We will monitor the situation closely. (2) Diabetic infection of left foot: Status: Acute Plan This is a diabetic foot ulcer penetrating to bone. He most likely has osteomyelitis. The patient was seen and examined with Infectious Disease team as well. He will require angiogram and most likely transmetatarsal amputation after this. At the current time would continue with IV antibiotic therapy. Thank you for allowing us to assist in this patients care. Procedures Date of Service Date of Service: 05/13/22
[2022-05-13 13:10] LABS: Glucose, Whole Blood 182 mg/dL (60-115)
[2022-05-13] MEDS: Insulin Lispro 100 UNIT/ML 3 ML VIAL SUBCUT ×3 (13:52→21:43)
--- NOTE | 2022-05-13 13:54 | PC.NURSE ---
Methadone given. Not able to save d/t MAR saying provider on screen
[2022-05-13] MEDS: methADONE HCl 20 MG/2 ML ORAL.CONC 55 MG PO (13:57)
--- NOTE | 2022-05-13 20:19 | PC.NURSE ---
ASSUMED CARES OF PATIENT AT THIS TIME ,BED BATH GIVEN ,BEDDING CHANGE ,PATIENT REFUSED DINNER BECAUSE HE DID NOT LIKE IT ,HAD TURKEY SANDWICH INSTEAD WITH APPLE JUICE .
[2022-05-13 20:30] LABS: Glucose, Whole Blood 195 mg/dL (60-115)
[2022-05-13 20:47] LABS: Glucose, Whole Blood 329 mg/dL (60-115)
--- NOTE | 2022-05-13 21:09 | PC.NURSE ---
Care delayed due to this RN being in another room with a critical pt.
[2022-05-13] MEDS: vancomycin HCL 1,000 MG in 0.9 % Sodium Chloride 250 ML 270 MG IV (21:50)
[2022-05-14] VITALS (8 sets, daily range): BP systolic 82–109; BP diastolic 48–62; PULSE 65–82; RESP 16–19; TEMP 36.2–37; O2SAT 90–98
[2022-05-14] MEDS: Piperacillin Sodium/Tazobactam 3.375 GM in 0.9 % Sodium Chloride 50 ML IV ×4 (00:33→18:34)
[2022-05-14] MEDS: 0.9 % Sodium Chloride Flush 3 ML SYRINGE IVFLUSH ×3 (00:33→20:41)
--- NOTE | 2022-05-14 00:54 | PM.EVENT ---
Event Note Date of Service: 05/14/22 Event Note: hicknan line noted to benot flushing pt has peripheral iv
[2022-05-14] MEDS: oxyCODONE HCl Immed Release 5 MG TABLET PO ×2 (02:46→06:17)
[2022-05-14] MEDS: Acetaminophen 325 MG TABLET 650 MG PO (02:46)
[2022-05-14] MEDS: Heparin Sodium,Porcine 5,000 UNIT/ML VIAL 5000 UNIT SUBCUT ×2 (06:17→18:33)
[2022-05-14] MEDS: Omeprazole 20 MG CAPSULE.DR PO (06:17)
[2022-05-14] MEDS: Insulin Glargine,Hum.rec.anlog 100 UNIT/ML 10 ML VIAL 20 UNIT SUBCUT (07:38)
[2022-05-14] MEDS: Atorvastatin Calcium 10 MG TABLET PO (07:39)
[2022-05-14] MEDS: NIFEdipine ER 30 MG TAB.ER.24 90 MG PO (07:39)
[2022-05-14] MEDS: Ferrous Sulfate 324 MG TABLET.DR PO (07:39)
[2022-05-14] MEDS: Tamsulosin HCL 0.4 MG CAPSULE PO (07:39)
[2022-05-14] MEDS: carvediloL 25 MG TABLET PO (07:39)
[2022-05-14] MEDS: lisinopriL 20 MG TABLET PO (07:39)
[2022-05-14] MEDS: methADONE HCl 20 MG/2 ML ORAL.CONC 55 MG PO (07:40)
[2022-05-14 07:55] LABS: Glucose, Whole Blood 341 mg/dL (60-115)
--- NOTE | 2022-05-14 09:02 | MHC.CM.PN ---
[facility]
[2022-05-14] MEDS: Insulin Lispro 100 UNIT/ML 3 ML VIAL SUBCUT ×4 (09:03→20:41)
[2022-05-14 10:19] LABS: MANUAL DIFF FLAG NO
[2022-05-14 10:24] LABS: Basophils Percent Auto 0.4 % (0-2); Eosinophils Absolute Auto 0.1 X10*3/uL (0.0-0.4); Eosinophils Percent Auto 0.6 % (0-4); Hematocrit 21.1 % (42.0-52.0); Imm Gran Abs Auto 0.05 X10*3/uL (0.00-0.03); Imm Gran Pct Auto 0.5 % (0.0-0.4); Mean Corpuscular HGB Conc 30.3 g/dl (31.0-36.0); Mean Corpuscular Hemoglobin 25.3 pg (27.0-33.0); Mean Corpuscular Volume 83.4 fL (80.0-98.0); Mean Platelet Volume 11.8 fL (9.4-12.4); Monocytes Absolute Auto 0.7 X10*3/uL (0.1-1.2); Neutrophils Absolute Auto 8.1 x10*3/uL (2.0-8.3); Neutrophils Percent Auto 74.5 % (45-73); Platelet Count 195 X10*3/uL (160-400); Red Blood Count 2.53 X10*6/uL (4.60-5.80); White Blood Count 10.8 X10*3/uL (4.8-10.8)
[2022-05-14 10:29] LABS: Hemoglobin 6.4 g/dl (14.0-18.0)
[2022-05-14 10:52] LABS: Anion Gap 15 (12-20); Blood Urea Nitrogen 39 mg/dL (9-16); Calcium 8.2 mg/dL (8.4-10.2); Carbon Dioxide 27 mmol/L (22-29); Chloride 101 mmol/L (96-108); Estimated Glomerular Filt Rate 34; Glucose Random 415 mg/dL (60-115); Potassium 4.9 mmol/L (3.3-5.1); Sodium 138 mmol/L (135-145)
--- NOTE | 2022-05-14 11:04 | HO.VASCPN ---
Subjective Subjective Date of Service: 05/14/22 Patient reports: no new complaints Interval history: Patient seen and examined in follow-up. Complex poorly controlled diabetic with nonhealing left foot amputation site. He has been receiving IV antibiotics. Now for follow-up. Physical Exam Vital Signs: Vital Signs: Last Vital Signs Temp 97.5 F 05/14/22 08:13 Pulse 71 05/14/22 08:13 Resp 18 05/14/22 08:13 BP 100/54 L 05/14/22 08:13 Pulse Ox 98 05/14/22 08:13 O2 Del Method 05/14/22 08:13 O2 Flow Rate 1 05/14/22 08:13 BMI result Body Mass Index 36.0 Const: General: cooperative, healthy appearing and no acute distress Orientation/consciousness: oriented to person, oriented to place and oriented to time HEENT: Head: Yes normal to inspection Neck: Carotids: no bruits Chest: Chest palpation & inspection: normal inspection of the chest Resp: Effort & Inspection: normal respiratory effort and able to speak in complete sentences Auscultation: clear to auscultation bilaterally Cardio: Rate: regular rate Heart sounds: S1 normal heart sound present and S2 normal heart sound present Peripheral pulses: dorsalis pedis present ( Bilateral DP signal) GI: Inspection: Yes normal to inspection Skin: General skin exam: no rashes or lesions noted Wounds: wounds noted ( left lateral foot purulence material probing to bone) Neuro: General: oriented to person, oriented to place, oriented to time and CN's II-XI intact bilaterally Extrem: General: Yes normal to inspection, Yes full ROM and Yes no clubbing, cyanosis or edema Psych: Appearance: grossly normal and well kempt Speech and movement: Normal speech and movement present Affect: normal affect Progress Note: A&P Assessment and plan (1) PAD (peripheral artery disease): Status: Acute Assessment and Plan: Patient notes nonhealing left leg ulcer. I have discussed the pathophysiology of peripheral vascular disease with the patient. I have also discussed risk factor modification. I have reviewed the patient's arterial testing which reveals stenosis distal SFA and tibial vessels. the patient would benefit from a left leg endovascular peripheral angiogram with possible angioplasty, stent, and/or atherectomy. This has been discussed in detail with the patient along with risks, benefits, and complications. This includes but is not limited to bleeding, infection, heart attack, need for emergent surgical repair, limb ischemia, blood vessel damage, bleeding, puncture, kidney injury, bruising, allergic reaction, and skin reaction. The patient demonstrates a clear understanding. We will schedule for Tuesday in the hopes that the angio suite will be functional at that time. in addition I had an extensive discussion with the patient that he will require further amputation after the angiogram. He is understanding and accepting of this as well. Time Spent With Patient Time: Total time spent is greater than 50% in coordination of care (as documented) at patient's floor/unit and/or counseling patient: Procedures Date of Service Date of Service: 05/14/22 Quality Stroke Does the patient have a stroke diagnosis?: No VTE Prior VTE?: No VTE Risk Level:: Medical - moderate - high VTE Device Contraindication: Treatment Not Indicated VTE Drug Contraindication: N/A - Med Ordered
[2022-05-14] MEDS: Lactated Ringers 1,000 ML 100 ML IVCONT (12:45)
--- NOTE | 2022-05-14 12:46 | MHC.CM.PN ---
EMR REVIEWED, PER HOSPITALIST ANTIC PT WILL NEED AMP & NO PLAN FOR D/C PT WILL NEED AMP, PER SURGICAL PT WILL HAVE ANGIOGRAM TUESDAY IF ANGIO SUITE UP AND RUNNING, NO PLAN FOR D/C OVER W/E, CM WILL CONT TO FOLLOW D/C NEEDS.
[2022-05-14] MEDS: Morphine Sulfate 4 MG/ML CARTRIDGE IVPUSH ×2 (12:56→20:40)
[2022-05-14 13:06] LABS: Glucose, Whole Blood 366 mg/dL (60-115)
--- NOTE | 2022-05-14 13:30 | PC.NURSE ---
Patient refused blood transfusion, STACY Garcia at bedside at this time.
[2022-05-14 13:59] LABS: Appearance Urine Turbid; Color Urine Yellow; Glucose Urine UA 250 mg/dL (Negative); Leukocyte Esterase Urine Large (3+) (Negative); Nitrite Urine Negative (Negative); Specific Gravity - Urine 1.025 (1.005-1.025); UMIC TRIGGER UACC YES; Urine Blood Trace (Negative); Urine Ketones Negative (Negative); Urine Protein 30 (1+) mg/dL (Neg-Trace)
[2022-05-14 14:05] LABS: Bacteria Urine None Seen (None Seen); Hyaline Casts Urine 0-2 /LPF (0-2); RBC Urine 0-2 /HPF (0-2); Squamous Epithelial Cell Urine 0-2 /HPF (0-2); UACC Culture Trigger YES; WBC Urine >50 /HPF (0-5)
--- NOTE | 2022-05-14 15:57 | P.CNID_ITS ---
History of Present Illness Data of Consult Service Date: 05/14/22 Requesting physician: Jamila Haq Primary Care Provider: Unknown Physician HPI Reason for consult: necrotic left foot He has discharge and odor left foot for couple weeks. He has no fever or chills. He has discomfort and drainage. Review of Systems Review of Systems: Yes all other systems are reviewed and are negative PMFSH Past Medical History Medical History Chronic anemia CKD (chronic kidney disease) Diabetes Diabetic infection of left foot Opioid use disorder Osteomyelitis PAD (peripheral artery disease) Family History Family history: reviewed and not pertinent Social History Social History Household Members: Unknown / Unable to assess Housing: Unknown / Unable to assess Patient Tobacco Use Status: Never used Tobacco service: No Current occupational status: [employer] Allergies Allergy/AdvReac Type Severity Reaction Status Date / Time No Known Allergies Allergy Verified 02/01/22 12:12 [No Known Allergies*] Active Medications: Current Medications Acetaminophen (Acetaminophen 325 Mg Tablet) 650 mg PO Q6H PRN PRN Reason: Pain, Mild (Pain Scale 1-3) Last Admin: 05/14/22 02:46 Dose: 650 mg Atorvastatin Calcium (Atorvastatin Calcium 10 Mg Tablet) 10 mg PO DAILY [facility] Last Admin: 05/14/22 07:39 Dose: 10 mg Carvedilol (Carvedilol 25 Mg Tablet) 25 mg PO BID [facility]; Protocol Last Admin: 05/14/22 07:39 Dose: 25 mg Dextrose (Dextrose 50 % 25 Gm/50 Ml Syringe) 25 gm IVPUSH Q15M PRN; Protocol PRN Reason: per Hypoglycemia Standing Ord. Last Admin: 05/13/22 04:12 Dose: 25 gm Docusate Sodium (Docusate Sodium 100 Mg Capsule) 100 mg PO DAILY PRN PRN Reason: Constipation Ferrous Sulfate (Ferrous Sulfate 324 Mg Tablet.Dr) 324 mg PO DAILY [facility] Last Admin: 05/14/22 07:39 Dose: 324 mg Glucose (Glucose Gel 15 Gm Gel..Gram.) 15 gm PO Q15M PRN; Protocol PRN Reason: per Hypoglycemia Standing Ord. Heparin Sodium (Porcine) (Heparin Sodium,Porcine 5,000 Unit/Ml Vial) 5,000 unit SUBCUT Q12H [facility] Last Admin: 05/14/22 06:17 Dose: 5,000 unit Hydroxyzine HCl (Hydroxyzine Hcl 25 Mg Tablet) 25 mg PO TID PRN PRN Reason: itching Piperacillin Sod/Tazobactam (Sod 3.375 gm/ Sodium Chloride) 50 mls @ 100 mls/hr IV Q6H [facility] Last Infusion: 05/14/22 15:00 Dose: Infused Vancomycin HCl 1,000 mg/ (Sodium Chloride) 270 mls @ 270 mls/hr IV Q24H [facility] Last Infusion: 05/14/22 00:05 Dose: Infused Lactated Ringer's (Lr) 1,000 mls @ 100 mls/hr IVCONT .Q10H [facility] Last Admin: 05/14/22 12:45 Dose: 100 mls/hr Sodium Chloride (Ns) 1,000 mls @ 100 mls/hr IVCONT .Q10H [facility] Insulin Glargine (Insulin Glargine,Hum.Rec.Anlog 100 Unit/Ml 10 Ml Vial) 20 unit SUBCUT DAILY [facility] Last Admin: 05/14/22 07:38 Dose: 20 unit Insulin Human Lispro (Insulin Lispro 100 Unit/Ml 3 Ml Vial) 0 unit SUBCUT QIDACHS [facility]; Protocol Last Admin: 05/14/22 13:04 Dose: 10 unit Lisinopril (Lisinopril 20 Mg Tablet) 20 mg PO DAILY [facility]; Protocol Last Admin: 05/14/22 07:39 Dose: 20 mg Methadone HCl (Methadone Hcl 20 Mg/2 Ml Oral.Conc) 55 mg PO DAILY [facility] Last Admin: 05/14/22 07:40 Dose: 55 mg Morphine Sulfate (Morphine Sulfate 4 Mg/Ml Cartridge) 4 mg IVPUSH Q4H PRN; Protocol PRN Reason: Pain, Severe (Pain Scale 7-10) Last Admin: 05/14/22 12:56 Dose: 4 mg Nifedipine (Nifedipine Er 30 Mg Tab.Er.24) 90 mg PO DAILY [facility]; Protocol Last Admin: 05/14/22 07:39 Dose: 90 mg Omeprazole (Omeprazole 20 Mg Capsule.Dr) 20 mg PO DAILY@0630 [facility] Last Admin: 05/14/22 06:17 Dose: 20 mg Ondansetron HCl (Ondansetron Hcl 4 Mg/2 Ml Vial) 4 mg IVPUSH Q8H PRN PRN Reason: Nausea and Vomiting Last Admin: 05/13/22 08:32 Dose: 4 mg Oxycodone HCl (Oxycodone Hcl Immed Release 5 Mg Tablet) 5 mg PO Q4H PRN PRN Reason: Pain, Severe (Pain Scale 7-10) Last Admin: 05/14/22 06:17 Dose: 5 mg Pharmacy Consult (Consult Rx Perform Med Rec) 1 each MISCELLANE ONCE PRN PRN Reason: Consult order Pharmacy Consult (Consult Rx Vancomycin Dosing) 1 each MISCELLANE DAILY PRN PRN Reason: Consult order Sodium Chloride (0.9 % Sodium Chloride Flush 3 Ml Syringe) 3 ml IVFLUSH QSHIFT [facility] Last Admin: 05/14/22 07:38 Dose: 3 ml Tamsulosin HCl (Tamsulosin Hcl 0.4 Mg Capsule) 0.4 mg PO DAILY [facility] Last Admin: 05/14/22 07:39 Dose: 0.4 mg Home Medications Medication Instructions Recorded Confirmed Last Taken Type atorvastatin 10 mg tablet 1 tab PO DAILY 04/05/22 05/12/22 Unknown History insulin aspart U-100 100 unit/mL 0 sliding scale dose subcut QIDACHS 04/05/22 05/12/22 Unknown History (3 mL) subcutaneous pen (Novolog Flexpen U-100 Insulin aspart) insulin glargine 100 unit/mL (3 20 - 30 unit subcut DAILY 04/05/22 05/12/22 Unknown History mL) subcutaneous pen (Lantus Solostar U-100 Insulin) lisinopril 20 mg tablet 20 mg PO DAILY 04/05/22 05/12/22 Unknown History methadone 10 mg/5 mL oral solution 55 mg PO DAILY 04/05/22 05/13/22 05/12/22 History omeprazole 20 mg capsule,delayed 20 mg PO DAILY 04/05/22 05/12/22 Unknown History release daptomycin 500 mg intravenous 500 mg IV DAILY 05/12/22 05/12/22 History solution Physical Exam Vital Signs: Vital Signs: Last Vital Signs Temp 97.9 F 05/14/22 12:18 Pulse 71 05/14/22 12:18 Resp 17 05/14/22 12:18 BP 100/59 L 05/14/22 12:18 Pulse Ox 95 05/14/22 12:18 O2 Del Method 05/14/22 12:18 O2 Flow Rate 1 05/14/22 12:18 BMI result Body Mass Index 36.0 Const: General: cooperative HEENT: Head: Yes normal to inspection Face and sinus: Yes normal facial exam Mouth: Normal oral and palatal mucosa present Teeth and gingiva: dentition normal Eyes: General: appearance normal, both eyes and all related structures Pupils: Equal, round and reactive pupils present Resp: Effort & Inspection: normal respiratory effort Cardio: Rate: regular rate Rhythm: regular rhythm GI: Palpation (GI): Soft to palpation and nontender : General: Yes no CVA tenderness Back/Spine/Pelvis: Back: no CVA tenderness Skin: General skin exam: no rashes or lesions noted Neuro: General: moves all extremities Cranial nerves: Yes Equal, round and reactive pupils present Extrem: Other: necrotic area near fourth toe Psych: Appearance: grossly normal Results Labs CBC & Chem 7: 05/14/22 09:14 05/14/22 09:14 Labs: Short CBC 05/14/22 Range/Units 09:14 WBC 10.8 (4.8-10.8) X10*3/uL Hgb 6.4 L* (14.0-18.0) g/dl Hct 21.1 L (42.0-52.0) % Plt Count 195 (160-400) X10*3/uL BMP 05/14/22 09:14 Sodium 138 Potassium 4.9 D Chloride 101 Carbon Dioxide 27 BUN 39 H Creatinine 2.06 H Calcium 8.2 L D Urine 05/14/22 Range/Units 13:01 Urine Color Yellow Urine Appearance Turbid Urine pH 5.0 (5.0-9.0) Ur Specific [place] 1.025 (1.005-1.025) Urine Protein 30 (1+) H (Neg-Trace) mg/dL Urine Glucose (UA) 250 H (Negative) mg/dL Microbiology Microbiology Results: Microbiology 05/12/22 18:24 Blood - Venous Blood Culture - Preliminary No growth after 24 hours. 05/12/22 18:24 Blood - Venous Blood Culture - Preliminary No growth after 24 hours. Assessment and Plan (1) Diabetic infection of left foot: Status: Acute This is necrotic and he received multiple antibiotics Plan Definitive surgical therapy Continue antibiotics for now.
[2022-05-14 16:23] LABS: Glucose, Whole Blood 282 mg/dL (60-115)
--- NOTE | 2022-05-14 17:23 | HO.PM.IMPN ---
Subjective Subjective Date of Service: 05/14/22 Interval History: seen and examined this morning follow up for osteomyelitis pain under adequate control no fever, chills Review of Systems Review of Systems: Yes all other systems are reviewed and are negative Constitutional Constitutional: Denies chills and Denies fever(s) ENT Ears, Nose, Mouth, and Throat: Denies dizziness Cardiovascular Cardiovascular: Denies chest pain, Denies palpitations and Denies dyspnea Respiratory Respiratory: Denies cough and Denies dyspnea Gastrointestinal Gastrointestinal: Denies abdominal pain, Denies nausea and Denies vomiting Neurologic Neurologic: Denies dizziness Endocrine Endocrine: Denies palpitations Physical Exam Vital Signs: Vital Signs: Last Vital Signs Temp 97.9 F 05/14/22 12:18 Pulse 71 05/14/22 12:18 Resp 17 05/14/22 12:18 BP 100/59 L 05/14/22 12:18 Pulse Ox 95 05/14/22 12:18 O2 Del Method 05/14/22 12:18 O2 Flow Rate 1 05/14/22 12:18 BMI result Body Mass Index 36.0 Const: General: cooperative, comfortable, alert and awake Nutritional Appearance: overweight Orientation/consciousness: patient oriented x3 Resp: Effort & Inspection: normal respiratory effort and able to speak in complete sentences Cardio: Rate: regular rate Heart sounds: S1 normal heart sound present and S2 normal heart sound present GI: Inspection: No distended Palpation (GI): Soft to palpation and nontender Skin: Other: Malodorous wound; s/p left 4th toe amputation Neuro: General: patient oriented x3 and CN's II-XI intact bilaterally Objective Data Active Medications Acetaminophen (Acetaminophen 325 Mg Tablet) 650 mg PO Q6H PRN PRN Reason: Pain, Mild (Pain Scale 1-3) Last Admin: 05/14/22 02:46 Dose: 650 mg Documented By: PAWAN Atorvastatin Calcium (Atorvastatin Calcium 10 Mg Tablet) 10 mg PO DAILY [facility] Last Admin: 05/14/22 07:39 Dose: 10 mg Documented By: ANDRADE Carvedilol (Carvedilol 25 Mg Tablet) 25 mg PO BID [facility]; Protocol Last Admin: 05/14/22 07:39 Dose: 25 mg Documented By: ANDRADE Dextrose (Dextrose 50 % 25 Gm/50 Ml Syringe) 25 gm IVPUSH Q15M PRN; Protocol PRN Reason: per Hypoglycemia Standing Ord. Last Admin: 05/13/22 04:12 Dose: 25 gm Documented By: EDY Docusate Sodium (Docusate Sodium 100 Mg Capsule) 100 mg PO DAILY PRN PRN Reason: Constipation Ferrous Sulfate (Ferrous Sulfate 324 Mg Tablet.Dr) 324 mg PO DAILY [facility] Last Admin: 05/14/22 07:39 Dose: 324 mg Documented By: ANDRADE Glucose (Glucose Gel 15 Gm Gel..Gram.) 15 gm PO Q15M PRN; Protocol PRN Reason: per Hypoglycemia Standing Ord. Heparin Sodium (Porcine) (Heparin Sodium,Porcine 5,000 Unit/Ml Vial) 5,000 unit SUBCUT Q12H [facility] Last Admin: 05/14/22 06:17 Dose: 5,000 unit Documented By: PAWAN Hydroxyzine HCl (Hydroxyzine Hcl 25 Mg Tablet) 25 mg PO TID PRN PRN Reason: itching Piperacillin Sod/Tazobactam (Sod 3.375 gm/ Sodium Chloride) 50 mls @ 100 mls/hr IV Q6H [facility] Last Infusion: 05/14/22 15:00 Dose: 0 mls/hr Documented By: IVANA Vancomycin HCl 1,000 mg/ (Sodium Chloride) 270 mls @ 270 mls/hr IV Q24H [facility] Last Infusion: 05/14/22 00:05 Dose: 0 mls/hr Documented By: PIPER Lactated Ringer's (Lr) 1,000 mls @ 100 mls/hr IVCONT .Q10H [facility] Last Admin: 05/14/22 12:45 Dose: 100 mls/hr Documented By: ANDRADE Sodium Chloride (Ns) 1,000 mls @ 100 mls/hr IVCONT .Q10H [facility] Insulin Glargine (Insulin Glargine,Hum.Rec.Anlog 100 Unit/Ml 10 Ml Vial) 20 unit SUBCUT DAILY [facility] Last Admin: 05/14/22 07:38 Dose: 20 unit Documented By: ANDRADE Insulin Human Lispro (Insulin Lispro 100 Unit/Ml 3 Ml Vial) 0 unit SUBCUT QIDACHS [facility]; Protocol Last Admin: 05/14/22 16:50 Dose: 6 unit Documented By: AVELINA Lisinopril (Lisinopril 20 Mg Tablet) 20 mg PO DAILY [facility]; Protocol Last Admin: 05/14/22 07:39 Dose: 20 mg Documented By: ANDRADE Methadone HCl (Methadone Hcl 20 Mg/2 Ml Oral.Conc) 55 mg PO DAILY [facility] Last Admin: 05/14/22 07:40 Dose: 55 mg Documented By: ANDRADE Morphine Sulfate (Morphine Sulfate 4 Mg/Ml Cartridge) 4 mg IVPUSH Q4H PRN; Protocol PRN Reason: Pain, Severe (Pain Scale 7-10) Last Admin: 05/14/22 12:56 Dose: 4 mg Documented By: ANDRADE Nifedipine (Nifedipine Er 30 Mg Tab.Er.24) 90 mg PO DAILY [facility]; Protocol Last Admin: 05/14/22 07:39 Dose: 90 mg Documented By: ANDRADE Omeprazole (Omeprazole 20 Mg Capsule.Dr) 20 mg PO DAILY@0630 [facility] Last Admin: 05/14/22 06:17 Dose: 20 mg Documented By: PAWAN Ondansetron HCl (Ondansetron Hcl 4 Mg/2 Ml Vial) 4 mg IVPUSH Q8H PRN PRN Reason: Nausea and Vomiting Last Admin: 05/13/22 08:32 Dose: 4 mg Documented By: VENKATESH Oxycodone HCl (Oxycodone Hcl Immed Release 5 Mg Tablet) 5 mg PO Q4H PRN PRN Reason: Pain, Severe (Pain Scale 7-10) Last Admin: 05/14/22 06:17 Dose: 5 mg Documented By: PAWAN Pharmacy Consult (Consult Rx Perform Med Rec) 1 each MISCELLANE ONCE PRN PRN Reason: Consult order Pharmacy Consult (Consult Rx Vancomycin Dosing) 1 each MISCELLANE DAILY PRN PRN Reason: Consult order Sodium Chloride (0.9 % Sodium Chloride Flush 3 Ml Syringe) 3 ml IVFLUSH QSHIFT [facility] Last Admin: 05/14/22 16:51 Dose: Not Given Documented By: AVELINA Non-Admin Reason: IV Running Tamsulosin HCl (Tamsulosin Hcl 0.4 Mg Capsule) 0.4 mg PO DAILY [facility] Last Admin: 05/14/22 07:39 Dose: 0.4 mg Documented By: ANDRADE Labs CBC & Chem 7: 05/14/22 09:14 05/14/22 09:14 Labs: Laboratory Results - last 24 hr 05/13/22 05/13/22 05/14/22 18:45 20:43 07:45 MCV MCH MCHC RDW Plt Count MPV Immature Gran % (Auto) Neut % (Auto) Lymph % (Auto) [place] % (Auto) Eos % (Auto) Baso % (Auto) Lymph # (Auto) [place] # (Auto) Eos # (Auto) Baso # (Auto) Abs Immat Gran (auto) Absolute Neuts (auto) Absolute Nucleated RBC Nucleated RBC % (auto) Smear Path Review Anion Gap Estim Creat Clear Calc Estimated GFR POC Glucose 195 H 329 H 341 H Random Glucose Calcium Urine Color Urine Appearance Urine pH Ur Specific [place] Urine Protein Urine Glucose (UA) Urine Ketones Urine Blood Urine Nitrite Ur Leukocyte Esterase Urine RBC Urine WBC Ur Squamous Epith Cells Urine Bacteria Hyaline Casts Blood Type Antibody Screen Crossmatch 05/14/22 05/14/22 05/14/22 09:14 09:14 11:07 MCV 83.4 MCH 25.3 L MCHC 30.3 L RDW 15.0 Plt Count 195 MPV 11.8 Immature Gran % (Auto) 0.5 H Neut % (Auto) 74.5 H Lymph % (Auto) 18.0 L [place] % (Auto) 6.0 Eos % (Auto) 0.6 Baso % (Auto) 0.4 Lymph # (Auto) 2.0 [place] # (Auto) 0.7 Eos # (Auto) 0.1 Baso # (Auto) 0.0 Abs Immat Gran (auto) 0.05 H Absolute Neuts (auto) 8.1 Absolute Nucleated RBC 0.000 Nucleated RBC % (auto) 0.0 Smear Path Review Anion Gap 15 Estim Creat Clear Calc 46.0 Estimated GFR 34 POC Glucose Random Glucose 415 H* Calcium 8.2 L D Urine Color Urine Appearance Urine pH Ur Specific [place] Urine Protein Urine Glucose (UA) Urine Ketones Urine Blood Urine Nitrite Ur Leukocyte Esterase Urine RBC Urine WBC Ur Squamous Epith Cells Urine Bacteria Hyaline Casts Blood Type AB Positive Antibody Screen NEGATIVE Crossmatch See Detail 05/14/22 05/14/22 05/14/22 13:00 13:01 16:13 MCV MCH MCHC RDW Plt Count MPV Immature Gran % (Auto) Neut % (Auto) Lymph % (Auto) [place] % (Auto) Eos % (Auto) Baso % (Auto) Lymph # (Auto) [place] # (Auto) Eos # (Auto) Baso # (Auto) Abs Immat Gran (auto) Absolute Neuts (auto) Absolute Nucleated RBC Nucleated RBC % (auto) Smear Path Review Anion Gap Estim Creat Clear Calc Estimated GFR POC Glucose 366 H* 282 H Random Glucose Calcium Urine Color Yellow Urine Appearance Turbid Urine pH 5.0 Ur Specific [place] 1.025 Urine Protein 30 (1+) H Urine Glucose (UA) 250 H Urine Ketones Negative Urine Blood Trace H Urine Nitrite Negative Ur Leukocyte Esterase Large (3+) H Urine RBC 0-2 Urine WBC >50 H Ur Squamous Epith Cells 0-2 Urine Bacteria None Seen Hyaline Casts 0-2 Blood Type Antibody Screen Crossmatch Microbiology Microbiology Results: Microbiology 05/12/22 18:24 Blood Culture - Preliminary Blood - Venous No growth after 24 hours. 05/12/22 18:24 Blood Culture - Preliminary Blood - Venous No growth after 24 hours. Assessment and Plan (1) Osteomyelitis: Status: Acute Plan 56-year-old male with past medical history of diabetes presents to the hospital with worsening diabetic foot wound. recently discharged with daptomycin diabetic foot wound/osteomyelitis evidence of osteomyelitis on x-ray was seen by infectious disease on 04/22 on his previous admission, was recommended to continue daptomycin for 42 days- failed outpatient therapy seen by ID continue vancomycin and Zosyn for now - will likely need transmetatarsal amputation for definitive treatment seenby general surgery - rec vacsular eval seen by vascular surgery - plan for vascular intervention Tuesday for stenosis of distal SFA and tibial vessels Blood cultures negative to date DM with hyperglycemia - continue sliding scale insulin - continue home Lantus, ADA diet normocytic anemia appears chronic, no evidence of acute bleed probably r/t anemia of chronic inflammation H/H trending down -will obtain iron profile -patient declines blood transfusion at this time CKD3 creatinine trending up follow BMP consider nephrology eval if continues to trend upward -continue IVF peripheral vascular disease - continue statin hypertension BP low -hold all antihypertensives until BP improves -continue IVF OUD - continue methadone Depression with SI pt endorses SI -sitter for safety -Care team evluation DVT prophylaxis: Heparin subQ attending - dr. jack Requires ongoing inpatient hospitalization for management of diabetic foot wound/osteomyelitis, hypotension as well as anemia Quality Stroke Does the patient have a stroke diagnosis?: No VTE Prior VTE?: No VTE Risk Level:: Medical - moderate - high VTE Device Contraindication: Treatment Not Indicated VTE Drug Contraindication: N/A - Med Ordered
[2022-05-14 19:28] LABS: Estimated Glomerular Filt Rate 30
[2022-05-14 19:33] LABS: Vancomycin Random 18.1 mcg/mL (15-20)
--- NOTE | 2022-05-14 19:34 | MHC.CARE ---
Care Team completed [facility] smart sheet.
--- NOTE | 2022-05-14 19:45 | HE.PHANOTE ---
Vancomycin Dosing Addendum Patients Scr went up to 2.26 from 1.71 yesterday. Patients level came back at 18.1 mg/L which is high for someone who has only received two doses so far. This indicates there may be some concern on clearing. Decreased dose to 750mg Q24H. Pharmacy will continue to monitor renal function. Next draw to be 05/17 @1900. Predicted AUC 493 mg/L/hr.
[2022-05-14 20:25] LABS: Glucose, Whole Blood 294 mg/dL (60-115)
[2022-05-14] MEDS: vancomycin HCL 750 MG in 0.9 % Sodium Chloride 250 ML 265 MG IV (20:26)
--- NOTE | 2022-05-14 20:27 | MHC.CARE ---
CARE Team received consult for pt due to SI and depression. Chart review was reviewed and it does not appear that pt is medically cleared at this time, once pt is medically cleared a consult should be placed.
[2022-05-15] VITALS (9 sets, daily range): BP systolic 107–126; BP diastolic 55–67; PULSE 75–90; RESP 14–19; TEMP 36.2–37.1; O2SAT 91–100
[2022-05-15] MEDS: Piperacillin Sodium/Tazobactam 3.375 GM in 0.9 % Sodium Chloride 50 ML IV ×4 (00:25→18:32)
[2022-05-15] MEDS: ondansetron HCL 4 MG/2 ML VIAL IVPUSH (01:46)
[2022-05-15] MEDS: Lactated Ringers 1,000 ML 100 ML IVCONT ×3 (02:36→23:12)
--- NOTE | 2022-05-15 03:17 | PC.NURSE ---
Agnieszka from CARE team called earlier saying to reconsult CARE team when pt is medically cleared.
[2022-05-15] MEDS: Heparin Sodium,Porcine 5,000 UNIT/ML VIAL 5000 UNIT SUBCUT ×2 (06:08→18:32)
[2022-05-15] MEDS: Omeprazole 20 MG CAPSULE.DR PO (06:08)
[2022-05-15 06:51] LABS: Mean Corpuscular HGB Conc 30.7 g/dl (31.0-36.0); Mean Corpuscular Hemoglobin 25.1 pg (27.0-33.0); Mean Corpuscular Volume 81.9 fL (80.0-98.0); Mean Platelet Volume 11.4 fL (9.4-12.4); Platelet Count 199 X10*3/uL (160-400); Red Blood Count 2.43 X10*6/uL (4.60-5.80); White Blood Count 12.2 X10*3/uL (4.8-10.8)
[2022-05-15 07:23] LABS: Glucose, Whole Blood 163 mg/dL (60-115)
[2022-05-15 07:23] LABS: Hematocrit 19.9 % (42.0-52.0); Hemoglobin 6.1 g/dl (14.0-18.0)
[2022-05-15 07:34] LABS: Anion Gap 14 (12-20); Blood Urea Nitrogen 40 mg/dL (9-16); Calcium 7.7 mg/dL (8.4-10.2); Carbon Dioxide 25 mmol/L (22-29); Chloride 103 mmol/L (96-108); Creatinine Clr Calc Pharmacy 42.2; Estimated Glomerular Filt Rate 30; Glucose Random 184 mg/dL (60-115); Iron 30 mcg/dL (45-160); Percent Iron Saturation 20 % (15-50); Potassium 4.4 mmol/L (3.3-5.1); Sodium 138 mmol/L (135-145); Total Iron Binding Capacity 150 mcg/dL (228-428); Unsaturated Iron Binding 120 ug/dL
--- NOTE | 2022-05-15 08:13 | HE.PHANOTE ---
Vancomycin Dosing Addendum Vancomycin trough scheduled for 05/15/22 @1900. Continue with current regimen for now.
[2022-05-15] MEDS: Insulin Lispro 100 UNIT/ML 3 ML VIAL SUBCUT ×4 (08:21→20:49)
[2022-05-15] MEDS: methADONE HCl 20 MG/2 ML ORAL.CONC 55 MG PO (09:51)
[2022-05-15] MEDS: Insulin Glargine,Hum.rec.anlog 100 UNIT/ML 10 ML VIAL 20 UNIT SUBCUT (10:52)
[2022-05-15] MEDS: Atorvastatin Calcium 10 MG TABLET PO (10:53)
[2022-05-15] MEDS: Ferrous Sulfate 324 MG TABLET.DR PO (10:53)
[2022-05-15] MEDS: Tamsulosin HCL 0.4 MG CAPSULE PO (10:54)
--- NOTE | 2022-05-15 11:24 | HO.PM.IMPN ---
Subjective Subjective Date of Service: 05/15/22 Interval History: Follow up for osteomyelitis Upset with possibility of amputation/TMA pain under adequate pain control no fever, chills Review of Systems Review of Systems: Yes all other systems are reviewed and are negative Constitutional Constitutional: Denies chills and Denies fever(s) ENT Ears, Nose, Mouth, and Throat: Denies dizziness Cardiovascular Cardiovascular: Denies chest pain, Denies palpitations and Denies dyspnea Respiratory Respiratory: Denies cough and Denies dyspnea Gastrointestinal Gastrointestinal: Denies abdominal pain, Denies nausea and Denies vomiting Neurologic Neurologic: Denies dizziness Endocrine Endocrine: Denies palpitations Physical Exam Vital Signs: Vital Signs: Last Vital Signs Temp 97.2 F 05/15/22 10:13 Pulse 77 05/15/22 10:13 Resp 18 05/15/22 10:13 BP 107/61 05/15/22 10:13 Pulse Ox 94 05/15/22 08:00 O2 Del Method 05/15/22 08:00 O2 Flow Rate 3 05/15/22 08:00 BMI result Body Mass Index 36.0 Appearing in no acute distress lung sounds are clear to auscultation heart regular rate rhythm, clear S1, S2 positive bowel sounds, abdomen is soft, nontender neuro patient is alert x3, no focal deficits Left foot 4th and 5th toe necrosis with yellow/green drainage, very malodorous Objective Data Active Medications Acetaminophen (Acetaminophen 325 Mg Tablet) 650 mg PO Q6H PRN PRN Reason: Pain, Mild (Pain Scale 1-3) Last Admin: 05/14/22 02:46 Dose: 650 mg Documented By: PAWAN Atorvastatin Calcium (Atorvastatin Calcium 10 Mg Tablet) 10 mg PO DAILY [facility] Last Admin: 05/15/22 10:53 Dose: 10 mg Documented By: CUONG Carvedilol (Carvedilol 25 Mg Tablet) 25 mg PO BID [facility]; Protocol Last Admin: 05/14/22 07:39 Dose: 25 mg Documented By: ANDRADE Dextrose (Dextrose 50 % 25 Gm/50 Ml Syringe) 25 gm IVPUSH Q15M PRN; Protocol PRN Reason: per Hypoglycemia Standing Ord. Last Admin: 05/13/22 04:12 Dose: 25 gm Documented By: EDY Docusate Sodium (Docusate Sodium 100 Mg Capsule) 100 mg PO DAILY PRN PRN Reason: Constipation Ferrous Sulfate (Ferrous Sulfate 324 Mg Tablet.Dr) 324 mg PO DAILY [facility] Last Admin: 05/15/22 10:53 Dose: 324 mg Documented By: CUONG Glucose (Glucose Gel 15 Gm Gel..Gram.) 15 gm PO Q15M PRN; Protocol PRN Reason: per Hypoglycemia Standing Ord. Heparin Sodium (Porcine) (Heparin Sodium,Porcine 5,000 Unit/Ml Vial) 5,000 unit SUBCUT Q12H [facility] Last Admin: 05/15/22 06:08 Dose: 5,000 unit Documented By: HAZEL Hydroxyzine HCl (Hydroxyzine Hcl 25 Mg Tablet) 25 mg PO TID PRN PRN Reason: itching Piperacillin Sod/Tazobactam (Sod 3.375 gm/ Sodium Chloride) 50 mls @ 100 mls/hr IV Q6H [facility] Last Infusion: 05/15/22 07:40 Dose: 100 mls/hr Documented By: MARLENI Lactated Ringer's (Lr) 1,000 mls @ 100 mls/hr IVCONT .Q10H [facility] Last Admin: 05/15/22 02:36 Dose: 100 mls/hr Documented By: HAZEL Sodium Chloride (Ns) 1,000 mls @ 100 mls/hr IVCONT .Q10H [facility] Vancomycin HCl 750 mg/ Sodium (Chloride) 265 mls @ 265 mls/hr IV Q24H [facility] Last Infusion: 05/14/22 21:46 Dose: 0 mls/hr Documented By: HAZEL Insulin Glargine (Insulin Glargine,Hum.Rec.Anlog 100 Unit/Ml 10 Ml Vial) 20 unit SUBCUT DAILY [facility] Last Admin: 05/15/22 10:52 Dose: 20 unit Documented By: CUONG Insulin Human Lispro (Insulin Lispro 100 Unit/Ml 3 Ml Vial) 0 unit SUBCUT QIDACHS [facility]; Protocol Last Admin: 05/15/22 08:21 Dose: 2 unit Documented By: CUONG Lisinopril (Lisinopril 20 Mg Tablet) 20 mg PO DAILY [facility]; Protocol Last Admin: 05/14/22 07:39 Dose: 20 mg Documented By: RIOFERNANDO Methadone HCl (Methadone Hcl 20 Mg/2 Ml Oral.Conc) 55 mg PO DAILY [facility] Last Admin: 05/15/22 09:51 Dose: 55 mg Documented By: MARLENI Morphine Sulfate (Morphine Sulfate 4 Mg/Ml Cartridge) 4 mg IVPUSH Q4H PRN; Protocol PRN Reason: Pain, Severe (Pain Scale 7-10) Last Admin: 05/14/22 20:40 Dose: 4 mg Documented By: HAZEL Nifedipine (Nifedipine Er 30 Mg Tab.Er.24) 90 mg PO DAILY [facility]; Protocol Last Admin: 05/14/22 07:39 Dose: 90 mg Documented By: ANDRADE Omeprazole (Omeprazole 20 Mg Capsule.Dr) 20 mg PO DAILY@0630 [facility] Last Admin: 05/15/22 06:08 Dose: 20 mg Documented By: HAZEL Ondansetron HCl (Ondansetron Hcl 4 Mg/2 Ml Vial) 4 mg IVPUSH Q8H PRN PRN Reason: Nausea and Vomiting Last Admin: 05/15/22 01:46 Dose: 4 mg Documented By: HAZEL Oxycodone HCl (Oxycodone Hcl Immed Release 5 Mg Tablet) 5 mg PO Q4H PRN PRN Reason: Pain, Severe (Pain Scale 7-10) Last Admin: 05/14/22 06:17 Dose: 5 mg Documented By: PAWAN Pharmacy Consult (Consult Rx Perform Med Rec) 1 each MISCELLANE ONCE PRN PRN Reason: Consult order Pharmacy Consult (Consult Rx Vancomycin Dosing) 1 each MISCELLANE DAILY PRN PRN Reason: Consult order Sodium Chloride (0.9 % Sodium Chloride Flush 3 Ml Syringe) 3 ml IVFLUSH QSHIFT [facility] Last Admin: 05/15/22 08:23 Dose: Not Given Documented By: CUONG Non-Admin Reason: IV Running Tamsulosin HCl (Tamsulosin Hcl 0.4 Mg Capsule) 0.4 mg PO DAILY [facility] Last Admin: 05/15/22 10:54 Dose: 0.4 mg Documented By: CUONG Labs CBC & Chem 7: 05/15/22 05:44 05/15/22 05:44 Labs: Laboratory Results - last 24 hr 05/14/22 05/14/22 05/14/22 09:14 11:07 13:00 MCV MCH MCHC RDW Plt Count MPV Absolute Nucleated RBC Nucleated RBC % (auto) Smear Path Review Anion Gap Estim Creat Clear Calc Estimated GFR POC Glucose 366 H* Random Glucose Calcium Iron TIBC % Saturation Unsat Iron Binding Urine Color Urine Appearance Urine pH Ur Specific Normanna Urine Protein Urine Glucose (UA) Urine Ketones Urine Blood Urine Nitrite Ur Leukocyte Esterase Urine RBC Urine WBC Ur Squamous Epith Cells Urine Bacteria Hyaline Casts Random Vancomycin Blood Type AB Positive Antibody Screen NEGATIVE Crossmatch See Detail 05/14/22 05/14/22 05/14/22 13:01 16:13 19:00 MCV MCH MCHC RDW Plt Count MPV Absolute Nucleated RBC Nucleated RBC % (auto) Smear Path Review Anion Gap Estim Creat Clear Calc Estimated GFR POC Glucose 282 H Random Glucose Calcium Iron TIBC % Saturation Unsat Iron Binding Urine Color Yellow Urine Appearance Turbid Urine pH 5.0 Ur Specific Normanna 1.025 Urine Protein 30 (1+) H Urine Glucose (UA) 250 H Urine Ketones Negative Urine Blood Trace H Urine Nitrite Negative Ur Leukocyte Esterase Large (3+) H Urine RBC 0-2 Urine WBC >50 H Ur Squamous Epith Cells 0-2 Urine Bacteria None Seen Hyaline Casts 0-2 Random Vancomycin 18.1 Blood Type Antibody Screen Crossmatch 05/14/22 05/14/22 05/15/22 19:00 20:19 05:44 MCV 81.9 MCH 25.1 L MCHC 30.7 L RDW 15.0 Plt Count 199 MPV 11.4 Absolute Nucleated RBC 0.000 Nucleated RBC % (auto) 0.0 Smear Path Review Anion Gap Estim Creat Clear Calc 42.0 Estimated GFR 30 POC Glucose 294 H Random Glucose Calcium Iron TIBC % Saturation Unsat Iron Binding Urine Color Urine Appearance Urine pH Ur Specific Normanna Urine Protein Urine Glucose (UA) Urine Ketones Urine Blood Urine Nitrite Ur Leukocyte Esterase Urine RBC Urine WBC Ur Squamous Epith Cells Urine Bacteria Hyaline Casts Random Vancomycin Blood Type Antibody Screen Crossmatch 05/15/22 05/15/22 05/15/22 05:44 07:13 11:00 MCV MCH MCHC RDW Plt Count MPV Absolute Nucleated RBC Nucleated RBC % (auto) Smear Path Review Anion Gap 14 Estim Creat Clear Calc 42.2 Estimated GFR 30 POC Glucose 163 H 272 H Random Glucose 184 H D Calcium 7.7 L D Iron 30 L TIBC 150 L % Saturation 20 Unsat Iron Binding 120 Urine Color Urine Appearance Urine pH Ur Specific Normanna Urine Protein Urine Glucose (UA) Urine Ketones Urine Blood Urine Nitrite Ur Leukocyte Esterase Urine RBC Urine WBC Ur Squamous Epith Cells Urine Bacteria Hyaline Casts Random Vancomycin Blood Type Antibody Screen Crossmatch Microbiology Microbiology Results: Microbiology 05/12/22 18:24 Blood Culture - Preliminary Blood - Venous No growth after 48 hours. 05/12/22 18:24 Blood Culture - Preliminary Blood - Venous No growth after 48 hours. Assessment and Plan (1) Osteomyelitis: Status: Acute Plan 56-year-old male with past medical history of diabetes presents to the hospital with worsening diabetic foot wound. recently discharged with daptomycin Anemia H&H 6.1/19.9 today History of chronic anemia Apparently had refused blood transfusion yesterday, okay with being transfused today as he did drop even further down 1 unit PRBCs ordered Check H&H post transfusion Check stool guaiac Iron 30, TIBC 150 Diabetic foot wound/osteomyelitis evidence of osteomyelitis on x-ray seen by ID continue vancomycin and Zosyn for now - will likely need transmetatarsal amputation for definitive treatment, patient aware seen by vascular surgery - plan for vascular intervention Tuesday for stenosis of distal SFA and tibial vessels Blood cultures negative to date DM with hyperglycemia Sliding scale, ADA diet, Lantus CKD3. Stable follow BMP consider nephrology eval if continues to trend upward continue IVF peripheral vascular disease continue statin hypertension. Blood pressure and softer side Hold antihypertensives for now and her blood pressure improves continue IVF Substance abuse continue methadone Depression with SI pt endorses SI sitter for safety Care team evaluation once medically cleared DVT prophylaxis: Heparin subQ attending - dr. Scott Requires ongoing inpatient hospitalization for management of diabetic foot wound/osteomyelitis, hypotension as well as anemia Quality Stroke Does the patient have a stroke diagnosis?: No VTE Prior VTE?: No VTE Risk Level:: Medical - moderate - high VTE Device Contraindication: Treatment Not Indicated VTE Drug Contraindication: N/A - Med Ordered
[2022-05-15 14:44] LABS: Hematocrit 23.5 % (42.0-52.0); Hemoglobin 7.4 g/dl (14.0-18.0); Mean Corpuscular HGB Conc 31.5 g/dl (31.0-36.0); Mean Corpuscular Hemoglobin 26.1 pg (27.0-33.0); Mean Platelet Volume 10.8 fL (9.4-12.4); Platelet Count 202 X10*3/uL (160-400); Red Blood Count 2.83 X10*6/uL (4.60-5.80); Red Cell Distribution Width 15.6 % (11.0-16.0); White Blood Count 11.8 X10*3/uL (4.8-10.8)
[2022-05-15 19:46] LABS: Vancomycin Random 15.5 mcg/mL (15-20)
[2022-05-15] MEDS: vancomycin HCL 750 MG in 0.9 % Sodium Chloride 250 ML 265 MG IV (20:49)
[2022-05-15] MEDS: 0.9 % Sodium Chloride Flush 3 ML SYRINGE IVFLUSH (20:50)
[2022-05-15] MEDS: oxyCODONE HCl Immed Release 5 MG TABLET PO (20:56)
--- NOTE | 2022-05-15 22:11 | PC.NURSE ---
Pt asked for Glucerna around this time, tried to look in the unit kitchen but none available,pt was told its not available then he started to get upset, yelling, accusing staff of drinking his drink and throwing things that he can reach, pt was reapproached but still unconsolable. RN pipe fitter supervisor was informed.
[2022-05-16] VITALS (9 sets, daily range): BP systolic 114–171; BP diastolic 60–83; PULSE 77–91; RESP 15–18; TEMP 35.9–37.3; O2SAT 93–99
[2022-05-16] MEDS: Piperacillin Sodium/Tazobactam 3.375 GM in 0.9 % Sodium Chloride 50 ML IV ×4 (00:35→18:49)
[2022-05-16] MEDS: oxyCODONE HCl Immed Release 5 MG TABLET PO (04:49)
[2022-05-16] MEDS: Omeprazole 20 MG CAPSULE.DR PO (04:50)
[2022-05-16 06:25] LABS: Hematocrit 21.8 % (42.0-52.0); Mean Corpuscular HGB Conc 31.2 g/dl (31.0-36.0); Mean Corpuscular Hemoglobin 25.5 pg (27.0-33.0); Mean Corpuscular Volume 81.6 fL (80.0-98.0); Platelet Count 200 X10*3/uL (160-400); Red Blood Count 2.67 X10*6/uL (4.60-5.80); Red Cell Distribution Width 15.3 % (11.0-16.0); White Blood Count 9.6 X10*3/uL (4.8-10.8)
[2022-05-16] MEDS: Heparin Sodium,Porcine 5,000 UNIT/ML VIAL 5000 UNIT SUBCUT ×2 (06:29→18:49)
[2022-05-16 06:32] LABS: Hemoglobin 6.8 g/dl (14.0-18.0)
--- NOTE | 2022-05-16 06:40 | PC.NURSE ---
Lab called for a critical hemoglobin=6.8, Dr. Crane was updated.
[2022-05-16 06:45] LABS: Anion Gap 14 (12-20); Blood Urea Nitrogen 31 mg/dL (9-16); Calcium 7.7 mg/dL (8.4-10.2); Carbon Dioxide 24 mmol/L (22-29); Chloride 102 mmol/L (96-108); Creatinine Clr Calc Pharmacy 50.5; Estimated Glomerular Filt Rate 37; Glucose Random 266 mg/dL (60-115); Potassium 4.5 mmol/L (3.3-5.1); Sodium 135 mmol/L (135-145)
[2022-05-16] MEDS: Insulin Lispro 100 UNIT/ML 3 ML VIAL SUBCUT ×4 (08:56→21:00)
[2022-05-16] MEDS: Insulin Glargine,Hum.rec.anlog 100 UNIT/ML 10 ML VIAL 20 UNIT SUBCUT (08:56)
[2022-05-16] MEDS: Ferrous Sulfate 324 MG TABLET.DR PO (08:59)
[2022-05-16] MEDS: Tamsulosin HCL 0.4 MG CAPSULE PO (08:59)
[2022-05-16] MEDS: Atorvastatin Calcium 10 MG TABLET PO (08:59)
[2022-05-16] MEDS: methADONE HCl 20 MG/2 ML ORAL.CONC 55 MG PO (09:00)
[2022-05-16] MEDS: 0.9 % Sodium Chloride Flush 3 ML SYRINGE IVFLUSH ×2 (09:02→20:02)
--- NOTE | 2022-05-16 09:13 | HO.PM.IMPN ---
Subjective Subjective Date of Service: 05/16/22 Interval History: Follow up for osteomyelitis Upset with possibility of amputation/TMA Feeling down, missing his family pain under adequate pain control no fever, chills Review of Systems Review of Systems: Yes all other systems are reviewed and are negative Constitutional Constitutional: Denies chills and Denies fever(s) ENT Ears, Nose, Mouth, and Throat: Denies dizziness Cardiovascular Cardiovascular: Denies chest pain, Denies palpitations and Denies dyspnea Respiratory Respiratory: Denies cough and Denies dyspnea Gastrointestinal Gastrointestinal: Denies abdominal pain, Denies nausea and Denies vomiting Neurologic Neurologic: Denies dizziness Endocrine Endocrine: Denies palpitations Physical Exam Vital Signs: Vital Signs: Last Vital Signs Temp 99.2 F 05/16/22 08:00 Pulse 80 05/16/22 08:00 Resp 17 05/16/22 08:00 BP 140/65 H 05/16/22 08:00 Pulse Ox 97 05/16/22 08:00 O2 Del Method 05/16/22 08:00 O2 Flow Rate 2.0 05/16/22 08:00 BMI result Body Mass Index 36.0 Appearing in no acute distress lung sounds are clear to auscultation heart regular rate rhythm, clear S1, S2 positive bowel sounds, abdomen is soft, nontender neuro patient is alert x3, no focal deficits Left foot 4th and 5th toe amputation with eschar and yellow/green malodorous discharge Objective Data Active Medications Acetaminophen (Acetaminophen 325 Mg Tablet) 650 mg PO Q6H PRN PRN Reason: Pain, Mild (Pain Scale 1-3) Last Admin: 05/14/22 02:46 Dose: 650 mg Documented By: PAWAN Atorvastatin Calcium (Atorvastatin Calcium 10 Mg Tablet) 10 mg PO DAILY [facility] Last Admin: 05/16/22 08:59 Dose: 10 mg Documented By: MARLENI Carvedilol (Carvedilol 25 Mg Tablet) 25 mg PO BID [facility]; Protocol Last Admin: 05/14/22 07:39 Dose: 25 mg Documented By: ANDRADE Dextrose (Dextrose 50 % 25 Gm/50 Ml Syringe) 25 gm IVPUSH Q15M PRN; Protocol PRN Reason: per Hypoglycemia Standing Ord. Last Admin: 05/13/22 04:12 Dose: 25 gm Documented By: EDY Docusate Sodium (Docusate Sodium 100 Mg Capsule) 100 mg PO DAILY PRN PRN Reason: Constipation Ferrous Sulfate (Ferrous Sulfate 324 Mg Tablet.Dr) 324 mg PO DAILY [facility] Last Admin: 05/16/22 08:59 Dose: 324 mg Documented By: MARLENI Glucose (Glucose Gel 15 Gm Gel..Gram.) 15 gm PO Q15M PRN; Protocol PRN Reason: per Hypoglycemia Standing Ord. Heparin Sodium (Porcine) (Heparin Sodium,Porcine 5,000 Unit/Ml Vial) 5,000 unit SUBCUT Q12H [facility] Last Admin: 05/16/22 06:29 Dose: 5,000 unit Documented By: HAZEL Hydroxyzine HCl (Hydroxyzine Hcl 25 Mg Tablet) 25 mg PO TID PRN PRN Reason: itching Piperacillin Sod/Tazobactam (Sod 3.375 gm/ Sodium Chloride) 50 mls @ 100 mls/hr IV Q6H [facility] Last Infusion: 05/16/22 07:44 Dose: 100 mls/hr Documented By: MARLENI Lactated Ringer's (Lr) 1,000 mls @ 100 mls/hr IVCONT .Q10H [facility] Last Admin: 05/15/22 23:12 Dose: 100 mls/hr Documented By: HAZEL Sodium Chloride (Ns) 1,000 mls @ 100 mls/hr IVCONT .Q10H [facility] Vancomycin HCl 750 mg/ Sodium (Chloride) 265 mls @ 265 mls/hr IV Q24H [facility] Last Infusion: 05/15/22 22:30 Dose: 0 mls/hr Documented By: HAZEL Insulin Glargine (Insulin Glargine,Hum.Rec.Anlog 100 Unit/Ml 10 Ml Vial) 20 unit SUBCUT DAILY [facility] Last Admin: 05/16/22 08:56 Dose: 20 unit Documented By: MARLENI Insulin Human Lispro (Insulin Lispro 100 Unit/Ml 3 Ml Vial) 0 unit SUBCUT QIDACHS [facility]; Protocol Last Admin: 05/16/22 08:56 Dose: 4 unit Documented By: MARLENI Lisinopril (Lisinopril 20 Mg Tablet) 20 mg PO DAILY [facility]; Protocol Last Admin: 05/14/22 07:39 Dose: 20 mg Documented By: ANDRADE Methadone HCl (Methadone Hcl 20 Mg/2 Ml Oral.Conc) 55 mg PO DAILY [facility] Last Admin: 05/16/22 09:00 Dose: 55 mg Documented By: MARLENI Morphine Sulfate (Morphine Sulfate 4 Mg/Ml Cartridge) 4 mg IVPUSH Q4H PRN; Protocol PRN Reason: Pain, Severe (Pain Scale 7-10) Last Admin: 05/14/22 20:40 Dose: 4 mg Documented By: HAZEL Nifedipine (Nifedipine Er 30 Mg Tab.Er.24) 90 mg PO DAILY [facility]; Protocol Last Admin: 05/14/22 07:39 Dose: 90 mg Documented By: RIOSCEFRA Omeprazole (Omeprazole 20 Mg Capsule.Dr) 20 mg PO DAILY@0630 [facility] Last Admin: 05/16/22 04:50 Dose: 20 mg Documented By: HAZEL Ondansetron HCl (Ondansetron Hcl 4 Mg/2 Ml Vial) 4 mg IVPUSH Q8H PRN PRN Reason: Nausea and Vomiting Last Admin: 05/15/22 01:46 Dose: 4 mg Documented By: HAZEL Oxycodone HCl (Oxycodone Hcl Immed Release 5 Mg Tablet) 5 mg PO Q4H PRN PRN Reason: Pain, Severe (Pain Scale 7-10) Last Admin: 05/16/22 04:49 Dose: 5 mg Documented By: HAZEL Pharmacy Consult (Consult Rx Perform Med Rec) 1 each MISCELLANE ONCE PRN PRN Reason: Consult order Pharmacy Consult (Consult Rx Vancomycin Dosing) 1 each MISCELLANE DAILY PRN PRN Reason: Consult order Sodium Chloride (0.9 % Sodium Chloride Flush 3 Ml Syringe) 3 ml IVFLUSH QSHIFT [facility] Last Admin: 05/16/22 09:02 Dose: 3 ml Documented By: MARLENI Tamsulosin HCl (Tamsulosin Hcl 0.4 Mg Capsule) 0.4 mg PO DAILY [facility] Last Admin: 05/16/22 08:59 Dose: 0.4 mg Documented By: MARLENI Labs CBC & Chem 7: 05/16/22 05:18 05/16/22 05:54 Labs: Laboratory Results - last 24 hr 05/14/22 05/15/22 05/15/22 11:07 11:00 14:19 MCV 83.0 MCH 26.1 L MCHC 31.5 RDW 15.6 Plt Count 202 MPV 10.8 Absolute Nucleated RBC 0.000 Nucleated RBC % (auto) 0.0 Anion Gap Estim Creat Clear Calc Estimated GFR POC Glucose 272 H Random Glucose Calcium Random Vancomycin Blood Type AB Positive Antibody Screen NEGATIVE Crossmatch See Detail 05/15/22 05/15/22 05/15/22 15:55 18:56 19:32 MCV MCH MCHC RDW Plt Count MPV Absolute Nucleated RBC Nucleated RBC % (auto) Anion Gap Estim Creat Clear Calc Estimated GFR POC Glucose 319 H 241 H Random Glucose Calcium Random Vancomycin 15.5 Blood Type Antibody Screen Crossmatch 05/16/22 05/16/22 05/16/22 05:18 05:54 07:24 MCV 81.6 MCH 25.5 L MCHC 31.2 RDW 15.3 Plt Count 200 MPV 11.0 Absolute Nucleated RBC 0.000 Nucleated RBC % (auto) 0.0 Anion Gap 14 Estim Creat Clear Calc 50.5 Estimated GFR 37 POC Glucose 228 H Random Glucose 266 H D Calcium 7.7 L Random Vancomycin Blood Type Antibody Screen Crossmatch Microbiology Microbiology Results: Microbiology 05/14/22 14:42 Urine Culture - Final Urine clean catch - Urine acosta top Assessment and Plan (1) Osteomyelitis: Status: Acute Plan 56-year-old male with past medical history of diabetes presents to the hospital with worsening diabetic foot wound. recently discharged with daptomycin Anemia H&H 6.8/21.8 today History of chronic anemia total 4 units PRBC tx Check stool guaiac Iron 30, TIBC 150 1 unit PRBC to be tx today Diabetic foot wound/osteomyelitis evidence of osteomyelitis on x-ray seen by ID continue vancomycin and Zosyn for now - will likely need transmetatarsal amputation for definitive treatment, patient aware seen by vascular surgery - plan for vascular intervention Tuesday for stenosis of distal SFA and tibial vessels Blood cultures negative to date wound culture pending DM with hyperglycemia Sliding scale, ADA diet, Lantus CKD3. Stable follow BMP consider nephrology eval if continues to trend upward continue IVF peripheral vascular disease continue statin hypertension. Blood pressure and softer side Hold antihypertensives for now and her blood pressure improves continue IVF Substance abuse continue methadone Depression with SI pt endorses SI sitter for safety Care team evaluation once medically cleared psych consult for current feelings of depression DVT prophylaxis: Heparin subQ attending - dr. Scott Requires ongoing inpatient hospitalization for management of diabetic foot wound/osteomyelitis, hypotension as well as anemia Quality Stroke Does the patient have a stroke diagnosis?: No VTE Prior VTE?: No VTE Risk Level:: Medical - moderate - high VTE Device Contraindication: Treatment Not Indicated VTE Drug Contraindication: N/A - Med Ordered
[2022-05-16 09:20] LABS: OBS Int Ctl Valid YES; OBS1 NEGATIVE (NEGATIVE)
[2022-05-16] MEDS: Lactated Ringers 1,000 ML 100 ML IVCONT (09:45)
[2022-05-16] MEDS: Acetaminophen 325 MG TABLET 650 MG PO (14:04)
[2022-05-16] MEDS: Morphine Sulfate 4 MG/ML CARTRIDGE IVPUSH ×2 (14:05→22:18)
--- NOTE | 2022-05-16 15:00 | PM.EVENT ---
Event Note Date of Service: 05/16/22 Event Note: GI Consult-Full note dictated-Hx via patient, RN, and EMR. Imp: Anemia in relation to chronic disease with low Iron but elevated Ferritin level > 500 in 03/2022. Limited colonoscopy in 2019 revealed rectal telangiectasisas from XRT for previous prostate cancer. He has never had a complete colonoscopy nor EGD. He denies any particular GI symptoms, has had no obvious bleeding, and stool is Heme-negative x 1 here in the hospital. I suspect his chronic osteomyelitis and renal insufficency are the main issues contributing to his anemia. I would hold off on GI endoscopy while here in the hospital given his clinical condition. Rec: Agree with transfusions, empiric PPI therapy, F/U Hgb, consider Hematology consult for trial of Procrit, check B12/Folate levels if not done recently. He can be referred for outpatient EGD/Colonoscopy once medically stable. D/W patient in detail and he is comfortable with this plan. Thanks
[2022-05-16] MEDS: 0.9 % Sodium Chloride 1,000 ML 100 ML IVCONT (20:02)
[2022-05-16] MEDS: vancomycin HCL 750 MG in 0.9 % Sodium Chloride 250 ML 265 MG IV (21:05)
[2022-05-17] MEDS: Piperacillin Sodium/Tazobactam 3.375 GM in 0.9 % Sodium Chloride 50 ML IV ×4 (00:42→19:22)
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
[2022-05-17 03:17] VITALS: BP 165/64; PULSE 74; RESP 16; TEMP 36.7; O2SAT 98
[2022-05-17] MEDS: Morphine Sulfate 4 MG/ML CARTRIDGE IVPUSH ×2 (03:28→20:16)
--- NOTE | 2022-05-17 04:10 | PC.NURSE ---
Left foot toes between 4th and 5th wound specimen collected at 03:55, changed dressing applied betadine covered by 4x4 wrapped with kerlix.
[2022-05-17] MEDS: Heparin Sodium,Porcine 5,000 UNIT/ML VIAL 5000 UNIT SUBCUT ×2 (06:19→19:22)
[2022-05-17] MEDS: Omeprazole 20 MG CAPSULE.DR PO (06:19)
[2022-05-17 07:03] LABS: Hematocrit 26.1 % (42.0-52.0); Hemoglobin 8.3 g/dl (14.0-18.0); Mean Corpuscular HGB Conc 31.8 g/dl (31.0-36.0); Mean Corpuscular Hemoglobin 26.5 pg (27.0-33.0); Mean Corpuscular Volume 83.4 fL (80.0-98.0); Mean Platelet Volume 11.4 fL (9.4-12.4); Platelet Count 217 X10*3/uL (160-400); Red Blood Count 3.13 X10*6/uL (4.60-5.80); Red Cell Distribution Width 16.4 % (11.0-16.0); White Blood Count 11.4 X10*3/uL (4.8-10.8)
[2022-05-17 07:36] VITALS: BP 131/61; PULSE 69; RESP 18; TEMP 36.7; O2SAT 96
[2022-05-17 08:33] LABS: Glucose, Whole Blood 162 mg/dL (60-115)
[2022-05-17] MEDS: methADONE HCl 20 MG/2 ML ORAL.CONC 55 MG PO (08:53)
[2022-05-17] MEDS: Tamsulosin HCL 0.4 MG CAPSULE PO (08:55)
[2022-05-17] MEDS: Insulin Glargine,Hum.rec.anlog 100 UNIT/ML 10 ML VIAL 20 UNIT SUBCUT (08:56)
[2022-05-17] MEDS: Atorvastatin Calcium 10 MG TABLET PO (08:56)
[2022-05-17] MEDS: Insulin Lispro 100 UNIT/ML 3 ML VIAL SUBCUT ×4 (08:56→20:16)
[2022-05-17] MEDS: 0.9 % Sodium Chloride Flush 3 ML SYRINGE IVFLUSH ×3 (08:56→23:48)
[2022-05-17] MEDS: Ferrous Sulfate 324 MG TABLET.DR PO (08:56)
--- NOTE | 2022-05-17 09:22 | HO.PM.IMPN ---
Subjective Subjective Date of Service: 05/17/22 Interval History: Follow up for osteomyelitis Upset with possibility of amputation/TMA Feeling down, missing his family pain under adequate pain control no fever, chills Review of Systems Review of Systems: Yes all other systems are reviewed and are negative Constitutional Constitutional: Denies chills and Denies fever(s) ENT Ears, Nose, Mouth, and Throat: Denies dizziness Cardiovascular Cardiovascular: Denies chest pain, Denies palpitations and Denies dyspnea Respiratory Respiratory: Denies cough and Denies dyspnea Gastrointestinal Gastrointestinal: Denies abdominal pain, Denies nausea and Denies vomiting Neurologic Neurologic: Denies dizziness Endocrine Endocrine: Denies palpitations Physical Exam Vital Signs: Vital Signs: Last Vital Signs Temp 98.1 F 05/17/22 07:36 Pulse 69 05/17/22 07:36 Resp 18 05/17/22 07:36 BP 131/61 05/17/22 07:36 Pulse Ox 96 05/17/22 07:36 O2 Del Method 05/17/22 07:36 O2 Flow Rate 2.0 05/16/22 08:00 BMI result Body Mass Index 36.0 Appearing in no acute distress lung sounds are clear to auscultation heart regular rate rhythm, clear S1, S2 positive bowel sounds, abdomen is soft, nontender neuro patient is alert x3, no focal deficits Objective Data Active Medications Acetaminophen (Acetaminophen 325 Mg Tablet) 650 mg PO Q6H PRN PRN Reason: Pain, Mild (Pain Scale 1-3) Last Admin: 05/16/22 14:04 Dose: 650 mg Documented By: MARLENI Atorvastatin Calcium (Atorvastatin Calcium 10 Mg Tablet) 10 mg PO DAILY [facility] [place] Last Admin: 05/17/22 08:56 Dose: 10 mg Documented By: SMILEY Carvedilol (Carvedilol 25 Mg Tablet) 25 mg PO BID [facility] [place]; Protocol Last Admin: 05/14/22 07:39 Dose: 25 mg Documented By: ANDRADE Dextrose (Dextrose 50 % 25 Gm/50 Ml Syringe) 25 gm IVPUSH Q15M PRN; Protocol PRN Reason: per Hypoglycemia Standing Ord. Last Admin: 05/13/22 04:12 Dose: 25 gm Documented By: EDY Docusate Sodium (Docusate Sodium 100 Mg Capsule) 100 mg PO DAILY PRN PRN Reason: Constipation Ferrous Sulfate (Ferrous Sulfate 324 Mg Tablet.Dr) 324 mg PO DAILY [facility] [place] Last Admin: 05/17/22 08:56 Dose: 324 mg Documented By: SMILEY Glucose (Glucose Gel 15 Gm Gel..Gram.) 15 gm PO Q15M PRN; Protocol PRN Reason: per Hypoglycemia Standing Ord. Heparin Sodium (Porcine) (Heparin Sodium,Porcine 5,000 Unit/Ml Vial) 5,000 unit SUBCUT Q12H [facility] [place] Last Admin: 05/17/22 06:19 Dose: 5,000 unit Documented By: KALE Hydroxyzine HCl (Hydroxyzine Hcl 25 Mg Tablet) 25 mg PO TID PRN PRN Reason: itching Piperacillin Sod/Tazobactam (Sod 3.375 gm/ Sodium Chloride) 50 mls @ 100 mls/hr IV Q6H [facility] [place] Last Infusion: 05/17/22 07:00 Dose: 0 mls/hr Documented By: KALE Sodium Chloride (Ns) 1,000 mls @ 100 mls/hr IVCONT .Q10H [facility] [place] Last Infusion: 05/17/22 09:03 Dose: 0 mls/hr Documented By: SMILEY Vancomycin HCl 750 mg/ Sodium (Chloride) 265 mls @ 265 mls/hr IV Q24H [facility] [place] Last Infusion: 05/16/22 22:14 Dose: 0 mls/hr Documented By: KALE Insulin Glargine (Insulin Glargine,Hum.Rec.Anlog 100 Unit/Ml 10 Ml Vial) 20 unit SUBCUT DAILY [facility] [place] Last Admin: 05/17/22 08:56 Dose: 20 unit Documented By: SMILEY Insulin Human Lispro (Insulin Lispro 100 Unit/Ml 3 Ml Vial) 0 unit SUBCUT QIDACHS [facility] [place]; Protocol Last Admin: 05/17/22 08:56 Dose: 2 unit Documented By: SMILEY Lisinopril (Lisinopril 20 Mg Tablet) 20 mg PO DAILY [facility] [place]; Protocol Last Admin: 05/14/22 07:39 Dose: 20 mg Documented By: ANDRADE Methadone HCl (Methadone Hcl 20 Mg/2 Ml Oral.Conc) 55 mg PO DAILY [facility] [place] Last Admin: 05/17/22 08:53 Dose: 55 mg Documented By: SMILEY Morphine Sulfate (Morphine Sulfate 4 Mg/Ml Cartridge) 4 mg IVPUSH Q4H PRN; Protocol PRN Reason: Pain, Severe (Pain Scale 7-10) Last Admin: 05/17/22 03:28 Dose: 4 mg Documented By: KALE Nifedipine (Nifedipine Er 30 Mg Tab.Er.24) 90 mg PO DAILY [facility] [place]; Protocol Last Admin: 05/14/22 07:39 Dose: 90 mg Documented By: ANDRADE Omeprazole (Omeprazole 20 Mg Capsule.Dr) 20 mg PO DAILY@0630 [facility] [place] Last Admin: 05/17/22 06:19 Dose: 20 mg Documented By: KALE Ondansetron HCl (Ondansetron Hcl 4 Mg/2 Ml Vial) 4 mg IVPUSH Q8H PRN PRN Reason: Nausea and Vomiting Last Admin: 05/15/22 01:46 Dose: 4 mg Documented By: HAZEL Oxycodone HCl (Oxycodone Hcl Immed Release 5 Mg Tablet) 5 mg PO Q4H PRN PRN Reason: Pain, Severe (Pain Scale 7-10) Last Admin: 05/16/22 04:49 Dose: 5 mg Documented By: HAZEL Pharmacy Consult (Consult Rx Perform Med Rec) 1 each MISCELLANE ONCE PRN PRN Reason: Consult order Pharmacy Consult (Consult Rx Vancomycin Dosing) 1 each MISCELLANE DAILY PRN PRN Reason: Consult order Sodium Chloride (0.9 % Sodium Chloride Flush 3 Ml Syringe) 3 ml IVFLUSH QSHIFT [facility] [place] Last Admin: 05/17/22 08:56 Dose: 3 ml Documented By: SMILEY Tamsulosin HCl (Tamsulosin Hcl 0.4 Mg Capsule) 0.4 mg PO DAILY [facility] [place] Last Admin: 05/17/22 08:55 Dose: 0.4 mg Documented By: SMILEY Labs CBC & Chem 7: 05/17/22 06:01 05/16/22 05:54 Labs: Laboratory Results - last 24 hr 05/14/22 05/16/22 05/16/22 11:07 11:05 15:59 MCV MCH MCHC RDW Plt Count MPV Absolute Nucleated RBC Nucleated RBC % (auto) POC Glucose 269 H 290 H Blood Type AB Positive Antibody Screen NEGATIVE Crossmatch See Detail 05/16/22 05/17/22 05/17/22 19:23 06:01 07:34 MCV 83.4 MCH 26.5 L MCHC 31.8 RDW 16.4 H Plt Count 217 MPV 11.4 Absolute Nucleated RBC 0.000 Nucleated RBC % (auto) 0.0 POC Glucose 303 H 162 H Blood Type Antibody Screen Crossmatch Microbiology Microbiology Results: Microbiology 05/17/22 03:55 Gram Stain - Final Foot - Left Assessment and Plan (1) Osteomyelitis: Status: Acute Plan 56-year-old male with past medical history of diabetes presents to the hospital with worsening diabetic foot wound. recently discharged with daptomycin Anemia Stable HH today History of chronic anemia total 5 units PRBC tx Check stool guaiac Iron 30, TIBC 150 Diabetic foot wound/osteomyelitis evidence of osteomyelitis on x-ray seen by ID continue vancomycin and Zosyn for now - will likely need transmetatarsal amputation for definitive treatment, patient aware Blood cultures negative to date wound culture pending seen by vascular surgery - plan for vascular intervention Tuesday for stenosis of distal SFA and tibial vessels NPO after midnight DM with hyperglycemia Sliding scale, ADA diet, Lantus CKD3. Stable follow BMP consider nephrology eval if continues to trend upward continue IVF peripheral vascular disease continue statin hypertension. Blood pressure and softer side Hold antihypertensives for now and her blood pressure improves continue IVF Substance abuse continue methadone Depression with SI pt endorses JENNIFER perez for safety Care team evaluation once medically cleared psych consult for current feelings of depression DVT prophylaxis: Heparin subQ attending - dr. Scott Requires ongoing inpatient hospitalization for management of diabetic foot wound/osteomyelitis, hypotension as well as anemia Quality Stroke Does the patient have a stroke diagnosis?: No VTE Prior VTE?: No VTE Risk Level:: Medical - moderate - high VTE Device Contraindication: Treatment Not Indicated VTE Drug Contraindication: N/A - Med Ordered
[2022-05-17 11:01] VITALS: BP 120/64; PULSE 80; RESP 18; TEMP 36.6; O2SAT 98
[2022-05-17 11:20] LABS: Glucose, Whole Blood 260 mg/dL (60-115)
[2022-05-17 13:44] LABS: Creatinine Clr Calc Pharmacy 62.8; Estimated Glomerular Filt Rate 48
--- NOTE | 2022-05-17 13:46 | HO.VASCPN ---
Subjective Subjective Date of Service: 05/17/22 Patient reports: no new complaints and feels better Interval history: patient seen and examined. Events over the past weekend noted. He appeared to have some anemia which was transfused. Appears to be doing relatively stable. No new complaints. Pain reasonably well controlled. Physical Exam Vital Signs: Vital Signs: Last Vital Signs Temp 97.8 F 05/17/22 11:01 Pulse 80 05/17/22 11:01 Resp 18 05/17/22 11:01 BP 120/64 05/17/22 11:01 Pulse Ox 98 05/17/22 11:01 O2 Del Method 05/17/22 11:01 O2 Flow Rate 2.0 05/16/22 08:00 BMI result Body Mass Index 36.0 Const: General: cooperative, healthy appearing and no acute distress Orientation/consciousness: oriented to person, oriented to place and oriented to time HEENT: Head: Yes normal to inspection Neck: Carotids: no bruits Chest: Chest palpation & inspection: normal inspection of the chest Resp: Effort & Inspection: normal respiratory effort and able to speak in complete sentences Auscultation: clear to auscultation bilaterally Cardio: Rate: regular rate Heart sounds: S1 normal heart sound present and S2 normal heart sound present Peripheral pulses: dorsalis pedis present ( Bilateral DP signals only) GI: Inspection: Yes normal to inspection Skin: Other: left foot lateral aspect purulence drainage General skin exam: no rashes or lesions noted Wounds: no wounds Neuro: General: oriented to person, oriented to place, oriented to time and CN's II-XI intact bilaterally Extrem: General: Yes normal to inspection, Yes full ROM and Yes no clubbing, cyanosis or edema Psych: Appearance: grossly normal and well kempt Speech and movement: Normal speech and movement present Affect: normal affect Progress Note: A&P Assessment and plan (1) PAD (peripheral artery disease): Status: Acute Assessment and Plan: Patient notes leg pain when walking distances. I have discussed the pathophysiology of peripheral vascular disease with the patient. I have also discussed risk factor modification. I have reviewed the patient's arterial testing which reveals left distal SFA and tibial. the patient would benefit from a left leg endovascular peripheral angiogram with possible angioplasty, stent, and/or atherectomy. This has been discussed in detail with the patient along with risks, benefits, and complications. This includes but is not limited to bleeding, infection, heart attack, need for emergent surgical repair, limb ischemia, blood vessel damage, bleeding, puncture, kidney injury, bruising, allergic reaction, and skin reaction. The patient demonstrates a clear understanding. We will schedule for the next appropriate time. Thank you for allowing us to assist in this patient's care. of note renal function and hemoglobin are stable prior to intervention Time Spent With Patient Time: Total time spent is greater than 50% in coordination of care (as documented) at patient's floor/unit and/or counseling patient: Procedures Date of Service Date of Service: 05/17/22 Quality Stroke Does the patient have a stroke diagnosis?: No VTE Prior VTE?: No VTE Risk Level:: Medical - moderate - high VTE Device Contraindication: Treatment Not Indicated VTE Drug Contraindication: N/A - Med Ordered
[2022-05-17 14:58] VITALS: BP 153/77; PULSE 74; RESP 18; TEMP 36.2; O2SAT 99
[2022-05-17 16:27] LABS: Glucose, Whole Blood 361 mg/dL (60-115)
[2022-05-17] MEDS: Alteplase Cath Clear 2 MG VIAL 1 MG INTRACATH (17:17)
[2022-05-17 18:22] LABS: Vancomycin Random 14.2 mcg/mL (15-20)
--- NOTE | 2022-05-17 18:30 | HE.PHANOTE ---
Vancomycin Dosing addendum Vancomycin trough 14.2, renal function improving. predicted auc for 750 mg q24 h = 346. increasing dose to 1000 mg q24h and next trough tomorrow at 1900
[2022-05-17 18:57] VITALS: BP 141/77; PULSE 87; RESP 17; TEMP 36.3; O2SAT 99
[2022-05-17 19:39] LABS: Glucose, Whole Blood 328 mg/dL (60-115)
[2022-05-17] MEDS: vancomycin HCL 1,000 MG in 0.9 % Sodium Chloride 250 ML 270 MG IV (20:17)
--- NOTE | 2022-05-17 22:10 | PC.NURSE ---
pt's left foot dressing changed at this time. dressing was socked with SS drainage. Cleaned with N.S, applied betadine, covered non-adherent pad and ABD pad with gauze bandage wrapped.
[2022-05-17] MEDS: oxyCODONE HCl Immed Release 5 MG TABLET PO (23:47)
[2022-05-18] VITALS (11 sets, daily range): BP systolic 142–178; BP diastolic 72–93; PULSE 75–94; RESP 12–19; TEMP 36.2–36.7; O2SAT 96–99
[2022-05-18] MEDS: OLANZapine 5 MG TABLET PO (00:10)
[2022-05-18] MEDS: Piperacillin Sodium/Tazobactam 3.375 GM in 0.9 % Sodium Chloride 50 ML IV ×4 (00:14→20:32)
[2022-05-18] MEDS: Omeprazole 20 MG CAPSULE.DR PO (06:07)
[2022-05-18] MEDS: Heparin Sodium,Porcine 5,000 UNIT/ML VIAL 5000 UNIT SUBCUT ×2 (06:07→18:26)
[2022-05-18 06:33] LABS: Hematocrit 25.3 % (42.0-52.0); Mean Corpuscular HGB Conc 31.6 g/dl (31.0-36.0); Mean Corpuscular Hemoglobin 26.3 pg (27.0-33.0); Mean Corpuscular Volume 83.2 fL (80.0-98.0); Mean Platelet Volume 10.8 fL (9.4-12.4); Platelet Count 232 X10*3/uL (160-400); Red Blood Count 3.04 X10*6/uL (4.60-5.80); Red Cell Distribution Width 16.3 % (11.0-16.0); White Blood Count 10.9 X10*3/uL (4.8-10.8)
[2022-05-18] MEDS: oxyCODONE HCl Immed Release 5 MG TABLET PO ×2 (06:46→20:41)
[2022-05-18 06:57] LABS: Creatinine Clr Calc Pharmacy 64.5; Estimated Glomerular Filt Rate 50
[2022-05-18 07:26] LABS: Folate 9.8 ng/mL (> or = 4.0); Vitamin B12 344 pg/mL (200-900)
[2022-05-18 08:07] LABS: Glucose, Whole Blood 210 mg/dL (60-115)
[2022-05-18] MEDS: methADONE HCl 20 MG/2 ML ORAL.CONC 55 MG PO (08:17)
[2022-05-18] MEDS: Tamsulosin HCL 0.4 MG CAPSULE PO (08:18)
[2022-05-18] MEDS: 0.9 % Sodium Chloride Flush 3 ML SYRINGE IVFLUSH ×3 (08:18→23:21)
[2022-05-18] MEDS: Ferrous Sulfate 324 MG TABLET.DR PO (08:18)
[2022-05-18] MEDS: Atorvastatin Calcium 10 MG TABLET PO (08:18)
[2022-05-18] MEDS: Insulin Lispro 100 UNIT/ML 3 ML VIAL SUBCUT ×3 (09:08→20:42)
--- NOTE | 2022-05-18 09:39 | P.PNIM_ITS ---
Subjective Subjective Date of Service: 05/18/22 Interval History: Follow up for osteomyelitis Upset with possibility of amputation/TMA Feeling down, missing his family pain under adequate pain control no fever, chills Review of Systems Review of Systems: Yes all other systems are reviewed and are negative Constitutional Constitutional: Denies chills and Denies fever(s) ENT Ears, Nose, Mouth, and Throat: Denies dizziness Cardiovascular Cardiovascular: Denies chest pain, Denies palpitations and Denies dyspnea Respiratory Respiratory: Denies cough and Denies dyspnea Gastrointestinal Gastrointestinal: Denies abdominal pain, Denies nausea and Denies vomiting Neurologic Neurologic: Denies dizziness Endocrine Endocrine: Denies palpitations Physical Exam Vital Signs: Vital Signs: Last Vital Signs Temp 97.2 F 05/18/22 07:59 Pulse 77 05/18/22 07:59 Resp 17 05/18/22 07:59 BP 142/72 H 05/18/22 07:59 Pulse Ox 99 05/18/22 07:59 O2 Del Method 05/18/22 07:59 O2 Flow Rate 2.0 05/16/22 08:00 BMI result Body Mass Index 36.0 Appearing in no acute distress head is normocephalic atraumatic eyes pupils are PERRLA sclera is anicteric mouth throat mucous membranes are intact and moist neck is supple no lymphadenopathy, no JVD noted lung sounds are clear to auscultation heart regular rate rhythm, clear S1, S2 positive bowel sounds, abdomen is soft, nontender neuro patient is alert x3, no focal deficits Objective Data Active Medications Acetaminophen (Acetaminophen 325 Mg Tablet) 650 mg PO Q6H PRN PRN Reason: Pain, Mild (Pain Scale 1-3) Last Admin: 05/16/22 14:04 Dose: 650 mg Documented By: MARLENI Atorvastatin Calcium (Atorvastatin Calcium 10 Mg Tablet) 10 mg PO DAILY [facility] Last Admin: 05/18/22 08:18 Dose: 10 mg Documented By: SMILEY Carvedilol (Carvedilol 25 Mg Tablet) 25 mg PO BID [facility]; Protocol Last Admin: 05/14/22 07:39 Dose: 25 mg Documented By: ANDRADE Dextrose (Dextrose 50 % 25 Gm/50 Ml Syringe) 25 gm IVPUSH Q15M PRN; Protocol PRN Reason: per Hypoglycemia Standing Ord. Last Admin: 05/13/22 04:12 Dose: 25 gm Documented By: EDY Docusate Sodium (Docusate Sodium 100 Mg Capsule) 100 mg PO DAILY PRN PRN Reason: Constipation Ferrous Sulfate (Ferrous Sulfate 324 Mg Tablet.Dr) 324 mg PO DAILY [facility] Last Admin: 05/18/22 08:18 Dose: 324 mg Documented By: SMILEY Glucose (Glucose Gel 15 Gm Gel..Gram.) 15 gm PO Q15M PRN; Protocol PRN Reason: per Hypoglycemia Standing Ord. Heparin Sodium (Porcine) (Heparin Sodium,Porcine 5,000 Unit/Ml Vial) 5,000 unit SUBCUT Q12H [facility] Last Admin: 05/18/22 06:07 Dose: 5,000 unit Documented By: KALE Hydroxyzine HCl (Hydroxyzine Hcl 25 Mg Tablet) 25 mg PO TID PRN PRN Reason: itching Piperacillin Sod/Tazobactam (Sod 3.375 gm/ Sodium Chloride) 50 mls @ 100 mls/hr IV Q6H [facility] Last Infusion: 05/18/22 06:55 Dose: 0 mls/hr Documented By: KALE Sodium Chloride (Ns) 1,000 mls @ 100 mls/hr IVCONT .Q10H [facility] Last Infusion: 05/17/22 09:03 Dose: 0 mls/hr Documented By: SMILEY Vancomycin HCl 1,000 mg/ (Sodium Chloride) 270 mls @ 270 mls/hr IV Q24H [facility] Last Infusion: 05/17/22 21:20 Dose: 270 mls/hr Documented By: KALE Insulin Glargine (Insulin Glargine,Hum.Rec.Anlog 100 Unit/Ml 10 Ml Vial) 20 unit SUBCUT DAILY [facility] Last Admin: 05/18/22 08:46 Dose: Not Given Documented By: SMILEY Non-Admin Reason: NPO Insulin Human Lispro (Insulin Lispro 100 Unit/Ml 3 Ml Vial) 0 unit SUBCUT QIDACHS [facility]; Protocol Last Admin: 05/18/22 09:08 Dose: 4 unit Documented By: SMILEY Lisinopril (Lisinopril 20 Mg Tablet) 20 mg PO DAILY [facility]; Protocol Last Admin: 05/14/22 07:39 Dose: 20 mg Documented By: ANDRADE Methadone HCl (Methadone Hcl 20 Mg/2 Ml Oral.Conc) 55 mg PO DAILY [facility] Last Admin: 05/18/22 08:17 Dose: 55 mg Documented By: SMILEY Nifedipine (Nifedipine Er 30 Mg Tab.Er.24) 90 mg PO DAILY [facility]; Protocol Last Admin: 05/14/22 07:39 Dose: 90 mg Documented By: ANDRADE Olanzapine (Olanzapine 5 Mg Tablet) 5 mg PO ONCE PRN PRN Reason: anxiety/restlessness Last Admin: 05/18/22 00:10 Dose: 5 mg Documented By: KALE Omeprazole (Omeprazole 20 Mg Capsule.Dr) 20 mg PO DAILY@0630 [facility] Last Admin: 05/18/22 06:07 Dose: 20 mg Documented By: KALE Ondansetron HCl (Ondansetron Hcl 4 Mg/2 Ml Vial) 4 mg IVPUSH Q8H PRN PRN Reason: Nausea and Vomiting Last Admin: 05/15/22 01:46 Dose: 4 mg Documented By: CASTFRANCISCO JAVIER Oxycodone HCl (Oxycodone Hcl Immed Release 5 Mg Tablet) 5 mg PO Q4H PRN PRN Reason: Pain, Severe (Pain Scale 7-10) Last Admin: 05/18/22 06:46 Dose: 5 mg Documented By: KALE Pharmacy Consult (Consult Rx Perform Med Rec) 1 each MISCELLANE ONCE PRN PRN Reason: Consult order Pharmacy Consult (Consult Rx Vancomycin Dosing) 1 each MISCELLANE DAILY PRN PRN Reason: Consult order Sodium Chloride (0.9 % Sodium Chloride Flush 3 Ml Syringe) 3 ml IVFLUSH QSHIFT [facility] Last Admin: 05/18/22 08:18 Dose: 3 ml Documented By: SMILEY Tamsulosin HCl (Tamsulosin Hcl 0.4 Mg Capsule) 0.4 mg PO DAILY [facility] Last Admin: 05/18/22 08:18 Dose: 0.4 mg Documented By: SMILEY Labs CBC & Chem 7: 05/18/22 05:31 05/18/22 05:31 Labs: Laboratory Results - last 24 hr 05/17/22 05/17/22 05/17/22 06:01 09:24 10:58 MCV MCH MCHC RDW Plt Count MPV Absolute Nucleated RBC Nucleated RBC % (auto) Estim Creat Clear Calc 62.8 Estimated GFR 48 POC Glucose 260 H Vitamin B12 Folate Random Vancomycin Cancelled 05/17/22 05/17/22 05/17/22 15:03 17:52 18:59 MCV MCH MCHC RDW Plt Count MPV Absolute Nucleated RBC Nucleated RBC % (auto) Estim Creat Clear Calc Estimated GFR POC Glucose 361 H* 328 H Vitamin B12 Folate Random Vancomycin 14.2 L 05/18/22 05/18/22 05/18/22 05:31 05:31 05:31 MCV 83.2 MCH 26.3 L MCHC 31.6 RDW 16.3 H Plt Count 232 MPV 10.8 Absolute Nucleated RBC 0.000 Nucleated RBC % (auto) 0.0 Estim Creat Clear Calc 64.5 Estimated GFR 50 POC Glucose Vitamin B12 344 Folate 9.8 Random Vancomycin 05/18/22 07:57 MCV MCH MCHC RDW Plt Count MPV Absolute Nucleated RBC Nucleated RBC % (auto) Estim Creat Clear Calc Estimated GFR POC Glucose 210 H Vitamin B12 Folate Random Vancomycin Microbiology Microbiology Results: Microbiology 05/12/22 18:24 Blood Culture - Final Blood - Venous No growth after 5 days. 05/12/22 18:24 Blood Culture - Final Blood - Venous No growth after 5 days. 05/17/22 03:55 Gram Stain - Final Foot - Left Assessment and Plan (1) Osteomyelitis: Status: Acute Plan 56-year-old male with past medical history of diabetes presents to the hospital with worsening diabetic foot wound. recently discharged with daptomycin Anemia Stable HH today History of chronic anemia total 5 units PRBC tx Check stool guaiac Iron 30, TIBC 150 Diabetic foot wound/osteomyelitis evidence of osteomyelitis on x-ray seen by ID continue vancomycin and Zosyn for now - will likely need transmetatarsal amputation for definitive treatment, patient aware Blood cultures negative to date wound culture pending seen by vascular surgery - plan for vascular intervention today for stenosis of distal SFA and tibial vessels Ultimately will need TMA DM with hyperglycemia Sliding scale, ADA diet, Lantus CKD3. Stable follow BMP consider nephrology eval if continues to trend upward continue IVF peripheral vascular disease continue statin hypertension. Blood pressure and softer side Hold antihypertensives for now and her blood pressure improves continue IVF Substance abuse continue methadone Depression with SI pt endorses SI initiallty but not now Care team evaluation once medically cleared psych consult for current feelings of depression DVT prophylaxis: Heparin subQ attending - dr. Lehman Requires ongoing inpatient hospitalization for management of diabetic foot wound/osteomyelitis, hypotension as well as anemia Quality Stroke Does the patient have a stroke diagnosis?: No VTE Prior VTE?: No VTE Risk Level:: Medical - moderate - high VTE Device Contraindication: Treatment Not Indicated VTE Drug Contraindication: N/A - Med Ordered
--- NOTE | 2022-05-18 12:19 | MHC.CM.PN ---
EMR REVIEWED, PER SURGICAL PT WILL NEED LLE ANGIOGRAM W/POSSIBLE ANGIOPLASTY, NO PLAN FOR D/C AT THIS TME, CM WILL CONT TO FOLLOW D/C NEEDS.
--- NOTE | 2022-05-18 13:30 | P.OP_ITS ---
Operative Note Operative Note Date of Service: 05/18/22 Narrative: Angiogram report from [facility] Preoperative diagnosis: Atherosclerosis of left lower extremity with nonhealing ulcer Postoperative diagnosis: Same Procedure: 1. Ultrasound-guided right common femoral access 2. Aortogram with left lower extremity runoff 3. Angioplasty of left anterior tibial Surgeon:Guy Brown M.D., FACS, RPVI Senior Pharmacy Technician:None Anesthesia: Local with moderate conscious sedation. Total intraservice moderate sedation time was 34 minutes. I monitored the patient's level of consciousness and physiologic status continuously throughout the procedure. Specimens:none Drains:none Estimated blood loss: Less than 10 ml Implant: None Indications: 56-year-old diabetic gentleman with nonhealing ulcer of left lower extremity. He now presents for endovascular intervention The patient has signed the informed consent after reviewing risks, complications, benefits, and alternatives previously discussed with the patient. The patient was given the opportunity to ask any additional questions or voice any concerns. All questions were answered to the patient's satisfaction. Procedure in detail: Patient was brought to the angiography suite prior to which a time-out was called for patient identification and site verification. Bilateral groins were prepped and draped in the standard surgical fashion. Under ultrasound guidance right common femoral was punctured with micro puncture needle and wire. Subsequently a precision 4 Korean sheath was then placed. easyfolioson wire was advanced to the level of the aorta. 4 Korean Flush catheter was brought up and parked at the level of the renal arteries. Aortogram was then undertaken. Catheter was brought down to the level of the iliac bifurcation. Iliacs were subsequently imaged. Catheter was then brought in up and over to the left side SFA. Runoff study was then undertaken. We then advanced the catheter in to the SFA and runoff was completed. We then advanced an 035 glidewire Advantage. We recognized he had an anterior tibial that was diseased. We subsequently administered 8000 units of systemic heparin. After 5 minutes of circulation time up and over 6 Korean catheter was then placed. We then advanced the Glidewire Advantage into the anterior tibial. We confirmed true lumen with a trail Blazer catheter. Once this was done a 035 glidewire Advantage was then readvanced. We then plasty the anterior tibial at the origin and just beyond the bend with a 3 x 20 balloon. This was brought into position and insufflated each location for a total 1 minute in duration. Once this was accomplished completion angiogram demonstrated good result. Catheter wire sheath was brought back to the ipsilateral side. Right common femoral was imaged. Appropriate puncture was noted. StarClose closure device was then deployed. 3-0 Polysorb was used as a closing stitch. Adequate hemostasis was achieved. Exofin was used as a sterile dressing. Patient tolerated the procedure well returned to recovery with stable vitals. Interpretation of films: 1. Ultrasound demonstrates appropriate femoral puncture. Image of which was saved. 2. Aortogram demonstrates appropriate caliber aorta. Minimal disease. Ap propriate take-off of the renals. 3. Iliac images demonstrate no significant disease 4. Left Leg Common femoral artery: No significant disease Profundus Femoris: No significant disease Superficial femoral artery: No significant disease Popliteal artery (p1,p2,p3): No significant disease Anterior tibial artery: Moderate stenosis towards the origin and proximal 1/4 Peroneal artery: No significant disease but diminutive Posterior tibial artery: No significant disease Dorsalis pedis/plantar arch: Complete Conclusion: 1. Successful angioplasty of left anterior tibial artery 2. Anticoagulation status: 6 months of aspirin and Plavix This note is constructed using voice recognition software. While every effort has been made to ensure accuracy, teradata solution architect errors may have been included. Thank you for allowing me to participate in the care of your patient. Yours sincerely, Guy Brown MD, FACS, R.P.V.I.
[2022-05-18 13:55] LABS: Glucose, Whole Blood 188 mg/dL (60-115)
[2022-05-18 15:37] LABS: Glucose, Whole Blood 168 mg/dL (60-115)
[2022-05-18] MEDS: ondansetron HCL 4 MG/2 ML VIAL IVPUSH (16:33)
[2022-05-18] MEDS: 0.9 % Sodium Chloride 1,000 ML 100 ML IVCONT (18:21)
[2022-05-18 20:21] LABS: Glucose, Whole Blood 244 mg/dL (60-115)
[2022-05-18] MEDS: vancomycin HCL 1,000 MG in 0.9 % Sodium Chloride 250 ML 270 MG IV (21:55)
[2022-05-19] MEDS: Piperacillin Sodium/Tazobactam 3.375 GM in 0.9 % Sodium Chloride 50 ML IV ×4 (02:18→20:56)
[2022-05-19 04:00] VITALS: BP 147/70; PULSE 88; RESP 17; TEMP 36.1; O2SAT 97
[2022-05-19] MEDS: oxyCODONE HCl Immed Release 5 MG TABLET PO (06:32)
[2022-05-19] MEDS: Omeprazole 20 MG CAPSULE.DR PO (06:33)
[2022-05-19] MEDS: Heparin Sodium,Porcine 5,000 UNIT/ML VIAL 5000 UNIT SUBCUT ×2 (06:33→18:19)
[2022-05-19 07:10] LABS: Hematocrit 26.2 % (42.0-52.0); Hemoglobin 8.2 g/dl (14.0-18.0); Mean Corpuscular HGB Conc 31.3 g/dl (31.0-36.0); Mean Corpuscular Hemoglobin 26.7 pg (27.0-33.0); Mean Corpuscular Volume 85.3 fL (80.0-98.0); Mean Platelet Volume 11.2 fL (9.4-12.4); Platelet Count 276 X10*3/uL (160-400); Red Blood Count 3.07 X10*6/uL (4.60-5.80); Red Cell Distribution Width 16.7 % (11.0-16.0); White Blood Count 10.8 X10*3/uL (4.8-10.8)
[2022-05-19 07:26] LABS: Creatinine Clr Calc Pharmacy 60.4; Estimated Glomerular Filt Rate 46
[2022-05-19 07:35] VITALS: BP 147/72; PULSE 75; RESP 18; TEMP 36.2; O2SAT 97
[2022-05-19] MEDS: 0.9 % Sodium Chloride 1,000 ML 100 ML IVCONT ×3 (07:45→20:57)
[2022-05-19] MEDS: Atorvastatin Calcium 10 MG TABLET PO (07:45)
[2022-05-19] MEDS: Insulin Lispro 100 UNIT/ML 3 ML VIAL SUBCUT ×4 (07:45→21:04)
[2022-05-19] MEDS: Ferrous Sulfate 324 MG TABLET.DR PO (07:45)
[2022-05-19] MEDS: Tamsulosin HCL 0.4 MG CAPSULE PO (07:45)
[2022-05-19] MEDS: Insulin Glargine,Hum.rec.anlog 100 UNIT/ML 10 ML VIAL 20 UNIT SUBCUT (07:46)
[2022-05-19] MEDS: 0.9 % Sodium Chloride Flush 3 ML SYRINGE IVFLUSH ×3 (07:46→21:49)
[2022-05-19] MEDS: methADONE HCl 20 MG/2 ML ORAL.CONC 55 MG PO (07:46)
[2022-05-19 08:00] LABS: Glucose, Whole Blood 296 mg/dL (60-115)
--- NOTE | 2022-05-19 08:10 | HE.PHANOTE ---
Vancomycin Dosing Patient renal function has been flutating. Pharmacy to continue to monitor renal function daily. Continue current regimen vancomycin 1000 mg Q24H. Next trough to be drawn 05/21 @ 0900. Corinne Ramírez PharmD
[2022-05-19 11:09] VITALS: BP 139/77; PULSE 84; RESP 18; TEMP 36.3; O2SAT 97
[2022-05-19 11:27] LABS: Glucose, Whole Blood 331 mg/dL (60-115)
--- NOTE | 2022-05-19 11:29 | HO.VASCPN ---
Subjective Subjective Date of Service: 05/19/22 Patient reports: no new complaints and feels better Interval history: pleasant 56-year-old gentleman for follow-up status post angiogram. He underwent left AT plasty. He has this nonhealing left foot ulcer. He now presents for follow-up. Physical Exam Vital Signs: Vital Signs: Last Vital Signs Temp 97.4 F 05/19/22 11:09 Pulse 84 05/19/22 11:09 Resp 18 05/19/22 11:09 BP 139/77 05/19/22 11:09 Pulse Ox 97 05/19/22 11:09 O2 Del Method 05/19/22 11:09 O2 Flow Rate 2.0 05/16/22 08:00 BMI result Body Mass Index 36.0 Const: General: cooperative, healthy appearing and no acute distress Orientation/consciousness: oriented to person, oriented to place and oriented to time HEENT: Head: Yes normal to inspection Neck: Carotids: no bruits Chest: Chest palpation & inspection: normal inspection of the chest Resp: Effort & Inspection: normal respiratory effort and able to speak in complete sentences Auscultation: clear to auscultation bilaterally Cardio: Rate: regular rate Heart sounds: S1 normal heart sound present and S2 normal heart sound present GI: Inspection: Yes normal to inspection Skin: General skin exam: no rashes or lesions noted Wounds: wounds noted ( Left foot nonhealing amputation site with foul odor) Neuro: General: oriented to person, oriented to place, oriented to time and CN's II-XI intact bilaterally Extrem: General: Yes normal to inspection, Yes full ROM and Yes no clubbing, cyanosis or edema Psych: Appearance: grossly normal and well kempt Speech and movement: Normal speech and movement present Affect: normal affect Progress Note: A&P Assessment and plan (1) Diabetic infection of left foot: Status: Acute Assessment and Plan: in short patient has a nonhealing diabetic foot ulcer from a nonhealing amputation site. Patient will require a left foot transmetatarsal amputation. risks benefits complications were discussed in detail with the patient including but not limited to bleeding infection nonhealing and further amputation. He agreed and would like to move forward. We will schedule for tomorrow. Thank you for allowing us to assist in his care. If there are any questions or concerns please do not hesitate to contact us. Time Spent With Patient Time: Total time spent is greater than 50% in coordination of care (as documented) at patient's floor/unit and/or counseling patient: Procedures Date of Service Date of Service: 05/19/22 Quality Stroke Does the patient have a stroke diagnosis?: No VTE Prior VTE?: No VTE Risk Level:: Medical - moderate - high VTE Device Contraindication: Treatment Not Indicated VTE Drug Contraindication: N/A - Med Ordered
--- NOTE | 2022-05-19 11:43 | MHC.CM.PN ---
EMR REVIEWED, PER SURGICAL PLAN FOR LEFT TRANS METATARSAL AMP TOMORROW 05/20/22, NO PLAN FOR D/C AT THIS TIME, CM WILL CONT TO FOLLOW.
--- NOTE | 2022-05-19 11:49 | HO.PM.IMPN ---
Subjective Subjective Date of Service: 05/19/22 Interval History: No complaints of foot pain, no fevers no chills, no other acute issues overnight patient seen by Dr. Brown this morning undergoing transmetatarsal amputation at a.m. denies chest pain, no shortness of breath tolerating diet no nausea no vomiting. Review of Systems [employer] no headache no dizziness CVS no chest pain, no palpitation GI no nausea, no vomiting Review of Systems: Yes all other systems are reviewed and are negative Physical Exam Vital Signs: Vital Signs: Last Vital Signs Temp 97.4 F 05/19/22 11:09 Pulse 84 05/19/22 11:09 Resp 18 05/19/22 11:09 BP 139/77 05/19/22 11:09 Pulse Ox 97 05/19/22 11:09 O2 Del Method 05/19/22 11:09 O2 Flow Rate 2.0 05/16/22 08:00 BMI result Body Mass Index 36.0 Const: Other: Gen: in no acute distress HEENT: sclera anicteric Neck: supple Lungs: clear to auscultation bilaterally Heart: regular rate and rhythm, no murmurs Abd: soft, non-tender, non-distended Ext: no edema, L foot dressing in place Skin: warm/well-perfused Neuro: alert and oriented x3, no focal findings Psych: appropriate affect Objective Data Active Medications Acetaminophen (Acetaminophen 325 Mg Tablet) 650 mg PO Q6H PRN PRN Reason: Pain, Mild (Pain Scale 1-3) Last Admin: 05/16/22 14:04 Dose: 650 mg Documented By: MARLENI Atorvastatin Calcium (Atorvastatin Calcium 10 Mg Tablet) 10 mg PO DAILY [facility] [place] Last Admin: 05/19/22 07:45 Dose: 10 mg Documented By: IZZY Carvedilol (Carvedilol 25 Mg Tablet) 25 mg PO BID [facility] [place]; Protocol Last Admin: 05/14/22 07:39 Dose: 25 mg Documented By: ANDRADE Dextrose (Dextrose 50 % 25 Gm/50 Ml Syringe) 25 gm IVPUSH Q15M PRN; Protocol PRN Reason: per Hypoglycemia Standing Ord. Last Admin: 05/13/22 04:12 Dose: 25 gm Documented By: EDY Docusate Sodium (Docusate Sodium 100 Mg Capsule) 100 mg PO DAILY PRN PRN Reason: Constipation Ferrous Sulfate (Ferrous Sulfate 324 Mg Tablet.Dr) 324 mg PO DAILY [facility] [place] Last Admin: 05/19/22 07:45 Dose: 324 mg Documented By: IZZY Glucose (Glucose Gel 15 Gm Gel..Gram.) 15 gm PO Q15M PRN; Protocol PRN Reason: per Hypoglycemia Standing Ord. Heparin Sodium (Porcine) (Heparin Sodium,Porcine 5,000 Unit/Ml Vial) 5,000 unit SUBCUT Q12H [facility] [place] Last Admin: 05/19/22 06:33 Dose: 5,000 unit Documented By: PAWAN Hydroxyzine HCl (Hydroxyzine Hcl 25 Mg Tablet) 25 mg PO TID PRN PRN Reason: itching Sodium Chloride (Ns) 1,000 mls @ 100 mls/hr IVCONT .Q10H [facility] [place] Last Admin: 05/19/22 07:45 Dose: 100 mls/hr Documented By: IZZY Vancomycin HCl 1,000 mg/ (Sodium Chloride) 270 mls @ 270 mls/hr IV Q24H [facility] [place] Last Infusion: 05/18/22 23:17 Dose: 0 mls/hr Documented By: BRAYDEN Piperacillin Sod/Tazobactam (Sod 3.375 gm/ Sodium Chloride) 50 mls @ 100 mls/hr IV Q6H [facility] [place] Last Infusion: 05/19/22 10:19 Dose: 0 mls/hr Documented By: IZZY Insulin Glargine (Insulin Glargine,Hum.Rec.Anlog 100 Unit/Ml 10 Ml Vial) 20 unit SUBCUT DAILY [facility] [place] Last Admin: 05/19/22 07:46 Dose: 20 unit Documented By: IZZY Insulin Human Lispro (Insulin Lispro 100 Unit/Ml 3 Ml Vial) 0 unit SUBCUT QIDACHS [facility] [place]; Protocol Last Admin: 05/19/22 11:15 Dose: 8 unit Documented By: IZZY Lisinopril (Lisinopril 20 Mg Tablet) 20 mg PO DAILY [facility] [place]; Protocol Last Admin: 05/14/22 07:39 Dose: 20 mg Documented By: ANDRADE Methadone HCl (Methadone Hcl 20 Mg/2 Ml Oral.Conc) 55 mg PO DAILY [facility] [place] Last Admin: 05/19/22 07:46 Dose: 55 mg Documented By: IZZY Morphine Sulfate (Morphine Sulfate 4 Mg/Ml Cartridge) 4 mg IVPUSH Q2H PRN; Protocol PRN Reason: Pain, Severe (Pain Scale 7-10) Nifedipine (Nifedipine Er 30 Mg Tab.Er.24) 90 mg PO DAILY [facility] [place]; Protocol Last Admin: 05/14/22 07:39 Dose: 90 mg Documented By: ANDRADE Olanzapine (Olanzapine 5 Mg Tablet) 5 mg PO ONCE PRN PRN Reason: anxiety/restlessness Last Admin: 05/18/22 00:10 Dose: 5 mg Documented By: KALE Omeprazole (Omeprazole 20 Mg Capsule.Dr) 20 mg PO DAILY@0630 [facility] [place] Last Admin: 05/19/22 06:33 Dose: 20 mg Documented By: PAWAN Ondansetron HCl (Ondansetron Hcl 4 Mg/2 Ml Vial) 4 mg IVPUSH Q8H PRN PRN Reason: Nausea and Vomiting Last Admin: 05/18/22 16:33 Dose: 4 mg Documented By: SMILEY Oxycodone HCl (Oxycodone Hcl Immed Release 5 Mg Tablet) 5 mg PO Q6H PRN PRN Reason: Pain, Moderate (Pain Scale 4-6 Pharmacy Consult (Consult Rx Perform Med Rec) 1 each MISCELLANE ONCE PRN PRN Reason: Consult order Pharmacy Consult (Consult Rx Vancomycin Dosing) 1 each MISCELLANE DAILY PRN PRN Reason: Consult order Sodium Chloride (0.9 % Sodium Chloride Flush 3 Ml Syringe) 3 ml IVFLUSH QSHIFT [facility] [place] Last Admin: 05/19/22 07:46 Dose: 3 ml Documented By: IZZY Tamsulosin HCl (Tamsulosin Hcl 0.4 Mg Capsule) 0.4 mg PO DAILY [facility] [place] Last Admin: 05/19/22 07:45 Dose: 0.4 mg Documented By: IZZY Labs CBC & Chem 7: 05/19/22 06:22 05/19/22 06:22 Labs: Laboratory Results - last 24 hr 05/18/22 05/18/22 05/18/22 12:07 15:12 19:16 MCV MCH MCHC RDW Plt Count MPV Absolute Nucleated RBC Nucleated RBC % (auto) Estim Creat Clear Calc Estimated GFR POC Glucose 188 H 168 H Vancomycin Trough 12.0 05/18/22 05/19/22 05/19/22 20:14 06:22 06:22 MCV 85.3 MCH 26.7 L MCHC 31.3 RDW 16.7 H Plt Count 276 MPV 11.2 Absolute Nucleated RBC 0.000 Nucleated RBC % (auto) 0.0 Estim Creat Clear Calc 60.4 Estimated GFR 46 POC Glucose 244 H Vancomycin Trough 05/19/22 05/19/22 07:20 11:12 MCV MCH MCHC RDW Plt Count MPV Absolute Nucleated RBC Nucleated RBC % (auto) Estim Creat Clear Calc Estimated GFR POC Glucose 296 H 331 H Vancomycin Trough Microbiology Microbiology Results: Microbiology 05/17/22 03:55 Gram Stain - Final Foot - Left Routine Culture - Preliminary Enterobacter aerogenes Gram positive cocci Assessment and Plan (1) Osteomyelitis: Status: Acute Plan 56-year-old male with past medical history of diabetes presents to the hospital with worsening diabetic foot wound. recently discharged with daptomycin Diabetic foot wound/osteomyelitis evidence of osteomyelitis on x-ray continue vancomycin and Zosyn, scheduled for transmetatarsal amputation at a.m. will keep him npo, continue IV fluids Blood cultures negative wound culture grew Gram-negative rods s/p vascular intervention for stenosis of distal SFA and tibial vessels Place on as needed oxycodone for pain control Acute on chronic Anemia no acute GI bleed, likely due to chronic inflammation Stable HH , status post 5 units of packed RBC, normal iron studies DM with hyperglycemia Sliding scale, ADA diet, Lantus CKD3. Stable follow BMP continue IVF peripheral vascular disease continue statin hypertension. Blood pressure improved will resume Coreg continue to hold lisinopril Substance abuse continue methadone Depression with SI pt endorses SI initiallty but not now Care team evaluation once medically cleared psych consult pending for current feelings of depression DVT prophylaxis: Heparin subQ Requires ongoing inpatient hospitalization for management of diabetic foot wound/osteomyelitis, is scheduled for transmetatarsal amputation at a.m. Quality Stroke Does the patient have a stroke diagnosis?: No VTE Prior VTE?: No VTE Risk Level:: Medical - moderate - high VTE Device Contraindication: Treatment Not Indicated VTE Drug Contraindication: N/A - Med Ordered
[2022-05-19] MEDS: carvediloL 12.5 MG TABLET PO ×2 (13:27→20:53)
[2022-05-19 15:24] VITALS: BP 140/73; PULSE 78; RESP 20; TEMP 36.3; O2SAT 100
[2022-05-19 16:42] LABS: Glucose, Whole Blood 348 mg/dL (60-115)
[2022-05-19 17:06] LABS: Glucose, Whole Blood 342 mg/dL (60-115)
--- NOTE | 2022-05-19 18:45 | PM.EVENT ---
Event Note Date of Service: 05/19/22 Event Note: went to see patient as he was asking to leave AMA. patient was unable to explain reason for being in hospital or risks of leaving, he was tugging at lenz catheter and pushed food tray aggressively towards me. does not appear to have capacity to leave against medical advice, aggression is interfering with care and pulling at lines may lead to infection, bleeding, will give 5mg zyprexa IM times one.
--- NOTE | 2022-05-19 19:42 | PC.NURSE ---
1814 - Pt becoming increasingly agitated. Attempting to pull out his Lenz catheter to his left chest. Dressing almost completely off. Pt states he wants to leave and he wants lenz taken out.States If nobody here removes it, I'll do it myself. Attempted to calm pt down but pt continued to raise voice and yell at staff. Security called, Superviser Huong notified and Dr Burch in to see pt. Pt refused po Xanax offered to him for anxiety. Pt pushing table and things on table towards staff while cursing. Per pt not able to sign self out AMA. Pt allowed this nurse to change dressing to Lenz. Pt speaking with son on phone at this time. Appears to be calming down slightly. Report given to oncoming nurse, will allow pt to settle down prior to giving IM zyprexa
[2022-05-19] MEDS: OLANZapine 5 MG TABLET PO (20:53)
[2022-05-19] MEDS: hydrOXYzine HCL 25 MG TABLET PO (20:53)
[2022-05-19 21:04] LABS: Glucose, Whole Blood 380 mg/dL (60-115)
--- NOTE | 2022-05-19 21:10 | MHC.PIE ---
p; poc 380 i; dr scott notified. give 10 u humalog per ss e; will cont to monitor
[2022-05-19] MEDS: vancomycin HCL 1,000 MG in 0.9 % Sodium Chloride 250 ML 270 MG IV (21:49)
[2022-05-19] MEDS: OLANZapine 10 MG VIAL 5 MG IM (23:58)
--- NOTE | 2022-05-19 23:59 | MHC.PIE ---
p; pt anxious and agitated threatening to leave ama. i; md notified; md and son in room security notified. md spoke with pt and son, ordered zyprexa im or po for agitation. said pt not aloud to leave d/t pt has not been cleared by psych i; security notified; pt aggressive refusing to take meds. pt placed in restraint chair and given im zyprexa e; pt less agitated and anxious, pt now in bed, will cont to monitor
[2022-05-20] VITALS (11 sets, daily range): BP systolic 141–169; BP diastolic 61–96; PULSE 73–86; RESP 15–20; TEMP 36.3–37.7; O2SAT 96–100
--- NOTE | 2022-05-20 00:51 | PM.EVENT ---
Event Note Date of Service: 05/20/22 Event Note: Was called by the nurse as patient was agitated and asking to leave AMA. Patient did not have capacity to leave AMA. Needed physical restraining for 10 minutes. Administered IM Zyprexa which calmed him down.
[2022-05-20] MEDS: Piperacillin Sodium/Tazobactam 3.375 GM in 0.9 % Sodium Chloride 50 ML IV ×4 (03:30→20:16)
[2022-05-20] MEDS: 0.9 % Sodium Chloride 1,000 ML 100 ML IVCONT ×3 (03:30→20:23)
[2022-05-20 06:57] LABS: Creatinine Clr Calc Pharmacy 68.3; Estimated Glomerular Filt Rate 53
--- NOTE | 2022-05-20 07:16 | HE.PHANOTE ---
DEDRICK FOURNIER CONTINUE CURRENT DOSE, NEXT TROUGH DUE @ 1900 ON 05/21. May need to increase dose to 1250mg. Louis
[2022-05-20 07:49] LABS: Glucose, Whole Blood 200 mg/dL (60-115)
[2022-05-20] MEDS: Atorvastatin Calcium 10 MG TABLET PO (08:50)
[2022-05-20] MEDS: carvediloL 12.5 MG TABLET PO (08:50)
[2022-05-20] MEDS: Ferrous Sulfate 324 MG TABLET.DR PO (08:50)
[2022-05-20] MEDS: methADONE HCl 20 MG/2 ML ORAL.CONC 55 MG PO (08:50)
[2022-05-20] MEDS: Tamsulosin HCL 0.4 MG CAPSULE PO (08:53)
[2022-05-20] MEDS: Morphine Sulfate 4 MG/ML CARTRIDGE IVPUSH ×3 (08:55→23:59)
[2022-05-20 11:36] LABS: Glucose, Whole Blood 172 mg/dL (60-115)
--- NOTE | 2022-05-20 13:23 | P.PNIM_ITS ---
Subjective Subjective Date of Service: 05/20/22 Interval History: Events from last night noted, patient noted to be agitated pulling IV lines therefore treated with physical restraint and Zyprexa, this morning initially was upset about last night events that he was held by security, later became more cooperative agreed to undergo surgery by Dr. Brown , offers no acute complaints of pain, no fevers, no chills denies nausea vomiting is NPO for the procedure blood sugars in 200. Review of Systems Review of Systems: Yes all other systems are reviewed and are negative Physical Exam Vital Signs: Vital Signs: Last Vital Signs Temp 99.9 F 05/20/22 11:09 Pulse 76 05/20/22 11:09 Resp 16 05/20/22 11:09 BP 161/63 H 05/20/22 11:09 Pulse Ox 96 05/20/22 11:09 O2 Del Method 05/20/22 11:09 O2 Flow Rate 2.0 05/16/22 08:00 BMI result Body Mass Index 36.0 Const: Other: Gen: in no acute d istress anicteric sclera Neck: suppl e Lungs: clear to auscultation bilat erally Heart: regu lar rate and rhyth m, no murmurs Abd: soft, non-tender, non-distended Ext : no edema, L foot dressing in place Skin: warm/well-p erfused Neuro: gallito rt and oriented x3 , no focal finding s Psych: appropria te affect Objective Data Active Medications Acetaminophen (Acetaminophen 325 Mg Tablet) 650 mg PO Q6H PRN PRN Reason: Pain, Mild (Pain Scale 1-3) Last Admin: 05/16/22 14:04 Dose: 650 mg Documented By: MARLENI Atorvastatin Calcium (Atorvastatin Calcium 10 Mg Tablet) 10 mg PO DAILY [facility] Last Admin: 05/20/22 08:50 Dose: 10 mg Documented By: COTEMA Carvedilol (Carvedilol 12.5 Mg Tablet) 12.5 mg PO BID [facility]; Protocol Last Admin: 05/20/22 08:50 Dose: 12.5 mg Documented By: TAYLOREMA Dextrose (Dextrose 50 % 25 Gm/50 Ml Syringe) 25 gm IVPUSH Q15M PRN; Protocol PRN Reason: per Hypoglycemia Standing Ord. Last Admin: 05/13/22 04:12 Dose: 25 gm Documented By: EDY Docusate Sodium (Docusate Sodium 100 Mg Capsule) 100 mg PO DAILY PRN PRN Reason: Constipation Ferrous Sulfate (Ferrous Sulfate 324 Mg Tablet.Dr) 324 mg PO DAILY [facility] Last Admin: 05/20/22 08:50 Dose: 324 mg Documented By: TAYLOREMA Glucose (Glucose Gel 15 Gm Gel..Gram.) 15 gm PO Q15M PRN; Protocol PRN Reason: per Hypoglycemia Standing Ord. Heparin Sodium (Porcine) (Heparin Sodium,Porcine 5,000 Unit/Ml Vial) 5,000 unit SUBCUT Q12H [facility] Last Admin: 05/20/22 07:33 Dose: Not Given Documented By: LEFTY Non-Admin Reason: preop Hydroxyzine HCl (Hydroxyzine Hcl 25 Mg Tablet) 25 mg PO TID PRN PRN Reason: itching Last Admin: 05/19/22 20:53 Dose: 25 mg Documented By: CANELO Sodium Chloride (Ns) 1,000 mls @ 100 mls/hr IVCONT .Q10H [facility] Last Infusion: 05/20/22 13:07 Dose: 0 mls/hr Documented By: LEFTY Vancomycin HCl 1,000 mg/ (Sodium Chloride) 270 mls @ 270 mls/hr IV Q24H [facility] Last Infusion: 05/19/22 23:05 Dose: 0 mls/hr Documented By: CANELO Piperacillin Sod/Tazobactam (Sod 3.375 gm/ Sodium Chloride) 50 mls @ 100 mls/hr IV Q6H [facility] Last Infusion: 05/20/22 09:23 Dose: 0 mls/hr Documented By: LEFTY Insulin Glargine (Insulin Glargine,Hum.Rec.Anlog 100 Unit/Ml 10 Ml Vial) 20 unit SUBCUT DAILY [facility] Last Admin: 05/20/22 08:50 Dose: Not Given Documented By: LEFTY Non-Admin Reason: NPO Insulin Human Lispro (Insulin Lispro 100 Unit/Ml 3 Ml Vial) 0 unit SUBCUT QIDACHS [facility]; Protocol Last Admin: 05/20/22 11:40 Dose: Not Given Documented By: LEFTY Non-Admin Reason: NPO Methadone HCl (Methadone Hcl 20 Mg/2 Ml Oral.Conc) 55 mg PO DAILY [facility] Last Admin: 05/20/22 08:50 Dose: 55 mg Documented By: LEFTY Morphine Sulfate (Morphine Sulfate 4 Mg/Ml Cartridge) 4 mg IVPUSH Q2H PRN; Protocol PRN Reason: Pain, Severe (Pain Scale 7-10) Last Admin: 05/20/22 08:55 Dose: 4 mg Documented By: LEFTY Nifedipine (Nifedipine Er 30 Mg Tab.Er.24) 90 mg PO DAILY [facility]; Protocol Last Admin: 05/14/22 07:39 Dose: 90 mg Documented By: ANDRADE Olanzapine (Olanzapine 5 Mg Tablet) 5 mg PO ONCE PRN PRN Reason: anxiety/restlessness Last Admin: 05/18/22 00:10 Dose: 5 mg Documented By: KALE Olanzapine (Olanzapine 5 Mg Tablet) 5 mg PO ONCE PRN PRN Reason: anxiety/restlessness Last Admin: 05/19/22 20:53 Dose: 5 mg Documented By: CANELO Olanzapine (Olanzapine 5 Mg Tablet) 5 mg PO ONCE PRN PRN Reason: anxiety/restlessness Omeprazole (Omeprazole 20 Mg Capsule.Dr) 20 mg PO DAILY@0630 [facility] Last Admin: 05/20/22 05:40 Dose: Not Given Documented By: CANELO Non-Admin Reason: Patient Asleep Ondansetron HCl (Ondansetron Hcl 4 Mg/2 Ml Vial) 4 mg IVPUSH Q8H PRN PRN Reason: Nausea and Vomiting Last Admin: 05/18/22 16:33 Dose: 4 mg Documented By: SMILEY Oxycodone HCl (Oxycodone Hcl Immed Release 5 Mg Tablet) 5 mg PO Q6H PRN PRN Reason: Pain, Moderate (Pain Scale 4-6 Pharmacy Consult (Consult Rx Perform Med Rec) 1 each MISCELLANE ONCE PRN PRN Reason: Consult order Pharmacy Consult (Consult Rx Vancomycin Dosing) 1 each MISCELLANE DAILY PRN PRN Reason: Consult order Sodium Chloride (0.9 % Sodium Chloride Flush 3 Ml Syringe) 3 ml IVFLUSH QSHIFT [facility] Last Admin: 05/20/22 07:24 Dose: Not Given Documented By: LEFTY Non-Admin Reason: IV Running Tamsulosin HCl (Tamsulosin Hcl 0.4 Mg Capsule) 0.4 mg PO DAILY [facility] Last Admin: 05/20/22 08:53 Dose: 0.4 mg Documented By: LEFTY Labs CBC & Chem 7: 05/19/22 06:22 05/20/22 05:50 Labs: Laboratory Results - last 24 hr 05/19/22 05/19/22 05/19/22 15:27 16:59 20:59 Estim Creat Clear Calc Estimated GFR POC Glucose 348 H 342 H 380 H* Blood Type Antibody Screen 05/20/22 05/20/22 05/20/22 05:49 05:50 07:26 Estim Creat Clear Calc 68.3 Estimated GFR 53 POC Glucose 200 H Blood Type AB Positive Antibody Screen NEGATIVE 05/20/22 11:07 Estim Creat Clear Calc Estimated GFR POC Glucose 172 H Blood Type Antibody Screen Microbiology Microbiology Results: Microbiology 05/17/22 03:55 Gram Stain - Final Foot - Left Routine Culture - Preliminary Enterobacter aerogenes Enterococcus faecium Assessment and Plan (1) Osteomyelitis: Status: Acute Plan 56-year-old male with past medical history of diabetes presents to the hospital with worsening diabetic foot wound. recently discharged with daptomycin Diabetic foot wound/osteomyelitis evidence of osteomyelitis on x-ray continue vancomycin and Zosyn, scheduled for transmetatarsal amputation this am,npo, continue IV fluids Blood cultures negative wound culture grew Gram-negative rods s/p vascular intervention for stenosis of distal SFA and tibial vessels on prn oxycodone for pain control Transient episode of agitation with underlying history of depression Patient awake alert this morning aware of his birthday, month, answered q uestions appropriately Question etiology, will consult Psychiatry for treatment of underlying depres anna , no suicidal ideation Acute on chronic Anemia no acute GI bleed, likely due to chronic inflammation Stable HH , status post 5 units of packed RBC, normal iron studies DM with hyperglycemia Sliding scale, ADA diet, Lantus blood sugars in 200 CKD3. Stable follow BMP continue IVF peripheral vascular disease continue statin hypertension. Blood pressure remains elevated, will increase dose of Coreg to 25 b.i.d., home dose if BP remains elevated will resume nifedipine 90 mg, lisinopril is on hold Substance abuse continue methadone DVT prophylaxis: Heparin subQ Requires ongoing inpatient hospitalization for management of diabetic foot wound/osteomyelitis, is scheduled for transmetatarsal amputation today Quality Stroke Does the patient have a stroke diagnosis?: No VTE Prior VTE?: No VTE Risk Level:: Medical - moderate - high VTE Device Contraindication: Treatment Not Indicated VTE Drug Contraindication: N/A - Med Ordered
--- NOTE | 2022-05-20 13:24 | MHC.SHP ---
Pre-Procedural Eval Section A Date of Service: 05/20/22 The patient is an INPATIENT: Yes Changes since office visit: Yes Patient answered all questions The History & Physical has been completed within 30 days and I have reviewed it.: Yes Section B Chief Complaint: OSTEOMYELITIS, LEFT LEG Allergies: Allergies Allergy/AdvReac Type Severity Reaction Status Date / Time No Known Allergies Allergy Verified 02/01/22 12:12 [No Known Allergies*] Plan I have reviewed the history and physical and performed a pertinent physical examination on my patient. No changes have occurred unless specified.
--- NOTE | 2022-05-20 13:40 | HO.ANESPROP2 ---
HPI - Anesthesia Eval Consult details Narrative: 56 M for left foot transmetatarsal amputation Case discussed with the surgeon , as per discussion this is emergent . Patient is Alert and oriented x4 . Understands the risks , and agrees with the procedure . PMF Active Problems Active Problems: All Active Problems (Updated 05/13/22 @ 06:27 by Brandi Crane MD) Hyperglycemia due to diabetes mellitus (Acute) Normocytic anemia (Acute) PAD (peripheral artery disease) (Acute) Diabetic infection of left foot (Acute) Acute kidney injury (Acute) Osteomyelitis (Acute) Anemia (Acute) Diabetes type 2, controlled (Acute) Opioid use disorder (Acute) Past Medical History Medical History Chronic anemia CKD (chronic kidney disease) Diabetes Diabetic infection of left foot Opioid use disorder Osteomyelitis PAD (peripheral artery disease) Family History Family history of problems with anesthesia: No Surgical History History of Problems with Anesthesia: No Social History Social History Household Members: Family Housing: Apartment Do you presently have visiting nurse or other home services: No Patient Tobacco Use Status: Never used Tobacco service: No Current occupational status: disabled Meds Allergies Allergy/AdvReac Type Severity Reaction Status Date / Time No Known Allergies Allergy Verified 02/01/22 12:12 [No Known Allergies*] Active Medications: Current Medications Acetaminophen (Acetaminophen 325 Mg Tablet) 650 mg PO Q6H PRN PRN Reason: Pain, Mild (Pain Scale 1-3) Last Admin: 05/16/22 14:04 Dose: 650 mg Atorvastatin Calcium (Atorvastatin Calcium 10 Mg Tablet) 10 mg PO DAILY MARIA ELENA Last Admin: 05/20/22 08:50 Dose: 10 mg Carvedilol (Carvedilol 12.5 Mg Tablet) 12.5 mg PO BID MARIA ELENA; Protocol Last Admin: 05/20/22 08:50 Dose: 12.5 mg Dextrose (Dextrose 50 % 25 Gm/50 Ml Syringe) 25 gm IVPUSH Q15M PRN; Protocol PRN Reason: per Hypoglycemia Standing Ord. Last Admin: 05/13/22 04:12 Dose: 25 gm Docusate Sodium (Docusate Sodium 100 Mg Capsule) 100 mg PO DAILY PRN PRN Reason: Constipation Ferrous Sulfate (Ferrous Sulfate 324 Mg Tablet.Dr) 324 mg PO DAILY [facility] Last Admin: 05/20/22 08:50 Dose: 324 mg Glucose (Glucose Gel 15 Gm Gel..Gram.) 15 gm PO Q15M PRN; Protocol PRN Reason: per Hypoglycemia Standing Ord. Heparin Sodium (Porcine) (Heparin Sodium,Porcine 5,000 Unit/Ml Vial) 5,000 unit SUBCUT Q12H [facility] Last Admin: 05/20/22 07:33 Dose: Not Given Hydroxyzine HCl (Hydroxyzine Hcl 25 Mg Tablet) 25 mg PO TID PRN PRN Reason: itching Last Admin: 05/19/22 20:53 Dose: 25 mg Sodium Chloride (Ns) 1,000 mls @ 100 mls/hr IVCONT .Q10H [facility] Last Infusion: 05/20/22 13:07 Dose: 0 mls/hr Vancomycin HCl 1,000 mg/ (Sodium Chloride) 270 mls @ 270 mls/hr IV Q24H [facility] Last Infusion: 05/19/22 23:05 Dose: Infused Piperacillin Sod/Tazobactam (Sod 3.375 gm/ Sodium Chloride) 50 mls @ 100 mls/hr IV Q6H [facility] Last Infusion: 05/20/22 09:23 Dose: Infused Insulin Glargine (Insulin Glargine,Hum.Rec.Anlog 100 Unit/Ml 10 Ml Vial) 20 unit SUBCUT DAILY [facility] Last Admin: 05/20/22 08:50 Dose: Not Given Insulin Human Lispro (Insulin Lispro 100 Unit/Ml 3 Ml Vial) 0 unit SUBCUT QIDACHS [facility]; Protocol Last Admin: 05/20/22 11:40 Dose: Not Given Methadone HCl (Methadone Hcl 20 Mg/2 Ml Oral.Conc) 55 mg PO DAILY [facility] Last Admin: 05/20/22 08:50 Dose: 55 mg Morphine Sulfate (Morphine Sulfate 4 Mg/Ml Cartridge) 4 mg IVPUSH Q2H PRN; Protocol PRN Reason: Pain, Severe (Pain Scale 7-10) Last Admin: 05/20/22 08:55 Dose: 4 mg Nifedipine (Nifedipine Er 30 Mg Tab.Er.24) 90 mg PO DAILY [facility]; Protocol Last Admin: 05/14/22 07:39 Dose: 90 mg Olanzapine (Olanzapine 5 Mg Tablet) 5 mg PO ONCE PRN PRN Reason: anxiety/restlessness Last Admin: 05/18/22 00:10 Dose: 5 mg Olanzapine (Olanzapine 5 Mg Tablet) 5 mg PO ONCE PRN PRN Reason: anxiety/restlessness Last Admin: 05/19/22 20:53 Dose: 5 mg Olanzapine (Olanzapine 5 Mg Tablet) 5 mg PO ONCE PRN PRN Reason: anxiety/restlessness Omeprazole (Omeprazole 20 Mg Capsule.Dr) 20 mg PO DAILY@0630 [facility] Last Admin: 05/20/22 05:40 Dose: Not Given Ondansetron HCl (Ondansetron Hcl 4 Mg/2 Ml Vial) 4 mg IVPUSH Q8H PRN PRN Reason: Nausea and Vomiting Last Admin: 05/18/22 16:33 Dose: 4 mg Oxycodone HCl (Oxycodone Hcl Immed Release 5 Mg Tablet) 5 mg PO Q6H PRN PRN Reason: Pain, Moderate (Pain Scale 4-6 Pharmacy Consult (Consult Rx Perform Med Rec) 1 each MISCELLANE ONCE PRN PRN Reason: Consult order Pharmacy Consult (Consult Rx Vancomycin Dosing) 1 each MISCELLANE DAILY PRN PRN Reason: Consult order Sodium Chloride (0.9 % Sodium Chloride Flush 3 Ml Syringe) 3 ml IVFLUSH QSHIFT [facility] Last Admin: 05/20/22 07:24 Dose: Not Given Tamsulosin HCl (Tamsulosin Hcl 0.4 Mg Capsule) 0.4 mg PO DAILY [facility] Last Admin: 05/20/22 08:53 Dose: 0.4 mg Home Medications Medication Instructions Recorded Confirmed Last Taken Type atorvastatin 10 mg tablet 1 tab PO DAILY 04/05/22 05/12/22 Unknown History insulin aspart U-100 100 unit/mL 0 sliding scale dose subcut QIDACHS 04/05/22 05/12/22 Unknown History (3 mL) subcutaneous pen (Novolog Flexpen U-100 Insulin aspart) insulin glargine 100 unit/mL (3 20 - 30 unit subcut DAILY 04/05/22 05/12/22 Unknown History mL) subcutaneous pen (Lantus Solostar U-100 Insulin) lisinopril 20 mg tablet 20 mg PO DAILY 04/05/22 05/12/22 Unknown History methadone 10 mg/5 mL oral solution 55 mg PO DAILY 04/05/22 05/13/22 05/12/22 History omeprazole 20 mg capsule,delayed 20 mg PO DAILY 04/05/22 05/12/22 Unknown History release daptomycin 500 mg intravenous 500 mg IV DAILY 05/12/22 05/12/22 History solution Exam Exam Date and Time: May 20, 2022 1340 Height,Weight and Vital Signs: Height 5 ft 7 in Weight 104.326 kg Last Vital Signs Temp 97.7 F 05/20/22 13:26 Pulse 77 05/20/22 13:26 Resp 20 05/20/22 13:26 BP 167/77 H 05/20/22 13:26 Pulse Ox 96 05/20/22 13:26 O2 Del Method 05/20/22 13:26 O2 Flow Rate 2.0 05/16/22 08:00 Pertinent Lab Results Pertinent Lab Results: Laboratory Tests 05/12/22 05/12/22 05/12/22 17:39 17:45 18:08 WBC 16.4 H RBC 3.04 L Hgb 7.7 L Hct 24.7 L MCV 81.3 MCH 25.3 L MCHC 31.2 RDW 15.0 Plt Count 186 D MPV 11.1 Immature Gran % (Auto) 0.6 H Neut % (Auto) 88.1 H Lymph % (Auto) 4.6 L [place] % (Auto) 6.4 Eos % (Auto) 0.1 Baso % (Auto) 0.2 Lymph # (Auto) 0.8 L [place] # (Auto) 1.1 Eos # (Auto) 0.0 Baso # (Auto) 0.0 Abs Immat Gran (auto) 0.09 H Absolute Neuts (auto) 14.4 H Absolute Nucleated RBC 0.000 Nucleated RBC % (auto) 0.0 Smear Path Review ESR Sodium Potassium Chloride Carbon Dioxide Anion Gap BUN Creatinine Estim Creat Clear Calc Estimated GFR POC Glucose > 600 H* > 600 H* Random Glucose Lactic Acid Calcium Iron TIBC % Saturation Unsat Iron Binding Total Bilirubin Direct Bilirubin AST ALT Alkaline Phosphatase C-Reactive Protein Total Protein Albumin Lipase Vitamin B12 Folate Urine Color Urine Appearance Urine pH Ur Specific [place] Urine Protein Urine Glucose (UA) Urine Ketones Urine Blood Urine Nitrite Ur Leukocyte Esterase Urine RBC Urine WBC Ur Squamous Epith Cells Urine Bacteria Hyaline Casts Stool Occult Blood Vancomycin Trough Random Vancomycin Ethyl Alcohol Acetone, Qual COVID-19 (JOSE DAVID) COVID-19 Clin Com Blood Type Antibody Screen Crossmatch 05/12/22 05/12/22 05/12/22 18:08 18:08 18:08 WBC RBC Hgb Hct MCV MCH MCHC RDW Plt Count MPV Immature Gran % (Auto) Neut % (Auto) Lymph % (Auto) [place] % (Auto) Eos % (Auto) Baso % (Auto) Lymph # (Auto) [place] # (Auto) Eos # (Auto) Baso # (Auto) Abs Immat Gran (auto) Absolute Neuts (auto) Absolute Nucleated RBC Nucleated RBC % (auto) Smear Path Review ESR Sodium 132 L Potassium 4.5 Chloride 94 L Carbon Dioxide 27 Anion Gap 16 BUN 32 H Creatinine 2.13 H Estim Creat Clear Calc 44.5 Estimated GFR 32 POC Glucose Random Glucose 775 H* Lactic Acid Calcium 8.7 Iron TIBC % Saturation Unsat Iron Binding Total Bilirubin 0.4 Direct Bilirubin 0.2 AST 11 ALT 15 Alkaline Phosphatase 116 C-Reactive Protein 23.81 H Total Protein 7.8 Albumin 3.3 L Lipase 9 Vitamin B12 Folate Urine Color Urine Appearance Urine pH Ur Specific [place] Urine Protein Urine Glucose (UA) Urine Ketones Urine Blood Urine Nitrite Ur Leukocyte Esterase Urine RBC Urine WBC Ur Squamous Epith Cells Urine Bacteria Hyaline Casts Stool Occult Blood Vancomycin Trough Random Vancomycin Ethyl Alcohol < 10 Acetone, Qual Negative COVID-19 (JOSE DAVID) Negative COVID-19 Clin Com See Note Blood Type Antibody Screen Crossmatch 05/12/22 05/12/22 05/12/22 18:24 20:35 21:16 WBC RBC Hgb Hct MCV MCH MCHC RDW Plt Count MPV Immature Gran % (Auto) Neut % (Auto) Lymph % (Auto) [place] % (Auto) Eos % (Auto) Baso % (Auto) Lymph # (Auto) [place] # (Auto) Eos # (Auto) Baso # (Auto) Abs Immat Gran (auto) Absolute Neuts (auto) Absolute Nucleated RBC Nucleated RBC % (auto) Smear Path Review ESR 124 H Sodium Potassium Chloride Carbon Dioxide Anion Gap BUN Creatinine Estim Creat Clear Calc Estimated GFR POC Glucose > 600 H* Random Glucose Lactic Acid 1.0 Calcium Iron TIBC % Saturation Unsat Iron Binding Total Bilirubin Direct Bilirubin AST ALT Alkaline Phosphatase C-Reactive Protein Total Protein Albumin Lipase Vitamin B12 Folate Urine Color Urine Appearance Urine pH Ur Specific [place] Urine Protein Urine Glucose (UA) Urine Ketones Urine Blood Urine Nitrite Ur Leukocyte Esterase Urine RBC Urine WBC Ur Squamous Epith Cells Urine Bacteria Hyaline Casts Stool Occult Blood Vancomycin Trough Random Vancomycin Ethyl Alcohol Acetone, Qual COVID-19 (JOSE DAVID) COVID-19 [place] Blood Type Antibody Screen Crossmatch 05/12/22 05/12/22 05/12/22 21:30 23:01 23:25 WBC RBC Hgb Hct MCV MCH MCHC RDW Plt Count MPV Immature Gran % (Auto) Neut % (Auto) Lymph % (Auto) [place] % (Auto) Eos % (Auto) Baso % (Auto) Lymph # (Auto) [place] # (Auto) Eos # (Auto) Baso # (Auto) Abs Immat Gran (auto) Absolute Neuts (auto) Absolute Nucleated RBC Nucleated RBC % (auto) Smear Path Review ESR Sodium Potassium Chloride Carbon Dioxide Anion Gap BUN Creatinine Estim Creat Clear Calc Estimated GFR POC Glucose 599 H* 560 H* 501 H* Random Glucose Lactic Acid Calcium Iron TIBC % Saturation Unsat Iron Binding Total Bilirubin Direct Bilirubin AST ALT Alkaline Phosphatase C-Reactive Protein Total Protein Albumin Lipase Vitamin B12 Folate Urine Color Urine Appearance Urine pH Ur Specific [place] Urine Protein Urine Glucose (UA) Urine Ketones Urine Blood Urine Nitrite Ur Leukocyte Esterase Urine RBC Urine WBC Ur Squamous Epith Cells Urine Bacteria Hyaline Casts Stool Occult Blood Vancomycin Trough Random Vancomycin Ethyl Alcohol Acetone, Qual COVID-19 (JOSE DAVID) COVID-19 [place] Blood Type Antibody Screen Crossmatch 05/13/22 05/13/22 05/13/22 00:17 01:47 03:29 WBC RBC Hgb Hct MCV MCH MCHC RDW Plt Count MPV Immature Gran % (Auto) Neut % (Auto) Lymph % (Auto) [place] % (Auto) Eos % (Auto) Baso % (Auto) Lymph # (Auto) [place] # (Auto) Eos # (Auto) Baso # (Auto) Abs Immat Gran (auto) Absolute Neuts (auto) Absolute Nucleated RBC Nucleated RBC % (auto) Smear Path Review ESR Sodium Potassium Chloride Carbon Dioxide Anion Gap BUN Creatinine Estim Creat Clear Calc Estimated GFR POC Glucose 453 H* 253 H 80 Random Glucose Lactic Acid Calcium Iron TIBC % Saturation Unsat Iron Binding Total Bilirubin Direct Bilirubin AST ALT Alkaline Phosphatase C-Reactive Protein Total Protein Albumin Lipase Vitamin B12 Folate Urine Color Urine Appearance Urine pH Ur Specific [place] Urine Protein Urine Glucose (UA) Urine Ketones Urine Blood Urine Nitrite Ur Leukocyte Esterase Urine RBC Urine WBC Ur Squamous Epith Cells Urine Bacteria Hyaline Casts Stool Occult Blood Vancomycin Trough Random Vancomycin Ethyl Alcohol Acetone, Qual COVID-19 (JOSE DAVID) COVID-19 [employer] Com Blood Type Antibody Screen Crossmatch 05/13/22 05/13/22 05/13/22 05:00 05:57 06:00 WBC 15.4 H RBC 2.79 L Hgb 7.1 L Hct 22.8 L MCV 81.7 MCH 25.4 L MCHC 31.1 RDW 15.1 Plt Count 189 MPV 10.9 Immature Gran % (Auto) 0.5 H Neut % (Auto) 81.1 H Lymph % (Auto) 11.6 L [place] % (Auto) 5.9 Eos % (Auto) 0.6 Baso % (Auto) 0.3 Lymph # (Auto) 1.8 [place] # (Auto) 0.9 Eos # (Auto) 0.1 Baso # (Auto) 0.0 Abs Immat Gran (auto) 0.07 H Absolute Neuts (auto) 12.5 H Absolute Nucleated RBC 0.000 Nucleated RBC % (auto) 0.0 Smear Path Review ESR Sodium Potassium Chloride Carbon Dioxide Anion Gap BUN Creatinine Estim Creat Clear Calc Estimated GFR POC Glucose 147 H 133 H Random Glucose Lactic Acid Calcium Iron TIBC % Saturation Unsat Iron Binding Total Bilirubin Direct Bilirubin AST ALT Alkaline Phosphatase C-Reactive Protein Total Protein Albumin Lipase Vitamin B12 Folate Urine Color Urine Appearance Urine pH Ur Specific [place] Urine Protein Urine Glucose (UA) Urine Ketones Urine Blood Urine Nitrite Ur Leukocyte Esterase Urine RBC Urine WBC Ur Squamous Epith Cells Urine Bacteria Hyaline Casts Stool Occult Blood Vancomycin Trough Random Vancomycin Ethyl Alcohol Acetone, Qual COVID-19 (JOSE DAVID) COVID-19 [facility] Com Blood Type Antibody Screen Crossmatch 05/13/22 05/13/22 05/13/22 06:00 06:52 13:03 WBC RBC Hgb Hct MCV MCH MCHC RDW Plt Count MPV Immature Gran % (Auto) Neut % (Auto) Lymph % (Auto) [place] % (Auto) Eos % (Auto) Baso % (Auto) Lymph # (Auto) [place] # (Auto) Eos # (Auto) Baso # (Auto) Abs Immat Gran (auto) Absolute Neuts (auto) Absolute Nucleated RBC Nucleated RBC % (auto) Smear Path Review ESR Sodium 142 Potassium 3.8 Chloride 104 Carbon Dioxide 30 H Anion Gap 12 BUN 27 H Creatinine 1.71 H Estim Creat Clear Calc 55.5 Estimated GFR 42 POC Glucose 88 182 H Random Glucose 104 D Lactic Acid Calcium 8.8 Iron TIBC % Saturation Unsat Iron Binding Total Bilirubin Direct Bilirubin AST ALT Alkaline Phosphatase C-Reactive Protein Total Protein Albumin Lipase Vitamin B12 Folate Urine Color Urine Appearance Urine pH Ur Specific [place] Urine Protein Urine Glucose (UA) Urine Ketones Urine Blood Urine Nitrite Ur Leukocyte Esterase Urine RBC Urine WBC Ur Squamous Epith Cells Urine Bacteria Hyaline Casts Stool Occult Blood Vancomycin Trough Random Vancomycin Ethyl Alcohol Acetone, Qual COVID-19 (JOSE DAVID) COVID-19 [place] Blood Type Antibody Screen Crossmatch 05/13/22 05/13/22 05/14/22 18:45 20:43 07:45 WBC RBC Hgb Hct MCV MCH MCHC RDW Plt Count MPV Immature Gran % (Auto) Neut % (Auto) Lymph % (Auto) [place] % (Auto) Eos % (Auto) Baso % (Auto) Lymph # (Auto) [place] # (Auto) Eos # (Auto) Baso # (Auto) Abs Immat Gran (auto) Absolute Neuts (auto) Absolute Nucleated RBC Nucleated RBC % (auto) Smear Path Review ESR Sodium Potassium Chloride Carbon Dioxide Anion Gap BUN Creatinine Estim Creat Clear Calc Estimated GFR POC Glucose 195 H 329 H 341 H Random Glucose Lactic Acid Calcium Iron TIBC % Saturation Unsat Iron Binding Total Bilirubin Direct Bilirubin AST ALT Alkaline Phosphatase C-Reactive Protein Total Protein Albumin Lipase Vitamin B12 Folate Urine Color Urine Appearance Urine pH Ur Specific [place] Urine Protein Urine Glucose (UA) Urine Ketones Urine Blood Urine Nitrite Ur Leukocyte Esterase Urine RBC Urine WBC Ur Squamous Epith Cells Urine Bacteria Hyaline Casts Stool Occult Blood Vancomycin Trough Random Vancomycin Ethyl Alcohol Acetone, Qual COVID-19 (JOSE DAVID) COVID-19 [place] Blood Type Antibody Screen Crossmatch 05/14/22 05/14/22 05/14/22 09:14 09:14 11:07 WBC 10.8 RBC 2.53 L Hgb 6.4 L* Hct 21.1 L MCV 83.4 MCH 25.3 L MCHC 30.3 L RDW 15.0 Plt Count 195 MPV 11.8 Immature Gran % (Auto) 0.5 H Neut % (Auto) 74.5 H Lymph % (Auto) 18.0 L [place] % (Auto) 6.0 Eos % (Auto) 0.6 Baso % (Auto) 0.4 Lymph # (Auto) 2.0 [place] # (Auto) 0.7 Eos # (Auto) 0.1 Baso # (Auto) 0.0 Abs Immat Gran (auto) 0.05 H Absolute Neuts (auto) 8.1 Absolute Nucleated RBC 0.000 Nucleated RBC % (auto) 0.0 Smear Path Review ESR Sodium 138 Potassium 4.9 D Chloride 101 Carbon Dioxide 27 Anion Gap 15 BUN 39 H Creatinine 2.06 H Estim Creat Clear Calc 46.0 Estimated GFR 34 POC Glucose Random Glucose 415 H* Lactic Acid Calcium 8.2 L D Iron TIBC % Saturation Unsat Iron Binding Total Bilirubin Direct Bilirubin AST ALT Alkaline Phosphatase C-Reactive Protein Total Protein Albumin Lipase Vitamin B12 Folate Urine Color Urine Appearance Urine pH Ur Specific [place] Urine Protein Urine Glucose (UA) Urine Ketones Urine Blood Urine Nitrite Ur Leukocyte Esterase Urine RBC Urine WBC Ur Squamous Epith Cells Urine Bacteria Hyaline Casts Stool Occult Blood Vancomycin Trough Random Vancomycin Ethyl Alcohol Acetone, Qual COVID-19 (JOSE DAVID) COVID-[employer] Com Blood Type AB Positive Antibody Screen NEGATIVE Crossmatch See Detail 05/14/22 05/14/22 05/14/22 13:00 13:01 16:13 WBC RBC Hgb Hct MCV MCH MCHC RDW Plt Count MPV Immature Gran % (Auto) Neut % (Auto) Lymph % (Auto) [place] % (Auto) Eos % (Auto) Baso % (Auto) Lymph # (Auto) [place] # (Auto) Eos # (Auto) Baso # (Auto) Abs Immat Gran (auto) Absolute Neuts (auto) Absolute Nucleated RBC Nucleated RBC % (auto) Smear Path Review ESR Sodium Potassium Chloride Carbon Dioxide Anion Gap BUN Creatinine Estim Creat Clear Calc Estimated GFR POC Glucose 366 H* 282 H Random Glucose Lactic Acid Calcium Iron TIBC % Saturation Unsat Iron Binding Total Bilirubin Direct Bilirubin AST ALT Alkaline Phosphatase C-Reactive Protein Total Protein Albumin Lipase Vitamin B12 Folate Urine Color Yellow Urine Appearance Turbid Urine pH 5.0 Ur Specific [place] 1.025 Urine Protein 30 (1+) H Urine Glucose (UA) 250 H Urine Ketones Negative Urine Blood Trace H Urine Nitrite Negative Ur Leukocyte Esterase Large (3+) H Urine RBC 0-2 Urine WBC >50 H Ur Squamous Epith Cells 0-2 Urine Bacteria None Seen Hyaline Casts 0-2 Stool Occult Blood Vancomycin Trough Random Vancomycin Ethyl Alcohol Acetone, Qual COVID-19 (JOSE DAVID) COVID-19 [place] Blood Type Antibody Screen Crossmatch 05/14/22 05/14/22 05/14/22 19:00 19:00 20:19 WBC RBC Hgb Hct MCV MCH MCHC RDW Plt Count MPV Immature Gran % (Auto) Neut % (Auto) Lymph % (Auto) [place] % (Auto) Eos % (Auto) Baso % (Auto) Lymph # (Auto) [place] # (Auto) Eos # (Auto) Baso # (Auto) Abs Immat Gran (auto) Absolute Neuts (auto) Absolute Nucleated RBC Nucleated RBC % (auto) Smear Path Review ESR Sodium Potassium Chloride Carbon Dioxide Anion Gap BUN Creatinine 2.26 H Estim Creat Clear Calc 42.0 Estimated GFR 30 POC Glucose 294 H Random Glucose Lactic Acid Calcium Iron TIBC % Saturation Unsat Iron Binding Total Bilirubin Direct Bilirubin AST ALT Alkaline Phosphatase C-Reactive Protein Total Protein Albumin Lipase Vitamin B12 Folate Urine Color Urine Appearance Urine pH Ur Specific [place] Urine Protein Urine Glucose (UA) Urine Ketones Urine Blood Urine Nitrite Ur Leukocyte Esterase Urine RBC Urine WBC Ur Squamous Epith Cells Urine Bacteria Hyaline Casts Stool Occult Blood Vancomycin Trough Random Vancomycin 18.1 Ethyl Alcohol Acetone, Qual COVID-19 (JOSE DAVID) COVID-19 Clin Com Blood Type Antibody Screen Crossmatch 05/15/22 05/15/22 05/15/22 05:44 05:44 07:13 WBC 12.2 H RBC 2.43 L Hgb 6.1 L* Hct 19.9 L* MCV 81.9 MCH 25.1 L MCHC 30.7 L RDW 15.0 Plt Count 199 MPV 11.4 Immature Gran % (Auto) Neut % (Auto) Lymph % (Auto) [place] % (Auto) Eos % (Auto) Baso % (Auto) Lymph # (Auto) [place] # (Auto) Eos # (Auto) Baso # (Auto) Abs Immat Gran (auto) Absolute Neuts (auto) Absolute Nucleated RBC 0.000 Nucleated RBC % (auto) 0.0 Smear Path Review ESR Sodium 138 Potassium 4.4 Chloride 103 Carbon Dioxide 25 Anion Gap 14 BUN 40 H Creatinine 2.25 H Estim Creat Clear Calc 42.2 Estimated GFR 30 POC Glucose 163 H Random Glucose 184 H D Lactic Acid Calcium 7.7 L D Iron 30 L TIBC 150 L % Saturation 20 Unsat Iron Binding 120 Total Bilirubin Direct Bilirubin AST ALT Alkaline Phosphatase C-Reactive Protein Total Protein Albumin Lipase Vitamin B12 Folate Urine Color Urine Appearance Urine pH Ur Specific [place] Urine Protein Urine Glucose (UA) Urine Ketones Urine Blood Urine Nitrite Ur Leukocyte Esterase Urine RBC Urine WBC Ur Squamous Epith Cells Urine Bacteria Hyaline Casts Stool Occult Blood Vancomycin Trough Random Vancomycin Ethyl Alcohol Acetone, Qual COVID-19 (JOSE DAVID) COVID-19 [facility] Com Blood Type Antibody Screen Crossmatch 05/15/22 05/15/22 05/15/22 11:00 14:19 15:55 WBC 11.8 H RBC 2.83 L Hgb 7.4 L D Hct 23.5 L MCV 83.0 MCH 26.1 L MCHC 31.5 RDW 15.6 Plt Count 202 MPV 10.8 Immature Gran % (Auto) Neut % (Auto) Lymph % (Auto) [place] % (Auto) Eos % (Auto) Baso % (Auto) Lymph # (Auto) [place] # (Auto) Eos # (Auto) Baso # (Auto) Abs Immat Gran (auto) Absolute Neuts (auto) Absolute Nucleated RBC 0.000 Nucleated RBC % (auto) 0.0 Smear Path Review ESR Sodium Potassium Chloride Carbon Dioxide Anion Gap BUN Creatinine Estim Creat Clear Calc Estimated GFR POC Glucose 272 H 319 H Random Glucose Lactic Acid Calcium Iron TIBC % Saturation Unsat Iron Binding Total Bilirubin Direct Bilirubin AST ALT Alkaline Phosphatase C-Reactive Protein Total Protein Albumin Lipase Vitamin B12 Folate Urine Color Urine Appearance Urine pH Ur Specific [place] Urine Protein Urine Glucose (UA) Urine Ketones Urine Blood Urine Nitrite Ur Leukocyte Esterase Urine RBC Urine WBC Ur Squamous Epith Cells Urine Bacteria Hyaline Casts Stool Occult Blood Vancomycin Trough Random Vancomycin Ethyl Alcohol Acetone, Qual COVID-19 (JOSE DAVID) COVID-19 [facility] Com Blood Type Antibody Screen Crossmatch 05/15/22 05/15/22 05/16/22 18:56 19:32 05:18 WBC 9.6 RBC 2.67 L Hgb 6.8 L* Hct 21.8 L MCV 81.6 MCH 25.5 L MCHC 31.2 RDW 15.3 Plt Count 200 MPV 11.0 Immature Gran % (Auto) Neut % (Auto) Lymph % (Auto) [place] % (Auto) Eos % (Auto) Baso % (Auto) Lymph # (Auto) [place] # (Auto) Eos # (Auto) Baso # (Auto) Abs Immat Gran (auto) Absolute Neuts (auto) Absolute Nucleated RBC 0.000 Nucleated RBC % (auto) 0.0 Smear Path Review ESR Sodium Potassium Chloride Carbon Dioxide Anion Gap BUN Creatinine Estim Creat Clear Calc Estimated GFR POC Glucose 241 H Random Glucose Lactic Acid Calcium Iron TIBC % Saturation Unsat Iron Binding Total Bilirubin Direct Bilirubin AST ALT Alkaline Phosphatase C-Reactive Protein Total Protein Albumin Lipase Vitamin B12 Folate Urine Color Urine Appearance Urine pH Ur Specific [place] Urine Protein Urine Glucose (UA) Urine Ketones Urine Blood Urine Nitrite Ur Leukocyte Esterase Urine RBC Urine WBC Ur Squamous Epith Cells Urine Bacteria Hyaline Casts Stool Occult Blood Vancomycin Trough Random Vancomycin 15.5 Ethyl Alcohol Acetone, Qual COVID-19 (JOSE DAVID) COVID-19 [place] Blood Type Antibody Screen Crossmatch 05/16/22 05/16/22 05/16/22 05:54 07:24 11:05 WBC RBC Hgb Hct MCV MCH MCHC RDW Plt Count MPV Immature Gran % (Auto) Neut % (Auto) Lymph % (Auto) [place] % (Auto) Eos % (Auto) Baso % (Auto) Lymph # (Auto) [place] # (Auto) Eos # (Auto) Baso # (Auto) Abs Immat Gran (auto) Absolute Neuts (auto) Absolute Nucleated RBC Nucleated RBC % (auto) Smear Path Review ESR Sodium 135 Potassium 4.5 Chloride 102 Carbon Dioxide 24 Anion Gap 14 BUN 31 H Creatinine 1.88 H Estim Creat Clear Calc 50.5 Estimated GFR 37 POC Glucose 228 H 269 H Random Glucose 266 H D Lactic Acid Calcium 7.7 L Iron TIBC % Saturation Unsat Iron Binding Total Bilirubin Direct Bilirubin AST ALT Alkaline Phosphatase C-Reactive Protein Total Protein Albumin Lipase Vitamin B12 Folate Urine Color Urine Appearance Urine pH Ur Specific [place] Urine Protein Urine Glucose (UA) Urine Ketones Urine Blood Urine Nitrite Ur Leukocyte Esterase Urine RBC Urine WBC Ur Squamous Epith Cells Urine Bacteria Hyaline Casts Stool Occult Blood Vancomycin Trough Random Vancomycin Ethyl Alcohol Acetone, Qual COVID-19 (JOSE DAVID) COVID-19 [place] Blood Type Antibody Screen Crossmatch 05/16/22 05/16/22 05/16/22 15:59 19:23 Unknown WBC RBC Hgb Hct MCV MCH MCHC RDW Plt Count MPV Immature Gran % (Auto) Neut % (Auto) Lymph % (Auto) [place] % (Auto) Eos % (Auto) Baso % (Auto) Lymph # (Auto) [place] # (Auto) Eos # (Auto) Baso # (Auto) Abs Immat Gran (auto) Absolute Neuts (auto) Absolute Nucleated RBC Nucleated RBC % (auto) Smear Path Review ESR Sodium Potassium Chloride Carbon Dioxide Anion Gap BUN Creatinine Estim Creat Clear Calc Estimated GFR POC Glucose 290 H 303 H Random Glucose Lactic Acid Calcium Iron TIBC % Saturation Unsat Iron Binding Total Bilirubin Direct Bilirubin AST ALT Alkaline Phosphatase C-Reactive Protein Total Protein Albumin Lipase Vitamin B12 Folate Urine Color Urine Appearance Urine pH Ur Specific [place] Urine Protein Urine Glucose (UA) Urine Ketones Urine Blood Urine Nitrite Ur Leukocyte Esterase Urine RBC Urine WBC Ur Squamous Epith Cells Urine Bacteria Hyaline Casts Stool Occult Blood NEGATIVE Vancomycin Trough Random Vancomycin Ethyl Alcohol Acetone, Qual COVID-19 (JOSE DAVID) [facility] Blood Type Antibody Screen Crossmatch 05/17/22 05/17/22 05/17/22 06:01 06:01 07:34 WBC 11.4 H RBC 3.13 L Hgb 8.3 L D Hct 26.1 L MCV 83.4 MCH 26.5 L MCHC 31.8 RDW 16.4 H Plt Count 217 MPV 11.4 Immature Gran % (Auto) Neut % (Auto) Lymph % (Auto) Summers % (Auto) Eos % (Auto) Baso % (Auto) Lymph # (Auto) Summers # (Auto) Eos # (Auto) Baso # (Auto) Abs Immat Gran (auto) Absolute Neuts (auto) Absolute Nucleated RBC 0.000 Nucleated RBC % (auto) 0.0 Smear Path Review ESR Sodium Potassium Chloride Carbon Dioxide Anion Gap BUN Creatinine Estim Creat Clear Calc Estimated GFR POC Glucose 162 H Random Glucose Lactic Acid Calcium Iron TIBC % Saturation Unsat Iron Binding Total Bilirubin Direct Bilirubin AST ALT Alkaline Phosphatase C-Reactive Protein Total Protein Albumin Lipase Vitamin B12 Folate Urine Color Urine Appearance Urine pH Ur Specific [place] Urine Protein Urine Glucose (UA) Urine Ketones Urine Blood Urine Nitrite Ur Leukocyte Esterase Urine RBC Urine WBC Ur Squamous Epith Cells Urine Bacteria Hyaline Casts Stool Occult Blood Vancomycin Trough Random Vancomycin Cancelled Ethyl Alcohol Acetone, Qual COVID-19 (JOSE DAVID) COVID-19 [place] Blood Type Antibody Screen Crossmatch 05/17/22 05/17/22 05/17/22 09:24 10:58 15:03 WBC RBC Hgb Hct MCV MCH MCHC RDW Plt Count MPV Immature Gran % (Auto) Neut % (Auto) Lymph % (Auto) Summers % (Auto) Eos % (Auto) Baso % (Auto) Lymph # (Auto) Summers # (Auto) Eos # (Auto) Baso # (Auto) Abs Immat Gran (auto) Absolute Neuts (auto) Absolute Nucleated RBC Nucleated RBC % (auto) Smear Path Review ESR Sodium Potassium Chloride Carbon Dioxide Anion Gap BUN Creatinine 1.51 H Estim Creat Clear Calc 62.8 Estimated GFR 48 POC Glucose 260 H 361 H* Random Glucose Lactic Acid Calcium Iron TIBC % Saturation Unsat Iron Binding Total Bilirubin Direct Bilirubin AST ALT Alkaline Phosphatase C-Reactive Protein Total Protein Albumin Lipase Vitamin B12 Folate Urine Color Urine Appearance Urine pH Ur Specific [place] Urine Protein Urine Glucose (UA) Urine Ketones Urine Blood Urine Nitrite Ur Leukocyte Esterase Urine RBC Urine WBC Ur Squamous Epith Cells Urine Bacteria Hyaline Casts Stool Occult Blood Vancomycin Trough Random Vancomycin Ethyl Alcohol Acetone, Qual COVID-19 (JOSE DAVID) [facility] Blood Type Antibody Screen Crossmatch 05/17/22 05/17/22 05/18/22 17:52 18:59 05:31 WBC RBC Hgb Hct MCV MCH MCHC RDW Plt Count MPV Immature Gran % (Auto) Neut % (Auto) Lymph % (Auto) Summers % (Auto) Eos % (Auto) Baso % (Auto) Lymph # (Auto) Summers # (Auto) Eos # (Auto) Baso # (Auto) Abs Immat Gran (auto) Absolute Neuts (auto) Absolute Nucleated RBC Nucleated RBC % (auto) Smear Path Review ESR Sodium Potassium Chloride Carbon Dioxide Anion Gap BUN Creatinine Estim Creat Clear Calc Estimated GFR POC Glucose 328 H Random Glucose Lactic Acid Calcium Iron TIBC % Saturation Unsat Iron Binding Total Bilirubin Direct Bilirubin AST ALT Alkaline Phosphatase C-Reactive Protein Total Protein Albumin Lipase Vitamin B12 344 Folate 9.8 Urine Color Urine Appearance Urine pH Ur Specific [place] Urine Protein Urine Glucose (UA) Urine Ketones Urine Blood Urine Nitrite Ur Leukocyte Esterase Urine RBC Urine WBC Ur Squamous Epith Cells Urine Bacteria Hyaline Casts Stool Occult Blood Vancomycin Trough Random Vancomycin 14.2 L Ethyl Alcohol Acetone, Qual COVID-19 (JOSE DAVID) COVID-19 [place] Blood Type Antibody Screen Crossmatch 05/18/22 05/18/22 05/18/22 05:31 05:31 07:57 WBC 10.9 H RBC 3.04 L Hgb 8.0 L Hct 25.3 L MCV 83.2 MCH 26.3 L MCHC 31.6 RDW 16.3 H Plt Count 232 MPV 10.8 Immature Gran % (Auto) Neut % (Auto) Lymph % (Auto) Summers % (Auto) Eos % (Auto) Baso % (Auto) Lymph # (Auto) Summers # (Auto) Eos # (Auto) Baso # (Auto) Abs Immat Gran (auto) Absolute Neuts (auto) Absolute Nucleated RBC 0.000 Nucleated RBC % (auto) 0.0 Smear Path Review ESR Sodium Potassium Chloride Carbon Dioxide Anion Gap BUN Creatinine 1.47 H Estim Creat Clear Calc 64.5 Estimated GFR 50 POC Glucose 210 H Random Glucose Lactic Acid Calcium Iron TIBC % Saturation Unsat Iron Binding Total Bilirubin Direct Bilirubin AST ALT Alkaline Phosphatase C-Reactive Protein Total Protein Albumin Lipase Vitamin B12 Folate Urine Color Urine Appearance Urine pH Ur Specific [place] Urine Protein Urine Glucose (UA) Urine Ketones Urine Blood Urine Nitrite Ur Leukocyte Esterase Urine RBC Urine WBC Ur Squamous Epith Cells Urine Bacteria Hyaline Casts Stool Occult Blood Vancomycin Trough Random Vancomycin Ethyl Alcohol Acetone, Qual COVID-19 (JOSE DAVID) COVID-19 [place] Blood Type Antibody Screen Crossmatch 05/18/22 05/18/22 05/18/22 12:07 15:12 19:16 WBC RBC Hgb Hct MCV MCH MCHC RDW Plt Count MPV Immature Gran % (Auto) Neut % (Auto) Lymph % (Auto) Summers % (Auto) Eos % (Auto) Baso % (Auto) Lymph # (Auto) Summers # (Auto) Eos # (Auto) Baso # (Auto) Abs Immat Gran (auto) Absolute Neuts (auto) Absolute Nucleated RBC Nucleated RBC % (auto) Smear Path Review ESR Sodium Potassium Chloride Carbon Dioxide Anion Gap BUN Creatinine Estim Creat Clear Calc Estimated GFR POC Glucose 188 H 168 H Random Glucose Lactic Acid Calcium Iron TIBC % Saturation Unsat Iron Binding Total Bilirubin Direct Bilirubin AST ALT Alkaline Phosphatase C-Reactive Protein Total Protein Albumin Lipase Vitamin B12 Folate Urine Color Urine Appearance Urine pH Ur Specific [place] Urine Protein Urine Glucose (UA) Urine Ketones Urine Blood Urine Nitrite Ur Leukocyte Esterase Urine RBC Urine WBC Ur Squamous Epith Cells Urine Bacteria Hyaline Casts Stool Occult Blood Vancomycin Trough 12.0 Random Vancomycin Ethyl Alcohol Acetone, Qual COVID-19 (JOSE DAVID) COVID-19 [place] Blood Type Antibody Screen Crossmatch 05/18/22 05/19/22 05/19/22 20:14 06:22 06:22 WBC 10.8 RBC 3.07 L Hgb 8.2 L Hct 26.2 L MCV 85.3 MCH 26.7 L MCHC 31.3 RDW 16.7 H Plt Count 276 MPV 11.2 Immature Gran % (Auto) Neut % (Auto) Lymph % (Auto) Summers % (Auto) Eos % (Auto) Baso % (Auto) Lymph # (Auto) [place] # (Auto) Eos # (Auto) Baso # (Auto) Abs Immat Gran (auto) Absolute Neuts (auto) Absolute Nucleated RBC 0.000 Nucleated RBC % (auto) 0.0 Smear Path Review ESR Sodium Potassium Chloride Carbon Dioxide Anion Gap BUN Creatinine 1.57 H Estim Creat Clear Calc 60.4 Estimated GFR 46 POC Glucose 244 H Random Glucose Lactic Acid Calcium Iron TIBC % Saturation Unsat Iron Binding Total Bilirubin Direct Bilirubin AST ALT Alkaline Phosphatase C-Reactive Protein Total Protein Albumin Lipase Vitamin B12 Folate Urine Color Urine Appearance Urine pH Ur Specific [place] Urine Protein Urine Glucose (UA) Urine Ketones Urine Blood Urine Nitrite Ur Leukocyte Esterase Urine RBC Urine WBC Ur Squamous Epith Cells Urine Bacteria Hyaline Casts Stool Occult Blood Vancomycin Trough Random Vancomycin Ethyl Alcohol Acetone, Qual COVID-19 (JOSE DAVID) [facility] Blood Type Antibody Screen Crossmatch 05/19/22 05/19/22 05/19/22 07:20 11:12 15:27 WBC RBC Hgb Hct MCV MCH MCHC RDW Plt Count MPV Immature Gran % (Auto) Neut % (Auto) Lymph % (Auto) [place] % (Auto) Eos % (Auto) Baso % (Auto) Lymph # (Auto) [place] # (Auto) Eos # (Auto) Baso # (Auto) Abs Immat Gran (auto) Absolute Neuts (auto) Absolute Nucleated RBC Nucleated RBC % (auto) Smear Path Review ESR Sodium Potassium Chloride Carbon Dioxide Anion Gap BUN Creatinine Estim Creat Clear Calc Estimated GFR POC Glucose 296 H 331 H 348 H Random Glucose Lactic Acid Calcium Iron TIBC % Saturation Unsat Iron Binding Total Bilirubin Direct Bilirubin AST ALT Alkaline Phosphatase C-Reactive Protein Total Protein Albumin Lipase Vitamin B12 Folate Urine Color Urine Appearance Urine pH Ur Specific [place] Urine Protein Urine Glucose (UA) Urine Ketones Urine Blood Urine Nitrite Ur Leukocyte Esterase Urine RBC Urine WBC Ur Squamous Epith Cells Urine Bacteria Hyaline Casts Stool Occult Blood Vancomycin Trough Random Vancomycin Ethyl Alcohol Acetone, Qual COVID-19 (JOSE DAVID) COVID-19 [place] Blood Type Antibody Screen Crossmatch 05/19/22 05/19/22 05/20/22 16:59 20:59 05:49 WBC RBC Hgb Hct MCV MCH MCHC RDW Plt Count MPV Immature Gran % (Auto) Neut % (Auto) Lymph % (Auto) [place] % (Auto) Eos % (Auto) Baso % (Auto) Lymph # (Auto) [place] # (Auto) Eos # (Auto) Baso # (Auto) Abs Immat Gran (auto) Absolute Neuts (auto) Absolute Nucleated RBC Nucleated RBC % (auto) Smear Path Review ESR Sodium Potassium Chloride Carbon Dioxide Anion Gap BUN Creatinine Estim Creat Clear Calc Estimated GFR POC Glucose 342 H 380 H* Random Glucose Lactic Acid Calcium Iron TIBC % Saturation Unsat Iron Binding Total Bilirubin Direct Bilirubin AST ALT Alkaline Phosphatase C-Reactive Protein Total Protein Albumin Lipase Vitamin B12 Folate Urine Color Urine Appearance Urine pH Ur Specific [place] Urine Protein Urine Glucose (UA) Urine Ketones Urine Blood Urine Nitrite Ur Leukocyte Esterase Urine RBC Urine WBC Ur Squamous Epith Cells Urine Bacteria Hyaline Casts Stool Occult Blood Vancomycin Trough Random Vancomycin Ethyl Alcohol Acetone, Qual COVID-19 (JOSE DAVID) COVID-19 [facility] Blood Type AB Positive Antibody Screen NEGATIVE Crossmatch 05/20/22 05/20/22 05/20/22 05:50 07:26 11:07 WBC RBC Hgb Hct MCV MCH MCHC RDW Plt Count MPV Immature Gran % (Auto) Neut % (Auto) Lymph % (Auto) [place] % (Auto) Eos % (Auto) Baso % (Auto) Lymph # (Auto) [place] # (Auto) Eos # (Auto) Baso # (Auto) Abs Immat Gran (auto) Absolute Neuts (auto) Absolute Nucleated RBC Nucleated RBC % (auto) Smear Path Review ESR Sodium Potassium Chloride Carbon Dioxide Anion Gap BUN Creatinine 1.39 Estim Creat Clear Calc 68.3 Estimated GFR 53 POC Glucose 200 H 172 H Random Glucose Lactic Acid Calcium Iron TIBC % Saturation Unsat Iron Binding Total Bilirubin Direct Bilirubin AST ALT Alkaline Phosphatase C-Reactive Protein Total Protein Albumin Lipase Vitamin B12 Folate Urine Color Urine Appearance Urine pH Ur Specific [place] Urine Protein Urine Glucose (UA) Urine Ketones Urine Blood Urine Nitrite Ur Leukocyte Esterase Urine RBC Urine WBC Ur Squamous Epith Cells Urine Bacteria Hyaline Casts Stool Occult Blood Vancomycin Trough Random Vancomycin Ethyl Alcohol Acetone, Qual COVID-19 (JOSE DAVID) COVID-19 [facility] Blood Type Antibody Screen Crossmatch Airway Mallampati Class: IV TM Dist: >3cm Neck ROM: Limited Denture: Upper and Lower Loose/Missing/Broken Teeth: Yes Heart: S1,S2 Lungs: b/l breath sounds Assessment and Plan Assessment Anesthesia Assessment: Anesthesia Plan Discussed and Chart Reviewed Final Anesthetic Review Family History of Problems with Anesthesia: No History of Problems with Anesthesia: No NPO: Yes ASA Class: IV and Emergency Final Preanesthetic Review: Meds/Allgs Chart Reviewed, Consent Obtained/Reviewed and Anes Risks/Benef Reviewed Patient Risk: High Procedure Risk: Intermediate Anesthetic Plan Anesthetic Plan: GA Disposition: Inp. Admit - Standard Bed
--- NOTE | 2022-05-20 13:45 | PC.NURSE ---
Patient alert and oriented x3. Knows name, date of , able to correctly verbalize month, where he is, day of the week & year, as well as what/where procedure is being done. Consents for both procedure & anesthesia sign by patient.
--- NOTE | 2022-05-20 15:41 | W.PM.OPN ---
Operative Note Operative Note Date of Service: 05/20/22 Narrative: Operative note by [facility] Preoperative diagnosis: 1. Left foot diabetic ulcer 2. Osteomyelitis Postoperative diagnosis: Same Procedure: Left transmetatarsal amputation Surgeon:Guy Brown M.D. Lamp Stack Developer: Leonard Anesthesia: General Specimens: 1 Drains: None Estimated blood loss: 100 ml Indications: Complex 56-year-old gentleman with a history of diabetes had prior toe amputation which was nonhealing. He has undergone angiogram. Now presents for transmetatarsal amputation. Please note this was a an urgent surgery. At the time of our obtaining of consent he was alert oriented to person place and time. Demonstrated a clear understanding of everything that was explained to him him by myself and Anesthesia. Due to the urgent nature of the operation and the progression of infection it was decided to move forward with the operation. The patient did agree and consented on his own free will as well. The patient has signed the informed consent after reviewing risks, complications, benefits, and alternatives previously discussed with the patient. The patient was given the opportunity to ask any additional questions or voice any concerns. All questions were answered to the patient's satisfaction. Procedure in detail: Patient was brought to the operating room prior to which a time-out was called for patient identification and site verification. Left leg was prepped and draped in standard surgical fashion. Curvilinear incision was made over the metatarsals. And a posterior flap was created. Once through the skin subcu, fascia, hemostasis was obtained with electrocautery. Dorsalis pedis artery was easily identified and ligated with a 2-0 silk tie. We cut through all the deep tissue. This was then removed creating a posterior flap. The tissue was thoroughly irrigated out. Bony edges were filed down with a rasp. We then brought the posterior flap anteriorly. This was reapproximated using 2 0 Polysorb. This was closed in multiple layers. Finally skin was closed with a 2 0 nylon in a mattress fashion along with skin clips. Xeroform and a sterile dressing were applied. At the end the case sponge instrument counts were correct. Patient tolerated the procedure well. Returned to recovery with stable vitals. This note is constructed using voice recognition software. While every effort has been made to ensure accuracy, field horticultural specialty grower errors may have been included. Thank you for allowing me to participate in the care of your patient. Yours sincerely, Guy Brown MD, FACS, R.P.V.I.
[2022-05-20 16:56] LABS: Glucose, Whole Blood 201 mg/dL (60-115)
[2022-05-20] MEDS: Insulin Lispro 100 UNIT/ML 3 ML VIAL SUBCUT ×2 (17:20→20:16)
[2022-05-20 19:57] LABS: Glucose, Whole Blood 177 mg/dL (60-115)
[2022-05-20] MEDS: carvediloL 12.5 MG TABLET 25 MG PO (20:16)
[2022-05-20] MEDS: 0.9 % Sodium Chloride Flush 3 ML SYRINGE IVFLUSH (20:19)
[2022-05-20] MEDS: oxyCODONE HCl Immed Release 5 MG TABLET PO (21:10)
[2022-05-20] MEDS: vancomycin HCL 1,000 MG in 0.9 % Sodium Chloride 250 ML 270 MG IV (21:12)
[2022-05-21] MEDS: Morphine Sulfate 4 MG/ML CARTRIDGE IVPUSH ×2 (02:04→22:10)
[2022-05-21] MEDS: Piperacillin Sodium/Tazobactam 3.375 GM in 0.9 % Sodium Chloride 50 ML IV ×2 (02:05→07:58)
[2022-05-21 03:14] VITALS: BP 156/74; PULSE 92; RESP 17; TEMP 38.3; O2SAT 97
[2022-05-21 03:28] VITALS: TEMP 37.6
[2022-05-21] MEDS: Acetaminophen 325 MG TABLET 650 MG PO (03:30)
[2022-05-21] MEDS: oxyCODONE HCl Immed Release 5 MG TABLET PO ×2 (03:31→19:40)
[2022-05-21] MEDS: 0.9 % Sodium Chloride 1,000 ML 100 ML IVCONT (05:42)
[2022-05-21] MEDS: Omeprazole 20 MG CAPSULE.DR PO (05:42)
[2022-05-21] MEDS: Heparin Sodium,Porcine 5,000 UNIT/ML VIAL 5000 UNIT SUBCUT ×2 (05:42→17:02)
[2022-05-21 06:08] LABS: Hematocrit 24.3 % (42.0-52.0); Hemoglobin 7.6 g/dl (14.0-18.0); Mean Corpuscular HGB Conc 31.3 g/dl (31.0-36.0); Mean Corpuscular Hemoglobin 26.6 pg (27.0-33.0); Mean Platelet Volume 10.9 fL (9.4-12.4); Platelet Count 269 X10*3/uL (160-400); Red Blood Count 2.86 X10*6/uL (4.60-5.80); Red Cell Distribution Width 16.6 % (11.0-16.0); White Blood Count 12.4 X10*3/uL (4.8-10.8)
[2022-05-21 06:32] LABS: Anion Gap 14 (12-20); Blood Urea Nitrogen 14 mg/dL (9-16); Calcium 7.8 mg/dL (8.4-10.2); Carbon Dioxide 24 mmol/L (22-29); Chloride 103 mmol/L (96-108); Creatinine Clr Calc Pharmacy 56.1; Estimated Glomerular Filt Rate 42; Glucose Random 389 mg/dL (60-115); Potassium 4.1 mmol/L (3.3-5.1); Sodium 137 mmol/L (135-145)
[2022-05-21] MEDS: Insulin Regular, Human 100 UNIT/ML 3 ML VIAL IVPUSH (06:57)
--- NOTE | 2022-05-21 07:05 | HE.PHANOTE ---
RE SHANTANU CONTINUE CURRENT DOSE. NEXT TROUGH DUE 05/21 @1900 MARCELLA
[2022-05-21 07:10] LABS: Glucose, Whole Blood 389 mg/dL (60-115)
[2022-05-21 07:44] LABS: Glucose, Whole Blood 373 mg/dL (60-115)
[2022-05-21] MEDS: Atorvastatin Calcium 10 MG TABLET PO (07:57)
[2022-05-21] MEDS: methADONE HCl 20 MG/2 ML ORAL.CONC 55 MG PO (07:57)
[2022-05-21] MEDS: Insulin Lispro 100 UNIT/ML 3 ML VIAL SUBCUT ×4 (07:57→19:40)
[2022-05-21] MEDS: Insulin Glargine,Hum.rec.anlog 100 UNIT/ML 10 ML VIAL 20 UNIT SUBCUT (07:57)
[2022-05-21] MEDS: Ferrous Sulfate 324 MG TABLET.DR PO ×2 (07:58→16:59)
[2022-05-21] MEDS: carvediloL 12.5 MG TABLET 25 MG PO ×2 (07:58→19:40)
[2022-05-21] MEDS: Tamsulosin HCL 0.4 MG CAPSULE PO (07:58)
[2022-05-21 08:00] VITALS: BP 159/68; PULSE 78; RESP 16; TEMP 37.1; O2SAT 98
--- NOTE | 2022-05-21 10:14 | HO.VASCPN ---
Subjective Subjective Date of Service: 05/21/22 Patient reports: no new complaints and feels better Interval history: Patient seen examined. No significant events overnight. Appears to be in much better spirits today. He is postop day 1 status post transmetatarsal amputation. He now presents for follow-up. Physical Exam Vital Signs: Vital Signs: Last Vital Signs Temp 98.8 F 05/21/22 08:00 Pulse 78 05/21/22 08:00 Resp 16 05/21/22 08:00 BP 159/68 H 05/21/22 08:00 Pulse Ox 98 05/21/22 08:00 O2 Del Method 05/21/22 08:00 O2 Flow Rate 5 05/20/22 15:25 BMI result Body Mass Index 36.0 Const: General: cooperative, healthy appearing and no acute distress Orientation/consciousness: oriented to person, oriented to place and oriented to time HEENT: Head: Yes normal to inspection Neck: Carotids: no bruits Chest: Chest palpation & inspection: normal inspection of the chest Resp: Effort & Inspection: normal respiratory effort and able to speak in complete sentences Auscultation: clear to auscultation bilaterally Cardio: Rate: regular rate Heart sounds: S1 normal heart sound present and S2 normal heart sound present GI: Inspection: Yes normal to inspection Skin: General skin exam: no rashes or lesions noted Wounds: amputation site (Left foot dressing clean dry intact) Neuro: General: oriented to person, oriented to place, oriented to time and CN's II-XI intact bilaterally Extrem: General: Yes normal to inspection, Yes full ROM and Yes no clubbing, cyanosis or edema Psych: Appearance: grossly normal and well kempt Speech and movement: Normal speech and movement present Affect: normal affect Progress Note: A&P Assessment and plan (1) Diabetic infection of left foot: Status: Acute Assessment and Plan: In short patient is doing well status post transmetatarsal amputation. Will plan for dressing change on Tuesday. We did discuss the importance of diabetes control. In addition once the foot is healed we discussed the potential for a shoe insert as well. Once again will plan for dressing change on Tuesday. If stable at that point anticipate discharge soon thereafter. Thank you for allowing us to assist in his care. If there are any questions or concerns please do not hesitate to contact us. Time Spent With Patient Time: Total time spent is greater than 50% in coordination of care (as documented) at patient's floor/unit and/or counseling patient: Procedures Date of Service Date of Service: 05/21/22 Quality Stroke Does the patient have a stroke diagnosis?: No VTE Prior VTE?: No VTE Risk Level:: Medical - moderate - high VTE Device Contraindication: Treatment Not Indicated VTE Drug Contraindication: N/A - Med Ordered
[2022-05-21 11:15] VITALS: BP 160/66; PULSE 83; RESP 17; TEMP 36.8; O2SAT 99
[2022-05-21 11:24] LABS: Glucose, Whole Blood 366 mg/dL (60-115)
[2022-05-21] MEDS: Aspirin 81 MG TAB.CHEW PO (11:52)
[2022-05-21] MEDS: Clopidogrel Bisulfate 75 MG TABLET PO (11:52)
--- NOTE | 2022-05-21 12:14 | PC.NURSE ---
0705 pt POC glucose was 389, overnight RN had just administered 5 units of IV regular insulin at 0657. DR. Pace made aware. Repeat POC glucose at [address] Pace made aware, SSI adjusted and 12 units humalog given and 20 units lantus given. 1117 poc glucose is 366. Dr[address] Pace made aware, telephone order to given 14 units of humalog. 14 units humalog given. Will continue to monitor POC glucose.
--- NOTE | 2022-05-21 13:10 | HO.POSTANES ---
Post Anesthesia Evaluation Post Anesthesia Evaluation Vital Signs: Vital Signs Temp Pulse Resp BP Pulse Ox O2 Del Method 05/21/22 11:15 98.2 F 83 17 160/66 H 99 Room Air 05/21/22 08:00 98.8 F 78 16 159/68 H 98 Room Air 05/21/22 03:28 99.7 F 05/21/22 03:14 101.0 F H 92 17 156/74 H 97 Room Air Anesthesia: General Mental Status: Awake Pain Control: Satisfactory Nausea/Vomiting: None Hydration: Adequate Anesthesia-Related Issues: No Anes. Related Issues
--- NOTE | 2022-05-21 14:42 | HO.PM.IMPN ---
Subjective Subjective Date of Service: 05/21/22 Interval History: Patient awake alert this morning offers no acute complaints early a.m. had an episode of fever up to 101, denies associated symptoms of cough, shortness of breath no urinary symptoms no abdominal pain, no diarrhea, denies pain left foot, son at bedside wants to know what food he can bring from home. 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 Review of Systems: Yes all other systems are reviewed and are negative Physical Exam Vital Signs: Vital Signs: Last Vital Signs Temp 98.2 F 05/21/22 11:15 Pulse 83 05/21/22 11:15 Resp 17 05/21/22 11:15 BP 160/66 H 05/21/22 11:15 Pulse Ox 99 05/21/22 11:15 O2 Del Method 05/21/22 11:15 O2 Flow Rate 5 05/20/22 15:25 BMI result Body Mass Index 36.0 Const: Other: Gen: in no acute d istress HEENT: scl era anicteric Neck : supple Lungs: cl ear to auscultatio n bilaterally Hear t: regular rate an d rhythm, no murmu rs Abd: soft, non- tender, non-disten ded Ext: no edema, L foot dressing i n place Skin: warm /well-perfused Kobi ro: alert and orie nted x3, no focal findings Psych: ap propriate affect Objective Data Active Medications Acetaminophen (Acetaminophen 325 Mg Tablet) 650 mg PO Q6H PRN PRN Reason: Pain, Mild (Pain Scale 1-3) Last Admin: 05/21/22 03:30 Dose: 650 mg Documented By: BASIAQC Aspirin (Aspirin 81 Mg Tab.Chew) 81 mg PO DAILY [facility] Last Admin: 05/21/22 11:52 Dose: 81 mg Documented By: LEFTY Atorvastatin Calcium (Atorvastatin Calcium 10 Mg Tablet) 10 mg PO DAILY [facility] Last Admin: 05/21/22 07:57 Dose: 10 mg Documented By: LEFTY Carvedilol (Carvedilol 12.5 Mg Tablet) 25 mg PO BID [facility]; Protocol Last Admin: 05/21/22 07:58 Dose: 25 mg Documented By: LEFTY Clopidogrel Bisulfate (Clopidogrel Bisulfate 75 Mg Tablet) 75 mg PO DAILY [facility] Last Admin: 05/21/22 11:52 Dose: 75 mg Documented By: LEFTY Dextrose (Dextrose 50 % 25 Gm/50 Ml Syringe) 25 gm IVPUSH Q15M PRN; Protocol PRN Reason: per Hypoglycemia Standing Ord. Last Admin: 05/13/22 04:12 Dose: 25 gm Documented By: EDY Docusate Sodium (Docusate Sodium 100 Mg Capsule) 100 mg PO DAILY PRN PRN Reason: Constipation Ferrous Sulfate (Ferrous Sulfate 324 Mg Tablet.) 324 mg PO DAILY [facility] Last Admin: 05/21/22 07:58 Dose: 324 mg Documented By: TAYLOREMA Glucose (Glucose Gel 15 Gm Gel..Gram.) 15 gm PO Q15M PRN; Protocol PRN Reason: per Hypoglycemia Standing Ord. Heparin Sodium (Porcine) (Heparin Sodium,Porcine 5,000 Unit/Ml Vial) 5,000 unit SUBCUT Q12H [facility] Last Admin: 05/21/22 05:42 Dose: 5,000 unit Documented By: JAYLAN Hydroxyzine HCl (Hydroxyzine Hcl 25 Mg Tablet) 25 mg PO TID PRN PRN Reason: itching Last Admin: 05/19/22 20:53 Dose: 25 mg Documented By: CANELO Insulin Glargine (Insulin Glargine,Hum.Rec.Anlog 100 Unit/Ml 10 Ml Vial) 20 unit SUBCUT DAILY [facility] Last Admin: 05/21/22 07:57 Dose: 20 unit Documented By: LEFTY Insulin Human Lispro (Insulin Lispro 100 Unit/Ml 3 Ml Vial) 0 unit SUBCUT QIDACHS [facility]; Protocol Last Admin: 05/21/22 11:51 Dose: 14 unit Documented By: LEFTY Comments: [address] ward Methadone HCl (Methadone Hcl 20 Mg/2 Ml Oral.Conc) 55 mg PO DAILY [facility] Last Admin: 05/21/22 07:57 Dose: 55 mg Documented By: LEFTY Morphine Sulfate (Morphine Sulfate 4 Mg/Ml Cartridge) 4 mg IVPUSH Q2H PRN; Protocol PRN Reason: Pain, Severe (Pain Scale 7-10) Last Admin: 05/21/22 02:04 Dose: 4 mg Documented By: JAYLAN Nifedipine (Nifedipine Er 30 Mg Tab.Er.24) 90 mg PO DAILY [facility]; Protocol Last Admin: 05/14/22 07:39 Dose: 90 mg Documented By: ANDRADE Olanzapine (Olanzapine 5 Mg Tablet) 5 mg PO ONCE PRN PRN Reason: anxiety/restlessness Last Admin: 05/18/22 00:10 Dose: 5 mg Documented By: KALE Olanzapine (Olanzapine 5 Mg Tablet) 5 mg PO ONCE PRN PRN Reason: anxiety/restlessness Last Admin: 05/19/22 20:53 Dose: 5 mg Documented By: CANELO Olanzapine (Olanzapine 5 Mg Tablet) 5 mg PO ONCE PRN PRN Reason: anxiety/restlessness Omeprazole (Omeprazole 20 Mg Capsule.Dr) 20 mg PO DAILY@0630 [facility] Last Admin: 05/21/22 05:42 Dose: 20 mg Documented By: JAYLAN Ondansetron HCl (Ondansetron Hcl 4 Mg/2 Ml Vial) 4 mg IVPUSH Q8H PRN PRN Reason: Nausea and Vomiting Last Admin: 05/18/22 16:33 Dose: 4 mg Documented By: SMILEY Oxycodone HCl (Oxycodone Hcl Immed Release 5 Mg Tablet) 5 mg PO Q6H PRN PRN Reason: Pain, Moderate (Pain Scale 4-6 Last Admin: 05/21/22 03:31 Dose: 5 mg Documented By: JAYLAN Pharmacy Consult (Consult Rx Perform Med Rec) 1 each MISCELLANE ONCE PRN PRN Reason: Consult order Pharmacy Consult (Consult Rx Vancomycin Dosing) 1 each MISCELLANE DAILY PRN PRN Reason: Consult order Sodium Chloride (0.9 % Sodium Chloride Flush 3 Ml Syringe) 3 ml IVFLUSH QSHIFT [facility] Last Admin: 05/21/22 07:14 Dose: Not Given Documented By: LEFTY Non-Admin Reason: IV Running Tamsulosin HCl (Tamsulosin Hcl 0.4 Mg Capsule) 0.4 mg PO DAILY [facility] Last Admin: 05/21/22 07:58 Dose: 0.4 mg Documented By: LEFTY Labs CBC & Chem 7: 05/21/22 05:28 05/21/22 05:28 Labs: Laboratory Results - last 24 hr 05/20/22 05/20/22 05/21/22 16:52 19:52 05:28 MCV MCH MCHC RDW Plt Count MPV Absolute Nucleated RBC Nucleated RBC % (auto) Anion Gap 14 Estim Creat Clear Calc 56.1 Estimated GFR 42 POC Glucose 201 H 177 H Random Glucose 389 H* Calcium 7.8 L 05/21/22 05/21/22 05/21/22 05:28 07:05 07:40 MCV 85.0 MCH 26.6 L MCHC 31.3 RDW 16.6 H Plt Count 269 MPV 10.9 Absolute Nucleated RBC 0.000 Nucleated RBC % (auto) 0.0 Anion Gap Estim Creat Clear Calc Estimated GFR POC Glucose 389 H* 373 H* Random Glucose Calcium 05/21/22 11:17 MCV MCH MCHC RDW Plt Count MPV Absolute Nucleated RBC Nucleated RBC % (auto) Anion Gap Estim Creat Clear Calc Estimated GFR POC Glucose 366 H* Random Glucose Calcium Microbiology Microbiology Results: Microbiology 05/17/22 03:55 Gram Stain - Final Foot - Left Routine Culture - Final Enterobacter aerogenes Enterococcus faecium Assessment and Plan (1) Osteomyelitis: Status: Acute Plan 56-year-old male with past medical history of diabetes presents to the hospital with worsening diabetic foot wound. recently discharged with daptomycin Diabetic foot wound/osteomyelitis s/p TMA left foot POD #1 Wound culture grew Enterobacter aerogenes and Enterococcus faecium resistant to penicillin and vancomycin, blood cultures x2 are negative Case discussed with ID since patient is status post surgery will discontinue antibiotics. Follow clinical course. Good pain control Fever with mild tachycardia and leukocytosis not related to sepsis likely due to surgery/affective anaesthesia No recurrent fevers this morning follow CBC patient nontoxic appearing antibiotic discontinued as above Transient episode of agitation with underlying history of depression No recurrent episode in last 24 hours,Question etiology, Psychiatry input pending. Acute on chronic Anemia no acute GI bleed, likely due to chronic inflammation Hematocrit dropped to 24.3 but not far from baseline, hold blood transfusion, status post 5 units of packed RBC, normal iron studies DM with hyperglycemia Noted to have elevated blood sugars today, son adjusted insulin sliding scale strongly recommend to follow ADA diet recommended family not to bring food region carbohydrate , will increase dose of Lantus from 20-25 CKD3. Stable Creatinine fluctuating, follow BMP, push by mouth fluids peripheral vascular disease continue statin hypertension. Blood pressure remains elevated, on Coreg 25 b.i.d., will resume nifedipine 90 mg,cont to hold lisinopril for elevated creat. Substance abuse continue methadone DVT prophylaxis: Heparin subQ Requires ongoing inpatient hospitalization for management of diabetic foot wound s/p transmetatarsal amputation need close follow up with vascular surgery for wound care. Quality Stroke Does the patient have a stroke diagnosis?: No VTE Prior VTE?: No VTE Risk Level:: Medical - moderate - high VTE Device Contraindication: Treatment Not Indicated VTE Drug Contraindication: N/A - Med Ordered
[2022-05-21 14:59] VITALS: BP 147/68; PULSE 87; RESP 18; TEMP 37; O2SAT 98
--- NOTE | 2022-05-21 15:00 | MHC.CM.PN ---
Male 56 TMA yesterday. No DC today. PO he developed a temp and H/H decreased. DP Home with [facility] and possible LT IV ABX.Family will transport home.
[2022-05-21 15:23] LABS: Glucose, Whole Blood 334 mg/dL (60-115)
[2022-05-21] MEDS: 0.9 % Sodium Chloride Flush 3 ML SYRINGE IVFLUSH ×2 (16:59→19:42)
[2022-05-21] MEDS: NIFEdipine ER 90 MG TAB.ER.24 PO (16:59)
[2022-05-21 18:55] VITALS: BP 182/77; PULSE 91; RESP 18; TEMP 37.2; O2SAT 97
[2022-05-21 19:26] LABS: Glucose, Whole Blood 354 mg/dL (60-115)
[2022-05-21 20:01] LABS: Vancomycin Trough 11.2 mcg/mL (10.0-20.0)
[2022-05-21] MEDS: hydrOXYzine HCL 25 MG TABLET PO (22:10)
[2022-05-22] VITALS (12 sets, daily range): BP systolic 90–152; BP diastolic 51–81; PULSE 78–86; RESP 16–20; TEMP 36.4–38.3; O2SAT 93–97
[2022-05-22 05:53] LABS: Hematocrit 21.8 % (42.0-52.0); Mean Corpuscular HGB Conc 32.1 g/dl (31.0-36.0); Mean Corpuscular Hemoglobin 26.9 pg (27.0-33.0); Mean Corpuscular Volume 83.8 fL (80.0-98.0); Mean Platelet Volume 10.9 fL (9.4-12.4); Platelet Count 280 X10*3/uL (160-400); Red Cell Distribution Width 16.6 % (11.0-16.0); White Blood Count 15.2 X10*3/uL (4.8-10.8)
[2022-05-22 06:11] LABS: Anion Gap 16 (12-20); Blood Urea Nitrogen 16 mg/dL (9-16); Calcium 7.6 mg/dL (8.4-10.2); Carbon Dioxide 21 mmol/L (22-29); Chloride 101 mmol/L (96-108); Creatinine Clr Calc Pharmacy 60.4; Estimated Glomerular Filt Rate 46; Glucose Random 290 mg/dL (60-115); Potassium 3.8 mmol/L (3.3-5.1); Sodium 134 mmol/L (135-145)
--- NOTE | 2022-05-22 06:17 | PC.NURSE ---
pt critical Hbg result at 06:10 7.0, notified to dr. Beltrán. no action, at this time.
[2022-05-22] MEDS: Heparin Sodium,Porcine 5,000 UNIT/ML VIAL 5000 UNIT SUBCUT ×2 (06:20→20:20)
[2022-05-22] MEDS: oxyCODONE HCl Immed Release 5 MG TABLET PO (06:20)
[2022-05-22] MEDS: Omeprazole 20 MG CAPSULE.DR PO (06:20)
[2022-05-22 08:02] LABS: Glucose, Whole Blood 283 mg/dL (60-115)
[2022-05-22] MEDS: Clopidogrel Bisulfate 75 MG TABLET PO (08:19)
[2022-05-22] MEDS: Atorvastatin Calcium 10 MG TABLET PO (08:19)
[2022-05-22] MEDS: Tamsulosin HCL 0.4 MG CAPSULE PO (08:19)
[2022-05-22] MEDS: NIFEdipine ER 90 MG TAB.ER.24 PO (08:19)
[2022-05-22] MEDS: carvediloL 12.5 MG TABLET 25 MG PO ×2 (08:19→20:20)
[2022-05-22] MEDS: Aspirin 81 MG TAB.CHEW PO (08:19)
[2022-05-22] MEDS: Insulin Lispro 100 UNIT/ML 3 ML VIAL SUBCUT ×4 (08:20→20:37)
[2022-05-22] MEDS: Insulin Glargine,Hum.rec.anlog 100 UNIT/ML 10 ML VIAL 25 UNIT SUBCUT (08:21)
[2022-05-22] MEDS: methADONE HCl 20 MG/2 ML ORAL.CONC 55 MG PO (08:22)
--- NOTE | 2022-05-22 08:50 | MHC.CM.PN ---
PER MD ROUNDS TUESDAY, PT WILL DC ON PO MEDS. DCP HOME WITH [facility] FAMILY TO TRANSPORT
[2022-05-22] MEDS: Ferrous Sulfate 324 MG TABLET.DR PO ×2 (08:53→16:50)
[2022-05-22] MEDS: 0.9 % Sodium Chloride Flush 3 ML SYRINGE IVFLUSH ×2 (08:53→20:27)
[2022-05-22] MEDS: Morphine Sulfate 4 MG/ML CARTRIDGE IVPUSH (09:53)
--- NOTE | 2022-05-22 11:08 | P.PNIM_ITS ---
Subjective Subjective Date of Service: 05/22/22 Interval History: Noted to have fevers up to 101 last night, this morning temp 99.7 degrees as per patient he had some chills with fever overnight, complaining of left foot pain, denies nausea vomiting, no abdominal pain, denies headache dizziness no urinary symptoms, denies cough, no shortness of breath. 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 Skin no rash, no itching Review of Systems: Yes all other systems are reviewed and are negative Physical Exam Vital Signs: Vital Signs: Last Vital Signs Temp 98.5 F 05/22/22 08:58 Pulse 82 05/22/22 08:58 Resp 16 05/22/22 08:58 BP 125/62 05/22/22 08:58 Pulse Ox 93 05/22/22 08:00 O2 Del Method 05/22/22 08:00 O2 Flow Rate 5 05/20/22 15:25 BMI result Body Mass Index 36.0 Const: Other: Gen: in no acute distress Neck: supple Lungs: clear to auscultation bilaterally Heart: regular rate and rhythm, no murmurs Abd: soft, non-tender, non-distended Ext: no edema, L foot dressing in place Skin: warm/well-perfused Neuro: alert and oriented x3, no focal findings Psych: appropriate affect Objective Data Active Medications Acetaminophen (Acetaminophen 325 Mg Tablet) 650 mg PO Q6H PRN PRN Reason: Pain, Mild (Pain Scale 1-3) Last Admin: 05/21/22 03:30 Dose: 650 mg Documented By: BASIAQC Aspirin (Aspirin 81 Mg Tab.Chew) 81 mg PO DAILY [facility] Last Admin: 05/22/22 08:19 Dose: 81 mg Documented By: ARMANDO Atorvastatin Calcium (Atorvastatin Calcium 10 Mg Tablet) 10 mg PO DAILY [facility] Last Admin: 05/22/22 08:19 Dose: 10 mg Documented By: ARMANDO Carvedilol (Carvedilol 12.5 Mg Tablet) 25 mg PO BID [facility]; Protocol Last Admin: 05/22/22 08:19 Dose: 25 mg Documented By: ARMANDO Clopidogrel Bisulfate (Clopidogrel Bisulfate 75 Mg Tablet) 75 mg PO DAILY [facility] Last Admin: 05/22/22 08:19 Dose: 75 mg Documented By: ARMANDO Dextrose (Dextrose 50 % 25 Gm/50 Ml Syringe) 25 gm IVPUSH Q15M PRN; Protocol PRN Reason: per Hypoglycemia Standing Ord. Last Admin: 05/13/22 04:12 Dose: 25 gm Documented By: EDY Docusate Sodium (Docusate Sodium 100 Mg Capsule) 100 mg PO DAILY PRN PRN Reason: Constipation Ferrous Sulfate (Ferrous Sulfate 324 Mg Tablet.Dr) 324 mg PO BIDWM [facility] Last Admin: 05/22/22 08:53 Dose: 324 mg Documented By: ARMANDO Glucose (Glucose Gel 15 Gm Gel..Gram.) 15 gm PO Q15M PRN; Protocol PRN Reason: per Hypoglycemia Standing Ord. Heparin Sodium (Porcine) (Heparin Sodium,Porcine 5,000 Unit/Ml Vial) 5,000 unit SUBCUT Q12H [facility] Last Admin: 05/22/22 06:20 Dose: 5,000 unit Documented By: KALE Hydroxyzine HCl (Hydroxyzine Hcl 25 Mg Tablet) 25 mg PO TID PRN PRN Reason: itching Last Admin: 05/21/22 22:10 Dose: 25 mg Documented By: KALE Insulin Glargine (Insulin Glargine,Hum.Rec.Anlog 100 Unit/Ml 10 Ml Vial) 25 unit SUBCUT DAILY [facility] Last Admin: 05/22/22 08:21 Dose: 25 unit Documented By: ARMANDO Insulin Human Lispro (Insulin Lispro 100 Unit/Ml 3 Ml Vial) 0 unit SUBCUT QIDACHS [facility]; Protocol Last Admin: 05/22/22 08:20 Dose: 8 unit Documented By: ARMANDO Methadone HCl (Methadone Hcl 20 Mg/2 Ml Oral.Conc) 55 mg PO DAILY [facility] Last Admin: 05/22/22 08:22 Dose: 55 mg Documented By: ARMANDO Morphine Sulfate (Morphine Sulfate 4 Mg/Ml Cartridge) 4 mg IVPUSH Q2H PRN; Protocol PRN Reason: Pain, Severe (Pain Scale 7-10) Last Admin: 05/22/22 09:53 Dose: 4 mg Documented By: ARMANDO Nifedipine (Nifedipine Er 30 Mg Tab.Er.24) 90 mg PO DAILY [facility]; Protocol Last Admin: 05/14/22 07:39 Dose: 90 mg Documented By: ANDRADE Nifedipine (Nifedipine Er 90 Mg Tab.Er.24) 90 mg PO DAILY [facility]; Protocol Last Admin: 05/22/22 08:19 Dose: 90 mg Documented By: ARMANDO Olanzapine (Olanzapine 5 Mg Tablet) 5 mg PO ONCE PRN PRN Reason: anxiety/restlessness Last Admin: 05/18/22 00:10 Dose: 5 mg Documented By: KALE Olanzapine (Olanzapine 5 Mg Tablet) 5 mg PO ONCE PRN PRN Reason: anxiety/restlessness Last Admin: 05/19/22 20:53 Dose: 5 mg Documented By: CANELO Olanzapine (Olanzapine 5 Mg Tablet) 5 mg PO ONCE PRN PRN Reason: anxiety/restlessness Omeprazole (Omeprazole 20 Mg Capsule.Dr) 20 mg PO DAILY@0630 [facility] Last Admin: 05/22/22 06:20 Dose: 20 mg Documented By: KALE Ondansetron HCl (Ondansetron Hcl 4 Mg/2 Ml Vial) 4 mg IVPUSH Q8H PRN PRN Reason: Nausea and Vomiting Last Admin: 05/18/22 16:33 Dose: 4 mg Documented By: SMILEY Oxycodone HCl (Oxycodone Hcl Immed Release 5 Mg Tablet) 5 mg PO Q6H PRN PRN Reason: Pain, Moderate (Pain Scale 4-6 Last Admin: 05/22/22 06:20 Dose: 5 mg Documented By: KALE Pharmacy Consult (Consult Rx Perform Med Rec) 1 each MISCELLANE ONCE PRN PRN Reason: Consult order Pharmacy Consult (Consult Rx Vancomycin Dosing) 1 each MISCELLANE DAILY PRN PRN Reason: Consult order Sodium Chloride (0.9 % Sodium Chloride Flush 3 Ml Syringe) 3 ml IVFLUSH QSHIFT [facility] Last Admin: 05/22/22 08:53 Dose: 3 ml Documented By: ARMANDO Tamsulosin HCl (Tamsulosin Hcl 0.4 Mg Capsule) 0.4 mg PO DAILY [facility] Last Admin: 05/22/22 08:19 Dose: 0.4 mg Documented By: ARMANDO Labs CBC & Chem 7: 05/22/22 05:11 05/22/22 05:11 Labs: Laboratory Results - last 24 hr 05/20/22 05/21/22 05/21/22 05:49 11:17 15:19 MCV MCH MCHC RDW Plt Count MPV Absolute Nucleated RBC Nucleated RBC % (auto) Anion Gap Estim Creat Clear Calc Estimated GFR POC Glucose 366 H* 334 H Random Glucose Calcium Vancomycin Trough Blood Type AB Positive Antibody Screen NEGATIVE Crossmatch See Detail 05/21/22 05/21/22 05/22/22 19:06 19:20 05:11 MCV MCH MCHC RDW Plt Count MPV Absolute Nucleated RBC Nucleated RBC % (auto) Anion Gap 16 Estim Creat Clear Calc 60.4 Estimated GFR 46 POC Glucose 354 H* Random Glucose 290 H Calcium 7.6 L Vancomycin Trough 11.2 Blood Type Antibody Screen Crossmatch 05/22/22 05/22/22 05:11 07:16 MCV 83.8 MCH 26.9 L MCHC 32.1 RDW 16.6 H Plt Count 280 MPV 10.9 Absolute Nucleated RBC 0.000 Nucleated RBC % (auto) 0.0 Anion Gap Estim Creat Clear Calc Estimated GFR POC Glucose 283 H Random Glucose Calcium Vancomycin Trough Blood Type Antibody Screen Crossmatch Microbiology Microbiology Results: Microbiology 05/17/22 03:55 Gram Stain - Final Foot - Left Routine Culture - Final Enterobacter aerogenes Enterococcus faecium Assessment and Plan (1) Osteomyelitis: Status: Acute Plan 56-year-old male with past medical history of diabetes presents to the hospital with worsening diabetic foot wound. recently discharged with daptomycin Diabetic foot wound/osteomyelitis s/p TMA left foot POD #2 Wound culture grew Enterobacter aerogenes and Enterococcus faecium resistant to penicillin and vancomycin, blood cultures x2 are negative Dressing change as per Dr. Brown, continue pain medications good pain control Recurrent Fever with leukocytosis likely reactive due to surgery/superficial L foot cultures grew Enterobacter and VRE s/p TMA SIRS with no source of infection follow clinical course Case discussed with ID she recommend linezolid and Levaquin, id recommend to reimage foot MRI or CT will discuss with vascular surgery Patient nontoxic appearing Has a Kim catheter placed on 04/19, will discuss with IR to remove catheter on Tuesday Follow clinical course if noted to have recurrent fevers will obtain blood cultures, follow CBC Transient episode of agitation on 05/19 and underlying history of depression/suicidal ideation continue sitter No recurrent episode of agitation in last 48 hours, Care team consult when medically cleared Acute on chronic Anemia no acute GI bleed, likely due to chronic inflammation/recent surgery,infection Hematocrit dropped to 21.8 , status post 5 units of packed RBC, normal iron studies,will transfuse one more unit of prbc today follow cbc DM with hyperglycemia Noted to have elevated blood sugars last 48hrs, adjusted insulin sliding scale strongly recommend to follow ADA diet recommended family not to bring food region carbohydrate , increased dose of Lantus from 20-25 starting 05/22 CKD3. Stable Creatinine fluctuating, but stable 1.57, follow BMP, push by mouth fluids peripheral vascular disease continue statin hypertension. Blood pressure improved continue Coreg 25 b.i.d., and nifedipine 90 mg,cont to hold lisinopril for elevated creat. Substance abuse continue methadone DVT prophylaxis: Heparin subQ Requires ongoing inpatient hospitalization for management of diabetic foot wound s/p transmetatarsal amputation, recurrent fevers, need close follow up with vascular surgery for wound care. Quality Stroke Does the patient have a stroke diagnosis?: No VTE Prior VTE?: No VTE Risk Level:: Medical - moderate - high VTE Device Contraindication: Treatment Not Indicated VTE Drug Contraindication: N/A - Med Ordered
[2022-05-22 11:31] LABS: Glucose, Whole Blood 335 mg/dL (60-115)
[2022-05-22] MEDS: Acetaminophen 325 MG TABLET 650 MG PO (12:39)
--- NOTE | 2022-05-22 14:17 | PC.NURSE ---
Pt has a Kim port on the left upper chest is occluded dr Pace was made aware.
--- NOTE | 2022-05-22 14:37 | PM.IDPN ---
Subjective Subjective Date of Service: 05/22/22 Critical Care Time (minutes): 15 Comment: he has temperature to 101 ,not on antibiotics,superficail culture skin showed VRE and enterobacter aerogenes Objective Data Labs CBC & Chem 7: 05/22/22 05:11 05/22/22 05:11 Labs: Laboratory Results - last 24 hr 05/14/22 05/20/22 05/21/22 11:07 05:49 15:19 WBC RBC Hgb Hct MCV MCH MCHC RDW Plt Count MPV Absolute Nucleated RBC Nucleated RBC % (auto) Sodium Potassium Chloride Carbon Dioxide Anion Gap BUN Creatinine Estim Creat Clear Calc Estimated GFR POC Glucose 334 H Random Glucose Calcium Vancomycin Trough Blood Type AB Positive Antibody Screen NEGATIVE Crossmatch See Detail See Detail 05/21/22 05/21/22 05/22/22 19:06 19:20 05:11 WBC RBC Hgb Hct MCV MCH MCHC RDW Plt Count MPV Absolute Nucleated RBC Nucleated RBC % (auto) Sodium 134 L Potassium 3.8 Chloride 101 Carbon Dioxide 21 L Anion Gap 16 BUN 16 Creatinine 1.57 H Estim Creat Clear Calc 60.4 Estimated GFR 46 POC Glucose 354 H* Random Glucose 290 H Calcium 7.6 L Vancomycin Trough 11.2 Blood Type Antibody Screen Crossmatch 05/22/22 05/22/22 05/22/22 05:11 07:16 11:26 WBC 15.2 H RBC 2.60 L Hgb 7.0 L* Hct 21.8 L MCV 83.8 MCH 26.9 L MCHC 32.1 RDW 16.6 H Plt Count 280 MPV 10.9 Absolute Nucleated RBC 0.000 Nucleated RBC % (auto) 0.0 Sodium Potassium Chloride Carbon Dioxide Anion Gap BUN Creatinine Estim Creat Clear Calc Estimated GFR POC Glucose 283 H 335 H Random Glucose Calcium Vancomycin Trough Blood Type Antibody Screen Crossmatch Microbiology Microbiology Results: Microbiology 05/17/22 03:55 Foot - Left Gram Stain - Final 05/17/22 03:55 Foot - Left Routine Culture - Final Enterobacter aerogenes Enterococcus faecium 05/12/22 18:24 Blood - Venous Blood Culture - Final No growth after 5 days. 05/12/22 18:24 Blood - Venous Blood Culture - Final No growth after 5 days. 05/14/22 14:42 Urine clean catch - Urine acosta top Urine Culture - Final Physical Exam Vital Signs: Vital Signs: Last Vital Signs Temp 98.5 F 05/22/22 13:00 Pulse 78 05/22/22 13:00 Resp 18 05/22/22 13:00 BP 116/58 L 05/22/22 13:00 Pulse Ox 94 05/22/22 11:33 O2 Del Method 05/22/22 11:33 O2 Flow Rate 5 05/20/22 15:25 BMI result Body Mass Index 36.0 Const: General: cooperative Resp: Effort & Inspection: normal respiratory effort Cardio: Rate: regular rate Rhythm: regular rhythm GI: Palpation (GI): Soft to palpation and nontender Extrem: Other: no change,wrapped Assessment and Plan Assessment and plan (1) Fever of unknown origin: Problem details: He has superficial area enterobacter and enterococcus Status: Acute Assessment and Plan: Would give linezolid and levaquin for area foot Consider reimage foot MRI or CT Time Spent With Patient Time: Total time spent is greater than 50% in coordination of care (as documented) at patient's floor/unit and/or counseling patient:
[2022-05-22] MEDS: levoFLOXacin 750 MG TABLET PO (15:31)
[2022-05-22] MEDS: Linezolid 600 MG TABLET PO (15:31)
[2022-05-22 16:40] LABS: Glucose, Whole Blood 282 mg/dL (60-115)
[2022-05-22 20:30] LABS: Glucose, Whole Blood 382 mg/dL (60-115)
[2022-05-22 22:04] LABS: Glucose, Whole Blood 328 mg/dL (60-115)
[2022-05-22] MEDS: Insulin Regular, Human 100 UNIT/ML 3 ML VIAL IVPUSH (22:20)
--- NOTE | 2022-05-22 22:32 | PC.NURSE ---
pt poc 382 at 20:30, dr. Beltrán notified, ordered iv push insulin 5 units. RAPHAEL Rodriguez given sliding scale of 12 units lispro at 21:00. sugar rechecked at 22:00, poc 328 and [employer] Brit given reg. insulin 5 units at 22:20.
[2022-05-23] MEDS: Acetaminophen 325 MG TABLET 650 MG PO (02:11)
[2022-05-23] MEDS: Linezolid 600 MG TABLET PO ×2 (02:49→16:37)
[2022-05-23 03:06] VITALS: BP 109/44; PULSE 77; RESP 20; TEMP 37.2; O2SAT 96
[2022-05-23] MEDS: Heparin Sodium,Porcine 5,000 UNIT/ML VIAL 5000 UNIT SUBCUT ×2 (06:02→20:17)
[2022-05-23] MEDS: Omeprazole 20 MG CAPSULE.DR PO (06:02)
[2022-05-23 06:38] LABS: Hematocrit 23.6 % (42.0-52.0); Hemoglobin 7.7 g/dl (14.0-18.0); Mean Corpuscular HGB Conc 32.6 g/dl (31.0-36.0); Mean Corpuscular Hemoglobin 26.5 pg (27.0-33.0); Mean Corpuscular Volume 81.1 fL (80.0-98.0); Mean Platelet Volume 10.3 fL (9.4-12.4); Platelet Count 285 X10*3/uL (160-400); Red Blood Count 2.91 X10*6/uL (4.60-5.80); Red Cell Distribution Width 16.5 % (11.0-16.0); White Blood Count 18.3 X10*3/uL (4.8-10.8)
[2022-05-23 07:10] LABS: Anion Gap 15 (12-20); Blood Urea Nitrogen 32 mg/dL (9-16); Calcium 7.9 mg/dL (8.4-10.2); Carbon Dioxide 22 mmol/L (22-29); Chloride 97 mmol/L (96-108); Creatinine Clr Calc Pharmacy 34.9; Estimated Glomerular Filt Rate 24; Glucose Random 345 mg/dL (60-115); Potassium 4.4 mmol/L (3.3-5.1); Sodium 130 mmol/L (135-145)
[2022-05-23 07:35] LABS: Glucose, Whole Blood 291 mg/dL (60-115)
[2022-05-23 08:00] VITALS: BP 103/61; PULSE 79; RESP 18; TEMP 36.6; O2SAT 98
[2022-05-23] MEDS: Insulin Lispro 100 UNIT/ML 3 ML VIAL SUBCUT ×4 (08:02→20:36)
[2022-05-23] MEDS: Insulin Glargine,Hum.rec.anlog 100 UNIT/ML 10 ML VIAL 25 UNIT SUBCUT (08:03)
[2022-05-23] MEDS: carvediloL 12.5 MG TABLET 25 MG PO ×2 (08:04→20:17)
[2022-05-23] MEDS: Aspirin 81 MG TAB.CHEW PO (08:04)
[2022-05-23] MEDS: Tamsulosin HCL 0.4 MG CAPSULE PO (08:04)
[2022-05-23] MEDS: Clopidogrel Bisulfate 75 MG TABLET PO (08:04)
[2022-05-23] MEDS: Ferrous Sulfate 324 MG TABLET.DR PO ×2 (08:05→16:38)
[2022-05-23] MEDS: methADONE HCl 20 MG/2 ML ORAL.CONC 55 MG PO (08:05)
[2022-05-23] MEDS: NIFEdipine ER 90 MG TAB.ER.24 PO (08:05)
[2022-05-23] MEDS: Atorvastatin Calcium 10 MG TABLET PO (08:05)
[2022-05-23] MEDS: 0.9 % Sodium Chloride Flush 3 ML SYRINGE IVFLUSH (08:13)
[2022-05-23] MEDS: Lactated Ringers 1,000 ML 125 ML IVCONT ×2 (09:46→19:06)
[2022-05-23 11:07] LABS: Glucose, Whole Blood 465 mg/dL (60-115)
[2022-05-23 11:10] VITALS: BP 105/58; PULSE 77; RESP 18; TEMP 36.7; O2SAT 94
--- NOTE | 2022-05-23 11:56 | HO.PM.IMPN ---
Subjective Subjective Date of Service: 05/23/22 Interval History: no fever since yesterday left foot pain controlled Review of Systems Review of Systems: Yes all other systems are reviewed and are negative Physical Exam Vital Signs: Vital Signs: Last Vital Signs Temp 98.1 F 05/23/22 11:10 Pulse 77 05/23/22 11:10 Resp 18 05/23/22 11:10 BP 105/58 L 05/23/22 11:10 Pulse Ox 94 05/23/22 11:10 O2 Del Method 05/23/22 11:10 O2 Flow Rate 5 05/20/22 15:25 BMI result Body Mass Index 36.0 Gen: in no acute distress Neck: supple Lungs: clear to auscultation bilaterally Heart: regular rate and rhythm, no murmurs Abd: soft, non-tender, non-distended Ext: no edema, L foot dressing in place Skin: warm/well-perfused Neuro: alert and oriented x3, no focal findings Psych: appropriate affect Objective Data Active Medications Acetaminophen (Acetaminophen 325 Mg Tablet) 650 mg PO Q6H PRN PRN Reason: Pain, Mild (Pain Scale 1-3) Last Admin: 05/23/22 02:11 Dose: 650 mg Documented By: KALE Aspirin (Aspirin 81 Mg Tab.Chew) 81 mg PO DAILY [facility] Last Admin: 05/23/22 08:04 Dose: 81 mg Documented By: ARMANDO Atorvastatin Calcium (Atorvastatin Calcium 10 Mg Tablet) 10 mg PO DAILY [facility] Last Admin: 05/23/22 08:05 Dose: 10 mg Documented By: ARMANDO Carvedilol (Carvedilol 12.5 Mg Tablet) 25 mg PO BID [facility]; Protocol Last Admin: 05/23/22 08:04 Dose: 25 mg Documented By: ARMANDO Clopidogrel Bisulfate (Clopidogrel Bisulfate 75 Mg Tablet) 75 mg PO DAILY [facility] Last Admin: 05/23/22 08:04 Dose: 75 mg Documented By: ARMANDO Dextrose (Dextrose 50 % 25 Gm/50 Ml Syringe) 25 gm IVPUSH Q15M PRN; Protocol PRN Reason: per Hypoglycemia Standing Ord. Last Admin: 05/13/22 04:12 Dose: 25 gm Documented By: EDY Docusate Sodium (Docusate Sodium 100 Mg Capsule) 100 mg PO DAILY PRN PRN Reason: Constipation Ferrous Sulfate (Ferrous Sulfate 324 Mg Tablet.Dr) 324 mg PO BIDWM [facility] Last Admin: 05/23/22 08:05 Dose: 324 mg Documented By: ARMANDO Glucose (Glucose Gel 15 Gm Gel..Gram.) 15 gm PO Q15M PRN; Protocol PRN Reason: per Hypoglycemia Standing Ord. Heparin Sodium (Porcine) (Heparin Sodium,Porcine 5,000 Unit/Ml Vial) 5,000 unit SUBCUT Q12H [facility] Last Admin: 05/23/22 06:02 Dose: 5,000 unit Documented By: KALE Hydroxyzine HCl (Hydroxyzine Hcl 25 Mg Tablet) 25 mg PO TID PRN PRN Reason: itching Last Admin: 05/21/22 22:10 Dose: 25 mg Documented By: KALE Lactated Ringer's (Lr) 1,000 mls @ 125 mls/hr IVCONT .Q8H [facility] Stop: 05/24/22 01:14 Last Admin: 05/23/22 09:46 Dose: 125 mls/hr Documented By: ARMANDO Insulin Glargine (Insulin Glargine,Hum.Rec.Anlog 100 Unit/Ml 10 Ml Vial) 30 unit SUBCUT DAILY [facility] Insulin Human Lispro (Insulin Lispro 100 Unit/Ml 3 Ml Vial) 0 unit SUBCUT QIDACHS [facility]; Protocol Last Admin: 05/23/22 11:53 Dose: 18 unit Documented By: ARMANDO Levofloxacin (Levofloxacin 750 Mg Tablet) 750 mg PO Q24H [facility] Last Admin: 05/22/22 15:31 Dose: 750 mg Documented By: ARMANDO Linezolid (Linezolid 600 Mg Tablet) 600 mg PO Q12H [facility] Last Admin: 05/23/22 02:49 Dose: 600 mg Documented By: KALE Methadone HCl (Methadone Hcl 20 Mg/2 Ml Oral.Conc) 55 mg PO DAILY [facility] Last Admin: 05/23/22 08:05 Dose: 55 mg Documented By: ARMANDO Morphine Sulfate (Morphine Sulfate 4 Mg/Ml Cartridge) 4 mg IVPUSH Q2H PRN; Protocol PRN Reason: Pain, Severe (Pain Scale 7-10) Last Admin: 05/22/22 09:53 Dose: 4 mg Documented By: ARMANDO Nifedipine (Nifedipine Er 30 Mg Tab.Er.24) 90 mg PO DAILY [facility]; Protocol Last Admin: 05/14/22 07:39 Dose: 90 mg Documented By: ANDRADE Nifedipine (Nifedipine Er 90 Mg Tab.Er.24) 90 mg PO DAILY [facility]; Protocol Last Admin: 05/23/22 08:05 Dose: 90 mg Documented By: ARMANDO Olanzapine (Olanzapine 5 Mg Tablet) 5 mg PO ONCE PRN PRN Reason: anxiety/restlessness Last Admin: 05/18/22 00:10 Dose: 5 mg Documented By: KALE Olanzapine (Olanzapine 5 Mg Tablet) 5 mg PO ONCE PRN PRN Reason: anxiety/restlessness Last Admin: 05/19/22 20:53 Dose: 5 mg Documented By: CANELO Olanzapine (Olanzapine 5 Mg Tablet) 5 mg PO ONCE PRN PRN Reason: anxiety/restlessness Omeprazole (Omeprazole 20 Mg Capsule.Dr) 20 mg PO DAILY@0630 [facility] Last Admin: 05/23/22 06:02 Dose: 20 mg Documented By: KALE Ondansetron HCl (Ondansetron Hcl 4 Mg/2 Ml Vial) 4 mg IVPUSH Q8H PRN PRN Reason: Nausea and Vomiting Last Admin: 05/18/22 16:33 Dose: 4 mg Documented By: SMILEY Oxycodone HCl (Oxycodone Hcl Immed Release 5 Mg Tablet) 5 mg PO Q6H PRN PRN Reason: Pain, Moderate (Pain Scale 4-6 Last Admin: 05/22/22 06:20 Dose: 5 mg Documented By: KALE Pharmacy Consult (Consult Rx Perform Med Rec) 1 each MISCELLANE ONCE PRN PRN Reason: Consult order Sodium Chloride (0.9 % Sodium Chloride Flush 3 Ml Syringe) 3 ml IVFLUSH QSHIFT [facility] Last Admin: 05/23/22 08:13 Dose: 3 ml Documented By: ARMANDO Tamsulosin HCl (Tamsulosin Hcl 0.4 Mg Capsule) 0.4 mg PO DAILY [facility] Last Admin: 05/23/22 08:04 Dose: 0.4 mg Documented By: ARMANDO Labs CBC & Chem 7: 05/23/22 06:12 05/23/22 06:12 Labs: Laboratory Results - last 24 hr 05/14/22 05/20/22 05/22/22 11:07 05:49 15:27 MCV MCH MCHC RDW Plt Count MPV Absolute Nucleated RBC Nucleated RBC % (auto) Anion Gap Estim Creat Clear Calc Estimated GFR POC Glucose 282 H Random Glucose Calcium Blood Type AB Positive Antibody Screen NEGATIVE Crossmatch See Detail See Detail 05/22/22 05/22/22 05/23/22 20:23 21:59 06:12 MCV 81.1 MCH 26.5 L MCHC 32.6 RDW 16.5 H Plt Count 285 MPV 10.3 Absolute Nucleated RBC 0.000 Nucleated RBC % (auto) 0.0 Anion Gap Estim Creat Clear Calc Estimated GFR POC Glucose 382 H* 328 H Random Glucose Calcium Blood Type Antibody Screen Crossmatch 05/23/22 05/23/22 05/23/22 06:12 07:29 11:03 MCV MCH MCHC RDW Plt Count MPV Absolute Nucleated RBC Nucleated RBC % (auto) Anion Gap 15 Estim Creat Clear Calc 34.9 Estimated GFR 24 POC Glucose 291 H 465 H* Random Glucose 345 H Calcium 7.9 L Blood Type Antibody Screen Crossmatch Assessment and Plan (1) Osteomyelitis: Status: Acute Plan hospital d#12 56yo M with DM2 admitted for worsening DM foot wound/osteomyelitis after recently being discharged on daptomycin # DM foot wound/osteomyelitis - s/p TMA L foot POD#3; wound Cx grew Enterobacter aerogenes and Enterococcus faecium resistant to penicillin and vancomycin; blood cultures x2 negative - d#2 levofloxacin + linezolid, discuss duration with ID - dressing change as per Vascular Surgery tomorrow - continue pain medications - Kim catheter placed on 04/19/22 to be removed tomorrow- discuss with ID # recurrent fever with leukocytosis - likely reactive to surgery - ABX as above - discuss re-imaging with Vascular Surgery tomorrow, repeat BCx if fever recurs # AMY/CKD3 - give 2L IV LR, check urine Na + Cr + micro, renal US, avoid nephrotoxins, lisinopril already on hold, recheck BMP in AM # transient agitation 05/19 # hx depression/ suicidal ideation - sitter, CARE Team consult when medically cleared # acute/chronic anemia - no GI bleeding; likely due to chronic inflamation/infection/surgery - s/p 3u pRBCs, monitor H+H # HTN - continue carvedilol + nifedipine # DM2 with hyperglycemia - increase basal/bolus insulin # PAD - continue statin, DAPT # OUD - methadone # VTE ppx: UFH # dispo: anticipate home with VNA next 2-3d In my clinical judgment, the patient requires continued hospitalization for the following reasons:postop Quality Stroke Does the patient have a stroke diagnosis?: No VTE Prior VTE?: No VTE Risk Level:: Medical - moderate - high VTE Device Contraindication: Treatment Not Indicated VTE Drug Contraindication: N/A - Med Ordered
[2022-05-23 15:34] VITALS: BP 110/45; PULSE 77; RESP 16; TEMP 36.8; O2SAT 98
[2022-05-23] MEDS: levoFLOXacin 750 MG TABLET PO (16:37)
[2022-05-23] MEDS: oxyCODONE HCl Immed Release 5 MG TABLET PO (16:38)
[2022-05-23 16:40] LABS: Appearance Urine Cloudy; Color Urine Yellow; Glucose Urine UA 100 mg/dL (Negative); Leukocyte Esterase Urine Negative (Negative); Nitrite Urine Negative (Negative); UMIC TRIGGER UA YES; Urine Blood Negative (Negative); Urine Ketones Trace mg/dL (Negative); Urine Protein 30 (1+) mg/dL (Neg-Trace)
[2022-05-23 16:49] LABS: Bacteria Urine None Seen (None Seen); Hyaline Casts Urine >20 /LPF (0-2); RBC Urine 0-2 /HPF (0-2); WBC Urine 0-5 /HPF (0-5)
[2022-05-23 16:53] LABS: Glucose, Whole Blood 281 mg/dL (60-115)
[2022-05-23 19:18] VITALS: BP 118/56; PULSE 78; RESP 18; TEMP 36.9; O2SAT 99
[2022-05-23 20:32] LABS: Glucose, Whole Blood 167 mg/dL (60-115)
[2022-05-23 21:03] LABS: Creatinine Urine 205.72 mg/dL
[2022-05-23 23:31] VITALS: BP 102/58; PULSE 77; RESP 18; TEMP 37.2; O2SAT 97
[2022-05-24] MEDS: oxyCODONE HCl Immed Release 5 MG TABLET PO (02:19)
[2022-05-24] MEDS: Linezolid 600 MG TABLET PO ×2 (03:03→14:45)
[2022-05-24 03:28] VITALS: BP 124/56; PULSE 78; RESP 18; TEMP 36.2; O2SAT 97
[2022-05-24 05:47] LABS: Hematocrit 23.3 % (42.0-52.0); Hemoglobin 7.4 g/dl (14.0-18.0); Mean Corpuscular HGB Conc 31.8 g/dl (31.0-36.0); Mean Corpuscular Hemoglobin 26.1 pg (27.0-33.0); Mean Platelet Volume 10.5 fL (9.4-12.4); Platelet Count 326 X10*3/uL (160-400); Red Blood Count 2.84 X10*6/uL (4.60-5.80); Red Cell Distribution Width 16.6 % (11.0-16.0); White Blood Count 13.7 X10*3/uL (4.8-10.8)
[2022-05-24] MEDS: Heparin Sodium,Porcine 5,000 UNIT/ML VIAL 5000 UNIT SUBCUT ×2 (06:00→20:51)
[2022-05-24] MEDS: Omeprazole 20 MG CAPSULE.DR PO (06:00)
[2022-05-24 06:01] LABS: Anion Gap 16 (12-20); Blood Urea Nitrogen 37 mg/dL (9-16); C Reactive Protein 22.62 mg/dL (< or = 0.50); Carbon Dioxide 21 mmol/L (22-29); Chloride 101 mmol/L (96-108); Creatinine Clr Calc Pharmacy 38.7; Estimated Glomerular Filt Rate 27; Glucose Random 119 mg/dL (60-115); Potassium 4.3 mmol/L (3.3-5.1); Sodium 134 mmol/L (135-145)
[2022-05-24 06:45] LABS: Erythrocyte Sedimentation Rate > 140 MM/HR (0-15)
[2022-05-24 07:22] VITALS: BP 121/56; PULSE 91; RESP 18; TEMP 36.5; O2SAT 96
[2022-05-24 07:30] LABS: EOS Counted 0 CELLS; EOS QC POS YES; EOS Stain Quality OK YES; WBC, Counted 0 CELLS
[2022-05-24 07:52] LABS: Glucose, Whole Blood 109 mg/dL (60-115)
[2022-05-24] MEDS: methADONE HCl 20 MG/2 ML ORAL.CONC 55 MG PO (08:56)
[2022-05-24] MEDS: Clopidogrel Bisulfate 75 MG TABLET PO (08:56)
[2022-05-24] MEDS: Atorvastatin Calcium 10 MG TABLET PO (08:56)
[2022-05-24] MEDS: Insulin Glargine,Hum.rec.anlog 100 UNIT/ML 10 ML VIAL 30 UNIT SUBCUT (08:56)
[2022-05-24] MEDS: NIFEdipine ER 90 MG TAB.ER.24 PO (08:56)
[2022-05-24] MEDS: Aspirin 81 MG TAB.CHEW PO (08:56)
[2022-05-24] MEDS: carvediloL 12.5 MG TABLET 25 MG PO ×2 (08:56→20:52)
[2022-05-24] MEDS: Ferrous Sulfate 324 MG TABLET.DR PO ×2 (08:57→16:48)
[2022-05-24] MEDS: Tamsulosin HCL 0.4 MG CAPSULE PO (08:57)
[2022-05-24] MEDS: 0.9 % Sodium Chloride Flush 3 ML SYRINGE IVFLUSH (08:57)
[2022-05-24] MEDS: Lactated Ringers 1,000 ML 125 ML IVCONT ×2 (09:00→16:53)
--- NOTE | 2022-05-24 10:01 | PM.UROCN ---
History of Present Illness Consult details Consult date: 05/24/22 Narrative: 56-year-old male with past medical history of diabetes and opioid use disorder, admitted through the ER on 05/12/2022l with complaints of left foot ulcer. He was admitted and treated with IV Abx. s/p Left transmetatarsal amputation on 05/21/2022. Patient denies dysuria or hematuria. urine c/s no growth. Canales placed 05/23/2022. Called for consult to evaluate for urinary retention, history significant for prostate cancer s/p RT and hormonal therapy, the patient is followed by Dr. Chung.? Review of Systems Review of Systems: 10 point ROS negative other than stated in HPI [facility] Past Medical History Medical History Chronic anemia CKD (chronic kidney disease) Diabetes Diabetic infection of left foot Fever of unknown origin Opioid use disorder Osteomyelitis PAD (peripheral artery disease) Family History Family history: reviewed and not pertinent Social History Social History Household Members: Family Housing: Apartment Do you presently have visiting nurse or other home services: No Patient Tobacco Use Status: Never used Tobacco service: No Current occupational status: disabled Meds Allergies Allergy/AdvReac Type Severity Reaction Status Date / Time No Known Allergies Allergy Verified 02/01/22 12:12 [No Known Allergies*] Active Medications: Current Medications Acetaminophen (Acetaminophen 325 Mg Tablet) 650 mg PO Q6H PRN PRN Reason: Pain, Mild (Pain Scale 1-3) Last Admin: 05/23/22 02:11 Dose: 650 mg Aspirin (Aspirin 81 Mg Tab.Chew) 81 mg PO DAILY [facility] Last Admin: 05/24/22 08:56 Dose: 81 mg Atorvastatin Calcium (Atorvastatin Calcium 10 Mg Tablet) 10 mg PO DAILY [facility] Last Admin: 05/24/22 08:56 Dose: 10 mg Carvedilol (Carvedilol 12.5 Mg Tablet) 25 mg PO BID [facility]; Protocol Last Admin: 05/24/22 08:56 Dose: 25 mg Clopidogrel Bisulfate (Clopidogrel Bisulfate 75 Mg Tablet) 75 mg PO DAILY [facility] Last Admin: 05/24/22 08:56 Dose: 75 mg Dextrose (Dextrose 50 % 25 Gm/50 Ml Syringe) 25 gm IVPUSH Q15M PRN; Protocol PRN Reason: per Hypoglycemia Standing Ord. Last Admin: 05/13/22 04:12 Dose: 25 gm Docusate Sodium (Docusate Sodium 100 Mg Capsule) 100 mg PO DAILY PRN PRN Reason: Constipation Ferrous Sulfate (Ferrous Sulfate 324 Mg Tablet.Dr) 324 mg PO BIDWM [facility] Last Admin: 05/24/22 08:57 Dose: 324 mg Glucose (Glucose Gel 15 Gm Gel..Gram.) 15 gm PO Q15M PRN; Protocol PRN Reason: per Hypoglycemia Standing Ord. Heparin Sodium (Porcine) (Heparin Sodium,Porcine 5,000 Unit/Ml Vial) 5,000 unit SUBCUT Q12H [facility] Last Admin: 05/24/22 06:00 Dose: 5,000 unit Hydroxyzine HCl (Hydroxyzine Hcl 25 Mg Tablet) 25 mg PO TID PRN PRN Reason: itching Last Admin: 05/21/22 22:10 Dose: 25 mg Lactated Ringer's (Lr) 1,000 mls @ 125 mls/hr IVCONT .Q8H [facility] Stop: 05/24/22 23:59 Last Admin: 05/24/22 09:00 Dose: 125 mls/hr Insulin Glargine (Insulin Glargine,Hum.Rec.Anlog 100 Unit/Ml 10 Ml Vial) 30 unit SUBCUT DAILY [facility] Last Admin: 05/24/22 08:56 Dose: 30 unit Insulin Human Lispro (Insulin Lispro 100 Unit/Ml 3 Ml Vial) 0 unit SUBCUT QIDACHS [facility]; Protocol Last Admin: 05/24/22 08:54 Dose: Not Given Levofloxacin (Levofloxacin 750 Mg Tablet) 750 mg PO Q24H [facility] Last Admin: 05/23/22 16:37 Dose: 750 mg Linezolid (Linezolid 600 Mg Tablet) 600 mg PO Q12H [facility] Last Admin: 05/24/22 03:03 Dose: 600 mg Methadone HCl (Methadone Hcl 20 Mg/2 Ml Oral.Conc) 55 mg PO DAILY [facility] Last Admin: 05/24/22 08:56 Dose: 55 mg Nifedipine (Nifedipine Er 30 Mg Tab.Er.24) 90 mg PO DAILY [facility]; Protocol Last Admin: 05/14/22 07:39 Dose: 90 mg Nifedipine (Nifedipine Er 90 Mg Tab.Er.24) 90 mg PO DAILY [facility]; Protocol Last Admin: 05/24/22 08:56 Dose: 90 mg Olanzapine (Olanzapine 5 Mg Tablet) 5 mg PO ONCE PRN PRN Reason: anxiety/restlessness Last Admin: 05/18/22 00:10 Dose: 5 mg Olanzapine (Olanzapine 5 Mg Tablet) 5 mg PO ONCE PRN PRN Reason: anxiety/restlessness Last Admin: 05/19/22 20:53 Dose: 5 mg Olanzapine (Olanzapine 5 Mg Tablet) 5 mg PO ONCE PRN PRN Reason: anxiety/restlessness Omeprazole (Omeprazole 20 Mg Capsule.Dr) 20 mg PO DAILY@0630 [facility] Last Admin: 05/24/22 06:00 Dose: 20 mg Ondansetron HCl (Ondansetron Hcl 4 Mg/2 Ml Vial) 4 mg IVPUSH Q8H PRN PRN Reason: Nausea and Vomiting Last Admin: 05/18/22 16:33 Dose: 4 mg Oxycodone HCl (Oxycodone Hcl Immed Release 5 Mg Tablet) 5 mg PO Q6H PRN PRN Reason: Pain, Moderate (Pain Scale 4-6 Last Admin: 05/24/22 02:19 Dose: 5 mg Pharmacy Consult (Consult Rx Perform Med Rec) 1 each MISCELLANE ONCE PRN PRN Reason: Consult order Sodium Chloride (0.9 % Sodium Chloride Flush 3 Ml Syringe) 3 ml IVFLUSH QSHIFT [facility] Last Admin: 05/24/22 08:57 Dose: 3 ml Tamsulosin HCl (Tamsulosin Hcl 0.4 Mg Capsule) 0.4 mg PO DAILY [facility] Last Admin: 05/24/22 08:57 Dose: 0.4 mg Home Medications Medication Instructions Recorded Confirmed Last Taken Type atorvastatin 10 mg tablet 1 tab PO DAILY 04/05/22 05/12/22 Unknown History insulin aspart U-100 100 unit/mL 0 sliding scale dose subcut QIDACHS 04/05/22 05/12/22 Unknown History (3 mL) subcutaneous pen (Novolog Flexpen U-100 Insulin aspart) insulin glargine 100 unit/mL (3 20 - 30 unit subcut DAILY 04/05/22 05/12/22 Unknown History mL) subcutaneous pen (Lantus Solostar U-100 Insulin) lisinopril 20 mg tablet 20 mg PO DAILY 04/05/22 05/12/22 Unknown History methadone 10 mg/5 mL oral solution 55 mg PO DAILY 04/05/22 05/13/22 05/12/22 History omeprazole 20 mg capsule,delayed 20 mg PO DAILY 04/05/22 05/12/22 Unknown History release daptomycin 500 mg intravenous 500 mg IV DAILY 05/12/22 05/12/22 History solution Physical Exam Vital Signs: Vital Signs: Last Vital Signs Temp 97.7 F 05/24/22 07:22 Pulse 91 05/24/22 07:22 Resp 18 05/24/22 07:22 BP 121/56 L 05/24/22 07:22 Pulse Ox 96 05/24/22 07:22 O2 Del Method 05/24/22 07:22 O2 Flow Rate 5 05/20/22 15:25 BMI result Body Mass Index 36.0 Const: General: healthy appearing and no acute distress Orientation/consciousness: patient oriented x3 HEENT: Head: Yes normocephalic and Yes atraumatic Eyes: Conjunctivae: conjunctivae normal Neck: Neck: Yes normal visual inspection Chest: Chest palpation & inspection: normal inspection of the chest Resp: Effort & Inspection: normal respiratory effort Cardio: Rate: regular rate GI: Inspection: Yes normal to inspection Palpation (GI): Soft to palpation : Other: Canales in place draining clear yellow urine Skin: General skin exam: no rashes or lesions noted Neuro: General: patient oriented x3 Extrem: Other: Left foot bandage intact Psych: Appearance: grossly normal Affect: normal affect Results Labs Result diagrams: 05/24/22 05:05 05/24/22 05:05 Labs: Abnormal lab results 05/23/22 05/23/22 05/23/22 Range/Units 11:03 16:29 16:50 WBC (4.8-10.8) X10*3/uL RBC (4.60-5.80) X10*6/uL Hgb (14.0-18.0) g/dl Hct (42.0-52.0) % MCH (27.0-33.0) pg RDW (11.0-16.0) % ESR (0-15) MM/HR Sodium (135-145) mmol/L Carbon Dioxide (22-29) mmol/L BUN (9-16) mg/dL Creatinine (0.5-1.4) mg/dL POC Glucose 465 H* 281 H (60-115) mg/dL Random Glucose (60-115) mg/dL Calcium (8.4-10.2) mg/dL C-Reactive Protein (< or = 0.50) mg/dL Urine Protein 30 (1+) H (Neg-Trace) mg/dL Urine Glucose (UA) 100 H (Negative) mg/dL 05/23/22 05/24/22 05/24/22 Range/Units 20:28 05:05 05:05 WBC 13.7 H (4.8-10.8) X10*3/uL RBC 2.84 L (4.60-5.80) X10*6/uL Hgb 7.4 L (14.0-18.0) g/dl Hct 23.3 L (42.0-52.0) % MCH 26.1 L (27.0-33.0) pg RDW 16.6 H (11.0-16.0) % ESR (0-15) MM/HR Sodium 134 L (135-145) mmol/L Carbon Dioxide 21 L (22-29) mmol/L BUN 37 H (9-16) mg/dL Creatinine 2.45 H (0.5-1.4) mg/dL POC Glucose 167 H (60-115) mg/dL Random Glucose 119 H D (60-115) mg/dL Calcium 8.0 L (8.4-10.2) mg/dL C-Reactive Protein 22.62 H (< or = 0.50) mg/dL Urine Protein (Neg-Trace) mg/dL Urine Glucose (UA) (Negative) mg/dL 05/24/22 Range/Units 05:05 WBC (4.8-10.8) X10*3/uL RBC (4.60-5.80) X10*6/uL Hgb (14.0-18.0) g/dl Hct (42.0-52.0) % MCH (27.0-33.0) pg RDW (11.0-16.0) % ESR > 140 H (0-15) MM/HR Sodium (135-145) mmol/L Carbon Dioxide (22-29) mmol/L BUN (9-16) mg/dL Creatinine (0.5-1.4) mg/dL POC Glucose (60-115) mg/dL Random Glucose (60-115) mg/dL Calcium (8.4-10.2) mg/dL C-Reactive Protein (< or = 0.50) mg/dL Urine Protein (Neg-Trace) mg/dL Urine Glucose (UA) (Negative) mg/dL Short CBC 05/24/22 Range/Units 05:05 WBC 13.7 H (4.8-10.8) X10*3/uL Hgb 7.4 L (14.0-18.0) g/dl Hct 23.3 L (42.0-52.0) % Plt Count 326 (160-400) X10*3/uL BMP 05/24/22 05:05 Sodium 134 L Potassium 4.3 Chloride 101 Carbon Dioxide 21 L BUN 37 H Creatinine 2.45 H Calcium 8.0 L Urine 05/14/22 05/23/22 Range/Units 13:01 16:29 Urine Color Yellow Yellow Urine Appearance Turbid Cloudy Urine pH 5.0 5.0 (5.0-9.0) Ur Specific [place] 1.025 1.020 (1.005-1.025) Urine Protein 30 (1+) H 30 (1+) H (Neg-Trace) mg/dL Urine Glucose (UA) 250 H 100 H (Negative) mg/dL Collected: 05/14/22 Status: COMP Req#: [id number] Received: 05/14/22 Source: [facility] Sp Desc: Urine acosta Subm Dr: Osvaldo Martinez DO Ordered: Urine Culture Procedure Result Verified Site Urine Culture Final 05/15/22 Report Result < 10,000 cfu/ml Imaging Abdominal ultrasound report/results: report reviewed and image reviewed Additional studies: Date of Service: 05/23/22 EXAMINATION: US RETROPERITONEAL LIMITED (RENAL ONLY) COMPARISON: None FINDINGS: RIGHT KIDNEY: 14.0 x 5.7 x 6.8 cm (SAG x AP x TRV). The kidney is normal in size, contour, and echogenicity. Renal cortical thickness is normal. No calculi or focal parenchymal lesions. No hydronephrosis. LEFT KIDNEY: 13.7 x 5.9 x 5.9 cm (SAG x AP x TRV). The kidney is normal in size, contour, and echogenicity. Renal cortical thickness is normal. No calculi or focal parenchymal lesions. No hydronephrosis. There is no lesion seen in the upper pole to correspond to the hypodense lesion on CT 01/29/2022 US/US renal BI IMPRESSION: Unremarkable renal ultrasound. Hypodense lesion seen in the upper pole right kidney is too small and may represent a hemorrhagic or proteinaceous cyst. It is not visualized by today ultrasound. Assessment and Plan (1) Urinary retention: Status: Acute (2) History of prostate cancer: Status: Acute Plan D/C with canales Continue tamsulosin FU with Dr. Chung Procedures Date of Service Date of Service: 05/24/22
--- NOTE | 2022-05-24 11:00 | HO.VASCPN ---
Subjective Subjective Date of Service: 05/24/22 Patient reports: no new complaints and feels better Interval history: Very pleasant 56-year-old gentleman status post transmetatarsal amputation. No events over the weekend. He reports that he feels significantly better. He denies pain but never had any significant pain in that left foot. In general is in good spirits. Physical Exam Vital Signs: Vital Signs: Last Vital Signs Temp 97.7 F 05/24/22 07:22 Pulse 91 05/24/22 07:22 Resp 18 05/24/22 07:22 BP 121/56 L 05/24/22 07:22 Pulse Ox 96 05/24/22 07:22 O2 Del Method 05/24/22 07:22 O2 Flow Rate 5 05/20/22 15:25 BMI result Body Mass Index 36.0 Const: General: cooperative, healthy appearing and no acute distress Orientation/consciousness: oriented to person, oriented to place and oriented to time HEENT: Head: Yes normal to inspection Neck: Carotids: no bruits Chest: Chest palpation & inspection: normal inspection of the chest Resp: Effort & Inspection: normal respiratory effort and able to speak in complete sentences Auscultation: clear to auscultation bilaterally Cardio: Rate: regular rate Heart sounds: S1 normal heart sound present and S2 normal heart sound present GI: Inspection: Yes normal to inspection Skin: General skin exam: no rashes or lesions noted Wounds: amputation site (Left trans met healing well. Some serous drainage from the middle of incis) Neuro: General: oriented to person, oriented to place, oriented to time and CN's II-XI intact bilaterally Extrem: General: Yes normal to inspection, Yes full ROM and Yes no clubbing, cyanosis or edema Psych: Appearance: grossly normal and well kempt Speech and movement: Normal speech and movement present Affect: normal affect Progress Note: A&P Assessment and plan (1) Status post transmetatarsal amputation of left foot: Status: Acute Assessment and Plan: In short patient is doing well status post transmetatarsal amputation of his left foot. Dressing was changed. He will require at least 10 days of p.o. antibiotics upon discharge such as Keflex. I have written for wound and dressing changes. Upon discharge he can see me in approximately 2 weeks time. Once again I did spend an extensive time discussing the importance of diabetes control with this gentleman. He appears to be doing significantly better. In addition upon discharge he will require 6 months of aspirin and Plavix as well. Time Spent With Patient Time: Total time spent is greater than 50% in coordination of care (as documented) at patient's floor/unit and/or counseling patient: Procedures Date of Service Date of Service: 05/24/22 Quality Stroke Does the patient have a stroke diagnosis?: No VTE Prior VTE?: No VTE Risk Level:: Medical - moderate - high VTE Device Contraindication: Treatment Not Indicated VTE Drug Contraindication: N/A - Med Ordered
[2022-05-24 11:06] VITALS: BP 109/57; PULSE 77; RESP 18; TEMP 36.3; O2SAT 96
--- NOTE | 2022-05-24 11:13 | MHC.CARE ---
Please consult care team when medically cleared
--- NOTE | 2022-05-24 11:20 | P.PNIM_ITS ---
Subjective Subjective Date of Service: 05/24/22 Interval History: urinary retention yesterday, Castano placed; hx prostate CA no foot pain no further fevers denies SI Review of Systems Review of Systems: Yes all other systems are reviewed and are negative Physical Exam Vital Signs: Vital Signs: Last Vital Signs Temp 97.4 F 05/24/22 11:06 Pulse 77 05/24/22 11:06 Resp 18 05/24/22 11:06 BP 109/57 L 05/24/22 11:06 Pulse Ox 96 05/24/22 11:06 O2 Del Method 05/24/22 11:06 O2 Flow Rate 5 05/20/22 15:25 BMI result Body Mass Index 36.0 Gen: in no acute distress Neck: supple Lungs: clear to auscultation bilaterally Heart: regular rate and rhythm, no murmurs Abd: soft, non-tender, non-distended Ext: no edema, L foot dressing in place Skin: warm/well-perfused Neuro: alert and oriented x3, no focal findings Psych: appropriate affect Objective Data Active Medications Acetaminophen (Acetaminophen 325 Mg Tablet) 650 mg PO Q6H PRN PRN Reason: Pain, Mild (Pain Scale 1-3) Last Admin: 05/23/22 02:11 Dose: 650 mg Documented By: KALE Aspirin (Aspirin 81 Mg Tab.Chew) 81 mg PO DAILY [facility] Last Admin: 05/24/22 08:56 Dose: 81 mg Documented By: BRAD Atorvastatin Calcium (Atorvastatin Calcium 10 Mg Tablet) 10 mg PO DAILY [facility] Last Admin: 05/24/22 08:56 Dose: 10 mg Documented By: BRAD Carvedilol (Carvedilol 12.5 Mg Tablet) 25 mg PO BID [facility]; Protocol Last Admin: 05/24/22 08:56 Dose: 25 mg Documented By: BRAD Clopidogrel Bisulfate (Clopidogrel Bisulfate 75 Mg Tablet) 75 mg PO DAILY [facility] Last Admin: 05/24/22 08:56 Dose: 75 mg Documented By: BRAD Dextrose (Dextrose 50 % 25 Gm/50 Ml Syringe) 25 gm IVPUSH Q15M PRN; Protocol PRN Reason: per Hypoglycemia Standing Ord. Last Admin: 05/13/22 04:12 Dose: 25 gm Documented By: EDY Docusate Sodium (Docusate Sodium 100 Mg Capsule) 100 mg PO DAILY PRN PRN Reason: Constipation Ferrous Sulfate (Ferrous Sulfate 324 Mg Tablet.Dr) 324 mg PO BIDWM [facility] Last Admin: 05/24/22 08:57 Dose: 324 mg Documented By: BRAD Glucose (Glucose Gel 15 Gm Gel..Gram.) 15 gm PO Q15M PRN; Protocol PRN Reason: per Hypoglycemia Standing Ord. Heparin Sodium (Porcine) (Heparin Sodium,Porcine 5,000 Unit/Ml Vial) 5,000 unit SUBCUT Q12H [facility] Last Admin: 05/24/22 06:00 Dose: 5,000 unit Documented By: MADELAINE Hydroxyzine HCl (Hydroxyzine Hcl 25 Mg Tablet) 25 mg PO TID PRN PRN Reason: itching Last Admin: 05/21/22 22:10 Dose: 25 mg Documented By: KALE Lactated Ringer's (Lr) 1,000 mls @ 125 mls/hr IVCONT .Q8H [facility] Stop: 05/24/22 23:59 Last Admin: 05/24/22 09:00 Dose: 125 mls/hr Documented By: BRAD Insulin Glargine (Insulin Glargine,Hum.Rec.Anlog 100 Unit/Ml 10 Ml Vial) 30 unit SUBCUT DAILY [facility] Last Admin: 05/24/22 08:56 Dose: 30 unit Documented By: BRAD Insulin Human Lispro (Insulin Lispro 100 Unit/Ml 3 Ml Vial) 0 unit SUBCUT QIDACHS [facility]; Protocol Last Admin: 05/24/22 08:54 Dose: Not Given Documented By: BRAD Non-Admin Reason: No Insulin Coverage Levofloxacin (Levofloxacin 750 Mg Tablet) 750 mg PO Q24H [facility] Last Admin: 05/23/22 16:37 Dose: 750 mg Documented By: ARMANDO Linezolid (Linezolid 600 Mg Tablet) 600 mg PO Q12H [facility] Last Admin: 05/24/22 03:03 Dose: 600 mg Documented By: MADELAINE Methadone HCl (Methadone Hcl 20 Mg/2 Ml Oral.Conc) 55 mg PO DAILY [facility] Last Admin: 05/24/22 08:56 Dose: 55 mg Documented By: BRAD Nifedipine (Nifedipine Er 30 Mg Tab.Er.24) 90 mg PO DAILY [facility]; Protocol Last Admin: 05/14/22 07:39 Dose: 90 mg Documented By: ANDRADE Nifedipine (Nifedipine Er 90 Mg Tab.Er.24) 90 mg PO DAILY [facility]; Protocol Last Admin: 05/24/22 08:56 Dose: 90 mg Documented By: BRAD Olanzapine (Olanzapine 5 Mg Tablet) 5 mg PO ONCE PRN PRN Reason: anxiety/restlessness Last Admin: 05/18/22 00:10 Dose: 5 mg Documented By: KALE Olanzapine (Olanzapine 5 Mg Tablet) 5 mg PO ONCE PRN PRN Reason: anxiety/restlessness Last Admin: 05/19/22 20:53 Dose: 5 mg Documented By: CANELO Olanzapine (Olanzapine 5 Mg Tablet) 5 mg PO ONCE PRN PRN Reason: anxiety/restlessness Omeprazole (Omeprazole 20 Mg Capsule.Dr) 20 mg PO DAILY@0630 [facility] Last Admin: 05/24/22 06:00 Dose: 20 mg Documented By: MADELAINE Ondansetron HCl (Ondansetron Hcl 4 Mg/2 Ml Vial) 4 mg IVPUSH Q8H PRN PRN Reason: Nausea and Vomiting Last Admin: 05/18/22 16:33 Dose: 4 mg Documented By: SMILEY Pharmacy Consult (Consult Rx Perform Med Rec) 1 each MISCELLANE ONCE PRN PRN Reason: Consult order Sodium Chloride (0.9 % Sodium Chloride Flush 3 Ml Syringe) 3 ml IVFLUSH QSHIFT [facility] Last Admin: 05/24/22 08:57 Dose: 3 ml Documented By: BRAD Tamsulosin HCl (Tamsulosin Hcl 0.4 Mg Capsule) 0.4 mg PO DAILY [facility] Last Admin: 05/24/22 08:57 Dose: 0.4 mg Documented By: BRAD Labs CBC & Chem 7: 05/24/22 05:05 05/24/22 05:05 Labs: Laboratory Results - last 24 hr 05/23/22 05/23/22 05/23/22 16:29 16:29 16:50 MCV MCH MCHC RDW Plt Count MPV Absolute Nucleated RBC Nucleated RBC % (auto) ESR Anion Gap Estim Creat Clear Calc Estimated GFR POC Glucose 281 H Random Glucose Calcium C-Reactive Protein Urine Color Yellow Urine Appearance Cloudy Urine pH 5.0 Ur Specific [place] 1.020 Urine Protein 30 (1+) H Urine Glucose (UA) 100 H Urine Ketones Trace Urine Blood Negative Urine Nitrite Negative Ur Leukocyte Esterase Negative Urine RBC 0-2 Urine WBC 0-5 Ur Squamous Epith Cells 6-10 Urine Bacteria None Seen Hyaline Casts >20 Urine Eosinophils % 0.0 Ur Random Sodium 26.0 Urine Creatinine 205.72 05/23/22 05/24/22 05/24/22 20:28 05:05 05:05 MCV 82.0 MCH 26.1 L MCHC 31.8 RDW 16.6 H Plt Count 326 MPV 10.5 Absolute Nucleated RBC 0.000 Nucleated RBC % (auto) 0.0 ESR Anion Gap 16 Estim Creat Clear Calc 38.7 Estimated GFR 27 POC Glucose 167 H Random Glucose 119 H D Calcium 8.0 L C-Reactive Protein 22.62 H Urine Color Urine Appearance Urine pH Ur Specific [place] Urine Protein Urine Glucose (UA) Urine Ketones Urine Blood Urine Nitrite Ur Leukocyte Esterase Urine RBC Urine WBC Ur Squamous Epith Cells Urine Bacteria Hyaline Casts Urine Eosinophils % Ur Random Sodium Urine Creatinine 05/24/22 05/24/22 05:05 07:29 MCV MCH MCHC RDW Plt Count MPV Absolute Nucleated RBC Nucleated RBC % (auto) ESR > 140 H Anion Gap Estim Creat Clear Calc Estimated GFR POC Glucose 109 Random Glucose Calcium C-Reactive Protein Urine Color Urine Appearance Urine pH Ur Specific [place] Urine Protein Urine Glucose (UA) Urine Ketones Urine Blood Urine Nitrite Ur Leukocyte Esterase Urine RBC Urine WBC Ur Squamous Epith Cells Urine Bacteria Hyaline Casts Urine Eosinophils % Ur Random Sodium Urine Creatinine Impressions Renal Ultrasound 05/23/22 14:04 IMPRESSION: Unremarkable renal ultrasound. Hypodense lesion seen in the upper pole right kidney is too small and may represent a hemorrhagic or proteinaceous cyst. It is not visualized by today ultrasound. Assessment and Plan (1) Osteomyelitis: Status: Acute Plan hospital d#13 56yo M with DM2 admitted for worsening DM foot wound/osteomyelitis after recently being discharged on daptomycin # DM foot wound/osteomyelitis - s/p TMA L foot POD#4; wound Cx grew Enterobacter aerogenes and Enterococcus faecium resistant to penicillin and vancomycin; blood cultures x2 negative - d#3 levofloxacin + linezolid, discuss duration with ID - wound care as per Vasc Surg: Xeroform, 4x4 and Kerlix wrap to be changed daily on left foot - continue pain medications - Kim catheter placed on 04/19/22 to be removed # recurrent fever with leukocytosis - likely reactive to surgery - ABX as above - fever has resolved # AMY/CKD3, prerenal with FENa 0.3% - give another round of 2L IV LR, avoid nephrotoxins, lisinopril already on hold, recheck BMP in AM # urinary retention - Castano, tamsulosin, Urology consult # transient agitation 05/19 # hx depression/ suicidal ideation - sitter, CARE Team consult today to see if still needed # acute/chronic anemia - no GI bleeding; likely due to chronic inflamation/infection/surgery - s/p 3u pRBCs, monitor H+H # HTN - continue carvedilol + nifedipine # DM2 with hyperglycemia - now well-controlled on higher doses of basal/bolus insulin # PAD - continue statin, DAPT # OUD - methadone # VTE ppx: UFH # dispo: anticipate home with VNA possibly tomorrow In my clinical judgment, the patient requires continued hospitalization for the following reasons: AMY Quality Stroke Does the patient have a stroke diagnosis?: No VTE Prior VTE?: No VTE Risk Level:: Medical - moderate - high VTE Device Contraindication: Treatment Not Indicated VTE Drug Contraindication: N/A - Med Ordered
[2022-05-24 11:39] LABS: Glucose, Whole Blood 153 mg/dL (60-115)
[2022-05-24] MEDS: Insulin Lispro 100 UNIT/ML 3 ML VIAL SUBCUT ×3 (11:57→21:29)
[2022-05-24] MEDS: Acetaminophen 325 MG TABLET 650 MG PO (12:00)
[2022-05-24] MEDS: levoFLOXacin 750 MG TABLET PO (14:45)
[2022-05-24 15:57] VITALS: BP 134/69; PULSE 79; RESP 16; TEMP 36.2; O2SAT 98
[2022-05-24 16:04] LABS: Glucose, Whole Blood 257 mg/dL (60-115)
[2022-05-24 19:37] VITALS: BP 138/73; PULSE 85; RESP 17; TEMP 36.4; O2SAT 99
[2022-05-24 21:29] LABS: Glucose, Whole Blood 233 mg/dL (60-115)
[2022-05-24 23:45] VITALS: BP 135/69; PULSE 84; RESP 17; TEMP 36.9; O2SAT 97
[2022-05-25] MEDS: Linezolid 600 MG TABLET PO ×2 (02:06→14:45)
[2022-05-25 02:18] VITALS: TEMP 37.2
[2022-05-25 03:33] VITALS: BP 159/70; PULSE 81; RESP 17; TEMP 36.6; O2SAT 96
[2022-05-25] MEDS: oxyCODONE HCl Immed Release 5 MG TABLET PO ×3 (04:16→20:28)
[2022-05-25 05:59] LABS: Anion Gap 17 (12-20); Blood Urea Nitrogen 25 mg/dL (9-16); Calcium 8.1 mg/dL (8.4-10.2); Carbon Dioxide 23 mmol/L (22-29); Chloride 102 mmol/L (96-108); Creatinine Clr Calc Pharmacy 53.3; Estimated Glomerular Filt Rate 40; Glucose Random 225 mg/dL (60-115); Potassium 4.5 mmol/L (3.3-5.1); Sodium 137 mmol/L (135-145)
[2022-05-25] MEDS: Heparin Sodium,Porcine 5,000 UNIT/ML VIAL 5000 UNIT SUBCUT ×2 (05:59→20:26)
[2022-05-25] MEDS: Omeprazole 20 MG CAPSULE.DR PO (05:59)
[2022-05-25 07:08] VITALS: BP 152/68; PULSE 81; RESP 20; TEMP 36.4; O2SAT 95
[2022-05-25 07:41] LABS: Glucose, Whole Blood 284 mg/dL (60-115)
[2022-05-25] MEDS: Tamsulosin HCL 0.4 MG CAPSULE PO (08:05)
[2022-05-25] MEDS: methADONE HCl 20 MG/2 ML ORAL.CONC 55 MG PO (08:05)
[2022-05-25] MEDS: carvediloL 12.5 MG TABLET 25 MG PO ×2 (08:06→20:27)
[2022-05-25] MEDS: Clopidogrel Bisulfate 75 MG TABLET PO (08:06)
[2022-05-25] MEDS: Atorvastatin Calcium 10 MG TABLET PO (08:06)
[2022-05-25] MEDS: NIFEdipine ER 90 MG TAB.ER.24 PO (08:06)
[2022-05-25] MEDS: 0.9 % Sodium Chloride Flush 3 ML SYRINGE IVFLUSH ×2 (08:06→16:27)
[2022-05-25] MEDS: Aspirin 81 MG TAB.CHEW PO (08:06)
[2022-05-25] MEDS: Ferrous Sulfate 324 MG TABLET.DR PO ×2 (08:06→16:26)
[2022-05-25] MEDS: Insulin Glargine,Hum.rec.anlog 100 UNIT/ML 10 ML VIAL 30 UNIT SUBCUT (08:07)
[2022-05-25] MEDS: Insulin Lispro 100 UNIT/ML 3 ML VIAL SUBCUT ×4 (08:07→20:27)
[2022-05-25] MEDS: Lactated Ringers 1,000 ML 125 ML IVCONT ×2 (08:17→16:27)
--- NOTE | 2022-05-25 10:59 | HO.PM.IMPN ---
Subjective Subjective Date of Service: 05/25/22 Interval History: no fever denies foot pain denies SI does not want to go home with Castano Review of Systems Review of Systems: Yes all other systems are reviewed and are negative Physical Exam Vital Signs: Vital Signs: Last Vital Signs Temp 97.5 F 05/25/22 07:08 Pulse 81 05/25/22 07:08 Resp 20 05/25/22 07:08 BP 152/68 H 05/25/22 07:08 Pulse Ox 95 05/25/22 07:08 O2 Del Method 05/25/22 07:08 O2 Flow Rate 5 05/20/22 15:25 BMI result Body Mass Index 36.0 Gen: in no acute distress Neck: supple Lungs: clear to auscultation bilaterally Heart: regular rate and rhythm, no murmurs Abd: soft, non-tender, non-distended Ext: no edema, L foot dressing in place Skin: warm/well-perfused Neuro: alert and oriented x3, no focal findings Psych: appropriate affect Objective Data Active Medications Acetaminophen (Acetaminophen 325 Mg Tablet) 650 mg PO Q6H PRN PRN Reason: Pain, Mild (Pain Scale 1-3) Last Admin: 05/24/22 12:00 Dose: 650 mg Documented By: BRAD Aspirin (Aspirin 81 Mg Tab.Chew) 81 mg PO DAILY [facility] Last Admin: 05/25/22 08:06 Dose: 81 mg Documented By: KALE Atorvastatin Calcium (Atorvastatin Calcium 10 Mg Tablet) 10 mg PO DAILY [facility] Last Admin: 05/25/22 08:06 Dose: 10 mg Documented By: KALE Carvedilol (Carvedilol 12.5 Mg Tablet) 25 mg PO BID [facility]; Protocol Last Admin: 05/25/22 08:06 Dose: 25 mg Documented By: KALE Clopidogrel Bisulfate (Clopidogrel Bisulfate 75 Mg Tablet) 75 mg PO DAILY [facility] Last Admin: 05/25/22 08:06 Dose: 75 mg Documented By: KALE Dextrose (Dextrose 50 % 25 Gm/50 Ml Syringe) 25 gm IVPUSH Q15M PRN; Protocol PRN Reason: per Hypoglycemia Standing Ord. Last Admin: 05/13/22 04:12 Dose: 25 gm Documented By: EDY Docusate Sodium (Docusate Sodium 100 Mg Capsule) 100 mg PO DAILY PRN PRN Reason: Constipation Ferrous Sulfate (Ferrous Sulfate 324 Mg Tablet.Dr) 324 mg PO BIDWM [facility] Last Admin: 05/25/22 08:06 Dose: 324 mg Documented By: KALE Glucose (Glucose Gel 15 Gm Gel..Gram.) 15 gm PO Q15M PRN; Protocol PRN Reason: per Hypoglycemia Standing Ord. Heparin Sodium (Porcine) (Heparin Sodium,Porcine 5,000 Unit/Ml Vial) 5,000 unit SUBCUT Q12H [facility] Last Admin: 05/25/22 05:59 Dose: 5,000 unit Documented By: CASTILM Hydroxyzine HCl (Hydroxyzine Hcl 25 Mg Tablet) 25 mg PO TID PRN PRN Reason: itching Last Admin: 05/21/22 22:10 Dose: 25 mg Documented By: KALE Lactated Ringer's (Lr) 1,000 mls @ 125 mls/hr IVCONT .Q8H [facility] Stop: 05/25/22 23:59 Last Admin: 05/25/22 08:17 Dose: 125 mls/hr Documented By: KALE Insulin Glargine (Insulin Glargine,Hum.Rec.Anlog 100 Unit/Ml 10 Ml Vial) 30 unit SUBCUT DAILY [facility] Last Admin: 05/25/22 08:07 Dose: 30 unit Documented By: KALE Insulin Human Lispro (Insulin Lispro 100 Unit/Ml 3 Ml Vial) 0 unit SUBCUT QIDACHS [facility]; Protocol Last Admin: 05/25/22 08:07 Dose: 10 unit Documented By: KALE Levofloxacin (Levofloxacin 750 Mg Tablet) 750 mg PO Q24H [facility] Last Admin: 05/24/22 14:45 Dose: 750 mg Documented By: BRAD Linezolid (Linezolid 600 Mg Tablet) 600 mg PO Q12H [facility] Last Admin: 05/25/22 02:06 Dose: 600 mg Documented By: OLGA Methadone HCl (Methadone Hcl 20 Mg/2 Ml Oral.Conc) 55 mg PO DAILY [facility] Last Admin: 05/25/22 08:05 Dose: 55 mg Documented By: KALE Comments: Nifedipine (Nifedipine Er 30 Mg Tab.Er.24) 90 mg PO DAILY [facility]; Protocol Last Admin: 05/14/22 07:39 Dose: 90 mg Documented By: ANDRADE Nifedipine (Nifedipine Er 90 Mg Tab.Er.24) 90 mg PO DAILY [facility]; Protocol Last Admin: 05/25/22 08:06 Dose: 90 mg Documented By: KALE Olanzapine (Olanzapine 5 Mg Tablet) 5 mg PO ONCE PRN PRN Reason: anxiety/restlessness Last Admin: 05/18/22 00:10 Dose: 5 mg Documented By: KALE Olanzapine (Olanzapine 5 Mg Tablet) 5 mg PO ONCE PRN PRN Reason: anxiety/restlessness Last Admin: 05/19/22 20:53 Dose: 5 mg Documented By: CANELO Olanzapine (Olanzapine 5 Mg Tablet) 5 mg PO ONCE PRN PRN Reason: anxiety/restlessness Omeprazole (Omeprazole 20 Mg Capsule.Dr) 20 mg PO DAILY@0630 [facility] Last Admin: 05/25/22 05:59 Dose: 20 mg Documented By: HAZEL Ondansetron HCl (Ondansetron Hcl 4 Mg/2 Ml Vial) 4 mg IVPUSH Q8H PRN PRN Reason: Nausea and Vomiting Last Admin: 05/18/22 16:33 Dose: 4 mg Documented By: SMILEY Pharmacy Consult (Consult Rx Perform Med Rec) 1 each MISCELLANE ONCE PRN PRN Reason: Consult order Sodium Chloride (0.9 % Sodium Chloride Flush 3 Ml Syringe) 3 ml IVFLUSH QSHIFT [facility] Last Admin: 05/25/22 08:06 Dose: 3 ml Documented By: KALE Tamsulosin HCl (Tamsulosin Hcl 0.4 Mg Capsule) 0.4 mg PO DAILY [facility] Last Admin: 05/25/22 08:05 Dose: 0.4 mg Documented By: KALE Labs CBC & Chem 7: 05/24/22 05:05 05/25/22 05:33 Labs: Laboratory Results - last 24 hr 05/24/22 05/24/22 05/24/22 11:11 15:59 21:25 Anion Gap Estim Creat Clear Calc Estimated GFR POC Glucose 153 H 257 H 233 H Random Glucose Calcium 05/25/22 05/25/22 05:33 07:11 Anion Gap 17 Estim Creat Clear Calc 53.3 Estimated GFR 40 POC Glucose 284 H Random Glucose 225 H D Calcium 8.1 L Assessment and Plan (1) Osteomyelitis: Status: Acute Plan hospital d#14 56yo M with DM2 admitted for worsening DM foot wound/osteomyelitis after recently being discharged on daptomycin # DM foot wound/osteomyelitis - s/p TMA L foot POD#5; wound Cx grew Enterobacter aerogenes and Enterococcus faecium resistant to penicillin and vancomycin; blood cultures x2 negative - ABX as per ID: [id number]/ levofloxacin + linezolid - wound care as per Vasc Surg: Xeroform, 4x4 and Kerlix wrap to be changed daily on left foot - continue pain medications - Kim catheter placed on 04/19/22 removed yesterday, not needed # recurrent fever with leukocytosis - likely reactive to surgery; improved - ABX as above - fever has resolved # AMY/CKD3, prerenal with FENa 0.3% - give another round of 2L IV LR, avoid nephrotoxins, lisinopril already on hold, recheck BMP in AM; SCr improving # urinary retention - Castano, tamsulosin, Urology consulted; recommended home with Castano but he would like to trial voiding # transient agitation 05/19 # hx depression/ suicidal ideation - josiahter, CARE Team consult upon discharge # acute/chronic anemia - no GI bleeding; likely due to chronic inflammation/infection/surgery - s/p 3u pRBCs, monitor H+H; recheck CBC in AM # HTN - continue carvedilol + nifedipine # DM2 with hyperglycemia - continue basal/bolus insulin # PAD - continue statin, DAPT # OUD - methadone # VTE ppx: UFH # dispo: anticipate home with VNA possibly tomorrow In my clinical judgment, the patient requires continued hospitalization for the following reasons: AMY Quality Stroke Does the patient have a stroke diagnosis?: No VTE Prior VTE?: No VTE Risk Level:: Medical - moderate - high VTE Device Contraindication: Treatment Not Indicated VTE Drug Contraindication: N/A - Med Ordered
[2022-05-25 11:24] LABS: Glucose, Whole Blood 151 mg/dL (60-115)
[2022-05-25 11:33] VITALS: BP 115/57; PULSE 75; RESP 20; TEMP 36.3; O2SAT 97
--- NOTE | 2022-05-25 11:42 | PC.NURSE ---
pt surgery incision is moisture and whitish covered skin, notified to dr. Guy Brown, new ordered xeroform to alginate. now on will apply alginate with wrapping.
[2022-05-25] MEDS: levoFLOXacin 750 MG TABLET PO (14:45)
[2022-05-25 15:23] VITALS: BP 131/65; PULSE 78; RESP 19; TEMP 37
[2022-05-25 16:12] LABS: Glucose, Whole Blood 165 mg/dL (60-115)
[2022-05-25 19:22] VITALS: BP 136/67; PULSE 83; RESP 16; TEMP 36.8; O2SAT 99
[2022-05-25 20:05] LABS: Glucose, Whole Blood 163 mg/dL (60-115)
[2022-05-26] VITALS: BP 140/67; PULSE 79; RESP 16; TEMP 36.4; O2SAT 98
[2022-05-26] MEDS: Acetaminophen 325 MG TABLET 650 MG PO (01:28)
[2022-05-26] MEDS: Linezolid 600 MG TABLET PO ×2 (01:28→14:48)
[2022-05-26] MEDS: Heparin Sodium,Porcine 5,000 UNIT/ML VIAL 5000 UNIT SUBCUT (06:29)
[2022-05-26 06:30] LABS: Hematocrit 24.1 % (42.0-52.0); Hemoglobin 7.7 g/dl (14.0-18.0); Mean Corpuscular Hemoglobin 26.1 pg (27.0-33.0); Mean Corpuscular Volume 81.7 fL (80.0-98.0); Mean Platelet Volume 9.5 fL (9.4-12.4); Platelet Count 347 X10*3/uL (160-400); Red Blood Count 2.95 X10*6/uL (4.60-5.80); Red Cell Distribution Width 16.6 % (11.0-16.0); White Blood Count 10.3 X10*3/uL (4.8-10.8)
[2022-05-26] MEDS: Omeprazole 20 MG CAPSULE.DR PO (06:30)
[2022-05-26 06:50] LABS: Anion Gap 15 (12-20); Blood Urea Nitrogen 18 mg/dL (9-16); Calcium 8.3 mg/dL (8.4-10.2); Carbon Dioxide 23 mmol/L (22-29); Chloride 105 mmol/L (96-108); Creatinine Clr Calc Pharmacy 68.8; Estimated Glomerular Filt Rate 53; Glucose Random 195 mg/dL (60-115); Potassium 4.1 mmol/L (3.3-5.1); Sodium 139 mmol/L (135-145)
[2022-05-26 07:06] LABS: Glucose, Whole Blood 183 mg/dL (60-115)
[2022-05-26 07:09] VITALS: BP 149/67; PULSE 72; RESP 18; TEMP 36.8; O2SAT 95
[2022-05-26] MEDS: NIFEdipine ER 90 MG TAB.ER.24 PO (08:13)
[2022-05-26] MEDS: Tamsulosin HCL 0.4 MG CAPSULE PO (08:13)
[2022-05-26] MEDS: Insulin Lispro 100 UNIT/ML 3 ML VIAL SUBCUT ×2 (08:13→11:58)
[2022-05-26] MEDS: Insulin Glargine,Hum.rec.anlog 100 UNIT/ML 10 ML VIAL 30 UNIT SUBCUT (08:13)
[2022-05-26] MEDS: 0.9 % Sodium Chloride Flush 3 ML SYRINGE IVFLUSH (08:14)
[2022-05-26] MEDS: Ferrous Sulfate 324 MG TABLET.DR PO (08:14)
[2022-05-26] MEDS: Aspirin 81 MG TAB.CHEW PO (08:14)
[2022-05-26] MEDS: Clopidogrel Bisulfate 75 MG TABLET PO (08:14)
[2022-05-26] MEDS: methADONE HCl 20 MG/2 ML ORAL.CONC 55 MG PO (08:14)
[2022-05-26] MEDS: Atorvastatin Calcium 10 MG TABLET PO (08:14)
[2022-05-26] MEDS: carvediloL 12.5 MG TABLET 25 MG PO (08:14)
--- NOTE | 2022-05-26 09:57 | P.F2F_ITS ---
Service Date Service Date: 05/26/22 Encounter Date of encounter: 05/26/22 Reasons for Services Signs and symptoms assessed: Wound care Gross Deconditioning, Impaired Bed Mobility, Impaired Gait Pattern, Impaired J oint ROM,Impaired Safety,Impaired Skin Integrity ,Impaired Standing Balance, Impaired Transfer Ability, Impaired Trunk Control,Muscle Weakness,Pain Reason for custodial: wound care and teach disease management Reason for physical therapy: home safety and mobility, therapeutic exercises, restore joint function, gait/transfer training, assess need for DME, ADL training and energy conservation Homebound: Leaving the home is medically contraindicated at this time without the asist of a device and/or another person due th the listed conditions above and below. Reason homebound: unsteady gait / fall risk, immunosuppression / infection risk and weakness related to hospital stay Homebound supporting statement: - wound care as per [facility] Surg: Xeroform, 4x4 and Kerlix wrap to be changed daily on left foot 1. BED MOB WITH SUPERVISION 2. TRANSFER WITH CG TO W/ WALKER, L FOREFOOT OFFLOAD SHOE 3. GAIT X 50' WITH W/WALKER, CG, L FOREFOOT OFFLOAD SHOE -Goals Set with Patient No -Treatment Plan Bed Mobility, Transfer Training,Gait Training,Stair Training, Therapeutic Activities, Therapeutic Exercise, Patient Education, Safety,Balance Certification: Based on the above findings, I certify that this patient is confined to the home and needs intermittent custodial care, physical therapy and/or speech therapy, or continues to need occupational therapy. The patient is under my care, and I have initiated the establishment of the plan of care. The patient will be followed by a physician who will periodically review the plan of care.
--- NOTE | 2022-05-26 10:08 | P.DS_ITS ---
DS: Providers Provider Date of Service: 05/26/22 Date of admission: 05/12/22 19:26 Date of discharge: 05/26/22 Primary care physician: Twan Nunez MD Consults: 05/12/22 19:25 Consult to Infectious Diseases Routine Consulting Provider: Namrata De León Reason for consultation: Osteomyelitis 05/13/22 06:30 Consult to General Surgery Routine Consulting Provider: Matthew Edwards Reason for consultation: Osteo Has provider been notified: Yes 05/13/22 08:48 Consult to Vascular Surgery Routine Consulting Provider: Guy Brown Reason for consultation: Osteomyelitis left foot, diabetes 05/14/22 17:20 Consult to Care Team Routine Comment: Reason for consultation: depression with SI 05/16/22 07:43 Consult to Gastroenterology Routine Consulting Provider: Jensen Berrios Reason for consultation: Anemia Has provider been notified: No 05/16/22 09:18 Consult to Psychiatry Routine Consulting Provider: Psych Covering Reason for consultation: depression, family issues Has provider been notified: No 05/22/22 14:53 Consult to Infectious Diseases Routine Consulting Provider: Namrata De León Reason for consultation: foot infection Has provider been notified: Yes 05/24/22 09:31 Consult to Urology Routine Consulting Provider: [facility] [place] Urology [facility] Reason for consultation: urinary retention/hx of prostate CA 05/24/22 10:55 Consult to Care Team Routine Comment: Reason for consultation: depression/ suicidal ideation resolved 05/26/22 09:57 Consult to Care Team Stat Comment: Reason for consultation: ready for d/c home DS: Diagnosis Discharge Diagnosis (1) Osteomyelitis: Status: Acute (2) Diabetic infection of left foot: Status: Acute (3) PAD (peripheral artery disease): Status: Acute (4) Status post transmetatarsal amputation of left foot: Status: Acute (5) Urinary retention: Status: Acute (6) Acute kidney injury superimposed on CKD: Status: Acute (7) Diabetic wet gangrene of the foot: Status: Acute DS: Summary Hospital Course Hospital Course: from admission H+P, 05/12/22, by hospitalist Brandi Crane: Patient is very grumpy, does not on a communicate or talk to me, history is therefore is obtained mostly from ED physician This is a 56-year-old male with past medical history of diabetes and opioid use disorder, presents the hospital with complaints of left foot ulcer.? Unclear for how many days, but patient apparently had a surgical intervention on the same wound in April and was discharged from the hospital on 04/22 after receiving treatment for AMY as well as the wound on his left foot, a recommendation was to continue daptomycin for 42 days per Infectious Disease.? Patient returns stating worsening wound, draining, malodorous, and painful.? Pain is 10/10. Home unable to obtain review of system is patient is not forthcoming with any answers On arrival to the ED patient hemodynamically stable with no significant abnormal vitals Labs are significant for WBC count of 16.4, hemoglobin of 7.7, hematocrit of 24.7, ESR of 124 (115 on previous admission), sodium of 132, creatinine of 2.13 which is around his baseline, glucose of 775, CRP of 23( 7 previously), X-ray of the foot shows acute osteomyelitis with extensive osteomyelitis involving the 3rd distal and 4th metatarsals on the 3rd through 5th toes.? Tracking soft tissue gas consistent with gas-forming infection Patient started on IV antibiotics and will be admitted for further management This 56yo M with DM2 and PAD was admitted for worsening DM foot wound/osteomyelitis after recently being discharged on daptomycin via Hickmann catheter. Vascular Surgery and Infectious Disease were consulted. He underwent transmetatarsal amuptation of the left foot on 05/20/[address] Brown. Wound culture grew Enterobacter aerogenes and Enterococcus faecium resistant to penicillin and vancomycin; blood cultures were negative. He was treated with oral levofloxacin and linezolid. The Kim catheter was removed. He developed AMY superimposed on CKD3 that improved with IV fluids and was attributed to prerenal azotemia. He had urinary retention and Castano was placed. He is on tamsulosin and was able to void after Castano removal; he should follow up with Urology as an outpatient. He had a transient episode of agitation on 05/19 and given history of depression with suicidal ideation, Behavioral Health was consulted. He was deemed not a threat to himself and was instructed to followup as an outpatient. He was anemic due to chronic inflammation from the infection and did receive 3 units of packed red blood cells. No evidence of GI bleeding. He was placed on iron repletion. Discharge to short-term rehabilitation recommended but the patient declined, so he was discharged to home with VNA services for wound care and PT. Time Spent with Patient Time attestation: Total time spent providing and/or coordinating discharge services:45 Discharge coordination time: Greater than 30 minutes Quality: Safe Use of Opioids Does Pt have an Active Cancer Diagnosis on the Problem List?: No Quality: Stroke Does the patient have a stroke diagnosis?: No Physical Exam Vital Signs: Vital Signs: Last Vital Signs Temp 98.3 F 05/26/22 07:09 Pulse 72 05/26/22 07:09 Resp 18 05/26/22 07:09 BP 149/67 H 05/26/22 07:09 Pulse Ox 95 05/26/22 07:09 O2 Del Method 05/26/22 07:09 O2 Flow Rate 5 05/20/22 15:25 FiO2 97 05/25/22 15:23 BMI result Body Mass Index 36.0 Gen: in no acute distress Neck: supple Lungs: clear to auscultation bilaterally Heart: regular rate and rhythm, no murmurs Abd: soft, non-tender, non-distended Ext: no edema, L foot dressing in place Skin: warm/well-perfused Neuro: alert and oriented x3, no focal findings Psych: appropriate affect DS: Data Data Completed and Pending Completed studies during hospitalization [Text1]: Laboratory Results WBC 10.3 X10*3/uL (4.8-10.8) 05/26/22 06:22 RBC 2.95 X10*6/uL (4.60-5.80) L 05/26/22 06:22 Hgb 7.7 g/dl (14.0-18.0) L 05/26/22 06:22 Hct 24.1 % (42.0-52.0) L 05/26/22 06:22 MCV 81.7 fL (80.0-98.0) 05/26/22 06:22 MCH 26.1 pg (27.0-33.0) L 05/26/22 06:22 MCHC 32.0 g/dl (31.0-36.0) 05/26/22 06:22 RDW 16.6 % (11.0-16.0) H 05/26/22 06:22 Plt Count 347 X10*3/uL (160-400) 05/26/22 06:22 MPV 9.5 fL (9.4-12.4) 05/26/22 06:22 Immature Gran % (Auto) 0.5 % (0.0-0.4) H 05/14/22 09:14 Neut % (Auto) 74.5 % (45-73) H 05/14/22 09:14 Lymph % (Auto) 18.0 % (20-40) L 05/14/22 09:14 Stevens % (Auto) 6.0 % (2-11) 05/14/22 09:14 Eos % (Auto) 0.6 % (0-4) 05/14/22 09:14 Baso % (Auto) 0.4 % (0-2) 05/14/22 09:14 Lymph # (Auto) 2.0 X10*3/uL (1.2-4.9) 05/14/22 09:14 Stevens # (Auto) 0.7 X10*3/uL (0.1-1.2) 05/14/22 09:14 Eos # (Auto) 0.1 X10*3/uL (0.0-0.4) 05/14/22 09:14 Baso # (Auto) 0.0 X10*3/uL (0.0-0.2) 05/14/22 09:14 Abs Immat Gran (auto) 0.05 X10*3/uL (0.00-0.03) H 05/14/22 09:14 Absolute Neuts (auto) 8.1 x10*3/uL (2.0-8.3) 05/14/22 09:14 Absolute Nucleated RBC 0.000 X10*3/uL (0.0-0.012) 05/26/22 06:22 Nucleated RBC % (auto) 0.0 /100WBC (0.0-0.2) 05/26/22 06:22 Smear Path Review 05/14/22 09:14 ESR > 140 MM/HR (0-15) H 05/24/22 05:05 Sodium 139 mmol/L (135-145) 05/26/22 06:22 Potassium 4.1 mmol/L (3.3-5.1) 05/26/22 06:22 Chloride 105 mmol/L (96-108) 05/26/22 06:22 Carbon Dioxide 23 mmol/L (22-29) 05/26/22 06:22 Anion Gap 15 (12-20) 05/26/22 06:22 BUN 18 mg/dL (9-16) H 05/26/22 06:22 Creatinine 1.38 mg/dL (0.5-1.4) 05/26/22 06:22 Estim Creat Clear Calc 68.8 05/26/22 06:22 Estimated GFR 53 05/26/22 06:22 POC Glucose 183 mg/dL (60-115) H 05/26/22 06:58 Random Glucose 195 mg/dL (60-115) H 05/26/22 06:22 Lactic Acid 1.0 mmol/L (0.5-2.0) 05/12/22 18:24 Calcium 8.3 mg/dL (8.4-10.2) L 05/26/22 06:22 Iron 30 mcg/dL (45-160) L 05/15/22 05:44 TIBC 150 mcg/dL (228-428) L 05/15/22 05:44 % Saturation 20 % (15-50) 05/15/22 05:44 Unsat Iron Binding 120 ug/dL 05/15/22 05:44 Total Bilirubin 0.4 mg/dL (0.0-1.0) 05/12/22 18:08 Direct Bilirubin 0.2 mg/dL (0.0-0.5) 05/12/22 18:08 AST 11 U/L (5-37) 05/12/22 18:08 ALT 15 U/L (0-40) 05/12/22 18:08 Alkaline Phosphatase 116 U/L (39-117) 05/12/22 18:08 C-Reactive Protein 22.62 mg/dL (< or = 0.50) H 05/24/22 05:05 Total Protein 7.8 g/dL (6.5-8.0) 05/12/22 18:08 Albumin 3.3 g/dL (3.5-5.0) L 05/12/22 18:08 Lipase 9 U/L (8-78) 05/12/22 18:08 Vitamin B12 344 pg/mL (200-900) 05/18/22 05:31 Folate 9.8 ng/mL (> or = 4.0) 05/18/22 05:31 Urine Color Yellow 05/23/22 16: Urine Appearance Cloudy 05/23/22 16: Urine pH 5.0 (5.0-9.0) 05/23/22 16: Ur Specific [place] 1.020 (1.005-1.025) 05/23/22 16: Urine Protein 30 (1+) mg/dL (Neg-Trace) H 05/23/22 16: Urine Glucose (UA) 100 mg/dL (Negative) H 05/23/22 16: Urine Ketones Trace mg/dL (Negative) 05/23/22 16: Urine Blood Negative (Negative) 05/23/22 16: Urine Nitrite Negative (Negative) 05/23/22 16: Ur Leukocyte Esterase Negative (Negative) 05/23/22 16: Urine RBC 0-2 /HPF (0-2) 05/23/22 16: Urine WBC 0-5 /HPF (0-5) 05/23/22 16: Ur Squamous Epith Cells 6-10 /HPF (0-2) 05/23/22 16: Urine Bacteria None Seen (None Seen) 05/23/22 16: Hyaline Casts >20 /LPF (0-2) 05/23/22 16: Urine Eosinophils % 0.0 % 05/23/22 16:29 Ur Random Sodium 26.0 mmol/L 05/23/22 16: Urine Creatinine 205.72 mg/dL 05/23/22 16:29 Stool Occult Blood NEGATIVE (NEGATIVE) 05/16/22 Unknown Vancomycin Trough 11.2 mcg/mL (10.0-20.0) 05/21/22 19:20 Random Vancomycin 14.2 mcg/mL (15-20) L 05/17/22 17:52 Ethyl Alcohol < 10 mg/dL 05/12/22 18:08 Acetone, Qual Negative (Negative) 05/12/22 18:08 COVID-19 (JOSE DAVID) Negative (Negative) 05/12/22 18:08 COVID-19 Clin Com See Note 05/12/22 18:08 Blood Type AB Positive 05/20/22 05:49 Antibody Screen NEGATIVE 05/20/22 05:49 Crossmatch See Detail 05/20/22 05:49 Impressions Foot X-Ray 05/12/22 18:14 IMPRESSION: 1. Extensive osteomyelitis involving the distal third and fourth metatarsals and the third through fifth toes. 2. Tracking soft tissue gas consistent with gas-forming infection. 3. Extensive soft tissue swelling. Renal Ultrasound 05/23/22 14:04 IMPRESSION: Unremarkable renal ultrasound. Hypodense lesion seen in the upper pole right kidney is too small and may represent a hemorrhagic or proteinaceous cyst. It is not visualized by today ultrasound. Tunnelled Catheter Removal 05/24/22 14:34 TECHNIQUE/FINDINGS/IMPRESSION: Patient was sitting in a wheelchair. The area of Kim catheter was exposed along the right upper chest. The dressing was removed. The area around the Kim catheter was cleaned in a sterile fashion. With sterile gloves on, the catheter was gently pulled. The cuff of the catheter came out easily. The area was then cleaned and a sterile dressing applied postprocedure. The catheter measured the same size as when it was inserted, 42 cm long. Pathology 05/20/22 Diagnosis Foot, left, amputation: - Acute osteomyelitis. - Gangrenous necrosis involving skin and subcutaneous tissue. COMMENT:? The acute osteomyelitis is not present at the examined margins; inflamed soft tissue is present at the margin. Microbiology 05/17/22 03:55 Foot - Left Gram Stain - Final 05/17/22 03:55 Foot - Left Routine Culture - Final Enterobacter aerogenes Enterococcus faecium 05/12/22 18:24 Blood - Venous Blood Culture - Final No growth after 5 days. 05/12/22 18:24 Blood - Venous Blood Culture - Final No growth after 5 days. 05/14/22 14:42 Urine clean catch - Urine acosta top Urine Culture - Final Discharge Plan Discharge Anticipated Discharge Date/Time: 05/26/22 10:01 Patient Disposition: Home Health Service Discharge Diagnosis: # DM foot wound/osteomyelitis # AMY/CKD3 # urinary retention # acute/chronic anemia Referrals: [facility] [Outside] - 1 Day (RESUMPTION OF SNF AND HOME PHYSICAL THERAPY) Johnny Chung MD [Physician] - 1 Week Guy Brown MD [Physician] - 1 Week Twan Nunez MD [Primary Care Provider] - 05/28/22 1:15 pm (You have appointment scheduled with PCP with follow up, call if you need to reschedule.) Discharge Medications: New linezolid 600 mg Tablet 600 mg PO Q12H Qty: 4 0RF levofloxacin 750 mg Tablet 750 mg PO Q24H Qty: 2 0RF ferrous sulfate 324 mg (65 mg iron) Tablet,Delayed Release (Dr/Ec) 324 mg PO BIDWM Qty: 60 0RF clopidogrel 75 mg Tablet 75 mg PO DAILY Qty: 30 0RF aspirin 81 mg Tablet,Chewable 81 mg PO DAILY Qty: 30 0RF oxycodone 5 mg Tablet 5 mg PO Q8H PRN (Reason: severe pain) Qty: 9 0RF Rx Instructions: Partial Fill upon patient request. Continued atorvastatin 10 mg tablet 1 tab PO DAILY lisinopril 20 mg tablet 20 mg PO DAILY omeprazole 20 mg capsule,delayed release(DR/EC) 20 mg PO DAILY insulin aspart U-100 [Novolog Flexpen U-100 Insulin] 100 unit/mL (3 mL) insulin pen 0 sliding scale dose SUBCUT QIDACHS Protocol: Insulin Correction Scale Less than or equal to 110 ---- Give (units): 0 111 to 150 Give (units): 0 151 to 200 Give (units): 2 201 to 250 Give (units): 4 251 to 300 Give (units): 6 301 to 350 Give (units): 8 Greater than 350 Give (units): 10 Call MD if Blood Glucose > : 350 insulin glargine [Lantus Solostar U-100 Insulin] 100 unit/mL (3 mL) insulin pen 20 - 30 unit subcut DAILY methadone 10 mg/5 mL Solution 55 mg PO DAILY tamsulosin 0.4 mg Capsule 0.4 mg PO DAILY Qty: 30 0RF nifedipine 30 mg Tablet Extended Release 24hr 90 mg PO DAILY Qty: 30 0RF Protocol: Hold for SBP< HOLD for SBP < : 90 carvedilol 25 mg Tablet 25 mg PO BID Qty: 60 0RF Protocol: Hold for SBP/HR < HOLD for SBP < : 90 HOLD for HR < : 60 hydroxyzine pamoate [Vistaril] 25 mg capsule 25 mg PO TID PRN (Reason: itching) Qty: 21 1RF Discontinued ferrous sulfate 324 mg (65 mg iron) Tablet,Delayed Release (Dr/Ec) 324 mg PO DAILY Qty: 30 0RF daptomycin 500 mg recon soln 500 mg IV DAILY Discharge Orders: Discharge Order (Routine); Ordered 05/26/22 Ordered By: Sherine Scott Diet: Diabetic diet Activity on Discharge: As tolerated Stand Alone Forms: Patient Portal Discharge page Activity Restrictions/Additional Instructions: Wound care upon discharge: xeroform, 4x4 and Kerlix wrap to be changed daily on left foot. Please call Dr. Brown at [phone] for 2 week follow up for suture and staple removal Care Plan Goals: infection cure Health Concerns: # DM foot wound/osteomyelitis - treated surgically with amputation. take antibiotics for 2 more days: linezolid plus levofloxacin # AMY/CKD3 - resolved. avoid nephrotoxins, NSAIDs, etc. # urinary retention - follow up with Urology in 2 weeks. # acute/chronic anemia - take iron as prescribed. Please follow up with your primary care doctor within 1 week. Return to the hospital if you experience recurrent or worsening symptoms. Plan of Treatment: see above Assessment: See Discharge Summary.
[2022-05-26 11:04] LABS: Glucose, Whole Blood 272 mg/dL (60-115)
[2022-05-26 11:08] VITALS: BP 140/67; PULSE 75; RESP 18; TEMP 36.5; O2SAT 99
--- NOTE | 2022-05-26 11:50 | MHC.CM.PN ---
PER HOSPITALIST PT WILL BE MEDICALLY CLEARED FOR ONCE PT VOIDS AND IS CLEARED BY CARE TEAM, CM MET W/PT WHO CURRENTLY DENIES SI AND SAID WHEN HE MADE THAT STATEMENT HE WAS VERY OVERWHELMED W/HIS CONDITION AND THE FACT HIS WAS STILL REHAB AFTER AN AMP, PT REPORTS HIS SON JUAN VARGAS IS STAYING W/HIM SO HE WON'T BE ALONE AND ANOTHER SON LIVES TWO DOORS DOWN, PT REPORTS HIS VNA COMES EVERY OTHER DAY FRO DRESSING CHANGES. ANTIC D/C LATER TODAY ONCE PT VOIDS W/RESUMP OF [facility] AND FAMILY SUPPORT, ONE OF PT'S SONS FOR TRANSPORT
--- NOTE | 2022-05-26 14:06 | MHC.CARE ---
Pt is a 56 y/o, , Czech speaking male who is currently medically admitted at [facility] for complications related to his diabetes.? Pt had indicated to nursing staff that he has SI and depression and was therefore referred for an assessment before discharge. Pt has been medically cleared and is being assessed by the CARE Team to determine appropriate treatment recommendations. No known hx of suicide attempts.? Upon visiting, pt was sitting up alert and oriented x3, watching TV and eating lunch.? Pt had a wide range of affect, engaged easily, and did not present as depressed. Pt has an easily accessible therapist who he sees three times per month through his methadone clinic. Pt states that he was previously taking percocet for a back injury and had no idea it was addictive, and had to pursue methadone in order to abstain. No SI/HI/ or AVH. Speech was not pressured, no problems with concentration. Pt did not appear depressed, but instead was having a normative response to his medical and family issues. Pt. explained that when he had indicated SI, he was frustrated with his life situation.? However, today, he would not repeat the words he said previously because he is ?all done with that?, and instead explained that his of 35 years had been in the hospital for the last few months due to an amputated leg and he had not been able to see his ?babe? and just wants to be with her.? He also expressed his frustration at his sons, who he feels only want money and ?can?t get off their butts and work?. He feels they are not around to be helpful and supportive of their parents. Pt denies AVH, SI, HI, and self-harm urges.? At this time, pt does not appear to be at risk and does not meet criteria for inpatient admission.? This case has been discussed with C[employer] Zehra MEDRANO and ED provider Marcos Hernandez who are in agreement with the disposition.
[2022-05-26] MEDS: levoFLOXacin 750 MG TABLET PO (14:48)
--- NOTE | 2022-05-26 15:37 | PC.NURSE ---
Castano removed at 1030. Voided 300cc at 1500. Plan for discharge home with vna today. Dressing changed to left foot per order.
--- NOTE | 2022-05-29 10:57 | PC.NURSE ---
LATE ENTRY ON MAY 15 AND PT RECEIVED A UNIT OF RBC'S BOTH UNTIS WERE COMPLETELY INFUSED. 0MLS REMAINED IN BAG. NOT CONMPLICATIIONS
== END 2022-05-26 15:35 | disposition home health service (06) | DRG 240 ==
LOC: HO.ED 19:22 → HO.EDOVER 19:41 → HO.S3 05-14 14:12
PROVIDERS: Hospitalist; Internal Medicine; Nurse Practitioner Acute Care; Physician Assistant Medical; Surgery Vascular Surgery; Admitting Provider Internal Medicine; Emergency Provider Student in an Organized Health Care Education/Training Program; PCP Internal Medicine; Visit Provider Family Medicine
PROC: 047Q3Z1 Dilation of Left Anterior Tibial Artery using Drug-Coated Balloon, Percutaneous Approach (ICD-10-PCS; principal; 2022-05-18 12:00)
PROC: 0Y6N0Z9 Detachment at Left Foot, Partial 1st Ray, Open Approach (ICD-10-PCS; CPT 28805; principal; 2022-05-20 14:00)
DX: E11.52 Type 2 diabetes mellitus with diabetic peripheral angiopathy with gangrene (principal); F11.20 Opioid dependence, uncomplicated; M86.172 Other acute osteomyelitis, left ankle and foot; R45.851 Suicidal ideations; N17.9 Acute kidney failure, unspecified; E11.69 Type 2 diabetes mellitus with other specified complication; E11.65 Type 2 diabetes mellitus with hyperglycemia; E11.621 Type 2 diabetes mellitus with foot ulcer; L97.529 Non-pressure chronic ulcer of other part of left foot with unspecified severity; E66.8 Other obesity; N18.30 Chronic kidney disease, stage 3 unspecified; D63.1 Anemia in chronic kidney disease; F32.A Depression, unspecified; I12.9 Hypertensive chronic kidney disease with stage 1 through stage 4 chronic kidney disease, or unspecified chronic kidney disease; I70.245 Atherosclerosis of native arteries of left leg with ulceration of other part of foot; D72.829 Elevated white blood cell count, unspecified; D64.9 Anemia, unspecified; R33.9 Retention of urine, unspecified; E11.22 Type 2 diabetes mellitus with diabetic chronic kidney disease; Z20.822 Contact with and (suspected) exposure to COVID-19; B95.2 Enterococcus as the cause of diseases classified elsewhere; R50.82 Postprocedural fever; Z78.1 Physical restraint status; Z68.36 Body mass index [BMI] 36.0-36.9, adult; Z85.46 Personal history of malignant neoplasm of prostate; Z91.199 Patient's noncompliance with other medical treatment and regimen due to unspecified reason; Z79.4 Long term (current) use of insulin; Z79.899 Other long term (current) drug therapy
CPT/HCPCS: 36415; 36589; 37228; 73630; 76775; 76937; 80048; 80076; 80202; 81001; 81003; 82009; 82077; 82272; 82565; 82607; 82746; 82947; 83540; 83605; 83690; 84300; 85025; 85027; 85652; 86140; 86850; 86900; 86901; 86923; 87040; 87070; 87077; 87086; 87186; 87205; 87635; 88305; 88311; 89190; 93005; 97162; 99152; 99153; 99285; C1725; C1758; C1760; C1769; C1776; C1887; J1650; J2250; J2270; J2370; J2405; J2543; J2795; J2997; J3010; J3370; P9016

== ENCOUNTER 2022-06-15 11:07 | Emergency (ER) | payer MEDICARE, MEDICAID, SELFPAY ==
[2022-06-15 11:24] VITALS: BP 112/68; BP 113/64; PULSE 80; PULSE 88; RESP 17; TEMP 37.1; O2SAT 97; O2SAT 99; BMI 36.0
--- NOTE | 2022-06-15 12:35 | PC.NURSE ---
discussed with CM to set up transportation to follow up appt
--- NOTE | 2022-06-15 12:55 | ED_ITS ---
HPI - General Adult General Chief complaint: Extremity Injury, Lower Stated complaint: BLEEDING AT SITE FOOT L FOOT TOES AMP Time Seen by Provider: 06/15/22 11:26 Source: patient Mode of arrival: ambulatory Limitations: no limitations History of Present Illness HPI narrative: 56 yold male with pmh of DM s/p left amputation by Dr. Brown presents to the ED for two staple coming out and bleeding that occurred this morning. Patient states he missed his follow up with Dr. Brown last week. Related Data Home Medications Medication Instructions Recorded Confirmed atorvastatin 10 mg tablet 10 mg PO DAILY@1700 04/05/22 06/15/22 insulin aspart U-100 100 unit/mL 0 sliding scale dose subcut QIDACHS 04/05/22 06/15/22 (3 mL) subcutaneous pen (Novolog Flexpen U-100 Insulin aspart) insulin glargine 100 unit/mL (3 90 unit subcut DAILY 04/05/22 06/15/22 mL) subcutaneous pen (Lantus Solostar U-100 Insulin) lisinopril 20 mg tablet 20 mg PO DAILY 04/05/22 06/15/22 methadone 10 mg/5 mL oral solution 55 mg PO DAILY 04/05/22 06/15/22 omeprazole 20 mg capsule,delayed 20 mg PO DAILY 04/05/22 06/15/22 release citalopram 20 mg tablet 20 mg PO DAILY@0630 06/15/22 06/15/22 metformin 1,000 mg tablet 1,000 mg PO BID 06/15/22 06/15/22 metoprolol succinate 50 mg 50 mg PO DAILY@0630 06/15/22 06/15/22 tablet,extended release 24 hr nifedipine 30 mg tablet,extended 90 mg PO DAILY@0630 06/15/22 06/15/22 release 24 hr Previous Rx's Medication Instructions Recorded hydroxyzine pamoate 25 mg capsule 25 mg PO TID PRN itching #21 caps 08/31/21 (Vistaril) tamsulosin 0.4 mg capsule 0.4 mg PO DAILY #30 caps 04/22/22 aspirin 81 mg chewable tablet 81 mg PO DAILY #30 tabs 05/26/22 clopidogrel 75 mg tablet 75 mg PO DAILY #30 tabs 05/26/22 ferrous sulfate 324 mg (65 mg 324 mg PO BIDWM #60 tabs 05/26/22 iron) tablet,delayed release Allergies Allergy/AdvReac Type Severity Reaction Status Date / Time No Known Allergies Allergy Verified 02/01/22 12:12 [No Known Allergies*] [facility] Past Medical History Medical History Chronic anemia CKD (chronic kidney disease) Diabetes Diabetic infection of left foot Fever of unknown origin Opioid use disorder Osteomyelitis PAD (peripheral artery disease) Social History Social History Household Members: Family Housing: Apartment Do you presently have visiting nurse or other home services: No Alcohol intake: never Patient Tobacco Use Status: Never used Tobacco Smoked in Last 30 Days: No Use of substances other than those prescribed or required for medical reasons: No Advance Directives: No Advance Directives Information Provided: Yes service: No Current occupational status: disabled Physical Exam ED Vital Signs: Vital Signs - 24 hr 06/15/22 11:24 06/15/22 14:55 Temperature 98.7 F 98.1 F Pulse Rate 80 75 Respiratory Rate 17 18 Blood Pressure 113/64 123/64 Pulse Oximetry 99 100 Oxygen Delivery Method Room Air Room Air BMI result Body Mass Index 36.0 Const General: cooperative, healthy appearing, comfortable, no acute distress, well developed, alert, awake and Physically active [facility] Head: Yes normal to inspection, Yes No palpable skull fracture present, Yes normocephalic, Yes atraumatic and No abrasion Eyes General: appearance normal, both eyes and all related structures Neck Neck: Yes normal visual inspection, Yes full ROM, Yes no lymphadenopathy, Yes no meningeal signs, Yes trachea midline, Yes supple, No anterior neck swelling and No tender Chest Chest palpation & inspection: normal inspection of the chest and normal palpation of entire chest wall Resp Effort & Inspection: normal respiratory effort and able to speak in complete sentences Auscultation: clear to auscultation bilaterally Cardio Jugular venous distension: no JVD Heart sounds: S1 normal heart sound present and S2 normal heart sound present GI Inspection: Yes normal to inspection and No abdominal wall ecchymosis Palpation (GI): Soft to palpation, not firm, nontender, no guarding and not rigid General: No CVA tenderness and Yes no CVA tenderness Back/Spine/Pelvis Back: no CVA tenderness, No CVA tenderness and No back tenderness Skin General skin exam: no rashes or lesions noted and elasticity normal Neuro General: no meningeal signs Extrem Other: LEft lower extremity: all toes amputation. Over [address] with 4 sutures placed. Area of opening with bleeding with loose junaid. General: Yes normal to inspection and Yes full ROM Psych Appearance: grossly normal, well kempt and not disheveled Course Course Course Narrative: Bleeding with 2 junaid lose almost coming off. Reevaluation(s) Reevaluation #1: Wound clean with sterile salin. To 2 junaid were removed and wound was approximated brought closer. Two new junaid placed. Discussing case with manager of case management to open eyes transport for patient to be brought to his appointment.. Patient has transportation issues. Time: 13:04 Reevaluation #2: Spoke with Dr. Brown who is unable to see patient. consulting property manager Ling organized a new transport service to bring patient back home and to bring him to his next appointment. Time: 15:45 Medical Decision Making MDM Narrative Medical decision making narrative: Wound dehiscence Discharge Plan Discharge Clinical Impression: Dehiscence of wound Patient Disposition: Home, Self-Care Instructions: Wound Dehiscence (ED) Additional Instructions: Please follow-up with Dr. Brown your vascular surgeon. Transportation service or organized future return for any appointments. Return to the ED for any more wound dehiscence, bleeding, redness, severe pain, chest pain, shortness of breath, fever, chills, or any other concerning symptoms. Prescriptions: No Action metoprolol succinate 50 mg tablet extended release 24 hr 50 mg PO DAILY@0630 citalopram 20 mg tablet 20 mg PO DAILY@0630 metformin 1,000 mg tablet 1,000 mg PO BID nifedipine 30 mg tablet extended release 24hr 90 mg PO DAILY@0630 Protocol: Hold for SBP< HOLD for SBP < : 90 atorvastatin 10 mg tablet 10 mg PO DAILY@1700 lisinopril 20 mg tablet 20 mg PO DAILY omeprazole 20 mg capsule,delayed release(DR/EC) 20 mg PO DAILY insulin aspart U-100 [Novolog Flexpen U-100 Insulin] 100 unit/mL (3 mL) insulin pen 0 sliding scale dose SUBCUT QIDACHS Protocol: Insulin Correction Scale Less than or equal to 110 ---- Give (units): 0 111 to 150 Give (units): 0 151 to 200 Give (units): 2 201 to 250 Give (units): 4 251 to 300 Give (units): 6 301 to 350 Give (units): 8 Greater than 350 Give (units): 10 Call MD if Blood Glucose > : 350 insulin glargine [Lantus Solostar U-100 Insulin] 100 unit/mL (3 mL) insulin pen 90 unit subcut DAILY methadone 10 mg/5 mL Solution 55 mg PO DAILY tamsulosin 0.4 mg Capsule 0.4 mg PO DAILY Qty: 30 0RF ferrous sulfate 324 mg (65 mg iron) Tablet,Delayed Release (Dr/Ec) 324 mg PO BIDWM Qty: 60 0RF clopidogrel 75 mg Tablet 75 mg PO DAILY Qty: 30 0RF aspirin 81 mg Tablet,Chewable 81 mg PO DAILY Qty: 30 0RF hydroxyzine pamoate [Vistaril] 25 mg capsule 25 mg PO TID PRN (Reason: itching) Qty: 21 1RF Referrals: Guy Brown MD [Physician] - (Left transmetatarsal amputation wound dehiscence) Discharge Date/Time: 06/15/22 15:52 Print Language: Maori
[2022-06-15 14:55] VITALS: BP 123/64; PULSE 75; RESP 18; TEMP 36.7; O2SAT 100
--- NOTE | 2022-06-15 15:25 | MHC.CM.ED ---
Received case management consult from Eldon KUMAR. Patient was [facility] Patient was supposed to go to a follow up appointment with Dr Brown's office on 06/03. Patient was a no-show due to transportation. Appointment was rescheduled for 06/10. Patient was a no-show due to transportation. Appointment is now scheduled for 06/22. Elida at Dr Ellis office is unsure if transportation has been arranged. [facility]. Patient was dicharged from [facility] to transfer to [facility] because they are able to transport patient's Methadone. T/W spoke with Bruce at [facility]. PVT1 has been arranged with Dr Nunez's office. They have transportation arranged for 06/22. Elida at Dr Rains is aware. Tita LIM and Eldon KUMAR aware. Adolfo JI booked for 4pm. Med nec with [facility]. Continue to monitor for d/c needs.
--- NOTE | 2022-06-15 15:52 | PC.NURSE ---
ems here for transport home. He reports his house is open, he does have [facility] services
== END 2022-06-15 15:52 | disposition home or self-care (01) ==
PROVIDERS: Emergency Provider Emergency Medicine Emergency Medical Services; PCP Internal Medicine
DX: T81.30XA Disruption of wound, unspecified, initial encounter (principal); Y82.8 Other medical devices associated with adverse incidents; E11.9 Type 2 diabetes mellitus without complications; F11.90 Opioid use, unspecified, uncomplicated; Z89.422 Acquired absence of other left toe(s); Z79.02 Long term (current) use of antithrombotics/antiplatelets; Z79.899 Other long term (current) drug therapy; Z79.4 Long term (current) use of insulin; Z79.82 Long term (current) use of aspirin
CPT/HCPCS: 12001; 99283

== ENCOUNTER 2022-06-17 02:30 | Inpatient (IN) | payer MEDICARE, MEDICAID, SELFPAY ==
[2022-06-17] VITALS (12 sets, daily range): BP systolic 99–154; BP diastolic 53–82; PULSE 72–91; RESP 11–19; TEMP 36.1–37; O2SAT 96–100; BMI 36.0
--- NOTE | ~2022-06-17 | CT_ITS ---
EXAMINATION: CT HEAD WITHOUT CONTRAST CLINICAL INFORMATION: Blurred vision, abnormal cranial nerve exam. COMPARISON: 01/30/[address] scan. TECHNIQUE: Contiguous axial imaging was performed from the skull base to vertex without intravenous administration of contrast. Coronal and sagittal reformatted images were obtained. This CT examination was performed using dose optimization techniques as appropriate, variously including the following: *Automated exposure control *Adjustment of mA and/or kV according to patient size (this includes techniques or standardized protocols for targeted exams where dose is matched to indication/reason for exam; i.e. extremities or head) *Use of iterative reconstruction technique DLP: 885 mGy-cm FINDINGS: There is mild widening of the cortical sulci and associated ventriculomegaly. Mild periventricular microvascular changes. The lateral ventricles are symmetrical. The third and fourth ventricles are in their normal midline position. The basilar and prepontine cisterns are unremarkable. There is no acute intra or extracerebral abnormality. There is no mass effect or midline shift. Sections through the bony calvarium are unremarkable. The orbits are intact. The paranasal sinuses are clear. The mastoid air cells are clear. CT/CT head/brain wo IV con IMPRESSION: No acute intracranial pathology.
--- NOTE | ~2022-06-17 | XR_ITS ---
EXAMINATION: XR CHEST CLINICAL INFORMATION: Diaphoresis. COMPARISON: Chest radiograph 04/04/2022. TECHNIQUE: Frontal view of the chest was obtained. FINDINGS: Normal appearance of the cardiomediastinal silhouette. No focal airspace opacity, pleural effusion or pneumothorax. No acute osseous abnormalities. Degenerative changes in the shoulders with findings suggesting rotator cuff disease, greatest on the right side. The included portions of the upper abdomen are within normal limits. XR/XR chest 1V IMPRESSION: No acute cardiopulmonary findings.
--- NOTE | 2022-06-17 02:45 | ECG_ITS ---
Test Reason : DIABETIC Blood Pressure : / mmHG Vent. Rate : 082 BPM Atrial Rate : 082 BPM P-R Int : 148 ms QRS Dur : 076 ms QT Int : 372 ms P-R-T Axes : -10 083 035 degrees QTc Int : 434 ms Normal sinus rhythm Normal ECG When compared with ECG of 12-MAY-2022 17:51, T wave amplitude has increased in Lateral leads Heart rate has decreased Referred By: Meli Cm Electronically Signed By:JANA MAIN MD
--- NOTE | 2022-06-17 02:46 | ED.GENADULT ---
HPI - General Adult General Chief complaint: General Medical Stated complaint: diabetic issue Time Seen by Provider: 06/17/22 02:44 Source: patient and EMS Mode of arrival: EMS Limitations: no limitations History of Present Illness HPI narrative: 56-year-old male with history of complicated diabetes that is controlled with insulin, patient woke up from sleeve feeling diaphoretic and shaking patient been having a visual disturbance due to uncontrolled diabetes that has been going for some weeks did not check his sugar but drink apple juice at home and call 911 on arrival patient had BS of 113, patient been having blurry vision for the past 3 weeks. Decline CP or SOB or abdominal pain. On arrival to the ED blood sugar was 80 patient was given apple juice orally. Left transmetatarsal amputation. Related Data Home Medications Medication Instructions Recorded Confirmed aspirin 81 mg chewable tablet 1 tab PO DAILY 06/17/22 06/17/22 carvedilol 25 mg tablet 1 tab PO BID 06/17/22 06/17/22 citalopram 20 mg tablet 1 tab PO DAILY 06/17/22 06/17/22 clopidogrel 75 mg tablet 1 tab PO DAILY 06/17/22 06/17/22 ferrous sulfate 324 mg (65 mg 1 tab PO BID 06/17/22 06/17/22 iron) tablet,delayed release insulin aspart U-100 100 unit/mL subcut DAILY 06/17/22 (3 mL) subcutaneous pen (Novolog Flexpen U-100 Insulin aspart) insulin glargine 100 unit/mL 90 unit subcut DAILY 06/17/22 06/17/22 subcutaneous solution (Lantus U-100 Insulin) metformin 1,000 mg tablet 1 tab PO BID 06/17/22 06/17/22 metoprolol succinate 50 mg 1 tab PO DAILY 06/17/22 06/17/22 tablet,extended release 24 hr nifedipine 30 mg tablet,extended 1 tab PO DAILY 06/17/22 06/17/22 release 24 hr tamsulosin 0.4 mg capsule 1 cap PO DAILY 06/17/22 06/17/22 Allergies Allergy/AdvReac Type Severity Reaction Status Date / Time No Known Allergies Allergy Verified 02/01/22 12:12 [No Known Allergies*] Review of Systems Review of Systems: All other systems are reviewed and are negative Constitutional: Reports as per HPI and Reports no additional constitutional complaints Eyes: Reports as per HPI and Reports no additional eye complaints Reports system reviewed and no additional complaints, except as documented Cardiovascular: Reports as per HPI and Reports no additional cardiovascular complaints Respiratory: Reports as per HPI and Reports no additional respiratory complaints Gastrointestinal: Reports as per HPI and Reports no additional gastrointestinal complaints Genitourinary: Reports no additional female genitourinary complaints Musculoskeletal: Reports no additional musculoskeletal complaints Skin/Breast: Reports system reviewed and no additional complaints, except as docu Psychiatric: Reports no additional psychiatric complaints Endocrine: Reports no additional endocrine complaints Hematologic/Lymphatic: Reports no additional hematologic/lymphatic complaints Allergic/Immunologic: Reports no additional allergic/immunologic complaints Reports system reviewed and no additional complaints, except as documented and Reports Abnormal speech present [facility] Past Medical History Medical History Chronic anemia CKD (chronic kidney disease) Diabetes Diabetes type 2, controlled Diabetic infection of left foot Fever of unknown origin History of prostate cancer Opioid use disorder Osteomyelitis PAD (peripheral artery disease) Social History Social History Household Members: Family Housing: Apartment Do you presently have visiting nurse or other home services: No Alcohol intake: never Patient Tobacco Use Status: Never used Tobacco Smoked in Last 30 Days: No Use of substances other than those prescribed or required for medical reasons: Yes Substance Use Type: Opiates Advance Directives: No service: No Current occupational status: disabled Physical Exam ED Vital Signs: Vital Signs - 24 hr 06/17/22 02:41 06/17/22 04:25 06/17/22 05:20 Temperature 98.5 F 98.6 F 98.2 F Pulse Rate 85 91 79 Respiratory Rate 16 19 11 L Blood Pressure 99/60 114/56 L 101/53 L Pulse Oximetry 100 99 Oxygen Delivery Method Room Air Room Air 06/17/22 05:35 06/17/22 05:57 Temperature 98.5 F 98.6 F Pulse Rate 79 77 Respiratory Rate 11 L 16 Blood Pressure 110/56 L 112/58 L Pulse Oximetry 96 Oxygen Delivery Method Room Air BMI result Body Mass Index 36.0 Vital signs have been reviewed as appeared to be correct. Blood pressure normal. Heart rate normal. Respiration rate normal. Temperature normal. Oxygen saturation normal. Appearance: Pale, No acute distress. Head: Normal external exam. Normocephalic. Atraumatic. No Irizarry signs noted. No raccoon eyes noted Eyes: PERRLA. EOMI. Conjunctiva and sclera normal. Eyelids normal. ENT: TM's Normal. Pharynx normal. Uvula midline. Moist mucous membranes. No trismus noted. No drooling noted. No muffled voice noted. Neck: Normal inspection. Neck supple. FROM. No adenopathy. Thyroid Normal. No meningeal signs. No neck mass noted. CVS: Normal heart rate and rhythm. Heart sound normal. No murmurs noted. Pulses normal throughout. Respiratory: No respiratory distress. Painless inspiration. Breath sounds normal. No wheezes/rales/rhonchi noted. Chest nontender. No accessory muscle usage noted or decreased air movement noted. Abdomen: Soft and nontender. Bowel sounds normal in all 4 quadrants. No distention noted. No organomegaly noted. No visible injury noted. Back: No CVA tenderness. Full range of motion noted. Skin: Skin warm and dry. Normal skin color. Normal skin turgor. No rashes/lesions/lacerations noted. Extremities: No lower extremity edema. Extremities exhibit normal range of motion. Extremities nontender. Neuro: Oriented X 3. Cranial nerve exam: II-XII are grossly intact No motor deficit. No sensory deficit. Reflexes normal. Course Course Course Narrative: 56-year-old male with persistent hypoglycemia, patient been suffering from blurry vision and visual problem he does not see well, likely patient overdosed his insulin by accident which it can cause this persistent hypoglycemia (in the 80s which is too low for this patient) despite patient was given multiple oral juice and sandwich. No GI bleed no active source of bleeding, patient was chronic anemia him a globin is 7.1 today will transfuse 1 unit of RBCs. Admit the patient for monitoring blood sugar. Medical Decision Making Medical Records Medical records reviewed: Yes I reviewed the patient's medical records. Lab Data Lab results reviewed: Yes I reviewed the patient's lab results. Result diagrams: 06/17/22 03:04 06/17/22 03:04 Labs: Lab Results 06/17/22 06/17/22 06/17/22 Range/Units 02:43 03:04 03:04 WBC 10.4 (4.8-10.8) X10*3/uL RBC 2.67 L (4.60-5.80) X10*6/uL Hgb 7.1 L (14.0-18.0) g/dl Hct 22.9 L (42.0-52.0) % MCV 85.8 (80.0-98.0) fL MCH 26.6 L (27.0-33.0) pg MCHC 31.0 (31.0-36.0) g/dl RDW 17.3 H (11.0-16.0) % Plt Count 248 D (160-400) X10*3/uL MPV 10.9 (9.4-12.4) fL Immature Gran % (Auto) 0.6 H (0.0-0.4) % Neut % (Auto) 66.8 (45-73) % Lymph % (Auto) 22.0 (20-40) % [place] % (Auto) 8.3 (2-11) % Eos % (Auto) 2.0 (0-4) % Baso % (Auto) 0.3 (0-2) % Lymph # (Auto) 2.3 (1.2-4.9) X10*3/uL [place] # (Auto) 0.9 (0.1-1.2) X10*3/uL Eos # (Auto) 0.2 (0.0-0.4) X10*3/uL Baso # (Auto) 0.0 (0.0-0.2) X10*3/uL Abs Immat Gran (auto) 0.06 H (0.00-0.03) X10*3/uL Absolute Neuts (auto) 6.9 (2.0-8.3) x10*3/uL Absolute Nucleated RBC 0.000 (0.0-0.012) X10*3/uL Nucleated RBC % (auto) 0.0 (0.0-0.2) /100WBC Sodium 139 (135-145) mmol/L Potassium 5.5 H D (3.3-5.1) mmol/L Chloride 104 (96-108) mmol/L Carbon Dioxide 25 (22-29) mmol/L Anion Gap 16 (12-20) BUN 34 H (9-16) mg/dL Creatinine 1.76 H (0.5-1.4) mg/dL Estim Creat Clear Calc 53.9 Estimated GFR 40 POC Glucose 84 (60-115) mg/dL Random Glucose 73 (60-115) mg/dL Calcium 8.5 (8.4-10.2) mg/dL Total Bilirubin < 0.2 (0.0-1.0) mg/dL Direct Bilirubin < 0.2 (0.0-0.5) mg/dL AST 12 (5-37) U/L ALT 7 (0-40) U/L Alkaline Phosphatase 73 (39-117) U/L Troponin I High Sens (<3.5-35.0) ng/L Total Protein 6.8 (6.5-8.0) g/dL Albumin 3.1 L (3.5-5.0) g/dL Lipase 6 L (8-78) U/L COVID-19 (JOSE DAVID) (Negative) COVID-19 Clin Com Blood Type Antibody Screen Crossmatch 06/17/22 06/17/22 06/17/22 Range/Units 03:04 03:04 04:03 WBC (4.8-10.8) X10*3/uL RBC (4.60-5.80) X10*6/uL Hgb (14.0-18.0) g/dl Hct (42.0-52.0) % MCV (80.0-98.0) fL MCH (27.0-33.0) pg MCHC (31.0-36.0) g/dl RDW (11.0-16.0) % Plt Count (160-400) X10*3/uL MPV (9.4-12.4) fL Immature Gran % (Auto) (0.0-0.4) % Neut % (Auto) (45-73) % Lymph % (Auto) (20-40) % [place] % (Auto) (2-11) % Eos % (Auto) (0-4) % Baso % (Auto) (0-2) % Lymph # (Auto) (1.2-4.9) X10*3/uL [place] # (Auto) (0.1-1.2) X10*3/uL Eos # (Auto) (0.0-0.4) X10*3/uL Baso # (Auto) (0.0-0.2) X10*3/uL Abs Immat Gran (auto) (0.00-0.03) X10*3/uL Absolute Neuts (auto) (2.0-8.3) x10*3/uL Absolute Nucleated RBC (0.0-0.012) X10*3/uL Nucleated RBC % (auto) (0.0-0.2) /100WBC Sodium (135-145) mmol/L Potassium (3.3-5.1) mmol/L Chloride (96-108) mmol/L Carbon Dioxide (22-29) mmol/L Anion Gap (12-20) BUN (9-16) mg/dL Creatinine (0.5-1.4) mg/dL Estim Creat Clear Calc Estimated GFR POC Glucose (60-115) mg/dL Random Glucose (60-115) mg/dL Calcium (8.4-10.2) mg/dL Total Bilirubin (0.0-1.0) mg/dL Direct Bilirubin (0.0-0.5) mg/dL AST (5-37) U/L ALT (0-40) U/L Alkaline Phosphatase (39-117) U/L Troponin I High Sens < 3.5 (<3.5-35.0) ng/L Total Protein (6.5-8.0) g/dL Albumin (3.5-5.0) g/dL Lipase (8-78) U/L COVID-19 (JOSE DAVID) Negative (Negative) COVID-19 Clin Com See Note Blood Type AB Positive Antibody Screen NEGATIVE Crossmatch See Detail 06/17/22 06/17/22 Range/Units 04:33 05:59 WBC (4.8-10.8) X10*3/uL RBC (4.60-5.80) X10*6/uL Hgb (14.0-18.0) g/dl Hct (42.0-52.0) % MCV (80.0-98.0) fL MCH (27.0-33.0) pg MCHC (31.0-36.0) g/dl RDW (11.0-16.0) % Plt Count (160-400) X10*3/uL MPV (9.4-12.4) fL Immature Gran % (Auto) (0.0-0.4) % Neut % (Auto) (45-73) % Lymph % (Auto) (20-40) % [place] % (Auto) (2-11) % Eos % (Auto) (0-4) % Baso % (Auto) (0-2) % Lymph # (Auto) (1.2-4.9) X10*3/uL [place] # (Auto) (0.1-1.2) X10*3/uL Eos # (Auto) (0.0-0.4) X10*3/uL Baso # (Auto) (0.0-0.2) X10*3/uL Abs Immat Gran (auto) (0.00-0.03) X10*3/uL Absolute Neuts (auto) (2.0-8.3) x10*3/uL Absolute Nucleated RBC (0.0-0.012) X10*3/uL Nucleated RBC % (auto) (0.0-0.2) /100WBC Sodium (135-145) mmol/L Potassium (3.3-5.1) mmol/L Chloride (96-108) mmol/L Carbon Dioxide (22-29) mmol/L Anion Gap (12-20) BUN (9-16) mg/dL Creatinine (0.5-1.4) mg/dL Estim Creat Clear Calc Estimated GFR POC Glucose 80 85 (60-115) mg/dL Random Glucose (60-115) mg/dL Calcium (8.4-10.2) mg/dL Total Bilirubin (0.0-1.0) mg/dL Direct Bilirubin (0.0-0.5) mg/dL AST (5-37) U/L ALT (0-40) U/L Alkaline Phosphatase (39-117) U/L Troponin I High Sens (<3.5-35.0) ng/L Total Protein (6.5-8.0) g/dL Albumin (3.5-5.0) g/dL Lipase (8-78) U/L COVID-19 (JOSE DAVID) (Negative) COVID-19 Clin Com Blood Type Antibody Screen Crossmatch Imaging Data Chest x-ray: Attestation: I personally reviewed and interpreted this imaging study as follows: Radiologist's impression: No acute cardiopulmonary findings. Discharge Plan Discharge Clinical Impression: Anemia, Hypoglycemia due to insulin Patient Disposition: Admitted As Inpatient
[2022-06-17 02:47] LABS: Glucose, Whole Blood 84 mg/dL (60-115)
[2022-06-17 03:08] LABS: Basophils Percent Auto 0.3 % (0-2); Eosinophils Absolute Auto 0.2 X10*3/uL (0.0-0.4); Hematocrit 22.9 % (42.0-52.0); Hemoglobin 7.1 g/dl (14.0-18.0); Imm Gran Abs Auto 0.06 X10*3/uL (0.00-0.03); Imm Gran Pct Auto 0.6 % (0.0-0.4); Lymphocytes Absolute Auto 2.3 X10*3/uL (1.2-4.9); Mean Corpuscular Hemoglobin 26.6 pg (27.0-33.0); Mean Corpuscular Volume 85.8 fL (80.0-98.0); Mean Platelet Volume 10.9 fL (9.4-12.4); Monocytes Absolute Auto 0.9 X10*3/uL (0.1-1.2); Monocytes Percent Auto 8.3 % (2-11); Neutrophils Absolute Auto 6.9 x10*3/uL (2.0-8.3); Neutrophils Percent Auto 66.8 % (45-73); Platelet Count 248 X10*3/uL (160-400); Red Blood Count 2.67 X10*6/uL (4.60-5.80); Red Cell Distribution Width 17.3 % (11.0-16.0); White Blood Count 10.4 X10*3/uL (4.8-10.8)
[2022-06-17 03:09] LABS: MANUAL DIFF FLAG NO
[2022-06-17 03:24] LABS: COVID-19 Test Negative (Negative)
[2022-06-17 03:29] LABS: Troponin-I High Sensitivity < 3.5 ng/L (<3.5-35.0)
[2022-06-17 03:50] LABS: Alanine Aminotransferase 7 U/L (0-40); Albumin Level 3.1 g/dL (3.5-5.0); Alkaline Phosphatase 73 U/L (39-117); Anion Gap 16 (12-20); Aspartate Amino Transferase 12 U/L (5-37); Bilirubin Direct < 0.2 mg/dL (0.0-0.5); Bilirubin Total < 0.2 mg/dL (0.0-1.0); Blood Urea Nitrogen 34 mg/dL (9-16); Calcium 8.5 mg/dL (8.4-10.2); Carbon Dioxide 25 mmol/L (22-29); Chloride 104 mmol/L (96-108); Creatinine Clr Calc Pharmacy 53.9; Estimated Glomerular Filt Rate 40; Glucose Random 73 mg/dL (60-115); Potassium 5.5 mmol/L (3.3-5.1); Sodium 139 mmol/L (135-145); Total Protein 6.8 g/dL (6.5-8.0)
[2022-06-17 04:38] LABS: Glucose, Whole Blood 80 mg/dL (60-115)
[2022-06-17 05:45] LABS: Lipase 6 U/L (8-78)
[2022-06-17 06:03] LABS: Glucose, Whole Blood 85 mg/dL (60-115)
[2022-06-17] MEDS: Dextrose 50 % 25 GM/50 ML SYRINGE IVPUSH (06:44)
[2022-06-17] MEDS: Morphine Sulfate 2 MG/ML CARTRIDGE IVPUSH (07:12)
[2022-06-17 08:01] LABS: Glucose, Whole Blood 72 mg/dL (60-115)
[2022-06-17] MEDS: Dextrose 5 % and 0.9 % NaCl 1,000 ML 125 ML IVCONT ×2 (08:19→19:49)
--- NOTE | 2022-06-17 09:08 | P.HPHOSP_ITS ---
History of Present Illness Date of Service: 06/17/22 Attending physician on admission: Cristi [facility] Chief Complaint: dizziness, blurred vision 56-year-old male with history of chronic normocytic anemia, insulin-dependent type 2 diabetes, chronic kidney disease stage III, history of opiate use disorder on methadone patient denies recent use, peripheral artery disease with recent admission last month for osteomyelitis s/p transmetatarsal amputation left foot treated with levaquin and linezolid via Kim device which was removed, presented to the ED earlier today with blurred vision and dizziness on ongoing for about 2 weeks. He describes this is intermittent. States that he can see that someone or something is in front of him but is unable to make out details due to the blurriness and peripheral vision is limited. He states this is new. He does were glasses ?due to my diabetes? but is not compliant with this. He is not certain what ophthalmologic conditions he has. He also reports intermitternt parietal and frontal headache rated 4/10, nausea, nonbilious emesis. He has had progressively worsening weakness in the LLE ongoing for months, worth since amputation. No diplopia, fevers, chills, abdominal pain, dysphagia, slurred speech, new weakness, paresthesias, shortness of breath, syncope, palpitations, or chest pain. He states his sugars have been around 102-180 at home and reports compliance with medications. On arrival patient glucose 70-80, which is low for him. Started on D5NS and given 2amps D50. No leukocytosis. H/H 7.1/22.9%, slight decrease from baseline. Given 1 unit packed RBC. Creatinine 1.76, BUN 34-slightly above baseline but no true AMY. K 5.5. CXR negative for any acute cardiopulmonary findings. Patient has been noncompliant with follow ups with Dr. Brown and did present to the ED yesterday for wound dehiscence with junaid replaced. Reports 8.5/10 pain left foot/leg. Patient to be admitted for hypoglycemia with suspected accidental insulin overdose. Review of Systems Review of Systems: General: No fevers, malaise, unintentional weight loss HEENT: +blurred vision. No diplopia. Cardiovascular: No chest pain, palpitations, or leg edema Respiratory: No shortness of breath, wheezing, cough GI: +n/v. No abdominal pain, diarrhea, constipation, melena, hematochezia : No dysuria, hematuria, increased urinary frequency, decreased urinary output MSK: +pain LLE Neuro: +headaches. +weakness LLE. No paresthesias Skin: No rashes or lesions [facility] Medical History Chronic anemia CKD (chronic kidney disease) Diabetes Diabetes type 2, controlled Diabetic infection of left foot Fever of unknown origin History of prostate cancer Opioid use disorder Osteomyelitis PAD (peripheral artery disease) Family History (Updated 06/17/22 @ 09:33 by STACY May) Mother No pertinent family history Pertinent family history: Pt not agreeable to answering questions about family history Surgical History (Updated 06/17/22 @ 09:56 by STACY May) S/P transmetatarsal amputation of foot Social History Household Members: Spouse Housing: Apartment Do you presently have visiting nurse or other home services: Yes Alcohol intake: never Patient Tobacco Use Status: Never used Tobacco Smoked in Last 30 Days: No Use of substances other than those prescribed or required for medical reasons: No Substance Use Type: Opiates Currently Displaying Signs/Symptoms of Drug Intoxication Withdrawal: No Have you been hit, kicked, punched, or otherwise hurt by someone within the past year? If so, by whom?: No Do you feel safe in your current relationship?: Yes Is there a partner from a previous relationship who is making you feel unsafe now?: No Are you made to feel afraid or neglected: No [facility] Practices: rastafari Advance Directives: No Do you have thoughts of harming others: None Do you have a plan to hurt others: No Plan Recently lost weight without trying: No Nutrition Risks: No Nutritional Risk service: No Current occupational status: disabled Meds Allergies Allergy/AdvReac Type Severity Reaction Status Date / Time No Known Allergies Allergy Verified 02/01/22 12:12 [No Known Allergies*] Active Medications: Current Medications Acetaminophen (Acetaminophen 325 Mg Tablet) 650 mg PO Q6H PRN PRN Reason: Pain, Mild (Pain Scale 1-3) Enoxaparin Sodium (Enoxaparin Sodium 40 Mg/0.4 Ml Syringe) 40 mg SUBCUT Q24H [facility] Hydromorphone HCl (Hydromorphone Hcl 1 Mg/Ml Syringe) 0.25 mg IVPUSH Q4H PRN; Protocol PRN Reason: Pain, Severe (Pain Scale 7-10) Dextrose/Sodium Chloride (D5ns) 1,000 mls @ 125 mls/hr IVCONT .Q8H [facility] Last Admin: 06/17/22 08:19 Dose: 125 mls/hr Methadone HCl (Methadone Hcl 20 Mg/2 Ml Oral.Conc) 55 mg PO ONCE ONE Stop: 06/17/22 08:58 Oxycodone HCl (Oxycodone Hcl Immed Release 5 Mg Tablet) 5 mg PO Q6H PRN PRN Reason: Pain, Severe (Pain Scale 7-10) Pharmacy Consult (Consult Rx Perform Med Rec) 1 each MISCELLANE ONCE PRN PRN Reason: Consult order Sodium Chloride (0.9 % Sodium Chloride Flush 3 Ml Syringe) 3 ml IVFLUSH QSHIFT [facility] Home Medications Medication Instructions Recorded Confirmed Last Taken Type aspirin 81 mg chewable tablet 1 tab PO DAILY 06/17/22 06/17/22 Unknown History atorvastatin 10 mg tablet 1 tab PO DAILY 06/17/22 06/17/22 Unknown History citalopram 20 mg tablet 1 tab PO DAILY 06/17/22 06/17/22 Unknown History clopidogrel 75 mg tablet 1 tab PO DAILY 06/17/22 06/17/22 Unknown History ferrous sulfate 324 mg (65 mg 1 tab PO BID 06/17/22 06/17/22 Unknown History iron) tablet,delayed release insulin aspart U-100 100 unit/mL 0 sliding scale dose subcut DAILY 06/17/22 1 08/17/21 Unknown History (3 mL) subcutaneous pen (Novolog Flexpen U-100 Insulin aspart) insulin glargine 100 unit/mL 90 unit subcut DAILY 06/17/22 06/17/22 Unknown History subcutaneous solution (Lantus U-100 Insulin) lisinopril 20 mg tablet 20 mg PO DAILY 06/17/22 06/17/22 Unknown History metformin 1,000 mg tablet 1 tab PO BID 06/17/22 06/17/22 Unknown History methadone 10 mg/mL oral concentrate 55 mg PO DAILY 06/17/22 06/17/22 06/16/22 History metoprolol succinate 50 mg 1 tab PO DAILY 06/17/22 06/17/22 Unknown History tablet,extended release 24 hr nifedipine 30 mg tablet,extended 1 tab PO DAILY 06/17/22 06/17/22 Unknown History release 24 hr omeprazole 20 mg tablet,delayed 20 mg PO DAILY 06/17/22 06/17/22 Unknown History release tamsulosin 0.4 mg capsule 1 cap PO DAILY 06/17/22 06/17/22 Unknown History Physical Exam Vital Signs and Narrative: Vital Signs: Last Vital Signs Temp 98.4 F 06/17/22 07:01 Pulse 85 06/17/22 07:57 Resp 12 06/17/22 07:57 BP 125/73 06/17/22 07:57 Pulse Ox 96 06/17/22 07:57 O2 Del Method 06/17/22 07:57 BMI result Body Mass Index 36.0 Constitutional - Awake and Alert, No apparent distress Eyes - PERRLA, EOMI Cardiovascular - S1S2, RRR, No edema Respiratory - Normal lung expansion, Normal respiratory effort, No respiratory distress, CTA bilaterally Gastrointestinal - NT / ND; +BS; No rebound or guarding - No CVA tenderness Extremities - no calf tenderness bilaterally, no swelling Musculoskeletal - Left foot s/p transmetatarsal amputation nonhealing with junaid in place with small amount of sersanguinous drainage and scant purulent drainage. See photo. No surround erythema or warmth Skin - Warm/Dry Neurological - Alert & oriented x3, Pinpoint pupils, no convergence of eyes, limited range of motion b/l CN III, IV, , CN V, , VIII-XII in tact. 4/5 strength BUE and BLE Psychological - Appropriate affect Results Labs CBC and Chem 7: 06/18/22 05:57 06/18/22 05:57 Labs: Laboratory Results - last 24 hr 06/17/22 06/17/22 06/17/22 02:43 03:04 03:04 MCV 85.8 MCH 26.6 L MCHC 31.0 RDW 17.3 H Plt Count 248 D MPV 10.9 Immature Gran % (Auto) 0.6 H Neut % (Auto) 66.8 Lymph % (Auto) 22.0 Snyder % (Auto) 8.3 Eos % (Auto) 2.0 Baso % (Auto) 0.3 Lymph # (Auto) 2.3 Snyder # (Auto) 0.9 Eos # (Auto) 0.2 Baso # (Auto) 0.0 Abs Immat Gran (auto) 0.06 H Absolute Neuts (auto) 6.9 Absolute Nucleated RBC 0.000 Nucleated RBC % (auto) 0.0 Anion Gap 16 Estim Creat Clear Calc 53.9 Estimated GFR 40 POC Glucose 84 Random Glucose 73 Calcium 8.5 Total Bilirubin < 0.2 Direct Bilirubin < 0.2 AST 12 ALT 7 Alkaline Phosphatase 73 Troponin I High Sens Total Protein 6.8 Albumin 3.1 L Lipase 6 L COVID-19 (JOSE DAVID) COVID-[employer] Blood Type Antibody Screen Crossmatch 06/17/22 06/17/22 06/17/22 03:04 03:04 04:03 MCV MCH MCHC RDW Plt Count MPV Immature Gran % (Auto) Neut % (Auto) Lymph % (Auto) Snyder % (Auto) Eos % (Auto) Baso % (Auto) Lymph # (Auto) Snyder # (Auto) Eos # (Auto) Baso # (Auto) Abs Immat Gran (auto) Absolute Neuts (auto) Absolute Nucleated RBC Nucleated RBC % (auto) Anion Gap Estim Creat Clear Calc Estimated GFR POC Glucose Random Glucose Calcium Total Bilirubin Direct Bilirubin AST ALT Alkaline Phosphatase Troponin I High Sens < 3.5 Total Protein Albumin Lipase COVID-19 (JOSE DAVID) Negative [id number] See Note Blood Type AB Positive Antibody Screen NEGATIVE Crossmatch See Detail 06/17/22 06/17/22 06/17/22 04:33 05:59 07:56 MCV MCH MCHC RDW Plt Count MPV Immature Gran % (Auto) Neut % (Auto) Lymph % (Auto) Snyder % (Auto) Eos % (Auto) Baso % (Auto) Lymph # (Auto) Snyder # (Auto) Eos # (Auto) Baso # (Auto) Abs Immat Gran (auto) Absolute Neuts (auto) Absolute Nucleated RBC Nucleated RBC % (auto) Anion Gap Estim Creat Clear Calc Estimated GFR POC Glucose 80 85 72 Random Glucose Calcium Total Bilirubin Direct Bilirubin AST ALT Alkaline Phosphatase Troponin I High Sens Total Protein Albumin Lipase COVID-19 (JOSE DAVID) COVID-C[employer] Blood Type Antibody Screen Crossmatch Imaging Radiologist's Impressions: Impressions Chest X-Ray 06/17/22 03:32 IMPRESSION: No acute cardiopulmonary findings. Assessment and Plan (1) Wound infection: Status: Acute (2) S/P transmetatarsal amputation of foot: Status: Acute (3) Hypoglycemia due to insulin: Status: Acute (4) Anemia: Status: Acute Plan 56-year-old male with history of chronic normocytic anemia, insulin-dependent type 2 diabetes, chronic kidney disease stage III, history of opiate use disorder on methadone patient denies recent use, peripheral artery disease with recent admission last month for osteomyelitis s/p transmetatarsal amputation left foot treated with levaquin and linezolid via Kim device which was removed, admitted for hypoglycemia and infected wound left foot with dehiscence. #Hypoglycemia with uncontrolled type 2 diabetes -Glucose 70- 80 in ER, low for patient -Suspect possible accidental insulin overdose -would explain lightheadedness and blurred vision in the ED though patient has been experiencing symptoms for several weeks -continue D5 NS -hold insulin for now -POC glucose -hypoglycemia protocol in place # blurred vision, headache, and dizziness- ? r/t hypoglycemia, migraine headache, intracranial abnormality with abn CN exam -abnormal cranial nerve exam. No other focal neuro deficit -CT brain ordered -consider neurology referral if no improvement in symptoms -could also be related to patient headache. Analgesics p.r.n. -ondansetron p.r.n. for nausea #Wound infection L foot present on arrival with dehiscence s/p transmetatarsal amputation 1 month ago -Likely related to PAD -Vasuclar surgery consult placed. Has been noncompliant with outpt followups with vascular surgery post op -Defer antibiotics at this time until evaluated by vascular surgery -No sepsis/severe sepsis -pain management using some pain scale #Insulin dependence type 2 diabetes with hypoglycemia -As above -POC glucose -diabetic diet -hold on prandial insulin at this time -resume dose adjusted Lantus in the morning -hemoglobin A1c pending # chronic normocytic anemia- likely related to chronic kidney disease -received 1 unit packed red blood cells in the ED -denies any bleeding -follow CBC and BMP -continue telemetry # opiate use disorder -continue methadone # PAD -continue aspirin and Plavix DVT prophylaxis-Lovenox Full code Patient requires inpatient stay of at least 2 midnights due to hypoglycemia with suspected accidental insulin overdose requiring IV D5 NS and close monitoring for further hypoglycemia with transition back to home insulin dose once a ppropriate, normocytic anemia requiring transfusion, and wound infection left foot s/p transmetatarsal amputation 1 month ago requiring expert consultation and possible surgical revision. Quality Stroke Does the patient have a stroke diagnosis?: No VTE Prior VTE?: No VTE Risk Level:: Medical - moderate - high VTE Device Contraindication: Treatment Not Indicated VTE Drug Contraindication: N/A - Med Ordered
--- NOTE | 2022-06-17 09:41 | PHA.MEDREC ---
Pharmacy Consult ? Medication Reconciliation Pharmacy has reviewed the medication reconciliation completed by Loli. Patent use [facility]. Carvedilol and metoprolol were on home list, I removed carvedilol. Atrovastatin, methadone, omeprazole and lisinopril were added to the list. STACY Gould was updated on changes. Corinne Ramírez, MartinezD
[2022-06-17] MEDS: Aspirin 81 MG TAB.CHEW PO (09:50)
[2022-06-17] MEDS: Sodium Zirconium Cyclosilicate 10 GM POWD.PACK PO (09:50)
[2022-06-17] MEDS: Escitalopram Oxalate 10 MG TABLET PO (09:50)
[2022-06-17] MEDS: methADONE HCl 20 MG/2 ML ORAL.CONC 55 MG PO (09:51)
[2022-06-17] MEDS: Enoxaparin Sodium 40 MG/0.4 ML SYRINGE SUBCUT (09:51)
[2022-06-17 10:17] LABS: Estimated Average Glucose 206 mg/dL; Hemoglobin A1c % 8.8 %
[2022-06-17 10:33] LABS: Glucose, Whole Blood 133 mg/dL (60-115)
[2022-06-17 11:58] LABS: Glucose, Whole Blood 135 mg/dL (60-115)
[2022-06-17 12:37] LABS: Appearance Urine Clear; Color Urine Yellow; Glucose Urine UA Negative (Negative); Leukocyte Esterase Urine Negative (Negative); Nitrite Urine Negative (Negative); Urine Blood Negative (Negative); Urine Ketones Negative (Negative); Urine Protein Negative (Neg-Trace)
[2022-06-17 12:56] LABS: Glucose, Whole Blood 93 mg/dL (60-115)
[2022-06-17 13:00] LABS: Amphetamine Screen Urine Not Detected (Not Detect); Barbiturates, Urine Not Detected (Not Detect); Benzodiazepines Screen Urine Not Detected (Not Detect); Cannabinoid Screen Urine Not Detected (Not Detect); Cocaine Screen Urine Not Detected (Not Detect); Fentanyl, urine POSITIVE (Not Detect); Opiate Screen Urine POSITIVE (Not Detect); Phencyclidine Screen Urine Not Detected (Not Detect)
[2022-06-17 14:17] LABS: Glucose, Whole Blood 63 mg/dL (60-115)
--- NOTE | 2022-06-17 14:20 | PC.NURSE ---
sleeping and easily woken, skin wpd, eating lunch now, ns/d5 finished, poc 69, no signs of hypoglycemia
--- NOTE | 2022-06-17 14:56 | PC.NURSE ---
Pt arrived in overflow cursing and screaming that he did not want to be here, pt stated 'I have been here before, I don't want to be here, this is the morgue. Pt was verbally abusive to staff and security was called. Security offered that pt the option of leaving AMA unless he calmed down and stopped being abusive. The pt was moved to a closed room and has now calmed down. Pt is now tearful but quiet.
[2022-06-17 15:32] LABS: Glucose, Whole Blood 70 mg/dL (60-115)
[2022-06-17 18:57] LABS: Glucose, Whole Blood 80 mg/dL (60-115)
[2022-06-17] MEDS: Ferrous Sulfate 324 MG TABLET.DR PO (21:50)
--- NOTE | 2022-06-17 22:39 | PC.NURSE ---
patient uses c-pap at home,unable to bring his own,Dr. Beltrán notified
[2022-06-18] MEDS: Dextrose 5 % and 0.9 % NaCl 1,000 ML 125 ML IVCONT (03:38)
[2022-06-18 06:48] LABS: MANUAL DIFF FLAG NO
[2022-06-18 06:53] LABS: Basophils Percent Auto 0.4 % (0-2); Eosinophils Absolute Auto 0.2 X10*3/uL (0.0-0.4); Eosinophils Percent Auto 2.4 % (0-4); Hematocrit 25.4 % (42.0-52.0); Hemoglobin 8.2 g/dl (14.0-18.0); Imm Gran Abs Auto 0.03 X10*3/uL (0.00-0.03); Imm Gran Pct Auto 0.4 % (0.0-0.4); Lymphocytes Absolute Auto 2.1 X10*3/uL (1.2-4.9); Lymphocytes Percent Auto 26.2 % (20-40); Mean Corpuscular HGB Conc 32.3 g/dl (31.0-36.0); Mean Corpuscular Hemoglobin 27.6 pg (27.0-33.0); Mean Corpuscular Volume 85.5 fL (80.0-98.0); Mean Platelet Volume 11.2 fL (9.4-12.4); Monocytes Absolute Auto 0.8 X10*3/uL (0.1-1.2); Monocytes Percent Auto 9.9 % (2-11); Neutrophils Absolute Auto 4.9 x10*3/uL (2.0-8.3); Neutrophils Percent Auto 60.7 % (45-73); Platelet Count 214 X10*3/uL (160-400); Red Blood Count 2.97 X10*6/uL (4.60-5.80); White Blood Count 8.1 X10*3/uL (4.8-10.8)
[2022-06-18 07:04] VITALS: BP 167/77; PULSE 76; RESP 18; TEMP 36.4; O2SAT 99
[2022-06-18 07:19] LABS: Glucose, Whole Blood 190 mg/dL (60-115)
[2022-06-18 07:48] LABS: Anion Gap 12 (12-20); Blood Urea Nitrogen 25 mg/dL (9-16); Calcium 8.3 mg/dL (8.4-10.2); Carbon Dioxide 24 mmol/L (22-29); Chloride 107 mmol/L (96-108); Creatinine Clr Calc Pharmacy 58.9; Estimated Glomerular Filt Rate 45; Glucose Random 210 mg/dL (60-115); Potassium 4.9 mmol/L (3.3-5.1); Sodium 138 mmol/L (135-145)
[2022-06-18] MEDS: Aspirin 81 MG TAB.CHEW PO (07:55)
[2022-06-18] MEDS: NIFEdipine ER 30 MG TAB.ER.24 PO (07:56)
[2022-06-18] MEDS: Metoprolol Succinate ER 50 MG TAB.ER.24H PO (07:56)
[2022-06-18] MEDS: Ferrous Sulfate 324 MG TABLET.DR PO ×2 (07:56→20:41)
[2022-06-18] MEDS: Omeprazole 20 MG CAPSULE.DR PO (07:56)
[2022-06-18] MEDS: Tamsulosin HCL 0.4 MG CAPSULE PO (07:56)
[2022-06-18] MEDS: Atorvastatin Calcium 10 MG TABLET PO (07:56)
[2022-06-18] MEDS: Clopidogrel Bisulfate 75 MG TABLET PO (07:56)
[2022-06-18] MEDS: Escitalopram Oxalate 10 MG TABLET PO (07:56)
[2022-06-18] MEDS: lisinopriL 20 MG TABLET PO (07:56)
[2022-06-18] MEDS: Insulin Lispro 100 UNIT/ML 3 ML VIAL SUBCUT ×3 (07:57→16:59)
[2022-06-18] MEDS: Insulin Glargine,Hum.rec.anlog 100 UNIT/ML 10 ML VIAL 68 UNIT SUBCUT (07:57)
[2022-06-18] MEDS: methADONE HCl 20 MG/2 ML ORAL.CONC 55 MG PO (07:57)
[2022-06-18] MEDS: oxyCODONE HCl Immed Release 5 MG TABLET PO ×2 (08:07→15:17)
[2022-06-18] MEDS: Enoxaparin Sodium 40 MG/0.4 ML SYRINGE SUBCUT (08:07)
--- NOTE | 2022-06-18 11:10 | PM.CNGS ---
History of Present Illness Consult details Consult date: 06/18/22 Reason for consult: wound care Narrative: Very pleasant poorly controlled 56-year-old diabetic gentleman presented to the hospital for follow-up. He actually had an episode of blurry vision. Of note he has had a prior left transmetatarsal amputation on 05/20/2022. He had missed several office appointments for postop check. He presented to the emergency room a day or 2 ago. No significant findings at that time. He re-presented with blurry vision. Was subsequently admitted. Appears to be doing relatively well from that perspective now. He is now for check of his transmetatarsal amputation Review of Systems Review of Systems: Yes all other systems are reviewed and are negative Constitutional: Constitutional: Reports no additional constitutional complaints ENT: Reports Normal hearing present Cardiovascular: Cardiovascular: Denies chest pain, Denies chest pain at rest, Denies chest pain with activity and Denies pedal edema Respiratory: Respiratory: Denies cough Gastrointestinal: Gastrointestinal: Denies abdominal pain Musculoskeletal: Musculoskeletal: Denies abnormal gait, Denies muscle cramps and Denies radiating pain into limb Integumentary/Breasts: Skin/Breast: Denies skin ulcer and Denies wounds Neurologic: Reports Normal hearing present and Denies abnormal gait Psychiatric: Psychiatric: Reports no additional psychiatric complaints PMFSH Past Medical History Medical History Chronic anemia CKD (chronic kidney disease) Diabetes Diabetes type 2, controlled Diabetic infection of left foot Fever of unknown origin History of prostate cancer Opioid use disorder Osteomyelitis PAD (peripheral artery disease) Family History Family History (Updated 06/17/22 @ 09:33 by STACY May) Mother No pertinent family history Surgical History Surgical History (Updated 06/17/22 @ 09:56 by STACY May) S/P transmetatarsal amputation of foot Social History Social History Household Members: Spouse Housing: Apartment Do you presently have visiting nurse or other home services: Yes Alcohol intake: never Patient Tobacco Use Status: Never used Tobacco Smoked in Last 30 Days: No Use of substances other than those prescribed or required for medical reasons: No Substance Use Type: Opiates Currently Displaying Signs/Symptoms of Drug Intoxication Withdrawal: No Have you been hit, kicked, punched, or otherwise hurt by someone within the past year? If so, by whom?: No Do you feel safe in your current relationship?: Yes Is there a partner from a previous relationship who is making you feel unsafe now?: No Are you made to feel afraid or neglected: No Nondenominational Healthcare Practices: evangelical Advance Directives: No Do you have thoughts of harming others: None Do you have a plan to hurt others: No Plan Recently lost weight without trying: No Nutrition Risks: No Nutritional Risk service: No Current occupational status: disabled [employer] Allergies Allergy/AdvReac Type Severity Reaction Status Date / Time No Known Allergies Allergy Verified 02/01/22 12:12 [No Known Allergies*] Active Medications: Current Medications Acetaminophen (Acetaminophen 325 Mg Tablet) 650 mg PO Q6H PRN PRN Reason: Pain, Mild (Pain Scale 1-3) Aspirin (Aspirin 81 Mg Tab.Chew) 81 mg PO DAILY [facility] Last Admin: 06/18/22 07:55 Dose: 81 mg Atorvastatin Calcium (Atorvastatin Calcium 10 Mg Tablet) 10 mg PO DAILY [facility] Last Admin: 06/18/22 07:56 Dose: 10 mg Clopidogrel Bisulfate (Clopidogrel Bisulfate 75 Mg Tablet) 75 mg PO DAILY [facility] Last Admin: 06/18/22 07:56 Dose: 75 mg Dextrose (Dextrose 50 % 25 Gm/50 Ml Syringe) 25 gm IVPUSH Q15M PRN; Protocol PRN Reason: per Hypoglycemia Standing Ord. Enoxaparin Sodium (Enoxaparin Sodium 40 Mg/0.4 Ml Syringe) 40 mg SUBCUT Q24H [facility] Last Admin: 06/18/22 08:07 Dose: 40 mg Escitalopram Oxalate (Escitalopram Oxalate 10 Mg Tablet) 10 mg PO DAILY [facility] Last Admin: 06/18/22 07:56 Dose: 10 mg Ferrous Sulfate (Ferrous Sulfate 324 Mg Tablet.Dr) 324 mg PO BID [facility] Last Admin: 06/18/22 07:56 Dose: 324 mg Glucose (Glucose Gel 15 Gm Gel..Gram.) 15 gm PO Q15M PRN; Protocol PRN Reason: per Hypoglycemia Standing Ord. Hydromorphone HCl (Hydromorphone Hcl 1 Mg/Ml Syringe) 0.25 mg IVPUSH Q4H PRN; Protocol PRN Reason: Pain, Severe (Pain Scale 7-10) Dextrose/Sodium Chloride (D5ns) 1,000 mls @ 125 mls/hr IVCONT .Q8H [facility] Last Admin: 06/18/22 03:38 Dose: 125 mls/hr Insulin Glargine (Insulin Glargine,Hum.Rec.Anlog 100 Unit/Ml 10 Ml Vial) 68 unit SUBCUT DAILY [facility] Last Admin: 06/18/22 07:57 Dose: 68 unit Insulin Human Lispro (Insulin Lispro 100 Unit/Ml 3 Ml Vial) 0 unit SUBCUT QIDACHS [facility]; Protocol Last Admin: 06/18/22 07:57 Dose: 2 unit Lisinopril (Lisinopril 20 Mg Tablet) 20 mg PO DAILY [facility]; Protocol Last Admin: 06/18/22 07:56 Dose: 20 mg Methadone HCl (Methadone Hcl 20 Mg/2 Ml Oral.Conc) 55 mg PO DAILY [facility] Last Admin: 06/18/22 07:57 Dose: 55 mg Metoprolol Succinate (Metoprolol Succinate Er 50 Mg Tab.Er.24h) 50 mg PO DAILY [facility]; Protocol Last Admin: 06/18/22 07:56 Dose: 50 mg Nifedipine (Nifedipine Er 30 Mg Tab.Er.24) 30 mg PO DAILY [facility]; Protocol Last Admin: 06/18/22 07:56 Dose: 30 mg Omeprazole (Omeprazole 20 Mg Capsule.Dr) 20 mg PO DAILY [facility] Last Admin: 06/18/22 07:56 Dose: 20 mg Oxycodone HCl (Oxycodone Hcl Immed Release 5 Mg Tablet) 5 mg PO Q6H PRN PRN Reason: Pain, Severe (Pain Scale 7-10) Last Admin: 06/18/22 08:07 Dose: 5 mg Pharmacy Consult (Consult Rx Perform Med Rec) 1 each MISCELLANE ONCE PRN PRN Reason: Consult order Sodium Chloride (0.9 % Sodium Chloride Flush 3 Ml Syringe) 3 ml IVFLUSH QSHIFT [facility] Last Admin: 06/18/22 07:57 Dose: Not Given Tamsulosin HCl (Tamsulosin Hcl 0.4 Mg Capsule) 0.4 mg PO DAILY [facility] Last Admin: 06/18/22 07:56 Dose: 0.4 mg Home Medications Medication Instructions Recorded Confirmed Last Taken Type aspirin 81 mg chewable tablet 1 tab PO DAILY 06/17/22 06/17/22 Unknown History atorvastatin 10 mg tablet 1 tab PO DAILY 06/17/22 06/17/22 Unknown History citalopram 20 mg tablet 1 tab PO DAILY 06/17/22 06/17/22 Unknown History clopidogrel 75 mg tablet 1 tab PO DAILY 06/17/22 06/17/22 Unknown History ferrous sulfate 324 mg (65 mg 1 tab PO BID 06/17/22 06/17/22 Unknown History iron) tablet,delayed release insulin aspart U-100 100 unit/mL 0 sliding scale dose subcut DAILY 06/17/22 06/17/22 Unknown History (3 mL) subcutaneous pen (Novolog Flexpen U-100 Insulin aspart) insulin glargine 100 unit/mL 90 unit subcut DAILY 06/17/22 06/17/22 Unknown History subcutaneous solution (Lantus U-100 Insulin) lisinopril 20 mg tablet 20 mg PO DAILY 06/17/22 06/17/22 Unknown History metformin 1,000 mg tablet 1 tab PO BID 06/17/22 06/17/22 Unknown History methadone 10 mg/mL oral concentrate 55 mg PO DAILY 06/17/22 06/17/22 06/16/22 History metoprolol succinate 50 mg 1 tab PO DAILY 06/17/22 06/17/22 Unknown History tablet,extended release 24 hr nifedipine 30 mg tablet,extended 1 tab PO DAILY 06/17/22 06/17/22 Unknown History release 24 hr omeprazole 20 mg tablet,delayed 20 mg PO DAILY 06/17/22 06/17/22 Unknown History release tamsulosin 0.4 mg capsule 1 cap PO DAILY 06/17/22 06/17/22 Unknown History Physical Exam Vital Signs: Vital Signs: Last Vital Signs Temp 97.5 F 06/18/22 07:04 Pulse 76 06/18/22 07:04 Resp 18 06/18/22 07:04 BP 167/77 H 06/18/22 07:04 Pulse Ox 99 06/18/22 07:04 O2 Del Method 06/18/22 07:04 BMI result Body Mass Index 36.0 Const: General: cooperative, healthy appearing and comfortable Orientation/consciousness: oriented to person, oriented to place and oriented to time HEENT: Head: Yes normal to inspection Neck: Neck: Yes normal visual inspection Carotids: no bruits Chest: Chest palpation & inspection: normal inspection of the chest Resp: Effort & Inspection: normal respiratory effort and able to speak in complete sentences Auscultation: clear to auscultation bilaterally, no crackles, no rales, no rhonchi and no wheezes Cardio: Rate: regular rate Rhythm: regular rhythm Heart sounds: S1 normal heart sound present and S2 normal heart sound present Bruits: no carotid bruits Peripheral pulses: Peripheral pulses 2+ throughout GI: Inspection: Yes normal to inspection Skin: Other: Amp site incision poorly healing lateral aspect with dry eschar. Overall flap has a reasonable take. Junaid removed sutures approximately 5 were left behind Wounds: no wounds Hair: normal Neuro: General: oriented to person, oriented to place and oriented to time Cranial nerves: Yes CN's II-XII intact bilaterally and Yes Normal hearing present Cognition (Neuro): normal cognition Motor exam (neuro): 5/5 motor strength present throughout Extrem: Other: venous exam: No significant superficial varicosities or spider telangiectasias, minimal edema General: No clubbing, No cyanosis and No edema Psych: Appearance: grossly normal Mental Status: mental status grossly normal Speech and movement: Normal speech and movement present Results Labs Result diagrams: 06/18/22 05:57 06/18/22 05:57 Labs: Abnormal lab results 06/17/22 06/17/22 06/18/22 Range/Units 11:54 12:26 05:57 RBC 2.97 L (4.60-5.80) X10*6/uL Hgb 8.2 L (14.0-18.0) g/dl Hct 25.4 L (42.0-52.0) % RDW 17.0 H (11.0-16.0) % BUN (9-16) mg/dL Creatinine (0.5-1.4) mg/dL POC Glucose 135 H (60-115) mg/dL Random Glucose (60-115) mg/dL Calcium (8.4-10.2) mg/dL Urine Opiates Screen POSITIVE H (Not Detect) Urine Fentanyl Screen POSITIVE H (Not Detect) 06/18/22 06/18/22 Range/Units 05:57 07:10 RBC (4.60-5.80) X10*6/uL Hgb (14.0-18.0) g/dl Hct (42.0-52.0) % RDW (11.0-16.0) % BUN 25 H (9-16) mg/dL Creatinine 1.61 H (0.5-1.4) mg/dL POC Glucose 190 H (60-115) mg/dL Random Glucose 210 H (60-115) mg/dL Calcium 8.3 L (8.4-10.2) mg/dL Urine Opiates Screen (Not Detect) Urine Fentanyl Screen (Not Detect) Short CBC 06/18/22 Range/Units 05:57 WBC 8.1 (4.8-10.8) X10*3/uL Hgb 8.2 L (14.0-18.0) g/dl Hct 25.4 L (42.0-52.0) % Plt Count 214 (160-400) X10*3/uL BMP 06/18/22 05:57 Sodium 138 Potassium 4.9 Chloride 107 Carbon Dioxide 24 BUN 25 H Creatinine 1.61 H Calcium 8.3 L Urine 06/17/22 Range/Units 12:26 Urine Color Yellow Urine Appearance Clear Urine pH 6.0 (5.0-9.0) Ur Specific [place] 1.010 (1.005-1.025) Urine Protein Negative (Neg-Trace) mg/dL Urine Glucose (UA) Negative (Negative) mg/dL All other labs normal. Assessment and Plan (1) S/P transmetatarsal amputation of foot: Status: Acute Plan In short patient is doing relatively well. Status post left transmetatarsal amputation. Although the incision line is healing poorly. The flap does appear to be taking. Suit sugars remain behind but junaid were removed. Offloading was discussed with the patient. He is stable from my perspective for discharge. He can see me as an outpatient in approximately 2 weeks time. Thank you for allowing us to assist in his care. If there are any questions or concerns please do not hesitate to contact us. Procedures Date of Service Date of Service: 06/18/22
[2022-06-18 11:12] LABS: Glucose, Whole Blood 191 mg/dL (60-115)
--- NOTE | 2022-06-18 11:51 | P.PNIM_ITS ---
Subjective Subjective Date of Service: 06/18/22 Interval History: f/u on on dizziness interval history: still c/o blurry vision in one eye Review of Systems blury vision Physical Exam Vital Signs: Vital Signs: Last Vital Signs Temp 97.5 F 06/18/22 07:04 Pulse 76 06/18/22 07:04 Resp 18 06/18/22 07:04 BP 167/77 H 06/18/22 07:04 Pulse Ox 99 06/18/22 07:04 O2 Del Method 06/18/22 07:04 BMI result Body Mass Index 36.0 Const: Other: Constitutional - Awake and Alert, No apparent distress Eyes - PERRLA, EOMI Cardiovascular - S1S2, RRR, No edema Respiratory - Normal lung expansion, Normal respiratory effort, No respiratory distress, CTA bilaterally Gastrointestinal - NT / ND; +BS; No rebound or guarding - No CVA tenderness Extremities - no calf tenderness bilaterally, no swelling Musculoskeletal - Left foot s/p transmetatarsal amputation nonhealing with junaid in place with small amount of sersanguinous drainage and scant purulent drainage. See photo. No surround erythema or warmth Skin - Warm/Dry--see picture from H and P Neurological - Alert & oriented x3, Pinpoint pupils, no convergence of eyes, limited range of motion b/l CN III, IV, , CN V, , VIII-XII in tact. 4/5 strength BUE and BLE Psychological - Appropriate affect Objective Data Active Medications Acetaminophen (Acetaminophen 325 Mg Tablet) 650 mg PO Q6H PRN PRN Reason: Pain, Mild (Pain Scale 1-3) Aspirin (Aspirin 81 Mg Tab.Chew) 81 mg PO DAILY [facility] Last Admin: 06/18/22 07:55 Dose: 81 mg Documented By: BRAD Atorvastatin Calcium (Atorvastatin Calcium 10 Mg Tablet) 10 mg PO DAILY [facility] Last Admin: 06/18/22 07:56 Dose: 10 mg Documented By: BRAD Clopidogrel Bisulfate (Clopidogrel Bisulfate 75 Mg Tablet) 75 mg PO DAILY [facility] Last Admin: 06/18/22 07:56 Dose: 75 mg Documented By: BRAD Dextrose (Dextrose 50 % 25 Gm/50 Ml Syringe) 25 gm IVPUSH Q15M PRN; Protocol PRN Reason: per Hypoglycemia Standing Ord. Enoxaparin Sodium (Enoxaparin Sodium 40 Mg/0.4 Ml Syringe) 40 mg SUBCUT Q24H [facility] Last Admin: 06/18/22 08:07 Dose: 40 mg Documented By: BRAD Escitalopram Oxalate (Escitalopram Oxalate 10 Mg Tablet) 10 mg PO DAILY [facility] Last Admin: 06/18/22 07:56 Dose: 10 mg Documented By: BRAD Ferrous Sulfate (Ferrous Sulfate 324 Mg Tablet.Dr) 324 mg PO BID [facility] Last Admin: 06/18/22 07:56 Dose: 324 mg Documented By: BRAD Glucose (Glucose Gel 15 Gm Gel..Gram.) 15 gm PO Q15M PRN; Protocol PRN Reason: per Hypoglycemia Standing Ord. Hydromorphone HCl (Hydromorphone Hcl 1 Mg/Ml Syringe) 0.25 mg IVPUSH Q4H PRN; Protocol PRN Reason: Pain, Severe (Pain Scale 7-10) Dextrose/Sodium Chloride (D5ns) 1,000 mls @ 125 mls/hr IVCONT .Q8H [facility] Last Infusion: 06/18/22 11:13 Dose: 0 mls/hr Documented By: BRAD Insulin Glargine (Insulin Glargine,Hum.Rec.Anlog 100 Unit/Ml 10 Ml Vial) 68 unit SUBCUT DAILY [facility] Last Admin: 06/18/22 07:57 Dose: 68 unit Documented By: BRAD Insulin Human Lispro (Insulin Lispro 100 Unit/Ml 3 Ml Vial) 0 unit SUBCUT QI DACHS [facility]; Protocol Last Admin: 06/18/22 07:57 Dose: 2 unit Documented By: BRAD Lisinopril (Lisinopril 20 Mg Tablet) 20 mg PO DAILY [facility]; Protocol Last Admin: 06/18/22 07:56 Dose: 20 mg Documented By: BRAD Methadone HCl (Methadone Hcl 20 Mg/2 Ml Oral.Conc) 55 mg PO DAILY [facility] Last Admin: 06/18/22 07:57 Dose: 55 mg Documented By: BRAD Metoprolol Succinate (Metoprolol Succinate Er 50 Mg Tab.Er.24h) 50 mg PO DAILY [facility]; Protocol Last Admin: 06/18/22 07:56 Dose: 50 mg Documented By: BRAD Nifedipine (Nifedipine Er 30 Mg Tab.Er.24) 30 mg PO DAILY [facility]; Protocol Last Admin: 06/18/22 07:56 Dose: 30 mg Documented By: BRAD Omeprazole (Omeprazole 20 Mg Capsule.) 20 mg PO DAILY [facility] Last Admin: 06/18/22 07:56 Dose: 20 mg Documented By: BRAD Oxycodone HCl (Oxycodone Hcl Immed Release 5 Mg Tablet) 5 mg PO Q6H PRN PRN Reason: Pain, Severe (Pain Scale 7-10) Last Admin: 06/18/22 08:07 Dose: 5 mg Documented By: BRAD Pharmacy Consult (Consult Rx Perform Med Rec) 1 each MISCELLANE ONCE PRN PRN Reason: Consult order Sodium Chloride (0.9 % Sodium Chloride Flush 3 Ml Syringe) 3 ml IVFLUSH QSHIFT [facility] Last Admin: 06/18/22 07:57 Dose: Not Given Documented By: BRAD Non-Admin Reason: No Insulin Coverage Tamsulosin HCl (Tamsulosin Hcl 0.4 Mg Capsule) 0.4 mg PO DAILY [facility] Last Admin: 06/18/22 07:56 Dose: 0.4 mg Documented By: BRAD Labs CBC & Chem 7: 06/18/22 05:57 06/18/22 05:57 Labs: Laboratory Results - last 24 hr 06/17/22 06/17/22 06/17/22 11:54 12:26 12:26 MCV MCH MCHC RDW Plt Count MPV Immature Gran % (Auto) Neut % (Auto) Lymph % (Auto) [place]lin % (Auto) Eos % (Auto) Baso % (Auto) Lymph # (Auto) [place]lin # (Auto) Eos # (Auto) Baso # (Auto) Abs Immat Gran (auto) Absolute Neuts (auto) Absolute Nucleated RBC Nucleated RBC % (auto) Anion Gap Estim Creat Clear Calc Estimated GFR POC Glucose 135 H Random Glucose Calcium Urine Color Yellow Urine Appearance Clear Urine pH 6.0 Ur Specific [place] 1.010 Urine Protein Negative Urine Glucose (UA) Negative Urine Ketones Negative Urine Blood Negative Urine Nitrite Negative Ur Leukocyte Esterase Negative Urine Opiates Screen POSITIVE H Urine Fentanyl Screen POSITIVE H Ur Barbiturates Screen Not Detected Ur Phencyclidine Scrn Not Detected Ur Amphetamines Screen Not Detected U Benzodiazepines Scrn Not Detected Urine Cocaine Screen Not Detected U Marijuana (THC) Screen Not Detected 06/17/22 06/17/22 06/17/22 12:53 14:13 15:24 MCV MCH MCHC RDW Plt Count MPV Immature Gran % (Auto) Neut % (Auto) Lymph % (Auto) [place]lin % (Auto) Eos % (Auto) Baso % (Auto) Lymph # (Auto) [place]lin # (Auto) Eos # (Auto) Baso # (Auto) Abs Immat Gran (auto) Absolute Neuts (auto) Absolute Nucleated RBC Nucleated RBC % (auto) Anion Gap Estim Creat Clear Calc Estimated GFR POC Glucose 93 63 70 Random Glucose Calcium Urine Color Urine Appearance Urine pH Ur Specific [place] Urine Protein Urine Glucose (UA) Urine Ketones Urine Blood Urine Nitrite Ur Leukocyte Esterase Urine Opiates Screen Urine Fentanyl Screen Ur Barbiturates Screen Ur Phencyclidine Scrn Ur Amphetamines Screen U Benzodiazepines Scrn Urine Cocaine Screen U Marijuana (THC) Screen 06/17/22 06/18/22 06/18/22 18:45 05:57 05:57 MCV 85.5 MCH 27.6 MCHC 32.3 RDW 17.0 H Plt Count 214 MPV 11.2 Immature Gran % (Auto) 0.4 Neut % (Auto) 60.7 Lymph % (Auto) 26.2 [place] % (Auto) 9.9 Eos % (Auto) 2.4 Baso % (Auto) 0.4 Lymph # (Auto) 2.1 [place]lin # (Auto) 0.8 Eos # (Auto) 0.2 Baso # (Auto) 0.0 Abs Immat Gran (auto) 0.03 Absolute Neuts (auto) 4.9 Absolute Nucleated RBC 0.000 Nucleated RBC % (auto) 0.0 Anion Gap 12 Estim Creat Clear Calc 58.9 Estimated GFR 45 POC Glucose 80 Random Glucose 210 H Calcium 8.3 L Urine Color Urine Appearance Urine pH Ur Specific [place] Urine Protein Urine Glucose (UA) Urine Ketones Urine Blood Urine Nitrite Ur Leukocyte Esterase Urine Opiates Screen Urine Fentanyl Screen Ur Barbiturates Screen Ur Phencyclidine Scrn Ur Amphetamines Screen U Benzodiazepines Scrn Urine Cocaine Screen U Marijuana (THC) Screen 06/18/22 06/18/22 07:10 11:08 MCV MCH MCHC RDW Plt Count MPV Immature Gran % (Auto) Neut % (Auto) Lymph % (Auto) [place] % (Auto) Eos % (Auto) Baso % (Auto) Lymph # (Auto) [place]lin # (Auto) Eos # (Auto) Baso # (Auto) Abs Immat Gran (auto) Absolute Neuts (auto) Absolute Nucleated RBC Nucleated RBC % (auto) Anion Gap Estim Creat Clear Calc Estimated GFR POC Glucose 190 H 191 H Random Glucose Calcium Urine Color Urine Appearance Urine pH Ur Specific [place] Urine Protein Urine Glucose (UA) Urine Ketones Urine Blood Urine Nitrite Ur Leukocyte Esterase Urine Opiates Screen Urine Fentanyl Screen Ur Barbiturates Screen Ur Phencyclidine Scrn Ur Amphetamines Screen U Benzodiazepines Scrn Urine Cocaine Screen U Marijuana (THC) Screen Assessment and Plan (1) S/P transmetatarsal amputation of foot: Status: Acute (2) Wound infection: Status: Acute Plan 56-year-old male with history of chronic normocytic anemia, insulin-dependent type 2 diabetes, chronic kidney disease stage III, history of opiate use disorder on methadone patient denies recent use, peripheral artery disease with recent admission last month for osteomyelitis s/p transmetatarsal amputation left foot treated with levaquin and linezolid via Kim device which was removed, admitted for hypoglycemia and infected wound left foot with dehiscence. #Hypoglycemia with uncontrolled type 2 diabetes -resolved # blurred vision, headache, and dizziness- ? r/t hypoglycemia, migraine headache, intracranial abnormality with abn CN exam -abnormal cranial nerve exam. No other focal neuro deficit -CT brain ordered no acute finding -since still there neuro consult #Wound infection L foot present on arrival with dehiscence s/p transmetatarsal amputation 1 month ago -Likely related to PAD -Vasuclar surgery consult placed. Has been noncompliant with outpt followups with vascular surgery post op -Defer antibiotics at this time until evaluated by vascular surgery -No sepsis/severe sepsis -pain management using some pain scale #Insulin dependence type 2 diabetes with hypoglycemia -As above -POC glucose -diabetic diet -hold on prandial insulin at this time -resume dose adjusted Lantus in the morning # chronic normocytic anemia- likely related to chronic kidney disease -received 1 unit packed red blood cells in the ED -denies any bleeding -follow CBC and BMP -continue telemetry # opiate use disorder -continue methadone # PAD -continue aspirin and Plavix DVT prophylaxis-Lovenox Full code need for inaptient: Uneplained blury vision, needs neuro eval Quality Stroke Does the patient have a stroke diagnosis?: No VTE Prior VTE?: No VTE Risk Level:: Medical - moderate - high VTE Device Contraindication: Treatment Not Indicated VTE Drug Contraindication: N/A - Med Ordered
--- NOTE | 2022-06-18 13:11 | W.PM.IDCN ---
History of Present Illness Data of Consult Service Date: 06/18/22 Requesting physician: Cristi Medrano Primary Care Provider: Twan Nunez MD HPI Reason for consult: left foot TMA ?infection He presents with blurry vision and was found to need adjustment glucose control. He noted bleeding of left TMA with some purulence. He was seen by Vascular and area appears not remarkable. Review of Systems Review of Systems: Yes all other systems are reviewed and are negative [facility] Past Medical History Medical History Chronic anemia CKD (chronic kidney disease) Diabetes Diabetes type 2, controlled Diabetic infection of left foot Fever of unknown origin History of prostate cancer Opioid use disorder Osteomyelitis PAD (peripheral artery disease) Family History Family History Mother No pertinent family history Family history: reviewed and not pertinent Surgical History Surgical History S/P transmetatarsal amputation of foot Social History Social History Household Members: Spouse Housing: Apartment Do you presently have visiting nurse or other home services: Yes Alcohol intake: never Patient Tobacco Use Status: Never used Tobacco Smoked in Last 30 Days: No Use of substances other than those prescribed or required for medical reasons: No Substance Use Type: Opiates Currently Displaying Signs/Symptoms of Drug Intoxication Withdrawal: No Have you been hit, kicked, punched, or otherwise hurt by someone within the past year? 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: sabianist Advance Directives: No Do you have thoughts of harming others: None Do you have a plan to hurt others: No Plan Recently lost weight without trying: No Nutrition Risks: No Nutritional Risk service: No Current occupational status: disabled Meds Allergies Allergy/AdvReac Type Severity Reaction Status Date / Time No Known Allergies Allergy Verified 02/01/22 12:12 [No Known Allergies*] Active Medications: Current Medications Acetaminophen (Acetaminophen 325 Mg Tablet) 650 mg PO Q6H PRN PRN Reason: Pain, Mild (Pain Scale 1-3) Aspirin (Aspirin 81 Mg Tab.Chew) 81 mg PO DAILY [facility] Last Admin: 06/18/22 07:55 Dose: 81 mg Atorvastatin Calcium (Atorvastatin Calcium 10 Mg Tablet) 10 mg PO DAILY [facility] Last Admin: 06/18/22 07:56 Dose: 10 mg Clopidogrel Bisulfate (Clopidogrel Bisulfate 75 Mg Tablet) 75 mg PO DAILY [facility] Last Admin: 06/18/22 07:56 Dose: 75 mg Dextrose (Dextrose 50 % 25 Gm/50 Ml Syringe) 25 gm IVPUSH Q15M PRN; Protocol PRN Reason: per Hypoglycemia Standing Ord. Enoxaparin Sodium (Enoxaparin Sodium 40 Mg/0.4 Ml Syringe) 40 mg SUBCUT Q24H [facility] Last Admin: 06/18/22 08:07 Dose: 40 mg Escitalopram Oxalate (Escitalopram Oxalate 10 Mg Tablet) 10 mg PO DAILY [facility] Last Admin: 06/18/22 07:56 Dose: 10 mg Ferrous Sulfate (Ferrous Sulfate 324 Mg Tablet.Dr) 324 mg PO BID [facility] Last Admin: 06/18/22 07:56 Dose: 324 mg Glucose (Glucose Gel 15 Gm Gel..Gram.) 15 gm PO Q15M PRN; Protocol PRN Reason: per Hypoglycemia Standing Ord. Hydromorphone HCl (Hydromorphone Hcl 1 Mg/Ml Syringe) 0.25 mg IVPUSH Q4H PRN; Protocol PRN Reason: Pain, Severe (Pain Scale 7-10) Insulin Glargine (Insulin Glargine,Hum.Rec.Anlog 100 Unit/Ml 10 Ml Vial) 68 unit SUBCUT DAILY [facility] Last Admin: 06/18/22 07:57 Dose: 68 unit Insulin Human Lispro (Insulin Lispro 100 Unit/Ml 3 Ml Vial) 0 unit SUBCUT QIDACHS [facility]; Protocol Last Admin: 06/18/22 12:28 Dose: 2 unit Lisinopril (Lisinopril 20 Mg Tablet) 20 mg PO DAILY [facility]; Protocol Last Admin: 06/18/22 07:56 Dose: 20 mg Methadone HCl (Methadone Hcl 20 Mg/2 Ml Oral.Conc) 55 mg PO DAILY [facility] Last Admin: 06/18/22 07:57 Dose: 55 mg Metoprolol Succinate (Metoprolol Succinate Er 50 Mg Tab.Er.24h) 50 mg PO DAILY [facility]; Protocol Last Admin: 06/18/22 07:56 Dose: 50 mg Nifedipine (Nifedipine Er 30 Mg Tab.Er.24) 30 mg PO DAILY [facility]; Protocol Last Admin: 06/18/22 07:56 Dose: 30 mg Omeprazole (Omeprazole 20 Mg Capsule.Dr) 20 mg PO DAILY [facility] Last Admin: 06/18/22 07:56 Dose: 20 mg Oxycodone HCl (Oxycodone Hcl Immed Release 5 Mg Tablet) 5 mg PO Q6H PRN PRN Reason: Pain, Severe (Pain Scale 7-10) Last Admin: 06/18/22 08:07 Dose: 5 mg Pharmacy Consult (Consult Rx Perform Med Rec) 1 each MISCELLANE ONCE PRN PRN Reason: Consult order Sodium Chloride (0.9 % Sodium Chloride Flush 3 Ml Syringe) [facility] Admin: 06/18/22 07:57 Dose: Not Given Tamsulosin HCl (Tamsulosin Hcl 0.4 Mg Capsule) 0.4 mg PO DAILY [facility] Last Admin: 06/18/22 07:56 Dose: 0.4 mg Home Medications Medication Instructions Recorded Confirmed Last Taken Type aspirin 81 mg chewable tablet 1 tab PO DAILY 06/17/22 06/17/22 Unknown History atorvastatin 10 mg tablet 1 tab PO DAILY 06/17/22 06/17/22 Unknown History citalopram 20 mg tablet 1 tab PO DAILY 06/17/22 06/17/22 Unknown History clopidogrel 75 mg tablet 1 tab PO DAILY 06/17/22 06/17/22 Unknown History ferrous sulfate 324 mg (65 mg 1 tab PO BID 06/17/22 06/17/22 Unknown History iron) tablet,delayed release insulin aspart U-100 100 unit/mL 0 sliding scale dose subcut DAILY 06/17/22 06/17/22 Unknown History (3 mL) subcutaneous pen (Novolog Flexpen U-100 Insulin aspart) insulin glargine 100 unit/mL 90 unit subcut DAILY 06/17/22 06/17/22 Unknown History subcutaneous solution (Lantus U-100 Insulin) lisinopril 20 mg tablet 20 mg PO DAILY 06/17/22 06/17/22 Unknown History metformin 1,000 mg tablet 1 tab PO BID 06/17/22 06/17/22 Unknown History methadone 10 mg/mL oral concentrate 55 mg PO DAILY 06/17/22 06/17/22 06/16/22 History metoprolol succinate 50 mg 1 tab PO DAILY 06/17/22 06/17/22 Unknown History tablet,extended release 24 hr nifedipine 30 mg tablet,extended 1 tab PO DAILY 06/17/22 06/17/22 Unknown History release 24 hr omeprazole 20 mg tablet,delayed 20 mg PO DAILY 06/17/22 06/17/22 Unknown History release tamsulosin 0.4 mg capsule 1 cap PO DAILY 06/17/22 06/17/22 Unknown History Physical Exam Vital Signs: Vital Signs: Last Vital Signs Temp 97.5 F 06/18/22 07:04 Pulse 76 06/18/22 07:04 Resp 18 06/18/22 07:04 BP 167/77 H 06/18/22 07:04 Pulse Ox 99 06/18/22 07:04 O2 Del Method 06/18/22 07:04 BMI result Body Mass Index 36.0 Const: General: cooperative HEENT: Head: Yes normal to inspection Face and sinus: Yes normal facial exam Mouth: Normal oral and palatal mucosa present Teeth and gingiva: dentition normal Eyes: General: appearance normal, both eyes and all related structures Pupils: Equal, round and reactive pupils present Resp: Effort & Inspection: normal respiratory effort Cardio: Rate: regular rate Rhythm: regular rhythm GI: Palpation (GI): Soft to palpation and nontender : General: Yes no CVA tenderness Back/Spine/Pelvis: Back: no CVA tenderness Skin: General skin exam: no rashes or lesions noted Neuro: General: moves all extremities Cranial nerves: Yes Equal, round and reactive pupils present Extrem: Other: appropriate bleeding post debridement left foot,no cellulitis Psych: Appearance: grossly normal Results Labs CBC & Chem 7: 06/18/22 05:57 06/18/22 05:57 Labs: Short CBC 06/18/22 Range/Units 05:57 WBC 8.1 (4.8-10.8) X10*3/uL Hgb 8.2 L (14.0-18.0) g/dl Hct 25.4 L (42.0-52.0) % Plt Count 214 (160-400) X10*3/uL BMP 06/18/22 05:57 Sodium 138 Potassium 4.9 Chloride 107 Carbon Dioxide 24 BUN 25 H Creatinine 1.61 H Calcium 8.3 L Assessment and Plan (1) S/P transmetatarsal amputation of foot: Status: Acute There is no area of active infection and per Vascular area is healing Plan No antibiotics at this time. Follow with Vascular
--- NOTE | 2022-06-18 14:04 | MHC.CM.PN ---
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 ANTIC D/C HOME W/RESUMP OF [facility] WHEN MEDICALLY CLEARED, PT CURRENTLY DECLINING STR.
[2022-06-18 15:12] VITALS: BP 131/72; PULSE 72; RESP 18; TEMP 36.1; O2SAT 99
[2022-06-18 15:52] LABS: Glucose, Whole Blood 171 mg/dL (60-115)
[2022-06-18] MEDS: 0.9 % Sodium Chloride Flush 3 ML SYRINGE IVFLUSH ×2 (16:59→20:41)
[2022-06-18 20:26] LABS: Glucose, Whole Blood 105 mg/dL (60-115)
[2022-06-18] MEDS: HYDROmorphone HCl 1 MG/ML SYRINGE 0.25 MG IVPUSH (20:48)
[2022-06-18 23:54] VITALS: BP 126/66; PULSE 74; RESP 20; TEMP 36.5; O2SAT 99
[2022-06-19 02:31] LABS: Glucose, Whole Blood 287 mg/dL (60-115)
[2022-06-19] MEDS: oxyCODONE HCl Immed Release 5 MG TABLET PO (02:32)
[2022-06-19 05:54] LABS: MANUAL DIFF FLAG NO
[2022-06-19 05:59] LABS: Basophils Percent Auto 0.3 % (0-2); Eosinophils Absolute Auto 0.2 X10*3/uL (0.0-0.4); Eosinophils Percent Auto 2.2 % (0-4); Hematocrit 26.7 % (42.0-52.0); Hemoglobin 8.2 g/dl (14.0-18.0); Imm Gran Abs Auto 0.04 X10*3/uL (0.00-0.03); Imm Gran Pct Auto 0.4 % (0.0-0.4); Lymphocytes Absolute Auto 2.6 X10*3/uL (1.2-4.9); Lymphocytes Percent Auto 27.7 % (20-40); Mean Corpuscular HGB Conc 30.7 g/dl (31.0-36.0); Mean Corpuscular Hemoglobin 26.5 pg (27.0-33.0); Mean Corpuscular Volume 86.4 fL (80.0-98.0); Mean Platelet Volume 10.8 fL (9.4-12.4); Monocytes Absolute Auto 0.8 X10*3/uL (0.1-1.2); Monocytes Percent Auto 8.5 % (2-11); Neutrophils Absolute Auto 5.7 x10*3/uL (2.0-8.3); Neutrophils Percent Auto 60.9 % (45-73); Platelet Count 242 X10*3/uL (160-400); Red Blood Count 3.09 X10*6/uL (4.60-5.80); Red Cell Distribution Width 17.2 % (11.0-16.0); White Blood Count 9.3 X10*3/uL (4.8-10.8)
[2022-06-19 06:18] LABS: Anion Gap 13 (12-20); Blood Urea Nitrogen 23 mg/dL (9-16); Calcium 8.6 mg/dL (8.4-10.2); Carbon Dioxide 26 mmol/L (22-29); Chloride 105 mmol/L (96-108); Creatinine Clr Calc Pharmacy 67.3; Estimated Glomerular Filt Rate 52; Glucose Random 286 mg/dL (60-115); Potassium 4.6 mmol/L (3.3-5.1); Sodium 139 mmol/L (135-145)
[2022-06-19 07:20] VITALS: BP 140/77; PULSE 75; RESP 18; TEMP 36; O2SAT 98
[2022-06-19 07:59] LABS: Glucose, Whole Blood 295 mg/dL (60-115)
[2022-06-19] MEDS: Insulin Glargine,Hum.rec.anlog 100 UNIT/ML 10 ML VIAL 68 UNIT SUBCUT (08:32)
[2022-06-19] MEDS: Insulin Lispro 100 UNIT/ML 3 ML VIAL SUBCUT ×2 (08:32→11:33)
[2022-06-19] MEDS: methADONE HCl 20 MG/2 ML ORAL.CONC 55 MG PO (08:32)
[2022-06-19] MEDS: Ferrous Sulfate 324 MG TABLET.DR PO (08:33)
[2022-06-19] MEDS: Aspirin 81 MG TAB.CHEW PO (08:33)
[2022-06-19] MEDS: Tamsulosin HCL 0.4 MG CAPSULE PO (08:33)
[2022-06-19] MEDS: Escitalopram Oxalate 10 MG TABLET PO (08:33)
[2022-06-19] MEDS: Metoprolol Succinate ER 50 MG TAB.ER.24H PO (08:33)
[2022-06-19] MEDS: Enoxaparin Sodium 40 MG/0.4 ML SYRINGE SUBCUT (08:33)
[2022-06-19] MEDS: Clopidogrel Bisulfate 75 MG TABLET PO (08:33)
[2022-06-19] MEDS: Atorvastatin Calcium 10 MG TABLET PO (08:33)
[2022-06-19] MEDS: lisinopriL 20 MG TABLET PO (08:33)
[2022-06-19] MEDS: NIFEdipine ER 30 MG TAB.ER.24 PO (08:34)
[2022-06-19] MEDS: Omeprazole 20 MG CAPSULE.DR PO (08:34)
[2022-06-19] MEDS: 0.9 % Sodium Chloride Flush 3 ML SYRINGE IVFLUSH (08:34)
--- NOTE | 2022-06-19 10:19 | P.DS_ITS ---
DS: Providers Provider Date of Service: 06/19/22 Date of admission: 06/17/22 08:53 Primary care physician: Twan Nunez MD Consults: 06/17/22 08:57 Consult to Vascular Surgery Routine Consulting Provider: Guy Brown Reason for consultation: wound left foot, s/p toe amputation last month 06/17/22 17:18 Consult to Infectious Diseases Routine Consulting Provider: Namrata De León Reason for consultation: left foot infection, TMA last month, abx recommendation 06/18/22 11:49 Consult to Neurology Routine Consulting Provider: [facility] Reason for consultation: blury vision Has provider been notified: No DS: Diagnosis Discharge Diagnosis (1) S/P transmetatarsal amputation of foot: Status: Acute DS: Summary Hospital Course Hospital Course: Chief Complaint: dizziness, blurred vision 56-year-old male with history of chronic normocytic anemia, insulin-dependent type 2 diabetes, chronic kidney disease stage III, history of opiate use disorder on methadone patient denies recent use, peripheral artery disease with recent admission last month for osteomyelitis s/p transmetatarsal amputation left foot treated with levaquin and linezolid via Kim device which was removed, presented to the ED earlier today with blurred vision and dizziness on ongoing for about 2 weeks.? He describes this is intermittent.? States that he can see that someone or something is in front of him but is unable to make out details due to the blurriness and peripheral vision is limited.? He states this is new.? He does were glasses ?due to my diabetes? but is not compliant with t his.? He is not certain what ophthalmologic conditions he has. He also reports intermitternt parietal and frontal headache rated 4/10, nausea, nonbilious emesis. He has had progressively worsening weakness in the LLE ongoing for months, worth since amputation. No diplopia, fevers, chills, abdominal pain, dysphagia, slurred speech, new weakness, paresthesias, shortness of breath, syncope, palpitations, or chest pain. He states his sugars have been around 102- 180 at home and reports compliance with medications. On arrival patient glucose 70-80, which is low for him. Started on D5NS and given 2amps D50. No leukocytosis. H/H 7.1/22.9%, slight decrease from baseline. Given 1 unit packed RBC.? Creatinine 1.76, BUN 34-slightly above baseline but no true AMY.? K 5.5.? CXR negative for any acute cardiopulmonary findings. Patient has been noncompliant with follow ups with Dr. Brown and did present to the ED yesterday for wound dehiscence with junaid replaced. Reports 8.5/10 pain left foot/leg. P atient to be admitted for hypoglycemia with suspected accidental insulin overdose. Hospital course: Anemia, acute on chronic, given 1 unit of RBC Blury vision--likely from hypoglycemia and has resolved, CT head was negative, neuro consult wasn't warranted. At present he has no blurry vision, these symptoms are likely related to diabetes and flucutating sugars with hypoglycemia and hyperglycemia. Due to hypoglycemia, Lantus has been reduced to 70 (was getting 68 in the hospital) AMY on CKD3--Creatinine is back down to his baseline, presently 1.4 Wound of L foot s/p recent transmetatarsal amputation 1 month ago, non compliant with follow up with Dr. Brown, Dr. Brown saw him and it is healing and not infected and therefore no antibiotics Patient will return home with [facility] Time Spent with Patient Time attestation: Total time spent providing and/or coordinating discharge services: Discharge coordination time: Greater than 30 minutes Quality: Safe Use of Opioids Does Pt have an Active Cancer Diagnosis on the Problem List?: No Quality: Stroke Does the patient have a stroke diagnosis?: No Physical Exam Vital Signs: Vital Signs: Last Vital Signs Temp 96.8 F 06/19/22 07:20 Pulse 75 06/19/22 07:20 Resp 18 06/19/22 07:20 BP 140/77 H 06/19/22 07:20 Pulse Ox 98 06/19/22 07:20 O2 Del Method 06/19/22 07:20 BMI result Body Mass Index 36.0 DS: Data Data Completed and Pending Completed studies during hospitalization [Text1]: Procedures Detachment at Left 4th Toe, Complete, Open Approach (04/04/22) Detachment at Left Foot, Partial 1st Ray, Open Approach (05/12/22) Detachment at Left Foot, Partial 2nd Ray, Open Approach (05/12/22) Detachment at Left Foot, Partial 3rd Ray, Open Approach (05/12/22) Detachment at Left Foot, Partial 4th Ray, Open Approach (05/12/22) Detachment at Left Foot, Partial 5th Ray, Open Approach (05/12/22) Dilation of Left Anterior Tibial Artery using Drug-Coated Balloon, Percutaneous Approach (05/12/22) Excision of Left Foot Skin, External Approach (04/04/22) Insertion of Infusion Device into Superior Vena Cava, Percutaneous Approach (04/04/22) Insertion of Tunneled Vascular Access Device into Chest Subcutaneous Tissue and Fascia, Percutaneous Approach (04/04/22) Transfusion of Nonautologous Red Blood Cells into Peripheral Vein, Percutaneous Approach (05/12/22) Ultrasonography of Superior Vena Cava, Guidance (04/04/22) Labs on day of discharge: Laboratory Results - last 24 hr 06/18/22 06/18/22 06/18/22 11:08 15:46 19:24 WBC RBC Hgb Hct MCV MCH MCHC RDW Plt Count MPV Immature Gran % (Auto) Neut % (Auto) Lymph % (Auto) [place] % (Auto) Eos % (Auto) Baso % (Auto) Lymph # (Auto) [place] # (Auto) Eos # (Auto) Baso # (Auto) Abs Immat Gran (auto) Absolute Neuts (auto) Absolute Nucleated RBC Nucleated RBC % (auto) Sodium Potassium Chloride Carbon Dioxide Anion Gap BUN Creatinine Estim Creat Clear Calc Estimated GFR POC Glucose 191 H 171 H 105 Random Glucose Calcium 06/19/22 06/19/22 06/19/22 02:20 05:39 05:39 WBC 9.3 RBC 3.09 L Hgb 8.2 L Hct 26.7 L MCV 86.4 MCH 26.5 L MCHC 30.7 L RDW 17.2 H Plt Count 242 MPV 10.8 Immature Gran % (Auto) 0.4 Neut % (Auto) 60.9 Lymph % (Auto) 27.7 [place] % (Auto) 8.5 Eos % (Auto) 2.2 Baso % (Auto) 0.3 Lymph # (Auto) 2.6 [place] # (Auto) 0.8 Eos # (Auto) 0.2 Baso # (Auto) 0.0 Abs Immat Gran (auto) 0.04 H Absolute Neuts (auto) 5.7 Absolute Nucleated RBC 0.000 Nucleated RBC % (auto) 0.0 Sodium 139 Potassium 4.6 Chloride 105 Carbon Dioxide 26 Anion Gap 13 BUN 23 H Creatinine 1.41 H Estim Creat Clear Calc 67.3 Estimated GFR 52 POC Glucose 287 H Random Glucose 286 H Calcium 8.6 06/19/22 07:25 WBC RBC Hgb Hct MCV MCH MCHC RDW Plt Count MPV Immature Gran % (Auto) Neut % (Auto) Lymph % (Auto) [place] % (Auto) Eos % (Auto) Baso % (Auto) Lymph # (Auto) [place] # (Auto) Eos # (Auto) Baso # (Auto) Abs Immat Gran (auto) Absolute Neuts (auto) Absolute Nucleated RBC Nucleated RBC % (auto) Sodium Potassium Chloride Carbon Dioxide Anion Gap BUN Creatinine Estim Creat Clear Calc Estimated GFR POC Glucose 295 H Random Glucose Calcium Discharge Plan Discharge Anticipated Discharge Date/Time: 06/19/22 10:07 Patient Disposition: Home Health Service Discharge Diagnosis: Hypoglycemia, blurry vision that has resolved Referrals: Twan Nunez MD [Primary Care Provider] - 1 Week Discharge Medications: Continued nifedipine 30 mg tablet extended release 24hr 1 tab PO DAILY metoprolol succinate 50 mg tablet extended release 24 hr 1 tab PO DAILY clopidogrel 75 mg tablet 1 tab PO DAILY citalopram 20 mg tablet 1 tab PO DAILY tamsulosin 0.4 mg capsule 1 cap PO DAILY metformin 1,000 mg tablet 1 tab PO BID aspirin 81 mg tablet,chewable 1 tab PO DAILY insulin aspart U-100 [Novolog Flexpen U-100 Insulin] 100 unit/mL (3 mL) insulin pen 0 sliding scale dose subcut DAILY ferrous sulfate 324 mg (65 mg iron) tablet,delayed release (DR/EC) 1 tab PO BID methadone 10 mg/mL Concentrate 55 mg PO DAILY atorvastatin 10 mg tablet 1 tab PO DAILY lisinopril 20 mg tablet 20 mg PO DAILY omeprazole 20 mg Tablet,Delayed Release (Dr/Ec) 20 mg PO DAILY Changed insulin glargine [Lantus U-100 Insulin] 100 unit/mL solution 70 unit subcut DAILY Qty: 10 0RF Discharge Orders: Discharge Order (Routine); Ordered 06/19/22 Ordered By: Cristi Montelongo Diet: Diabetic diet Activity on Discharge: As tolerated Stand Alone Forms: Patient Portal Discharge page Activity Restrictions/Additional Instructions: Wound care upon discharge: xeroform, 4x4 and Kerlix wrap to be changed 3 times a week. Please call Dr. Brown at [phone] for 2 week follow up for residual suture removal. Care Plan Goals: prevention of hypoglycemia Health Concerns: diabetes Plan of Treatment: Take your medications as before except Lantus which has been reduced to 70 untis at night rather than 90 units Assessment: as above
[2022-06-19 11:21] LABS: Glucose, Whole Blood 210 mg/dL (60-115)
--- NOTE | 2022-06-19 12:01 | P.CNNE_ITS ---
History of Present Illness Data of Consult Service Date: 06/19/22 Primary Care Provider: Twan Nunez MD HPI Reason for consult: Blurred vision 56-year-old male with history of chronic normocytic anemia, insulin-dependent type 2 diabetes, chronic kidney disease stage III, history of opiate use disorder on methadone patient denies recent use, peripheral artery disease with recent admission last month for osteomyelitis s/p transmetatarsal amputation left foot treated with levaquin and linezolid via Kim device which was removed, presented to the ED earlier today with blurred vision and dizziness on ongoing for about 2 weeks. He said that he was having a significant headache yesterday with blurred vision but this morning headache was gone and blurred vision was gone. He denied having frequent headaches. This headache lasted all day. Headache was worse with light and noise but he denied any nausea. Review of Systems Review of Systems: No recent cold or flu-like illness PMFSH Past Medical History Medical History Chronic anemia CKD (chronic kidney disease) Diabetes Diabetes type 2, controlled Diabetic infection of left foot Fever of unknown origin History of prostate cancer Opioid use disorder Osteomyelitis PAD (peripheral artery disease) Family History Family History Mother No pertinent family history Family history: reviewed and not pertinent Surgical History Surgical History S/P transmetatarsal amputation of foot Social History Social History Household Members: Spouse Housing: Apartment Do you presently have visiting nurse or other home services: Yes Alcohol intake: never Patient Tobacco Use Status: Never used Tobacco Smoked in Last 30 Days: No Use of substances other than those prescribed or required for medical reasons: No Substance Use Type: Opiates Currently Displaying Signs/Symptoms of Drug Intoxication Withdrawal: No Have you been hit, kicked, punched, or otherwise hurt by someone within the past year? If so, by whom?: No Do you feel safe in your current relationship?: Yes Is there a partner from a previous relationship who is making you feel unsafe now?: No Are you made to feel afraid or neglected: No [facility] Practices: bahai Advance Directives: No Do you have thoughts of harming others: None Do you have a plan to hurt others: No Plan Recently lost weight without trying: No Nutrition Risks: No Nutritional Risk service: No Current occupational status: disabled Meds Allergies Allergy/AdvReac Type Severity Reaction Status Date / Time No Known Allergies Allergy Verified 02/01/22 12:12 [No Known Allergies*] Active Medications: Current Medications Acetaminophen (Acetaminophen 325 Mg Tablet) 650 mg PO Q6H PRN PRN Reason: Pain, Mild (Pain Scale 1-3) Aspirin (Aspirin 81 Mg Tab.Chew) 81 mg PO DAILY [facility] Last Admin: 06/19/22 08:33 Dose: 81 mg Atorvastatin Calcium (Atorvastatin Calcium 10 Mg Tablet) 10 mg PO DAILY [facility] Last Admin: 06/19/22 08:33 Dose: 10 mg Clopidogrel Bisulfate (Clopidogrel Bisulfate 75 Mg Tablet) 75 mg PO DAILY [facility] Last Admin: 06/19/22 08:33 Dose: 75 mg Dextrose (Dextrose 50 % 25 Gm/50 Ml Syringe) 25 gm IVPUSH Q15M PRN; Protocol PRN Reason: per Hypoglycemia Standing Ord. Enoxaparin Sodium (Enoxaparin Sodium 40 Mg/0.4 Ml Syringe) 40 mg SUBCUT Q24H [facility] Last Admin: 06/19/22 08:33 Dose: 40 mg Escitalopram Oxalate (Escitalopram Oxalate 10 Mg Tablet) 10 mg PO DAILY [facility] Last Admin: 06/19/22 08:33 Dose: 10 mg Ferrous Sulfate (Ferrous Sulfate 324 Mg Tablet.Dr) 324 mg PO BID [facility] Last Admin: 06/19/22 08:33 Dose: 324 mg Glucose (Glucose Gel 15 Gm Gel..Gram.) 15 gm PO Q15M PRN; Protocol PRN Reason: per Hypoglycemia Standing Ord. Hydromorphone HCl (Hydromorphone Hcl 1 Mg/Ml Syringe) 0.25 mg IVPUSH Q4H PRN; Protocol PRN Reason: Pain, Severe (Pain Scale 7-10) Last Admin: 06/18/22 20:48 Dose: 0.25 mg Insulin Glargine (Insulin Glargine,Hum.Rec.Anlog 100 Unit/Ml 10 Ml Vial) 68 unit SUBCUT DAILY [facility] Last Admin: 06/19/22 08:32 Dose: 68 unit Insulin Human Lispro (Insulin Lispro 100 Unit/Ml 3 Ml Vial) 0 unit SUBCUT QIDA [facility]; Protocol Last Admin: 06/19/22 11:33 Dose: 4 unit Lisinopril (Lisinopril 20 Mg Tablet) 20 mg PO DAILY [facility]; Protocol Last Admin: 06/19/22 08:33 Dose: 20 mg Methadone HCl (Methadone Hcl 20 Mg/2 Ml Oral.Conc) 55 mg PO DAILY [facility] Last Admin: 06/19/22 08:32 Dose: 55 mg Metoprolol Succinate (Metoprolol Succinate Er 50 Mg Tab.Er.24h) 50 mg PO DAILY [facility]; Protocol Last Admin: 06/19/22 08:33 Dose: 50 mg Nifedipine (Nifedipine Er 30 Mg Tab.Er.24) 30 mg PO DAILY [facility]; Protocol Last Admin: 06/19/22 08:34 Dose: 30 mg Omeprazole (Omeprazole 20 Mg Capsule.Dr) 20 mg PO DAILY [facility] Last Admin: 06/19/22 08:34 Dose: 20 mg Oxycodone HCl (Oxycodone Hcl Immed Release 5 Mg Tablet) 5 mg PO Q6H PRN PRN Reason: Pain, Severe (Pain Scale 7-10) Last Admin: 06/19/22 02:32 Dose: 5 mg Pharmacy Consult (Consult Rx Perform Med Rec) 1 each MISCELLANE ONCE PRN PRN Reason: Consult order Sodium Chloride (0.9 % Sodium Chloride Flush 3 Ml Syringe) [facility] Last Admin: 06/19/22 08:34 Dose: 3 ml Tamsulosin HCl (Tamsulosin Hcl 0.4 Mg Capsule) 0.4 mg PO DAILY [facility] Last Admin: 06/19/22 08:33 Dose: 0.4 mg Home Medications Medication Instructions Recorded Confirmed Last Taken Type aspirin 81 mg chewable tablet 1 tab PO DAILY 06/17/22 06/17/22 Unknown History atorvastatin 10 mg tablet 1 tab PO DAILY 06/17/22 06/17/22 Unknown History citalopram 20 mg tablet 1 tab PO DAILY 06/17/22 06/17/22 Unknown History clopidogrel 75 mg tablet 1 tab PO DAILY 06/17/22 06/17/22 Unknown History ferrous sulfate 324 mg (65 mg 1 tab PO BID 06/17/22 06/17/22 Unknown History iron) tablet,delayed release insulin aspart U-100 100 unit/mL 0 sliding scale dose subcut DAILY 06/17/22 06/17/22 Unknown History (3 mL) subcutaneous pen (Novolog Flexpen U-100 Insulin aspart) insulin glargine 100 unit/mL 90 unit subcut DAILY 06/17/22 06/17/22 Unknown History subcutaneous solution (Lantus U-100 Insulin) lisinopril 20 mg tablet 20 mg PO DAILY 06/17/22 06/17/22 Unknown History metformin 1,000 mg tablet 1 tab PO BID 06/17/22 06/17/22 Unknown History methadone 10 mg/mL oral concentrate 55 mg PO DAILY 06/17/22 06/17/22 06/16/22 History metoprolol succinate 50 mg 1 tab PO DAILY 06/17/22 06/17/22 Unknown History tablet,extended release 24 hr nifedipine 30 mg tablet,extended 1 tab PO DAILY 06/17/22 06/17/22 Unknown History release 24 hr omeprazole 20 mg tablet,delayed 20 mg PO DAILY 06/17/22 06/17/22 Unknown History release tamsulosin 0.4 mg capsule 1 cap PO DAILY 06/17/22 06/17/22 Unknown History Physical Exam Vital Signs: Vital Signs: Last Vital Signs Temp 96.8 F 06/19/22 07:20 Pulse 75 06/19/22 07:20 Resp 18 06/19/22 07:20 BP 140/77 H 06/19/22 07:20 Pulse Ox 98 06/19/22 07:20 O2 Del Method 06/19/22 07:20 BMI result Body Mass Index 36.0 Neuro: Other: He is alert and awake with normal spontaneity of speech fluency comprehension and affect. Face is symmetrical. Visual zelaya are full. There is no focal weakness. Results Labs CBC & Chem 7: 06/19/22 05:39 06/19/22 05:39 Labs: Short CBC 06/19/22 Range/Units 05:39 WBC 9.3 (4.8-10.8) X10*3/uL Hgb 8.2 L (14.0-18.0) g/dl Hct 26.7 L (42.0-52.0) % Plt Count 242 (160-400) X10*3/uL BMP 06/19/22 05:39 Sodium 139 Potassium 4.6 Chloride 105 Carbon Dioxide 26 BUN 23 H Creatinine 1.41 H Calcium 8.[address] revealed mild chronic microvascular ischemic changes Assessment and Plan (1) Migraine: Status: Acute Likely explanation of headache that lasted all day with photophobia and phonophobia and blurred vision was migraine. Today he he was symptom free. At this time he should get an outpatient ophthalmology evaluation to make sure there is no ophthalmological reason. As far as headache is concerned, it could be treated with p.r.n. Fioricet type of medicine. Procedures Date of Service Date of Service: 06/19/22
--- NOTE | 2022-06-19 12:15 | MHC.CM.PN ---
Addendum entered by Nasima Medina 06/19/22 13:32: PT REPORTS HE DOES NOT FEEL HE WILL BE ABLE TO GET UP THE STAIRS TO HIS APARTMENT HE STATES THE NOTES FROM THE PREVIOUS ADMISSIONS ARE INCORRECT AND HE ALWAYS TAKES AN AMBULANCE HOME BLS TRANSPORT ARRANGED [facility]IA [facility] AVAILABLE TRANSPORT REQUESTED Addendum entered by Nasima Medina 06/19/22 12:31: CM CALLED [facility] AND INFORMED THEM OF DC DC SUMMARY WAS FAXED TO THEM AT [phone] Original Note: PT CONTINUES TO REFUSE STR PT WILL DC HOME TODAY WITH [facility] A [facility] WILL BE ORDERED FOR TRANSPORT
[2022-06-19 14:14] LABS: Glucose, Whole Blood 107 mg/dL (60-115)
[2022-06-19 15:31] VITALS: BP 143/67; PULSE 74; RESP 16; TEMP 36.1; O2SAT 98
[2022-06-19 15:49] LABS: Glucose, Whole Blood 89 mg/dL (60-115)
== END 2022-06-19 16:35 | disposition home health service (06) | DRG 638 ==
LOC: HO.ED 04:56 → HO.EDOVER 09:16 → HO.S3 18:53
PROVIDERS: Admitting Provider Physician Assistant; Emergency Provider Emergency Medicine; PCP Internal Medicine; Visit Provider Internal Medicine
DX: E11.649 Type 2 diabetes mellitus with hypoglycemia without coma (principal); F11.20 Opioid dependence, uncomplicated; D63.1 Anemia in chronic kidney disease; E11.51 Type 2 diabetes mellitus with diabetic peripheral angiopathy without gangrene; N18.30 Chronic kidney disease, stage 3 unspecified; E11.22 Type 2 diabetes mellitus with diabetic chronic kidney disease; G43.909 Migraine, unspecified, not intractable, without status migrainosus; Z20.822 Contact with and (suspected) exposure to COVID-19; Z91.199 Patient's noncompliance with other medical treatment and regimen due to unspecified reason; Z86.14 Personal history of Methicillin resistant Staphylococcus aureus infection; Z89.439 Acquired absence of unspecified foot; Z79.4 Long term (current) use of insulin; Z79.02 Long term (current) use of antithrombotics/antiplatelets; Z79.82 Long term (current) use of aspirin; Z79.84 Long term (current) use of oral hypoglycemic drugs; Z79.899 Other long term (current) drug therapy
CPT/HCPCS: 12001; 36415; 70450; 71045; 80048; 80076; 80307; 81003; 82947; 83036; 83690; 84484; 85025; 86850; 86900; 86901; 86923; 87635; 93005; 99283; 99285; J1170; J1650; J2270; P9016

== ENCOUNTER 2022-06-25 10:21 | Emergency (ER) | payer MEDICARE, MEDICAID, SELFPAY ==
[2022-06-25 10:33] VITALS: BP 164/72; PULSE 94; O2SAT 98; BMI 36.1
[2022-06-25 10:41] VITALS: BP 151/73; PULSE 88; RESP 20; TEMP 36.7; O2SAT 97
--- NOTE | 2022-06-25 11:41 | ECG_ITS ---
Test Reason : N/V Blood Pressure : / mmHG Vent. Rate : 079 BPM Atrial Rate : 079 BPM P-R Int : 160 ms QRS Dur : 080 ms QT Int : 366 ms P-R-T Axes : -07 058 038 degrees QTc Int : 419 ms Normal sinus rhythm Normal ECG When compared with ECG of 17-JUN-2022 02:55, No significant change was found Referred By: Tima Hinson Electronically Signed By:JANA MAIN MD
--- NOTE | 2022-06-25 11:45 | ED_ITS ---
HPI - Nausea/Vomiting/Diarrhea General Chief complaint: Nausea/Vomiting/Diarrhea Stated complaint: ABD PAIN,VOMITING X'S 8 HOURS Time Seen by Provider: 06/25/22 10:33 Source: patient Mode of arrival: ambulatory Limitations: no limitations History of Present Illness HPI Narrative: Ulysses is a 56-year-old male with a past medical history of DM, PAD, CKD, opioid use disorder, who presents to the emergency room complaining of 8 hours of the nausea and vomiting with diffuse abdominal pain. Patient reports that the pain has been constant and throbbing and rates that as a 9/10. He denies vomiting any blood. He denies fevers but endorses chills. He denies chest pain or shortness of breath. He also denies diarrhea or constipation as well as trouble urinating. He denies any recent travel or sick contacts. MD elicited complaint: nausea, vomiting and abdominal pain Onset (ago): hour(s) (8) Description of vomiting: bilious Associated nausea: Yes Associated abdominal pain: Yes Location of pain: diffuse Radiation: diffuse Pain consistency: constant Severity: severe Pain scale (0-10): 9 Quality: other (Throbbing) Associated symptoms: fever/chills (Chills) Related Data Home Medications Medication Instructions Recorded Confirmed aspirin 81 mg chewable tablet 1 tab PO DAILY 06/17/22 06/17/22 atorvastatin 10 mg tablet 1 tab PO DAILY 06/17/22 06/17/22 citalopram 20 mg tablet 1 tab PO DAILY 06/17/22 06/17/22 clopidogrel 75 mg tablet 1 tab PO DAILY 06/17/22 06/17/22 ferrous sulfate 324 mg (65 mg 1 tab PO BID 06/17/22 06/17/22 iron) tablet,delayed release insulin aspart U-100 100 unit/mL 0 sliding scale dose subcut DAILY 06/17/22 06/17/22 (3 mL) subcutaneous pen (Novolog Flexpen U-100 Insulin aspart) lisinopril 20 mg tablet 20 mg PO DAILY 06/17/22 06/17/22 metformin 1,000 mg tablet 1 tab PO BID 06/17/22 06/17/22 methadone 10 mg/mL oral concentrate 55 mg PO DAILY 06/17/22 06/17/22 metoprolol succinate 50 mg 1 tab PO DAILY 11/10/22 11/10/22 tablet,extended release 24 hr nifedipine 30 mg tablet,extended 1 tab PO DAILY 06/17/22 06/17/22 release 24 hr omeprazole 20 mg tablet,delayed 20 mg PO DAILY 06/17/22 06/17/22 release tamsulosin 0.4 mg capsule 1 cap PO DAILY 06/17/22 06/17/22 Previous Rx's Medication Instructions Recorded insulin glargine 100 unit/mL 70 unit (0.7 mL) subcut DAILY #10 06/19/22 subcutaneous solution (Lantus mL U-100 Insulin) ondansetron 4 mg disintegrating 4 mg PO Q6-8H PRN nausea and 06/25/22 tablet vomiting #14 tabs Allergies Allergy/AdvReac Type Severity Reaction Status Date / Time No Known Allergies Allergy Verified 02/01/22 12:12 [No Known Allergies*] Review of Systems Constitutional: Constitutional: Reports chills Gastrointestinal: Gastrointestinal: Reports nausea and Reports vomiting PMFSH Past Medical History PMFSH Narrative: Past medical history: DM, CKD, PAD, osteomyelitis, opioid use disorder Surgical history: Transmetatarsal amputation of left foot 1 month ago, appendectomy 27 years ago Social history: Denies alcohol use, denies smoking cigarettes, history of opioid use Medical History Anemia Chronic anemia CKD (chronic kidney disease) Diabetes Diabetes type 2, controlled Diabetic infection of left foot Fever of unknown origin History of prostate cancer Migraine Opioid use disorder Osteomyelitis PAD (peripheral artery disease) Surgical History S/P transmetatarsal amputation of foot Family History Family History Mother No pertinent family history Social History Social History Household Members: Spouse Housing: Apartment Do you presently have visiting nurse or other home services: Yes Alcohol intake: never Patient Tobacco Use Status: Never used Tobacco Substance Use Type: Opiates Advance Directives: Yes Advance Directives Information Provided: Yes Advance Directives on File: No service: No Current occupational status: disabled Physical Exam Vital Signs: Vital Signs: Last Vital Signs Temp 98.0 F 06/25/22 10:41 Pulse 88 06/25/22 10:41 Resp 20 06/25/22 10:41 BP 151/73 H 06/25/22 10:41 Pulse Ox 97 06/25/22 10:41 O2 Del Method 06/25/22 10:41 BMI result Body Mass Index 36.1 Const: General: cooperative, alert and awake Orientation/consciousness: oriented to person and oriented to place Limitations: no limitations HEENT: Head: Yes normal to inspection, Yes normocephalic and Yes atraumatic Ears: external ears normal General nose exam: Normal external nose present Face and sinus: Yes normal facial exam Mouth: Normal oral and palatal mucosa present Throat: Yes posterior oropharynx normal Eyes: General: appearance normal, both eyes and all related structures Neck: Neck: Yes normal visual inspection, Yes no lymphadenopathy, Yes trachea midline and Yes supple Chest: Chest palpation & inspection: normal inspection of the chest and tenderness Resp: Effort & Inspection: normal respiratory effort and able to speak in complete sentences Auscultation: clear to auscultation bilaterally Cardio: Rate: regular rate Rhythm: regular rhythm Heart sounds: S1 normal heart sound present, S2 normal heart sound present and no murmurs GI: Other: Patient is vomiting during the exam. Bilious in appearance, no blood noted Inspection: Yes normal to inspection Palpation (GI): Soft to palpation and Tenderness to palpation present (GI) (Diffusely tender) in the epigastrum, in the LLQ, in the LUQ, in the RUQ and periumbilically Auscultation: normal bowel sounds : General: Yes no CVA tenderness Back/Spine/Pelvis: Back: no CVA tenderness Skin: General skin exam: no rashes or lesions noted Neuro: General: oriented to person and oriented to place Cranial nerves: Yes CN's II-XII intact bilaterally Cognition (Neuro): normal cognition Motor exam (neuro): 5/5 motor strength present throughout Extrem: Other: Nonhealing wound, see picture above no evidence of cellulitis or purulent drainage General: Yes normal to inspection Psych: Appearance: grossly normal Speech and movement: Normal speech and movement present Affect: normal affect Attitude: cooperative Thought process: Normal thought process present Thought content: Normal thought content present Course Course Course Narrative: Ulysses is a 56-year-old male with a medical history of CKD, PAD, DM, and opiate use disorder who presents today to the emergency department complaining of nausea, vomiting, epigastric pain, and diarrhea. He reports that his symptoms have been ongoing for the last 8 hours. His blood pressure was hypertensive at 151/73 on his other vital signs were otherwise unremarkable. His abdominal exam indicated diffuse tenderness with increased tenderness in the epigastric area. His hemoglobin was 8.0 and his hematocrit was 25.2, consistent with his previous labs. His BUN was elevated at 26 in his creatinine was 1.45 on, again consistent with his previous labs the week before. Potassium was 5.3 and glucose was 127. Flu and COVID were negative. The patient was treated with Zofran 4 mg IV, morphine 4 mg IV, normal saline 1 L IV. The patient did feel slightly better with this treatment. Since he did miss his methadone dose and there may be a component of this with withdrawal, a methadone dose of 55 mg. Based on his physical exam and based on his labs his symptoms are consistent with a viral illness. The patient will be discharged to home with Zofran 4 mg IV 16 hours for his nausea. He was advised to continue with his medications and follow-up is provider. Medications Administered Discontinued Medications Generic Name Dose Route Start Last Admin Trade Name Freq PRN Reason Stop Dose Admin Sodium Chloride 1,000 mls @ 999 mls/hr 06/25/22 11:39 06/25/22 12:16 Ns IV 06/25/22 12:39 999 mls/hr .Q1H1M STA Administration Methadone HCl 55 mg 06/25/22 15:16 06/25/22 15:33 Methadone Hcl 20 Mg/2 Ml Oral.Conc PO 06/25/22 15:17 55 mg ONCE ONE Administration Morphine Sulfate 4 mg 06/25/22 11:39 06/25/22 12:16 Morphine Sulfate 4 Mg/Ml Cartridge IVPUSH 06/25/22 11:40 4 mg ONCE STA Administration Protocol Ondansetron HCl 4 mg 06/25/22 11:39 06/25/22 12:16 Ondansetron Hcl 4 Mg/2 Ml Vial IVPUSH 06/25/22 11:40 4 mg ONCE ONE Administration MDM - Nausea/Vomiting/Diarrhea Medical Records Attestation: I reviewed the patient's medical records. Lab Data Attestation: I reviewed the patient's lab results. Result diagrams: 06/25/22 12:05 06/25/22 12:05 Labs: Lab Results 06/25/22 06/25/22 06/25/22 Range/Units 12:05 12:05 12:05 WBC 11.0 H (4.8-10.8) X10*3/uL RBC 2.91 L (4.60-5.80) X10*6/uL Hgb 8.0 L (14.0-18.0) g/dl Hct 25.2 L (42.0-52.0) % MCV 86.6 (80.0-98.0) fL MCH 27.5 (27.0-33.0) pg MCHC 31.7 (31.0-36.0) g/dl RDW 17.0 H (11.0-16.0) % Plt Count 222 (160-400) X10*3/uL MPV 10.4 (9.4-12.4) fL Immature Gran % (Auto) 0.4 (0.0-0.4) % Neut % (Auto) 79.3 H (45-73) % Lymph % (Auto) 14.1 L (20-40) % [place] % (Auto) 5.0 (2-11) % Eos % (Auto) 0.8 (0-4) % Baso % (Auto) 0.4 (0-2) % Lymph # (Auto) 1.6 (1.2-4.9) X10*3/uL [place] # (Auto) 0.6 (0.1-1.2) X10*3/uL Eos # (Auto) 0.1 (0.0-0.4) X10*3/uL Baso # (Auto) 0.0 (0.0-0.2) X10*3/uL Abs Immat Gran (auto) 0.04 H (0.00-0.03) X10*3/uL Absolute Neuts (auto) 8.8 H (2.0-8.3) x10*3/uL Absolute Nucleated RBC 0.000 (0.0-0.012) X10*3/uL Nucleated RBC % (auto) 0.0 (0.0-0.2) /100WBC Sodium 141 (135-145) mmol/L Potassium 5.3 H (3.3-5.1) mmol/L Chloride 103 (96-108) mmol/L Carbon Dioxide 29 (22-29) mmol/L Anion Gap 14 (12-20) BUN 26 H (9-16) mg/dL Creatinine 1.45 H (0.5-1.4) mg/dL Estim Creat Clear Calc 63.5 Estimated GFR 50 POC Glucose (60-115) mg/dL Random Glucose 127 H (60-115) mg/dL Calcium 9.3 D (8.4-10.2) mg/dL Total Bilirubin 0.2 (0.0-1.0) mg/dL AST 20 D (5-37) U/L ALT 42 H (0-40) U/L Alkaline Phosphatase 89 D (39-117) U/L Total Protein 7.5 (6.5-8.0) g/dL Albumin 3.5 (3.5-5.0) g/dL Lipase 8 (8-78) U/L COVID-19 (JOSE DAVID) (Negative) COVID-19 Clin Com Influenza Type A (CHRISTINA) Negative (Negative) Influenza Type B (CHRISTINA) Negative (Negative) Influenza A & B Note See Note 06/25/22 06/25/22 Range/Units 12:05 12:09 WBC (4.8-10.8) X10*3/uL RBC (4.60-5.80) X10*6/uL Hgb (14.0-18.0) g/dl Hct (42.0-52.0) % MCV (80.0-98.0) fL MCH (27.0-33.0) pg MCHC (31.0-36.0) g/dl RDW (11.0-16.0) % Plt Count (160-400) X10*3/uL MPV (9.4-12.4) fL Immature Gran % (Auto) (0.0-0.4) % Neut % (Auto) (45-73) % Lymph % (Auto) (20-40) % [place] % (Auto) (2-11) % Eos % (Auto) (0-4) % Baso % (Auto) (0-2) % Lymph # (Auto) (1.2-4.9) X10*3/uL [place] # (Auto) (0.1-1.2) X10*3/uL Eos # (Auto) (0.0-0.4) X10*3/uL Baso # (Auto) (0.0-0.2) X10*3/uL Abs Immat Gran (auto) (0.00-0.03) X10*3/uL Absolute Neuts (auto) (2.0-8.3) x10*3/uL Absolute Nucleated RBC (0.0-0.012) X10*3/uL Nucleated RBC % (auto) (0.0-0.2) /100WBC Sodium (135-145) mmol/L Potassium (3.3-5.1) mmol/L Chloride (96-108) mmol/L Carbon Dioxide (22-29) mmol/L Anion Gap (12-20) BUN (9-16) mg/dL Creatinine (0.5-1.4) mg/dL Estim Creat Clear Calc Estimated GFR POC Glucose 115 (60-115) mg/dL Random Glucose (60-115) mg/dL Calcium (8.4-10.2) mg/dL Total Bilirubin (0.0-1.0) mg/dL AST (5-37) U/L ALT (0-40) U/L Alkaline Phosphatase (39-117) U/L Total Protein (6.5-8.0) g/dL Albumin (3.5-5.0) g/dL Lipase (8-78) U/L COVID-19 (JOSE DAVID) Negative (Negative) COVID-19 Clin Com See Note Influenza Type A (CHRISTINA) (Negative) Influenza Type B (CHRISTINA) (Negative) Influenza A & B Note ECG Data Attestation: I personally reviewed and interpreted this ECG as follows: Interpretation: EKG was completed 11:58am. EKG indicated normal sinus rhythm, rate was 79 beats per minute, normal intervals, no ST segment elevation or depression, no T-wave abnormalities, no PACs or PVCs, when compared with the EKG of 06/17/2022 a significant change was found. Discharge Plan Discharge Clinical Impression: Viral illness Abdominal pain Qualifiers: Abdominal location: generalized Qualified Code(s): R10.84 - Generalized abdominal pain Nausea & vomiting Qualifiers: Vomiting type: bilious vomiting Qualified Code(s): R11.14 - Bilious vomiting Patient Disposition: Home, Self-Care Instructions: Viral Syndrome (ED) Additional Instructions: Based physical exam and test, your symptoms are likely consistent with a viral illness. Your COVID and flu tests were negative, and your labs were consistent with your baseline which is reassuring. Take Zofran ODT 4 mg pills, 1 pill dissolved in your mouth every 8 hours as needed for nausea and vomiting. Follow-up with your doctor in 2 days. Please return to the emergency department if your symptoms get worse or if you develop any symptoms that are concerning to you. Prescriptions: New ondansetron 4 mg tablet,disintegrating 4 mg PO Q6-8H PRN (Reason: nausea and vomiting) Qty: 14 0RF No Action nifedipine 30 mg tablet extended release 24hr 1 tab PO DAILY metoprolol succinate 50 mg tablet extended release 24 hr 1 tab PO DAILY clopidogrel 75 mg tablet 1 tab PO DAILY citalopram 20 mg tablet 1 tab PO DAILY tamsulosin 0.4 mg capsule 1 cap PO DAILY metformin 1,000 mg tablet 1 tab PO BID aspirin 81 mg tablet,chewable 1 tab PO DAILY insulin aspart U-100 [Novolog Flexpen U-100 Insulin] 100 unit/mL (3 mL) insulin pen 0 sliding scale dose subcut DAILY ferrous sulfate 324 mg (65 mg iron) tablet,delayed release (DR/EC) 1 tab PO BID methadone 10 mg/mL Concentrate 55 mg PO DAILY atorvastatin 10 mg tablet 1 tab PO DAILY lisinopril 20 mg tablet 20 mg PO DAILY omeprazole 20 mg Tablet,Delayed Release (Dr/Ec) 20 mg PO DAILY insulin glargine [Lantus U-100 Insulin] 100 unit/mL solution 70 unit subcut DAILY Qty: 10 0RF
[2022-06-25 12:10] LABS: MANUAL DIFF FLAG NO
[2022-06-25 12:12] LABS: Basophils Percent Auto 0.4 % (0-2); Eosinophils Absolute Auto 0.1 X10*3/uL (0.0-0.4); Eosinophils Percent Auto 0.8 % (0-4); Hematocrit 25.2 % (42.0-52.0); Imm Gran Abs Auto 0.04 X10*3/uL (0.00-0.03); Imm Gran Pct Auto 0.4 % (0.0-0.4); Lymphocytes Absolute Auto 1.6 X10*3/uL (1.2-4.9); Lymphocytes Percent Auto 14.1 % (20-40); Mean Corpuscular HGB Conc 31.7 g/dl (31.0-36.0); Mean Corpuscular Hemoglobin 27.5 pg (27.0-33.0); Mean Corpuscular Volume 86.6 fL (80.0-98.0); Mean Platelet Volume 10.4 fL (9.4-12.4); Monocytes Absolute Auto 0.6 X10*3/uL (0.1-1.2); Neutrophils Absolute Auto 8.8 x10*3/uL (2.0-8.3); Neutrophils Percent Auto 79.3 % (45-73); Platelet Count 222 X10*3/uL (160-400); Red Blood Count 2.91 X10*6/uL (4.60-5.80)
[2022-06-25 12:13] LABS: Glucose, Whole Blood 115 mg/dL (60-115)
[2022-06-25] MEDS: 0.9 % Sodium Chloride 1,000 ML 999 ML IV (12:16)
[2022-06-25] MEDS: ondansetron HCL 4 MG/2 ML VIAL IVPUSH (12:16)
[2022-06-25] MEDS: Morphine Sulfate 4 MG/ML CARTRIDGE IVPUSH (12:16)
[2022-06-25 12:24] LABS: COVID-19 Test Negative (Negative); IDNOW Serial# BCCEAD1C
[2022-06-25 12:26] LABS: IDNOW Serial# 9DB6401D; Influenza A Negative (Negative); Influenza B2 Negative (Negative)
[2022-06-25 12:55] LABS: Alanine Aminotransferase 42 U/L (0-40); Alkaline Phosphatase 89 U/L (39-117); Anion Gap 14 (12-20); Aspartate Amino Transferase 20 U/L (5-37); Bilirubin Total 0.2 mg/dL (0.0-1.0); Blood Urea Nitrogen 26 mg/dL (9-16); Calcium 9.3 mg/dL (8.4-10.2); Carbon Dioxide 29 mmol/L (22-29); Chloride 103 mmol/L (96-108); Creatinine Clr Calc Pharmacy 63.5; Estimated Glomerular Filt Rate 50; Glucose Random 127 mg/dL (60-115); Lipase 8 U/L (8-78); Potassium 5.3 mmol/L (3.3-5.1); Sodium 141 mmol/L (135-145); Total Protein 7.5 g/dL (6.5-8.0)
[2022-06-25 13:59] LABS: Albumin Level 3.5 g/dL (3.5-5.0)
[2022-06-25] MEDS: methADONE HCl 20 MG/2 ML ORAL.CONC 55 MG PO (15:33)
--- NOTE | 2022-06-25 18:21 | MHC.RECOVSUP ---
? Reason for consult Recovery support o Current location: [id number] o Identified substance use concern: Heroin - Withdrawal - Support ? Intervention: o Community resources provided o Harm reduction discussion ? Plan: o Patient to follow up with [facility] after discharge ? Additional information: Met with patient and we talk about MAT.. And his rights.. patient is on MAT but was denied His dose by healthcare customer service cause he was throwing up.. so he had to come to ed to get dose..
== END 2022-06-26 07:18 | disposition home or self-care (01) ==
PROVIDERS: Emergency Provider Emergency Medicine Emergency Medical Services; PCP Internal Medicine
DX: B34.9 Viral infection, unspecified (principal); R10.9 Unspecified abdominal pain; R50.9 Fever, unspecified; R10.84 Generalized abdominal pain; R11.14 Bilious vomiting; Z20.822 Contact with and (suspected) exposure to COVID-19; Z79.899 Other long term (current) drug therapy
CPT/HCPCS: 36415; 80053; 82947; 83690; 85025; 87502; 87635; 93005; 96374; 96375; 99284; 99285; J2270; J2405

== ENCOUNTER 2022-07-20 09:29 | Emergency (ER) | payer MEDICARE, MEDICAID, SELFPAY ==
--- NOTE | ~2022-07-20 | CT_ITS ---
EXAMINATION: CT ABDOMEN AND PELVIS WITHOUT CONTRAST CLINICAL INFORMATION: Abdominal pain COMPARISON: Previous CT of the abdomen and pelvis January 2022 TECHNIQUE: Multidetector volumetric imaging was performed from the superior aspect of the liver through the pubic symphysis. Sagittal and coronal reformatted images were obtained on the technologist's workstation. This CT examination was performed using dose optimization techniques as appropriate, variously including the following: *Automated exposure control *Adjustment of mA and/or kV according to patient size (this includes techniques or standardized protocols for targeted exams where dose is matched to indication/reason for exam; i.e. extremities or head) *Use of iterative reconstruction technique DLP: 755 mGy-cm FINDINGS: LUNG BASES: The visualized lung bases are unremarkable. LIVER, GALLBLADDER, AND BILIARY TREE: The liver is normal in size, shape, and attenuation. No focal hepatic lesion or biliary ductal dilatation is present. There is high attenuation seen dependently in the gallbladder suggestive of small layering gallstones. The gallbladder is otherwise normal. PANCREAS: There is fatty infiltration of the head of the pancreas. The pancreas is otherwise normal. SPLEEN: Unremarkable. ADRENAL GLANDS: Unremarkable. KIDNEYS AND URETERS: The kidneys are normal in size, shape, and attenuation. No hydronephrosis, hydroureter, or calculi seen. No perinephric stranding. There is a stable 1 cm high attenuation lesion exophytic to the medial upper pole the left kidney. This probably represents a hyperdense cyst. No imaging follow-up recommended. BLADDER: Normal GASTROINTESTINAL TRACT: The small and large bowel are unremarkable. The appendix is not seen. No inflammatory changes in the right lower quadrant. ABDOMINAL WALL: No significant hernia is appreciated. LYMPH NODES: Mild small bowel mesentery lymphadenopathy and fat stranding. Appearance is similar to previous exam January 2022. Small retroperitoneal periportal lymph nodes. No enlarged lymph nodes. VASCULAR: Atherosclerotic disease. No aneurysm. PELVIC VISCERA: Radiation seeds in the prostate gland. OSSEOUS STRUCTURES: Stable postsurgical changes to the lower lumbar spine. Degenerative changes of the spine and hip joints. CT/CT abdomen pelvis wo IV con IMPRESSION: No acute findings. Gallstones. Stable 1 cm probable hyperdense cyst in the left kidney. 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 Fleischner guidelines were followed.
[2022-07-20 09:34] VITALS: BP 141/64; PULSE 84; RESP 16; TEMP 36.6; O2SAT 100; BMI 32.8
--- NOTE | 2022-07-20 10:03 | ED.NAVMDI ---
HPI - Nausea/Vomiting/Diarrhea General Chief complaint: Nausea/Vomiting/Diarrhea Stated complaint: VOMITING Time Seen by Provider: 07/20/22 09:40 Source: patient Mode of arrival: ambulatory Limitations: no limitations History of Present Illness HPI Narrative: This is a 57 years old man with history of opioid use disorder presented to the emergency department with chief complaint of nausea vomiting unable to keep anything down since last night. Patient has also history of diabetes and peripheral vascular disease MD elicited complaint: nausea, vomiting and diarrhea Onset (ago): day(s) (1) Description of vomiting: watery Description of diarrhea: watery Associated nausea: Yes Location of pain: none Quality: cramping Exacerbating factors: none Relieving factors: none Related Data Home Medications Medication Instructions Recorded Confirmed aspirin 81 mg chewable tablet 1 tab PO DAILY 06/17/22 06/17/22 atorvastatin 10 mg tablet 1 tab PO DAILY 06/17/22 06/17/22 citalopram 20 mg tablet 1 tab PO DAILY 06/17/22 06/17/22 clopidogrel 75 mg tablet 1 tab PO DAILY 06/17/22 06/17/22 ferrous sulfate 324 mg (65 mg 1 tab PO BID 06/17/22 06/17/22 iron) tablet,delayed release insulin aspart U-100 100 unit/mL 0 sliding scale dose subcut DAILY 06/17/22 06/17/22 (3 mL) subcutaneous pen (Novolog Flexpen U-100 Insulin aspart) lisinopril 20 mg tablet 20 mg PO DAILY 06/17/22 06/17/22 metformin 1,000 mg tablet 1 tab PO BID 06/17/22 06/17/22 methadone 10 mg/mL oral concentrate 55 mg PO DAILY 06/17/22 06/17/22 metoprolol succinate 50 mg 1 tab PO DAILY 06/17/22 06/17/22 tablet,extended release 24 hr nifedipine 30 mg tablet,extended 1 tab PO DAILY 06/17/22 06/17/22 release 24 hr omeprazole 20 mg tablet,delayed 20 mg PO DAILY 06/17/22 06/17/22 release tamsulosin 0.4 mg capsule 1 cap PO DAILY 06/17/22 06/17/22 Previous Rx's Medication Instructions Recorded insulin glargine 100 unit/mL 70 unit (0.7 mL) subcut DAILY #10 06/19/22 subcutaneous solution (Lantus mL U-100 Insulin) ondansetron 4 mg disintegrating 4 mg PO Q6-8H PRN nausea and 06/25/22 tablet vomiting #14 tabs metoclopramide HCl 10 mg tablet 10 mg PO Q6H PRN nausea and 07/20/22 (Reglan) vomiting #15 tabs Allergies Allergy/AdvReac Type Severity Reaction Status Date / Time No Known Allergies Allergy Verified 02/01/22 12:12 [No Known Allergies*] Review of Systems Constitutional: Constitutional: Reports no additional constitutional complaints Cardiovascular: Cardiovascular: Reports no additional cardiovascular complaints Respiratory: Respiratory: Reports no additional respiratory complaints Gastrointestinal: Gastrointestinal: Reports no additional gastrointestinal complaints, Reports nausea and Reports vomiting PMFSH Past Medical History Medical History Anemia Chronic anemia CKD (chronic kidney disease) Diabetes Diabetes type 2, controlled Diabetic infection of left foot Fever of unknown origin History of prostate cancer Migraine Opioid use disorder Osteomyelitis PAD (peripheral artery disease) Surgical History S/P transmetatarsal amputation of foot Family History Family History Mother No pertinent family history Social History Social History Household Members: Spouse Housing: Apartment Do you presently have visiting nurse or other home services: Yes Alcohol intake: never Patient Tobacco Use Status: Never used Tobacco Substance Use Type: Opiates Advance Directives: Yes Advance Directives Information Provided: Yes Advance Directives on File: No service: No Current occupational status: disabled Physical Exam Vital Signs: Vital Signs: Last Vital Signs Temp 97.7 F 07/20/22 13:57 Pulse 76 07/20/22 13:57 Resp 14 07/20/22 13:57 BP 98/70 07/20/22 13:57 Pulse Ox 99 07/20/22 13:57 O2 Del Method 07/20/22 13:57 BMI result Body Mass Index 32.8 Const: General: cooperative Nutritional Appearance: well nourished Orientation/consciousness: patient oriented x3 HEENT: Head: Yes normal to inspection Face and sinus: Yes normal facial exam Mouth: Normal oral and palatal mucosa present Teeth and gingiva: dentition normal Neck: Neck: Yes normal visual inspection and Yes full ROM Chest: Chest palpation & inspection: normal inspection of the chest Resp: Effort & Inspection: normal respiratory effort Auscultation: clear to auscultation bilaterally Cardio: Jugular venous distension: no JVD Rate: regular rate Rhythm: regular rhythm GI: Inspection: Yes normal to inspection Palpation (GI): Soft to palpation, nontender and no guarding : General: Yes no CVA tenderness Back/Spine/Pelvis: Back: no CVA tenderness Skin: General skin exam: no rashes or lesions noted, elasticity normal and turgor normal Lesions: no lesions Rashes: no rashes Neuro: General: patient oriented x3 Cranial nerves: Yes CN's II-XII intact bilaterally Course Reevaluation(s) Reevaluation #1: he is feeling better he is drinking fluids and eating crakers,ct negative but gallstones but no cholecystitis will d/c home Medications Administered Discontinued Medications Generic Name Dose Route Start Last Admin Trade Name Freq PRN Reason Stop Dose Admin Sodium Chloride 1,000 mls @ 999 mls/hr 07/20/22 10:00 07/20/22 12:08 Ns IV 07/20/22 11:00 Infused .Q1H1M MARIA ELENA Infusion Ondansetron HCl 4 mg 07/20/22 09:46 07/20/22 10:46 Ondansetron Hcl 4 Mg/2 Ml Vial IVPUSH 07/20/22 09:47 4 mg ONCE ONE Administration Medical Decision Making Differential Diagnosis Differential Diagnoses: The differential diagnosis associated with the presentation includes (SBO/Colitis/diverticulitis) Admission/Observation Consideration of admission/observation: Escalation of care including admission/observation considered Lab Data MDM Lab Attestation statement: I reviewed the patient's lab results. Result Diagrams: 07/20/22 10:16 07/20/22 10:16 Labs: Lab Results 07/20/22 07/20/22 07/20/22 Range/Units 10:07 10:16 10:16 WBC 9.6 (4.8-10.8) X10*3/uL RBC 2.91 L (4.60-5.80) X10*6/uL Hgb 8.1 L (14.0-18.0) g/dl Hct 25.3 L (42.0-52.0) % MCV 86.9 (80.0-98.0) fL MCH 27.8 (27.0-33.0) pg MCHC 32.0 (31.0-36.0) g/dl RDW 14.9 (11.0-16.0) % Plt Count 219 (160-400) X10*3/uL MPV 11.5 (9.4-12.4) fL Immature Gran % (Auto) 0.3 (0.0-0.4) % Neut % (Auto) 70.6 (45-73) % Lymph % (Auto) 21.0 (20-40) % Harmon % (Auto) 6.6 (2-11) % Eos % (Auto) 1.1 (0-4) % Baso % (Auto) 0.4 (0-2) % Lymph # (Auto) 2.0 (1.2-4.9) X10*3/uL [place]on # (Auto) 0.6 (0.1-1.2) X10*3/uL Eos # (Auto) 0.1 (0.0-0.4) X10*3/uL Baso # (Auto) 0.0 (0.0-0.2) X10*3/uL Abs Immat Gran (auto) 0.03 (0.00-0.03) X10*3/uL Absolute Neuts (auto) 6.8 (2.0-8.3) x10*3/uL Absolute Nucleated RBC 0.000 (0.0-0.012) X10*3/uL Nucleated RBC % (auto) 0.0 (0.0-0.2) /100WBC Smear Tech's Comments VERIFIED Sodium 138 (135-145) mmol/L Potassium 4.8 (3.3-5.1) mmol/L Chloride 104 (96-108) mmol/L Carbon Dioxide 26 (22-29) mmol/L Anion Gap 13 (12-20) BUN 29 H (9-16) mg/dL Creatinine 1.47 H (0.5-1.4) mg/dL Estim Creat Clear Calc 60.9 Estimated GFR 49 Random Glucose 70 D (60-115) mg/dL Calcium 9.2 (8.4-10.2) mg/dL Total Bilirubin 0.2 (0.0-1.0) mg/dL Direct Bilirubin < 0.2 (0.0-0.5) mg/dL AST 16 (5-37) U/L ALT 18 (0-40) U/L Alkaline Phosphatase 64 D (39-117) U/L Total Protein 7.3 (6.5-8.0) g/dL Albumin 3.6 (3.5-5.0) g/dL Lipase 7 L (8-78) U/L Urine Color Yellow Urine Appearance Clear Urine pH 5.0 (5.0-9.0) Ur Specific [place] 1.020 (1.005-1.025) Urine Protein Trace (Neg-Trace) mg/dL Urine Glucose (UA) Negative (Negative) mg/dL Urine Ketones Negative (Negative) mg/dL Urine Blood Negative (Negative) Urine Nitrite Negative (Negative) Ur Leukocyte Esterase Trace H (Negative) Urine RBC 3-5 H (0-2) /HPF Urine WBC 0-5 (0-5) /HPF Ur Squamous Epith Cells 3-5 (0-2) /HPF Urine Bacteria None Seen (None Seen) Hyaline Casts 0-2 (0-2) /LPF COVID-19 (JOSE DAVID) (Negative) COVID-19 Clin Com 07/20/22 Range/Units 11:05 WBC (4.8-10.8) X10*3/uL RBC (4.60-5.80) X10*6/uL Hgb (14.0-18.0) g/dl Hct (42.0-52.0) % MCV (80.0-98.0) fL MCH (27.0-33.0) pg MCHC (31.0-36.0) g/dl RDW (11.0-16.0) % Plt Count (160-400) X10*3/uL MPV (9.4-12.4) fL Immature Gran % (Auto) (0.0-0.4) % Neut % (Auto) (45-73) % Lymph % (Auto) (20-40) % Harmon % (Auto) (2-11) % Eos % (Auto) (0-4) % Baso % (Auto) (0-2) % Lymph # (Auto) (1.2-4.9) X10*3/uL Harmon # (Auto) (0.1-1.2) X10*3/uL Eos # (Auto) (0.0-0.4) X10*3/uL Baso # (Auto) (0.0-0.2) X10*3/uL Abs Immat Gran (auto) (0.00-0.03) X10*3/uL Absolute Neuts (auto) (2.0-8.3) x10*3/uL Absolute Nucleated RBC (0.0-0.012) X10*3/uL Nucleated RBC % (auto) (0.0-0.2) /100WBC Smear Tech's Comments Sodium (135-145) mmol/L Potassium (3.3-5.1) mmol/L Chloride (96-108) mmol/L Carbon Dioxide (22-29) mmol/L Anion Gap (12-20) BUN (9-16) mg/dL Creatinine (0.5-1.4) mg/dL Estim Creat Clear Calc Estimated GFR Random Glucose (60-115) mg/dL Calcium (8.4-10.2) mg/dL Total Bilirubin (0.0-1.0) mg/dL Direct Bilirubin (0.0-0.5) mg/dL AST (5-37) U/L ALT (0-40) U/L Alkaline Phosphatase (39-117) U/L Total Protein (6.5-8.0) g/dL Albumin (3.5-5.0) g/dL Lipase (8-78) U/L Urine Color Urine Appearance Urine pH (5.0-9.0) Ur Specific [place]a (1.005-1.025) Urine Protein (Neg-Trace) mg/dL Urine Glucose (UA) (Negative) mg/dL Urine Ketones (Negative) mg/dL Urine Blood (Negative) Urine Nitrite (Negative) Ur Leukocyte Esterase (Negative) Urine RBC (0-2) /HPF Urine WBC (0-5) /HPF Ur Squamous Epith Cells (0-2) /HPF Urine Bacteria (None Seen) Hyaline Casts (0-2) /LPF COVID-19 (JOSE DAVID) Negative (Negative) COVID-19 Clin Com See Note Radiology Impression Discussion of test interpretation with radiology: I have reviewed the radiologist's reading. Radiologist Impression: GASTROINTESTINAL TRACT: The small and large bowel are unremarkable. The appendix is not seen. No inflammatory changes in the right lower quadrant. ABDOMINAL WALL: No significant hernia is appreciated.? LYMPH NODES: Mild small bowel mesentery lymphadenopathy and fat stranding. Appearance is similar to previous exam January 2022. Small retroperitoneal periportal lymph nodes. No enlarged lymph nodes. VASCULAR: Atherosclerotic disease. No aneurysm. PELVIC VISCERA: Radiation seeds in the prostate gland.? OSSEOUS STRUCTURES: Stable postsurgical changes to the lower lumbar spine. Degenerative changes of the spine and hip joints.? CT/CT abdomen pelvis wo IV con IMPRESSION: No acute findings. Gallstones. Stable 1 cm probable hyperdense cyst in the left kidney. 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 ? Fleischner guidelines were followed. Dictated By: Katja Graves MD Signed By: <Electronically signed by Katja Graves MD in [place]> 07/20/22 1158 Discharge Plan Discharge Clinical Impression: Vomiting Patient Disposition: Home, Self-Care Instructions: Acute Nausea and Vomiting (ED) Additional Instructions: follow up with Primary care doctor ,return if worse,any concern Prescriptions: New metoclopramide HCl [Reglan] 10 mg tablet 10 mg PO Q6H PRN (Reason: nausea and vomiting) Qty: 15 0RF No Action nifedipine 30 mg tablet extended release 24hr 1 tab PO DAILY metoprolol succinate 50 mg tablet extended release 24 hr 1 tab PO DAILY clopidogrel 75 mg tablet 1 tab PO DAILY citalopram 20 mg tablet 1 tab PO DAILY tamsulosin 0.4 mg capsule 1 cap PO DAILY metformin 1,000 mg tablet 1 tab PO BID aspirin 81 mg tablet,chewable 1 tab PO DAILY insulin aspart U-100 [Novolog Flexpen U-100 Insulin] 100 unit/mL (3 mL) insulin pen 0 sliding scale dose subcut DAILY ferrous sulfate 324 mg (65 mg iron) tablet,delayed release (DR/EC) 1 tab PO BID methadone 10 mg/mL Concentrate 55 mg PO DAILY atorvastatin 10 mg tablet 1 tab PO DAILY lisinopril 20 mg tablet 20 mg PO DAILY omeprazole 20 mg Tablet,Delayed Release (Dr/Ec) 20 mg PO DAILY insulin glargine [Lantus U-100 Insulin] 100 unit/mL solution 70 unit subcut DAILY Qty: 10 0RF ondansetron 4 mg tablet,disintegrating 4 mg PO Q6-8H PRN (Reason: nausea and vomiting) Qty: 14 0RF Referrals: Twan Nunez MD [Primary Care Provider] - 2 days Interventions: ED Discharge Assessment Last Done: 07/20/22 14:56 Discharge Date/Time: 07/20/22 14:56
[2022-07-20 10:26] LABS: Appearance Urine Clear; Color Urine Yellow; Glucose Urine UA Negative (Negative); Leukocyte Esterase Urine Trace (Negative); Nitrite Urine Negative (Negative); UMIC TRIGGER UACC YES; Urine Blood Negative (Negative); Urine Ketones Negative (Negative); Urine Protein Trace mg/dL (Neg-Trace)
[2022-07-20 10:29] LABS: Basophils Percent Auto 0.4 % (0-2); Eosinophils Absolute Auto 0.1 X10*3/uL (0.0-0.4); Eosinophils Percent Auto 1.1 % (0-4); Hematocrit 25.3 % (42.0-52.0); Hemoglobin 8.1 g/dl (14.0-18.0); Imm Gran Abs Auto 0.03 X10*3/uL (0.00-0.03); Imm Gran Pct Auto 0.3 % (0.0-0.4); MANUAL DIFF FLAG SCAN; Mean Corpuscular Hemoglobin 27.8 pg (27.0-33.0); Mean Corpuscular Volume 86.9 fL (80.0-98.0); Mean Platelet Volume 11.5 fL (9.4-12.4); Monocytes Absolute Auto 0.6 X10*3/uL (0.1-1.2); Monocytes Percent Auto 6.6 % (2-11); Neutrophils Absolute Auto 6.8 x10*3/uL (2.0-8.3); Neutrophils Percent Auto 70.6 % (45-73); PLT CLUMP 1; Red Blood Count 2.91 X10*6/uL (4.60-5.80); Red Cell Distribution Width 14.9 % (11.0-16.0); SCAN SMEAR FLAG 1; White Blood Count 9.6 X10*3/uL (4.8-10.8)
[2022-07-20 10:30] LABS: Platelet Count 219 X10*3/uL (160-400)
[2022-07-20 10:45] LABS: Bacteria Urine None Seen (None Seen); Hyaline Casts Urine 0-2 /LPF (0-2); WBC Urine 0-5 /HPF (0-5)
[2022-07-20] MEDS: 0.9 % Sodium Chloride 1,000 ML 999 ML IV (10:46)
[2022-07-20] MEDS: ondansetron HCL 4 MG/2 ML VIAL IVPUSH (10:46)
[2022-07-20 10:51] LABS: SLIDE REVIEW VERIFIED
[2022-07-20 10:54] LABS: Alanine Aminotransferase 18 U/L (0-40); Albumin Level 3.6 g/dL (3.5-5.0); Alkaline Phosphatase 64 U/L (39-117); Anion Gap 13 (12-20); Aspartate Amino Transferase 16 U/L (5-37); Bilirubin Direct < 0.2 mg/dL (0.0-0.5); Blood Urea Nitrogen 29 mg/dL (9-16); Calcium 9.2 mg/dL (8.4-10.2); Carbon Dioxide 26 mmol/L (22-29); Chloride 104 mmol/L (96-108); Creatinine Clr Calc Pharmacy 60.9; Estimated Glomerular Filt Rate 49; Glucose Random 70 mg/dL (60-115); Lipase 7 U/L (8-78); Potassium 4.8 mmol/L (3.3-5.1); Sodium 138 mmol/L (135-145); Total Protein 7.3 g/dL (6.5-8.0)
[2022-07-20 11:09] LABS: Bilirubin Total 0.2 mg/dL (0.0-1.0)
[2022-07-20 11:30] LABS: COVID-19 Test Negative (Negative); IDNOW Serial# 9DB6401D
[2022-07-20 13:57] VITALS: BP 98/70; PULSE 76; RESP 14; TEMP 36.5; O2SAT 99
== END 2022-07-20 14:56 | disposition home or self-care (01) ==
PROVIDERS: Emergency Provider Emergency Medicine; PCP Internal Medicine
DX: R11.2 Nausea with vomiting, unspecified (principal); R10.13 Epigastric pain; Z20.822 Contact with and (suspected) exposure to COVID-19; Z79.899 Other long term (current) drug therapy
CPT/HCPCS: 36415; 74176; 80048; 80076; 81001; 83690; 85025; 87635; 96361; 96374; 99283; 99284; J2405

== ENCOUNTER → 2022-08-31 14:53 | Outpatient (BNVA) | payer MEDICARE, MEDICAID, SELFPAY | PROVIDERS: PCP Internal Medicine; Visit Provider Surgery Vascular Surgery | DX: Z89.422 Acquired absence of other left toe(s) (principal) | CPT/HCPCS: 99212 ==

== ENCOUNTER → 2022-12-28 13:41 | Outpatient (BNVA) | payer MEDICARE, MEDICAID, SELFPAY | PROVIDERS: PCP Internal Medicine; Visit Provider Surgery Vascular Surgery | DX: I73.9 Peripheral vascular disease, unspecified (principal); E11.22 Type 2 diabetes mellitus with diabetic chronic kidney disease; N18.9 Chronic kidney disease, unspecified; Z89.422 Acquired absence of other left toe(s) | CPT/HCPCS: 99212 ==

== ENCOUNTER 2023-01-11 12:27 | Inpatient (IN) | payer MEDICARE, MEDICAID, SELFPAY ==
--- NOTE | ~2023-01-11 | CT_ITS ---
EXAMINATION: CT ABDOMEN AND PELVIS WITH CONTRAST CLINICAL INFORMATION: Abdominal pain with rectal bleeding. COMPARISON: CT scan of the abdomen and pelvis dated 07/20/2022. TECHNIQUE: Multidetector volumetric images were obtained from the superior aspect of the liver through the pubic symphysis following administration 85 mL of Omnipaque 350 intravenous contrast. Sagittal and coronal reformatted images were obtained on the technologist's workstation. Oral contrast: No This CT examination was performed using dose optimization techniques as appropriate, variously including the following: *Automated exposure control *Adjustment of mA and/or kV according to patient size (this includes techniques or standardized protocols for targeted exams where dose is matched to indication/reason for exam; i.e. extremities or head) *Use of iterative reconstruction technique DLP: 11 622 mGy-cm FINDINGS: LUNG BASES: The visualized lung bases are unremarkable. LIVER, GALLBLADDER, AND BILIARY TREE: No significant hepatic abnormality. Mild dependent sludge in the gallbladder without surrounding abnormality. No significant biliary ductal dilatation. PANCREAS: Mild pancreatic fatty atrophy most pronounced in the head. No pancreatic ductal dilatation. No peripancreatic abnormality. SPLEEN: Unremarkable. ADRENAL GLANDS: Unremarkable. KIDNEYS AND URETERS: Several small low-attenuation foci bilaterally. One of the largest is seen in the lower pole the right kidney measuring 0.6 cm (image 53, series 7). Minimal urothelial thickening is seen on the right with subtle infiltrative changes. No nephrolithiasis. The ureters are unremarkable. BLADDER: Mildly distended with mild mural thickening, but no focal mural or intraluminal abnormality. GASTROINTESTINAL TRACT: The stomach and small bowel are unremarkable. The appendix is not visualized. No evidence for acute appendicitis. The colon and rectum are unremarkable. ABDOMINAL WALL: No significant hernia is appreciated. LYMPH NODES: Mildly prominent retroperitoneal lymph nodes without pathologic enlargement. A sales representative aircraft left periaortic infrarenal reniform lymph node measures 0.9 cm in short axis (image 52, series 7). VASCULAR: Mild atherosclerosis without significant dilatation. PELVIC VISCERA: Prostate postsurgical changes without significant change. OSSEOUS STRUCTURES: Mild degenerative changes without acute abnormality. CT/CT abdomen pelvis w IV con IMPRESSION: 1. Similar appearance of the kidneys bilaterally without definitive acute abnormality. Probable small renal cysts bilaterally without significant change not requiring follow-up. There is mild increased mural thickening in the urinary bladder which could be secondary to a lower degree of distention. Mild cystitis cannot be completely excluded. No focal abnormality. 2. No significant colorectal abnormality or change. Normal bleeding or persists, correlation with physical exam and colonoscopy is recommended.
[2023-01-11 12:45] VITALS: BP 157/92; PULSE 82; O2SAT 97
[2023-01-11 12:48] VITALS: BP 155/60; PULSE 77; RESP 18; TEMP 37.1; O2SAT 97; BMI 29.0
--- NOTE | 2023-01-11 13:24 | ED_ITS ---
HPI - Recheck/Abnormal Lab/Rx General Chief Complaint: Recheck/Abnormal Lab/Rx Stated Complaint: ABN LAB RESULTS PER EMS Time Seen by Provider: 01/11/23 13:17 Source: patient, RN notes reviewed and old records reviewed Mode of arrival: ambulatory Limitations: no limitations History of Present Illness HPI narrative: 87-year-old male presents after having some dark stools and seen by his primary care doctor who states he had low H&H to sent in patient has baseline anemia with his most recent hemoglobin between 7.4-8.1 over the past several years. Patient is a very poor historian he states he is coming in for his kidneys. Patient states that his visiting nurse came and he was sent here. MD complaint: abnormal lab Related Data Home Medications Medication Instructions Recorded Confirmed clopidogrel 75 mg tablet 1 tab PO DAILY 06/17/22 06/17/22 ferrous sulfate 324 mg (65 mg 1 tab PO BID 06/17/22 06/17/22 iron) tablet,delayed release insulin aspart U-100 100 unit/mL 0 sliding scale dose subcut DAILY 06/17/22 06/17/22 (3 mL) subcutaneous pen (Novolog FlexPen U-100 Insulin aspart) lisinopril 20 mg tablet 20 mg PO DAILY 06/17/22 06/17/22 methadone 10 mg/mL oral concentrate 55 mg PO DAILY 06/17/22 06/17/22 tamsulosin 0.4 mg capsule 1 cap PO DAILY 06/17/22 06/17/22 insulin glargine 100 unit/mL (3 unit subcut 08/31/22 mL) subcutaneous pen (Lantus Solostar U-100 Insulin) Previous Rx's Medication Instructions Recorded insulin glargine 100 unit/mL 70 unit (0.7 mL) subcut DAILY #10 06/19/22 subcutaneous solution (Lantus mL U-100 Insulin) ondansetron 4 mg disintegrating 4 mg PO Q6-8H PRN nausea and 06/25/22 tablet vomiting #14 tabs Allergies Allergy/AdvReac Type Severity Reaction Status Date / Time No Known Allergies Allergy Verified 12/28/22 13:52 [No Known Allergies*] Review of Systems Review of Systems: Review of systems: General: Patient denies any fever chills recent illness or falls Musculoskeletal: Denies back pain or body aches or other injuries HEENT: denies headache, runny nose, ear pain Respiratory: denies shortness of breath, cough Cardiovascular: no chest pain or palpitations : denies dysuria, frequency Abdomen: no nausea vomiting denies abdominal pain dark stools Extremities: no swelling, no pain Skin: no diaphoresis Yes all other systems are reviewed and are negative PMFSH Past Medical History Medical History Anemia Chronic anemia CKD (chronic kidney disease) Diabetes Diabetes type 2, controlled Diabetic infection of left foot Fever of unknown origin History of prostate cancer Migraine Opioid use disorder Osteomyelitis PAD (peripheral artery disease) Surgical History S/P transmetatarsal amputation of foot Family History Family History Mother No pertinent family history Social History Social History Household Members: Spouse Housing: Apartment Do you presently have visiting nurse or other home services: Yes Alcohol intake: never Patient Tobacco Use Status: Never used Tobacco Substance Use Type: Opiates Advance Directives: Yes Advance Directives Information Provided: Yes Advance Directives on File: No service: No Current occupational status: disabled Physical Exam Vital Signs: Vital Signs: Last Vital Signs Temp 98.7 F 01/11/23 12:48 Pulse 71 01/11/23 14:32 Resp 13 01/11/23 14:32 BP 126/60 01/11/23 14:32 Pulse Ox 97 01/11/23 14:32 O2 Del Method Room Air 01/11/23 14:32 BMI result Body Mass Index 29.0 General: Well-appearing well-nourished in no signs of distress HEENT: Normocephalic atraumatic Neck: No signs of JVD, no masses no tenderness or lymphadenopathy Cardiovascular: Regular rate and rhythm Respiratory: Clear to auscultation bilaterally Abdomen: Soft tender stand tire upper abdomen no lower abdominal tenderness no masses rectal exam performed guiac positive software quality manager confirmed. Extremities: Normal pedal pulses no signs of edema Skin: Dry warm no rashes Back: No tenderness full ROM Medications Administered Discontinued Medications Generic Name Dose Route Start Last Admin Trade Name Freq PRN Reason Stop Dose Admin Sodium Chloride 1,000 mls @ 999 mls/hr 01/11/23 13:30 01/11/23 15:24 Ns IV 01/11/23 14:30 Infused .Q1H1M MARIA ELENA Infusion Iohexol 85 ml 01/11/23 14:59 01/11/23 14:59 Iohexol 350 Mg/Ml 75 Ml Infus..Btl IV 01/11/23 15:00 85 ml ONCE ONE Administration Morphine Sulfate 4 mg 01/11/23 13:35 01/11/23 14:22 Morphine Sulfate 4 Mg/Ml Cartridge IVPUSH 01/11/23 13:36 Not Given ONCE ONE Protocol Medical Decision Making Medical Decision Making MDM Narrative: 57-year-old with guaiac-positive stools most stools were normal concern for rectal bleeding colon cancer and anemia patient has baseline so it will recheck his labs. Differential Diagnosis Differential Diagnoses: The differential diagnosis associated with the presentation includes Colon cancer GI bleeding or upper versus lower Admission/Observation Consideration of admission/observation: Escalation of care including admission/observation considered Consult Healthcare Provider Management of the patient was discussed with: Hospitalist and Printing And Stamping Supervisor I spoke with Dr. Kwon who agreed transfusion is not emergently necessary but admission seemed like a good idea for repeat testing Lab Data MDM Lab Attestation statement: I reviewed the patient's lab results. Baseline anemia with a mid drop 01/11/23 14:10 01/11/23 14:10 Labs: Lab Results 01/11/23 01/11/23 01/11/23 Range/Units 14:10 14:10 14:10 WBC 6.3 (4.8-10.8) X10*3/uL RBC 2.79 L (4.60-5.80) X10*6/uL Hgb 7.1 L (14.0-18.0) g/dl Hct 23.1 L (42.0-52.0) % MCV 82.8 (80.0-98.0) fL MCH 25.4 L (27.0-33.0) pg MCHC 30.7 L (31.0-36.0) g/dl RDW 14.4 (11.0-16.0) % Plt Count 190 (160-400) X10*3/uL MPV 10.9 (9.4-12.4) fL Immature Gran % (Auto) 0.2 (0.0-0.4) % Neut % (Auto) 62.8 (45-73) % Lymph % (Auto) 25.5 (20-40) % [place] % (Auto) 8.5 (2-11) % Eos % (Auto) 2.5 (0-4) % Baso % (Auto) 0.5 (0-2) % Lymph # (Auto) 1.6 (1.2-4.9) X10*3/uL [place] # (Auto) 0.5 (0.1-1.2) X10*3/uL Eos # (Auto) 0.2 (0.0-0.4) X10*3/uL Baso # (Auto) 0.0 (0.0-0.2) X10*3/uL Abs Immat Gran (auto) 0.01 (0.00-0.03) X10*3/uL Absolute Neuts (auto) 4.0 (2.0-8.3) x10*3/uL Absolute Nucleated RBC 0.000 (0.0-0.012) X10*3/uL Nucleated RBC % (auto) 0.0 (0.0-0.2) /100WBC PT (10.0-13.1) SEC INR (0.9-1.1) APTT 30.1 (26.0-36.4) SEC Sodium 139 (135-145) mmol/L Potassium 5.5 H (3.3-5.1) mmol/L Chloride 108 (96-108) mmol/L Carbon Dioxide 24 (22-29) mmol/L Anion Gap 13 (12-20) BUN 35 H (9-16) mg/dL Creatinine 1.43 H (0.5-1.4) mg/dL Estim Creat Clear Calc 57.1 Estimated GFR 51 Random Glucose 120 H (60-115) mg/dL Calcium 9.1 (8.4-10.2) mg/dL Total Bilirubin 0.2 (0.0-1.0) mg/dL Direct Bilirubin < 0.2 (0.0-0.5) mg/dL AST 14 (5-37) U/L ALT 27 (0-40) U/L Alkaline Phosphatase 70 (39-117) U/L Total Protein 7.1 (6.5-8.0) g/dL Albumin 3.7 (3.5-5.0) g/dL Lipase 8 (8-78) U/L Blood Type Antibody Screen 01/11/23 01/11/23 Range/Units 14:10 14:38 WBC (4.8-10.8) X10*3/uL RBC (4.60-5.80) X10*6/uL Hgb (14.0-18.0) g/dl Hct (42.0-52.0) % MCV (80.0-98.0) fL MCH (27.0-33.0) pg MCHC (31.0-36.0) g/dl RDW (11.0-16.0) % Plt Count (160-400) X10*3/uL MPV (9.4-12.4) fL Immature Gran % (Auto) (0.0-0.4) % Neut % (Auto) (45-73) % Lymph % (Auto) (20-40) % [place] % (Auto) (2-11) % Eos % (Auto) (0-4) % Baso % (Auto) (0-2) % Lymph # (Auto) (1.2-4.9) X10*3/uL [place] # (Auto) (0.1-1.2) X10*3/uL Eos # (Auto) (0.0-0.4) X10*3/uL Baso # (Auto) (0.0-0.2) X10*3/uL Abs Immat Gran (auto) (0.00-0.03) X10*3/uL Absolute Neuts (auto) (2.0-8.3) x10*3/uL Absolute Nucleated RBC (0.0-0.012) X10*3/uL Nucleated RBC % (auto) (0.0-0.2) /100WBC PT 11.9 (10.0-13.1) SEC INR 1.0 (0.9-1.1) APTT (26.0-36.4) SEC Sodium (135-145) mmol/L Potassium (3.3-5.1) mmol/L Chloride (96-108) mmol/L Carbon Dioxide (22-29) mmol/L Anion Gap (12-20) BUN (9-16) mg/dL Creatinine (0.5-1.4) mg/dL Estim Creat Clear Calc Estimated GFR Random Glucose (60-115) mg/dL Calcium (8.4-10.2) mg/dL Total Bilirubin (0.0-1.0) mg/dL Direct Bilirubin (0.0-0.5) mg/dL AST (5-37) U/L ALT (0-40) U/L Alkaline Phosphatase (39-117) U/L Total Protein (6.5-8.0) g/dL Albumin (3.5-5.0) g/dL Lipase (8-78) U/L Blood Type AB Positive Antibody Screen NEGATIVE Radiology Impression Discussion of test interpretation with radiology: I have reviewed the radiologist's reading. External Record Review External record reviewed: Inpatient record and Outpatient record Critical Care Time Critical Care Time Critical Care Time: Yes Total Critical Care Time: 40 Attestation: Discussion with video production coordinator about possible transfusions well as talking to the patient about the need for admission recurrent checks for anemia. Discharge Plan Discharge Clinical Impression: Anemia, Painless rectal bleeding Patient Disposition: Admitted As Inpatient Prescriptions: No Action clopidogrel 75 mg tablet 1 tab PO DAILY tamsulosin 0.4 mg capsule 1 cap PO DAILY insulin aspart U-100 [Novolog FlexPen U-100 Insulin] 100 unit/mL (3 mL) insulin pen 0 sliding scale dose subcut DAILY ferrous sulfate 324 mg (65 mg iron) tablet,delayed release (DR/EC) 1 tab PO BID methadone 10 mg/mL Concentrate 55 mg PO DAILY lisinopril 20 mg tablet 20 mg PO DAILY insulin glargine [Lantus U-100 Insulin] 100 unit/mL solution 70 unit subcut DAILY Qty: 10 0RF ondansetron 4 mg tablet,disintegrating 4 mg PO Q6-8H PRN (Reason: nausea and vomiting) Qty: 14 0RF insulin glargine [Lantus Solostar U-100 Insulin] 100 unit/mL (3 mL) insulin pen subcut
[2023-01-11 14:14] LABS: MANUAL DIFF FLAG NO
[2023-01-11 14:18] LABS: Basophils Percent Auto 0.5 % (0-2); Eosinophils Absolute Auto 0.2 X10*3/uL (0.0-0.4); Eosinophils Percent Auto 2.5 % (0-4); Hematocrit 23.1 % (42.0-52.0); Hemoglobin 7.1 g/dl (14.0-18.0); Imm Gran Abs Auto 0.01 X10*3/uL (0.00-0.03); Imm Gran Pct Auto 0.2 % (0.0-0.4); Lymphocytes Absolute Auto 1.6 X10*3/uL (1.2-4.9); Lymphocytes Percent Auto 25.5 % (20-40); Mean Corpuscular HGB Conc 30.7 g/dl (31.0-36.0); Mean Corpuscular Hemoglobin 25.4 pg (27.0-33.0); Mean Corpuscular Volume 82.8 fL (80.0-98.0); Mean Platelet Volume 10.9 fL (9.4-12.4); Monocytes Absolute Auto 0.5 X10*3/uL (0.1-1.2); Monocytes Percent Auto 8.5 % (2-11); Neutrophils Percent Auto 62.8 % (45-73); Platelet Count 190 X10*3/uL (160-400); Red Blood Count 2.79 X10*6/uL (4.60-5.80); Red Cell Distribution Width 14.4 % (11.0-16.0); White Blood Count 6.3 X10*3/uL (4.8-10.8)
[2023-01-11] MEDS: 0.9 % Sodium Chloride 1,000 ML 999 ML IV (14:22)
[2023-01-11 14:23] LABS: Prothrombin Time 11.9 SEC (10.0-13.1)
[2023-01-11 14:26] LABS: Partial Thromboplastin Time 30.1 SEC (26.0-36.4)
[2023-01-11 14:32] VITALS: BP 126/60; PULSE 71; RESP 13; O2SAT 97
[2023-01-11 14:33] LABS: Alanine Aminotransferase 27 U/L (0-40); Albumin Level 3.7 g/dL (3.5-5.0); Alkaline Phosphatase 70 U/L (39-117); Anion Gap 13 (12-20); Aspartate Amino Transferase 14 U/L (5-37); Bilirubin Direct < 0.2 mg/dL (0.0-0.5); Bilirubin Total 0.2 mg/dL (0.0-1.0); Blood Urea Nitrogen 35 mg/dL (9-16); Calcium 9.1 mg/dL (8.4-10.2); Carbon Dioxide 24 mmol/L (22-29); Chloride 108 mmol/L (96-108); Creatinine Clr Calc Pharmacy 57.1; Estimated Glomerular Filt Rate 51; Glucose Random 120 mg/dL (60-115); Lipase 8 U/L (8-78); Potassium 5.5 mmol/L (3.3-5.1); Sodium 139 mmol/L (135-145); Total Protein 7.1 g/dL (6.5-8.0)
--- NOTE | 2023-01-11 14:43 | MHC.CM.ED ---
Received telephone call from [facility]. Patient is active with their agency. Referral made via [facility] so they can follow for d/c needs.
[2023-01-11] MEDS: iohexoL 350 MG/ML 75 ML INFUS..BTL 85 ML IV (14:59)
--- NOTE | 2023-01-11 16:10 | PHA.MEDREC ---
Pharmacy Consult ? Medication Reconciliation Pharmacy has completed the medication reconciliation. Patient had a med list.
[2023-01-11 17:13] VITALS: BP 102/58; PULSE 71; RESP 13; TEMP 36.6; O2SAT 97
--- NOTE | 2023-01-11 17:22 | PM.IMHP ---
History of Present Illness Date of Service: 01/11/23 Chief Complaint: Black stools 57-year-old male with history of chronic normocytic anemia, insulin-dependent type 2 diabetes, chronic kidney disease stage III, history of opiate use disorder on methadone patient denies recent use, peripheral artery disease s/p transmetarsal amputation of the left leg, history of chronic anemia baseline hemoglobin of 8 and sent here from PCP office d/t black stool and hemoglobin, she take Plavix Review of Systems Review of Systems: Gen: no fever Resp: no sob, no cough CV: no chest, no SOLARES, no leg edema GI: No n/v, no abd pain, black stool Neuro: No confusion Yes all other systems are reviewed and are negative [facility] Medical History Anemia Chronic anemia CKD (chronic kidney disease) Diabetes Diabetes type 2, controlled Diabetic infection of left foot Fever of unknown origin History of prostate cancer Migraine Opioid use disorder Osteomyelitis PAD (peripheral artery disease) Family History Mother No pertinent family history Surgical History S/P transmetatarsal amputation of foot Social History Household Members: Spouse Housing: Apartment Do you presently have visiting nurse or other home services: Yes Alcohol intake: never Patient Tobacco Use Status: Never used Tobacco Use of substances other than those prescribed or required for medical reasons: No Substance Use Type: Opiates Have you been hit, kicked, punched, or otherwise hurt by someone within the past year? If so, by whom?: No Do you feel safe in your current relationship?: Yes Is there a partner from a previous relationship who is making you feel unsafe now?: No Are you made to feel afraid or neglected: No Congregational Healthcare Practices: congregation Advance Directives: Yes Advance Directives Information Provided: Yes Advance Directives on File: No Advance Directives Date on File: 01/11/23 Do you have thoughts of harming others: None Do you have a plan to hurt others: No Plan Recently lost weight without trying: No Nutrition Risks: No Nutritional Risk service: No Current occupational status: disabled Meds Allergies Allergy/AdvReac Type Severity Reaction Status Date / Time No Known Allergies Allergy Verified 12/28/22 13:52 [No Known Allergies*] Home Medications Medication Instructions Recorded Confirmed Last Taken Type clopidogrel 75 mg tablet 1 tab PO DAILY 06/17/22 01/11/23 Unknown History ferrous sulfate 324 mg (65 mg 1 tab PO BID 06/17/22 01/11/23 Unknown History iron) tablet,delayed release insulin aspart U-100 100 unit/mL 1 sliding scale dose subcut DAILY 06/17/22 01/11/23 Unknown History (3 mL) subcutaneous pen (Novolog FlexPen U-100 Insulin aspart) lisinopril 20 mg tablet 20 mg PO DAILY 06/17/22 01/11/23 Unknown History methadone 10 mg/mL oral concentrate 65 mg PO DAILY 06/17/22 01/12/23 06/16/22 History tamsulosin 0.4 mg capsule 1 cap PO BEDTIME 06/17/22 01/11/23 Unknown History aspirin 81 mg tablet,delayed 81 mg PO DAILY 01/11/23 01/11/23 Unknown History release atorvastatin 10 mg tablet 10 mg PO BEDTIME 01/11/23 01/11/23 Unknown History citalopram 20 mg tablet 20 mg PO DAILY 01/11/23 01/11/23 Unknown History hydroxyzine pamoate 25 mg capsule 25 mg PO TID PRN itch 01/11/23 01/11/23 Unknown History insulin glargine 100 unit/mL 9 unit subcut DAILY 01/11/23 01/11/23 Unknown History subcutaneous solution (Lantus U-100 Insulin) metformin 1,000 mg tablet 1,000 mg PO BID 01/11/23 01/11/23 Unknown History metoprolol succinate 50 mg 50 mg PO DAILY 01/11/23 01/11/23 Unknown History tablet,extended release 24 hr naloxone 4 mg/actuation nasal 4 mg intranasal Q3M PRN Opioid 01/11/23 01/11/23 Unknown History spray (Narcan) Overdose nifedipine 30 mg tablet,extended 30 mg PO DAILY 01/11/23 01/11/23 Unknown History release omeprazole 20 mg capsule,delayed 20 mg PO DAILY@0630 01/11/23 01/11/23 Unknown History release pregabalin 50 mg capsule 50 mg PO TID 01/11/23 01/11/23 Unknown History Physical Exam Vital Signs and Narrative: Vital Signs: Last Vital Signs Temp 97.9 F 01/11/23 17:13 Pulse 71 01/11/23 17:13 Resp 13 01/11/23 17:13 BP 102/58 L 01/11/23 17:13 Pulse Ox 97 01/11/23 17:13 O2 Del Method Room Air 01/11/23 17:13 BMI result Body Mass Index 29.0 Const: Other: Constitutional: Alert, in no distress, overweight. Mental Status: Oriented to person, place and time. Eyes: Pupils are equal, round and reactive to light. Ear, Nose and Throat: Oropharynx clear, mucous membranes moist. Ears and nose without eformities. Trachea midline. Respiratory: Clear to auscultation. No wheezing, rales or rhonchi. Cardiovascular: S1 S2 regular. No murmurs, rubs or gallops. Gastrointestinal: Abdomen soft, non-tender, non-distended. Normal bowel sounds.? Neurologic: Cranial nerves II-XII grossly intact. No focal neurological deficits. Moves all extremities spontaneously.? Skin: No rashes or lesions.? Musculoskeletal: No cyanosis or clubbing. Psychiatric: Normal mood and affect? Results Labs 01/11/23 14:10 01/11/23 14:10 Labs: Laboratory Results - last 24 hr 01/11/23 01/11/23 01/11/23 14:10 14:10 14:10 MCV 82.8 MCH 25.4 L MCHC 30.7 L RDW 14.4 Plt Count 190 MPV 10.9 Immature Gran % (Auto) 0.2 Neut % (Auto) 62.8 Lymph % (Auto) 25.5 [place] % (Auto) 8.5 Eos % (Auto) 2.5 Baso % (Auto) 0.5 Lymph # (Auto) 1.6 [place] # (Auto) 0.5 Eos # (Auto) 0.2 Baso # (Auto) 0.0 Abs Immat Gran (auto) 0.01 Absolute Neuts (auto) 4.0 Absolute Nucleated RBC 0.000 Nucleated RBC % (auto) 0.0 PT INR APTT 30.1 Anion Gap 13 Estim Creat Clear Calc 57.1 Estimated GFR 51 Random Glucose 120 H Calcium 9.1 Total Bilirubin 0.2 Direct Bilirubin < 0.2 AST 14 ALT 27 Alkaline Phosphatase 70 Total Protein 7.1 Albumin 3.7 Lipase 8 Blood Type Antibody Screen 01/11/23 01/11/23 14:10 14:38 MCV MCH MCHC RDW Plt Count MPV Immature Gran % (Auto) Neut % (Auto) Lymph % (Auto) [place] % (Auto) Eos % (Auto) Baso % (Auto) Lymph # (Auto) [place] # (Auto) Eos # (Auto) Baso # (Auto) Abs Immat Gran (auto) Absolute Neuts (auto) Absolute Nucleated RBC Nucleated RBC % (auto) PT 11.9 INR 1.0 APTT Anion Gap Estim Creat Clear Calc Estimated GFR Random Glucose Calcium Total Bilirubin Direct Bilirubin AST ALT Alkaline Phosphatase Total Protein Albumin Lipase Blood Type AB Positive Antibody Screen NEGATIVE Imaging Radiologist's Impressions: Impressions Abdomen/Pelvis CT 01/11/23 15:06 IMPRESSION: 1. Similar appearance of the kidneys bilaterally without definitive acute abnormality. Probable small renal cysts bilaterally without significant change not requiring follow-up. There is mild increased mural thickening in the urinary bladder which could be secondary to a lower degree of distention. Mild cystitis cannot be completely excluded. No focal abnormality. 2. No significant colorectal abnormality or change. Normal bleeding or persists, correlation with physical exam and colonoscopy is recommended. Assessment and Plan (1) Melena: Status: Acute (2) Anemia: Status: Acute Plan 56-year-old male with history of chronic normocytic anemia, insulin-dependent type 2 diabetes, chronic kidney disease stage III, history of opiate use disorder on methadone patient denies recent use, peripheral artery disease with recent admission s/p L TMA, Chronic anemia here with Melana and anemia Melana and anemia, no evidence evidence of acute blood loss -IV PPI, monitor and consider GI eval if worse, no indication for transfusion #Insulin dependence type 2 diabetes with hypoglycemia -POC glucose -diabetic diet -Insulin #Hyperkalemia of 5.5 repeat tomorrow # opiate use disorder -continue methadone # PAD--hold ASA and Plavix for now and if H/H no signficantly shifted, then resume DVT prophylaxis compresion device d/t anemia, and low H?H Full code need for inaptient: anemia ? need work up Time Spent With Patient Time: Total time managing care of this patient today ____ minutes. Quality Stroke Does the patient have a stroke diagnosis?: No VTE Prior VTE?: No VTE Risk Level:: Medical - moderate - high VTE Device Contraindication: Treatment Not Indicated VTE Drug Contraindication: Treatment Not Indicated (GI bleeding)
[2023-01-11 18:24] LABS: Glucose, Whole Blood 79 mg/dL (60-115)
--- NOTE | 2023-01-11 19:44 | P.CNGI_ITS ---
History of Present Illness Data of Consult Service Date: 01/11/23 Requesting physician: Osvaldo Martinez Primary Care Provider: Twan Nunez MD HPI Reason for consult: anemia 67-year-old male with history of chronic normocytic anemia, insulin-dependent type 2 diabetes, chronic kidney disease stage III, history of opiate use disorder, peripheral artery disease, osteomyelitis s/p transmetatarsal amputation left foot who I am seeing for assessment for anemia Patient noted he had been passing black tarry stools last few days and also noted epigastric pain and discomfort worse with food but no radiation or releiving factors. He does admit to nausea and vomiting small amounts of brown colored emesis. Denies diarrhea or constipation. denies taking nsaids but is on aspirin and plavix. HGb was around 7 g/dl with baseline usu 8 g/dl. He does have CKD as well and known to have hx of radiation proctopathy, noted on prior colonoscopy 2019. Review of Systems Review of Systems: Constitutional : No Weight loss, No Fever, No Chills ENT/Mouth : No sore throat, No Rhinorrhea Eyes: No Swelling, No Redness Cardiovascular : No Chest Pain, No SOB, No Edema Respiratory : No Cough, No Sputum, No Wheezing Gastrointestinal : see HPI Genitourinary : NO Dysuria, No Urinary Frequency, No Hematuria, No Urgency Musculoskeletal : No joint pain, No Myalgias, No Joint Swelling Skin : No Skin Lesions, No rash Neuro : + Weakness, No Numbness, No Dizziness, No Headache Psych : No Anxiety/Panic, No Depression Heme/Lymph: No Bruising, No Lymphadenopathy Endocrine : No Polyuria, No Polydipsia All other systems reviewed and are negative. [facility] Past Medical History Medical History Anemia Chronic anemia CKD (chronic kidney disease) Diabetes Diabetes type 2, controlled Diabetic infection of left foot Fever of unknown origin History of prostate cancer Migraine Opioid use disorder Osteomyelitis PAD (peripheral artery disease) Family History Family History Mother No pertinent family history Surgical History Surgical History S/P transmetatarsal amputation of foot Social History Social History Household Members: Spouse Housing: Apartment Do you presently have visiting nurse or other home services: Yes Alcohol intake: never Patient Tobacco Use Status: Never used Tobacco Use of substances other than those prescribed or required for medical reasons: No Substance Use Type: Opiates Have you been hit, kicked, punched, or otherwise hurt by someone within the past year? If so, by whom?: No Do you feel safe in your current relationship?: Yes Is there a partner from a previous relationship who is making you feel unsafe now?: No Are you made to feel afraid or neglected: No Nondenominational Healthcare Practices: mormonism Advance Directives: Yes Advance Directives Information Provided: Yes Advance Directives on File: No Advance Directives Date on File: 01/11/23 Do you have thoughts of harming others: None Do you have a plan to hurt others: No Plan Recently lost weight without trying: No Nutrition Risks: No Nutritional Risk service: No Current occupational status: disabled Meds Allergies Allergy/AdvReac Type Severity Reaction Status Date / Time No Known Allergies Allergy Verified 12/28/22 13:52 [No Known Allergies*] Active Medications: Current Medications Atorvastatin Calcium (Atorvastatin Calcium 10 Mg Tablet) 10 mg PO BEDTIME MARIA ELENA Escitalopram Oxalate (Escitalopram Oxalate 10 Mg Tablet) 10 mg PO DAILY [facility] Ferrous Sulfate (Ferrous Sulfate 324 Mg Tablet.Dr) 324 mg PO BID [facility] Glucose (Glucose Gel 15 Gm Gel..Gram.) 15 gm PO Q15M PRN; Protocol PRN Reason: per Hypoglycemia Standing Ord. Hydroxyzine HCl (Hydroxyzine Hcl 25 Mg Tablet) 25 mg PO TID PRN PRN Reason: itch Dextrose (D10) 250 mls @ 750 mls/hr IV Q15M PRN; Protocol PRN Reason: per Hypoglycemia Standing Ord. Insulin Glargine (Insulin Glargine,Hum.Rec.Anlog 100 Unit/Ml 10 Ml Vial) 9 unit SUBCUT DAILY [facility] Insulin Human Lispro (Insulin Lispro 100 Unit/Ml 3 Ml Vial) 0 unit SUBCUT QIDACHS [facility]; Protocol Lisinopril (Lisinopril 20 Mg Tablet) 20 mg PO DAILY [facility]; Protocol Metformin HCl (Metformin Hcl 1,000 Mg Tablet) 1,000 mg PO BIDWM [facility] Metoprolol Succinate (Metoprolol Succinate Er 50 Mg Tab.Er.24h) 50 mg PO DAILY [facility]; Protocol Naloxone HCl (Naloxone Hcl Nasal 4 Mg [place]) 4 mg NOSTRILALT Q3M PRN PRN Reason: Opioid Overdose Nifedipine (Nifedipine Er 30 Mg Tab.Er.24) 30 mg PO DAILY [facility] Omeprazole (Omeprazole 20 Mg Capsule.Dr) 20 mg PO DAILY@0630 [facility] Pregabalin (Pregabalin 50 Mg Capsule) 50 mg PO TID [facility] Sodium Chloride (0.9 % Sodium Chloride Flush 3 Ml Syringe) 3 ml IVFLUSH QSHIFT [facility] Tamsulosin HCl (Tamsulosin Hcl 0.4 Mg Capsule) 0.4 mg PO BEDTIME [facility] Home Medications Medication Instructions Recorded Confirmed Last Taken Type clopidogrel 75 mg tablet 1 tab PO DAILY 06/17/22 01/11/23 Unknown History ferrous sulfate 324 mg (65 mg 1 tab PO BID 06/17/22 01/11/23 Unknown History iron) tablet,delayed release insulin aspart U-100 100 unit/mL 1 sliding scale dose subcut DAILY 06/17/22 01/11/23 Unknown History (3 mL) subcutaneous pen (Novolog FlexPen U-100 Insulin aspart) lisinopril 20 mg tablet 20 mg PO DAILY 06/17/22 01/11/23 Unknown History methadone 10 mg/mL oral concentrate 55 mg PO DAILY 06/17/22 06/17/22 06/16/22 History tamsulosin 0.4 mg capsule 1 cap PO BEDTIME 06/17/22 01/11/23 Unknown History aspirin 81 mg tablet,delayed 81 mg PO DAILY 01/11/23 01/11/23 Unknown History release atorvastatin 10 mg tablet 10 mg PO BEDTIME 01/11/23 01/11/23 Unknown History citalopram 20 mg tablet 20 mg PO DAILY 01/11/23 01/11/23 Unknown History hydroxyzine pamoate 25 mg capsule 25 mg PO TID PRN itch 01/11/23 01/11/23 Unknown History insulin glargine 100 unit/mL 9 unit subcut DAILY 01/11/23 01/11/23 Unknown History subcutaneous solution (Lantus U-100 Insulin) metformin 1,000 mg tablet 1,000 mg PO BID 01/11/23 01/11/23 Unknown History metoprolol succinate 50 mg 50 mg PO DAILY 01/11/23 01/11/23 Unknown History tablet,extended release 24 hr naloxone 4 mg/actuation nasal 4 mg intranasal Q3M PRN Opioid 01/11/23 01/11/23 Unknown History spray (Narcan) Overdose nifedipine 30 mg tablet,extended 30 mg PO DAILY 01/11/23 01/11/23 Unknown History release omeprazole 20 mg capsule,delayed 20 mg PO DAILY@0630 01/11/23 01/11/23 Unknown History release pregabalin 50 mg capsule 50 mg PO TID 01/11/23 01/11/23 Unknown History Physical Exam Vital Signs: Vital Signs: Last Vital Signs Temp 97.9 F 01/11/23 17:13 Pulse 71 01/11/23 17:13 Resp 13 01/11/23 17:13 BP 102/58 L 01/11/23 17:13 Pulse Ox 97 01/11/23 17:13 O2 Del Method Room Air 01/11/23 17:13 BMI result Body Mass Index 29.0 EXAM: GENERAL: The patient is well developed and nontoxic. VITAL SIGNS:see workflow HEENT: Nonicteric sclerae, PERRLA, EOMI. Oropharynx clear. Moist mucous membranes. Conjunctivae appear pale. No thyroid mass. CHEST: Chest wall is nontender. HEART: Regular rate and rhythm without murmurs. LUNGS: Clear to auscultation bilaterally. ABDOMEN: Soft, positive bowel sounds,tender epigastrium, no organomegaly.no flank tenderness SKIN: No rash, no excessive bruising, petechiae, or purpura. NEUROLOGIC: Cranial nerves II-XII intact without motor/sensory deficit. psych- nml affect left foot amputation Results Labs 01/11/23 14:10 01/11/23 14:10 Labs: Short CBC 01/11/23 Range/Units 14:10 WBC 6.3 (4.8-10.8) X10*3/uL Hgb 7.1 L (14.0-18.0) g/dl Hct 23.1 L (42.0-52.0) % Plt Count 190 (160-400) X10*3/uL BMP 01/11/23 14:10 Sodium 139 Potassium 5.5 H Chloride 108 Carbon Dioxide 24 BUN 35 H Creatinine 1.43 H Calcium 9.1 Liver Function 01/11/23 Range/Units 14:10 Total Bilirubin 0.2 (0.0-1.0) mg/dL Direct Bilirubin < 0.2 (0.0-0.5) mg/dL AST 14 (5-37) U/L ALT 27 (0-40) U/L Alkaline Phosphatase 70 (39-117) U/L Albumin 3.7 (3.5-5.0) g/dL Imaging CT scan - abdomen: Attestation: I personally reviewed and interpreted this imaging study as follows: (sludge GB, thickened duodenum, degen spinal disease, shrunken kidneys) Assessment and Plan (1) Melena: Status: Acute Plan 1. Acute on chronic anemia with hx of CKD, radiation proctitis and describing melena whilst on aspirin and plavix , ddx; gastritis, duodenitis, dieulafoy, PUD, AVM PLAN; 1/ keep on BID PPI 2/ PRBC, target hgb >7 g/d 3/ EGD tomorrow pending schedule+/- push enteroscopy 4/ keep on clears Time Spent With Patient Time: Total time managing care of this patient today ____ minutes. Procedures Date of Service Date of Service: 01/11/23
[2023-01-11 21:20] LABS: Glucose, Whole Blood 98 mg/dL (60-115)
[2023-01-11] MEDS: Pregabalin 50 MG CAPSULE PO (21:35)
[2023-01-11] MEDS: Atorvastatin Calcium 10 MG TABLET PO (21:35)
[2023-01-11] MEDS: Ferrous Sulfate 324 MG TABLET.DR PO (21:35)
[2023-01-11] MEDS: Tamsulosin HCL 0.4 MG CAPSULE PO (21:38)
[2023-01-12] VITALS: BP 123/59; PULSE 68; RESP 16; TEMP 36.4; O2SAT 97
[2023-01-12 04:20] VITALS: BP 134/68; PULSE 70; RESP 16; TEMP 36.4; O2SAT 100
[2023-01-12] MEDS: Omeprazole 20 MG CAPSULE.DR PO (05:02)
[2023-01-12 07:01] VITALS: BP 136/95; PULSE 70; RESP 18; TEMP 36.6; O2SAT 97
[2023-01-12 07:19] LABS: Glucose, Whole Blood 83 mg/dL (60-115)
[2023-01-12] MEDS: lisinopriL 20 MG TABLET PO (07:44)
[2023-01-12] MEDS: NIFEdipine ER 30 MG TAB.ER.24 PO (07:44)
[2023-01-12] MEDS: Pregabalin 50 MG CAPSULE PO ×2 (07:44→22:04)
[2023-01-12] MEDS: Metoprolol Succinate ER 50 MG TAB.ER.24H PO (07:44)
[2023-01-12] MEDS: Escitalopram Oxalate 10 MG TABLET PO (07:45)
[2023-01-12] MEDS: Ferrous Sulfate 324 MG TABLET.DR PO ×2 (07:45→22:04)
[2023-01-12] MEDS: 0.9 % Sodium Chloride Flush 3 ML SYRINGE IVFLUSH ×2 (07:45→16:30)
--- NOTE | 2023-01-12 10:36 | HE.PHANOTE ---
RE METHADONE 65 MG FROM [facility], PATIENT GETS TAKE HOME BOTTLES, CALLED [facility] AND LEFT MESSAGE TO SEE LAST DOSE MARCELLA
[2023-01-12 11:13] LABS: Glucose, Whole Blood 91 mg/dL (60-115)
[2023-01-12] MEDS: methADONE HCl 20 MG/2 ML ORAL.CONC 65 MG PO (11:57)
--- NOTE | 2023-01-12 13:03 | P.PNIM_ITS ---
Subjective Subjective Date of Service: 01/12/23 Interval History: f/u on anemia, melena Interval history: No report of bleeding, Physical Exam Vital Signs: Vital Signs: Last Vital Signs Temp 98 F 01/12/23 07:01 Pulse 70 01/12/23 07:01 Resp 18 01/12/23 07:01 BP 136/95 H 01/12/23 07:01 Pulse Ox 97 01/12/23 07:01 O2 Del Method Room Air 01/12/23 07:01 BMI result Body Mass Index 29.0 Const: Other: General: AO X 3, no acute distress Resp: CTA bilateral CVS: S1,S2,RRR GI: +BS, NT, no distention Skin: No rash Neuro: motor grossly intact Psych: appropriate affect Objective Data Active Medications Aspirin (Aspirin Enteric Coated 81 Mg Tablet.) 81 mg PO DAILY [facility] Atorvastatin Calcium (Atorvastatin Calcium 10 Mg Tablet) 10 mg PO BEDTIME [facility] Last Admin: 01/11/23 21:35 Dose: 10 mg Documented By: BETINA Clopidogrel Bisulfate (Clopidogrel Bisulfate 75 Mg Tablet) 75 mg PO DAILY [facility] Escitalopram Oxalate (Escitalopram Oxalate 10 Mg Tablet) 10 mg PO DAILY [facility] Last Admin: 01/12/23 07:45 Dose: 10 mg Documented By: MARLENI Ferrous Sulfate (Ferrous Sulfate 324 Mg Tablet.) 324 mg PO BID [facility] Last Admin: 01/12/23 07:45 Dose: 324 mg Documented By: MARLENI Glucose (Glucose Gel 15 Gm Gel..Gram.) 15 gm PO Q15M PRN; Protocol PRN Reason: per Hypoglycemia Standing Ord. Hydroxyzine HCl (Hydroxyzine Hcl 25 Mg Tablet) 25 mg PO TID PRN PRN Reason: itch Dextrose (D10) 250 mls @ 750 mls/hr IV Q15M PRN; Protocol PRN Reason: per Hypoglycemia Standing Ord. Insulin Glargine (Insulin Glargine,Hum.Rec.Anlog 100 Unit/Ml 10 Ml Vial) 9 unit SUBCUT DAILY [facility] Last Admin: 01/12/23 10:04 Dose: Not Given Documented By: MARLENI Non-Admin Reason: NPO Insulin Human Lispro (Insulin Lispro 100 Unit/Ml 3 Ml Vial) 0 unit SUBCUT QIDACHS [facility]; Protocol Last Admin: 01/12/23 07:28 Dose: Not Given Documented By: MARLENI Non-Admin Reason: No Insulin Coverage Lisinopril (Lisinopril 20 Mg Tablet) 20 mg PO DAILY [facility]; Protocol Last Admin: 01/12/23 07:44 Dose: 20 mg Documented By: MARLENI Metformin HCl (Metformin Hcl 1,000 Mg Tablet) 1,000 mg PO BIDWM [facility] Last Admin: 01/12/23 07:45 Dose: Not Given Documented By: MARLENI Non-Admin Reason: bs 83 Methadone HCl (Methadone Hcl 20 Mg/2 Ml Oral.Conc) 65 mg PO DAILY [facility] Last Admin: 01/12/23 11:57 Dose: 65 mg Documented By: MARLENI Metoprolol Succinate (Metoprolol Succinate Er 50 Mg Tab.Er.24h) 50 mg PO DAILY [facility]; Protocol Last Admin: 01/12/23 07:44 Dose: 50 mg Documented By: MARLENI Naloxone HCl (Naloxone Hcl Nasal 4 Mg [place]) 4 mg NOSTRILALT Q3M PRN PRN Reason: Opioid Overdose Nifedipine (Nifedipine Er 30 Mg Tab.Er.24) 30 mg PO DAILY [facility] Last Admin: 01/12/23 07:44 Dose: 30 mg Documented By: MARLENI Omeprazole (Omeprazole 20 Mg Capsule.Dr) 20 mg PO DAILY@0630 [facility] Last Admin: 01/12/23 05:02 Dose: 20 mg Documented By: PAWAN Pregabalin (Pregabalin 50 Mg Capsule) 50 mg PO TID [facility] Last Admin: 01/12/23 07:44 Dose: 50 mg Documented By: MARLENI Sodium Chloride (0.9 % Sodium Chloride Flush 3 Ml Syringe) 3 ml IVFLUSH QSHIFT [facility] Last Admin: 01/12/23 07:45 Dose: 3 ml Documented By: MARLENI Tamsulosin HCl (Tamsulosin Hcl 0.4 Mg Capsule) 0.4 mg PO BEDTIME [facility] Last Admin: 01/11/23 21:38 Dose: 0.4 mg Documented By: ALVARADOIT Labs 01/11/23 14:10 01/11/23 14:10 Labs: Laboratory Results - last 24 hr 01/11/23 01/11/23 01/11/23 14:10 14:10 14:10 MCV 82.8 MCH 25.4 L MCHC 30.7 L RDW 14.4 Plt Count 190 MPV 10.9 Immature Gran % (Auto) 0.2 Neut % (Auto) 62.8 Lymph % (Auto) 25.5 [place] % (Auto) 8.5 Eos % (Auto) 2.5 Baso % (Auto) 0.5 Lymph # (Auto) 1.6 [place] # (Auto) 0.5 Eos # (Auto) 0.2 Baso # (Auto) 0.0 Abs Immat Gran (auto) 0.01 Absolute Neuts (auto) 4.0 Absolute Nucleated RBC 0.000 Nucleated RBC % (auto) 0.0 PT INR APTT 30.1 Anion Gap 13 Estim Creat Clear Calc 57.1 Estimated GFR 51 POC Glucose Random Glucose 120 H Calcium 9.1 Total Bilirubin 0.2 Direct Bilirubin < 0.2 AST 14 ALT 27 Alkaline Phosphatase 70 Total Protein 7.1 Albumin 3.7 Lipase 8 Blood Type Antibody Screen 01/11/23 01/11/23 01/11/23 14:10 14:38 18:21 MCV MCH MCHC RDW Plt Count MPV Immature Gran % (Auto) Neut % (Auto) Lymph % (Auto) [place] % (Auto) Eos % (Auto) Baso % (Auto) Lymph # (Auto) [place] # (Auto) Eos # (Auto) Baso # (Auto) Abs Immat Gran (auto) Absolute Neuts (auto) Absolute Nucleated RBC Nucleated RBC % (auto) PT 11.9 INR 1.0 APTT Anion Gap Estim Creat Clear Calc Estimated GFR POC Glucose 79 Random Glucose Calcium Total Bilirubin Direct Bilirubin AST ALT Alkaline Phosphatase Total Protein Albumin Lipase Blood Type AB Positive Antibody Screen NEGATIVE 01/11/23 01/12/23 01/12/23 21:17 07:14 11:07 MCV MCH MCHC RDW Plt Count MPV Immature Gran % (Auto) Neut % (Auto) Lymph % (Auto) [place] % (Auto) Eos % (Auto) Baso % (Auto) Lymph # (Auto) [place] # (Auto) Eos # (Auto) Baso # (Auto) Abs Immat Gran (auto) Absolute Neuts (auto) Absolute Nucleated RBC Nucleated RBC % (auto) PT INR APTT Anion Gap Estim Creat Clear Calc Estimated GFR POC Glucose 98 83 91 Random Glucose Calcium Total Bilirubin Direct Bilirubin AST ALT Alkaline Phosphatase Total Protein Albumin Lipase Blood Type Antibody Screen Assessment and Plan (1) Melena: Status: Acute (2) Anemia: Status: Acute Plan 56-year-old male with history of chronic normocytic anemia, insulin-dependent type 2 diabetes, chronic kidney disease stage III, history of opiate use disorder on methadone patient denies recent use, peripheral artery disease with recent admission s/p L TMA, Chronic anemia here with Melana and anemia Melana and anemia, no evidence evidence of acute blood loss -IV PPI, to have EGD, if if Hgb < 7, baseline is 7 to 8 #Insulin dependence type 2 diabetes with hypoglycemia -POC glucose -diabetic diet -Insulin #Hyperkalemia of 5.5 repeat tomorrow, repeat and lokelma if stil high # opiate use disorder -continue methadone # PAD--hold ASA and Plavix for now and if H/H no signficantly shifted, then resume DVT prophylaxis compresion device d/t anemia, and low H?H Full code need for inaptient: anemia ? need work up Time Spent With Patient Time: Total time managing care of this patient today ____ minutes. Quality Stroke Does the patient have a stroke diagnosis?: No VTE Prior VTE?: No VTE Risk Level:: Medical - moderate - high VTE Device Contraindication: Treatment Not Indicated VTE Drug Contraindication: Treatment Not Indicated
--- NOTE | 2023-01-12 13:57 | MHC.CM.PN ---
PATIENT LIVES WITH AND SON HE USES A WALKER. HAS [facility] SERVICES, ALREADY PLACED IN [facility]. RN (WILLI) PROVIDES MED MANAGEMENT AND VITALS CHECKS PLAN IS FOR EGD TODAY AT 1500 DC PLAN TO BE DETERMINED FOLLOWING. PATIENT WILL LIKELY NEED HELP WITH TRANSPORT HE REPORTS HIS CAR IS NOT WORKING AT THE MOMENT IMM 01/12 IN CHART
--- NOTE | 2023-01-12 14:00 | MHC.CM.PN ---
HCP ON FILE AND VERIFIED. , GUS [phone]
[2023-01-12 14:05] LABS: Anion Gap 11 (12-20); Blood Urea Nitrogen 28 mg/dL (9-16); Carbon Dioxide 26 mmol/L (22-29); Chloride 110 mmol/L (96-108); Creatinine Clr Calc Pharmacy 59.6; Estimated Glomerular Filt Rate 54; Glucose Random 89 mg/dL (60-115); Potassium 5.8 mmol/L (3.3-5.1); Sodium 141 mmol/L (135-145)
[2023-01-12] MEDS: Pantoprazole Sodium 40 MG/10 ML VIAL IVPUSH (14:26)
[2023-01-12 15:04] VITALS: BP 141/69; PULSE 67; RESP 18; TEMP 36.2; O2SAT 99
--- NOTE | 2023-01-12 15:08 | PC.NURSE ---
[facility],patient awaiting procedure,NPO all Day ,diabetic ,BS 91 at lunch, no IV fluids, notified
[2023-01-12 16:10] LABS: Glucose, Whole Blood 74 mg/dL (60-115)
--- NOTE | 2023-01-12 16:15 | PC.NURSE ---
Contacted Dr. Kwon re procedure today,procedure is cancelled due to high potassium level,PACU was made aware,tiger message sent to RAPHAEL Weiss also.
[2023-01-12] MEDS: Sodium Zirconium Cyclosilicate 10 GM POWD.PACK PO (16:29)
[2023-01-12 20:16] LABS: Glucose, Whole Blood 131 mg/dL (60-115)
[2023-01-12] MEDS: Tamsulosin HCL 0.4 MG CAPSULE PO (22:04)
[2023-01-12] MEDS: Atorvastatin Calcium 10 MG TABLET PO (22:04)
[2023-01-12 23:20] VITALS: BP 118/57; PULSE 66; RESP 18; TEMP 36.4; O2SAT 97
[2023-01-13] VITALS (11 sets, daily range): BP systolic 99–140; BP diastolic 44–68; PULSE 59–70; RESP 14–20; TEMP 35.6–36.6; O2SAT 93–100
[2023-01-13] MEDS: 0.9 % Sodium Chloride Flush 3 ML SYRINGE IVFLUSH ×3 (00:42→16:02)
[2023-01-13] MEDS: Omeprazole 20 MG CAPSULE.DR PO (06:06)
[2023-01-13] MEDS: Pantoprazole Sodium 40 MG/10 ML VIAL IVPUSH (06:06)
[2023-01-13 06:15] LABS: Hematocrit 22.9 % (42.0-52.0); Hemoglobin 7.1 g/dl (14.0-18.0); Mean Corpuscular Hemoglobin 25.6 pg (27.0-33.0); Mean Corpuscular Volume 82.7 fL (80.0-98.0); Mean Platelet Volume 11.5 fL (9.4-12.4); Platelet Count 176 X10*3/uL (160-400); Red Blood Count 2.77 X10*6/uL (4.60-5.80); Red Cell Distribution Width 14.2 % (11.0-16.0); White Blood Count 5.6 X10*3/uL (4.8-10.8)
[2023-01-13 06:40] LABS: Anion Gap 10 (12-20); Blood Urea Nitrogen 28 mg/dL (9-16); Calcium 8.8 mg/dL (8.4-10.2); Carbon Dioxide 27 mmol/L (22-29); Chloride 107 mmol/L (96-108); Creatinine Clr Calc Pharmacy 59.6; Estimated Glomerular Filt Rate 54; Glucose Random 88 mg/dL (60-115); Potassium 4.6 mmol/L (3.3-5.1); Sodium 139 mmol/L (135-145)
[2023-01-13 07:22] LABS: Glucose, Whole Blood 92 mg/dL (60-115)
[2023-01-13] MEDS: Metoprolol Succinate ER 50 MG TAB.ER.24H PO (07:54)
[2023-01-13] MEDS: NIFEdipine ER 30 MG TAB.ER.24 PO (07:55)
[2023-01-13] MEDS: lisinopriL 20 MG TABLET PO (07:55)
[2023-01-13] MEDS: Pregabalin 50 MG CAPSULE PO ×3 (07:55→21:24)
[2023-01-13] MEDS: Ferrous Sulfate 324 MG TABLET.DR PO ×2 (07:55→21:23)
[2023-01-13] MEDS: Escitalopram Oxalate 10 MG TABLET PO (07:55)
[2023-01-13] MEDS: methADONE HCl 20 MG/2 ML ORAL.CONC 65 MG PO (07:56)
--- NOTE | 2023-01-13 10:45 | HO.PM.IMPN ---
Subjective Subjective Date of Service: 01/13/23 Physical Exam Vital Signs: Vital Signs: Last Vital Signs Temp 97.6 F 01/13/23 10:34 Pulse 64 01/13/23 10:34 Resp 18 01/13/23 10:34 BP 107/57 L 01/13/23 10:34 Pulse Ox 99 01/13/23 07:34 O2 Del Method Room Air 01/13/23 07:34 BMI result Body Mass Index 29.0 Objective Data Active Medications Aspirin (Aspirin Enteric Coated 81 Mg Tablet.) 81 mg PO DAILY [facility] Last Admin: 01/13/23 07:32 Dose: Not Given Documented By: MARLENI Non-Admin Reason: pre-op Atorvastatin Calcium (Atorvastatin Calcium 10 Mg Tablet) 10 mg PO BEDTIME [facility] Last Admin: 01/12/23 22:04 Dose: 10 mg Documented By: BETINA Clopidogrel Bisulfate (Clopidogrel Bisulfate 75 Mg Tablet) 75 mg PO DAILY [facility] Last Admin: 01/13/23 07:32 Dose: Not Given Documented By: MARLENI Non-Admin Reason: pre-op Escitalopram Oxalate (Escitalopram Oxalate 10 Mg Tablet) 10 mg PO DAILY [facility] Last Admin: 01/13/23 07:55 Dose: 10 mg Documented By: DAVID Ferrous Sulfate (Ferrous Sulfate 324 Mg Tablet.) 324 mg PO BID [facility] Last Admin: 01/13/23 07:55 Dose: 324 mg Documented By: DAVID Glucose (Glucose Gel 15 Gm Gel..Gram.) 15 gm PO Q15M PRN; Protocol PRN Reason: per Hypoglycemia Standing Ord. Hydroxyzine HCl (Hydroxyzine Hcl 25 Mg Tablet) 25 mg PO TID PRN PRN Reason: itch Dextrose (D10) 250 mls @ 750 mls/hr IV Q15M PRN; Protocol PRN Reason: per Hypoglycemia Standing Ord. Insulin Glargine (Insulin Glargine,Hum.Rec.Anlog 100 Unit/Ml 10 Ml Vial) 9 unit SUBCUT DAILY [facility] Last Admin: 01/13/23 09:15 Dose: Not Given Documented By: MARLENI Non-Admin Reason: NPO Insulin Human Lispro (Insulin Lispro 100 Unit/Ml 3 Ml Vial) 0 unit SUBCUT QIDACHS [facility]; Protocol Last Admin: 01/13/23 07:30 Dose: Not Given Documented By: MARLENI Non-Admin Reason: No Insulin Coverage Lisinopril (Lisinopril 20 Mg Tablet) 20 mg PO DAILY [facility]; Protocol Last Admin: 01/13/23 07:55 Dose: 20 mg Documented By: DAVID Metformin HCl (Metformin Hcl 1,000 Mg Tablet) 1,000 mg PO BIDWM [facility] Last Admin: 01/13/23 07:31 Dose: Not Given Documented By: MARLENI Non-Admin Reason: NPO Methadone HCl (Methadone Hcl 20 Mg/2 Ml Oral.Conc) 65 mg PO DAILY [facility] Last Admin: 01/13/23 07:56 Dose: 65 mg Documented By: DAVID Metoprolol Succinate (Metoprolol Succinate Er 50 Mg Tab.Er.24h) 50 mg PO DAILY [facility]; Protocol Last Admin: 01/13/23 07:54 Dose: 50 mg Documented By: DAVID Naloxone HCl (Naloxone Hcl Nasal 4 Mg [place]) 4 mg NOSTRILALT Q3M PRN PRN Reason: Opioid Overdose Nifedipine (Nifedipine Er 30 Mg Tab.Er.24) 30 mg PO DAILY [facility] Last Admin: 01/13/23 07:55 Dose: 30 mg Documented By: DAVID Omeprazole (Omeprazole 20 Mg Capsule.Dr) 20 mg PO DAILY@629 [facility] Last Admin: 01/13/23 06:06 Dose: 20 mg Documented By: MARCELL Pantoprazole Sodium (Pantoprazole Sodium 40 Mg/10 Ml Vial) 40 mg IVPUSH DAILY@0630 [facility] Last Admin: 01/13/23 06:06 Dose: 40 mg Documented By: MARCELL Pregabalin (Pregabalin 50 Mg Capsule) 50 mg PO TID [facility] Last Admin: 01/13/23 07:55 Dose: 50 mg Documented By: DAVID Sodium Chloride (0.9 % Sodium Chloride Flush 3 Ml Syringe) 3 ml IVFLUSH QSHIFT [facility] Last Admin: 01/13/23 09:33 Dose: 3 ml Documented By: MARLENI Tamsulosin HCl (Tamsulosin Hcl 0.4 Mg Capsule) 0.4 mg PO BEDTIME [facility] Last Admin: 01/12/23 22:04 Dose: 0.4 mg Documented By: BETINA Labs 01/13/23 05:54 01/13/23 05:54 Labs: Laboratory Results - last 24 hr 01/11/23 01/12/23 01/12/23 14:38 11:07 13:21 MCV MCH MCHC RDW Plt Count MPV Absolute Nucleated RBC Nucleated RBC % (auto) Anion Gap 11 L Estim Creat Clear Calc 59.6 Estimated GFR 54 POC Glucose 91 Random Glucose 89 Calcium 9.0 Blood Type AB Positive Antibody Screen NEGATIVE Crossmatch See Detail 01/12/23 01/12/23 01/13/23 15:57 20:08 05:54 MCV 82.7 MCH 25.6 L MCHC 31.0 RDW 14.2 Plt Count 176 MPV 11.5 Absolute Nucleated RBC 0.000 Nucleated RBC % (auto) 0.0 Anion Gap Estim Creat Clear Calc Estimated GFR POC Glucose 74 131 H Random Glucose Calcium Blood Type Antibody Screen Crossmatch 01/13/23 01/13/23 05:54 07:06 MCV MCH MCHC RDW Plt Count MPV Absolute Nucleated RBC Nucleated RBC % (auto) Anion Gap 10 L Estim Creat Clear Calc 59.6 Estimated GFR 54 POC Glucose 92 Random Glucose 88 Calcium 8.8 Blood Type Antibody Screen Crossmatch Assessment and Plan (1) Melena: Status: Acute (2) Anemia: Status: Acute Plan 56-year-old male with history of chronic normocytic anemia, insulin-dependent type 2 diabetes, chronic kidney disease stage III, history of opiate use disorder on methadone patient denies recent use, peripheral artery disease with recent admission s/p L TMA, Chronic anemia here with Melana and anemia Melana and anemia, no evidence evidence of acute blood loss -IV PPI, to have EGD today, transfuse 1 unit of RBC #Insulin dependence type 2 diabetes with hypoglycemia -POC glucose -diabetic diet -Insulin #Hyperkalemia of 5.5, got 10 of lokelma on 01/12 and now K is 4.6 # opiate use disorder -continue methadone # PAD--hold ASA and Plavix for now until after EGD DVT prophylaxis compresion device d/t anemia, and low H?H Full code need for inaptient: anemia , need work up, transfusion today Time Spent With Patient Time: Total time managing care of this patient today ____ minutes. Quality Stroke Does the patient have a stroke diagnosis?: No VTE Prior VTE?: No VTE Risk Level:: Medical - moderate - high VTE Device Contraindication: Treatment Not Indicated VTE Drug Contraindication: Treatment Not Indicated
[2023-01-13 11:08] LABS: Glucose, Whole Blood 92 mg/dL (60-115)
--- NOTE | 2023-01-13 12:46 | P.CONAN_ITS ---
HPI - Anesthesia Eval Consult details Narrative: for EGD. PMFSH Active Problems Active Problems: All Active Problems (Updated 01/11/23 @ 19:53 by Felisa Kwon MD) Melena (Acute) Anemia (Acute) Painless rectal bleeding (Acute) S/P transmetatarsal amputation of foot (Acute) Diabetic wet gangrene of the foot (Acute) Acute kidney injury superimposed on CKD (Acute) Urinary retention (Acute) Status post transmetatarsal amputation of left foot (Acute) Hyperglycemia due to diabetes mellitus (Acute) Normocytic anemia (Acute) PAD (peripheral artery disease) (Acute) Diabetic infection of left foot (Acute) Acute kidney injury (Acute) Osteomyelitis (Acute) Anemia (Acute) Opioid use disorder (Acute) Past Medical History Medical History Anemia Chronic anemia CKD (chronic kidney disease) Diabetes Diabetes type 2, controlled Diabetic infection of left foot Fever of unknown origin History of prostate cancer Migraine Opioid use disorder Osteomyelitis PAD (peripheral artery disease) Family History Family History Mother No pertinent family history Family history of problems with anesthesia: No Surgical History Surgical History S/P transmetatarsal amputation of foot History of Problems with Anesthesia: No Social History Social History Household Members: Spouse Housing: Apartment Do you presently have visiting nurse or other home services: Yes Alcohol intake: never Patient Tobacco Use Status: Never used Tobacco Use of substances other than those prescribed or required for medical reasons: No Substance Use Type: Opiates Currently Displaying Signs/Symptoms of Drug Intoxication Withdrawal: No Have you been hit, kicked, punched, or otherwise hurt by someone within the past year? If so, by whom?: No Do you feel safe in your current relationship?: Yes Is there a partner from a previous relationship who is making you feel unsafe now?: No Are you made to feel afraid or neglected: No Muslim Healthcare Practices: yarsani Are you DNR?: No Advance Directives: Yes Advance Directives Information Provided: Yes Advance Directives on File: No Advance Directives Date on File: 01/11/23 Do you have thoughts of harming others: None Do you have a plan to hurt others: No Plan Recently lost weight without trying: No Nutrition Risks: No Nutritional Risk service: No Current occupational status: disabled Meds Allergies Allergy/AdvReac Type Severity Reaction Status Date / Time No Known Allergies Allergy Verified 12/28/22 13:52 [No Known Allergies*] Active Medications: Current Medications Aspirin (Aspirin Enteric Coated 81 Mg Tablet.) 81 mg PO DAILY [facility] Last Admin: 01/13/23 07:32 Dose: Not Given Atorvastatin Calcium (Atorvastatin Calcium 10 Mg Tablet) 10 mg PO BEDTIME [facility] Last Admin: 01/12/23 22:04 Dose: 10 mg Clopidogrel Bisulfate (Clopidogrel Bisulfate 75 Mg Tablet) 75 mg PO DAILY [facility] Last Admin: 01/13/23 07:32 Dose: Not Given Escitalopram Oxalate (Escitalopram Oxalate 10 Mg Tablet) 10 mg PO DAILY [facility] Last Admin: 01/13/23 07:55 Dose: 10 mg Ferrous Sulfate (Ferrous Sulfate 324 Mg Tablet.) 324 mg PO BID [facility] Last Admin: 01/13/23 07:55 Dose: 324 mg Glucose (Glucose Gel 15 Gm Gel..Gram.) 15 gm PO Q15M PRN; Protocol PRN Reason: per Hypoglycemia Standing Ord. Hydroxyzine HCl (Hydroxyzine Hcl 25 Mg Tablet) 25 mg PO TID PRN PRN Reason: itch Dextrose (D10) 250 mls @ 750 mls/hr IV Q15M PRN; Protocol PRN Reason: per Hypoglycemia Standing Ord. Insulin Glargine (Insulin Glargine,Hum.Rec.Anlog 100 Unit/Ml 10 Ml Vial) 9 unit SUBCUT DAILY [facility] Last Admin: 01/13/23 09:15 Dose: Not Given Insulin Human Lispro (Insulin Lispro 100 Unit/Ml 3 Ml Vial) 0 unit SUBCUT QIDACHS [facility]; Protocol Last Admin: 01/13/23 07:30 Dose: Not Given Lisinopril (Lisinopril 20 Mg Tablet) 20 mg PO DAILY [facility]; Protocol Last Admin: 01/13/23 07:55 Dose: 20 mg Metformin HCl (Metformin Hcl 1,000 Mg Tablet) 1,000 mg PO BIDWM [facility] Last Admin: 01/13/23 07:31 Dose: Not Given Methadone HCl (Methadone Hcl 20 Mg/2 Ml Oral.Conc) 65 mg PO DAILY [facility] Last Admin: 01/13/23 07:56 Dose: 65 mg Metoprolol Succinate (Metoprolol Succinate Er 50 Mg Tab.Er.24h) 50 mg PO DAILY [facility]; Protocol Last Admin: 01/13/23 07:54 Dose: 50 mg Naloxone HCl (Naloxone Hcl Nasal 4 Mg [place]) 4 mg NOSTRILALT Q3M PRN PRN Reason: Opioid Overdose Nifedipine (Nifedipine Er 30 Mg Tab.Er.24) 30 mg PO DAILY [facility] Last Admin: 01/13/23 07:55 Dose: 30 mg Omeprazole (Omeprazole 20 Mg Capsule.Dr) 20 mg PO DAILY@629 [facility] Last Admin: 01/13/23 06:06 Dose: 20 mg Pantoprazole Sodium (Pantoprazole Sodium 40 Mg/10 Ml Vial) 40 mg IVPUSH DAILY@629 [facility] Last Admin: 01/13/23 06:06 Dose: 40 mg Pregabalin (Pregabalin 50 Mg Capsule) 50 mg PO TID [facility] Last Admin: 01/13/23 07:55 Dose: 50 mg Sodium Chloride (0.9 % Sodium Chloride Flush 3 Ml Syringe) 3 ml IVFLUSH QSHIFT [facility] Last Admin: 01/13/23 09:33 Dose: 3 ml Tamsulosin HCl (Tamsulosin Hcl 0.4 Mg Capsule) 0.4 mg PO BEDTIME [facility] Last Admin: 01/12/23 22:04 Dose: 0.4 mg Home Medications Medication Instructions Recorded Confirmed Last Taken Type clopidogrel 75 mg tablet 1 tab PO DAILY 06/17/22 01/11/23 Unknown History ferrous sulfate 324 mg (65 mg 1 tab PO BID 06/17/22 01/11/23 Unknown History iron) tablet,delayed release insulin aspart U-100 100 unit/mL 1 sliding scale dose subcut DAILY 06/17/22 01/11/23 Unknown History (3 mL) subcutaneous pen (Novolog FlexPen U-100 Insulin aspart) lisinopril 20 mg tablet 20 mg PO DAILY 06/17/22 01/11/23 Unknown History methadone 10 mg/mL oral concentrate 65 mg PO DAILY 06/17/22 01/12/23 06/16/22 History tamsulosin 0.4 mg capsule 1 cap PO BEDTIME 06/17/22 01/11/23 Unknown History aspirin 81 mg tablet,delayed 81 mg PO DAILY 01/11/23 01/11/23 Unknown History release atorvastatin 10 mg tablet 10 mg PO BEDTIME 01/11/23 01/11/23 Unknown History citalopram 20 mg tablet 20 mg PO DAILY 01/11/23 01/11/23 Unknown History hydroxyzine pamoate 25 mg capsule 25 mg PO TID PRN itch 01/11/23 01/11/23 Unknown History insulin glargine 100 unit/mL 9 unit subcut DAILY 01/11/23 01/11/23 Unknown History subcutaneous solution (Lantus U-100 Insulin) metformin 1,000 mg tablet 1,000 mg PO BID 01/11/23 01/11/23 Unknown History metoprolol succinate 50 mg 50 mg PO DAILY 01/11/23 01/11/23 Unknown History tablet,extended release 24 hr naloxone 4 mg/actuation nasal 4 mg intranasal Q3M PRN Opioid 01/11/23 01/11/23 Unknown History spray (Narcan) Overdose nifedipine 30 mg tablet,extended 30 mg PO DAILY 01/11/23 01/11/23 Unknown History release omeprazole 20 mg capsule,delayed 20 mg PO DAILY@0630 01/11/23 01/11/23 Unknown History release pregabalin 50 mg capsule 50 mg PO TID 01/11/23 01/11/23 Unknown History Exam Exam Date and Time: January 13, 2023 124 Height,Weight and Vital Signs: Height 5 ft 6 in Weight 81.647 kg Last Vital Signs Temp 98 F 01/13/23 12:26 Pulse 63 01/13/23 12:26 Resp 20 01/13/23 12:26 BP 133/61 01/13/23 12:26 Pulse Ox 97 01/13/23 12:26 O2 Del Method Room Air 01/13/23 12:26 Pertinent Lab Results Pertinent Lab Results: Laboratory Tests 01/11/23 01/11/23 01/11/23 14:10 14:10 14:10 WBC 6.3 RBC 2.79 L Hgb 7.1 L Hct 23.1 L MCV 82.8 MCH 25.4 L MCHC 30.7 L RDW 14.4 Plt Count 190 MPV 10.9 Immature Gran % (Auto) 0.2 Neut % (Auto) 62.8 Lymph % (Auto) 25.5 [place] % (Auto) 8.5 Eos % (Auto) 2.5 Baso % (Auto) 0.5 Lymph # (Auto) 1.6 [place] # (Auto) 0.5 Eos # (Auto) 0.2 Baso # (Auto) 0.0 Abs Immat Gran (auto) 0.01 Absolute Neuts (auto) 4.0 Absolute Nucleated RBC 0.000 Nucleated RBC % (auto) 0.0 PT INR APTT 30.1 Sodium 139 Potassium 5.5 H Chloride 108 Carbon Dioxide 24 Anion Gap 13 BUN 35 H Creatinine 1.43 H Estim Creat Clear Calc 57.1 Estimated GFR 51 POC Glucose Random Glucose 120 H Calcium 9.1 Total Bilirubin 0.2 Direct Bilirubin < 0.2 AST 14 ALT 27 Alkaline Phosphatase 70 Total Protein 7.1 Albumin 3.7 Lipase 8 Blood Type Antibody Screen Crossmatch 01/11/23 01/11/23 01/11/23 14:10 14:38 18:21 WBC RBC Hgb Hct MCV MCH MCHC RDW Plt Count MPV Immature Gran % (Auto) Neut % (Auto) Lymph % (Auto) [place] % (Auto) Eos % (Auto) Baso % (Auto) Lymph # (Auto) [place] # (Auto) Eos # (Auto) Baso # (Auto) Abs Immat Gran (auto) Absolute Neuts (auto) Absolute Nucleated RBC Nucleated RBC % (auto) PT 11.9 INR 1.0 APTT Sodium Potassium Chloride Carbon Dioxide Anion Gap BUN Creatinine Estim Creat Clear Calc Estimated GFR POC Glucose 79 Random Glucose Calcium Total Bilirubin Direct Bilirubin AST ALT Alkaline Phosphatase Total Protein Albumin Lipase Blood Type AB Positive Antibody Screen NEGATIVE Crossmatch See Detail 01/11/23 01/12/23 01/12/23 21:17 07:14 11:07 WBC RBC Hgb Hct MCV MCH MCHC RDW Plt Count MPV Immature Gran % (Auto) Neut % (Auto) Lymph % (Auto) [place] % (Auto) Eos % (Auto) Baso % (Auto) Lymph # (Auto) [place] # (Auto) Eos # (Auto) Baso # (Auto) Abs Immat Gran (auto) Absolute Neuts (auto) Absolute Nucleated RBC Nucleated RBC % (auto) PT INR APTT Sodium Potassium Chloride Carbon Dioxide Anion Gap BUN Creatinine Estim Creat Clear Calc Estimated GFR POC Glucose 98 83 91 Random Glucose Calcium Total Bilirubin Direct Bilirubin AST ALT Alkaline Phosphatase Total Protein Albumin Lipase Blood Type Antibody Screen Crossmatch 01/12/23 01/12/23 01/12/23 13:21 15:57 20:08 WBC RBC Hgb Hct MCV MCH MCHC RDW Plt Count MPV Immature Gran % (Auto) Neut % (Auto) Lymph % (Auto) [place] % (Auto) Eos % (Auto) Baso % (Auto) Lymph # (Auto) [place] # (Auto) Eos # (Auto) Baso # (Auto) Abs Immat Gran (auto) Absolute Neuts (auto) Absolute Nucleated RBC Nucleated RBC % (auto) PT INR APTT Sodium 141 Potassium 5.8 H Chloride 110 H Carbon Dioxide 26 Anion Gap 11 L BUN 28 H Creatinine 1.37 Estim Creat Clear Calc 59.6 Estimated GFR 54 POC Glucose 74 131 H Random Glucose 89 Calcium 9.0 Total Bilirubin Direct Bilirubin AST ALT Alkaline Phosphatase Total Protein Albumin Lipase Blood Type Antibody Screen Crossmatch 01/13/23 01/13/23 01/13/23 05:54 05:54 07:06 WBC 5.6 RBC 2.77 L Hgb 7.1 L Hct 22.9 L MCV 82.7 MCH 25.6 L MCHC 31.0 RDW 14.2 Plt Count 176 MPV 11.5 Immature Gran % (Auto) Neut % (Auto) Lymph % (Auto) [place] % (Auto) Eos % (Auto) Baso % (Auto) Lymph # (Auto) [place] # (Auto) Eos # (Auto) Baso # (Auto) Abs Immat Gran (auto) Absolute Neuts (auto) Absolute Nucleated RBC 0.000 Nucleated RBC % (auto) 0.0 PT INR APTT Sodium 139 Potassium 4.6 D Chloride 107 Carbon Dioxide 27 Anion Gap 10 L BUN 28 H Creatinine 1.37 Estim Creat Clear Calc 59.6 Estimated GFR 54 POC Glucose 92 Random Glucose 88 Calcium 8.8 Total Bilirubin Direct Bilirubin AST ALT Alkaline Phosphatase Total Protein Albumin Lipase Blood Type Antibody Screen Crossmatch 01/13/23 11:05 WBC RBC Hgb Hct MCV MCH MCHC RDW Plt Count MPV Immature Gran % (Auto) Neut % (Auto) Lymph % (Auto) [place] % (Auto) Eos % (Auto) Baso % (Auto) Lymph # (Auto) [place] # (Auto) Eos # (Auto) Baso # (Auto) Abs Immat Gran (auto) Absolute Neuts (auto) Absolute Nucleated RBC Nucleated RBC % (auto) PT INR APTT Sodium Potassium Chloride Carbon Dioxide Anion Gap BUN Creatinine Estim Creat Clear Calc Estimated GFR POC Glucose 92 Random Glucose Calcium Total Bilirubin Direct Bilirubin AST ALT Alkaline Phosphatase Total Protein Albumin Lipase Blood Type Antibody Screen Crossmatch Airway Mallampati Class: II TM Dist: >3cm Neck ROM: Full Denture: Upper and Lower Heart: ok Lungs: ok Assessment and Plan Assessment Anesthesia Assessment: Anesthesia Plan Discussed and Chart Reviewed Final Anesthetic Review Family History of Problems with Anesthesia: No History of Problems with Anesthesia: No NPO: Yes ASA Class: IV Final Preanesthetic Review: No Changes in Pt Med Stat, Meds/Allgs Chart Reviewed, Consent Obtained/Reviewed and Anes Risks/Benef Reviewed Patient Risk: High Procedure Risk: Intermediate Anesthetic Plan Anesthetic Plan: MAC: and Agree w/ Assess. and Plan Disposition: Standard PACU
--- NOTE | 2023-01-13 12:50 | MHC.SHP ---
Pre-Procedural Eval Section A Date of Service: 01/13/23 The patient is an INPATIENT: Yes The History & Physical has been completed within 30 days and I have reviewed it.: Yes Section B Chief Complaint: melana, anemia Allergies: Allergies Allergy/AdvReac Type Severity Reaction Status Date / Time No Known Allergies Allergy Verified 12/28/22 13:52 [No Known Allergies*] Plan Diagnosis/Plan: Unchanged I have reviewed the history and physical and performed a pertinent physical examination on my patient. No changes have occurred unless specified. Time Spent With Patient Time: Total time managing care of this patient today ____ minutes.
--- NOTE | 2023-01-13 12:50 | W.PM.OPN ---
Operative Note Operative Note Date of Service: 01/13/23 Narrative: Procedure Description: EGD Indication: melena, anemia Anesthesia: MAC FLEXIBLE TRANSORAL UPPER GASTROINTESTINAL ENDOSCOPY UPPER ENDOSCOPY Consent: Indications for the procedure and potential complications of bleeding, perforation, reaction to medications and missed diagnosis were discussed with the patient and informed consent was obtained. Instrument: Olympus GIF H 190 J mid size upper endoscope Monitoring: Vital signs and clinical assessment, continuous EKG monitoring, Pulse oximetry, Carbon Dioxide monitoring and blood pressure monitoring were done throughout the procedure. Procedure: The patient was placed in the left lateral decubitis position and pre-procedure medications were administered and a bite block was placed. The endoscope was inserted into the mouth and advanced under direct vision to the third part of duodenum. A careful inspection was made as the upper endoscope was withdrawn including a retroflexed examination of the proximal stomach; Findings and interventions are described below. Findings: Larynx:normal Esophagus: GE junction at 38 cm, diaphragm hiatus at 38 cm, no varices or esophagitis. Stomach: Patchy gastric erythema. Biopsies were obtained. Grade 2 flap valve on retroflexed examination of the cardia. Duodenum: Normal bulb and descending duodenum, No active bleeding noted, or ulcers Intervention: Biopsies as noted above Impression/Findings: gastritis PLAN: if patient agrees then in patient colonoscopy tomorrow or as early outpatient, if refuses then can restart aspirin and pavix and keep on PPI If h pylori pos then treat
--- NOTE | 2023-01-13 12:51 | PC.NURSE ---
spoke to [facility] pts t&s will be extended until 8pm tonight floor rn ladonna perla aware from med/surg tigerred her
--- NOTE | 2023-01-13 13:06 | PC.NURSE ---
[facility] called back pt t&s expires tomorrow everyone aware
[2023-01-13 16:28] LABS: Glucose, Whole Blood 82 mg/dL (60-115)
[2023-01-13] MEDS: polyethylene glycoL 3350 17 GM POWD.PACK 238 GM PO (17:12)
[2023-01-13 20:42] LABS: Glucose, Whole Blood 158 mg/dL (60-115)
[2023-01-13] MEDS: Insulin Lispro 100 UNIT/ML 3 ML VIAL SUBCUT (21:23)
[2023-01-13] MEDS: Atorvastatin Calcium 10 MG TABLET PO (21:23)
[2023-01-13] MEDS: Tamsulosin HCL 0.4 MG CAPSULE PO (21:24)
--- NOTE | 2023-01-13 22:48 | PC.NURSE ---
Patient is drinking colonoscopy prep very slowly,offered assistance frequently,patient gets upset occasionally saying stop remainding me to drink that.
[2023-01-14] VITALS (8 sets, daily range): BP systolic 84–123; BP diastolic 45–64; PULSE 57–83; RESP 16–18; TEMP 35.9–36.6; O2SAT 96–99
[2023-01-14] MEDS: 0.9 % Sodium Chloride Flush 3 ML SYRINGE IVFLUSH ×4 (00:10→22:02)
[2023-01-14 05:47] LABS: Hematocrit 26.2 % (42.0-52.0); Hemoglobin 8.3 g/dl (14.0-18.0); Mean Corpuscular HGB Conc 31.7 g/dl (31.0-36.0); Mean Corpuscular Hemoglobin 25.8 pg (27.0-33.0); Mean Corpuscular Volume 81.4 fL (80.0-98.0); Mean Platelet Volume 10.8 fL (9.4-12.4); Platelet Count 173 X10*3/uL (160-400); Red Blood Count 3.22 X10*6/uL (4.60-5.80); Red Cell Distribution Width 13.8 % (11.0-16.0); White Blood Count 5.9 X10*3/uL (4.8-10.8)
[2023-01-14] MEDS: Pantoprazole Sodium 40 MG/10 ML VIAL IVPUSH (06:03)
[2023-01-14 07:23] LABS: Glucose, Whole Blood 92 mg/dL (60-115)
[2023-01-14] MEDS: methADONE HCl 20 MG/2 ML ORAL.CONC 65 MG PO (07:45)
[2023-01-14] MEDS: Metoprolol Succinate ER 50 MG TAB.ER.24H PO (07:46)
[2023-01-14] MEDS: NIFEdipine ER 30 MG TAB.ER.24 PO (07:46)
[2023-01-14] MEDS: lisinopriL 20 MG TABLET PO (07:46)
[2023-01-14] MEDS: Pregabalin 50 MG CAPSULE PO ×3 (07:46→22:00)
[2023-01-14] MEDS: Escitalopram Oxalate 10 MG TABLET PO (07:47)
[2023-01-14] MEDS: Ferrous Sulfate 324 MG TABLET.DR PO ×2 (07:47→22:00)
[2023-01-14] MEDS: Sodium Phosphate,Mono-Dibasic 133 ML ENEMA PR ×4 (09:49→11:26)
--- NOTE | 2023-01-14 10:29 | P.PNIM_ITS ---
Subjective Subjective Date of Service: 01/14/23 Interval History: f/u on anemia, melena Interval history: No report of bleeding, preping for colonscopy today Physical Exam Vital Signs: Vital Signs: Last Vital Signs Temp 97 F 01/14/23 06:57 Pulse 59 01/14/23 06:57 Resp 16 01/14/23 06:57 BP 118/60 01/14/23 06:57 Pulse Ox 99 01/14/23 06:57 O2 Del Method Room Air 01/14/23 06:57 BMI result Body Mass Index 29.0 Const: Other: General: AO X 3, no acute distress Resp: CTA bilateral CVS: S1,S2,RRR GI: +BS, NT, no distention Skin: No rash Neuro: motor grossly intact Psych: appropriate affect Objective Data Active Medications Aspirin (Aspirin Enteric Coated 81 Mg Tablet.) 81 mg PO DAILY [facility] Last Admin: 01/14/23 07:24 Dose: Not Given Documented By: MARLENI Non-Admin Reason: preop Atorvastatin Calcium (Atorvastatin Calcium 10 Mg Tablet) 10 mg PO BEDTIME [facility] Last Admin: 01/13/23 21:23 Dose: 10 mg Documented By: BETINA Clopidogrel Bisulfate (Clopidogrel Bisulfate 75 Mg Tablet) 75 mg PO DAILY [facility] Last Admin: 01/14/23 08:10 Dose: Not Given Documented By: MARLENI Non-Admin Reason: preop Escitalopram Oxalate (Escitalopram Oxalate 10 Mg Tablet) 10 mg PO DAILY [facility] Last Admin: 01/14/23 07:47 Dose: 10 mg Documented By: DAVID Ferrous Sulfate (Ferrous Sulfate 324 Mg Tablet.) 324 mg PO BID [facility] Last Admin: 01/14/23 07:47 Dose: 324 mg Documented By: DAVID Glucose (Glucose Gel 15 Gm Gel..Gram.) 15 gm PO Q15M PRN; Protocol PRN Reason: per Hypoglycemia Standing Ord. Hydroxyzine HCl (Hydroxyzine Hcl 25 Mg Tablet) 25 mg PO TID PRN PRN Reason: itch Dextrose (D10) 250 mls @ 750 mls/hr IV Q15M PRN; Protocol PRN Reason: per Hypoglycemia Standing Ord. Insulin Glargine (Insulin Glargine,Hum.Rec.Anlog 100 Unit/Ml 10 Ml Vial) 9 unit SUBCUT DAILY [facility] Last Admin: 01/14/23 07:24 Dose: Not Given Documented By: MARLENI Non-Admin Reason: NPO Insulin Human Lispro (Insulin Lispro 100 Unit/Ml 3 Ml Vial) 0 unit SUBCUT QIDACHS [facility]; Protocol Last Admin: 01/14/23 07:23 Dose: Not Given Documented By: MARLENI Non-Admin Reason: No Insulin Coverage Lisinopril (Lisinopril 20 Mg Tablet) 20 mg PO DAILY [facility]; Protocol Last Admin: 01/14/23 07:46 Dose: 20 mg Documented By: DAVID Metformin HCl (Metformin Hcl 1,000 Mg Tablet) 1,000 mg PO BIDWM [facility] Last Admin: 01/14/23 07:23 Dose: Not Given Documented By: MARLENI Non-Admin Reason: NPO Methadone HCl (Methadone Hcl 20 Mg/2 Ml Oral.Conc) 65 mg PO DAILY [facility] Last Admin: 01/14/23 07:45 Dose: 65 mg Documented By: DAVID Metoprolol Succinate (Metoprolol Succinate Er 50 Mg Tab.Er.24h) 50 mg PO DAILY [facility]; Protocol Last Admin: 01/14/23 07:46 Dose: 50 mg Documented By: DAVID Naloxone HCl (Naloxone Hcl Nasal 4 Mg [place]) 4 mg NOSTRILALT Q3M PRN PRN Reason: Opioid Overdose Nifedipine (Nifedipine Er 30 Mg Tab.Er.24) 30 mg PO DAILY [facility] Last Admin: 01/14/23 07:46 Dose: 30 mg Documented By: DAVID Omeprazole (Omeprazole 20 Mg Capsule.Dr) 20 mg PO DAILY@629 [facility] Last Admin: 01/14/23 06:03 Dose: Not Given Documented By: MARCELL Non-Admin Reason: NPO Pantoprazole Sodium (Pantoprazole Sodium 40 Mg/10 Ml Vial) 40 mg IVPUSH DAILY@30 [facility] Last Admin: 01/14/23 06:03 Dose: 40 mg Documented By: MARCELL Pregabalin (Pregabalin 50 Mg Capsule) 50 mg PO TID [facility] Last Admin: 01/14/23 07:46 Dose: 50 mg Documented By: DAVID Sodium Biphosphate/Sodium Phosphate (Sodium Phosphate,[place]-Dibasic 133 Ml [place]) 133 ml [place] ONCE PRN PRN Reason: Consult order Last Admin: 01/14/23 09:49 Dose: 133 ml Documented By: MARLENI Sodium Biphosphate/Sodium Phosphate (Sodium Phosphate,[place]-Dibasic 133 Ml Enema) 133 ml [place] ONCE PRN PRN Reason: Consult order Last Admin: 01/14/23 09:58 Dose: 133 ml Documented By: MARLENI Sodium Chloride (0.9 % Sodium Chloride Flush 3 Ml Syringe) 3 ml IVFLUSH QSHIFT [facility] Last Admin: 01/14/23 07:50 Dose: 3 ml Documented By: RAYMOND-KLELEOPOLDO Tamsulosin HCl (Tamsulosin Hcl 0.4 Mg Capsule) 0.4 mg PO BEDTIME [facility] Last Admin: 01/13/23 21:24 Dose: 0.4 mg Documented By: ALVARADOIT Labs 01/14/23 05:31 01/13/23 05:54 Labs: Laboratory Results - last 24 hr 01/13/23 01/13/23 01/13/23 11:05 16:24 20:38 MCV MCH MCHC RDW Plt Count MPV Absolute Nucleated RBC Nucleated RBC % (auto) POC Glucose 92 82 158 H 01/14/23 01/14/23 05:31 07:19 MCV 81.4 MCH 25.8 L MCHC 31.7 RDW 13.8 Plt Count 173 MPV 10.8 Absolute Nucleated RBC 0.000 Nucleated RBC % (auto) 0.0 POC Glucose 92 Assessment and Plan (1) Melena: Status: Acute (2) Anemia: Status: Acute (3) Painless rectal bleeding: Status: Acute Plan 56-year-old male with history of chronic normocytic anemia, insulin-dependent type 2 diabetes, chronic kidney disease stage III, history of opiate use disorder on methadone patient denies recent use, peripheral artery disease with recent admission s/p L TMA, Chronic anemia here with Melana and anemia Melana andacute on chronic anemia due to blood loss, no evidence evidence of acute blood loss -IV PPI, to have EGD today, transfused 1 unit of RBC on 01/14 #Insulin dependence type 2 diabetes with hypoglycemia -POC glucose -diabetic diet -Insulin #HypERkalemia of 5.5, got 10 of lokelma on 01/12 and now K is 4.6 # opiate use disorder -continue methadone # PAD--hold ASA and Plavix for now until after EGD DVT prophylaxis compresion device d/t anemia, and low H?H Full code need for inaptient: colonoscopy today for anemia, possible dc later depending colonoscopy findings Time Spent With Patient Time: Total time managing care of this patient today ____ minutes. Quality Stroke Does the patient have a stroke diagnosis?: No VTE Prior VTE?: No VTE Risk Level:: Medical - moderate - high VTE Device Contraindication: Treatment Not Indicated VTE Drug Contraindication: Treatment Not Indicated
[2023-01-14 12:14] LABS: Glucose, Whole Blood 87 mg/dL (60-115)
--- NOTE | 2023-01-14 12:25 | MHC.SHP ---
Pre-Procedural Eval Section A Date of Service: 01/14/23 The patient is an INPATIENT: Yes The History & Physical has been completed within 30 days and I have reviewed it.: Yes Section B Chief Complaint: melana, anemia Allergies: Allergies Allergy/AdvReac Type Severity Reaction Status Date / Time No Known Allergies Allergy Verified 12/28/22 13:52 [No Known Allergies*] Plan Diagnosis/Plan: Unchanged I have reviewed the history and physical and performed a pertinent physical examination on my patient. No changes have occurred unless specified. Time Spent With Patient Time: Total time managing care of this patient today ____ minutes.
--- NOTE | 2023-01-14 13:24 | P.OP_ITS ---
Operative Note Operative Note Date of Service: 01/14/23 Narrative: Operative Information Procedure Description: Colonoscopy Indication: anemia Anesthesia: MAC COLONOSCOPY Instrument: Olympus variable stiffness pediatric scope 190L Colonoscopy Monitoring: Vital signs and clinical assessment, continuous EKG monitoring, Pulse oximetry, Carbon Dioxide monitoring and blood pressure monitoring were done throughout the procedure. Colon withdrawal time was 8 minutes. Procedure: The patient was placed in the left lateral decubitis position and pre-procedure medications were administered. After a digital rectal examination of the ano-rectum, the video colonoscope was inserted into the rectum and advanced through the colon to the cecum/TI. The colonoscope was slowly withdrawn in a retrograde panoramic fashion and the colon mucosa was carefully examined including a retroflexed view of the rectum. Findings and interventions are described below. Procedure Difficulty: moderate Findings: Terminal Ileum- unable to intubate Cecum:normal Ascending Colon: Circumferential mass in the proximal AC which was friable and hard, initially wasnt able to get past so I wasn't sure of landmark so injected grace ink at the distal edge and took biopsies. Then with aspiration of air and manipulation of the scope was able to bypass the lesion and see the cecum. Transverse Colon -normal Descending Colon:normal Sigmoid Colon: moderate diverticulosis Rectum: Retroflexion with small internal hemorrhoids, grade I Anorectum - normal Colon preparation: [place] Bowel Preparation Scale Right colon; 2 Transverse colon: 2 Left colon; 2 (0 = Unprepared colon segment with mucosa not seen due to solid stool that cannot be cleared. 1 = Portion of mucosa of the colon segment seen, but other areas of the colon segment not well seen due to staining, residual stool and/or opaque liquid. 2 = Minor amount of residual staining, small fragments of stool and/or opaque liquid, but mucosa of colon segment seen well. 3 = Entire mucosa of colon segment seen well with no residual staining, small fragments of stool or opaque liquid) Impression and Post Procedure Diagnosis: colonic mass diverticulosis internal hemorrhoids Plan: Low roughage diet surgical consult CT A/P and chest with contrast if renal function allows Above findings were reviewed with the patient and relevant handouts were provided if indicated.
[2023-01-14 14:08] LABS: Glucose, Whole Blood 71 mg/dL (60-115)
--- NOTE | 2023-01-14 14:37 | PM.CNGS ---
History of Present Illness Consult details Consult date: 01/14/23 Narrative: 57M referred for a right colon mass. He was admitted to the hospital last January 11, 2023 for dark stools with note of anemia. He has peripheral vascular disease and has been on Plavix. He eventually underwent a colonoscopy today and this showed a mass in the proximal right colon. He otherwise denies abdominal pain. He has good oral intake. He denies altered bowel habits. He denies weight loss. He is a known Diabetic and has a hx of opioid use. He has a hx of transmet amp on the left. Review of Systems Constitutional: Constitutional: Denies chills and Denies fever(s) Cardiovascular: Cardiovascular: Denies chest pain, Denies dyspnea and Denies dyspnea on exertion Respiratory: Respiratory: Denies cough, Denies dyspnea and Denies dyspnea on exertion Gastrointestinal: Gastrointestinal: Denies change in bowel habits Comments: dark maroon stools Genitourinary: Genitourinary: Denies hematuria and Denies difficulty urinating Musculoskeletal: Musculoskeletal: Denies back pain and Denies limited range of motion Neurologic: Denies focal weakness and Denies convulsions Psychiatric: Psychiatric: Denies depression and Denies mood swings [facility] Past Medical History Medical History (Updated 01/20/23 @ 16:50 by Parish Santana MD) Anemia Chronic anemia CKD (chronic kidney disease) Colon cancer Colonic mass Diabetes Diabetes type 2, controlled Diabetic infection of left foot Fever of unknown origin History of prostate cancer Migraine Morbid obesity Opioid use disorder Osteomyelitis PAD (peripheral artery disease) Sleep apnea Family History Family History Mother No pertinent family history Surgical History Surgical History S/P transmetatarsal amputation of foot Social History Social History Household Members: Spouse Housing: Apartment Do you presently have visiting nurse or other home services: Yes Alcohol intake: never Patient Tobacco Use Status: Never used Tobacco Use of substances other than those prescribed or required for medical reasons: No Substance Use Type: Opiates Currently Displaying Signs/Symptoms of Drug Intoxication Withdrawal: No Have you been hit, kicked, punched, or otherwise hurt by someone within the past year? If so, by whom?: No Do you feel safe in your current relationship?: Yes Is there a partner from a previous relationship who is making you feel unsafe now?: No Are you made to feel afraid or neglected: No [facility] Practices: mu-ism Are you DNR?: No Advance Directives: Yes Advance Directives Information Provided: Yes Advance Directives on File: No Advance Directives Date on File: 01/11/23 Do you have thoughts of harming others: None Do you have a plan to hurt others: No Plan Recently lost weight without trying: No Nutrition Risks: No Nutritional Risk service: No Current occupational status: disabled Meds Allergies Allergy/AdvReac Type Severity Reaction Status Date / Time No Known Allergies Allergy Verified 12/28/22 13:52 [No Known Allergies*] Active Medications: Current Medications Aspirin (Aspirin Enteric Coated 81 Mg Tablet.) 81 mg PO DAILY [facility] Last Admin: 01/14/23 07:24 Dose: Not Given Atorvastatin Calcium (Atorvastatin Calcium 10 Mg Tablet) 10 mg PO BEDTIME [facility] Last Admin: 01/13/23 21:23 Dose: 10 mg Clopidogrel Bisulfate (Clopidogrel Bisulfate 75 Mg Tablet) 75 mg PO DAILY [facility] Last Admin: 01/14/23 08:10 Dose: Not Given Escitalopram Oxalate (Escitalopram Oxalate 10 Mg Tablet) 10 mg PO DAILY [facility] Last Admin: 01/14/23 07:47 Dose: 10 mg Ferrous Sulfate (Ferrous Sulfate 324 Mg Tablet.) 324 mg PO BID [facility] Last Admin: 01/14/23 07:47 Dose: 324 mg Glucose (Glucose Gel 15 Gm Gel..Gram.) 15 gm PO Q15M PRN; Protocol PRN Reason: per Hypoglycemia Standing Ord. Hydroxyzine HCl (Hydroxyzine Hcl 25 Mg Tablet) 25 mg PO TID PRN PRN Reason: itch Dextrose (D10) 250 mls @ 750 mls/hr IV Q15M PRN; Protocol PRN Reason: per Hypoglycemia Standing Ord. Insulin Glargine (Insulin Glargine,Hum.Rec.Anlog 100 Unit/Ml 10 Ml Vial) 9 unit SUBCUT DAILY [facility] Last Admin: 01/14/23 07:24 Dose: Not Given Insulin Human Lispro (Insulin Lispro 100 Unit/Ml 3 Ml Vial) 0 unit SUBCUT QIDACHS [facility]; Protocol Last Admin: 01/14/23 13:29 Dose: Not Given Lisinopril (Lisinopril 20 Mg Tablet) 20 mg PO DAILY [facility]; Protocol Last Admin: 01/14/23 07:46 Dose: 20 mg Metformin HCl (Metformin Hcl 1,000 Mg Tablet) 1,000 mg PO BIDWM [facility] Last Admin: 01/14/23 07:23 Dose: Not Given Methadone HCl (Methadone Hcl 20 Mg/2 Ml Oral.Conc) 65 mg PO DAILY [facility] Last Admin: 01/14/23 07:45 Dose: 65 mg Metoprolol Succinate (Metoprolol Succinate Er 50 Mg Tab.Er.24h) 50 mg PO DAILY [facility]; Protocol Last Admin: 01/14/23 07:46 Dose: 50 mg Naloxone HCl (Naloxone Hcl Nasal 4 Mg [place]) 4 mg NOSTRILALT Q3M PRN PRN Reason: Opioid Overdose Nifedipine (Nifedipine Er 30 Mg Tab.Er.24) 30 mg PO DAILY [facility] Last Admin: 01/14/23 07:46 Dose: 30 mg Omeprazole (Omeprazole 20 Mg Capsule.Dr) 20 mg PO DAILY@629 [facility] Last Admin: 01/14/23 06:03 Dose: Not Given Pantoprazole Sodium (Pantoprazole Sodium 40 Mg/10 Ml Vial) 40 mg IVPUSH DAILY@629 [facility] Last Admin: 01/14/23 06:03 Dose: 40 mg Pregabalin (Pregabalin 50 Mg Capsule) 50 mg PO TID [facility] Last Admin: 01/14/23 14:16 Dose: 50 mg Sodium Biphosphate/Sodium Phosphate (Sodium Phosphate,[place]-Dibasic 133 Ml Enema) 133 ml [place] ONCE PRN PRN Reason: Consult order Last Admin: 01/14/23 11:12 Dose: 133 ml Sodium Chloride (0.9 % Sodium Chloride Flush 3 Ml Syringe) 3 ml IVFLUSH QSHIFT [facility] Last Admin: 01/14/23 07:50 Dose: 3 ml Tamsulosin HCl (Tamsulosin Hcl 0.4 Mg Capsule) 0.4 mg PO BEDTIME [facility] Last Admin: 01/13/23 21:24 Dose: 0.4 mg Home Medications Medication Instructions Recorded Confirmed Last Taken Type clopidogrel 75 mg tablet 1 tab PO DAILY 06/17/22 01/11/23 Unknown History ferrous sulfate 324 mg (65 mg 1 tab PO BID 06/17/22 01/11/23 Unknown History iron) tablet,delayed release insulin aspart U-100 100 unit/mL 1 sliding scale dose subcut DAILY 06/17/22 01/11/23 Unknown History (3 mL) subcutaneous pen (Novolog FlexPen U-100 Insulin aspart) lisinopril 20 mg tablet 20 mg PO DAILY 06/17/22 01/11/23 Unknown History methadone 10 mg/mL oral concentrate 65 mg PO DAILY 06/17/22 01/12/23 06/16/22 History tamsulosin 0.4 mg capsule 1 cap PO BEDTIME 06/17/22 01/11/23 Unknown History aspirin 81 mg tablet,delayed 81 mg PO DAILY 01/11/23 01/11/23 Unknown History release atorvastatin 10 mg tablet 10 mg PO BEDTIME 01/11/23 01/11/23 Unknown History citalopram 20 mg tablet 20 mg PO DAILY 01/11/23 01/11/23 Unknown History hydroxyzine pamoate 25 mg capsule 25 mg PO TID PRN itch 01/11/23 01/11/23 Unknown History insulin glargine 100 unit/mL 9 unit subcut DAILY 01/11/23 01/11/23 Unknown History subcutaneous solution (Lantus U-100 Insulin) metformin 1,000 mg tablet 1,000 mg PO BID 01/11/23 01/11/23 Unknown History metoprolol succinate 50 mg 50 mg PO DAILY 01/11/23 01/11/23 Unknown History tablet,extended release 24 hr naloxone 4 mg/actuation nasal 4 mg intranasal Q3M PRN Opioid 01/11/23 01/11/23 Unknown History spray (Narcan) Overdose nifedipine 30 mg tablet,extended 30 mg PO DAILY 01/11/23 01/11/23 Unknown History release omeprazole 20 mg capsule,delayed 20 mg PO DAILY@0630 01/11/23 01/11/23 Unknown History release pregabalin 50 mg capsule 50 mg PO TID 01/11/23 01/11/23 Unknown History Physical Exam Vital Signs: Vital Signs: Last Vital Signs Temp 97.0 F 01/14/23 13:50 Pulse 83 01/14/23 13:50 Resp 16 01/14/23 13:50 BP 101/53 L 01/14/23 13:50 Pulse Ox 96 01/14/23 13:50 O2 Del Method Room Air 01/14/23 13:50 BMI result Body Mass Index 29.0 Const: Other: appears obese General: comfortable and no acute distress Orientation/consciousness: patient oriented x3 Neck: Neck: Yes no lymphadenopathy Resp: Auscultation: clear to auscultation bilaterally Cardio: Rhythm: regular rhythm GI: Palpation (GI): Soft to palpation, nontender and no guarding Neuro: General: patient oriented x3 Extrem: Other: left foot TMA Results Labs 01/14/23 05:31 01/13/23 05:54 Labs: Abnormal lab results 01/13/23 01/14/23 Range/Units 20:38 05:31 RBC 3.22 L (4.60-5.80) X10*6/uL Hgb 8.3 L (14.0-18.0) g/dl Hct 26.2 L (42.0-52.0) % MCH 25.8 L (27.0-33.0) pg POC Glucose 158 H (60-115) mg/dL Short CBC 01/14/23 Range/Units 05:31 WBC 5.9 (4.8-10.8) X10*3/uL Hgb 8.3 L (14.0-18.0) g/dl Hct 26.2 L (42.0-52.0) % Plt Count 173 (160-400) X10*3/uL All other labs normal. Assessment and Plan (1) Colonic mass: Status: Acute He has had dark stools with anemia, and his colonoscopy today showed a colon mass in the proximal ascending colon. His exam is otherwise benign. He appears comfortable. We will await the path report. I explained to him that we will plan on right colon resection in view of this new colon mass. We may be able to do this next week. I will follow along while he is here in the hospitall. He does have multiple comorbid conditions, including vasculopathy, DM, obesity and chronic kidney disease. Time Spent With Patient Time: Total time managing care of this patient today ____ minutes. Procedures Date of Service Date of Service: 01/20/23
--- NOTE | 2023-01-14 15:27 | HO.POSTANES ---
Post Anesthesia Evaluation Post Anesthesia Evaluation Date of Service: 01/14/23 Vital Signs: Vital Signs Temp Pulse Resp BP Pulse Ox O2 Del Method 01/14/23 13:01 Room Air 01/14/23 13:50 97.0 F 83 16 101/53 L 96 Room Air 01/14/23 13:35 97.0 F 72 16 84/45 L 97 Room Air 01/14/23 12:00 96.6 F L 62 16 105/55 L 98 Room Air 01/14/23 06:57 97 F 59 16 118/60 99 Room Air 01/14/23 06:55 98 F 60 18 118/60 97 Room Air Anesthesia: Monitored Mental Status: Awake Pain Control: Satisfactory Nausea/Vomiting: None Hydration: Adequate Anesthesia-Related Issues: No Anes. Related Issues
[2023-01-14 16:39] LABS: Glucose, Whole Blood 161 mg/dL (60-115)
[2023-01-14] MEDS: metFORMIN HCl 1,000 MG TABLET 1000 MG PO (16:53)
[2023-01-14] MEDS: Insulin Lispro 100 UNIT/ML 3 ML VIAL SUBCUT ×2 (16:53→22:00)
[2023-01-14 20:20] LABS: Glucose, Whole Blood 186 mg/dL (60-115)
[2023-01-14] MEDS: Tamsulosin HCL 0.4 MG CAPSULE PO (22:00)
[2023-01-14] MEDS: Atorvastatin Calcium 10 MG TABLET PO (22:00)
[2023-01-15] VITALS: RESP 18
[2023-01-15 03:44] VITALS: BP 125/62; PULSE 60; RESP 18; TEMP 36.7; O2SAT 97
[2023-01-15] MEDS: Omeprazole 20 MG CAPSULE.DR PO (05:44)
[2023-01-15] MEDS: Pantoprazole Sodium 40 MG/10 ML VIAL IVPUSH (05:44)
[2023-01-15 07:33] VITALS: BP 116/64; PULSE 78; RESP 18; TEMP 36.4; O2SAT 98
[2023-01-15 08:01] LABS: Hematocrit 28.6 % (42.0-52.0); Hemoglobin 9.1 g/dl (14.0-18.0); Mean Corpuscular HGB Conc 31.8 g/dl (31.0-36.0); Mean Corpuscular Hemoglobin 25.9 pg (27.0-33.0); Mean Corpuscular Volume 81.3 fL (80.0-98.0); Mean Platelet Volume 10.5 fL (9.4-12.4); Platelet Count 202 X10*3/uL (160-400); Red Blood Count 3.52 X10*6/uL (4.60-5.80); White Blood Count 6.9 X10*3/uL (4.8-10.8)
--- NOTE | 2023-01-15 08:21 | HO.PM.IMPN ---
Subjective Subjective Date of Service: 01/15/23 Interval History: f/u on anemia, melena Interval history:colonsocopy 01/14 revealed a colon mass, no new issues Physical Exam Vital Signs: Vital Signs: Last Vital Signs Temp 97.5 F 01/15/23 07:33 Pulse 78 01/15/23 07:33 Resp 18 01/15/23 07:33 BP 116/64 01/15/23 07:33 Pulse Ox 98 01/15/23 07:33 O2 Del Method Room Air 01/15/23 07:33 BMI result Body Mass Index 29.0 Const: Other: General: AO X 3, no acute distress Resp: CTA bilateral CVS: S1,S2,RRR GI: +BS, NT, no distention Skin: No rash Neuro: motor grossly intact Psych: appropriate affect Objective Data Active Medications Atorvastatin Calcium (Atorvastatin Calcium 10 Mg Tablet) 10 mg PO BEDTIME [facility] Last Admin: 01/14/23 22:00 Dose: 10 mg Documented By: RICHARD Escitalopram Oxalate (Escitalopram Oxalate 10 Mg Tablet) 10 mg PO DAILY [facility] Last Admin: 01/14/23 07:47 Dose: 10 mg Documented By: DAIVD Ferrous Sulfate (Ferrous Sulfate 324 Mg Tablet.Dr) 324 mg PO BID [facility] Last Admin: 01/14/23 22:00 Dose: 324 mg Documented By: RICHARD Glucose (Glucose Gel 15 Gm Gel..Gram.) 15 gm PO Q15M PRN; Protocol PRN Reason: per Hypoglycemia Standing Ord. Hydroxyzine HCl (Hydroxyzine Hcl 25 Mg Tablet) 25 mg PO TID PRN PRN Reason: itch Dextrose (D10) 250 mls @ 750 mls/hr IV Q15M PRN; Protocol PRN Reason: per Hypoglycemia Standing Ord. Insulin Glargine (Insulin Glargine,Hum.Rec.Anlog 100 Unit/Ml 10 Ml Vial) 9 unit SUBCUT DAILY [facility] Last Admin: 01/14/23 07:24 Dose: Not Given Documented By: MARLENI Non-Admin Reason: NPO Insulin Human Lispro (Insulin Lispro 100 Unit/Ml 3 Ml Vial) 0 unit SUBCUT QIDACHS [facility]; Protocol Last Admin: 01/14/23 22:00 Dose: 2 unit Documented By: RICHARD Lisinopril (Lisinopril 20 Mg Tablet) 20 mg PO DAILY [facility]; Protocol Last Admin: 01/14/23 07:46 Dose: 20 mg Documented By: DAVID Metformin HCl (Metformin Hcl 1,000 Mg Tablet) 1,000 mg PO BIDWM [facility] Last Admin: 01/14/23 16:53 Dose: 1,000 mg Documented By: GARRETT Methadone HCl (Methadone Hcl 20 Mg/2 Ml Oral.Conc) 65 mg PO DAILY [facility] Last Admin: 01/14/23 07:45 Dose: 65 mg Documented By: DAVID Metoprolol Succinate (Metoprolol Succinate Er 50 Mg Tab.Er.24h) 50 mg PO DAILY [facility]; Protocol Last Admin: 01/14/23 07:46 Dose: 50 mg Documented By: DAVID Naloxone HCl (Naloxone Hcl Nasal 4 Mg [place]) 4 mg NOSTRILALT Q3M PRN PRN Reason: Opioid Overdose Nifedipine (Nifedipine Er 30 Mg Tab.Er.24) 30 mg PO DAILY [facility] Last Admin: 01/14/23 07:46 Dose: 30 mg Documented By: DAVID Omeprazole (Omeprazole 20 Mg Capsule.Dr) 20 mg PO DAILY@629 [facility] Last Admin: 01/15/23 05:44 Dose: 20 mg Documented By: RICHARD Pantoprazole Sodium (Pantoprazole Sodium 40 Mg/10 Ml Vial) 40 mg IVPUSH DAILY@629 [facility] Last Admin: 01/15/23 05:44 Dose: 40 mg Documented By: RICHARD Pregabalin (Pregabalin 50 Mg Capsule) 50 mg PO TID [facility] Last Admin: 01/14/23 22:00 Dose: 50 mg Documented By: RICHARD Sodium Biphosphate/Sodium Phosphate (Sodium Phosphate,[place]-Dibasic 133 Ml Enema) 133 ml [place] ONCE PRN PRN Reason: Consult order Last Admin: 01/14/23 11:12 Dose: 133 ml Documented By: MARLENI Sodium Chloride (0.9 % Sodium Chloride Flush 3 Ml Syringe) 3 ml IVFLUSH QSHIFT [facility] Last Admin: 01/14/23 22:02 Dose: 3 ml Documented By: RICHARD Tamsulosin HCl (Tamsulosin Hcl 0.4 Mg Capsule) 0.4 mg PO BEDTIME [facility] Last Admin: 01/14/23 22:00 Dose: 0.4 mg Documented By: RICHARD Labs 01/15/23 07:54 01/13/23 05:54 Labs: Laboratory Results - last 24 hr 01/14/23 01/14/23 01/14/23 12:03 14:05 16:17 MCV MCH MCHC RDW Plt Count MPV Absolute Nucleated RBC Nucleated RBC % (auto) POC Glucose 87 71 161 H 01/14/23 01/15/23 20:03 07:54 MCV 81.3 MCH 25.9 L MCHC 31.8 RDW 14.0 Plt Count 202 MPV 10.5 Absolute Nucleated RBC 0.000 Nucleated RBC % (auto) 0.0 POC Glucose 186 H Assessment and Plan (1) Melena: Status: Acute (2) Anemia: Status: Acute (3) Painless rectal bleeding: Status: Acute Plan 56-year-old male with history of chronic normocytic anemia, insulin-dependent type 2 diabetes, chronic kidney disease stage III, history of opiate use disorder on methadone patient denies recent use, peripheral artery disease with recent admission s/p L TMA, Chronic anemia here with Melana and anemia Melana andvacute on chronic anemia due to blood loss, no evidence evidence of acute blood loss EGD on 01/13 unremarkable, Colonoscopy 01/14 colon mass, is planing colon surgery next week. H/H remains stable #Insulin dependence type 2 diabetes with hypoglycemia -POC glucose -diabetic diet -Insulin #HypERkalemia of 5.5, got 10 of [facility] on 01/12 and now K is 4.6 # opiate use disorder -continue methadone # PAD--hold ASA and Plavix DVT prophylaxis compresion device d/t anemia, and low H?H Full code need for inaptient: awaling colon surgery Time Spent With Patient Time: Total time managing care of this patient today ____ minutes. Quality Stroke Does the patient have a stroke diagnosis?: No VTE Prior VTE?: No VTE Risk Level:: Medical - moderate - high VTE Device Contraindication: Treatment Not Indicated VTE Drug Contraindication: Treatment Not Indicated
[2023-01-15 08:28] LABS: Glucose, Whole Blood 133 mg/dL (60-115)
[2023-01-15 08:28] LABS: Glucose, Whole Blood 122 mg/dL (60-115)
[2023-01-15] MEDS: 0.9 % Sodium Chloride Flush 3 ML SYRINGE IVFLUSH ×3 (08:52→20:39)
[2023-01-15] MEDS: Pregabalin 50 MG CAPSULE PO ×3 (08:53→20:38)
[2023-01-15] MEDS: Escitalopram Oxalate 10 MG TABLET PO (08:53)
[2023-01-15] MEDS: Ferrous Sulfate 324 MG TABLET.DR PO ×2 (08:53→20:38)
[2023-01-15] MEDS: NIFEdipine ER 30 MG TAB.ER.24 PO (08:53)
[2023-01-15] MEDS: metFORMIN HCl 1,000 MG TABLET 1000 MG PO ×2 (08:53→17:19)
[2023-01-15] MEDS: Insulin Glargine,Hum.rec.anlog 100 UNIT/ML 10 ML VIAL 9 UNIT SUBCUT (08:53)
[2023-01-15] MEDS: lisinopriL 20 MG TABLET PO (08:54)
[2023-01-15] MEDS: methADONE HCl 20 MG/2 ML ORAL.CONC 65 MG PO (08:54)
[2023-01-15] MEDS: Metoprolol Succinate ER 50 MG TAB.ER.24H PO (08:54)
--- NOTE | 2023-01-15 09:44 | PM.PNGS ---
Subjective Subjective Date of Service: 01/15/23 Interval history: feels well denies abdl pain says he is comfortable good GI function Physical Exam Vital Signs: Vital Signs: Last Vital Signs Temp 97.5 F 01/15/23 07:33 Pulse 78 01/15/23 07:33 Resp 18 01/15/23 07:33 BP 116/64 01/15/23 07:33 Pulse Ox 98 01/15/23 07:33 O2 Del Method Room Air 01/15/23 07:33 BMI result Body Mass Index 29.0 Const: General: comfortable and no acute distress Resp: Effort & Inspection: normal respiratory effort Cardio: Rate: regular rate GI: Palpation (GI): Soft to palpation, not firm and nontender Objective Data Active Medications Atorvastatin Calcium (Atorvastatin Calcium 10 Mg Tablet) 10 mg PO BEDTIME [facility] Last Admin: 01/14/23 22:00 Dose: 10 mg Documented By: RICHARD Escitalopram Oxalate (Escitalopram Oxalate 10 Mg Tablet) 10 mg PO DAILY [facility] Last Admin: 01/15/23 08:53 Dose: 10 mg Documented By: SMILEY Ferrous Sulfate (Ferrous Sulfate 324 Mg Tablet.Dr) 324 mg PO BID [facility] Last Admin: 01/15/23 08:53 Dose: 324 mg Documented By: SMILEY Glucose (Glucose Gel 15 Gm Gel..Gram.) 15 gm PO Q15M PRN; Protocol PRN Reason: per Hypoglycemia Standing Ord. Hydroxyzine HCl (Hydroxyzine Hcl 25 Mg Tablet) 25 mg PO TID PRN PRN Reason: itch Dextrose (D10) 250 mls @ 750 mls/hr IV Q15M PRN; Protocol PRN Reason: per Hypoglycemia Standing Ord. Insulin Glargine (Insulin Glargine,Hum.Rec.Anlog 100 Unit/Ml 10 Ml Vial) 9 unit SUBCUT DAILY [facility] Last Admin: 01/15/23 08:53 Dose: 9 unit Documented By: SMILEY Insulin Human Lispro (Insulin Lispro 100 Unit/Ml 3 Ml Vial) 0 unit SUBCUT QIDACHS [facility]; Protocol Last Admin: 01/15/23 08:29 Dose: Not Given Documented By: SMILEY Non-Admin Reason: No Insulin Coverage Lisinopril (Lisinopril 20 Mg Tablet) 20 mg PO DAILY [facility]; Protocol Last Admin: 01/15/23 08:54 Dose: 20 mg Documented By: SMILEY Metformin HCl (Metformin Hcl 1,000 Mg Tablet) 1,000 mg PO BIDWM [facility] Last Admin: 01/15/23 08:53 Dose: 1,000 mg Documented By: SMILEY Methadone HCl (Methadone Hcl 20 Mg/2 Ml Oral.Conc) 65 mg PO DAILY [facility] Last Admin: 01/15/23 08:54 Dose: 65 mg Documented By: SMILEY Metoprolol Succinate (Metoprolol Succinate Er 50 Mg Tab.Er.24h) 50 mg PO DAILY [facility]; Protocol Last Admin: 01/15/23 08:54 Dose: 50 mg Documented By: SMILEY Naloxone HCl (Naloxone Hcl Nasal 4 Mg [place]) 4 mg NOSTRILALT Q3M PRN PRN Reason: Opioid Overdose Nifedipine (Nifedipine Er 30 Mg Tab.Er.24) 30 mg PO DAILY [facility] Last Admin: 01/15/23 08:53 Dose: 30 mg Documented By: SMILEY Omeprazole (Omeprazole 20 Mg Capsule.Dr) 20 mg PO DAILY@629 [facility] Last Admin: 01/15/23 05:44 Dose: 20 mg Documented By: RICHARD Pantoprazole Sodium (Pantoprazole Sodium 40 Mg/10 Ml Vial) 40 mg IVPUSH DAILY@629 [facility] Last Admin: 01/15/23 05:44 Dose: 40 mg Documented By: RICHARD Pregabalin (Pregabalin 50 Mg Capsule) 50 mg PO TID [facility] Last Admin: 01/15/23 08:53 Dose: 50 mg Documented By: SMILEY Sodium Biphosphate/Sodium Phosphate (Sodium Phosphate,[place]-Dibasic 133 Ml Enema) 133 ml [place] ONCE PRN PRN Reason: Consult order Last Admin: 01/14/23 11:12 Dose: 133 ml Documented By: MARLENI Sodium Chloride (0.9 % Sodium Chloride Flush 3 Ml Syringe) 3 ml IVFLUSH QSHIFT [facility] Last Admin: 01/15/23 08:52 Dose: 3 ml Documented By: SMILEY Tamsulosin HCl (Tamsulosin Hcl 0.4 Mg Capsule) 0.4 mg PO BEDTIME [facility] Last Admin: 01/14/23 22:00 Dose: 0.4 mg Documented By: RICHARD Labs 01/15/23 07:54 01/13/23 05:54 Labs: Laboratory Results - last 24 hr 01/14/23 01/14/23 01/14/23 12:03 14:05 16:17 MCV MCH MCHC RDW Plt Count MPV Absolute Nucleated RBC Nucleated RBC % (auto) POC Glucose 87 71 161 H 01/14/23 01/15/23 01/15/23 20:03 07:35 07:54 MCV 81.3 MCH 25.9 L MCHC 31.8 RDW 14.0 Plt Count 202 MPV 10.5 Absolute Nucleated RBC 0.000 Nucleated RBC % (auto) 0.0 POC Glucose 186 H 122 H 01/15/23 08:24 MCV MCH MCHC RDW Plt Count MPV Absolute Nucleated RBC Nucleated RBC % (auto) POC Glucose 133 H Procedures Date of Service Date of Service: 01/15/23 Progress Note: A&P Assessment and plan (1) Colonic mass: Status: Acute Assessment and Plan: await path exam benign will likely need resection option to dc home and do resection as outpt as long as pt is reliable with ffup follow Hg Time Spent With Patient Time: Total time managing care of this patient today ____ minutes. Quality Stroke Does the patient have a stroke diagnosis?: No VTE Prior VTE?: No VTE Risk Level:: Medical - moderate - high VTE Device Contraindication: Treatment Not Indicated VTE Drug Contraindication: Treatment Not Indicated
[2023-01-15 11:44] LABS: Glucose, Whole Blood 156 mg/dL (60-115)
[2023-01-15] MEDS: Insulin Lispro 100 UNIT/ML 3 ML VIAL SUBCUT (11:49)
[2023-01-15 13:00] VITALS: O2SAT 95
[2023-01-15 16:00] VITALS: BP 102/68; PULSE 75; RESP 16; TEMP 36.4; O2SAT 99
[2023-01-15 16:42] LABS: Glucose, Whole Blood 68 mg/dL (60-115)
[2023-01-15 17:22] LABS: Glucose, Whole Blood 77 mg/dL (60-115)
[2023-01-15 20:00] VITALS: RESP 20
[2023-01-15 20:25] LABS: Glucose, Whole Blood 122 mg/dL (60-115)
[2023-01-15] MEDS: Atorvastatin Calcium 10 MG TABLET PO (20:38)
[2023-01-15] MEDS: Tamsulosin HCL 0.4 MG CAPSULE PO (20:38)
[2023-01-16 03:34] VITALS: BP 145/65; PULSE 70; RESP 18; TEMP 36.4; O2SAT 98
[2023-01-16 04:00] VITALS: RESP 18
[2023-01-16] MEDS: Omeprazole 20 MG CAPSULE.DR PO (05:14)
[2023-01-16 07:35] LABS: Glucose, Whole Blood 83 mg/dL (60-115)
[2023-01-16 08:00] VITALS: BP 145/65; PULSE 70; RESP 18; TEMP 36.4; O2SAT 98
[2023-01-16] MEDS: Pregabalin 50 MG CAPSULE PO ×3 (08:28→21:27)
[2023-01-16] MEDS: metFORMIN HCl 1,000 MG TABLET 1000 MG PO ×2 (08:29→16:51)
[2023-01-16] MEDS: lisinopriL 20 MG TABLET PO (08:30)
[2023-01-16] MEDS: Ferrous Sulfate 324 MG TABLET.DR PO ×2 (08:30→21:27)
[2023-01-16] MEDS: methADONE HCl 20 MG/2 ML ORAL.CONC 65 MG PO (08:30)
[2023-01-16] MEDS: 0.9 % Sodium Chloride Flush 3 ML SYRINGE IVFLUSH ×2 (08:30→14:56)
[2023-01-16] MEDS: Escitalopram Oxalate 10 MG TABLET PO (08:30)
[2023-01-16] MEDS: Metoprolol Succinate ER 50 MG TAB.ER.24H PO (08:30)
[2023-01-16] MEDS: NIFEdipine ER 30 MG TAB.ER.24 PO (08:30)
[2023-01-16] MEDS: Insulin Glargine,Hum.rec.anlog 100 UNIT/ML 10 ML VIAL 9 UNIT SUBCUT (08:31)
--- NOTE | 2023-01-16 09:14 | P.PNIM_ITS ---
Subjective Subjective Date of Service: 01/16/23 Interval History: f/u on colon mass, anemia, awaiting surgery no new issues Physical Exam Vital Signs: Vital Signs: Last Vital Signs Temp 97.5 F 01/16/23 08:00 Pulse 70 01/16/23 08:00 Resp 18 01/16/23 08:00 BP 145/65 H 01/16/23 08:00 Pulse Ox 98 01/16/23 08:00 O2 Del Method Room Air 01/16/23 03:34 BMI result Body Mass Index 29.0 Const: Other: General: AO X 3, no acute distress Resp: CTA bilateral CVS: S1,S2,RRR GI: +BS, NT, no distention Skin: No rash Neuro: motor grossly intact Psych: appropriate affect Objective Data Active Medications Atorvastatin Calcium (Atorvastatin Calcium 10 Mg Tablet) 10 mg PO BEDTIME [facility] Last Admin: 01/15/23 20:38 Dose: 10 mg Documented By: RICHARD Escitalopram Oxalate (Escitalopram Oxalate 10 Mg Tablet) 10 mg PO DAILY [facility] Last Admin: 01/16/23 08:30 Dose: 10 mg Documented By: SMILEY Ferrous Sulfate (Ferrous Sulfate 324 Mg Tablet.Dr) 324 mg PO BID [facility] Last Admin: 01/16/23 08:30 Dose: 324 mg Documented By: SMILEY Glucose (Glucose Gel 15 Gm Gel..Gram.) 15 gm PO Q15M PRN; Protocol PRN Reason: per Hypoglycemia Standing Ord. Hydroxyzine HCl (Hydroxyzine Hcl 25 Mg Tablet) 25 mg PO TID PRN PRN Reason: itch Dextrose (D10) 250 mls @ 750 mls/hr IV Q15M PRN; Protocol PRN Reason: per Hypoglycemia Standing Ord. Insulin Glargine (Insulin Glargine,Hum.Rec.Anlog 100 Unit/Ml 10 Ml Vial) 9 unit SUBCUT DAILY [facility] Last Admin: 01/16/23 08:31 Dose: 9 unit Documented By: SMILEY Insulin Human Lispro (Insulin Lispro 100 Unit/Ml 3 Ml Vial) 0 unit SUBCUT QIDACHS [facility]; Protocol Last Admin: 01/16/23 07:40 Dose: Not Given Documented By: SMILEY Non-Admin Reason: No Insulin Coverage Lisinopril (Lisinopril 20 Mg Tablet) 20 mg PO DAILY [facility]; Protocol Last Admin: 01/16/23 08:30 Dose: 20 mg Documented By: SMILEY Metformin HCl (Metformin Hcl 1,000 Mg Tablet) 1,000 mg PO BIDWM [facility] Last Admin: 01/16/23 08:29 Dose: 1,000 mg Documented By: SMILEY Methadone HCl (Methadone Hcl 20 Mg/2 Ml Oral.Conc) 65 mg PO DAILY [facility] Last Admin: 01/16/23 08:30 Dose: 65 mg Documented By: SMILEY Metoprolol Succinate (Metoprolol Succinate Er 50 Mg Tab.Er.24h) 50 mg PO DAILY [facility]; Protocol Last Admin: 01/16/23 08:30 Dose: 50 mg Documented By: SMILEY Naloxone HCl (Naloxone Hcl Nasal 4 Mg [place]) 4 mg NOSTRILALT Q3M PRN PRN Reason: Opioid Overdose Nifedipine (Nifedipine Er 30 Mg Tab.Er.24) 30 mg PO DAILY [facility] Last Admin: 01/16/23 08:30 Dose: 30 mg Documented By: SMILEY Omeprazole (Omeprazole 20 Mg Capsule.Dr) 20 mg PO DAILY@0630 [facility] Last Admin: 01/16/23 05:14 Dose: 20 mg Documented By: RICHARD Pregabalin (Pregabalin 50 Mg Capsule) 50 mg PO TID [facility] Last Admin: 01/16/23 08:28 Dose: 50 mg Documented By: SMILEY Sodium Biphosphate/Sodium Phosphate (Sodium Phosphate,[place]-Dibasic 133 Ml Enema) 133 ml [place] ONCE PRN PRN Reason: Consult order Last Admin: 01/14/23 11:12 Dose: 133 ml Documented By: MARLENI Sodium Chloride (0.9 % Sodium Chloride Flush 3 Ml Syringe) 3 ml IVFLUSH QSHIFT [facility] Last Admin: 01/16/23 08:30 Dose: 3 ml Documented By: SMILEY Tamsulosin HCl (Tamsulosin Hcl 0.4 Mg Capsule) 0.4 mg PO BEDTIME [facility] Last Admin: 01/15/23 20:38 Dose: 0.4 mg Documented By: RICHARD Labs 01/15/23 07:54 01/13/23 05:54 Labs: Laboratory Results - last 24 hr 01/15/23 01/15/23 01/15/23 11:37 16:38 17:16 POC Glucose 156 H 68 77 01/15/23 01/16/23 20:19 07:24 POC Glucose 122 H 83 Assessment and Plan (1) Melena: Status: Acute (2) Anemia: Status: Acute (3) Painless rectal bleeding: Status: Acute Plan 56-year-old male with history of chronic normocytic anemia, insulin-dependent type 2 diabetes, chronic kidney disease stage III, history of opiate use disorder on methadone patient denies recent use, peripheral artery disease with recent admission s/p L TMA, Chronic anemia here with Melana and anemia Melana andvacute on chronic anemia due to blood loss, no evidence evidence of acute blood loss EGD on 01/13 unremarkable, Colonoscopy 01/14 colon mass, is planing colon surgery next week. H/H remains stable, patient is saying if he goes home he won't come back for surgery #Insulin dependence type 2 diabetes with hypOglycemia -POC glucose -diabetic diet -Insulin #HypERkalemia of 5.5, got 10 of lokelwv on 01/12 and now K is 4.6 # opiate use disorder -continue methadone # PAD--hold ASA and Plavix DVT prophylaxis compresion device d/t anemia, and low H?H Full code need for inaptient: awaling colon surgery Time Spent With Patient Time: Total time managing care of this patient today ____ minutes. Quality Stroke Does the patient have a stroke diagnosis?: No VTE Prior VTE?: No VTE Risk Level:: Medical - moderate - high VTE Device Contraindication: Treatment Not Indicated VTE Drug Contraindication: Treatment Not Indicated
[2023-01-16 11:56] LABS: Glucose, Whole Blood 114 mg/dL (60-115)
--- NOTE | 2023-01-16 12:20 | HO.POSTANES ---
Post Anesthesia Evaluation Post Anesthesia Evaluation Date of Service: 01/14/23 Vital Signs: Vital Signs Temp Pulse Resp BP Pulse Ox O2 Del Method 01/16/23 08:00 97.5 F 70 18 145/65 H 98 01/16/23 04:00 18 01/16/23 03:34 97.5 F 70 18 145/65 H 98 Room Air Anesthesia: Monitored Mental Status: Awake Pain Control: Satisfactory Nausea/Vomiting: None Hydration: Adequate Anesthesia-Related Issues: No Anes. Related Issues
[2023-01-16 15:46] VITALS: BP 129/78; PULSE 77; RESP 17; TEMP 36.3; O2SAT 98
[2023-01-16 16:33] LABS: Glucose, Whole Blood 117 mg/dL (60-115)
[2023-01-16 19:58] VITALS: BP 117/68; PULSE 75; RESP 18; TEMP 36.2; O2SAT 97
[2023-01-16 20:08] LABS: Glucose, Whole Blood 149 mg/dL (60-115)
[2023-01-16] MEDS: Atorvastatin Calcium 10 MG TABLET PO (21:26)
[2023-01-16] MEDS: Tamsulosin HCL 0.4 MG CAPSULE PO (21:27)
[2023-01-17] MEDS: 0.9 % Sodium Chloride Flush 3 ML SYRINGE IVFLUSH ×4 (00:18→19:51)
[2023-01-17 03:37] VITALS: BP 116/55; PULSE 69; RESP 14; TEMP 36.2; O2SAT 98
[2023-01-17 04:00] VITALS: RESP 18
[2023-01-17 06:08] LABS: Hematocrit 27.7 % (42.0-52.0); Hemoglobin 8.4 g/dl (14.0-18.0); Mean Corpuscular HGB Conc 30.3 g/dl (31.0-36.0); Mean Corpuscular Hemoglobin 25.5 pg (27.0-33.0); Mean Corpuscular Volume 83.9 fL (80.0-98.0); Mean Platelet Volume 10.9 fL (9.4-12.4); Platelet Count 191 X10*3/uL (160-400); Red Cell Distribution Width 14.6 % (11.0-16.0)
[2023-01-17] MEDS: Omeprazole 20 MG CAPSULE.DR PO (06:17)
[2023-01-17 06:31] LABS: Anion Gap 10 (12-20); Blood Urea Nitrogen 39 mg/dL (9-16); Calcium 9.2 mg/dL (8.4-10.2); Carbon Dioxide 27 mmol/L (22-29); Chloride 110 mmol/L (96-108); Creatinine Clr Calc Pharmacy 53.4; Estimated Glomerular Filt Rate 47; Glucose Random 96 mg/dL (60-115); Potassium 4.8 mmol/L (3.3-5.1); Sodium 142 mmol/L (135-145)
[2023-01-17 07:37] VITALS: BP 110/68; PULSE 80; RESP 16; TEMP 36.3; O2SAT 98
[2023-01-17 07:47] LABS: Glucose, Whole Blood 120 mg/dL (60-115)
[2023-01-17] MEDS: methADONE HCl 20 MG/2 ML ORAL.CONC 65 MG PO (08:34)
[2023-01-17] MEDS: Insulin Glargine,Hum.rec.anlog 100 UNIT/ML 10 ML VIAL 9 UNIT SUBCUT (08:34)
[2023-01-17] MEDS: Ferrous Sulfate 324 MG TABLET.DR PO ×2 (08:36→20:06)
[2023-01-17] MEDS: Metoprolol Succinate ER 50 MG TAB.ER.24H PO (08:36)
[2023-01-17] MEDS: Pregabalin 50 MG CAPSULE PO ×3 (08:36→20:06)
[2023-01-17] MEDS: NIFEdipine ER 30 MG TAB.ER.24 PO (08:36)
[2023-01-17] MEDS: metFORMIN HCl 1,000 MG TABLET 1000 MG PO ×2 (08:36→16:51)
[2023-01-17] MEDS: Escitalopram Oxalate 10 MG TABLET PO (08:36)
[2023-01-17] MEDS: lisinopriL 20 MG TABLET PO (08:36)
[2023-01-17] MEDS: oxyCODONE HCl Immed Release 5 MG TABLET PO ×2 (09:40→19:51)
--- NOTE | 2023-01-17 10:53 | P.PNGS_ITS ---
Subjective Subjective Date of Service: 01/17/23 Interval history: Denies complaints Good oral intake Good BMs Denies abdominal pain Physical Exam Vital Signs: Vital Signs: Last Vital Signs Temp 97.4 F 01/17/23 07:37 Pulse 80 01/17/23 07:37 Resp 16 01/17/23 07:37 BP 110/68 01/17/23 07:37 Pulse Ox 98 01/17/23 07:37 O2 Del Method Room Air 01/17/23 07:37 BMI result Body Mass Index 29.0 Const: General: comfortable and no acute distress Resp: Effort & Inspection: normal respiratory effort Cardio: Rate: regular rate GI: Palpation (GI): Soft to palpation, not firm, nontender and no guarding Objective Data Active Medications Atorvastatin Calcium (Atorvastatin Calcium 10 Mg Tablet) 10 mg PO BEDTIME [facility] Last Admin: 01/16/23 21:26 Dose: 10 mg Documented By: CANELO Escitalopram Oxalate (Escitalopram Oxalate 10 Mg Tablet) 10 mg PO DAILY [facility] Last Admin: 01/17/23 08:36 Dose: 10 mg Documented By: BRAD Ferrous Sulfate (Ferrous Sulfate 324 Mg Tablet.Dr) 324 mg PO BID [facility] Last Admin: 01/17/23 08:36 Dose: 324 mg Documented By: BRAD Glucose (Glucose Gel 15 Gm Gel..Gram.) 15 gm PO Q15M PRN; Protocol PRN Reason: per Hypoglycemia Standing Ord. Hydroxyzine HCl (Hydroxyzine Hcl 25 Mg Tablet) 25 mg PO TID PRN PRN Reason: itch Dextrose (D10) 250 mls @ 750 mls/hr IV Q15M PRN; Protocol PRN Reason: per Hypoglycemia Standing Ord. Insulin Glargine (Insulin Glargine,Hum.Rec.Anlog 100 Unit/Ml 10 Ml Vial) 9 unit SUBCUT DAILY [facility] Last Admin: 01/17/23 08:34 Dose: 9 unit Documented By: BRAD Insulin Human Lispro (Insulin Lispro 100 Unit/Ml 3 Ml Vial) 0 unit SUBCUT QIDACHS [facility]; Protocol Last Admin: 01/17/23 08:37 Dose: Not Given Documented By: BRAD Non-Admin Reason: No Insulin Coverage Lisinopril (Lisinopril 20 Mg Tablet) 20 mg PO DAILY [facility]; Protocol Last Admin: 01/17/23 08:36 Dose: 20 mg Documented By: BRAD Metformin HCl (Metformin Hcl 1,000 Mg Tablet) 1,000 mg PO BIDWM [facility] Last Admin: 01/17/23 08:36 Dose: 1,000 mg Documented By: BRAD Methadone HCl (Methadone Hcl 20 Mg/2 Ml Oral.Conc) 65 mg PO DAILY [facility] Last Admin: 01/17/23 08:34 Dose: 65 mg Documented By: BRAD Metoprolol Succinate (Metoprolol Succinate Er 50 Mg Tab.Er.24h) 50 mg PO DAILY [facility]; Protocol Last Admin: 01/17/23 08:36 Dose: 50 mg Documented By: BRAD Naloxone HCl (Naloxone Hcl Nasal 4 Mg [place]) 4 mg NOSTRILALT Q3M PRN PRN Reason: Opioid Overdose Nifedipine (Nifedipine Er 30 Mg Tab.Er.24) 30 mg PO DAILY [facility] Last Admin: 01/17/23 08:36 Dose: 30 mg Documented By: BRAD Omeprazole (Omeprazole 20 Mg Capsule.Dr) 20 mg PO DAILY@0630 [facility] Last Admin: 01/17/23 06:17 Dose: 20 mg Documented By: MARCELL Oxycodone HCl (Oxycodone Hcl Immed Release 5 Mg Tablet) 5 mg PO Q6H PRN PRN Reason: Pain, Severe (Pain Scale 7-10) Last Admin: 01/17/23 09:40 Dose: 5 mg Documented By: BRAD Pregabalin (Pregabalin 50 Mg Capsule) 50 mg PO TID [facility] Last Admin: 01/17/23 08:36 Dose: 50 mg Documented By: BRAD Sodium Biphosphate/Sodium Phosphate (Sodium Phosphate,[place]-Dibasic 133 Ml Enema) 133 ml [place] ONCE PRN PRN Reason: Consult order Last Admin: 01/14/23 11:12 Dose: 133 ml Documented By: MARLENI Sodium Chloride (0.9 % Sodium Chloride Flush 3 Ml Syringe) 3 ml IVFLUSH QSHIFT [facility] Last Admin: 01/17/23 08:37 Dose: 3 ml Documented By: BRAD Tamsulosin HCl (Tamsulosin Hcl 0.4 Mg Capsule) 0.4 mg PO BEDTIME [facility] Last Admin: 01/16/23 21:27 Dose: 0.4 mg Documented By: CANELO Labs 01/17/23 05:52 01/17/23 05:52 Labs: Laboratory Results - last 24 hr 01/16/23 01/16/23 01/16/23 11:33 16:27 20:01 MCV MCH MCHC RDW Plt Count MPV Absolute Nucleated RBC Nucleated RBC % (auto) Anion Gap Estim Creat Clear Calc Estimated GFR POC Glucose 114 117 H 149 H Random Glucose Calcium 01/17/23 01/17/23 01/17/23 05:52 05:52 07:35 MCV 83.9 MCH 25.5 L MCHC 30.3 L RDW 14.6 Plt Count 191 MPV 10.9 Absolute Nucleated RBC 0.000 Nucleated RBC % (auto) 0.0 Anion Gap 10 L Estim Creat Clear Calc 53.4 Estimated GFR 47 POC Glucose 120 H Random Glucose 96 Calcium 9.2 Procedures Date of Service Date of Service: 01/17/23 Progress Note: A&P Assessment and plan (1) Colonic mass: Status: Acute Assessment and Plan: Awaiting path report Looks well He says he does not want to go home come back for outpatient resection He says that he needs to stay in the hospital as he does not have any means of transportation Plan to do resection later this week once path report is back Time Spent With Patient Time: Total time managing care of this patient today ____ minutes. Quality Stroke Does the patient have a stroke diagnosis?: No VTE Prior VTE?: No VTE Risk Level:: Medical - moderate - high VTE Device Contraindication: Treatment Not Indicated VTE Drug Contraindication: Treatment Not Indicated
[2023-01-17 11:36] LABS: Glucose, Whole Blood 174 mg/dL (60-115)
--- NOTE | 2023-01-17 11:44 | MHC.CM.PN ---
EMR REVIEWED AND PER MD ROUNDS, PT WILL HAVE SURGERY FOR COLONIC MASS THIS WEEK AFTER PATH REPORT RETURNS. UPDATES GIVEN TO [facility]. CM WILL CONTINUE TO FOLLOW FOR DC NEEDS/PLAN.
[2023-01-17] MEDS: Insulin Lispro 100 UNIT/ML 3 ML VIAL SUBCUT (11:49)
--- NOTE | 2023-01-17 12:20 | P.PNIM_ITS ---
Subjective Subjective Date of Service: 01/17/23 Interval History: f/u on colon mass, anemia, awaiting surgery no new, awaiting surgery Physical Exam Vital Signs: Vital Signs: Last Vital Signs Temp 97.4 F 01/17/23 07:37 Pulse 80 01/17/23 07:37 Resp 16 01/17/23 07:37 BP 110/68 01/17/23 07:37 Pulse Ox 98 01/17/23 07:37 O2 Del Method Room Air 01/17/23 07:37 BMI result Body Mass Index 29.0 Const: Other: General: AO X 3, no acute distress Resp: CTA bilateral CVS: S1,S2,RRR GI: +BS, NT, no distention Skin: No rash Neuro: motor grossly intact Psych: appropriate affect Objective Data Active Medications Atorvastatin Calcium (Atorvastatin Calcium 10 Mg Tablet) 10 mg PO BEDTIME [facility] Last Admin: 01/16/23 21:26 Dose: 10 mg Documented By: CANELO Escitalopram Oxalate (Escitalopram Oxalate 10 Mg Tablet) 10 mg PO DAILY [facility] Last Admin: 01/17/23 08:36 Dose: 10 mg Documented By: BRAD Ferrous Sulfate (Ferrous Sulfate 324 Mg Tablet.Dr) 324 mg PO BID [facility] Last Admin: 01/17/23 08:36 Dose: 324 mg Documented By: BRAD Glucose (Glucose Gel 15 Gm Gel..Gram.) 15 gm PO Q15M PRN; Protocol PRN Reason: per Hypoglycemia Standing Ord. Hydroxyzine HCl (Hydroxyzine Hcl 25 Mg Tablet) 25 mg PO TID PRN PRN Reason: itch Dextrose (D10) 250 mls @ 750 mls/hr IV Q15M PRN; Protocol PRN Reason: per Hypoglycemia Standing Ord. Insulin Glargine (Insulin Glargine,Hum.Rec.Anlog 100 Unit/Ml 10 Ml Vial) 9 unit SUBCUT DAILY [facility] Last Admin: 01/17/23 08:34 Dose: 9 unit Documented By: BRAD Insulin Human Lispro (Insulin Lispro 100 Unit/Ml 3 Ml Vial) 0 unit SUBCUT QIDACHS [facility]; Protocol Last Admin: 01/17/23 11:49 Dose: 2 unit Documented By: BRAD Lisinopril (Lisinopril 20 Mg Tablet) 20 mg PO DAILY [facility]; Protocol Last Admin: 01/17/23 08:36 Dose: 20 mg Documented By: BRAD Metformin HCl (Metformin Hcl 1,000 Mg Tablet) 1,000 mg PO BIDWM [facility] Last Admin: 01/17/23 08:36 Dose: 1,000 mg Documented By: BRAD Methadone HCl (Methadone Hcl 20 Mg/2 Ml Oral.Conc) 65 mg PO DAILY [facility] Last Admin: 01/17/23 08:34 Dose: 65 mg Documented By: BRAD Metoprolol Succinate (Metoprolol Succinate Er 50 Mg Tab.Er.24h) 50 mg PO DAILY [facility]; Protocol Last Admin: 01/17/23 08:36 Dose: 50 mg Documented By: BRAD Naloxone HCl (Naloxone Hcl Nasal 4 Mg [place]) 4 mg NOSTRILALT Q3M PRN PRN Reason: Opioid Overdose Nifedipine (Nifedipine Er 30 Mg Tab.Er.24) 30 mg PO DAILY [facility] Last Admin: 01/17/23 08:36 Dose: 30 mg Documented By: BRAD Omeprazole (Omeprazole 20 Mg Capsule.Dr) 20 mg PO DAILY@0630 [facility] Last Admin: 01/17/23 06:17 Dose: 20 mg Documented By: MARCELL Oxycodone HCl (Oxycodone Hcl Immed Release 5 Mg Tablet) 5 mg PO Q6H PRN PRN Reason: Pain, Severe (Pain Scale 7-10) Last Admin: 01/17/23 09:40 Dose: 5 mg Documented By: BRAD Pregabalin (Pregabalin 50 Mg Capsule) 50 mg PO TID [facility] Last Admin: 01/17/23 08:36 Dose: 50 mg Documented By: BRAD Sodium Biphosphate/Sodium Phosphate (Sodium Phosphate,[place]-Dibasic 133 Ml Enema) 133 ml [place] ONCE PRN PRN Reason: Consult order Last Admin: 01/14/23 11:12 Dose: 133 ml Documented By: MARLEIN Sodium Chloride (0.9 % Sodium Chloride Flush 3 Ml Syringe) 3 ml IVFLUSH QSHIFT [facility] Last Admin: 01/17/23 08:37 Dose: 3 ml Documented By: BRAD Tamsulosin HCl (Tamsulosin Hcl 0.4 Mg Capsule) 0.4 mg PO BEDTIME [facility] Last Admin: 01/16/23 21:27 Dose: 0.4 mg Documented By: CANELO Labs 01/17/23 05:52 01/17/23 05:52 Labs: Laboratory Results - last 24 hr 01/16/23 01/16/23 01/17/23 16:27 20:01 05:52 MCV 83.9 MCH 25.5 L MCHC 30.3 L RDW 14.6 Plt Count 191 MPV 10.9 Absolute Nucleated RBC 0.000 Nucleated RBC % (auto) 0.0 Anion Gap Estim Creat Clear Calc Estimated GFR POC Glucose 117 H 149 H Random Glucose Calcium 01/17/23 01/17/23 01/17/23 05:52 07:35 11:25 MCV MCH MCHC RDW Plt Count MPV Absolute Nucleated RBC Nucleated RBC % (auto) Anion Gap 10 L Estim Creat Clear Calc 53.4 Estimated GFR 47 POC Glucose 120 H 174 H Random Glucose 96 Calcium 9.2 Assessment and Plan (1) Melena: Status: Acute (2) Anemia: Status: Acute (3) Painless rectal bleeding: Status: Acute Plan 56-year-old male with history of chronic normocytic anemia, insulin-dependent type 2 diabetes, chronic kidney disease stage III, history of opiate use diso rder on methadone patient denies recent use, peripheral artery disease with recent admission s/p L TMA, Chronic anemia here with Melana and anemia.. He underwent colonoscopy and noted to have a mass ans is awaiting surgery once pathology report is available, he has been transfused one unit of RBC, he is unreliable and unlikely to return for surgery if discharged Melana and acute on chronic anemia due to blood loss s/p 1 unit of RBC EGD on 01/13 unremarkable, Colonoscopy 01/14 noted colon mass, Dr Santana . is planing colon surgery later this week once pathology report is available, he will need oncology follow up as well but not necessary as inpatient, H/H remains stable, patient is saying if he goes home he won't come back for surgery #Insulin dependence type 2 diabetes with hypOglycemia -POC glucose -diabetic diet -Insulin #HypERkalemia of 5.5, got 10 of keloh on 01/12 and now K is 4.8 # opiate use disorder -continue methadone # PAD--hold ASA and Plavix DVT prophylaxis compresion device d/t anemia, and low H?H Full code need for inaptient: awaling colon surgery Time Spent With Patient Time: Total time managing care of this patient today ____ minutes. Quality Stroke Does the patient have a stroke diagnosis?: No VTE Prior VTE?: No VTE Risk Level:: Medical - moderate - high VTE Device Contraindication: Treatment Not Indicated VTE Drug Contraindication: Treatment Not Indicated
[2023-01-17 15:19] VITALS: BP 116/68; PULSE 73; RESP 20; TEMP 36.3; O2SAT 98
[2023-01-17 16:24] LABS: Glucose, Whole Blood 72 mg/dL (60-115)
[2023-01-17 17:15] LABS: Glucose, Whole Blood 69 mg/dL (60-115)
[2023-01-17 17:15] LABS: Glucose, Whole Blood 83 mg/dL (60-115)
[2023-01-17 19:49] VITALS: BP 124/58; PULSE 86; RESP 17; TEMP 36.4; O2SAT 96
[2023-01-17 20:00] VITALS: RESP 18
[2023-01-17] MEDS: Tamsulosin HCL 0.4 MG CAPSULE PO (20:06)
[2023-01-17] MEDS: Atorvastatin Calcium 10 MG TABLET PO (20:06)
[2023-01-17 20:59] LABS: Glucose, Whole Blood 120 mg/dL (60-115)
[2023-01-18 03:33] VITALS: BP 122/61; PULSE 79; RESP 18; TEMP 37.2; O2SAT 99
[2023-01-18 04:00] VITALS: BP 122/61; PULSE 79; RESP 18; TEMP 37.2; O2SAT 99
[2023-01-18] MEDS: Omeprazole 20 MG CAPSULE.DR PO (05:26)
[2023-01-18 07:30] VITALS: BP 131/58; PULSE 78; RESP 18; TEMP 36.9; O2SAT 98
[2023-01-18 07:49] LABS: Glucose, Whole Blood 112 mg/dL (60-115)
[2023-01-18 08:00] VITALS: BP 131/58; PULSE 78; RESP 18; TEMP 36.9
[2023-01-18] MEDS: Insulin Glargine,Hum.rec.anlog 100 UNIT/ML 10 ML VIAL 9 UNIT SUBCUT (08:04)
[2023-01-18] MEDS: metFORMIN HCl 1,000 MG TABLET 1000 MG PO ×2 (08:04→16:59)
[2023-01-18] MEDS: NIFEdipine ER 30 MG TAB.ER.24 PO (08:04)
[2023-01-18] MEDS: Pregabalin 50 MG CAPSULE PO ×3 (08:04→20:45)
[2023-01-18] MEDS: Escitalopram Oxalate 10 MG TABLET PO (08:04)
[2023-01-18] MEDS: lisinopriL 20 MG TABLET PO (08:04)
[2023-01-18] MEDS: Metoprolol Succinate ER 50 MG TAB.ER.24H PO (08:04)
[2023-01-18] MEDS: Ferrous Sulfate 324 MG TABLET.DR PO ×2 (08:04→20:45)
[2023-01-18] MEDS: methADONE HCl 20 MG/2 ML ORAL.CONC 65 MG PO (08:04)
[2023-01-18] MEDS: 0.9 % Sodium Chloride Flush 3 ML SYRINGE IVFLUSH ×3 (08:05→20:45)
[2023-01-18 11:23] LABS: Glucose, Whole Blood 123 mg/dL (60-115)
--- NOTE | 2023-01-18 13:28 | MHC.CM.PN ---
NO PLAN FOR DC. BIOPSY RESULTS PENDING. PLAN WILL THEN BE SURGICAL INTERVENTION
--- NOTE | 2023-01-18 14:02 | HO.PM.IMPN ---
Subjective Subjective Date of Service: 01/18/23 Interval History: colon mass Review of Systems denies new c/o-any chest pain or sob or abd pain Physical Exam Vital Signs: Vital Signs: Last Vital Signs Temp 98.4 F 01/18/23 08:00 Pulse 78 01/18/23 08:00 Resp 18 01/18/23 08:00 BP 131/58 L 01/18/23 08:00 Pulse Ox 98 01/18/23 07:30 O2 Del Method Room Air 01/18/23 07:30 BMI result Body Mass Index 29.0 General: AO X 3, no acute distress Resp:? CTA bilateral CVS: S1,S2,RRR GI: +BS, NT, no distention Skin: No rash Neuro:? motor grossly intact Psych: appropriate affect Objective Data Active Medications Atorvastatin Calcium (Atorvastatin Calcium 10 Mg Tablet) 10 mg PO BEDTIME [facility] Last Admin: 01/17/23 20:06 Dose: 10 mg Documented By: NORY Escitalopram Oxalate (Escitalopram Oxalate 10 Mg Tablet) 10 mg PO DAILY [facility] Last Admin: 01/18/23 08:04 Dose: 10 mg Documented By: ABHAY Ferrous Sulfate (Ferrous Sulfate 324 Mg Tablet.Dr) 324 mg PO BID [facility] Last Admin: 01/18/23 08:04 Dose: 324 mg Documented By: ABHAY Glucose (Glucose Gel 15 Gm Gel..Gram.) 15 gm PO Q15M PRN; Protocol PRN Reason: per Hypoglycemia Standing Ord. Hydroxyzine HCl (Hydroxyzine Hcl 25 Mg Tablet) 25 mg PO TID PRN PRN Reason: itch Dextrose (D10) 250 mls @ 750 mls/hr IV Q15M PRN; Protocol PRN Reason: per Hypoglycemia Standing Ord. Insulin Glargine (Insulin Glargine,Hum.Rec.Anlog 100 Unit/Ml 10 Ml Vial) 9 unit SUBCUT DAILY [facility] Last Admin: 01/18/23 08:04 Dose: 9 unit Documented By: ABHAY Insulin Human Lispro (Insulin Lispro 100 Unit/Ml 3 Ml Vial) 0 unit SUBCUT QIDACHS [facility]; Protocol Last Admin: 01/18/23 11:26 Dose: Not Given Documented By: ABHAY Non-Admin Reason: No Insulin Coverage Lisinopril (Lisinopril 20 Mg Tablet) 20 mg PO DAILY [facility]; Protocol Last Admin: 01/18/23 08:04 Dose: 20 mg Documented By: ABHAY Metformin HCl (Metformin Hcl 1,000 Mg Tablet) 1,000 mg PO BIDWM [facility] Last Admin: 01/18/23 08:04 Dose: 1,000 mg Documented By: ABHAY Methadone HCl (Methadone Hcl 20 Mg/2 Ml Oral.Conc) 65 mg PO DAILY [facility] Last Admin: 01/18/23 08:04 Dose: 65 mg Documented By: ABHAY Metoprolol Succinate (Metoprolol Succinate Er 50 Mg Tab.Er.24h) 50 mg PO DAILY [facility]; Protocol Last Admin: 01/18/23 08:04 Dose: 50 mg Documented By: ABHAY Naloxone HCl (Naloxone Hcl Nasal 4 Mg [place]) 4 mg NOSTRILALT Q3M PRN PRN Reason: Opioid Overdose Nifedipine (Nifedipine Er 30 Mg Tab.Er.24) 30 mg PO DAILY [facility] Last Admin: 01/18/23 08:04 Dose: 30 mg Documented By: ABHAY Omeprazole (Omeprazole 20 Mg Capsule.Dr) 20 mg PO DAILY@0630 [facility] Last Admin: 01/18/23 05:26 Dose: 20 mg Documented By: FANGORALEsther Oxycodone HCl (Oxycodone Hcl Immed Release 5 Mg Tablet) 5 mg PO Q6H PRN PRN Reason: Pain, Severe (Pain Scale 7-10) Last Admin: 01/17/23 19:51 Dose: 5 mg Documented By: NORY Pregabalin (Pregabalin 50 Mg Capsule) 50 mg PO TID [facility] Last Admin: 01/18/23 08:04 Dose: 50 mg Documented By: ABHAY Sodium Biphosphate/Sodium Phosphate (Sodium Phosphate,[place]-Dibasic 133 Ml Enema) 133 ml [place] ONCE PRN PRN Reason: Consult order Last Admin: 01/14/23 11:12 Dose: 133 ml Documented By: MARLENI Sodium Chloride (0.9 % Sodium Chloride Flush 3 Ml Syringe) 3 ml IVFLUSH QSHIFT [facility] Last Admin: 01/18/23 08:05 Dose: 3 ml Documented By: ABHAY Tamsulosin HCl (Tamsulosin Hcl 0.4 Mg Capsule) 0.4 mg PO BEDTIME [facility] Last Admin: 01/17/23 20:06 Dose: 0.4 mg Documented By: NORY Labs 01/17/23 05:52 01/17/23 05:52 Labs: Laboratory Results - last 24 hr 01/17/23 01/17/23 01/17/23 16:10 16:54 17:11 POC Glucose 72 69 83 01/17/23 01/18/23 01/18/23 20:55 07:41 11:11 POC Glucose 120 H 112 123 H Assessment and Plan (1) Melena: Status: Acute (2) Anemia: Status: Acute (3) Painless rectal bleeding: Status: Acute Plan 56-year-old male with history of chronic normocytic anemia, insulin-dependent type 2 diabetes, chronic kidney disease stage III, history of opiate use disorder on methadone patient denies recent use, peripheral artery disease with recent admission s/p L TMA, Chronic anemia here with Melana and anemia.. He underwent colonoscopy and noted to have? a mass ans is awaiting surgery once pathology report is available, he has been transfused one unit of RBC, he is unreliable and unlikely to return for surgery if discharged Melana and acute on chronic? anemia due to blood loss s/p 1 unit of RBC EGD on 01/13 unremarkable, Colonoscopy 01/14 noted colon mass, Dr Santana . is planing colon surgery later this week once pathology report is available, he will need oncology follow up as well but not necessary as inpatient, H/H remains stable, patient is saying if he goes home he won't come back for surgery Insulin dependence type 2 diabetes with hypOglycemia -POC glucose -diabetic diet -Insulin HypERkalemia of 5.5, got 10 of lokelco on 01/12 and now K is 4.8 opiate use disorder -continue methadone PAD--hold ASA and Plavix DVT prophylaxis compresion device d/t anemia, and low H?H Full code need for inaptient: awaiting for surgery Time Spent With Patient Time: Total time managing care of this patient today ____ minutes. Quality Stroke Does the patient have a stroke diagnosis?: No VTE Prior VTE?: No VTE Risk Level:: Medical - moderate - high VTE Device Contraindication: Treatment Not Indicated VTE Drug Contraindication: Treatment Not Indicated
[2023-01-18 15:25] VITALS: BP 105/56; PULSE 66; RESP 18; TEMP 36.6; O2SAT 97
--- NOTE | 2023-01-18 15:42 | PM.EVENT ---
Event Note Date of Service: 01/18/23 Event Note: he denies complaints good oral intake no abd pain abd soft and benign path report just came back - adenocarcinoma pt scheduled for HALS right colon resection this he understands technique of planned procedure I explained the risks including but not limited to bleeding, infections, injury to other organs, staple line leak poss. converstion to open/laparotomy he understands perioperative risks are higher for him in view of obesity, DM PAD Time Spent With Patient Time: Total time managing care of this patient today ____ minutes.
[2023-01-18 15:57] LABS: Glucose, Whole Blood 180 mg/dL (60-115)
[2023-01-18] MEDS: Insulin Lispro 100 UNIT/ML 3 ML VIAL SUBCUT (16:59)
[2023-01-18 19:07] VITALS: BP 101/55; PULSE 74; RESP 18; TEMP 36.5; O2SAT 98
[2023-01-18] MEDS: Tamsulosin HCL 0.4 MG CAPSULE PO (20:45)
[2023-01-18] MEDS: Atorvastatin Calcium 10 MG TABLET PO (20:45)
[2023-01-18 20:50] LABS: Glucose, Whole Blood 145 mg/dL (60-115)
[2023-01-19 00:02] VITALS: BP 106/67; PULSE 73; RESP 18; TEMP 36.3; O2SAT 99
[2023-01-19] MEDS: Omeprazole 20 MG CAPSULE.DR PO (06:10)
[2023-01-19 07:19] LABS: Glucose, Whole Blood 106 mg/dL (60-115)
[2023-01-19 08:00] VITALS: BP 120/73; PULSE 74; RESP 18; TEMP 36.8; O2SAT 96
--- NOTE | 2023-01-19 08:05 | PM.PNGS ---
Subjective Subjective Date of Service: 01/19/23 Interval history: has no new complaints good oral intake good GI function Physical Exam Vital Signs: Vital Signs: Last Vital Signs Temp 97.4 F 01/19/23 00:02 Pulse 73 01/19/23 00:02 Resp 18 01/19/23 00:02 BP 106/67 01/19/23 00:02 Pulse Ox 99 01/19/23 00:02 O2 Del Method Room Air 01/19/23 00:02 BMI result Body Mass Index 29.0 Const: Other: appears overweight General: comfortable and no acute distress Resp: Effort & Inspection: normal respiratory effort Cardio: Rate: regular rate GI: Palpation (GI): Soft to palpation, not firm and nontender Objective Data Active Medications Atorvastatin Calcium (Atorvastatin Calcium 10 Mg Tablet) 10 mg PO BEDTIME [facility] Last Admin: 01/18/23 20:45 Dose: 10 mg Documented By: BOBBY Escitalopram Oxalate (Escitalopram Oxalate 10 Mg Tablet) 10 mg PO DAILY [facility] Last Admin: 01/18/23 08:04 Dose: 10 mg Documented By: ABHAY Ferrous Sulfate (Ferrous Sulfate 324 Mg Tablet.Dr) 324 mg PO BID [facility] Last Admin: 01/18/23 20:45 Dose: 324 mg Documented By: BOBBY Glucose (Glucose Gel 15 Gm Gel..Gram.) 15 gm PO Q15M PRN; Protocol PRN Reason: per Hypoglycemia Standing Ord. Hydroxyzine HCl (Hydroxyzine Hcl 25 Mg Tablet) 25 mg PO TID PRN PRN Reason: itch Dextrose (D10) 250 mls @ 750 mls/hr IV Q15M PRN; Protocol PRN Reason: per Hypoglycemia Standing Ord. Insulin Glargine (Insulin Glargine,Hum.Rec.Anlog 100 Unit/Ml 10 Ml Vial) 9 unit SUBCUT DAILY [facility] Last Admin: 01/18/23 08:04 Dose: 9 unit Documented By: ABHAY Insulin Human Lispro (Insulin Lispro 100 Unit/Ml 3 Ml Vial) 0 unit SUBCUT QIDACHS [facility]; Protocol Last Admin: 01/19/23 07:42 Dose: Not Given Documented By: BRAD Non-Admin Reason: No Insulin Coverage Lisinopril (Lisinopril 20 Mg Tablet) 20 mg PO DAILY [facility]; Protocol Last Admin: 01/18/23 08:04 Dose: 20 mg Documented By: ABHAY Metformin HCl (Metformin Hcl 1,000 Mg Tablet) 1,000 mg PO BIDWM [facility] Last Admin: 01/18/23 16:59 Dose: 1,000 mg Documented By: ABHAY Methadone HCl (Methadone Hcl 20 Mg/2 Ml Oral.Conc) 65 mg PO DAILY [facility] Last Admin: 01/18/23 08:04 Dose: 65 mg Documented By: ABHAY Metoprolol Succinate (Metoprolol Succinate Er 50 Mg Tab.Er.24h) 50 mg PO DAILY [facility]; Protocol Last Admin: 01/18/23 08:04 Dose: 50 mg Documented By: ABHAY Naloxone HCl (Naloxone Hcl Nasal 4 Mg [place]) 4 mg NOSTRILALT Q3M PRN PRN Reason: Opioid Overdose Nifedipine (Nifedipine Er 30 Mg Tab.Er.24) 30 mg PO DAILY [facility] Last Admin: 01/18/23 08:04 Dose: 30 mg Documented By: ABHAY Omeprazole (Omeprazole 20 Mg Capsule.Dr) 20 mg PO DAILY@0630 [facility] Last Admin: 01/19/23 06:10 Dose: 20 mg Documented By: BOBBY Oxycodone HCl (Oxycodone Hcl Immed Release 5 Mg Tablet) 5 mg PO Q6H PRN PRN Reason: Pain, Severe (Pain Scale 7-10) Last Admin: 01/17/23 19:51 Dose: 5 mg Documented By: FANGORALEsther Pregabalin (Pregabalin 50 Mg Capsule) 50 mg PO TID [facility] Last Admin: 01/18/23 20:45 Dose: 50 mg Documented By: BOBBY Sodium Biphosphate/Sodium Phosphate (Sodium Phosphate,[place]-Dibasic 133 Ml Enema) 133 ml [place] ONCE PRN PRN Reason: Consult order Last Admin: 01/14/23 11:12 Dose: 133 ml Documented By: MARLENI Sodium Chloride (0.9 % Sodium Chloride Flush 3 Ml Syringe) [facility] Last Admin: 01/18/23 20:45 Dose: 3 ml Documented By: BOBBY Tamsulosin HCl (Tamsulosin Hcl 0.4 Mg Capsule) 0.4 mg PO BEDTIME [facility] Last Admin: 01/18/23 20:45 Dose: 0.4 mg Documented By: BOBBY Labs 01/17/23 05:52 01/17/23 05:52 Labs: Laboratory Results - last 24 hr 01/18/23 01/18/23 01/18/23 11:11 15:47 20:44 POC Glucose 123 H 180 H 145 H 01/19/23 07:08 POC Glucose 106 Procedures Date of Service Date of Service: 01/19/23 Progress Note: A&P Assessment and plan (1) Colonic mass: Status: Acute Assessment and Plan: 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 Quality Stroke Does the patient have a stroke diagnosis?: No VTE Prior VTE?: No VTE Risk Level:: Medical - moderate - high VTE Device Contraindication: Treatment Not Indicated VTE Drug Contraindication: Treatment Not Indicated
[2023-01-19] MEDS: Metoprolol Succinate ER 50 MG TAB.ER.24H PO (09:05)
[2023-01-19] MEDS: Insulin Glargine,Hum.rec.anlog 100 UNIT/ML 10 ML VIAL 9 UNIT SUBCUT (09:05)
[2023-01-19] MEDS: oxyCODONE HCl Immed Release 5 MG TABLET PO ×3 (09:05→21:46)
[2023-01-19] MEDS: Ferrous Sulfate 324 MG TABLET.DR PO ×2 (09:05→21:47)
[2023-01-19] MEDS: Escitalopram Oxalate 10 MG TABLET PO (09:06)
[2023-01-19] MEDS: methADONE HCl 20 MG/2 ML ORAL.CONC 65 MG PO (09:06)
[2023-01-19] MEDS: 0.9 % Sodium Chloride Flush 3 ML SYRINGE IVFLUSH ×3 (09:06→21:47)
[2023-01-19] MEDS: Pregabalin 50 MG CAPSULE PO ×3 (09:06→21:47)
[2023-01-19 11:18] LABS: Glucose, Whole Blood 137 mg/dL (60-115)
--- NOTE | 2023-01-19 13:25 | HO.PM.IMPN ---
Subjective Subjective Date of Service: 01/19/23 Interval History: colon mass Review of Systems denies new c/o-any chest pain or sob or abd pain encouraged for po intake. Physical Exam Vital Signs: Vital Signs: Last Vital Signs Temp 98.3 F 01/19/23 08:00 Pulse 74 01/19/23 08:00 Resp 18 01/19/23 08:00 BP 120/73 01/19/23 08:00 Pulse Ox 96 01/19/23 08:00 O2 Del Method Room Air 01/19/23 08:00 BMI result Body Mass Index 29.0 General: AO X 3, no acute distress Resp:? CTA bilateral CVS: S1,S2,RRR GI: +BS, NT, no distention Skin: No rash Neuro:? motor grossly intact Psych: appropriate affect Objective Data Active Medications Atorvastatin Calcium (Atorvastatin Calcium 10 Mg Tablet) 10 mg PO BEDTIME [facility] Last Admin: 01/18/23 20:45 Dose: 10 mg Documented By: BOBBY Escitalopram Oxalate (Escitalopram Oxalate 10 Mg Tablet) 10 mg PO DAILY [facility] Last Admin: 01/19/23 09:06 Dose: 10 mg Documented By: BRAD Ferrous Sulfate (Ferrous Sulfate 324 Mg Tablet.) 324 mg PO BID [facility] Last Admin: 01/19/23 09:05 Dose: 324 mg Documented By: BRAD Glucose (Glucose Gel 15 Gm Gel..Gram.) 15 gm PO Q15M PRN; Protocol PRN Reason: per Hypoglycemia Standing Ord. Hydroxyzine HCl (Hydroxyzine Hcl 25 Mg Tablet) 25 mg PO TID PRN PRN Reason: itch Dextrose (D10) 250 mls @ 750 mls/hr IV Q15M PRN; Protocol PRN Reason: per Hypoglycemia Standing Ord. Insulin Glargine (Insulin Glargine,Hum.Rec.Anlog 100 Unit/Ml 10 Ml Vial) 9 unit SUBCUT DAILY [facility] Last Admin: 01/19/23 09:05 Dose: 9 unit Documented By: BRAD Insulin Human Lispro (Insulin Lispro 100 Unit/Ml 3 Ml Vial) 0 unit SUBCUT QIDACHS [facility]; Protocol Last Admin: 01/19/23 11:35 Dose: Not Given Documented By: BRAD Non-Admin Reason: No Insulin Coverage Lisinopril (Lisinopril 20 Mg Tablet) 20 mg PO DAILY [facility]; Protocol Last Admin: 01/18/23 08:04 Dose: 20 mg Documented By: ABHAY Metformin HCl (Metformin Hcl 1,000 Mg Tablet) 1,000 mg PO BIDWM [facility] Last Admin: 01/18/23 16:59 Dose: 1,000 mg Documented By: ABHAY Methadone HCl (Methadone Hcl 20 Mg/2 Ml Oral.Conc) 65 mg PO DAILY [facility] Last Admin: 01/19/23 09:06 Dose: 65 mg Documented By: BRAD Metoprolol Succinate (Metoprolol Succinate Er 50 Mg Tab.Er.24h) 50 mg PO DAILY [facility]; Protocol Last Admin: 01/19/23 09:05 Dose: 50 mg Documented By: BRAD Naloxone HCl (Naloxone Hcl Nasal 4 Mg [place]) 4 mg NOSTRILALT Q3M PRN PRN Reason: Opioid Overdose Nifedipine (Nifedipine Er 30 Mg Tab.Er.24) 30 mg PO DAILY [facility] Last Admin: 01/18/23 08:04 Dose: 30 mg Documented By: ABHAY Omeprazole (Omeprazole 20 Mg Capsule.Dr) 20 mg PO DAILY@0630 [facility] Last Admin: 01/19/23 06:10 Dose: 20 mg Documented By: BOBBY Oxycodone HCl (Oxycodone Hcl Immed Release 5 Mg Tablet) 5 mg PO Q6H PRN PRN Reason: Pain, Severe (Pain Scale 7-10) Last Admin: 01/19/23 09:05 Dose: 5 mg Documented By: BRAD Pregabalin (Pregabalin 50 Mg Capsule) 50 mg PO TID [facility] Last Admin: 01/19/23 09:06 Dose: 50 mg Documented By: BRAD Sodium Biphosphate/Sodium Phosphate (Sodium Phosphate,[place]-Dibasic 133 Ml Enema) 133 ml [place] ONCE PRN PRN Reason: Consult order Last Admin: 01/14/23 11:12 Dose: 133 ml Documented By: MARLENI Sodium Chloride (0.9 % Sodium Chloride Flush 3 Ml Syringe) 3 ml IVFLUSH QSHIFT [facility] Last Admin: 01/19/23 09:06 Dose: 3 ml Documented By: BRAD Tamsulosin HCl (Tamsulosin Hcl 0.4 Mg Capsule) 0.4 mg PO BEDTIME [facility] Last Admin: 01/18/23 20:45 Dose: 0.4 mg Documented By: BOBBY Labs 01/17/23 05:52 01/17/23 05:52 Labs: Laboratory Results - last 24 hr 01/18/23 01/18/23 01/19/23 15:47 20:44 07:08 POC Glucose 180 H 145 H 106 Blood Type Antibody Screen 01/19/23 01/19/23 08:36 11:11 POC Glucose 137 H Blood Type AB Positive Antibody Screen NEGATIVE Assessment and Plan (1) Melena: Status: Acute (2) Anemia: Status: Acute (3) Painless rectal bleeding: Status: Acute Plan 56-year-old male with history of chronic normocytic anemia, insulin-dependent type 2 diabetes, chronic kidney disease stage III, history of opiate use disorder on methadone patient denies recent use, peripheral artery disease with recent admission s/p L TMA, Chronic anemia here with Melana and anemia.. He underwent colonoscopy and noted to have? a mass ans is awaiting surgery once pathology report is available, he has been transfused one unit of RBC, he is unreliable and unlikely to return for surgery if discharged Melana and acute on chronic? anemia due to blood loss s/p 1 unit of RBC. EGD on 01/13 unremarkable, Colonoscopy 01/14 noted colon mass-biopsy shows adenocarcinoma, surgery Dr Santana follow up. npo past midnight for possible surgery in am. Insulin dependence type 2 diabetes with hypOglycemia -POC glucose -diabetic diet -Insulin HypERkalemia of 5.5, got 10 of lokelma on 01/12 and afterwards K is 4.8 opiate use disorder-continue methadone. PAD--hold ASA and Plavix. DVT prophylaxis compresion device d/t anemia, and low H?H Full code need for inaptient: awaiting for surgery Time Spent With Patient Time: Total time managing care of this patient today ____ minutes. Quality Stroke Does the patient have a stroke diagnosis?: No VTE Prior VTE?: No VTE Risk Level:: Medical - moderate - high VTE Device Contraindication: Treatment Not Indicated VTE Drug Contraindication: Treatment Not Indicated
[2023-01-19 15:10] VITALS: BP 124/72; PULSE 82; RESP 18; TEMP 36.2; O2SAT 98
[2023-01-19 16:04] LABS: Glucose, Whole Blood 150 mg/dL (60-115)
[2023-01-19 19:55] VITALS: BP 116/63; PULSE 77; RESP 18; TEMP 36.1; O2SAT 98
[2023-01-19 20:38] LABS: Glucose, Whole Blood 152 mg/dL (60-115)
[2023-01-19] MEDS: Tamsulosin HCL 0.4 MG CAPSULE PO (21:46)
[2023-01-19] MEDS: hydrOXYzine HCL 25 MG TABLET PO (21:46)
--- NOTE | 2023-01-19 23:57 | PC.NURSE ---
pt refused restart of new iv has no date . pt states is working fine we not going to change it.
[2023-01-20] VITALS (18 sets, daily range): BP systolic 120–183; BP diastolic 68–89; PULSE 61–85; RESP 14–18; TEMP 36.2–36.6; O2SAT 97–98
[2023-01-20] MEDS: Omeprazole 20 MG CAPSULE.DR PO (06:26)
[2023-01-20 07:37] LABS: Glucose, Whole Blood 135 mg/dL (60-115)
[2023-01-20] MEDS: methADONE HCl 20 MG/2 ML ORAL.CONC 65 MG PO (08:14)
[2023-01-20] MEDS: Pregabalin 50 MG CAPSULE PO (08:15)
[2023-01-20] MEDS: 0.9 % Sodium Chloride Flush 3 ML SYRINGE IVFLUSH ×2 (08:15→15:47)
[2023-01-20] MEDS: Metoprolol Succinate ER 50 MG TAB.ER.24H PO (08:15)
[2023-01-20] MEDS: Ferrous Sulfate 324 MG TABLET.DR PO (08:15)
[2023-01-20] MEDS: Escitalopram Oxalate 10 MG TABLET PO (08:15)
--- NOTE | 2023-01-20 10:19 | PC.NURSE ---
LEFT AC IV LEAKING. TIGHTENED AND CLEANED. NOW PATENT AND NOT LEAKING. ATTEMPTED 3 IV INSERTION WITH NO INSERTION FOR ANEW IV.
--- NOTE | 2023-01-20 10:40 | PC.NURSE ---
MD COLLINS ENTERED A NEW ORDER FOR BMP. PHLEBOTOMY BY BEDSIDE ATTEMPTING BLOOD COLLECTION
--- NOTE | 2023-01-20 11:01 | HO.ANESPROP2 ---
HPI - Anesthesia Eval Consult details Narrative: for right colectomy PMFSH Active Problems Active Problems: All Active Problems (Updated 01/20/23 @ 09:41 by Cathy Santos RN) Osteomyelitis (Acute) Acute kidney injury (Acute) Anemia (Acute) Normocytic anemia (Acute) Hyperglycemia due to diabetes mellitus (Acute) Status post transmetatarsal amputation of left foot (Acute) Urinary retention (Acute) Acute kidney injury superimposed on CKD (Acute) Diabetic wet gangrene of the foot (Acute) S/P transmetatarsal amputation of foot (Acute) Anemia (Acute) Painless rectal bleeding (Acute) Melena (Acute) Colon cancer (Acute) Colonic mass (Acute) PAD (peripheral artery disease) (Acute) Diabetic infection of left foot (Acute) Opioid use disorder (Acute) Past Medical History Medical History (Updated 01/20/23 @ 09:41 by Cathy Santos RN) Anemia Chronic anemia CKD (chronic kidney disease) Colon cancer Colonic mass Diabetes Diabetes type 2, controlled Diabetic infection of left foot Fever of unknown origin History of prostate cancer Migraine Opioid use disorder Osteomyelitis PAD (peripheral artery disease) Sleep apnea Family History Family History Mother No pertinent family history Family history of problems with anesthesia: No Surgical History Surgical History S/P transmetatarsal amputation of foot History of Problems with Anesthesia: No Social History Social History Household Members: Spouse Housing: Apartment Do you presently have visiting nurse or other home services: Yes Alcohol intake: never Patient Tobacco Use Status: Never used Tobacco Use of substances other than those prescribed or required for medical reasons: No Substance Use Type: Opiates Currently Displaying Signs/Symptoms of Drug Intoxication Withdrawal: No Have you been hit, kicked, punched, or otherwise hurt by someone within the past year? If so, by whom?: No Do you feel safe in your current relationship?: Yes Is there a partner from a previous relationship who is making you feel unsafe now?: No Are you made to feel afraid or neglected: No Church Healthcare Practices: sikhism Are you DNR?: No Advance Directives: Yes Advance Directives Information Provided: Yes Advance Directives on File: No Advance Directives Date on File: 01/11/23 Do you have thoughts of harming others: None Do you have a plan to hurt others: No Plan Recently lost weight without trying: No Nutrition Risks: No Nutritional Risk service: No Current occupational status: disabled Meds Allergies Allergy/AdvReac Type Severity Reaction Status Date / Time No Known Allergies Allergy Verified 12/28/22 13:52 [No Known Allergies*] Active Medications: Current Medications Atorvastatin Calcium (Atorvastatin Calcium 10 Mg Tablet) 10 mg PO BEDTIME [facility] Last Admin: 01/18/23 20:45 Dose: 10 mg Escitalopram Oxalate (Escitalopram Oxalate 10 Mg Tablet) 10 mg PO DAILY [facility] Last Admin: 01/20/23 08:15 Dose: 10 mg Ferrous Sulfate (Ferrous Sulfate 324 Mg Tablet.Dr) 324 mg PO BID [facility] Last Admin: 01/20/23 08:15 Dose: 324 mg Glucose (Glucose Gel 15 Gm Gel..Gram.) 15 gm PO Q15M PRN; Protocol PRN Reason: per Hypoglycemia Standing Ord. Hydroxyzine HCl (Hydroxyzine Hcl 25 Mg Tablet) 25 mg PO TID PRN PRN Reason: itch Last Admin: 01/19/23 21:46 Dose: 25 mg Dextrose (D10) 250 mls @ 750 mls/hr IV Q15M PRN; Protocol PRN Reason: per Hypoglycemia Standing Ord. Lactated Ringer's (Lr) 1,000 mls @ 100 mls/hr IVCONT .Q10H [facility] Last Admin: 01/20/23 09:34 Dose: Not Given Insulin Glargine (Insulin Glargine,Hum.Rec.Anlog 100 Unit/Ml 10 Ml Vial) 9 unit SUBCUT DAILY [facility] Last Admin: 01/20/23 08:15 Dose: Not Given Insulin Human Lispro (Insulin Lispro 100 Unit/Ml 3 Ml Vial) 0 unit SUBCUT QIDACHS [facility]; Protocol Last Admin: 01/20/23 07:59 Dose: Not Given Lisinopril (Lisinopril 20 Mg Tablet) 20 mg PO DAILY [facility]; Protocol Last Admin: 01/18/23 08:04 Dose: 20 mg Metformin HCl (Metformin Hcl 1,000 Mg Tablet) 1,000 mg PO BIDWM [facility] Last Admin: 01/18/23 16:59 Dose: 1,000 mg Methadone HCl (Methadone Hcl 20 Mg/2 Ml Oral.Conc) 65 mg PO DAILY [facility] Last Admin: 01/20/23 08:14 Dose: 65 mg Metoprolol Succinate (Metoprolol Succinate Er 50 Mg Tab.Er.24h) 50 mg PO DAILY [facility]; Protocol Last Admin: 01/20/23 08:15 Dose: 50 mg Naloxone HCl (Naloxone Hcl Nasal 4 Mg [place]) 4 mg NOSTRILALT Q3M PRN PRN Reason: Opioid Overdose Nifedipine (Nifedipine Er 30 Mg Tab.Er.24) 30 mg PO DAILY [facility] Last Admin: 01/18/23 08:04 Dose: 30 mg Omeprazole (Omeprazole 20 Mg Capsule.Dr) 20 mg PO DAILY@0630 [facility] Last Admin: 01/20/23 06:26 Dose: 20 mg Oxycodone HCl (Oxycodone Hcl Immed Release 5 Mg Tablet) 5 mg PO Q6H PRN PRN Reason: Pain, Severe (Pain Scale 7-10) Last Admin: 01/19/23 21:46 Dose: 5 mg Pregabalin (Pregabalin 50 Mg Capsule) 50 mg PO TID [facility] Last Admin: 01/20/23 08:15 Dose: 50 mg Sodium Biphosphate/Sodium Phosphate (Sodium Phosphate,Mckenzie-Dibasic 133 Ml Enema) 133 ml TX ONCE PRN PRN Reason: Consult order Last Admin: 01/14/23 11:12 Dose: 133 ml Sodium Chloride (0.9 % Sodium Chloride Flush 3 Ml Syringe) [facility] Last Admin: 01/20/23 08:15 Dose: 3 ml Tamsulosin HCl (Tamsulosin Hcl 0.4 Mg Capsule) 0.4 mg PO BEDTIME [facility] Last Admin: 01/19/23 21:46 Dose: 0.4 mg Home Medications Medication Instructions Recorded Confirmed Last Taken Type clopidogrel 75 mg tablet 1 tab PO DAILY 06/17/22 01/11/23 Unknown History ferrous sulfate 324 mg (65 mg 1 tab PO BID 06/17/22 01/11/23 Unknown History iron) tablet,delayed release insulin aspart U-100 100 unit/mL 1 sliding scale dose subcut DAILY 06/17/22 01/11/23 Unknown History (3 mL) subcutaneous pen (Novolog FlexPen U-100 Insulin aspart) lisinopril 20 mg tablet 20 mg PO DAILY 06/17/22 01/11/23 Unknown History methadone 10 mg/mL oral concentrate 65 mg PO DAILY 06/17/22 01/12/23 06/16/22 History tamsulosin 0.4 mg capsule 1 cap PO BEDTIME 06/17/22 01/11/23 Unknown History aspirin 81 mg tablet,delayed 81 mg PO DAILY 01/11/23 01/11/23 Unknown History release atorvastatin 10 mg tablet 10 mg PO BEDTIME 01/11/23 01/11/23 Unknown History citalopram 20 mg tablet 20 mg PO DAILY 01/11/23 01/11/23 Unknown History hydroxyzine pamoate 25 mg capsule 25 mg PO TID PRN itch 01/11/23 01/11/23 Unknown History insulin glargine 100 unit/mL 9 unit subcut DAILY 01/11/23 01/11/23 Unknown History subcutaneous solution (Lantus U-100 Insulin) metformin 1,000 mg tablet 1,000 mg PO BID 01/11/23 01/11/23 Unknown History metoprolol succinate 50 mg 50 mg PO DAILY 01/11/23 01/11/23 Unknown History tablet,extended release 24 hr naloxone 4 mg/actuation nasal 4 mg intranasal Q3M PRN Opioid 01/11/23 01/11/23 Unknown History spray (Narcan) Overdose nifedipine 30 mg tablet,extended 30 mg PO DAILY 01/11/23 01/11/23 Unknown History release omeprazole 20 mg capsule,delayed 20 mg PO DAILY@0630 01/11/23 01/11/23 Unknown History release pregabalin 50 mg capsule 50 mg PO TID 01/11/23 01/11/23 Unknown History Exam Exam Date and Time: January 20, 2023 1101 Height,Weight and Vital Signs: Height 5 ft 6 in Weight 81.647 kg Last Vital Signs Temp 97.6 F 01/20/23 09:50 Pulse 69 01/20/23 09:50 Resp 16 01/20/23 09:50 BP 120/80 01/20/23 09:50 Pulse Ox 97 01/20/23 09:50 O2 Del Method Room Air 01/20/23 09:50 Pertinent Lab Results Pertinent Lab Results: Laboratory Tests 01/11/23 01/11/23 01/11/23 14:10 14:10 14:10 WBC 6.3 RBC 2.79 L Hgb 7.1 L Hct 23.1 L MCV 82.8 MCH 25.4 L MCHC 30.7 L RDW 14.4 Plt Count 190 MPV 10.9 Immature Gran % (Auto) 0.2 Neut % (Auto) 62.8 Lymph % (Auto) 25.5 Mckenzie % (Auto) 8.5 Eos % (Auto) 2.5 Baso % (Auto) 0.5 Lymph # (Auto) 1.6 Mckenzie # (Auto) 0.5 Eos # (Auto) 0.2 Baso # (Auto) 0.0 Abs Immat Gran (auto) 0.01 Absolute Neuts (auto) 4.0 Absolute Nucleated RBC 0.000 Nucleated RBC % (auto) 0.0 PT INR APTT 30.1 Sodium 139 Potassium 5.5 H Chloride 108 Carbon Dioxide 24 Anion Gap 13 BUN 35 H Creatinine 1.43 H Estim Creat Clear Calc 57.1 Estimated GFR 51 POC Glucose Random Glucose 120 H Calcium 9.1 Total Bilirubin 0.2 Direct Bilirubin < 0.2 AST 14 ALT 27 Alkaline Phosphatase 70 Total Protein 7.1 Albumin 3.7 Lipase 8 Blood Type Antibody Screen Crossmatch 01/11/23 01/11/23 01/11/23 14:10 14:38 18:21 WBC RBC Hgb Hct MCV MCH MCHC RDW Plt Count MPV Immature Gran % (Auto) Neut % (Auto) Lymph % (Auto) Mckenzie % (Auto) Eos % (Auto) Baso % (Auto) Lymph # (Auto) Mckenzie # (Auto) Eos # (Auto) Baso # (Auto) Abs Immat Gran (auto) Absolute Neuts (auto) Absolute Nucleated RBC Nucleated RBC % (auto) PT 11.9 INR 1.0 APTT Sodium Potassium Chloride Carbon Dioxide Anion Gap BUN Creatinine Estim Creat Clear Calc Estimated GFR POC Glucose 79 Random Glucose Calcium Total Bilirubin Direct Bilirubin AST ALT Alkaline Phosphatase Total Protein Albumin Lipase Blood Type AB Positive Antibody Screen NEGATIVE Crossmatch See Detail 01/11/23 01/12/23 01/12/23 21:17 07:14 11:07 WBC RBC Hgb Hct MCV MCH MCHC RDW Plt Count MPV Immature Gran % (Auto) Neut % (Auto) Lymph % (Auto) Mckenzie % (Auto) Eos % (Auto) Baso % (Auto) Lymph # (Auto) Mckenzie # (Auto) Eos # (Auto) Baso # (Auto) Abs Immat Gran (auto) Absolute Neuts (auto) Absolute Nucleated RBC Nucleated RBC % (auto) PT INR APTT Sodium Potassium Chloride Carbon Dioxide Anion Gap BUN Creatinine Estim Creat Clear Calc Estimated GFR POC Glucose 98 83 91 Random Glucose Calcium Total Bilirubin Direct Bilirubin AST ALT Alkaline Phosphatase Total Protein Albumin Lipase Blood Type Antibody Screen Crossmatch 01/12/23 01/12/23 01/12/23 13:21 15:57 20:08 WBC RBC Hgb Hct MCV MCH MCHC RDW Plt Count MPV Immature Gran % (Auto) Neut % (Auto) Lymph % (Auto) Mckenzie % (Auto) Eos % (Auto) Baso % (Auto) Lymph # (Auto) Mckenzie # (Auto) Eos # (Auto) Baso # (Auto) Abs Immat Gran (auto) Absolute Neuts (auto) Absolute Nucleated RBC Nucleated RBC % (auto) PT INR APTT Sodium 141 Potassium 5.8 H Chloride 110 H Carbon Dioxide 26 Anion Gap 11 L BUN 28 H Creatinine 1.37 Estim Creat Clear Calc 59.6 Estimated GFR 54 POC Glucose 74 131 H Random Glucose 89 Calcium 9.0 Total Bilirubin Direct Bilirubin AST ALT Alkaline Phosphatase Total Protein Albumin Lipase Blood Type Antibody Screen Crossmatch 01/13/23 01/13/23 01/13/23 05:54 05:54 07:06 WBC 5.6 RBC 2.77 L Hgb 7.1 L Hct 22.9 L MCV 82.7 MCH 25.6 L MCHC 31.0 RDW 14.2 Plt Count 176 MPV 11.5 Immature Gran % (Auto) Neut % (Auto) Lymph % (Auto) Mckenzie % (Auto) Eos % (Auto) Baso % (Auto) Lymph # (Auto) Mckenzie # (Auto) Eos # (Auto) Baso # (Auto) Abs Immat Gran (auto) Absolute Neuts (auto) Absolute Nucleated RBC 0.000 Nucleated RBC % (auto) 0.0 PT INR APTT Sodium 139 Potassium 4.6 D Chloride 107 Carbon Dioxide 27 Anion Gap 10 L BUN 28 H Creatinine 1.37 Estim Creat Clear Calc 59.6 Estimated GFR 54 POC Glucose 92 Random Glucose 88 Calcium 8.8 Total Bilirubin Direct Bilirubin AST ALT Alkaline Phosphatase Total Protein Albumin Lipase Blood Type Antibody Screen Crossmatch 01/13/23 01/13/23 01/13/23 11:05 16:24 20:38 WBC RBC Hgb Hct MCV MCH MCHC RDW Plt Count MPV Immature Gran % (Auto) Neut % (Auto) Lymph % (Auto) Mckenzie % (Auto) Eos % (Auto) Baso % (Auto) Lymph # (Auto) Mck[place] # (Auto) Eos # (Auto) Baso # (Auto) Abs Immat Gran (auto) Absolute Neuts (auto) Absolute Nucleated RBC Nucleated RBC % (auto) PT INR APTT Sodium Potassium Chloride Carbon Dioxide Anion Gap BUN Creatinine Estim Creat Clear Calc Estimated GFR POC Glucose 92 82 158 H Random Glucose Calcium Total Bilirubin Direct Bilirubin AST ALT Alkaline Phosphatase Total Protein Albumin Lipase Blood Type Antibody Screen Crossmatch 01/14/23 01/14/23 01/14/23 05:31 07:19 12:03 WBC 5.9 RBC 3.22 L Hgb 8.3 L Hct 26.2 L MCV 81.4 MCH 25.8 L MCHC 31.7 RDW 13.8 Plt Count 173 MPV 10.8 Immature Gran % (Auto) Neut % (Auto) Lymph % (Auto) Mckenzie % (Auto) Eos % (Auto) Baso % (Auto) Lymph # (Auto) Mck[place] # (Auto) Eos # (Auto) Baso # (Auto) Abs Immat Gran (auto) Absolute Neuts (auto) Absolute Nucleated RBC 0.000 Nucleated RBC % (auto) 0.0 PT INR APTT Sodium Potassium Chloride Carbon Dioxide Anion Gap BUN Creatinine Estim Creat Clear Calc Estimated GFR POC Glucose 92 87 Random Glucose Calcium Total Bilirubin Direct Bilirubin AST ALT Alkaline Phosphatase Total Protein Albumin Lipase Blood Type Antibody Screen Crossmatch 01/14/23 01/14/23 01/14/23 14:05 16:17 20:03 WBC RBC Hgb Hct MCV MCH MCHC RDW Plt Count MPV Immature Gran % (Auto) Neut % (Auto) Lymph % (Auto) Mck[place] % (Auto) Eos % (Auto) Baso % (Auto) Lymph # (Auto) Mck[place] # (Auto) Eos # (Auto) Baso # (Auto) Abs Immat Gran (auto) Absolute Neuts (auto) Absolute Nucleated RBC Nucleated RBC % (auto) PT INR APTT Sodium Potassium Chloride Carbon Dioxide Anion Gap BUN Creatinine Estim Creat Clear Calc Estimated GFR POC Glucose 71 161 H 186 H Random Glucose Calcium Total Bilirubin Direct Bilirubin AST ALT Alkaline Phosphatase Total Protein Albumin Lipase Blood Type Antibody Screen Crossmatch 01/15/23 01/15/23 01/15/23 07:35 07:54 08:24 WBC 6.9 RBC 3.52 L Hgb 9.1 L Hct 28.6 L MCV 81.3 MCH 25.9 L MCHC 31.8 RDW 14.0 Plt Count 202 MPV 10.5 Immature Gran % (Auto) Neut % (Auto) Lymph % (Auto) Mck[place] % (Auto) Eos % (Auto) Baso % (Auto) Lymph # (Auto) Mck[place] # (Auto) Eos # (Auto) Baso # (Auto) Abs Immat Gran (auto) Absolute Neuts (auto) Absolute Nucleated RBC 0.000 Nucleated RBC % (auto) 0.0 PT INR APTT Sodium Potassium Chloride Carbon Dioxide Anion Gap BUN Creatinine Estim Creat Clear Calc Estimated GFR POC Glucose 122 H 133 H Random Glucose Calcium Total Bilirubin Direct Bilirubin AST ALT Alkaline Phosphatase Total Protein Albumin Lipase Blood Type Antibody Screen Crossmatch 01/15/23 01/15/23 01/15/23 11:37 16:38 17:16 WBC RBC Hgb Hct MCV MCH MCHC RDW Plt Count MPV Immature Gran % (Auto) Neut % (Auto) Lymph % (Auto) Mckenzie % (Auto) Eos % (Auto) Baso % (Auto) Lymph # (Auto) Mckenzie # (Auto) Eos # (Auto) Baso # (Auto) Abs Immat Gran (auto) Absolute Neuts (auto) Absolute Nucleated RBC Nucleated RBC % (auto) PT INR APTT Sodium Potassium Chloride Carbon Dioxide Anion Gap BUN Creatinine Estim Creat Clear Calc Estimated GFR POC Glucose 156 H 68 77 Random Glucose Calcium Total Bilirubin Direct Bilirubin AST ALT Alkaline Phosphatase Total Protein Albumin Lipase Blood Type Antibody Screen Crossmatch 01/15/23 01/16/23 01/16/23 20:19 07:24 11:33 WBC RBC Hgb Hct MCV MCH MCHC RDW Plt Count MPV Immature Gran % (Auto) Neut % (Auto) Lymph % (Auto) Mckenzie % (Auto) Eos % (Auto) Baso % (Auto) Lymph # (Auto) Mckenzie # (Auto) Eos # (Auto) Baso # (Auto) Abs Immat Gran (auto) Absolute Neuts (auto) Absolute Nucleated RBC Nucleated RBC % (auto) PT INR APTT Sodium Potassium Chloride Carbon Dioxide Anion Gap BUN Creatinine Estim Creat Clear Calc Estimated GFR POC Glucose 122 H 83 114 Random Glucose Calcium Total Bilirubin Direct Bilirubin AST ALT Alkaline Phosphatase Total Protein Albumin Lipase Blood Type Antibody Screen Crossmatch 01/16/23 01/16/23 01/17/23 16:27 20:01 05:52 WBC 7.0 RBC 3.30 L Hgb 8.4 L Hct 27.7 L MCV 83.9 MCH 25.5 L MCHC 30.3 L RDW 14.6 Plt Count 191 MPV 10.9 Immature Gran % (Auto) Neut % (Auto) Lymph % (Auto) Mckenzie % (Auto) Eos % (Auto) Baso % (Auto) Lymph # (Auto) Mck[place] # (Auto) Eos # (Auto) Baso # (Auto) Abs Immat Gran (auto) Absolute Neuts (auto) Absolute Nucleated RBC 0.000 Nucleated RBC % (auto) 0.0 PT INR APTT Sodium Potassium Chloride Carbon Dioxide Anion Gap BUN Creatinine Estim Creat Clear Calc Estimated GFR POC Glucose 117 H 149 H Random Glucose Calcium Total Bilirubin Direct Bilirubin AST ALT Alkaline Phosphatase Total Protein Albumin Lipase Blood Type Antibody Screen Crossmatch 01/17/23 01/17/23 01/17/23 05:52 07:35 11:25 WBC RBC Hgb Hct MCV MCH MCHC RDW Plt Count MPV Immature Gran % (Auto) Neut % (Auto) Lymph % (Auto) Mckenzie % (Auto) Eos % (Auto) Baso % (Auto) Lymph # (Auto) Mckenzie # (Auto) Eos # (Auto) Baso # (Auto) Abs Immat Gran (auto) Absolute Neuts (auto) Absolute Nucleated RBC Nucleated RBC % (auto) PT INR APTT Sodium 142 Potassium 4.8 Chloride 110 H Carbon Dioxide 27 Anion Gap 10 L BUN 39 H Creatinine 1.53 H Estim Creat Clear Calc 53.4 Estimated GFR 47 POC Glucose 120 H 174 H Random Glucose 96 Calcium 9.2 Total Bilirubin Direct Bilirubin AST ALT Alkaline Phosphatase Total Protein Albumin Lipase Blood Type Antibody Screen Crossmatch 01/17/23 01/17/23 01/17/23 16:10 16:54 17:11 WBC RBC Hgb Hct MCV MCH MCHC RDW Plt Count MPV Immature Gran % (Auto) Neut % (Auto) Lymph % (Auto) Mckenzie % (Auto) Eos % (Auto) Baso % (Auto) Lymph # (Auto) Mck[place] # (Auto) Eos # (Auto) Baso # (Auto) Abs Immat Gran (auto) Absolute Neuts (auto) Absolute Nucleated RBC Nucleated RBC % (auto) PT INR APTT Sodium Potassium Chloride Carbon Dioxide Anion Gap BUN Creatinine Estim Creat Clear Calc Estimated GFR POC Glucose 72 69 83 Random Glucose Calcium Total Bilirubin Direct Bilirubin AST ALT Alkaline Phosphatase Total Protein Albumin Lipase Blood Type Antibody Screen Crossmatch 01/17/23 01/18/23 01/18/23 20:55 07:41 11:11 WBC RBC Hgb Hct MCV MCH MCHC RDW Plt Count MPV Immature Gran % (Auto) Neut % (Auto) Lymph % (Auto) Mckenzie % (Auto) Eos % (Auto) Baso % (Auto) Lymph # (Auto) Mck[place] # (Auto) Eos # (Auto) Baso # (Auto) Abs Immat Gran (auto) Absolute Neuts (auto) Absolute Nucleated RBC Nucleated RBC % (auto) PT INR APTT Sodium Potassium Chloride Carbon Dioxide Anion Gap BUN Creatinine Estim Creat Clear Calc Estimated GFR POC Glucose 120 H 112 123 H Random Glucose Calcium Total Bilirubin Direct Bilirubin AST ALT Alkaline Phosphatase Total Protein Albumin Lipase Blood Type Antibody Screen Crossmatch 01/18/23 01/18/23 01/19/23 15:47 20:44 07:08 WBC RBC Hgb Hct MCV MCH MCHC RDW Plt Count MPV Immature Gran % (Auto) Neut % (Auto) Lymph % (Auto) Mckenzie % (Auto) Eos % (Auto) Baso % (Auto) Lymph # (Auto) Mckenzie # (Auto) Eos # (Auto) Baso # (Auto) Abs Immat Gran (auto) Absolute Neuts (auto) Absolute Nucleated RBC Nucleated RBC % (auto) PT INR APTT Sodium Potassium Chloride Carbon Dioxide Anion Gap BUN Creatinine Estim Creat Clear Calc Estimated GFR POC Glucose 180 H 145 H 106 Random Glucose Calcium Total Bilirubin Direct Bilirubin AST ALT Alkaline Phosphatase Total Protein Albumin Lipase Blood Type Antibody Screen Crossmatch 01/19/23 01/19/23 01/19/23 08:36 11:11 15:47 WBC RBC Hgb Hct MCV MCH MCHC RDW Plt Count MPV Immature Gran % (Auto) Neut % (Auto) Lymph % (Auto) Mckenzie % (Auto) Eos % (Auto) Baso % (Auto) Lymph # (Auto) Mckenzie # (Auto) Eos # (Auto) Baso # (Auto) Abs Immat Gran (auto) Absolute Neuts (auto) Absolute Nucleated RBC Nucleated RBC % (auto) PT INR APTT Sodium Potassium Chloride Carbon Dioxide Anion Gap BUN Creatinine Estim Creat Clear Calc Estimated GFR POC Glucose 137 H 150 H Random Glucose Calcium Total Bilirubin Direct Bilirubin AST ALT Alkaline Phosphatase Total Protein Albumin Lipase Blood Type AB Positive Antibody Screen NEGATIVE Crossmatch 01/19/23 01/20/23 20:34 07:21 WBC RBC Hgb Hct MCV MCH MCHC RDW Plt Count MPV Immature Gran % (Auto) Neut % (Auto) Lymph % (Auto) Mckenzie % (Auto) Eos % (Auto) Baso % (Auto) Lymph # (Auto) Mckenzie # (Auto) Eos # (Auto) Baso # (Auto) Abs Immat Gran (auto) Absolute Neuts (auto) Absolute Nucleated RBC Nucleated RBC % (auto) PT INR APTT Sodium Potassium Chloride Carbon Dioxide Anion Gap BUN Creatinine Estim Creat Clear Calc Estimated GFR POC Glucose 152 H 135 H Random Glucose Calcium Total Bilirubin Direct Bilirubin AST ALT Alkaline Phosphatase Total Protein Albumin Lipase Blood Type Antibody Screen Crossmatch Narrative Narrative: Needs potassium check. Airway Mallampati Class: II TM Dist: >3cm Neck ROM: Full Denture: Upper and Lower Heart: ok Lungs: ok Assessment and Plan Assessment Anesthesia Assessment: Anesthesia Plan Discussed and Chart Reviewed Final Anesthetic Review Family History of Problems with Anesthesia: No History of Problems with Anesthesia: No NPO: Yes ASA Class: IV Final Preanesthetic Review: No Changes in Pt Med Stat, Meds/Allgs Chart Reviewed, Consent Obtained/Reviewed and Anes Risks/Benef Reviewed Patient Risk: High Procedure Risk: Intermediate Anesthetic Plan Anesthetic Plan: GA and Agree w/ Assess. and Plan Disposition: Standard PACU
[2023-01-20 11:05] LABS: Anion Gap 13 (12-20); Blood Urea Nitrogen 46 mg/dL (9-16); Calcium 9.1 mg/dL (8.4-10.2); Carbon Dioxide 23 mmol/L (22-29); Chloride 109 mmol/L (96-108); Creatinine Clr Calc Pharmacy 59.2; Estimated Glomerular Filt Rate 53; Glucose Random 120 mg/dL (60-115); Potassium 5.1 mmol/L (3.3-5.1); Sodium 140 mmol/L (135-145)
[2023-01-20] MEDS: Insulin Regular, Human 100 UNIT/ML 3 ML VIAL 10 UNIT IVPUSH (11:22)
[2023-01-20 13:02] LABS: Base Excess Bedside Calculated -3 mmol/L (-3-3); Glucose, i-STAT 87 mg/dL (60-115); HCO3 Bedside Calculated 24 mmol/L (22-26); Hematocrit Bedside 24 %PCV (42-52); Hemoglobin Bedside 8.2 g/dL (14.0-18.0); Potassium Bedside 4.7 mmol/L (3.3-5.1); Sodium Bedside 141 mmol/L (135-145); TCO2 Bedside 26 mmol/L (24-29); pCO2 Bedside 52 mmhg (35-48); pH Bedside 7.27 (7.35-7.45)
--- NOTE | 2023-01-20 13:06 | P.PNIM_ITS ---
Subjective Subjective Date of Service: 01/21/23 Interval History: colon mass,anemia Review of Systems Patient is hoping to go to surgery today Denies any chest pain or shortness of breath or abdominal pain or fever chills . Physical Exam Vital Signs: Vital Signs: Last Vital Signs Temp 97.6 F 01/20/23 09:50 Pulse 69 01/20/23 09:50 Resp 16 01/20/23 09:50 BP 120/80 01/20/23 09:50 Pulse Ox 97 01/20/23 09:50 O2 Del Method Room Air 01/20/23 09:50 BMI result Body Mass Index 29.0 General: AO X 3, no acute distress Resp:? CTA bilateral CVS: S1,S2,RRR GI: +BS, NT, no distention Skin: No rash Neuro:? motor grossly intact Psych: appropriate affect Objective Data Active Medications Atorvastatin Calcium (Atorvastatin Calcium 10 Mg Tablet) 10 mg PO BEDTIME [facility] Last Admin: 01/18/23 20:45 Dose: 10 mg Documented By: BOBBY Escitalopram Oxalate (Escitalopram Oxalate 10 Mg Tablet) 10 mg PO DAILY [facility] Last Admin: 01/20/23 08:15 Dose: 10 mg Documented By: CHADD Fentanyl (Fentanyl Citrate/Pf 100 Mcg/2 Ml Vial) 50 mcg IVPUSH Q5M PRN; Protocol PRN Reason: Pain, Severe (Pain Scale 7-10) Ferrous Sulfate (Ferrous Sulfate 324 Mg Tablet.) 324 mg PO BID [facility] Last Admin: 01/20/23 08:15 Dose: 324 mg Documented By: CHADD Glucose (Glucose Gel 15 Gm Gel..Gram.) 15 gm PO Q15M PRN; Protocol PRN Reason: per Hypoglycemia Standing Ord. Hydromorphone HCl (Hydromorphone Hcl 0.5 Mg/0.5 Ml Syringe) 0.5 mg IVPUSH Q5M PRN; Protocol PRN Reason: Pain, Severe (Pain Scale 7-10) Hydroxyzine HCl (Hydroxyzine Hcl 25 Mg Tablet) 25 mg PO TID PRN PRN Reason: itch Last Admin: 01/19/23 21:46 Dose: 25 mg Documented By: RICHARD Dextrose (D10) 250 mls @ 750 mls/hr IV Q15M PRN; Protocol PRN Reason: per Hypoglycemia Standing Ord. Lactated Ringer's (Lr) 1,000 mls @ 100 mls/hr IVCONT .Q10H [facility] Last Admin: 01/20/23 09:34 Dose: Not Given Documented By: CHADD Non-Admin Reason: Off Unit: Surgery Insulin Glargine (Insulin Glargine,Hum.Rec.Anlog 100 Unit/Ml 10 Ml Vial) 9 unit SUBCUT DAILY [facility] Last Admin: 01/20/23 08:15 Dose: Not Given Documented By: CHADD Non-Admin Reason: Physician Held Med Insulin Human Lispro (Insulin Lispro 100 Unit/Ml 3 Ml Vial) 0 unit SUBCUT QIDACHS [facility]; Protocol Last Admin: 01/20/23 07:59 Dose: Not Given Documented By: CHADD Non-Admin Reason: No Insulin Coverage Lisinopril (Lisinopril 20 Mg Tablet) 20 mg PO DAILY [facility]; Protocol Last Admin: 01/18/23 08:04 Dose: 20 mg Documented By: ABHAY Metformin HCl (Metformin Hcl 1,000 Mg Tablet) 1,000 mg PO BIDWM [facility] Last Admin: 01/18/23 16:59 Dose: 1,000 mg Documented By: ABHAY Methadone HCl (Methadone Hcl 20 Mg/2 Ml Oral.Conc) 65 mg PO DAILY [facility] Last Admin: 01/20/23 08:14 Dose: 65 mg Documented By: CHADD Metoprolol Succinate (Metoprolol Succinate Er 50 Mg Tab.Er.24h) 50 mg PO DAILY [facility]; Protocol Last Admin: 01/20/23 08:15 Dose: 50 mg Documented By: CHADD Naloxone HCl (Naloxone Hcl Nasal 4 Mg [place]) 4 mg NOSTRILALT Q3M PRN PRN Reason: Opioid Overdose Nifedipine (Nifedipine Er 30 Mg Tab.Er.24) 30 mg PO DAILY [facility] Last Admin: 01/18/23 08:04 Dose: 30 mg Documented By: ABHAY Omeprazole (Omeprazole 20 Mg Capsule.) 20 mg PO DAILY@0630 [facility] Last Admin: 01/20/23 06:26 Dose: 20 mg Documented By: ADRIANE Ondansetron HCl (Ondansetron Hcl 4 Mg/2 Ml Vial) 4 mg IVPUSH ONCE PRN PRN Reason: Nausea and Vomiting Oxycodone HCl (Oxycodone Hcl Immed Release 5 Mg Tablet) 5 mg PO Q6H PRN PRN Reason: Pain, Severe (Pain Scale 7-10) Last Admin: 01/19/23 21:46 Dose: 5 mg Documented By: RICHARD Pregabalin (Pregabalin 50 Mg Capsule) 50 mg PO TID [facility] Last Admin: 01/20/23 08:15 Dose: 50 mg Documented By: CHADD Sodium Biphosphate/Sodium Phosphate (Sodium Phosphate,Fisher-Dibasic 133 Ml Enema) 133 ml [place] ONCE PRN PRN Reason: Consult order Last Admin: 01/14/23 11:12 Dose: 133 ml Documented By: MARLENI Sodium Chloride (0.9 % Sodium Chloride Flush 3 Ml Syringe) 3 ml IVFLUSH QSHIFT [facility] Last Admin: 01/20/23 08:15 Dose: 3 ml Documented By: CHADD Tamsulosin HCl (Tamsulosin Hcl 0.4 Mg Capsule) 0.4 mg PO BEDTIME [facility] Last Admin: 01/19/23 21:46 Dose: 0.4 mg Documented By: RICHARD Labs 01/17/23 05:52 01/20/23 10:42 Labs: Laboratory Results - last 24 hr 01/19/23 01/19/23 01/20/23 15:47 20:34 07:21 POC Hgb (Calc) POC Hct POC Std Base Excess POC O2 Sat (Calc) POC ABG Total CO2 POC Capillary pH POC Capillary pCO2 POC Cap HCO3 (Calc) POC Sodium POC Potassium Anion Gap Estim Creat Clear Calc Estimated GFR POC Glucose 150 H 152 H 135 H Random Glucose Calcium 01/20/23 01/20/23 10:42 12:57 POC Hgb (Calc) 8.2 L POC Hct 24 L POC Std Base Excess -3 POC O2 Sat (Calc) TNP POC ABG Total CO2 26 POC Capillary pH 7.27 L POC Capillary pCO2 52 H POC Cap HCO3 (Calc) 24 POC Sodium 141 POC Potassium 4.7 Anion Gap 13 Estim Creat Clear Calc 59.2 Estimated GFR 53 POC Glucose 87 Random Glucose 120 H Calcium 9.1 Assessment and Plan (1) Colon cancer: Status: Acute (2) Anemia: Status: Acute Plan 56-year-old male with history of chronic normocytic anemia, insulin-dependent type 2 diabetes, chronic kidney disease stage III, history of opiate use disorder on methadone patient denies recent use, peripheral artery disease with recent admission s/p L TMA, Chronic anemia here with Melana and anemia.. He underwent colonoscopy and noted to have? a mass ans is awaiting surgery once pathology report is available, he has been transfused one unit of RBC, he is unreliable and unlikely to return for surgery if discharged Melana and acute on chronic? anemia due to blood loss s/p 1 unit of RBC. EGD on 01/13 unremarkable, Colonoscopy 01/14 noted colon mass-biopsy shows joseph ocarcinoma, surgery Dr Santana follow up. h/h 8.10/01, bmp seems fine,added ivf since npo npo past midnight for possible surgery in am. Insulin dependence type 2 diabetes : -POC glucose -diabetic diet,Insulin . HypERkalemia of 5.5, got 10 of lokelma on 01/12 and afterwards? K is 4.8 ?opiate use disorder-continue methadone. ?PAD--hold ASA and Plavix. DVT prophylaxis compresion device d/t anemia, and low H?H Full code need for inaptient: going to OR today Time Spent With Patient Time: Total time managing care of this patient today ____ minutes. Quality Stroke Does the patient have a stroke diagnosis?: No VTE Prior VTE?: No VTE Risk Level:: Medical - moderate - high VTE Device Contraindication: Treatment Not Indicated VTE Drug Contraindication: Treatment Not Indicated
--- NOTE | 2023-01-20 13:49 | MHC.CM.PN ---
PATIENT IN SURGERY TODAY [facility]
[2023-01-20 14:14] LABS: Glucose, Whole Blood 121 mg/dL (60-115)
--- NOTE | 2023-01-20 14:14 | P.OP_ITS ---
Operative Note Operative Note Date of Service: 01/20/23 Narrative: preop diagnosis: Right colon cancer Postop diagnosis: Right colon cancer, extensive adhesions around the cecum Procedure: Hand assisted laparoscopic right colon resection, with extensive lysis of adhesions Surgeon: Parish Santana MD timber management assistant: Leonel Bartlett MD The patient is a 57-year-old male, initially admitted because of anemia with a colonoscopy showing a lesion in the right colon near the cecum. Biopsy showed adenocarcinoma. He understood the technique of hand assisted laparoscopic right colon resection. He understood the risks, benefits, and alternatives. His was involved with discussion. He ws brought to the operating room. He was placed supine under general anesthesia via endotracheal tube. A Castano catheter was inserted. The abdomen is prepped and draped in the usual sterile fashion. A surgical time-out was done. The patient received Cefotan 2 g IV preoperatively. I made a short midline incision using blade 15 just above the umbilicus. I carried down through the full-thickness of the skin and subcutaneous fat with electrocautery until the a fascia was exposed. It is noted the patient is morbidly obese and had a thick amount of subcutaneous fat. I incised the fascia to enter the peritoneum. The Kalpesh wound retractor was position. GelPort was attached to this. Insufflation was done to a pressure 50 minutes hg through a port in the GelPort. I used a 10 mm 30 degree scope and with laparoscopic visualization, inserted 2 5/12 mm ports in the epigastric area below the xiphoid, as well as the left upper quadrant through small stab incisions. I removed the port from the GelPort and placed the scope through the epigastric port. The patient was placed in a [id number] and head-down position. I placed my hand through the GelPort. I retracted all the bowel loops away from the right lower quadrant. The cecum and right colon were seen. The tattoo marking was seen just distal to the cecum. I therefore mobilized the right colon by dividing the patch minutes along the white line of Toldt using the LigaSure. I continue mobilization past the flexure to divide the hepatic colic ligaments all the way to midline. I continued to divide lesions the retroperitoneum to separate the mesentery. The duodenum was visualized and this was our medial limit of our dissection. At the cecum however, there was note of a lot of adhesions tethering the distal ileum around this area all the way to the abdominal wall. This was likely secondary to previous appendectomy. Some of the terminal ileum were looped onto each other with interloop adhesions and we had to do a lot of dissection using the LigaSure to release this from the abdominal wall as well. Eventually able to release this entire adherent ileum and the cecum and we had adequate mobilization. At this point therefore a felt that we had adequate mobilization to do a resection. I removed the GelPort. I pulled up the entire right colon through the this wound retractor. Identified the panic flexure inflated a mesenteric window through this. I divided this using the YOHANA 60 mm stapler. I then proceeded to identify the ileum. I used I created a mesenteric window about 10 cm from the ileocecal valve and divided this with a YOHANA 60 minutes staplers well. With this entire right colon pulled up, proceeded to then divide the attached mesentery alternating from top part as well as the proximal part making sure that we had included lymph node basin for pathologic examination. I eventually identified the pedicles. I separately the artery and vein and divided this between clamps. I doubly ligated the artery and vein separately using Polysorb 2-0 ties.each of these pedicles. The right colon including the terminal ileum up to the hepatic flexure was then sent for immediate gross to the pathologist. I then retrieved the colon stump as well as the ileal stump for our [id number] anastomosis. This were pulled up the incision through the Kalpesh wound retractor. I created an enterotomy on the apex of each staple line at the anti mesenteric border. I positioned each arm of the YOHANA 60 minute stapler locked this in place. Major that there was no bowel caught between the staple lines prior to firing. The stapler was then fired to create our [id number]-[id number] anastomosis. I completed the anastomosis by the enterotomy with a TA 60 minute stapler. There was note of good hemostasis. The staple lines were intact. There was note of good blood supply and the staple lines did not appear ischemic. There was no tension either. The anastomosis was palpated between the thumb and index finger and this felt widely patent. I placed the bowel loops back into the peritoneal cavity. I changed gloves. I re-examined laparoscopically . There was note of good hemostasis in the peritoneum. There were no signs of any injury. I irrigated a little bit. Once hemostasis was confirmed, I proceeded to then close the fascia with a running Maxon 1 stitch. After fascial closure, I was able to examine the fascial closure laparoscopically through the epigastric port and there were no bowel loops or omentum caught with the sutures. I desufflated through this port and removed this. I closed all incisions with skin junaid. I infiltrated all incisions with Marcaine 0.5% for postop YOHANA. Dressings were applied. The procedure was completed. The pathologist had called and stated that the lesion was seen just past the cecum and margins were negative. The patient tolerated the procedure well. There were no immediate complications. Initial and final counts of sponges and instruments were correct. Estimated blood loss was about 100 cc. The patient was extubated without difficulty and transferred to the recovery room with stable vital signs.
[2023-01-20] MEDS: oxyCODONE HCl Immed Release 5 MG TABLET PO (14:40)
[2023-01-20] MEDS: fentaNYL citrate/PF 100 MCG/2 ML VIAL 50 MCG IVPUSH ×2 (14:42→14:46)
--- NOTE | 2023-01-20 15:32 | PC.NURSE ---
urine output 700ml from o.r. and 300ml from pacu
[2023-01-20] MEDS: Acetaminophen 1,000 MG/100 ML PIGGYBACK 400 MG IV ×2 (15:46→20:58)
[2023-01-20] MEDS: Lactated Ringers 1,000 ML 100 ML IVCONT (15:51)
[2023-01-20 16:07] LABS: Glucose, Whole Blood 126 mg/dL (60-115)
--- NOTE | 2023-01-20 16:47 | PM.EVENT ---
Event Note Date of Service: 01/20/23 Event Note: seen postop underwent right colon resection drowsy seems to have adequate pain control stable VS good UO pain mgt incentive spirometry clear liquids Time Spent With Patient Time: Total time managing care of this patient today ____ minutes.
[2023-01-20] MEDS: NIFEdipine ER 30 MG TAB.ER.24 PO (17:52)
[2023-01-20 19:55] LABS: Glucose, Whole Blood 120 mg/dL (60-115)
[2023-01-21] VITALS (8 sets, daily range): BP systolic 112–140; BP diastolic 57–72; PULSE 76–87; RESP 14–20; TEMP 36.3–37; O2SAT 94–98; BMI 29.0
[2023-01-21] MEDS: Lactated Ringers 1,000 ML 100 ML IVCONT ×2 (02:13→11:54)
[2023-01-21] MEDS: Acetaminophen 1,000 MG/100 ML PIGGYBACK 400 MG IV ×4 (03:08→21:19)
[2023-01-21] MEDS: Omeprazole 20 MG CAPSULE.DR PO (05:36)
[2023-01-21 05:37] LABS: Glucose, Whole Blood 110 mg/dL (60-115)
[2023-01-21] MEDS: metFORMIN HCl 1,000 MG TABLET 1000 MG PO (07:16)
[2023-01-21] MEDS: Metoprolol Succinate ER 50 MG TAB.ER.24H PO (07:16)
[2023-01-21] MEDS: oxyCODONE HCl Immed Release 5 MG TABLET 10 MG PO (07:17)
[2023-01-21] MEDS: lisinopriL 20 MG TABLET PO (07:17)
[2023-01-21] MEDS: Pregabalin 50 MG CAPSULE PO ×3 (07:17→21:10)
[2023-01-21] MEDS: Ferrous Sulfate 324 MG TABLET.DR PO (07:17)
[2023-01-21] MEDS: Escitalopram Oxalate 10 MG TABLET PO (07:18)
[2023-01-21] MEDS: NIFEdipine ER 30 MG TAB.ER.24 PO (07:18)
[2023-01-21 07:22] LABS: Glucose, Whole Blood 103 mg/dL (60-115)
--- NOTE | 2023-01-21 08:54 | PM.PNGS ---
Subjective Subjective Date of Service: 01/21/23 Interval history: complains of incisional pain denies flatus no events reported Physical Exam Vital Signs: Vital Signs: Last Vital Signs Temp 97.6 F 01/21/23 07:14 Pulse 82 01/21/23 07:14 Resp 20 01/21/23 07:14 BP 133/62 01/21/23 07:14 Pulse Ox 98 01/21/23 07:14 O2 Del Method Room Air 01/21/23 07:14 BMI result Body Mass Index 29.0 Const: General: no acute distress Resp: Effort & Inspection: normal respiratory effort Cardio: Rate: regular rate GI: Other: dressings dry Palpation (GI): Soft to palpation, not firm and no guarding Objective Data Active Medications Atorvastatin Calcium (Atorvastatin Calcium 10 Mg Tablet) 10 mg PO BEDTIME [facility] Last Admin: 01/20/23 21:05 Dose: Not Given Documented By: CHANDLER Non-Admin Reason: Patient Refused Escitalopram Oxalate (Escitalopram Oxalate 10 Mg Tablet) 10 mg PO DAILY [facility] Last Admin: 01/21/23 07:18 Dose: 10 mg Documented By: PAWAN Fentanyl (Fentanyl Citrate/Pf 100 Mcg/2 Ml Vial) 50 mcg IVPUSH Q5M PRN; Protocol PRN Reason: Pain, Severe (Pain Scale 7-10) Last Admin: 01/20/23 14:46 Dose: 50 mcg Documented By: JESSICA Ferrous Sulfate (Ferrous Sulfate 324 Mg Tablet.Dr) 324 mg PO BID [facility] Last Admin: 01/21/23 07:17 Dose: 324 mg Documented By: PAWAN Glucose (Glucose Gel 15 Gm Gel..Gram.) 15 gm PO Q15M PRN; Protocol PRN Reason: per Hypoglycemia Standing Ord. Hydromorphone HCl (Hydromorphone Hcl 0.5 Mg/0.5 Ml Syringe) 0.5 mg IVPUSH Q5M PRN; Protocol PRN Reason: Pain, Severe (Pain Scale 7-10) Hydroxyzine HCl (Hydroxyzine Hcl 25 Mg Tablet) 25 mg PO TID PRN PRN Reason: itch Last Admin: 01/19/23 21:46 Dose: 25 mg Documented By: RICHARD Dextrose (D10) 250 mls @ 750 mls/hr IV Q15M PRN; Protocol PRN Reason: per Hypoglycemia Standing Ord. Lactated Ringer's (Lr) 1,000 mls @ 100 mls/hr IVCONT .Q10H [facility] Last Admin: 01/21/23 02:13 Dose: 100 mls/hr Documented By: BOBBY Acetaminophen (Ofirmev) 1,000 mg in 100 mls @ 400 mls/hr IV Q6H [facility] Stop: 01/21/23 09:32 Last Infusion: 01/21/23 03:27 Dose: 0 mls/hr Documented By: CHANDLER Insulin Glargine (Insulin Glargine,Hum.Rec.Anlog 100 Unit/Ml 10 Ml Vial) 9 unit SUBCUT DAILY [facility] Last Admin: 01/20/23 08:15 Dose: Not Given Documented By: CHADD Non-Admin Reason: Physician Held Med Insulin Human Lispro (Insulin Lispro 100 Unit/Ml 3 Ml Vial) 0 unit SUBCUT QIDACHS [facility]; Protocol Last Admin: 01/21/23 07:26 Dose: Not Given Documented By: MARLENI Non-Admin Reason: No Insulin Coverage Lisinopril (Lisinopril 20 Mg Tablet) 20 mg PO DAILY [facility]; Protocol Last Admin: 01/21/23 07:17 Dose: 20 mg Documented By: PAWAN Metformin HCl (Metformin Hcl 1,000 Mg Tablet) 1,000 mg PO BIDWM [facility] Last Admin: 01/21/23 07:16 Dose: 1,000 mg Documented By: PAWAN Methadone HCl (Methadone Hcl 20 Mg/2 Ml Oral.Conc) 65 mg PO DAILY [facility] Last Admin: 01/20/23 08:14 Dose: 65 mg Documented By: CHADD Metoprolol Succinate (Metoprolol Succinate Er 50 Mg Tab.Er.24h) 50 mg PO DAILY [facility]; Protocol Last Admin: 01/21/23 07:16 Dose: 50 mg Documented By: PAWAN Morphine Sulfate (Morphine Sulfate 4 Mg/Ml Cartridge) 4 mg IVPUSH Q3H PRN; Protocol PRN Reason: Pain, Severe (Pain Scale 7-10) Naloxone HCl (Naloxone Hcl Nasal 4 Mg [place]) 4 mg NOSTRILALT Q3M PRN PRN Reason: Opioid Overdose Nifedipine (Nifedipine Er 30 Mg Tab.Er.24) 30 mg PO DAILY [facility] Last Admin: 01/21/23 07:18 Dose: 30 mg Documented By: PAWAN Omeprazole (Omeprazole 20 Mg Capsule.Dr) 20 mg PO DAILY@0630 [facility] Last Admin: 01/21/23 05:36 Dose: 20 mg Documented By: CHANDLER Ondansetron HCl (Ondansetron Hcl 4 Mg/2 Ml Vial) 4 mg IVPUSH ONCE PRN PRN Reason: Nausea and Vomiting Ondansetron HCl (Ondansetron Hcl 4 Mg/2 Ml Vial) 4 mg IVPUSH Q6H PRN PRN Reason: Nausea Oxycodone HCl (Oxycodone Hcl Immed Release 5 Mg Tablet) 5 mg PO Q6H PRN PRN Reason: Pain, Severe (Pain Scale 7-10) Last Admin: 01/20/23 14:40 Dose: 5 mg Documented By: JESSICA Oxycodone HCl (Oxycodone Hcl Immed Release 5 Mg Tablet) 10 mg PO Q4H PRN PRN Reason: Pain, Moderate(Pain Scale 4-6) Last Admin: 01/21/23 07:17 Dose: 10 mg Documented By: PAWAN Pregabalin (Pregabalin 50 Mg Capsule) 50 mg PO TID [facility] Last Admin: 01/21/23 07:17 Dose: 50 mg Documented By: PAWAN Sodium Biphosphate/Sodium Phosphate (Sodium Phosphate,Isabela-Dibasic 133 Ml Enema) 133 ml [place] ONCE PRN PRN Reason: Consult order Last Admin: 01/14/23 11:12 Dose: 133 ml Documented By: MARLENI Sodium Chloride (0.9 % Sodium Chloride Flush 3 Ml Syringe) 3 ml IVFLUSH QSHIFT [facility] Last Admin: 01/21/23 07:26 Dose: Not Given Documented By: MARLENI Non-Admin Reason: IV Running Tamsulosin HCl (Tamsulosin Hcl 0.4 Mg Capsule) 0.4 mg PO BEDTIME [facility] Last Admin: 01/20/23 21:06 Dose: Not Given Documented By: CHANDLER Non-Admin Reason: Patient Refused Labs 01/17/23 05:52 01/20/23 10:42 Labs: Laboratory Results - last 24 hr 01/20/23 01/20/23 01/20/23 10:42 12:57 14:12 POC Hgb (Calc) 8.2 L POC Hct 24 L POC Std Base Excess -3 POC O2 Sat (Calc) TNP POC ABG pO2 TNP POC ABG Total CO2 26 POC Capillary pH 7.27 L POC Capillary pCO2 52 H POC Cap HCO3 (Calc) 24 POC Sodium 141 POC Potassium 4.7 Anion Gap 13 Estim Creat Clear Calc 59.2 Estimated GFR 53 POC Glucose 87 121 H Random Glucose 120 H Calcium 9.1 01/20/23 01/20/23 01/21/23 16:03 19:40 05:33 POC Hgb (Calc) POC Hct POC Std Base Excess POC O2 Sat (Calc) POC ABG pO2 POC ABG Total CO2 POC Capillary pH POC Capillary pCO2 POC Cap HCO3 (Calc) POC Sodium POC Potassium Anion Gap Estim Creat Clear Calc Estimated GFR POC Glucose 126 H 120 H 110 Random Glucose Calcium 01/21/23 07:18 POC Hgb (Calc) POC Hct POC Std Base Excess POC O2 Sat (Calc) POC ABG pO2 POC ABG Total CO2 POC Capillary pH POC Capillary pCO2 POC Cap HCO3 (Calc) POC Sodium POC Potassium Anion Gap Estim Creat Clear Calc Estimated GFR POC Glucose 103 Random Glucose Calcium Procedures Date of Service Date of Service: 01/21/23 Progress Note: A&P Assessment and plan (1) Colon cancer: Status: Acute Assessment and Plan: status post right colon resection remains stable postop await return of GI function on clear liquids pain management encouraged to get out of bed incentive spirometry labs pending Time Spent With Patient Time: Total time managing care of this patient today ____ minutes. Quality Stroke Does the patient have a stroke diagnosis?: No VTE Prior VTE?: No VTE Risk Level:: Medical - moderate - high VTE Device Contraindication: Treatment Not Indicated VTE Drug Contraindication: Treatment Not Indicated
[2023-01-21] MEDS: methADONE HCl 20 MG/2 ML ORAL.CONC 65 MG PO (09:01)
[2023-01-21] MEDS: Morphine Sulfate 4 MG/ML CARTRIDGE IVPUSH ×2 (09:16→16:24)
[2023-01-21 09:37] LABS: Hematocrit 26.1 % (42.0-52.0); Hemoglobin 8.1 g/dl (14.0-18.0); Mean Corpuscular HGB Conc 31.2 g/dl (31.0-36.0); Mean Corpuscular Hemoglobin 25.7 pg (27.0-33.0); Mean Corpuscular Volume 82.5 fL (80.0-98.0); Mean Platelet Volume 11.2 fL (9.4-12.4); Platelet Count 186 X10*3/uL (160-400); Red Blood Count 3.15 X10*6/uL (4.60-5.80); Red Cell Distribution Width 14.7 % (11.0-16.0); White Blood Count 12.5 X10*3/uL (4.8-10.8)
[2023-01-21 10:00] LABS: Anion Gap 11 (12-20); Blood Urea Nitrogen 36 mg/dL (9-16); Carbon Dioxide 26 mmol/L (22-29); Chloride 106 mmol/L (96-108); Creatinine Clr Calc Pharmacy 62.4; Estimated Glomerular Filt Rate 56; Glucose Random 103 mg/dL (60-115); Potassium 4.8 mmol/L (3.3-5.1); Sodium 138 mmol/L (135-145)
--- NOTE | 2023-01-21 10:22 | PC.NURSE ---
Pt MEDICATED WITH OXYCODONE AND MORPHINE. REFUSES TO PUT HOB UP. TURN FOR ASSESSMENT. REFUSES INCENTIVE SPIROMETER AND CLEAR LIQUIDS
[2023-01-21 11:31] LABS: Glucose, Whole Blood 101 mg/dL (60-115)
--- NOTE | 2023-01-21 11:31 | MHC.CLN ---
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
[2023-01-21 11:51] LABS: Albumin Level 3.1 g/dL (3.5-5.0); Magnesium 1.7 mg/dL (1.6-2.6); Phosphorus 3.7 mg/dL (2.7-4.5); Triglycerides 88 mg/dL
--- NOTE | 2023-01-21 12:08 | P.PNIM_ITS ---
Subjective Subjective Date of Service: 01/21/23 Interval History: colon mass,anemia Review of Systems s/p colon surgery yesterday,abd still soar Denies any chest pain or shortness of breath or abdominal pain or fever chills . Physical Exam Vital Signs: Vital Signs: Last Vital Signs Temp 98.6 F 01/21/23 11:22 Pulse 80 01/21/23 11:22 Resp 20 01/21/23 11:22 BP 112/58 L 01/21/23 11:22 Pulse Ox 96 01/21/23 11:22 O2 Del Method Room Air 01/21/23 11:22 BMI result Body Mass Index 29.0 General: AO X 3, no acute distress Resp:? CTA bilateral CVS: S1,S2,RRR GI: +BS, NT, no distention Skin: No rash Neuro:? motor grossly intact Psych: appropriate affect Objective Data Active Medications Atorvastatin Calcium (Atorvastatin Calcium 10 Mg Tablet) 10 mg PO BEDTIME [facility] Last Admin: 01/20/23 21:05 Dose: Not Given Documented By: CHANDLER Non-Admin Reason: Patient Refused Escitalopram Oxalate (Escitalopram Oxalate 10 Mg Tablet) 10 mg PO DAILY [facility] Last Admin: 01/21/23 07:18 Dose: 10 mg Documented By: PAWAN Fentanyl (Fentanyl Citrate/Pf 100 Mcg/2 Ml Vial) 50 mcg IVPUSH Q5M PRN; Protocol PRN Reason: Pain, Severe (Pain Scale 7-10) Last Admin: 01/20/23 14:46 Dose: 50 mcg Documented By: JESSICA Ferrous Sulfate (Ferrous Sulfate 324 Mg Tablet.) 324 mg PO BID [facility] Last Admin: 01/21/23 07:17 Dose: 324 mg Documented By: PAWAN Glucose (Glucose Gel 15 Gm Gel..Gram.) 15 gm PO Q15M PRN; Protocol PRN Reason: per Hypoglycemia Standing Ord. Hydromorphone HCl (Hydromorphone Hcl 0.5 Mg/0.5 Ml Syringe) 0.5 mg IVPUSH Q5M PRN; Protocol PRN Reason: Pain, Severe (Pain Scale 7-10) Hydroxyzine HCl (Hydroxyzine Hcl 25 Mg Tablet) 25 mg PO TID PRN PRN Reason: itch Last Admin: 01/19/23 21:46 Dose: 25 mg Documented By: RICHARD Dextrose (D10) 250 mls @ 750 mls/hr IV Q15M PRN; Protocol PRN Reason: per Hypoglycemia Standing Ord. Lactated Ringer's (Lr) 1,000 mls @ 100 mls/hr IVCONT .Q10H [facility] Last Admin: 01/21/23 11:54 Dose: 100 mls/hr Documented By: SMILEY Multivitamins 10 ml/ Trace Metals 1 ml/ Amino Acids/Electrolytes/Dextrose 1,440 mls @ 60 mls/hr IV DAILY@1800 [facility] Stop: 01/22/23 17:59 Insulin Glargine (Insulin Glargine,Hum.Rec.Anlog 100 Unit/Ml 10 Ml Vial) 9 unit SUBCUT DAILY [facility] Last Admin: 01/21/23 08:57 Dose: Not Given Documented By: MARLENI Non-Admin Reason: No Insulin Coverage Insulin Human Lispro (Insulin Lispro 100 Unit/Ml 3 Ml Vial) 0 unit SUBCUT QIDACHS [facility]; Protocol Last Admin: 01/21/23 11:40 Dose: Not Given Documented By: SMILEY Non-Admin Reason: No Insulin Coverage Lisinopril (Lisinopril 20 Mg Tablet) 20 mg PO DAILY [facility]; Protocol Last Admin: 01/21/23 07:17 Dose: 20 mg Documented By: PAWAN Metformin HCl (Metformin Hcl 1,000 Mg Tablet) 1,000 mg PO BIDWM [facility] Last Admin: 01/21/23 07:16 Dose: 1,000 mg Documented By: PAWAN Methadone HCl (Methadone Hcl 20 Mg/2 Ml Oral.Conc) 65 mg PO DAILY [facility] Last Admin: 01/21/23 09:01 Dose: 65 mg Documented By: MARLENI Metoprolol Succinate (Metoprolol Succinate Er 50 Mg Tab.Er.24h) 50 mg PO DAILY [facility]; Protocol Last Admin: 01/21/23 07:16 Dose: 50 mg Documented By: PAWAN Morphine Sulfate (Morphine Sulfate 4 Mg/Ml Cartridge) 4 mg IVPUSH Q3H PRN; Protocol PRN Reason: Pain, Severe (Pain Scale 7-10) Last Admin: 01/21/23 09:16 Dose: 4 mg Documented By: MARLENI Naloxone HCl (Naloxone Hcl Nasal 4 Mg [place]) 4 mg NOSTRILALT Q3M PRN PRN Reason: Opioid Overdose Nifedipine (Nifedipine Er 30 Mg Tab.Er.24) 30 mg PO DAILY [facility] Last Admin: 01/21/23 07:18 Dose: 30 mg Documented By: PAWAN Omeprazole (Omeprazole 20 Mg Capsule.Dr) 20 mg PO DAILY@0630 [facility] Last Admin: 01/21/23 05:36 Dose: 20 mg Documented By: CHANDLER Ondansetron HCl (Ondansetron Hcl 4 Mg/2 Ml Vial) 4 mg IVPUSH ONCE PRN PRN Reason: Nausea and Vomiting Ondansetron HCl (Ondansetron Hcl 4 Mg/2 Ml Vial) 4 mg IVPUSH Q6H PRN PRN Reason: Nausea Oxycodone HCl (Oxycodone Hcl Immed Release 5 Mg Tablet) 5 mg PO Q6H PRN PRN Reason: Pain, Severe (Pain Scale 7-10) Last Admin: 01/20/23 14:40 Dose: 5 mg Documented By: JESSICA Oxycodone HCl (Oxycodone Hcl Immed Release 5 Mg Tablet) 10 mg PO Q4H PRN PRN Reason: Pain, Moderate(Pain Scale 4-6) Last Admin: 01/21/23 07:17 Dose: 10 mg Documented By: PAWAN Pregabalin (Pregabalin 50 Mg Capsule) 50 mg PO TID [facility] Last Admin: 01/21/23 07:17 Dose: 50 mg Documented By: PAWAN Sodium Biphosphate/Sodium Phosphate (Sodium Phosphate,[place]-Dibasic 133 Ml Enema) 133 ml [place] ONCE PRN PRN Reason: Consult order Last Admin: 01/14/23 11:12 Dose: 133 ml Documented By: MARLENI Sodium Chloride (0.9 % Sodium Chloride Flush 3 Ml Syringe) 3 ml IVFLUSH QSHIFT [facility] Last Admin: 01/21/23 07:26 Dose: Not Given Documented By: MARLENI Non-Admin Reason: IV Running Tamsulosin HCl (Tamsulosin Hcl 0.4 Mg Capsule) 0.4 mg PO BEDTIME [facility] Last Admin: 01/20/23 21:06 Dose: Not Given Documented By: CHANDLER Non-Admin Reason: Patient Refused Labs 01/21/23 09:30 01/21/23 09:30 Labs: Laboratory Results - last 24 hr 01/20/23 01/20/23 01/20/23 12:57 14:12 16:03 POC Hgb (Calc) 8.2 L POC Hct 24 L MCV MCH MCHC RDW Plt Count MPV Absolute Nucleated RBC Nucleated RBC % (auto) POC Std Base Excess -3 POC O2 Sat (Calc) TNP POC ABG pO2 TNP POC ABG Total CO2 26 POC Capillary pH 7.27 L POC Capillary pCO2 52 H POC Cap HCO3 (Calc) 24 POC Sodium 141 POC Potassium 4.7 Anion Gap Estim Creat Clear Calc Estimated GFR POC Glucose 87 121 H 126 H Random Glucose Calcium Phosphorus Magnesium Albumin Triglycerides 01/20/23 01/21/23 01/21/23 19:40 05:33 07:18 POC Hgb (Calc) POC Hct MCV MCH MCHC RDW Plt Count MPV Absolute Nucleated RBC Nucleated RBC % (auto) POC Std Base Excess POC O2 Sat (Calc) POC ABG pO2 POC ABG Total CO2 POC Capillary pH POC Capillary pCO2 POC Cap HCO3 (Calc) POC Sodium POC Potassium Anion Gap Estim Creat Clear Calc Estimated GFR POC Glucose 120 H 110 103 Random Glucose Calcium Phosphorus Magnesium Albumin Triglycerides 01/21/23 01/21/23 01/21/23 09:30 09:30 11:27 POC Hgb (Calc) POC Hct MCV 82.5 MCH 25.7 L MCHC 31.2 RDW 14.7 Plt Count 186 MPV 11.2 Absolute Nucleated RBC 0.000 Nucleated RBC % (auto) 0.0 POC Std Base Excess POC O2 Sat (Calc) POC ABG pO2 POC ABG Total CO2 POC Capillary pH POC Capillary pCO2 POC Cap HCO3 (Calc) POC Sodium POC Potassium Anion Gap 11 L Estim Creat Clear Calc 62.4 Estimated GFR 56 POC Glucose 101 Random Glucose 103 Calcium 9.0 Phosphorus 3.7 Magnesium 1.7 Albumin 3.1 L Triglycerides 88 Assessment and Plan (1) Anemia: Status: Acute (2) Colon cancer: Status: Acute Plan 56-year-old male with history of chronic normocytic anemia, insulin-dependent type 2 diabetes, chronic kidney disease stage III, history of opiate use disorder on methadone patient denies recent use, peripheral artery disease with recent admission s/p L TMA, Chronic anemia here with Melana and anemia.. He underwent colonoscopy and noted to have? a mass ans is awaiting surgery once pathology report is available, he has been transfused one unit of RBC, he is unreliable and unlikely to return for surgery if discharged Melana and acute on chronic? anemia due to blood loss s/p 1 unit of RBC. colon mass-biopsy shows adenocarcinoma, postopday1(s/p underwent right colon resection),surgery pathology pending h/h 8.09/02, bmp seems fine seems hesitant to eat, need lot of encouragement. did not tolerate diet and no bm's yet Meanwhile added PPN Continue to monitor. Insulin dependence type 2 diabetes : -POC glucose -diabetic diet,Insulin . HypERkalemia of 5.5, got 10 of lokelma on 01/12 and afterwards? K is 4.8 ?opiate use disorder-continue methadone. ?PAD--hold ASA and Plavix. DVT prophylaxis compresion device d/t anemia, and low H?H Full code need for inaptient: colon ca-s/p underwent right colon resection),surgery pathology pending,did not tolerate diet and no bm's yet Time Spent With Patient Time: Total time managing care of this patient today ____ minutes. Quality Stroke Does the patient have a stroke diagnosis?: No VTE Prior VTE?: No VTE Risk Level:: Medical - moderate - high VTE Device Contraindication: Treatment Not Indicated VTE Drug Contraindication: Treatment Not Indicated
--- NOTE | 2023-01-21 14:35 | MHC.CM.PN ---
Per MD rounds no dc today. Patient s/p colon resection yesterday 01/20. Patient is on clears. Plan for PPN if PO intake does not improve. DP home with resumption of [facility]. Patient will need assist with transport home.
[2023-01-21] MEDS: 0.9 % Sodium Chloride Flush 3 ML SYRINGE IVFLUSH (15:06)
--- NOTE | 2023-01-21 16:00 | PM.EVENT ---
Event Note Date of Service: 01/21/23 Event Note: seen on afternoon rounds sitting on recliner seems to have better pain control he says he thinks he has passed flatus today looks well stable VS and soft dc Eyad hope to advance diet over the weekend Time Spent With Patient Time: Total time managing care of this patient today ____ minutes.
[2023-01-21 16:06] LABS: Glucose, Whole Blood 82 mg/dL (60-115)
[2023-01-21 20:10] LABS: Glucose, Whole Blood 127 mg/dL (60-115)
[2023-01-21] MEDS: Tamsulosin HCL 0.4 MG CAPSULE PO (21:10)
[2023-01-22] VITALS (7 sets, daily range): BP systolic 104–139; BP diastolic 60–68; PULSE 76–93; RESP 16–18; TEMP 36.6–37.6; O2SAT 93–98
[2023-01-22] MEDS: oxyCODONE HCl Immed Release 5 MG TABLET 10 MG PO ×2 (00:09→20:54)
[2023-01-22] MEDS: Acetaminophen 1,000 MG/100 ML PIGGYBACK 400 MG IV ×2 (04:20→11:16)
[2023-01-22] MEDS: Omeprazole 20 MG CAPSULE.DR PO (06:03)
[2023-01-22 07:15] LABS: Glucose, Whole Blood 153 mg/dL (60-115)
--- NOTE | 2023-01-22 07:35 | P.PNIM_ITS ---
Subjective Subjective Date of Service: 01/22/23 Interval History: colon mass,anemia Review of Systems s/p colon surgery yesterday,abd still soar Denies any chest pain or shortness of breath or abdominal pain or fever chills . Physical Exam Vital Signs: Vital Signs: Last Vital Signs Temp 98.5 F 01/22/23 07:14 Pulse 78 01/22/23 07:14 Resp 16 01/22/23 07:14 BP 134/68 01/22/23 07:14 Pulse Ox 93 01/22/23 07:14 O2 Del Method Room Air 01/22/23 07:14 BMI result Body Mass Index 29.0 General: AO X 3, no acute distress Resp:? CTA bilateral CVS: S1,S2,RRR GI: +BS, NT, no distention Skin: No rash Neuro:? motor grossly intact Psych: appropriate affect Objective Data Active Medications Atorvastatin Calcium (Atorvastatin Calcium 10 Mg Tablet) 10 mg PO BEDTIME [facility] Last Admin: 01/20/23 21:05 Dose: Not Given Documented By: CHANDLER Non-Admin Reason: Patient Refused Escitalopram Oxalate (Escitalopram Oxalate 10 Mg Tablet) 10 mg PO DAILY [facility] Last Admin: 01/21/23 07:18 Dose: 10 mg Documented By: PAWAN Fentanyl (Fentanyl Citrate/Pf 100 Mcg/2 Ml Vial) 50 mcg IVPUSH Q5M PRN; Protocol PRN Reason: Pain, Severe (Pain Scale 7-10) Last Admin: 01/20/23 14:46 Dose: 50 mcg Documented By: JESSICA Ferrous Sulfate (Ferrous Sulfate 324 Mg Tablet.) 324 mg PO BID [facility] Last Admin: 01/21/23 07:17 Dose: 324 mg Documented By: PAWAN Glucose (Glucose Gel 15 Gm Gel..Gram.) 15 gm PO Q15M PRN; Protocol PRN Reason: per Hypoglycemia Standing Ord. Hydromorphone HCl (Hydromorphone Hcl 0.5 Mg/0.5 Ml Syringe) 0.5 mg IVPUSH Q5M PRN; Protocol PRN Reason: Pain, Severe (Pain Scale 7-10) Hydroxyzine HCl (Hydroxyzine Hcl 25 Mg Tablet) 25 mg PO TID PRN PRN Reason: itch Last Admin: 01/19/23 21:46 Dose: 25 mg Documented By: RICHARD Dextrose (D10) 250 mls @ 750 mls/hr IV Q15M PRN; Protocol PRN Reason: per Hypoglycemia Standing Ord. Multivitamins 10 ml/ Trace Metals 1 ml/ Amino Acids/Electrolytes/Dextrose 1,440 mls @ 60 mls/hr IV DAILY@1800 [facility] Stop: 01/22/23 17:59 Last Admin: 01/21/23 18:28 Dose: 60 mls/hr Documented By: SMILEY Acetaminophen ([facility]) 1,000 mg in 100 mls @ 400 mls/hr IV Q6H [facility] Stop: 01/22/23 10:29 Last Infusion: 01/22/23 04:49 Dose: 0 mls/hr Documented By: NELLY Insulin Glargine (Insulin Glargine,Hum.Rec.Anlog 100 Unit/Ml 10 Ml Vial) 9 unit SUBCUT DAILY [facility] Last Admin: 01/21/23 08:57 Dose: Not Given Documented By: MARLENI Non-Admin Reason: No Insulin Coverage Insulin Human Lispro (Insulin Lispro 100 Unit/Ml 3 Ml Vial) 0 unit SUBCUT QIDACHS [facility]; Protocol Last Admin: 01/21/23 21:08 Dose: Not Given Documented By: NELLY Non-Admin Reason: No Insulin Coverage Lisinopril (Lisinopril 20 Mg Tablet) 20 mg PO DAILY [facility]; Protocol Last Admin: 01/21/23 07:17 Dose: 20 mg Documented By: PAWAN Metformin HCl (Metformin Hcl 1,000 Mg Tablet) 1,000 mg PO BIDWM [facility] Last Admin: 01/21/23 07:16 Dose: 1,000 mg Documented By: PAWAN Methadone HCl (Methadone Hcl 20 Mg/2 Ml Oral.Conc) 65 mg PO DAILY [facility] Last Admin: 01/21/23 09:01 Dose: 65 mg Documented By: MARLENI Metoprolol Succinate (Metoprolol Succinate Er 50 Mg Tab.Er.24h) 50 mg PO DAILY [facility]; Protocol Last Admin: 01/21/23 07:16 Dose: 50 mg Documented By: PAWAN Morphine Sulfate (Morphine Sulfate 4 Mg/Ml Cartridge) 4 mg IVPUSH Q3H PRN; Protocol PRN Reason: Pain, Severe (Pain Scale 7-10) Last Admin: 01/21/23 16:24 Dose: 4 mg Documented By: SMILEY Naloxone HCl (Naloxone Hcl Nasal 4 Mg [place]) 4 mg NOSTRILALT Q3M PRN PRN Reason: Opioid Overdose Nifedipine (Nifedipine Er 30 Mg Tab.Er.24) 30 mg PO DAILY [facility] Last Admin: 01/21/23 07:18 Dose: 30 mg Documented By: PAWAN Omeprazole (Omeprazole 20 Mg Capsule.Dr) 20 mg PO DAILY@0630 [facility] Last Admin: 01/22/23 06:03 Dose: 20 mg Documented By: NELLY Ondansetron HCl (Ondansetron Hcl 4 Mg/2 Ml Vial) 4 mg IVPUSH ONCE PRN PRN Reason: Nausea and Vomiting Ondansetron HCl (Ondansetron Hcl 4 Mg/2 Ml Vial) 4 mg IVPUSH Q6H PRN PRN Reason: Nausea Oxycodone HCl (Oxycodone Hcl Immed Release 5 Mg Tablet) 5 mg PO Q6H PRN PRN Reason: Pain, Severe (Pain Scale 7-10) Last Admin: 01/20/23 14:40 Dose: 5 mg Documented By: JESSICA Oxycodone HCl (Oxycodone Hcl Immed Release 5 Mg Tablet) 10 mg PO Q4H PRN PRN Reason: Pain, Moderate(Pain Scale 4-6) Last Admin: 01/22/23 00:09 Dose: 10 mg Documented By: ROCÍO Pregabalin (Pregabalin 50 Mg Capsule) 50 mg PO TID [facility] Last Admin: 01/21/23 21:10 Dose: 50 mg Documented By: NELLY Sodium Biphosphate/Sodium Phosphate (Sodium Phosphate,[place]-Dibasic 133 Ml Enema) 133 ml [place] ONCE PRN PRN Reason: Consult order Last Admin: 01/14/23 11:12 Dose: 133 ml Documented By: MARLENI Sodium Chloride (0.9 % Sodium Chloride Flush 3 Ml Syringe) 3 ml IVFLUSH QSHIFT [facility] Last Admin: 01/22/23 00:31 Dose: Not Given Documented By: ROCÍO Non-Admin Reason: IV Running Tamsulosin HCl (Tamsulosin Hcl 0.4 Mg Capsule) 0.4 mg PO BEDTIME [facility] Last Admin: 01/21/23 21:10 Dose: 0.4 mg Documented By: NELLY Labs 01/21/23 09:30 01/21/23 09:30 Labs: Laboratory Results - last 24 hr 01/21/23 01/21/23 01/21/23 09:30 09:30 11:27 MCV 82.5 MCH 25.7 L MCHC 31.2 RDW 14.7 Plt Count 186 MPV 11.2 Absolute Nucleated RBC 0.000 Nucleated RBC % (auto) 0.0 Anion Gap 11 L Estim Creat Clear Calc 62.4 Estimated GFR 56 POC Glucose 101 Random Glucose 103 Calcium 9.0 Phosphorus 3.7 Magnesium 1.7 Albumin 3.1 L Triglycerides 88 01/21/23 01/21/23 01/22/23 15:57 19:57 07:07 MCV MCH MCHC RDW Plt Count MPV Absolute Nucleated RBC Nucleated RBC % (auto) Anion Gap Estim Creat Clear Calc Estimated GFR POC Glucose 82 127 H 153 H Random Glucose Calcium Phosphorus Magnesium Albumin Triglycerides Assessment and Plan (1) Anemia: Status: Acute (2) Colon cancer: Status: Acute Plan 56-year-old male with history of chronic normocytic anemia, insulin-dependent type 2 diabetes, chronic kidney disease stage III, history of opiate use disorder on methadone patient denies recent use, peripheral artery disease with recent admission s/p L TMA, Chronic anemia here with Melana and anemia.. He underwent colonoscopy and noted to have? a mass ans is awaiting surgery once pathology report is available, he has been transfused one unit of RBC, he is unreliable and unlikely to return for surgery if discharged Melana and acute on chronic? anemia due to blood loss s/p 1 unit of RBC. colon mass-biopsy shows adenocarcinoma, postopday2(s/p underwent right colon resection),surgery pathology pending h/h 8.09/02, bmp seems fine seems hesitant to eat, need lot of encouragement. does not eat much yet and passed bm;s Meanwhile added PPN,continue oxycodone for pain control Continue to monitor. Insulin dependence type 2 diabetes : -POC glucose -diabetic diet,Insulin . HypERkalemia: improved. ?opiate use disorder-continue methadone. ?PAD--hold ASA and Plavix. DVT prophylaxis compresion device d/t anemia, and low H?H Full code need for inaptient: colon ca-s/p underwent right colon resection),surgery pathology pending Time Spent With Patient Time: Total time managing care of this patient today ____ minutes. Quality Stroke Does the patient have a stroke diagnosis?: No VTE Prior VTE?: No VTE Risk Level:: Medical - moderate - high VTE Device Contraindication: Treatment Not Indicated VTE Drug Contraindication: Treatment Not Indicated
[2023-01-22] MEDS: 0.9 % Sodium Chloride Flush 3 ML SYRINGE IVFLUSH ×2 (08:28→17:02)
[2023-01-22] MEDS: methADONE HCl 20 MG/2 ML ORAL.CONC 65 MG PO (08:28)
[2023-01-22] MEDS: Escitalopram Oxalate 10 MG TABLET PO (08:28)
[2023-01-22] MEDS: Pregabalin 50 MG CAPSULE PO ×3 (08:28→20:54)
[2023-01-22] MEDS: Morphine Sulfate 4 MG/ML CARTRIDGE IVPUSH (08:44)
[2023-01-22 09:19] LABS: Anion Gap 10 (12-20); Blood Urea Nitrogen 29 mg/dL (9-16); Carbon Dioxide 26 mmol/L (22-29); Chloride 106 mmol/L (96-108); Creatinine Clr Calc Pharmacy 67.5; Estimated Glomerular Filt Rate > 60; Glucose Random 184 mg/dL (60-115); Potassium 4.5 mmol/L (3.3-5.1); Sodium 137 mmol/L (135-145)
[2023-01-22 11:19] LABS: Glucose, Whole Blood 228 mg/dL (60-115)
[2023-01-22] MEDS: Insulin Lispro 100 UNIT/ML 3 ML VIAL SUBCUT ×3 (11:47→20:53)
[2023-01-22 16:16] LABS: Glucose, Whole Blood 211 mg/dL (60-115)
--- NOTE | 2023-01-22 16:29 | P.PNGS_ITS ---
Subjective Subjective Date of Service: 01/22/23 Interval history: feels well, hungry passing gas and stool several times not much pain no nausea with liquids Physical Exam Vital Signs: Vital Signs: Last Vital Signs Temp 98.2 F 01/22/23 15:05 Pulse 76 01/22/23 15:05 Resp 18 01/22/23 15:05 BP 130/60 01/22/23 15:05 Pulse Ox 96 01/22/23 15:05 O2 Del Method Room Air 01/22/23 15:05 BMI result Body Mass Index 29.0 Const: General: cooperative, healthy appearing, comfortable and no acute distress Nutritional Appearance: overweight Resp: Effort & Inspection: normal respiratory effort Auscultation: clear to auscultation bilaterally Cardio: Rate: regular rate Rhythm: regular rhythm GI: Other: abdomen soft nontender and nodistended - incsiionl good some active bowel sounds Objective Data Active Medications Atorvastatin Calcium (Atorvastatin Calcium 10 Mg Tablet) 10 mg PO BEDTIME [facility] Last Admin: 01/20/23 21:05 Dose: Not Given Documented By: CHANDLER Non-Admin Reason: Patient Refused Escitalopram Oxalate (Escitalopram Oxalate 10 Mg Tablet) 10 mg PO DAILY [facility] Last Admin: 01/22/23 08:28 Dose: 10 mg Documented By: BRAD Fentanyl (Fentanyl Citrate/Pf 100 Mcg/2 Ml Vial) 50 mcg IVPUSH Q5M PRN; Protocol PRN Reason: Pain, Severe (Pain Scale 7-10) Last Admin: 01/20/23 14:46 Dose: 50 mcg Documented By: JESSICA Ferrous Sulfate (Ferrous Sulfate 324 Mg Tablet.Dr) 324 mg PO BID [facility] Last Admin: 01/21/23 07:17 Dose: 324 mg Documented By: PAWAN Glucose (Glucose Gel 15 Gm Gel..Gram.) 15 gm PO Q15M PRN; Protocol PRN Reason: per Hypoglycemia Standing Ord. Hydromorphone HCl (Hydromorphone Hcl 0.5 Mg/0.5 Ml Syringe) 0.5 mg IVPUSH Q5M PRN; Protocol PRN Reason: Pain, Severe (Pain Scale 7-10) Hydroxyzine HCl (Hydroxyzine Hcl 25 Mg Tablet) 25 mg PO TID PRN PRN Reason: itch Last Admin: 01/19/23 21:46 Dose: 25 mg Documented By: RICHARD Dextrose (D10) 250 mls @ 750 mls/hr IV Q15M PRN; Protocol PRN Reason: per Hypoglycemia Standing Ord. Multivitamins 10 ml/ Trace Metals 1 ml/ Amino Acids/Electrolytes/Dextrose 1,440 mls @ 60 mls/hr IV DAILY@1800 [facility] Stop: 01/22/23 17:59 Last Admin: 01/21/23 18:28 Dose: 60 mls/hr Documented By: SMILEY Amino Acids/Electrolytes/Dextrose (Clinimix E 4.25%-10%) 1,920 mls @ 80 mls/hr IV DAILY@1800 [facility] Stop: 01/23/23 17:59 Insulin Glargine (Insulin Glargine,Hum.Rec.Anlog 100 Unit/Ml 10 Ml Vial) 9 unit SUBCUT DAILY [facility] Last Admin: 01/21/23 08:57 Dose: Not Given Documented By: MARLENI Non-Admin Reason: No Insulin Coverage Insulin Human Lispro (Insulin Lispro 100 Unit/Ml 3 Ml Vial) 0 unit SUBCUT QIDACHS [facility]; Protocol Last Admin: 01/22/23 11:47 Dose: 2 unit Documented By: BRAD Lisinopril (Lisinopril 20 Mg Tablet) 20 mg PO DAILY [facility]; Protocol Last Admin: 01/21/23 07:17 Dose: 20 mg Documented By: PAWAN Metformin HCl (Metformin Hcl 1,000 Mg Tablet) 1,000 mg PO BIDWM [facility] Last Admin: 01/21/23 07:16 Dose: 1,000 mg Documented By: PAWAN Methadone HCl (Methadone Hcl 20 Mg/2 Ml Oral.Conc) 65 mg PO DAILY [facility] Last Admin: 01/22/23 08:28 Dose: 65 mg Documented By: BRAD Metoprolol Succinate (Metoprolol Succinate Er 50 Mg Tab.Er.24h) 50 mg PO DAILY [facility]; Protocol Last Admin: 01/21/23 07:16 Dose: 50 mg Documented By: PAWAN Morphine Sulfate (Morphine Sulfate 4 Mg/Ml Cartridge) 4 mg IVPUSH Q3H PRN; Protocol PRN Reason: Pain, Severe (Pain Scale 7-10) Last Admin: 01/22/23 08:44 Dose: 4 mg Documented By: BRAD Naloxone HCl (Naloxone Hcl Nasal 4 Mg [place]) 4 mg NOSTRILALT Q3M PRN PRN Reason: Opioid Overdose Nifedipine (Nifedipine Er 30 Mg Tab.Er.24) 30 mg PO DAILY [facility] Last Admin: 01/21/23 07:18 Dose: 30 mg Documented By: PAWAN Omeprazole (Omeprazole 20 Mg Capsule.Dr) 20 mg PO DAILY@0630 [facility] Last Admin: 01/22/23 06:03 Dose: 20 mg Documented By: NELLY Ondansetron HCl (Ondansetron Hcl 4 Mg/2 Ml Vial) 4 mg IVPUSH ONCE PRN PRN Reason: Nausea and Vomiting Ondansetron HCl (Ondansetron Hcl 4 Mg/2 Ml Vial) 4 mg IVPUSH Q6H PRN PRN Reason: Nausea Oxycodone HCl (Oxycodone Hcl Immed Release 5 Mg Tablet) 10 mg PO Q4H PRN PRN Reason: Pain, Moderate(Pain Scale 4-6) Last Admin: 01/22/23 00:09 Dose: 10 mg Documented By: ROCÍO Pregabalin (Pregabalin 50 Mg Capsule) 50 mg PO TID [facility] Last Admin: 01/22/23 14:23 Dose: 50 mg Documented By: JACKELINE Sodium Biphosphate/Sodium Phosphate (Sodium Phosphate,[place]-Dibasic 133 Ml Enema) 133 ml [place] ONCE PRN PRN Reason: Consult order Last Admin: 01/14/23 11:12 Dose: 133 ml Documented By: MARLENI Sodium Chloride (0.9 % Sodium Chloride Flush 3 Ml Syringe) 3 ml IVFLUSH QSHIFT [facility] Last Admin: 01/22/23 08:28 Dose: 3 ml Documented By: BRAD Tamsulosin HCl (Tamsulosin Hcl 0.4 Mg Capsule) 0.4 mg PO BEDTIME [facility] Last Admin: 01/21/23 21:10 Dose: 0.4 mg Documented By: NELLY Labs 01/21/23 09:30 01/22/23 09:00 Labs: Laboratory Results - last 24 hr 01/21/23 01/22/23 01/22/23 19:57 07:07 09:00 Anion Gap 10 L Estim Creat Clear Calc 67.5 Estimated GFR > 60 POC Glucose 127 H 153 H Random Glucose 184 H Calcium 9.0 01/22/23 01/22/23 11:05 16:10 Anion Gap Estim Creat Clear Calc Estimated GFR POC Glucose 228 H 211 H Random Glucose Calcium Procedures Date of Service Date of Service: 01/22/23 Progress Note: A&P Assessment and plan (1) S/P right colectomy: Status: Acute Plan 57 year old male POD3 s/p right colectomy for malig doing well -- passing gas and stool several times and tolerating po diet liquids advance his diet po pain meds dc canales ambulate Time Spent With Patient Time: Total time managing care of this patient today ____ minutes. Quality Stroke Does the patient have a stroke diagnosis?: No VTE Prior VTE?: No VTE Risk Level:: Medical - moderate - high VTE Device Contraindication: Treatment Not Indicated VTE Drug Contraindication: Treatment Not Indicated
[2023-01-22 20:30] LABS: Glucose, Whole Blood 214 mg/dL (60-115)
[2023-01-22] MEDS: Atorvastatin Calcium 10 MG TABLET PO (20:54)
[2023-01-22] MEDS: Tamsulosin HCL 0.4 MG CAPSULE PO (20:55)
[2023-01-23] MEDS: Morphine Sulfate 4 MG/ML CARTRIDGE IVPUSH ×3 (01:16→14:23)
[2023-01-23] MEDS: 0.9 % Sodium Chloride Flush 3 ML SYRINGE IVFLUSH ×3 (01:21→23:41)
[2023-01-23 03:19] VITALS: BP 166/72; PULSE 86; RESP 18; TEMP 36.8; O2SAT 96
[2023-01-23] MEDS: oxyCODONE HCl Immed Release 5 MG TABLET 10 MG PO ×2 (03:19→10:52)
[2023-01-23] MEDS: Omeprazole 20 MG CAPSULE.DR PO (06:06)
[2023-01-23 07:43] VITALS: BP 165/76; PULSE 89; RESP 20; TEMP 36.9; O2SAT 94
[2023-01-23 07:54] LABS: Glucose, Whole Blood 254 mg/dL (60-115)
[2023-01-23] MEDS: methADONE HCl 20 MG/2 ML ORAL.CONC 65 MG PO (08:07)
[2023-01-23] MEDS: Pregabalin 50 MG CAPSULE PO ×3 (08:08→21:29)
[2023-01-23] MEDS: lisinopriL 20 MG TABLET PO (08:08)
[2023-01-23] MEDS: Insulin Lispro 100 UNIT/ML 3 ML VIAL SUBCUT ×3 (08:08→17:15)
[2023-01-23] MEDS: Escitalopram Oxalate 10 MG TABLET PO (08:08)
[2023-01-23] MEDS: Metoprolol Succinate ER 50 MG TAB.ER.24H PO (08:08)
[2023-01-23] MEDS: NIFEdipine ER 30 MG TAB.ER.24 PO (09:49)
[2023-01-23 11:29] LABS: Glucose, Whole Blood 244 mg/dL (60-115)
[2023-01-23 12:00] VITALS: BP 118/58; PULSE 88; RESP 20; TEMP 36.6; O2SAT 98
--- NOTE | 2023-01-23 12:15 | P.PNGS_ITS ---
Subjective Subjective Date of Service: 01/23/23 Interval history: eating drinking pooping and peeing pain better doing well not walking much Physical Exam Vital Signs: Vital Signs: Last Vital Signs Temp 98.5 F 01/23/23 07:43 Pulse 89 01/23/23 07:43 Resp 20 01/23/23 07:43 BP 165/76 H 01/23/23 07:43 Pulse Ox 94 01/23/23 07:43 O2 Del Method Room Air 01/23/23 07:43 BMI result Body Mass Index 29.0 GI: Other: abdomen soft tender midline active bowel sounds Objective Data Active Medications Atorvastatin Calcium (Atorvastatin Calcium 10 Mg Tablet) 10 mg PO BEDTIME [facility] Last Admin: 01/22/23 20:54 Dose: 10 mg Documented By: BETINA Escitalopram Oxalate (Escitalopram Oxalate 10 Mg Tablet) 10 mg PO DAILY [facility] Last Admin: 01/23/23 08:08 Dose: 10 mg Documented By: BRAD Fentanyl (Fentanyl Citrate/Pf 100 Mcg/2 Ml Vial) 50 mcg IVPUSH Q5M PRN; Protocol PRN Reason: Pain, Severe (Pain Scale 7-10) Last Admin: 01/20/23 14:46 Dose: 50 mcg Documented By: JESSICA Ferrous Sulfate (Ferrous Sulfate 324 Mg Tablet.Dr) 324 mg PO BID [facility] Last Admin: 01/21/23 07:17 Dose: 324 mg Documented By: PAWAN Glucose (Glucose Gel 15 Gm Gel..Gram.) 15 gm PO Q15M PRN; Protocol PRN Reason: per Hypoglycemia Standing Ord. Hydromorphone HCl (Hydromorphone Hcl 0.5 Mg/0.5 Ml Syringe) 0.5 mg IVPUSH Q5M PRN; Protocol PRN Reason: Pain, Severe (Pain Scale 7-10) Hydroxyzine HCl (Hydroxyzine Hcl 25 Mg Tablet) 25 mg PO TID PRN PRN Reason: itch Last Admin: 01/19/23 21:46 Dose: 25 mg Documented By: RICHARD Insulin Glargine (Insulin Glargine,Hum.Rec.Anlog 100 Unit/Ml 10 Ml Vial) 9 unit SUBCUT DAILY [facility] Last Admin: 01/21/23 08:57 Dose: Not Given Documented By: MARLENI Non-Admin Reason: No Insulin Coverage Insulin Human Lispro (Insulin Lispro 100 Unit/Ml 3 Ml Vial) 0 unit SUBCUT QIDACHS [facility]; Protocol Last Admin: 01/23/23 11:44 Dose: 4 unit Documented By: PAWAN Lisinopril (Lisinopril 20 Mg Tablet) 20 mg PO DAILY [facility]; Protocol Last Admin: 01/23/23 08:08 Dose: 20 mg Documented By: BRAD Metformin HCl (Metformin Hcl 1,000 Mg Tablet) 1,000 mg PO BIDWM [facility] Last Admin: 01/21/23 07:16 Dose: 1,000 mg Documented By: PAWAN Methadone HCl (Methadone Hcl 20 Mg/2 Ml Oral.Conc) 65 mg PO DAILY [facility] Last Admin: 01/23/23 08:07 Dose: 65 mg Documented By: BRAD Metoprolol Succinate (Metoprolol Succinate Er 50 Mg Tab.Er.24h) 50 mg PO DAILY [facility]; Protocol Last Admin: 01/23/23 08:08 Dose: 50 mg Documented By: BRAD Morphine Sulfate (Morphine Sulfate 4 Mg/Ml Cartridge) 4 mg IVPUSH Q3H PRN; Protocol PRN Reason: Pain, Severe (Pain Scale 7-10) Last Admin: 01/23/23 06:16 Dose: 4 mg Documented By: CODY Naloxone HCl (Naloxone Hcl Nasal 4 Mg [place]) 4 mg NOSTRILALT Q3M PRN PRN Reason: Opioid Overdose Nifedipine (Nifedipine Er 30 Mg Tab.Er.24) 30 mg PO DAILY [facility] Last Admin: 01/23/23 09:49 Dose: 30 mg Documented By: BRAD Omeprazole (Omeprazole 20 Mg Capsule.Dr) 20 mg PO DAILY@0630 [facility] Last Admin: 01/23/23 06:06 Dose: 20 mg Documented By: CODY Ondansetron HCl (Ondansetron Hcl 4 Mg/2 Ml Vial) 4 mg IVPUSH ONCE PRN PRN Reason: Nausea and Vomiting Ondansetron HCl (Ondansetron Hcl 4 Mg/2 Ml Vial) 4 mg IVPUSH Q6H PRN PRN Reason: Nausea Oxycodone HCl (Oxycodone Hcl Immed Release 5 Mg Tablet) 10 mg PO Q4H PRN PRN Reason: Pain, Moderate(Pain Scale 4-6) Last Admin: 01/23/23 10:52 Dose: 10 mg Documented By: PAWAN Pregabalin (Pregabalin 50 Mg Capsule) 50 mg PO TID [facility] Last Admin: 01/23/23 08:08 Dose: 50 mg Documented By: BRAD Sodium Biphosphate/Sodium Phosphate (Sodium Phosphate,[place]-Dibasic 133 Ml Enema) 133 ml [place] ONCE PRN PRN Reason: Consult order Last Admin: 01/14/23 11:12 Dose: 133 ml Documented By: MARLENI Sodium Chloride (0.9 % Sodium Chloride Flush 3 Ml Syringe) 3 ml IVFLUSH QSHIFT [facility] Last Admin: 01/23/23 08:08 Dose: Not Given Documented By: BRAD Non-Admin Reason: IV Running Tamsulosin HCl (Tamsulosin Hcl 0.4 Mg Capsule) 0.4 mg PO BEDTIME [facility] Last Admin: 01/22/23 20:55 Dose: 0.4 mg Documented By: BETINA Labs 01/21/23 09:30 01/22/23 09:00 Labs: Laboratory Results - last 24 hr 01/22/23 01/22/23 01/23/23 16:10 20:25 07:48 POC Glucose 211 H 214 H 254 H 01/23/23 11:24 POC Glucose 244 H Procedures Date of Service Date of Service: 01/23/23 Progress Note: A&P Assessment and plan (1) S/P right colectomy: Status: Acute Assessment and Plan: pod#4 doing great, regular diet, po pain meds, canales dc, needs to ambulate and po pain meds and plan to dc to rehab facility tomorrow hopefully Time Spent With Patient Time: Total time managing care of this patient today ____ minutes. Quality Stroke Does the patient have a stroke diagnosis?: No VTE Prior VTE?: No VTE Risk Level:: Medical - moderate - high VTE Device Contraindication: Treatment Not Indicated VTE Drug Contraindication: Treatment Not Indicated
--- NOTE | 2023-01-23 12:30 | P.PNIM_ITS ---
Subjective Subjective Date of Service: 01/23/23 Interval History: colon mass,anemia Review of Systems s/p colon surgery yesterday,abd soarness seems improving ,tolerating diet Denies any chest pain or shortness of breath or abdominal pain or fever chills . Physical Exam Vital Signs: Vital Signs: Last Vital Signs Temp 98.5 F 01/23/23 07:43 Pulse 89 01/23/23 07:43 Resp 20 01/23/23 07:43 BP 165/76 H 01/23/23 07:43 Pulse Ox 94 01/23/23 07:43 O2 Del Method Room Air 01/23/23 07:43 BMI result Body Mass Index 29.0 General: AO X 3, no acute distress Resp:? CTA bilateral CVS: S1,S2,RRR GI: +BS, NT, no distention Skin: No rash Neuro:? motor grossly intact Psych: appropriate affect Objective Data Active Medications Atorvastatin Calcium (Atorvastatin Calcium 10 Mg Tablet) 10 mg PO BEDTIME [facility] Last Admin: 01/22/23 20:54 Dose: 10 mg Documented By: BETINA Escitalopram Oxalate (Escitalopram Oxalate 10 Mg Tablet) 10 mg PO DAILY [facility] Last Admin: 01/23/23 08:08 Dose: 10 mg Documented By: BRAD Fentanyl (Fentanyl Citrate/Pf 100 Mcg/2 Ml Vial) 50 mcg IVPUSH Q5M PRN; Protocol PRN Reason: Pain, Severe (Pain Scale 7-10) Last Admin: 01/20/23 14:46 Dose: 50 mcg Documented By: JESSICA Ferrous Sulfate (Ferrous Sulfate 324 Mg Tablet.) 324 mg PO BID [facility] Last Admin: 01/21/23 07:17 Dose: 324 mg Documented By: PAWAN Glucose (Glucose Gel 15 Gm Gel..Gram.) 15 gm PO Q15M PRN; Protocol PRN Reason: per Hypoglycemia Standing Ord. Hydromorphone HCl (Hydromorphone Hcl 0.5 Mg/0.5 Ml Syringe) 0.5 mg IVPUSH Q5M PRN; Protocol PRN Reason: Pain, Severe (Pain Scale 7-10) Hydroxyzine HCl (Hydroxyzine Hcl 25 Mg Tablet) 25 mg PO TID PRN PRN Reason: itch Last Admin: 01/19/23 21:46 Dose: 25 mg Documented By: RICHARD Insulin Glargine (Insulin Glargine,Hum.Rec.Anlog 100 Unit/Ml 10 Ml Vial) 9 unit SUBCUT DAILY [facility] Last Admin: 01/21/23 08:57 Dose: Not Given Documented By: MARLENI Non-Admin Reason: No Insulin Coverage Insulin Human Lispro (Insulin Lispro 100 Unit/Ml 3 Ml Vial) 0 unit SUBCUT QIDACHS [facility]; Protocol Last Admin: 01/23/23 11:44 Dose: 4 unit Documented By: PAWAN Lisinopril (Lisinopril 20 Mg Tablet) 20 mg PO DAILY [facility]; Protocol Last Admin: 01/23/23 08:08 Dose: 20 mg Documented By: BRAD Metformin HCl (Metformin Hcl 1,000 Mg Tablet) 1,000 mg PO BIDWM [facility] Last Admin: 01/21/23 07:16 Dose: 1,000 mg Documented By: PAWAN Methadone HCl (Methadone Hcl 20 Mg/2 Ml Oral.Conc) 65 mg PO DAILY [facility] Last Admin: 01/23/23 08:07 Dose: 65 mg Documented By: BRAD Metoprolol Succinate (Metoprolol Succinate Er 50 Mg Tab.Er.24h) 50 mg PO DAILY [facility]; Protocol Last Admin: 01/23/23 08:08 Dose: 50 mg Documented By: BRAD Morphine Sulfate (Morphine Sulfate 4 Mg/Ml Cartridge) 4 mg IVPUSH Q3H PRN; Protocol PRN Reason: Pain, Severe (Pain Scale 7-10) Last Admin: 01/23/23 06:16 Dose: 4 mg Documented By: CODY Naloxone HCl (Naloxone Hcl Nasal 4 Mg [place]) 4 mg NOSTRILALT Q3M PRN PRN Reason: Opioid Overdose Nifedipine (Nifedipine Er 30 Mg Tab.Er.24) 30 mg PO DAILY [facility] Last Admin: 01/23/23 09:49 Dose: 30 mg Documented By: BRAD Omeprazole (Omeprazole 20 Mg Capsule.Dr) 20 mg PO DAILY@0630 [facility] Last Admin: 01/23/23 06:06 Dose: 20 mg Documented By: CODY Ondansetron HCl (Ondansetron Hcl 4 Mg/2 Ml Vial) 4 mg IVPUSH ONCE PRN PRN Reason: Nausea and Vomiting Ondansetron HCl (Ondansetron Hcl 4 Mg/2 Ml Vial) 4 mg IVPUSH Q6H PRN PRN Reason: Nausea Oxycodone HCl (Oxycodone Hcl Immed Release 5 Mg Tablet) 10 mg PO Q4H PRN PRN Reason: Pain, Moderate(Pain Scale 4-6) Last Admin: 01/23/23 10:52 Dose: 10 mg Documented By: PAWAN Pregabalin (Pregabalin 50 Mg Capsule) 50 mg PO TID [facility] Last Admin: 01/23/23 08:08 Dose: 50 mg Documented By: BRAD Sodium Biphosphate/Sodium Phosphate (Sodium Phosphate,[place]-Dibasic 133 Ml Enema) 133 ml [place] ONCE PRN PRN Reason: Consult order Last Admin: 01/14/23 11:12 Dose: 133 ml Documented By: MARLENI Sodium Chloride (0.9 % Sodium Chloride Flush 3 Ml Syringe) 3 ml IVFLUSH QSHIFT [facility] Last Admin: 01/23/23 08:08 Dose: Not Given Documented By: BRAD Non-Admin Reason: IV Running Tamsulosin HCl (Tamsulosin Hcl 0.4 Mg Capsule) 0.4 mg PO BEDTIME [facility] Last Admin: 01/22/23 20:55 Dose: 0.4 mg Documented By: BETINA Labs 01/21/23 09:30 01/22/23 09:00 Labs: Laboratory Results - last 24 hr 01/22/23 01/22/23 01/23/23 16:10 20:25 07:48 POC Glucose 211 H 214 H 254 H 01/23/23 11:24 POC Glucose 244 H Assessment and Plan (1) Anemia: Status: Acute (2) Colon cancer: Status: Acute Plan 56-year-old male with history of chronic normocytic anemia, insulin-dependent type 2 diabetes, chronic kidney disease stage III, history of opiate use disorder on methadone patient denies recent use, peripheral artery disease with recent admission s/p L TMA, Chronic anemia here with Melana and anemia.. He underwent colonoscopy and noted to have? a mass ans is awaiting surgery once pathology report is available, he has been transfused one unit of RBC, he is unreliable and unlikely to return for surgery if discharged Melana and acute on chronic? anemia due to blood loss s/p 1 unit of RBC. colon mass-biopsy shows adenocarcinoma, postopday2(s/p underwent right colon resection),surgery pathology pending h/h 8.09/02, bmp seems fine seems hesitant to eat, need lot of encouragement. diet started ,eating ,passed bm yesterday stopped ppn,continue oxycodone for pain control Continue to monitor. Insulin dependence type 2 diabetes : -POC glucose -diabetic diet,Insulin . HypERkalemia: improved. ?opiate use disorder-continue methadone. ?PAD--hold ASA and Plavix. will d/w surgery to start her meds back. DVT prophylaxis compresion device d/t anemia. scd Full code need for inaptient: colon ca-s/p underwent right colon resection),surgery pathology pending ,awaiting placement for rehab. Time Spent With Patient Time: Total time managing care of this patient today ____ minutes. Quality Stroke Does the patient have a stroke diagnosis?: No VTE Prior VTE?: No VTE Risk Level:: Medical - moderate - high VTE Device Contraindication: Treatment Not Indicated VTE Drug Contraindication: Treatment Not Indicated
[2023-01-23 15:32] VITALS: BP 116/58; PULSE 83; RESP 20; TEMP 36.6; O2SAT 96
[2023-01-23 16:07] LABS: Glucose, Whole Blood 237 mg/dL (60-115)
[2023-01-23] MEDS: metFORMIN HCl 1,000 MG TABLET 1000 MG PO (17:16)
[2023-01-23 21:08] LABS: Glucose, Whole Blood 186 mg/dL (60-115)
[2023-01-23] MEDS: Tamsulosin HCL 0.4 MG CAPSULE PO (21:29)
[2023-01-23] MEDS: Atorvastatin Calcium 10 MG TABLET PO (21:29)
--- NOTE | 2023-01-23 22:17 | PC.NURSE ---
Patient slept most of this afternoon,denied need for pain meds
[2023-01-23 22:38] VITALS: BP 127/53; PULSE 74; RESP 20; TEMP 36.6; O2SAT 95
[2023-01-24 04:00] VITALS: BP 110/56; PULSE 82; RESP 18; TEMP 37.1; O2SAT 93
[2023-01-24] MEDS: oxyCODONE HCl Immed Release 5 MG TABLET 10 MG PO ×2 (05:53→11:32)
[2023-01-24] MEDS: Omeprazole 20 MG CAPSULE.DR PO (05:54)
[2023-01-24 07:24] VITALS: BP 109/58; PULSE 82; RESP 22; TEMP 36.9; O2SAT 92
[2023-01-24 07:41] LABS: Glucose, Whole Blood 131 mg/dL (60-115)
--- NOTE | 2023-01-24 09:22 | HO.POSTANES ---
Post Anesthesia Evaluation Post Anesthesia Evaluation Date of Service: 01/21/23 Vital Signs: Vital Signs Temp Pulse Resp BP Pulse Ox O2 Del Method 01/24/23 07:24 98.4 F 82 22 H 109/58 L 92 Room Air 01/24/23 04:00 98.7 F 82 18 110/56 L 93 Room Air 01/23/23 22:38 97.8 F 74 20 127/53 L 95 Room Air Anesthesia: General Endotracheal-GETA Mental Status: Awake Pain Control: Satisfactory Nausea/Vomiting: None Hydration: Adequate Anesthesia-Related Issues: No Anes. Related Issues
[2023-01-24] MEDS: Clopidogrel Bisulfate 75 MG TABLET PO (09:39)
[2023-01-24] MEDS: lisinopriL 20 MG TABLET PO (09:39)
[2023-01-24] MEDS: Pregabalin 50 MG CAPSULE PO ×2 (09:39→14:38)
[2023-01-24] MEDS: 0.9 % Sodium Chloride Flush 3 ML SYRINGE IVFLUSH (09:39)
[2023-01-24] MEDS: Metoprolol Succinate ER 50 MG TAB.ER.24H PO (09:39)
[2023-01-24] MEDS: Aspirin Enteric Coated 81 MG TABLET.DR PO (09:39)
[2023-01-24] MEDS: Escitalopram Oxalate 10 MG TABLET PO (09:39)
[2023-01-24] MEDS: metFORMIN HCl 1,000 MG TABLET 1000 MG PO ×2 (09:39→16:41)
[2023-01-24] MEDS: methADONE HCl 20 MG/2 ML ORAL.CONC 65 MG PO (09:40)
[2023-01-24] MEDS: NIFEdipine ER 30 MG TAB.ER.24 PO (09:40)
--- NOTE | 2023-01-24 11:03 | MHC.CLN ---
F/U PPN DISCONTINUED. TOLERATING DIABETIC DIET AND APPEARS TO BE EATING WELL. INCREASING KCALS. DIET=DIABETIC 2000 KCALS. FOLLOW FOR INTAKE/DIET TOLERANCE.
--- NOTE | 2023-01-24 11:30 | MHC.CM.PN ---
PATIENT TO RETURN HOME WITH RESUMPTION OF [facility]. LAST DOSE LETTER UPLOADED TO AGENCY AND PATIENT HAS ORIGINAL RN MADE AWARE. PATIENT FEELS HIS DAUGHTER CAN TRANSPORT CM AWAITING DC SUMMARY IMM 01/23 IN CHART
[2023-01-24] MEDS: Insulin Lispro 100 UNIT/ML 3 ML VIAL SUBCUT ×2 (11:33→16:41)
--- NOTE | 2023-01-24 11:34 | PM.PNGS ---
Subjective Subjective Date of Service: 01/24/23 Interval history: Continues to well Says he has good flatus and good BMs Tolerating diet well Sore on incisions but much improved Physical Exam Vital Signs: Vital Signs: Last Vital Signs Temp 98.4 F 01/24/23 07:24 Pulse 82 01/24/23 07:24 Resp 22 H 01/24/23 07:24 BP 109/58 L 01/24/23 07:24 Pulse Ox 92 01/24/23 07:24 O2 Del Method Room Air 01/24/23 07:24 BMI result Body Mass Index 29.0 Const: General: comfortable and no acute distress Resp: Effort & Inspection: normal respiratory effort Cardio: Rate: regular rate GI: Other: Incisions clean and dry Palpation (GI): Soft to palpation, not firm and nontender Objective Data Active Medications Aspirin (Aspirin Enteric Coated 81 Mg Tablet.) 81 mg PO DAILY [facility] Last Admin: 01/24/23 09:39 Dose: 81 mg Documented By: SHELTON Atorvastatin Calcium (Atorvastatin Calcium 10 Mg Tablet) 10 mg PO BEDTIME [facility] Last Admin: 01/23/23 21:29 Dose: 10 mg Documented By: BETINA Clopidogrel Bisulfate (Clopidogrel Bisulfate 75 Mg Tablet) 75 mg PO DAILY [facility] Last Admin: 01/24/23 09:39 Dose: 75 mg Documented By: SHELTON Escitalopram Oxalate (Escitalopram Oxalate 10 Mg Tablet) 10 mg PO DAILY [facility] Last Admin: 01/24/23 09:39 Dose: 10 mg Documented By: SHELTON Fentanyl (Fentanyl Citrate/Pf 100 Mcg/2 Ml Vial) 50 mcg IVPUSH Q5M PRN; Protocol PRN Reason: Pain, Severe (Pain Scale 7-10) Last Admin: 01/20/23 14:46 Dose: 50 mcg Documented By: JESSICA Ferrous Sulfate (Ferrous Sulfate 324 Mg Tablet.) 324 mg PO BID [facility] Last Admin: 01/21/23 07:17 Dose: 324 mg Documented By: PAWAN Glucose (Glucose Gel 15 Gm Gel..Gram.) 15 gm PO Q15M PRN; Protocol PRN Reason: per Hypoglycemia Standing Ord. Hydromorphone HCl (Hydromorphone Hcl 0.5 Mg/0.5 Ml Syringe) 0.5 mg IVPUSH Q5M PRN; Protocol PRN Reason: Pain, Severe (Pain Scale 7-10) Hydroxyzine HCl (Hydroxyzine Hcl 25 Mg Tablet) 25 mg PO TID PRN PRN Reason: itch Last Admin: 01/19/23 21:46 Dose: 25 mg Documented By: RICHARD Insulin Glargine (Insulin Glargine,Hum.Rec.Anlog 100 Unit/Ml 10 Ml Vial) 9 unit SUBCUT DAILY [facility] Last Admin: 01/21/23 08:57 Dose: Not Given Documented By: MARLENI Non-Admin Reason: No Insulin Coverage Insulin Human Lispro (Insulin Lispro 100 Unit/Ml 3 Ml Vial) 0 unit SUBCUT QIDACHS [facility]; Protocol Last Admin: 01/24/23 11:33 Dose: 4 unit Documented By: PAWAN Lisinopril (Lisinopril 20 Mg Tablet) 20 mg PO DAILY [facility]; Protocol Last Admin: 01/24/23 09:39 Dose: 20 mg Documented By: SHELTON Metformin HCl (Metformin Hcl 1,000 Mg Tablet) 1,000 mg PO BIDWM [facility] Last Admin: 01/24/23 09:39 Dose: 1,000 mg Documented By: SHELTON Methadone HCl (Methadone Hcl 20 Mg/2 Ml Oral.Conc) 65 mg PO DAILY [facility] Last Admin: 01/24/23 09:40 Dose: 65 mg Documented By: SHELTON Metoprolol Succinate (Metoprolol Succinate Er 50 Mg Tab.Er.24h) 50 mg PO DAILY [facility]; Protocol Last Admin: 01/24/23 09:39 Dose: 50 mg Documented By: SHELTON Morphine Sulfate (Morphine Sulfate 4 Mg/Ml [place]ridge) 4 mg IVPUSH Q3H PRN; Protocol PRN Reason: Pain, Severe (Pain Scale 7-10) Last Admin: 01/23/23 14:23 Dose: 4 mg Documented By: BRAD Naloxone HCl (Naloxone Hcl Nasal 4 Mg [place]) 4 mg NOSTRILALT Q3M PRN PRN Reason: Opioid Overdose Nifedipine (Nifedipine Er 30 Mg Tab.Er.24) 30 mg PO DAILY [facility] Last Admin: 01/24/23 09:40 Dose: 30 mg Documented By: SHELTON Omeprazole (Omeprazole 20 Mg Capsule.Dr) 20 mg PO DAILY@0630 [facility] Last Admin: 01/24/23 05:54 Dose: 20 mg Documented By: CANELO Ondansetron HCl (Ondansetron Hcl 4 Mg/2 Ml Vial) 4 mg IVPUSH ONCE PRN PRN Reason: Nausea and Vomiting Ondansetron HCl (Ondansetron Hcl 4 Mg/2 Ml Vial) 4 mg IVPUSH Q6H PRN PRN Reason: Nausea Oxycodone HCl (Oxycodone Hcl Immed Release 5 Mg Tablet) 10 mg PO Q4H PRN PRN Reason: Pain, Moderate(Pain Scale 4-6) Last Admin: 01/24/23 11:32 Dose: 10 mg Documented By: PAWAN Pregabalin (Pregabalin 50 Mg Capsule) 50 mg PO TID [facility] Last Admin: 01/24/23 09:39 Dose: 50 mg Documented By: SHELTON Sodium Biphosphate/Sodium Phosphate (Sodium Phosphate,[place]-Dibasic 133 Ml Enema) 133 ml [place] ONCE PRN PRN Reason: Consult order Last Admin: 01/14/23 11:12 Dose: 133 ml Documented By: MARLENI Sodium Chloride (0.9 % Sodium Chloride Flush 3 Ml Syringe) 3 ml IVFLUSH QSHIFT [facility] Last Admin: 01/24/23 09:39 Dose: 3 ml Documented By: SHELTON Tamsulosin HCl (Tamsulosin Hcl 0.4 Mg Capsule) 0.4 mg PO BEDTIME [facility] Last Admin: 01/23/23 21:29 Dose: 0.4 mg Documented By: ALVARADOIT Labs 01/21/23 09:30 01/22/23 09:00 Labs: Laboratory Results - last 24 hr 01/23/23 01/23/23 01/24/23 16:00 21:02 07:28 POC Glucose 237 H 186 H 131 H Procedures Date of Service Date of Service: 01/24/23 Progress Note: A&P Assessment and plan (1) S/P right colectomy: Status: Acute Assessment and Plan: Doing well postop Good GI function Incision clean and dry Be being arranged for discharge No lifting allowed Baseline CEA level ordered Follow-up in the office for removal of junaid Final path report pending Time Spent With Patient Time: Total time managing care of this patient today ____ minutes. Quality Stroke Does the patient have a stroke diagnosis?: No VTE Prior VTE?: No VTE Risk Level:: Medical - moderate - high VTE Device Contraindication: Treatment Not Indicated VTE Drug Contraindication: Treatment Not Indicated
[2023-01-24 11:44] LABS: Glucose, Whole Blood 232 mg/dL (60-115)
[2023-01-24 12:00] VITALS: BP 122/60; PULSE 80; RESP 20; TEMP 36.8; O2SAT 95
--- NOTE | 2023-01-24 13:00 | W.MHC.F2F ---
Service Date Service Date: 01/24/23 Encounter Date of encounter: 01/24/23 Encounter: Melena, anemia Colon cancer, generalized weak Reasons for Services Signs and symptoms assessed: Monitor for blood in the stool, new worsening abdominal pain Reason for residential: medication management, medication treatment and teach disease management Reason for physical therapy: home safety and mobility, therapeutic exercises, restore joint function, gait/transfer training, assess need for DME, ADL training, energy conservation and other MD Overseeing Care: Twan Nunez Homebound: Leaving the home is medically contraindicated at this time without the asist of a device and/or another person due th the listed conditions above and below. Reason homebound: weakness related to hospital stay Homebound supporting statement: Patient has multiple comorbidities including colon cancer, anemia-for need help to go to appointments, blood draws, needed PT. Certification: Based on the above findings, I certify that this patient is confined to the home and needs intermittent residential care, physical therapy and/or speech therapy, or continues to need occupational therapy. The patient is under my care, and I have initiated the establishment of the plan of care. The patient will be followed by a physician who will periodically review the plan of care. Time Spent With Patient Time: Total time managing care of this patient today ____ minutes.
--- NOTE | 2023-01-24 13:12 | PM.DS ---
DS: Providers Provider Date of Service: 01/24/23 Date of admission: 01/11/23 18:02 Date of discharge: 01/24/23 Primary care physician: Twan Nunez MD Consults: 01/14/23 13:34 Consult to General Surgery Routine Consulting [place] [facility] Reason for consultation: colon mass, Attending physician on discharge: Yobany Felder Discharging clinician: Yobany Felder DS: Diagnosis Discharge Diagnosis (1) S/P right colectomy: Status: Acute (2) Normocytic anemia: Status: Acute (3) Acute kidney injury: Status: Acute (4) Painless rectal bleeding: Status: Acute (5) Colon cancer: Status: Acute DS: Summary Hospital Course Hospital Course: 57-year-old male with history of chronic normocytic anemia, insulin-dependent type 2 diabetes, chronic kidney disease stage III, history of opiate use disorder on methadone patient denies recent use, peripheral artery disease s/p transmetarsal amputation of the left leg, history of chronic anemia baseline hemoglobin of 8 and sent here from PCP office d/t black stool and hemoglobin, she take Plavix. Hospital course: Patient was admitted for Melana and acute on chronic? anemia?: Underwent colonoscopy noted to have colon mass-biopsy sent, patient also received 1 PRBC for anemia: Subsequently patient biopsy showed adenocarcinoma-surgery was consulted patient is status post right colon resection, surgical pathology pending. Patient also had AMY initially possibly related to dehydration seems improved with hydration. Anemia patient's H&H is stable around 8.1 range. Eating better, passing bowels. Surgery recommended outpatient follow-up. Patient does not want to go to rehab patient is subsequently going home with [facility]. Plan: Patient was strongly advised to follow up with surgery outpatient if with surgery pathology results and also need possible outpatient oncology eval. Monitor CBC and BMP outpatient . Outpatient follow-up with PCP. Above management discussed the patient detail length he understand in agreement with the above plan, time spent 50 minute. Time Spent with Patient Time attestation: Total time managing care of this patient today ____ minutes. Discharge coordination time: Greater than 30 minutes Quality: Safe Use of Opioids Does Pt have an Active Cancer Diagnosis on the Problem List?: Yes Opioid Measure Date for [facility] Report: 12/25/22 Opioid Measure Time for [facility] Report: 13:16 Quality: Stroke Does the patient have a stroke diagnosis?: No Physical Exam Vital Signs: Vital Signs: Last Vital Signs Temp 98.3 F 01/24/23 12:00 Pulse 80 01/24/23 12:00 Resp 20 01/24/23 12:00 BP 122/60 01/24/23 12:00 Pulse Ox 95 01/24/23 12:00 O2 Del Method Room Air 01/24/23 12:00 BMI result Body Mass Index 29.0 General: AO X 3, no acute distress Resp:? CTA bilateral CVS: S1,S2,RRR GI: +BS, NT, no distention Skin: No rash Neuro:? motor grossly intact Psych: appropriate affect DS: Data Data Completed and Pending Completed studies during hospitalization [Text1]: Pending at discharge 01/13/23 13:22 Surgical [PTH] Routine 01/14/23 13:22 Surgical [PTH] Routine Procedures Detachment at Left 4th Toe, Complete, Open Approach (04/04/22) Detachment at Left Foot, Partial 1st Ray, Open Approach (05/12/22) Detachment at Left Foot, Partial 2nd Ray, Open Approach (05/12/22) Detachment at Left Foot, Partial 3rd Ray, Open Approach (05/12/22) Detachment at Left Foot, Partial 4th Ray, Open Approach (05/12/22) Detachment at Left Foot, Partial 5th Ray, Open Approach (05/12/22) Dilation of Left Anterior Tibial Artery using Drug-Coated Balloon, Percutaneous Approach (05/12/22) Excision of Left Foot Skin, External Approach (04/04/22) Insertion of Infusion Device into Superior Vena Cava, Percutaneous Approach (04/04/22) Insertion of Tunneled Vascular Access Device into Chest Subcutaneous Tissue and Fascia, Percutaneous Approach (04/04/22) Transfusion of Nonautologous Red Blood Cells into Peripheral Vein, Percutaneous Approach (06/17/22) Ultrasonography of Superior Vena Cava, Guidance (04/04/22) Pending studies at discharge: Pending at discharge 01/20/23 13:12 Surgical [PTH] Stat Labs on day of discharge: Laboratory Results - last 24 hr 01/23/23 01/23/23 01/24/23 16:00 21:02 07:28 POC Glucose 237 H 186 H 131 H Carcinoembryonic Ag 01/24/23 01/24/23 11:23 12:04 POC Glucose 232 H Carcinoembryonic Ag 2.20 Imaging Chest x-ray: Radiologist's impression: ITS Impressions Abdomen/Pelvis CT 01/11/23 15:06 IMPRESSION: 1. Similar appearance of the kidneys bilaterally without definitive acute abnormality. Probable small renal cysts bilaterally without significant change not requiring follow-up. There is mild increased mural thickening in the urinary bladder which could be secondary to a lower degree of distention. Mild cystitis cannot be completely excluded. No focal abnormality. 2. No significant colorectal abnormality or change. Normal bleeding or persists, correlation with physical exam and colonoscopy is recommended. Discharge Plan Discharge Anticipated Discharge Date/Time: 01/24/23 10:47 Patient Disposition: Home Health Service Discharge Diagnosis: Melana and acute on chronic anemia ,colon cancer s/p colon surgery Referrals: [facility] [Other] - 1 Week (DISCHARGED HOME WITH RESUMPTION OF YOUR [facility]) Sravani Ruvalcaba MD [Physician] - 1 Week (follow up outpatiently) Parish Santana MD [Physician] - 1 Week (follow up outpatient ) Twan Nunez MD [Primary Care Provider] - 1 Week Discharge Medications: New oxycodone 10 mg tablet 10 mg PO BID PRN (Reason: pain) Qty: 10 0RF Rx Instructions: Partial Fill upon patient request. docusate sodium [Colace] 100 mg capsule 100 mg PO DAILY PRN (Reason: constipation) Qty: 10 0RF polyethylene glycol 3350 [Miralax] 17 gram/dose powder 17 g PO DAILY PRN (Reason: constipation) Qty: 119 0RF Continued clopidogrel 75 mg tablet 1 tab PO DAILY tamsulosin 0.4 mg capsule 1 cap PO BEDTIME insulin aspart U-100 [Novolog FlexPen U-100 Insulin] 100 unit/mL (3 mL) insulin pen 1 sliding scale dose subcut DAILY ferrous sulfate 324 mg (65 mg iron) tablet,delayed release (DR/EC) 1 tab PO BID methadone 10 mg/mL Concentrate 65 mg PO DAILY lisinopril 20 mg tablet 20 mg PO DAILY atorvastatin 10 mg tablet 10 mg PO BEDTIME metoprolol succinate 50 mg tablet extended release 24 hr 50 mg PO DAILY nifedipine 30 mg tablet extended release 30 mg PO DAILY aspirin 81 mg tablet,delayed release (DR/EC) 81 mg PO DAILY citalopram 20 mg tablet 20 mg PO DAILY metformin 1,000 mg tablet 1,000 mg PO BID omeprazole 20 mg Capsule,Delayed Release(Dr/Ec) 20 mg PO DAILY@0630 hydroxyzine pamoate 25 mg Capsule 25 mg PO TID PRN (Reason: itch) pregabalin 50 mg capsule 50 mg PO TID naloxone [Narcan] 4 mg/actuation [place],Non-Aerosol 4 mg INTRANASAL Q3M PRN (Reason: Opioid Overdose) Rx Instructions: spray 1 dose into ONE nostril; alternate nostrils w each dose until help arrives insulin glargine [Lantus U-100 Insulin] 100 unit/mL solution 9 unit subcut DAILY Discharge Orders: Discharge Order (Routine); Ordered 01/24/23 Ordered By: Yobany Felder Diet: Advance to usual diet Activity on Discharge: As tolerated Stand Alone Forms: Patient Portal Discharge page Activity Restrictions/Additional Instructions: If the incision area is tender, you may apply an ice pack for short intervals (No more than 20 minutes on, followed by at least 20 minutes off). Do not apply heat. Do not use creams, lotions, or topical antibiotics unless instructed to do so by your surgeon. These can cause infection or allergic reaction. No lifting more than 20 lbs Okay to shower Okay to change dressings with gauze No strenuous activities Call the office for follow-up in 2 weeks - with Dr. Santana Call Your Doctor If: -Your temperature exceeds 101.5? F -You experience excessive pain or swelling -You have an unexpected reaction to medication -You have excessive bleeding -You experience continued vomiting/nausea -Your incision begins to separate -Your incision shows signs of infection such as increased redness, swelling, excessive pain, drainage (light blood or clear fluid is normal) or heat Care Plan Goals: Patient was admitted for Melana and acute on chronic? anemia?: Underwent colonoscopy noted to have colon mass-biopsy sent, patient also received 1 PRBC for anemia: Subsequently patient biopsy showed adenocarcinoma-surgery was consulted patient is status post right colon resection, surgical pathology pending. Anemia patient's H&H is stable around 8.1 range. Eating better, passing bowels. Surgery recommended outpatient follow-up. Patient does not want to go to rehab patient is subsequently going home with [facility]. Patient was strongly advised to follow up with surgery outpatient if with surgery pathology results and also need possible outpatient oncology eval. Monitor CBC and BMP outpatient . Outpatient follow-up with PCP. Health Concerns: As above. Plan of Treatment: As above. Assessment: As above.
[2023-01-24 14:40] VITALS: BP 122/60; PULSE 80; O2SAT 95
--- NOTE | 2023-01-24 14:56 | MHC.CM.PN ---
[facility] ARRANGED FOR 6 PM. RN, UNIT, AND PATIENT AWARE OF PLAN. PATIENT AGAIN DENIES ATTEMPTS TO TRANSFER TO REHAB FACILITY. WANTS HOME WITH HIS RN AND VISIT AGENCY IMM 01/23 IN CHART
[2023-01-24 15:47] VITALS: BP 135/78; PULSE 70; RESP 18; TEMP 37; O2SAT 96
[2023-01-24 16:19] LABS: Glucose, Whole Blood 153 mg/dL (60-115)
== END 2023-01-24 17:45 | disposition home health service (06) | DRG 329 ==
LOC: HO.ED 15:47 → HO.EDOVER 18:15 → HO.S3 18:25
PROVIDERS: Anesthesiology; Internal Medicine Gastroenterology; Surgery; Admitting Provider Internal Medicine; Emergency Provider Student in an Organized Health Care Education/Training Program; PCP Internal Medicine; Visit Provider Internal Medicine
PROC: 0DJ08ZZ Inspection of Upper Intestinal Tract, Via Natural or Artificial Opening Endoscopic (ICD-10-PCS; CPT 43235; principal; 2023-01-13 16:50)
PROC: 0DJD8ZZ Inspection of Lower Intestinal Tract, Via Natural or Artificial Opening Endoscopic (ICD-10-PCS; CPT 45378; principal; 2023-01-14 11:30)
PROC: 0DTE0ZZ Resection of Large Intestine, Open Approach (ICD-10-PCS; principal; 2023-01-20 10:20)
DX: C18.2 Malignant neoplasm of ascending colon (principal); K57.31 Diverticulosis of large intestine without perforation or abscess with bleeding; D62 Acute posthemorrhagic anemia; F11.20 Opioid dependence, uncomplicated; N17.9 Acute kidney failure, unspecified; D63.1 Anemia in chronic kidney disease; D63.0 Anemia in neoplastic disease; E87.5 Hyperkalemia; E11.649 Type 2 diabetes mellitus with hypoglycemia without coma; N18.30 Chronic kidney disease, stage 3 unspecified; E11.22 Type 2 diabetes mellitus with diabetic chronic kidney disease; K64.8 Other hemorrhoids; E11.51 Type 2 diabetes mellitus with diabetic peripheral angiopathy without gangrene; E66.9 Obesity, unspecified; K66.0 Peritoneal adhesions (postprocedural) (postinfection); Z68.29 Body mass index [BMI] 29.0-29.9, adult; Z86.14 Personal history of Methicillin resistant Staphylococcus aureus infection; Z79.4 Long term (current) use of insulin; Z79.02 Long term (current) use of antithrombotics/antiplatelets; Z79.84 Long term (current) use of oral hypoglycemic drugs; Z79.899 Other long term (current) drug therapy
CPT/HCPCS: 36415; 74177; 80048; 80076; 82040; 82378; 82947; 83690; 83735; 84100; 84478; 85014; 85018; 85025; 85027; 85610; 85730; 86850; 86900; 86901; 86923; 88305; 88307; 88329; 88341; 88342; 97116; 97162; 99285; C1758; J0131; J1170; J2250; J2270; J2370; J2405; J2795; J3010; P9016; Q9967

== ENCOUNTER 2023-01-25 06:46 | Emergency (ER) | payer MEDICARE, MEDICAID, SELFPAY ==
--- NOTE | ~2023-01-25 | CT_ITS ---
EXAMINATION: CT HEAD WITHOUT CONTRAST CLINICAL INFORMATION: Fall COMPARISON: Previous head CT June 2022 TECHNIQUE: Contiguous axial imaging was performed from the skull base to vertex without intravenous administration of contrast. This CT examination was performed using dose optimization techniques as appropriate, variously including the following: *Automated exposure control *Adjustment of mA and/or kV according to patient size (this includes techniques or standardized protocols for targeted exams where dose is matched to indication/reason for exam; i.e. extremities or head) *Use of iterative reconstruction technique DLP: 825 mGy-cm FINDINGS: There is no evidence of an extra-axial collection. There is no evidence of intra-axial or extra-axial hemorrhage. The ventricles and extra-axial CSF spaces are stable. There is nonspecific periventricular white matter disease. There may be be old small right basal ganglia, left thalamic and left frontal periventricular white matter lacunar infarcts. No mass, mass effect or acute infarcts are seen. No skull fracture. Frontal bone hyperostosis. Visualized mastoid air cells and middle ears and paranasal sinuses are clear. CT/CT head/brain wo IV con IMPRESSION: No acute findings.. Nonspecific periventricular white matter disease and question old lacunar infarcts similar to June 2022 exam.
--- NOTE | ~2023-01-25 | CT_ITS ---
EXAMINATION: CT CERVICAL SPINE WITHOUT CONTRAST CLINICAL INFORMATION: Fall. Trauma. COMPARISON: Previous CT of the cervical spine August 2019 TECHNIQUE: Axial images through the cervical spine without IV contrast. Sagittal and coronal reconstructions obtained on the technologist's workstation. This CT examination was performed using dose optimization techniques as appropriate, variously including the following: *Automated exposure control *Adjustment of mA and/or kV according to patient size (this includes techniques or standardized protocols for targeted exams where dose is matched to indication/reason for exam; i.e. extremities or head) *Use of iterative reconstruction technique DLP: 687 mGy-cm FINDINGS: Bone alignment is normal. No fracture or dislocation. Multilevel degenerative cervical spondylosis with large bridging vertebral body bony osteophytes greatest at C3-C4 C4-C5 C5-C6 and C7-T1. There is ankylosis at the C6-C7 disc space. There is mild disc space narrowing at C4-C5 C5-C6 and C7-T1. There are degenerative changes at the C1 dens articulation. Prevertebral soft tissues are normal. Visualized lung apices are clear. CT/CT cervical spine wo IV con IMPRESSION: Multilevel degenerative changes. Fleischner guidelines were followed.
--- NOTE | 2023-01-25 06:55 | ED.FALL ---
HPI - Fall General Chief Complaint: Fall Stated Complaint: Fall Time Seen by Provider: 01/25/23 06:46 Source: patient, EMS, RN notes reviewed and old records reviewed Mode of arrival: EMS History of Present Illness HPI Narrative: 57-year-old male with history of chronic normocytic anemia, insulin-dependent type 2 diabetes, CKD stage III, opiate use disorder on methadone, PAD s/p transmetarsal amputation of the left leg, chronic anemia (baseline hemoglobin of 8), on Plavix, recently discharged from our facility on 01/24 S/P melena and right colectomy secondary to colon mass, presenting to the ED via EMS complaining of fall out of bed this morning, states leg got stuck on walker and fell to ground with + head strike. Denies LOC. reports right-sided neck pain, otherwise denies other complaints. Denies fever, nausea/vomiting, new or worsening abdominal pain, diarrhea/constipation or melena MD complaint: fall Related Data Home Medications Medication Instructions Recorded Confirmed clopidogrel 75 mg tablet 1 tab PO DAILY 06/17/22 01/25/23 ferrous sulfate 324 mg (65 mg 1 tab PO BID 06/17/22 01/25/23 iron) tablet,delayed release insulin aspart U-100 100 unit/mL 1 sliding scale dose subcut DAILY 06/17/22 01/11/23 (3 mL) subcutaneous pen (Novolog FlexPen U-100 Insulin aspart) lisinopril 20 mg tablet 20 mg PO DAILY 06/17/22 01/25/23 methadone 10 mg/mL oral concentrate 65 mg PO DAILY 06/17/22 01/25/23 tamsulosin 0.4 mg capsule 1 cap PO BEDTIME 06/17/22 01/25/23 aspirin 81 mg tablet,delayed 81 mg PO DAILY 01/11/23 01/25/23 release atorvastatin 10 mg tablet 10 mg PO BEDTIME 01/11/23 01/25/23 citalopram 20 mg tablet 20 mg PO DAILY 01/11/23 01/25/23 hydroxyzine pamoate 25 mg capsule 25 mg PO TID PRN itch 01/11/23 01/25/23 insulin glargine 100 unit/mL 9 unit subcut DAILY 01/11/23 01/25/23 subcutaneous solution (Lantus U-100 Insulin) metformin 1,000 mg tablet 1,000 mg PO BID 01/11/23 01/25/23 metoprolol succinate 50 mg 50 mg PO DAILY 01/11/23 01/25/23 tablet,extended release 24 hr naloxone 4 mg/actuation nasal 4 mg intranasal Q3M PRN Opioid 01/11/23 01/25/23 spray (Narcan) Overdose nifedipine 30 mg tablet,extended 30 mg PO DAILY 01/11/23 01/25/23 release omeprazole 20 mg capsule,delayed 20 mg PO DAILY@0630 01/11/23 01/25/23 release pregabalin 50 mg capsule 50 mg PO TID 01/11/23 01/25/23 Previous Rx's Medication Instructions Recorded docusate sodium 100 mg capsule 100 mg PO DAILY PRN constipation 01/24/23 (Colace) #10 caps oxycodone 10 mg tablet 10 mg PO BID PRN pain #10 tabs 01/24/23 polyethylene glycol 3350 17 17 g PO DAILY PRN constipation 01/24/23 gram/dose oral powder (Miralax) #119 grams Allergies Allergy/AdvReac Type Severity Reaction Status Date / Time No Known Allergies Allergy Verified 12/28/22 13:52 [No Known Allergies*] Review of Systems Review of Systems: Constitutional: No Fever, No Chills, No Fatigue, No Malaise ENT/Mouth: No Ear Pain, No Nasal Congestion, No sore throat, No Rhinorrhea, No Swallowing Difficulty Eyes: No Eye Pain, No Swelling, No Redness, No Vision Changes Cardiovascular: No Chest Pain, No SOB, No Edema Respiratory: No Cough, No Sputum, No Dyspnea Gastrointestinal: No Nausea, No Vomiting, No Diarrhea, No Constipation, No Abdominal pain, No Hematochezia, No Melena Genitourinary: No irregular bleeding, No Dysuria, No Urinary Frequency, No Hematuria, No Urinary Incontinence/retention, No Flank Pain Musculoskeletal: +neck pain, No Myalgias, No Joint Swelling Skin: No Skin Lesions, No rash Neuro: No Weakness, No Numbness, No Paresthesias, No Loss of Consciousness, No Dizziness, No Headache Yes all other systems are reviewed and are negative Constitutional: Constitutional: Reports as per HPI Neurologic: Denies Abnormal speech present PMFSH Past Medical History Attestation statement: The following information was validated with the patient. Source: old records reviewed Medical History Anemia Chronic anemia CKD (chronic kidney disease) Colon cancer Colonic mass Diabetes Diabetes type 2, controlled Diabetic infection of left foot Fever of unknown origin History of prostate cancer Migraine Morbid obesity Opioid use disorder Osteomyelitis PAD (peripheral artery disease) Sleep apnea Surgical History S/P transmetatarsal amputation of foot Family History Family History Mother No pertinent family history Social History Social History Household Members: Spouse Housing: Apartment Do you presently have visiting nurse or other home services: Yes Alcohol intake: never Patient Tobacco Use Status: Never used Tobacco Smoked in Last 30 Days: No Use of substances other than those prescribed or required for medical reasons: No Substance Use Type: Opiates Advance Directives: Yes Advance Directives on File: Yes Advance Directives Date on File: 01/11/23 service: No Current occupational status: disabled Physical Exam Vital Signs: Vital Signs: Last Vital Signs Temp 98.1 F 01/25/23 15:50 Pulse 84 01/25/23 15:50 Resp 20 01/25/23 15:50 BP 139/63 01/25/23 15:50 Pulse Ox 96 01/25/23 15:50 O2 Del Method Room Air 01/25/23 15:50 BMI result Body Mass Index 38.1 Const: Other: pale General: cooperative, healthy appearing and no acute distress Orientation/consciousness: patient oriented x3 Limitations: no limitations HEENT: Head: Yes normal to inspection, Yes atraumatic, No Irizarry's sign and No raccoon eyes Ears: hearing grossly normal bilaterally General nose exam: Normal external nose present Face and sinus: Yes normal facial exam Throat: Yes posterior oropharynx normal and Yes tonsils normal Eyes: General: appearance normal, both eyes and all related structures Pupils: Equal, round and reactive pupils present and Pinpoint pupils bilaterally EOM: EOMs intact bilaterally Neck: Other: No midline cervical spine tenderness. Right-sided paraspinal tenderness noted Neck: Yes normal visual inspection and Yes no meningeal signs Resp: Effort & Inspection: normal respiratory effort and no respiratory distress Auscultation: clear to auscultation bilaterally, no crackles and no wheezes Cardio: Rate: regular rate Heart sounds: S1 normal heart sound present and S2 normal heart sound present GI: Other: Surgical scars noted with junaid intact. No surrounding erythema, fluctuance or induration Inspection: Yes normal to inspection Palpation (GI): Soft to palpation, nontender, no guarding and not rigid Back/Spine/Pelvis: Other: No midline thoracic/lumbar spinous tenderness/step-off or deformity Skin: Rashes: no rashes Wounds: no wounds Neuro: General: patient oriented x3, tone normal, moves all extremities, no meningeal signs, no focal motor deficits and CN's II-XI intact bilaterally Cranial nerves: Yes CN's II-XII intact bilaterally, Yes Equal, round and reactive pupils present and Yes Bilaterally intact EOM present Cognition (Neuro): normal cognition Speech: No Abnormal speech present Motor exam (neuro): 5/5 motor strength present throughout Extrem: General: Yes normal to inspection and Yes no pedal edema Course Course Course Narrative: -829--mild leukocytosis of 12.8. Chronically anemic 7.3/23.4 (lower than priors-likely post surgical), patient denies active melena >> will obtain occult stool >>case d/w Dr. Kwon, no transfusion indicated at this time, will observe and repeat labs -mild AMY with a creatinine of 1.8, BUN 46. AST/ALT mildly elevated CT head/brain wo IV con IMPRESSION: No acute findings.. Nonspecific periventricular white matter disease and question old lacunar infarcts similar to June [address] cervical spine wo IV con IMPRESSION: Multilevel degenerative changes.? Fleischner guidelines were followed. -1130--repeat labs after IVF with improvement in H&H to 7.7/24.7, & improved AMY with a creatinine 1.49, BUN of 40. Plan for PT/Case Management. Physician observation initiated -patient was evaluated by Physical therapy and short-term rehab recommended. ED care transferred to [facility] pending Case Management placement Medications Administered Discontinued Medications Generic Name Dose Route Start Last Admin Trade Name Freq PRN Reason Stop Dose Admin Sodium Chloride 500 mls @ 999 mls/hr 01/25/23 08:45 01/25/23 09:57 Ns IV 01/25/23 09:15 Infused .Q31M MARIA ELENA Infusion Sodium Chloride 250 mls @ 999 mls/hr 01/25/23 10:15 01/25/23 10:35 Ns IV 01/25/23 10:30 Infused .Q16M MARIA ELENA Infusion Methadone HCl 65 mg 01/25/23 13:56 01/25/23 14:19 Methadone Hcl 20 Mg/2 Ml Oral.Conc PO 01/25/23 13:57 65 mg ONCE ONE Administration Medical Decision Making Medical Decision Making MDM Narrative: 57-year-old male with history of chronic normocytic anemia, insulin-dependent type 2 diabetes, CKD stage III, opiate use disorder on methadone, PAD s/p transmetarsal amputation of the left leg, chronic anemia (baseline hemoglobin of 8), on Plavix, recently discharged from our facility on 01/24 S/P melena and right colectomy secondary to colon mass, presenting to the ED via EMS complaining of fall out of bed this morning, states leg got stuck on walker and fell to ground with + head strike. On exam vital signs stable, NAD, nontoxic appearing, no midline spinous tenderness throughout, no focal neuro deficits, abdomen soft, nontender, appropriately healing surgical scars noted with junaid intact. Concern for mechanical trip and fall vs ICH vs fractures. Lower suspicion for acute GI bleed. No evidence of surgical infection. Rule out metabolic and infectious etiologies. Plan: EKG, labs, UA, head/C-spine CT, anticipate PT/case management Please refer to course for remaining clinical decision making, interpretation of labs/imaging results, and discussions with consultants and/or family members. Differential Diagnosis Differential Diagnoses: The differential diagnosis associated with the presentation includes As above Admission/Observation Consideration of admission/observation: Escalation of care including admission/observation considered Lab Data [facility] Lab Attestation statement: I reviewed the patient's lab results. 01/25/23 07:26 01/25/23 07:26 Labs: Lab Results 01/25/23 01/25/23 01/25/23 Range/Units 07:15 07:26 07:26 WBC 12.8 H (4.8-10.8) X10*3/uL RBC 2.83 L (4.60-5.80) X10*6/uL Hgb 7.3 L (14.0-18.0) g/dl Hct 23.4 L (42.0-52.0) % MCV 82.7 (80.0-98.0) fL MCH 25.8 L (27.0-33.0) pg MCHC 31.2 (31.0-36.0) g/dl RDW 14.6 (11.0-16.0) % Plt Count 227 (160-400) X10*3/uL MPV 11.2 (9.4-12.4) fL Immature Gran % (Auto) 0.5 H (0.0-0.4) % Neut % (Auto) 79.1 H (45-73) % Lymph % (Auto) 8.8 L (20-40) % [place] % (Auto) 9.3 (2-11) % Eos % (Auto) 2.1 (0-4) % Baso % (Auto) 0.2 (0-2) % Lymph # (Auto) 1.1 L (1.2-4.9) X10*3/uL [place] # (Auto) 1.2 (0.1-1.2) X10*3/uL Eos # (Auto) 0.3 (0.0-0.4) X10*3/uL Baso # (Auto) 0.0 (0.0-0.2) X10*3/uL Abs Immat Gran (auto) 0.07 H (0.00-0.03) X10*3/uL Absolute Neuts (auto) 10.1 H (2.0-8.3) x10*3/uL Absolute Nucleated RBC 0.000 (0.0-0.012) X10*3/uL Nucleated RBC % (auto) 0.0 (0.0-0.2) /100WBC PT (10.0-13.1) SEC INR (0.9-1.1) Sodium 138 (135-145) mmol/L Potassium 5.0 (3.3-5.1) mmol/L Chloride 105 (96-108) mmol/L Carbon Dioxide 22 (22-29) mmol/L Anion Gap 16 (12-20) BUN 46 H (9-16) mg/dL Creatinine 1.80 H (0.5-1.4) mg/dL Estim Creat Clear Calc 51.9 Estimated GFR 39 POC Glucose (60-115) mg/dL Random Glucose 231 H (60-115) mg/dL Calcium 9.3 (8.4-10.2) mg/dL Magnesium 1.9 (1.6-2.6) mg/dL Total Bilirubin 0.2 (0.0-1.0) mg/dL Direct Bilirubin < 0.2 (0.0-0.5) mg/dL AST 48 H (5-37) U/L ALT 52 H (0-40) U/L Alkaline Phosphatase 73 (39-117) U/L Total Protein 7.2 (6.5-8.0) g/dL Albumin 3.1 L (3.5-5.0) g/dL Lipase 6 L (8-78) U/L Urine Color Urine Appearance Urine pH (5.0-9.0) Ur Specific [place] (1.005-1.025) Urine Protein (Neg-Trace) mg/dL Urine Glucose (UA) (Negative) mg/dL Urine Ketones (Negative) mg/dL Urine Blood (Negative) Urine Nitrite (Negative) Ur Leukocyte Esterase (Negative) Urine RBC (0-2) /HPF Urine WBC (0-5) /HPF Ur Squamous Epith Cells (0-2) /HPF Urine Bacteria (None Seen) Hyaline Casts (0-2) /LPF Stool Occult Blood (NEGATIVE) COVID-19 (JOSE DAVID) Negative (Negative) COVID-19 Clin Com See Note 01/25/23 01/25/23 01/25/23 Range/Units 07:26 09:34 10:52 WBC (4.8-10.8) X10*3/uL RBC (4.60-5.80) X10*6/uL Hgb (14.0-18.0) g/dl Hct (42.0-52.0) % MCV (80.0-98.0) fL MCH (27.0-33.0) pg MCHC (31.0-36.0) g/dl RDW (11.0-16.0) % Plt Count (160-400) X10*3/uL MPV (9.4-12.4) fL Immature Gran % (Auto) (0.0-0.4) % Neut % (Auto) (45-73) % Lymph % (Auto) (20-40) % [place] % (Auto) (2-11) % Eos % (Auto) (0-4) % Baso % (Auto) (0-2) % Lymph # (Auto) (1.2-4.9) X10*3/uL [place] # (Auto) (0.1-1.2) X10*3/uL Eos # (Auto) (0.0-0.4) X10*3/uL Baso # (Auto) (0.0-0.2) X10*3/uL Abs Immat Gran (auto) (0.00-0.03) X10*3/uL Absolute Neuts (auto) (2.0-8.3) x10*3/uL Absolute Nucleated RBC (0.0-0.012) X10*3/uL Nucleated RBC % (auto) (0.0-0.2) /100WBC PT 11.9 (10.0-13.1) SEC INR 1.0 (0.9-1.1) Sodium (135-145) mmol/L Potassium (3.3-5.1) mmol/L Chloride (96-108) mmol/L Carbon Dioxide (22-29) mmol/L Anion Gap (12-20) BUN (9-16) mg/dL Creatinine (0.5-1.4) mg/dL Estim Creat Clear Calc Estimated GFR POC Glucose (60-115) mg/dL Random Glucose (60-115) mg/dL Calcium (8.4-10.2) mg/dL Magnesium (1.6-2.6) mg/dL Total Bilirubin (0.0-1.0) mg/dL Direct Bilirubin (0.0-0.5) mg/dL AST (5-37) U/L ALT (0-40) U/L Alkaline Phosphatase (39-117) U/L Total Protein (6.5-8.0) g/dL Albumin (3.5-5.0) g/dL Lipase (8-78) U/L Urine Color Yellow Urine Appearance Clear Urine pH 5.0 (5.0-9.0) Ur Specific [place] 1.015 (1.005-1.025) Urine Protein 30 (1+) H (Neg-Trace) mg/dL Urine Glucose (UA) Negative (Negative) mg/dL Urine Ketones Negative (Negative) mg/dL Urine Blood Negative (Negative) Urine Nitrite Negative (Negative) Ur Leukocyte Esterase Negative (Negative) Urine RBC 0-2 (0-2) /HPF Urine WBC 0-5 (0-5) /HPF Ur Squamous Epith Cells 0-2 (0-2) /HPF Urine Bacteria None Seen (None Seen) Hyaline Casts 3-5 (0-2) /LPF Stool Occult Blood NEGATIVE (NEGATIVE) COVID-19 (JOSE DAVID) (Negative) COVID-19 Clin Com 01/25/23 01/25/23 01/25/23 Range/Units 11:05 11:05 16:10 WBC 11.3 H (4.8-10.8) X10*3/uL RBC 2.97 L (4.60-5.80) X10*6/uL Hgb 7.7 L (14.0-18.0) g/dl Hct 24.7 L (42.0-52.0) % MCV 83.2 (80.0-98.0) fL MCH 25.9 L (27.0-33.0) pg MCHC 31.2 (31.0-36.0) g/dl RDW 14.7 (11.0-16.0) % Plt Count 223 (160-400) X10*3/uL MPV 11.2 (9.4-12.4) fL Immature Gran % (Auto) 0.5 H (0.0-0.4) % Neut % (Auto) 81.1 H (45-73) % Lymph % (Auto) 10.4 L (20-40) % [place] % (Auto) 6.3 (2-11) % Eos % (Auto) 1.4 (0-4) % Baso % (Auto) 0.3 (0-2) % Lymph # (Auto) 1.2 (1.2-4.9) X10*3/uL [place] # (Auto) 0.7 (0.1-1.2) X10*3/uL Eos # (Auto) 0.2 (0.0-0.4) X10*3/uL Baso # (Auto) 0.0 (0.0-0.2) X10*3/uL Abs Immat Gran (auto) 0.06 H (0.00-0.03) X10*3/uL Absolute Neuts (auto) 9.1 H (2.0-8.3) x10*3/uL Absolute Nucleated RBC 0.000 (0.0-0.012) X10*3/uL Nucleated RBC % (auto) 0.0 (0.0-0.2) /100WBC PT (10.0-13.1) SEC INR (0.9-1.1) Sodium 138 (135-145) mmol/L Potassium 4.7 (3.3-5.1) mmol/L Chloride 106 (96-108) mmol/L Carbon Dioxide 25 (22-29) mmol/L Anion Gap 12 (12-20) BUN 40 H (9-16) mg/dL Creatinine 1.49 H (0.5-1.4) mg/dL Estim Creat Clear Calc 62.7 Estimated GFR 49 POC Glucose 164 H (60-115) mg/dL Random Glucose 233 H (60-115) mg/dL Calcium 9.3 (8.4-10.2) mg/dL Magnesium (1.6-2.6) mg/dL Total Bilirubin (0.0-1.0) mg/dL Direct Bilirubin (0.0-0.5) mg/dL AST (5-37) U/L ALT (0-40) U/L Alkaline Phosphatase (39-117) U/L Total Protein (6.5-8.0) g/dL Albumin (3.5-5.0) g/dL Lipase (8-78) U/L Urine Color Urine Appearance Urine pH (5.0-9.0) Ur Specific [place] (1.005-1.025) Urine Protein (Neg-Trace) mg/dL Urine Glucose (UA) (Negative) mg/dL Urine Ketones (Negative) mg/dL Urine Blood (Negative) Urine Nitrite (Negative) Ur Leukocyte Esterase (Negative) Urine RBC (0-2) /HPF Urine WBC (0-5) /HPF Ur Squamous Epith Cells (0-2) /HPF Urine Bacteria (None Seen) Hyaline Casts (0-2) /LPF Stool Occult Blood (NEGATIVE) COVID-19 (JOSE DAVID) (Negative) COVID-19 Clin Com Independent Interpretation I performed an independent interpretation of an: EKG (EKG normal sinus rhythm at a rate of 88. OR interval 168. QRS 84. No STEMI. Nonischemic) Radiology Impression Discussion of test interpretation with radiology: I have reviewed the radiologist's reading. External Record Review External record reviewed: Inpatient record, Office record, Outpatient record, Prior outpatient labs, Prior outpatient radiology, Primary care record and Outside ED record Tests considered The following testing was considered but not selected: As above Discharge Plan Discharge Clinical Impression: Chronic anemia, Fall Patient Disposition: Still a Patient Prescriptions: No Action clopidogrel 75 mg tablet 1 tab PO DAILY tamsulosin 0.4 mg capsule 1 cap PO BEDTIME insulin aspart U-100 [Novolog FlexPen U-100 Insulin] 100 unit/mL (3 mL) insulin pen 1 sliding scale dose subcut DAILY ferrous sulfate 324 mg (65 mg iron) tablet,delayed release (DR/EC) 1 tab PO BID methadone 10 mg/mL Concentrate 65 mg PO DAILY lisinopril 20 mg tablet 20 mg PO DAILY atorvastatin 10 mg tablet 10 mg PO BEDTIME metoprolol succinate 50 mg tablet extended release 24 hr 50 mg PO DAILY nifedipine 30 mg tablet extended release 30 mg PO DAILY aspirin 81 mg tablet,delayed release (DR/EC) 81 mg PO DAILY citalopram 20 mg tablet 20 mg PO DAILY metformin 1,000 mg tablet 1,000 mg PO BID omeprazole 20 mg Capsule,Delayed Release(Dr/Ec) 20 mg PO DAILY@0630 hydroxyzine pamoate 25 mg Capsule 25 mg PO TID PRN (Reason: itch) pregabalin 50 mg capsule 50 mg PO TID naloxone [Narcan] 4 mg/actuation [place],Non-Aerosol 4 mg INTRANASAL Q3M PRN (Reason: Opioid Overdose) Rx Instructions: spray 1 dose into ONE nostril; alternate nostrils w each dose until help arrives insulin glargine [Lantus U-100 Insulin] 100 unit/mL solution 9 unit subcut DAILY oxycodone 10 mg tablet 10 mg PO BID PRN (Reason: pain) Qty: 10 0RF Rx Instructions: Partial Fill upon patient request. docusate sodium [Colace] 100 mg capsule 100 mg PO DAILY PRN (Reason: constipation) Qty: 10 0RF polyethylene glycol 3350 [Miralax] 17 gram/dose powder 17 g PO DAILY PRN (Reason: constipation) Qty: 119 0RF
[2023-01-25 07:04] VITALS: BP 112/70; BP 113/55; PULSE 84; PULSE 87; RESP 16; TEMP 36.7; O2SAT 94; O2SAT 96; BMI 38.1
--- NOTE | 2023-01-25 07:08 | ECG_ITS ---
Test Reason : FALL Blood Pressure : / mmHG Vent. Rate : 088 BPM Atrial Rate : 088 BPM P-R Int : 168 ms QRS Dur : 084 ms QT Int : 360 ms P-R-T Axes : 002 072 031 degrees QTc Int : 435 ms Normal sinus rhythm Normal ECG When compared with ECG of 25-JUN-2022 11:58, No significant change was found Referred By: Rabia Dudley Electronically Signed By:MORA REESE
[2023-01-25 07:32] LABS: MANUAL DIFF FLAG NO
[2023-01-25 07:34] LABS: Basophils Percent Auto 0.2 % (0-2); Eosinophils Absolute Auto 0.3 X10*3/uL (0.0-0.4); Eosinophils Percent Auto 2.1 % (0-4); Hematocrit 23.4 % (42.0-52.0); Hemoglobin 7.3 g/dl (14.0-18.0); Imm Gran Abs Auto 0.07 X10*3/uL (0.00-0.03); Imm Gran Pct Auto 0.5 % (0.0-0.4); Lymphocytes Absolute Auto 1.1 X10*3/uL (1.2-4.9); Lymphocytes Percent Auto 8.8 % (20-40); Mean Corpuscular HGB Conc 31.2 g/dl (31.0-36.0); Mean Corpuscular Hemoglobin 25.8 pg (27.0-33.0); Mean Corpuscular Volume 82.7 fL (80.0-98.0); Mean Platelet Volume 11.2 fL (9.4-12.4); Monocytes Absolute Auto 1.2 X10*3/uL (0.1-1.2); Monocytes Percent Auto 9.3 % (2-11); Neutrophils Absolute Auto 10.1 x10*3/uL (2.0-8.3); Neutrophils Percent Auto 79.1 % (45-73); Platelet Count 227 X10*3/uL (160-400); Red Blood Count 2.83 X10*6/uL (4.60-5.80); Red Cell Distribution Width 14.6 % (11.0-16.0); White Blood Count 12.8 X10*3/uL (4.8-10.8)
[2023-01-25 07:40] LABS: Prothrombin Time 11.9 SEC (10.0-13.1)
[2023-01-25 07:53] LABS: COVID-19 Test Negative (Negative); IDNOW Serial# BCCEAD1C
[2023-01-25 08:20] LABS: Alanine Aminotransferase 52 U/L (0-40); Albumin Level 3.1 g/dL (3.5-5.0); Alkaline Phosphatase 73 U/L (39-117); Anion Gap 16 (12-20); Aspartate Amino Transferase 48 U/L (5-37); Bilirubin Direct < 0.2 mg/dL (0.0-0.5); Bilirubin Total 0.2 mg/dL (0.0-1.0); Blood Urea Nitrogen 46 mg/dL (9-16); Calcium 9.3 mg/dL (8.4-10.2); Carbon Dioxide 22 mmol/L (22-29); Chloride 105 mmol/L (96-108); Creatinine Clr Calc Pharmacy 51.9; Estimated Glomerular Filt Rate 39; Glucose Random 231 mg/dL (60-115); Lipase 6 U/L (8-78); Magnesium 1.9 mg/dL (1.6-2.6); Sodium 138 mmol/L (135-145); Total Protein 7.2 g/dL (6.5-8.0)
--- NOTE | 2023-01-25 08:49 | PHA.MEDREC ---
Pharmacy Consult ? Medication Reconciliation Pharmacy has completed the medication reconciliation. Patient discharged yesterday. On methadone, spoke to RN. Patient was last dosed here on 01/24 here. Was on floor this AM at 0500 so did not go to clinic [place]
[2023-01-25] MEDS: 0.9 % Sodium Chloride 500 ML 999 ML IV (09:21)
--- NOTE | 2023-01-25 09:21 | PC.NURSE ---
PT RESTING QUIETLY, VERIFIED WITH PATIENT THAT HE DID NOT TAKE HIS METHADONE DOSE TODAY.
[2023-01-25 09:45] LABS: OBS Int Ctl Valid YES; OBS1 NEGATIVE (NEGATIVE)
[2023-01-25 10:10] VITALS: BP 132/65; PULSE 86; RESP 16; TEMP 36.7; O2SAT 95
[2023-01-25] MEDS: 0.9 % Sodium Chloride 250 ML 999 ML IV (10:19)
[2023-01-25 11:07] LABS: Appearance Urine Clear; Color Urine Yellow; Glucose Urine UA Negative (Negative); Leukocyte Esterase Urine Negative (Negative); Nitrite Urine Negative (Negative); Specific Gravity - Urine 1.015 (1.005-1.025); UMIC TRIGGER UACC YES; Urine Blood Negative (Negative); Urine Ketones Negative (Negative); Urine Protein 30 (1+) mg/dL (Neg-Trace)
[2023-01-25 11:09] LABS: Bacteria Urine None Seen (None Seen); RBC Urine 0-2 /HPF (0-2); Squamous Epithelial Cell Urine 0-2 /HPF (0-2); WBC Urine 0-5 /HPF (0-5)
[2023-01-25 11:10] LABS: MANUAL DIFF FLAG NO
[2023-01-25 11:11] LABS: Basophils Percent Auto 0.3 % (0-2); Eosinophils Absolute Auto 0.2 X10*3/uL (0.0-0.4); Eosinophils Percent Auto 1.4 % (0-4); Hematocrit 24.7 % (42.0-52.0); Hemoglobin 7.7 g/dl (14.0-18.0); Imm Gran Abs Auto 0.06 X10*3/uL (0.00-0.03); Imm Gran Pct Auto 0.5 % (0.0-0.4); Lymphocytes Absolute Auto 1.2 X10*3/uL (1.2-4.9); Lymphocytes Percent Auto 10.4 % (20-40); Mean Corpuscular HGB Conc 31.2 g/dl (31.0-36.0); Mean Corpuscular Hemoglobin 25.9 pg (27.0-33.0); Mean Corpuscular Volume 83.2 fL (80.0-98.0); Mean Platelet Volume 11.2 fL (9.4-12.4); Monocytes Absolute Auto 0.7 X10*3/uL (0.1-1.2); Monocytes Percent Auto 6.3 % (2-11); Neutrophils Absolute Auto 9.1 x10*3/uL (2.0-8.3); Neutrophils Percent Auto 81.1 % (45-73); Platelet Count 223 X10*3/uL (160-400); Red Blood Count 2.97 X10*6/uL (4.60-5.80); Red Cell Distribution Width 14.7 % (11.0-16.0); White Blood Count 11.3 X10*3/uL (4.8-10.8)
[2023-01-25 11:25] LABS: Anion Gap 12 (12-20); Blood Urea Nitrogen 40 mg/dL (9-16); Calcium 9.3 mg/dL (8.4-10.2); Carbon Dioxide 25 mmol/L (22-29); Chloride 106 mmol/L (96-108); Creatinine Clr Calc Pharmacy 62.7; Estimated Glomerular Filt Rate 49; Glucose Random 233 mg/dL (60-115); Potassium 4.7 mmol/L (3.3-5.1); Sodium 138 mmol/L (135-145)
--- NOTE | 2023-01-25 13:55 | PC.NURSE ---
called pt methadone clinic in regards to patients last dose, spoke to clinic RN at [facility] in [place]. last dose stated as methadone 65 mg by Bre Nunez RN.
--- NOTE | 2023-01-25 14:07 | MHC.CM.ED ---
Received case management consult from Rabia KUMAR. Patient was d/c'd from [facility] on 01/24. Short term rehab was recommended at that time. Patient declined and returned home with resumption of VNA services through [facility]. Met with patient in regards to discharge planning. Patient lives with his and fell at home. Patient is now agreeable to STR. Patient receives methadone at [facility] in [place]. PCP verified as Dr Nunez. Copy of HCP verified to be on file. Referral broadcasted in [employer]. Patient will need [facility] Level 2. T/W has submitted for this. Continue to monitor for d/c needs.
[2023-01-25] MEDS: methADONE HCl 20 MG/2 ML ORAL.CONC 65 MG PO (14:19)
--- NOTE | 2023-01-25 14:20 | PC.NURSE ---
pt resting comfortable, medicated as charted
[2023-01-25 14:21] VITALS: BP 144/72; PULSE 80; RESP 14; O2SAT 97
[2023-01-25 15:50] VITALS: BP 139/63; PULSE 84; RESP 20; TEMP 36.7; O2SAT 96
--- NOTE | 2023-01-25 16:01 | PC.NURSE ---
Pt to overflow bed #4 from main ED at this time. Transitioned to hospital bed for comfort. [place] noted to abdomen from recent mass removal as stated by patient. Pillows and additional blankets provided per request. Denies any other complaints or needs at this time.
[2023-01-25 16:13] LABS: Glucose, Whole Blood 164 mg/dL (60-115)
--- NOTE | 2023-01-25 19:00 | PC.NURSE ---
Report received from RN, Mira Burden about pts present condition, the reason for the admission to the hospital, what the care plan is and what is to be expected by the care placed by MD. All pertinent information about lab results, test results and treatments provided were also discussed. At moment pt is resting comfortably in bed, call kowalski within reach, bed in low position, valuables within pts reach. Pt appears in NAD.
[2023-01-25] MEDS: Ferrous Sulfate 324 MG TABLET.DR PO (20:34)
[2023-01-25] MEDS: Tamsulosin HCL 0.4 MG CAPSULE PO (20:34)
[2023-01-25] MEDS: Atorvastatin Calcium 10 MG TABLET PO (20:34)
[2023-01-25 20:59] LABS: Glucose, Whole Blood 189 mg/dL (60-115)
--- NOTE | 2023-01-25 21:00 | PC.NURSE ---
Pt is resting in bed, denies any pain, SOB, feeling of faint, or generalize weakness. Pt is asking for a drink of water.
[2023-01-25] MEDS: Pregabalin 50 MG CAPSULE PO (22:00)
[2023-01-26] VITALS: BP 132/68; PULSE 75; RESP 16; TEMP 36.9; O2SAT 96
--- NOTE | 2023-01-26 | PC.NURSE ---
Pt is resting in bed. Pt is in NAD. Call kowalski within reach, bed in low position, all personal items within reach. Pt is not requesting anything at moment, pt is watching television.
[2023-01-26 02:00] VITALS: RESP 16
[2023-01-26 04:00] VITALS: RESP 16
[2023-01-26 06:00] VITALS: BP 146/71; PULSE 80; RESP 16; TEMP 36.6; O2SAT 95
[2023-01-26] MEDS: metFORMIN HCl 1,000 MG TABLET 1000 MG PO (06:21)
[2023-01-26] MEDS: Omeprazole 20 MG CAPSULE.DR PO (06:22)
[2023-01-26 07:29] LABS: Glucose, Whole Blood 164 mg/dL (60-115)
[2023-01-26 08:00] VITALS: BP 137/74; PULSE 102; RESP 18; TEMP 36.8; O2SAT 97
[2023-01-26] MEDS: methADONE HCl 20 MG/2 ML ORAL.CONC 65 MG PO (08:02)
[2023-01-26] MEDS: Insulin Glargine,Hum.rec.anlog 100 UNIT/ML 10 ML VIAL 9 UNIT SUBCUT (08:02)
[2023-01-26] MEDS: Metoprolol Succinate ER 50 MG TAB.ER.24H PO (08:03)
[2023-01-26] MEDS: Pregabalin 50 MG CAPSULE PO ×2 (08:03→14:19)
[2023-01-26] MEDS: Aspirin Enteric Coated 81 MG TABLET.DR PO (08:03)
[2023-01-26] MEDS: Escitalopram Oxalate 10 MG TABLET PO (08:03)
[2023-01-26] MEDS: lisinopriL 20 MG TABLET PO (08:03)
[2023-01-26] MEDS: Ferrous Sulfate 324 MG TABLET.DR PO (08:03)
[2023-01-26] MEDS: Clopidogrel Bisulfate 75 MG TABLET PO (09:14)
[2023-01-26] MEDS: NIFEdipine ER 30 MG TAB.ER.24 PO (09:14)
--- NOTE | 2023-01-26 10:06 | PC.NURSE ---
Assumed care of patient at 0645, pt resting in bed quietly requesting methadone, methadone and other scheduled medications given, water refilled, pt is s/p colon resection with midline junaid dry and intact, IV to L AC flushed, call kowalski within reach, no other needs at this time
--- NOTE | 2023-01-26 12:33 | MHC.CM.ED ---
Patient remains in ER. [facility]. DM PASRR Level obtained. Patient can leave at 3pm. Adolfo JI booked. Med nec with range aide. Patient, Ksenia LIM and Laura RICK aware. Continue to monitor for d/c needs.
== END 2023-01-26 16:02 | disposition skilled nursing facility (03) ==
PROVIDERS: Physician Assistant; Emergency Provider Emergency Medicine; PCP Internal Medicine
DX: S09.90XA Unspecified injury of head, initial encounter (principal); S89.90XA Unspecified injury of unspecified lower leg, initial encounter; R51.9 Headache, unspecified; M54.2 Cervicalgia; D64.9 Anemia, unspecified; R07.89 Other chest pain; E11.9 Type 2 diabetes mellitus without complications; W06.XXXA Fall from bed, initial encounter; Y93.9 Activity, unspecified; Y92.9 Unspecified place or not applicable; Y99.9 Unspecified external cause status; Z79.4 Long term (current) use of insulin; Z79.899 Other long term (current) drug therapy; Z91.81 History of falling; Z20.822 Contact with and (suspected) exposure to COVID-19; Z20.828 Contact with and (suspected) exposure to other viral communicable diseases
CPT/HCPCS: 36415; 70450; 72125; 80048; 80076; 81001; 82272; 82947; 83690; 83735; 85025; 85610; 87635; 93005; 96360; 97162; 99285

== ENCOUNTER → 2023-02-04 09:37 | Outpatient (BNVA) | payer MEDICARE, MEDICAID, SELFPAY | PROVIDERS: PCP Internal Medicine; Visit Provider Surgery ==

== ENCOUNTER → 2023-02-09 14:21 | Outpatient (BNVA) | payer MEDICARE, MEDICAID, SELFPAY | PROVIDERS: PCP Internal Medicine; Visit Provider Surgery ==

== ENCOUNTER 2023-03-14 12:44 | Outpatient (AMB) | payer MEDICARE, MEDICAID, SELFPAY ==
--- NOTE | 2023-03-14 12:51 | MHC.OFFVIS ---
Intake Vital Signs 03/14/23 12:52 Height 5 ft 6 in Intake Visit Reasons: 1 mth follow up Intake Note: This patient presents for a one month follow-up assessment. Patient c/o; denies complaints at this time. 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 He is here for postop visit. He has good oral intake and has good GI functions. He denies significant complaints. He is still currently in rehab. [facility] Medical History Anemia Chronic anemia CKD (chronic kidney disease) Colon cancer Colonic mass Diabetes Diabetes type 2, controlled Diabetic infection of left foot Fever of unknown origin History of prostate cancer Migraine Morbid obesity Opioid use disorder Osteomyelitis PAD (peripheral artery disease) Sleep apnea Surgical History Hx of colectomy (01/20/23) S/P transmetatarsal amputation of foot Family History Mother No pertinent family history Social History Household Members: Spouse Housing: Apartment Do you presently have visiting nurse or other home services: Yes Alcohol intake: never Patient Tobacco Use Status: Never used Tobacco Substance Use Type: Opiates Advance Directives Date on File: 01/11/23 service: No Current occupational status: disabled Review of Systems Const Denies chills and Denies fever(s) Card Denies chest pain, Denies dyspnea and Denies dyspnea on exertion Resp Denies cough, Denies dyspnea and Denies dyspnea on exertion GI Denies hematochezia and Denies change in bowel habits Denies hematuria and Denies difficulty urinating Musc Denies back pain and Denies limited range of motion Neuro Denies focal weakness and Denies convulsions Psych Denies depression and Denies mood swings Physical Exam Const Other: Using a wheelchair General: comfortable and no acute distress Resp Effort & Inspection: normal respiratory effort GI Other: Small residual open wound the midline, about 2 cm, clean, granulating Palpation (GI): Soft to palpation, not firm and nontender Assessment & Plan Assessment & Plan (1) Colon cancer: Code(s): C18.9 - Malignant neoplasm of colon, unspecified Plan: Status post right colon resection. He continues to do well. His incisions are well healed. He has a T4 N2 lesion and he has already been referred to the oncologist service but he missed his appointment last month so we will set him up again for another visit with the oncologist. His abdomen is soft and benign. I will see him in the office in about 6 months to see how is doing. Medications: Discontinued insulin glargine 70 units (0.7 mL) subcut DAILY 10 mL 0RF Coding Level of Care Code Global (05551) Diagnoses Colon cancer C18.9
== END 2023-03-14 13:12 | disposition home or self-care (01) ==
PROVIDERS: PCP Internal Medicine; Visit Provider Surgery
DX: C18.9 Malignant neoplasm of colon, unspecified (principal)
CPT/HCPCS: 99024

== ENCOUNTER → 2023-03-14 12:44 | Outpatient (BNVA) | payer MEDICARE, MEDICAID, SELFPAY | PROVIDERS: PCP Internal Medicine; Visit Provider Surgery ==

== ENCOUNTER 2023-03-16 13:22 | Inpatient (IN) | payer MEDICARE, MEDICAID, SELFPAY ==
--- NOTE | ~2023-03-16 | XR_ITS ---
EXAMINATION: XR FOOT, RIGHT XR FOOT, LEFT CLINICAL INFORMATION: Evaluate for osteomyelitis COMPARISON: Left foot radiograph from 05/12/2022 TECHNIQUE: 4 views of the right foot 2 views of the left foot FINDINGS: RIGHT: No acute visible fracture or dislocation. Multi joint arthritic changes. Plantar calcaneal heel spur. Spurring the dorsal midfoot. Enthesopathy along the Achilles tendon insertion site. Radiopaque linear density along the mid plantar soft tissues at the level of the proximal metatarsal heads measuring 9 mm, unclear etiology, correlation with physical exam. LEFT: Status post transmetatarsal amputation along the base. No acute visible fracture or dislocation. Plantar calcaneal heel spur. Enthesopathy at the Achilles tendon insertion site. Joint spaces and alignment are otherwise maintained. Soft tissues are unremarkable. Atherosclerotic calcifications are noted. XR/XR foot LT 2V IMPRESSION: 1. No acute visible fracture or dislocation. 2. Bilateral degenerative changes. 3. Radiopaque linear density along the right mid plantar soft tissues at the level of the proximal metatarsal heads measuring 9 mm, unclear etiology, correlation with physical exam as this may a retained foreign body. 4. Status post left transmetatarsal amputation along the base. 5. Plantar calcaneal heel spurs and enthesopathy at the Achilles tendon insertion site.
--- NOTE | ~2023-03-16 | XR_ITS ---
EXAMINATION: XR FOOT, RIGHT XR FOOT, LEFT CLINICAL INFORMATION: Evaluate for osteomyelitis COMPARISON: Left foot radiograph from 05/12/2022 TECHNIQUE: 4 views of the right foot 2 views of the left foot FINDINGS: RIGHT: No acute visible fracture or dislocation. Multi joint arthritic changes. Plantar calcaneal heel spur. Spurring the dorsal midfoot. Enthesopathy along the Achilles tendon insertion site. Radiopaque linear density along the mid plantar soft tissues at the level of the proximal metatarsal heads measuring 9 mm, unclear etiology, correlation with physical exam. LEFT: Status post transmetatarsal amputation along the base. No acute visible fracture or dislocation. Plantar calcaneal heel spur. Enthesopathy at the Achilles tendon insertion site. Joint spaces and alignment are otherwise maintained. Soft tissues are unremarkable. Atherosclerotic calcifications are noted. XR/XR foot RT 2V IMPRESSION: 1. No acute visible fracture or dislocation. 2. Bilateral degenerative changes. 3. Radiopaque linear density along the right mid plantar soft tissues at the level of the proximal metatarsal heads measuring 9 mm, unclear etiology, correlation with physical exam as this may a retained foreign body. 4. Status post left transmetatarsal amputation along the base. 5. Plantar calcaneal heel spurs and enthesopathy at the Achilles tendon insertion site.
--- NOTE | ~2023-03-16 | CT_ITS ---
EXAMINATION: CT FOOT WITHOUT CONTRAST, RIGHT CLINICAL INFORMATION: Deep heel ischemic ulcer. Rule out osteomyelitis. COMPARISON: Radiographs 03/16/2023. TECHNIQUE: Multidetector volumetric imaging of the right foot performed without IV contrast. Coronal and sagittal reformatted images are obtained and reviewed. This CT examination was performed using dose optimization techniques as appropriate, variously including the following: *Automated exposure control *Adjustment of mA and/or kV according to patient size (this includes techniques or standardized protocols for targeted exams where dose is matched to indication/reason for exam; i.e. extremities or head) *Use of iterative reconstruction technique DLP: 176 mGy-cm FINDINGS: There is an ulceration overlying the calcaneus. Gas is seen in the soft tissues at the site of ulceration. This gas extends to the bone along the posterior margin of the calcaneus. Gas is seen within the bone, for instance series 3 image 60. No acute fractures. Prominent heel spurs. Degenerative changes in the midfoot with osteophyte formation. Degenerative changes at the ankle. Diffuse muscular atrophy throughout the foot. Vascular calcifications. CT/CT foot RT wo IV con IMPRESSION: Soft tissue ulceration overlying the calcaneus. Gas is seen within the bone along the posterior margin of the calcaneus. This is concerning for osteomyelitis.
--- NOTE | ~2023-03-16 | XR_ITS ---
EXAMINATION: XR CHEST CLINICAL INFORMATION: Fever COMPARISON: Chest radiograph from 06/17/2022 TECHNIQUE: Frontal view of the chest was obtained. FINDINGS: Bilateral low lung volumes. No pneumothorax. Trachea is midline. Cardiac mediastinal silhouette is not enlarged. No large pleural effusion. Osseous structures are intact degenerative changes of the bilateral shoulders. Soft tissues are unremarkable. XR/XR chest 1V IMPRESSION: No acute cardiopulmonary process.
[2023-03-16 13:31] VITALS: BP 146/72; BP 147/73; PULSE 100; PULSE 108; RESP 20; TEMP 38; O2SAT 95; O2SAT 99; BMI 29.6
--- NOTE | 2023-03-16 13:36 | ED_ITS ---
HPI - General Adult General Chief complaint: General Medical Stated complaint: Poss infection per EMS Time Seen by Provider: 03/16/23 13:31 Source: patient, EMS, RN notes reviewed and old records reviewed Mode of arrival: EMS History of Present Illness HPI narrative: 57-year-old male with history of chronic normocytic anemia, insulin-dependent type 2 diabetes, CKD stage III, opiate use disorder on methadone, PAD s/p transmetarsal amputation of the left leg, chronic anemia (baseline hemoglobin of 8), on Plavix, presenting to the ED via EMS from [facility] for suspected osteomyelitis to right heel seen on outpatient x-ray from yesterday at facility. Patient reports substernal chest pain beginning about 2 hours HOSIERY MATER. Also reports malodor and infection to right heel for some time. Denies known fever/chills, drainage from area, SOB, abdominal pain, nausea/vomiting Onset (ago): unknown Related Data Home Medications Medication Instructions Recorded Confirmed clopidogrel 75 mg tablet 1 tab PO DAILY 06/17/22 03/16/23 methadone 10 mg/mL oral concentrate 45 mg PO DAILY 06/17/22 03/16/23 tamsulosin 0.4 mg capsule 1 cap PO BEDTIME 06/17/22 03/16/23 atorvastatin 10 mg tablet 10 mg PO BEDTIME 01/11/23 03/16/23 citalopram 20 mg tablet 20 mg PO DAILY 01/11/23 03/16/23 insulin glargine 100 unit/mL 5 unit subcut BEDTIME 01/11/23 03/16/23 subcutaneous solution (Lantus U-100 Insulin) naloxone 4 mg/actuation nasal 4 mg intranasal Q3M PRN Opioid 01/11/23 03/16/23 spray (Narcan) Overdose omeprazole 20 mg capsule,delayed 20 mg PO DAILY@0630 01/11/23 03/16/23 release acetaminophen 325 mg tablet 650 mg PO Q4H PRN Fever Or Pain 03/16/23 03/16/23 acetaminophen 325 mg tablet 975 mg PO Q8H PRN Pain 03/16/23 03/16/23 aluminum-mag hydroxide-simethicone 15 ml PO Q6H PRN Dyspepsia 03/16/23 03/16/23 200 mg-200 mg-20 mg/5 mL oral susp aspirin 81 mg chewable tablet 81 mg PO DAILY 03/16/23 03/16/23 bisacodyl 10 mg rectal suppository 10 mg NV DAILY PRN Constipation 03/16/23 03/16/23 ferrous sulfate 325 mg (65 mg 325 mg PO BID 03/16/23 03/16/23 iron) tablet hydroxyzine HCl 10 mg tablet 10 mg PO Q6H PRN Anxiety 03/16/23 03/16/23 insulin lispro 100 unit/mL 1 sliding scale dose subcut 03/16/23 03/16/23 subcutaneous solution USEASDIRECTD loperamide 2 mg tablet (Imodium 2 mg PO Q4H PRN Loose Stool 03/16/23 03/16/23 A-D) nifedipine 60 mg tablet,extended 60 mg PO DAILY 03/16/23 03/16/23 release 24 hr ondansetron HCl 4 mg tablet 4 mg PO Q8H PRN Nausea 03/16/23 03/16/23 sodium phosphates 19 gram-7 118 ml NV DAILY PRN Constipation 03/16/23 03/16/23 gram/118 mL enema (Fleet Enema) Previous Rx's Medication Instructions Recorded polyethylene glycol 3350 17 17 g PO DAILY PRN constipation 01/24/23 gram/dose oral powder (Miralax) #119 grams Allergies Allergy/AdvReac Type Severity Reaction Status Date / Time No Known Allergies Allergy Verified 03/14/23 12:56 [No Known Allergies*] Review of Systems Review of Systems: Constitutional: No Fever, No Chills,No Fatigue, No Malaise ENT/Mouth: No Ear Pain, No Nasal Congestion, No sore throat, No Rhinorrhea, No Swallowing Difficulty Eyes: No Eye Pain, No Swelling, No Redness, No Vision Changes Cardiovascular: + Chest Pain, No SOB, No Dyspnea on Exertion, No Orthopnea, No Edema, No Palpitations Respiratory: No Cough, No Sputum, No Dyspnea Gastrointestinal: No Nausea, No Vomiting, No Diarrhea, No Constipation, No Abdominal pain Genitourinary: No irregular bleeding, No Dysuria, No Urinary Frequency, No Hematuria, No Flank Pain Musculoskeletal: + joint pain, No Myalgias, + Joint Swelling Skin: + Skin Lesions, No rash Neuro: No Weakness, No Numbness, No Paresthesias Yes all other systems are reviewed and are negative Constitutional: Constitutional: Reports as per [facility] Past Medical History Attestation statement: The following information was validated with the patient. Source: old records reviewed Medical History Anemia Chronic anemia CKD (chronic kidney disease) Colon cancer Colonic mass Diabetes Diabetes type 2, controlled Diabetic infection of left foot Fever of unknown origin History of prostate cancer Migraine Morbid obesity Opioid use disorder Osteomyelitis PAD (peripheral artery disease) Sleep apnea Surgical History Hx of colectomy (01/20/23) S/P transmetatarsal amputation of foot Family History Family History Mother No pertinent family history Social History Social History Household Members: Spouse Housing: Apartment Do you presently have visiting nurse or other home services: Yes Alcohol intake: never Patient Tobacco Use Status: Never used Tobacco Smoked in Last 30 Days: No Use of substances other than those prescribed or required for medical reasons: No Substance Use Type: Opiates Advance Directives: Yes Advance Directives on File: Yes Advance Directives Date on File: 01/11/23 service: No Current occupational status: disabled Physical Exam ED Vital Signs: Vital Signs - 24 hr 03/16/23 13:31 03/16/23 15:23 Temperature 100.4 F Pulse Rate 100 102 H Respiratory Rate 20 13 Blood Pressure 147/73 H Pulse Oximetry 95 96 Oxygen Delivery Method Room Air Room Air BMI result Body Mass Index 29.6 Const General: cooperative, healthy appearing and no acute distress Orientation/consciousness: oriented to person and oriented to place Limitations: no limitations HENMT Head: Yes normal to inspection and Yes atraumatic Ears: hearing grossly normal bilaterally General nose exam: Normal external nose present Face and sinus: Yes normal facial exam Eyes General: appearance normal, both eyes and all related structures EOM: EOMs intact bilaterally Neck Neck: Yes normal visual inspection and Yes no meningeal signs Resp Effort & Inspection: normal respiratory effort and no respiratory distress Auscultation: clear to auscultation bilaterally, no crackles and no wheezes Cardio Rate: regular rate Heart sounds: S1 normal heart sound present and S2 normal heart sound present GI Inspection: Yes normal to inspection Palpation (GI): Soft to palpation, nontender, no guarding and not rigid General: Yes no CVA tenderness Back/Spine/Pelvis Back: no CVA tenderness Skin Rashes: no rashes Neuro General: oriented to person, oriented to place, tone normal and no meningeal signs Extrem Other: Left heel Right heel Please refer to images above. Left heel with chronically healing ulcer without malodor, fluctuance/induration or drainage Right heel with necrotic area as depicted, malodorous, no fluctuance/induration or expressible drainage. Mild surrounding erythema. Bilaterally neurovascularly intact Course Course Course Narrative: -151--leukocytosis of 15.1. Chronic anemia. Chronic CKD -CRP elevated to 24.1. ESR 119 1550--XR foot LT 2V/XR foot RT 2V IMPRESSION: 1.? No acute visible fracture or dislocation. 2.? Bilateral degenerative changes. 3.? Radiopaque linear density along the right mid plantar soft tissues at the level of the proximal metatarsal heads measuring 9 mm, unclear etiology, correlation with physical exam as this may a retained foreign body. 4.? Status post left transmetatarsal amputation along the base. 5.? Plantar calcaneal heel spurs and enthesopathy at the Achilles tendon insertion site. > no apprecible FB XR chest 1V IMPRESSION: No acute cardiopulmonary process. > patient admitted to hospitalist for further management Medications Administered Discontinued Medications Generic Name Dose Route Start Last Admin Trade Name Freq PRN Reason Stop Dose Admin Acetaminophen 650 mg 03/16/23 13:55 03/16/23 14:43 Acetaminophen 325 Mg Tablet PO 03/16/23 13:56 Not Given ONCE ONE Piperacillin Sod/Tazobactam 50 mls @ 100 mls/hr 03/16/23 13:55 03/16/23 15:23 Sod 3.375 gm/ Sodium Chloride IV 03/16/23 14:24 Infused ONCE ONE Infusion Vancomycin HCl 2,000 mg in 500 mls @ 250 mls/hr 03/16/23 13:55 03/16/23 15:22 Vancomycin/Ns IV 03/16/23 15:54 250 mls/hr ONCE ONE Administration Medical Decision Making Medical Decision Making MDM Narrative: 57-year-old male with history of chronic normocytic anemia, insulin-dependent type 2 diabetes, CKD stage III, opiate use disorder on methadone, PAD s/p transmetarsal amputation of the left leg, chronic anemia (baseline hemoglobin of 8), on Plavix, presenting to the ED via EMS from [facility] for suspected osteomyelitis to right heel. On exam febrile 100.4 orally, NAD, lungs CTA, abdomen soft/nontender, physical exam as above, please refer to images. Necrotic malodorous wound noted to right heel concerning for osteomyelitis. Low suspicion for DVT, CHF or necrotizing fasciitis Plan: Labs, lactic/blood cultures, UA, CXR, IV antibiotics, x-ray, admission Please refer to course for remaining clinical decision making, interpretation of labs/imaging results, and discussions with consultants and/or family members. Differential Diagnosis Differential Diagnoses: The differential diagnosis associated with the presentation includes As above Admission/Observation Consideration of admission/observation: Escalation of care including admi ssion/observation considered Consult Healthcare Provider Management of the patient was discussed with: Hospitalist Lab Data MDM Lab Attestation statement: I reviewed the patient's lab results. 03/16/23 14:27 03/16/23 14:27 Labs: Lab Results 03/16/23 03/16/23 03/16/23 Range/Units 14:26 14:26 14:27 WBC 15.1 H (4.8-10.8) X10*3/uL RBC 3.09 L (4.60-5.80) X10*6/uL Hgb 7.6 L (14.0-18.0) g/dl Hct 25.0 L (42.0-52.0) % MCV 80.9 (80.0-98.0) fL MCH 24.6 L (27.0-33.0) pg MCHC 30.4 L (31.0-36.0) g/dl RDW 15.9 (11.0-16.0) % Plt Count 295 D (160-400) X10*3/uL MPV 10.4 (9.4-12.4) fL Immature Gran % (Auto) 0.6 H (0.0-0.4) % Neut % (Auto) 88.2 H (45-73) % Lymph % (Auto) 4.3 L (20-40) % Victoria % (Auto) 6.4 (2-11) % Eos % (Auto) 0.2 (0-4) % Baso % (Auto) 0.3 (0-2) % Lymph # (Auto) 0.7 L (1.2-4.9) X10*3/uL Victoria # (Auto) 1.0 (0.1-1.2) X10*3/uL Eos # (Auto) 0.0 (0.0-0.4) X10*3/uL Baso # (Auto) 0.1 (0.0-0.2) X10*3/uL Abs Immat Gran (auto) 0.09 H (0.00-0.03) X10*3/uL Absolute Neuts (auto) 13.3 H (2.0-8.3) x10*3/uL Absolute Nucleated RBC 0.000 (0.0-0.012) X10*3/uL Nucleated RBC % (auto) 0.0 (0.0-0.2) /100WBC ESR (0-15) MM/HR PT (11.1-13.3) SEC INR (0.9-1.1) Sodium (135-145) mmol/L Potassium (3.3-5.1) mmol/L Chloride (96-108) mmol/L Carbon Dioxide (22-29) mmol/L Anion Gap (12-20) BUN (9-16) mg/dL Creatinine (0.5-1.4) mg/dL Estim Creat Clear Calc Estimated GFR Random Glucose (60-115) mg/dL Lactic Acid (0.5-2.0) mmol/L Calcium (8.4-10.2) mg/dL Magnesium (1.6-2.6) mg/dL Total Bilirubin (0.0-1.0) mg/dL Direct Bilirubin (0.0-0.5) mg/dL AST (5-37) U/L ALT (0-40) U/L Alkaline Phosphatase (39-117) U/L Troponin I High Sens < 2.7 (<3.5-35.0) ng/L C-Reactive Protein (< or = 0.50) mg/dL B-Natriuretic Peptide 17 (<100) pg/mL Total Protein (6.5-8.0) g/dL Albumin (3.5-5.0) g/dL 03/16/23 03/16/2303/16/23 Range/Units 14:27 14:27 14:27 WBC (4.8-10.8) X10*3/uL RBC (4.60-5.80) X10*6/uL Hgb (14.0-18.0) g/dl Hct (42.0-52.0) % MCV (80.0-98.0) fL MCH (27.0-33.0) pg MCHC (31.0-36.0) g/dl RDW (11.0-16.0) % Plt Count (160-400) X10*3/uL MPV (9.4-12.4) fL Immature Gran % (Auto) (0.0-0.4) % Neut % (Auto) (45-73) % Lymph % (Auto) (20-40) % Victoria % (Auto) (2-11) % Eos % (Auto) (0-4) % Baso % (Auto) (0-2) % Lymph # (Auto) (1.2-4.9) X10*3/uL Victoria # (Auto) (0.1-1.2) X10*3/uL Eos # (Auto) (0.0-0.4) X10*3/uL Baso # (Auto) (0.0-0.2) X10*3/uL Abs Immat Gran (auto) (0.00-0.03) X10*3/uL Absolute Neuts (auto) (2.0-8.3) x10*3/uL Absolute Nucleated RBC (0.0-0.012) X10*3/uL Nucleated RBC % (auto) (0.0-0.2) /100WBC ESR 119 H (0-15) MM/HR PT 15.9 H (11.1-13.3) SEC INR 1.3 H (0.9-1.1) Sodium 134 L (135-145) mmol/L Potassium 3.8 (3.3-5.1) mmol/L Chloride 96 (96-108) mmol/L Carbon Dioxide 30 H (22-29) mmol/L Anion Gap 12 (12-20) BUN 25 H (9-16) mg/dL Creatinine 1.83 H (0.5-1.4) mg/dL Estim Creat Clear Calc 46.5 Estimated GFR 38 Random Glucose 246 H (60-115) mg/dL Lactic Acid (0.5-2.0) mmol/L Calcium 9.1 (8.4-10.2) mg/dL Magnesium 1.7 (1.6-2.6) mg/dL Total Bilirubin 0.4 (0.0-1.0) mg/dL Direct Bilirubin 0.2 (0.0-0.5) mg/dL AST 27 (5-37) U/L ALT 45 H (0-40) U/L Alkaline Phosphatase 117 (39-117) U/L Troponin I High Sens (<3.5-35.0) ng/L C-Reactive Protein 24.18 H (< or = 0.50) mg/dL B-Natriuretic Peptide (<100) pg/mL Total Protein 7.8 (6.5-8.0) g/dL Albumin 3.1 L (3.5-5.0) g/dL 03/16/23 Range/Units 14:27 WBC (4.8-10.8) X10*3/uL RBC (4.60-5.80) X10*6/uL Hgb (14.0-18.0) g/dl Hct (42.0-52.0) % MCV (80.0-98.0) fL MCH (27.0-33.0) pg MCHC (31.0-36.0) g/dl RDW (11.0-16.0) % Plt Count (160-400) X10*3/uL MPV (9.4-12.4) fL Immature Gran % (Auto) (0.0-0.4) % Neut % (Auto) (45-73) % Lymph % (Auto) (20-40) % Victoria % (Auto) (2-11) % Eos % (Auto) (0-4) % Baso % (Auto) (0-2) % Lymph # (Auto) (1.2-4.9) X10*3/uL Victoria # (Auto) (0.1-1.2) X10*3/uL Eos # (Auto) (0.0-0.4) X10*3/uL Baso # (Auto) (0.0-0.2) X10*3/uL Abs Immat Gran (auto) (0.00-0.03) X10*3/uL Absolute Neuts (auto) (2.0-8.3) x10*3/uL Absolute Nucleated RBC (0.0-0.012) X10*3/uL Nucleated RBC % (auto) (0.0-0.2) /100WBC ESR (0-15) MM/HR PT (11.1-13.3) SEC INR (0.9-1.1) Sodium (135-145) mmol/L Potassium (3.3-5.1) mmol/L Chloride (96-108) mmol/L Carbon Dioxide (22-29) mmol/L Anion Gap (12-20) BUN (9-16) mg/dL Creatinine (0.5-1.4) mg/dL Estim Creat Clear Calc Estimated GFR Random Glucose (60-115) mg/dL Lactic Acid 1.5 (0.5-2.0) mmol/L Calcium (8.4-10.2) mg/dL Magnesium (1.6-2.6) mg/dL Total Bilirubin (0.0-1.0) mg/dL Direct Bilirubin (0.0-0.5) mg/dL AST (5-37) U/L ALT (0-40) U/L Alkaline Phosphatase (39-117) U/L Troponin I High Sens (<3.5-35.0) ng/L C-Reactive Protein (< or = 0.50) mg/dL B-Natriuretic Peptide (<100) pg/mL Total Protein (6.5-8.0) g/dL Albumin (3.5-5.0) g/dL Radiology Impression Discussion of test interpretation with radiology: I have reviewed the radiologist's reading. Radiologist Impression: External Record Review External record reviewed: Inpatient record, Office record, Outpatient record, Prior outpatient labs, Prior outpatient radiology, Primary care record and Outside ED record Tests considered The following testing was considered but not selected: As above Prescription Management I considered prescription management with: Pain Medication and Antibiotic Chronic Conditions Patient?s care impacted by: Diabetes Discharge Plan Discharge Clinical Impression: Osteomyelitis, Necrosis Patient Disposition: Admitted As Inpatient
--- NOTE | 2023-03-16 13:53 | ECG_ITS ---
Test Reason : CHEST PAIN Blood Pressure : / mmHG Vent. Rate : 101 BPM Atrial Rate : 101 BPM P-R Int : 148 ms QRS Dur : 078 ms QT Int : 344 ms P-R-T Axes : 041 082 033 degrees QTc Int : 446 ms Sinus tachycardia Otherwise normal ECG When compared with ECG of 25-JAN-2023 07:12, No significant change was found Referred By: Rabia Dudley Electronically Signed By:Colin Pond
[2023-03-16 14:37] LABS: MANUAL DIFF FLAG NO
[2023-03-16] MEDS: Piperacillin Sodium/Tazobactam 3.375 GM in 0.9 % Sodium Chloride 50 ML IV ×2 (14:39→19:43)
[2023-03-16 14:41] LABS: Basophils Absolute Auto 0.1 X10*3/uL (0.0-0.2); Basophils Percent Auto 0.3 % (0-2); Eosinophils Percent Auto 0.2 % (0-4); Hemoglobin 7.6 g/dl (14.0-18.0); Imm Gran Abs Auto 0.09 X10*3/uL (0.00-0.03); Imm Gran Pct Auto 0.6 % (0.0-0.4); Lymphocytes Absolute Auto 0.7 X10*3/uL (1.2-4.9); Lymphocytes Percent Auto 4.3 % (20-40); Mean Corpuscular HGB Conc 30.4 g/dl (31.0-36.0); Mean Corpuscular Hemoglobin 24.6 pg (27.0-33.0); Mean Corpuscular Volume 80.9 fL (80.0-98.0); Mean Platelet Volume 10.4 fL (9.4-12.4); Monocytes Percent Auto 6.4 % (2-11); Neutrophils Absolute Auto 13.3 x10*3/uL (2.0-8.3); Neutrophils Percent Auto 88.2 % (45-73); Platelet Count 295 X10*3/uL (160-400); Red Blood Count 3.09 X10*6/uL (4.60-5.80); Red Cell Distribution Width 15.9 % (11.0-16.0); White Blood Count 15.1 X10*3/uL (4.8-10.8)
[2023-03-16 14:51] LABS: Lactic Acid 1.5 mmol/L (0.5-2.0)
[2023-03-16 15:00] LABS: INTERNATIONAL NORM RATIO 1.3 (0.9-1.1); Prothrombin Time 15.9 SEC (11.1-13.3)
[2023-03-16 15:01] LABS: Alanine Aminotransferase 45 U/L (0-40); Albumin Level 3.1 g/dL (3.5-5.0); Alkaline Phosphatase 117 U/L (39-117); Anion Gap 12 (12-20); Aspartate Amino Transferase 27 U/L (5-37); Bilirubin Direct 0.2 mg/dL (0.0-0.5); Blood Urea Nitrogen 25 mg/dL (9-16); C Reactive Protein 24.18 mg/dL (< or = 0.50); Calcium 9.1 mg/dL (8.4-10.2); Carbon Dioxide 30 mmol/L (22-29); Chloride 96 mmol/L (96-108); Creatinine Clr Calc Pharmacy 46.5; Estimated Glomerular Filt Rate 38; Glucose Random 246 mg/dL (60-115); Magnesium 1.7 mg/dL (1.6-2.6); Potassium 3.8 mmol/L (3.3-5.1); Sodium 134 mmol/L (135-145); Total Protein 7.8 g/dL (6.5-8.0)
[2023-03-16 15:01] LABS: B Type Natriuretic Peptide 17 pg/mL (<100)
--- NOTE | 2023-03-16 15:06 | PHA.MEDREC ---
Pharmacy Consult ? Medication Reconciliation Pharmacy has completed the medication reconciliation. used list from [facility]. Verified methadone from [facility] and spoke with nurse Will. His current dose is 45mg daily and his last dose was this morning at 9am. The medication list does reflect a different dose of 30mg however I entered the dose the nurse told me over the phone.
[2023-03-16 15:21] LABS: Erythrocyte Sedimentation Rate 119 MM/HR (0-15)
[2023-03-16] MEDS: vancomycin/NS 2,000 MG/500 ML PLAST..BAG 250 MG IV (15:22)
[2023-03-16 15:23] VITALS: PULSE 102; RESP 13; O2SAT 96
[2023-03-16 15:39] VITALS: BP 133/30; PULSE 97; RESP 19; TEMP 38.9; O2SAT 96
[2023-03-16 15:39] LABS: Troponin-I High Sensitivity < 2.7 ng/L (<3.5-35.0)
[2023-03-16 15:43] LABS: Bilirubin Total 0.4 mg/dL (0.0-1.0)
--- NOTE | 2023-03-16 15:51 | P.HPHOSP_ITS ---
History of Present Illness Date of Service: 03/16/23 Chief Complaint: Right heel ischar, open wound A 57 years old male with PMH of DMII, PAD post lt transmetatarsal, CKD III, hx DU on Methadone, Presenting with feeling weak and chilly with reported Rt heel blackish wound. The patient can not recall for how long does he have the wound in his heel. He presented from the facility today for worsening odor and discoloration of the right heel wound which he was not sure for how long he has it now. he reports walking around using the walker but spent most of the day sitting or laying. report some chills but denies fever, nausea, vomiting, diarrhea, sob, chest pain, or urinary symptoms. In ED found to be septic with elevated WBCs and HR. started on broad spectrum antibiotics as an XR did not show OM but possible foreign body. Review of Systems Review of Systems: No fever but has chills and weakness No chest pain, palpitation No shortness of breath or coughing No abdominal pain, nausea or vomiting No urinary symptoms RLE heel wound PMFSH Medical History Anemia Chronic anemia CKD (chronic kidney disease) Colon cancer Colonic mass Diabetes Diabetes type 2, controlled Diabetic infection of left foot Fever of unknown origin History of prostate cancer Migraine Morbid obesity Opioid use disorder Osteomyelitis PAD (peripheral artery disease) Sleep apnea Family History Mother No pertinent family history Surgical History Hx of colectomy (01/20/23) S/P transmetatarsal amputation of foot Social History Household Members: Spouse Housing: Apartment Do you presently have visiting nurse or other home services: Yes Alcohol intake: never Patient Tobacco Use Status: Never used Tobacco Substance Use Type: Opiates Advance Directives Date on File: 01/11/23 service: No Current occupational status: disabled Meds Allergies Allergy/AdvReac Type Severity Reaction Status Date / Time No Known Allergies Allergy Verified 03/14/23 12:56 [No Known Allergies*] Active Medications: Current Medications Vancomycin HCl (Vancomycin/Ns) 2,000 mg in 500 mls @ 250 mls/hr IV ONCE ONE Stop: 03/16/23 15:54 Last Admin: 03/16/23 15:22 Dose: 250 mls/hr Home Medications Medication Instructions Recorded Confirmed Last Taken Type clopidogrel 75 mg tablet 1 tab PO DAILY 06/17/22 03/16/23 01/24/23 History methadone 10 mg/mL oral concentrate 45 mg PO DAILY 06/17/22 03/16/23 03/16/23 09:00 History tamsulosin 0.4 mg capsule 1 cap PO BEDTIME 06/17/22 03/16/23 01/24/23 History atorvastatin 10 mg tablet 10 mg PO BEDTIME 01/11/23 03/16/23 01/24/23 History citalopram 20 mg tablet 20 mg PO DAILY 01/11/23 03/16/23 01/24/23 History insulin glargine 100 unit/mL 5 unit subcut BEDTIME 01/11/23 03/16/23 01/24/23 History subcutaneous solution (Lantus U-100 Insulin) naloxone 4 mg/actuation nasal 4 mg intranasal Q3M PRN Opioid 01/11/23 03/16/23 Unknown History spray (Narcan) Overdose omeprazole 20 mg capsule,delayed 20 mg PO DAILY@0630 01/11/23 03/16/23 01/24/23 History release acetaminophen 325 mg tablet 650 mg PO Q4H PRN Fever Or Pain 03/16/23 03/16/23 Unknown History acetaminophen 325 mg tablet 975 mg PO Q8H PRN Pain 03/16/23 03/16/23 Unknown History aluminum-mag hydroxide-simethicone 15 ml PO Q6H PRN Dyspepsia 03/16/23 03/16/23 Unknown History 200 mg-200 mg-20 mg/5 mL oral susp aspirin 81 mg chewable tablet 81 mg PO DAILY 03/16/23 03/16/23 Unknown History bisacodyl 10 mg rectal suppository 10 mg NE DAILY PRN Constipation 03/16/23 03/16/23 Unknown History ferrous sulfate 325 mg (65 mg 325 mg PO BID 03/16/23 03/16/23 Unknown History iron) tablet hydroxyzine HCl 10 mg tablet 10 mg PO Q6H PRN Anxiety 03/16/23 03/16/23 Unknown History insulin lispro 100 unit/mL 1 sliding scale dose subcut 03/16/23 03/16/23 Unknown History subcutaneous solution USEASDIRECTD loperamide 2 mg tablet (Imodium 2 mg PO Q4H PRN Loose Stool 03/16/23 03/16/23 Unknown History A-D) nifedipine 60 mg tablet,extended 60 mg PO DAILY 03/16/23 03/16/23 Unknown History release 24 hr ondansetron HCl 4 mg tablet 4 mg PO Q8H PRN Nausea 03/16/23 03/16/23 Unknown History sodium phosphates 19 gram-7 118 ml NE DAILY PRN Constipation 03/16/23 03/16/23 Unknown History gram/118 mL enema (Fleet Enema) Physical Exam Vital Signs and Narrative: Vital Signs: Last Vital Signs Temp 100.4 F 03/16/23 13:31 Pulse 102 H 03/16/23 15:23 Resp 13 03/16/23 15:23 BP 147/73 H 03/16/23 13:31 Pulse Ox 96 03/16/23 15:23 O2 Del Method Room Air 03/16/23 15:23 BMI result Body Mass Index 29.6 Const: Other: Constitutional : Awake, interactive, not in distress Neck : Normal inspection, Supple Cardiovascular : RRR, no JVP, no lower extremity edema Respiratory : good bilateral air entry, no crackles, wheezes or rhonchi Gastrointestinal: soft, lax, Normal bowel sounds, Non tender Skin : Warm, Dry, Right heel blackish escar with mild surrounding erythema but no significant tenderness, decrease sensation overall in the palm of the foot. peripheral pulses can be felt. Neurological : Alert & oriented x3, No focal deficit Extrem: Other: Left heel Results Labs 03/16/23 14:27 03/16/23 14:27 Labs: Laboratory Results - last 24 hr 03/16/23 03/16/23 03/16/23 14:26 14:27 14:27 MCV 80.9 MCH 24.6 L MCHC 30.4 L RDW 15.9 Plt Count 295 D MPV 10.4 Immature Gran % (Auto) 0.6 H Neut % (Auto) 88.2 H Lymph % (Auto) 4.3 L [place] % (Auto) 6.4 Eos % (Auto) 0.2 Baso % (Auto) 0.3 Lymph # (Auto) 0.7 L [place] # (Auto) 1.0 Eos # (Auto) 0.0 Baso # (Auto) 0.1 Abs Immat Gran (auto) 0.09 H Absolute Neuts (auto) 13.3 H Absolute Nucleated RBC 0.000 Nucleated RBC % (auto) 0.0 ESR 119 H PT INR Anion Gap Estim Creat Clear Calc Estimated GFR Random Glucose Lactic Acid Calcium Magnesium Total Bilirubin Direct Bilirubin AST ALT Alkaline Phosphatase C-Reactive Protein B-Natriuretic Peptide 17 Total Protein Albumin 03/16/23 03/16/23 03/16/23 14:27 14:27 14:27 MCV MCH MCHC RDW Plt Count MPV Immature Gran % (Auto) Neut % (Auto) Lymph % (Auto) [place] % (Auto) Eos % (Auto) Baso % (Auto) Lymph # (Auto) [place] # (Auto) Eos # (Auto) Baso # (Auto) Abs Immat Gran (auto) Absolute Neuts (auto) Absolute Nucleated RBC Nucleated RBC % (auto) ESR PT 15.9 H INR 1.3 H Anion Gap 12 Estim Creat Clear Calc 46.5 Estimated GFR 38 Random Glucose 246 H Lactic Acid 1.5 Calcium 9.1 Magnesium 1.7 Total Bilirubin 0.4 Direct Bilirubin 0.2 AST 27 ALT 45 H Alkaline Phosphatase 117 C-Reactive Protein 24.18 H B-Natriuretic Peptide Total Protein 7.8 Albumin 3.1 L Imaging Radiologist's Impressions: Impressions Chest X-Ray 03/16/23 15:05 IMPRESSION: No acute cardiopulmonary process. Foot X-Ray 03/16/23 15:05 IMPRESSION: 1. No acute visible fracture or dislocation. 2. Bilateral degenerative changes. 3. Radiopaque linear density along the right mid plantar soft tissues at the level of the proximal metatarsal heads measuring 9 mm, unclear etiology, correlation with physical exam as this may a retained foreign body. 4. Status post left transmetatarsal amputation along the base. 5. Plantar calcaneal heel spurs and enthesopathy at the Achilles tendon insertion site. Foot X-Ray 03/16/23 15:05 IMPRESSION: 1. No acute visible fracture or dislocation. 2. Bilateral degenerative changes. 3. Radiopaque linear density along the right mid plantar soft tissues at the level of the proximal metatarsal heads measuring 9 mm, unclear etiology, correlation with physical exam as this may a retained foreign body. 4. Status post left transmetatarsal amputation along the base. 5. Plantar calcaneal heel spurs and enthesopathy at the Achilles tendon insertion site. Assessment and Plan (1) Sepsis: Status: Acute (2) Necrosis: Status: Acute (3) Diabetic foot infection: Status: Acute Plan A 57 years old male with PMH of DMII, PAD post lt transmetatarsal, CKD III, hx DU on Methadone, Presenting with feeling weak and chilly with reported Rt heel blackish wound. Sepsis 2/2 heel wound infection w necrosis likely 2/2 diabetic foot ulcer XR showing no evidence of osteomyelitis but has high ESR of 119 raising suspe cion of underlying bone infection Pending cultures Broad IV antibiotics ID and surgery consults will need debridement of the wound and follow up with wound clinic as outpatient follow Vancomycin trough Type II DM Diabetic diet POC, SSI Lantus Hx Opioid abuse Continue Methadone HTN Nifedipine BPH Tamsulosin PAD ASA, Plavix DVT PPx Lovenox The patient will need at least 2 overnight hospital stay for sepsis pending cultures and possible surgical intervention Time Spent With Patient Time: Total time managing care of this patient today ____ minutes. Quality Stroke Does the patient have a stroke diagnosis?: No VTE Prior VTE?: No VTE Risk Level:: Medical - moderate - high VTE Device Contraindication: Treatment Not Indicated VTE Drug Contraindication: N/A - Med Ordered
[2023-03-16 17:03] VITALS: BP 145/69; PULSE 98; RESP 17; O2SAT 96
[2023-03-16] MEDS: 0.9 % Sodium Chloride 500 ML 999 ML IV (17:05)
--- NOTE | 2023-03-16 17:15 | PHA.PROG ---
Admission Date/Time: March 16, 2023 15:39 Indication: Skin infection, sepsis Weight in k.729 kg Adjusted body weight in K.9 kg [place] body weight in K.1 kg Obesity Dosing Indication % IBW: 129% Serum Creatinine - Last 168 Hours 03/16/23 14:27 Creatinine 1.83 H Estimated CrCl and GFR - Last 168 Hours 03/16/23 14:27 Estim Creat Clear Calc 46.5 Estimated GFR 38 Vancomycin Loading Dose: 2000 mg (23 mg/kg) Current Vancomycin Dosing Regimen: 1250 mg Q24H Date and Time for next Vancomycin Level to be drawn: 03/19 @ 1300 Pharmacist Comments on Vancomycin Plan: Patient received an adequate load dose in the ER on 03/16 @ 1522 Maintenance dose vancomycin 1250 mg Q24H is scheduled to start 03/27 @ 1500. Expected AUC 521 with a trough of 16.2 Level is scheduled for prior to 4th dose Pharmacy will monitor renal function daily Corinne Ramírez PharmD Vancomycin dosing will take advantage of [employer] as a clinical decision support tool that uses Bayesian modeling to calculate individual patient's pharmacokinetic parameters and forecast the patient's drug concentration time course with the target goal AUC 24 range of 400 - 600 mg/L/hr.
[2023-03-16 17:49] VITALS: BP 135/69; PULSE 97; RESP 18; TEMP 37.3; O2SAT 97
[2023-03-16] MEDS: 0.9 % Sodium Chloride 1,000 ML 999 ML IV (17:49)
[2023-03-16 18:23] LABS: Glucose, Whole Blood 206 mg/dL (60-115)
[2023-03-16 19:11] VITALS: BMI 32.9
[2023-03-16 19:16] VITALS: BP 133/62; PULSE 91; RESP 20; TEMP 36.3; O2SAT 97
[2023-03-16 19:22] LABS: Glucose, Whole Blood 175 mg/dL (60-115)
[2023-03-16] MEDS: Ferrous Sulfate 324 MG TABLET.DR PO (19:42)
[2023-03-16] MEDS: Heparin Sodium,Porcine 5,000 UNIT/ML VIAL 5000 UNIT SUBCUT (19:42)
[2023-03-16] MEDS: Tamsulosin HCL 0.4 MG CAPSULE PO (19:42)
[2023-03-16] MEDS: Atorvastatin Calcium 10 MG TABLET PO (19:42)
[2023-03-16] MEDS: 0.9 % Sodium Chloride Flush 3 ML SYRINGE IVFLUSH (19:43)
[2023-03-16] MEDS: Insulin Glargine,Hum.rec.anlog 100 UNIT/ML 10 ML VIAL SUBCUT (19:43)
[2023-03-16] MEDS: Insulin Lispro 100 UNIT/ML 3 ML VIAL SUBCUT (19:43)
[2023-03-17] VITALS (8 sets, daily range): BP systolic 104–146; BP diastolic 60–77; PULSE 73–82; RESP 18; TEMP 36.1–37.1; O2SAT 94–98
[2023-03-17] MEDS: Piperacillin Sodium/Tazobactam 3.375 GM in 0.9 % Sodium Chloride 50 ML IV ×4 (02:49→20:47)
[2023-03-17] MEDS: Omeprazole 20 MG CAPSULE.DR PO (05:38)
[2023-03-17 06:30] LABS: MANUAL DIFF FLAG NO
[2023-03-17 06:36] LABS: Basophils Absolute Auto 0.1 X10*3/uL (0.0-0.2); Basophils Percent Auto 0.4 % (0-2); Eosinophils Absolute Auto 0.1 X10*3/uL (0.0-0.4); Eosinophils Percent Auto 0.5 % (0-4); Hematocrit 21.1 % (42.0-52.0); Imm Gran Abs Auto 0.09 X10*3/uL (0.00-0.03); Imm Gran Pct Auto 0.7 % (0.0-0.4); Lymphocytes Absolute Auto 1.1 X10*3/uL (1.2-4.9); Lymphocytes Percent Auto 8.5 % (20-40); Mean Corpuscular HGB Conc 31.8 g/dl (31.0-36.0); Mean Corpuscular Hemoglobin 25.5 pg (27.0-33.0); Mean Corpuscular Volume 80.2 fL (80.0-98.0); Mean Platelet Volume 10.8 fL (9.4-12.4); Monocytes Absolute Auto 1.2 X10*3/uL (0.1-1.2); Monocytes Percent Auto 8.7 % (2-11); Neutrophils Absolute Auto 10.8 x10*3/uL (2.0-8.3); Neutrophils Percent Auto 81.2 % (45-73); Platelet Count 251 X10*3/uL (160-400); Red Blood Count 2.63 X10*6/uL (4.60-5.80); White Blood Count 13.3 X10*3/uL (4.8-10.8)
[2023-03-17 06:43] LABS: Hemoglobin 6.7 g/dl (14.0-18.0)
[2023-03-17 06:59] LABS: Anion Gap 12 (12-20); Blood Urea Nitrogen 23 mg/dL (9-16); Calcium 8.7 mg/dL (8.4-10.2); Carbon Dioxide 28 mmol/L (22-29); Chloride 100 mmol/L (96-108); Creatinine Clr Calc Pharmacy 55.6; Estimated Glomerular Filt Rate 44; Glucose Random 140 mg/dL (60-115); Potassium 3.9 mmol/L (3.3-5.1); Sodium 136 mmol/L (135-145)
[2023-03-17 07:35] LABS: Glucose, Whole Blood 138 mg/dL (60-115)
[2023-03-17 08:11] LABS: Estimated Average Glucose 151 mg/dL; Hemoglobin A1c % 6.9 %
[2023-03-17 08:19] LABS: Iron 17 mcg/dL (45-160); Percent Iron Saturation 16 % (15-50); Total Iron Binding Capacity 109 mcg/dL (228-428); Unsaturated Iron Binding 92 ug/dL
[2023-03-17] MEDS: Escitalopram Oxalate 10 MG TABLET PO (09:39)
[2023-03-17] MEDS: NIFEdipine ER 60 MG TAB.ER.24 PO (09:39)
[2023-03-17] MEDS: Ferrous Sulfate 324 MG TABLET.DR PO ×2 (09:39→20:47)
[2023-03-17] MEDS: Aspirin 81 MG TAB.CHEW PO (09:39)
[2023-03-17] MEDS: Clopidogrel Bisulfate 75 MG TABLET PO (09:39)
[2023-03-17] MEDS: Heparin Sodium,Porcine 5,000 UNIT/ML VIAL 5000 UNIT SUBCUT ×2 (09:40→20:45)
[2023-03-17] MEDS: methADONE HCl 20 MG/2 ML ORAL.CONC 45 MG PO (09:40)
[2023-03-17] MEDS: 0.9 % Sodium Chloride Flush 3 ML SYRINGE IVFLUSH ×2 (09:40→22:26)
--- NOTE | 2023-03-17 09:58 | HO.PM.IMPN ---
Subjective Subjective Date of Service: 03/17/23 Interval History: complaining of pain in the heel no drainage or fever Pending surgical evaluation Review of Systems Review of Systems: Yes all other systems are reviewed and are negative Physical Exam Vital Signs: Vital Signs: Last Vital Signs Temp 97.5 F 03/17/23 07:07 Pulse 82 03/17/23 07:07 Resp 18 03/17/23 07:07 BP 136/70 03/17/23 07:07 Pulse Ox 94 03/17/23 07:07 O2 Del Method Room Air 03/17/23 07:07 BMI result Body Mass Index 32.9 Const: Other: Constitutional : Awake, interactive, not in distress Neck : Normal inspection, Supple Cardiovascular : RRR, no JVP, no lower extremity edema Respiratory : good bilateral air entry, no crackles, wheezes or rhonchi Gastrointestinal: soft, lax, Normal bowel sounds, Non tender Skin : Warm, Dry, Right heel blackish escar with mild surrounding erythema but no significant tenderness, decrease sensation overall in the palm of the foot. peripheral pulses can be felt. Neurological : Alert & oriented x3, No focal deficit Extrem: Other: Left heel Objective Data Active Medications Acetaminophen (Acetaminophen 325 Mg Tablet) 975 mg PO Q6H PRN PRN Reason: Fever Al Hydroxide/Mg Hydroxide (Magnesium Hydrox/Alum Hydrox 30 Ml Oral.Susp) 15 ml PO Q6H PRN PRN Reason: Dyspepsia Aspirin (Aspirin 81 Mg Tab.Chew) 81 mg PO DAILY [facility] Last Admin: 03/17/23 09:39 Dose: 81 mg Documented By: NORMA Atorvastatin Calcium (Atorvastatin Calcium 10 Mg Tablet) 10 mg PO BEDTIME [facility] Last Admin: 03/16/23 19:42 Dose: 10 mg Documented By: ZHOU Bisacodyl (Bisacodyl 10 Mg Supp.Rect) 10 mg AR DAILY PRN PRN Reason: Constipation Clopidogrel Bisulfate (Clopidogrel Bisulfate 75 Mg Tablet) 75 mg PO DAILY [facility] Last Admin: 03/17/23 09:39 Dose: 75 mg Documented By: NORMA Escitalopram Oxalate (Escitalopram Oxalate 10 Mg Tablet) 10 mg PO DAILY [facility] Last Admin: 03/17/23 09:39 Dose: 10 mg Documented By: NORMA Ferrous Sulfate (Ferrous Sulfate 324 Mg Tablet.) 324 mg PO BID [facility] Last Admin: 03/17/23 09:39 Dose: 324 mg Documented By: NORMA Heparin Sodium (Porcine) (Heparin Sodium,Porcine 5,000 Unit/Ml Vial) 5,000 unit SUBCUT Q12H [facility] Last Admin: 03/17/23 09:40 Dose: 5,000 unit Documented By: NORMA Hydroxyzine HCl (Hydroxyzine Hcl 10 Mg Tablet) 10 mg PO Q6H PRN PRN Reason: Anxiety Piperacillin Sod/Tazobactam (Sod 3.375 gm/ Sodium Chloride) 50 mls @ 100 mls/hr IV Q6H [facility] Last Admin: 03/17/23 09:40 Dose: 100 mls/hr Documented By: NORMA Vancomycin HCl 1,250 mg/ (Sodium Chloride) 250 mls @ 166.667 mls/hr IV Q24H [facility] Insulin Glargine (Insulin Glargine,Hum.Rec.Anlog 100 Unit/Ml 10 Ml Vial) 5 unit SUBCUT BEDTIME [facility] Last Admin: 03/16/23 19:43 Dose: 5 unit Documented By: ZHOU Insulin Human Lispro (Insulin Lispro 100 Unit/Ml 3 Ml Vial) 0 unit SUBCUT QIDACHS [facility]; Protocol Last Admin: 03/17/23 07:40 Dose: Not Given Documented By: NORMA Non-Admin Reason: No Insulin Coverage Loperamide HCl (Loperamide Hcl 2 Mg Capsule) 2 mg PO Q4H PRN PRN Reason: Loose Stool Methadone HCl (Methadone Hcl 20 Mg/2 Ml Oral.Conc) 45 mg PO DAILY [facility] Last Admin: 03/17/23 09:40 Dose: 45 mg Documented By: NORMA Naloxone HCl (Naloxone Hcl Nasal 4 Mg [place]) 4 mg NOSTRILALT Q3M PRN PRN Reason: Opioid Overdose Nifedipine (Nifedipine Er 60 Mg Tab.Er.24) 60 mg PO DAILY [facility]; Protocol Last Admin: 03/17/23 09:39 Dose: 60 mg Documented By: NORMA Omeprazole (Omeprazole 20 Mg Capsule.Dr) 20 mg PO DAILY@0630 [facility] Last Admin: 03/17/23 05:38 Dose: 20 mg Documented By: ZHOU Ondansetron HCl (Ondansetron Hcl 4 Mg/2 Ml Vial) 4 mg IVPUSH Q8H PRN PRN Reason: Nausea and Vomiting Pharmacy Consult (Consult Rx Vancomycin Dosing) 1 each MISCELLANE DAILY PRN PRN Reason: Consult order Polyethylene Glycol (Polyethylene Glycol 3350 17 Gm Powd.Pack) 17 gm PO DAILY PRN PRN Reason: constipation Sodium Biphosphate/Sodium Phosphate (Sodium Phosphate,[place]-Dibasic 133 Ml Enema) 118 ml AR DAILY PRN PRN Reason: Constipation Sodium Chloride (0.9 % Sodium Chloride Flush 3 Ml Syringe) 3 ml IVFLUSH QSHIFT [facility] Last Admin: 03/17/23 09:40 Dose: 3 ml Documented By: NORMA Tamsulosin HCl (Tamsulosin Hcl 0.4 Mg Capsule) 0.4 mg PO BEDTIME [facility] Last Admin: 03/16/23 19:42 Dose: 0.4 mg Documented By: ZHOU Labs 03/17/23 06:08 03/17/23 06:08 Labs: Laboratory Results - last 24 hr 03/16/23 03/16/23 03/16/23 14:26 14:27 14:27 MCV 80.9 MCH 24.6 L MCHC 30.4 L RDW 15.9 Plt Count 295 D MPV 10.4 Immature Gran % (Auto) 0.6 H Neut % (Auto) 88.2 H Lymph % (Auto) 4.3 L [place] % (Auto) 6.4 Eos % (Auto) 0.2 Baso % (Auto) 0.3 Lymph # (Auto) 0.7 L [place] # (Auto) 1.0 Eos # (Auto) 0.0 Baso # (Auto) 0.1 Abs Immat Gran (auto) 0.09 H Absolute Neuts (auto) 13.3 H Absolute Nucleated RBC 0.000 Nucleated RBC % (auto) 0.0 ESR 119 H PT INR Anion Gap Estim Creat Clear Calc Estimated GFR POC Glucose Random Glucose Estimat Average Glucose Hemoglobin A1c % Lactic Acid Calcium Magnesium Iron TIBC % Saturation Unsat Iron Binding Total Bilirubin Direct Bilirubin AST ALT Alkaline Phosphatase C-Reactive Protein B-Natriuretic Peptide 17 Total Protein Albumin 03/16/23 03/16/23 03/16/23 14:27 14:27 14:27 MCV MCH MCHC RDW Plt Count MPV Immature Gran % (Auto) Neut % (Auto) Lymph % (Auto) [place] % (Auto) Eos % (Auto) Baso % (Auto) Lymph # (Auto) [place] # (Auto) Eos # (Auto) Baso # (Auto) Abs Immat Gran (auto) Absolute Neuts (auto) Absolute Nucleated RBC Nucleated RBC % (auto) ESR PT 15.9 H INR 1.3 H Anion Gap 12 Estim Creat Clear Calc 46.5 Estimated GFR 38 POC Glucose Random Glucose 246 H Estimat Average Glucose Hemoglobin A1c % Lactic Acid 1.5 Calcium 9.1 Magnesium 1.7 Iron TIBC % Saturation Unsat Iron Binding Total Bilirubin 0.4 Direct Bilirubin 0.2 AST 27 ALT 45 H Alkaline Phosphatase 117 C-Reactive Protein 24.18 H B-Natriuretic Peptide Total Protein 7.8 Albumin 3.1 L 03/16/23 03/16/23 03/17/23 18:19 19:19 06:08 MCV 80.2 MCH 25.5 L MCHC 31.8 RDW 16.0 Plt Count 251 MPV 10.8 Immature Gran % (Auto) 0.7 H Neut % (Auto) 81.2 H Lymph % (Auto) 8.5 L [place] % (Auto) 8.7 Eos % (Auto) 0.5 Baso % (Auto) 0.4 Lymph # (Auto) 1.1 L [place] # (Auto) 1.2 Eos # (Auto) 0.1 Baso # (Auto) 0.1 Abs Immat Gran (auto) 0.09 H Absolute Neuts (auto) 10.8 H Absolute Nucleated RBC 0.000 Nucleated RBC % (auto) 0.0 ESR PT INR Anion Gap Estim Creat Clear Calc Estimated GFR POC Glucose 206 H 175 H Random Glucose Estimat Average Glucose Hemoglobin A1c % Lactic Acid Calcium Magnesium Iron TIBC % Saturation Unsat Iron Binding Total Bilirubin Direct Bilirubin AST ALT Alkaline Phosphatase C-Reactive Protein B-Natriuretic Peptide Total Protein Albumin 03/17/23 03/17/23 03/17/23 06:08 06:08 07:31 MCV MCH MCHC RDW Plt Count MPV Immature Gran % (Auto) Neut % (Auto) Lymph % (Auto) [place] % (Auto) Eos % (Auto) Baso % (Auto) Lymph # (Auto) [place] # (Auto) Eos # (Auto) Baso # (Auto) Abs Immat Gran (auto) Absolute Neuts (auto) Absolute Nucleated RBC Nucleated RBC % (auto) ESR PT INR Anion Gap 12 Estim Creat Clear Calc 55.6 Estimated GFR 44 POC Glucose 138 H Random Glucose 140 H Estimat Average Glucose 151 Hemoglobin A1c % 6.9 Lactic Acid Calcium 8.7 Magnesium Iron 17 L TIBC 109 L % Saturation 16 Unsat Iron Binding 92 Total Bilirubin Direct Bilirubin AST ALT Alkaline Phosphatase C-Reactive Protein B-Natriuretic Peptide Total Protein Albumin Microbiology Microbiology Results: Microbiology 03/16/23 14:42 Blood Culture - Preliminary Blood - Venous Gram negative blanca Assessment and Plan (1) Diabetic foot infection: Status: Acute (2) Sepsis: Status: Acute (3) Necrosis: Status: Acute (4) Acute on chronic anemia: Status: Acute Plan A 57 years old male with PMH of DMII, PAD post lt transmetatarsal, CKD III, hx DU on Methadone, Presenting with feeling weak and chilly with reported Rt heel blackish wound. Sepsis 2/2 heel wound infection w necrosis likely 2/2 diabetic foot ulcer XR showing no evidence of osteomyelitis but has high ESR of 119 raising suspecion of underlying bone infection Pending cultures Broad IV antibiotics ID and surgery consults will likely need debridement of the wound and follow up with wound clinic as outpatient follow Vancomycin trough Acute on chronic anemia VICTORIA, possible blood loss related check occult give 1 unit of blood start PO Iron supplement Type II DM Diabetic diet POC, SSI Lantus Hx Opioid abuse Continue Methadone HTN Nifedipine BPH Tamsulosin PAD ASA, Plavix DVT PPx Lovenox The patient will need overnight hospital stay for sepsis pending cultures and possible surgical intervention Time Spent With Patient Time: Total time managing care of this patient today ____ minutes. Quality Stroke Does the patient have a stroke diagnosis?: No VTE Prior VTE?: No VTE Risk Level:: Medical - moderate - high VTE Device Contraindication: Treatment Not Indicated VTE Drug Contraindication: N/A - Med Ordered
[2023-03-17 11:36] LABS: Glucose, Whole Blood 209 mg/dL (60-115)
[2023-03-17] MEDS: Insulin Lispro 100 UNIT/ML 3 ML VIAL SUBCUT ×3 (11:56→22:24)
--- NOTE | 2023-03-17 12:12 | MHC.CM.PN ---
IMM 03/17. Pt admitted with osteomyelitis. Pt is from [facility] [place], he uses a walker. D/C plan likely to return to [facility] [place] when medically cleared. Transport via [facility]. HCP on file. PCP: Gissel Brown vax: x 1
--- NOTE | 2023-03-17 12:56 | PM.CNGS ---
History of Present Illness Consult details Consult date: 03/17/23 Narrative: Patient is a 57-year-old male with a plethora of medical problems as well as significant peripheral vascular disease. 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 He now presents with a significant right heel decubitus ulcer. Chart was reviewed and patient evaluated [facility] Past Medical History Medical History Anemia Chronic anemia CKD (chronic kidney disease) Colon cancer Colonic mass Diabetes Diabetes type 2, controlled Diabetic infection of left foot Fever of unknown origin History of prostate cancer Migraine Morbid obesity Opioid use disorder Osteomyelitis PAD (peripheral artery disease) Sleep apnea Family History Family History Mother No pertinent family history Surgical History Surgical History Hx of colectomy (01/20/23) S/P transmetatarsal amputation of foot Social History Social History Household Members: None Housing: Assisted Living Facility Do you presently have visiting nurse or other home services: Yes Alcohol intake: never Patient Tobacco Use Status: Never used Tobacco Substance Use Type: Opiates Advance Directives Date on File: 01/11/23 service: No Current occupational status: disabled Meds Allergies Allergy/AdvReac Type Severity Reaction Status Date / Time No Known Allergies Allergy Verified 03/14/23 12:56 [No Known Allergies*] Active Medications: Current Medications Acetaminophen (Acetaminophen 325 Mg Tablet) 975 mg PO Q6H PRN PRN Reason: Fever Al Hydroxide/Mg Hydroxide (Magnesium Hydrox/Alum Hydrox 30 Ml Oral.Susp) 15 ml PO Q6H PRN PRN Reason: Dyspepsia Aspirin (Aspirin 81 Mg Tab.Chew) 81 mg PO DAILY [facility] Last Admin: 03/17/23 09:39 Dose: 81 mg Atorvastatin Calcium (Atorvastatin Calcium 10 Mg Tablet) 10 mg PO BEDTIME [facility] Last Admin: 03/16/23 19:42 Dose: 10 mg Bisacodyl (Bisacodyl 10 Mg Supp.Rect) 10 mg NC DAILY PRN PRN Reason: Constipation Clopidogrel Bisulfate (Clopidogrel Bisulfate 75 Mg Tablet) 75 mg PO DAILY [facility] Last Admin: 03/17/23 09:39 Dose: 75 mg Escitalopram Oxalate (Escitalopram Oxalate 10 Mg Tablet) 10 mg PO DAILY [facility] Last Admin: 03/17/23 09:39 Dose: 10 mg Ferrous Sulfate (Ferrous Sulfate 324 Mg Tablet.) 324 mg PO BID [facility] Last Admin: 03/17/23 09:39 Dose: 324 mg Heparin Sodium (Porcine) (Heparin Sodium,Porcine 5,000 Unit/Ml Vial) 5,000 unit SUBCUT Q12H [facility] Last Admin: 03/17/23 09:40 Dose: 5,000 unit Hydroxyzine HCl (Hydroxyzine Hcl 10 Mg Tablet) 10 mg PO Q6H PRN PRN Reason: Anxiety Piperacillin Sod/Tazobactam (Sod 3.375 gm/ Sodium Chloride) 50 mls @ 100 mls/hr IV Q6H [facility] Last Infusion: 03/17/23 11:19 Dose: Infused Vancomycin HCl 1,250 mg/ (Sodium Chloride) 250 mls @ 166.667 mls/hr IV Q24H [facility] Insulin Glargine (Insulin Glargine,Hum.Rec.Anlog 100 Unit/Ml 10 Ml Vial) 5 unit SUBCUT BEDTIME [facility] Last Admin: 03/16/23 19:43 Dose: 5 unit Insulin Human Lispro (Insulin Lispro 100 Unit/Ml 3 Ml Vial) 0 unit SUBCUT QIDACHS [facility]; Protocol Last Admin: 03/17/23 11:56 Dose: 4 unit Loperamide HCl (Loperamide Hcl 2 Mg Capsule) 2 mg PO Q4H PRN PRN Reason: Loose Stool Methadone HCl (Methadone Hcl 20 Mg/2 Ml Oral.Conc) 45 mg PO DAILY [facility] Last Admin: 03/17/23 09:40 Dose: 45 mg Naloxone HCl (Naloxone Hcl Nasal 4 Mg [place]) 4 mg NOSTRILALT Q3M PRN PRN Reason: Opioid Overdose Nifedipine (Nifedipine Er 60 Mg Tab.Er.24) 60 mg PO DAILY [facility]; Protocol Last Admin: 03/17/23 09:39 Dose: 60 mg Omeprazole (Omeprazole 20 Mg Capsule.) 20 mg PO DAILY@0630 [facility] Last Admin: 03/17/23 05:38 Dose: 20 mg Ondansetron HCl (Ondansetron Hcl 4 Mg/2 Ml Vial) 4 mg IVPUSH Q8H PRN PRN Reason: Nausea and Vomiting Pharmacy Consult (Consult Rx Vancomycin Dosing) 1 each MISCELLANE DAILY PRN PRN Reason: Consult order Polyethylene Glycol (Polyethylene Glycol 3350 17 Gm Powd.Pack) 17 gm PO DAILY PRN PRN Reason: constipation Sodium Biphosphate/Sodium Phosphate (Sodium Phosphate,[place]-Dibasic 133 Ml Enema) 118 ml [place] DAILY PRN PRN Reason: Constipation Sodium Chloride (0.9 % Sodium Chloride Flush 3 Ml Syringe) 3 ml IVFLUSH QSHIFT [facility] Last Admin: 03/17/23 09:40 Dose: 3 ml Tamsulosin HCl (Tamsulosin Hcl 0.4 Mg Capsule) 0.4 mg PO BEDTIME [facility] Last Admin: 03/16/23 19:42 Dose: 0.4 mg Home Medications Medication Instructions Recorded Confirmed Last Taken Type clopidogrel 75 mg tablet 1 tab PO DAILY 06/17/22 03/16/23 01/24/23 History methadone 10 mg/mL oral concentrate 45 mg PO DAILY 06/17/22 03/16/23 03/16/23 09:00 History tamsulosin 0.4 mg capsule 1 cap PO BEDTIME 06/17/22 03/16/23 01/24/23 History atorvastatin 10 mg tablet 10 mg PO BEDTIME 01/11/23 03/16/23 01/24/23 History citalopram 20 mg tablet 20 mg PO DAILY 01/11/23 03/16/23 01/24/23 History insulin glargine 100 unit/mL 5 unit subcut BEDTIME 01/11/23 03/16/23 01/24/23 History subcutaneous solution (Lantus U-100 Insulin) naloxone 4 mg/actuation nasal 4 mg intranasal Q3M PRN Opioid 01/11/23 03/16/23 Unknown History spray (Narcan) Overdose omeprazole 20 mg capsule,delayed 20 mg PO DAILY@0630 01/11/23 03/16/23 01/24/23 History release acetaminophen 325 mg tablet 650 mg PO Q4H PRN Fever Or Pain 03/16/23 03/16/23 Unknown History acetaminophen 325 mg tablet 975 mg PO Q8H PRN Pain 03/16/23 03/16/23 Unknown History aluminum-mag hydroxide-simethicone 15 ml PO Q6H PRN Dyspepsia 03/16/23 03/16/23 Unknown History 200 mg-200 mg-20 mg/5 mL oral susp aspirin 81 mg chewable tablet 81 mg PO DAILY 03/16/23 03/16/23 Unknown History bisacodyl 10 mg rectal suppository 10 mg NC DAILY PRN Constipation 03/16/23 03/16/23 Unknown History ferrous sulfate 325 mg (65 mg 325 mg PO BID 03/16/23 03/16/23 Unknown History iron) tablet hydroxyzine HCl 10 mg tablet 10 mg PO Q6H PRN Anxiety 03/16/23 03/16/23 Unknown History insulin lispro 100 unit/mL 1 sliding scale dose subcut 03/16/23 03/16/23 Unknown History subcutaneous solution USEASDIRECTD loperamide 2 mg tablet (Imodium 2 mg PO Q4H PRN Loose Stool 03/16/23 03/16/23 Unknown History A-D) nifedipine 60 mg tablet,extended 60 mg PO DAILY 03/16/23 03/16/23 Unknown History release 24 hr ondansetron HCl 4 mg tablet 4 mg PO Q8H PRN Nausea 03/16/23 03/16/23 Unknown History sodium phosphates 19 gram-7 118 ml NC DAILY PRN Constipation 03/16/23 03/16/23 Unknown History gram/118 mL enema (Fleet Enema) Physical Exam Vital Signs: Vital Signs: Last Vital Signs Temp 97.5 F 03/17/23 07:07 Pulse 82 03/17/23 07:07 Resp 18 03/17/23 07:07 BP 136/70 03/17/23 07:07 Pulse Ox 94 03/17/23 07:07 O2 Del Method Room Air 03/17/23 07:07 BMI result Body Mass Index 32.9 Chest: Other: Chest breath sounds bilaterally, HS 1 in 2 Extrem: Other: Approximately 8 x 5 cm right heel fluctuant necrotic decubitus. Left foot trans -met amputation well-healed Results Labs 03/17/23 06:08 03/17/23 06:08 Labs: Abnormal lab results 03/16/23 03/16/23 03/16/23 Range/Units 14:27 14:27 14:27 WBC 15.1 H (4.8-10.8) X10*3/uL RBC 3.09 L (4.60-5.80) X10*6/uL Hgb 7.6 L (14.0-18.0) g/dl Hct 25.0 L (42.0-52.0) % MCH 24.6 L (27.0-33.0) pg MCHC 30.4 L (31.0-36.0) g/dl Immature Gran % (Auto) 0.6 H (0.0-0.4) % Neut % (Auto) 88.2 H (45-73) % Lymph % (Auto) 4.3 L (20-40) % Lymph # (Auto) 0.7 L (1.2-4.9) X10*3/uL Abs Immat Gran (auto) 0.09 H (0.00-0.03) X10*3/uL Absolute Neuts (auto) 13.3 H (2.0-8.3) x10*3/uL ESR 119 H (0-15) MM/HR PT 15.9 H (11.1-13.3) SEC INR 1.3 H (0.9-1.1) Sodium (135-145) mmol/L Carbon Dioxide (22-29) mmol/L BUN (9-16) mg/dL Creatinine (0.5-1.4) mg/dL POC Glucose (60-115) mg/dL Random Glucose (60-115) mg/dL Iron (45-160) mcg/dL TIBC (228-428) mcg/dL ALT (0-40) U/L C-Reactive Protein (< or = 0.50) mg/dL Albumin (3.5-5.0) g/dL Crossmatch 03/16/23 03/16/23 03/16/23 Range/Units 14:27 18:19 19:19 WBC (4.8-10.8) X10*3/uL RBC (4.60-5.80) X10*6/uL Hgb (14.0-18.0) g/dl Hct (42.0-52.0) % MCH (27.0-33.0) pg MCHC (31.0-36.0) g/dl Immature Gran % (Auto) (0.0-0.4) % Neut % (Auto) (45-73) % Lymph % (Auto) (20-40) % Lymph # (Auto) (1.2-4.9) X10*3/uL Abs Immat Gran (auto) (0.00-0.03) X10*3/uL Absolute Neuts (auto) (2.0-8.3) x10*3/uL ESR (0-15) MM/HR PT (11.1-13.3) SEC INR (0.9-1.1) Sodium 134 L (135-145) mmol/L Carbon Dioxide 30 H (22-29) mmol/L BUN 25 H (9-16) mg/dL Creatinine 1.83 H (0.5-1.4) mg/dL POC Glucose 206 H 175 H (60-115) mg/dL Random Glucose 246 H (60-115) mg/dL Iron (45-160) mcg/dL TIBC (228-428) mcg/dL ALT 45 H (0-40) U/L C-Reactive Protein 24.18 H (< or = 0.50) mg/dL Albumin 3.1 L (3.5-5.0) g/dL Crossmatch 03/17/23 03/17/23 03/17/23 Range/Units 06:08 06:08 07:31 WBC 13.3 H (4.8-10.8) X10*3/uL RBC 2.63 L (4.60-5.80) X10*6/uL Hgb 6.7 L* (14.0-18.0) g/dl Hct 21.1 L (42.0-52.0) % MCH 25.5 L (27.0-33.0) pg MCHC (31.0-36.0) g/dl Immature Gran % (Auto) 0.7 H (0.0-0.4) % Neut % (Auto) 81.2 H (45-73) % Lymph % (Auto) 8.5 L (20-40) % Lymph # (Auto) 1.1 L (1.2-4.9) X10*3/uL Abs Immat Gran (auto) 0.09 H (0.00-0.03) X10*3/uL Absolute Neuts (auto) 10.8 H (2.0-8.3) x10*3/uL ESR (0-15) MM/HR PT (11.1-13.3) SEC INR (0.9-1.1) Sodium (135-145) mmol/L Carbon Dioxide (22-29) mmol/L BUN 23 H (9-16) mg/dL Creatinine 1.61 H (0.5-1.4) mg/dL POC Glucose 138 H (60-115) mg/dL Random Glucose 140 H (60-115) mg/dL Iron 17 L (45-160) mcg/dL TIBC 109 L (228-428) mcg/dL ALT (0-40) U/L C-Reactive Protein (< or = 0.50) mg/dL Albumin (3.5-5.0) g/dL Crossmatch 03/17/23 03/17/23 Range/Units 11:13 11:27 WBC (4.8-10.8) X10*3/uL RBC (4.60-5.80) X10*6/uL Hgb (14.0-18.0) g/dl Hct (42.0-52.0) % MCH (27.0-33.0) pg MCHC (31.0-36.0) g/dl Immature Gran % (Auto) (0.0-0.4) % Neut % (Auto) (45-73) % Lymph % (Auto) (20-40) % Lymph # (Auto) (1.2-4.9) X10*3/uL Abs Immat Gran (auto) (0.00-0.03) X10*3/uL Absolute Neuts (auto) (2.0-8.3) x10*3/uL ESR (0-15) MM/HR PT (11.1-13.3) SEC INR (0.9-1.1) Sodium (135-145) mmol/L Carbon Dioxide (22-29) mmol/L BUN (9-16) mg/dL Creatinine (0.5-1.4) mg/dL POC Glucose 209 H (60-115) mg/dL Random Glucose (60-115) mg/dL Iron (45-160) mcg/dL TIBC (228-428) mcg/dL ALT (0-40) U/L C-Reactive Protein (< or = 0.50) mg/dL Albumin (3.5-5.0) g/dL Crossmatch See Detail Short CBC 03/16/23 03/17/23 Range/Units 14:27 06:08 WBC 15.1 H 13.3 H (4.8-10.8) X10*3/uL Hgb 7.6 L 6.7 L* (14.0-18.0) g/dl Hct 25.0 L 21.1 L (42.0-52.0) % Plt Count 295 D 251 (160-400) X10*3/uL BMP 03/16/23 03/17/23 14:27 06:08 Sodium 134 L 136 Potassium 3.8 3.9 Chloride 96 100 Carbon Dioxide 30 H 28 BUN 25 H 23 H Creatinine 1.83 H 1.61 H Calcium 9.1 8.7 Liver Function 03/16/23 Range/Units 14:27 Total Bilirubin 0.4 (0.0-1.0) mg/dL Direct Bilirubin 0.2 (0.0-0.5) mg/dL AST 27 (5-37) U/L ALT 45 H (0-40) U/L Alkaline Phosphatase 117 (39-117) U/L Albumin 3.1 L (3.5-5.0) g/dL All other labs normal. Assessment and Plan (1) Diabetic foot infection: Status: Acute Plan Risks, benefits, alternatives of debridement of right heel wound were reviewed with the patient and included but not limited to bleeding, infection, recurrence, numbness, pain, scarring, possible eventual amputation and the patient wishes to proceed. All questions were answered. This will be placed as an add on case for tomorrow 03/18. Time Spent With Patient Time: Total time managing care of this patient today ____ minutes. Procedures Date of Service Date of Service: 03/17/23
[2023-03-17 13:43] LABS: Appearance Urine Cloudy; Color Urine Yellow; Glucose Urine UA Negative (Negative); Leukocyte Esterase Urine Large (3+) (Negative); Nitrite Urine Negative (Negative); Specific Gravity - Urine 1.015 (1.005-1.025); UMIC TRIGGER UACC YES; Urine Blood Small (1+) (Negative); Urine Ketones Negative (Negative); Urine Protein 30 (1+) mg/dL (Neg-Trace)
[2023-03-17 13:57] LABS: Bacteria Urine 1+ (None Seen); RBC Urine 0-2 /HPF (0-2); Squamous Epithelial Cell Urine 0-2 /HPF (0-2); UACC Culture Trigger YES; WBC Clumps Urine Present; WBC Urine >50 /HPF (0-5)
[2023-03-17 15:55] LABS: Glucose, Whole Blood 210 mg/dL (60-115)
--- NOTE | 2023-03-17 17:58 | PC.NURSE ---
1 unit of PRBCs finished transfusing at 17:20. The full 350mL transfused with no signs of a transfusion reaction. Pt tolerated well. Post-transfusion vitals are as follows 98.7F, 80, 18, 130/66, and 97% on RA.
[2023-03-17] MEDS: vancomycin HCL 1,250 MG in 0.9 % Sodium Chloride 250 ML 166.67 MG IV (18:14)
[2023-03-17] MEDS: Acetaminophen 325 MG TABLET 975 MG PO (20:44)
[2023-03-17] MEDS: Tamsulosin HCL 0.4 MG CAPSULE PO (20:46)
[2023-03-17] MEDS: Atorvastatin Calcium 10 MG TABLET PO (20:47)
[2023-03-17 21:03] LABS: Glucose, Whole Blood 202 mg/dL (60-115)
[2023-03-17] MEDS: Insulin Glargine,Hum.rec.anlog 100 UNIT/ML 10 ML VIAL SUBCUT (22:25)
--- NOTE | 2023-03-17 22:37 | W.PM.IDCN ---
History of Present Illness Data of Consult Service Date: 03/17/23 Requesting physician: Tanja Jimenes Primary Care Provider: Gissel Patino MD HPI Reason for consult: necrotic right heel,bacteremia,sepsis concerns He presents with dark necrotic heel on right he is not sure how long ,think weeks. He is at [facility] since falls and cannot walk well. I see his Lani Acevedo in past. He has odor to area. He has left TMA. Review of Systems Review of Systems: Yes all other systems are reviewed and are negative [facility] Past Medical History Medical History Anemia Chronic anemia CKD (chronic kidney disease) Colon cancer Colonic mass Diabetes Diabetes type 2, controlled Diabetic infection of left foot Fever of unknown origin History of prostate cancer Migraine Morbid obesity Opioid use disorder Osteomyelitis PAD (peripheral artery disease) Sleep apnea Family History Family History Mother No pertinent family history Family history: reviewed and not pertinent Surgical History Surgical History Hx of colectomy (01/20/23) S/P transmetatarsal amputation of foot Social History Social History Household Members: None Housing: Assisted Living Facility Do you presently have visiting nurse or other home services: Yes Alcohol intake: never Patient Tobacco Use Status: Never used Tobacco Substance Use Type: Opiates Advance Directives Date on File: 01/11/23 service: No Current occupational status: disabled Meds Allergies Allergy/AdvReac Type Severity Reaction Status Date / Time No Known Allergies Allergy Verified 03/14/23 12:56 [No Known Allergies*] Active Medications: Current Medications Acetaminophen (Acetaminophen 325 Mg Tablet) 975 mg PO Q6H PRN PRN Reason: Fever Last Admin: 03/17/23 20:44 Dose: 975 mg Al Hydroxide/Mg Hydroxide (Magnesium Hydrox/Alum Hydrox 30 Ml Oral.Susp) 15 ml PO Q6H PRN PRN Reason: Dyspepsia Aspirin (Aspirin 81 Mg Tab.Chew) 81 mg PO DAILY [facility] Last Admin: 03/17/23 09:39 Dose: 81 mg Atorvastatin Calcium (Atorvastatin Calcium 10 Mg Tablet) 10 mg PO BEDTIME [facility] Last Admin: 03/17/23 20:47 Dose: 10 mg Bisacodyl (Bisacodyl 10 Mg Supp.Rect) 10 mg [place] DAILY PRN PRN Reason: Constipation Clopidogrel Bisulfate (Clopidogrel Bisulfate 75 Mg Tablet) 75 mg PO DAILY [facility] Last Admin: 03/17/23 09:39 Dose: 75 mg Escitalopram Oxalate (Escitalopram Oxalate 10 Mg Tablet) 10 mg PO DAILY [facility] Last Admin: 03/17/23 09:39 Dose: 10 mg Ferrous Sulfate (Ferrous Sulfate 324 Mg Tablet.Dr) 324 mg PO BID [facility] Last Admin: 03/17/23 20:47 Dose: 324 mg Heparin Sodium (Porcine) (Heparin Sodium,Porcine 5,000 Unit/Ml Vial) 5,000 unit SUBCUT Q12H [facility] Last Admin: 03/17/23 20:45 Dose: 5,000 unit Hydroxyzine HCl (Hydroxyzine Hcl 10 Mg Tablet) 10 mg PO Q6H PRN PRN Reason: Anxiety Piperacillin Sod/Tazobactam (Sod 3.375 gm/ Sodium Chloride) 50 mls @ 100 mls/hr IV Q6H [facility] Last Infusion: 03/17/23 21:20 Dose: Infused Vancomycin HCl 1,250 mg/ (Sodium Chloride) 250 mls @ 166.667 mls/hr IV Q24H [facility] Last Admin: 03/17/23 18:14 Dose: 166.67 mls/hr Insulin Glargine (Insulin Glargine,Hum.Rec.Anlog 100 Unit/Ml 10 Ml Vial) 5 unit SUBCUT BEDTIME [facility] Last Admin: 03/17/23 22:25 Dose: 5 unit Insulin Human Lispro (Insulin Lispro 100 Unit/Ml 3 Ml Vial) 0 unit SUBCUT QIDACHS [facility]; Protocol Last Admin: 03/17/23 22:24 Dose: 4 unit Loperamide HCl (Loperamide Hcl 2 Mg Capsule) 2 mg PO Q4H PRN PRN Reason: Loose Stool Methadone HCl (Methadone Hcl 20 Mg/2 Ml Oral.Conc) 45 mg PO DAILY [facility] Last Admin: 03/17/23 09:40 Dose: 45 mg Naloxone HCl (Naloxone Hcl Nasal 4 Mg [place]) 4 mg NOSTRILALT Q3M PRN PRN Reason: Opioid Overdose Nifedipine (Nifedipine Er 60 Mg Tab.Er.24) 60 mg PO DAILY [facility]; Protocol Last Admin: 03/17/23 09:39 Dose: 60 mg Omeprazole (Omeprazole 20 Mg Capsule.) 20 mg PO DAILY@0630 [facility] Last Admin: 03/17/23 05:38 Dose: 20 mg Ondansetron HCl (Ondansetron Hcl 4 Mg/2 Ml Vial) 4 mg IVPUSH Q8H PRN PRN Reason: Nausea and Vomiting Pharmacy Consult (Consult Rx Vancomycin Dosing) 1 each MISCELLANE DAILY PRN PRN Reason: Consult order Polyethylene Glycol (Polyethylene Glycol 3350 17 Gm Powd.Pack) 17 gm PO DAILY PRN PRN Reason: constipation Sodium Biphosphate/Sodium Phosphate (Sodium Phosphate,[place]-Dibasic 133 Ml Enema) 118 ml [place] DAILY PRN PRN Reason: Constipation Sodium Chloride (0.9 % Sodium Chloride Flush 3 Ml Syringe) 3 ml IVFLUSH QSHIFT [facility] Last Admin: 03/17/23 22:26 Dose: 3 ml Tamsulosin HCl (Tamsulosin Hcl 0.4 Mg Capsule) 0.4 mg PO BEDTIME [facility] Last Admin: 03/17/23 20:46 Dose: 0.4 mg Home Medications Medication Instructions Recorded Confirmed Last Taken Type clopidogrel 75 mg tablet 1 tab PO DAILY 06/17/22 03/16/23 01/24/23 History methadone 10 mg/mL oral concentrate 45 mg PO DAILY 06/17/22 03/16/23 03/16/23 09:00 History tamsulosin 0.4 mg capsule 1 cap PO BEDTIME 06/17/22 03/16/23 01/24/23 History atorvastatin 10 mg tablet 10 mg PO BEDTIME 01/11/23 03/16/23 01/24/23 History citalopram 20 mg tablet 20 mg PO DAILY 01/11/23 03/16/23 01/24/23 History insulin glargine 100 unit/mL 5 unit subcut BEDTIME 01/11/23 03/16/23 01/24/23 History subcutaneous solution (Lantus U-100 Insulin) naloxone 4 mg/actuation nasal 4 mg intranasal Q3M PRN Opioid 01/11/23 03/16/23 Unknown History spray (Narcan) Overdose omeprazole 20 mg capsule,delayed 20 mg PO DAILY@0630 01/11/23 03/16/23 01/24/23 History release acetaminophen 325 mg tablet 650 mg PO Q4H PRN Fever Or Pain 03/16/23 03/16/23 Unknown History acetaminophen 325 mg tablet 975 mg PO Q8H PRN Pain 03/16/23 03/16/23 Unknown History aluminum-mag hydroxide-simethicone 15 ml PO Q6H PRN Dyspepsia 03/16/23 03/16/23 Unknown History 200 mg-200 mg-20 mg/5 mL oral susp aspirin 81 mg chewable tablet 81 mg PO DAILY 03/16/23 03/16/23 Unknown History bisacodyl 10 mg rectal suppository 10 mg [place] DAILY PRN Constipation 03/16/23 03/16/23 Unknown History ferrous sulfate 325 mg (65 mg 325 mg PO BID 03/16/23 03/16/23 Unknown History iron) tablet hydroxyzine HCl 10 mg tablet 10 mg PO Q6H PRN Anxiety 03/16/23 03/16/23 Unknown History insulin lispro 100 unit/mL 1 sliding scale dose subcut 03/16/23 03/16/23 Unknown History subcutaneous solution USEASDIRECTD loperamide 2 mg tablet (Imodium 2 mg PO Q4H PRN Loose Stool 03/16/23 03/16/23 Unknown History A-D) nifedipine 60 mg tablet,extended 60 mg PO DAILY 03/16/23 03/16/23 Unknown History release 24 hr ondansetron HCl 4 mg tablet 4 mg PO Q8H PRN Nausea 03/16/23 03/16/23 Unknown History sodium phosphates 19 gram-7 118 ml [place] DAILY PRN Constipation 03/16/23 03/16/23 Unknown History gram/118 mL enema (Fleet Enema) Physical Exam Vital Signs: Vital Signs: Last Vital Signs Temp 97.4 F 03/17/23 19:20 Pulse 73 03/17/23 19:20 Resp 18 03/17/23 19:20 BP 136/64 03/17/23 19:20 Pulse Ox 98 03/17/23 19:20 O2 Del Method Room Air 03/17/23 19:20 BMI result Body Mass Index 32.9 Const: General: cooperative HEENT: Head: Yes normal to inspection Face and sinus: Yes normal facial exam Mouth: Normal oral and palatal mucosa present Teeth and gingiva: dentition normal Eyes: General: appearance normal, both eyes and all related structures Pupils: Equal, round and reactive pupils present Resp: Effort & Inspection: normal respiratory effort Cardio: Rate: regular rate Rhythm: regular rhythm GI: Palpation (GI): Soft to palpation and nontender : General: Yes no CVA tenderness Back/Spine/Pelvis: Back: no CVA tenderness Skin: General skin exam: no rashes or lesions noted Neuro: General: moves all extremities Cranial nerves: Yes Equal, round and reactive pupils present Extrem: Other: right necrotic heel left TMA clean diminished pulses Psych: Appearance: grossly normal Results Labs 03/17/23 06:08 03/17/23 06:08 Labs: Short CBC 03/17/23 Range/Units 06:08 WBC 13.3 H (4.8-10.8) X10*3/uL Hgb 6.7 L* (14.0-18.0) g/dl Hct 21.1 L (42.0-52.0) % Plt Count 251 (160-400) X10*3/uL BMP 03/17/23 06:08 Sodium 136 Potassium 3.9 Chloride 100 Carbon Dioxide 28 BUN 23 H Creatinine 1.61 H Calcium 8.7 Urine 03/17/23 Range/Units 11:40 Urine Color Yellow Urine Appearance Cloudy Urine pH 6.0 (5.0-9.0) Ur Specific [place] 1.015 (1.005-1.025) Urine Protein 30 (1+) H (Neg-Trace) mg/dL Urine Glucose (UA) Negative (Negative) mg/dL Microbiology Microbiology Results: Microbiology 03/16/23 14:42 Blood - Venous Blood Culture - Preliminary Gram negative blanca Prelim: GPC Gram Stain only 03/16/23 14:26 Blood - Venous Blood Culture - Preliminary Assessment and Plan (1) Diabetic foot infection: Status: Acute There is concern over OM He has CRI. He has h/o MRSA and other organisms. (2) Sepsis: Status: Acute Plan Would continue Vancomycin and Zosyn for now. Await cultures bacteremia. Check echo evaluate endocarditis due to duration of complaints. Imaging useful of heel,MRI or CT Time Spent With Patient Time: Total time managing care of this patient today ____ minutes.
[2023-03-18] VITALS (9 sets, daily range): BP systolic 93–154; BP diastolic 56–82; PULSE 63–92; RESP 14–18; TEMP 36–36.9; O2SAT 95–100
[2023-03-18] MEDS: Piperacillin Sodium/Tazobactam 3.375 GM in 0.9 % Sodium Chloride 50 ML IV ×4 (04:41→20:35)
[2023-03-18 06:36] LABS: Hematocrit 25.7 % (42.0-52.0); Hemoglobin 8.1 g/dl (14.0-18.0); Mean Corpuscular HGB Conc 31.5 g/dl (31.0-36.0); Mean Corpuscular Volume 82.6 fL (80.0-98.0); Mean Platelet Volume 10.6 fL (9.4-12.4); Platelet Count 278 X10*3/uL (160-400); Red Blood Count 3.11 X10*6/uL (4.60-5.80); Red Cell Distribution Width 16.8 % (11.0-16.0); White Blood Count 10.3 X10*3/uL (4.8-10.8)
[2023-03-18 06:49] LABS: Anion Gap 12 (12-20); Blood Urea Nitrogen 28 mg/dL (9-16); Calcium 8.9 mg/dL (8.4-10.2); Carbon Dioxide 30 mmol/L (22-29); Chloride 101 mmol/L (96-108); Creatinine Clr Calc Pharmacy 57.1; Estimated Glomerular Filt Rate 46; Glucose Random 175 mg/dL (60-115); Potassium 3.8 mmol/L (3.3-5.1); Sodium 139 mmol/L (135-145)
--- NOTE | 2023-03-18 07:00 | CA_ITS ---
Transthoracic Echocardiogram Patient (Last, First, Middle): Ulysses Acevedo, Gender: Male Date of : 1965 Age: 57 Procedure Date: 03/18/2023 Procedure Type: Transthoracic Echocardiogram [place] [facility] [place]: 170.18 cm Weight: 95.26 kg BSA: 2.06 m2 Heart Rate: bpm BP: 126 / 66 mmHg Lead Bi Developer: Referring MD: Tanja Jimenes MD Symptoms: R O Endocarditis for prolonged skin infection Study Quality: Adequate ECG Rhythm: Sinus Conclusions: - Normal left ventricular cavity size. There is moderately increased left ventricular wall thickness. The left ventricular systolic function is hyperdynamic. The visually estimated ejection fraction is >70%. There is no evidence of regional wall motion abnormalities. Diastolic function is normal for age. - Mildly increased right ventricular cavity size. There is normal right ventricular systolic function. - The right ventricular systolic pressure is 37 mmHg. Normal right atrial pressure. Mild pulmonary hypertension is present. - There is mild dilatation of the ascending aorta measuring 3.50 cm. Findings Left Ventricle Normal left ventricular cavity size. There is moderately increased left ventricular wall thickness. The left ventricular systolic function is hyperdynamic. The visually estimated ejection fraction is >70%. There is no evidence of regional wall motion abnormalities. Diastolic function is normal for age. Right Ventricle Mildly increased right ventricular cavity size. There is normal right ventricular systolic function. Atria The left atrium is normal in size. Aortic Valve Normal aortic valve structure and function. There is no aortic valve stenosis. There is no aortic valve regurgitation. Mitral Valve Normal mitral valve structure and function. There is no mitral valve regurgitation. There is no mitral valve stenosis. Pulmonic Valve The pulmonic valve is likely normal. Tricuspid Valve Normal tricuspid valve structure. There is no tricuspid valve regurgitation. The right ventricular systolic pressure is 37 mmHg. Normal right atrial pressure. Mild pulmonary hypertension is present. Great Vessels There is mild dilatation of the ascending aorta measuring 3.50 cm. The visualized portions of the pulmonary artery and branches are normal. Venous The inferior vena cava is normal in size and collapses greater than 50% with inspiration. Pericardium/Pleural There is no evidence of pericardial effusion. Prior Study Comparison No prior study available for comparison. Measurements 2D Linear Measurements RVIDd: 3.95 RVIDd Index: 1.92 IVSd: 1.55 0.6-0.9/0.6-1.0 cm LVIDd: 4.02 3.9-5.3/4.2-5.9 cm LVIDd Index: 1.95 2.4-3.2/2.2-3.1 cm/m2 LVIDs: 2.25 2.0-3.6 cm LVPWd: 1.32 0.7-1.1 cm Ao Root: 3.60 2.1-3.5 cm LA Diam: 3.30 2.7-3.8/3.0-4.0 cm LAIDs Index: 1.60 1.5-2.3 cm/m2 LV Mass: 272.60 67-162/88-224 g LV Mass Index: 132.33 43-95/49-115 g/m2 LVOT Diam: 2.40 3.0+(-)1.3 cm Mitral Valve MV Pk E: 0.73 MV PK A: 1.07 MV Decel Time: 92.00 E/A: 0.70 E'Lateral: 11.20 E'Medial: 9.68 E/E' Med: 7.50 E/E' Lat: 6.50 PHT: 27.00 MVA PHT: 8.15 Decel Owen: 7.88 Aortic Valve AoV Pk John: 1.78 AoV Mn John: 1.06 AoV VTI: 0.24 AoV Pk Grad: 13.00 Aov Mn Grad: 6.00 CHRISTIANE Cont.VTI: 4.20 LVOT LVOT Pk John: 1.01 LVOT Mn John: 0.68 LVOT VTI: 0.22 LVOT Pk Grad: 4.00 LVOT Mn Grad: 2.00 LVOT Diam: 2.40 LVOT Area: 4.52 Diastolic Function MV Pk E: 0.73 MV Pk A: 1.07 E/A: 0.70 E'Medial: 9.68 E/E' Med: 7.50 E' Laterial: 11.20 E/E' Lat: 6.50 Right Ventricle TAPSE (mm): 25.00 TVS' John: 26.00 Tricuspid Valve TR Pk John: 2.93 TR Pk Grad: 34.00 RA Press: 3.00 RVSP: 37.00 Great Vessels Aorta Ao Root-2D: 3.60 2.0-3.7 cm Ao Asc: 3.50 2.1-3.4 cm Pulmonary Valve PV Pk John: 1.45 Peak PV Grad: 8.00 Updated in Other Vendor System with Status of Final Colin Pond MD electronically signed on 03/19/2023 10:16:18 AM with status of Final
[2023-03-18 07:28] LABS: Glucose, Whole Blood 167 mg/dL (60-115)
--- NOTE | 2023-03-18 08:13 | P.CDIM_ITS ---
PROVIDER RESPONSE TEXT: To clarify, the appropriate diagnosis supported by the clinical indicators: Iron deficiency anemia 2nd chronic blood loss QUERY TEXT: PHYSICIAN'S DOCUMENTATION REQUEST Date of Query: 03/17/2023 11:04 AM EDT Patient Name: Ulysses Acevedo Admit Date: 03/16/2023 Dear Tanja Jimenes, A review of the medical record indicates additional documentation may be needed. Please review below and update the documentation accordingly. Clinical Indicators: PN: Acute on chronic anemia VICTORIA, possible blood loss related give 1 unit blood HGB 6.7 HCT 21.1 Based on the above, could you clarify which of the following is the most likely type of anemia you ar e evaluating, treating, and/or monitoring? Iron deficiency anemia 2nd to acute on chronic blood loss Iron deficiency anemia 2nd chronic blood loss Other please specify Other (explain)Clinically unable to determine (explain)Thank you, Abby Ordonez, CCS, CDIS Use of terms such as suspected, likely, concern for, or probable (associated with a specific diagnosi s that is being evaluated, monitored, or treated as if it exists) are acceptable and can be coded in the inpatient se tting, when documented at the time of discharge. Please use your independent medical judgment in providing your response. THIS QUERY IS PART OF THE PERMANENT MEDICAL RECORD
[2023-03-18] MEDS: Escitalopram Oxalate 10 MG TABLET PO (08:31)
[2023-03-18] MEDS: NIFEdipine ER 60 MG TAB.ER.24 PO (08:31)
[2023-03-18] MEDS: methADONE HCl 20 MG/2 ML ORAL.CONC 45 MG PO (08:31)
[2023-03-18] MEDS: 0.9 % Sodium Chloride Flush 3 ML SYRINGE IVFLUSH ×3 (08:32→23:07)
[2023-03-18 11:05] LABS: Glucose, Whole Blood 198 mg/dL (60-115)
--- NOTE | 2023-03-18 11:30 | PC.NURSE ---
pt refused to remove bracelet on right wrist prior to going to surgery, Receiving RN Amy notified
--- NOTE | 2023-03-18 11:40 | HO.PM.IMPN ---
Subjective Subjective Date of Service: 03/18/23 Interval History: complaining of pain in the heel no drainage or fever waiting surgical intervention Review of Systems Review of Systems: Yes all other systems are reviewed and are negative Physical Exam Vital Signs: Vital Signs: Last Vital Signs Temp 97.1 F 03/18/23 07:05 Pulse 75 03/18/23 07:05 Resp 18 03/18/23 07:05 BP 136/68 03/18/23 07:05 Pulse Ox 95 03/18/23 07:05 O2 Del Method Room Air 03/18/23 07:05 BMI result Body Mass Index 32.9 Const: Other: Constitutional : Awake, interactive, not in distress Neck : Normal inspection, Supple Cardiovascular : RRR, no JVP, no lower extremity edema Respiratory : good bilateral air entry, no crackles, wheezes or rhonchi Gastrointestinal: soft, lax, Normal bowel sounds, Non tender Skin : Warm, Dry, Right heel blackish escar with mild surrounding erythema but no significant tenderness, decrease sensation overall in the palm of the foot. peripheral pulses can be felt. Neurological : Alert & oriented x3, No focal deficit Extrem: Other: Left heel Objective Data Active Medications Acetaminophen (Acetaminophen 325 Mg Tablet) 975 mg PO Q6H PRN PRN Reason: Fever Last Admin: 03/17/23 20:44 Dose: 975 mg Documented By: SMITH Al Hydroxide/Mg Hydroxide (Magnesium Hydrox/Alum Hydrox 30 Ml Oral.Susp) 15 ml PO Q6H PRN PRN Reason: Dyspepsia Aspirin (Aspirin 81 Mg Tab.Chew) 81 mg PO DAILY [facility] Last Admin: 03/18/23 08:17 Dose: Not Given Documented By: NORMA Non-Admin Reason: pt has debridement today Atorvastatin Calcium (Atorvastatin Calcium 10 Mg Tablet) 10 mg PO BEDTIME [facility] Last Admin: 03/17/23 20:47 Dose: 10 mg Documented By: SMITH Bisacodyl (Bisacodyl 10 Mg Supp.Rect) 10 mg [place] DAILY PRN PRN Reason: Constipation Clopidogrel Bisulfate (Clopidogrel Bisulfate 75 Mg Tablet) 75 mg PO DAILY [facility] Last Admin: 03/18/23 08:17 Dose: Not Given Documented By: NORMA Non-Admin Reason: pt has debridement today Escitalopram Oxalate (Escitalopram Oxalate 10 Mg Tablet) 10 mg PO DAILY [facility] Last Admin: 03/18/23 08:31 Dose: 10 mg Documented By: NORMA Ferrous Sulfate (Ferrous Sulfate 324 Mg Tablet.) 324 mg PO BID [facility] Last Admin: 03/18/23 08:39 Dose: Not Given Documented By: NORMA Non-Admin Reason: NPO Heparin Sodium (Porcine) (Heparin Sodium,Porcine 5,000 Unit/Ml Vial) 5,000 unit SUBCUT Q12H [facility] Last Admin: 03/18/23 08:17 Dose: Not Given Documented By: NORMA Non-Admin Reason: pt has debridement today Hydroxyzine HCl (Hydroxyzine Hcl 10 Mg Tablet) 10 mg PO Q6H PRN PRN Reason: Anxiety Piperacillin Sod/Tazobactam (Sod 3.375 gm/ Sodium Chloride) 50 mls @ 100 mls/hr IV Q6H [facility] Last Admin: 03/18/23 10:20 Dose: 100 mls/hr Documented By: NORMA Vancomycin HCl 1,250 mg/ (Sodium Chloride) 250 mls @ 166.667 mls/hr IV Q24H [facility] Last Infusion: 03/17/23 20:30 Dose: 0 mls/hr Documented By: SMITH Insulin Glargine (Insulin Glargine,Hum.Rec.Anlog 100 Unit/Ml 10 Ml Vial) 5 unit SUBCUT BEDTIME [facility] Last Admin: 03/17/23 22:25 Dose: 5 unit Documented By: SMITH Insulin Human Lispro (Insulin Lispro 100 Unit/Ml 3 Ml Vial) 0 unit SUBCUT QIDACHS [facility]; Protocol Last Admin: 03/18/23 08:15 Dose: Not Given Documented By: NORMA Non-Admin Reason: NPO Loperamide HCl (Loperamide Hcl 2 Mg Capsule) 2 mg PO Q4H PRN PRN Reason: Loose Stool Methadone HCl (Methadone Hcl 20 Mg/2 Ml Oral.Conc) 45 mg PO DAILY [facility] Last Admin: 03/18/23 08:31 Dose: 45 mg Documented By: NORMA Naloxone HCl (Naloxone Hcl Nasal 4 Mg [place]) 4 mg NOSTRILALT Q3M PRN PRN Reason: Opioid Overdose Nifedipine (Nifedipine Er 60 Mg Tab.Er.24) 60 mg PO DAILY [facility]; Protocol Last Admin: 03/18/23 08:31 Dose: 60 mg Documented By: NORMA Omeprazole (Omeprazole 20 Mg Capsule.Dr) 20 mg PO DAILY@0630 [facility] Last Admin: 03/18/23 06:30 Dose: Not Given Documented By: SMITH Non-Admin Reason: NPO Ondansetron HCl (Ondansetron Hcl 4 Mg/2 Ml Vial) 4 mg IVPUSH Q8H PRN PRN Reason: Nausea and Vomiting Pharmacy Consult (Consult Rx Vancomycin Dosing) 1 each MISCELLANE DAILY PRN PRN Reason: Consult order Polyethylene Glycol (Polyethylene Glycol 3350 17 Gm Powd.Pack) 17 gm PO DAILY PRN PRN Reason: constipation Sodium Biphosphate/Sodium Phosphate (Sodium Phosphate,[place]-Dibasic 133 Ml Enema) 118 ml [place] DAILY PRN PRN Reason: Constipation Sodium Chloride (0.9 % Sodium Chloride Flush 3 Ml Syringe) 3 ml IVFLUSH QSHIFT [facility] Last Admin: 03/18/23 08:32 Dose: 3 ml Documented By: NORMA Tamsulosin HCl (Tamsulosin Hcl 0.4 Mg Capsule) 0.4 mg PO BEDTIME [facility] Last Admin: 03/17/23 20:46 Dose: 0.4 mg Documented By: SMITH Labs 03/18/23 06:22 03/18/23 06:22 Labs: Laboratory Results - last 24 hr 03/17/23 03/17/23 03/17/23 11:13 11:40 15:42 MCV MCH MCHC RDW Plt Count MPV Absolute Nucleated RBC Nucleated RBC % (auto) Anion Gap Estim Creat Clear Calc Estimated GFR POC Glucose 210 H Random Glucose Calcium Urine Color Yellow Urine Appearance Cloudy Urine pH 6.0 Ur Specific [place] 1.015 Urine Protein 30 (1+) H Urine Glucose (UA) Negative Urine Ketones Negative Urine Blood Small (1+) H Urine Nitrite Negative Ur Leukocyte Esterase Large (3+) H Urine RBC 0-2 Urine WBC >50 H Urine WBC Clumps Present Ur Squamous Epith Cells 0-2 Urine Bacteria 1+ Hyaline Casts 3-5 Blood Type AB Positive Antibody Screen NEGATIVE Crossmatch See Detail 03/17/23 03/18/23 03/18/23 20:50 06:22 06:22 MCV 82.6 MCH 26.0 L MCHC 31.5 RDW 16.8 H Plt Count 278 MPV 10.6 Absolute Nucleated RBC 0.000 Nucleated RBC % (auto) 0.0 Anion Gap 12 Estim Creat Clear Calc 57.1 Estimated GFR 46 POC Glucose 202 H Random Glucose 175 H Calcium 8.9 Urine Color Urine Appearance Urine pH Ur Specific [place] Urine Protein Urine Glucose (UA) Urine Ketones Urine Blood Urine Nitrite Ur Leukocyte Esterase Urine RBC Urine WBC Urine WBC Clumps Ur Squamous Epith Cells Urine Bacteria Hyaline Casts Blood Type Antibody Screen Crossmatch 03/18/23 03/18/23 03/18/23 06:22 07:07 11:02 MCV MCH MCHC RDW Plt Count MPV Absolute Nucleated RBC Nucleated RBC % (auto) Anion Gap Estim Creat Clear Calc Cancelled Estimated GFR Cancelled POC Glucose 167 H 198 H Random Glucose Calcium Urine Color Urine Appearance Urine pH Ur Specific [place] Urine Protein Urine Glucose (UA) Urine Ketones Urine Blood Urine Nitrite Ur Leukocyte Esterase Urine RBC Urine WBC Urine WBC Clumps Ur Squamous Epith Cells Urine Bacteria Hyaline Casts Blood Type Antibody Screen Crossmatch Microbiology Microbiology Results: Microbiology 03/16/23 14:42 Blood Culture - Preliminary Blood - Venous Gram negative blanca Coag negative Staphylococcus 03/16/23 14:26 Blood Culture - Preliminary Blood - Venous Gram negative blanca Assessment and Plan (1) Acute on chronic anemia: Status: Acute (2) Diabetic foot infection: Status: Acute (3) Sepsis: Status: Acute (4) Necrosis: Status: Acute Plan A 57 years old male with PMH of DMII, PAD post lt transmetatarsal, CKD III, hx DU on Methadone, Presenting with feeling weak and chilly with reported Rt heel blackish wound. Sepsis 2/2 heel wound infection w necrosis likely 2/2 diabetic foot ulcer XR showing no evidence of osteomyelitis but has high ESR of 119 raising suspecion of underlying bone infection Pending cultures Broad IV antibiotics ID, check MRI\CT to r\o OM Surgery to do surgical debridement will likely need follow up with wound clinic as outpatient follow Vancomycin trough Acute on chronic anemia VICTORIA, possible chronic blood loss related check occult give 1 unit of blood with good response Hb of 8 PO Iron supplement Type II DM Diabetic diet POC, SSI Lantus Hx Opioid abuse Continue Methadone HTN Nifedipine BPH Tamsulosin PAD ASA, Plavix DVT PPx Lovenox The patient will need overnight hospital stay for sepsis pending cultures and need of surgical intervention Time Spent With Patient Time: Total time managing care of this patient today ____ minutes. Quality Stroke Does the patient have a stroke diagnosis?: No VTE Prior VTE?: No VTE Risk Level:: Medical - moderate - high VTE Device Contraindication: Treatment Not Indicated VTE Drug Contraindication: N/A - Med Ordered
--- NOTE | 2023-03-18 12:03 | MHC.CM.PN ---
EMR reviewed and per MD rounds, pt is not medically cleared for D/C due to pending surgical debridement of right heel wound due to take place today. CM will continue to follow.
--- NOTE | 2023-03-18 12:18 | P.CONAN_ITS ---
[facility] Active Problems Active Problems: All Active Problems (Updated 03/17/23 @ 10:26 by Tanja Jimenes MD) Acute on chronic anemia (Acute) Diabetic foot infection (Acute) Sepsis (Acute) Necrosis (Acute) S/P right colectomy (Acute) Morbid obesity (Acute) Osteomyelitis (Acute) Acute kidney injury (Acute) Anemia (Acute) Normocytic anemia (Acute) Hyperglycemia due to diabetes mellitus (Acute) Status post transmetatarsal amputation of left foot (Acute) Urinary retention (Acute) Acute kidney injury superimposed on CKD (Acute) Diabetic wet gangrene of the foot (Acute) S/P transmetatarsal amputation of foot (Acute) Anemia (Acute) Painless rectal bleeding (Acute) Melena (Acute) Colon cancer (Acute) Colonic mass (Acute) PAD (peripheral artery disease) (Acute) Diabetic infection of left foot (Acute) Opioid use disorder (Acute) Past Medical History Medical History Anemia Chronic anemia CKD (chronic kidney disease) Colon cancer Colonic mass Diabetes Diabetes type 2, controlled Diabetic infection of left foot Fever of unknown origin History of prostate cancer Migraine Morbid obesity Opioid use disorder Osteomyelitis PAD (peripheral artery disease) Sleep apnea Family History Family History Mother No pertinent family history Family history of problems with anesthesia: No Surgical History Surgical History Hx of colectomy (01/20/23) S/P transmetatarsal amputation of foot History of Problems with Anesthesia: No Social History Social History Household Members: None Housing: Assisted Living Facility Do you presently have visiting nurse or other home services: Yes Alcohol intake: never Patient Tobacco Use Status: Never used Tobacco Substance Use Type: Opiates Advance Directives Date on File: 01/11/23 service: No Current occupational status: disabled Meds Allergies Allergy/AdvReac Type Severity Reaction Status Date / Time No Known Allergies Allergy Verified 03/14/23 12:56 [No Known Allergies*] Active Medications: Current Medications Acetaminophen (Acetaminophen 325 Mg Tablet) 975 mg PO Q6H PRN PRN Reason: Fever Last Admin: 03/17/23 20:44 Dose: 975 mg Al Hydroxide/Mg Hydroxide (Magnesium Hydrox/Alum Hydrox 30 Ml Oral.Susp) 15 ml PO Q6H PRN PRN Reason: Dyspepsia Aspirin (Aspirin 81 Mg Tab.Chew) 81 mg PO DAILY [facility] Last Admin: 03/18/23 08:17 Dose: Not Given Atorvastatin Calcium (Atorvastatin Calcium 10 Mg Tablet) 10 mg PO BEDTIME [facility] Last Admin: 03/17/23 20:47 Dose: 10 mg Bisacodyl (Bisacodyl 10 Mg Supp.Rect) 10 mg [place] DAILY PRN PRN Reason: Constipation Clopidogrel Bisulfate (Clopidogrel Bisulfate 75 Mg Tablet) 75 mg PO DAILY [facility] Last Admin: 03/18/23 08:17 Dose: Not Given Escitalopram Oxalate (Escitalopram Oxalate 10 Mg Tablet) 10 mg PO DAILY [facility] Last Admin: 03/18/23 08:31 Dose: 10 mg Ferrous Sulfate (Ferrous Sulfate 324 Mg Tablet.Dr) 324 mg PO BID [facility] Last Admin: 03/18/23 08:39 Dose: Not Given Heparin Sodium (Porcine) (Heparin Sodium,Porcine 5,000 Unit/Ml Vial) 5,000 unit SUBCUT Q12H [facility] Last Admin: 03/18/23 08:17 Dose: Not Given Hydroxyzine HCl (Hydroxyzine Hcl 10 Mg Tablet) 10 mg PO Q6H PRN PRN Reason: Anxiety Piperacillin Sod/Tazobactam (Sod 3.375 gm/ Sodium Chloride) 50 mls @ 100 mls/hr IV Q6H [facility] Last Admin: 03/18/23 10:20 Dose: 100 mls/hr Vancomycin HCl 1,250 mg/ (Sodium Chloride) 250 mls @ 166.667 mls/hr IV Q24H [facility] Last Infusion: 03/17/23 20:30 Dose: Infused Insulin Glargine (Insulin Glargine,Hum.Rec.Anlog 100 Unit/Ml 10 Ml Vial) 5 unit SUBCUT BEDTIME [facility] Last Admin: 03/17/23 22:25 Dose: 5 unit Insulin Human Lispro (Insulin Lispro 100 Unit/Ml 3 Ml Vial) 0 unit SUBCUT QIDACHS [facility]; Protocol Last Admin: 03/18/23 08:15 Dose: Not Given Loperamide HCl (Loperamide Hcl 2 Mg Capsule) 2 mg PO Q4H PRN PRN Reason: Loose Stool Methadone HCl (Methadone Hcl 20 Mg/2 Ml Oral.Conc) 45 mg PO DAILY [facility] Last Admin: 03/18/23 08:31 Dose: 45 mg Naloxone HCl (Naloxone Hcl Nasal 4 Mg [place]) 4 mg NOSTRILALT Q3M PRN PRN Reason: Opioid Overdose Nifedipine (Nifedipine Er 60 Mg Tab.Er.24) 60 mg PO DAILY [facility]; Protocol Last Admin: 03/18/23 08:31 Dose: 60 mg Omeprazole (Omeprazole 20 Mg Capsule.Dr) 20 mg PO DAILY@0630 [facility] Last Admin: 03/18/23 06:30 Dose: Not Given Ondansetron HCl (Ondansetron Hcl 4 Mg/2 Ml Vial) 4 mg IVPUSH Q8H PRN PRN Reason: Nausea and Vomiting Pharmacy Consult (Consult Rx Vancomycin Dosing) 1 each MISCELLANE DAILY PRN PRN Reason: Consult order Polyethylene Glycol (Polyethylene Glycol 3350 17 Gm Powd.Pack) 17 gm PO DAILY PRN PRN Reason: constipation Sodium Biphosphate/Sodium Phosphate (Sodium Phosphate,[place]-Dibasic 133 Ml Enema) 118 ml [place] DAILY PRN PRN Reason: Constipation Sodium Chloride (0.9 % Sodium Chloride Flush 3 Ml Syringe) 3 ml IVFLUSH QSHIFT [facility] Last Admin: 03/18/23 08:32 Dose: 3 ml Tamsulosin HCl (Tamsulosin Hcl 0.4 Mg Capsule) 0.4 mg PO BEDTIME [facility] Last Admin: 03/17/23 20:46 Dose: 0.4 mg Home Medications Medication Instructions Recorded Confirmed Last Taken Type clopidogrel 75 mg tablet 1 tab PO DAILY 06/17/22 03/16/23 01/24/23 History methadone 10 mg/mL oral concentrate 45 mg PO DAILY 06/17/22 03/16/23 03/16/23 09:00 History tamsulosin 0.4 mg capsule 1 cap PO BEDTIME 06/17/22 03/16/23 01/24/23 History atorvastatin 10 mg tablet 10 mg PO BEDTIME 01/11/23 03/16/23 01/24/23 History citalopram 20 mg tablet 20 mg PO DAILY 01/11/23 03/16/23 01/24/23 History insulin glargine 100 unit/mL 5 unit subcut BEDTIME 01/11/23 03/16/23 01/24/23 History subcutaneous solution (Lantus U-100 Insulin) naloxone 4 mg/actuation nasal 4 mg intranasal Q3M PRN Opioid 01/11/23 03/16/23 Unknown History spray (Narcan) Overdose omeprazole 20 mg capsule,delayed 20 mg PO DAILY@0630 01/11/23 03/16/23 01/24/23 History release acetaminophen 325 mg tablet 650 mg PO Q4H PRN Fever Or Pain 03/16/23 03/16/23 Unknown History acetaminophen 325 mg tablet 975 mg PO Q8H PRN Pain 03/16/23 03/16/23 Unknown History aluminum-mag hydroxide-simethicone 15 ml PO Q6H PRN Dyspepsia 03/16/23 03/16/23 Unknown History 200 mg-200 mg-20 mg/5 mL oral susp aspirin 81 mg chewable tablet 81 mg PO DAILY 03/16/23 03/16/23 Unknown History bisacodyl 10 mg rectal suppository 10 mg CA DAILY PRN Constipation 03/16/23 03/16/23 Unknown History ferrous sulfate 325 mg (65 mg 325 mg PO BID 03/16/23 03/16/23 Unknown History iron) tablet hydroxyzine HCl 10 mg tablet 10 mg PO Q6H PRN Anxiety 03/16/23 03/16/23 Unknown History insulin lispro 100 unit/mL 1 sliding scale dose subcut 03/16/23 03/16/23 Unknown History subcutaneous solution USEASDIRECTD loperamide 2 mg tablet (Imodium 2 mg PO Q4H PRN Loose Stool 03/16/23 03/16/23 Unknown History A-D) nifedipine 60 mg tablet,extended 60 mg PO DAILY 03/16/23 03/16/23 Unknown History release 24 hr ondansetron HCl 4 mg tablet 4 mg PO Q8H PRN Nausea 03/16/23 03/16/23 Unknown History sodium phosphates 19 gram-7 118 ml CA DAILY PRN Constipation 03/16/23 03/16/23 Unknown History gram/118 mL enema (Fleet Enema) Exam Exam Date and Time: March 18, 2023 1218 Height,Weight and Vital Signs: Height 5 ft 7 in Weight 95.3 kg Last Vital Signs Temp 97.8 F 03/18/23 12:14 Pulse 73 03/18/23 12:14 Resp 16 03/18/23 12:14 BP 126/66 03/18/23 12:14 Pulse Ox 97 03/18/23 12:14 O2 Del Method Room Air 03/18/23 12:14 Pertinent Lab Results Pertinent Lab Results: Laboratory Tests 03/16/23 03/16/23 03/16/23 14:26 14:26 14:27 WBC 15.1 H RBC 3.09 L Hgb 7.6 L Hct 25.0 L MCV 80.9 MCH 24.6 L MCHC 30.4 L RDW 15.9 Plt Count 295 D MPV 10.4 Immature Gran % (Auto) 0.6 H Neut % (Auto) 88.2 H Lymph % (Auto) 4.3 L [place] % (Auto) 6.4 Eos % (Auto) 0.2 Baso % (Auto) 0.3 Lymph # (Auto) 0.7 L [place] # (Auto) 1.0 Eos # (Auto) 0.0 Baso # (Auto) 0.1 Abs Immat Gran (auto) 0.09 H Absolute Neuts (auto) 13.3 H Absolute Nucleated RBC 0.000 Nucleated RBC % (auto) 0.0 Smear Path Review ESR PT INR Sodium Potassium Chloride Carbon Dioxide Anion Gap BUN Creatinine Estim Creat Clear Calc Estimated GFR POC Glucose Random Glucose Estimat Average Glucose Hemoglobin A1c % Lactic Acid Calcium Magnesium Iron TIBC % Saturation Unsat Iron Binding Total Bilirubin Direct Bilirubin AST ALT Alkaline Phosphatase Troponin I High Sens < 2.7 C-Reactive Protein B-Natriuretic Peptide 17 Total Protein Albumin Urine Color Urine Appearance Urine pH Ur Specific [place] Urine Protein Urine Glucose (UA) Urine Ketones Urine Blood Urine Nitrite Ur Leukocyte Esterase Urine RBC Urine WBC Urine WBC Clumps Ur Squamous Epith Cells Urine Bacteria Hyaline Casts Blood Type Antibody Screen Crossmatch 03/16/23 03/16/23 03/16/23 14:27 14:27 14:27 WBC RBC Hgb Hct MCV MCH MCHC RDW Plt Count MPV Immature Gran % (Auto) Neut % (Auto) Lymph % (Auto) [place] % (Auto) Eos % (Auto) Baso % (Auto) Lymph # (Auto) [place] # (Auto) Eos # (Auto) Baso # (Auto) Abs Immat Gran (auto) Absolute Neuts (auto) Absolute Nucleated RBC Nucleated RBC % (auto) Smear Path Review ESR 119 H PT 15.9 H INR 1.3 H Sodium 134 L Potassium 3.8 Chloride 96 Carbon Dioxide 30 H Anion Gap 12 BUN 25 H Creatinine 1.83 H Estim Creat Clear Calc 46.5 Estimated GFR 38 POC Glucose Random Glucose 246 H Estimat Average Glucose Hemoglobin A1c % Lactic Acid Calcium 9.1 Magnesium 1.7 Iron TIBC % Saturation Unsat Iron Binding Total Bilirubin 0.4 Direct Bilirubin 0.2 AST 27 ALT 45 H Alkaline Phosphatase 117 Troponin I High Sens C-Reactive Protein 24.18 H B-Natriuretic Peptide Total Protein 7.8 Albumin 3.1 L Urine Color Urine Appearance Urine pH Ur Specific [place] Urine Protein Urine Glucose (UA) Urine Ketones Urine Blood Urine Nitrite Ur Leukocyte Esterase Urine RBC Urine WBC Urine WBC Clumps Ur Squamous Epith Cells Urine Bacteria Hyaline Casts Blood Type Antibody Screen Crossmatch 03/16/23 03/16/23 03/16/23 14:27 18:19 19:19 WBC RBC Hgb Hct MCV MCH MCHC RDW Plt Count MPV Immature Gran % (Auto) Neut % (Auto) Lymph % (Auto) [place] % (Auto) Eos % (Auto) Baso % (Auto) Lymph # (Auto) [place] # (Auto) Eos # (Auto) Baso # (Auto) Abs Immat Gran (auto) Absolute Neuts (auto) Absolute Nucleated RBC Nucleated RBC % (auto) Smear Path Review ESR PT INR Sodium Potassium Chloride Carbon Dioxide Anion Gap BUN Creatinine Estim Creat Clear Calc Estimated GFR POC Glucose 206 H 175 H Random Glucose Estimat Average Glucose Hemoglobin A1c % Lactic Acid 1.5 Calcium Magnesium Iron TIBC % Saturation Unsat Iron Binding Total Bilirubin Direct Bilirubin AST ALT Alkaline Phosphatase Troponin I High Sens C-Reactive Protein B-Natriuretic Peptide Total Protein Albumin Urine Color Urine Appearance Urine pH Ur Specific [place] Urine Protein Urine Glucose (UA) Urine Ketones Urine Blood Urine Nitrite Ur Leukocyte Esterase Urine RBC Urine WBC Urine WBC Clumps Ur Squamous Epith Cells Urine Bacteria Hyaline Casts Blood Type Antibody Screen Crossmatch 03/17/23 03/17/23 03/17/23 06:08 06:08 06:08 WBC 13.3 H RBC 2.63 L Hgb 6.7 L* Hct 21.1 L MCV 80.2 MCH 25.5 L MCHC 31.8 RDW 16.0 Plt Count 251 MPV 10.8 Immature Gran % (Auto) 0.7 H Neut % (Auto) 81.2 H Lymph % (Auto) 8.5 L [place] % (Auto) 8.7 Eos % (Auto) 0.5 Baso % (Auto) 0.4 Lymph # (Auto) 1.1 L [place] # (Auto) 1.2 Eos # (Auto) 0.1 Baso # (Auto) 0.1 Abs Immat Gran (auto) 0.09 H Absolute Neuts (auto) 10.8 H Absolute Nucleated RBC 0.000 Nucleated RBC % (auto) 0.0 Smear Path Review SEE NOTE ESR PT INR Sodium 136 Potassium 3.9 Chloride 100 Carbon Dioxide 28 Anion Gap 12 BUN 23 H Creatinine 1.61 H Estim Creat Clear Calc 55.6 Estimated GFR 44 POC Glucose Random Glucose 140 H Estimat Average Glucose 151 Hemoglobin A1c % 6.9 Lactic Acid Calcium 8.7 Magnesium Iron 17 L TIBC 109 L % Saturation 16 Unsat Iron Binding 92 Total Bilirubin Direct Bilirubin AST ALT Alkaline Phosphatase Troponin I High Sens C-Reactive Protein B-Natriuretic Peptide Total Protein Albumin Urine Color Urine Appearance Urine pH Ur Specific [place] Urine Protein Urine Glucose (UA) Urine Ketones Urine Blood Urine Nitrite Ur Leukocyte Esterase Urine RBC Urine WBC Urine WBC Clumps Ur Squamous Epith Cells Urine Bacteria Hyaline Casts Blood Type Antibody Screen Crossmatch 03/17/23 03/17/23 03/17/23 07:31 11:13 11:27 WBC RBC Hgb Hct MCV MCH MCHC RDW Plt Count MPV Immature Gran % (Auto) Neut % (Auto) Lymph % (Auto) [place] % (Auto) Eos % (Auto) Baso % (Auto) Lymph # (Auto) [place] # (Auto) Eos # (Auto) Baso # (Auto) Abs Immat Gran (auto) Absolute Neuts (auto) Absolute Nucleated RBC Nucleated RBC % (auto) Smear Path Review ESR PT INR Sodium Potassium Chloride Carbon Dioxide Anion Gap BUN Creatinine Estim Creat Clear Calc Estimated GFR POC Glucose 138 H 209 H Random Glucose Estimat Average Glucose Hemoglobin A1c % Lactic Acid Calcium Magnesium Iron TIBC % Saturation Unsat Iron Binding Total Bilirubin Direct Bilirubin AST ALT Alkaline Phosphatase Troponin I High Sens C-Reactive Protein B-Natriuretic Peptide Total Protein Albumin Urine Color Urine Appearance Urine pH Ur Specific [place] Urine Protein Urine Glucose (UA) Urine Ketones Urine Blood Urine Nitrite Ur Leukocyte Esterase Urine RBC Urine WBC Urine WBC Clumps Ur Squamous Epith Cells Urine Bacteria Hyaline Casts Blood Type AB Positive Antibody Screen NEGATIVE Crossmatch See Detail 0803/17/23 03/17/23 11:40 15:42 20:50 WBC RBC Hgb Hct MCV MCH MCHC RDW Plt Count MPV Immature Gran % (Auto) Neut % (Auto) Lymph % (Auto) [place] % (Auto) Eos % (Auto) Baso % (Auto) Lymph # (Auto) [place] # (Auto) Eos # (Auto) Baso # (Auto) Abs Immat Gran (auto) Absolute Neuts (auto) Absolute Nucleated RBC Nucleated RBC % (auto) Smear Path Review ESR PT INR Sodium Potassium Chloride Carbon Dioxide Anion Gap BUN Creatinine Estim Creat Clear Calc Estimated GFR POC Glucose 210 H 202 H Random Glucose Estimat Average Glucose Hemoglobin A1c % Lactic Acid Calcium Magnesium Iron TIBC % Saturation Unsat Iron Binding Total Bilirubin Direct Bilirubin AST ALT Alkaline Phosphatase Troponin I High Sens C-Reactive Protein B-Natriuretic Peptide Total Protein Albumin Urine Color Yellow Urine Appearance Cloudy Urine pH 6.0 Ur Specific [place] 1.015 Urine Protein 30 (1+) H Urine Glucose (UA) Negative Urine Ketones Negative Urine Blood Small (1+) H Urine Nitrite Negative Ur Leukocyte Esterase Large (3+) H Urine RBC 0-2 Urine WBC >50 H Urine WBC Clumps Present Ur Squamous Epith Cells 0-2 Urine Bacteria 1+ Hyaline Casts 3-5 Blood Type Antibody Screen Crossmatch 03/18/23 03/18/23 03/18/23 06:22 06:22 06:22 WBC 10.3 RBC 3.11 L Hgb 8.1 L D Hct 25.7 L D MCV 82.6 MCH 26.0 L MCHC 31.5 RDW 16.8 H Plt Count 278 MPV 10.6 Immature Gran % (Auto) Neut % (Auto) Lymph % (Auto) [place] % (Auto) Eos % (Auto) Baso % (Auto) Lymph # (Auto) [place] # (Auto) Eos # (Auto) Baso # (Auto) Abs Immat Gran (auto) Absolute Neuts (auto) Absolute Nucleated RBC 0.000 Nucleated RBC % (auto) 0.0 Smear Path Review ESR PT INR Sodium 139 Potassium 3.8 Chloride 101 Carbon Dioxide 30 H Anion Gap 12 BUN 28 H Creatinine 1.57 H Cancelled Estim Creat Clear Calc 57.1 Cancelled Estimated GFR 46 Cancelled POC Glucose Random Glucose 175 H Estimat Average Glucose Hemoglobin A1c % Lactic Acid Calcium 8.9 Magnesium Iron TIBC % Saturation Unsat Iron Binding Total Bilirubin Direct Bilirubin AST ALT Alkaline Phosphatase Troponin I High Sens C-Reactive Protein B-Natriuretic Peptide Total Protein Albumin Urine Color Urine Appearance Urine pH Ur Specific [place] Urine Protein Urine Glucose (UA) Urine Ketones Urine Blood Urine Nitrite Ur Leukocyte Esterase Urine RBC Urine WBC Urine WBC Clumps Ur Squamous Epith Cells Urine Bacteria Hyaline Casts Blood Type Antibody Screen Crossmatch 03/18/23 03/18/23 07:07 11:02 WBC RBC Hgb Hct MCV MCH MCHC RDW Plt Count MPV Immature Gran % (Auto) Neut % (Auto) Lymph % (Auto) [place] % (Auto) Eos % (Auto) Baso % (Auto) Lymph # (Auto) [place] # (Auto) Eos # (Auto) Baso # (Auto) Abs Immat Gran (auto) Absolute Neuts (auto) Absolute Nucleated RBC Nucleated RBC % (auto) Smear Path Review ESR PT INR Sodium Potassium Chloride Carbon Dioxide Anion Gap BUN Creatinine Estim Creat Clear Calc Estimated GFR POC Glucose 167 H 198 H Random Glucose Estimat Average Glucose Hemoglobin A1c % Lactic Acid Calcium Magnesium Iron TIBC % Saturation Unsat Iron Binding Total Bilirubin Direct Bilirubin AST ALT Alkaline Phosphatase Troponin I High Sens C-Reactive Protein B-Natriuretic Peptide Total Protein Albumin Urine Color Urine Appearance Urine pH Ur Specific [place] Urine Protein Urine Glucose (UA) Urine Ketones Urine Blood Urine Nitrite Ur Leukocyte Esterase Urine RBC Urine WBC Urine WBC Clumps Ur Squamous Epith Cells Urine Bacteria Hyaline Casts Blood Type Antibody Screen Crossmatch Airway Mallampati Class: III TM Dist: >3cm Neck ROM: Full Assessment and Plan Assessment Anesthesia Assessment: Anesthesia Plan Discussed and Chart Reviewed Final Anesthetic Review Family History of Problems with Anesthesia: No History of Problems with Anesthesia: No NPO: Yes ASA Class: IV Final Preanesthetic Review: No Changes in Pt Med Stat, Meds/Allgs Chart Reviewed, Consent Obtained/Reviewed and Anes Risks/Benef Reviewed Patient Risk: High Procedure Risk: Low Anesthetic Plan Anesthetic Plan: GA Disposition: Standard PACU
[2023-03-18 12:28] LABS: Glucose, Whole Blood 185 mg/dL (60-115)
--- NOTE | 2023-03-18 12:59 | W.PM.OPN ---
Operative Note Operative Note Date of Service: 03/18/23 Narrative: Preoperative diagnosis: [] necrotic right heel decubitus Postop diagnosis: [] same Procedure [] debridement right heel decubitus Surgeon: [] Dhruv Evaporator Repairer: [] Type of Anesthesia: [] MAC Indication for surgery: [] final area measured approximately 10 x 8 cm of necrotic right heel involving skin, subcutaneous tissue but not down to bone. Very little bleeding from debrided margins. Findings: [] Patent brought to the operating room, placed on operative table in supine position, after adequate level of MAC anesthesia was induced, the right foot was prepped and draped in usual sterile fashion. The intended area of debridement was infiltrated with 0.5% Marcaine / 1% lidocaine and sharp debridement with final dimensions as described above of a necrotic eschar and subcutaneous tissue was uneventfully performed. Specimen sent to pathology. A completion the procedure, there was very little bleeding. The wound was irrigated, secured hemostasis, and moist 4x4s followed by Kerlix wrap were placed. Sponge, needle, and instrument counts reported correct. Patient tolerated the procedure well and emerged from anesthesia stable condition. EBL minimal
[2023-03-18] MEDS: Acetaminophen 325 MG TABLET 975 MG PO (14:15)
--- NOTE | 2023-03-18 14:31 | PM.EVENT ---
Event Note Date of Service: 03/18/23 Event Note: Notified by RN patient's dressing was saturated x2 reinforcements. Dressing changed at bedside, some active oozing at posterior aspect of heel debridement site. Pressure held with improvement. Wet to dry fluffs applied followed by thick pressure dressing. Patient tolerated well. Time Spent With Patient Time: Total time managing care of this patient today ____ minutes.
[2023-03-18 16:09] LABS: Glucose, Whole Blood 207 mg/dL (60-115)
[2023-03-18] MEDS: Insulin Lispro 100 UNIT/ML 3 ML VIAL SUBCUT (17:50)
[2023-03-18] MEDS: vancomycin HCL 1,250 MG in 0.9 % Sodium Chloride 250 ML 166.67 MG IV (18:27)
[2023-03-18 20:17] LABS: Glucose, Whole Blood 148 mg/dL (60-115)
[2023-03-18] MEDS: Atorvastatin Calcium 10 MG TABLET PO (20:34)
[2023-03-18] MEDS: Ferrous Sulfate 324 MG TABLET.DR PO (20:34)
[2023-03-18] MEDS: Tamsulosin HCL 0.4 MG CAPSULE PO (20:34)
[2023-03-18] MEDS: Heparin Sodium,Porcine 5,000 UNIT/ML VIAL 5000 UNIT SUBCUT (20:37)
[2023-03-18] MEDS: Insulin Glargine,Hum.rec.anlog 100 UNIT/ML 10 ML VIAL SUBCUT (20:42)
[2023-03-19] VITALS (7 sets, daily range): BP systolic 112–125; BP diastolic 56–68; PULSE 70–81; RESP 18–20; TEMP 36.2–37.2; O2SAT 95–99
[2023-03-19] MEDS: Piperacillin Sodium/Tazobactam 3.375 GM in 0.9 % Sodium Chloride 50 ML IV ×4 (02:58→21:33)
[2023-03-19] MEDS: Omeprazole 20 MG CAPSULE.DR PO (05:51)
[2023-03-19 07:18] LABS: Hemoglobin 7.5 g/dl (14.0-18.0); Mean Corpuscular HGB Conc 31.3 g/dl (31.0-36.0); Mean Corpuscular Hemoglobin 26.1 pg (27.0-33.0); Mean Corpuscular Volume 83.6 fL (80.0-98.0); Mean Platelet Volume 10.5 fL (9.4-12.4); Platelet Count 260 X10*3/uL (160-400); Red Blood Count 2.87 X10*6/uL (4.60-5.80); Red Cell Distribution Width 17.2 % (11.0-16.0); White Blood Count 12.5 X10*3/uL (4.8-10.8)
[2023-03-19 07:31] LABS: Glucose, Whole Blood 120 mg/dL (60-115)
[2023-03-19 07:31] LABS: Anion Gap 13 (12-20); Blood Urea Nitrogen 24 mg/dL (9-16); Calcium 8.6 mg/dL (8.4-10.2); Carbon Dioxide 28 mmol/L (22-29); Chloride 104 mmol/L (96-108); Creatinine Clr Calc Pharmacy 59.3; Estimated Glomerular Filt Rate 48; Glucose Random 114 mg/dL (60-115); Potassium 3.8 mmol/L (3.3-5.1); Sodium 141 mmol/L (135-145)
[2023-03-19] MEDS: Clopidogrel Bisulfate 75 MG TABLET PO (08:44)
[2023-03-19] MEDS: NIFEdipine ER 60 MG TAB.ER.24 PO (08:44)
[2023-03-19] MEDS: Heparin Sodium,Porcine 5,000 UNIT/ML VIAL 5000 UNIT SUBCUT ×2 (08:44→20:18)
[2023-03-19] MEDS: 0.9 % Sodium Chloride Flush 3 ML SYRINGE IVFLUSH ×3 (08:44→21:33)
[2023-03-19] MEDS: methADONE HCl 20 MG/2 ML ORAL.CONC 45 MG PO (08:45)
[2023-03-19] MEDS: Aspirin 81 MG TAB.CHEW PO (08:45)
[2023-03-19] MEDS: Escitalopram Oxalate 10 MG TABLET PO (08:45)
[2023-03-19] MEDS: Ferrous Sulfate 324 MG TABLET.DR PO ×2 (08:45→20:18)
[2023-03-19 11:33] LABS: Glucose, Whole Blood 218 mg/dL (60-115)
--- NOTE | 2023-03-19 11:42 | P.PNIM_ITS ---
Subjective Subjective Date of Service: 03/19/23 Interval History: seen and evaluated this morning no reported pain in the heel no drainage or fever feels better after surgery wound soaked with blood yesterday but looks clean today Review of Systems Review of Systems: Yes all other systems are reviewed and are negative Physical Exam Vital Signs: Vital Signs: Last Vital Signs Temp 97.7 F 03/19/23 11:26 Pulse 70 03/19/23 11:26 Resp 20 03/19/23 11:26 BP 112/57 L 03/19/23 11:26 Pulse Ox 97 03/19/23 11:26 O2 Del Method Room Air 03/19/23 11:26 O2 Flow Rate 2 03/18/23 19:30 BMI result Body Mass Index 32.9 Const: Other: Constitutional : Awake, interactive, not in distress Neck : Normal inspection, Supple Cardiovascular : RRR, no JVP, no lower extremity edema Respiratory : good bilateral air entry, no crackles, wheezes or rhonchi Gastrointestinal: soft, lax, Normal bowel sounds, Non tender Skin : Warm, Dry, Right heel covered with dressing with no erythema or drainage noted. Transmetatarsal Left foot amputation. peripheral pulses can be felt. Neurological : Alert & oriented x3, No focal deficit Objective Data Active Medications Acetaminophen (Acetaminophen 325 Mg Tablet) 975 mg PO Q6H PRN PRN Reason: Fever Last Admin: 03/18/23 14:15 Dose: 975 mg Documented By: NORMA Al Hydroxide/Mg Hydroxide (Magnesium Hydrox/Alum Hydrox 30 Ml Oral.Susp) 15 ml PO Q6H PRN PRN Reason: Dyspepsia Aspirin (Aspirin 81 Mg Tab.Chew) 81 mg PO DAILY [facility] Last Admin: 03/19/23 08:45 Dose: 81 mg Documented By: ABHAY Atorvastatin Calcium (Atorvastatin Calcium 10 Mg Tablet) 10 mg PO BEDTIME [facility] Last Admin: 03/18/23 20:34 Dose: 10 mg Documented By: ISAIAH Bisacodyl (Bisacodyl 10 Mg Supp.Rect) 10 mg [place] DAILY PRN PRN Reason: Constipation Clopidogrel Bisulfate (Clopidogrel Bisulfate 75 Mg Tablet) 75 mg PO DAILY [facility] Last Admin: 03/19/23 08:44 Dose: 75 mg Documented By: ABHAY Escitalopram Oxalate (Escitalopram Oxalate 10 Mg Tablet) 10 mg PO DAILY [facility] Last Admin: 03/19/23 08:45 Dose: 10 mg Documented By: ABHAY Ferrous Sulfate (Ferrous Sulfate 324 Mg Tablet.) 324 mg PO BID [facility] Last Admin: 03/19/23 08:45 Dose: 324 mg Documented By: ABHAY Heparin Sodium (Porcine) (Heparin Sodium,Porcine 5,000 Unit/Ml Vial) 5,000 unit SUBCUT Q12H [facility] Last Admin: 03/19/23 08:44 Dose: 5,000 unit Documented By: ABHAY Hydroxyzine HCl (Hydroxyzine Hcl 10 Mg Tablet) 10 mg PO Q6H PRN PRN Reason: Anxiety Piperacillin Sod/Tazobactam (Sod 3.375 gm/ Sodium Chloride) 50 mls @ 100 mls/hr IV Q6H [facility] Last Infusion: 03/19/23 09:35 Dose: 0 mls/hr Documented By: ABHAY Vancomycin HCl 1,250 mg/ (Sodium Chloride) 250 mls @ 166.667 mls/hr IV Q24H [facility] Last Infusion: 03/18/23 20:30 Dose: 0 mls/hr Documented By: ISAIAH Insulin Glargine (Insulin Glargine,Hum.Rec.Anlog 100 Unit/Ml 10 Ml Vial) 5 unit SUBCUT BEDTIME [facility] Last Admin: 03/18/23 20:42 Dose: 5 unit Documented By: ISAIAH Insulin Human Lispro (Insulin Lispro 100 Unit/Ml 3 Ml Vial) 0 unit SUBCUT QIDACHS [facility]; Protocol Last Admin: 03/19/23 07:34 Dose: Not Given Documented By: ABHAY Non-Admin Reason: No Insulin Coverage Loperamide HCl (Loperamide Hcl 2 Mg Capsule) 2 mg PO Q4H PRN PRN Reason: Loose Stool Methadone HCl (Methadone Hcl 20 Mg/2 Ml Oral.Conc) 45 mg PO DAILY [facility] Last Admin: 03/19/23 08:45 Dose: 45 mg Documented By: ABHAY Morphine Sulfate (Morphine Sulfate 4 Mg/Ml Cartridge) 3 mg IVPUSH Q4H PRN; Protocol PRN Reason: Pain, Severe (Pain Scale 7-10) Naloxone HCl (Naloxone Hcl Nasal 4 Mg [place]) 4 mg NOSTRILALT Q3M PRN PRN Reason: Opioid Overdose Nifedipine (Nifedipine Er 60 Mg Tab.Er.24) 60 mg PO DAILY [facility]; Protocol Last Admin: 03/19/23 08:44 Dose: 60 mg Documented By: ABHAY Omeprazole (Omeprazole 20 Mg Capsule.) 20 mg PO DAILY@0630 [facility] Last Admin: 03/19/23 05:51 Dose: 20 mg Documented By: GAMALIEL Ondansetron HCl (Ondansetron Hcl 4 Mg/2 Ml Vial) 4 mg IVPUSH Q8H PRN PRN Reason: Nausea and Vomiting Ondansetron HCl (Ondansetron Odt 4 Mg Tab.Rapdis) 4 mg TRANSLINGU Q8H PRN PRN Reason: Nausea Oxycodone HCl (Oxycodone Hcl Immed Release 5 Mg Tablet) 5 mg PO Q4H PRN PRN Reason: Pain, Moderate(Pain Scale 4-6) Pharmacy Consult (Consult Rx Vancomycin Dosing) 1 each MISCELLANE DAILY PRN PRN Reason: Consult order Polyethylene Glycol (Polyethylene Glycol 3350 17 Gm Powd.Pack) 17 gm PO DAILY PRN PRN Reason: constipation Sodium Biphosphate/Sodium Phosphate (Sodium Phosphate,[place]-Dibasic 133 Ml Enema) 118 ml [place] DAILY PRN PRN Reason: Constipation Sodium Chloride (0.9 % Sodium Chloride Flush 3 Ml Syringe) 3 ml IVFLUSH QSHIFT [facility] Last Admin: 03/19/23 08:44 Dose: 3 ml Documented By: ABHAY Tamsulosin HCl (Tamsulosin Hcl 0.4 Mg Capsule) 0.4 mg PO BEDTIME [facility] Last Admin: 03/18/23 20:34 Dose: 0.4 mg Documented By: ISAIAH Labs 03/19/23 06:52 03/19/23 06:52 Labs: Laboratory Results - last 24 hr 03/18/23 03/18/23 03/18/23 12:20 16:05 20:02 MCV MCH MCHC RDW Plt Count MPV Absolute Nucleated RBC Nucleated RBC % (auto) Anion Gap Estim Creat Clear Calc Estimated GFR POC Glucose 185 H 207 H 148 H Random Glucose Calcium 03/19/23 03/19/23 03/19/23 06:52 06:52 07:28 MCV 83.6 MCH 26.1 L MCHC 31.3 RDW 17.2 H Plt Count 260 MPV 10.5 Absolute Nucleated RBC 0.000 Nucleated RBC % (auto) 0.0 Anion Gap 13 Estim Creat Clear Calc 59.3 Estimated GFR 48 POC Glucose 120 H Random Glucose 114 Calcium 8.6 03/19/23 11:29 MCV MCH MCHC RDW Plt Count MPV Absolute Nucleated RBC Nucleated RBC % (auto) Anion Gap Estim Creat Clear Calc Estimated GFR POC Glucose 218 H Random Glucose Calcium Microbiology Microbiology Results: Microbiology 03/18/23 09:28 Blood Culture - Preliminary Blood - Venous No growth after 24 hours. 03/17/23 Unknown Urine Culture - Final Urine clean catch - Urine acosta top Escherichia coli 03/18/23 06:22 Blood Culture - Preliminary Blood - Venous No growth after 24 hours. 03/16/23 14:42 Blood Culture - Final Blood - Venous Proteus mirabilis Coag negative Staphylococcus 03/16/23 14:26 Blood Culture - Final Blood - Venous Proteus mirabilis Assessment and Plan (1) Acute on chronic anemia: Status: Acute (2) Diabetic foot infection: Status: Acute (3) Necrosis: Status: Acute (4) Sepsis: Status: Acute (5) UTI (urinary tract infection): Status: Acute Plan A 57 years old male with PMH of DMII, PAD post lt transmetatarsal, CKD III, hx DU on Methadone, Presenting with feeling weak and chilly with reported Rt heel blackish wound. Sepsis 2/2 heel wound infection w necrosis likely 2/2 diabetic foot ulcer XR showing no evidence of osteomyelitis but has high ESR of 119 raising suspecion of underlying bone infection negative blood cultures CT of foot concerning for possible OM Broad IV antibiotics ID input appreciated, eval for OM and need of IV Abx Surgery did surgical debridement will likely need follow up with wound clinic as outpatient follow Vancomycin trough Urine infection Cx growing E.Coli Treated w Abx (03/16/23) Acute on chronic anemia VICTORIA, possible chronic blood loss related give 1 unit of blood stable at 7.5 check occult PO Iron supplement Type II DM Diabetic diet POC, SSI Lantus Hx Opioid abuse Continue Methadone HTN Nifedipine BPH Tamsulosin PAD ASA, Plavix DVT PPx Lovenox The patient will need overnight hospital stay for sepsis pending cultures and need of surgical intervention Time Spent With Patient Time: Total time managing care of this patient today ____ minutes. Quality Stroke Does the patient have a stroke diagnosis?: No VTE Prior VTE?: No VTE Risk Level:: Medical - moderate - high VTE Device Contraindication: Treatment Not Indicated VTE Drug Contraindication: N/A - Med Ordered
[2023-03-19] MEDS: Insulin Lispro 100 UNIT/ML 3 ML VIAL SUBCUT ×3 (11:52→20:28)
[2023-03-19 13:02] LABS: Vancomycin Trough 19.2 mcg/mL (10.0-20.0)
--- NOTE | 2023-03-19 13:11 | HE.PHANOTE ---
RE: vanco Trough on 03/19 came back at 19.2mg/L. Decreased dose to 1000mg Q24H with predicted AUC 431 mg/L, trough of 13.2 mg/L. Next level to be drawn after two doses 03/21 @1300
[2023-03-19] MEDS: vancomycin HCL 1,000 MG in 0.9 % Sodium Chloride 250 ML 270 MG IV (15:32)
[2023-03-19 16:18] LABS: Glucose, Whole Blood 247 mg/dL (60-115)
--- NOTE | 2023-03-19 17:20 | HO.POSTANES ---
Post Anesthesia Evaluation Post Anesthesia Evaluation Date of Service: 03/19/23 Vital Signs: Vital Signs Temp Pulse Resp BP Pulse Ox O2 Del Method 03/19/23 14:58 98.0 F 71 20 123/60 99 Room Air 03/19/23 11:26 97.7 F 70 20 112/57 L 97 Room Air 03/19/23 07:34 97.6 F 72 20 122/58 L 97 Room Air Anesthesia: General LMA Mental Status: Awake Pain Control: Satisfactory Nausea/Vomiting: None Hydration: Adequate Anesthesia-Related Issues: No Anes. Related Issues
[2023-03-19 19:59] LABS: Glucose, Whole Blood 401 mg/dL (60-115)
[2023-03-19] MEDS: Atorvastatin Calcium 10 MG TABLET PO (20:18)
[2023-03-19] MEDS: Tamsulosin HCL 0.4 MG CAPSULE PO (20:18)
[2023-03-19] MEDS: Insulin Lispro 100 UNIT/ML 3 ML VIAL 10 UNIT SUBCUT (20:28)
[2023-03-19] MEDS: Insulin Glargine,Hum.rec.anlog 100 UNIT/ML 10 ML VIAL SUBCUT (20:29)
[2023-03-20] MEDS: Piperacillin Sodium/Tazobactam 3.375 GM in 0.9 % Sodium Chloride 50 ML IV ×4 (02:48→22:21)
[2023-03-20 03:16] VITALS: BP 117/56; PULSE 75; RESP 20; TEMP 36.3; O2SAT 97
[2023-03-20] MEDS: Omeprazole 20 MG CAPSULE.DR PO (05:10)
[2023-03-20 07:29] VITALS: BP 114/59; PULSE 73; RESP 20; TEMP 36.5; O2SAT 97
[2023-03-20 07:43] LABS: Creatinine Clr Calc Pharmacy 58.2; Estimated Glomerular Filt Rate 47
[2023-03-20 07:44] LABS: Glucose, Whole Blood 299 mg/dL (60-115)
[2023-03-20] MEDS: Insulin Lispro 100 UNIT/ML 3 ML VIAL SUBCUT ×4 (07:50→22:29)
[2023-03-20] MEDS: methADONE HCl 20 MG/2 ML ORAL.CONC 45 MG PO (07:51)
[2023-03-20] MEDS: Ferrous Sulfate 324 MG TABLET.DR PO ×2 (07:52→22:21)
[2023-03-20] MEDS: Aspirin 81 MG TAB.CHEW PO (07:52)
[2023-03-20] MEDS: Escitalopram Oxalate 10 MG TABLET PO (07:52)
[2023-03-20] MEDS: NIFEdipine ER 60 MG TAB.ER.24 PO (07:52)
[2023-03-20] MEDS: Heparin Sodium,Porcine 5,000 UNIT/ML VIAL 5000 UNIT SUBCUT ×2 (07:52→22:20)
[2023-03-20] MEDS: Clopidogrel Bisulfate 75 MG TABLET PO (07:52)
[2023-03-20] MEDS: 0.9 % Sodium Chloride Flush 3 ML SYRINGE IVFLUSH ×3 (07:53→22:37)
--- NOTE | 2023-03-20 11:10 | HO.PM.IMPN ---
Subjective Subjective Date of Service: 03/20/23 Interval History: seen and evaluated this morning Feels much better no reported pain in the heel cultures negative wound looks clean today Review of Systems Review of Systems: Yes all other systems are reviewed and are negative Physical Exam Vital Signs: Vital Signs: Last Vital Signs Temp 97.7 F 03/20/23 07:29 Pulse 73 03/20/23 07:29 Resp 20 03/20/23 07:29 BP 114/59 L 03/20/23 07:29 Pulse Ox 97 03/20/23 07:29 O2 Del Method Room Air 03/20/23 07:29 O2 Flow Rate 2 03/18/23 19:30 BMI result Body Mass Index 32.9 Const: Other: Constitutional : Awake, interactive, not in distress Neck : Normal inspection, Supple Cardiovascular : RRR, no JVP, no lower extremity edema Respiratory : good bilateral air entry, no crackles, wheezes or rhonchi Gastrointestinal: soft, lax, Normal bowel sounds, Non tender Skin : Warm, Dry, Right heel covered with dressing with no erythema or drainage noted. Transmetatarsal Left foot amputation. peripheral pulses can be felt. Neurological : Alert & oriented x3, No focal deficit Objective Data Active Medications Acetaminophen (Acetaminophen 325 Mg Tablet) 975 mg PO Q6H PRN PRN Reason: Fever Last Admin: 03/18/23 14:15 Dose: 975 mg Documented By: NORMA Al Hydroxide/Mg Hydroxide (Magnesium Hydrox/Alum Hydrox 30 Ml Oral.Susp) 15 ml PO Q6H PRN PRN Reason: Dyspepsia Aspirin (Aspirin 81 Mg Tab.Chew) 81 mg PO DAILY [facility] Last Admin: 03/20/23 07:52 Dose: 81 mg Documented By: CHADD Atorvastatin Calcium (Atorvastatin Calcium 10 Mg Tablet) 10 mg PO BEDTIME [facility] Last Admin: 03/19/23 20:18 Dose: 10 mg Documented By: ISAIAH Bisacodyl (Bisacodyl 10 Mg Supp.Rect) 10 mg [place] DAILY PRN PRN Reason: Constipation Clopidogrel Bisulfate (Clopidogrel Bisulfate 75 Mg Tablet) 75 mg PO DAILY [facility] Last Admin: 03/20/23 07:52 Dose: 75 mg Documented By: CHADD Escitalopram Oxalate (Escitalopram Oxalate 10 Mg Tablet) 10 mg PO DAILY [facility] Last Admin: 03/20/23 07:52 Dose: 10 mg Documented By: CHADD Ferrous Sulfate (Ferrous Sulfate 324 Mg Tablet.) 324 mg PO BID [facility] Last Admin: 03/20/23 07:52 Dose: 324 mg Documented By: CHADD Heparin Sodium (Porcine) (Heparin Sodium,Porcine 5,000 Unit/Ml Vial) 5,000 unit SUBCUT Q12H [facility] Last Admin: 03/20/23 07:52 Dose: 5,000 unit Documented By: CHADD Hydroxyzine HCl (Hydroxyzine Hcl 10 Mg Tablet) 10 mg PO Q6H PRN PRN Reason: Anxiety Piperacillin Sod/Tazobactam (Sod 3.375 gm/ Sodium Chloride) 50 mls @ 100 mls/hr IV Q6H [facility] Last Infusion: 03/20/23 08:32 Dose: 0 mls/hr Documented By: CHADD Vancomycin HCl 1,000 mg/ (Sodium Chloride) 270 mls @ 270 mls/hr IV Q24H [facility] Last Infusion: 03/19/23 17:19 Dose: 0 mls/hr Documented By: ABHAY Insulin Glargine (Insulin Glargine,Hum.Rec.Anlog 100 Unit/Ml 10 Ml Vial) 5 unit SUBCUT BEDTIME [facility] Last Admin: 03/19/23 20:29 Dose: 5 unit Documented By: ISAIAH Insulin Human Lispro (Insulin Lispro 100 Unit/Ml 3 Ml Vial) 0 unit SUBCUT QIDACHS [facility]; Protocol Last Admin: 03/20/23 07:50 Dose: 6 unit Documented By: CHADD Loperamide HCl (Loperamide Hcl 2 Mg Capsule) 2 mg PO Q4H PRN PRN Reason: Loose Stool Methadone HCl (Methadone Hcl 20 Mg/2 Ml Oral.Conc) 45 mg PO DAILY [facility] Last Admin: 03/20/23 07:51 Dose: 45 mg Documented By: CHADD Morphine Sulfate (Morphine Sulfate 4 Mg/Ml Cartridge) 3 mg IVPUSH Q4H PRN; Protocol PRN Reason: Pain, Severe (Pain Scale 7-10) Naloxone HCl (Naloxone Hcl Nasal 4 Mg [place]) 4 mg NOSTRILALT Q3M PRN PRN Reason: Opioid Overdose Nifedipine (Nifedipine Er 60 Mg Tab.Er.24) 60 mg PO DAILY [facility]; Protocol Last Admin: 03/20/23 07:52 Dose: 60 mg Documented By: CHADD Omeprazole (Omeprazole 20 Mg Capsule.) 20 mg PO DAILY@0630 [facility] Last Admin: 03/20/23 05:10 Dose: 20 mg Documented By: GAMALIEL Ondansetron HCl (Ondansetron Hcl 4 Mg/2 Ml Vial) 4 mg IVPUSH Q8H PRN PRN Reason: Nausea and Vomiting Ondansetron HCl (Ondansetron Odt 4 Mg Tab.Rapdis) 4 mg TRANSLINGU Q8H PRN PRN Reason: Nausea Oxycodone HCl (Oxycodone Hcl Immed Release 5 Mg Tablet) 5 mg PO Q4H PRN PRN Reason: Pain, Moderate(Pain Scale 4-6) Pharmacy Consult (Consult Rx Vancomycin Dosing) 1 each MISCELLANE DAILY PRN PRN Reason: Consult order Polyethylene Glycol (Polyethylene Glycol 3350 17 Gm Powd.Pack) 17 gm PO DAILY PRN PRN Reason: constipation Sodium Biphosphate/Sodium Phosphate (Sodium Phosphate,[place]-Dibasic 133 Ml Enema) 118 ml [place] DAILY PRN PRN Reason: Constipation Sodium Chloride (0.9 % Sodium Chloride Flush 3 Ml Syringe) 3 ml IVFLUSH QSHIFT [facility] Last Admin: 03/20/23 07:53 Dose: 3 ml Documented By: CHADD Tamsulosin HCl (Tamsulosin Hcl 0.4 Mg Capsule) 0.4 mg PO BEDTIME [facility] Last Admin: 03/19/23 20:18 Dose: 0.4 mg Documented By: ISAIAH Labs 03/19/23 06:52 03/20/23 06:54 Labs: Laboratory Results - last 24 hr 03/19/23 03/19/23 03/19/23 11:29 12:35 16:14 Estim Creat Clear Calc Estimated GFR POC Glucose 218 H 247 H Vancomycin Trough 19.2 03/19/23 03/20/23 03/20/23 19:51 06:54 07:32 Estim Creat Clear Calc 58.2 Estimated GFR 47 POC Glucose 401 H* 299 H Vancomycin Trough Microbiology Microbiology Results: Microbiology 03/18/23 06:22 Blood Culture - Preliminary Blood - Venous No growth after 48 hours. 03/18/23 09:28 Blood Culture - Preliminary Blood - Venous No growth after 24 hours. 03/17/23 Unknown Urine Culture - Final Urine clean catch - Urine acosta top Escherichia coli 03/16/23 14:42 Blood Culture - Final Blood - Venous Proteus mirabilis Coag negative Staphylococcus 03/16/23 14:26 Blood Culture - Final Blood - Venous Proteus mirabilis Assessment and Plan (1) UTI (urinary tract infection): Status: Acute (2) Acute on chronic anemia: Status: Acute (3) Diabetic foot infection: Status: Acute (4) Sepsis: Status: Acute (5) Osteomyelitis: Status: Acute Plan A 57 years old male with PMH of DMII, PAD post lt transmetatarsal, CKD III, hx DU on Methadone, Presenting with feeling weak and chilly with reported Rt heel blackish wound. Sepsis 2/2 heel wound infection w osteomyelitis and necrosis likely 2/2 diabetic foot ulcer XR showing no evidence of osteomyelitis but has high ESR of 119 raising suspecion of underlying bone infection negative blood cultures CT of foot concerning for possible OM Surgery did surgical debridement ID input appreciated, eval for OM and need of IV Abx Broad IV antibiotics will likely need follow up with wound clinic as outpatient follow Vancomycin trough PICC line tomorrow PT eval Urine infection Cx growing E.Coli Treated w Abx (03/16/23) Acute on chronic anemia VICTORIA, possible chronic blood loss related give 1 unit of blood stable at 7.5 check occult PO Iron supplement Type II DM Diabetic diet POC, SSI Lantus Hx Opioid abuse Continue Methadone HTN Nifedipine BPH Tamsulosin PAD ASA, Plavix DVT PPx Lovenox The patient will need overnight hospital stay for sepsis pending cultures and need of surgical intervention Time Spent With Patient Time: Total time managing care of this patient today ____ minutes. Quality Stroke Does the patient have a stroke diagnosis?: No VTE Prior VTE?: No VTE Risk Level:: Medical - moderate - high VTE Device Contraindication: Treatment Not Indicated VTE Drug Contraindication: N/A - Med Ordered
[2023-03-20 11:15] VITALS: BP 126/69; PULSE 71; RESP 20; TEMP 36.4; O2SAT 98
[2023-03-20 11:19] LABS: Glucose, Whole Blood 348 mg/dL (60-115)
[2023-03-20 14:45] VITALS: BP 131/60; PULSE 77; RESP 20; TEMP 36.4; O2SAT 99
[2023-03-20] MEDS: vancomycin HCL 1,000 MG in 0.9 % Sodium Chloride 250 ML 270 MG IV (15:56)
[2023-03-20 16:11] LABS: Glucose, Whole Blood 258 mg/dL (60-115)
[2023-03-20 19:47] VITALS: BP 126/60; PULSE 78; RESP 18; TEMP 36.1; O2SAT 97
[2023-03-20 20:21] LABS: Glucose, Whole Blood 266 mg/dL (60-115)
[2023-03-20] MEDS: Tamsulosin HCL 0.4 MG CAPSULE PO (22:21)
[2023-03-20] MEDS: Atorvastatin Calcium 10 MG TABLET PO (22:21)
[2023-03-20] MEDS: Insulin Glargine,Hum.rec.anlog 100 UNIT/ML 10 ML VIAL SUBCUT (22:23)
[2023-03-20 22:43] LABS: Glucose, Whole Blood 267 mg/dL (60-115)
[2023-03-21] VITALS (8 sets, daily range): BP systolic 111–149; BP diastolic 61–80; PULSE 65–79; RESP 16–20; TEMP 36.3–37.4; O2SAT 93–100
[2023-03-21] MEDS: Piperacillin Sodium/Tazobactam 3.375 GM in 0.9 % Sodium Chloride 50 ML IV ×2 (06:04→09:50)
[2023-03-21] MEDS: Omeprazole 20 MG CAPSULE.DR PO (06:06)
[2023-03-21 07:27] LABS: Hematocrit 24.5 % (42.0-52.0); Hemoglobin 7.6 g/dl (14.0-18.0); Mean Corpuscular Hemoglobin 25.9 pg (27.0-33.0); Mean Corpuscular Volume 83.6 fL (80.0-98.0); Mean Platelet Volume 10.5 fL (9.4-12.4); Platelet Count 280 X10*3/uL (160-400); Red Blood Count 2.93 X10*6/uL (4.60-5.80); Red Cell Distribution Width 17.3 % (11.0-16.0); White Blood Count 9.4 X10*3/uL (4.8-10.8)
[2023-03-21 07:29] LABS: INTERNATIONAL NORM RATIO 1.1 (0.9-1.1)
[2023-03-21 08:26] LABS: Creatinine Clr Calc Pharmacy 62.2; Estimated Glomerular Filt Rate 51
[2023-03-21 09:22] LABS: Glucose, Whole Blood 201 mg/dL (60-115)
[2023-03-21] MEDS: Ferrous Sulfate 324 MG TABLET.DR PO ×2 (09:48→20:24)
[2023-03-21] MEDS: NIFEdipine ER 60 MG TAB.ER.24 PO (09:48)
[2023-03-21] MEDS: methADONE HCl 20 MG/2 ML ORAL.CONC 45 MG PO (09:48)
[2023-03-21] MEDS: Escitalopram Oxalate 10 MG TABLET PO (09:48)
[2023-03-21] MEDS: Heparin Sodium,Porcine 5,000 UNIT/ML VIAL 5000 UNIT SUBCUT ×2 (09:48→20:25)
[2023-03-21] MEDS: Aspirin 81 MG TAB.CHEW PO (09:48)
[2023-03-21] MEDS: Clopidogrel Bisulfate 75 MG TABLET PO (09:48)
[2023-03-21] MEDS: 0.9 % Sodium Chloride Flush 3 ML SYRINGE IVFLUSH ×3 (09:49→20:25)
[2023-03-21] MEDS: Insulin Lispro 100 UNIT/ML 3 ML VIAL SUBCUT ×4 (09:49→21:55)
[2023-03-21 11:11] LABS: Glucose, Whole Blood 236 mg/dL (60-115)
[2023-03-21 11:49] LABS: Anion Gap 10 (12-20)
[2023-03-21 11:51] LABS: Blood Urea Nitrogen 17 mg/dL (9-16); Calcium 8.4 mg/dL (8.4-10.2); Carbon Dioxide 30 mmol/L (22-29); Chloride 104 mmol/L (96-108); Glucose Random 270 mg/dL (60-115); Potassium 4.1 mmol/L (3.3-5.1); Sodium 140 mmol/L (135-145)
--- NOTE | 2023-03-21 13:31 | HO.PM.IMPN ---
Subjective Subjective Date of Service: 03/21/23 Interval History: seen and evaluated this morning little down and not interested in talking, report missing his family no reported pain in the heel cultures negative wound looks clean Review of Systems Review of Systems: Yes all other systems are reviewed and are negative Physical Exam Vital Signs: Vital Signs: Last Vital Signs Temp 97.4 F 03/21/23 11:22 Pulse 79 03/21/23 11:22 Resp 20 03/21/23 11:22 BP 149/80 H 03/21/23 11:22 Pulse Ox 98 03/21/23 11:22 O2 Del Method Room Air 03/21/23 11:22 O2 Flow Rate 2 03/18/23 19:30 BMI result Body Mass Index 32.9 Const: Other: Constitutional : Awake, interactive, not in distress Neck : Normal inspection, Supple Cardiovascular : RRR, no JVP, no lower extremity edema Respiratory : good bilateral air entry, no crackles, wheezes or rhonchi Gastrointestinal: soft, lax, Normal bowel sounds, Non tender Skin : Warm, Dry, Right heel covered with dressing with no erythema or drainage noted. Transmetatarsal Left foot amputation. peripheral pulses can be felt. Neurological : Alert & oriented x3, No focal deficit Objective Data Active Medications Acetaminophen (Acetaminophen 325 Mg Tablet) 975 mg PO Q6H PRN PRN Reason: Fever Last Admin: 03/18/23 14:15 Dose: 975 mg Documented By: NORMA Al Hydroxide/Mg Hydroxide (Magnesium Hydrox/Alum Hydrox 30 Ml Oral.Susp) 15 ml PO Q6H PRN PRN Reason: Dyspepsia Aspirin (Aspirin 81 Mg Tab.Chew) 81 mg PO DAILY [facility] Last Admin: 03/21/23 09:48 Dose: 81 mg Documented By: ANDRADE Atorvastatin Calcium (Atorvastatin Calcium 10 Mg Tablet) 10 mg PO BEDTIME [facility] Last Admin: 03/20/23 22:21 Dose: 10 mg Documented By: SMITH Bisacodyl (Bisacodyl 10 Mg Supp.Rect) 10 mg [place] DAILY PRN PRN Reason: Constipation Clopidogrel Bisulfate (Clopidogrel Bisulfate 75 Mg Tablet) 75 mg PO DAILY [facility] Last Admin: 03/21/23 09:48 Dose: 75 mg Documented By: ANDRADE Escitalopram Oxalate (Escitalopram Oxalate 10 Mg Tablet) 10 mg PO DAILY [facility] Last Admin: 03/21/23 09:48 Dose: 10 mg Documented By: ANDRADE Ferrous Sulfate (Ferrous Sulfate 324 Mg Tablet.) 324 mg PO BID [facility] Last Admin: 03/21/23 09:48 Dose: 324 mg Documented By: ANDRADE Heparin Sodium (Porcine) (Heparin Sodium,Porcine 5,000 Unit/Ml Vial) 5,000 unit SUBCUT Q12H [facility] Last Admin: 03/21/23 09:48 Dose: 5,000 unit Documented By: ANDRADE Hydroxyzine HCl (Hydroxyzine Hcl 10 Mg Tablet) 10 mg PO Q6H PRN PRN Reason: Anxiety Piperacillin Sod/Tazobactam (Sod 3.375 gm/ Sodium Chloride) 50 mls @ 100 mls/hr IV Q6H [facility] Last Infusion: 03/21/23 10:39 Dose: 0 mls/hr Documented By: ANDRADE Vancomycin HCl 1,000 mg/ (Sodium Chloride) 270 mls @ 270 mls/hr IV Q24H [facility] Last Infusion: 03/20/23 17:26 Dose: 0 mls/hr Documented By: CHADD Insulin Glargine (Insulin Glargine,Hum.Rec.Anlog 100 Unit/Ml 10 Ml Vial) 5 unit SUBCUT BEDTIME [facility] Last Admin: 03/20/23 22:23 Dose: 5 unit Documented By: SMITH Insulin Human Lispro (Insulin Lispro 100 Unit/Ml 3 Ml Vial) 0 unit SUBCUT QIDACHS [facility]; Protocol Last Admin: 03/21/23 11:40 Dose: 4 unit Documented By: KUSHAL Loperamide HCl (Loperamide Hcl 2 Mg Capsule) 2 mg PO Q4H PRN PRN Reason: Loose Stool Methadone HCl (Methadone Hcl 20 Mg/2 Ml Oral.Conc) 45 mg PO DAILY [facility] Last Admin: 03/21/23 09:48 Dose: 45 mg Documented By: ANDRADE Morphine Sulfate (Morphine Sulfate 4 Mg/Ml Cartridge) 3 mg IVPUSH Q4H PRN; Protocol PRN Reason: Pain, Severe (Pain Scale 7-10) Naloxone HCl (Naloxone Hcl Nasal 4 Mg [place]) 4 mg NOSTRILALT Q3M PRN PRN Reason: Opioid Overdose Nifedipine (Nifedipine Er 60 Mg Tab.Er.24) 60 mg PO DAILY [facility]; Protocol Last Admin: 03/21/23 09:48 Dose: 60 mg Documented By: ANDRADE Omeprazole (Omeprazole 20 Mg Capsule.) 20 mg PO DAILY@0630 [facility] Last Admin: 03/21/23 06:06 Dose: 20 mg Documented By: SMITH Ondansetron HCl (Ondansetron Hcl 4 Mg/2 Ml Vial) 4 mg IVPUSH Q8H PRN PRN Reason: Nausea and Vomiting Ondansetron HCl (Ondansetron Odt 4 Mg Tab.Rapdis) 4 mg TRANSLINGU Q8H PRN PRN Reason: Nausea Oxycodone HCl (Oxycodone Hcl Immed Release 5 Mg Tablet) 5 mg PO Q4H PRN PRN Reason: Pain, Moderate(Pain Scale 4-6) Pharmacy Consult (Consult Rx Vancomycin Dosing) 1 each MISCELLANE DAILY PRN PRN Reason: Consult order Polyethylene Glycol (Polyethylene Glycol 3350 17 Gm Powd.Pack) 17 gm PO DAILY PRN PRN Reason: constipation Sodium Biphosphate/Sodium Phosphate (Sodium Phosphate,[place]-Dibasic 133 Ml [place]) 118 ml [place] DAILY PRN PRN Reason: Constipation Sodium Chloride (0.9 % Sodium Chloride Flush 3 Ml Syringe) 3 ml IVFLUSH QSHIFT [facility] Last Admin: 03/21/23 09:49 Dose: 3 ml Documented By: ANDRADE Tamsulosin HCl (Tamsulosin Hcl 0.4 Mg Capsule) 0.4 mg PO BEDTIME [facility] Last Admin: 03/20/23 22:21 Dose: 0.4 mg Documented By: SMITH Labs 03/21/23 06:53 03/21/23 06:54 Labs: Laboratory Results - last 24 hr 03/20/23 03/20/23 03/20/23 16:05 20:13 22:28 MCV MCH MCHC RDW Plt Count MPV Absolute Nucleated RBC Nucleated RBC % (auto) PT INR Anion Gap Estim Creat Clear Calc Estimated GFR POC Glucose 258 H 266 H 267 H Random Glucose Calcium 03/21/23 03/21/23 03/21/23 06:53 06:53 06:54 MCV 83.6 MCH 25.9 L MCHC 31.0 RDW 17.3 H Plt Count 280 MPV 10.5 Absolute Nucleated RBC 0.000 Nucleated RBC % (auto) 0.0 PT 13.0 INR 1.1 Anion Gap 10 L Estim Creat Clear Calc 62.2 Estimated GFR 51 POC Glucose Random Glucose 270 H Calcium 8.4 03/21/23 03/21/23 09:18 11:08 MCV MCH MCHC RDW Plt Count MPV Absolute Nucleated RBC Nucleated RBC % (auto) PT INR Anion Gap Estim Creat Clear Calc Estimated GFR POC Glucose 201 H 236 H Random Glucose Calcium Microbiology Microbiology Results: Microbiology 03/18/23 09:28 Blood Culture - Preliminary Blood - Venous No growth after 48 hours. Assessment and Plan (1) UTI (urinary tract infection): Status: Acute (2) Acute on chronic anemia: Status: Acute (3) Sepsis: Status: Acute Plan A 57 years old male with PMH of DMII, PAD post lt transmetatarsal, CKD III, hx DU on Methadone, Presenting with feeling weak and chilly with reported Rt heel blackish wound. Sepsis 2/2 heel wound infection w osteomyelitis and necrosis likely 2/2 diabetic foot ulcer XR showing no evidence of osteomyelitis but has high ESR of 119 raising suspecion of underlying bone infection negative blood cultures CT of foot concerning for possible OM Surgery did surgical debridement, will need follow up with wound clinic as outpatient ID input appreciated, 6 weeks of Vancomycin follow Vancomycin trough PICC line to be placed today pending PT eval Urine infection Cx growing E.Coli Finished 5 days of Abx. Acute on chronic anemia VICTORIA, possible chronic blood loss related give 1 unit of blood , stable at 7.5 PO Iron supplement Type II DM Diabetic diet POC, SSI Lantus Hx Opioid abuse Continue Methadone HTN Nifedipine BPH Tamsulosin PAD ASA, Plavix DVT PPx Heparin The patient will need overnight hospital stay for sepsis pending cultures and need of surgical intervention Time Spent With Patient Time: Total time managing care of this patient today ____ minutes. Quality Stroke Does the patient have a stroke diagnosis?: No VTE Prior VTE?: No VTE Risk Level:: Medical - moderate - high VTE Device Contraindication: Treatment Not Indicated VTE Drug Contraindication: N/A - Med Ordered
[2023-03-21 13:35] LABS: Vancomycin Trough 17.4 mcg/mL (10.0-20.0)
--- NOTE | 2023-03-21 13:42 | HE.PHANOTE ---
Renal function poor but slightly improved with scr 1.44. Dose of 1000 mg q24 giving trough of 17.4. Will continue current regimen and recheck scr and trough tomorrow@1300 to ensure safety.
--- NOTE | 2023-03-21 13:45 | PM.PNGS ---
Subjective Subjective Date of Service: 03/21/23 Interval history: No complaints this morning. Denies pain at debridement site. Awaiting PICC line. Physical Exam Vital Signs: Vital Signs: Last Vital Signs Temp 97.4 F 03/21/23 11:22 Pulse 79 03/21/23 11:22 Resp 20 03/21/23 11:22 BP 149/80 H 03/21/23 11:22 Pulse Ox 98 03/21/23 11:22 O2 Del Method Room Air 03/21/23 11:22 O2 Flow Rate 2 03/18/23 19:30 BMI result Body Mass Index 32.9 Const: General: comfortable, no acute distress and alert Orientation/consciousness: patient oriented x3 Resp: Effort & Inspection: normal respiratory effort Skin: Other: warm and dry Neuro: General: patient oriented x3 and moves all extremities Extrem: Other: right heel- some superficial eschar but all of exposed subq tissue viable appearing Objective Data Active Medications Acetaminophen (Acetaminophen 325 Mg Tablet) 975 mg PO Q6H PRN PRN Reason: Fever Last Admin: 03/18/23 14:15 Dose: 975 mg Documented By: NORMA Al Hydroxide/Mg Hydroxide (Magnesium Hydrox/Alum Hydrox 30 Ml Oral.Susp) 15 ml PO Q6H PRN PRN Reason: Dyspepsia Aspirin (Aspirin 81 Mg Tab.Chew) 81 mg PO DAILY [facility] Last Admin: 03/21/23 09:48 Dose: 81 mg Documented By: ANDRADE Atorvastatin Calcium (Atorvastatin Calcium 10 Mg Tablet) 10 mg PO BEDTIME [facility] Last Admin: 03/20/23 22:21 Dose: 10 mg Documented By: SMITH Bisacodyl (Bisacodyl 10 Mg Supp.Rect) 10 mg IA DAILY PRN PRN Reason: Constipation Clopidogrel Bisulfate (Clopidogrel Bisulfate 75 Mg Tablet) 75 mg PO DAILY [facility] Last Admin: 03/21/23 09:48 Dose: 75 mg Documented By: ANDRADE Escitalopram Oxalate (Escitalopram Oxalate 10 Mg Tablet) 10 mg PO DAILY [facility] Last Admin: 03/21/23 09:48 Dose: 10 mg Documented By: ANDRADE Ferrous Sulfate (Ferrous Sulfate 324 Mg Tablet.Dr) 324 mg PO BID [facility] Last Admin: 03/21/23 09:48 Dose: 324 mg Documented By: ANDRADE Heparin Sodium (Porcine) (Heparin Sodium,Porcine 5,000 Unit/Ml Vial) 5,000 unit SUBCUT Q12H [facility] Last Admin: 03/21/23 09:48 Dose: 5,000 unit Documented By: ANDRADE Hydroxyzine HCl (Hydroxyzine Hcl 10 Mg Tablet) 10 mg PO Q6H PRN PRN Reason: Anxiety Vancomycin HCl 1,000 mg/ (Sodium Chloride) 270 mls @ 270 mls/hr IV Q24H [facility] Last Infusion: 03/20/23 17:26 Dose: 0 mls/hr Documented By: CHADD Insulin Glargine (Insulin Glargine,Hum.Rec.Anlog 100 Unit/Ml 10 Ml Vial) 5 unit SUBCUT BEDTIME [facility] Last Admin: 03/20/23 22:23 Dose: 5 unit Documented By: SMITH Insulin Human Lispro (Insulin Lispro 100 Unit/Ml 3 Ml Vial) 0 unit SUBCUT QIDACHS [facility]; Protocol Last Admin: 03/21/23 11:40 Dose: 4 unit Documented By: KUSHAL Loperamide HCl (Loperamide Hcl 2 Mg Capsule) 2 mg PO Q4H PRN PRN Reason: Loose Stool Methadone HCl (Methadone Hcl 20 Mg/2 Ml Oral.Conc) 45 mg PO DAILY [facility] Last Admin: 03/21/23 09:48 Dose: 45 mg Documented By: ANDRADE Morphine Sulfate (Morphine Sulfate 4 Mg/Ml Cartridge) 3 mg IVPUSH Q4H PRN; Protocol PRN Reason: Pain, Severe (Pain Scale 7-10) Naloxone HCl (Naloxone Hcl Nasal 4 Mg [place]) 4 mg NOSTRILALT Q3M PRN PRN Reason: Opioid Overdose Nifedipine (Nifedipine Er 60 Mg Tab.Er.24) 60 mg PO DAILY [facility]; Protocol Last Admin: 03/21/23 09:48 Dose: 60 mg Documented By: ANDRADE Omeprazole (Omeprazole 20 Mg Capsule.Dr) 20 mg PO DAILY@0630 [facility] Last Admin: 03/21/23 06:06 Dose: 20 mg Documented By: SMITH Ondansetron HCl (Ondansetron Hcl 4 Mg/2 Ml Vial) 4 mg IVPUSH Q8H PRN PRN Reason: Nausea and Vomiting Ondansetron HCl (Ondansetron Odt 4 Mg Tab.Rapdis) 4 mg TRANSLINGU Q8H PRN PRN Reason: Nausea Oxycodone HCl (Oxycodone Hcl Immed Release 5 Mg Tablet) 5 mg PO Q4H PRN PRN Reason: Pain, Moderate(Pain Scale 4-6) Pharmacy Consult (Consult Rx Vancomycin Dosing) 1 each MISCELLANE DAILY PRN PRN Reason: Consult order Polyethylene Glycol (Polyethylene Glycol 3350 17 Gm Powd.Pack) 17 gm PO DAILY PRN PRN Reason: constipation Sodium Biphosphate/Sodium Phosphate (Sodium Phosphate,[place]-Dibasic 133 Ml Enema) 118 ml IA DAILY PRN PRN Reason: Constipation Sodium Chloride (0.9 % Sodium Chloride Flush 3 Ml Syringe) 3 ml IVFLUSH QSHIFT [facility] Last Admin: 03/21/23 09:49 Dose: 3 ml Documented By: ANDRADE Tamsulosin HCl (Tamsulosin Hcl 0.4 Mg Capsule) 0.4 mg PO BEDTIME [facility] Last Admin: 03/20/23 22:21 Dose: 0.4 mg Documented By: SMITH Labs 03/21/23 06:53 03/21/23 06:54 Labs: Laboratory Results - last 24 hr 03/20/23 03/20/23 03/20/23 16:05 20:13 22:28 MCV MCH MCHC RDW Plt Count MPV Absolute Nucleated RBC Nucleated RBC % (auto) PT INR Anion Gap Estim Creat Clear Calc Estimated GFR POC Glucose 258 H 266 H 267 H Random Glucose Calcium Vancomycin Trough 03/21/23 03/21/23 03/21/23 06:53 06:53 06:54 MCV 83.6 MCH 25.9 L MCHC 31.0 RDW 17.3 H Plt Count 280 MPV 10.5 Absolute Nucleated RBC 0.000 Nucleated RBC % (auto) 0.0 PT 13.0 INR 1.1 Anion Gap 10 L Estim Creat Clear Calc 62.2 Estimated GFR 51 POC Glucose Random Glucose 270 H Calcium 8.4 Vancomycin Trough 03/21/23 03/21/23 03/21/23 09:18 11:08 13:01 MCV MCH MCHC RDW Plt Count MPV Absolute Nucleated RBC Nucleated RBC % (auto) PT INR Anion Gap Estim Creat Clear Calc Estimated GFR POC Glucose 201 H 236 H Random Glucose Calcium Vancomycin Trough 17.4 Microbiology Microbiology Results: Microbiology 03/18/23 09:28 Blood Culture - Preliminary Blood - Venous No growth after 48 hours. Procedures Date of Service Date of Service: 03/21/23 Progress Note: A&P Assessment and plan (1) Diabetic foot infection: Status: Acute Plan POD #3 s/p right heel debridement for necrotic wound. Wound overall clean. Minimal pain. Cont wet to dry dressings followed by jerson. Can f/u outpatient with Dr. Brown. Time Spent With Patient Time: Total time managing care of this patient today ____ minutes. Quality Stroke Does the patient have a stroke diagnosis?: No VTE Prior VTE?: No VTE Risk Level:: Medical - moderate - high VTE Device Contraindication: Treatment Not Indicated VTE Drug Contraindication: N/A - Med Ordered
--- NOTE | 2023-03-21 14:49 | MHC.CM.PN ---
PT NOT READY TO DC TODAY PER PN PT WILL HAVE A PICC LINE PLACED PRIOR TO DC AND NEED IV ABX SNF INFORMED VIA [facility] PT EVAL ALSO FORWARDED TO FACILITY
[2023-03-21] MEDS: vancomycin HCL 1,000 MG in 0.9 % Sodium Chloride 250 ML 270 MG IV (16:19)
[2023-03-21 16:33] LABS: Glucose, Whole Blood 329 mg/dL (60-115)
[2023-03-21] MEDS: ondansetron HCL 4 MG/2 ML VIAL IVPUSH (17:48)
[2023-03-21] MEDS: Atorvastatin Calcium 10 MG TABLET PO (20:24)
[2023-03-21] MEDS: Tamsulosin HCL 0.4 MG CAPSULE PO (20:24)
[2023-03-21] MEDS: oxyCODONE HCl Immed Release 5 MG TABLET PO (20:24)
[2023-03-21 20:52] LABS: Glucose, Whole Blood 353 mg/dL (60-115)
[2023-03-21] MEDS: Insulin Glargine,Hum.rec.anlog 100 UNIT/ML 10 ML VIAL SUBCUT (21:55)
[2023-03-22 03:40] VITALS: BP 147/69; PULSE 70; RESP 18; TEMP 36.3; O2SAT 98
[2023-03-22 07:23] LABS: Glucose, Whole Blood 147 mg/dL (60-115)
[2023-03-22 07:24] LABS: Creatinine Clr Calc Pharmacy 68.9; Estimated Glomerular Filt Rate 57
[2023-03-22 07:43] VITALS: BP 150/74; PULSE 71; RESP 16; TEMP 36.2; O2SAT 98
[2023-03-22] MEDS: Clopidogrel Bisulfate 75 MG TABLET PO (08:24)
[2023-03-22] MEDS: NIFEdipine ER 60 MG TAB.ER.24 PO (08:24)
[2023-03-22] MEDS: Ferrous Sulfate 324 MG TABLET.DR PO (08:24)
[2023-03-22] MEDS: Omeprazole 20 MG CAPSULE.DR PO (08:24)
[2023-03-22] MEDS: Escitalopram Oxalate 10 MG TABLET PO (08:24)
[2023-03-22] MEDS: Aspirin 81 MG TAB.CHEW PO (08:24)
[2023-03-22] MEDS: Heparin Sodium,Porcine 5,000 UNIT/ML VIAL 5000 UNIT SUBCUT (08:25)
[2023-03-22] MEDS: 0.9 % Sodium Chloride Flush 3 ML SYRINGE IVFLUSH ×2 (08:25→17:08)
[2023-03-22] MEDS: methADONE HCl 20 MG/2 ML ORAL.CONC 45 MG PO (08:25)
[2023-03-22] MEDS: Morphine Sulfate 4 MG/ML CARTRIDGE 3 MG IVPUSH (08:41)
[2023-03-22 11:16] LABS: Glucose, Whole Blood 199 mg/dL (60-115)
[2023-03-22 11:18] VITALS: BP 135/69; PULSE 78; RESP 18; TEMP 37; O2SAT 98
--- NOTE | 2023-03-22 12:40 | MHC.CM.PN ---
Per MD in [facility], Patient can be dc/return to to LTC @ [facility], once PICC is in place. CM will follow.
--- NOTE | 2023-03-22 12:43 | PM.CNNEP ---
History of Present Illness Reason for Consult Consult date: 03/22/23 Chief Complaint Chief complaint: Osteomyelitis History of Present Illness Narrative: 57 years old male with CKD III presented to hospital feeling weak with chills as well as Rt heel blackish wound. At presentation he could not recall for how long does he have the wound in his heel. He presented from the facility today for worsening odor and discoloration of the right heel wound. he reports walking around using the walker but spent most of the day sitting or laying. He reported some chills but denies fever, nausea, vomiting, diarrhea, sob, chest pain, or urinary symptoms.In ED found to be septic with elevated WBCs and HR. started on broad spectrum antibiotics and was admitted for further management. Nephrology has been consulted to assist in his clinical care during his current hospital stay Review of Systems Review of Systems Yes all other systems are reviewed and are negative PMFSH Past Medical History Medical History Anemia Chronic anemia CKD (chronic kidney disease) Colon cancer Colonic mass Diabetes Diabetes type 2, controlled Diabetic infection of left foot Fever of unknown origin History of prostate cancer Migraine Morbid obesity Opioid use disorder Osteomyelitis PAD (peripheral artery disease) Sleep apnea Family History Family History Mother No pertinent family history Family history: reviewed and not pertinent Surgical History Surgical History Hx of colectomy (01/20/23) S/P transmetatarsal amputation of foot Social History Social History Household Members: None Housing: Assisted Living Facility Do you presently have visiting nurse or other home services: Yes Alcohol intake: never Patient Tobacco Use Status: Never used Tobacco Substance Use Type: Opiates Advance Directives Date on File: 01/11/23 service: No Current occupational status: disabled Meds Allergies Allergy/AdvReac Type Severity Reaction Status Date / Time No Known Allergies Allergy Verified 03/14/23 12:56 [No Known Allergies*] Active Medications: Current Medications Acetaminophen (Acetaminophen 325 Mg Tablet) 975 mg PO Q6H PRN PRN Reason: Fever Last Admin: 08/11/23 14:15 Dose: 975 mg Al Hydroxide/Mg Hydroxide (Magnesium Hydrox/Alum Hydrox 30 Ml Oral.Susp) 15 ml PO Q6H PRN PRN Reason: Dyspepsia Aspirin (Aspirin 81 Mg Tab.Chew) 81 mg PO DAILY [facility] Last Admin: 03/22/23 08:24 Dose: 81 mg Atorvastatin Calcium (Atorvastatin Calcium 10 Mg Tablet) 10 mg PO BEDTIME [facility] Last Admin: 03/21/23 20:24 Dose: 10 mg Bisacodyl (Bisacodyl 10 Mg Supp.Rect) 10 mg RI DAILY PRN PRN Reason: Constipation Clopidogrel Bisulfate (Clopidogrel Bisulfate 75 Mg Tablet) 75 mg PO DAILY [facility] Last Admin: 03/22/23 08:24 Dose: 75 mg Escitalopram Oxalate (Escitalopram Oxalate 10 Mg Tablet) 10 mg PO DAILY [facility] Last Admin: 03/22/23 08:24 Dose: 10 mg Ferrous Sulfate (Ferrous Sulfate 324 Mg Tablet.Dr) 324 mg PO BID [facility] Last Admin: 03/22/23 08:24 Dose: 324 mg Heparin Sodium (Porcine) (Heparin Sodium,Porcine 5,000 Unit/Ml Vial) 5,000 unit SUBCUT Q12H [facility] Last Admin: 03/22/23 08:25 Dose: 5,000 unit Hydroxyzine HCl (Hydroxyzine Hcl 10 Mg Tablet) 10 mg PO Q6H PRN PRN Reason: Anxiety Vancomycin HCl 1,000 mg/ (Sodium Chloride) 270 mls @ 270 mls/hr IV Q24H [facility] Last Infusion: 03/21/23 17:44 Dose: Infused Insulin Glargine (Insulin Glargine,Hum.Rec.Anlog 100 Unit/Ml 10 Ml Vial) 5 unit SUBCUT BEDTIME [facility] Last Admin: 03/21/23 21:55 Dose: 5 unit Insulin Human Lispro (Insulin Lispro 100 Unit/Ml 3 Ml Vial) 0 unit SUBCUT QIDACHS [facility]; Protocol Last Admin: 03/22/23 07:50 Dose: Not Given Loperamide HCl (Loperamide Hcl 2 Mg Capsule) 2 mg PO Q4H PRN PRN Reason: Loose Stool Methadone HCl (Methadone Hcl 20 Mg/2 Ml Oral.Conc) 45 mg PO DAILY [facility] Last Admin: 03/22/23 08:25 Dose: 45 mg Morphine Sulfate (Morphine Sulfate 4 Mg/Ml Cartridge) 3 mg IVPUSH Q4H PRN; Protocol PRN Reason: Pain, Severe (Pain Scale 7-10) Last Admin: 03/22/23 08:41 Dose: 3 mg Naloxone HCl (Naloxone Hcl Nasal 4 Mg [place]) 4 mg NOSTRILALT Q3M PRN PRN Reason: Opioid Overdose Nifedipine (Nifedipine Er 60 Mg Tab.Er.24) 60 mg PO DAILY [facility]; Protocol Last Admin: 03/22/23 08:24 Dose: 60 mg Omeprazole (Omeprazole 20 Mg Capsule.Dr) 20 mg PO DAILY@0630 [facility] Last Admin: 03/22/23 08:24 Dose: 20 mg Ondansetron HCl (Ondansetron Hcl 4 Mg/2 Ml Vial) 4 mg IVPUSH Q8H PRN PRN Reason: Nausea and Vomiting Last Admin: 03/21/23 17:48 Dose: 4 mg Ondansetron HCl (Ondansetron Odt 4 Mg Tab.Rapdis) 4 mg TRANSLINGU Q8H PRN PRN Reason: Nausea Oxycodone HCl (Oxycodone Hcl Immed Release 5 Mg Tablet) 5 mg PO Q4H PRN PRN Reason: Pain, Moderate(Pain Scale 4-6) Last Admin: 03/21/23 20:24 Dose: 5 mg Pharmacy Consult (Consult Rx Vancomycin Dosing) 1 each MISCELLANE DAILY PRN PRN Reason: Consult order Polyethylene Glycol (Polyethylene Glycol 3350 17 Gm Powd.Pack) 17 gm PO DAILY PRN PRN Reason: constipation Sodium Biphosphate/Sodium Phosphate (Sodium Phosphate,[place]-Dibasic 133 Ml Enema) 118 ml RI DAILY PRN PRN Reason: Constipation Sodium Chloride (0.9 % Sodium Chloride Flush 3 Ml Syringe) [facility] Last Admin: 03/22/23 08:25 Dose: 3 ml Tamsulosin HCl (Tamsulosin Hcl 0.4 Mg Capsule) 0.4 mg PO BEDTIME [facility] Last Admin: 03/21/23 20:24 Dose: 0.4 mg Home Medications Medication Instructions Recorded Confirmed Last Taken Type clopidogrel 75 mg tablet 1 tab PO DAILY 06/17/22 03/16/23 01/24/23 History methadone 10 mg/mL oral concentrate 45 mg PO DAILY 06/17/22 03/16/23 03/16/23 09:00 History tamsulosin 0.4 mg capsule 1 cap PO BEDTIME 06/17/22 03/16/2301/24/23 History atorvastatin 10 mg tablet 10 mg PO BEDTIME 01/11/23 03/16/23 01/24/23 History citalopram 20 mg tablet 20 mg PO DAILY 01/11/23 03/16/23 01/24/23 History insulin glargine 100 unit/mL 5 unit subcut BEDTIME 01/11/23 03/16/23 01/24/23 History subcutaneous solution (Lantus U-100 Insulin) naloxone 4 mg/actuation nasal 4 mg intranasal Q3M PRN Opioid 01/11/23 03/16/23 Unknown History spray (Narcan) Overdose omeprazole 20 mg capsule,delayed 20 mg PO DAILY@0630 01/11/23 03/16/23 01/24/23 History release acetaminophen 325 mg tablet 650 mg PO Q4H PRN Fever Or Pain 03/16/23 03/16/23 Unknown History acetaminophen 325 mg tablet 975 mg PO Q8H PRN Pain 03/16/23 03/16/23 Unknown History aluminum-mag hydroxide-simethicone 15 ml PO Q6H PRN Dyspepsia 03/16/23 03/16/23 Unknown History 200 mg-200 mg-20 mg/5 mL oral susp aspirin 81 mg chewable tablet 81 mg PO DAILY 03/16/23 03/16/23 Unknown History bisacodyl 10 mg rectal suppository 10 mg RI DAILY PRN Constipation 03/16/23 03/16/23 Unknown History ferrous sulfate 325 mg (65 mg 325 mg PO BID 03/16/23 03/16/23 Unknown History iron) tablet hydroxyzine HCl 10 mg tablet 10 mg PO Q6H PRN Anxiety 03/16/23 03/16/23 Unknown History insulin lispro 100 unit/mL 1 sliding scale dose subcut 03/16/23 03/16/23 Unknown History subcutaneous solution USEASDIRECTD loperamide 2 mg tablet (Imodium 2 mg PO Q4H PRN Loose Stool 03/16/23 03/16/23 Unknown History A-D) nifedipine 60 mg tablet,extended 60 mg PO DAILY 03/16/23 03/16/23 Unknown History release 24 hr ondansetron HCl 4 mg tablet 4 mg PO Q8H PRN Nausea 03/16/23 03/16/23 Unknown History sodium phosphates 19 gram-7 118 ml RI DAILY PRN Constipation 03/16/23 03/16/23 Unknown History gram/118 mL enema (Fleet Enema) Physical Exam Vital Signs: Last Vital Signs Temp 98.6 F 03/22/23 11:18 Pulse 78 03/22/23 11:18 Resp 18 03/22/23 11:18 BP 135/69 03/22/23 11:18 Pulse Ox 98 03/22/23 11:18 O2 Del Method Room Air 03/22/23 11:18 O2 Flow Rate 2 03/18/23 19:30 BMI result Body Mass Index 32.9 Const General: no acute distress Orientation/consciousness: patient oriented x3 Eyes EOM: EOMs intact bilaterally Resp Auscultation: diminished lung sounds Cardio Rate: regular rate GI Palpation (GI): Soft to palpation Neuro General: patient oriented x3 Results Lab Results 03/21/23 06:53 03/22/23 06:46 Lab results: Chemistry 03/20/23 03/21/23 03/22/23 06:54 06:54 06:46 Sodium 140 Potassium 4.1 Carbon Dioxide 30 H BUN 17 H Creatinine 1.54 H 1.44 H 1.30 Calcium 8.4 Hematology 03/21/23 06:53 WBC 9.4 Hgb 7.6 L Plt Count 280 Assessment and Plan (1) Chronic kidney disease, stage 3: Status: Acute Plan Has CKD for a long time Renal function stable Need to monitor Vancomycin level Can have PICC line Concur with rest of current supportive care Time Spent With Patient Time: Total time managing care of this patient today ____ minutes. Procedures Date of Service Date of Service: 03/22/23
--- NOTE | 2023-03-22 13:02 | PM.DS ---
DS: Providers Provider Date of Service: 03/22/23 Date of admission: 03/16/23 15:39 Primary care physician: Gissel Patino MD Consults: 03/16/23 15:44 Consult to General Surgery Routine Consulting [place] [facility] [place] [facility] [facility] Reason for consultation: Large foot wound with osteomyelitis Consult to Infectious Diseases Routine Consulting Provider[place] [facility] [place] Reason for consultation: Osteomyelitis of right heel 03/21/23 15:30 Consult to Nephrology Routine Consulting Provider: Twan Marley Reason for consultation: Need of PICC for 6 wks Abx, for your clearance. DS: Diagnosis Discharge Diagnosis (1) Chronic kidney disease, stage 3: Status: Acute (2) UTI (urinary tract infection): Status: Acute (3) Acute on chronic anemia: Status: Acute (4) Diabetic foot infection: Status: Acute (5) Sepsis: Status: Acute (6) Necrosis: Status: Acute (7) Osteomyelitis: Status: Acute DS: Summary Hospital Course Hospital Course: Admission note HPI A 57 years old male with PMH of DMII, PAD post lt transmetatarsal, CKD III, hx DU on Methadone, Presenting with feeling weak and chilly with reported Rt heel blackish wound. The patient can not recall for how long does he have the wound in his heel. He presented from the facility today for worsening odor and discoloration of the right heel wound which he was not sure for how long he has it now. he reports walking around using the walker but spent most of the day sitting or laying. report some chills but denies fever, nausea, vomiting, diarrhea, sob, chest pain, or urinary symptoms. In ED found to be septic with elevated WBCs and HR. started on broad spectrum antibiotics as an XR did not show OM but possible foreign body. Hospital course Admitted for treatment of Sepsis 2/2 heel wound infection w osteomyelitis and necrosis likely 2/[address] of foot concerning for possible OM in calcaneus bone high ESR of 119 raising suspecion of osteomyelitis with negative blood cultures. Surgery did surgical debridement on 03/18 and recommended a follow up with wound clinic and his vascular surgeon dr Brown as outpatient. ID evaluated the patient and recommended 6 weeks of Vancomycin to finish by 04/27/2023. PICC line placed. Treated for Urine infection as urine culture grew E.Coli. Finished 5 days of Abx. Noted to have Acute on chronic anemia. Irod Def. in nature. give 1 unit of blood , stable at 7.5. PO Iron supplement The patient will likely need less than 30 days stay in SNF. Last dose of Methadone 45 mg given 03/22 at 8:30 am/ Continue IV Vancomycin 1 gm as prescribed until 04/27/2023 Physical therapy Follow with dr Brown in 2-4 weeks Time Spent with Patient Time attestation: Total time managing care of this patient today ____ minutes. Discharge coordination time: Greater than 30 minutes Quality: Safe Use of Opioids Does Pt have an Active Cancer Diagnosis on the Problem List?: No Quality: Stroke Does the patient have a stroke diagnosis?: No Physical Exam Vital Signs: Vital Signs: Last Vital Signs Temp 98.6 F 03/22/23 11:18 Pulse 78 03/22/23 11:18 Resp 18 03/22/23 11:18 BP 135/69 03/22/23 11:18 Pulse Ox 98 03/22/23 11:18 O2 Del Method Room Air 03/22/23 11:18 O2 Flow Rate 2 03/18/23 19:30 BMI result Body Mass Index 32.9 Const: Other: Constitutional : Awake, interactive, not in distress Neck : Normal inspection, Supple Cardiovascular : RRR, no JVP, no lower extremity edema Respiratory : good bilateral air entry, no crackles, wheezes or rhonchi Gastrointestinal: soft, lax, Normal bowel sounds, Non tender Skin : Warm, Dry, Right heel covered with dressing with no erythema or drainage noted. Transmetatarsal Left foot amputation. peripheral pulses can be felt. Neurological : Alert & oriented x3, No focal deficit Extrem: Other: Left heel DS: Data Data Completed and Pending Completed studies during hospitalization [Text1]: Pending at discharge 03/18/23 13:09 Surgical [PTH] Routine Procedures Detachment at Left 4th Toe, Complete, Open Approach (04/04/22) Detachment at Left Foot, Partial 1st Ray, Open Approach (05/12/22) Detachment at Left Foot, Partial 2nd Ray, Open Approach (05/12/22) Detachment at Left Foot, Partial 3rd Ray, Open Approach (05/12/22) Detachment at Left Foot, Partial 4th Ray, Open Approach (05/12/22) Detachment at Left Foot, Partial 5th Ray, Open Approach (05/12/22) Dilation of Left Anterior Tibial Artery using Drug-Coated Balloon, Percutaneous Approach (05/12/22) Excision of Ascending Colon, Via Natural or Artificial Opening Endoscopic, Diagnostic (01/11/23) Excision of Left Foot Skin, External Approach (04/04/22) Excision of Stomach, Pylorus, Via Natural or Artificial Opening Endoscopic, Diagnostic (01/11/23) Insertion of Infusion Device into Superior Vena Cava, Percutaneous Approach (04/04/22) Insertion of Tunneled Vascular Access Device into Chest Subcutaneous Tissue and Fascia, Percutaneous Approach (04/04/22) Release Cecum, Open Approach (01/11/23) Resection of Right Large Intestine, Open Approach (01/11/23) Transfusion of Nonautologous Red Blood Cells into Peripheral Vein, Percutaneous Approach (01/11/23) Ultrasonography of Superior Vena Cava, Guidance (04/04/22) Labs on day of discharge: Laboratory Results - last 24 hr 03/21/23 03/21/23 03/21/23 13:01 16:30 20:47 Creatinine Estim Creat Clear Calc Estimated GFR POC Glucose 329 H 353 H* Vancomycin Trough 17.4 03/22/23 03/22/23 03/22/23 06:46 07:17 11:09 Creatinine 1.30 Estim Creat Clear Calc 68.9 Estimated GFR 57 POC Glucose 147 H 199 H Vancomycin Trough Preliminary micro results at discharge 03/18/23 09:28 Blood Culture - Preliminary Blood - Venous No growth after 48 hours. 03/18/23 06:22 Blood Culture - Preliminary Blood - Venous No growth after [address] foot : Radiologist's impression: ITS Impressions Chest X-Ray 03/16/23 15:05 IMPRESSION: No acute cardiopulmonary process. Foot X-Ray 03/16/23 15:05 IMPRESSION: 1. No acute visible fracture or dislocation. 2. Bilateral degenerative changes. 3. Radiopaque linear density along the right mid plantar soft tissues at the level of the proximal metatarsal heads measuring 9 mm, unclear etiology, correlation with physical exam as this may a retained foreign body. 4. Status post left transmetatarsal amputation along the base. 5. Plantar calcaneal heel spurs and enthesopathy at the Achilles tendon insertion site. Foot X-Ray 03/16/23 15:05 IMPRESSION: 1. No acute visible fracture or dislocation. 2. Bilateral degenerative changes. 3. Radiopaque linear density along the right mid plantar soft tissues at the level of the proximal metatarsal heads measuring 9 mm, unclear etiology, correlation with physical exam as this may a retained foreign body. 4. Status post left transmetatarsal amputation along the base. 5. Plantar calcaneal heel spurs and enthesopathy at the Achilles tendon insertion site. Foot CT 03/18/23 16:20 IMPRESSION: Soft tissue ulceration overlying the calcaneus. Gas is seen within the bone along the posterior margin of the calcaneus. This is concerning for osteomyelitis. Discharge Plan Discharge Anticipated Discharge Date/Time: 03/22/23 12:54 Patient Disposition: [facility] Discharge Diagnosis: Foot osteomyelitis Urine infection [facility] - 1 Week Gissel Patino MD [Primary Care Provider] - 1 Week Guy Brown MD [Physician] - 1 Week Discharge Medications: New oxycodone 5 mg Tablet 5 mg PO Q4H PRN (Reason: Pain, Moderate(Pain Scale 4-6)) Qty: 15 0RF Rx Instructions: Partial Fill upon patient request. Continued clopidogrel 75 mg tablet 1 tab PO DAILY tamsulosin 0.4 mg capsule 1 cap PO BEDTIME methadone 10 mg/mL Concentrate 45 mg PO DAILY atorvastatin 10 mg tablet 10 mg PO BEDTIME citalopram 20 mg tablet 20 mg PO DAILY omeprazole 20 mg Capsule,Delayed Release(Dr/Ec) 20 mg PO DAILY@0630 naloxone [Narcan] 4 mg/actuation [place],Non-Aerosol 4 mg INTRANASAL Q3M PRN (Reason: Opioid Overdose) Rx Instructions: spray 1 dose into ONE nostril; alternate nostrils w each dose until help arrives insulin glargine [Lantus U-100 Insulin] 100 unit/mL solution 5 unit subcut BEDTIME polyethylene glycol 3350 [Miralax] 17 gram/dose powder 17 g PO DAILY PRN (Reason: constipation) Qty: 119 0RF acetaminophen 325 mg Tablet 650 mg PO Q4H PRN (Reason: Fever Or Pain) acetaminophen 325 mg Tablet 975 mg PO Q8H PRN (Reason: Pain) loperamide [Imodium A-D] 2 mg Tablet 2 mg PO Q4H PRN (Reason: Loose Stool) Rx Instructions: administer after each loose stool until symptoms controlled; do not exceed 8 mg per 24 hrs bisacodyl 10 mg Suppository 10 mg MD DAILY PRN (Reason: Constipation) ferrous sulfate 325 mg (65 mg iron) Tablet 325 mg PO BID Fleet Enema 19-7 gram/118 mL Enema 118 ml MD DAILY PRN (Reason: Constipation) aspirin 81 mg Tablet,Chewable 81 mg PO DAILY alum-mag hydroxide-simeth 200-200-20 mg/5 mL Suspension 15 ml PO Q6H PRN (Reason: Dyspepsia) Rx Instructions: administer between meals and at bedtime insulin lispro 100 unit/mL Solution 1 sliding scale dose SUBCUT USEASDIRECTD Protocol: Insulin Correction Scale Less than or equal to 110 ---- Give (units): 0 111 to 150 Give (units): 0 151 to 200 Give (units): 2 201 to 250 Give (units): 4 251 to 300 Give (units): 6 301 to 350 Give (units): 8 Greater than 350 Give (units): 10 Call MD if Blood Glucose > : 350 hydroxyzine HCl 10 mg Tablet 10 mg PO Q6H PRN (Reason: Anxiety) ondansetron HCl 4 mg Tablet 4 mg PO Q8H PRN (Reason: Nausea) nifedipine 60 mg Tablet Extended Release 24hr 60 mg PO DAILY Discharge Orders: Discharge Order (Routine); Ordered 03/22/23 Ordered By: Tanja Jimenes Diet: Diabetic diet Activity on Discharge: As tolerated Stand Alone Forms: Patient Portal Discharge page Care Plan Goals: Read below Health Concerns: Read below Plan of Treatment: Read below Assessment: You were admitted for necrotic wound in your heel. cleaned and excised by surgeon dr Bartlett. treated with IV antibiotics as CT scan showed an evidence of bone infection. Infectious disease specialist recommended 6 weeks of IV Vancomycin. Continue IV Vancomycin 1 gm as prescribed until 04/27/2023 Physical therapy Follow with dr Brown in 2-4 weeks
--- NOTE | 2023-03-22 13:20 | HO.PICC ---
PICC Line Insertion NPICC Diagnosis: Osteomyelitis Indication: Alf IV antibiotic use; 6 weeks Pertinent Labs: Reviewed Technique: Following informed consent including risks, benefits and alternatives and using sterile technique including cap and mask, sterile gown, glove and drape, the RIGHT arm was prepped and draped in the usual sterile fashion of full barrier technique with G. Following completion of [place] Protocol the skin and soft tissues were anesthetized with 1% Lidocaine plain. Using ultrasound guidance, [RIGHT BASILIC vein access was obtained with first attempt. Over an 0.018 wire through peel-away sheath, a 4 FR single lumen PICC line PASV was positioned. Catheter length is 42cm internal length, 0cm external length, for a total trimmed length of 42cm. The procedure was performed in S272. Tip verification was performed by Beryl Vernon with Jama 3CG. Tip located in SVC. Ultrasound was used to document vein patency and for needle entry. A formal ultrasound picture and cardiac rhythm strip was recorded. V[employer] has released the line for use and it is currently dressed with a StatLock, Tegaderm, and CHG disc. Verification has been performed for blood return and line patency. Arm Circumference: 29 cm Equipment: [employer] PowerPICC solo catheter. Catheter Type: 4 FR single lumen PICC PASV Lot #: [id number]
[2023-03-22] MEDS: vancomycin HCL 1,000 MG in 0.9 % Sodium Chloride 250 ML 270 MG IV (13:44)
--- NOTE | 2023-03-22 14:08 | MHC.CM.PN ---
Per MD, Patient will be medically cleared for dc today to return to [facility] today at 6:30 PM, via [facility]. CM met with Patient at bedside and addressed IMM with him, providing Patient with the original and placing a copy on the chart. DEEDEE spoke with Patient's /Lani @ [phone] and informed her of the dc plan.
[2023-03-22 14:36] LABS: Vancomycin Random 39.3 mcg/mL (15-20)
--- NOTE | 2023-03-22 14:36 | HO.PM.IMPN ---
Subjective Subjective Date of Service: 03/23/23 Interval History: seen and evaluated this morning Elevated Vancomycin trough level of 39, repeated in 2 hours of 30 after finishing his daily dose of Vancomycin; wrong timing for trough level no reported pain in the heel cultures negative wound looks clean Review of Systems Review of Systems: Yes all other systems are reviewed and are negative Physical Exam Vital Signs: Vital Signs: Last Vital Signs Temp 98.6 F 03/22/23 11:18 Pulse 78 03/22/23 11:18 Resp 18 03/22/23 11:18 BP 135/69 03/22/23 11:18 Pulse Ox 98 03/22/23 11:18 O2 Del Method Room Air 03/22/23 11:18 O2 Flow Rate 2 03/18/23 19:30 BMI result Body Mass Index 32.9 Const: Other: Constitutional : Awake, interactive, not in distress Neck : Normal inspection, Supple Cardiovascular : RRR, no JVP, no lower extremity edema Respiratory : good bilateral air entry, no crackles, wheezes or rhonchi Gastrointestinal: soft, lax, Normal bowel sounds, Non tender Skin : Warm, Dry, Right heel covered with dressing with no erythema or drainage noted. Transmetatarsal Left foot amputation. peripheral pulses can be felt. PICC Line inplace Neurological : Alert & oriented x3, No focal deficit Objective Data Active Medications Acetaminophen (Acetaminophen 325 Mg Tablet) 975 mg PO Q6H PRN PRN Reason: Fever Last Admin: 03/18/23 14:15 Dose: 975 mg Documented By: NORMA Al Hydroxide/Mg Hydroxide (Magnesium Hydrox/Alum Hydrox 30 Ml Oral.Susp) 15 ml PO Q6H PRN PRN Reason: Dyspepsia Aspirin (Aspirin 81 Mg Tab.Chew) 81 mg PO DAILY [facility] Last Admin: 03/22/23 08:24 Dose: 81 mg Documented By: CARLINE Atorvastatin Calcium (Atorvastatin Calcium 10 Mg Tablet) 10 mg PO BEDTIME [facility] Last Admin: 03/21/23 20:24 Dose: 10 mg Documented By: MONAE Bisacodyl (Bisacodyl 10 Mg Supp.Rect) 10 mg ND DAILY PRN PRN Reason: Constipation Clopidogrel Bisulfate (Clopidogrel Bisulfate 75 Mg Tablet) 75 mg PO DAILY [facility] Last Admin: 03/22/23 08:24 Dose: 75 mg Documented By: CARLINE Escitalopram Oxalate (Escitalopram Oxalate 10 Mg Tablet) 10 mg PO DAILY [facility] Last Admin: 03/22/23 08:24 Dose: 10 mg Documented By: CARLINE Ferrous Sulfate (Ferrous Sulfate 324 Mg Tablet.Dr) 324 mg PO BID [facility] Last Admin: 03/22/23 08:24 Dose: 324 mg Documented By: CARLINE Heparin Sodium (Porcine) (Heparin Sodium,Porcine 5,000 Unit/Ml Vial) 5,000 unit SUBCUT Q12H [facility] Last Admin: 03/22/23 08:25 Dose: 5,000 unit Documented By: CARLINE Hydroxyzine HCl (Hydroxyzine Hcl 10 Mg Tablet) 10 mg PO Q6H PRN PRN Reason: Anxiety Vancomycin HCl 1,000 mg/ (Sodium Chloride) 270 mls @ 270 mls/hr IV Q24H [facility] Last Admin: 03/22/23 13:44 Dose: 270 mls/hr Documented By: CARLINE Insulin Glargine (Insulin Glargine,Hum.Rec.Anlog 100 Unit/Ml 10 Ml Vial) 5 unit SUBCUT BEDTIME [facility] Last Admin: 03/21/23 21:55 Dose: 5 unit Documented By: ANDREW Insulin Human Lispro (Insulin Lispro 100 Unit/Ml 3 Ml Vial) 0 unit SUBCUT QIDACHS [facility]; Protocol Last Admin: 03/22/23 13:45 Dose: Not Given Documented By: CARLINE Non-Admin Reason: Off Unit: Surgery Loperamide HCl (Loperamide Hcl 2 Mg Capsule) 2 mg PO Q4H PRN PRN Reason: Loose Stool Methadone HCl (Methadone Hcl 20 Mg/2 Ml Oral.Conc) 45 mg PO DAILY [facility] Last Admin: 03/22/23 08:25 Dose: 45 mg Documented By: CARLINE Morphine Sulfate (Morphine Sulfate 4 Mg/Ml Cartridge) 3 mg IVPUSH Q4H PRN; Protocol PRN Reason: Pain, Severe (Pain Scale 7-10) Last Admin: 03/22/23 08:41 Dose: 3 mg Documented By: CARLINE Naloxone HCl (Naloxone Hcl Nasal 4 Mg [place]) 4 mg NOSTRILALT Q3M PRN PRN Reason: Opioid Overdose Nifedipine (Nifedipine Er 60 Mg Tab.Er.24) 60 mg PO DAILY [facility]; Protocol Last Admin: 03/22/23 08:24 Dose: 60 mg Documented By: CARLINE Omeprazole (Omeprazole 20 Mg Capsule.Dr) 20 mg PO DAILY@0630 [facility] Last Admin: 03/22/23 08:24 Dose: 20 mg Documented By: CARLINE Ondansetron HCl (Ondansetron Hcl 4 Mg/2 Ml Vial) 4 mg IVPUSH Q8H PRN PRN Reason: Nausea and Vomiting Last Admin: 03/21/23 17:48 Dose: 4 mg Documented By: RANDA Ondansetron HCl (Ondansetron Odt 4 Mg Tab.Rapdis) 4 mg TRANSLINGU Q8H PRN PRN Reason: Nausea Oxycodone HCl (Oxycodone Hcl Immed Release 5 Mg Tablet) 5 mg PO Q4H PRN PRN Reason: Pain, Moderate(Pain Scale 4-6) Last Admin: 03/21/23 20:24 Dose: 5 mg Documented By: MONAE Pharmacy Consult (Consult Rx Vancomycin Dosing) 1 each MISCELLANE DAILY PRN PRN Reason: Consult order Polyethylene Glycol (Polyethylene Glycol 3350 17 Gm Powd.Pack) 17 gm PO DAILY PRN PRN Reason: constipation Sodium Biphosphate/Sodium Phosphate (Sodium Phosphate,Phelps-Dibasic 133 Ml Enema) 118 ml ND DAILY PRN PRN Reason: Constipation Sodium Chloride (0.9 % Sodium Chloride Flush 3 Ml Syringe) 3 ml IVFLUSH QSHI Last Admin: 03/22/23 08:25 Dose: 3 ml Documented By: CARLINE Sodium Chloride (0.9 % Sodium Chloride Flush 10 Ml Syringe) 5 ml IVFLUSH TID [facility] Tamsulosin HCl (Tamsulosin Hcl 0.4 Mg Capsule) 0.4 mg PO BEDTIME [facility] Last Admin: 03/21/23 20:24 Dose: 0.4 mg Documented By: MONAE Labs 03/21/23 06:53 03/22/23 06:46 Labs: Laboratory Results - last 24 hr 03/21/23 03/21/23 03/22/23 16:30 20:47 06:46 Estim Creat Clear Calc 68.9 Estimated GFR 57 POC Glucose 329 H 353 H* 03/22/23 03/22/23 07:17 11:09 Estim Creat Clear Calc Estimated GFR POC Glucose 147 H 199 H Assessment and Plan (1) UTI (urinary tract infection): Status: Acute (2) Osteomyelitis: Status: Acute (3) Acute on chronic anemia: Status: Acute (4) Diabetic foot infection: Status: Acute Plan A 57 years old male with PMH of DMII, PAD post lt transmetatarsal, CKD III, hx DU on Methadone, Presenting with feeling weak and chilly with reported Rt heel blackish wound. Sepsis 2/2 heel wound infection w osteomyelitis and necrosis likely 2/2 diabetic foot ulcer XR showing no evidence of osteomyelitis but has high ESR of 119 raising suspecion of underlying bone infection negative blood cultures CT of foot concerning for possible OM Surgery did surgical debridement, will need follow up with wound clinic as outpatient ID input appreciated, 6 weeks of Vancomycin Elevated Vancomycin trough level of 39, repeated in 2 hours of 30 after finishing his daily dose of Vancomycin; wrong timing for trough level follow Vancomycin trough tomorrow PICC line placed and functioning PT eval rec SNF Urine infection Cx growing E.Coli Finished 5 days of Abx. Acute on chronic anemia VICTORIA, possible chronic blood loss related give 1 unit of blood , stable at 7.5 PO Iron supplement Type II DM Diabetic diet POC, SSI Lantus Hx Opioid abuse Continue Methadone HTN Nifedipine BPH Tamsulosin PAD ASA, Plavix DVT PPx Heparin The patient will need overnight hospital stay for sepsis pending cultures and need of surgical intervention Time Spent With Patient Time: Total time managing care of this patient today ____ minutes. Quality Stroke Does the patient have a stroke diagnosis?: No VTE Prior VTE?: No VTE Risk Level:: Medical - moderate - high VTE Device Contraindication: Treatment Not Indicated VTE Drug Contraindication: N/A - Med Ordered
[2023-03-22 15:26] VITALS: BP 167/80; PULSE 67; RESP 18; TEMP 35.9; O2SAT 98
--- NOTE | 2023-03-22 15:29 | MHC.CM.PN ---
Per MD, anticipated dc today at 6:30 is pending the results of the 4PM Vanco Trough today. CM will follow.
[2023-03-22 16:31] LABS: Glucose, Whole Blood 300 mg/dL (60-115)
[2023-03-22 16:47] LABS: Vancomycin Random 30.5 mcg/mL (15-20)
[2023-03-22] MEDS: 0.9 % Sodium Chloride Flush 10 ML SYRINGE 5 ML IVFLUSH (17:08)
[2023-03-22] MEDS: Insulin Lispro 100 UNIT/ML 3 ML VIAL SUBCUT (17:12)
== END 2023-03-22 19:00 | disposition skilled nursing facility (03) | DRG 854 ==
LOC: HO.ED 15:14 → HO.EDOVER 16:03 → HO.IMC 18:03
PROVIDERS: Physician Assistant; Surgery; Admitting Provider Student in an Organized Health Care Education/Training Program; Emergency Provider Student in an Organized Health Care Education/Training Program; PCP Family Medicine Geriatric Medicine; Visit Provider Student in an Organized Health Care Education/Training Program
PROC: 0JBQ0ZZ Excision of Right Foot Subcutaneous Tissue and Fascia, Open Approach (ICD-10-PCS; principal; 2023-03-18 12:50)
DX: A41.9 Sepsis, unspecified organism (principal); F11.20 Opioid dependence, uncomplicated; I96 Gangrene, not elsewhere classified; M86.9 Osteomyelitis, unspecified; N39.0 Urinary tract infection, site not specified; I12.9 Hypertensive chronic kidney disease with stage 1 through stage 4 chronic kidney disease, or unspecified chronic kidney disease; N18.30 Chronic kidney disease, stage 3 unspecified; E11.22 Type 2 diabetes mellitus with diabetic chronic kidney disease; D63.1 Anemia in chronic kidney disease; D50.0 Iron deficiency anemia secondary to blood loss (chronic); E11.51 Type 2 diabetes mellitus with diabetic peripheral angiopathy without gangrene; B96.20 Unspecified Escherichia coli [E. coli] as the cause of diseases classified elsewhere; B96.1 Klebsiella pneumoniae [K. pneumoniae] as the cause of diseases classified elsewhere; E11.69 Type 2 diabetes mellitus with other specified complication; L89.619 Pressure ulcer of right heel, unspecified stage; N40.0 Benign prostatic hyperplasia without lower urinary tract symptoms; Z86.14 Personal history of Methicillin resistant Staphylococcus aureus infection; Z79.4 Long term (current) use of insulin; Z79.02 Long term (current) use of antithrombotics/antiplatelets; Z79.82 Long term (current) use of aspirin; Z79.899 Other long term (current) drug therapy
CPT/HCPCS: 36415; 36573; 71045; 73620; 73700; 80048; 80076; 80202; 81001; 81003; 82565; 82947; 83036; 83540; 83605; 83735; 83880; 84484; 85025; 85027; 85610; 85652; 86140; 86850; 86900; 86901; 86923; 87040; 87077; 87086; 87088; 87147; 87186; 87205; 88304; 93005; 93306; 97162; 99285; C1751; J1643; J2250; J2270; J2405; J2543; J3010; J3370; J3371; P9016

== ENCOUNTER → 2023-03-16 13:53 | Outpatient (BNV) | payer MEDICARE, MEDICAID, SELFPAY | PROVIDERS: Admitting Provider Student in an Organized Health Care Education/Training Program; Emergency Provider Student in an Organized Health Care Education/Training Program; PCP Family Medicine Geriatric Medicine; Visit Provider Internal Medicine Cardiovascular Disease | DX: R00.0 Tachycardia, unspecified (principal) | CPT/HCPCS: 93010 ==

== ENCOUNTER 2023-03-16 15:39 | Outpatient (BNV) | payer MEDICARE, MEDICAID, SELFPAY | END 2023-03-18 07:00 | PROVIDERS: Admitting Provider Student in an Organized Health Care Education/Training Program; Emergency Provider Student in an Organized Health Care Education/Training Program; PCP Family Medicine Geriatric Medicine; Visit Provider Internal Medicine Cardiovascular Disease | DX: I71.21 Aneurysm of the ascending aorta, without rupture (principal) | CPT/HCPCS: 93306 ==

== ENCOUNTER → 2023-03-16 15:39 | Outpatient (BNV) | payer MEDICARE, MEDICAID, SELFPAY | PROVIDERS: Admitting Provider Student in an Organized Health Care Education/Training Program; Emergency Provider Student in an Organized Health Care Education/Training Program; PCP Family Medicine Geriatric Medicine; Visit Provider Student in an Organized Health Care Education/Training Program | DX: N18.30 Chronic kidney disease, stage 3 unspecified (principal); E11.628 Type 2 diabetes mellitus with other skin complications; A41.9 Sepsis, unspecified organism; I96 Gangrene, not elsewhere classified; N39.0 Urinary tract infection, site not specified; D64.9 Anemia, unspecified; L08.9 Local infection of the skin and subcutaneous tissue, unspecified; M86.9 Osteomyelitis, unspecified | CPT/HCPCS: 99223; 99233; 99239 ==

== ENCOUNTER → 2023-03-16 15:39 | Outpatient (BNV) | payer MEDICARE, MEDICAID, SELFPAY | PROVIDERS: Admitting Provider Student in an Organized Health Care Education/Training Program; Emergency Provider Student in an Organized Health Care Education/Training Program; PCP Family Medicine Geriatric Medicine; Visit Provider Surgery | DX: E11.628 Type 2 diabetes mellitus with other skin complications (principal); L08.9 Local infection of the skin and subcutaneous tissue, unspecified | CPT/HCPCS: 11042; 11045; 99223; 99231; 99499 ==

== ENCOUNTER → 2023-03-16 15:39 | Outpatient (BNV) | payer MEDICARE, MEDICAID, SELFPAY | PROVIDERS: Admitting Provider Student in an Organized Health Care Education/Training Program; Emergency Provider Student in an Organized Health Care Education/Training Program; PCP Family Medicine Geriatric Medicine; Visit Provider Internal Medicine | DX: E11.628 Type 2 diabetes mellitus with other skin complications (principal); L08.9 Local infection of the skin and subcutaneous tissue, unspecified; A41.9 Sepsis, unspecified organism | CPT/HCPCS: 99222 ==

== ENCOUNTER → 2023-03-31 13:42 | Outpatient (BNV) | payer MEDICARE, MEDICAID, SELFPAY | PROVIDERS: PCP Internal Medicine; Visit Provider Internal Medicine | DX: C18.9 Malignant neoplasm of colon, unspecified (principal); D64.9 Anemia, unspecified | CPT/HCPCS: 99204; 99214; G2211 ==

== ENCOUNTER 2023-04-04 11:00 | Outpatient (AMB) | payer MEDICARE, MEDICAID, SELFPAY ==
[2023-04-04 11:15] VITALS: BMI 32.4
--- NOTE | 2023-04-04 11:15 | A.OFFVIS_ITS ---
Intake Vital Signs 04/04/23 11:15 Height 5 ft 7 in Weight 207 lb BMI 32.4 Intake Visit Reasons: Osteomyelitis, Necrosis rt heel Intake Note: Patient here to f/u ER visit on 03-16-2023. Reports abd incisions healing well. Denies bleeding or itch. 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 Allergies No Known Allergies [No Known Allergies*] Allergy (Verified 04/04/23 11:18) Medication List - Last Reconciled 04/04/23 by Parish Santana MD acetaminophen 650 mg PO Q4H PRN acetaminophen 975 mg PO Q8H PRN alum-mag hydroxide-simeth 200-200-20 mg/5 mL 15 mL PO Q6H PRN aspirin 81 mg PO DAILY atorvastatin 10 mg PO BEDTIME bisacodyl 10 mg NC DAILY PRN citalopram 20 mg PO DAILY clopidogrel 1 tab PO DAILY ferrous sulfate 325 mg PO BID hydroxyzine HCl 10 mg PO Q6H PRN insulin glargine (Lantus U-100 Insulin) 5 units subcut BEDTIME insulin lispro 1 sliding scale dose See Protocol subcut USEASDIRECTD loperamide (Imodium A-D) 2 mg PO Q4H PRN methadone 45 mg PO DAILY naloxone 4 mg/actuation (Narcan) 4 mg intranasal Q3M PRN nifedipine ER 60 mg PO DAILY omeprazole 20 mg PO DAILY@0630 ondansetron HCl 4 mg PO Q8H PRN oxycodone 5 mg PO Q4H PRN polyethylene glycol 3350 (Miralax) 17 grams PO DAILY PRN sodium phosphates 19-7 gram/118 mL (Fleet Enema) 118 mL NC DAILY PRN tamsulosin 1 cap PO BEDTIME HPI Osteomyelitis, Necrosis rt heel HPI Details He is here for follow-up for right heel ulcer. He has been bed-bound since right colon resection for cancer in January,. He is currently in rehab. He has this right heel ulcer with an eschar. He has good GI functions. He denies abdominal complaints. [facility] Medical History (Updated 04/04/23 @ 11:34 by Parish Santana MD) Acute on chronic anemia Anemia Chronic anemia Chronic kidney disease, stage 3 CKD (chronic kidney disease) Colon cancer Colonic mass Diabetes Diabetes type 2, controlled Diabetic infection of left foot Eschar of heel Fever of unknown origin History of prostate cancer Migraine Morbid obesity Opioid use disorder Osteomyelitis PAD (peripheral artery disease) Sleep apnea Surgical History Hx of colectomy (01/20/23) S/P transmetatarsal amputation of foot Family History Mother No pertinent family history Social History Household Members: None Housing: Assisted Living Facility Do you presently have visiting nurse or other home services: Yes Alcohol intake: never Patient Tobacco Use Status: Never used Tobacco Substance Use Type: Opiates Advance Directives Date on File: 01/11/23 service: No Current occupational status: disabled Review of Systems Const Denies chills and Denies fever(s) Card Denies chest pain at rest GI Denies abdominal pain Denies difficulty urinating Physical Exam Vital Signs: BMI result Body Mass Index 32.4 Const Other: On stretcher Resp Effort & Inspection: normal respiratory effort Cardio Rate: regular rate GI Other: Incisions well healed Palpation (GI): Soft to palpation, not firm and nontender Extrem Other: Right heel ulcer with eschar, about 6 cm in diameter Office Procedures Debridement 52156-Iyuygtnexac of skin tissue (Sharp excisional debridement of skin and soft tissue on the healed done for an area about 7 x 6 cm) Procedure code (CPT) selection complete Assessment & Plan Assessment & Plan (1) Eschar of heel: Code(s): R23.4 - Changes in skin texture Plan: He has a right here or ulcer with eschar. Ulcer measures about 7 cm. I proceeded to do sharp excisional debridement using scissors to remove this eschar which involved skin and subcutaneous tissue. I applied wet to dry dressing to the area and wrapped the foot and heel with Kerlix roll as well as gauze I have instructed him to keep the heel off of the bed. I will see him again in the office in 3 weeks He should continue with daily wound care with wet-to-dry dressings for this heel ulcer. (2) S/P right colectomy: Code(s): Z90.49 - Acquired absence of other specified parts of digestive tract Plan: He is doing well on his right colon resection. He is to continue to follow-up with Oncology for his T4 N2 colon cancer. He is supposed to start with chemotherapy once he is well recovered. Medications: Discontinued insulin glargine 70 units (0.7 mL) subcut DAILY 10 mL 0RF Coding Level of Care Code Est Pt Level 3 (38855) Diagnoses Eschar of heel R23.4 S/P right colectomy Z90.49 CPT Codes Skin Debridement - CPT: 13821-Gjyxkrcneqn of skin tissue ([id number])
== END 2023-04-04 11:30 | disposition home or self-care (01) ==
PROVIDERS: PCP Family Medicine Geriatric Medicine; Visit Provider Surgery
DX: R23.4 Changes in skin texture (principal); Z90.49 Acquired absence of other specified parts of digestive tract
CPT/HCPCS: 11042; 11045; 99213

== ENCOUNTER → 2023-04-04 11:00 | Outpatient (BNVA) | payer MEDICARE, MEDICAID, SELFPAY | PROVIDERS: PCP Family Medicine Geriatric Medicine; Visit Provider Surgery | DX: M86.171 Other acute osteomyelitis, right ankle and foot (principal); I73.9 Peripheral vascular disease, unspecified; E11.621 Type 2 diabetes mellitus with foot ulcer; L97.412 Non-pressure chronic ulcer of right heel and midfoot with fat layer exposed; R23.4 Changes in skin texture; E11.22 Type 2 diabetes mellitus with diabetic chronic kidney disease; N18.30 Chronic kidney disease, stage 3 unspecified; Z90.49 Acquired absence of other specified parts of digestive tract; Z79.4 Long term (current) use of insulin; Z79.891 Long term (current) use of opiate analgesic; Z74.01 Bed confinement status; Z89.439 Acquired absence of unspecified foot | CPT/HCPCS: 11042; 11045; 99212 ==

== ENCOUNTER 2023-04-05 10:08 | Outpatient (AMB) | payer MEDICARE, MEDICAID, SELFPAY ==
[2023-04-05 10:13] VITALS: BMI 32.4
--- NOTE | 2023-04-05 10:13 | MHC.OFFVIS ---
Intake Vital Signs 04/05/23 10:13 Height 5 ft 7 in Weight 207 lb BMI 32.4 Intake Visit Reasons: Follow up wound check Intake Note: follow up wound check Left Transmet amp 05/20/22, left transmet incision is completely healed, has a wound on his heal. Has wound on Right foot, surgically debrided by general surgery. [facility]. Was due for ARterial US but was in the hospital multiple times over past few months Accompanied by: ambulance drivers Allergies No Known Allergies [No Known Allergies*] Allergy (Verified 04/05/23 10:26) HPI Follow up wound check HPI Details Pleasant 57-year-old gentleman presents for follow-up regarding nonhealing bilateral heel ulcerations. He had actually followed us for left transmetatarsal amputation. Appears to be doing relatively well. He has been following up with General surgery. He is now for routine check. [facility] Medical History Acute on chronic anemia Anemia Chronic anemia Chronic kidney disease, stage 3 CKD (chronic kidney disease) Colon cancer Colonic mass Diabetes Diabetes type 2, controlled Diabetic infection of left foot Eschar of heel Fever of unknown origin History of prostate cancer Migraine Morbid obesity Opioid use disorder Osteomyelitis PAD (peripheral artery disease) Sleep apnea Surgical History Hx of colectomy (01/20/23) S/P transmetatarsal amputation of foot Family History Mother No pertinent family history Social History Household Members: None Housing: Assisted Living Facility Do you presently have visiting nurse or other home services: Yes Alcohol intake: never Patient Tobacco Use Status: Never used Tobacco Substance Use Type: Opiates Advance Directives Date on File: 01/11/23 service: No Current occupational status: disabled Review of Systems Const All systems reviewed & are unremarkable except as noted in HPI and below Reports no additional complaints ENT Reports Normal hearing present Card Denies chest pain, Denies chest pain at rest, Denies chest pain with activity and Denies pedal edema Resp Denies cough GI Denies abdominal pain Musc Denies abnormal gait, Denies muscle cramps and Denies radiating pain into limb Skin/Breast Denies skin ulcer and Denies wounds Neuro Reports Normal hearing present and Denies abnormal gait Psych Reports no additional complaints Physical Exam Vital Signs: BMI result Body Mass Index 32.4 Const General: cooperative, healthy appearing and comfortable Orientation/consciousness: oriented to person, oriented to place and oriented to time HEENT Head: Yes normal to inspection Neck Neck: Yes normal visual inspection Carotids: no bruits Chest Chest palpation & inspection: normal inspection of the chest Resp Effort & Inspection: normal respiratory effort and able to speak in complete sentences Auscultation: clear to auscultation bilaterally, no crackles, no rales, no rhonchi and no wheezes Cardio Other: Bilateral DP signal Rate: regular rate Rhythm: regular rhythm Heart sounds: S1 normal heart sound present and S2 normal heart sound present Bruits: no carotid bruits Peripheral pulses: Peripheral pulses 2+ throughout GI Inspection: Yes normal to inspection Skin Other: Bilateral heel ulcerations with good granulation base Wounds: no wounds Hair: normal Neuro General: oriented to person, oriented to place and oriented to time Cranial nerves: Yes CN's II-XII intact bilaterally and Yes Normal hearing present Cognition (Neuro): normal cognition Motor exam (neuro): 5/5 motor strength present throughout Extrem Other: venous exam: No significant superficial varicosities or spider telangiectasias, minimal edema General: No clubbing, No cyanosis and No edema Psych Appearance: grossly normal Mental Status: mental status grossly normal Speech and movement: Normal speech and movement present Assessment & Plan Assessment & Plan (1) PAD (peripheral artery disease): Comment: 05/18/2022 - left anterior tibial plasty Code(s): I73.9 - Peripheral vascular disease, unspecified Plan: In short patient has a history of peripheral vascular disease. He has nonhealing bilateral heel ulcers which may be more pressure related. I have taken the liberty of ordering noninvasive arterial testing and we will follow-up with that. He does continue to follow-up with General surgery as well. We will continue to monitor his status with you. Thank you for allowing us to assist in his care. Medications: Discontinued insulin glargine 70 units (0.7 mL) subcut DAILY 10 mL 0RF Coding Level of Care Code Est Pt Level 3 (96210) Diagnoses PAD (peripheral artery disease) I73.9
== END 2023-04-05 10:38 | disposition home or self-care (01) ==
PROVIDERS: PCP Family Medicine Geriatric Medicine; Visit Provider Surgery Vascular Surgery
DX: I73.9 Peripheral vascular disease, unspecified (principal)
CPT/HCPCS: 99213

== ENCOUNTER → 2023-04-05 10:08 | Outpatient (BNVA) | payer MEDICARE, MEDICAID, SELFPAY | PROVIDERS: PCP Family Medicine Geriatric Medicine; Visit Provider Surgery Vascular Surgery | DX: I73.9 Peripheral vascular disease, unspecified (principal); L97.429 Non-pressure chronic ulcer of left heel and midfoot with unspecified severity; L97.419 Non-pressure chronic ulcer of right heel and midfoot with unspecified severity | CPT/HCPCS: 99212 ==

== ENCOUNTER 2023-04-06 13:02 | Outpatient (AMB) | payer MEDICARE, MEDICAID, SELFPAY ==
--- NOTE | 2023-04-06 13:09 | MHC.OFFVIS ---
Intake Vital Signs 04/06/23 13:10 Height 5 ft 7 in BP 110/60 Blood Pressure Location Lt brachial Position Sitting Pulse 98 Pulse Source Pulse Oximeter Pulse Oximetry (%) 99 Intake Visit Reasons: Ref.[facility],Osteomyelitis Allergies No Known Allergies [No Known Allergies*] Allergy (Verified 04/06/23 13:10) HPI Ref.[facility],Osteomyelitis HPI Location He is taking Vancomycin and is done on 04/27 ,six weeks. HPI Comments History of Present Illness Details He is taking Vancomycin for possible enterococcus or MRSA and is done on 04/27. Area has been healing and he is walking with a walker. He comes today on stretcher. The Vancomycin levels are pending and getting sent. He has no rash or diarrhea. [facility] Medical History Acute on chronic anemia Anemia Chronic anemia Chronic kidney disease, stage 3 CKD (chronic kidney disease) Colon cancer Colonic mass Diabetes Diabetes type 2, controlled Diabetic infection of left foot Eschar of heel Fever of unknown origin History of prostate cancer Migraine Morbid obesity Opioid use disorder Osteomyelitis PAD (peripheral artery disease) Sleep apnea Surgical History Hx of colectomy (01/20/23) S/P transmetatarsal amputation of foot Family History Mother No pertinent family history Social History Household Members: None Housing: Assisted Living Facility Do you presently have visiting nurse or other home services: Yes Alcohol intake: never Patient Tobacco Use Status: Never used Tobacco Substance Use Type: Opiates Advance Directives Date on File: 01/11/23 service: No Current occupational status: disabled Review of Systems Const All systems reviewed & are unremarkable except as noted in HPI and below Physical Exam Vital Signs: Last Vital Signs Pulse 98 04/06/23 13:10 BP 110/60 04/06/23 13:10 Pulse Ox 99 04/06/23 13:10 Const Other: General: cooperative Orientation/consciousness: patient oriented x3 HEENT Head: Yes normal to inspection Mouth: Normal oral and palatal mucosa present Eyes General: appearance normal, both eyes and all related structures Pupils: Equal, round and reactive pupils present Resp Effort & Inspection: normal respiratory effort Cardio Rate: regular rate Rhythm: regular rhythm GI Palpation (GI): Soft to palpation and nontender General: Yes no CVA tenderness Back/Spine/Pelvis Back: no CVA tenderness Skin General skin exam: no rashes or lesions noted Neuro General: patient oriented x3 Cranial nerves: Yes CN's II-XII intact bilaterally and Yes Equal, round and reactive pupils present Extrem Other: right foot seems to have filling in granulation tissue,left unremarkable General: Yes normal to inspection Psych Appearance: grossly normal Assessment & Plan Assessment & Plan (1) Eschar of heel: Comment: He has improving diabetic foot infection at this time. Code(s): R23.4 - Changes in skin texture Plan: Finish IV Vancomycin on 04/27/2023 and pull PICC line. Start po Doxycycline 100 mg bid after that for a month and possibly one refill. See in one month. Continue weekly creatinine and Vancomycin level. (2) Diabetic foot infection: Code(s): E11.628 - Type 2 diabetes mellitus with other skin complications; L08.9 - Local infection of the skin and subcutaneous tissue, unspecified Orders: Orders IR cvc remove any age Today E11.628 - Type 2 diabetes mellitus with other skin complications, L08.9 - Local infection of the skin and subcutaneous tissue, unspecified Medications: New doxycycline hyclate 100 mg PO BID 60 tabs 1RF 30 days Discontinued insulin glargine 70 units (0.7 mL) subcut DAILY 10 mL 0RF Coding Level of Care Code Est Pt Level 3 (14011) Diagnoses Eschar of heel R23.4 Diabetic foot infection E11.628; L08.9
[2023-04-06 13:10] VITALS: BP 110/60; PULSE 98; O2SAT 99
== END 2023-04-06 14:03 | disposition home or self-care (01) ==
LOC: HO.HID 13:02
PROVIDERS: PCP Family Medicine Geriatric Medicine; Visit Provider Internal Medicine
DX: R23.4 Changes in skin texture (principal); E11.628 Type 2 diabetes mellitus with other skin complications; L08.9 Local infection of the skin and subcutaneous tissue, unspecified
CPT/HCPCS: 99213

== ENCOUNTER → 2023-04-06 13:02 | Outpatient (BNVA) | payer MEDICARE, MEDICAID, SELFPAY | PROVIDERS: PCP Family Medicine Geriatric Medicine; Visit Provider Internal Medicine | DX: R23.4 Changes in skin texture (principal); E11.628 Type 2 diabetes mellitus with other skin complications; L08.9 Local infection of the skin and subcutaneous tissue, unspecified | CPT/HCPCS: 99212 ==

== ENCOUNTER 2023-04-26 12:56 | Inpatient (IN) | payer MEDICARE, MEDICAID, SELFPAY ==
--- NOTE | ~2023-04-26 | XR_ITS ---
EXAMINATION: XR FOOT, RIGHT CLINICAL INFORMATION: Chronic heel wound COMPARISON: 03/18/2023 CT, 03/16/2023 radiograph TECHNIQUE: AP, lateral, and oblique views of the right foot. FINDINGS: In comparison with 03/18/2023 CT, increasing soft tissue tissue swelling and air droplets identified plantar aspect of the foot. Air droplets also seen about the medial and lateral aspects of the proximal foot. Heel soft tissue defect identified. Inferior posterior calcaneal cortices are now ill-defined, bony destructive process is suspected. Achilles calcifications and posterior ankle soft tissue prominence again seen. Vascular calcifications XR/XR foot RT min 3V IMPRESSION: Interval calcaneal osteomyelitis and increasing soft tissue air suspicious for gas-forming organism.
[2023-04-26 13:24] VITALS: BP 131/77; PULSE 83; O2SAT 96
[2023-04-26 13:36] VITALS: BP 133/69; PULSE 85; RESP 18; TEMP 36.8; BMI 34.1
--- NOTE | 2023-04-26 13:55 | ED_ITS ---
HPI - General Adult General Chief complaint: Extremity Injury, Lower Stated complaint: ABNORMAL LABS PER EMS Time Seen by Provider: 04/26/23 13:54 Source: patient, EMS and old records reviewed Mode of arrival: EMS Limitations: no limitations History of Present Illness HPI narrative: 57 yo male with history of DM, anemia, obesity, CKD, s/p left TMA May 2022, opioid use disorder on methadone, nonhealing diabetic wound of the right heel currently in IV vancomycin for osteomyelitis of the right heel (recent admission here 03/16/23-03/22/23 for the same) who presents back to the ER from [facility] for concerns of worsening heel wound. Staff was unable to get ahold of ID so they sent him to the ER. His ESR was 60 today (coming down) and he had a WBC 15.3K. H/H 6.9/22.1. No reported fevers but he has had increased drainage from the wound per patient. He states he saw Dr. Brown recently and there was no immediate plan for surgery. He denies any fever or chills. The pain is the same. MD complaint: worsening right heel wound Location: right and lower extremity Radiation: proximal Severity: moderate Quality: aching Pain Consistency: intermittent Relieving factors: none Exacerbating factors: none Associated symptoms: denies other symptoms Treatments prior to arrival: none Related Data Home Medications Medication Instructions Recorded Confirmed clopidogrel 75 mg tablet 1 tab PO DAILY 06/17/22 04/04/23 methadone 10 mg/mL oral concentrate 45 mg PO DAILY 06/17/22 04/04/23 tamsulosin 0.4 mg capsule 1 cap PO BEDTIME 06/17/22 04/04/23 atorvastatin 10 mg tablet 10 mg PO BEDTIME 01/11/23 04/04/23 citalopram 20 mg tablet 20 mg PO DAILY 01/11/23 04/04/23 insulin glargine 100 unit/mL 5 unit subcut BEDTIME 01/11/23 04/04/23 subcutaneous solution (Lantus U-100 Insulin) naloxone 4 mg/actuation nasal 4 mg intranasal Q3M PRN Opioid 01/11/23 04/04/23 spray (Narcan) Overdose omeprazole 20 mg capsule,delayed 20 mg PO DAILY@0630 01/11/23 04/04/23 release acetaminophen 325 mg tablet 650 mg PO Q4H PRN Fever Or Pain 03/16/23 04/04/23 acetaminophen 325 mg tablet 975 mg PO Q8H PRN Pain 03/16/23 04/04/23 aluminum-mag hydroxide-simethicone 15 ml PO Q6H PRN Dyspepsia 03/16/23 04/04/23 200 mg-200 mg-20 mg/5 mL oral susp aspirin 81 mg chewable tablet 81 mg PO DAILY 03/16/23 04/04/23 bisacodyl 10 mg rectal suppository 10 mg HI DAILY PRN Constipation 03/16/23 04/04/23 ferrous sulfate 325 mg (65 mg 325 mg PO BID 03/16/23 04/04/23 iron) tablet hydroxyzine HCl 10 mg tablet 10 mg PO Q6H PRN Anxiety 03/16/23 04/04/23 insulin lispro 100 unit/mL 1 sliding scale dose subcut 03/16/23 04/04/23 subcutaneous solution USEASDIRECTD loperamide 2 mg tablet (Imodium 2 mg PO Q4H PRN Loose Stool 03/16/23 04/04/23 A-D) nifedipine 60 mg tablet,extended 60 mg PO DAILY 03/16/23 04/04/23 release 24 hr ondansetron HCl 4 mg tablet 4 mg PO Q8H PRN Nausea 03/16/23 04/04/23 sodium phosphates 19 gram-7 118 ml HI DAILY PRN Constipation 03/16/23 04/04/23 gram/118 mL enema (Fleet Enema) lisinopril 20 mg tablet 20 mg PO DAILY 04/05/23 metformin 1,000 mg tablet mg PO 04/05/23 metoprolol succinate 50 mg mg PO 04/05/23 tablet,extended release 24 hr nifedipine 30 mg tablet,extended mg PO 04/05/23 release pantoprazole 40 mg tablet,delayed mg PO 04/05/23 release tamsulosin 0.4 mg capsule (Flomax) 0.4 mg PO DAILY 04/06/23 Previous Rx's Medication Instructions Recorded polyethylene glycol 3350 17 17 g PO DAILY PRN constipation 01/24/23 gram/dose oral powder (Miralax) #119 grams oxycodone 5 mg tablet 5 mg PO Q4H PRN Pain, 03/22/23 Moderate(Pain Scale 4-6) #15 tabs doxycycline hyclate 100 mg tablet 100 mg PO BID 30 days #60 tabs 04/06/23 Allergies Allergy/AdvReac Type Severity Reaction Status Date / Time No Known Allergies Allergy Verified 04/06/23 13:10 [No Known Allergies*] Review of Systems 2 Review of Systems: Yes all other systems are reviewed and are negative [facility] Past Medical History Medical History Acute on chronic anemia Anemia Chronic anemia Chronic kidney disease, stage 3 CKD (chronic kidney disease) Colon cancer Colonic mass Diabetes Diabetes type 2, controlled Diabetic infection of left foot Eschar of heel Fever of unknown origin History of prostate cancer Migraine Morbid obesity Opioid use disorder Osteomyelitis PAD (peripheral artery disease) Sleep apnea Surgical History Hx of colectomy (01/20/23) S/P transmetatarsal amputation of foot Family History Family History Mother No pertinent family history Social History Social History Household Members: None Housing: Assisted Living Facility Do you presently have visiting nurse or other home services: Yes Alcohol intake: never Patient Tobacco Use Status: Never used Tobacco Substance Use Type: Opiates Advance Directives: Yes Advance Directives on File: Yes Advance Directives Date on File: 01/11/23 service: No Current occupational status: disabled Physical Exam ED Vital Signs: Vital Signs - 24 hr 04/26/23 13:36 04/26/23 16:14 Temperature 98.2 F 98.9 F Pulse Rate 85 86 Respiratory Rate 18 18 Blood Pressure 133/69 108/52 L Pulse Oximetry 98 Oxygen Delivery Method Room Air Room Air BMI result Body Mass Index 34.1 Appearance: Alert. Oriented X3. Pale. No acute distress. Head: normocephalic, atraumatic. Eyes: Pupils equal, round and reactive to light. ENT: Pharynx normal. No tonsillar swelling or exudate. Neck: Normal inspection. Neck supple. CVS: Normal heart rate and rhythm. Pulses normal. Respiratory: No respiratory distress. Breath sounds normal. Abdomen: Soft and nontender. +BS x4 Skin: Skin warm and dry. Normal skin color. Normal skin turgor. No rashes. Extremities: s/p left TMA. right heel with extensive wound, sloughing of black and yellow material, active drainage. see photo Neuro/psych: Oriented X 3. No motor deficit. No sensory deficit. CN II-XII intact. Normal speech and cognition. Medications Administered Discontinued Medications Generic Name Dose Route Start Last Admin Trade Name Freq PRN Reason Stop Dose Admin Piperacillin Sod/Tazobactam 50 mls @ 100 mls/hr 04/26/23 15:44 04/26/23 16:10 Sod 3.375 gm/ Sodium Chloride IV 04/26/23 16:13 100 mls/hr ONCE ONE Administration Medical Decision Making Medical Decision Making [facility] Narrative: 57 yo male with history of DM, anemia, obesity, CKD, s/p left TMA May 2022, opioid use disorder on methadone, nonhealing diabetic wound of the right heel currently in IV vancomycin for osteomyelitis of the right heel (recent admission here 03/16/23-03/22/23 for the same) who presents back to the ER from [facility] for concerns of worsening heel wound. Also acute on chronic anemia on labs today. Case d/w Dr. Brown - recommending admission and amputation. H/H 6.2/.6. similar to prior in March when he required transfusion. likely anemia of chronci disease. denies signs and symptoms of acute blood loss. declining rectal exam at this time Due for vanco at 8pm per pharmacy Zosyn ordered Consented for RBC transfuion Will admit for further managmement. patient updated on plan of care Differential Diagnosis Differential Diagnoses: The differential diagnosis associated with the presentation includes worsening osteomyelitis, abscess, cellulitis, sepsis, acute blood loss anemia, anemia of chronic disease Admission/Observation Consideration of admission/observation: Escalation of care including admission/observation considered Consult Healthcare Provider Management of the patient was discussed with: Technician Chemical Cle[employer] Dr. Brown recommending admission and plan for amputation Lab Data [facility] Lab Attestation statement: I reviewed the patient's lab results. acute on chronic anemia 04/26/23 15:30 04/26/23 15:30 Independent Interpretation Interpretation: soft tissue air apprecaited - agree w/ radiology read Radiology Impression Discussion of test interpretation with radiology: I have reviewed the radiologist's reading. Radiologist Impression: EXAMINATION: XR FOOT, RIGHT CLINICAL INFORMATION: Chronic heel wound COMPARISON: 03/18/2023 CT, 03/16/2023 radiograph TECHNIQUE: AP, lateral, and oblique views of the right foot. FINDINGS: In comparison with 03/18/2023 CT, increasing soft tissue tissue swelling and air droplets identified plantar aspect of the foot. Air droplets also seen about the medial and lateral aspects of the proximal foot. Heel soft tissue defect identified. Inferior posterior calcaneal cortices are now ill-defined, bony destructive process is suspected. Achilles calcifications and posterior ankle soft tissue prominence again seen. Vascular calcifications XR/XR foot RT min 3V IMPRESSION: Interval calcaneal osteomyelitis and increasing soft tissue air suspicious for gas-forming organism. Independent Historian Clinical information obtained from an independent historian. History obtained from or confirmed by: EMS External Record Review External record reviewed: Inpatient record, Outpatient record, Prior outpatient labs and Prior outpatient radiology Prescription Management I considered prescription management with: Pain Medication and Antibiotic Chronic Conditions Patient?s care impacted by: Diabetes Critical Care Time Critical Care Time Critical Care Time: Yes Total Critical Care Time: 42 Attestation: I have personally provided critical care time exclusive of time spent on separately billable procedures. Time includes review of lab data, radiology results, discussion with consultants, and monitoring for potential decompensation. Intervention performed as documented. Discharge Plan Discharge Clinical Impression: Acute on chronic anemia Osteomyelitis Qualifiers: Osteomyelitis type: other Osteomyelitis location: foot Laterality: right Q ualified Code(s): M86.8X7 - Other osteomyelitis, ankle and foot Prescriptions: No Action clopidogrel 75 mg tablet 1 tab PO DAILY tamsulosin 0.4 mg capsule 1 cap PO BEDTIME methadone 10 mg/mL Concentrate 45 mg PO DAILY atorvastatin 10 mg tablet 10 mg PO BEDTIME citalopram 20 mg tablet 20 mg PO DAILY omeprazole 20 mg Capsule,Delayed Release(Dr/Ec) 20 mg PO DAILY@0630 naloxone [Narcan] 4 mg/actuation [place],Non-Aerosol 4 mg INTRANASAL Q3M PRN (Reason: Opioid Overdose) Rx Instructions: spray 1 dose into ONE nostril; alternate nostrils w each dose until help arrives insulin glargine [Lantus U-100 Insulin] 100 unit/mL solution 5 unit subcut BEDTIME polyethylene glycol 3350 [Miralax] 17 gram/dose powder 17 g PO DAILY PRN (Reason: constipation) Qty: 119 0RF acetaminophen 325 mg Tablet 650 mg PO Q4H PRN (Reason: Fever Or Pain) acetaminophen 325 mg Tablet 975 mg PO Q8H PRN (Reason: Pain) loperamide [Imodium A-D] 2 mg Tablet 2 mg PO Q4H PRN (Reason: Loose Stool) Rx Instructions: administer after each loose stool until symptoms controlled; do not exceed 8 mg per 24 hrs bisacodyl 10 mg Suppository 10 mg HI DAILY PRN (Reason: Constipation) ferrous sulfate 325 mg (65 mg iron) Tablet 325 mg PO BID Fleet Enema 19-7 gram/118 mL Enema 118 ml HI DAILY PRN (Reason: Constipation) aspirin 81 mg Tablet,Chewable 81 mg PO DAILY alum-mag hydroxide-simeth 200-200-20 mg/5 mL Suspension 15 ml PO Q6H PRN (Reason: Dyspepsia) Rx Instructions: administer between meals and at bedtime insulin lispro 100 unit/mL Solution 1 sliding scale dose SUBCUT USEASDIRECTD Protocol: Insulin Correction Scale Less than or equal to 110 ---- Give (units): 0 111 to 150 Give (units): 0 151 to 200 Give (units): 2 201 to 250 Give (units): 4 251 to 300 Give (units): 6 301 to 350 Give (units): 8 Greater than 350 Give (units): 10 Call MD if Blood Glucose > : 350 hydroxyzine HCl 10 mg Tablet 10 mg PO Q6H PRN (Reason: Anxiety) ondansetron HCl 4 mg Tablet 4 mg PO Q8H PRN (Reason: Nausea) nifedipine 60 mg Tablet Extended Release 24hr 60 mg PO DAILY oxycodone 5 mg Tablet 5 mg PO Q4H PRN (Reason: Pain, Moderate(Pain Scale 4-6)) Qty: 15 0RF Rx Instructions: Partial Fill upon patient request. metformin 1,000 mg tablet PO nifedipine 30 mg tablet extended release PO pantoprazole 40 mg tablet,delayed release (DR/EC) PO lisinopril 20 mg tablet 20 mg PO DAILY metoprolol succinate 50 mg tablet extended release 24 hr PO tamsulosin [Flomax] 0.4 mg capsule 0.4 mg PO DAILY doxycycline hyclate 100 mg tablet 100 mg PO BID 30 Days Qty: 60 1RF
--- NOTE | 2023-04-26 14:03 | PC.NURSE ---
spoke w RN at [facility], pt due to d/c IV vanco for osteomyelitis tomorrow, provider at facility tried to get in touch w Dr Brown regarding cont'd plan of care and has been unable to get response from provider. pt sent to ED for eval of worsening bilateral heel wounds.
[2023-04-26 16:06] LABS: MANUAL DIFF FLAG NO
[2023-04-26] MEDS: Piperacillin Sodium/Tazobactam 3.375 GM in 0.9 % Sodium Chloride 50 ML IV (16:10)
[2023-04-26 16:11] LABS: Basophils Absolute Auto 0.1 X10*3/uL (0.0-0.2); Basophils Percent Auto 0.4 % (0-2); Eosinophils Absolute Auto 0.2 X10*3/uL (0.0-0.4); Eosinophils Percent Auto 1.2 % (0-4); Imm Gran Abs Auto 0.05 X10*3/uL (0.00-0.03); Imm Gran Pct Auto 0.4 % (0.0-0.4); Lymphocytes Absolute Auto 1.5 X10*3/uL (1.2-4.9); Lymphocytes Percent Auto 10.2 % (20-40); Mean Corpuscular HGB Conc 31.6 g/dl (31.0-36.0); Mean Corpuscular Hemoglobin 25.8 pg (27.0-33.0); Mean Corpuscular Volume 81.7 fL (80.0-98.0); Mean Platelet Volume 10.2 fL (9.4-12.4); Monocytes Absolute Auto 0.9 X10*3/uL (0.1-1.2); Monocytes Percent Auto 6.2 % (2-11); Neutrophils Absolute Auto 11.7 x10*3/uL (2.0-8.3); Neutrophils Percent Auto 81.6 % (45-73); Platelet Count 335 X10*3/uL (160-400); Red Cell Distribution Width 16.6 % (11.0-16.0); White Blood Count 14.3 X10*3/uL (4.8-10.8)
[2023-04-26 16:14] VITALS: BP 108/52; PULSE 86; RESP 18; TEMP 37.2; O2SAT 98
[2023-04-26 16:16] LABS: Hematocrit 19.6 % (42.0-52.0); Hemoglobin 6.2 g/dl (14.0-18.0)
--- NOTE | 2023-04-26 16:24 | PM.IMHP ---
History of Present Illness Date of Service: 04/26/23 Attending physician on admission: Da Hood Chief Complaint: foot infection 57-year-old male with history of chronic normocytic anemia, insulin-dependent type 2 diabetes, chronic kidney disease stage III, history of opiate use disorder on methadone patient denies recent use, peripheral artery disease on DAPT, with history of osteomyelitis s/p left TMA 05/29 and recent admission from 03/16- for osteomyelitis R heel, discharged on IV vanco 1 g with last dose scheduled for 04/27 advised to follow-up with Dr. Brown. He recently saw Dr. Brown who felt the wounds of the bilateral heels were more pressure r/t and arterial imaging was ordered but not yet performed. Unfortuatnely, the patient reports the wound of the right heel had been improving but about 2 weeks ago developed a foul odor, purulent drainage, in significant pain despite compliance with vanco. He does also report some vertigo like symptoms following vanco administration. On arrival, vital stable. He is afebrile, no hypotension. There is a leukocytosis of 14.3. Has acute on chronic normocytic anemia with H/H 6.2/19.6%. Renal function normal, electrolyte levels normal. CRP 18.38, ESR pending. Albumin 2.9. X-ray of the right foot showed interval calcaneal osteomyelitis and increasing soft tissue air suspicious for gas-forming organism. ED provider did discuss case with Dr. Brown who is recommending admission and amputation. In the ED, given dose of IV Zosyn and ordered for 1 unit packed red blood cells. Review of Systems Review of Systems: General: No fevers, malaise, unintentional weight loss Cardiovascular: No chest pain, palpitations, or leg edema Respiratory: No shortness of breath, wheezing, cough GI: No abdominal pain, nausea, vomiting, diarrhea, constipation, melena, hematochezia : No dysuria, hematuria, increased urinary frequency, decreased urinary output MSK: No myalgia, back pain. +wound right heel Neuro: No headaches, weakness, paresthesias Skin: No rashes or lesions [facility] Medical History Eschar of heel Chronic kidney disease, stage 3 Acute on chronic anemia Morbid obesity Sleep apnea Colon cancer Colonic mass Migraine Anemia History of prostate cancer Fever of unknown origin Chronic anemia CKD (chronic kidney disease) Osteomyelitis Diabetes type 2, controlled PAD (peripheral artery disease) Diabetic infection of left foot Diabetes Opioid use disorder Family History Mother No pertinent family history Surgical History Hx of colectomy (01/20/23) S/P transmetatarsal amputation of foot Social History Household Members: Spouse Household Members Other:: 2 Housing: Apartment Do you presently have visiting nurse or other home services: Yes Alcohol intake: never Patient Tobacco Use Status: Never used Tobacco Substance Use Type: Opiates Advance Directives Date on File: 01/11/23 service: No Current occupational status: disabled Meds Allergies Allergy/AdvReac Type Severity Reaction Status Date / Time No Known Allergies Allergy Verified 04/06/23 13:10 [No Known Allergies*] Active Medications: Current Medications Sodium Chloride (Ns) 100 mls @ 100 mls/hr IV ONCE ONE Stop: 04/26/23 17:17 Home Medications Medication Instructions Recorded Confirmed Last Taken Type clopidogrel 75 mg tablet 1 tab PO DAILY 06/17/22 04/26/23 01/24/23 History methadone 10 mg/mL oral concentrate 30 mg PO DAILY 06/17/22 04/26/23 04/26/23 09:28 History tamsulosin 0.4 mg capsule 1 cap PO BEDTIME 06/17/22 04/26/23 01/24/23 History atorvastatin 10 mg tablet 10 mg PO BEDTIME 01/11/23 04/26/23 01/24/23 History citalopram 20 mg tablet 20 mg PO DAILY 01/11/23 04/26/23 01/24/23 History insulin glargine 100 unit/mL 5 unit subcut BEDTIME 01/11/23 04/26/23 01/24/23 History subcutaneous solution (Lantus U-100 Insulin) omeprazole 20 mg capsule,delayed 20 mg PO DAILY@0630 01/11/23 04/26/23 01/24/23 History release acetaminophen 325 mg tablet 650 mg PO Q4H PRN Fever 03/16/23 04/26/23 Unknown History acetaminophen 325 mg tablet 975 mg PO Q8H PRN Pain 03/16/23 04/26/23 Unknown History aluminum-mag hydroxide-simethicone 15 ml PO Q6H PRN Dyspepsia 03/16/23 04/26/23 Unknown History 200 mg-200 mg-20 mg/5 mL oral susp aspirin 81 mg chewable tablet 81 mg PO DAILY 03/16/23 04/26/23 Unknown History bisacodyl 10 mg rectal suppository 10 mg ME DAILY PRN Constipation 03/16/23 04/26/23 Unknown History ferrous sulfate 325 mg (65 mg 325 mg PO BID 03/16/23 04/26/23 Unknown History iron) tablet hydroxyzine HCl 10 mg tablet 10 mg PO Q6H PRN Anxiety 03/16/23 04/26/23 Unknown History insulin lispro 100 unit/mL 1 sliding scale dose subcut 03/16/23 04/26/23 Unknown History subcutaneous solution USEASDIRECTD loperamide 2 mg tablet (Imodium 2 mg PO Q4H PRN Loose Stool 03/16/23 04/26/23 Unknown History A-D) nifedipine 60 mg tablet,extended 60 mg PO DAILY 03/16/23 04/26/23 Unknown History release 24 hr ondansetron HCl 4 mg tablet 4 mg PO Q8H PRN Nausea 03/16/23 04/26/23 Unknown History sodium phosphates 19 gram-7 118 ml ME DAILY PRN Constipation 03/16/23 04/26/23 Unknown History gram/118 mL enema (Fleet Enema) collagenase clostridium histo. 250 1 appl topical BID 04/26/23 04/26/23 Unknown History unit/gram topical ointment (Santyl) sodium hypochlorite 0.25 % 1 irrig topical BID 04/26/23 04/26/23 Unknown History solution (Dakin's Solution) vancomycin 750 mg/250 mL in 0.9 % 750 mg IV Q24H 04/26/23 04/26/23 04/25/23 20:00 History sodium chloride intravenous solution Physical Exam Vital Signs and Narrative: Vital Signs: Last Vital Signs Temp 98.9 F 04/26/23 16:14 Pulse 86 04/26/23 16:14 Resp 18 04/26/23 16:14 BP 108/52 L 04/26/23 16:14 Pulse Ox 98 04/26/23 16:14 O2 Del Method Room Air 04/26/23 16:14 BMI result Body Mass Index 34.1 Constitutional - Awake and Alert, No apparent distress Eyes - PERRLA, EOMI Cardiovascular - S1S2, RRR, No edema Respiratory - Normal lung expansion, Normal respiratory effort, No respiratory distress, CTA bilaterally Extremities - no calf tenderness bilaterally, no swelling Musculoskeletal - Left TMA with clean stage 2 ulceration left heel without surrounding erythema or purulent drainage. Unstageable wound on the plantar service and posterior calcaneus with slough, eschar, purulent drainage, and foul odor. see photo Skin - Warm/Dry Neurological - Alert & oriented x3 Psychological - Appropriate affect Results Labs 04/26/23 22:02 04/27/23 06:18 Labs: Laboratory Results - last 24 hr 04/26/23 15:30 MCV 81.7 MCH 25.8 L MCHC 31.6 RDW 16.6 H Plt Count 335 MPV 10.2 Immature Gran % (Auto) 0.4 Neut % (Auto) 81.6 H Lymph % (Auto) 10.[address] [place] % (Auto) 6.2 Eos % (Auto) 1.2 Baso % (Auto) 0.4 Lymph # (Auto) 1.5 [place] # (Auto) 0.9 Eos # (Auto) 0.2 Baso # (Auto) 0.1 Abs Immat Gran (auto) 0.05 H Absolute Neuts (auto) 11.7 H Absolute Nucleated RBC 0.000 Nucleated RBC % (auto) 0.0 Imaging Radiologist's Impressions: Impressions Foot X-Ray 04/26/23 15:30 IMPRESSION: Interval calcaneal osteomyelitis and increasing soft tissue air suspicious for gas-forming organism. Assessment and Plan (1) Acute on chronic anemia: Status: Acute (2) Osteomyelitis: Qualifiers: Laterality: right Osteomyelitis location: foot Osteomyelitis type: other Qualified Code(s): M86.8X7 - Other osteomyelitis, ankle and foot Status: Acute (3) Eschar of heel: Status: Acute (4) Diabetic foot infection: Status: Acute Plan 57-year-old male with history of chronic normocytic anemia, insulin-dependent type 2 diabetes, chronic kidney disease stage III, history of opiate use disorder on methadone patient denies recent use, peripheral artery disease on DAPT, with history of osteomyelitis s/p left TMA 05/29 and recent admission from 03/16- for osteomyelitis R heel, discharged on IV vanco 1 g with last dose scheduled for 04/27 admitted for non healing ulceration of the right calcaneus with interval osteomyelitis. # nonhealing unstageable ulceration of the right calcaneus with interval osteomyelitis -x-ray right foot shows interval calcaneal osteomyelitis and increasing soft tissue air suspicious for gas-forming organism -continue IV vancomycin and add IV Zosyn -vascular surgery consult -Infectious Disease consult -certified massage therapist -leukocytosis 14.3, no other sirs criteria. No sepsis -Hold DAPT for now in case of surgery -follow CBC, blood cultures # acute on chronic- anemia of chronic disease -transfuse 1 unit packed red blood cells in the ED -follow CBC @ 21:00 then a.m. # insulin-dependent type 2 diabetes -POC glucose -diabetic diet -Humalog on sliding scale -continue basal insulin -hold oral antihyperglycemics # CKD stage 3 -renal function baseline # opioid dependence -continue methadone # BPH -Flomax # hypertension -blood pressure is controlled -continue home antihypertensive agents DVT prophylaxis-heparin Full code Patient requires inpatient stay of at least 2 midnights for management of nonhealing ulceration of the right calcaneus with interval osteomyelitis likely requiring amputation with expert consultation Time Spent With Patient Time: Total time managing care of this patient today ____ minutes. Quality Stroke Does the patient have a stroke diagnosis?: No VTE Prior VTE?: No VTE Risk Level:: Medical - moderate - high VTE Device Contraindication: Treatment Not Indicated VTE Drug Contraindication: N/A - Med Ordered
[2023-04-26 16:28] LABS: Alanine Aminotransferase 13 U/L (0-40); Albumin Level 2.9 g/dL (3.5-5.0); Alkaline Phosphatase 107 U/L (39-117); Anion Gap 10 (12-20); Aspartate Amino Transferase 11 U/L (5-37); Bilirubin Direct < 0.2 mg/dL (0.0-0.5); Bilirubin Total 0.2 mg/dL (0.0-1.0); Blood Urea Nitrogen 21 mg/dL (9-16); C Reactive Protein 18.38 mg/dL (< or = 0.50); Carbon Dioxide 25 mmol/L (22-29); Chloride 103 mmol/L (96-108); Creatinine Clr Calc Pharmacy 82.9; Estimated Glomerular Filt Rate > 60; Glucose Random 180 mg/dL (60-115); Magnesium 1.8 mg/dL (1.6-2.6); Potassium 4.3 mmol/L (3.3-5.1); Sodium 134 mmol/L (135-145); Total Protein 7.1 g/dL (6.5-8.0)
--- NOTE | 2023-04-26 16:42 | PHA.MEDREC ---
Pharmacy Consult ? Medication Reconciliation Pharmacy has completed the medication reconciliation. Received list fron [place] [facility]. Called to confirm last dose vancomycin 750 mg q24h on 04/26 @ 1999. Martinez NdiayeD
--- NOTE | 2023-04-26 16:43 | HE.PHANOTE ---
Methadone Verification Patient last received methadone 30 mg on 04/26/23 @ 0984 at [facility]. Spoke with Sheron. Corinne Ramírez, PharmD
[2023-04-26 17:53] VITALS: BP 103/58; PULSE 93; RESP 18; TEMP 36.8
[2023-04-26 18:12] VITALS: BP 121/62; PULSE 91; RESP 16; TEMP 36.7
[2023-04-26] MEDS: Morphine Sulfate 4 MG/ML CARTRIDGE IVPUSH (18:24)
[2023-04-26] MEDS: Heparin Sodium,Porcine 5,000 UNIT/ML VIAL 5000 UNIT SUBCUT (18:25)
[2023-04-26 18:53] LABS: Vancomycin Trough 11.9 mcg/mL (10.0-20.0)
--- NOTE | 2023-04-26 19:00 | PHA.PROG ---
Admission Date/Time: April 26, 2023 16:39 Indication: Osteomylitis Weight in k.7 kg Adjusted body weight in K.14 kg [place] body weight in K.1 kg Obesity Dosing Indication % IBW: 149% Serum Creatinine - Last 168 Hours 04/26/23 15:30 Creatinine 1.10 Estimated CrCl and GFR - Last 168 Hours 04/26/23 15:30 Estim Creat Clear Calc 82.9 Estimated GFR > 60 Vancomycin Loading Dose: N/A Current Vancomycin Dosing Regimen: 1000 mg Q12H Date and Time for next Vancomycin Level to be drawn: 04/28/23 @ 1800 Vancomycin Trough 11.9 mcg/mL (10.0-20.0) 04/26/23 18:16 Pharmacist Comments on Vancomycin Plan: Patient came from [facility]. Patient has been receiving vancomycin 750 mg Q24H at 2000 at [place]. Prior to dose, a trough was drawn today on 1815 to see if patient was in therapeutic levels. Trough came back ay 11.9, while therapeutic will aim for a higher level has patient has a bone and joint infection Will increase dose to vancomycin 1000 mg Q24H. Will reassess level after two dose on 04/28 @ 1800 Pharmacy will monitor renal function daily Corinne Ramírez, MartinezD
[2023-04-26 19:22] LABS: Erythrocyte Sedimentation Rate > 140 MM/HR (0-15)
[2023-04-26] MEDS: vancomycin HCL 1,000 MG in 0.9 % Sodium Chloride 250 ML 270 MG IV (19:47)
[2023-04-26] MEDS: oxyCODONE HCl Immed Release 5 MG TABLET PO (19:47)
[2023-04-26 19:54] VITALS: BP 127/62; PULSE 94; RESP 16; TEMP 37
--- NOTE | 2023-04-26 20:04 | PC.NURSE ---
Patient alert and oriented. Blood infusing currently. Vancomycin hung and infusing. VSS. Pt requested PO pain pain medications reporting 10/10 pain. Plan of care ongoing.
[2023-04-26] MEDS: Tamsulosin HCL 0.4 MG CAPSULE PO (21:50)
[2023-04-26] MEDS: Atorvastatin Calcium 10 MG TABLET PO (21:50)
[2023-04-26] MEDS: Insulin Glargine,Hum.rec.anlog 100 UNIT/ML 10 ML VIAL SUBCUT (21:50)
[2023-04-26] MEDS: Ferrous Sulfate 324 MG TABLET.DR PO (21:50)
[2023-04-26] MEDS: Piperacillin Sodium/Tazobactam 4.5 GM in 0.9 % Sodium Chloride 100 ML IV (21:51)
[2023-04-26 22:06] LABS: MANUAL DIFF FLAG NO
[2023-04-26 22:19] LABS: Basophils Absolute Auto 0.1 X10*3/uL (0.0-0.2); Basophils Percent Auto 0.3 % (0-2); Eosinophils Absolute Auto 0.1 X10*3/uL (0.0-0.4); Eosinophils Percent Auto 0.9 % (0-4); Hematocrit 22.2 % (42.0-52.0); Hemoglobin 7.1 g/dl (14.0-18.0); Imm Gran Abs Auto 0.08 X10*3/uL (0.00-0.03); Imm Gran Pct Auto 0.5 % (0.0-0.4); Lymphocytes Absolute Auto 1.4 X10*3/uL (1.2-4.9); Lymphocytes Percent Auto 9.2 % (20-40); Mean Corpuscular Hemoglobin 26.4 pg (27.0-33.0); Mean Corpuscular Volume 82.5 fL (80.0-98.0); Mean Platelet Volume 9.7 fL (9.4-12.4); Monocytes Absolute Auto 0.9 X10*3/uL (0.1-1.2); Monocytes Percent Auto 6.2 % (2-11); Neutrophils Absolute Auto 12.7 x10*3/uL (2.0-8.3); Neutrophils Percent Auto 82.9 % (45-73); Platelet Count 319 X10*3/uL (160-400); Red Blood Count 2.69 X10*6/uL (4.60-5.80); Red Cell Distribution Width 15.9 % (11.0-16.0); White Blood Count 15.3 X10*3/uL (4.8-10.8)
--- NOTE | 2023-04-26 22:21 | PC.NURSE ---
Patient alert and oriented. Medicated as per OCT. PT refused blood draw from tech and phlebotomy. Requested blood from PICC line. This RN jose alfredo CBC from PICC line. bilateral heal wounds irrigated and clean with dakin solution, covered with foam wound dressing . Plan of care on going.
--- NOTE | 2023-04-26 22:38 | PC.NURSE ---
This RN provided, Sheron LIM at [place] an update on pt's plan of care.
[2023-04-27] MEDS: Piperacillin Sodium/Tazobactam 4.5 GM in 0.9 % Sodium Chloride 100 ML IV ×4 (04:46→21:43)
[2023-04-27] MEDS: Heparin Sodium,Porcine 5,000 UNIT/ML VIAL 5000 UNIT SUBCUT ×2 (04:46→15:36)
[2023-04-27 05:43] VITALS: BP 121/64; PULSE 77; RESP 17; TEMP 37.2; O2SAT 96
[2023-04-27] MEDS: Acetaminophen 325 MG TABLET 650 MG PO (06:23)
[2023-04-27] MEDS: Morphine Sulfate 4 MG/ML CARTRIDGE IVPUSH (06:23)
--- NOTE | 2023-04-27 06:25 | PC.NURSE ---
PT alert and oriented. Labs drawn. PT reporting 05/17 pain. Medications administered per MAR. fluids infused. VSS. Depends changed. Call kowalski within [facility]. Plan of care ongoing.
[2023-04-27 06:36] LABS: Alanine Aminotransferase 12 U/L (0-40); Albumin Level 2.8 g/dL (3.5-5.0); Alkaline Phosphatase 104 U/L (39-117); Anion Gap 11 (12-20); Aspartate Amino Transferase 12 U/L (5-37); Bilirubin Total 0.3 mg/dL (0.0-1.0); Blood Urea Nitrogen 19 mg/dL (9-16); Carbon Dioxide 24 mmol/L (22-29); Chloride 105 mmol/L (96-108); Creatinine Clr Calc Pharmacy 82.9; Estimated Glomerular Filt Rate > 60; Glucose Random 169 mg/dL (60-115); Potassium 4.2 mmol/L (3.3-5.1); Sodium 136 mmol/L (135-145)
--- NOTE | 2023-04-27 07:56 | HE.PHANOTE ---
re cuate pt was getting vano 750 at home, last level was 11.9. Although insight says 1000mg is still too low, we will reassess after level tomorrow 04/28 @1800 wilian
[2023-04-27] MEDS: Ferrous Sulfate 324 MG TABLET.DR PO ×2 (09:47→20:39)
[2023-04-27] MEDS: Omeprazole 20 MG CAPSULE.DR PO (09:47)
[2023-04-27] MEDS: Escitalopram Oxalate 10 MG TABLET PO (09:47)
[2023-04-27] MEDS: 0.9 % Sodium Chloride Flush 3 ML SYRINGE IVFLUSH ×2 (09:48→15:40)
[2023-04-27] MEDS: methADONE HCl 20 MG/2 ML ORAL.CONC 30 MG PO (09:49)
[2023-04-27 10:06] VITALS: BP 130/63; PULSE 75; RESP 16; O2SAT 100
[2023-04-27] MEDS: NIFEdipine ER 60 MG TAB.ER.24 PO (10:19)
--- NOTE | 2023-04-27 10:32 | MHC.CM.PN ---
[facility] DELIVERED PT IN FROM [facility]. PT REQUIRES ASSIST WITH ADL'S. W/C BOUND. +COVID [facility] + HCP ON FILE PCP AT [facility]. DP: PT WILL RETURN TO [facility] AT DC VIA BLS. CM WILL CONTINUE TO FOLLOW FOR ANY CHANGE IN DC NEEDS/PLAN
--- NOTE | 2023-04-27 11:12 | PM.CNGS ---
History of Present Illness Consult details Consult date: 04/27/23 Reason for consult: wound care Narrative: Pleasant 57-year-old gentleman known history of nonhealing ulcer of the foot. He has had prior debridement and was treated for osteomyelitis of the right heel on his last admission on 03/16. He had been discharged on vancomycin. Started developing an odor and discharge. He was sent over from [place] by Dr. Chaya Alexis for evaluation. Review of Systems Review of Systems: Yes all other systems are reviewed and are negative Constitutional: Constitutional: Reports no additional constitutional complaints ENT: Reports Normal hearing present Cardiovascular: Cardiovascular: Denies chest pain, Denies chest pain at rest, Denies chest pain with activity and Denies pedal edema Respiratory: Respiratory: Denies cough Gastrointestinal: Gastrointestinal: Denies abdominal pain Musculoskeletal: Musculoskeletal: Denies abnormal gait, Denies muscle cramps and Denies radiating pain into limb Integumentary/Breasts: Skin/Breast: Denies skin ulcer and Denies wounds Neurologic: Reports Normal hearing present and Denies abnormal gait Psychiatric: Psychiatric: Reports no additional psychiatric complaints [facility] Past Medical History Medical History Eschar of heel Chronic kidney disease, stage 3 Acute on chronic anemia Morbid obesity Sleep apnea Colon cancer Colonic mass Migraine Anemia History of prostate cancer Fever of unknown origin Chronic anemia CKD (chronic kidney disease) Osteomyelitis Diabetes type 2, controlled PAD (peripheral artery disease) Diabetic infection of left foot Diabetes Opioid use disorder Family History Family History Mother No pertinent family history Surgical History Surgical History Hx of colectomy (01/20/23) S/P transmetatarsal amputation of foot Social History Social History Household Members: None Housing: Assisted Living Facility Do you presently have visiting nurse or other home services: Yes Alcohol intake: never Patient Tobacco Use Status: Never used Tobacco Smoked in Last 30 Days: No Use of substances other than those prescribed or required for medical reasons: No Substance Use Type: Opiates Advance Directives: Yes Advance Directives on File: Yes Advance Directives Date on File: 01/11/23 service: No Current occupational status: disabled Meds Allergies Allergy/AdvReac Type Severity Reaction Status Date / Time No Known Allergies Allergy Verified 04/06/23 13:10 [No Known Allergies*] Active Medications: Current Medications Acetaminophen (Acetaminophen 325 Mg Tablet) 650 mg PO Q6H PRN PRN Reason: Pain, Mild (Pain Scale 1-3) Last Admin: 04/27/23 06:23 Dose: 650 mg Al Hydroxide/Mg Hydroxide (Magnesium Hydrox/Alum Hydrox 30 Ml Oral.Susp) 15 ml PO Q6H PRN PRN Reason: Dyspepsia Atorvastatin Calcium (Atorvastatin Calcium 10 Mg Tablet) 10 mg PO BEDTIME [facility] Last Admin: 04/26/23 21:50 Dose: 10 mg Bisacodyl (Bisacodyl 10 Mg Supp.Rect) 10 mg NM DAILY PRN PRN Reason: Constipation Docusate Sodium (Docusate Sodium 100 Mg Capsule) 100 mg PO DAILY PRN PRN Reason: Constipation Escitalopram Oxalate (Escitalopram Oxalate 10 Mg Tablet) 10 mg PO DAILY [facility] Last Admin: 04/27/23 09:47 Dose: 10 mg Ferrous Sulfate (Ferrous Sulfate 324 Mg Tablet.Dr) 324 mg PO BID [facility] Last Admin: 04/27/23 09:47 Dose: 324 mg Heparin Sodium (Porcine) (Heparin Sodium,Porcine 5,000 Unit/Ml Vial) 5,000 unit SUBCUT Q12H [facility] Last Admin: 04/27/23 04:46 Dose: 5,000 unit Hydroxyzine HCl (Hydroxyzine Hcl 10 Mg Tablet) 10 mg PO Q6H PRN PRN Reason: Anxiety Piperacillin Sod/Tazobactam (Sod 4.5 gm/ Sodium Chloride) 100 mls @ 200 mls/hr IV Q6H [facility] Last Infusion: 04/27/23 10:21 Dose: Infused Vancomycin HCl 1,000 mg/ (Sodium Chloride) 270 mls @ 270 mls/hr IV Q24H [facility] Last Infusion: 04/26/23 21:06 Dose: Infused Insulin Glargine (Insulin Glargine,Hum.Rec.Anlog 100 Unit/Ml 10 Ml Vial) 5 unit SUBCUT BEDTIME [facility] Last Admin: 04/26/23 21:50 Dose: 5 unit Loperamide HCl (Loperamide Hcl 2 Mg Capsule) 2 mg PO Q4H PRN PRN Reason: Loose Stool Methadone HCl (Methadone Hcl 20 Mg/2 Ml Oral.Conc) 30 mg PO DAILY [facility] Last Admin: 04/27/23 09:49 Dose: 30 mg Morphine Sulfate (Morphine Sulfate 4 Mg/Ml Cartridge) 4 mg IVPUSH Q4H PRN; Protocol PRN Reason: Pain, Severe (Pain Scale 7-10) Last Admin: 04/27/23 06:23 Dose: 4 mg Nifedipine (Nifedipine Er 60 Mg Tab.Er.24) 60 mg PO DAILY [facility]; Protocol Last Admin: 04/27/23 10:19 Dose: 60 mg Omeprazole (Omeprazole 20 Mg Capsule.Dr) 20 mg PO DAILY@0630 [facility] Last Admin: 04/27/23 09:47 Dose: 20 mg Ondansetron HCl (Ondansetron Hcl 4 Mg/2 Ml Vial) 4 mg IVPUSH Q8H PRN PRN Reason: Nausea and Vomiting Oxycodone HCl (Oxycodone Hcl Immed Release 5 Mg Tablet) 5 mg PO Q4H PRN PRN Reason: Pain, Moderate(Pain Scale 4-6) Last Admin: 04/26/23 19:47 Dose: 5 mg Pharmacy Consult (Consult Rx Vancomycin Dosing) 1 each MISCELLANE DAILY PRN PRN Reason: Consult order Polyethylene Glycol (Polyethylene Glycol 3350 17 Gm Powd.Pack) 17 gm PO DAILY PRN PRN Reason: constipation Sodium Biphosphate/Sodium Phosphate (Sodium Phosphate,Parke-Dibasic 133 Ml Enema) 118 ml NM DAILY PRN PRN Reason: Constipation Sodium Chloride (0.9 % Sodium Chloride Flush 3 Ml Syringe) 3 ml IVFLUSH QSHIFT [facility] Last Admin: 04/27/23 09:48 Dose: 3 ml Sodium Hypochlorite (Sodium Hypochlorite 0.25% 473 Ml Solution) 1 appl TOPICAL BID [facility] Last Admin: 04/27/23 10:19 Dose: 1 appl Tamsulosin HCl (Tamsulosin Hcl 0.4 Mg Capsule) 0.4 mg PO BEDTIME [facility] Last Admin: 04/26/23 21:50 Dose: 0.4 mg Home Medications Medication Instructions Recorded Confirmed Last Taken Type clopidogrel 75 mg tablet 1 tab PO DAILY 06/17/22 04/26/23 01/24/23 History methadone 10 mg/mL oral concentrate 30 mg PO DAILY 06/17/22 04/26/23 04/26/23 09:28 History tamsulosin 0.4 mg capsule 1 cap PO BEDTIME 06/17/22 04/26/23 01/24/23 History atorvastatin 10 mg tablet 10 mg PO BEDTIME 01/11/23 04/26/23 01/24/23 History citalopram 20 mg tablet 20 mg PO DAILY 01/11/23 04/26/23 01/24/23 History insulin glargine 100 unit/mL 5 unit subcut BEDTIME 01/11/23 04/26/23 01/24/23 History subcutaneous solution (Lantus U-100 Insulin) omeprazole 20 mg capsule,delayed 20 mg PO DAILY@0630 01/11/23 04/26/23 01/24/23 History release acetaminophen 325 mg tablet 650 mg PO Q4H PRN Fever 03/16/23 04/26/23 Unknown History acetaminophen 325 mg tablet 975 mg PO Q8H PRN Pain 03/16/23 04/26/23 Unknown History aluminum-mag hydroxide-simethicone 15 ml PO Q6H PRN Dyspepsia 03/16/23 04/26/23 Unknown History 200 mg-200 mg-20 mg/5 mL oral susp aspirin 81 mg chewable tablet 81 mg PO DAILY 03/16/23 04/26/23 Unknown History bisacodyl 10 mg rectal suppository 10 mg NM DAILY PRN Constipation 03/16/23 04/26/23 Unknown History ferrous sulfate 325 mg (65 mg 325 mg PO BID 03/16/23 04/26/23 Unknown History iron) tablet hydroxyzine HCl 10 mg tablet 10 mg PO Q6H PRN Anxiety 03/16/23 04/26/23 Unknown History insulin lispro 100 unit/mL 1 sliding scale dose subcut 03/16/23 04/26/23 Unknown History subcutaneous solution USEASDIRECTD loperamide 2 mg tablet (Imodium 2 mg PO Q4H PRN Loose Stool 03/16/23 04/26/23 Unknown History A-D) nifedipine 60 mg tablet,extended 60 mg PO DAILY 03/16/23 04/26/23 Unknown History release 24 hr ondansetron HCl 4 mg tablet 4 mg PO Q8H PRN Nausea 03/16/23 04/26/23 Unknown History sodium phosphates 19 gram-7 118 ml NM DAILY PRN Constipation 03/16/23 04/26/23 Unknown History gram/118 mL enema (Fleet Enema) collagenase clostridium histo. 250 1 appl topical BID 04/26/23 04/26/23 Unknown History unit/gram topical ointment (Santyl) sodium hypochlorite 0.25 % 1 irrig topical BID 04/26/23 04/26/23 Unknown History solution (Dakin's Solution) vancomycin 750 mg/250 mL in 0.9 % 750 mg IV Q24H 04/26/23 04/26/23 04/25/23 20:00 History sodium chloride intravenous solution Physical Exam Vital Signs: Vital Signs: Last Vital Signs Temp 99.0 F 04/27/23 05:43 Pulse 75 04/27/23 10:06 Resp 16 04/27/23 10:06 BP 130/63 04/27/23 10:06 Pulse Ox 100 04/27/23 10:06 O2 Del Method Room Air 04/27/23 10:06 BMI result Body Mass Index 34.1 Const: General: cooperative, healthy appearing and comfortable Orientation/consciousness: oriented to person, oriented to place and oriented to time HEENT: Head: Yes normal to inspection Neck: Neck: Yes normal visual inspection Carotids: no bruits Chest: Chest palpation & inspection: normal inspection of the chest Resp: Effort & Inspection: normal respiratory effort and able to speak in complete sentences Auscultation: clear to auscultation bilaterally, no crackles, no rales, no rhonchi and no wheezes Cardio: Rate: regular rate Rhythm: regular rhythm Heart sounds: S1 normal heart sound present and S2 normal heart sound present Bruits: no carotid bruits Peripheral pulses: Peripheral pulses 2+ throughout GI: Inspection: Yes normal to inspection Skin: Other: Right heel poor granulation bed. Significant fibrinous necrotic material with foul odor. Exposed calcaneus. Wounds: no wounds Hair: normal Neuro: General: oriented to person, oriented to place and oriented to time Cranial nerves: Yes CN's II-XII intact bilaterally and Yes Normal hearing present Cognition (Neuro): normal cognition Motor exam (neuro): 5/5 motor strength present throughout Extrem: Other: venous exam: No significant superficial varicosities or spider telangiectasias, minimal edema General: No clubbing, No cyanosis and No edema Psych: Appearance: grossly normal Mental Status: mental status grossly normal Speech and movement: Normal speech and movement present Results Labs 04/26/23 22:02 04/27/23 06:18 Labs: Abnormal lab results 04/26/23 04/26/23 04/26/23 Range/Units 15:30 16:31 22:02 WBC 14.3 H 15.3 H (4.8-10.8) X10*3/uL RBC 2.40 L 2.69 L (4.60-5.80) X10*6/uL Hgb 6.2 L* 7.1 L (14.0-18.0) g/dl Hct 19.6 L* 22.2 L (42.0-52.0) % MCH 25.8 L 26.4 L (27.0-33.0) pg RDW 16.6 H (11.0-16.0) % Immature Gran % (Auto) 0.5 H (0.0-0.4) % Neut % (Auto) 81.6 H 82.9 H (45-73) % Lymph % (Auto) 10.2 L 9.2 L (20-40) % Abs Immat Gran (auto) 0.05 H 0.08 H (0.00-0.03) X10*3/uL Absolute Neuts (auto) 11.7 H 12.7 H (2.0-8.3) x10*3/uL ESR > 140 H (0-15) MM/HR Sodium 134 L (135-145) mmol/L Anion Gap 10 L (12-20) BUN 21 H (9-16) mg/dL Random Glucose 180 H (60-115) mg/dL C-Reactive Protein 18.38 H (< or = 0.50) mg/dL Albumin 2.9 L (3.5-5.0) g/dL Crossmatch See Detail 04/27/23 Range/Units 06:18 WBC (4.8-10.8) X10*3/uL RBC (4.60-5.80) X10*6/uL Hgb (14.0-18.0) g/dl Hct (42.0-52.0) % MCH (27.0-33.0) pg RDW (11.0-16.0) % Immature Gran % (Auto) (0.0-0.4) % Neut % (Auto) (45-73) % Lymph % (Auto) (20-40) % Abs Immat Gran (auto) (0.00-0.03) X10*3/uL Absolute Neuts (auto) (2.0-8.3) x10*3/uL ESR (0-15) MM/HR Sodium (135-145) mmol/L Anion Gap 11 L (12-20) BUN 19 H (9-16) mg/dL Random Glucose 169 H (60-115) mg/dL C-Reactive Protein (< or = 0.50) mg/dL Albumin 2.8 L (3.5-5.0) g/dL Crossmatch Short CBC 04/26/23 04/26/23 Range/Units 15:30 22:02 WBC 14.3 H 15.3 H (4.8-10.8) X10*3/uL Hgb 6.2 L* 7.1 L (14.0-18.0) g/dl Hct 19.6 L* 22.2 L (42.0-52.0) % Plt Count 335 319 (160-400) X10*3/uL BMP 04/26/23 04/27/23 15:30 06:18 Sodium 134 L 136 Potassium 4.3 4.2 Chloride 103 105 Carbon Dioxide 25 24 BUN 21 H 19 H Creatinine 1.10 1.10 Calcium 9.0 D 9.0 Liver Function 04/26/23 04/27/23 Range/Units 15:30 06:18 Total Bilirubin 0.2 0.3 (0.0-1.0) mg/dL Direct Bilirubin < 0.2 (0.0-0.5) mg/dL AST 11 12 (5-37) U/L ALT 13 12 (0-40) U/L Alkaline Phosphatase 107 104 (39-117) U/L Albumin 2.9 L 2.8 L (3.5-5.0) g/dL All other labs normal. Assessment and Plan (1) Diabetic ulcer of right foot: Qualifiers: Diabetic foot ulcer location: heel Diabetes mellitus type: type 2 Non-pressure ulcer stage: with necrosis of bone Qualified Code(s): E11.621 - Type 2 diabetes mellitus with foot ulcer; L97.414 - Non-pressure chronic ulcer of right heel and midfoot with necrosis of bone Status: Acute Plan In short patient has nonhealing right lower extremity ulcer. The findings were discussed in detail with the patient and the patient's . This was on 2 subsequent visits throughout the day as he did request time to think about it. The patient will require right below-knee amputation. Risks benefits complications of the operation were discussed in detail with the patient he agreed and consented. Will plan for OR for tomorrow. Thank you for allowing us to assist in his care. If there are any questions or concerns please do not hesitate to contact us Time Spent With Patient Time: Total time managing care of this patient today ____ minutes. Procedures Date of Service Date of Service: 04/27/23
--- NOTE | 2023-04-27 12:36 | PC.NURSE ---
Just changed his dressing on both heels wet to dry with dakins half solution.
[2023-04-27 13:21] VITALS: BP 135/65; PULSE 73; RESP 20; TEMP 36.3; O2SAT 99
--- NOTE | 2023-04-27 14:49 | HO.PM.IMPN ---
Subjective Subjective Date of Service: 04/27/23 Interval History: No acute issues overnight. Still ambivalent about amputation in a.m. Review of Systems Denies chest pain Denies shortness of breath Denies nausea vomiting diarrhea Denies fever chills Physical Exam Vital Signs: Vital Signs: Last Vital Signs Temp 97.3 F 04/27/23 13:21 Pulse 73 04/27/23 13:21 Resp 20 04/27/23 13:21 BP 135/65 04/27/23 13:21 Pulse Ox 99 04/27/23 13:21 O2 Del Method Room Air 04/27/23 13:21 BMI result Body Mass Index 34.1 Const: Other: No acute distress Resp: Other: Clear to auscultation bilaterally no rales rhonchi wheezes Cardio: Other: No S4; positive S1-S2; no S3 murmurs rubs or gallops Extrem: Other: See admission photos Objective Data Active Medications Acetaminophen (Acetaminophen 325 Mg Tablet) 650 mg PO Q6H PRN PRN Reason: Pain, Mild (Pain Scale 1-3) Last Admin: 04/27/23 06:23 Dose: 650 mg Documented By: MARCO A Al Hydroxide/Mg Hydroxide (Magnesium Hydrox/Alum Hydrox 30 Ml Oral.Susp) 15 ml PO Q6H PRN PRN Reason: Dyspepsia Atorvastatin Calcium (Atorvastatin Calcium 10 Mg Tablet) 10 mg PO BEDTIME [facility] Last Admin: 04/26/23 21:50 Dose: 10 mg Documented By: MARCO A Bisacodyl (Bisacodyl 10 Mg Supp.Rect) 10 mg NM DAILY PRN PRN Reason: Constipation Docusate Sodium (Docusate Sodium 100 Mg Capsule) 100 mg PO DAILY PRN PRN Reason: Constipation Escitalopram Oxalate (Escitalopram Oxalate 10 Mg Tablet) 10 mg PO DAILY [facility] Last Admin: 04/27/23 09:47 Dose: 10 mg Documented By: FRANNY Ferrous Sulfate (Ferrous Sulfate 324 Mg Tablet.) 324 mg PO BID [facility] Last Admin: 04/27/23 09:47 Dose: 324 mg Documented By: FRANNY Heparin Sodium (Porcine) (Heparin Sodium,Porcine 5,000 Unit/Ml Vial) 5,000 unit SUBCUT Q12H [facility] Last Admin: 04/27/23 04:46 Dose: 5,000 unit Documented By: MARCO A Hydroxyzine HCl (Hydroxyzine Hcl 10 Mg Tablet) 10 mg PO Q6H PRN PRN Reason: Anxiety Piperacillin Sod/Tazobactam (Sod 4.5 gm/ Sodium Chloride) 100 mls @ 200 mls/hr IV Q6H [facility] Last Infusion: 04/27/23 10:21 Dose: Infused Documented By: FRANNY Vancomycin HCl 1,000 mg/ (Sodium Chloride) 270 mls @ 270 mls/hr IV Q24H [facility] Last Infusion: 04/26/23 21:06 Dose: Infused Documented By: MARCO A Insulin Glargine (Insulin Glargine,Hum.Rec.Anlog 100 Unit/Ml 10 Ml Vial) 5 unit SUBCUT BEDTIME [facility] Last Admin: 04/26/23 21:50 Dose: 5 unit Documented By: MARCO A Loperamide HCl (Loperamide Hcl 2 Mg Capsule) 2 mg PO Q4H PRN PRN Reason: Loose Stool Methadone HCl (Methadone Hcl 20 Mg/2 Ml Oral.Conc) 30 mg PO DAILY [facility] Last Admin: 04/27/23 09:49 Dose: 30 mg Documented By: FRANNY Morphine Sulfate (Morphine Sulfate 4 Mg/Ml Cartridge) 4 mg IVPUSH Q4H PRN; Protocol PRN Reason: Pain, Severe (Pain Scale 7-10) Last Admin: 04/27/23 06:23 Dose: 4 mg Documented By: MARCO A Nifedipine (Nifedipine Er 60 Mg Tab.Er.24) 60 mg PO DAILY [facility]; Protocol Last Admin: 04/27/23 10:19 Dose: 60 mg Documented By: FRANNY Omeprazole (Omeprazole 20 Mg Capsule.) 20 mg PO DAILY@0630 [facility] Last Admin: 04/27/23 09:47 Dose: 20 mg Documented By: FRANNY Ondansetron HCl (Ondansetron Hcl 4 Mg/2 Ml Vial) 4 mg IVPUSH Q8H PRN PRN Reason: Nausea and Vomiting Oxycodone HCl (Oxycodone Hcl Immed Release 5 Mg Tablet) 5 mg PO Q4H PRN PRN Reason: Pain, Moderate(Pain Scale 4-6) Last Admin: 04/26/23 19:47 Dose: 5 mg Documented By: MARCO A Pharmacy Consult (Consult Rx Vancomycin Dosing) 1 each MISCELLANE DAILY PRN PRN Reason: Consult order Polyethylene Glycol (Polyethylene Glycol 3350 17 Gm Powd.Pack) 17 gm PO DAILY PRN PRN Reason: constipation Sodium Biphosphate/Sodium Phosphate (Sodium Phosphate,Crowley-Dibasic 133 Ml Enema) 118 ml NM DAILY PRN PRN Reason: Constipation Sodium Chloride (0.9 % Sodium Chloride Flush 3 Ml Syringe) 3 ml IVFLUSH QSHIFT [facility] Last Admin: 04/27/23 09:48 Dose: 3 ml Documented By: FRANNY Sodium Hypochlorite (Sodium Hypochlorite 0.25% 473 Ml Solution) 1 appl TOPICAL BID [facility] Last Admin: 04/27/23 10:19 Dose: 1 appl Documented By: FRANNY Tamsulosin HCl (Tamsulosin Hcl 0.4 Mg Capsule) 0.4 mg PO BEDTIME [facility] Last Admin: 04/26/23 21:50 Dose: 0.4 mg Documented By: MARCO A Labs 04/26/23 22:02 04/27/23 06:18 Labs: Laboratory Results - last 24 hr 04/26/23 04/26/23 04/26/23 15:30 16:31 18:16 MCV 81.7 MCH 25.8 L MCHC 31.6 RDW 16.6 H Plt Count 335 MPV 10.2 Immature Gran % (Auto) 0.4 Neut % (Auto) 81.6 H Lymph % (Auto) 10.2 L Crowley % (Auto) 6.2 Eos % (Auto) 1.2 Baso % (Auto) 0.4 Lymph # (Auto) 1.5 Crowley # (Auto) 0.9 Eos # (Auto) 0.2 Baso # (Auto) 0.1 Abs Immat Gran (auto) 0.05 H Absolute Neuts (auto) 11.7 H Absolute Nucleated RBC 0.000 Nucleated RBC % (auto) 0.0 ESR > 140 H Anion Gap 10 L Estim Creat Clear Calc 82.9 Estimated GFR > 60 Random Glucose 180 H Calcium 9.0 D Magnesium 1.8 Total Bilirubin 0.2 Direct Bilirubin < 0.2 AST 11 ALT 13 Alkaline Phosphatase 107 C-Reactive Protein 18.38 H Total Protein 7.1 Albumin 2.9 L Vancomycin Trough 11.9 Blood Type AB Positive Antibody Screen NEGATIVE Crossmatch See Detail 04/26/23 04/27/23 22:02 06:18 MCV 82.5 MCH 26.4 L MCHC 32.0 RDW 15.9 Plt Count 319 MPV 9.7 Immature Gran % (Auto) 0.5 H Neut % (Auto) 82.9 H Lymph % (Auto) 9.2 L Crowley % (Auto) 6.2 Eos % (Auto) 0.9 Baso % (Auto) 0.3 Lymph # (Auto) 1.4 Crowley # (Auto) 0.9 Eos # (Auto) 0.1 Baso # (Auto) 0.1 Abs Immat Gran (auto) 0.08 H Absolute Neuts (auto) 12.7 H Absolute Nucleated RBC 0.000 Nucleated RBC % (auto) 0.0 ESR Anion Gap 11 L Estim Creat Clear Calc 82.9 Estimated GFR > 60 Random Glucose 169 H Calcium 9.0 Magnesium Total Bilirubin 0.3 Direct Bilirubin AST 12 ALT 12 Alkaline Phosphatase 104 C-Reactive Protein Total Protein 7.0 Albumin 2.8 L Vancomycin Trough Blood Type Antibody Screen Crossmatch Assessment and Plan (1) Osteomyelitis: Status: Acute (2) Acute on chronic anemia: Status: Acute (3) Diabetic ulcer of right foot: Status: Acute Plan 57-year-old male with history of chronic normocytic anemia, insulin-dependent type 2 diabetes, chronic kidney disease stage III, history of opiate use disorder on methadone patient denies recent use, peripheral artery disease on DAPT, with history of osteomyelitis s/p left TMA 05/29 and recent admission from 03/16- for osteomyelitis R heel, discharged on IV vanco 1 g with last dose scheduled for 04/27 admitted for non healing ulceration of the right calcaneus with interval osteomyelitis. 1.Nonhealing unstageable ulceration of the right calcaneus with interval osteomyelitis -vancomycin/ Zosyn(2) -seen by vascular surgery. .. Amputation book for a.m. 2.Acute on chronic- anemia of chronic disease -transfuse 1 unit packed red blood cells in the ED -follow CBC 3.Insulin-dependent type 2 diabetes -hold oral glycemic 6 -lispro correctional scale -adjust as indicated 4.CKD stage 3 -renal function baseline -follow renals/divalents 5.Opioid dependence -continue methadone 6.Hypertension -acceptable control on current therapies -adjust as indicated Heparin Full code Patient will require ongoing hospitalization for IV antibiotics to treat osteomyelitis pending amputation Time Spent With Patient Time: Total time managing care of this patient today ____ minutes. Quality Stroke Does the patient have a stroke diagnosis?: No VTE Prior VTE?: No VTE Risk Level:: Medical - moderate - high VTE Device Contraindication: Treatment Not Indicated VTE Drug Contraindication: N/A - Med Ordered
[2023-04-27] MEDS: oxyCODONE HCl Immed Release 5 MG TABLET PO ×2 (15:35→20:40)
--- NOTE | 2023-04-27 15:40 | P.CNID_ITS ---
History of Present Illness Data of Consult Service Date: 04/27/23 Requesting physician: Da Hood Primary Care Provider: Unknown Physician HPI Reason for consult: worsening right calcaneous He presents with worsening right calcaneous odor as well as exudate. He has no fever or chills. He has PICC line and is supposed to complete course of Vancomycin on 04/27. I had seen him last on 04/06 and he reports doing well until two weeks ago. He has seen Dr Brown and he is scheduled for amputation tomorrow. Review of Systems 2 Review of Systems: Yes all other systems are reviewed and are negative [facility] Past Medical History Medical History Eschar of heel Chronic kidney disease, stage 3 Acute on chronic anemia Morbid obesity Sleep apnea Colon cancer Colonic mass Migraine Anemia History of prostate cancer Fever of unknown origin Chronic anemia CKD (chronic kidney disease) Osteomyelitis Diabetes type 2, controlled PAD (peripheral artery disease) Diabetic infection of left foot Diabetes Opioid use disorder Family History Family History Mother No pertinent family history Family history: reviewed and not pertinent Surgical History Surgical History Hx of colectomy (01/20/23) S/P transmetatarsal amputation of foot Social History Social History Household Members: Spouse Household Members Other:: 2 Housing: Apartment Do you presently have visiting nurse or other home services: Yes Alcohol intake: never Patient Tobacco Use Status: Never used Tobacco Substance Use Type: Opiates Advance Directives Date on File: 01/11/23 service: No Current occupational status: disabled Meds Allergies Allergy/AdvReac Type Severity Reaction Status Date / Time No Known Allergies Allergy Verified 04/06/23 13:10 [No Known Allergies*] Active Medications: Current Medications Acetaminophen (Acetaminophen 325 Mg Tablet) 650 mg PO Q6H PRN PRN Reason: Pain, Mild (Pain Scale 1-3) Last Admin: 04/27/23 06:23 Dose: 650 mg Al Hydroxide/Mg Hydroxide (Magnesium Hydrox/Alum Hydrox 30 Ml Oral.Susp) 15 ml PO Q6H PRN PRN Reason: Dyspepsia Atorvastatin Calcium (Atorvastatin Calcium 10 Mg Tablet) 10 mg PO BEDTIME [facility] Last Admin: 04/26/23 21:50 Dose: 10 mg Bisacodyl (Bisacodyl 10 Mg Supp.Rect) 10 mg AR DAILY PRN PRN Reason: Constipation Docusate Sodium (Docusate Sodium 100 Mg Capsule) 100 mg PO DAILY PRN PRN Reason: Constipation Escitalopram Oxalate (Escitalopram Oxalate 10 Mg Tablet) 10 mg PO DAILY [facility] Last Admin: 04/27/23 09:47 Dose: 10 mg Ferrous Sulfate (Ferrous Sulfate 324 Mg Tablet.Dr) 324 mg PO BID [facility] Last Admin: 04/27/23 09:47 Dose: 324 mg Heparin Sodium (Porcine) (Heparin Sodium,Porcine 5,000 Unit/Ml Vial) 5,000 unit SUBCUT Q12H [facility] Last Admin: 04/27/23 15:36 Dose: 5,000 unit Hydroxyzine HCl (Hydroxyzine Hcl 10 Mg Tablet) 10 mg PO Q6H PRN PRN Reason: Anxiety Piperacillin Sod/Tazobactam (Sod 4.5 gm/ Sodium Chloride) 100 mls @ 200 mls/hr IV Q6H [facility] Last Admin: 04/27/23 15:36 Dose: 100 mls/hr Vancomycin HCl 1,000 mg/ (Sodium Chloride) 270 mls @ 270 mls/hr IV Q24H [facility] Last Infusion: 04/26/23 21:06 Dose: Infused Insulin Glargine (Insulin Glargine,Hum.Rec.Anlog 100 Unit/Ml 10 Ml Vial) 5 unit SUBCUT BEDTIME [facility] Last Admin: 04/26/23 21:50 Dose: 5 unit Loperamide HCl (Loperamide Hcl 2 Mg Capsule) 2 mg PO Q4H PRN PRN Reason: Loose Stool Methadone HCl (Methadone Hcl 20 Mg/2 Ml Oral.Conc) 30 mg PO DAILY [facility] Last Admin: 04/27/23 09:49 Dose: 30 mg Morphine Sulfate (Morphine Sulfate 4 Mg/Ml Cartridge) 4 mg IVPUSH Q4H PRN; Protocol PRN Reason: Pain, Severe (Pain Scale 7-10) Last Admin: 04/27/23 06:23 Dose: 4 mg Nifedipine (Nifedipine Er 60 Mg Tab.Er.24) 60 mg PO DAILY [facility]; Protocol Last Admin: 04/27/23 10:19 Dose: 60 mg Omeprazole (Omeprazole 20 Mg Capsule.Dr) 20 mg PO DAILY@0630 [facility] Last Admin: 04/27/23 09:47 Dose: 20 mg Ondansetron HCl (Ondansetron Hcl 4 Mg/2 Ml Vial) 4 mg IVPUSH Q8H PRN PRN Reason: Nausea and Vomiting Oxycodone HCl (Oxycodone Hcl Immed Release 5 Mg Tablet) 5 mg PO Q4H PRN PRN Reason: Pain, Moderate(Pain Scale 4-6) Last Admin: 04/27/23 15:35 Dose: 5 mg Pharmacy Consult (Consult Rx Vancomycin Dosing) 1 each MISCELLANE DAILY PRN PRN Reason: Consult order Polyethylene Glycol (Polyethylene Glycol 3350 17 Gm Powd.Pack) 17 gm PO DAILY PRN PRN Reason: constipation Sodium Biphosphate/Sodium Phosphate (Sodium Phosphate,Stokes-Dibasic 133 Ml Enema) 118 ml AR DAILY PRN PRN Reason: Constipation Sodium Chloride (0.9 % Sodium Chloride Flush 3 Ml Syringe) 3 ml IVFLUSH QSHIFT [facility] Last Admin: 04/27/23 15:40 Dose: 3 ml Sodium Hypochlorite (Sodium Hypochlorite 0.25% 473 Ml Solution) 1 appl TOPICAL BID [facility] Last Admin: 04/27/23 10:19 Dose: 1 appl Tamsulosin HCl (Tamsulosin Hcl 0.4 Mg Capsule) 0.4 mg PO BEDTIME [facility] Last Admin: 04/26/23 21:50 Dose: 0.4 mg Home Medications Medication Instructions Recorded Confirmed Last Taken Type clopidogrel 75 mg tablet 1 tab PO DAILY 06/17/22 04/26/23 01/24/23 History methadone 10 mg/mL oral concentrate 30 mg PO DAILY 06/17/22 04/26/23 04/26/23 09:28 History tamsulosin 0.4 mg capsule 1 cap PO BEDTIME 06/17/22 04/26/23 01/24/23 History atorvastatin 10 mg tablet 10 mg PO BEDTIME 01/11/23 04/26/23 01/24/23 History citalopram 20 mg tablet 20 mg PO DAILY 01/11/23 04/26/23 01/24/23 History insulin glargine 100 unit/mL 5 unit subcut BEDTIME 01/11/23 04/26/23 01/24/23 History subcutaneous solution (Lantus U-100 Insulin) omeprazole 20 mg capsule,delayed 20 mg PO DAILY@0630 01/11/23 04/26/23 01/24/23 History release acetaminophen 325 mg tablet 650 mg PO Q4H PRN Fever 03/16/23 04/26/23 Unknown History acetaminophen 325 mg tablet 975 mg PO Q8H PRN Pain 03/16/23 04/26/23 Unknown History aluminum-mag hydroxide-simethicone 15 ml PO Q6H PRN Dyspepsia 03/16/23 04/26/23 Unknown History 200 mg-200 mg-20 mg/5 mL oral susp aspirin 81 mg chewable tablet 81 mg PO DAILY 03/16/23 04/26/23 Unknown History bisacodyl 10 mg rectal suppository 10 mg AR DAILY PRN Constipation 03/16/23 04/26/23 Unknown History ferrous sulfate 325 mg (65 mg 325 mg PO BID 03/16/23 04/26/23 Unknown History iron) tablet hydroxyzine HCl 10 mg tablet 10 mg PO Q6H PRN Anxiety 03/16/23 04/26/23 Unknown History insulin lispro 100 unit/mL 1 sliding scale dose subcut 03/16/23 04/26/23 Unknown History subcutaneous solution USEASDIRECTD loperamide 2 mg tablet (Imodium 2 mg PO Q4H PRN Loose Stool 03/16/23 04/26/23 Unknown History A-D) nifedipine 60 mg tablet,extended 60 mg PO DAILY 03/16/23 04/26/23 Unknown History release 24 hr ondansetron HCl 4 mg tablet 4 mg PO Q8H PRN Nausea 03/16/23 04/26/23 Unknown History sodium phosphates 19 gram-7 118 ml AR DAILY PRN Constipation 03/16/23 04/26/23 Unknown History gram/118 mL enema (Fleet Enema) collagenase clostridium histo. 250 1 appl topical BID 04/26/23 04/26/23 Unknown History unit/gram topical ointment (Santyl) sodium hypochlorite 0.25 % 1 irrig topical BID 04/26/23 04/26/23 Unknown History solution (Dakin's Solution) vancomycin 750 mg/250 mL in 0.9 % 750 mg IV Q24H 04/26/23 04/26/23 04/25/23 20:00 History sodium chloride intravenous solution Physical Exam 2 Vital Signs: Vital Signs: Last Vital Signs Temp 97.3 F 04/27/23 13:21 Pulse 73 04/27/23 13:21 Resp 20 04/27/23 13:21 BP 135/65 04/27/23 13:21 Pulse Ox 99 04/27/23 13:21 O2 Del Method Room Air 04/27/23 13:21 BMI result Body Mass Index 34.1 Const: General: cooperative HEENT: Head: Yes normal to inspection Face and sinus: Yes normal facial exam Mouth: Normal oral and palatal mucosa present Teeth and gingiva: d entition normal Eyes: General: appearance normal, both eyes and all related structures P upils: Equal, round and reactive pupils present Resp: Effort & Inspection: normal respiratory effort Cardio: Rate: regular rate Rhythm: regular rhythm GI: Palpation (GI): Soft to palpation and nontender : General: Yes no CVA tenderness Back/Spine/Pelvis: Back: no CVA tenderness Skin: General skin exam: no rashes or lesions noted Neuro: General: moves all extremities Cranial nerves: Yes Equal, round and reactive pupils present Extrem: Other: left healed TMA right necrotic tissue heel Psych: Appearance: grossly normal Results Labs 04/26/23 22:02 04/27/23 06:18 Labs: Short CBC 04/26/23 04/26/23 Range/Units 15:30 22:02 WBC 14.3 H 15.3 H (4.8-10.8) X10*3/uL Hgb 6.2 L* 7.1 L (14.0-18.0) g/dl Hct 19.6 L* 22.2 L (42.0-52.0) % Plt Count 335 319 (160-400) X10*3/uL BMP 04/26/23 04/27/23 15:30 06:18 Sodium 134 L 136 Potassium 4.3 4.2 Chloride 103 105 Carbon Dioxide 25 24 BUN 21 H 19 H Creatinine 1.10 1.10 Calcium 9.0 D 9.0 Liver Function 04/26/23 04/27/23 Range/Units 15:30 06:18 Total Bilirubin 0.2 0.3 (0.0-1.0) mg/dL Direct Bilirubin < 0.2 (0.0-0.5) mg/dL AST 11 12 (5-37) U/L ALT 13 12 (0-40) U/L Alkaline Phosphatase 107 104 (39-117) U/L Albumin 2.9 L 2.8 L (3.5-5.0) g/dL Assessment and Plan (1) Diabetic ulcer of right foot: Qualifiers: Diabetic foot ulcer location: heel Diabetes mellitus type: type 2 Non- pressure ulcer stage: with necrosis of bone Qualified Code(s): E11.621 - Type 2 diabetes mellitus with foot ulcer; L97.414 - Non-pressure chronic ulcer of right heel and midfoot with necrosis of bone Status: Acute He has not had healing despite six weeks IV antibiotics He has had prior organisms including MRSA and Group B strep. There is concern over gram negative and other organisms with gas in XRay and high concern over loss of limb and life (2) Osteomyelitis: Qualifiers: Laterality: right Osteomyelitis location: foot Osteomyelitis type: o ther Qualified Code(s): M86.8X7 - Other osteomyelitis, ankle and foot Status: Acute (3) Eschar of heel: Status: Acute Plan Agree with Zosyn and Vancomycin Would agree with surgical plans for tomorrow amputation and no further antibiotics Time Spent With Patient Time: Total time managing care of this patient today ____ minutes.
[2023-04-27 15:49] VITALS: BP 166/74; PULSE 88; RESP 20; TEMP 36.4; O2SAT 98
[2023-04-27 19:53] VITALS: BP 130/56; PULSE 81; RESP 20; TEMP 36.6; O2SAT 98
[2023-04-27] MEDS: Tamsulosin HCL 0.4 MG CAPSULE PO (20:39)
[2023-04-27] MEDS: Atorvastatin Calcium 10 MG TABLET PO (20:39)
--- NOTE | 2023-04-27 20:50 | PC.NURSE ---
Patient refused Vancomycin,Dr. Beltrán notified
[2023-04-27 21:02] LABS: Glucose, Whole Blood 272 mg/dL (60-115)
--- NOTE | 2023-04-27 21:21 | PC.NURSE ---
BS 272 ,Dr. Beltrán notified
[2023-04-27] MEDS: Insulin Lispro 100 UNIT/ML 3 ML VIAL SUBCUT (21:41)
[2023-04-27] MEDS: Insulin Glargine,Hum.rec.anlog 100 UNIT/ML 10 ML VIAL SUBCUT (21:41)
[2023-04-28] VITALS (16 sets, daily range): BP systolic 100–176; BP diastolic 35–73; PULSE 75–96; RESP 16–20; TEMP 36–36.8; O2SAT 97–100; BMI 30.6
--- NOTE | 2023-04-28 04:10 | PC.NURSE ---
Pt refused his [address] Beltrán was notified.
[2023-04-28] MEDS: Omeprazole 20 MG CAPSULE.DR PO (05:48)
--- NOTE | 2023-04-28 07:41 | HE.PHANOTE ---
RE VANCO PT IS REFUSING VANCO, REFUSING LABS, AND NOW REFUSING SURGERY. PROVIDER WAS MADE AWARE BY RN. TRIED TO ASK DAY SHIFT RN IF PT WAS AGREEABLE SO I COULD RETIME AND PATIENT SAID NO MARCELLA
[2023-04-28 07:43] LABS: Glucose, Whole Blood 220 mg/dL (60-115)
[2023-04-28] MEDS: Insulin Lispro 100 UNIT/ML 3 ML VIAL SUBCUT ×3 (07:58→20:31)
[2023-04-28] MEDS: 0.9 % Sodium Chloride Flush 3 ML SYRINGE IVFLUSH ×3 (07:59→19:46)
[2023-04-28] MEDS: Ferrous Sulfate 324 MG TABLET.DR PO ×2 (08:00→19:46)
[2023-04-28] MEDS: NIFEdipine ER 60 MG TAB.ER.24 PO (08:00)
[2023-04-28] MEDS: Escitalopram Oxalate 10 MG TABLET PO (08:00)
[2023-04-28] MEDS: methADONE HCl 20 MG/2 ML ORAL.CONC 30 MG PO (08:01)
[2023-04-28 09:02] LABS: MANUAL DIFF FLAG NO
[2023-04-28 09:05] LABS: Basophils Absolute Auto 0.1 X10*3/uL (0.0-0.2); Basophils Percent Auto 0.6 % (0-2); Eosinophils Absolute Auto 0.4 X10*3/uL (0.0-0.4); Eosinophils Percent Auto 3.1 % (0-4); Hematocrit 24.2 % (42.0-52.0); Hemoglobin 7.9 g/dl (14.0-18.0); Imm Gran Abs Auto 0.05 X10*3/uL (0.00-0.03); Imm Gran Pct Auto 0.4 % (0.0-0.4); Lymphocytes Absolute Auto 1.5 X10*3/uL (1.2-4.9); Lymphocytes Percent Auto 13.3 % (20-40); Mean Corpuscular HGB Conc 32.6 g/dl (31.0-36.0); Mean Corpuscular Hemoglobin 26.6 pg (27.0-33.0); Mean Corpuscular Volume 81.5 fL (80.0-98.0); Mean Platelet Volume 9.1 fL (9.4-12.4); Monocytes Absolute Auto 0.7 X10*3/uL (0.1-1.2); Monocytes Percent Auto 6.1 % (2-11); Neutrophils Absolute Auto 8.6 x10*3/uL (2.0-8.3); Neutrophils Percent Auto 76.5 % (45-73); Platelet Count 323 X10*3/uL (160-400); Red Blood Count 2.97 X10*6/uL (4.60-5.80); Red Cell Distribution Width 15.9 % (11.0-16.0); White Blood Count 11.2 X10*3/uL (4.8-10.8)
[2023-04-28 09:18] LABS: Alanine Aminotransferase 15 U/L (0-40); Albumin Level 2.9 g/dL (3.5-5.0); Alkaline Phosphatase 112 U/L (39-117); Anion Gap 11 (12-20); Aspartate Amino Transferase 14 U/L (5-37); Bilirubin Total 0.2 mg/dL (0.0-1.0); Blood Urea Nitrogen 14 mg/dL (9-16); Calcium 9.1 mg/dL (8.4-10.2); Carbon Dioxide 25 mmol/L (22-29); Chloride 104 mmol/L (96-108); Estimated Glomerular Filt Rate > 60; Glucose Fasting 216 mg/dL (60-99); Potassium 4.1 mmol/L (3.3-5.1); Sodium 136 mmol/L (135-145); Total Protein 7.3 g/dL (6.5-8.0)
[2023-04-28] MEDS: Piperacillin Sodium/Tazobactam 4.5 GM in 0.9 % Sodium Chloride 100 ML IV ×3 (09:20→22:07)
--- NOTE | 2023-04-28 11:02 | PM.EVENT ---
Event Note Date of Service: 04/28/23 Event Note: PICC line removed at bedside. 42 cm recovered. Dry dressing applied. Patient tolerated procedure well Time Spent With Patient Time: Total time managing care of this patient today ____ minutes.
[2023-04-28 11:35] LABS: Glucose, Whole Blood 177 mg/dL (60-115)
[2023-04-28] MEDS: ondansetron HCL 4 MG/2 ML VIAL IVPUSH ×2 (12:11→19:45)
[2023-04-28] MEDS: Metoclopramide HCl 10 MG/2 ML VIAL IVPUSH (12:14)
--- NOTE | 2023-04-28 13:27 | HO.ANESPROP2 ---
HPI - Anesthesia Eval Consult details Narrative: for right foot ulcer and osteo BKA PMFSH Active Problems Active Problems: All Active Problems (Updated 04/27/23 @ 11:15 by Guy Brown MD) Diabetic ulcer of right foot (Acute) Acute on chronic anemia (Acute) Osteomyelitis (Acute) Eschar of heel (Acute) Diabetic foot infection (Acute) S/P right colectomy (Acute) Morbid obesity (Acute) Osteomyelitis (Acute) Acute kidney injury (Acute) Anemia (Acute) Normocytic anemia (Acute) Hyperglycemia due to diabetes mellitus (Acute) Status post transmetatarsal amputation of left foot (Acute) Urinary retention (Acute) Acute kidney injury superimposed on CKD (Acute) Diabetic wet gangrene of the foot (Acute) S/P transmetatarsal amputation of foot (Acute) Anemia (Acute) Painless rectal bleeding (Acute) Melena (Acute) Colon cancer (Acute) Colonic mass (Acute) PAD (peripheral artery disease) (Acute) Diabetic infection of left foot (Acute) Opioid use disorder (Acute) Past Medical History Medical History Eschar of heel Chronic kidney disease, stage 3 Acute on chronic anemia Morbid obesity Sleep apnea Colon cancer Colonic mass Migraine Anemia History of prostate cancer Fever of unknown origin Chronic anemia CKD (chronic kidney disease) Osteomyelitis Diabetes type 2, controlled PAD (peripheral artery disease) Diabetic infection of left foot Diabetes Opioid use disorder Family History Family History Mother No pertinent family history Family history of problems with anesthesia: No Surgical History Surgical History Hx of colectomy (01/20/23) S/P transmetatarsal amputation of foot History of Problems with Anesthesia: No Social History Social History Household Members: Spouse Household Members Other:: 2 Housing: Apartment Do you presently have visiting nurse or other home services: Yes Alcohol intake: never Patient Tobacco Use Status: Never used Tobacco Substance Use Type: Opiates Advance Directives Date on File: 01/11/23 service: No Current occupational status: disabled Meds Allergies Allergy/AdvReac Type Severity Reaction Status Date / Time No Known Allergies Allergy Verified 04/06/23 13:10 [No Known Allergies*] Active Medications: Current Medications Acetaminophen (Acetaminophen 325 Mg Tablet) 650 mg PO Q6H PRN PRN Reason: Pain, Mild (Pain Scale 1-3) Last Admin: 04/27/23 06:23 Dose: 650 mg Al Hydroxide/Mg Hydroxide (Magnesium Hydrox/Alum Hydrox 30 Ml Oral.Susp) 15 ml PO Q6H PRN PRN Reason: Dyspepsia Atorvastatin Calcium (Atorvastatin Calcium 10 Mg Tablet) 10 mg PO BEDTIME [facility] Last Admin: 04/27/23 20:39 Dose: 10 mg Bisacodyl (Bisacodyl 10 Mg Supp.Rect) 10 mg NV DAILY PRN PRN Reason: Constipation Dextrose (Dextrose 50 % 25 Gm/50 Ml Syringe) 25 gm IVPUSH Q15M PRN; Protocol PRN Reason: per Hypoglycemia Standing Ord. Docusate Sodium (Docusate Sodium 100 Mg Capsule) 100 mg PO DAILY PRN PRN Reason: Constipation Escitalopram Oxalate (Escitalopram Oxalate 10 Mg Tablet) 10 mg PO DAILY [facility] Last Admin: 04/28/23 08:00 Dose: 10 mg Ferrous Sulfate (Ferrous Sulfate 324 Mg Tablet.Dr) 324 mg PO BID [facility] Last Admin: 04/28/23 08:00 Dose: 324 mg Glucose (Glucose Gel 15 Gm Gel..Gram.) 15 gm PO Q15M PRN; Protocol PRN Reason: per Hypoglycemia Standing Ord. Heparin Sodium (Porcine) (Heparin Sodium,Porcine 5,000 Unit/Ml Vial) 5,000 unit SUBCUT Q12H [facility] Last Admin: 04/28/23 05:44 Dose: Not Given Hydroxyzine HCl (Hydroxyzine Hcl 10 Mg Tablet) 10 mg PO Q6H PRN PRN Reason: Anxiety Piperacillin Sod/Tazobactam (Sod 4.5 gm/ Sodium Chloride) 100 mls @ 200 mls/hr IV Q6H [facility] Last Infusion: 04/28/23 10:24 Dose: Infused Vancomycin HCl 1,000 mg/ (Sodium Chloride) 270 mls @ 270 mls/hr IV Q24H [facility] Last Admin: 04/27/23 20:43 Dose: Not Given Insulin Glargine (Insulin Glargine,Hum.Rec.Anlog 100 Unit/Ml 10 Ml Vial) 5 unit SUBCUT BEDTIME [facility] Last Admin: 04/27/23 21:41 Dose: 5 unit Insulin Human Lispro (Insulin Lispro 100 Unit/Ml 3 Ml Vial) 0 unit SUBCUT QIDACHS [facility]; Protocol Last Admin: 04/28/23 11:25 Dose: Not Given Loperamide HCl (Loperamide Hcl 2 Mg Capsule) 2 mg PO Q4H PRN PRN Reason: Loose Stool Methadone HCl (Methadone Hcl 20 Mg/2 Ml Oral.Conc) 30 mg PO DAILY [facility] Last Admin: 04/28/23 08:01 Dose: 30 mg Morphine Sulfate (Morphine Sulfate 4 Mg/Ml Cartridge) 4 mg IVPUSH Q4H PRN; Protocol PRN Reason: Pain, Severe (Pain Scale 7-10) Last Admin: 04/27/23 06:23 Dose: 4 mg Nifedipine (Nifedipine Er 60 Mg Tab.Er.24) 60 mg PO DAILY [facility]; Protocol Last Admin: 04/28/23 08:00 Dose: 60 mg Omeprazole (Omeprazole 20 Mg Capsule.Dr) 20 mg PO DAILY@0630 [facility] Last Admin: 04/28/23 05:48 Dose: 20 mg Ondansetron HCl (Ondansetron Hcl 4 Mg/2 Ml Vial) 4 mg IVPUSH Q8H PRN PRN Reason: Nausea and Vomiting Oxycodone HCl (Oxycodone Hcl Immed Release 5 Mg Tablet) 5 mg PO Q4H PRN PRN Reason: Pain, Moderate(Pain Scale 4-6) Last Admin: 04/27/23 20:40 Dose: 5 mg Pharmacy Consult (Consult Rx Vancomycin Dosing) 1 each MISCELLANE DAILY PRN PRN Reason: Consult order Polyethylene Glycol (Polyethylene Glycol 3350 17 Gm Powd.Pack) 17 gm PO DAILY PRN PRN Reason: constipation Sodium Biphosphate/Sodium Phosphate (Sodium Phosphate,Runnels-Dibasic 133 Ml Enema) 118 ml NV DAILY PRN PRN Reason: Constipation Sodium Chloride (0.9 % Sodium Chloride Flush 3 Ml Syringe) 3 ml IVFLUSH QSHIFT [facility] Last Admin: 04/28/23 07:59 Dose: 3 ml Sodium Hypochlorite (Sodium Hypochlorite 0.25% 473 Ml Solution) 1 appl TOPICAL BID [facility] Last Admin: 04/28/23 09:38 Dose: Not Given Tamsulosin HCl (Tamsulosin Hcl 0.4 Mg Capsule) 0.4 mg PO BEDTIME [facility] Last Admin: 04/27/23 20:39 Dose: 0.4 mg Home Medications Medication Instructions Recorded Confirmed Last Taken Type clopidogrel 75 mg tablet 1 tab PO DAILY 06/17/22 04/26/23 01/24/23 History methadone 10 mg/mL oral concentrate 30 mg PO DAILY 06/17/22 04/26/23 04/26/23 09:28 History tamsulosin 0.4 mg capsule 1 cap PO BEDTIME 06/17/22 04/26/23 01/24/23 History atorvastatin 10 mg tablet 10 mg PO BEDTIME 01/11/23 04/26/23 01/24/23 History citalopram 20 mg tablet 20 mg PO DAILY 01/11/23 04/26/23 01/24/23 History insulin glargine 100 unit/mL 5 unit subcut BEDTIME 01/11/23 04/26/23 01/24/23 History subcutaneous solution (Lantus U-100 Insulin) omeprazole 20 mg capsule,delayed 20 mg PO DAILY@0630 01/11/23 04/26/23 01/24/23 History release acetaminophen 325 mg tablet 650 mg PO Q4H PRN Fever 03/16/23 04/26/23 Unknown History acetaminophen 325 mg tablet 975 mg PO Q8H PRN Pain 03/16/23 04/26/23 Unknown History aluminum-mag hydroxide-simethicone 15 ml PO Q6H PRN Dyspepsia 03/16/23 04/26/23 Unknown History 200 mg-200 mg-20 mg/5 mL oral susp aspirin 81 mg chewable tablet 81 mg PO DAILY 03/16/23 04/26/23 Unknown History bisacodyl 10 mg rectal suppository 10 mg NV DAILY PRN Constipation 03/16/23 04/26/23 Unknown History ferrous sulfate 325 mg (65 mg 325 mg PO BID 03/16/23 04/26/23 Unknown History iron) tablet hydroxyzine HCl 10 mg tablet 10 mg PO Q6H PRN Anxiety 03/16/23 04/26/23 Unknown History insulin lispro 100 unit/mL 1 sliding scale dose subcut 03/16/23 04/26/23 Unknown History subcutaneous solution USEASDIRECTD loperamide 2 mg tablet (Imodium 2 mg PO Q4H PRN Loose Stool 03/16/23 04/26/23 Unknown History A-D) nifedipine 60 mg tablet,extended 60 mg PO DAILY 03/16/23 04/26/23 Unknown History release 24 hr ondansetron HCl 4 mg tablet 4 mg PO Q8H PRN Nausea 03/16/23 04/26/23 Unknown History sodium phosphates 19 gram-7 118 ml NV DAILY PRN Constipation 03/16/23 04/26/23 Unknown History gram/118 mL enema (Fleet Enema) collagenase clostridium histo. 250 1 appl topical BID 04/26/23 04/26/23 Unknown History unit/gram topical ointment (Santyl) sodium hypochlorite 0.25 % 1 irrig topical BID 04/26/23 04/26/23 Unknown History solution (Dakin's Solution) vancomycin 750 mg/250 mL in 0.9 % 750 mg IV Q24H 04/26/23 04/26/23 04/25/23 20:00 History sodium chloride intravenous solution Exam Exam Date and Time: April 28, 2023 132 Height,Weight and Vital Signs: Height 5 ft 7 in Weight 98.7 kg Last Vital Signs Temp 97.9 F 04/28/23 11:42 Pulse 78 04/28/23 11:42 Resp 16 04/28/23 11:42 BP 152/71 H 04/28/23 11:42 Pulse Ox 99 04/28/23 11:42 O2 Del Method Room Air 04/28/23 11:42 Pertinent Lab Results Pertinent Lab Results: Laboratory Tests 04/26/23 04/26/23 04/26/23 15:30 16:31 18:16 WBC 14.3 H RBC 2.40 L Hgb 6.2 L* Hct 19.6 L* MCV 81.7 MCH 25.8 L MCHC 31.6 RDW 16.6 H Plt Count 335 MPV 10.2 Immature Gran % (Auto) 0.4 Neut % (Auto) 81.6 H Lymph % (Auto) 10.2 L Runnels % (Auto) 6.2 Eos % (Auto) 1.2 Baso % (Auto) 0.4 Lymph # (Auto) 1.5 Runnels # (Auto) 0.9 Eos # (Auto) 0.2 Baso # (Auto) 0.1 Abs Immat Gran (auto) 0.05 H Absolute Neuts (auto) 11.7 H Absolute Nucleated RBC 0.000 Nucleated RBC % (auto) 0.0 ESR > 140 H Sodium 134 L Potassium 4.3 Chloride 103 Carbon Dioxide 25 Anion Gap 10 L BUN 21 H Creatinine 1.10 Estim Creat Clear Calc 82.9 Estimated GFR > 60 POC Glucose Random Glucose 180 H Fasting Glucose Calcium 9.0 D Magnesium 1.8 Total Bilirubin 0.2 Direct Bilirubin < 0.2 AST 11 ALT 13 Alkaline Phosphatase 107 C-Reactive Protein 18.38 H Total Protein 7.1 Albumin 2.9 L Vancomycin Trough 11.9 Blood Type AB Positive Antibody Screen NEGATIVE Crossmatch See Detail 04/26/23 04/27/23 04/27/23 22:02 06:18 20:51 WBC 15.3 H RBC 2.69 L Hgb 7.1 L Hct 22.2 L MCV 82.5 MCH 26.4 L MCHC 32.0 RDW 15.9 Plt Count 319 MPV 9.7 Immature Gran % (Auto) 0.5 H Neut % (Auto) 82.9 H Lymph % (Auto) 9.2 L Runnels % (Auto) 6.2 Eos % (Auto) 0.9 Baso % (Auto) 0.3 Lymph # (Auto) 1.4 Runnels # (Auto) 0.9 Eos # (Auto) 0.1 Baso # (Auto) 0.1 Abs Immat Gran (auto) 0.08 H Absolute Neuts (auto) 12.7 H Absolute Nucleated RBC 0.000 Nucleated RBC % (auto) 0.0 ESR Sodium 136 Potassium 4.2 Chloride 105 Carbon Dioxide 24 Anion Gap 11 L BUN 19 H Creatinine 1.10 Estim Creat Clear Calc 82.9 Estimated GFR > 60 POC Glucose 272 H Random Glucose 169 H Fasting Glucose Calcium 9.0 Magnesium Total Bilirubin 0.3 Direct Bilirubin AST 12 ALT 12 Alkaline Phosphatase 104 C-Reactive Protein Total Protein 7.0 Albumin 2.8 L Vancomycin Trough Blood Type Antibody Screen Crossmatch 04/28/23 04/28/23 04/28/23 07:23 08:54 11:31 WBC 11.2 H RBC 2.97 L Hgb 7.9 L Hct 24.2 L MCV 81.5 MCH 26.6 L MCHC 32.6 RDW 15.9 Plt Count 323 MPV 9.1 L Immature Gran % (Auto) 0.4 Neut % (Auto) 76.5 H Lymph % (Auto) 13.3 L Runnels % (Auto) 6.1 Eos % (Auto) 3.1 Baso % (Auto) 0.6 Lymph # (Auto) 1.5 Runnels # (Auto) 0.7 Eos # (Auto) 0.4 Baso # (Auto) 0.1 Abs Immat Gran (auto) 0.05 H Absolute Neuts (auto) 8.6 H Absolute Nucleated RBC 0.000 Nucleated RBC % (auto) 0.0 ESR Sodium 136 Potassium 4.1 Chloride 104 Carbon Dioxide 25 Anion Gap 11 L BUN 14 Creatinine 0.98 Estim Creat Clear Calc 93.0 Estimated GFR > 60 POC Glucose 220 H 177 H Random Glucose Fasting Glucose 216 H Calcium 9.1 Magnesium Total Bilirubin 0.2 Direct Bilirubin AST 14 ALT 15 Alkaline Phosphatase 112 C-Reactive Protein Total Protein 7.3 Albumin 2.9 L Vancomycin Trough Blood Type Antibody Screen Crossmatch Airway Mallampati Class: II TM Dist: >3cm Neck ROM: Limited Denture: Upper and Lower Heart: rrr Lungs: cta Assessment and Plan Assessment Anesthesia Assessment: Anesthesia Plan Discussed and Chart Reviewed Final Anesthetic Review Family History of Problems with Anesthesia: No History of Problems with Anesthesia: No ASA Class: IV and Emergency Final Preanesthetic Review: No Changes in Pt Med Stat, Meds/Allgs Chart Reviewed, Consent Obtained/Reviewed and Anes Risks/Benef Reviewed Patient Risk: Intermediate Procedure Risk: Intermediate Anesthetic Plan Anesthetic Plan: MAC: and Regional Block Disposition: Standard PACU
--- NOTE | 2023-04-28 14:22 | P.OP_ITS ---
Operative Note Operative Note Date of Service: 04/28/23 Narrative: Operative note by [facility] Preoperative diagnosis: 1. Right lower extremity osteomyelitis 2. Diabetic foot ulcer Postoperative diagnosis: Same Procedure: 1. Right Leg below-knee amputation 2. Myodesis Surgeon:Guy Brown M.D. Assistant Property Manager: Leonard Anesthesia: General Specimens: One Drains: None Estimated blood loss:100 ml Indications:57-year-old diabetic gentleman who had a large calcaneus ulcer had undergone debridement conservative management with IV antibiotics. It continues to progress and worsen. After discussion with the medical team and Infectious Disease he now presents for below-knee amputation The patient has signed the informed consent after reviewing risks, complications, benefits, and alternatives previously discussed with the patient. The patient was given the opportunity to ask any additional questions or voice any concerns. All questions were answered to the patient's satisfaction. Procedure in detail: The patient was brought to the operating room prior to which a time-out was called for patient identification and site verification. The patient was placed in a supine position. The right lower extremity was prepped and draped in the standard surgical fashion. The intended incision site was marked. The anterior aspect of the incision was made approximately 10 cm below the right tibial tuberosity. The incision was carried through the fascia. The anterior compartment muscles were divided using electrocautery dissection. The tibia and fibula were cleared. Periosteal elevator was used to clear the periosteum from the tibia. The tibia was transected with a power reciprocating saw. This was done in a reverse hockey stick shaped cut. The fibula was transected approximately 2 in above the tibial transection site once again with a reciprocating saw. The amputation was then completed using electrocautery to create the posterior flap. The flap was debulked using electrocautery and Metzenbaum scissors. The nerve was placed on traction and ligated and divided sharply. The anterior tibial posterior tibial and peroneal vessels were or identified and tied off with 2-0 silk ties. We then performed a myodesis. In the tibia on the medial and lateral aspect using a drill holes were then created. Using 2-0 Polysorb, the muscle was then buttressed to the tibia. The wound was then closed using 2-0 poly Sorb. This was used to bring together the fascia from the posterior flap to the anterior cut. We then reapproximated the superficial layer with 3-0 poly Sorb suture. Finally skin was closed using 2-0 nylon in a mattress fashion. In addition we used skin clips. The stump was then dressed with Xeroform, Kerlix and an Jeramie wrap. The patient tolerated the procedure well. They were brought to recovery with stable vitals. At the end the case sponge needle instrument counts were correct x2. This note is constructed using voice recognition software. While every effort has been made to ensure accuracy, laminator preforms errors may have been included. Thank you for allowing me to participate in the care of your patient. Yours sincerely, Guy Brown MD, FACS, R.P.V.I.
--- NOTE | 2023-04-28 14:29 | P.PNIM_ITS ---
Subjective Subjective Date of Service: 04/28/23 Interval History: Seen this a.m.. Agreeable to surgery. Voices no complaints Review of Systems Denies chest pain Denies shortness of breath Denies nausea vomiting diarrhea Denies fever chills Physical Exam 2 Vital Signs: Vital Signs: Last Vital Signs Temp 97.1 F 04/28/23 14:25 Pulse 82 04/28/23 14:25 Resp 19 04/28/23 14:25 BP 101/59 L 04/28/23 14:25 Pulse Ox 99 04/28/23 11:42 O2 Del Method Room Air 04/28/23 11:42 BMI result Body Mass Index 34.1 Const: Other: No acute distress Resp: Other: Clear to auscultation bilaterally no rales rhonchi wheezes Cardio: Other: No S4; positive S1-S2; no S3 murmurs rubs or gallops Extrem: Other: See admission photos Objective Data Active Medications Acetaminophen (Acetaminophen 325 Mg Tablet) 650 mg PO Q6H PRN PRN Reason: Pain, Mild (Pain Scale 1-3) Last Admin: 04/27/23 06:23 Dose: 650 mg Documented By: MARCO A Al Hydroxide/Mg Hydroxide (Magnesium Hydrox/Alum Hydrox 30 Ml Oral.Susp) 15 ml PO Q6H PRN PRN Reason: Dyspepsia Atorvastatin Calcium (Atorvastatin Calcium 10 Mg Tablet) 10 mg PO BEDTIME [facility] [place] Last Admin: 04/27/23 20:39 Dose: 10 mg Documented By: BETINA Bisacodyl (Bisacodyl 10 Mg Supp.Rect) 10 mg CA DAILY PRN PRN Reason: Constipation Dextrose (Dextrose 50 % 25 Gm/50 Ml Syringe) 25 gm IVPUSH Q15M PRN; Protocol PRN Reason: per Hypoglycemia Standing Ord. Docusate Sodium (Docusate Sodium 100 Mg Capsule) 100 mg PO DAILY PRN PRN Reason: Constipation Escitalopram Oxalate (Escitalopram Oxalate 10 Mg Tablet) 10 mg PO DAILY [facility] [place] Last Admin: 04/28/23 08:00 Dose: 10 mg Documented By: KIMBERLY Ferrous Sulfate (Ferrous Sulfate 324 Mg Tablet.Dr) 324 mg PO BID [facility] [place] Last Admin: 04/28/23 08:00 Dose: 324 mg Documented By: KIMBERLY Glucose (Glucose Gel 15 Gm Gel..Gram.) 15 gm PO Q15M PRN; Protocol PRN Reason: per Hypoglycemia Standing Ord. Heparin Sodium (Porcine) (Heparin Sodium,Porcine 5,000 Unit/Ml Vial) 5,000 unit SUBCUT Q12H [facility] [place] Last Admin: 04/28/23 05:44 Dose: Not Given Documented By: CHANDLER Non-Admin Reason: possible procedure today Hydroxyzine HCl (Hydroxyzine Hcl 10 Mg Tablet) 10 mg PO Q6H PRN PRN Reason: Anxiety Piperacillin Sod/Tazobactam (Sod 4.5 gm/ Sodium Chloride) 100 mls @ 200 mls/hr IV Q6H [facility] [place] Last Infusion: 04/28/23 10:24 Dose: Infused Documented By: KIMBERLY Vancomycin HCl 1,000 mg/ (Sodium Chloride) 270 mls @ 270 mls/hr IV Q24H [facility] [place] Last Admin: 04/27/23 20:43 Dose: Not Given Documented By: BETINA Non-Admin Reason: Patient Refused Sodium Chloride (Ns) 100 mls @ 100 mls/hr IV ONCE ONE Stop: 04/28/23 15:11 Insulin Glargine (Insulin Glargine,Hum.Rec.Anlog 100 Unit/Ml 10 Ml Vial) 5 unit SUBCUT BEDTIME [facility] [place] Last Admin: 04/27/23 21:41 Dose: 5 unit Documented By: BETINA Insulin Human Lispro (Insulin Lispro 100 Unit/Ml 3 Ml Vial) 0 unit SUBCUT QIDACHS [facility] [place]; Protocol Last Admin: 04/28/23 11:25 Dose: Not Given Documented By: KIMBERLY Non-Admin Reason: in or Loperamide HCl (Loperamide Hcl 2 Mg Capsule) 2 mg PO Q4H PRN PRN Reason: Loose Stool Methadone HCl (Methadone Hcl 20 Mg/2 Ml Oral.Conc) 30 mg PO DAILY [facility] [place] Last Admin: 04/28/23 08:01 Dose: 30 mg Documented By: KIMBERLY Morphine Sulfate (Morphine Sulfate 4 Mg/Ml Cartridge) 4 mg IVPUSH Q4H PRN; Protocol PRN Reason: Pain, Severe (Pain Scale 7-10) Last Admin: 04/27/23 06:23 Dose: 4 mg Documented By: MONTERICA Nifedipine (Nifedipine Er 60 Mg Tab.Er.24) 60 mg PO DAILY [facility] [place]; Protocol Last Admin: 04/28/23 08:00 Dose: 60 mg Documented By: KIMBERLY Omeprazole (Omeprazole 20 Mg Capsule.) 20 mg PO DAILY@0630 [facility] [place] Last Admin: 04/28/23 05:48 Dose: 20 mg Documented By: CHANDLER Ondansetron HCl (Ondansetron Hcl 4 Mg/2 Ml Vial) 4 mg IVPUSH Q8H PRN PRN Reason: Nausea and Vomiting Oxycodone HCl (Oxycodone Hcl Immed Release 5 Mg Tablet) 5 mg PO Q4H PRN PRN Reason: Pain, Moderate(Pain Scale 4-6) Last Admin: 04/27/23 20:40 Dose: 5 mg Documented By: BETINA Pharmacy Consult (Consult Rx Vancomycin Dosing) 1 each MISCELLANE DAILY PRN PRN Reason: Consult order Polyethylene Glycol (Polyethylene Glycol 3350 17 Gm Powd.Pack) 17 gm PO DAILY PRN PRN Reason: constipation Sodium Biphosphate/Sodium Phosphate (Sodium Phosphate,Traverse-Dibasic 133 Ml Enema) 118 ml CA DAILY PRN PRN Reason: Constipation Sodium Chloride (0.9 % Sodium Chloride Flush 3 Ml Syringe) 3 ml IVFLUSH QSHIFT [facility] [place] Last Admin: 04/28/23 07:59 Dose: 3 ml Documented By: KIMBERLY Sodium Hypochlorite (Sodium Hypochlorite 0.25% 473 Ml Solution) 1 appl TOPICAL BID [facility] [place] Last Admin: 04/28/23 09:38 Dose: Not Given Documented By: KIMBERLY Non-Admin Reason: plan for amp Tamsulosin HCl (Tamsulosin Hcl 0.4 Mg Capsule) 0.4 mg PO BEDTIME [facility] [place] Last Admin: 04/27/23 20:39 Dose: 0.4 mg Documented By: BETINA Labs 04/28/23 08:54 04/28/23 08:54 Labs: Laboratory Results - last 24 hr 04/26/23 04/27/23 04/28/23 16:31 20:51 07:23 MCV MCH MCHC RDW Plt Count MPV Immature Gran % (Auto) Neut % (Auto) Lymph % (Auto) Traverse % (Auto) Eos % (Auto) Baso % (Auto) Lymph # (Auto) Traverse # (Auto) Eos # (Auto) Baso # (Auto) Abs Immat Gran (auto) Absolute Neuts (auto) Absolute Nucleated RBC Nucleated RBC % (auto) Anion Gap Estim Creat Clear Calc Estimated GFR POC Glucose 272 H 220 H Fasting Glucose Calcium Total Bilirubin AST ALT Alkaline Phosphatase Total Protein Albumin Blood Type AB Positive Antibody Screen NEGATIVE Crossmatch See Detail 04/28/23 04/28/23 08:54 11:31 MCV 81.5 MCH 26.6 L MCHC 32.6 RDW 15.9 Plt Count 323 MPV 9.1 L Immature Gran % (Auto) 0.4 Neut % (Auto) 76.5 H Lymph % (Auto) 13.3 L Traverse % (Auto) 6.1 Eos % (Auto) 3.1 Baso % (Auto) 0.6 Lymph # (Auto) 1.5 Traverse # (Auto) 0.7 Eos # (Auto) 0.4 Baso # (Auto) 0.1 Abs Immat Gran (auto) 0.05 H Absolute Neuts (auto) 8.6 H Absolute Nucleated RBC 0.000 Nucleated RBC % (auto) 0.0 Anion Gap 11 L Estim Creat Clear Calc 93.0 Estimated GFR > 60 POC Glucose 177 H Fasting Glucose 216 H Calcium 9.1 Total Bilirubin 0.2 AST 14 ALT 15 Alkaline Phosphatase 112 Total Protein 7.3 Albumin 2.9 L Blood Type Antibody Screen Crossmatch Assessment and Plan (1) Diabetic infection of left foot: Status: Acute (2) PAD (peripheral artery disease): Status: Acute Plan 57-year-old male with history of chronic normocytic anemia, insulin-dependent type 2 diabetes, chronic kidney disease stage III, history of opiate use disorder on methadone patient denies recent use, peripheral artery disease on DAPT, with history of osteomyelitis s/p left TMA 05/29 and recent admission from 03/16- for osteomyelitis R heel, discharged on IV vanco 1 g with last dose scheduled for 04/27 admitted for non healing ulceration of the right calcaneus with interval osteomyelitis. 1.Nonhealing unstageable ulceration of the right calcaneus with interval osteomyelitis -vancomycin/ Zosyn(3).... DC in a.m. -status post right BKA without issue 2.Acute on chronic- anemia of chronic disease -hemoglobin stable -follow CBC 3.Insulin-dependent type 2 diabetes -hold oral glycemic -lispro correctional scale -adjust as indicated 4.CKD stage 3 -renal function baseline -follow renals/divalents 5.Opioid dependence -continue methadone 6.Hypertension -acceptable control on current therapies -adjust as indicated Heparin Full code Patient will require ongoing hospitalization for IV antibiotics to treat osteomyelitis pending amputation Time Spent With Patient Time: Total time managing care of this patient today ____ minutes. Quality Stroke Does the patient have a stroke diagnosis?: No VTE Prior VTE?: No VTE Risk Level:: Medical - moderate - high VTE Device Contraindication: Treatment Not Indicated VTE Drug Contraindication: N/A - Med Ordered
[2023-04-28] MEDS: Heparin Sodium,Porcine 5,000 UNIT/ML VIAL 5000 UNIT SUBCUT (16:06)
[2023-04-28 16:07] LABS: Glucose, Whole Blood 230 mg/dL (60-115)
[2023-04-28] MEDS: Morphine Sulfate 4 MG/ML CARTRIDGE IVPUSH (18:24)
[2023-04-28 18:41] LABS: Hematocrit 22.7 % (42.0-52.0); Hemoglobin 7.5 g/dl (14.0-18.0)
[2023-04-28 18:53] LABS: Vancomycin Trough 7.4 mcg/mL (10.0-20.0)
--- NOTE | 2023-04-28 19:14 | HE.PHANOTE ---
Addendum entered by Natacha Chavez [facility] 04/28/23 19:34: Contacted nurse Luly, she re-weighed patient and reported 88.6kg. Updated weight in insight Original Note: RE: vanco Trough on 04/28 came back at 7.4mg/L. Dose was not given 04/27 due to patient refusal. Increased dose to 1250mg Q24H with predicted AUC of 435 mg/L, trough of 13.3mg/L. Patient did have below knee amputation, requested nurse to update weight. Will need to be updated in insight once complete. Next level to be drawn after 3 doses 05/01/23 @1800. Will adjust as necessary.
[2023-04-28] MEDS: Acetaminophen 325 MG TABLET 650 MG PO (19:45)
[2023-04-28] MEDS: Atorvastatin Calcium 10 MG TABLET PO (19:46)
[2023-04-28] MEDS: hydrOXYzine HCL 10 MG TABLET PO (19:46)
[2023-04-28] MEDS: oxyCODONE HCl Immed Release 5 MG TABLET PO (19:46)
[2023-04-28] MEDS: vancomycin HCL 1,250 MG in 0.9 % Sodium Chloride 250 ML 166.67 MG IV (19:46)
[2023-04-28] MEDS: Tamsulosin HCL 0.4 MG CAPSULE PO (19:46)
[2023-04-28 20:05] LABS: Glucose, Whole Blood 263 mg/dL (60-115)
[2023-04-28] MEDS: Insulin Glargine,Hum.rec.anlog 100 UNIT/ML 10 ML VIAL SUBCUT (20:31)
[2023-04-28] MEDS: Docusate Sodium 100 MG CAPSULE PO (21:10)
[2023-04-29] VITALS (15 sets, daily range): BP systolic 113–156; BP diastolic 58–81; PULSE 82–97; RESP 16–20; TEMP -12.4–36.9; O2SAT 96–100
[2023-04-29] MEDS: Morphine Sulfate 4 MG/ML CARTRIDGE IVPUSH ×5 (01:06→22:52)
[2023-04-29] MEDS: Piperacillin Sodium/Tazobactam 4.5 GM in 0.9 % Sodium Chloride 100 ML IV ×4 (03:20→21:38)
[2023-04-29] MEDS: oxyCODONE HCl Immed Release 5 MG TABLET PO ×4 (03:22→21:48)
[2023-04-29] MEDS: Acetaminophen 325 MG TABLET 650 MG PO ×3 (03:22→21:48)
[2023-04-29] MEDS: hydrOXYzine HCL 10 MG TABLET PO (03:22)
[2023-04-29] MEDS: Omeprazole 20 MG CAPSULE.DR PO (06:14)
[2023-04-29] MEDS: Heparin Sodium,Porcine 5,000 UNIT/ML VIAL 5000 UNIT SUBCUT ×2 (06:14→16:34)
[2023-04-29 06:25] LABS: MANUAL DIFF FLAG NO
[2023-04-29 06:46] LABS: Alanine Aminotransferase 12 U/L (0-40); Albumin Level 2.7 g/dL (3.5-5.0); Alkaline Phosphatase 87 U/L (39-117); Anion Gap 11 (12-20); Aspartate Amino Transferase 13 U/L (5-37); Bilirubin Total 0.2 mg/dL (0.0-1.0); Blood Urea Nitrogen 24 mg/dL (9-16); Calcium 8.6 mg/dL (8.4-10.2); Carbon Dioxide 26 mmol/L (22-29); Chloride 106 mmol/L (96-108); Creatinine Clr Calc Pharmacy 61.3; Estimated Glomerular Filt Rate 52; Glucose Fasting 241 mg/dL (60-99); Potassium 4.5 mmol/L (3.3-5.1); Sodium 138 mmol/L (135-145); Total Protein 6.4 g/dL (6.5-8.0)
[2023-04-29 06:57] LABS: Basophils Percent Auto 0.2 % (0-2); Eosinophils Percent Auto 0.2 % (0-4); Imm Gran Pct Auto 0.8 % (0.0-0.4); Lymphocytes Absolute Auto 1.6 X10*3/uL (1.2-4.9); Lymphocytes Percent Auto 12.9 % (20-40); Mean Corpuscular HGB Conc 32.3 g/dl (31.0-36.0); Mean Corpuscular Hemoglobin 27.4 pg (27.0-33.0); Mean Corpuscular Volume 84.8 fL (80.0-98.0); Mean Platelet Volume 10.2 fL (9.4-12.4); Monocytes Percent Auto 7.9 % (2-11); Neutrophils Absolute Auto 9.9 x10*3/uL (2.0-8.3); Platelet Count 319 X10*3/uL (160-400); Red Cell Distribution Width 15.9 % (11.0-16.0); White Blood Count 12.7 X10*3/uL (4.8-10.8)
[2023-04-29 07:03] LABS: Hemoglobin 6.3 g/dl (14.0-18.0)
[2023-04-29 07:04] LABS: Hematocrit 19.5 % (42.0-52.0)
--- NOTE | 2023-04-29 07:21 | HE.PHANOTE ---
RE SHANTANU SCR WAS 1.41 TODAY, COULD BE DUE TO SCR INCREASE THAT NORMALLY HAPPENS AFTER SURGERY. WILL KEEP SAME DOSE, EVEN THOUGH IT STATES THAT EVENTUALLY AT STEADY STATE AUC WILL BE 610. I WILL BE CHANGING THE TROUGH TO 04/30 @1800 JUST TO MONITOR FOR EFFICACY MARCELLA
[2023-04-29 07:53] LABS: Glucose, Whole Blood 222 mg/dL (60-115)
[2023-04-29] MEDS: Ferrous Sulfate 324 MG TABLET.DR PO ×2 (08:03→19:39)
[2023-04-29] MEDS: NIFEdipine ER 60 MG TAB.ER.24 PO (08:03)
[2023-04-29] MEDS: Escitalopram Oxalate 10 MG TABLET PO (08:03)
[2023-04-29] MEDS: 0.9 % Sodium Chloride Flush 3 ML SYRINGE IVFLUSH ×3 (08:04→19:40)
[2023-04-29] MEDS: Furosemide 20 MG/2 ML VIAL IVPUSH (08:04)
[2023-04-29] MEDS: Insulin Lispro 100 UNIT/ML 3 ML VIAL SUBCUT ×4 (08:04→21:12)
[2023-04-29] MEDS: methADONE HCl 20 MG/2 ML ORAL.CONC 30 MG PO (08:04)
--- NOTE | 2023-04-29 10:20 | HO.VASCPN ---
Subjective Subjective Date of Service: 04/29/23 Patient reports: no new complaints and feels better Interval history: Very pleasant 57-year-old gentleman postop day 1 status post right BKA. Overall appears to be doing relatively well. Pain well controlled. He did have some bleeding during the operation. Was transfused 1 unit of blood yesterday secondary to anemia acute blood loss. In addition hemoglobin is low this morning. Now for postoperative follow-up. Physical Exam Vital Signs: Vital Signs: Last Vital Signs Temp 97.4 F 04/29/23 09:28 Pulse 86 04/29/23 09:28 Resp 16 04/29/23 09:28 BP 122/59 L 04/29/23 09:28 Pulse Ox 98 04/29/23 08:00 O2 Del Method Room Air 04/29/23 08:00 O2 Flow Rate 2.0 04/28/23 19:56 BMI result Body Mass Index 30.6 Const: General: cooperative, healthy appearing and no acute distress Orientation/consciousness: oriented to person, oriented to place and oriented to time HEENT: Head: Yes normal to inspection Neck: Carotids: no bruits Chest: Chest palpation & inspection: normal inspection of the chest Resp: Effort & Inspection: normal respiratory effort and able to speak in complete sentences Auscultation: clear to auscultation bilaterally Cardio: Rate: regular rate Heart sounds: S1 normal heart sound present and S2 normal heart sound present GI: Inspection: Yes normal to inspection Skin: Other: Amputation site dressing clean dry intact General skin exam: no rashes or lesions noted Wounds: no wounds Neuro: General: oriented to person, oriented to place, oriented to time and CN's II-XI intact bilaterally Extrem: General: Yes normal to inspection, Yes full ROM and Yes no clubbing, cyanosis or edema Psych: Appearance: grossly normal and well kempt Speech and movement: Normal speech and movement present Affect: normal affect Progress Note: A&P Assessment and plan (1) Status post below knee amputation of right lower extremity: Status: Acute Assessment and Plan: In short patient is doing extremely well status post BKA. Will require transfusions as needed. Will plan for dressing change on Tuesday. If stable may require rehab as early as Tuesday. Thank you for allowing us to assist in his care. Time Spent With Patient Time: Total time managing care of this patient today ____ minutes. Procedures Date of Service Date of Service: 04/29/23 Quality Stroke Does the patient have a stroke diagnosis?: No VTE Prior VTE?: No VTE Risk Level:: Medical - moderate - high VTE Device Contraindication: Treatment Not Indicated VTE Drug Contraindication: N/A - Med Ordered
--- NOTE | 2023-04-29 11:10 | PC.NURSE ---
NEED A NEW BLOOD CONSENT,SUR[facility] AT NOON,DR. CHINCHILLA NOTIFIED
--- NOTE | 2023-04-29 11:25 | HO.POSTANES ---
Post Anesthesia Evaluation Post Anesthesia Evaluation Date of Service: 04/29/23 Vital Signs: Vital Signs Temp Pulse Resp BP Pulse Ox O2 Del Method 04/29/23 09:28 97.4 F 86 16 122/59 L 04/29/23 08:00 97.5 F 82 18 134/67 98 Room Air 04/29/23 03:17 97 F 84 17 113/58 L 96 Room Air 04/29/23 00:00 97.2 F 86 18 131/70 98 Room Air Anesthesia: Monitored and Nerve Block Mental Status: Awake Pain Control: Satisfactory Nausea/Vomiting: None Hydration: Adequate Anesthesia-Related Issues: No Anes. Related Issues
[2023-04-29 11:46] LABS: Glucose, Whole Blood 247 mg/dL (60-115)
[2023-04-29] MEDS: Docusate Sodium 100 MG CAPSULE PO (13:17)
--- NOTE | 2023-04-29 14:53 | MHC.CM.PN ---
EMR REVIEWED AND PER MD ROUNDS, PT IS NOT MEDICALLY CLEARED FOR DC. POD #1 RIGHT BKA. VANTAGE DAISY HAMILTON UPDATED. CM WILL CONTINUE TO FOLLOW FOR ANY CHANGE IN DC PLAN/NEEDS
--- NOTE | 2023-04-29 16:27 | PC.NURSE ---
BS 409,patient ate food from home earlier,Dr. Hood notified
[2023-04-29 16:28] LABS: Glucose, Whole Blood 409 mg/dL (60-115)
--- NOTE | 2023-04-29 16:48 | HO.PM.IMPN ---
Subjective Subjective Date of Service: 04/29/23 Interval History: Receive 2 units of packed red cells this morning without issue. Doing well postoperatively. Pain control adequate Review of Systems Denies chest pain Denies shortness of breath Denies nausea vomiting diarrhea Denies fever chills Physical Exam Vital Signs: Vital Signs: Last Vital Signs Temp 98.1 F 04/29/23 16:40 Pulse 85 04/29/23 16:40 Resp 20 04/29/23 16:40 BP 152/70 H 04/29/23 16:40 Pulse Ox 99 04/29/23 16:00 O2 Del Method Room Air 04/29/23 13:28 O2 Flow Rate 2.0 04/28/23 19:56 BMI result Body Mass Index 30.6 Const: Other: No acute distress Resp: Other: Clear to auscultation bilaterally no rales rhonchi wheezes Cardio: Other: No S4; positive S1-S2; no S3 murmurs rubs or gallops Extrem: Other: See admission photos Objective Data Active Medications Acetaminophen (Acetaminophen 325 Mg Tablet) 650 mg PO Q6H PRN PRN Reason: Pain, Mild (Pain Scale 1-3) Last Admin: 04/29/23 14:21 Dose: 650 mg Documented By: BETINA Al Hydroxide/Mg Hydroxide (Magnesium Hydrox/Alum Hydrox 30 Ml Oral.Susp) 15 ml PO Q6H PRN PRN Reason: Dyspepsia Atorvastatin Calcium (Atorvastatin Calcium 10 Mg Tablet) 10 mg PO BEDTIME [facility] Last Admin: 04/28/23 19:46 Dose: 10 mg Documented By: JAYLAN Bisacodyl (Bisacodyl 10 Mg Supp.Rect) 10 mg [place] DAILY PRN PRN Reason: Constipation Dextrose (Dextrose 50 % 25 Gm/50 Ml Syringe) 25 gm IVPUSH Q15M PRN; Protocol PRN Reason: per Hypoglycemia Standing Ord. Docusate Sodium (Docusate Sodium 100 Mg Capsule) 100 mg PO DAILY PRN PRN Reason: Constipation Last Admin: 04/29/23 13:17 Dose: 100 mg Documented By: BETINA Escitalopram Oxalate (Escitalopram Oxalate 10 Mg Tablet) 10 mg PO DAILY [facility] Last Admin: 04/29/23 08:03 Dose: 10 mg Documented By: ABHAY Ferrous Sulfate (Ferrous Sulfate 324 Mg Tablet.) 324 mg PO BID [facility] Last Admin: 04/29/23 08:03 Dose: 324 mg Documented By: ABHAY Glucose (Glucose Gel 15 Gm Gel..Gram.) 15 gm PO Q15M PRN; Protocol PRN Reason: per Hypoglycemia Standing Ord. Heparin Sodium (Porcine) (Heparin Sodium,Porcine 5,000 Unit/Ml Vial) 5,000 unit SUBCUT Q12H [facility] Last Admin: 04/29/23 16:34 Dose: 5,000 unit Documented By: BETINA Hydroxyzine HCl (Hydroxyzine Hcl 10 Mg Tablet) 10 mg PO Q6H PRN PRN Reason: Anxiety Last Admin: 04/29/23 03:22 Dose: 10 mg Documented By: JAYLAN Piperacillin Sod/Tazobactam (Sod 4.5 gm/ Sodium Chloride) 100 mls @ 200 mls/hr IV Q6H [facility] Last Admin: 04/29/23 16:15 Dose: 200 mls/hr Documented By: BETINA Vancomycin HCl 1,250 mg/ (Sodium Chloride) 250 mls @ 166.667 mls/hr IV Q24H [facility] Last Infusion: 04/28/23 21:38 Dose: Infused Documented By: JAYLAN Insulin Glargine (Insulin Glargine,Hum.Rec.Anlog 100 Unit/Ml 10 Ml Vial) 5 unit SUBCUT BEDTIME [facility] Last Admin: 04/28/23 20:31 Dose: 5 unit Documented By: JAYLAN Insulin Human Lispro (Insulin Lispro 100 Unit/Ml 3 Ml Vial) 0 unit SUBCUT QIDACHS [facility]; Protocol Last Admin: 04/29/23 16:35 Dose: 10 unit Documented By: BETINA Loperamide HCl (Loperamide Hcl 2 Mg Capsule) 2 mg PO Q4H PRN PRN Reason: Loose Stool Methadone HCl (Methadone Hcl 20 Mg/2 Ml Oral.Conc) 30 mg PO DAILY [facility] Last Admin: 04/29/23 08:04 Dose: 30 mg Documented By: ABHAY Morphine Sulfate (Morphine Sulfate 4 Mg/Ml Cartridge) 4 mg IVPUSH Q4H PRN; Protocol PRN Reason: Pain, Severe (Pain Scale 7-10) Last Admin: 04/29/23 14:20 Dose: 4 mg Documented By: BETINA Nifedipine (Nifedipine Er 60 Mg Tab.Er.24) 60 mg PO DAILY [facility]; Protocol Last Admin: 04/29/23 08:03 Dose: 60 mg Documented By: ABHAY Omeprazole (Omeprazole 20 Mg Capsule.) 20 mg PO DAILY@0630 [facility] Last Admin: 04/29/23 06:14 Dose: 20 mg Documented By: JAYLAN Ondansetron HCl (Ondansetron Hcl 4 Mg/2 Ml Vial) 4 mg IVPUSH Q8H PRN PRN Reason: Nausea and Vomiting Last Admin: 04/28/23 19:45 Dose: 4 mg Documented By: JAYLAN Oxycodone HCl (Oxycodone Hcl Immed Release 5 Mg Tablet) 5 mg PO Q4H PRN PRN Reason: Pain, Moderate(Pain Scale 4-6) Last Admin: 04/29/23 15:43 Dose: 5 mg Documented By: BETINA Pharmacy Consult (Consult Rx Vancomycin Dosing) 1 each [place] DAILY PRN PRN Reason: Consult order Polyethylene Glycol (Polyethylene Glycol 3350 17 Gm Powd.Pack) 17 gm PO DAILY PRN PRN Reason: constipation Sodium Biphosphate/Sodium Phosphate (Sodium Phosphate,[place]-Dibasic 133 Ml Enema) 118 ml [place] DAILY PRN PRN Reason: Constipation Sodium Chloride (0.9 % Sodium Chloride Flush 3 Ml Syringe) 3 ml IVFLUSH QSHIFT [facility] Last Admin: 04/29/23 16:19 Dose: 3 ml Documented By: BETINA Sodium Hypochlorite (Sodium Hypochlorite 0.25% 473 Ml Solution) 1 appl TOPICAL BID [facility] Last Admin: 04/29/23 08:05 Dose: 1 appl Documented By: ABHAY Tamsulosin HCl (Tamsulosin Hcl 0.4 Mg Capsule) 0.4 mg PO BEDTIME [facility] Last Admin: 04/28/23 19:46 Dose: 0.4 mg Documented By: JAYLAN Labs 04/29/23 06:05 04/29/23 06:05 Labs: Laboratory Results - last 24 hr 04/26/23 04/28/23 04/28/23 16:31 18:22 20:02 MCV MCH MCHC RDW Plt Count MPV Immature Gran % (Auto) Neut % (Auto) Lymph % (Auto) [place] % (Auto) Eos % (Auto) Baso % (Auto) Lymph # (Auto) [place] # (Auto) Eos # (Auto) Baso # (Auto) Abs Immat Gran (auto) Absolute Neuts (auto) Absolute Nucleated RBC Nucleated RBC % (auto) Anion Gap Estim Creat Clear Calc Estimated GFR POC Glucose 263 H Fasting Glucose Calcium Total Bilirubin AST ALT Alkaline Phosphatase Total Protein Albumin Vancomycin Trough 7.4 L Blood Type AB Positive Antibody Screen NEGATIVE Crossmatch See Detail 04/29/23 04/29/23 04/29/23 06:05 07:33 11:31 MCV 84.8 MCH 27.4 MCHC 32.3 RDW 15.9 Plt Count 319 MPV 10.2 Immature Gran % (Auto) 0.8 H Neut % (Auto) 78.0 H Lymph % (Auto) 12.9 L [place] % (Auto) 7.9 Eos % (Auto) 0.2 Baso % (Auto) 0.2 Lymph # (Auto) 1.6 [place] # (Auto) 1.0 Eos # (Auto) 0.0 Baso # (Auto) 0.0 Abs Immat Gran (auto) 0.10 H Absolute Neuts (auto) 9.9 H Absolute Nucleated RBC 0.000 Nucleated RBC % (auto) 0.0 Anion Gap 11 L Estim Creat Clear Calc 61.3 Estimated GFR 52 POC Glucose 222 H 247 H Fasting Glucose 241 H Calcium 8.6 Total Bilirubin 0.2 AST 13 ALT 12 Alkaline Phosphatase 87 Total Protein 6.4 L Albumin 2.7 L Vancomycin Trough Blood Type Antibody Screen Crossmatch 04/29/23 16:24 MCV MCH MCHC RDW Plt Count MPV Immature Gran % (Auto) Neut % (Auto) Lymph % (Auto) [place] % (Auto) Eos % (Auto) Baso % (Auto) Lymph # (Auto) [place] # (Auto) Eos # (Auto) Baso # (Auto) Abs Immat Gran (auto) Absolute Neuts (auto) Absolute Nucleated RBC Nucleated RBC % (auto) Anion Gap Estim Creat Clear Calc Estimated GFR POC Glucose 409 H* Fasting Glucose Calcium Total Bilirubin AST ALT Alkaline Phosphatase Total Protein Albumin Vancomycin Trough Blood Type Antibody Screen Crossmatch Assessment and Plan (1) Status post below knee amputation of right lower extremity: Status: Acute (2) Anemia: Status: Acute (3) Diabetes type 2, controlled: Status: Acute Plan 57-year-old male with history of chronic normocytic anemia, insulin-dependent type 2 diabetes, chronic kidney disease stage III, history of opiate use disorder on methadone patient denies recent use, peripheral artery disease on DAPT, with history of osteomyelitis s/p left TMA 05/29 and recent admission from 03/16- for osteomyelitis R heel, discharged on IV vanco 1 g with last dose scheduled for 04/27 admitted for non healing ulceration of the right calcaneus with interval osteomyelitis. 1. Status post [id number] amputation of right lower extremity -vancomycin/ Zosyn(4).... If afebrile 24 hours will DC in a.m. -status post right BKA without issue 2.Acute on chronic- anemia of chronic disease -transfuse 2 units packed red cells for hemoglobin of 6 this a.m. -no issues with transfuse -follow CBC 3.Insulin-dependent type 2 diabetes -hold oral glycemic -lispro correctional scale -adjust as indicated 4.CKD stage 3 -renal function baseline -follow renals/divalents 5.Opioid dependence -continue methadone 6.Hypertension -acceptable control on current therapies -adjust as indicated Heparin Full code Patient will require ongoing hospitalization for IV antibiotics to treat osteomyelitis pending amputation Time Spent With Patient Time: Total time managing care of this patient today ____ minutes. Quality Stroke Does the patient have a stroke diagnosis?: No VTE Prior VTE?: No VTE Risk Level:: Medical - moderate - high VTE Device Contraindication: Treatment Not Indicated VTE Drug Contraindication: N/A - Med Ordered
[2023-04-29] MEDS: vancomycin HCL 1,250 MG in 0.9 % Sodium Chloride 250 ML 166.67 MG IV (19:39)
[2023-04-29] MEDS: Atorvastatin Calcium 10 MG TABLET PO (19:39)
[2023-04-29 20:03] LABS: Glucose, Whole Blood 342 mg/dL (60-115)
[2023-04-29] MEDS: Tamsulosin HCL 0.4 MG CAPSULE PO (21:12)
[2023-04-29] MEDS: Insulin Glargine,Hum.rec.anlog 100 UNIT/ML 10 ML VIAL SUBCUT (21:12)
--- NOTE | 2023-04-29 22:30 | PC.NURSE ---
Addendum entered by Sanjana Santos RN 04/29/23 23:05: Pt c/o 05/17 on right leg post amputee even after prn Oxycodone and Tylenol, and an hour early to give prn Morphine IV, Dr. Beltrán was updated, Dr. Beltrán ordered to give morphine right early. Morphine 4 mg IV given. pt verbalized mid relief few minutes after. Original Note: IV line present on LAC G#20 and RHand G#22, both area are benign and asymptomatic.
[2023-04-30 03:43] VITALS: PULSE 89; RESP 16; TEMP 36; O2SAT 97
[2023-04-30] MEDS: Piperacillin Sodium/Tazobactam 4.5 GM in 0.9 % Sodium Chloride 100 ML IV ×4 (03:54→22:01)
[2023-04-30] MEDS: Omeprazole 20 MG CAPSULE.DR PO (05:39)
[2023-04-30] MEDS: Heparin Sodium,Porcine 5,000 UNIT/ML VIAL 5000 UNIT SUBCUT ×2 (05:39→16:46)
[2023-04-30 06:42] LABS: MANUAL DIFF FLAG NO
[2023-04-30 06:44] LABS: Basophils Absolute Auto 0.1 X10*3/uL (0.0-0.2); Basophils Percent Auto 0.5 % (0-2); Eosinophils Absolute Auto 0.3 X10*3/uL (0.0-0.4); Eosinophils Percent Auto 2.7 % (0-4); Hematocrit 23.3 % (42.0-52.0); Hemoglobin 7.7 g/dl (14.0-18.0); Imm Gran Pct Auto 0.9 % (0.0-0.4); Lymphocytes Absolute Auto 2.2 X10*3/uL (1.2-4.9); Lymphocytes Percent Auto 20.7 % (20-40); Mean Corpuscular Hemoglobin 28.6 pg (27.0-33.0); Mean Corpuscular Volume 86.6 fL (80.0-98.0); Mean Platelet Volume 9.8 fL (9.4-12.4); Monocytes Percent Auto 9.3 % (2-11); Neutrophils Absolute Auto 7.1 x10*3/uL (2.0-8.3); Neutrophils Percent Auto 65.9 % (45-73); Platelet Count 280 X10*3/uL (160-400); Red Blood Count 2.69 X10*6/uL (4.60-5.80); Red Cell Distribution Width 15.7 % (11.0-16.0); White Blood Count 10.7 X10*3/uL (4.8-10.8)
[2023-04-30 06:58] LABS: Alanine Aminotransferase 12 U/L (0-40); Albumin Level 2.7 g/dL (3.5-5.0); Alkaline Phosphatase 77 U/L (39-117); Anion Gap 13 (12-20); Aspartate Amino Transferase 15 U/L (5-37); Bilirubin Total 0.3 mg/dL (0.0-1.0); Blood Urea Nitrogen 16 mg/dL (9-16); Calcium 8.4 mg/dL (8.4-10.2); Carbon Dioxide 24 mmol/L (22-29); Chloride 104 mmol/L (96-108); Creatinine Clr Calc Pharmacy 72.7; Estimated Glomerular Filt Rate > 60; Glucose Fasting 239 mg/dL (60-99); Potassium 3.8 mmol/L (3.3-5.1); Sodium 137 mmol/L (135-145); Total Protein 6.5 g/dL (6.5-8.0)
[2023-04-30 06:59] VITALS: BP 156/74; PULSE 85; RESP 17; TEMP 36.6; O2SAT 98
[2023-04-30 07:20] LABS: Glucose, Whole Blood 226 mg/dL (60-115)
[2023-04-30] MEDS: methADONE HCl 20 MG/2 ML ORAL.CONC 30 MG PO (08:27)
[2023-04-30] MEDS: 0.9 % Sodium Chloride Flush 3 ML SYRINGE IVFLUSH ×3 (08:27→20:23)
[2023-04-30] MEDS: Escitalopram Oxalate 10 MG TABLET PO (08:27)
[2023-04-30] MEDS: Insulin Lispro 100 UNIT/ML 3 ML VIAL SUBCUT ×4 (08:27→20:23)
[2023-04-30] MEDS: Ferrous Sulfate 324 MG TABLET.DR PO ×2 (08:27→20:23)
[2023-04-30] MEDS: NIFEdipine ER 60 MG TAB.ER.24 PO (08:27)
[2023-04-30] MEDS: oxyCODONE HCl Immed Release 5 MG TABLET PO (09:00)
[2023-04-30] MEDS: Loperamide HCl 2 MG CAPSULE PO (10:15)
[2023-04-30 11:12] LABS: Glucose, Whole Blood 250 mg/dL (60-115)
--- NOTE | 2023-04-30 13:22 | P.PNIM_ITS ---
Subjective Subjective Date of Service: 04/30/23 Interval History: Doing well postop. Pain control adequate Review of Systems Denies chest pain Denies shortness of breath Denies nausea vomiting diarrhea Denies fever chills Physical Exam 2 Vital Signs: Vital Signs: Last Vital Signs Temp 98 F 04/30/23 06:59 Pulse 85 04/30/23 06:59 Resp 17 04/30/23 06:59 BP 156/74 H 04/30/23 06:59 Pulse Ox 98 04/30/23 06:59 O2 Del Method Room Air 04/30/23 06:59 O2 Flow Rate 2.0 04/28/23 19:56 BMI result Body Mass Index 30.6 Const: Other: No acute distress Resp: Other: Clear to auscultation bilaterally no rales rhonchi wheezes Cardio: Other: No S4; positive S1-S2; no S3 murmurs rubs or gallops Extrem: Other: See admission photos Objective Data Active Medications Acetaminophen (Acetaminophen 325 Mg Tablet) 650 mg PO Q6H PRN PRN Reason: Pain, Mild (Pain Scale 1-3) Last Admin: 04/29/23 21:48 Dose: 650 mg Documented By: HAZEL Al Hydroxide/Mg Hydroxide (Magnesium Hydrox/Alum Hydrox 30 Ml Oral.Susp) 15 ml PO Q6H PRN PRN Reason: Dyspepsia Atorvastatin Calcium (Atorvastatin Calcium 10 Mg Tablet) 10 mg PO BEDTIME [facility] Last Admin: 04/29/23 19:39 Dose: 10 mg Documented By: HAZEL Bisacodyl (Bisacodyl 10 Mg Supp.Rect) 10 mg [place] DAILY PRN PRN Reason: Constipation Dextrose (Dextrose 50 % 25 Gm/50 Ml Syringe) 25 gm IVPUSH Q15M PRN; Protocol PRN Reason: per Hypoglycemia Standing Ord. Docusate Sodium (Docusate Sodium 100 Mg Capsule) 100 mg PO DAILY PRN PRN Reason: Constipation Last Admin: 04/29/23 13:17 Dose: 100 mg Documented By: BETINA Escitalopram Oxalate (Escitalopram Oxalate 10 Mg Tablet) 10 mg PO DAILY [facility] Last Admin: 04/30/23 08:27 Dose: 10 mg Documented By: ABHAY Ferrous Sulfate (Ferrous Sulfate 324 Mg Tablet.) 324 mg PO BID [facility] Last Admin: 04/30/23 08:27 Dose: 324 mg Documented By: ABHAY Glucose (Glucose Gel 15 Gm Gel..Gram.) 15 gm PO Q15M PRN; Protocol PRN Reason: per Hypoglycemia Standing Ord. Heparin Sodium (Porcine) (Heparin Sodium,Porcine 5,000 Unit/Ml Vial) 5,000 unit SUBCUT Q12H [facility] Last Admin: 04/30/23 05:39 Dose: 5,000 unit Documented By: HAZEL Hydroxyzine HCl (Hydroxyzine Hcl 10 Mg Tablet) 10 mg PO Q6H PRN PRN Reason: Anxiety Last Admin: 04/29/23 03:22 Dose: 10 mg Documented By: JAYLAN Piperacillin Sod/Tazobactam (Sod 4.5 gm/ Sodium Chloride) 100 mls @ 200 mls/hr IV Q6H [facility] Last Infusion: 04/30/23 10:01 Dose: Infused Documented By: ABHAY Vancomycin HCl 1,250 mg/ (Sodium Chloride) 250 mls @ 166.667 mls/hr IV Q24H [facility] Last Infusion: 04/29/23 21:25 Dose: Infused Documented By: HAZEL Insulin Glargine (Insulin Glargine,Hum.Rec.Anlog 100 Unit/Ml 10 Ml Vial) 5 unit SUBCUT BEDTIME [facility] Last Admin: 04/29/23 21:12 Dose: 5 unit Documented By: HAZEL Insulin Human Lispro (Insulin Lispro 100 Unit/Ml 3 Ml Vial) 0 unit SUBCUT QIDACHS [facility]; Protocol Last Admin: 04/30/23 11:40 Dose: 4 unit Documented By: ABHAY Loperamide HCl (Loperamide Hcl 2 Mg Capsule) 2 mg PO Q4H PRN PRN Reason: Loose Stool Last Admin: 04/30/23 10:15 Dose: 2 mg Documented By: ABHAY Methadone HCl (Methadone Hcl 20 Mg/2 Ml Oral.Conc) 30 mg PO DAILY [facility] Last Admin: 04/30/23 08:27 Dose: 30 mg Documented By: ABHAY Morphine Sulfate (Morphine Sulfate 4 Mg/Ml Cartridge) 4 mg IVPUSH Q4H PRN; Protocol PRN Reason: Pain, Severe (Pain Scale 7-10) Last Admin: 04/29/23 22:52 Dose: 4 mg Documented By: HAZEL Comments: Dr. Beltrán ordered to give med an hour early as pt pain level is still 10/10 Nifedipine (Nifedipine Er 60 Mg Tab.Er.24) 60 mg PO DAILY [facility]; Protocol Last Admin: 04/30/23 08:27 Dose: 60 mg Documented By: ABAHY Omeprazole (Omeprazole 20 Mg Capsule.) 20 mg PO DAILY@0630 [facility] Last Admin: 04/30/23 05:39 Dose: 20 mg Documented By: HAZEL Ondansetron HCl (Ondansetron Hcl 4 Mg/2 Ml Vial) 4 mg IVPUSH Q8H PRN PRN Reason: Nausea and Vomiting Last Admin: 04/28/23 19:45 Dose: 4 mg Documented By: JAYLAN Oxycodone HCl (Oxycodone Hcl Immed Release 5 Mg Tablet) 10 mg PO Q4H PRN PRN Reason: Pain, Moderate(Pain Scale 4-6) Pharmacy Consult (Consult Rx Vancomycin Dosing) 1 each MISCELLANE DAILY PRN PRN Reason: Consult order Polyethylene Glycol (Polyethylene Glycol 3350 17 Gm Powd.Pack) 17 gm PO DAILY PRN PRN Reason: constipation Sodium Biphosphate/Sodium Phosphate (Sodium Phosphate,[place]-Dibasic 133 Ml Enema) 118 ml [place] DAILY PRN PRN Reason: Constipation Sodium Chloride (0.9 % Sodium Chloride Flush 3 Ml Syringe) 3 ml IVFLUSH QSHIFT [facility] Last Admin: 04/30/23 08:27 Dose: 3 ml Documented By: ABHAY Sodium Hypochlorite (Sodium Hypochlorite 0.25% 473 Ml Solution) 1 appl TOPICAL BID [facility] Last Admin: 04/30/23 08:29 Dose: 1 appl Documented By: ABHAY Tamsulosin HCl (Tamsulosin Hcl 0.4 Mg Capsule) 0.4 mg PO BEDTIME [facility] Last Admin: 04/29/23 21:12 Dose: 0.4 mg Documented By: HAZEL Labs 04/30/23 06:13 04/30/23 06:13 Labs: Laboratory Results - last 24 hr 04/26/23 04/29/23 04/29/23 16:31 16:24 20:00 MCV MCH MCHC RDW Plt Count MPV Immature Gran % (Auto) Neut % (Auto) Lymph % (Auto) [place] % (Auto) Eos % (Auto) Baso % (Auto) Lymph # (Auto) [place] # (Auto) Eos # (Auto) Baso # (Auto) Abs Immat Gran (auto) Absolute Neuts (auto) Absolute Nucleated RBC Nucleated RBC % (auto) Anion Gap Estim Creat Clear Calc Estimated GFR POC Glucose 409 H* 342 H Fasting Glucose Calcium Total Bilirubin AST ALT Alkaline Phosphatase Total Protein Albumin Blood Type AB Positive Antibody Screen NEGATIVE Crossmatch See Detail 04/30/23 04/30/23 04/30/23 06:13 07:17 11:09 MCV 86.6 MCH 28.6 MCHC 33.0 RDW 15.7 Plt Count 280 MPV 9.8 Immature Gran % (Auto) 0.9 H Neut % (Auto) 65.9 Lymph % (Auto) 20.7 [place] % (Auto) 9.3 Eos % (Auto) 2.7 Baso % (Auto) 0.5 Lymph # (Auto) 2.2 [place] # (Auto) 1.0 Eos # (Auto) 0.3 Baso # (Auto) 0.1 Abs Immat Gran (auto) 0.10 H Absolute Neuts (auto) 7.1 Absolute Nucleated RBC 0.000 Nucleated RBC % (auto) 0.0 Anion Gap 13 Estim Creat Clear Calc 72.7 Estimated GFR > 60 POC Glucose 226 H 250 H Fasting Glucose 239 H Calcium 8.4 Total Bilirubin 0.3 AST 15 ALT 12 Alkaline Phosphatase 77 Total Protein 6.5 Albumin 2.7 L Blood Type Antibody Screen Crossmatch Assessment and Plan (1) Status post below knee amputation of right lower extremity: Status: Acute (2) Acute on chronic anemia: Status: Acute Plan 57-year-old male with history of chronic normocytic anemia, insulin-dependent type 2 diabetes, chronic kidney disease stage III, history of opiate use disorder on methadone patient denies recent use, peripheral artery disease on DAPT, with history of osteomyelitis s/p left TMA 05/29 and recent admission from 03/16- for osteomyelitis R heel, discharged on IV vanco 1 g with last dose scheduled for 04/27 admitted for non healing ulceration of the right calcaneus with interval osteomyelitis. 1. Status post [id number] amputation of right lower extremity -will DC antibiotics 2.Acute on chronic- anemia of chronic disease -transfuse 2 units packed red cells .. Good response -follow CBC 3.Insulin-dependent type 2 diabetes -hold oral glycemic -lispro correctional scale -adjust as indicated 4.CKD stage 3 -renal function baseline -follow renals/divalents 5.Opioid dependence -continue methadone 6.Hypertension -acceptable control on current therapies -adjust as indicated Heparin Full code Patient will require ongoing hospitalization for IV antibiotics to treat osteomyelitis pending amputation Time Spent With Patient Time: Total time managing care of this patient today ____ minutes. Quality Stroke Does the patient have a stroke diagnosis?: No VTE Prior VTE?: No VTE Risk Level:: Medical - moderate - high VTE Device Contraindication: Treatment Not Indicated VTE Drug Contraindication: N/A - Med Ordered
--- NOTE | 2023-04-30 15:25 | MHC.CM.PN ---
PT REQUESTING A REFERRAL TO [facility], HE DOES NOT LIKE [facility] AND REPORTS HIS SON TOLD HIM [facility] WAS A GOOD PLACE REFERRAL IN
[2023-04-30 15:39] VITALS: BP 167/78; PULSE 77; RESP 18; TEMP 36.6; O2SAT 98
[2023-04-30] MEDS: oxyCODONE HCl Immed Release 5 MG TABLET 10 MG PO (15:40)
[2023-04-30 16:22] LABS: Glucose, Whole Blood 271 mg/dL (60-115)
[2023-04-30 19:55] VITALS: BP 118/60; PULSE 84; RESP 18; TEMP 36.7; O2SAT 96
[2023-04-30 20:15] LABS: Glucose, Whole Blood 289 mg/dL (60-115)
[2023-04-30] MEDS: Insulin Glargine,Hum.rec.anlog 100 UNIT/ML 10 ML VIAL SUBCUT (20:23)
[2023-04-30] MEDS: Atorvastatin Calcium 10 MG TABLET PO (20:23)
[2023-04-30] MEDS: Tamsulosin HCL 0.4 MG CAPSULE PO (20:23)
[2023-04-30] MEDS: vancomycin HCL 1,250 MG in 0.9 % Sodium Chloride 250 ML 166.67 MG IV (20:32)
--- NOTE | 2023-04-30 22:25 | PC.NURSE ---
Called pharmacy re:Vancomycin trough not done d/t pt's refusal of blood draw, pt was reapproached but still refusing, pharmacy allowed next dose ( 1999) to be given as previous trough is still low, and will recheck level in the morning.
[2023-05-01] MEDS: oxyCODONE HCl Immed Release 5 MG TABLET 10 MG PO ×3 (03:13→20:27)
[2023-05-01 04:00] VITALS: BP 134/71; PULSE 77; RESP 16; TEMP 36; O2SAT 97
[2023-05-01] MEDS: Piperacillin Sodium/Tazobactam 4.5 GM in 0.9 % Sodium Chloride 100 ML IV ×4 (04:08→22:16)
[2023-05-01] MEDS: Heparin Sodium,Porcine 5,000 UNIT/ML VIAL 5000 UNIT SUBCUT ×2 (05:49→16:40)
[2023-05-01] MEDS: Omeprazole 20 MG CAPSULE.DR PO (05:50)
[2023-05-01 07:09] VITALS: BP 149/72; PULSE 79; RESP 18; O2SAT 100
[2023-05-01 07:27] LABS: Glucose, Whole Blood 263 mg/dL (60-115)
[2023-05-01 07:53] LABS: MANUAL DIFF FLAG NO
[2023-05-01 07:57] LABS: Basophils Absolute Auto 0.1 X10*3/uL (0.0-0.2); Basophils Percent Auto 0.4 % (0-2); Eosinophils Absolute Auto 0.4 X10*3/uL (0.0-0.4); Hematocrit 25.1 % (42.0-52.0); Hemoglobin 8.2 g/dl (14.0-18.0); Imm Gran Abs Auto 0.08 X10*3/uL (0.00-0.03); Imm Gran Pct Auto 0.7 % (0.0-0.4); Lymphocytes Absolute Auto 1.9 X10*3/uL (1.2-4.9); Lymphocytes Percent Auto 16.7 % (20-40); Mean Corpuscular HGB Conc 32.7 g/dl (31.0-36.0); Mean Corpuscular Hemoglobin 28.3 pg (27.0-33.0); Mean Corpuscular Volume 86.6 fL (80.0-98.0); Mean Platelet Volume 9.6 fL (9.4-12.4); Monocytes Absolute Auto 0.8 X10*3/uL (0.1-1.2); Monocytes Percent Auto 6.4 % (2-11); Neutrophils Absolute Auto 8.5 x10*3/uL (2.0-8.3); Neutrophils Percent Auto 72.8 % (45-73); Platelet Count 300 X10*3/uL (160-400); Red Cell Distribution Width 15.3 % (11.0-16.0); White Blood Count 11.6 X10*3/uL (4.8-10.8)
[2023-05-01] MEDS: Ferrous Sulfate 324 MG TABLET.DR PO ×2 (08:04→20:28)
[2023-05-01] MEDS: Escitalopram Oxalate 10 MG TABLET PO (08:04)
[2023-05-01] MEDS: Insulin Lispro 100 UNIT/ML 3 ML VIAL SUBCUT ×4 (08:04→20:28)
[2023-05-01] MEDS: NIFEdipine ER 60 MG TAB.ER.24 PO (08:04)
[2023-05-01] MEDS: methADONE HCl 20 MG/2 ML ORAL.CONC 30 MG PO (08:06)
[2023-05-01] MEDS: 0.9 % Sodium Chloride Flush 3 ML SYRINGE IVFLUSH ×2 (08:06→16:40)
[2023-05-01] MEDS: hydrOXYzine HCL 10 MG TABLET PO (08:14)
[2023-05-01 08:17] LABS: Alanine Aminotransferase 13 U/L (0-40); Albumin Level 2.8 g/dL (3.5-5.0); Alkaline Phosphatase 74 U/L (39-117); Anion Gap 12 (12-20); Aspartate Amino Transferase 11 U/L (5-37); Bilirubin Total 0.2 mg/dL (0.0-1.0); Blood Urea Nitrogen 10 mg/dL (9-16); Calcium 8.6 mg/dL (8.4-10.2); Carbon Dioxide 26 mmol/L (22-29); Chloride 102 mmol/L (96-108); Creatinine Clr Calc Pharmacy 81.6; Estimated Glomerular Filt Rate > 60; Glucose Fasting 284 mg/dL (60-99); Potassium 3.7 mmol/L (3.3-5.1); Sodium 136 mmol/L (135-145); Total Protein 6.7 g/dL (6.5-8.0)
[2023-05-01 11:19] LABS: Glucose, Whole Blood 270 mg/dL (60-115)
--- NOTE | 2023-05-01 12:16 | P.PNIM_ITS ---
Subjective Subjective Date of Service: 05/01/23 Interval History: Resting quietly. Pain control adequate Review of Systems Denies chest pain Denies shortness of breath Denies nausea vomiting diarrhea Denies fever chills Physical Exam 2 Vital Signs: Vital Signs: Last Vital Signs Temp 96.8 F 05/01/23 04:00 Pulse 79 05/01/23 07:09 Resp 18 05/01/23 07:09 BP 149/72 H 05/01/23 07:09 Pulse Ox 100 05/01/23 07:09 O2 Del Method Room Air 05/01/23 07:09 O2 Flow Rate 2.0 04/28/23 19:56 BMI result Body Mass Index 30.6 Const: Other: No acute distress Resp: Other: Clear to auscultation bilaterally no rales rhonchi wheezes Cardio: Other: No S4; positive S1-S2; no S3 murmurs rubs or gallops Extrem: Other: See admission photos Objective Data Active Medications Acetaminophen (Acetaminophen 325 Mg Tablet) 650 mg PO Q6H PRN PRN Reason: Pain, Mild (Pain Scale 1-3) Last Admin: 04/29/23 21:48 Dose: 650 mg Documented By: HAZEL Al Hydroxide/Mg Hydroxide (Magnesium Hydrox/Alum Hydrox 30 Ml Oral.Susp) 15 ml PO Q6H PRN PRN Reason: Dyspepsia Atorvastatin Calcium (Atorvastatin Calcium 10 Mg Tablet) 10 mg PO BEDTIME [facility] Last Admin: 04/30/23 20:23 Dose: 10 mg Documented By: HAZEL Bisacodyl (Bisacodyl 10 Mg Supp.Rect) 10 mg [place] DAILY PRN PRN Reason: Constipation Dextrose (Dextrose 50 % 25 Gm/50 Ml Syringe) 25 gm IVPUSH Q15M PRN; Protocol PRN Reason: per Hypoglycemia Standing Ord. Docusate Sodium (Docusate Sodium 100 Mg Capsule) 100 mg PO DAILY PRN PRN Reason: Constipation Last Admin: 04/29/23 13:17 Dose: 100 mg Documented By: BETINA Escitalopram Oxalate (Escitalopram Oxalate 10 Mg Tablet) 10 mg PO DAILY [facility] Last Admin: 05/01/23 08:04 Dose: 10 mg Documented By: ABHAY Ferrous Sulfate (Ferrous Sulfate 324 Mg Tablet.) 324 mg PO BID [facility] Last Admin: 05/01/23 08:04 Dose: 324 mg Documented By: ABHAY Glucose (Glucose Gel 15 Gm Gel..Gram.) 15 gm PO Q15M PRN; Protocol PRN Reason: per Hypoglycemia Standing Ord. Heparin Sodium (Porcine) (Heparin Sodium,Porcine 5,000 Unit/Ml Vial) 5,000 unit SUBCUT Q12H [facility] Last Admin: 05/01/23 05:49 Dose: 5,000 unit Documented By: HAZEL Hydroxyzine HCl (Hydroxyzine Hcl 10 Mg Tablet) 10 mg PO Q6H PRN PRN Reason: Anxiety Last Admin: 05/01/23 08:14 Dose: 10 mg Documented By: ABHAY Piperacillin Sod/Tazobactam (Sod 4.5 gm/ Sodium Chloride) 100 mls @ 200 mls/hr IV Q6H [facility] Last Infusion: 05/01/23 10:25 Dose: Infused Documented By: ABHAY Vancomycin HCl 1,250 mg/ (Sodium Chloride) 250 mls @ 166.667 mls/hr IV Q24H [facility] Last Infusion: 04/30/23 22:04 Dose: Infused Documented By: HAZEL Insulin Glargine (Insulin Glargine,Hum.Rec.Anlog 100 Unit/Ml 10 Ml Vial) 5 unit SUBCUT BEDTIME [facility] Last Admin: 04/30/23 20:23 Dose: 5 unit Documented By: HAZEL Insulin Human Lispro (Insulin Lispro 100 Unit/Ml 3 Ml Vial) 0 unit SUBCUT QIDACHS [facility]; Protocol Last Admin: 05/01/23 11:50 Dose: 6 unit Documented By: ABHAY Loperamide HCl (Loperamide Hcl 2 Mg Capsule) 2 mg PO Q4H PRN PRN Reason: Loose Stool Last Admin: 04/30/23 10:15 Dose: 2 mg Documented By: ABHAY Methadone HCl (Methadone Hcl 20 Mg/2 Ml Oral.Conc) 30 mg PO DAILY [facility] Last Admin: 05/01/23 08:06 Dose: 30 mg Documented By: ABHAY Morphine Sulfate (Morphine Sulfate 4 Mg/Ml Cartridge) 4 mg IVPUSH Q4H PRN; Protocol PRN Reason: Pain, Severe (Pain Scale 7-10) Last Admin: 04/29/23 22:52 Dose: 4 mg Documented By: HAZEL Comments: Dr. Beltrán ordered to give med an hour early as pt pain level is still 10/10 Nifedipine (Nifedipine Er 60 Mg Tab.Er.24) 60 mg PO DAILY [facility]; Protocol Last Admin: 05/01/23 08:04 Dose: 60 mg Documented By: ABHAY Omeprazole (Omeprazole 20 Mg Capsule.) 20 mg PO DAILY@0630 [facility] Last Admin: 05/01/23 05:50 Dose: 20 mg Documented By: HAZEL Ondansetron HCl (Ondansetron Hcl 4 Mg/2 Ml Vial) 4 mg IVPUSH Q8H PRN PRN Reason: Nausea and Vomiting Last Admin: 04/28/23 19:45 Dose: 4 mg Documented By: JAYLAN Oxycodone HCl (Oxycodone Hcl Immed Release 5 Mg Tablet) 10 mg PO Q4H PRN PRN Reason: Pain, Moderate(Pain Scale 4-6) Last Admin: 05/01/23 08:15 Dose: 10 mg Documented By: ABHAY Pharmacy Consult (Consult Rx Vancomycin Dosing) 1 each [place] DAILY PRN PRN Reason: Consult order Polyethylene Glycol (Polyethylene Glycol 3350 17 Gm Powd.Pack) 17 gm PO DAILY PRN PRN Reason: constipation Sodium Biphosphate/Sodium Phosphate (Sodium Phosphate,[place]-Dibasic 133 Ml Enema) 118 ml [place] DAILY PRN PRN Reason: Constipation Sodium Chloride (0.9 % Sodium Chloride Flush 3 Ml Syringe) 3 ml IVFLUSH QSHIFT [facility] Last Admin: 05/01/23 08:06 Dose: 3 ml Documented By: ABHAY Sodium Hypochlorite (Sodium Hypochlorite 0.25% 473 Ml Solution) 1 appl TOPICAL BID [facility] Last Admin: 05/01/23 08:06 Dose: 1 appl Documented By: ABHAY Tamsulosin HCl (Tamsulosin Hcl 0.4 Mg Capsule) 0.4 mg PO BEDTIME [facility] Last Admin: 04/30/23 20:23 Dose: 0.4 mg Documented By: HAZEL Labs 05/01/23 07:43 05/01/23 07:43 Labs: Laboratory Results - last 24 hr 04/30/23 04/30/23 05/01/23 16:18 20:12 07:13 MCV MCH MCHC RDW Plt Count MPV Immature Gran % (Auto) Neut % (Auto) Lymph % (Auto) [place] % (Auto) Eos % (Auto) Baso % (Auto) Lymph # (Auto) [place] # (Auto) Eos # (Auto) Baso # (Auto) Abs Immat Gran (auto) Absolute Neuts (auto) Absolute Nucleated RBC Nucleated RBC % (auto) Anion Gap Estim Creat Clear Calc Estimated GFR POC Glucose 271 H 289 H 263 H Fasting Glucose Calcium Total Bilirubin AST ALT Alkaline Phosphatase Total Protein Albumin 05/01/23 05/01/23 07:43 11:16 MCV 86.6 MCH 28.3 MCHC 32.7 RDW 15.3 Plt Count 300 MPV 9.6 Immature Gran % (Auto) 0.7 H Neut % (Auto) 72.8 Lymph % (Auto) 16.7 L [place] % (Auto) 6.4 Eos % (Auto) 3.0 Baso % (Auto) 0.4 Lymph # (Auto) 1.9 [place] # (Auto) 0.8 Eos # (Auto) 0.4 Baso # (Auto) 0.1 Abs Immat Gran (auto) 0.08 H Absolute Neuts (auto) 8.5 H Absolute Nucleated RBC 0.000 Nucleated RBC % (auto) 0.0 Anion Gap 12 Estim Creat Clear Calc 81.6 Estimated GFR > 60 POC Glucose 270 H Fasting Glucose 284 H Calcium 8.6 Total Bilirubin 0.2 AST 11 ALT 13 Alkaline Phosphatase 74 Total Protein 6.7 Albumin 2.8 L Assessment and Plan (1) Status post below knee amputation of right lower extremity: Status: Acute (2) Anemia: Status: Acute (3) Diabetes type 2, controlled: Status: Acute Plan 57-year-old male with history of chronic normocytic anemia, insulin-dependent type 2 diabetes, chronic kidney disease stage III, history of opiate use disorder on methadone patient denies recent use, peripheral artery disease on DAPT, with history of osteomyelitis s/p left TMA 05/29 and recent admission from 03/16- for osteomyelitis R heel, discharged on IV vanco 1 g with last dose scheduled for 04/27 admitted for non healing ulceration of the right calcaneus with interval osteomyelitis. 1. Status post [id number] amputation of right lower extremity -will DC antibiotics -further treatments as per vascular surgery 2.Acute on chronic- anemia of chronic disease -stable -follow CBC 3.Insulin-dependent type 2 diabetes -increase Lantus to 10 units at bedtime -lispro correctional scale -adjust as indicated 4.CKD stage 3 -renal function baseline -follow renals/divalents 5.Opioid dependence -continue methadone 6.Hypertension -acceptable control on current therapies -adjust as indicated Heparin Full code Patient will require ongoing hospitalization for IV antibiotics to treat osteomyelitis pending amputation Time Spent With Patient Time: Total time managing care of this patient today ____ minutes. Quality Stroke Does the patient have a stroke diagnosis?: No VTE Prior VTE?: No VTE Risk Level:: Medical - moderate - high VTE Device Contraindication: Treatment Not Indicated VTE Drug Contraindication: N/A - Med Ordered
[2023-05-01] MEDS: Clopidogrel Bisulfate 75 MG TABLET PO (13:28)
[2023-05-01 14:59] VITALS: BP 130/80; PULSE 79; RESP 16; TEMP 36.6; O2SAT 98
[2023-05-01 16:37] LABS: Glucose, Whole Blood 289 mg/dL (60-115)
[2023-05-01 18:39] LABS: Vancomycin Random 15.4 mcg/mL (15-20)
[2023-05-01 19:48] VITALS: BP 137/65; PULSE 86; RESP 18; TEMP 36.1; O2SAT 98
[2023-05-01 20:15] LABS: Glucose, Whole Blood 342 mg/dL (60-115)
[2023-05-01] MEDS: Acetaminophen 325 MG TABLET 650 MG PO (20:27)
[2023-05-01] MEDS: Tamsulosin HCL 0.4 MG CAPSULE PO (20:27)
[2023-05-01] MEDS: Insulin Glargine,Hum.rec.anlog 100 UNIT/ML 10 ML VIAL 10 UNIT SUBCUT (20:28)
[2023-05-01] MEDS: vancomycin HCL 1,250 MG in 0.9 % Sodium Chloride 250 ML 166.67 MG IV (20:28)
[2023-05-01] MEDS: Atorvastatin Calcium 10 MG TABLET PO (20:28)
[2023-05-01 23:25] VITALS: BP 125/60; PULSE 86; RESP 18; TEMP 36.8; O2SAT 100
[2023-05-01 23:30] VITALS: BP 125/60
[2023-05-02 03:55] VITALS: BP 157/79; PULSE 73; RESP 18; TEMP 36.3; O2SAT 100
[2023-05-02] MEDS: Piperacillin Sodium/Tazobactam 4.5 GM in 0.9 % Sodium Chloride 100 ML IV (04:44)
[2023-05-02] MEDS: Acetaminophen 325 MG TABLET 650 MG PO ×2 (05:15→15:44)
[2023-05-02] MEDS: oxyCODONE HCl Immed Release 5 MG TABLET 10 MG PO ×4 (05:16→20:57)
[2023-05-02] MEDS: Heparin Sodium,Porcine 5,000 UNIT/ML VIAL 5000 UNIT SUBCUT ×2 (05:16→15:44)
[2023-05-02] MEDS: Omeprazole 20 MG CAPSULE.DR PO (05:16)
[2023-05-02 07:22] VITALS: BP 150/72; PULSE 78; RESP 20; TEMP 36.3; O2SAT 97
[2023-05-02 07:38] LABS: Glucose, Whole Blood 212 mg/dL (60-115)
[2023-05-02] MEDS: Insulin Lispro 100 UNIT/ML 3 ML VIAL SUBCUT ×4 (07:47→20:53)
[2023-05-02] MEDS: Clopidogrel Bisulfate 75 MG TABLET PO (07:47)
[2023-05-02] MEDS: NIFEdipine ER 60 MG TAB.ER.24 PO (07:47)
[2023-05-02] MEDS: methADONE HCl 20 MG/2 ML ORAL.CONC 30 MG PO (07:48)
[2023-05-02] MEDS: Ferrous Sulfate 324 MG TABLET.DR PO ×2 (07:48→20:54)
[2023-05-02] MEDS: Escitalopram Oxalate 10 MG TABLET PO (07:48)
[2023-05-02 08:17] LABS: Basophils Percent Auto 0.3 % (0-2); Eosinophils Absolute Auto 0.5 X10*3/uL (0.0-0.4); Eosinophils Percent Auto 3.9 % (0-4); Hematocrit 24.7 % (42.0-52.0); Imm Gran Abs Auto 0.09 X10*3/uL (0.00-0.03); Imm Gran Pct Auto 0.7 % (0.0-0.4); Lymphocytes Absolute Auto 2.3 X10*3/uL (1.2-4.9); Lymphocytes Percent Auto 18.6 % (20-40); MANUAL DIFF FLAG NO; Mean Corpuscular HGB Conc 32.4 g/dl (31.0-36.0); Mean Corpuscular Hemoglobin 28.1 pg (27.0-33.0); Mean Corpuscular Volume 86.7 fL (80.0-98.0); Mean Platelet Volume 9.9 fL (9.4-12.4); Monocytes Absolute Auto 0.7 X10*3/uL (0.1-1.2); Monocytes Percent Auto 5.6 % (2-11); Neutrophils Absolute Auto 8.6 x10*3/uL (2.0-8.3); Neutrophils Percent Auto 70.9 % (45-73); Platelet Count 330 X10*3/uL (160-400); Red Blood Count 2.85 X10*6/uL (4.60-5.80); Red Cell Distribution Width 15.3 % (11.0-16.0); White Blood Count 12.2 X10*3/uL (4.8-10.8)
[2023-05-02 08:29] LABS: Alanine Aminotransferase 15 U/L (0-40); Albumin Level 2.7 g/dL (3.5-5.0); Alkaline Phosphatase 66 U/L (39-117); Anion Gap 13 (12-20); Aspartate Amino Transferase 12 U/L (5-37); Bilirubin Total 0.2 mg/dL (0.0-1.0); Blood Urea Nitrogen 9 mg/dL (9-16); Calcium 8.7 mg/dL (8.4-10.2); Carbon Dioxide 25 mmol/L (22-29); Chloride 102 mmol/L (96-108); Creatinine Clr Calc Pharmacy 90.1; Estimated Glomerular Filt Rate > 60; Glucose Fasting 227 mg/dL (60-99); Potassium 3.8 mmol/L (3.3-5.1); Sodium 136 mmol/L (135-145); Total Protein 6.6 g/dL (6.5-8.0)
[2023-05-02 10:59] VITALS: BP 146/76; PULSE 72; RESP 20; TEMP 36.4; O2SAT 97
[2023-05-02 11:07] LABS: Glucose, Whole Blood 191 mg/dL (60-115)
--- NOTE | 2023-05-02 14:05 | HO.PM.IMPN ---
Subjective Subjective Date of Service: 05/02/23 Interval History: Offers no acute complaints tolerating diet, no nausea, no vomiting, no abdominal pain ,refuse to get dressing change by nurse, scheduled to have dressing change by Dr. Brown this morning blood sugars elevated in 300 range, no other acute issues overnight Review of Systems All other system reviewed and negative Physical Exam Vital Signs: Vital Signs: Last Vital Signs Temp 97.5 F 05/02/23 10:59 Pulse 72 05/02/23 10:59 Resp 20 05/02/23 10:59 BP 146/76 H 05/02/23 10:59 Pulse Ox 97 05/02/23 10:59 O2 Del Method Room Air 05/02/23 10:59 O2 Flow Rate 2.0 04/28/23 19:56 BMI result Body Mass Index 30.6 Const: Other: Constitutional : Awake, interactive, not in distress Neck : Normal inspection, Supple Cardiovascular : RRR, no JVP, no lower extremity edema Respiratory : good bilateral air entry, no crackles, wheezes or rhonchi Gastrointestinal: soft, Normal bowel sounds, Non tender Skin : Right BKA dressing in place Neurological : Alert & oriented x3, No focal deficit Psych appropriate affect Objective Data Active Medications Acetaminophen (Acetaminophen 325 Mg Tablet) 650 mg PO Q6H PRN PRN Reason: Pain, Mild (Pain Scale 1-3) Last Admin: 05/02/23 05:15 Dose: 650 mg Documented By: SHELTON Al Hydroxide/Mg Hydroxide (Magnesium Hydrox/Alum Hydrox 30 Ml Oral.Susp) 15 ml PO Q6H PRN PRN Reason: Dyspepsia Atorvastatin Calcium (Atorvastatin Calcium 10 Mg Tablet) 10 mg PO BEDTIME [facility] Last Admin: 05/01/23 20:28 Dose: 10 mg Documented By: SHELTON Bisacodyl (Bisacodyl 10 Mg Supp.Rect) 10 mg [place] DAILY PRN PRN Reason: Constipation Clopidogrel Bisulfate (Clopidogrel Bisulfate 75 Mg Tablet) 75 mg PO DAILY [facility] Last Admin: 05/02/23 07:47 Dose: 75 mg Documented By: SALAZAR Dextrose (Dextrose 50 % 25 Gm/50 Ml Syringe) 25 gm IVPUSH Q15M PRN; Protocol PRN Reason: per Hypoglycemia Standing Ord. Docusate Sodium (Docusate Sodium 100 Mg Capsule) 100 mg PO DAILY PRN PRN Reason: Constipation Last Admin: 04/29/23 13:17 Dose: 100 mg Documented By: BETINA Escitalopram Oxalate (Escitalopram Oxalate 10 Mg Tablet) 10 mg PO DAILY [facility] Last Admin: 05/02/23 07:48 Dose: 10 mg Documented By: SALAZAR Ferrous Sulfate (Ferrous Sulfate 324 Mg Tablet.) 324 mg PO BID [facility] Last Admin: 05/02/23 07:48 Dose: 324 mg Documented By: SALAZAR Glucose (Glucose Gel 15 Gm Gel..Gram.) 15 gm PO Q15M PRN; Protocol PRN Reason: per Hypoglycemia Standing Ord. Heparin Sodium (Porcine) (Heparin Sodium,Porcine 5,000 Unit/Ml Vial) 5,000 unit SUBCUT Q12H [facility] Last Admin: 05/02/23 05:16 Dose: 5,000 unit Documented By: SHELTON Hydroxyzine HCl (Hydroxyzine Hcl 10 Mg Tablet) 10 mg PO Q6H PRN PRN Reason: Anxiety Last Admin: 05/01/23 08:14 Dose: 10 mg Documented By: ABHAY Insulin Glargine (Insulin Glargine,Hum.Rec.Anlog 100 Unit/Ml 10 Ml Vial) 10 unit SUBCUT BEDTIME [facility] Last Admin: 05/01/23 20:28 Dose: 10 unit Documented By: SHELTON Insulin Human Lispro (Insulin Lispro 100 Unit/Ml 3 Ml Vial) 0 unit SUBCUT QIDACHS [facility]; Protocol Last Admin: 05/02/23 12:06 Dose: 2 unit Documented By: SALAZAR Loperamide HCl (Loperamide Hcl 2 Mg Capsule) 2 mg PO Q4H PRN PRN Reason: Loose Stool Last Admin: 04/30/23 10:15 Dose: 2 mg Documented By: AHBAY Methadone HCl (Methadone Hcl 20 Mg/2 Ml Oral.Conc) 30 mg PO DAILY [facility] Last Admin: 05/02/23 07:48 Dose: 30 mg Documented By: SALAZAR Nifedipine (Nifedipine Er 60 Mg Tab.Er.24) 60 mg PO DAILY [facility]; Protocol Last Admin: 05/02/23 07:47 Dose: 60 mg Documented By: SALAZAR Omeprazole (Omeprazole 20 Mg Capsule.) 20 mg PO DAILY@0630 [facility] Last Admin: 05/02/23 05:16 Dose: 20 mg Documented By: SHELTON Ondansetron HCl (Ondansetron Hcl 4 Mg/2 Ml Vial) 4 mg IVPUSH Q8H PRN PRN Reason: Nausea and Vomiting Last Admin: 04/28/23 19:45 Dose: 4 mg Documented By: JAYLAN Oxycodone HCl (Oxycodone Hcl Immed Release 5 Mg Tablet) 10 mg PO Q4H PRN PRN Reason: Pain, Moderate(Pain Scale 4-6) Last Admin: 05/02/23 13:08 Dose: 10 mg Documented By: SALAZAR Pharmacy Consult (Consult Rx Vancomycin Dosing) 1 each [place] DAILY PRN PRN Reason: Consult order Polyethylene Glycol (Polyethylene Glycol 3350 17 Gm Powd.Pack) 17 gm PO DAILY PRN PRN Reason: constipation Sodium Biphosphate/Sodium Phosphate (Sodium Phosphate,[place]-Dibasic 133 Ml Enema) 118 ml [place] DAILY PRN PRN Reason: Constipation Sodium Chloride (0.9 % Sodium Chloride Flush 3 Ml Syringe) 3 ml IVFLUSH QSHIFT [facility] Last Admin: 05/02/23 07:59 Dose: Not Given Documented By: SALAZAR Non-Admin Reason: No Access Sodium Hypochlorite (Sodium Hypochlorite 0.25% 473 Ml Solution) 1 appl TOPICAL BID [facility] Last Admin: 05/02/23 09:49 Dose: Not Given Documented By: SALAZAR Non-Admin Reason: Wound managed by surgery Tamsulosin HCl (Tamsulosin Hcl 0.4 Mg Capsule) 0.4 mg PO BEDTIME [facility] Last Admin: 05/01/23 20:27 Dose: 0.4 mg Documented By: SHELTON Labs 05/02/23 07:25 05/02/23 07:25 Labs: Laboratory Results - last 24 hr 05/01/23 05/01/23 05/01/23 16:33 17:57 20:12 MCV MCH MCHC RDW Plt Count MPV Immature Gran % (Auto) Neut % (Auto) Lymph % (Auto) [place] % (Auto) Eos % (Auto) Baso % (Auto) Lymph # (Auto) [place] # (Auto) Eos # (Auto) Baso # (Auto) Abs Immat Gran (auto) Absolute Neuts (auto) Absolute Nucleated RBC Nucleated RBC % (auto) Anion Gap Estim Creat Clear Calc Estimated GFR POC Glucose 289 H 342 H Fasting Glucose Calcium Total Bilirubin AST ALT Alkaline Phosphatase Total Protein Albumin Random Vancomycin 15.4 05/02/23 05/02/23 05/02/23 07:25 07:35 11:03 MCV 86.7 MCH 28.1 MCHC 32.4 RDW 15.3 Plt Count 330 MPV 9.9 Immature Gran % (Auto) 0.7 H Neut % (Auto) 70.9 Lymph % (Auto) 18.6 L [place] % (Auto) 5.6 Eos % (Auto) 3.9 Baso % (Auto) 0.3 Lymph # (Auto) 2.3 [place] # (Auto) 0.7 Eos # (Auto) 0.5 H Baso # (Auto) 0.0 Abs Immat Gran (auto) 0.09 H Absolute Neuts (auto) 8.6 H Absolute Nucleated RBC 0.000 Nucleated RBC % (auto) 0.0 Anion Gap 13 Estim Creat Clear Calc 90.1 Estimated GFR > 60 POC Glucose 212 H 191 H Fasting Glucose 227 H Calcium 8.7 Total Bilirubin 0.2 AST 12 ALT 15 Alkaline Phosphatase 66 Total Protein 6.6 Albumin 2.7 L Random Vancomycin Assessment and Plan (1) Status post below knee amputation of right lower extremity: Status: Acute (2) Anemia: Status: Acute (3) Diabetes type 2, controlled: Status: Acute Plan 57-year-old male with history of chronic normocytic anemia, insulin-dependent type 2 diabetes, chronic kidney disease stage III, history of opiate use disorder on methadone patient denies recent use, peripheral artery disease on DAPT, with history of osteomyelitis s/p left TMA 05/29 and recent admission from 03/16- for osteomyelitis R heel, discharged on IV vanco 1 g with last dose scheduled for 04/27 admitted for non healing ulceration of the right calcaneus with interval osteomyelitis. 1. Status post right [id number] amputation of right lower extremity Dressing change by Dr. Brown this morning, stump looking good will obtain PT evaluation for possible rehab Will discontinue IV vancomycin and Zosyn 2.Acute on chronic- anemia of chronic disease -status post 2 units of packed RBC hematocrit improved and stable ,follow CBC 3.Insulin-dependent type 2 diabetes -elevated blood sugars on Lantus to 10 units at bedtime -will increase dose of lispro correctional scale -continue diabetic diet follow blood sugars closely 4.CKD stage 3 -renal function baseline -follow renals/divalents 5.Opioid dependence -continue methadone 6.Hypertension -acceptable control on current therapies Heparin Full code Patient will require ongoing hospitalization for right BKA surgical follow-up and PT eval for safe disposition Time Spent With Patient Time: Total time managing care of this patient today ____ minutes. Quality Stroke Does the patient have a stroke diagnosis?: No VTE Prior VTE?: No VTE Risk Level:: Medical - moderate - high VTE Device Contraindication: Treatment Not Indicated VTE Drug Contraindication: N/A - Med Ordered
--- NOTE | 2023-05-02 14:13 | P.PNVS_ITS ---
Subjective Subjective Date of Service: 05/02/23 Patient reports: no new complaints and feels better Interval history: Very pleasant 57-year-old gentleman status post BKA. Reports that he is doing well throughout the weekend. No significant pain. Now for postoperative follow-up.. Physical Exam Vital Signs: Vital Signs: Last Vital Signs Temp 97.5 F 05/02/23 10:59 Pulse 72 05/02/23 10:59 Resp 20 05/02/23 10:59 BP 146/76 H 05/02/23 10:59 Pulse Ox 97 05/02/23 10:59 O2 Del Method Room Air 05/02/23 10:59 O2 Flow Rate 2.0 04/28/23 19:56 BMI result Body Mass Index 30.6 Const: General: cooperative, healthy appearing and no acute distress Orientation/consciousness: oriented to person, oriented to place and oriented to time HEENT: Head: Yes normal to inspection Neck: Carotids: no bruits Chest: Chest palpation & inspection: normal inspection of the chest Resp: Effort & Inspection: normal respiratory effort and able to speak in complete sentences Auscultation: clear to auscultation bilaterally Cardio: Rate: regular rate Heart sounds: S1 normal heart sound present and S2 normal heart sound present GI: Inspection: Yes normal to inspection Skin: Other: Stump dressing changed - right BKA well healing General skin exam: no rashes or lesions noted Wounds: no wounds Neuro: General: oriented to person, oriented to place, oriented to time and CN's II-XI intact bilaterally Extrem: General: Yes normal to inspection, Yes full ROM and Yes no clubbing, cyanosis or edema Psych: Appearance: grossly normal and well kempt Speech and movement: Normal speech and movement present Affect: normal affect Progress Note: A&P Assessment and plan (1) Status post below knee amputation of right lower extremity: Status: Acute Assessment and Plan: In short patient is doing well status post right below-knee amputation. Continue local wound care. Stable from my perspective for discharge. Can follow-up with me in approximately 2 weeks as an outpatient for suture and s taple removal. Thank you for allowing me to participate in his care. Time Spent With Patient Time: Total time managing care of this patient today ____ minutes. Procedures Date of Service Date of Service: 05/02/23 Quality Stroke Does the patient have a stroke diagnosis?: No VTE Prior VTE?: No VTE Risk Level:: Medical - moderate - high VTE Device Contraindication: Treatment Not Indicated VTE Drug Contraindication: N/A - Med Ordered
--- NOTE | 2023-05-02 14:53 | MHC.CM.PN ---
per rounds md will order pt eval ?str
[2023-05-02 15:23] VITALS: BP 130/64; PULSE 76; O2SAT 98
[2023-05-02 15:37] VITALS: BP 130/64; PULSE 76; RESP 20; TEMP 36.6; O2SAT 98
[2023-05-02 16:16] LABS: Glucose, Whole Blood 160 mg/dL (60-115)
[2023-05-02] MEDS: 0.9 % Sodium Chloride Flush 3 ML SYRINGE IVFLUSH ×2 (16:51→20:54)
[2023-05-02 19:06] LABS: Vancomycin Random 15.8 mcg/mL (15-20)
[2023-05-02 19:37] VITALS: BP 135/64; PULSE 77; RESP 18; TEMP 36.6; O2SAT 99
[2023-05-02 20:15] LABS: Glucose, Whole Blood 171 mg/dL (60-115)
[2023-05-02] MEDS: Insulin Glargine,Hum.rec.anlog 100 UNIT/ML 10 ML VIAL 10 UNIT SUBCUT (20:53)
[2023-05-02] MEDS: Atorvastatin Calcium 10 MG TABLET PO (20:54)
[2023-05-02] MEDS: Tamsulosin HCL 0.4 MG CAPSULE PO (20:54)
[2023-05-03] MEDS: oxyCODONE HCl Immed Release 5 MG TABLET 10 MG PO ×3 (03:14→21:16)
[2023-05-03 03:22] VITALS: BP 148/70; PULSE 76; RESP 18; TEMP 36.4; O2SAT 99
[2023-05-03] MEDS: Heparin Sodium,Porcine 5,000 UNIT/ML VIAL 5000 UNIT SUBCUT ×2 (05:32→16:42)
[2023-05-03] MEDS: Omeprazole 20 MG CAPSULE.DR PO (05:33)
[2023-05-03 06:46] LABS: MANUAL DIFF FLAG NO
[2023-05-03 07:05] LABS: Basophils Absolute Auto 0.1 X10*3/uL (0.0-0.2); Basophils Percent Auto 0.4 % (0-2); Eosinophils Absolute Auto 0.4 X10*3/uL (0.0-0.4); Eosinophils Percent Auto 3.6 % (0-4); Hematocrit 25.5 % (42.0-52.0); Hemoglobin 8.3 g/dl (14.0-18.0); Imm Gran Abs Auto 0.08 X10*3/uL (0.00-0.03); Imm Gran Pct Auto 0.6 % (0.0-0.4); Lymphocytes Absolute Auto 2.1 X10*3/uL (1.2-4.9); Mean Corpuscular HGB Conc 32.5 g/dl (31.0-36.0); Mean Corpuscular Hemoglobin 28.5 pg (27.0-33.0); Mean Corpuscular Volume 87.6 fL (80.0-98.0); Mean Platelet Volume 9.8 fL (9.4-12.4); Monocytes Absolute Auto 0.7 X10*3/uL (0.1-1.2); Monocytes Percent Auto 5.3 % (2-11); Neutrophils Percent Auto 73.1 % (45-73); Platelet Count 368 X10*3/uL (160-400); Red Blood Count 2.91 X10*6/uL (4.60-5.80); Red Cell Distribution Width 15.6 % (11.0-16.0); White Blood Count 12.3 X10*3/uL (4.8-10.8)
[2023-05-03 07:14] LABS: Alanine Aminotransferase 13 U/L (0-40); Albumin Level 2.8 g/dL (3.5-5.0); Alkaline Phosphatase 69 U/L (39-117); Anion Gap 12 (12-20); Aspartate Amino Transferase 10 U/L (5-37); Bilirubin Total 0.1 mg/dL (0.0-1.0); Blood Urea Nitrogen 13 mg/dL (9-16); Calcium 8.7 mg/dL (8.4-10.2); Carbon Dioxide 26 mmol/L (22-29); Chloride 102 mmol/L (96-108); Creatinine Clr Calc Pharmacy 79.4; Estimated Glomerular Filt Rate > 60; Glucose Fasting 282 mg/dL (60-99); Sodium 136 mmol/L (135-145); Total Protein 6.6 g/dL (6.5-8.0)
[2023-05-03 07:29] VITALS: BP 158/81; PULSE 75; RESP 18; TEMP 36.6; O2SAT 99
[2023-05-03 07:36] LABS: Glucose, Whole Blood 248 mg/dL (60-115)
[2023-05-03] MEDS: Insulin Lispro 100 UNIT/ML 3 ML VIAL SUBCUT ×4 (08:47→21:12)
[2023-05-03] MEDS: Clopidogrel Bisulfate 75 MG TABLET PO (08:48)
[2023-05-03] MEDS: NIFEdipine ER 60 MG TAB.ER.24 PO (08:48)
[2023-05-03] MEDS: Ferrous Sulfate 324 MG TABLET.DR PO ×2 (08:48→21:12)
[2023-05-03] MEDS: Escitalopram Oxalate 10 MG TABLET PO (08:48)
[2023-05-03] MEDS: methADONE HCl 20 MG/2 ML ORAL.CONC 30 MG PO (08:48)
--- NOTE | 2023-05-03 11:33 | PM.DS ---
DS: Providers Provider Date of Service: 05/03/23 Date of admission: 04/26/23 16:39 Primary care physician: Gissel Patino MD Consults: 04/26/23 15:44 Consult to Vascular Surgery Stat Consulting Provider: [facility] Vascular Services Reason for consultation: nonhealing right heel wound Has provider been notified: Yes 04/26/23 17:03 Consult to Infectious Diseases Routine Consulting Provider: [facility] Infectious Disease Reason for consultation: osteomyelitis R calcaneous DS: Diagnosis Discharge Diagnosis (1) Status post below knee amputation of right lower extremity: Status: Acute DS: Summary Hospital Course Hospital Course: History of presenting illness: Date of Service: 04/26/23 Attending physician on admission: Da Hood Chief Complaint: foot infection 57-year-old male with history of chronic normocytic anemia, insulin-dependent type 2 diabetes, chronic kidney disease stage III, history of opiate use disorder on methadone patient denies recent use, peripheral artery disease on DAPT, with history of osteomyelitis s/p left TMA 05/29 and recent admission from 03/16- for osteomyelitis R heel, discharged on IV vanco 1 g with last dose scheduled for 04/27 advised to follow-up with Dr. Brown. He recently saw Dr. Brown who felt the wounds of the bilateral heels were more pressure r/t and arterial imaging was ordered but not yet performed. Unfortuatnely, the patient reports the wound of the right heel had been improving but about 2 weeks ago developed a foul odor, purulent drainage, in significant pain despite compliance with vanco. He does also report some vertigo like symptoms following vanco administration. On arrival, vital stable. He is afebrile, no hypotension. There is a leukocytosis of 14.3. Has acute on chronic normocytic anemia with H/H 6.2/19.6%. Renal function normal, electrolyte levels normal. CRP 18.38, ESR pending. Albumin 2.9. X-ray of the right foot showed interval calcaneal osteomyelitis and increasing soft tissue air suspicious for gas-forming organism. ED provider did discuss case with Dr. Brown who is recommending admission and amputation. In the ED, given dose of IV Zosyn and ordered for 1 unit packed red blood cells. Hospital course: 1) 57-year-old male with history of chronic normocytic anemia, insulin-dependent type 2 diabetes, chronic kidney disease stage III, history of opiate use disorder on methadone patient denies recent use, peripheral artery disease on DAPT, with history of osteomyelitis s/p left TMA 05/29 and recent admission from 03/16 to 03/22 for osteomyelitis R heel, discharged on IV vanco 1 g with last dose scheduled for 04/27 admitted for non healing ulceration of the right calcaneus with interval osteomyelitis admitted to medical floor treated with IV vancomycin and Zosyn, subsequently underwent right below-knee amputation postprocedure seen by Physical therapy and they recommend short-term rehab dressing change by Dr. Brown stump incision clean and dry healing well, recommend outpatient follow-up with Dr. Brown in 2 weeks for removal of junaid, continue analgesics for pain. 2.Acute on chronic- anemia of chronic disease with history of Colon cancer, moderately differentiated adenocarcinoma of cecum 01/20/[address] Ruvalcaba received 2 units of packed RBC hematocrit improved and stable aspirin discontinued. 3.Insulin-dependent type 2 diabetes noted to have elevated blood sugars dose of Lantus increased to 10 units at bedtime continue insulin sliding scale and follow diabetic diet 4.CKD stage 3 avoid nephrotoxins 5.Opioid dependence -continue methadone 6.Hypertension -continue home medications noted to have stable blood pressures. Time Spent with Patient Time attestation: Total time managing care of this patient today ____ minutes. Discharge coordination time: Greater than 30 minutes Quality: Safe Use of Opioids Does Pt have an Active Cancer Diagnosis on the Problem List?: No Quality: Stroke Does the patient have a stroke diagnosis?: No Physical Exam Vital Signs: Vital Signs: Last Vital Signs Temp 97.9 F 05/03/23 07:29 Pulse 75 05/03/23 07:29 Resp 18 05/03/23 07:29 BP 158/81 H 05/03/23 07:29 Pulse Ox 99 05/03/23 07:29 O2 Del Method Room Air 05/03/23 07:29 O2 Flow Rate 2.0 04/28/23 19:56 BMI result Body Mass Index 30.6 Const: Other: Constitutional : Awake, interactive, not in distress Neck : Normal inspection, Supple Cardiovascular : RRR, no JVD, no left leg edema Respiratory : good bilateral air entry, no crackles, wheezes or rhonchi Gastrointestinal: soft, Normal bowel sounds, Non tender Skin : Right BKA dressing in place Neurological : Alert & oriented x3, No focal deficit Psych appropriate affect DS: Data Data Completed and Pending Completed studies during hospitalization [Text1]: Pending at discharge 04/28/23 13:25 Surgical [PTH] Routine Procedures Detachment at Left 4th Toe, Complete, Open Approach (04/04/22) Detachment at Left Foot, Partial 1st Ray, Open Approach (05/12/22) Detachment at Left Foot, Partial 2nd Ray, Open Approach (05/12/22) Detachment at Left Foot, Partial 3rd Ray, Open Approach (05/12/22) Detachment at Left Foot, Partial 4th Ray, Open Approach (05/12/22) Detachment at Left Foot, Partial 5th Ray, Open Approach (05/12/22) Dilation of Left Anterior Tibial Artery using Drug-Coated Balloon, Percutaneous Approach (05/12/22) Excision of Ascending Colon, Via Natural or Artificial Opening Endoscopic, Diagnostic (01/11/23) Excision of Left Foot Skin, External Approach (04/04/22) Excision of Right Foot Subcutaneous Tissue and Fascia, Open Approach (03/16/23) Excision of Stomach, Pylorus, Via Natural or Artificial Opening Endoscopic, Diagnostic (01/11/23) Insertion of Infusion Device into Superior Vena Cava, Percutaneous Approach (03/16/23) Insertion of Tunneled Vascular Access Device into Chest Subcutaneous Tissue and Fascia, Percutaneous Approach (04/04/22) Release Cecum, Open Approach (01/11/23) Resection of Right Large Intestine, Open Approach (01/11/23) Transfusion of Nonautologous Red Blood Cells into Peripheral Vein, Percutaneous Approach (03/16/23) Ultrasonography of Superior Vena Cava, Guidance (03/16/23) Labs on day of discharge: Laboratory Results - last 24 hr 05/02/23 05/02/23 05/02/23 16:12 18:26 19:59 WBC RBC Hgb Hct MCV MCH MCHC RDW Plt Count MPV Immature Gran % (Auto) Neut % (Auto) Lymph % (Auto) [place] % (Auto) Eos % (Auto) Baso % (Auto) Lymph # (Auto) [place] # (Auto) Eos # (Auto) Baso # (Auto) Abs Immat Gran (auto) Absolute Neuts (auto) Absolute Nucleated RBC Nucleated RBC % (auto) Sodium Potassium Chloride Carbon Dioxide Anion Gap BUN Creatinine Estim Creat Clear Calc Estimated GFR POC Glucose 160 H 171 H Fasting Glucose Calcium Total Bilirubin AST ALT Alkaline Phosphatase Total Protein Albumin Random Vancomycin 15.8 05/03/23 05/03/23 05:42 07:28 WBC 12.3 H RBC 2.91 L Hgb 8.3 L Hct 25.5 L MCV 87.6 MCH 28.5 MCHC 32.5 RDW 15.6 Plt Count 368 MPV 9.8 Immature Gran % (Auto) 0.6 H Neut % (Auto) 73.1 H Lymph % (Auto) 17.0 L [place] % (Auto) 5.3 Eos % (Auto) 3.6 Baso % (Auto) 0.4 Lymph # (Auto) 2.1 [place] # (Auto) 0.7 Eos # (Auto) 0.4 Baso # (Auto) 0.1 Abs Immat Gran (auto) 0.08 H Absolute Neuts (auto) 9.0 H Absolute Nucleated RBC 0.000 Nucleated RBC % (auto) 0.0 Sodium 136 Potassium 4.0 Chloride 102 Carbon Dioxide 26 Anion Gap 12 BUN 13 Creatinine 1.09 Estim Creat Clear Calc 79.4 Estimated GFR > 60 POC Glucose 248 H Fasting Glucose 282 H Calcium 8.7 Total Bilirubin 0.1 AST 10 ALT 13 Alkaline Phosphatase 69 Total Protein 6.6 Albumin 2.8 L Random Vancomycin Discharge Plan Discharge Anticipated Discharge Date/Time: 05/03/23 11:24 Patient Disposition: Xfer [facility] Discharge Diagnosis: Right below-knee amputation Acute on chronic anemia of chronic disease Chronic kidney disease stage 3 [place] carcinoma of cecum Referrals: [facility] [Other] - 1 Week Gissel Patino MD [Primary Care Provider] - 1 Week Discharge Medications: Continued clopidogrel 75 mg tablet 1 tab PO DAILY tamsulosin 0.4 mg capsule 1 cap PO BEDTIME methadone 10 mg/mL Concentrate 30 mg PO DAILY atorvastatin 10 mg tablet 10 mg PO BEDTIME citalopram 20 mg tablet 20 mg PO DAILY omeprazole 20 mg Capsule,Delayed Release(Dr/Ec) 20 mg PO DAILY@0630 polyethylene glycol 3350 [Miralax] 17 gram/dose powder 17 g PO DAILY PRN (Reason: constipation) Qty: 119 0RF acetaminophen 325 mg Tablet 650 mg PO Q4H PRN (Reason: Fever) acetaminophen 325 mg Tablet 975 mg PO Q8H PRN (Reason: Pain) loperamide [Imodium A-D] 2 mg Tablet 2 mg PO Q4H PRN (Reason: Loose Stool) Rx Instructions: administer after each loose stool until symptoms controlled; do not exceed 8 mg per 24 hrs bisacodyl 10 mg Suppository 10 mg MT DAILY PRN (Reason: Constipation) ferrous sulfate 325 mg (65 mg iron) Tablet 325 mg PO BID Fleet Enema 19-7 gram/118 mL Enema 118 ml MT DAILY PRN (Reason: Constipation) alum-mag hydroxide-simeth 200-200-20 mg/5 mL Suspension 15 ml PO Q6H PRN (Reason: Dyspepsia) Rx Instructions: administer between meals and at bedtime insulin lispro 100 unit/mL Solution 1 sliding scale dose SUBCUT USEASDIRECTD Protocol: Insulin Correction Scale Less than or equal to 110 ---- Give (units): 0 111 to 150 Give (units): 0 151 to 200 Give (units): 2 201 to 250 Give (units): 4 251 to 300 Give (units): 6 301 to 350 Give (units): 8 Greater than 350 Give (units): 10 Call MD if Blood Glucose > : 350 hydroxyzine HCl 10 mg Tablet 10 mg PO Q6H PRN (Reason: Anxiety) ondansetron HCl 4 mg Tablet 4 mg PO Q8H PRN (Reason: Nausea) nifedipine 60 mg Tablet Extended Release 24hr 60 mg PO DAILY oxycodone 5 mg Tablet 5 mg PO Q4H PRN (Reason: Pain, Moderate(Pain Scale 4-6)) Qty: 15 0RF Rx Instructions: Partial Fill upon patient request. Dakin's Solution 0.25 % Solution 1 irrig TOPICAL BID Changed insulin glargine [Lantus U-100 Insulin] 100 unit/mL solution 10 unit subcut BEDTIME Qty: 10 0RF Discontinued aspirin 81 mg Tablet,Chewable 81 mg PO DAILY Santyl 250 unit/gram Ointment 1 appl TOPICAL BID vancomycin in 0.9 % sodium chl 750 mg/250 mL Solution 750 mg IV Q24H Rx Instructions: last dose on 04/27, then switch to doxycycline doxycycline hyclate 100 mg tablet 100 mg PO BID 30 Days Qty: 60 1RF Rx Instructions: start on 04/28/23, after vancomycin is complete on 04/27/23 Discharge Orders: Discharge Order (Routine); Ordered 05/03/23 Ordered By: John Pace Diet: Diabetic diet Activity on Discharge: As tolerated Stand Alone Forms: Patient Portal Discharge page Activity Restrictions/Additional Instructions: Wound care upon discharge: xeroform, 4x4 and Kerlix wrap to be changed daily. Please call Dr. Brown at [phone] for 2 week follow up for suture and staple removal Care Plan Goals: Monitor blood sugars adjust dose of insulin as needed Follow-up with Oncology for adeno carcinoma of cecum Physical therapy for right BKA Health Concerns: Take all medications as prescribed Plan of Treatment: Outpatient follow-up with primary care physician and Dr. Brown Assessment: As above
--- NOTE | 2023-05-03 11:37 | MHC.CM.PN ---
PT BEING DCD TODAY AT 2 TO [facility] GUS NOTIFIED OF DC
[2023-05-03 11:45] LABS: Glucose, Whole Blood 227 mg/dL (60-115)
[2023-05-03 12:00] VITALS: BP 124/81; PULSE 95; RESP 18; TEMP 36.2; O2SAT 100
[2023-05-03 12:12] VITALS: BP 124/81; PULSE 95; O2SAT 100
--- NOTE | 2023-05-03 15:07 | MHC.CM.PN ---
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
[2023-05-03 15:18] VITALS: BP 132/69; PULSE 88; RESP 20; TEMP 36.5; O2SAT 100
--- NOTE | 2023-05-03 15:39 | P.PNIM_ITS ---
Subjective Subjective Date of Service: 05/03/23 Interval History: No acute issues good pain control, right BKA stump tolerating diet no nausea, no vomiting, no abdominal pain, offers no other complaints, no lightheadedness, no dizziness, no chest pain, no palpitations. Review of Systems all other system reviewed and negative Physical Exam 2 Vital Signs: Vital Signs: Last Vital Signs Temp 97.7 F 05/03/23 15:18 Pulse 88 05/03/23 15:18 Resp 20 05/03/23 15:18 BP 132/69 05/03/23 15:18 Pulse Ox 100 05/03/23 15:18 O2 Del Method Room Air 05/03/23 15:18 O2 Flow Rate 2.0 04/28/23 19:56 BMI result Body Mass Index 30.6 Const: Other: Constitutional : Awake, interactive, not in distress Neck : Normal inspection, Supple Cardiovascular : RRR, no JVD, no left leg edema Respiratory : good bilateral air entry, no crackles, wheezes or rhonchi Gastrointestinal: soft, Normal bowel sounds, Non tender Skin : Right BKA dressing in place Neurological : Alert & oriented x3, No focal deficit Psych appropriate affect Objective Data Active Medications Acetaminophen (Acetaminophen 325 Mg Tablet) 650 mg PO Q6H PRN PRN Reason: Pain, Mild (Pain Scale 1-3) Last Admin: 05/02/23 15:44 Dose: 650 mg Documented By: SALAZAR Al Hydroxide/Mg Hydroxide (Magnesium Hydrox/Alum Hydrox 30 Ml Oral.Susp) 15 ml PO Q6H PRN PRN Reason: Dyspepsia Atorvastatin Calcium (Atorvastatin Calcium 10 Mg Tablet) 10 mg PO BEDTIME [facility] Last Admin: 05/02/23 20:54 Dose: 10 mg Documented By: EDIL Bisacodyl (Bisacodyl 10 Mg Supp.Rect) 10 mg ME DAILY PRN PRN Reason: Constipation Clopidogrel Bisulfate (Clopidogrel Bisulfate 75 Mg Tablet) 75 mg PO DAILY [facility] Last Admin: 05/03/23 08:48 Dose: 75 mg Documented By: ARNULFO Dextrose (Dextrose 50 % 25 Gm/50 Ml Syringe) 25 gm IVPUSH Q15M PRN; Protocol PRN Reason: per Hypoglycemia Standing Ord. Docusate Sodium (Docusate Sodium 100 Mg Capsule) 100 mg PO DAILY PRN PRN Reason: Constipation Last Admin: 04/29/23 13:17 Dose: 100 mg Documented By: BETINA Escitalopram Oxalate (Escitalopram Oxalate 10 Mg Tablet) 10 mg PO DAILY [facility] Last Admin: 05/03/23 08:48 Dose: 10 mg Documented By: ARNULFO Ferrous Sulfate (Ferrous Sulfate 324 Mg Tablet.) 324 mg PO BID [facility] Last Admin: 05/03/23 08:48 Dose: 324 mg Documented By: ARNULFO Glucose (Glucose Gel 15 Gm Gel..Gram.) 15 gm PO Q15M PRN; Protocol PRN Reason: per Hypoglycemia Standing Ord. Heparin Sodium (Porcine) (Heparin Sodium,Porcine 5,000 Unit/Ml Vial) 5,000 unit SUBCUT Q12H [facility] Last Admin: 05/03/23 05:32 Dose: 5,000 unit Documented By: EDIL Hydroxyzine HCl (Hydroxyzine Hcl 10 Mg Tablet) 10 mg PO Q6H PRN PRN Reason: Anxiety Last Admin: 05/01/23 08:14 Dose: 10 mg Documented By: ABHAY Insulin Glargine (Insulin Glargine,Hum.Rec.Anlog 100 Unit/Ml 10 Ml Vial) 10 unit SUBCUT BEDTIME [facility] Last Admin: 05/02/23 20:53 Dose: 10 unit Documented By: EDIL Insulin Human Lispro (Insulin Lispro 100 Unit/Ml 3 Ml Vial) 0 unit SUBCUT QIDACHS [facility]; Protocol Last Admin: 05/03/23 11:58 Dose: 8 unit Documented By: ARNULFO Loperamide HCl (Loperamide Hcl 2 Mg Capsule) 2 mg PO Q4H PRN PRN Reason: Loose Stool Last Admin: 04/30/23 10:15 Dose: 2 mg Documented By: ABHAY Methadone HCl (Methadone Hcl 20 Mg/2 Ml Oral.Conc) 30 mg PO DAILY [facility] Last Admin: 05/03/23 08:48 Dose: 30 mg Documented By: ARNULFO Nifedipine (Nifedipine Er 60 Mg Tab.Er.24) 60 mg PO DAILY [facility]; Protocol Last Admin: 05/03/23 08:48 Dose: 60 mg Documented By: ARNULFO Omeprazole (Omeprazole 20 Mg Capsule.) 20 mg PO DAILY@0630 [facility] Last Admin: 05/03/23 05:33 Dose: 20 mg Documented By: EDIL Ondansetron HCl (Ondansetron Hcl 4 Mg/2 Ml Vial) 4 mg IVPUSH Q8H PRN PRN Reason: Nausea and Vomiting Last Admin: 04/28/23 19:45 Dose: 4 mg Documented By: JAYLAN Oxycodone HCl (Oxycodone Hcl Immed Release 5 Mg Tablet) 10 mg PO Q4H PRN PRN Reason: Pain, Moderate(Pain Scale 4-6) Last Admin: 05/03/23 03:14 Dose: 10 mg Documented By: EDIL Pharmacy Consult (Consult Rx Vancomycin Dosing) 1 each MISCELLANE DAILY PRN PRN Reason: Consult order Polyethylene Glycol (Polyethylene Glycol 3350 17 Gm Powd.Pack) 17 gm PO DAILY PRN PRN Reason: constipation Sodium Biphosphate/Sodium Phosphate (Sodium Phosphate,[place]-Dibasic 133 Ml Enema) 118 ml ME DAILY PRN PRN Reason: Constipation Sodium Chloride (0.9 % Sodium Chloride Flush 3 Ml Syringe) 3 ml IVFLUSH QSHIFT [facility] Last Admin: 05/03/23 08:56 Dose: Not Given Documented By: ARNULFO Non-Admin Reason: Previously Administered Sodium Hypochlorite (Sodium Hypochlorite 0.25% 473 Ml Solution) 1 appl TOPICAL BID [facility] Last Admin: 05/03/23 08:56 Dose: Not Given Documented By: ARNULFO Non-Admin Reason: wound managed by surgery Tamsulosin HCl (Tamsulosin Hcl 0.4 Mg Capsule) 0.4 mg PO BEDTIME [facility] Last Admin: 05/02/23 20:54 Dose: 0.4 mg Documented By: EDIL Labs 05/03/23 05:42 05/03/23 05:42 Labs: Laboratory Results - last 24 hr 05/02/23 05/02/23 05/02/23 16:12 18:26 19:59 MCV MCH MCHC RDW Plt Count MPV Immature Gran % (Auto) Neut % (Auto) Lymph % (Auto) [place] % (Auto) Eos % (Auto) Baso % (Auto) Lymph # (Auto) [place] # (Auto) Eos # (Auto) Baso # (Auto) Abs Immat Gran (auto) Absolute Neuts (auto) Absolute Nucleated RBC Nucleated RBC % (auto) Anion Gap Estim Creat Clear Calc Estimated GFR POC Glucose 160 H 171 H Fasting Glucose Calcium Total Bilirubin AST ALT Alkaline Phosphatase Total Protein Albumin Random Vancomycin 15.8 05/03/23 05/03/23 05/03/23 05:42 07:28 11:30 MCV 87.6 MCH 28.5 MCHC 32.5 RDW 15.6 Plt Count 368 MPV 9.8 Immature Gran % (Auto) 0.6 H Neut % (Auto) 73.1 H Lymph % (Auto) 17.0 L [place] % (Auto) 5.3 Eos % (Auto) 3.6 Baso % (Auto) 0.4 Lymph # (Auto) 2.1 [place] # (Auto) 0.7 Eos # (Auto) 0.4 Baso # (Auto) 0.1 Abs Immat Gran (auto) 0.08 H Absolute Neuts (auto) 9.0 H Absolute Nucleated RBC 0.000 Nucleated RBC % (auto) 0.0 Anion Gap 12 Estim Creat Clear Calc 79.4 Estimated GFR > 60 POC Glucose 248 H 227 H Fasting Glucose 282 H Calcium 8.7 Total Bilirubin 0.1 AST 10 ALT 13 Alkaline Phosphatase 69 Total Protein 6.6 Albumin 2.8 L Random Vancomycin Assessment and Plan (1) Diabetes type 2, controlled: Status: Acute (2) Status post below knee amputation of right lower extremity: Status: Acute Plan 1) 57-year-old male with history of chronic normocytic anemia, insulin-dependent type 2 diabetes, chronic kidney disease stage III, history of opiate use disorder on methadone patient denies recent use, peripheral artery disease on DAPT, with history of osteomyelitis s/p left TMA 05/29 and recent admission from 03/16 to 03/22 for osteomyelitis R heel, discharged on IV vanco 1 g with last dose scheduled for 04/27 admitted for non healing ulceration of the right calcaneus with interval osteomyelitis admitted to medical floor treated with IV vancomycin and Zosyn, underwent right below-knee amputation postprocedure seen by Physical therapy and they recommend short-term rehab dressing change by Dr. Brown stump incision clean and dry healing well, outpatient follow-up with Dr. Brown in 2 weeks for removal of junaid, continue analgesics for pain. 2.Acute on chronic- anemia of chronic disease with history of Colon cancer, moderately differentiated adenocarcinoma of cecum 01/20/[address] Ruvalcaba received 2 units of packed RBC hematocrit improved and stable aspirin discontinued. 3.Insulin-dependent type 2 diabetes noted to have elevated blood sugars dose of Lantus increased to 10 units at bedtime continue insulin sliding scale and follow diabetic diet 4.CKD stage 3 avoid nephrotoxins 5.Opioid dependence -continue methadone 6.Hypertension -continue home medications noted to have stable blood pressures. 7.PAD on plavix f/u with Dr Brown Heparin Full code Patient will require ongoing hospitalization for right BKA surgical follow-up and pain management Time Spent With Patient Time: Total time managing care of this patient today ____ minutes. Quality Stroke Does the patient have a stroke diagnosis?: No VTE Prior VTE?: No VTE Risk Level:: Medical - moderate - high VTE Device Contraindication: Treatment Not Indicated VTE Drug Contraindication: N/A - Med Ordered
[2023-05-03 16:16] LABS: Glucose, Whole Blood 206 mg/dL (60-115)
[2023-05-03] MEDS: 0.9 % Sodium Chloride Flush 3 ML SYRINGE IVFLUSH ×2 (16:45→21:12)
[2023-05-03 19:24] VITALS: BP 146/64; PULSE 87; RESP 18; TEMP 36.3; O2SAT 100
[2023-05-03 20:35] LABS: Glucose, Whole Blood 288 mg/dL (60-115)
[2023-05-03] MEDS: Insulin Glargine,Hum.rec.anlog 100 UNIT/ML 10 ML VIAL 10 UNIT SUBCUT (21:12)
[2023-05-03] MEDS: Tamsulosin HCL 0.4 MG CAPSULE PO (21:12)
[2023-05-03] MEDS: Atorvastatin Calcium 10 MG TABLET PO (21:12)
[2023-05-04 03:47] VITALS: BP 143/64; PULSE 84; RESP 18; TEMP 36.1; O2SAT 99
[2023-05-04] MEDS: Omeprazole 20 MG CAPSULE.DR PO (05:58)
[2023-05-04] MEDS: Heparin Sodium,Porcine 5,000 UNIT/ML VIAL 5000 UNIT SUBCUT (05:58)
[2023-05-04] MEDS: oxyCODONE HCl Immed Release 5 MG TABLET 10 MG PO ×2 (05:59→10:52)
[2023-05-04 07:27] VITALS: BP 140/74; PULSE 75; RESP 16; TEMP 36.9; O2SAT 99
[2023-05-04 07:34] LABS: Glucose, Whole Blood 213 mg/dL (60-115)
[2023-05-04] MEDS: Insulin Lispro 100 UNIT/ML 3 ML VIAL SUBCUT (08:07)
[2023-05-04] MEDS: Clopidogrel Bisulfate 75 MG TABLET PO (08:08)
[2023-05-04] MEDS: Ferrous Sulfate 324 MG TABLET.DR PO (08:08)
[2023-05-04] MEDS: Escitalopram Oxalate 10 MG TABLET PO (08:08)
[2023-05-04] MEDS: 0.9 % Sodium Chloride Flush 3 ML SYRINGE IVFLUSH (08:08)
[2023-05-04] MEDS: methADONE HCl 20 MG/2 ML ORAL.CONC 30 MG PO (08:08)
[2023-05-04] MEDS: NIFEdipine ER 60 MG TAB.ER.24 PO (08:08)
--- NOTE | 2023-05-04 09:31 | P.DS_ITS ---
DS: Providers Provider Date of Service: 05/04/23 Date of admission: 04/26/23 16:39 Primary care physician: Gissel Patino MD Consults: 04/26/23 15:44 Consult to Vascular Surgery Stat Consulting Provider: [facility] Vascular Services Reason for consultation: nonhealing right heel wound Has provider been notified: Yes 04/26/23 17:03 Consult to Infectious Diseases Routine Consulting Provider: [facility] Infectious Disease Reason for consultation: osteomyelitis R calcaneous DS: Diagnosis Discharge Diagnosis (1) Diabetes type 2, controlled: Status: Acute (2) Status post below knee amputation of right lower extremity: Status: Acute DS: Summary Hospital Course Hospital Course: History of presenting illness: Date of Service: 04/26/23 Attending physician on admission: Da Hood Chief Complaint: foot infection 57-year-old male with history of chronic normocytic anemia, insulin-dependent type 2 diabetes, chronic kidney disease stage III, history of opiate use disorder on methadone patient denies recent use, peripheral artery disease on DAPT, with history of osteomyelitis s/p left TMA 05/29 and recent admission from 03/16- for osteomyelitis R heel, discharged on IV vanco 1 g with last dose scheduled for 04/27 advised to follow-up with Dr. Brown. He recently saw Dr. Brown who felt the wounds of the bilateral heels were more pressure r/t and arterial i maging was ordered but not yet performed. Unfortuatnely, the patient reports the wound of the right heel had been improving but about 2 weeks ago developed a foul odor, purulent drainage, in significant pain despite compliance with vanco. He does also report some vertigo like symptoms following vanco administration. On arrival, vital stable. He is afebrile, no hypotension. There is a leukocyto sis of 14.3. Has acute on chronic normocytic anemia with H/H 6.2/19.6%. Renal function normal, electrolyte levels normal. CRP 18.38, ESR pending. Albumin 2.9. X-ray of the right foot showed interval calcaneal osteomyelitis and increasing soft tissue air suspicious for gas-forming organism. ED provider did discuss case with Dr. Brown who is recommending admission and amputation. In the ED, given dose of IV Zosyn and ordered for 1 unit packed red blood cells. Hospital course: 1) 57-year-old male with history of chronic normocytic anemia, insulin-dependent type 2 diabetes, chronic kidney disease stage III, history of opiate use disorder on methadone patient denies recent use, peripheral artery disease on DAPT, with history of osteomyelitis s/p left TMA 05/29 and recent admission from 03/16 to 03/22 for osteomyelitis R heel, discharged on IV vanco 1 g with last dose scheduled for 04/27 admitted for non healing ulceration of the right calcaneus with interval osteomyelitis admitted to medical floor treated with IV vancomycin and Zosyn, subsequently underwent right below-knee amputation postprocedure seen by Physical therapy and they recommend short-term rehab dressing change by Dr. Brown stump incision clean and dry healing well, recommend outpatient follow-up with Dr. Brown in 2 weeks for removal of junaid, continue analgesics for pain. 2.Acute on chronic- anemia of chronic disease with history of Colon cancer, moderately differentiated adenocarcinoma of cecum 01/20/[address] Ruvalcaba received 2 units of packed RBC hematocrit improved and stable aspirin discontinued. 3.Insulin-dependent type 2 diabetes noted to have elevated blood sugars dose of Lantus increased to 10 units at bedtime continue insulin sliding scale and follow diabetic diet 4.CKD stage 3 avoid nephrotoxins 5.Opioid dependence -continue methadone 6.Hypertension -continue home medications noted to have stable blood pressures. Time Spent with Patient Time attestation: Total time managing care of this patient today ____ minutes. Discharge coordination time: Greater than 30 minutes Quality: Safe Use of Opioids Does Pt have an Active Cancer Diagnosis on the Problem List?: No Quality: Stroke Does the patient have a stroke diagnosis?: No Physical Exam Vital Signs: Vital Signs: Last Vital Signs Temp 98.4 F 05/04/23 07:27 Pulse 75 05/04/23 07:27 Resp 16 05/04/23 07:27 BP 140/74 H 05/04/23 07:27 Pulse Ox 99 05/04/23 07:27 O2 Del Method Room Air 05/04/23 07:27 O2 Flow Rate 2.0 04/28/23 19:56 BMI result Body Mass Index 30.6 Const: Other: Constitutional : Awake, interactive, not in distress Neck : Normal inspection, Supple Cardiovascular : RRR, no JVD, no left leg edema Respiratory : good bilateral air entry, no crackles, wheezes or rhonchi Gastrointestinal: soft, Normal bowel sounds, Non tender Skin : Right BKA dressing in place , no drainage,ch. left transmetatarsal amputation. Neurological : Alert & oriented x3, No focal deficit Psych appropriate affect DS: Data Data Completed and Pending Completed studies during hospitalization [Text1]: Pending at discharge 04/28/23 13:25 Surgical [PTH] Routine Procedures Detachment at Left 4th Toe, Complete, Open Approach (04/04/22) Detachment at Left Foot, Partial 1st Ray, Open Approach (05/12/22) Detachment at Left Foot, Partial 2nd Ray, Open Approach (05/12/22) Detachment at Left Foot, Partial 3rd Ray, Open Approach (05/12/22) Detachment at Left Foot, Partial 4th Ray, Open Approach (05/12/22) Detachment at Left Foot, Partial 5th Ray, Open Approach (05/12/22) Dilation of Left Anterior Tibial Artery using Drug-Coated Balloon, Percutaneous Approach (05/12/22) Excision of Ascending Colon, Via Natural or Artificial Opening Endoscopic, Diagnostic (01/11/23) Excision of Left Foot Skin, External Approach (04/04/22) Excision of Right Foot Subcutaneous Tissue and Fascia, Open Approach (03/16/23) Excision of Stomach, Pylorus, Via Natural or Artificial Opening Endoscopic, Diagnostic (01/11/23) Insertion of Infusion Device into Superior Vena Cava, Percutaneous Approach (03/16/23) Insertion of Tunneled Vascular Access Device into Chest Subcutaneous Tissue and Fascia, Percutaneous Approach (04/04/22) Release Cecum, Open Approach (01/11/23) Resection of Right Large Intestine, Open Approach (01/11/23) Transfusion of Nonautologous Red Blood Cells into Peripheral Vein, Percutaneous Approach (03/16/23) Ultrasonography of Superior Vena Cava, Guidance (03/16/23) Labs on day of discharge: Laboratory Results - last 24 hr 05/03/23 05/03/23 05/03/23 11:30 16:05 20:30 POC Glucose 227 H 206 H 288 H 05/04/23 07:30 POC Glucose 213 H Discharge Plan Discharge Anticipated Discharge Date/Time: 05/04/23 11:24 Patient Disposition: [facility] Discharge Diagnosis: Right below-knee amputation Acute on chronic anemia of chronic disease Chronic kidney disease stage 3 Adeno carcinoma of cecum Referrals: [facility] [Other] - 1 Week Gissel Patino MD [Primary Care Provider] - 1 Week Discharge Medications: Continued clopidogrel 75 mg tablet 1 tab PO DAILY tamsulosin 0.4 mg capsule 1 cap PO BEDTIME methadone 10 mg/mL Concentrate 30 mg PO DAILY atorvastatin 10 mg tablet 10 mg PO BEDTIME citalopram 20 mg tablet 20 mg PO DAILY omeprazole 20 mg Capsule,Delayed Release(Dr/Ec) 20 mg PO DAILY@0630 polyethylene glycol 3350 [Miralax] 17 gram/dose powder 17 g PO DAILY PRN (Reason: constipation) Qty: 119 0RF acetaminophen 325 mg Tablet 650 mg PO Q4H PRN (Reason: Fever) acetaminophen 325 mg Tablet 975 mg PO Q8H PRN (Reason: Pain) loperamide [Imodium A-D] 2 mg Tablet 2 mg PO Q4H PRN (Reason: Loose Stool) Rx Instructions: administer after each loose stool until symptoms controlled; do not exceed 8 mg per 24 hrs bisacodyl 10 mg Suppository 10 mg TX DAILY PRN (Reason: Constipation) ferrous sulfate 325 mg (65 mg iron) Tablet 325 mg PO BID Fleet Enema 19-7 gram/118 mL Enema 118 ml TX DAILY PRN (Reason: Constipation) alum-mag hydroxide-simeth 200-200-20 mg/5 mL Suspension 15 ml PO Q6H PRN (Reason: Dyspepsia) Rx Instructions: administer between meals and at bedtime insulin lispro 100 unit/mL Solution 1 sliding scale dose SUBCUT USEASDIRECTD Protocol: Insulin Correction Scale Less than or equal to 110 ---- Give (units): 0 111 to 150 Give (units): 0 151 to 200 Give (units): 2 201 to 250 Give (units): 4 251 to 300 Give (units): 6 301 to 350 Give (units): 8 Greater than 350 Give (units): 10 Call MD if Blood Glucose > : 350 hydroxyzine HCl 10 mg Tablet 10 mg PO Q6H PRN (Reason: Anxiety) ondansetron HCl 4 mg Tablet 4 mg PO Q8H PRN (Reason: Nausea) nifedipine 60 mg Tablet Extended Release 24hr 60 mg PO DAILY oxycodone 5 mg Tablet 5 mg PO Q4H PRN (Reason: Pain, Moderate(Pain Scale 4-6)) Qty: 15 0RF Rx Instructions: Partial Fill upon patient request. Dakin's Solution 0.25 % Solution 1 irrig TOPICAL BID Changed insulin glargine [Lantus U-100 Insulin] 100 unit/mL solution 10 unit subcut BEDTIME Qty: 10 0RF Discontinued aspirin 81 mg Tablet,Chewable 81 mg PO DAILY Santyl 250 unit/gram Ointment 1 appl TOPICAL BID vancomycin in 0.9 % sodium chl 750 mg/250 mL Solution 750 mg IV Q24H Rx Instructions: last dose on 04/27, then switch to doxycycline doxycycline hyclate 100 mg tablet 100 mg PO BID 30 Days Qty: 60 1RF Rx Instructions: start on 04/28/23, after vancomycin is complete on 04/27/23 Discharge Orders: Discharge Order (Routine); Ordered 05/04/23 Ordered By: John Pace Diet: Diabetic diet Activity on Discharge: As tolerated Stand Alone Forms: Patient Portal Discharge page Activity Restrictions/Additional Instructions: Wound care upon discharge: xeroform, 4x4 and Kerlix wrap to be changed daily. Please call Dr. Brown at [phone] for 2 week follow up for suture and staple removal Care Plan Goals: Monitor blood sugars adjust dose of insulin as needed Follow-up with Oncology for adeno carcinoma of cecum Physical therapy for right BKA Health Concerns: Take all medications as prescribed Plan of Treatment: Outpatient follow-up with primary care physician and Dr. Brown Assessment: As above
[2023-05-04 10:18] VITALS: BP 140/74; PULSE 75; O2SAT 99
== END 2023-05-04 11:16 | disposition skilled nursing facility (03) | DRG 240 ==
LOC: HO.ED 13:54 → HO.EDOVER 16:52 → HO.S3 04-27 12:29
PROVIDERS: Anesthesiology; Hospitalist; Physician Assistant; Surgery Vascular Surgery; Admitting Provider Physician Assistant; Emergency Provider Emergency Medicine; PCP Family Medicine Geriatric Medicine; Visit Provider Hospitalist
PROC: 0Y6H0Z2 Detachment at Right Lower Leg, Mid, Open Approach (ICD-10-PCS; CPT 27880; principal; 2023-04-28 12:00)
DX: E11.52 Type 2 diabetes mellitus with diabetic peripheral angiopathy with gangrene (principal); C18.0 Malignant neoplasm of cecum; F11.20 Opioid dependence, uncomplicated; L97.414 Non-pressure chronic ulcer of right heel and midfoot with necrosis of bone; M86.8X7 Other osteomyelitis, ankle and foot; E11.69 Type 2 diabetes mellitus with other specified complication; N18.30 Chronic kidney disease, stage 3 unspecified; E11.621 Type 2 diabetes mellitus with foot ulcer; N40.0 Benign prostatic hyperplasia without lower urinary tract symptoms; E11.65 Type 2 diabetes mellitus with hyperglycemia; E11.22 Type 2 diabetes mellitus with diabetic chronic kidney disease; D63.1 Anemia in chronic kidney disease; Z79.02 Long term (current) use of antithrombotics/antiplatelets; Z79.899 Other long term (current) drug therapy
CPT/HCPCS: 36415; 73630; 80048; 80053; 80076; 80202; 82947; 83735; 85014; 85018; 85025; 85652; 86140; 86850; 86900; 86901; 86923; 88307; 88311; 97110; 97162; 97530; 99285; J1100; J1643; J1940; J2250; J2270; J2405; J2543; J2765; J3370; J3371; P9016

== ENCOUNTER → 2023-04-26 16:39 | Outpatient (BNV) | payer MEDICARE, MEDICAID, SELFPAY | PROVIDERS: Admitting Provider Physician Assistant; Emergency Provider Emergency Medicine; Visit Provider Internal Medicine | DX: E11.621 Type 2 diabetes mellitus with foot ulcer (principal); L97.414 Non-pressure chronic ulcer of right heel and midfoot with necrosis of bone; M86.8X7 Other osteomyelitis, ankle and foot; R23.4 Changes in skin texture | CPT/HCPCS: 99222 ==

== ENCOUNTER → 2023-04-26 16:39 | Outpatient (BNV) | payer MEDICARE, MEDICAID, SELFPAY | PROVIDERS: Admitting Provider Physician Assistant; Emergency Provider Emergency Medicine; Visit Provider Physician Assistant | DX: E11.9 Type 2 diabetes mellitus without complications (principal); Z89.511 Acquired absence of right leg below knee | CPT/HCPCS: 99223; 99232; 99233; 99239 ==

== ENCOUNTER → 2023-04-26 16:39 | Outpatient (BNV) | payer MEDICARE, MEDICAID, SELFPAY | PROVIDERS: Admitting Provider Physician Assistant; Emergency Provider Emergency Medicine; Visit Provider Surgery Vascular Surgery | DX: Z89.511 Acquired absence of right leg below knee (principal) | CPT/HCPCS: 27880; 99024; 99222 ==

== ENCOUNTER 2023-05-17 12:44 | Outpatient (AMB) | payer MEDICARE, MEDICAID, SELFPAY ==
--- NOTE | 2023-05-17 12:54 | MHC.OFFVIS ---
Intake Intake Visit Reasons: 2 week post op Right BKA 04/28/2023 Intake Note: 2 week follow up Right BKA 04/28/23, pt is currently at [facility]. Has junaid and sutures.Has Left transment amp w/ pressure ulcer on the heel. Pt is doing well, pt dressing changes daily for BKA and PRN for heel when he has drainage, no drainage recently, has alginate on heel Accompanied by: Ambulance drivers Allergies No Known Allergies [No Known Allergies*] Allergy (Verified 05/17/23 12:57) HPI 2 week post op Right BKA 04/28/2023 HPI Details Very pleasant 57-year-old gentleman presents for follow-up regarding right BKA. Appears to be doing extremely well. No interval issues. In significantly better spirits. He is now for follow-up for right BKA and in addition he has a left heel pressure ulcer. [facility] Medical History (Updated 05/18/23 @ 07:49 by Guy Brown MD) Anemia Diabetes type 2, controlled Eschar of heel Chronic kidney disease, stage 3 Acute on chronic anemia Morbid obesity Sleep apnea Colon cancer Colonic mass Migraine Anemia History of prostate cancer Fever of unknown origin Chronic anemia CKD (chronic kidney disease) Osteomyelitis PAD (peripheral artery disease) Diabetic infection of left foot Diabetes Opioid use disorder Surgical History (Updated 05/18/23 @ 07:48 by Guy Brown MD) Status post below knee amputation of right lower extremity Hx of colectomy (01/20/23) S/P transmetatarsal amputation of foot Family History Mother No pertinent family history Social History Household Members: Spouse Household Members Other:: 2 Housing: Apartment Do you presently have visiting nurse or other home services: Yes Alcohol intake: never Patient Tobacco Use Status: Never used Tobacco Substance Use Type: Opiates Advance Directives Date on File: 01/11/23 service: No Current occupational status: disabled Review of Systems Const All systems reviewed & are unremarkable except as noted in HPI and below Reports no additional complaints ENT Reports Normal hearing present Card Denies chest pain, Denies chest pain at rest, Denies chest pain with activity and Denies pedal edema Resp Denies cough GI Denies abdominal pain Musc Denies abnormal gait, Denies muscle cramps and Denies radiating pain into limb Skin/Breast Denies skin ulcer and Denies wounds Neuro Reports Normal hearing present and Denies abnormal gait Psych Reports no additional complaints Physical Exam Const General: cooperative, healthy appearing and comfortable Orientation/consciousness: oriented to person, oriented to place and oriented to time HEENT Head: Yes normal to inspection Neck Neck: Yes normal visual inspection Carotids: no bruits Chest Chest palpation & inspection: normal inspection of the chest Resp Effort & Inspection: normal respiratory effort and able to speak in complete sentences Auscultation: clear to auscultation bilaterally, no crackles, no rales, no rhonchi and no wheezes Cardio Rate: regular rate Rhythm: regular rhythm Heart sounds: S1 normal heart sound present and S2 normal heart sound present Bruits: no carotid bruits Peripheral pulses: Peripheral pulses 2+ throughout GI Inspection: Yes normal to inspection Skin Other: Right BKA stump healing well sutures and junaid removed Left heel pressure ulcer very clean with an alginate dressing which was examined and measures about 2 cm in diameter Wounds: amputation site and wounds noted Hair: normal Neuro General: oriented to person, oriented to place and oriented to time Cranial nerves: Yes CN's II-XII intact bilaterally and Yes Normal hearing present Cognition (Neuro): normal cognition Motor exam (neuro): 5/5 motor strength present throughout Extrem Other: venous exam: No significant superficial varicosities or spider telangiectasias, minimal edema General: No clubbing, No cyanosis and No edema Psych Appearance: grossly normal Mental Status: mental status grossly normal Speech and movement: Normal speech and movement present Assessment & Plan Assessment & Plan (1) Status post below knee amputation of right lower extremity: Code(s): Z89.511 - Acquired absence of right leg below knee Plan: In short right BKA appears to be doing relatively well. Sutures and junaid were removed. Will have him come back in approximately 2 weeks time to better assess incision line for possible prosthetic. Thank you for allowing us to assist in his care. If there are any questions or concerns please do not hesitate to contact us. (2) Pressure ulcer of left heel: Code(s): L89.629 - Pressure ulcer of left heel, unspecified stage Qualifiers: Pressure injury stage: unspecified pressure injury stage Qualified Code(s): L89.629 - Pressure ulcer of left heel, unspecified stage Plan: Continue with alginate dressings to the left heel. We did discuss the importance of offloading. In addition we did discuss risk factor modification and the importance of good nutrition including protein intake. Thank you for allowing us to assist in his care. If there are any questions or concerns please do not hesitate to contact us. Coding Level of Care Code Est Pt Level 3 (10329) Diagnoses Status post below knee amputation of right lower extremity Z89.511 Pressure injury of skin of left heel, unspecified injury stage L89.629 Pressure injury stage: unspecified pressure injury stage
== END 2023-05-17 13:25 | disposition home or self-care (01) ==
PROVIDERS: PCP Family Medicine Geriatric Medicine; Visit Provider Surgery Vascular Surgery
DX: Z89.511 Acquired absence of right leg below knee (principal); L89.629 Pressure ulcer of left heel, unspecified stage
CPT/HCPCS: 99024

== ENCOUNTER → 2023-05-17 12:44 | Outpatient (BNVA) | payer MEDICARE, MEDICAID, SELFPAY | PROVIDERS: PCP Family Medicine Geriatric Medicine; Visit Provider Surgery Vascular Surgery | DX: Z47.81 Encounter for orthopedic aftercare following surgical amputation (principal); L89.629 Pressure ulcer of left heel, unspecified stage; Z89.511 Acquired absence of right leg below knee | CPT/HCPCS: 99212 ==

== ENCOUNTER 2023-05-31 13:12 | Outpatient (AMB) | payer MEDICARE, MEDICAID, SELFPAY ==
--- NOTE | 2023-05-31 13:19 | A.OFFVIS_ITS ---
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 Pt states that his bottom is hurting due to laying down. Wants note for use of aircraft body repairer for prosthetic Accompanied by: paralegal legal secretary Allergies No Known Allergies [No Known Allergies*] Allergy (Verified 05/31/23 13:24) HPI 2 week follow up stump check HPI Details Very pleasant 57-year-old gentleman presents for follow-up regarding amputation site. He appears to be doing extremely well with this. Right BKA stump appears well healed. He did dish in has a left heel pressure ulcer. Appears to be doing relatively well. [facility] Medical History (Updated 06/01/23 @ 13:07 by Guy Brown MD) PAD (peripheral artery disease) Anemia Diabetes type 2, controlled Eschar of heel Chronic kidney disease, stage 3 Acute on chronic anemia Morbid obesity Sleep apnea Colon cancer Colonic mass Migraine Anemia History of prostate cancer Fever of unknown origin Chronic anemia CKD (chronic kidney disease) Osteomyelitis Diabetic infection of left foot Diabetes Opioid use disorder Surgical History Status post below knee amputation of right lower extremity Hx of colectomy (01/20/23) S/P transmetatarsal amputation of foot Family History Mother No pertinent family history Social History Household Members: Spouse Household Members Other:: 2 Housing: Apartment Do you presently have visiting nurse or other home services: Yes Alcohol intake: never Patient Tobacco Use Status: Never used Tobacco Substance Use Type: Opiates Advance Directives Date on File: 01/11/23 service: No Current occupational status: disabled Review of Systems Const All systems reviewed & are unremarkable except as noted in HPI and below Reports no additional complaints ENT Reports Normal hearing present Card Denies chest pain, Denies chest pain at rest, Denies chest pain with activity and Denies pedal edema Resp Denies cough GI Denies abdominal pain Musc Denies abnormal gait, Denies muscle cramps and Denies radiating pain into limb Skin/Breast Denies skin ulcer and Denies wounds Neuro Reports Normal hearing present and Denies abnormal gait Psych Reports no additional complaints Physical Exam Const General: cooperative, healthy appearing and comfortable Orientation/consciousness: oriented to person, oriented to place and oriented to time HEENT Head: Yes normal to inspection Neck Neck: Yes normal visual inspection Carotids: no bruits Chest Chest palpation & inspection: normal inspection of the chest Resp Effort & Inspection: normal respiratory effort and able to speak in complete sentences Auscultation: clear to auscultation bilaterally, no crackles, no rales, no rhonchi and no wheezes Cardio Rate: regular rate Rhythm: regular rhythm Heart sounds: S1 normal heart sound present and S2 normal heart sound present Bruits: no carotid bruits Peripheral pulses: Peripheral pulses 2+ throughout GI Inspection: Yes normal to inspection Skin Other: Left heel pressure ulcer Wounds: wounds noted Hair: normal Neuro General: oriented to person, oriented to place and oriented to time Cranial nerves: Yes CN's II-XII intact bilaterally and Yes Normal hearing present Cognition (Neuro): normal cognition Motor exam (neuro): 5/5 motor strength present throughout Extrem Other: venous exam: No significant superficial varicosities or spider telangiectasias, minimal edema General: No clubbing, No cyanosis and No edema Psych Appearance: grossly normal Mental Status: mental status grossly normal Speech and movement: Normal speech and movement present Assessment & Plan Assessment & Plan (1) PAD (peripheral artery disease): Comment: 05/18/2022 - left anterior tibial plasty Code(s): I73.9 - Peripheral vascular disease, unspecified Plan: In short right BKA appears to be doing relatively well. Patient has left heel pressure ulcer. Will plan for surveillance follow-up in approximately 3 months time. Orders: Orders US arterial duplex LE LT 3 Months I73.9 - Peripheral vascular disease, unsp ecified Coding Level of Care Code Est Pt Level 4 (56628) Diagnoses PAD (peripheral artery disease) I73.9
== END 2023-05-31 13:44 | disposition home or self-care (01) ==
PROVIDERS: PCP Family Medicine Geriatric Medicine; Visit Provider Surgery Vascular Surgery
DX: I73.9 Peripheral vascular disease, unspecified (principal); Z89.511 Acquired absence of right leg below knee
CPT/HCPCS: 99024

== ENCOUNTER → 2023-05-31 13:12 | Outpatient (BNVA) | payer MEDICARE, MEDICAID, SELFPAY | PROVIDERS: PCP Family Medicine Geriatric Medicine; Visit Provider Surgery Vascular Surgery | DX: I73.9 Peripheral vascular disease, unspecified (principal) | CPT/HCPCS: 99212 ==

== ENCOUNTER 2023-06-16 13:13 | Outpatient (AMB) | payer MEDICARE, MEDICAID, SELFPAY ==
--- NOTE | 2023-06-16 13:16 | A.OFFVIS_ITS ---
Intake Intake Visit Reasons: Add-On BKA dehis/drainage Intake Note: Add-on for Right BKA stump for question of dehiscence/drainage from [place]. Pt states no changes, just has a pin-hole. Also complaints of Left heel ( has Left Transmet amp) states that pressure ulcer is wet. Both stumps are wrapped with dry guaze. Pt in wheelchair today. Accompanied by: Self / Same As Patient Allergies No Known Allergies [No Known Allergies*] Allergy (Verified 05/31/23 13:24) HPI Add-On BKA dehis/drainage HPI Details Very pleasant 57-year-old gentleman presents for follow-up regarding his right BKA. He is at a facility and they were concerned about the incision line and questionable dehiscence. He reports that there is no drainage no discomfort and he reports that it is completely closed. He now presents for stump check. [facility]LY [facility] Medical History PAD (peripheral artery disease) Anemia Diabetes type 2, controlled Eschar of heel Chronic kidney disease, stage 3 Acute on chronic anemia Morbid obesity Sleep apnea Colon cancer Colonic mass Migraine Anemia History of prostate cancer Fever of unknown origin Chronic anemia CKD (chronic kidney disease) Osteomyelitis Diabetic infection of left foot Diabetes Opioid use disorder Surgical History Status post below knee amputation of right lower extremity Hx of colectomy (01/20/23) S/P transmetatarsal amputation of foot Family History Mother No pertinent family history Social History Household Members: Spouse Household Members Other:: 2 Housing: Apartment Do you presently have visiting nurse or other home services: Yes Alcohol intake: never Patient Tobacco Use Status: Never used Tobacco Substance Use Type: Opiates Advance Directives Date on File: 01/11/23 service: No Current occupational status: disabled Review of Systems Const All systems reviewed & are unremarkable except as noted in HPI and below Reports no additional complaints ENT Reports Normal hearing present Card Denies chest pain, Denies chest pain at rest, Denies chest pain with activity and Denies pedal edema Resp Denies cough GI Denies abdominal pain Musc Denies abnormal gait, Denies muscle cramps and Denies radiating pain into limb Skin/Breast Denies skin ulcer and Denies wounds Neuro Reports Normal hearing present and Denies abnormal gait Psych Reports no additional complaints Physical Exam Const General: cooperative, healthy appearing and comfortable Orientation/consciousness: oriented to person, oriented to place and oriented to time HEENT Head: Yes normal to inspection Neck Neck: Yes normal visual inspection Carotids: no bruits Chest Chest palpation & inspection: normal inspection of the chest Resp Effort & Inspection: normal respiratory effort and able to speak in complete sentences Auscultation: clear to auscultation bilaterally, no crackles, no rales, no rhonchi and no wheezes Cardio Rate: regular rate Rhythm: regular rhythm Heart sounds: S1 normal heart sound present and S2 normal heart sound present Bruits: no carotid bruits Peripheral pulses: Peripheral pulses 2+ throughout GI Inspection: Yes normal to inspection Skin Other: Right BKA well-healed Left heel ulcer healing well as well Wounds: amputation site and wounds noted (Left heel) Hair: normal Neuro General: oriented to person, oriented to place and oriented to time Cranial nerves: Yes CN's II-XII intact bilaterally and Yes Normal hearing present Cognition (Neuro): normal cognition Motor exam (neuro): 5/5 motor strength present throughout Extrem Other: venous exam: No significant superficial varicosities or spider telangiectasias, minimal edema General: No clubbing, No cyanosis and No edema Psych Appearance: grossly normal Mental Status: mental status grossly normal Speech and movement: Normal speech and movement present Assessment & Plan Assessment & Plan (1) PAD (peripheral artery disease): Comment: 05/18/2022 - left anterior tibial plasty Code(s): I73.9 - Peripheral vascular disease, unspecified Plan: In short he had appears to be doing well. We will obtain noninvasive testing of the left lower extremity in continue monitor that he will closely. At the current time would recommend right lower extremity stump dry dressings. He will once again follow-up with us in approximately 1 months time. Thank you for allowing us to assist in his care. (2) Pressure ulcer of left heel: Code(s): L89.629 - Pressure ulcer of left heel, unspecified stage Qualifiers: Pressure injury stage: unspecified pressure injury stage Qualified Code(s): L89.629 - Pressure ulcer of left heel, unspecified stage Orders: Orders US arterial duplex LE LT 1 Month I73.9 - Peripheral vascular disease, unspecified Coding Level of Care Code Est Pt Level 4 (76816) Diagnoses PAD (peripheral artery disease) I73.9 Pressure injury of skin of left heel, unspecified injury stage L89.629 Pressure injury stage: unspecified pressure injury stage
== END 2023-06-16 13:53 | disposition home or self-care (01) ==
PROVIDERS: PCP Family Medicine Geriatric Medicine; Visit Provider Surgery Vascular Surgery
DX: I73.9 Peripheral vascular disease, unspecified (principal); L89.629 Pressure ulcer of left heel, unspecified stage
CPT/HCPCS: 99024

== ENCOUNTER → 2023-06-16 13:13 | Outpatient (BNVA) | payer MEDICARE, MEDICAID, SELFPAY | PROVIDERS: PCP Family Medicine Geriatric Medicine; Visit Provider Surgery Vascular Surgery | DX: I73.9 Peripheral vascular disease, unspecified (principal); L89.629 Pressure ulcer of left heel, unspecified stage | CPT/HCPCS: 99212 ==

== ENCOUNTER 2024-03-02 16:31 | Outpatient (REF) | payer MEDICARE, MEDICAID, SELFPAY ==
--- NOTE | ~2024-03-02 | CT_ITS ---
EXAMINATION: CT CHEST, ABDOMEN AND PELVIS WITHOUT CONTRAST CLINICAL INFORMATION: Colon cancer surveillance. COMPARISON: Prior CT examinations, most recently 01/11/2023. TECHNIQUE: Multidetector volumetric imaging was performed from the thoracic inlet through the pubic symphysis without intravenous contrast. Sagittal and coronal reformatted images were obtained on the technologist workstation. This CT examination was performed using dose optimization techniques as appropriate, variously including the following: *Automated exposure control. *Adjustment of mA and/or kV according to patient size (this includes techniques or standardized protocols for targeted exams where dose is matched to indication/reason for exam, i.e., extremities or head). *Use of iterative reconstruction technique. DLP: 943 mGy-cm. FINDINGS: CHEST: LUNGS: At the central left apex (5:83), a 4 mm noncalcified nodule is seen. This is new from the prior CT examination of the chest dated 12/22/2018. There is bilateral posterior basilar atelectasis, most pronounced in the right lower lobe, with air bronchograms. No associated focal airway obstruction is seen. There is no mass. No generalized increase is seen in peripheral interlobular septal markings. No generalized small airway thickening is seen. The central airways appear patent. MEDIASTINUM: The thyroid is unremarkable. There is no thoracic aortic aneurysm. There are mild atherosclerotic calcifications of the great vessel origins, thoracic aorta and coronary arteries. No mediastinal or hilar lymphadenopathy is seen. PERICARDIUM/PLEURA: There is a large right pleural effusion, and there is a small left pleural effusion. No pleural mass or thickening. CHEST WALL/AXILLA: Unremarkable. ABDOMEN/PELVIS: LIVER, GALLBLADDER, BILIARY TREE: The liver is normal in size, shape, and attenuation. In the anterior segment of the right hepatic lobe towards the dome of diaphragm, a 3.5 x 3.0 cm intermediate attenuation mass is seen, with precontrast Hounsfield value of 42.3 units. In hepatic segment 4A (3:11), a 1.6 x 1.5 cm mass is seen, with precontrast Hounsfield value of 41.6 units. Within hepatic segment 3 (3:22), a 1.0 cm low-attenuation mass is seen, with precontrast Hounsfield value of 41.9 units. Anteriorly within the hepatic tail (3:34), a 6.0 x 4.8 cm mass is seen, with precontrast Hounsfield value of 37.5 units. These nodules are new from 01/11/2023. No biliary ductal dilatation is present. There is layering milk of calcium within the gallbladder. No pericholecystic fluid or fat stranding is noted. PANCREAS: Unremarkable. SPLEEN: Unremarkable. ADRENAL GLANDS: Unremarkable. KIDNEYS AND URETERS: The kidneys are normal in size, shape, and attenuation. No hydronephrosis or hydroureter or calculi seen. No perinephric stranding. BLADDER: Unremarkable. GASTROINTESTINAL TRACT: There has been a prior partial right colectomy. There is a patent ileocolic anastomotic staple line. No obstruction, free intraperitoneal air or abscess is seen. ABDOMINAL WALL: No significant hernia is demonstrated. In the upper linea alba (3:31), a 1.5 x 1.3 cm soft tissue density nodule is newly seen. There is mild generalized anasarca. LYMPH NODES: Normal. VASCULAR: There is mild aortoiliac atherosclerotic calcification. No abdominal aortic aneurysm is seen. PELVIC VISCERA: Radiation seeds are seen within the prostate gland. The seminal vesicles are unremarkable. OSSEOUS STRUCTURES: There is multi-level thoracolumbar endplate and facet arthropathy. There has been a prior spinolaminectomy at L5. Please correlate with the patient's Past Surgical History. There are degenerative changes of the hips. No acute or aggressive osseous findings is noted. FREE FLUID: There is a small amount of low-attenuation free fluid adjacent to the liver, in particular the hepatic tail. CT/CT abdomen pelvis wo IV con IMPRESSION: 1. There is interim appearance of a 4 mm noncalcified nodule at the left apex. This is nonspecific, and continued attention on imaging follow-up is recommended, per Oncology protocol. 2. There are large right and small left pleural effusions. There is adjacent bibasilar compressive atelectasis, with air bronchograms. 3. No thoracic lymphadenopathy or pleural effusion is seen. 4. There are multiple low-attenuation hepatic lesions, described in detail above. These are suspicious for metastases. Further work-up may be indicated. 5. There is interim appearance of a 1.5 cm nodule in the upper linea alba. This is indeterminate, and as well further work-up may be indicated. 6. There has been a prior partial right colectomy. There is a patent ileocolic anastomotic staple line. 7. There is a small amount of perihepatic ascites. 8. There is multi-level thoracolumbar endplate and facet arthropathy. No acute or aggressive osseous abnormality is seen.
--- NOTE | 2024-03-21 14:18 | PM.EVENT ---
Message left for patient to call back about scheduling an appointment to discuss results of imaging.
== END 2024-03-02 16:32 | disposition home or self-care (01) ==
LOC: HO.CT 16:31
PROVIDERS: PCP Family Medicine Geriatric Medicine; Visit Provider Internal Medicine
DX: C18.9 Malignant neoplasm of colon, unspecified (principal)
CPT/HCPCS: 71250; 74176